=== PATIENT | male | born 1950 | race Caucasian/White ===

== ENCOUNTER 2017-08-27 18:15 | Inpatient (IN) | payer MEDICARE, BC ==
[2017-08-27] MEDS ORDERED: ACETAMINOPHEN TAB 500 MG TAB PO STA (18:42)
[2017-08-27] MEDS ORDERED: SODIUM CHLORIDE 0.9% 1,000 ML IV STA (18:42)
[2017-08-27] MEDS ORDERED: SODIUM CHLORIDE 0.9% 500 ML IV STA (18:42)
--- NOTE | 2017-08-27 18:50 | ED ---
General Adult HPI - General Source: patient, EMS, RN notes reviewed, old records reviewed Mode of arrival: EMS Limitations: no limitations <Dk Caraballo - Last Filed: 08/27/17 21:06> <Darwin Whaley - Last Filed: 08/27/17 22:52> - General Chief complaint: Fever Stated complaint: poss sepsis Time Seen by Provider: 08/27/17 18:22 - History of Present Illness Initial comments: Chief complaint and history of present illness this is a 66-year-old male brought to emergency by ambulance because is having difficulty getting up. He needed help getting out of his easy chair. His helped him. he needed her help to get to the toilet. He had difficulty getting off the toilet. EMS found him in the bathroom. He was not on the floor. The patient denies headache no chest pain no shortness of breath he did have a fever of 101.5. Denies any problems with urinating. (Dk Caraballo) - Related Data Home Medications Medication Instructions Recorded Confirmed Allopurinol [Zyloprim] 100 mg PO DAILY 04/22/15 08/27/17 Calcitriol [Rocaltrol] 0.25 mcg PO MOWEFR 04/22/15 08/27/17 Cholecalciferol [Vitamin D3] 5,000 unit PO DAILY 04/22/15 08/27/17 Gabapentin [Neurontin] 300 mg PO TID 04/22/15 08/27/17 Magnesium Oxide [Mag-Ox] 250 mg PO DAILY 04/22/15 08/27/17 Fish Oil/Dha/Epa [Fish Oil 1,200 1 cap PO DAILY 09/06/15 08/27/17 mg Fish Oil] HYDROcodone/APAP 10-325MG [[place] 1 tab PO TID PRN 09/06/15 08/27/17 10-325] Roxadustat 50mg-100mg 1 cap PO TUTHSA 09/06/15 08/27/17 Simvastatin [Zocor] 40 mg PO HS 09/06/15 08/27/17 Sodium Polystyrene Sulfon/Sorb 2 tbsp PO DAILY 09/06/15 08/27/17 [Kionex 15 gm/60 ml Suspension] Ferrous Sulfate [Iron (65 MG 325 mg PO DAILY 10/23/15 08/27/17 Elemental)] Insulin Glargine,Hum.rec.anlog 30 units SQ 1200 05/04/16 08/27/17 [[place]] hydrALAZINE HCL [Apresoline] 100 mg PO TID 05/04/16 08/27/17 Furosemide [Lasix] 40 mg PO BID 07/22/17 08/27/17 Aspirin 325 mg PO DAILY 08/27/17 08/27/17 amLODIPine [Norvasc] 5 mg PO BID 08/27/17 08/27/17 Allergies Allergy/AdvReac Type Severity Reaction Status Date / Time aspirin [From Anacin] Allergy Rash/Hives Verified 08/27/17 18:51 erythromycin base Allergy Unknown Verified 08/27/17 18:51 sulfamethoxazole AdvReac affects Verified 08/27/17 18:51 [From Bactrim] kidneys trimethoprim [From Bactrim] AdvReac Unknown Verified 08/27/17 18:51 Review of Systems ROS Other: All systems not noted in ROS Statement are negative. <Dk Caraballo - Last Filed: 08/27/17 21:06> ROS Other: All systems not noted in ROS Statement are negative. <Darwin Whaley - Last Filed: 08/27/17 22:52> ROS Statement: Those systems with pertinent positive or pertinent negative responses have been documented in the HPI. review of systems. Patient denies any headache denies difficulty urinating or bowel movements. The fever started yesterday. Denies getting a flu shot this year. Denies chest pain or shortness of breath. Just weakness. All systems reviewedPast medical problem CHF, COPD, insulin-dependent diabetes mellitus. Hyperlipidemia, hypertension osteoarthritis. Chronic renal disease. Skin disorder of unknown type. Sleep apnea with CPAP. History of gout and H. pylori. The patient's surgeries appendectomy R catheterization with one stent bilateral cataracts. Family history noncontributory. ALLERGIES to aspirin, erythromycin base, sulfamethoxazole. Nonsmoker nondrinker. (Dk Caraballo) Past Medical History Past Medical History: Heart Failure, COPD, Diabetes Mellitus, Hyperlipidemia, Hypertension, Osteoarthritis (OA), Renal Disease, Skin Disorder, Sleep Apnea/ CPAP/BIPAP Additional Past Medical History / Comment(s): Hx. GOUT, H PYLORI, ANEMIA, current umbilical HERNIA, kidneys functioning @40% per pt. wound left lower leg History of Any Multi-Drug Resistant Organisms: None Reported Date of last positivie culture/infection: 03/10/2014-C-diff MDRO Source:: Stool Past Surgical History: Appendectomy, Heart Catheterization With Stent Additional Past Surgical History / Comment(s): CATARACTS DANIELLE, HAD TESTICULAR SX FOR VARICOSED VEINS, PICC LINE SINCE REMOVED Past Anesthesia/Blood Transfusion Reactions: No Reported Reaction Date of Last Stent Placement:: 10/2015 Past Psychological History: No Psychological Hx Reported Smoking Status: Never smoker Past Alcohol Use History: None Reported Past Drug Use History: None Reported - Past Family History Father Family Medical History: COPD Additional Family Medical History / Comment(s): AT AGE 64- EMPHYSEMA(SMOKER ) Mother Family Medical History: Diabetes Mellitus, Hypertension Additional Family Medical History / Comment(s): LUPUS, LEG AMPUTATED. MOM IN HER 60'S <Dk Caraballo - Last Filed: 08/27/17 21:06> General Exam Limitations: no limitations <Dk Caraballo - Last Filed: 08/27/17 21:06> General appearance: alert, in no apparent distress Head exam: Present: atraumatic, normocephalic, normal inspection Eye exam: Present: normal appearance, PERRL, EOMI. Absent: scleral icterus, conjunctival injection, periorbital swelling ENT exam: Present: normal exam, mucous membranes moist Neck exam: Present: normal inspection. Absent: tenderness, meningismus, lymphadenopathy Respiratory exam: Present: normal lung sounds bilaterally. Absent: respiratory distress, wheezes, rales, rhonchi, stridor Cardiovascular Exam: Present: regular rate, normal rhythm, normal heart sounds. Absent: systolic murmur, diastolic murmur, rubs, gallop, clicks GI/Abdominal exam: Present: soft, tenderness (Epigastric), normal bowel sounds. Absent: distended, guarding, rebound, rigid Extremities exam: Present: normal inspection, full ROM, normal capillary refill. Absent: tenderness, pedal edema, joint swelling, calf tenderness Back exam: Present: normal inspection Neurological exam: Present: alert, oriented X3, CN II-XII intact Psychiatric exam: Present: normal affect, normal mood Skin exam: Present: warm, dry, intact, normal color. Absent: rash <Darwin Whaley - Last Filed: 08/27/17 22:52> - General Exam Comments Initial Comments: General: The patient is awake and alert, brought in by EMS because of general weakness. His 's help to get out of a chair. No specific complaints. Fever 2 days. Vital signs temperature 101.5 pulse 104 respiratory rate 18 pulse ox 94% on room air blood pressure 161/69. Eye: Pupils are equal, round and reactive to light, extra-ocular movements are intact ; there is normal conjunctiva bilaterally. No signs of icterus. Ears, nose, mouth and throat: There are moist mucous membranes and no oral lesions. Neck: The neck is supple, there is no tenderness , no anterior cervical lymphadenopathy. Cardiovascular: tachycardic heart rate, 104.. holosystolic murmur. Patient states this is a known entity. Respiratory: Lungs are clear to auscultation, respirations are non-labored, breath sounds are equal. No wheezes, stridor, rales, or rhonchi. Gastrointestinal: Soft, non-distended, non-tender abdomen without masses or organomegaly noted. There is no rebound or guarding present. No CVA tenderness. Bowel sounds are unremarkable.morbidly obese at 5ft 10in , 300 pounds Back: denies any rashes but he does have his left leg wrapped. Not on any antibiotics currently. Chronic cellulitis lower extremities in the past Musculoskeletal: Normal ROM, no tenderness, pedal edema There is no calf tenderness or swelling. Sensation intact. Pulses equal bilaterally 2+. Neurological: complains of weakness but is no evidence of any focal or lateralizing findings. All the move upper and lower extremities while in bed. Answer questions appropriately. But stated he was weak at home and needed his 's assistance to get out of the chair. Skin: skin warm no rash. Psychiatric: Cooperative, appropriate mood & affect, normal judgment. (Dk Caraballo) Course <Dk Caraballo - Last Filed: 08/27/17 21:06> <Darwin Whaley - Last Filed: 08/27/17 22:52> Vital Signs 08/27/17 08/27/17 08/27/17 18:16 19:59 20:00 Temperature 101.5 F H 100.2 F H 101.9 F H Pulse Rate 104 H 92 Respiratory 18 18 Rate Blood Pressure 161/69 107/51 O2 Sat by Pulse 94 L 96 Oximetry - Reevaluation(s) Reevaluation #1: 08/27/17 22:50 Patient given antibiotics, fever control, IV hydration (Darwin Whaley) Medical Decision Making - Lab Data Result diagrams: 08/27/17 19:05 08/27/17 19:05 <Dk Caraballo - Last Filed: 08/27/17 21:06> - Lab Data Result diagrams: 08/27/17 19:05 08/27/17 19:05 - Radiology Data Radiology results: report reviewed (Chest x-ray negative ultrasound positive cholecystitis), image reviewed <Darwin Whaley - Last Filed: 08/27/17 22:52> - Medical Decision Making Medical decision making; this is a 66-year-old male with difficulty getting out of his chair. His helped him to the toilet and had difficulty getting off the toilet. He's had a fever today. EMS brought him to the emergency room. Reports this has happened in the past. The patient's 5 foot 10 and weighs 300 pounds. Chest x-ray done AP and lateral view and reviewed by radiologist and his final impression is. No acute process. As read by Dr. Master Carlson Patient's labs show white count of 15,000 hemoglobin 11 hematocrit 34, urine clean no signs of infection. The patient's kidney function shows a BUN of 70 threatening 2.2 , GFR 30. Glucose 203. Flu a be negative. The patient's AST is elevated to 30 ALT 120 total bilirubin 1.9. These are significantly more elevated than they were one month ago. The patient have an ultrasound of the right upper quadrant. The patient will also started on Rocephin. Final disposition by Dr. Ortega (Dk Caraballo) 66-year-old ER for fever. Patient with positive cholecystitis. Patient to be admitted for gallbladder and surgical evaluation (Darwin Whaley) - Lab Data Lab Results 08/27/17 08/27/17 08/27/17 Range/Units 19:05 19:05 19:05 WBC 15.2 H (3.8-10.6) k/uL RBC 3.64 L (4.30-5.90) m/uL Hgb 11.2 L (13.0-17.5) gm/dL Hct 34.8 L (39.0-53.0) % MCV 95.7 (80.0-100.0) fL MCH 30.9 (25.0-35.0) pg MCHC 32.3 (31.0-37.0) g/dL RDW 14.5 (11.5-15.5) % Plt Count 204 (150-450) k/uL Neutrophils % 93 % Lymphocytes % 2 % Monocytes % 4 % Eosinophils % 1 % Basophils % 0 % Neutrophils # 14.2 H (1.3-7.7) k/uL Lymphocytes # 0.2 L (1.0-4.8) k/uL Monocytes # 0.6 (0-1.0) k/uL Eosinophils # 0.1 (0-0.7) k/uL Basophils # 0.0 (0-0.2) k/uL Sodium 139 (137-145) mmol/L Potassium 4.5 (3.5-5.1) mmol/L Chloride 100 (98-107) mmol/L Carbon Dioxide 28 (22-30) mmol/L Anion Gap 11 mmol/L BUN 70 H (9-20) mg/dL Creatinine 2.20 H (0.66-1.25) mg/dL Est GFR (MDRD) Af Amer 36 (>60 ml/min/1.73 sqM) Est GFR (MDRD) Non-Af 30 (>60 ml/min/1.73 sqM) Glucose 203 H (74-99) mg/dL Plasma Lactic Acid Anthony (0.7-2.0) mmol/L Calcium 9.3 (8.4-10.2) mg/dL Total Bilirubin 1.9 H (0.2-1.3) mg/dL AST 237 H (17-59) U/L ALT 121 H (21-72) U/L Alkaline Phosphatase 132 H (38-126) U/L Total Protein 6.7 (6.3-8.2) g/dL Albumin 3.8 (3.5-5.0) g/dL Urine Color Urine Appearance (Clear) Urine pH (5.0-8.0) Ur Specific [place] (1.001-1.035) Urine Protein (Negative) Urine Glucose (UA) (Negative) Urine Ketones (Negative) Urine Blood (Negative) Urine Nitrite (Negative) Urine Bilirubin (Negative) Urine Urobilinogen (<2.0) mg/dL Ur Leukocyte Esterase (Negative) Urine WBC (0-5) /hpf Urine Bacteria (None) /hpf Influenza Type A RNA Not Detected (Not Detectd) Influenza Type B (PCR) Not Detected (Not Detectd) 08/27/17 08/27/17 Range/Units 19:05 20:10 WBC (3.8-10.6) k/uL RBC (4.30-5.90) m/uL Hgb (13.0-17.5) gm/dL Hct (39.0-53.0) % MCV (80.0-100.0) fL MCH (25.0-35.0) pg MCHC (31.0-37.0) g/dL RDW (11.5-15.5) % Plt Count (150-450) k/uL Neutrophils % % Lymphocytes % % Monocytes % % Eosinophils % % Basophils % % Neutrophils # (1.3-7.7) k/uL Lymphocytes # (1.0-4.8) k/uL Monocytes # (0-1.0) k/uL Eosinophils # (0-0.7) k/uL Basophils # (0-0.2) k/uL Sodium (137-145) mmol/L Potassium (3.5-5.1) mmol/L Chloride (98-107) mmol/L Carbon Dioxide (22-30) mmol/L Anion Gap mmol/L BUN (9-20) mg/dL Creatinine (0.66-1.25) mg/dL Est GFR (MDRD) Af Amer (>60 ml/min/1.73 sqM) Est GFR (MDRD) Non-Af (>60 ml/min/1.73 sqM) Glucose (74-99) mg/dL Plasma Lactic Acid [place] 1.3 (0.7-2.0) mmol/L Calcium (8.4-10.2) mg/dL Total Bilirubin (0.2-1.3) mg/dL AST (17-59) U/L ALT (21-72) U/L Alkaline Phosphatase (38-126) U/L Total Protein (6.3-8.2) g/dL Albumin (3.5-5.0) g/dL Urine Color Yellow Urine Appearance Clear (Clear) Urine pH 5.5 (5.0-8.0) Ur Specific [place] 1.010 (1.001-1.035) Urine Protein 1+ H (Negative) Urine Glucose (UA) Trace H (Negative) Urine Ketones Negative (Negative) Urine Blood Negative (Negative) Urine Nitrite Negative (Negative) Urine Bilirubin Negative (Negative) Urine Urobilinogen <2.0 (<2.0) mg/dL Ur Leukocyte Esterase Negative (Negative) Urine WBC <1 (0-5) /hpf Urine Bacteria Rare H (None) /hpf Influenza Type A RNA (Not Detectd) Influenza Type B (PCR) (Not Detectd) Disposition <Dk Caraballo - Last Filed: 08/27/17 21:06> <Darwin Whaley - Last Filed: 08/27/17 22:52> Clinical Impression: Renal insufficiency, Diabetes mellitus, Acute cholecystitis, Cellulitis Disposition: ADMITTED IP TO THIS HOSP Condition: Fair Referrals: Papo Ford MD [Primary Care Provider] - 1-2 days
[2017-08-27 19:20] LABS: Basophils % (A) 0 %; Eosinophils # (A) 0.1 k/uL (0-0.7); Eosinophils % (A) 1 %; HCT 34.8 % (39.0-53.0); HGB 11.2 gm/dL (13.0-17.5); Lymphocytes # (A) 0.2 k/uL (1.0-4.8); Lymphocytes % (A) 2 %; MCH 30.9 pg (25.0-35.0); MCHC 32.3 g/dL (31.0-37.0); MCV 95.7 fL (80.0-100.0); Monocytes # (A) 0.6 k/uL (0-1.0); Monocytes % (A) 4 %; Neutrophils # (A) 14.2 k/uL (1.3-7.7); Neutrophils % (A) 93 %; Platelet Count 204 k/uL (150-450); RBC 3.64 m/uL (4.30-5.90); RDW 14.5 % (11.5-15.5); WBC 15.2 k/uL (3.8-10.6)
[2017-08-27 19:29] LABS: Albumin 3.8 g/dL (3.5-5.0); Calcium 9.3 mg/dL (8.4-10.2); Potassium 4.5 mmol/L (3.5-5.1); Total Bilirubin 1.9 mg/dL (0.2-1.3); Total Protein 6.7 g/dL (6.3-8.2)
--- NOTE | 2017-08-27 19:31 | XR ---
EXAMINATION: XR chest 2V DATE AND TIME: 08/27/2017 7:22 PM ORDERING PROVIDER: Dk Caraballo MD CLINICAL INDICATION: fever, weakness TECHNIQUE: AP and lateral COMPARISON: 05/04/2016 DESCRIPTION: The lungs are clear. The pleural spaces are negative. The cardiac silhouette is not enlarged. The mediastinal and pleural silhouettes are unremarkable. The skeletal structures are intact without focal findings. The soft tissues are unremarkable. IMPRESSION: NO ACUTE PROCESS.
[2017-08-27 20:27] LABS: Appearance,Urine Clear (Clear); Bacteria,Urine Rare /hpf; Bilirubin,Urine Negative (Negative); Blood,Urine Negative (Negative); Color,Urine Yellow; Glucose,Urine (UA) Trace (Negative); Ketones,Urine Negative (Negative); Leukocyte Esterase,Urine Negative (Negative); PH, Urine 5.5 (5.0-8.0); Protein,Urine 1+ (Negative); Urobilinogen,Urine <2.0 mg/dL (<2.0); WBC,Urine <1 /hpf (0-5)
[2017-08-27] MEDS ORDERED: PIPERACILLIN-TAZOBACTAM 3.375 GM in DEXTROSE/WATER 1 50ML.BAG IVPB STA (20:44)
[2017-08-27] MEDS ORDERED: cefTRIAXone IN SWFI 1,000 MG/10 ML SYRINGE IVP STA (20:59)
[2017-08-27] MEDS ORDERED: cefTRIAXone 1,000 MG VIAL (IM USE) IM STA (21:05)
[2017-08-27] MEDS ORDERED: AMPICILLIN-SULBACTAM 3 GM in SODIUM CHLORIDE 0.9% 100 ML IVPB STA (22:05)
--- NOTE | 2017-08-27 22:20 | US ---
EXAMINATION TYPE: US abdomen limited DATE OF EXAM: 08/27/2017 COMPARISON: NONE CLINICAL HISTORY: elevated liver enzymes. Elevated liver enzymes EXAM MEASUREMENTS: Liver Length: 16.6 cm Gallbladder Wall: 0.7 cm CBD: 0.4 cm Right Kidney: 10.6 x 5.2 x 5.3 cm *Technical limitations due to patient's body habitus and large amount of overlying bowel content Pancreas: Obscured by bowel gas Liver: visualized portions appear wnl Gallbladder: hydropic = 13.2cm, stone = 1.3cm, sludge, thickened GB wall Evidence for sonographic Mata's sign: no CBD: appears wnl as visualized Right Kidney: cystic areas lower pole, largest = 1.2 x 1.0 x 1.6cm IMPRESSION: Dilated gallbladder with gallstones. No dilated ducts. Findings are consistent with acute and chronic cholecystitis.
[2017-08-27] MEDS ORDERED: IBUPROFEN 600 MG TAB PO STA (23:15)
[2017-08-28 03:58] LABS: Hepatitis A Antibody IgM Non-Reactive (Non-Reactive); Hepatitis B Core IgM Reactive (Non-Reactive)
[2017-08-28] MEDS: AMPICILLIN-SULBACTAM 3 GM in SODIUM CHLORIDE 0.9% 100 ML IVPB SCH ×3 (06:00→18:05)
[2017-08-28] MEDS ORDERED: HYDROmorphone 0.5 MG/0.5 ML SYRINGE IVP STA (06:10)
[2017-08-28 07:41] LABS: Glucose,Whole Blood 141 mg/dL (75-99)
[2017-08-28 07:59] LABS: HCT 32.6 % (39.0-53.0); HGB 10.4 gm/dL (13.0-17.5); MCH 30.4 pg (25.0-35.0); MCHC 31.9 g/dL (31.0-37.0); MCV 95.5 fL (80.0-100.0); Mean Platelet Volume 7.2; Platelet Count 181 k/uL (150-450); RBC 3.41 m/uL (4.30-5.90); RDW 14.5 % (11.5-15.5); WBC 15.3 k/uL (3.8-10.6)
[2017-08-28 08:04] LABS: INR 1.2 (<1.2)
[2017-08-28 08:05] LABS: Partial Thromboplastin Time 23.9 sec (22.0-30.0); Prothrombin Time 11.4 sec (9.0-12.0)
[2017-08-28 08:24] LABS: Albumin 3.3 g/dL (3.5-5.0); Potassium 4.4 mmol/L (3.5-5.1); Total Bilirubin 2.8 mg/dL (0.2-1.3)
--- NOTE | 2017-08-28 09:02 | P.GSHP ---
History of Present Illness H&P Date: 08/28/17 Chief Complaint: Abdominal pain and fever The patient is a 66-year-old man who went to the emergency room Yesterday because he was having trouble getting up. He had not felt well for about 2 weeks. He's had some vague abdominal discomfort. He's also had a fever to 101 or 102 at home. The urine has been dark.. No nausea or vomiting. No previous gallbladder problems. No blood in the stool or dark tarry stool. No acholic stool. He's being followed up as outpatient in the wound clinic due to a nonhealing ulcer. - Review of Systems All systems: negative - Constitutional Constitutional: Reports fatigue, Reports fever, Reports lethargy - Gastrointestinal Comment: Umbilical hernia present for many years Gastrointestinal: Reports as per HPI Past Medical History Past Medical History: Heart Failure, COPD, Diabetes Mellitus, Hyperlipidemia, Hypertension, Osteoarthritis (OA), Renal Disease, Skin Disorder, Sleep Apnea/ CPAP/BIPAP Additional Past Medical History / Comment(s): Hx. GOUT, H PYLORI, ANEMIA, umbilical HERNIA, nonhealing ulcer History of Any Multi-Drug Resistant Organisms: None Reported Date of last positivie culture/infection: 03/10/2014-C-diff MDRO Source:: Stool Past Surgical History: Appendectomy, Heart Catheterization With Stent Additional Past Surgical History / Comment(s): CATARACTS DANIELLE, HAD TESTICULAR SX FOR VARICOSED VEINS, PICC LINE SINCE REMOVED Past Anesthesia/Blood Transfusion Reactions: No Reported Reaction Date of Last Stent Placement:: 10/2015 Past Psychological History: No Psychological Hx Reported Additional Psychological History / Comment(s): pt lives at home with his , works at [employer]. never served in the [employer] services. Smoking Status: Never smoker Past Alcohol Use History: None Reported Additional Past Alcohol Use History / Comment(s): Patient has been a lifelong nonsmoker. He denies any medical marijuana, marijuana, street drug use. He denies any alcohol abuse. Patient lives at home with his . They are in a second floor. apartment. No service no recent travel. Past Drug Use History: None Reported - Past Family History Father Family Medical History: COPD Additional Family Medical History / Comment(s): AT AGE 64- EMPHYSEMA(SMOKER ) Mother Family Medical History: Diabetes Mellitus, Hypertension Additional Family Medical History / Comment(s): LUPUS, LEG AMPUTATED. MOM IN HER 60'S Medications and Allergies Home Medications Medication Instructions Recorded Confirmed Type Allopurinol [Zyloprim] 100 mg PO DAILY 04/22/15 08/27/17 History Calcitriol [Rocaltrol] 0.25 mcg PO MOWEFR 04/22/15 08/27/17 History Cholecalciferol [Vitamin D3] 5,000 unit PO DAILY 04/22/15 08/27/17 History Gabapentin [Neurontin] 300 mg PO TID 04/22/15 08/27/17 History Magnesium Oxide [Mag-Ox] 250 mg PO DAILY 04/22/15 08/27/17 History Fish Oil/Dha/Epa [Fish Oil 1,200 1 cap PO DAILY 09/06/15 08/27/17 History mg Fish Oil] HYDROcodone/APAP 10-325MG [Dell 1 tab PO TID PRN 09/06/15 08/27/17 History 10-325] Roxadustat 50mg-100mg 1 cap PO TUTHSA 09/06/15 08/27/17 History Simvastatin [Zocor] 40 mg PO HS 09/06/15 08/27/17 History Sodium Polystyrene Sulfon/Sorb 2 tbsp PO DAILY 09/06/15 08/27/17 History [Kionex 15 gm/60 ml Suspension] Ferrous Sulfate [Iron (65 MG 325 mg PO DAILY 10/23/15 08/27/17 History Elemental)] Insulin Glargine,Hum.rec.anlog 30 units SQ 1200 05/04/16 08/27/17 History [Ronny [place]] hydrALAZINE HCL [Apresoline] 100 mg PO TID 05/04/16 08/27/17 History Furosemide [Lasix] 40 mg PO BID 07/22/17 08/27/17 History Aspirin 325 mg PO DAILY 08/27/17 08/27/17 History amLODIPine [Norvasc] 5 mg PO BID 08/27/17 08/27/17 History Allergies Allergy/AdvReac Type Severity Reaction Status Date / Time aspirin [From Anacin] Allergy Rash/Hives Verified 08/27/17 18:51 erythromycin base Allergy Unknown Verified 08/27/17 18:51 sulfamethoxazole AdvReac affects Verified 08/27/17 18:51 [From Bactrim] kidneys trimethoprim [From Bactrim] AdvReac Unknown Verified 08/27/17 18:51 Surgical - Exam Osteopathic Statement: *. No significant issues noted on an osteopathic structural exam other than those noted in the History and Physical/Consult. Vital Signs Temp Pulse Resp BP Pulse Ox 101.5 F H 104 H 18 161/69 94 L 08/27/17 18:16 08/27/17 18:16 08/27/17 18:16 08/27/17 18:16 08/27/17 18:16 - General well developed, well nourished, no distress - Eyes normal ocular movement, no icteric - ENT normal pinna, normal nares, normal mucosa - Neck trachea midline - Respiratory normal respiratory effort, clear to auscultation - Cardiovascular Rhythm: regular - Abdomen Abdomen: soft, tender (Mild right upper quadrant), bowel sounds Hernia: umbilical (Large nonreducible) - Neurologic no disoriented, no combative - Psychiatric oriented to time, oriented to person, oriented to place, speech is normal, memory intact Results - Labs 08/28/17 07:08 08/28/17 07:08 Abnormal Lab Results - Last 24 Hours (Table) 08/27/17 08/27/17 08/27/17 Range/Units 19:05 19:05 19:05 WBC 15.2 H (3.8-10.6) k/uL RBC 3.64 L (4.30-5.90) m/uL Hgb 11.2 L (13.0-17.5) gm/dL Hct 34.8 L (39.0-53.0) % Neutrophils # 14.2 H (1.3-7.7) k/uL Lymphocytes # 0.2 L (1.0-4.8) k/uL INR (<1.2) BUN 70 H (9-20) mg/dL Creatinine 2.20 H (0.66-1.25) mg/dL Glucose 203 H (74-99) mg/dL POC Glucose (mg/dL) (75-99) mg/dL Total Bilirubin 1.9 H (0.2-1.3) mg/dL AST 237 H (17-59) U/L ALT 121 H (21-72) U/L Alkaline Phosphatase 132 H (38-126) U/L Total Protein (6.3-8.2) g/dL Albumin (3.5-5.0) g/dL Urine Protein (Negative) Urine Glucose (UA) (Negative) Urine Bacteria (None) /hpf Hep B Core IgM Ab Reactive H (Non-Reactive) 08/27/17 08/28/17 08/28/17 Range/Units 20:10 07:08 07:08 WBC 15.3 H (3.8-10.6) k/uL RBC 3.41 L (4.30-5.90) m/uL Hgb 10.4 L (13.0-17.5) gm/dL Hct 32.6 L (39.0-53.0) % Neutrophils # (1.3-7.7) k/uL Lymphocytes # (1.0-4.8) k/uL INR (<1.2) BUN 62 H (9-20) mg/dL Creatinine 2.14 H (0.66-1.25) mg/dL Glucose 143 H (74-99) mg/dL POC Glucose (mg/dL) (75-99) mg/dL Total Bilirubin 2.8 H (0.2-1.3) mg/dL AST 162 H (17-59) U/L ALT 137 H (21-72) U/L Alkaline Phosphatase (38-126) U/L Total Protein 6.0 L (6.3-8.2) g/dL Albumin 3.3 L (3.5-5.0) g/dL Urine Protein 1+ H (Negative) Urine Glucose (UA) Trace H (Negative) Urine Bacteria Rare H (None) /hpf Hep B Core IgM Ab (Non-Reactive) 08/28/17 08/28/17 Range/Units 07:08 07:39 WBC (3.8-10.6) k/uL RBC (4.30-5.90) m/uL Hgb (13.0-17.5) gm/dL Hct (39.0-53.0) % Neutrophils # (1.3-7.7) k/uL Lymphocytes # (1.0-4.8) k/uL INR 1.2 H (<1.2) BUN (9-20) mg/dL Creatinine (0.66-1.25) mg/dL Glucose (74-99) mg/dL POC Glucose (mg/dL) 141 H (75-99) mg/dL Total Bilirubin (0.2-1.3) mg/dL AST (17-59) U/L ALT (21-72) U/L Alkaline Phosphatase (38-126) U/L Total Protein (6.3-8.2) g/dL Albumin (3.5-5.0) g/dL Urine Protein (Negative) Urine Glucose (UA) (Negative) Urine Bacteria (None) /hpf Hep B Core IgM Ab (Non-Reactive) Microbiology - Last 24 Hours (Table) 08/27/17 20:10 Urine Culture - Preliminary Urine,Catheterized Diabetes panel 08/27/17 08/28/17 Range/Units 19:05 07:08 Sodium 139 141 (137-145) mmol/L Potassium 4.5 4.4 (3.5-5.1) mmol/L Chloride 100 105 (98-107) mmol/L Carbon Dioxide 28 25 (22-30) mmol/L BUN 70 H 62 H (9-20) mg/dL Creatinine 2.20 H 2.14 H (0.66-1.25) mg/dL Glucose 203 H 143 H (74-99) mg/dL Calcium 9.3 9.0 (8.4-10.2) mg/dL AST 237 H 162 H (17-59) U/L ALT 121 H 137 H (21-72) U/L Alkaline Phosphatase 132 H 126 (38-126) U/L Total Protein 6.7 6.0 L (6.3-8.2) g/dL Albumin 3.8 3.3 L (3.5-5.0) g/dL Calcium panel 08/27/17 08/28/17 Range/Units 19:05 07:08 Calcium 9.3 9.0 (8.4-10.2) mg/dL Albumin 3.8 3.3 L (3.5-5.0) g/dL Pituitary panel 08/27/17 08/28/17 Range/Units 19:05 07:08 Sodium 139 141 (137-145) mmol/L Potassium 4.5 4.4 (3.5-5.1) mmol/L Chloride 100 105 (98-107) mmol/L Carbon Dioxide 28 25 (22-30) mmol/L BUN 70 H 62 H (9-20) mg/dL Creatinine 2.20 H 2.14 H (0.66-1.25) mg/dL Glucose 203 H 143 H (74-99) mg/dL Calcium 9.3 9.0 (8.4-10.2) mg/dL Adrenal panel 08/27/17 08/28/17 Range/Units 19:05 07:08 Sodium 139 141 (137-145) mmol/L Potassium 4.5 4.4 (3.5-5.1) mmol/L Chloride 100 105 (98-107) mmol/L Carbon Dioxide 28 25 (22-30) mmol/L BUN 70 H 62 H (9-20) mg/dL Creatinine 2.20 H 2.14 H (0.66-1.25) mg/dL Glucose 203 H 143 H (74-99) mg/dL Calcium 9.3 9.0 (8.4-10.2) mg/dL Total Bilirubin 1.9 H 2.8 H (0.2-1.3) mg/dL AST 237 H 162 H (17-59) U/L ALT 121 H 137 H (21-72) U/L Alkaline Phosphatase 132 H 126 (38-126) U/L Total Protein 6.7 6.0 L (6.3-8.2) g/dL Albumin 3.8 3.3 L (3.5-5.0) g/dL - Imaging US - abdomen: report reviewed Assessment and Plan (1) Acute cholecystitis Current Visit: Yes Status: Acute Code(s): K81.0 - ACUTE CHOLECYSTITIS SNOMED Code(s): 40451619 (2) Umbilical hernia without obstruction and without gangrene Current Visit: Yes Status: Acute Code(s): K42.9 - UMBILICAL HERNIA WITHOUT OBSTRUCTION OR GANGRENE SNOMED Code(s): 8814375 (3) Obesity, Class III, BMI 40-49.9 (morbid obesity) Current Visit: No Status: Acute Code(s): E66.01 - MORBID (SEVERE) OBESITY DUE TO EXCESS CALORIES SNOMED Code(s): 530972352 (4) Pulmonary hypertension due to COPD Current Visit: No Status: Acute Code(s): I27.2 - OTHER SECONDARY PULMONARY HYPERTENSION * DO NOT USE * SNOMED Code(s): 248163818 (5) Renal failure Current Visit: No Status: Acute Code(s): N19 - UNSPECIFIED KIDNEY FAILURE SNOMED Code(s): 14546092 (6) Venous insufficiency of left leg Current Visit: No Status: Acute Code(s): I87.2 - VENOUS INSUFFICIENCY ( CHRONIC) (PERIPHERAL) SNOMED Code(s): 498307342 (7) Hepatitis B core antibody positive Current Visit: Yes Status: Acute Code(s): R76.8 - OTHER SPECIFIED ABNORMAL IMMUNOLOGICAL FINDINGS IN SERUM SNOMED Code(s): 934329084 (8) Diabetes mellitus Current Visit: Yes Status: Acute Code(s): E11.9 - TYPE 2 DIABETES MELLITUS WITHOUT COMPLICATIONS SNOMED Code(s): 53682543 Plan: We'll continue the IV antibiotics today. Medicine is been consulted for medical clearance for surgery. DVT and ulcer prophylaxis. Control blood sugars. Will likely need further evaluation of the hepatitis B core antigen positivity
[2017-08-28 11:48] LABS: Glucose,Whole Blood 150 mg/dL (75-99)
[2017-08-28] MEDS: ENOXAPARIN 40 MG/0.4 ML SYRINGE SQ SCH (13:18)
[2017-08-28] MEDS ORDERED: ASPIRIN 325 MG TAB PO SCH (14:30)
[2017-08-28] MEDS: hydrALAZINE HCL 50 MG TAB PO SCH ×2 (15:42→19:46)
[2017-08-28] MEDS: MAGNESIUM OXIDE 400 MG TAB PO SCH (15:42)
[2017-08-28] MEDS: GABAPENTIN 300 MG CAP PO SCH ×2 (15:42→19:46)
[2017-08-28] MEDS: HYDROcodone/APAP 10-325MG 1 EACH TAB PO PRN (15:42)
[2017-08-28] MEDS: amLODIPine 5 MG TAB PO SCH ×2 (15:43→19:46)
[2017-08-28] MEDS: ALLOPURINOL 100 MG TAB PO SCH (15:43)
[2017-08-28] MEDS: [UNRECOGNIZED DRUG - OTHER] PO SCH (15:45)
[2017-08-28] MEDS: INSULIN DETEMIR 100 UNIT/ML 10 ML VIAL SQ SCH (15:45)
[2017-08-28] MEDS: SODIUM POLYSTYRENE SULFONATE 15 GM/60 ML BOTTLE PO SCH (15:45)
[2017-08-28] MEDS ORDERED: FUROSEMIDE 40 MG TAB PO SCH (16:00)
[2017-08-28 17:13] LABS: Glucose,Whole Blood 163 mg/dL (75-99)
[2017-08-28 17:29] LABS: Hemoglobin A1C 8.4 % (4.0-6.0)
[2017-08-28] MEDS: ATORVASTATIN 20 MG TAB PO SCH (19:46)
[2017-08-28 20:36] LABS: Glucose,Whole Blood 135 mg/dL (75-99)
[2017-08-28] MEDS: LORATADINE 10 MG TAB PO PRN (21:19)
--- NOTE | 2017-08-28 21:28 | P.HPIM ---
History of Present Illness H&P Date: 08/28/17 Chief Complaint: fever or chills History of presenting complaint: This is a very pleasant [address] sharma. Chronic stable medical conditions include diabetes, COPD, CHF from diastolic dysfunction, hypertension, hyperlipidemia, GERD, coronary artery disease with stent in 2016, chronic kidney disease. Patient does follow with Dr. Campuzano and the wound care center. Goes there every Wednesday for the last 5 weeks. Has a wound on his leg for quite some time. He is not sure if is getting better. Also had wound on the right leg which is actually improved. Patient presents with 2 days of fevers not feeling too well. Retired rundown. Normally has a bowel movement every 3 days. Had some vague abdominal pain. No obvious nausea vomiting. GEN.: Fever EYES: None HEENT: None NECK: None RESPIRATORY: None CARDIOVASCULAR: None GASTROINTESTINAL: As above GENITOURINARY: None MUSCULOSKELETAL: None LYMPHATICS: None HEMATOLOGICAL: None PSYCHIATRY: None NEUROLOGICAL: None DERMATOLOGICAL as above Past medical history: -Diabetes mellitus type 2, chronically on insulin -COPD -Chronic congestive heart failure from diastolic dysfunction, from underlying coronary artery disease -Essential hypertension -Hyperlipidemia -GERD -Coronary artery disease with stent in around 2015 -Chronic kidney disease -Chronic left lower extremity wound being followed by Dr. Campuzano Social history: . Retired from [employer]. No smoking. No alcohol. Family history: COPD Physical exam VITAL SIGNS: 101.9, 92, 18, 133/59, 96% room air GENERAL: BMI 44.3, well built, laying in bed tired appearing. EYES: Pupils equal. Conjunctiva normal. HEENT: External appearance of nose and ears normal, oral cavity grossly normal. NECK: JVD unable to assess; masses not palpable. HEART: First and second heart sounds are normal; no edema. LUNGS: Respiratory rate normal; decreased breath sounds. ABDOMEN: Soft, mild right upper quadrant tenderness, with mild Mata's sign, liver spleen not palpable, no masses palpable. LYMPHATICS: No lymph nodes palpable in the axilla and neck. PSYCH: Alert and oriented x3; mood and affect normal. NEUROLOGICAL: Cranial nerves grossly intact; no facial asymmetry, power and sensation grossly intact. EXTREMITIES: Dressing of the left lower extremity below the knee to to the feet Investigations: White count 15.3, hemoglobin 10.4, platelets 181, potassium 4.4, BUN 32, creatinine 2.14, glucose 143, Bilirubin 2.8 AST 162, AST 137 Labs on 07/26/2017 included BUN of 55, creatinine of 2 bilirubin was 0.5 and AST and ENT were normal on that date above Abdominal ultrasound-dilated gallbladder with gallstones Assessment: -Patient presents with fever and not feeling well some vague abdominal pain, with some right upper quadrant tenderness, and possibly Mata's sign. Abdominal ultrasound is showing gallbladder wall thickening and gallstones. Likely cause of his presentation. 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 Campuzano Plan: Patient is on IV Unasyn. Home medications are resumed. We'll keep a close and Accu-Cheks. Patient be made nothing by mouth after midnight. Seen by surgery Dr. Shafer. Patient stable from a cardiac standpoint to proceed for surgery. Continue Lipitor. We'll hold off the Lasix currently. Hydrate the patient gently. Keep a close eye the renal function. Care was discussed with the patient. Dr. Campuzano from [place] is also consulted. Patient is also on IV ceftriaxone. Past Medical History Past Medical History: Heart Failure, COPD, Diabetes Mellitus, Hyperlipidemia, Hypertension, Osteoarthritis (OA), Renal Disease, Skin Disorder, Sleep Apnea/ CPAP/BIPAP Additional Past Medical History / Comment(s): Hx. GOUT, H PYLORI, ANEMIA, umbilical HERNIA, nonhealing ulcer History of Any Multi-Drug Resistant Organisms: None Reported Date of last positivie culture/infection: 03/10/2014-C-diff MDRO Source:: Stool Past Surgical History: Appendectomy, Heart Catheterization With Stent Additional Past Surgical History / Comment(s): CATARACTS DANIELLE, HAD TESTICULAR SX FOR VARICOSED VEINS, PICC LINE SINCE REMOVED Past Anesthesia/Blood Transfusion Reactions: No Reported Reaction Date of Last Stent Placement:: 10/2015 Past Psychological History: No Psychological Hx Reported Additional Psychological History / Comment(s): pt lives at home with his , works at [employer]. never served in the [employer]. Smoking Status: Never smoker Past Alcohol Use History: None Reported Additional Past Alcohol Use History / Comment(s): Patient has been a lifelong nonsmoker. He denies any medical marijuana, marijuana, street drug use. He denies any alcohol abuse. Patient lives at home with his . They are in a second floor. apartment. No service no recent travel. Past Drug Use History: None Reported - Past Family History Father Family Medical History: COPD Additional Family Medical History / Comment(s): AT AGE 64- EMPHYSEMA(SMOKER ) Mother Family Medical History: Diabetes Mellitus, Hypertension Additional Family Medical History / Comment(s): LUPUS, LEG AMPUTATED. MOM IN HER 60'S Medications and Allergies Home Medications Medication Instructions Recorded Confirmed Type Allopurinol [Zyloprim] 100 mg PO DAILY 04/22/15 08/27/17 History Calcitriol [Rocaltrol] 0.25 mcg PO MOWEFR 04/22/15 08/27/17 History Cholecalciferol [Vitamin D3] 5,000 unit PO DAILY 04/22/15 08/27/17 History Gabapentin [Neurontin] 300 mg PO TID 04/22/15 08/27/17 History Magnesium Oxide [Mag-Ox] 250 mg PO DAILY 04/22/15 08/27/17 History Fish Oil/Dha/Epa [Fish Oil 1,200 1 cap PO DAILY 09/06/15 08/27/17 History mg Fish Oil] HYDROcodone/APAP 10-325MG [Bond 1 tab PO TID PRN 09/06/15 08/27/17 History 10-325] Roxadustat 50mg-100mg 1 cap PO TUTHSA 09/06/15 08/27/17 History Simvastatin [Zocor] 40 mg PO HS 09/06/15 08/27/17 History Sodium Polystyrene Sulfon/Sorb 2 tbsp PO DAILY 09/06/15 08/27/17 History [Kionex 15 gm/60 ml Suspension] Ferrous Sulfate [Iron (65 MG 325 mg PO DAILY 10/23/15 08/27/17 History Elemental)] Insulin Glargine,Hum.rec.anlog 30 units SQ 1200 05/04/16 08/27/17 History [Toujeo Solostar] hydrALAZINE HCL [Apresoline] 100 mg PO TID 05/04/16 08/27/17 History Furosemide [Lasix] 40 mg PO BID 07/22/17 08/27/17 History Aspirin 325 mg PO DAILY 08/27/17 08/27/17 History amLODIPine [Norvasc] 5 mg PO BID 08/27/17 08/27/17 History Allergies Allergy/AdvReac Type Severity Reaction Status Date / Time aspirin [From Anacin] Allergy Rash/Hives Verified 08/27/17 18:51 erythromycin base Allergy Unknown Verified 08/27/17 18:51 sulfamethoxazole AdvReac affects Verified 08/27/17 18:51 [From Bactrim] kidneys trimethoprim [From Bactrim] AdvReac Unknown Verified 08/27/17 18:51 Results CBC & Chem 7: 08/28/17 07:08 08/28/17 07:08
[2017-08-28] MEDS ORDERED: ACETAMINOPHEN TAB 500 MG TAB PO STA (22:56)
[2017-08-29] MEDS: AMPICILLIN-SULBACTAM 3 GM in SODIUM CHLORIDE 0.9% 100 ML IVPB SCH ×5 (00:26→23:08)
[2017-08-29] MEDS: LACTATED RINGERS 1,000 ML IV SCH ×3 (00:26→18:28)
[2017-08-29 05:03] LABS: Basophils % (A) 0 %; Eosinophils # (A) 0.1 k/uL (0-0.7); Eosinophils % (A) 1 %; HCT 34.8 % (39.0-53.0); HGB 10.9 gm/dL (13.0-17.5); Lymphocytes # (A) 0.7 k/uL (1.0-4.8); Lymphocytes % (A) 6 %; MCH 29.8 pg (25.0-35.0); MCHC 31.4 g/dL (31.0-37.0); Mean Platelet Volume 7.3; Monocytes # (A) 0.8 k/uL (0-1.0); Monocytes % (A) 7 %; Neutrophils # (A) 9.1 k/uL (1.3-7.7); Neutrophils % (A) 85 %; Platelet Count 204 k/uL (150-450); RBC 3.66 m/uL (4.30-5.90); RDW 14.6 % (11.5-15.5); WBC 10.8 k/uL (3.8-10.6)
[2017-08-29 05:28] LABS: Albumin 3.2 g/dL (3.5-5.0); Calcium 9.3 mg/dL (8.4-10.2); Potassium 4.4 mmol/L (3.5-5.1); Total Bilirubin 2.8 mg/dL (0.2-1.3); Total Protein 6.1 g/dL (6.3-8.2)
[2017-08-29 07:36] LABS: Glucose,Whole Blood 137 mg/dL (75-99)
--- NOTE | 2017-08-29 08:49 | P.GSCN ---
History of Present Illness Consult date: 08/29/17 Reason for Consult: Acute cholecystitis History of present illness: Patient presents to the ER with his family because he felt weak. He was also having some upper abdominal discomfort radiating to the right. He was febrile. He notices urine being dark in color. Denied nausea or vomiting. Appetite diminished. No history of known gallstones. Ultrasound of the gallbladder was obtained after his liver enzymes were noted to be elevated. He was febrile. Ultrasound showed a distended gallbladder with a thickened wall containing both stones and sludge. Common bile duct 3-4 mm. Blood cultures have shown gram- negative bacilli. He was scheduled for surgery this morning by Dr. Shafer however I know the patient's daughter quite well and she requested that I perform the surgery instead. I spoke with the patient today in detail. Of note patient's hepatitis B IgM came back positive. Consultation to GI is pending for evaluation of hepatitis. Patient also has a large asymptomatic hernia at the umbilicus that he states has not changed in years. He says he has no plans on repairing that thus far. Review of Systems The patient denies any acute changes in vision or hearing, no dysphagia or odynophagia, no chest pain or shortness of breath, no dysuria or hematuria, no headache, no runny nose, no rectal bleeding or melena, no unexplained weight loss, no pale stools, some dark urine Past Medical History Past Medical History: Heart Failure, COPD, Diabetes Mellitus, Hyperlipidemia, Hypertension, Osteoarthritis (OA), Renal Disease, Skin Disorder, Sleep Apnea/ CPAP/BIPAP Additional Past Medical History / Comment(s): Hx. GOUT, H PYLORI, ANEMIA, umbilical HERNIA, nonhealing ulcer History of Any Multi-Drug Resistant Organisms: None Reported Year Discovered:: 03/10/2014-C-diff MDRO Source:: Stool Past Surgical History: Appendectomy, Heart Catheterization With Stent Additional Past Surgical History / Comment(s): CATARACTS DANIELLE, HAD TESTICULAR SX FOR VARICOSED VEINS, PICC LINE SINCE REMOVED Past Anesthesia/Blood Transfusion Reactions: No Reported Reaction Date of Last Stent Placement:: 10/2015 Past Psychological History: No Psychological Hx Reported Additional Psychological History / Comment(s): pt lives at home with his , works at [employer]. never served in the [employer]. Smoking Status: Never smoker Past Alcohol Use History: None Reported Additional Past Alcohol Use History / Comment(s): Patient has been a lifelong nonsmoker. He denies any medical marijuana, marijuana, street drug use. He denies any alcohol abuse. Patient lives at home with his . They are in a second floor. apartment. No service no recent travel. Past Drug Use History: None Reported - Past Family History Father Family Medical History: COPD Additional Family Medical History / Comment(s): AT AGE 64- EMPHYSEMA(SMOKER ) Mother Family Medical History: Diabetes Mellitus, Hypertension Additional Family Medical History / Comment(s): LUPUS, LEG AMPUTATED. MOM IN HER 60'S Medications and Allergies Home Medications Medication Instructions Recorded Confirmed Type Allopurinol [Zyloprim] 100 mg PO DAILY 04/22/15 08/27/17 History Calcitriol [Rocaltrol] 0.25 mcg PO MOWEFR 04/22/15 08/27/17 History Cholecalciferol [Vitamin D3] 5,000 unit PO DAILY 04/22/15 08/27/17 History Gabapentin [Neurontin] 300 mg PO TID 04/22/15 08/27/17 History Magnesium Oxide [Mag-Ox] 250 mg PO DAILY 04/22/15 08/27/17 History Fish Oil/Dha/Epa [Fish Oil 1,200 1 cap PO DAILY 09/06/15 08/27/17 History mg Fish Oil] HYDROcodone/APAP 10-325MG [[place] 1 tab PO TID PRN 09/06/15 08/27/17 History 10-325] Roxadustat 50mg-100mg 1 cap PO TUTHSA 09/06/15 08/27/17 History Simvastatin [Zocor] 40 mg PO HS 09/06/15 08/27/17 History Sodium Polystyrene Sulfon/Sorb 2 tbsp PO DAILY 09/06/15 08/27/17 History [Kionex 15 gm/60 ml Suspension] Ferrous Sulfate [Iron (65 MG 325 mg PO DAILY 10/23/15 08/27/17 History Elemental)] Insulin Glargine,Hum.rec.anlog 30 units SQ 1200 05/04/16 08/27/17 History [[place] Solostkimberly] hydrALAZINE HCL [Apresoline] 100 mg PO TID 05/04/16 08/27/17 History Furosemide [Lasix] 40 mg PO BID 07/22/17 08/27/17 History Aspirin 325 mg PO DAILY 08/27/17 08/27/17 History amLODIPine [Norvasc] 5 mg PO BID 08/27/17 08/27/17 History Allergies Allergy/AdvReac Type Severity Reaction Status Date / Time aspirin [From Anacin] Allergy Rash/Hives Verified 08/27/17 18:51 erythromycin base Allergy Unknown Verified 08/27/17 18:51 sulfamethoxazole AdvReac affects Verified 08/27/17 18:51 [From Bactrim] kidneys trimethoprim [From Bactrim] AdvReac Unknown Verified 08/27/17 18:51 Surgical - Exam Vital Signs Temp Pulse Resp BP Pulse Ox 101.5 F H 104 H 18 161/69 94 L 08/27/17 18:16 08/27/17 18:16 08/27/17 18:16 08/27/17 18:16 08/27/17 18:16 Physical exam: General: Well-developed, well-nourished HEENT: Normocephalic, sclerae nonicteric Abdomen: Right upper quadrant tenderness, nondistended, large pedunculated nontender soft umbilical hernia that is incarcerated Extremities: Mild edema Neuro: Alert and oriented Results - Labs 08/29/17 04:45 08/29/17 04:45 Abnormal Lab Results - Last 24 Hours (Table) 08/28/17 08/28/17 08/28/17 Range/Units 07:08 11:46 17:12 WBC (3.8-10.6) k/uL RBC (4.30-5.90) m/uL Hgb (13.0-17.5) gm/dL Hct (39.0-53.0) % Neutrophils # (1.3-7.7) k/uL Lymphocytes # (1.0-4.8) k/uL BUN (9-20) mg/dL Creatinine (0.66-1.25) mg/dL Glucose (74-99) mg/dL POC Glucose (mg/dL) 150 H 163 H (75-99) mg/dL Hemoglobin A1c 8.4 H (4.0-6.0) % Total Bilirubin (0.2-1.3) mg/dL AST (17-59) U/L ALT (21-72) U/L Alkaline Phosphatase (38-126) U/L Total Protein (6.3-8.2) g/dL Albumin (3.5-5.0) g/dL 08/28/17 08/29/17 08/29/17 Range/Units 20:35 04:45 04:45 WBC 10.8 H (3.8-10.6) k/uL RBC 3.66 L (4.30-5.90) m/uL Hgb 10.9 L (13.0-17.5) gm/dL Hct 34.8 L (39.0-53.0) % Neutrophils # 9.1 H (1.3-7.7) k/uL Lymphocytes # 0.7 L (1.0-4.8) k/uL BUN 49 H (9-20) mg/dL Creatinine 2.16 H (0.66-1.25) mg/dL Glucose 118 H (74-99) mg/dL POC Glucose (mg/dL) 135 H (75-99) mg/dL Hemoglobin A1c (4.0-6.0) % Total Bilirubin 2.8 H (0.2-1.3) mg/dL AST 97 H (17-59) U/L ALT 109 H (21-72) U/L Alkaline Phosphatase 144 H (38-126) U/L Total Protein 6.1 L (6.3-8.2) g/dL Albumin 3.2 L (3.5-5.0) g/dL 08/29/17 Range/Units 07:14 WBC (3.8-10.6) k/uL RBC (4.30-5.90) m/uL Hgb (13.0-17.5) gm/dL Hct (39.0-53.0) % Neutrophils # (1.3-7.7) k/uL Lymphocytes # (1.0-4.8) k/uL BUN (9-20) mg/dL Creatinine (0.66-1.25) mg/dL Glucose (74-99) mg/dL POC Glucose (mg/dL) 137 H (75-99) mg/dL Hemoglobin A1c (4.0-6.0) % Total Bilirubin (0.2-1.3) mg/dL AST (17-59) U/L ALT (21-72) U/L Alkaline Phosphatase (38-126) U/L Total Protein (6.3-8.2) g/dL Albumin (3.5-5.0) g/dL Microbiology - Last 24 Hours (Table) 08/27/17 20:10 Urine Culture - Final Urine,Catheterized 08/27/17 19:05 Blood Culture Gram Stain - Preliminary Blood Blood Culture - Preliminary Gram Neg Bacilli 08/27/17 19:05 Blood Culture - Final Blood Diabetes panel 08/28/17 08/29/17 Range/Units 07:08 04:45 Sodium 143 (137-145) mmol/L Potassium 4.4 (3.5-5.1) mmol/L Chloride 106 (98-107) mmol/L Carbon Dioxide 25 (22-30) mmol/L BUN 49 H (9-20) mg/dL Creatinine 2.16 H (0.66-1.25) mg/dL Glucose 118 H (74-99) mg/dL Hemoglobin A1c 8.4 H (4.0-6.0) % Calcium 9.3 (8.4-10.2) mg/dL AST 97 H (17-59) U/L ALT 109 H (21-72) U/L Alkaline Phosphatase 144 H (38-126) U/L Total Protein 6.1 L (6.3-8.2) g/dL Albumin 3.2 L (3.5-5.0) g/dL Calcium panel 08/29/17 Range/Units 04:45 Calcium 9.3 (8.4-10.2) mg/dL Albumin 3.2 L (3.5-5.0) g/dL Pituitary panel 08/29/17 Range/Units 04:45 Sodium 143 (137-145) mmol/L Potassium 4.4 (3.5-5.1) mmol/L Chloride 106 (98-107) mmol/L Carbon Dioxide 25 (22-30) mmol/L BUN 49 H (9-20) mg/dL Creatinine 2.16 H (0.66-1.25) mg/dL Glucose 118 H (74-99) mg/dL Calcium 9.3 (8.4-10.2) mg/dL Adrenal panel 08/29/17 Range/Units 04:45 Sodium 143 (137-145) mmol/L Potassium 4.4 (3.5-5.1) mmol/L Chloride 106 (98-107) mmol/L Carbon Dioxide 25 (22-30) mmol/L BUN 49 H (9-20) mg/dL Creatinine 2.16 H (0.66-1.25) mg/dL Glucose 118 H (74-99) mg/dL Calcium 9.3 (8.4-10.2) mg/dL Total Bilirubin 2.8 H (0.2-1.3) mg/dL AST 97 H (17-59) U/L ALT 109 H (21-72) U/L Alkaline Phosphatase 144 H (38-126) U/L Total Protein 6.1 L (6.3-8.2) g/dL Albumin 3.2 L (3.5-5.0) g/dL Assessment and Plan (1) Acute cholecystitis Narrative/Plan: Agree with diagnostic impression of acute calculus cholecystitis. Liver enzyme elevation may be on the basis of Morisi syndrome or hepatitis B infection. Preoperative ERCP discussed with the patient is an option although I believe the overall yield to be low. The patient I've agreed to proceed with laparoscopic, possible open cholecystectomy. Possible liver biopsy and possible cholangiogram if intraoperative findings suggest this to be required. The possibility of a retained common bile duct stone was discussed. Postoperative ERCP remains an option if liver enzymes remain elevated and hepatitis workup comes back negative. As it relates to the patient's large umbilical hernia this is asymptomatic. This appears to be a hernia requiring mesh for proper repair. We discussed possibly avoiding hernia altogether rather than closing the fascia primarily at this time. Additional risks of bleeding, infection, bile duct injury, biloma, conversion to an open procedure, retained common bile duct stone, respiratory and cardiac complications, need for future definitive repair of umbilical hernia were discussed. He understands and wished to proceed. Current Visit: Yes Status: Acute Code(s): K81.0 - ACUTE CHOLECYSTITIS SNOMED Code(s): 16136406
[2017-08-29] MEDS ORDERED: NON-FORMULARY DRUG (Fish Oil/Dha/Epa [Fish Oil 1,200 Mg Fish Oil] 1 CAP) PO SCH (09:00)
[2017-08-29] MEDS: amLODIPine 5 MG TAB PO SCH ×2 (09:07→23:07)
[2017-08-29] MEDS: ALLOPURINOL 100 MG TAB PO SCH (09:07)
[2017-08-29] MEDS: ASPIRIN 81 MG PO SCH (09:07)
[2017-08-29] MEDS: FERROUS SULFATE 325 MG TAB PO SCH (09:07)
[2017-08-29] MEDS: CHOLECALCIFEROL 1,000 UNIT TAB PO SCH (09:07)
[2017-08-29] MEDS: SODIUM POLYSTYRENE SULFONATE 15 GM/60 ML BOTTLE PO SCH (09:08)
[2017-08-29] MEDS: hydrALAZINE HCL 50 MG TAB PO SCH ×3 (09:08→23:07)
[2017-08-29] MEDS: GABAPENTIN 300 MG CAP PO SCH ×3 (09:08→23:07)
[2017-08-29] MEDS: MAGNESIUM OXIDE 400 MG TAB PO SCH (09:08)
--- NOTE | 2017-08-29 09:41 | P.PN ---
Progress Note - Text Progress Note Date: 08/29/17 The patient's family had requested Dr. Vela for surgical care. The case was discussed with him last night. Dr. Vela will take over further care.
[2017-08-29] MEDS ORDERED: fentaNYL (PF) 50 MCG/ML 2 ML AMP ONE (10:38)
[2017-08-29] MEDS ORDERED: ePHEDrine SULFATE/0.9% NACL/PF 50 MG/5 ML SYRINGE IV ONE (10:38)
[2017-08-29] MEDS ORDERED: NEOSTIGMINE 1 MG/ML 10 ML VIAL ONE (10:38)
[2017-08-29] MEDS ORDERED: SUCCINYLCHOLINE CHLORIDE 100 MG/5 ML SYR IV ONE (10:38)
[2017-08-29] MEDS ORDERED: LIDOCAINE 1% INJ 10MG/ML (20 ML MDV) ONE (10:38)
[2017-08-29] MEDS ORDERED: IV FLUID CONTINUATION 1,000 ML IV ONE (10:38)
[2017-08-29] MEDS ORDERED: MIDAZOLAM 2 MG/2 ML VIAL ONE (10:38)
[2017-08-29] MEDS ORDERED: GLYCOPYRROLATE 0.2 MG/ML 2 ML VIAL ONE (10:38)
[2017-08-29] MEDS ORDERED: PROPOFOL 10 MG/ML 20 ML VIAL IV ONE (10:38)
[2017-08-29] MEDS ORDERED: BUPIVACAINE (PF) 0.5% 30 ML VIAL SQ ONE ×2 (10:54→10:58)
[2017-08-29] MEDS: ENOXAPARIN 40 MG/0.4 ML SYRINGE SQ SCH (11:11)
[2017-08-29] MEDS ORDERED: LACTATED RINGERS 1,000 ML IV ONE (11:41)
--- NOTE | 2017-08-29 11:48 | P.OP ---
Date of Procedure: 08/29/17 Procedure(s) Performed: PREOPERATIVE DIAGNOSIS: Acute calculus cholecystitis POSTOPERATIVE DIAGNOSIS: Same PROCEDURE: Laparoscopic cholecystectomy SURGEON: Dane EBL: Minimal see anesthesia record ANESTHESIA: Gen. COMPLICATIONS: None OPERATIVE PROCEDURE: The patient was brought and placed on the operating room table in the supine position. The patient was placed under general anesthesia at that time. The abdomen was prepped and draped in the usual sterile fashion. A small horizontal incision was made just to the right and superior to the umbilical hernia site. Using the optical trocar entrance into the perineal cavity occurred without difficulty. Insufflation took place up to 15 mmHg. 2 additional 5 mm trochars were placed in the right upper quadrant under direct visualization. A 12 mm trocar was advanced into the epigastric incision site. The gallbladder was retracted superiorly and laterally. The gallbladder was acutely inflamed with edematous wall. There were no gangrenous changes. The liver itself appeared free of cirrhotic changes. The peritoneum overlying the infundibulum was bluntly dissected. The patient's cystic duct was visualized. The junction between the cystic duct common and hepatic duct was identified. The cystic duct was then divided after placement of 3 12 mm clips on the patient 's side and one on the specimen side. The cystic artery was identified and clipped as well. A small vessel was seen along the gallbladder fossa and clipped as well. The gallbladder was then removed from the liver bed using electrocautery. The gallbladder was then removed from the epigastric trocar site with an Endo Catch bag. The gallbladder fossa was irrigated with saline. There was no evidence of any bleeding or biliary drainage seen. The trochars were then removed. The fascia at the 12 mm site was closed using a running 0 Vicryl stitch. The skin at all 4 sites was closed using a 4-0 Monocryl stitch. At the end of this procedure the sponge and needle counts were correct. DISPOSITION: Stable to the recovery room
[2017-08-29 12:16] LABS: Glucose,Whole Blood 162 mg/dL (75-99)
[2017-08-29] MEDS: HYDROcodone/APAP 10-325MG 1 EACH TAB PO PRN (14:15)
[2017-08-29] MEDS: INSULIN DETEMIR 100 UNIT/ML 10 ML VIAL SQ SCH (14:17)
[2017-08-29 17:30] LABS: Glucose,Whole Blood 190 mg/dL (75-99)
--- NOTE | 2017-08-29 19:31 | P.PN ---
Progress Note - Text Progress Note Date: 08/29/17 Presenting complaint fever Interval history: This is a patient with chronic left lower extremity wound. Presented with fever found to have acute cholecystitis and had surgical intervention done by Dr. Vela. at the bedside. No nausea vomiting. Pain score controlled. Lower extremity dressing with radha Campuzano. Wounds healing well according to him. And the Review of systems: Was done for constitutional, cardiovascular, GI, pulmonary. relevant finding as above Current medications are reviewed that included: IV Unasyn, IV fluids Physical exam VITAL SIGNS: 98 7, 77, 20, 141/62, 91% room air GENERAL: laying in bed tired appearing. EYES: Pupils equal. Conjunctiva normal. HEENT: External appearance of nose and ears normal, oral cavity grossly normal. NECK: JVD unable to assess; masses not palpable. HEART: First and second heart sounds are normal; no edema. LUNGS: Respiratory rate normal; decreased breath sounds. ABDOMEN: Soft, mild tenderness, dressing over the incision site, liver spleen not palpable, no masses palpable. PSYCH: Alert and oriented x3; mood and affect normal. EXTREMITIES: Dressing of the left lower extremity below the knee to to the feet Investigations: White count 10.8, hemoglobin 10.9, BUN 49, creatinine 2.16 Blood cultures showing gram-negative bacilli Assessment: -Acute cholecystitis, causing sepsis with blood cultures growing gram-negative bacilli followed by cholecystectomy -Diabetes mellitus type 2, chronically on insulin -COPD -Chronic congestive heart failure from diastolic dysfunction EF of 55-60%, from underlying coronary artery disease -Essential hypertension -Hyperlipidemia -GERD -Coronary artery disease with stent in around 2016 -Chronic kidney disease, stage III 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 Campuzano Plan: Continue with current antibiotic. Other medication treatment plan. Diet to be advanced per surgery. Care was discussed with the patient and . Questions were answered. Patient getting its spiked a fever this evening
[2017-08-29 20:56] LABS: Glucose,Whole Blood 189 mg/dL (75-99)
[2017-08-29] MEDS: ACETAMINOPHEN IV (For NPO) 1,000 MG in EMPTY BAG 1 BAG IVPB PRN (21:56)
[2017-08-29] MEDS: ATORVASTATIN 20 MG TAB PO SCH (23:07)
--- NOTE | 2017-08-29 23:35 | P.CONS ---
History of Present Illness - Reason for Consult Consult date: 08/29/17 - Chief Complaint Abdominal pain and fever altered mental status - History of Present Illness 66-year-old male well-known to the infectious disease service for the care of the patient related to his recurrent lesions to the lower extremities and bouts of cellulitis. The patient's brought him emergency center because of patient had become ill with some altered mental status, generalized weakness, nausea abdominal pain and about of emesis. Because of this he was evaluated in emergency center and had evidence of sepsis and evidence of abnormal liver function tests in consequently ultrasound was performed that showed evidence of the significant cholecystitis and leukocytosis. He was evaluated general surgery and was taken to Her room today for the laparoscopic cholecystectomy. Patient is without evidence of possible cultures gram- negative bacilli and constantly infectious diseases consultation was requested as well as request for some care to the left lower extremity chronic venous stasis ulcerations. The patient's postoperative and is still having some nausea. He's had significant fever slightly improved at this time. He feels poorly and his mentation is poor. Review of Systems HEENT:Denies headache or acute visual change. Denies sinus or mouth discomforts. Denies neck stiffness or pain. Denies significant oral cavity pain. Denies difficulty on swallowing. Lungs: Denies significant shortness of breath, cough, sputum production, or hemoptysis. Cardiovascular: Denies significant shortness of breath, chest pain, chest wall pain, orthopnea, dyspnea on exertion, syncope Gastrointestinal: As per the HPI had some abdominal pain and nausea and fever Musculoskeletal: denies significant myalgias or arthralgias. No new joint swelling. Denies new back pain. Skin: As per the HPI Neuro: Denies headache or visual change. Denies any new onset weakness or difficulty with ambulation. Denies falls or seizures. Psychiatric:Denies anxiety or depression. Endocrine: Denies significant fatigue, denies significant weight loss or weight gain. Past Medical History Past Medical History: Heart Failure, COPD, Diabetes Mellitus, Hyperlipidemia, Hypertension, Osteoarthritis (OA), Renal Disease, Skin Disorder, Sleep Apnea/ CPAP/BIPAP Additional Past Medical History / Comment(s): Hx. GOUT, H PYLORI, ANEMIA, umbilical HERNIA, nonhealing ulcer History of Any Multi-Drug Resistant Organisms: None Reported Year Discovered:: 03/10/2014-C-diff MDRO Source:: Stool Past Surgical History: Appendectomy, Heart Catheterization With Stent Additional Past Surgical History / Comment(s): CATARACTS DANIELLE, HAD TESTICULAR SX FOR VARICOSED VEINS, PICC LINE SINCE REMOVED Past Anesthesia/Blood Transfusion Reactions: No Reported Reaction Date of Last Stent Placement:: 10/2015 Past Psychological History: No Psychological Hx Reported Additional Psychological History / Comment(s): pt lives at home with his , retired from the [employer], never served in the armed services. No animals in the home Smoking Status: Never smoker Past Alcohol Use History: None Reported Additional Past Alcohol Use History / Comment(s): Patient has been a lifelong nonsmoker. He denies any medical marijuana, marijuana, street drug use. He denies any alcohol abuse. Patient lives at home with his . They are in a second floor. apartment. No service no recent travel. Past Drug Use History: None Reported - Past Family History Father Family Medical History: COPD Additional Family Medical History / Comment(s): AT AGE 64- EMPHYSEMA(SMOKER ) Mother Family Medical History: Diabetes Mellitus, Hypertension Additional Family Medical History / Comment(s): LUPUS, LEG AMPUTATED. MOM IN HER 60'S Medications and Allergies Home Medications and Allergies Comment(s): Current Medications Hydrocodone Bitart/Acetaminophen ([place] 10) 1 each PO TID PRN PRN Reason: moderate Pain Last Admin: 08/29/17 14:15 Dose: 1 each Allopurinol (Zyloprim) 100 mg PO DAILY [facility] Last Admin: 08/29/17 09:07 Dose: Not Given Amlodipine Besylate (Norvasc) 5 mg PO BID [facility] Last Admin: 08/29/17 23:07 Dose: 5 mg Aspirin (Aspirin) 81 mg PO DAILY [facility] Last Admin: 08/29/17 09:07 Dose: Not Given Atorvastatin Calcium (Lipitor) 20 mg PO HS [facility] Last Admin: 08/29/17 23:07 Dose: 20 mg Calcitriol (Rocaltrol) 0.25 mcg PO MOWEFR [facility] Cholecalciferol (Vitamin D3) 5,000 unit PO DAILY [facility] Last Admin: 08/29/17 09:07 Dose: Not Given Enoxaparin Sodium (Lovenox) 40 mg SQ DAILY [facility] Last Admin: 08/29/17 11:11 Dose: Not Given Ferrous Sulfate (Feosol) 325 mg PO DAILY [facility] Last Admin: 08/29/17 09:07 Dose: Not Given Gabapentin (Neurontin) 300 mg PO TID [facility] Last Admin: 08/29/17 23:07 Dose: 300 mg Hydralazine HCl (Apresoline) 100 mg PO TID [facility] Last Admin: 08/29/17 23:07 Dose: 100 mg Lactated Ringer's (Lactated Ringers) 1,000 mls @ 100 mls/hr IV .Q10H [facility] Last Admin: 08/29/17 18:28 Dose: 100 mls/hr Acetaminophen 1,000 mg/ IV (Solution) 100 mls @ 400 mls/hr IVPB Q6HR PRN PRN Reason: Fever and/or Mild Pain Stop: 08/30/17 18:14 Last Admin: 08/29/17 21:56 Dose: 400 mls/hr Piperacillin/Tazobactam/ (Dextrose 3.375 gm/ IV Solution) 50 mls @ 12.5 mls/hr IVPB Q8HR [facility] Insulin Detemir (Levemir) 30 unit SQ 1200 [facility] Last Admin: 08/29/17 14:17 Dose: Not Given Loratadine (Claritin) 10 mg PO DAILY PRN PRN Reason: Allergy Symptoms Last Admin: 08/28/17 21:19 Dose: 10 mg Magnesium Oxide (Mag-Ox) 200 mg PO DAILY [facility] Last Admin: 08/29/17 09:08 Dose: Not Given Non-Formulary Medication (Roxadustat 50mg-100mg) 1 cap PO TUTHSA [facility] Last Admin: 08/28/17 15:45 Dose: Not Given Ondansetron HCl (Zofran) 4 mg IVP Q6HR PRN PRN Reason: Nausea And Vomiting Sodium Polystyrene Sulfonate (Kayexalate) 7.5 gm PO DAILY [facility] Last Admin: 08/29/17 09:08 Dose: Not Given Home Medications Medication Instructions Recorded Confirmed Type Allopurinol [Zyloprim] 100 mg PO DAILY 04/22/15 08/27/17 History Calcitriol [Rocaltrol] 0.25 mcg PO MOWEFR 04/22/15 08/27/17 History Cholecalciferol [Vitamin D3] 5,000 unit PO DAILY 04/22/15 08/27/17 History Gabapentin [Neurontin] 300 mg PO TID 04/22/15 08/27/17 History Magnesium Oxide [Mag-Ox] 250 mg PO DAILY 04/22/15 08/27/17 History Fish Oil/Dha/Epa [Fish Oil 1,200 1 cap PO DAILY 09/06/15 08/27/17 History mg Fish Oil] HYDROcodone/APAP 10-325MG [[place] 1 tab PO TID PRN 09/06/15 08/27/17 History 10-325] Roxadustat 50mg-100mg 1 cap PO TUTHSA 09/06/15 08/27/17 History Simvastatin [Zocor] 40 mg PO HS 09/06/15 08/27/17 History Sodium Polystyrene Sulfon/Sorb 2 tbsp PO DAILY 09/06/15 08/27/17 History [Kionex 15 gm/60 ml Suspension] Ferrous Sulfate [Iron (65 MG 325 mg PO DAILY 10/23/15 08/27/17 History Elemental)] Insulin Glargine,Hum.rec.anlog 30 units SQ 1200 05/04/16 08/27/17 History [Ronny [place]] hydrALAZINE HCL [Apresoline] 100 mg PO TID 05/04/16 08/27/17 History Furosemide [Lasix] 40 mg PO BID 07/22/17 08/27/17 History Aspirin 325 mg PO DAILY 08/27/17 08/27/17 History amLODIPine [Norvasc] 5 mg PO BID 08/27/17 08/27/17 History Allergies Allergy/AdvReac Type Severity Reaction Status Date / Time aspirin [From Anacin] Allergy Rash/Hives Verified 08/27/17 18:51 erythromycin base Allergy Unknown Verified 08/27/17 18:51 sulfamethoxazole AdvReac affects Verified 08/27/17 18:51 [From Bactrim] kidneys trimethoprim [From Bactrim] AdvReac Unknown Verified 08/27/17 18:51 Physical Exam Vitals: Vital Signs Temp Pulse Resp BP Pulse Ox 08/29/17 23:00 102.7 F H 105 H 16 157/75 94 L 08/29/17 20:12 103.5 F H 08/29/17 18:49 101.5 F H 08/29/17 16:00 100 08/29/17 15:55 97.8 F 100 20 148/70 92 L 08/29/17 12:15 75 16 153/66 95 08/29/17 12:00 98.7 F 77 20 141/62 91 L 08/29/17 11:55 98.6 F 84 16 174/72 98 08/29/17 06:43 100.4 F H 84 16 126/78 93 L Intake and Output 08/29/17 08/29/17 08/30/17 14:59 22:59 06:59 Intake Total 600 Output Total 10 Balance 590 Intake: IV 400 Oral 200 Output: Estimated Blood Loss 10 Other: # Voids 2 2 66-year-old male who is feeling poorly, postoperative, having fevers HEENT: Anicteric conjunctiva are pink and moist nasal mucosa grossly intact without significant lesions, there is no thrush. Neck: The neck is supple without significant lymphadenopathy or thyromegaly. Lungs: Good bilateral air entry without significant crackles or wheezing. There is no significant bronchial sounds. There is no egophony or dullness. Heart: Regular rate and rhythm with an audible S1-S2, no S3 loud S4. There is no significant murmur click or rub, PMI was nondisplaced. Abdomen: Mildly distended and obese the chronic hernia umbilical is without change. The abdomen is tender especially at the surgical site where the drain is in place. Extremities: The upper extremities have excellent pulses they are symmetric, no significant petechiae or telangiectasia. No splinter hemorrhages were noted. The lower extremities are free from significant edema. The peripheral pulses were 2+ and symmetric. Neuro: Patient is awake and alert but is postoperative and still has some anesthesia effects Results CBC & Chem 7: 08/29/17 04:45 08/29/17 04:45 Labs: Abnormal Lab Results - Last 24 Hours (Table) 08/28/17 08/29/17 08/29/17 Range/Units 07:08 04:45 04:45 WBC 10.8 H (3.8-10.6) k/uL RBC 3.66 L (4.30-5.90) m/uL Hgb 10.9 L (13.0-17.5) gm/dL Hct 34.8 L (39.0-53.0) % Neutrophils # 9.1 H (1.3-7.7) k/uL Lymphocytes # 0.7 L (1.0-4.8) k/uL BUN 49 H (9-20) mg/dL Creatinine 2.16 H (0.66-1.25) mg/dL Glucose 118 H (74-99) mg/dL POC Glucose (mg/dL) (75-99) mg/dL Hemoglobin A1c 8.4 H (4.0-6.0) % Total Bilirubin 2.8 H (0.2-1.3) mg/dL AST 97 H (17-59) U/L ALT 109 H (21-72) U/L Alkaline Phosphatase 144 H (38-126) U/L Total Protein 6.1 L (6.3-8.2) g/dL Albumin 3.2 L (3.5-5.0) g/dL 08/29/17 08/29/17 08/29/17 Range/Units 07:14 12:07 17:15 WBC (3.8-10.6) k/uL RBC (4.30-5.90) m/uL Hgb (13.0-17.5) gm/dL Hct (39.0-53.0) % Neutrophils # (1.3-7.7) k/uL Lymphocytes # (1.0-4.8) k/uL BUN (9-20) mg/dL Creatinine (0.66-1.25) mg/dL Glucose (74-99) mg/dL POC Glucose (mg/dL) 137 H 162 H 190 H (75-99) mg/dL Hemoglobin A1c (4.0-6.0) % Total Bilirubin (0.2-1.3) mg/dL AST (17-59) U/L ALT (21-72) U/L Alkaline Phosphatase (38-126) U/L Total Protein (6.3-8.2) g/dL Albumin (3.5-5.0) g/dL 08/29/17 Range/Units 20:27 WBC (3.8-10.6) k/uL RBC (4.30-5.90) m/uL Hgb (13.0-17.5) gm/dL Hct (39.0-53.0) % Neutrophils # (1.3-7.7) k/uL Lymphocytes # (1.0-4.8) k/uL BUN (9-20) mg/dL Creatinine (0.66-1.25) mg/dL Glucose (74-99) mg/dL POC Glucose (mg/dL) 189 H (75-99) mg/dL Hemoglobin A1c (4.0-6.0) % Total Bilirubin (0.2-1.3) mg/dL AST (17-59) U/L ALT (21-72) U/L Alkaline Phosphatase (38-126) U/L Total Protein (6.3-8.2) g/dL Albumin (3.5-5.0) g/dL Microbiology - Last 24 Hours (Table) 08/27/17 19:05 Blood Culture Gram Stain - Final Blood Blood Culture - Final Escherichia coli 08/27/17 20:10 Urine Culture - Final Urine,Catheterized Laboratory Results WBC 10.8 k/uL (3.8-10.6) H 08/29/17 04:45 RBC 3.66 m/uL (4.30-5.90) L 08/29/17 04:45 Hgb 10.9 gm/dL (13.0-17.5) L 08/29/17 04:45 Hct 34.8 % (39.0-53.0) L 08/29/17 04:45 MCV 95.0 fL (80.0-100.0) 08/29/17 04:45 MCH 29.8 pg (25.0-35.0) 08/29/17 04:45 MCHC 31.4 g/dL (31.0-37.0) 08/29/17 04:45 RDW 14.6 % (11.5-15.5) 08/29/17 04:45 Plt Count 204 k/uL (150-450) 08/29/17 04:45 Neutrophils % 85 % 08/29/17 04:45 Lymphocytes % 6 % 08/29/17 04:45 Monocytes % 7 % 08/29/17 04:45 Eosinophils % 1 % 08/29/17 04:45 Basophils % 0 % 08/29/17 04:45 Neutrophils # 9.1 k/uL (1.3-7.7) H 08/29/17 04:45 Lymphocytes # 0.7 k/uL (1.0-4.8) L 08/29/17 04:45 Monocytes # 0.8 k/uL (0-1.0) 08/29/17 04:45 Eosinophils # 0.1 k/uL (0-0.7) 08/29/17 04:45 Basophils # 0.0 k/uL (0-0.2) 08/29/17 04:45 PT 11.4 sec (9.0-12.0) 08/28/17 07:08 INR 1.2 (<1.2) H 08/28/17 07:08 APTT 23.9 sec (22.0-30.0) 08/28/17 07:08 Sodium 143 mmol/L (137-145) 08/29/17 04:45 Potassium 4.4 mmol/L (3.5-5.1) 08/29/17 04:45 Chloride 106 mmol/L (98-107) 08/29/17 04:45 Carbon Dioxide 25 mmol/L (22-30) 08/29/17 04:45 Anion Gap 12 mmol/L 08/29/17 04:45 BUN 49 mg/dL (9-20) H 08/29/17 04:45 Creatinine 2.16 mg/dL (0.66-1.25) H 08/29/17 04:45 Est GFR (MDRD) Af Amer 37 (>60 ml/min/1.73 sqM) 08/29/17 04:45 Est GFR (MDRD) Non-Af 31 (>60 ml/min/1.73 sqM) 08/29/17 04:45 Glucose 118 mg/dL (74-99) H 08/29/17 04:45 POC Glucose (mg/dL) 189 mg/dL (75-99) H 08/29/17 20:27 POC Glu Business Support Specialist Louise Hinkle 08/29/17 20:[address] Glu mg/dL 194 08/28/17 07:08 Hemoglobin A1c 8.4 % (4.0-6.0) H 08/28/17 07:08 Plasma Lactic Acid Anthony 1.1 mmol/L (0.7-2.0) 08/29/17 21:44 Calcium 9.3 mg/dL (8.4-10.2) 08/29/17 04:45 Total Bilirubin 2.8 mg/dL (0.2-1.3) H 08/29/17 04:45 AST 97 U/L (17-59) H 08/29/17 04:45 ALT 109 U/L (21-72) H 08/29/17 04:45 Alkaline Phosphatase 144 U/L (38-126) H 08/29/17 04:45 Total Protein 6.1 g/dL (6.3-8.2) L 08/29/17 04:45 Albumin 3.2 g/dL (3.5-5.0) L 08/29/17 04:45 Lipase 211 U/L (23-300) 08/27/17 23:11 Urine Color Yellow 08/27/17 20:10 Urine Appearance Clear (Clear) 08/27/17 20:10 Urine pH 5.5 (5.0-8.0) 08/27/17 20:10 Ur Specific [place] 1.010 (1.001-1.035) 08/27/17 20:10 Urine Protein 1+ (Negative) H 08/27/17 20:10 Urine Glucose (UA) Trace (Negative) H 08/27/17 20:10 Urine Ketones Negative (Negative) 08/27/17 20:10 Urine Blood Negative (Negative) 08/27/17 20:10 Urine Nitrite Negative (Negative) 08/27/17 20:10 Urine Bilirubin Negative (Negative) 08/27/17 20:10 Urine Urobilinogen <2.0 mg/dL (<2.0) 08/27/17 20:10 Ur Leukocyte Esterase Negative (Negative) 08/27/17 20:10 Urine WBC <1 /hpf (0-5) 08/27/17 20:10 Urine Bacteria Rare /hpf (None) H 08/27/17 20:10 Hepatitis A IgM Ab Non-Reactive (Non-Reactive) 08/27/17 19:05 Hep Bs Antigen Non-Reactive (Non-Reactive) 08/27/17 19:05 Hep B Core IgM Ab Reactive (Non-Reactive) H 08/27/17 19:05 Hep C IgG Ab Non-Reactive (Non-Reactive) 08/27/17 19:05 Influenza Type A RNA Not Detected (Not Detectd) 08/27/17 19:05 Influenza Type B (PCR) Not Detected (Not Detectd) 08/27/17 19:05 Microbiology 08/27/17 19:05 Blood Blood Culture Gram Stain - Final 08/27/17 19:05 Blood Blood Culture - Final Escherichia coli 08/27/17 20:10 Urine,Catheterized Urine Culture - Final 08/27/17 19:05 Blood Blood Culture - Final Assessment and Plan (1) Acute cholecystitis Narrative/Plan: 66 show male presents to Hospital with his because of some altered mental status feeling poorly with abdominal pain nausea and fever. Was on evidence of acute cholecystitis is not taking the operating room and has had the laparoscopic cholecystectomy. Postoperatively the patient is not feeling very well. Still having fever and some nausea and nursing has related to some emesis. Pain control appears to be adequate. He is having some altered mental status from anesthesia and his current sepsis. Laboratories call gram-negative bacilli in the blood culture. We'll alter antibiotic therapy from Unasyn to Zosyn given his ongoing fevers. Will offer intravenous Tylenol also. Continue with fluids and supportive care. As far as the left leg will utilize the Aquacel foam this area rolled gauze and Pastor wrap to be utilized to help control the edema to prevent any further new difficulties at that site and actually has had significant improvement with the multilayer wraps up in applied at the wound healing Center. Leukocytosis due to his current gram-negative sepsis as is his fever. Patient did have abnormal liver function tests and consequently hepatitis testing was performed because of the current hepatitis A outbreak and surprising hepatitis B core antibody IgM was found. We'll do further workup for hepatitis B and it's possible current activity. Current Visit: Yes Status: Acute Code(s): K81.0 - ACUTE CHOLECYSTITIS SNOMED Code(s): 85822229 (2) Hepatitis B core antibody positive Current Visit: Yes Status: Acute Code(s): R76.8 - OTHER SPECIFIED ABNORMAL IMMUNOLOGICAL FINDINGS IN SERUM SNOMED Code(s): 046582824 (3) Obesity, Class III, BMI 40-49.9 (morbid obesity) Current Visit: No Status: Acute Code(s): E66.01 - MORBID (SEVERE) OBESITY DUE TO EXCESS CALORIES SNOMED Code(s): 331486866 (4) Bilateral lower extremity edema Current Visit: No Status: Acute Code(s): R60.0 - LOCALIZED EDEMA SNOMED Code(s): 934420231 (5) Gram negative sepsis Current Visit: Yes Status: Acute Code(s): A41.50 - GRAM-NEGATIVE SEPSIS, UNSPECIFIED SNOMED Code(s): 438861068
[2017-08-30] MEDS: HYDROcodone/APAP 10-325MG 1 EACH TAB PO PRN
[2017-08-30] MEDS: LORATADINE 10 MG TAB PO PRN
[2017-08-30] MEDS: LACTATED RINGERS 1,000 ML IV SCH ×2 (05:05→13:47)
[2017-08-30] MEDS: ONDANSETRON 4 MG/2 ML VIAL IVP PRN ×2 (05:31→10:20)
[2017-08-30 07:17] LABS: Glucose,Whole Blood 187 mg/dL (75-99)
[2017-08-30 08:50] LABS: Basophils % (A) 0 %; Eosinophils # (A) 0.1 k/uL (0-0.7); Eosinophils % (A) 0 %; HCT 36.3 % (39.0-53.0); HGB 11.5 gm/dL (13.0-17.5); Lymphocytes # (A) 0.7 k/uL (1.0-4.8); Lymphocytes % (A) 6 %; MCH 30.2 pg (25.0-35.0); MCHC 31.7 g/dL (31.0-37.0); MCV 95.1 fL (80.0-100.0); Mean Platelet Volume 7.4; Monocytes # (A) 0.6 k/uL (0-1.0); Monocytes % (A) 5 %; Neutrophils # (A) 10.5 k/uL (1.3-7.7); Neutrophils % (A) 87 %; Platelet Count 215 k/uL (150-450); RBC 3.82 m/uL (4.30-5.90); RDW 14.7 % (11.5-15.5); WBC 12.2 k/uL (3.8-10.6)
[2017-08-30 09:00] LABS: Albumin 3.4 g/dL (3.5-5.0); Calcium 9.4 mg/dL (8.4-10.2); Potassium 4.5 mmol/L (3.5-5.1); Total Bilirubin 3.4 mg/dL (0.2-1.3); Total Protein 6.3 g/dL (6.3-8.2)
[2017-08-30] MEDS: PIPERACILLIN-TAZOBACTAM 3.375 GM in DEXTROSE/WATER 1 50ML.BAG IVPB SCH ×4 (09:35→23:10)
[2017-08-30] MEDS: CALCITRIOL 0.25 MCG CAP PO SCH (10:05)
[2017-08-30] MEDS: MAGNESIUM OXIDE 400 MG TAB PO SCH (10:05)
[2017-08-30] MEDS: ENOXAPARIN 40 MG/0.4 ML SYRINGE SQ SCH (10:05)
[2017-08-30] MEDS: amLODIPine 5 MG TAB PO SCH ×2 (10:06→21:25)
[2017-08-30] MEDS: ALLOPURINOL 100 MG TAB PO SCH (10:06)
[2017-08-30] MEDS: CHOLECALCIFEROL 1,000 UNIT TAB PO SCH (10:07)
[2017-08-30] MEDS: hydrALAZINE HCL 50 MG TAB PO SCH ×3 (10:07→21:25)
[2017-08-30] MEDS: GABAPENTIN 300 MG CAP PO SCH ×3 (10:07→21:25)
[2017-08-30] MEDS: ASPIRIN 81 MG PO SCH (10:07)
[2017-08-30] MEDS: FERROUS SULFATE 325 MG TAB PO SCH (10:07)
[2017-08-30] MEDS: SODIUM POLYSTYRENE SULFONATE 15 GM/60 ML BOTTLE PO SCH (10:08)
--- NOTE | 2017-08-30 11:36 | P.PN ---
<ChapoDanielle M - Last Filed: 08/30/17 11:26> Subjective Progress Note Date: 08/30/17 66-year-old male seen and examined at bedside . Patient is postop 29 of August laparoscopic cholecystectomy for cholecystitis patient did develop a temp last night up to 103.5 at 9:00 current temp this morning 100.9 white count 12.2 this morning. Patient is being followed by infectious disease. Surgical incision site dressings dry abdomen nondistended Objective - Vital Signs Vital signs: Vital Signs Temp 100.9 F H 08/30/17 08:06 Pulse 76 08/30/17 07:00 Resp 16 08/30/17 07:00 BP 149/67 08/30/17 07:00 Pulse Ox 94 L 08/30/17 07:00 Intake & Output 08/29/17 08/30/17 08/30/17 18:59 06:59 18:59 Intake Total 600 Output Total 10 Balance 590 Intake: IV 400 Oral 200 Output: Estimated Blood Loss 10 Other: # Voids 2 3 - Exam Physical exam Pleasant 66-year-old male sitting up in bed appearing in no acute distress Lungs diminished at the bases otherwise adequate air movement Heart S1-S2 audible and regular no murmur noted Abdomen obese soft not distended surgical tenderness appropriate surgical incision dressing site dry bowel tones present states no bowel movement reports a nausea sensation with heartburn a large umbilical hernia Extremities Kerlix dressings on the left lower extremity decrease edema - Labs CBC & Chem 7: 08/30/17 07:51 08/30/17 07:51 Labs: Abnormal Lab Results - Last 24 Hours (Table) 08/29/17 08/29/17 08/29/17 Range/Units 12:07 17:15 20:27 WBC (3.8-10.6) k/uL RBC (4.30-5.90) m/uL Hgb (13.0-17.5) gm/dL Hct (39.0-53.0) % Neutrophils # (1.3-7.7) k/uL Lymphocytes # (1.0-4.8) k/uL BUN (9-20) mg/dL Creatinine (0.66-1.25) mg/dL Glucose (74-99) mg/dL POC Glucose (mg/dL) 162 H 190 H 189 H (75-99) mg/dL Total Bilirubin (0.2-1.3) mg/dL AST (17-59) U/L ALT (21-72) U/L Alkaline Phosphatase (38-126) U/L Albumin (3.5-5.0) g/dL 08/30/17 08/30/17 08/30/17 Range/Units 07:15 07:51 07:51 WBC 12.2 H (3.8-10.6) k/uL RBC 3.82 L (4.30-5.90) m/uL Hgb 11.5 L (13.0-17.5) gm/dL Hct 36.3 L (39.0-53.0) % Neutrophils # 10.5 H (1.3-7.7) k/uL Lymphocytes # 0.7 L (1.0-4.8) k/uL BUN 42 H (9-20) mg/dL Creatinine 1.99 H (0.66-1.25) mg/dL Glucose 185 H (74-99) mg/dL POC Glucose (mg/dL) 187 H (75-99) mg/dL Total Bilirubin 3.4 H (0.2-1.3) mg/dL AST 68 H (17-59) U/L ALT 93 H (21-72) U/L Alkaline Phosphatase 169 H (38-126) U/L Albumin 3.4 L (3.5-5.0) g/dL Microbiology - Last 24 Hours (Table) 08/27/17 19:05 Blood Culture Gram Stain - Final Blood Blood Culture - Final Escherichia coli Assessment and Plan Assessment: Impression Present on admission abdominal pain febrile suspect due to acute calculus cholecystitis Postop 29 of August laparoscopic cholecystectomy for acute calculus cholecystitis Large asymptomatic umbilical hernia Persistent febrile Present on admission elevated liver enzymes trending down Plan Continue postop surgical care Pain control IV antibiotics per infectious disease PT OT eval Will follow with you with further surgical recommendations DVT and GI prophylaxis Await further input by GI service for the elevated liver enzymes The above impression and plan of care have been discussed and directed by signing physician. Danielle Cowan nurse practitioner acting as scribe for signing physician. <Abad Vela - Last Filed: 08/30/17 21:08> Objective - Vital Signs Vital signs: Vital Signs Temp 101.2 F H 08/30/17 14:46 Pulse 84 08/30/17 20:01 Resp 14 08/30/17 20:01 BP 131/47 08/30/17 14:46 Pulse Ox 90 L 08/30/17 19:50 Intake & Output 08/30/17 08/30/17 08/31/17 06:59 18:59 06:59 Intake Total 0 Output Total 400 Balance -400 Intake: Oral 0 Output: Urine 400 Other: Voiding Method Urinal Diaper Incontinent # Voids 3 1 - Labs CBC & Chem 7: 08/30/17 07:51 08/30/17 07:51 Labs: Abnormal Lab Results - Last 24 Hours (Table) 08/30/17 08/30/17 08/30/17 Range/Units 07:15 07:51 07:51 WBC 12.2 H (3.8-10.6) k/uL RBC 3.82 L (4.30-5.90) m/uL Hgb 11.5 L (13.0-17.5) gm/dL Hct 36.3 L (39.0-53.0) % Neutrophils # 10.5 H (1.3-7.7) k/uL Lymphocytes # 0.7 L (1.0-4.8) k/uL BUN 42 H (9-20) mg/dL Creatinine 1.99 H (0.66-1.25) mg/dL Glucose 185 H (74-99) mg/dL POC Glucose (mg/dL) 187 H (75-99) mg/dL Total Bilirubin 3.4 H (0.2-1.3) mg/dL AST 68 H (17-59) U/L ALT 93 H (21-72) U/L Alkaline Phosphatase 169 H (38-126) U/L Albumin 3.4 L (3.5-5.0) g/dL 08/30/17 08/30/17 08/30/17 Range/Units 11:37 16:43 20:31 WBC (3.8-10.6) k/uL RBC (4.30-5.90) m/uL Hgb (13.0-17.5) gm/dL Hct (39.0-53.0) % Neutrophils # (1.3-7.7) k/uL Lymphocytes # (1.0-4.8) k/uL BUN (9-20) mg/dL Creatinine (0.66-1.25) mg/dL Glucose (74-99) mg/dL POC Glucose (mg/dL) 200 H 151 H 137 H (75-99) mg/dL Total Bilirubin (0.2-1.3) mg/dL AST (17-59) U/L ALT (21-72) U/L Alkaline Phosphatase (38-126) U/L Albumin (3.5-5.0) g/dL Microbiology - Last 24 Hours (Table) 08/27/17 19:05 Blood Culture Gram Stain - Final Blood Blood Culture - Final Escherichia coli Assessment and Plan Assessment: As above. Patient doing better currently. Patient was quite febrile and septic appearing yesterday evening. Antibiotics managed by infectious disease. Abdominal pain minimal. MRI of the common bile duct was ordered but apparently this was unsuccessful given the patient's girth. We'll repeat enzymes tomorrow. If enzyme elevation persists will discuss with GI regarding possible ERCP. (1) Acute cholecystitis Current Visit: Yes Status: Acute Code(s): K81.0 - ACUTE CHOLECYSTITIS SNOMED Code(s): 32097114
[2017-08-30 11:39] LABS: Glucose,Whole Blood 200 mg/dL (75-99)
--- NOTE | 2017-08-30 12:15 | P.CONS ---
History of Present Illness - Reason for Consult Consult date: 08/29/17 Hepatitis - History of Present Illness Patient presents to the ER with his family because he felt weak. He was also having some upper abdominal discomfort radiating to the right. He was febrile. He notices urine being dark in color. Denied nausea or vomiting. Appetite diminished. No history of known gallstones. Ultrasound of the gallbladder was obtained after his liver enzymes were noted to be elevated. He was febrile. Ultrasound showed a distended gallbladder with a thickened wall containing both stones and sludge. Common bile duct 3-4 mm. Blood cultures have shown gram- negative bacilli. He was scheduled for surgery this morning by Dr. Shafer however I know the patient's daughter quite well and she requested that I perform the surgery instead. I spoke with the patient today in detail. Of note patient's hepatitis B IgM came back positive. Consultation to GI is pending for evaluation of hepatitis. Patient also has a large asymptomatic hernia at the umbilicus that he states has not changed in years. He says he has no plans on repairing that thus far. The patient underwent cholecystectomy today. We are asked to see him because of positive hepatitis B IgM core antibody. Review of Systems Constitutional: Denies fever, chills, sweats, weight gain, or loss. HEENT: Negative for migraines, blurred vision or loss, earaches, drainage, tinnitus, oral mucosal lesions, dysphagia, or odynophagia. CARDIAC: Negative for chest pain, arrhythmias, or palpitation. RESPIRATORY: Negative for cough, SOB or wheezing. GI: See HPI for pertinent findings. : Negative for hematuria, urgency, frequency, polyuria, or dysuria. MUSCULOSKELETAL: Negative for muscle aches, swelling, arthritis, and arthralgias. NEUROLOGIC: Negative for stroke or TIA. ENDOCRINE: Negative for thyroid problems or diabetes. SKIN: Negative for rash or itching. PSYCHIATRIC: Negative history for depression and anxiety. Past Medical History Past Medical History: Heart Failure, COPD, Diabetes Mellitus, Hyperlipidemia, Hypertension, Osteoarthritis (OA), Renal Disease, Skin Disorder, Sleep Apnea/ CPAP/BIPAP Additional Past Medical History / Comment(s): Hx. GOUT, H PYLORI, ANEMIA, umbilical HERNIA, nonhealing ulcer History of Any Multi-Drug Resistant Organisms: None Reported Year Discovered:: 03/10/2014-C-diff MDRO Source:: Stool Past Surgical History: Appendectomy, Heart Catheterization With Stent Additional Past Surgical History / Comment(s): CATARACTS DANIELLE, HAD TESTICULAR SX FOR VARICOSED VEINS, PICC LINE SINCE REMOVED Past Anesthesia/Blood Transfusion Reactions: No Reported Reaction Date of Last Stent Placement:: 10/2015 Past Psychological History: No Psychological Hx Reported Additional Psychological History / Comment(s): pt lives at home with his , works at [employer]. never served in the [employer] services. Smoking Status: Never smoker Past Alcohol Use History: None Reported Additional Past Alcohol Use History / Comment(s): Patient has been a lifelong nonsmoker. He denies any medical marijuana, marijuana, street drug use. He denies any alcohol abuse. Patient lives at home with his . They are in a second floor. apartment. No service no recent travel. Past Drug Use History: None Reported - Past Family History Father Family Medical History: COPD Additional Family Medical History / Comment(s): AT AGE 64- EMPHYSEMA(SMOKER ) Mother Family Medical History: Diabetes Mellitus, Hypertension Additional Family Medical History / Comment(s): LUPUS, LEG AMPUTATED. MOM IN HER 60'S Medications and Allergies Home Medications Medication Instructions Recorded Confirmed Type Allopurinol [Zyloprim] 100 mg PO DAILY 04/22/15 08/27/17 History Calcitriol [Rocaltrol] 0.25 mcg PO MOWEFR 04/22/15 08/27/17 History Cholecalciferol [Vitamin D3] 5,000 unit PO DAILY 04/22/15 08/27/17 History Gabapentin [Neurontin] 300 mg PO TID 04/22/15 08/27/17 History Magnesium Oxide [Mag-Ox] 250 mg PO DAILY 04/22/15 08/27/17 History Fish Oil/Dha/Epa [Fish Oil 1,200 1 cap PO DAILY 09/06/15 08/27/17 History mg Fish Oil] HYDROcodone/APAP 10-325MG [Otisco 1 tab PO TID PRN 09/06/15 08/27/17 History 10-325] Roxadustat 50mg-100mg 1 cap PO TUTHSA 09/06/15 08/27/17 History Simvastatin [Zocor] 40 mg PO HS 09/06/15 08/27/17 History Sodium Polystyrene Sulfon/Sorb 2 tbsp PO DAILY 09/06/15 08/27/17 History [Kionex 15 gm/60 ml Suspension] Ferrous Sulfate [Iron (65 MG 325 mg PO DAILY 10/23/15 08/27/17 History Elemental)] Insulin Glargine,Hum.rec.anlog 30 units SQ 1200 05/04/16 08/27/17 History [Ronny [place]] hydrALAZINE HCL [Apresoline] 100 mg PO TID 05/04/16 08/27/17 History Furosemide [Lasix] 40 mg PO BID 07/22/17 08/27/17 History Aspirin 325 mg PO DAILY 08/27/17 08/27/17 History amLODIPine [Norvasc] 5 mg PO BID 08/27/17 08/27/17 History Allergies Allergy/AdvReac Type Severity Reaction Status Date / Time aspirin [From Anacin] Allergy Rash/Hives Verified 08/27/17 18:51 erythromycin base Allergy Unknown Verified 08/27/17 18:51 sulfamethoxazole AdvReac affects Verified 08/27/17 18:51 [From Bactrim] kidneys trimethoprim [From Bactrim] AdvReac Unknown Verified 08/27/17 18:51 Physical Exam Vitals: Vital Signs Temp Pulse Resp BP Pulse Ox 08/29/17 23:00 102.7 F H 105 H 16 157/75 94 L 08/29/17 20:12 103.5 F H 08/29/17 18:49 101.5 F H 08/29/17 16:00 100 08/29/17 15:55 97.8 F 100 20 148/70 92 L 08/29/17 12:15 75 16 153/66 95 08/29/17 12:00 98.7 F 77 20 141/62 91 L 08/29/17 11:55 98.6 F 84 16 174/72 98 08/29/17 06:43 100.4 F H 84 16 126/78 93 L Intake and Output 08/29/17 08/29/17 08/30/17 14:59 22:59 06:59 Intake Total 600 Output Total 10 Balance 590 Intake: IV 400 Oral 200 Output: Estimated Blood Loss 10 Other: # Voids 2 2 General appearance: The patient is alert, oriented, with no acute distress. HET: Head is normocephalic and atraumatic. Pupils are equal and reactive. Oropharynx is clear without lesions. Neck: Supple without lymphadenopathy. Trachea midline. Heart: S1 S2. Regular rate and rhythm. Lungs: Clear to auscultation, with no dullness to percussion. Abdomen: Soft, nontender, nondistended with bowel sounds. No peritoneal signs. No palpable organomegaly or masses. Extremities: Normal skin color and turgor. No cyanosis, rash, ulceration, clubbing, or edema. Radial and pedal pulses are 2/4 bilaterally. Neurological: No focal deficits. Strength and sensation are grossly intact. Results CBC & Chem 7: 08/30/17 07:51 08/30/17 07:51 Labs: Abnormal Lab Results - Last 24 Hours (Table) 08/28/17 08/29/17 08/29/17 Range/Units 07:08 04:45 04:45 WBC 10.8 H (3.8-10.6) k/uL RBC 3.66 L (4.30-5.90) m/uL Hgb 10.9 L (13.0-17.5) gm/dL Hct 34.8 L (39.0-53.0) % Neutrophils # 9.1 H (1.3-7.7) k/uL Lymphocytes # 0.7 L (1.0-4.8) k/uL BUN 49 H (9-20) mg/dL Creatinine 2.16 H (0.66-1.25) mg/dL Glucose 118 H (74-99) mg/dL POC Glucose (mg/dL) (75-99) mg/dL Hemoglobin A1c 8.4 H (4.0-6.0) % Total Bilirubin 2.8 H (0.2-1.3) mg/dL AST 97 H (17-59) U/L ALT 109 H (21-72) U/L Alkaline Phosphatase 144 H (38-126) U/L Total Protein 6.1 L (6.3-8.2) g/dL Albumin 3.2 L (3.5-5.0) g/dL 08/29/17 08/29/17 08/29/17 Range/Units 07:14 12:07 17:15 WBC (3.8-10.6) k/uL RBC (4.30-5.90) m/uL Hgb (13.0-17.5) gm/dL Hct (39.0-53.0) % Neutrophils # (1.3-7.7) k/uL Lymphocytes # (1.0-4.8) k/uL BUN (9-20) mg/dL Creatinine (0.66-1.25) mg/dL Glucose (74-99) mg/dL POC Glucose (mg/dL) 137 H 162 H 190 H (75-99) mg/dL Hemoglobin A1c (4.0-6.0) % Total Bilirubin (0.2-1.3) mg/dL AST (17-59) U/L ALT (21-72) U/L Alkaline Phosphatase (38-126) U/L Total Protein (6.3-8.2) g/dL Albumin (3.5-5.0) g/dL 08/29/17 Range/Units 20:27 WBC (3.8-10.6) k/uL RBC (4.30-5.90) m/uL Hgb (13.0-17.5) gm/dL Hct (39.0-53.0) % Neutrophils # (1.3-7.7) k/uL Lymphocytes # (1.0-4.8) k/uL BUN (9-20) mg/dL Creatinine (0.66-1.25) mg/dL Glucose (74-99) mg/dL POC Glucose (mg/dL) 189 H (75-99) mg/dL Hemoglobin A1c (4.0-6.0) % Total Bilirubin (0.2-1.3) mg/dL AST (17-59) U/L ALT (21-72) U/L Alkaline Phosphatase (38-126) U/L Total Protein (6.3-8.2) g/dL Albumin (3.5-5.0) g/dL Microbiology - Last 24 Hours (Table) 08/27/17 19:05 Blood Culture Gram Stain - Final Blood Blood Culture - Final Escherichia coli 08/27/17 20:10 Urine Culture - Final Urine,Catheterized Assessment and Plan Assessment: Abnormal liver enzymes and positive hepatitis the IgM core antibody. The possibility of acute hepatitis B viral infection would be entertained despite the negative hepatitis B surface antigen. Other possible etiology could be a false positive reaction. Plan: Agree with your current management. We will order additional hepatitis B serology testing and repeat liver enzymes and plan accordingly. I will discuss with you and follow with you with interest.
[2017-08-30] MEDS ORDERED: INSULIN ASPART 100 UNIT/ML 1 ML 10 ML VIAL SQ ONE (12:21)
--- NOTE | 2017-08-30 12:38 | XR ---
EXAMINATION TYPE: XR chest 1V portable DATE OF EXAM: 08/30/2017 COMPARISON: Prior chest x-ray 08/27/2017 HISTORY: Congestive heart failure TECHNIQUE: Single frontal view of the chest is obtained. FINDINGS: The heart is enlarged. Lung volumes are lower. No evident pneumonia thorax or pleural effu gregg. There are overlying cardiac leads. Patient is rotated. Mediastinum appears widened possibly due to technique. IMPRESSION: Expiratory rotated exam, follow-up with PA and lateral chest x-ray may be of benefit.
[2017-08-30] MEDS: INSULIN DETEMIR 100 UNIT/ML 10 ML VIAL SQ SCH (12:46)
[2017-08-30] MEDS: ACETAMINOPHEN IV (For NPO) 1,000 MG in EMPTY BAG 1 BAG IVPB PRN (12:47)
[2017-08-30] MEDS ORDERED: ACETAMINOPHEN TAB 325 MG TAB PO PRN (13:17)
[2017-08-30] MEDS ORDERED: FUROSEMIDE 10 MG/ML 4 ML VIAL IV STA (13:46)
[2017-08-30] MEDS ORDERED: IPRATROPIUM-ALBUTEROL 3 ML NEB INHALATION PRN (13:46)
[2017-08-30] MEDS: SODIUM CHLORIDE 0.9% 1,000 ML IV SCH (13:49)
--- NOTE | 2017-08-30 14:16 | PN ---
PROGRESS NOTE DATE OF SERVICE: 08/30/2017 REQUESTING PHYSICIAN: Dr. Papo Ford and Dr. Vela. The patient is a 66-year-old pleasant white male admitted to hospital with abdominal pain and altered mental status. He underwent laparoscopic cholecystectomy yesterday for acute cholecystitis and ultrasound did show evidence of gallbladder and gallstones. At the time of admission to the hospital, the patient was noted to have elevated ALT and AST in the range of 100s and T bilirubin up to 2.8. Following the surgery, his labs continue to slowly go up with a bilirubin today at 3.4, however, the ALT and AST are decreasing at 68 and 93 respectively. He still continues to complain of some epigastric discomfort. He also has been having fever for the last 24 hour period with a T-max of 101.4 along with mild leukocytosis. Hence, GI was consulted. Dr. Zamora evaluated the patient. Hepatitis serologies were done and hepatitis B core IgM antibody was positive. This morning he states that he still continues to have vague epigastric discomfort. He reports he had 2 episodes of nausea, vomiting. He reports no diarrhea. PHYSICAL EXAMINATION: On physical examination, he appears comfortable. No apparent distress. Vital signs are stable. T-max is 101.4. Blood pressure 141/49, pulse rate 84. HEENT EXAMINATION: Unremarkable. Conjunctivae pink. Sclerae anicteric. Oral cavity, no lesions. NECK: No JVD or lymph node enlargement. CHEST: Clear to auscultation. HEART: Regular rate and rhythm. ABDOMEN: Soft. It was slightly tender in the epigastric area, but bowel sounds are positive. No organomegaly. EXTREMITIES: No pedal edema. SKIN: No rashes. NEURO: Alert and oriented x3. No focal deficits. LABS: Labs at the time of admission to the hospital was 2.8. AST was 162, ALT was 134, and alkaline phosphatase 126. Today T bilirubin 3.4, AST 68, ALT 93, alkaline phosphatase is 169. Hepatitis serologies for A was negative, C was negative. Hepatitis B core IgM antibody was positive. IMPRESSION: This is a patient who presents to the hospital with epigastric pain for the last 2 days duration. An ultrasound showing dilated gallbladder with multiple gallstones. He is status post laparoscopic cholecystectomy by Dr. Vela yesterday and he subsequently developed fever with worsening bilirubin up to 3.4. However, the serum ALT and AST are gradually improving. He remained symptomatic with epigastric discomfort. Hepatitis B core IgM antibody was positive, but at this time it is unclear whether we are dealing with an acute hepatitis B infection or a false-positive serology. Possibility of retained common bile duct stone cannot be entirely excluded at this time. RECOMMENDATIONS: 1. We will schedule the patient for an MRCP to evaluate the biliary system and rule out CBD stone. 2. Continue with empiric broad-spectrum antibiotics. 3. Repeat labs in the morning and based on MRCP results, we will consider if the patient is a candidate for an ERCP or note. The plan was discussed with the patient as well as his at the bedside. Thank you for this consultation. TREASURE / CHACORTA: [id number] /
[2017-08-30 16:53] LABS: Glucose,Whole Blood 151 mg/dL (75-99)
[2017-08-30] MEDS: IPRATROPIUM-ALBUTEROL 3 ML NEB INHALATION SCH ×2 (17:05→19:50)
[2017-08-30] MEDS: INSULIN ASPART 100 UNIT/ML 1 ML 10 ML VIAL SQ SCH ×2 (18:21→21:25)
--- NOTE | 2017-08-30 19:15 | P.PN ---
Progress Note - Text Progress Note Date: 08/30/17 Presenting complaint fever Interval history: This is a patient with chronic left lower extremity wound. Presented with fever found to have acute cholecystitis and had surgical intervention done by Dr. Vela. at the bedside. Patient still spiking fevers. Persistent with some upper abdominal pain. Some nausea no vomiting. No bowel movement or flatus. Review of systems: Was done for constitutional, cardiovascular, GI, pulmonary. relevant finding as above Current medications are reviewed that included: IV Unasyn changed over to IV Zosyn, IV fluids Physical exam VITAL SIGNS: 101.4, 84, 20, 141/49, 91% on 3 L GENERAL: laying in bed tired appearing. EYES: Pupils equal. Conjunctiva normal. HEENT: External appearance of nose and ears normal, oral cavity grossly normal. NECK: JVD unable to assess; masses not palpable. HEART: First and second heart sounds are normal; no edema. LUNGS: Respiratory rate normal; decreased breath sounds. ABDOMEN: Soft, upper abdominal tenderness, dressing over the incision site, liver spleen not palpable, no masses palpable. PSYCH: Alert and oriented x3; mood and affect normal. EXTREMITIES: Dressing of the left lower extremity below the knee to to the feet Investigations: White count 12.2, hemoglobin 11.5, potassium 4.5, BUN 42, creatinine 1.99 Bilirubin 3.4, AST 68, ALT 93 Blood cultures showing E. coli, repeat blood cultures drawn last night Hepatitis screen showing hepatitis B core IgM antibody positive Assessment: -Acute cholecystitis, causing sepsis with blood cultures growing gram-negative bacilli followed by cholecystectomy. Patient continues to spike fevers, but epigastric pain. Bilirubin continues to go up though LFTs are coming down. Possible patient may have a stone in the remnant bile duct.. 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 Campuzano Plan: Patient to continue on IV fluids, IV Zosyn. GI has ordered MRCP for tomorrow. Repeat blood culture done. Care was discussed with the patient and at the bedside questions were answered
[2017-08-30 20:33] LABS: Glucose,Whole Blood 137 mg/dL (75-99)
[2017-08-30] MEDS: ATORVASTATIN 20 MG TAB PO SCH (21:25)
[2017-08-30] MEDS: HEPARIN SODIUM,PORCINE 5,000 UNIT/ML 1 ML VIAL SQ SCH (21:25)
--- NOTE | 2017-08-30 23:12 | P.PN ---
Subjective Progress Note Date: 08/30/17 Principal diagnosis: Fever 66-year-old male well-known to the infectious disease service for the care of the patient related to his recurrent lesions to the lower extremities and bouts of cellulitis. The patient's brought him emergency center because of patient had become ill with some altered mental status, generalized weakness, nausea abdominal pain and about of emesis. Because of this he was evaluated in emergency center and had evidence of sepsis and evidence of abnormal liver function tests in consequently ultrasound was performed that showed evidence of the significant cholecystitis and leukocytosis. He was evaluated general surgery and was taken to Her room today for the laparoscopic cholecystectomy. Patient is without evidence of possible cultures gram- negative bacilli and constantly infectious diseases consultation was requested as well as request for some care to the left lower extremity chronic venous stasis ulcerations. The patient's postoperative and is still having some nausea. He's had significant fever slightly improved at this time. He feels poorly and his mentation is poor. 08/30/2017 as noted the patient is status post cholecystectomy, he had significant postoperative fever but is somewhat improved. He was sitting upright reading atrial on his cell phone. Relates that he is without significant or severe abdominal pain but does have some postoperative discomfort. Denies nausea or emesis. His high-grade fevers and chills have all resolved this evening and he has no other new acute complaints. Objective - Vital Signs Vital signs: Vital Signs Temp 98.2 F 08/30/17 22:01 Pulse 88 08/30/17 22:01 Resp 16 08/30/17 22:01 BP 168/67 08/30/17 22:01 Pulse Ox 92 L 08/30/17 22:01 Intake & Output 08/30/17 08/30/17 08/31/17 06:59 18:59 06:59 Intake Total 0 Output Total 400 400 Balance -400 -400 Intake: Oral 0 Output: Urine 400 400 Other: Voiding Method Urinal Diaper Incontinent # Voids 3 1 1 - Exam 66-year-old male who is feeling better now a day after surgery, abdominal pain is improved. Sitting up feeling somewhat comfortable HEENT: Anicteric conjunctiva are pink and moist nasal mucosa grossly intact without significant lesions, there is no thrush. Neck: The neck is supple without significant lymphadenopathy or thyromegaly. Lungs: Good bilateral air entry without significant crackles or wheezing. There is no significant bronchial sounds. There is no egophony or dullness. Heart: Regular rate and rhythm with an audible S1-S2, no S3 loud S4. There is no significant murmur click or rub, PMI was nondisplaced. Abdomen: Mildly distended and obese the chronic hernia umbilical is without change. The abdomen is tender especially at the surgical site where the drain is in place. Extremities: The upper extremities have excellent pulses they are symmetric, no significant petechiae or telangiectasia. No splinter hemorrhages were noted. The lower extremities are free from significant edema. The peripheral pulses were 2+ and symmetric. Neuro: Awake and alert and recognizes me immediately upon entering the room by name able to utilize his cell phone and read material. No new acute gross focal sensory motor deficits his bit of confusion admission is much improved - Labs CBC & Chem 7: 08/30/17 07:51 08/30/17 07:51 Labs: Abnormal Lab Results - Last 24 Hours (Table) 08/30/17 08/30/17 08/30/17 Range/Units 07:15 07:51 07:51 WBC 12.2 H (3.8-10.6) k/uL RBC 3.82 L (4.30-5.90) m/uL Hgb 11.5 L (13.0-17.5) gm/dL Hct 36.3 L (39.0-53.0) % Neutrophils # 10.5 H (1.3-7.7) k/uL Lymphocytes # 0.7 L (1.0-4.8) k/uL BUN 42 H (9-20) mg/dL Creatinine 1.99 H (0.66-1.25) mg/dL Glucose 185 H (74-99) mg/dL POC Glucose (mg/dL) 187 H (75-99) mg/dL Total Bilirubin 3.4 H (0.2-1.3) mg/dL AST 68 H (17-59) U/L ALT 93 H (21-72) U/L Alkaline Phosphatase 169 H (38-126) U/L Albumin 3.4 L (3.5-5.0) g/dL 08/30/17 08/30/17 08/30/17 Range/Units 11:37 16:43 20:31 WBC (3.8-10.6) k/uL RBC (4.30-5.90) m/uL Hgb (13.0-17.5) gm/dL Hct (39.0-53.0) % Neutrophils # (1.3-7.7) k/uL Lymphocytes # (1.0-4.8) k/uL BUN (9-20) mg/dL Creatinine (0.66-1.25) mg/dL Glucose (74-99) mg/dL POC Glucose (mg/dL) 200 H 151 H 137 H (75-99) mg/dL Total Bilirubin (0.2-1.3) mg/dL AST (17-59) U/L ALT (21-72) U/L Alkaline Phosphatase (38-126) U/L Albumin (3.5-5.0) g/dL Microbiology - Last 24 Hours (Table) 08/27/17 19:05 Blood Culture Gram Stain - Final Blood Blood Culture - Final Escherichia coli Laboratory Results WBC 12.2 k/uL (3.8-10.6) H 08/30/17 07:51 RBC 3.82 m/uL (4.30-5.90) L 08/30/17 07:51 Hgb 11.5 gm/dL (13.0-17.5) L 08/30/17 07:51 Hct 36.3 % (39.0-53.0) L 08/30/17 07:51 MCV 95.1 fL (80.0-100.0) 08/30/17 07:51 MCH 30.2 pg (25.0-35.0) 08/30/17 07:51 MCHC 31.7 g/dL (31.0-37.0) 08/30/17 07:51 RDW 14.7 % (11.5-15.5) 08/30/17 07:51 Plt Count 215 k/uL (150-450) 08/30/17 07:51 Neutrophils % 87 % 08/30/17 07:51 Lymphocytes % 6 % 08/30/17 07:51 Monocytes % 5 % 08/30/17 07:51 Eosinophils % 0 % 08/30/17 07:51 Basophils % 0 % 08/30/17 07:51 Neutrophils # 10.5 k/uL (1.3-7.7) H 08/30/17 07:51 Lymphocytes # 0.7 k/uL (1.0-4.8) L 08/30/17 07:51 Monocytes # 0.6 k/uL (0-1.0) 08/30/17 07:51 Eosinophils # 0.1 k/uL (0-0.7) 08/30/17 07:51 Basophils # 0.0 k/uL (0-0.2) 08/30/17 07:51 PT 11.4 sec (9.0-12.0) 08/28/17 07:08 INR 1.2 (<1.2) H 08/28/17 07:08 APTT 23.9 sec (22.0-30.0) 08/28/17 07:08 Sodium 144 mmol/L (137-145) 08/30/17 07:51 Potassium 4.5 mmol/L (3.5-5.1) 08/30/17 07:51 Chloride 104 mmol/L (98-107) 08/30/17 07:51 Carbon Dioxide 25 mmol/L (22-30) 08/30/17 07:51 Anion Gap 15 mmol/L 08/30/17 07:51 BUN 42 mg/dL (9-20) H 08/30/17 07:51 Creatinine 1.99 mg/dL (0.66-1.25) H 08/30/17 07:51 Est GFR (MDRD) Af Amer 41 (>60 ml/min/1.73 sqM) 08/30/17 07:51 Est GFR (MDRD) Non-Af 34 (>60 ml/min/1.73 sqM) 08/30/17 07:51 Glucose 185 mg/dL (74-99) H 08/30/17 07:51 POC Glucose (mg/dL) 137 mg/dL (75-99) H 08/30/17 20:31 POC Glu Knotting Machine Operator Iqra Walters 08/30/17 20:[address] Glu mg/dL 194 08/28/17 07:08 Hemoglobin A1c 8.4 % (4.0-6.0) H 08/28/17 07:08 Plasma Lactic Acid Anthony 1.1 mmol/L (0.7-2.0) 08/29/17 21:44 Calcium 9.4 mg/dL (8.4-10.2) 08/30/17 07:51 Total Bilirubin 3.4 mg/dL (0.2-1.3) H 08/30/17 07:51 AST 68 U/L (17-59) H 08/30/17 07:51 ALT 93 U/L (21-72) H 08/30/17 07:51 Alkaline Phosphatase 169 U/L (38-126) H 08/30/17 07:51 Total Protein 6.3 g/dL (6.3-8.2) 08/30/17 07:51 Albumin 3.4 g/dL (3.5-5.0) L 08/30/17 07:51 Lipase 211 U/L (23-300) 08/27/17 23:11 Urine Color Yellow 08/27/17 20:10 Urine Appearance Clear (Clear) 08/27/17 20:10 Urine pH 5.5 (5.0-8.0) 08/27/17 20:10 Ur Specific [place] 1.010 (1.001-1.035) 08/27/17 20:10 Urine Protein 1+ (Negative) H 08/27/17 20:10 Urine Glucose (UA) Trace (Negative) H 08/27/17 20:10 Urine Ketones Negative (Negative) 08/27/17 20:10 Urine Blood Negative (Negative) 08/27/17 20:10 Urine Nitrite Negative (Negative) 08/27/17 20:10 Urine Bilirubin Negative (Negative) 08/27/17 20:10 Urine Urobilinogen <2.0 mg/dL (<2.0) 08/27/17 20:10 Ur Leukocyte Esterase Negative (Negative) 08/27/17 20:10 Urine WBC <1 /hpf (0-5) 08/27/17 20:10 Urine Bacteria Rare /hpf (None) H 08/27/17 20:10 Hepatitis A IgM Ab Non-Reactive (Non-Reactive) 08/27/17 19:05 Hep Bs Antigen Non-Reactive (Non-Reactive) 08/27/17 19:05 Hep B Core IgM Ab Reactive (Non-Reactive) H 08/27/17 19:05 Hep C IgG Ab Non-Reactive (Non-Reactive) 08/27/17 19:05 Influenza Type A RNA Not Detected (Not Detectd) 08/27/17 19:05 Influenza Type B (PCR) Not Detected (Not Detectd) 08/27/17 19:05 Microbiology 08/27/17 19:05 Blood Blood Culture Gram Stain - Final 08/27/17 19:05 Blood Blood Culture - Final Escherichia coli 08/27/17 20:10 Urine,Catheterized Urine Culture - Final 08/27/17 19:05 Blood Blood Culture - Final Assessment and Plan (1) Acute cholecystitis Narrative/Plan: 66 show male presents to Hospital with his because of some altered mental status feeling poorly with abdominal pain nausea and fever. Was on evidence of acute cholecystitis is not taking the operating room and has had the laparoscopic cholecystectomy. Postoperatively the patient is not feeling very well. Still having fever and some nausea and nursing has related to some emesis. Pain control appears to be adequate. He is having some altered mental status from anesthesia and his current sepsis. Laboratories call gram-negative bacilli in the blood culture. We'll alter antibiotic therapy from Unasyn to Zosyn given his ongoing fevers. Will offer intravenous Tylenol also. Continue with fluids and supportive care. As far as the left leg will utilize the Aquacel foam this area rolled gauze and Pastor wrap to be utilized to help control the edema to prevent any further new difficulties at that site and actually has had significant improvement with the multilayer wraps up in applied at the wound healing Center. Leukocytosis due to his current gram-negative sepsis as is his fever. Patient did have abnormal liver function tests and consequently hepatitis testing was performed because of the current hepatitis A outbreak and surprising hepatitis B core antibody IgM was found. We'll do further workup for hepatitis B and it's possible current activity. 08/30/2017 reveals the patient is feeling better. He is without new acute difficulties and is feeling considerably better with reduction of his fever. His bilirubin did increase and MRCP has been requested by gastroenterology. This will help determine the next steps. Still awaiting verification of the activity was hepatitis B. Continue with local care to his left leg which he is tolerating well and showing improvement. Current Visit: Yes Status: Acute Code(s): K81.0 - ACUTE CHOLECYSTITIS SNOMED Code(s): 47361950 (2) Hepatitis B core antibody positive Current Visit: Yes Status: Acute Code(s): R76.8 - OTHER SPECIFIED ABNORMAL IMMUNOLOGICAL FINDINGS IN SERUM SNOMED Code(s): 642055212 (3) Obesity, Class III, BMI 40-49.9 (morbid obesity) Current Visit: No Status: Acute Code(s): E66.01 - MORBID (SEVERE) OBESITY DUE TO EXCESS CALORIES SNOMED Code(s): 944098025 (4) Bilateral lower extremity edema Current Visit: No Status: Acute Code(s): R60.0 - LOCALIZED EDEMA SNOMED Code(s): 738021678 (5) Gram negative sepsis Current Visit: Yes Status: Acute Code(s): A41.50 - GRAM-NEGATIVE SEPSIS, UNSPECIFIED SNOMED Code(s): 965583925
[2017-08-31] MEDS: ONDANSETRON 4 MG/2 ML VIAL IVP PRN ×2 (03:23→09:49)
[2017-08-31] MEDS: SODIUM CHLORIDE 0.9% 1,000 ML IV SCH ×3 (03:24→18:01)
[2017-08-31 07:12] LABS: Glucose,Whole Blood 154 mg/dL (75-99)
[2017-08-31] MEDS: IPRATROPIUM-ALBUTEROL 3 ML NEB INHALATION SCH ×4 (07:17→20:48)
[2017-08-31] MEDS: PIPERACILLIN-TAZOBACTAM 3.375 GM in DEXTROSE/WATER 1 50ML.BAG IVPB SCH ×3 (07:59→23:31)
[2017-08-31] MEDS: INSULIN ASPART 100 UNIT/ML 1 ML 10 ML VIAL SQ SCH ×4 (08:00→21:03)
[2017-08-31] MEDS: CHOLECALCIFEROL 1,000 UNIT TAB PO SCH (08:00)
[2017-08-31] MEDS: GABAPENTIN 300 MG CAP PO SCH ×3 (08:00→21:03)
[2017-08-31] MEDS: amLODIPine 5 MG TAB PO SCH ×2 (08:01→20:27)
[2017-08-31] MEDS: MAGNESIUM OXIDE 400 MG TAB PO SCH (08:01)
[2017-08-31] MEDS: FERROUS SULFATE 325 MG TAB PO SCH (08:01)
[2017-08-31] MEDS: hydrALAZINE HCL 50 MG TAB PO SCH ×3 (08:01→21:03)
[2017-08-31] MEDS: HEPARIN SODIUM,PORCINE 5,000 UNIT/ML 1 ML VIAL SQ SCH ×2 (08:01→20:27)
[2017-08-31] MEDS: ALLOPURINOL 100 MG TAB PO SCH (08:01)
[2017-08-31] MEDS: SODIUM POLYSTYRENE SULFONATE 15 GM/60 ML BOTTLE PO SCH (08:02)
[2017-08-31] MEDS: ASPIRIN 81 MG PO SCH (08:02)
[2017-08-31] MEDS: HYDROcodone/APAP 10-325MG 1 EACH TAB PO PRN ×3 (08:19→23:34)
--- NOTE | 2017-08-31 08:35 | PN ---
PROGRESS NOTE DATE OF SERVICE: 08/30/2017. INTERVAL HISTORY: This 66-year-old gentleman was admitted with acute cholecystitis with sepsis, underwent laparoscopic cholecystectomy. The patient is running fever. The patient complained of pain and abdominal pain. The most recent chest x-ray which was personally reviewed by me showed . No chest pain. No palpitations. PAST MEDICAL HISTORY: Reviewed. REVIEW OF SYSTEMS: Cardiovascular: No angina or palpitations. Respiration: As mentioned earlier. GI as mentioned earlier. mentioned earlier. Central nervous system: No focal deficits. CURRENT MEDICATIONS: Reviewed and include: 1. Tylenol 1000 mg b.i.d. 2. [place] 10 mg t.i.d. p.r.n. 3. DuoNeb q.i.d. and p.r.n. 4. Zyloprim 100 mg b.i.d. 5. Norvasc 5 mg p.o. b.i.d. 6. Aspirin 81 mg. 7. Lipitor 20 mg q.h.s. 8. Rocaltrol. 9. Vitamin D3. 10.Iron sulfate 320 mg. 11.Neurontin. 12.Apresoline. 13.Levemir 30 mg subcu daily. 14.Zofran. 15.Zosyn 3.5 IV q.8h. 16.Kayexalate 7.5 mg p.o. daily. PHYSICAL EXAM: Patient is alert, oriented x2. Pulse 84, blood pressure 131/47, respirations 16 , temperature 101.2, pulse ox 94% on 2 L. HEENT is conjunctivae normal. Oral mucosa moist. Neck is no jugular venous distention. No lymph node enlargement. Cardiovascular S1, S2. Respirations breath sounds diminished in the bases. Bilateral scattered rhonchi and crackles. Expiratory wheezing also present. ABDOMEN: Soft, nontender. No mass palpable. Legs no edema and no swelling. Central nervous system: Higher functions as mentioned earlier. Moves all four extremities. No focal deficits. Lymphatics: No lymph nodes palpable in the neck, axillae or groin. Skin no ulcer, rash or bleeding. LAB STUDIES: WBC 2.9, hemoglobin 7.5, creatinine 1.99, AST 68, and ALT is 93. ASSESSMENT: 1. Acute cholecystitis with sepsis, possibly E coli, which is poly sensitive status post laparoscopic cholecystectomy. 2. Continued fever. 3. Diabetes type 2. 4. Chronic obstructive pulmonary disease. 5. Congestive heart failure with chronic diastolic 50-60%. 6. Coronary artery disease. 7. Hypertension. 8. Hyperlipidemia. 9. Gastroesophageal reflux disease. 10.Coronary artery disease, stent. 11.Chronic kidney disease. 12.Chronic left lower extremity wound followed by Dr. Campuzano. RECOMMENDATIONS AND DISCUSSION: Recommend to continue current management and symptomatic treatment. Infectious disease evaluation and continue with antibiotics. We will repeat labs in the morning. Otherwise incentive spirometry. See orders for details. DVT prophylaxis. Guarded prognosis because of multiple complex medical issues. Further recommendations to follow. Broad-spectrum IV antibiotics. MMODL / IJN: [id number] / SIMBA
[2017-08-31 08:41] LABS: Basophils % (A) 0 %; Eosinophils % (A) 0 %; HCT 39.5 % (39.0-53.0); HGB 12.1 gm/dL (13.0-17.5); Hypochromasia Slight; Lymphocytes # (A) 0.8 k/uL (1.0-4.8); Lymphocytes % (A) 7 %; MCH 29.8 pg (25.0-35.0); MCHC 30.6 g/dL (31.0-37.0); MCV 97.3 fL (80.0-100.0); Mean Platelet Volume 7.5; Monocytes # (A) 0.7 k/uL (0-1.0); Monocytes % (A) 6 %; Neutrophils % (A) 84 %; Platelet Count 216 k/uL (150-450); RBC 4.05 m/uL (4.30-5.90); RDW 14.8 % (11.5-15.5); WBC 11.9 k/uL (3.8-10.6)
[2017-08-31 09:09] LABS: Albumin 3.5 g/dL (3.5-5.0); Calcium 9.8 mg/dL (8.4-10.2); Potassium 4.4 mmol/L (3.5-5.1); Total Bilirubin 2.6 mg/dL (0.2-1.3); Total Protein 6.6 g/dL (6.3-8.2)
[2017-08-31] MEDS: IOHEXOL 350 MG/ML 25 ML BOTTLE (ORAL USE) PO PRN ×2 (09:48→11:03)
--- NOTE | 2017-08-31 10:02 | P.PN ---
Subjective Progress Note Date: 08/31/17 Principal diagnosis: elevated liver enzymes 66-year-old male history of cholelithiasis postop day #2 laparoscopic cholecystectomy. T-max 101.424 hours. LFTs improved today; total bilirubin 2.6. AST 53. Alkaline phosphatase 178. ALT 75. Hepatitis B core IgM antibody reactive. Hepatitis B surface antigen nonreactive. Hepatitis BE antigen/antibody as well as quantitative DNA measurement pending. CT abdomen ordered. MRCP canceled yesterday for evaluation of elevated liver enzymes after surgery secondary to recent cholecystectomy/clip placement. Objective - Vital Signs Vital signs: Vital Signs Temp 100.0 F H 08/31/17 06:20 Pulse 88 08/31/17 06:20 Resp 16 08/31/17 06:20 BP 169/71 08/31/17 06:20 Pulse Ox 95 08/31/17 06:20 Intake & Output 08/30/17 08/31/17 08/31/17 18:59 06:59 18:59 Intake Total 0 Output Total 400 800 Balance -400 -800 Intake: Oral 0 Output: Urine 400 800 Other: Voiding Method Urinal Urinal Urinal Diaper Diaper Diaper Incontinent Incontinent Incontinent # Voids 1 2 - Exam General appearance: The patient is alert, oriented, in no acute distress. HET: Head is normocephalic and atraumatic. Pupils are equal and reactive. Oropharynx is clear without lesions. Neck: Supple without lymphadenopathy. Trachea midline. Heart: S1 S2. Regular rate and rhythm. Lungs: No crackles or wheezes are heard. Abdomen: Soft, mild incisional tenderness surgical dressings clean, nondistended with bowel sounds. Reducible umbilical hernia. No peritoneal signs. No palpable organomegaly or masses. Extremities: Normal skin color and turgor. No cyanosis, rash, ulceration, clubbing, or edema. Radial and pedal pulses are 2/4 bilaterally. Neurological: No focal deficits. Strength and sensation are grossly intact. - Labs CBC & Chem 7: 08/31/17 08:06 08/31/17 08:06 Labs: Abnormal Lab Results - Last 24 Hours (Table) 08/30/17 08/30/17 08/30/17 Range/Units 11:37 16:43 20:31 WBC (3.8-10.6) k/uL RBC (4.30-5.90) m/uL Hgb (13.0-17.5) gm/dL MCHC (31.0-37.0) g/dL Neutrophils # (1.3-7.7) k/uL Lymphocytes # (1.0-4.8) k/uL BUN (9-20) mg/dL Creatinine (0.66-1.25) mg/dL Glucose (74-99) mg/dL POC Glucose (mg/dL) 200 H 151 H 137 H (75-99) mg/dL Total Bilirubin (0.2-1.3) mg/dL ALT (21-72) U/L Alkaline Phosphatase (38-126) U/L 08/31/17 08/31/17 08/31/17 Range/Units 07:09 08:06 08:06 WBC 11.9 H (3.8-10.6) k/uL RBC 4.05 L (4.30-5.90) m/uL Hgb 12.1 L (13.0-17.5) gm/dL MCHC 30.6 L (31.0-37.0) g/dL Neutrophils # 10.0 H (1.3-7.7) k/uL Lymphocytes # 0.8 L (1.0-4.8) k/uL BUN 42 H (9-20) mg/dL Creatinine 2.30 H (0.66-1.25) mg/dL Glucose 211 H (74-99) mg/dL POC Glucose (mg/dL) 154 H (75-99) mg/dL Total Bilirubin 2.6 H (0.2-1.3) mg/dL ALT 75 H (21-72) U/L Alkaline Phosphatase 178 H (38-126) U/L Microbiology - Last 24 Hours (Table) 08/29/17 21:44 Blood Culture - Preliminary Blood No Growth after 24 hours 08/27/17 19:05 Blood Culture Gram Stain - Final Blood Blood Culture - Final Escherichia coli Assessment and Plan Assessment: Impression: 1. Epigastric pain cholelithiasis cholecystitis E. coli bacteremia sepsis status post laparoscopic cholecystectomy with postoperative development of fever and worsening elevated liver enzymes with positive hepatitis B core IgM antibody with negative hepatitis B surface antigen. Possible acute hepatitis B possible false positive serology. Possible choledocholithiasis. Plan: 1. Agree with CT abdomen imaging. ERCP contingent on CT results however total bilirubin is improving. 2. Await additional hepatitis B serology evaluation to evaluate possible acute hepatitis B versus false positivity. 3. Continue with antibiotics. Diet as tolerated. We'll continue to follow with you. Assessment and plan of care discussed with Dr. Herman
[2017-08-31 11:33] LABS: Glucose,Whole Blood 223 mg/dL (75-99)
--- NOTE | 2017-08-31 12:23 | P.PN ---
<Danielle Cowan M - Last Filed: 08/31/17 12:24> Subjective Progress Note Date: 08/31/17 66-year-old male seen and examined at bedside this morning was incontinent a large liquid stools this morning. Did note the patient did spike a temp of 101.4 current temp 100. Reportedly had an episode of hematemesis last evening.. The MRCP was canceled yesterday due to recent cholecystectomy with clip placement GI service ordered a computed tomography scan of the abdomen and pelvis. Did note the total bilirubin is down to 2.6 this morning from 3.4 Currently denying abdominal discomfort Patient is postop day 2 laparoscopic cholecystectomy for acute cholelithiasis. Objective - Vital Signs Vital signs: Vital Signs Temp 100.0 F H 08/31/17 06:20 Pulse 88 08/31/17 06:20 Resp 16 08/31/17 06:20 BP 169/71 08/31/17 06:20 Pulse Ox 95 08/31/17 06:20 Intake & Output 08/30/17 08/31/17 08/31/17 18:59 06:59 18:59 Intake Total 0 Output Total 400 800 Balance -400 -800 Intake: Oral 0 Output: Urine 400 800 Other: Voiding Method Urinal Urinal Urinal Diaper Diaper Diaper Incontinent Incontinent Incontinent # Voids 1 2 2 # Bowel Movements 1 - Exam Physical exam Pleasant 66-year-old male sitting up in a bedside commode appearing in no acute distress Lungs diminished at the bases otherwise adequate air movement Heart S1-S2 audible and regular no murmur noted Abdomen obese soft not distended surgical tenderness appropriate surgical incision dressing site dry bowel tones present large liquid stool a large umbilical hernia Extremities Kerlix dressings on the left lower extremity decrease edema - Labs CBC & Chem 7: 08/31/17 08:06 08/31/17 08:06 Labs: Abnormal Lab Results - Last 24 Hours (Table) 08/30/17 08/30/17 08/31/17 Range/Units 16:43 20:31 07:09 WBC (3.8-10.6) k/uL RBC (4.30-5.90) m/uL Hgb (13.0-17.5) gm/dL MCHC (31.0-37.0) g/dL Neutrophils # (1.3-7.7) k/uL Lymphocytes # (1.0-4.8) k/uL BUN (9-20) mg/dL Creatinine (0.66-1.25) mg/dL Glucose (74-99) mg/dL POC Glucose (mg/dL) 151 H 137 H 154 H (75-99) mg/dL Total Bilirubin (0.2-1.3) mg/dL ALT (21-72) U/L Alkaline Phosphatase (38-126) U/L 08/31/17 08/31/17 08/31/17 Range/Units 08:06 08:06 11:20 WBC 11.9 H (3.8-10.6) k/uL RBC 4.05 L (4.30-5.90) m/uL Hgb 12.1 L (13.0-17.5) gm/dL MCHC 30.6 L (31.0-37.0) g/dL Neutrophils # 10.0 H (1.3-7.7) k/uL Lymphocytes # 0.8 L (1.0-4.8) k/uL BUN 42 H (9-20) mg/dL Creatinine 2.30 H (0.66-1.25) mg/dL Glucose 211 H (74-99) mg/dL POC Glucose (mg/dL) 223 H (75-99) mg/dL Total Bilirubin 2.6 H (0.2-1.3) mg/dL ALT 75 H (21-72) U/L Alkaline Phosphatase 178 H (38-126) U/L Microbiology - Last 24 Hours (Table) 08/29/17 21:44 Blood Culture - Preliminary Blood No Growth after 24 hours 08/27/17 19:05 Blood Culture Gram Stain - Final Blood Blood Culture - Final Escherichia coli Assessment and Plan Assessment: Impression Present on admission abdominal pain febrile suspect due to acute calculus cholecystitis Postop 29 of August laparoscopic cholecystectomy for acute calculus cholecystitis Large asymptomatic umbilical hernia Persistent febrile Present on admission elevated liver enzymes trending down Plan Follow-up on pending computed tomography scan abdomen and pelvis Continue postop surgical care Pain control IV antibiotics per infectious disease PT OT eval Will follow with you with further surgical recommendations DVT and GI prophylaxis Await further input by GI service for the elevated liver enzymes The above impression and plan of care have been discussed and directed by signing physicianColin Cowan nurse practitioner acting as scribe for signing physician. <Abad Vela - Last Filed: 08/31/17 13:10> Objective - Vital Signs Vital signs: Vital Signs Temp 100.0 F H 08/31/17 06:20 Pulse 88 08/31/17 06:20 Resp 16 08/31/17 06:20 BP 169/71 08/31/17 06:20 Pulse Ox 95 08/31/17 06:20 Intake & Output 08/30/17 08/31/17 08/31/17 18:59 06:59 18:59 Intake Total 0 Output Total 400 800 Balance -400 -800 Intake: Oral 0 Output: Urine 400 800 Other: Voiding Method Urinal Urinal Urinal Diaper Diaper Diaper Incontinent Incontinent Incontinent # Voids 1 2 2 # Bowel Movements 1 - Labs CBC & Chem 7: 08/31/17 08:06 08/31/17 08:06 Labs: Abnormal Lab Results - Last 24 Hours (Table) 08/30/17 08/30/17 08/31/17 Range/Units 16:43 20:31 07:09 WBC (3.8-10.6) k/uL RBC (4.30-5.90) m/uL Hgb (13.0-17.5) gm/dL MCHC (31.0-37.0) g/dL Neutrophils # (1.3-7.7) k/uL Lymphocytes # (1.0-4.8) k/uL BUN (9-20) mg/dL Creatinine (0.66-1.25) mg/dL Glucose (74-99) mg/dL POC Glucose (mg/dL) 151 H 137 H 154 H (75-99) mg/dL Total Bilirubin (0.2-1.3) mg/dL ALT (21-72) U/L Alkaline Phosphatase (38-126) U/L 08/31/17 08/31/17 08/31/17 Range/Units 08:06 08:06 11:20 WBC 11.9 H (3.8-10.6) k/uL RBC 4.05 L (4.30-5.90) m/uL Hgb 12.1 L (13.0-17.5) gm/dL MCHC 30.6 L (31.0-37.0) g/dL Neutrophils # 10.0 H (1.3-7.7) k/uL Lymphocytes # 0.8 L (1.0-4.8) k/uL BUN 42 H (9-20) mg/dL Creatinine 2.30 H (0.66-1.25) mg/dL Glucose 211 H (74-99) mg/dL POC Glucose (mg/dL) 223 H (75-99) mg/dL Total Bilirubin 2.6 H (0.2-1.3) mg/dL ALT 75 H (21-72) U/L Alkaline Phosphatase 178 H (38-126) U/L Microbiology - Last 24 Hours (Table) 08/29/17 21:44 Blood Culture - Preliminary Blood No Growth after 24 hours 08/27/17 19:05 Blood Culture Gram Stain - Final Blood Blood Culture - Final Escherichia coli Assessment and Plan Assessment: As above. Patient doing better today. Liver enzymes improving. He did have an episode of vomiting again last night. Fevers are improved. Repeat labs tomorrow. (1) Acute cholecystitis Current Visit: Yes Status: Acute Code(s): K81.0 - ACUTE CHOLECYSTITIS SNOMED Code(s): 22881153
[2017-08-31] MEDS: INSULIN DETEMIR 100 UNIT/ML 10 ML VIAL SQ SCH (12:52)
[2017-08-31] MEDS: [UNRECOGNIZED DRUG - OTHER] PO SCH (13:01)
--- NOTE | 2017-08-31 13:01 | CT ---
"EXAMINATION TYPE: CT abdomen pelvis wo con DATE OF EXAM: 08/31/2017 COMPARISON: 03/27/2012 HISTORY: 66-year-old male Fever and midline pain CT DLP: 2147.10 mGycm. Automated exposure control for dose reduction was used. TECHNIQUE: Contiguous axial scanning of the abdomen and pelvis without IV contrast. Coronal and sagit gina reconstructions performed. FINDINGS: The heart is upper limits of normal in size without pericardial effusion. Coronary vessel calcificati ons are present and are remarkable for coronary artery disease. There is patchy groundglass in the left lower lobe and mild dependent atelectasis. Partially visualiz ed mild bilateral gynecomastia. There is a small hiatal hernia with stable nonenlarged periesophageal lymph nodes in the lower thorax . Noncontrast appearance of the liver, adrenal and glands and spleen appear within normal limits. Borde rline sized 1.5 cm portacaval lymph node slightly increased from 1.3 cm in 2012. There is some focal nodular soft tissue prominence along the inferior pancreatic head, axial image 38 and coronal image 48. Lack of IV contrast limits assessment. Cholecystectomy clips. Moderate sized omental fat-containing umbilical hernia measures 7.0 x 8.7 x 9.4 cm. Stable to minimal ly larger as compared to 03/27/2012. This contains some foci of air and a larger 2.7 cm pocket of nond ependent free air. Additional small foci of air are present in the subcutaneous fat of the epigastric region and along the mid to lower anterior abdominal wall musculature. Suggestion of subcutaneous in jections along the bilateral lower abdomen and tiny focus of air adjacent on the right, axial image 7 0. 1.0 cm hypodense cortical lesion peripheral lower pole right kidney may be new. A 2.6 cm hypodense le gregg, likely cyst lateral lower pole left kidney appears new. A 1.9 cm exophytic hypodense lesion upp er pole left kidney is larger versus 1.5 cm in 2012 suggestive of a cyst. A couple mildly dilated jejunal loops in the left mid abdomen probably transient. No transition point is seen. No associated wall thickening or surrounding inflammation. Scattered mild to moderate stool. There is pericolonic fat stranding at the hepatic flexure. Bladder urine distended. Prostate gland is enlarged at 5.1 cm wide. Mild impression onto the posterio r bladder base. Small pelvic phleboliths. No abnormal fluid collection in the pelvis or pelvic lympha denopathy seen. Bones: Moderate to severe degenerative changes of the hips. Degenerative bony ankylosis at the SI isabelle nts. Degenerative changes throughout the lumbar spine-within the thoracic spine. There are bilateral L5 pars defects with grade 1 anterolisthesis at L5-S1. Neuroforaminal narrowing on both sides at L5-S 1. No osseous destructive process. IMPRESSION: 1. Focal fat stranding at the hepatic flexure. Differential would be a localized infectious, inflamm atory, or ischemic colitis. Correlate with patient's symptoms and lactic acid levels. 2. There are tiny foci of air and a 2.6 cm pocket of free air in the patient's moderate sized fatty umbilical hernia. Additional tiny foci of air along the anterior abdominal wall musculature and some foci in the anterior subcutaneous fat. Some of these foci relate to subcutaneous injections. Other fo ci may be present within small veins. Some degree of free intraperitoneal air such as in the setting of an ischemic colitis is not excluded at this time. Clinical correlation and again, correlation with lactic acid levels is recommended. 3. Some nodular soft tissue prominence along the inferior pancreatic head. Additional renal lesions which are too small for accurate CT characterization but a couple that are new from 2012. Recommend p ancreas MRI to further evaluate both of these findings. A pancreatic head mass should be excluded. 4. Patchy groundglass left lower lobe. Early for any infectious respiratory signs/symptoms to exclud e pneumonia. 5. Prostatomegaly and probable BPH. 6. L5 pars defects with grade 1 L5-S1 anterolisthesis. Multilevel degenerative changes in the spine, hips, and SI joints. A Red message has been communicated to Luke Woods MD via the [employer] | Critical Result syst em on 08/31/2017 12:59 PM, Message ID [id number]."
[2017-08-31 14:26] LABS: Hepatitis BE Antibody NEG (Negative); Hepatitis BE Antigen NEG (Negative)
[2017-08-31 16:49] LABS: Glucose,Whole Blood 186 mg/dL (75-99)
[2017-08-31 20:05] LABS: Glucose,Whole Blood 187 mg/dL (75-99)
[2017-08-31] MEDS: ATORVASTATIN 20 MG TAB PO SCH (20:27)
--- NOTE | 2017-08-31 20:29 | PN ---
PROGRESS NOTE DATE OF SERVICE: 08/31/2017 INTERIM HISTORY: This 66-year-old gentleman who was admitted with acute cholecystitis and sepsis, underwent laparoscopic cholecystectomy. Patient is running fever. The patient had abdominal and pelvis CAT scan. Dr. Vela is following the patient closely as well as gastroenterology. The CT scan showed focal fat stranding and tiny foci air in the umbilical hernia, subcutaneous injections and patchy ground-glass opacities of the left lower lobe also. Dr. Vela has evaluated the CT scan. The chest x-ray done yesterday is noted. PAST MEDICAL HISTORY: Reviewed. REVIEW OF SYSTEMS: Cardiovascular: No angina. Respiration: As mentioned earlier. GI as mentioned earlier. mentioned earlier. Central nervous system: No numbness or weakness. CURRENT MEDICATIONS ARE: Current medications are reviewed and include: 1. Tylenol 650 q.6 hours. 2. [place] 10 mg. 3. DuoNeb q.i.d. and p.r.n. 4. Zyloprim. 5. Norvasc 5 mg p.o. daily. 6. Aspirin 81 mg. 7. Lipitor 20 mg q.h.s. 8. Rocaltrol. 9. Vitamin D3. 10.Iron sulfate. 11.Neurontin. 12.Heparin. 13.Apresoline. 14.Levemir. 15.Claritin. 16.Magnesium oxide. 17.Zofran. 18.Protonix. 19.Zosyn IV. PHYSICAL EXAM: Patient is alert, oriented times three. Pulse is 78, blood pressure 143/60, respirations 16, temperature 98.2, pulse ox 99% on room air. HEENT: Conjunctivae normal. Neck: No jugular venous distention. CARDIOVASCULAR: S1, S2 muffled. Respirations: Breath sounds diminished in the bases. Scattered rhonchi and crackles. ABDOMEN: Soft status post surgery. Legs are no edema. No swelling. Central nervous system: No focal deficits. LABS: WBC 11.1, hemoglobin 12.9, creatinine is 2.30. ASSESSMENT: 1. Acute cholecystitis with sepsis with possibly E coli cholecystitis status post laparoscopic cholecystectomy. 2. Continued fever. 3. Possible left lower lobe atelectasis pneumonitis. 4. Chronic kidney disease stage 3. 5. Diabetes type 2. 6. Chronic obstructive pulmonary disease. 7. Congestive heart failure with chronic diastolic dysfunction ejection fraction 55- 60%. 8. History of coronary artery disease. 9. Hypertension. 10.Hyperlipidemia. 11.Gastroesophageal reflux disease. 12.Coronary artery disease, stent. 13.History of chronic left upper extremity wound followed by Dr. Campuzano. RECOMMENDATIONS AND DISCUSSION: Recommend continue current medications, management and symptomatic treatment. Otherwise continue the antibiotics. Monitor fluid and electrolytes balance closely. Guarded prognosis because of multiple complex medical issues. Incentive spirometry. I would also add a course of bronchodilators. Closely follow with Dr. Vela. Further recommendations to follow. Monitor blood sugars closely. We will cutdown the IV fluids. MMODL / IJN: [id number] /
--- NOTE | 2017-08-31 23:10 | P.PN ---
Subjective Progress Note Date: 08/31/17 Principal diagnosis: Fever 66-year-old male well-known to the infectious disease service for the care of the patient related to his recurrent lesions to the lower extremities and bouts of cellulitis. The patient's brought him emergency center because of patient had become ill with some altered mental status, generalized weakness, nausea abdominal pain and about of emesis. Because of this he was evaluated in emergency center and had evidence of sepsis and evidence of abnormal liver function tests in consequently ultrasound was performed that showed evidence of the significant cholecystitis and leukocytosis. He was evaluated general surgery and was taken to Her room today for the laparoscopic cholecystectomy. Patient is without evidence of possible cultures gram- negative bacilli and constantly infectious diseases consultation was requested as well as request for some care to the left lower extremity chronic venous stasis ulcerations. The patient's postoperative and is still having some nausea. He's had significant fever slightly improved at this time. He feels poorly and his mentation is poor. 08/30/2017 as noted the patient is status post cholecystectomy, he had significant postoperative fever but is somewhat improved. He was sitting upright reading atrial on his cell phone. Relates that he is without significant or severe abdominal pain but does have some postoperative discomfort. Denies nausea or emesis. His high-grade fevers and chills have all resolved this evening and he has no other new acute complaints. 08/31/2017 reveals the patient to have further improvement. He is now afebrile. Having no fevers or chills. Computed tomography scan is reviewed without evidence of intra-abdominal abscess or evidence of cholangitis. The patient is eating food without great difficulties or nausea or emesis. He is aware that his fever has resolved his abdominal pain is improving. He is having some mild burning to the left lower extremity chronic area of ulceration. Objective - Vital Signs Vital signs: Vital Signs Temp 98.0 F 08/31/17 22:56 Pulse 83 08/31/17 22:56 Resp 16 08/31/17 22:56 BP 151/72 08/31/17 22:56 Pulse Ox 93 L 08/31/17 22:56 Intake & Output 08/31/17 08/31/17 09/01/17 06:59 18:59 06:59 Output Total 800 Balance -800 Output: Urine 800 Other: Voiding Method Urinal Urinal Diaper Diaper Incontinent Incontinent # Voids 2 2 # Bowel Movements 1 - Exam 66-year-old male who is feeling better now a day after surgery, abdominal pain is improved. Sitting up feeling somewhat comfortable HEENT: Anicteric conjunctiva are pink and moist nasal mucosa grossly intact without significant lesions, there is no thrush. Neck: The neck is supple without significant lymphadenopathy or thyromegaly. Lungs: Good bilateral air entry without significant crackles or wheezing. There is no significant bronchial sounds. There is no egophony or dullness. Heart: Regular rate and rhythm with an audible S1-S2, no S3 loud S4. There is no significant murmur click or rub, PMI was nondisplaced. Abdomen: Mildly distended and obese the chronic hernia umbilical is without change. The abdomen is tender especially at the surgical site where the drain is in place. Extremities: The upper extremities have excellent pulses they are symmetric, no significant petechiae or telangiectasia. No splinter hemorrhages were noted. Right lower extremity has no acute lesions. Left lower extremity has had the significant ulcerations being cared for the wound healing Center. The dressing is removed and there is near healing of the prior extensive ulcerations. He is complaining of a bit of discomfort in this area but again it is much improved The peripheral pulses were 2+ and symmetric. Neuro: Awake and alert and recognizes me immediately upon entering the room by name . No new acute gross focal sensory motor deficits his bit of confusion admission is much improved - Labs CBC & Chem 7: 08/31/17 08:06 08/31/17 08:06 Labs: Abnormal Lab Results - Last 24 Hours (Table) 08/31/17 08/31/17 08/31/17 Range/Units 07:09 08:06 08:06 WBC 11.9 H (3.8-10.6) k/uL RBC 4.05 L (4.30-5.90) m/uL Hgb 12.1 L (13.0-17.5) gm/dL MCHC 30.6 L (31.0-37.0) g/dL Neutrophils # 10.0 H (1.3-7.7) k/uL Lymphocytes # 0.8 L (1.0-4.8) k/uL BUN 42 H (9-20) mg/dL Creatinine 2.30 H (0.66-1.25) mg/dL Glucose 211 H (74-99) mg/dL POC Glucose (mg/dL) 154 H (75-99) mg/dL Total Bilirubin 2.6 H (0.2-1.3) mg/dL ALT 75 H (21-72) U/L Alkaline Phosphatase 178 H (38-126) U/L 08/31/17 08/31/17 08/31/17 Range/Units 11:20 16:42 20:02 WBC (3.8-10.6) k/uL RBC (4.30-5.90) m/uL Hgb (13.0-17.5) gm/dL MCHC (31.0-37.0) g/dL Neutrophils # (1.3-7.7) k/uL Lymphocytes # (1.0-4.8) k/uL BUN (9-20) mg/dL Creatinine (0.66-1.25) mg/dL Glucose (74-99) mg/dL POC Glucose (mg/dL) 223 H 186 H 187 H (75-99) mg/dL Total Bilirubin (0.2-1.3) mg/dL ALT (21-72) U/L Alkaline Phosphatase (38-126) U/L Microbiology - Last 24 Hours (Table) 08/29/17 21:44 Blood Culture - Preliminary Blood No Growth after 24 hours Laboratory Results WBC 11.9 k/uL (3.8-10.6) H 08/31/17 08:06 RBC 4.05 m/uL (4.30-5.90) L 08/31/17 08:06 Hgb 12.1 gm/dL (13.0-17.5) L 08/31/17 08:06 Hct 39.5 % (39.0-53.0) 08/31/17 08:06 MCV 97.3 fL (80.0-100.0) 08/31/17 08:06 MCH 29.8 pg (25.0-35.0) 08/31/17 08:06 MCHC 30.6 g/dL (31.0-37.0) L 08/31/17 08:06 RDW 14.8 % (11.5-15.5) 08/31/17 08:06 Plt Count 216 k/uL (150-450) 08/31/17 08:06 Neutrophils % 84 % 08/31/17 08:06 Lymphocytes % 7 % 08/31/17 08:06 Monocytes % 6 % 08/31/17 08:06 Eosinophils % 0 % 08/31/17 08:06 Basophils % 0 % 08/31/17 08:06 Neutrophils # 10.0 k/uL (1.3-7.7) H 08/31/17 08:06 Lymphocytes # 0.8 k/uL (1.0-4.8) L 08/31/17 08:06 Monocytes # 0.7 k/uL (0-1.0) 08/31/17 08:06 Eosinophils # 0.0 k/uL (0-0.7) 08/31/17 08:06 Basophils # 0.0 k/uL (0-0.2) 08/31/17 08:06 Hypochromasia Slight 08/31/17 08:06 PT 11.4 sec (9.0-12.0) 08/28/17 07:08 INR 1.2 (<1.2) H 08/28/17 07:08 APTT 23.9 sec (22.0-30.0) 08/28/17 07:08 Sodium 144 mmol/L (137-145) 08/31/17 08:06 Potassium 4.4 mmol/L (3.5-5.1) 08/31/17 08:06 Chloride 103 mmol/L (98-107) 08/31/17 08:06 Carbon Dioxide 24 mmol/L (22-30) 08/31/17 08:06 Anion Gap 17 mmol/L 08/31/17 08:06 BUN 42 mg/dL (9-20) H 08/31/17 08:06 Creatinine 2.30 mg/dL (0.66-1.25) H 08/31/17 08:06 Est GFR (MDRD) Af Amer 35 (>60 ml/min/1.73 sqM) 08/31/17 08:06 Est GFR (MDRD) Non-Af 29 (>60 ml/min/1.73 sqM) 08/31/17 08:06 Glucose 211 mg/dL (74-99) H 08/31/17 08:06 POC Glucose (mg/dL) 187 mg/dL (75-99) H 08/31/17 20:02 POC Glu [employer] Seat Cover Installer ID Iqra Hannah 08/31/17 20:[address] Glu mg/dL 194 08/28/17 07:08 Hemoglobin A1c 8.4 % (4.0-6.0) H 08/28/17 07:08 Plasma Lactic Acid Anthony 1.1 mmol/L (0.7-2.0) 08/29/17 21:44 Calcium 9.8 mg/dL (8.4-10.2) 08/31/17 08:06 Total Bilirubin 2.6 mg/dL (0.2-1.3) H 08/31/17 08:06 AST 53 U/L (17-59) 08/31/17 08:06 ALT 75 U/L (21-72) H 08/31/17 08:06 Alkaline Phosphatase 178 U/L (38-126) H 08/31/17 08:06 Total Protein 6.6 g/dL (6.3-8.2) 08/31/17 08:06 Albumin 3.5 g/dL (3.5-5.0) 08/31/17 08:06 Lipase 211 U/L (23-300) 08/27/17 23:11 Urine Color Yellow 08/27/17 20:10 Urine Appearance Clear (Clear) 08/27/17 20:10 Urine pH 5.5 (5.0-8.0) 08/27/17 20:10 Ur Specific [place] 1.010 (1.001-1.035) 08/27/17 20:10 Urine Protein 1+ (Negative) H 08/27/17 20:10 Urine Glucose (UA) Trace (Negative) H 08/27/17 20:10 Urine Ketones Negative (Negative) 08/27/17 20:10 Urine Blood Negative (Negative) 08/27/17 20:10 Urine Nitrite Negative (Negative) 08/27/17 20:10 Urine Bilirubin Negative (Negative) 08/27/17 20:10 Urine Urobilinogen <2.0 mg/dL (<2.0) 08/27/17 20:10 Ur Leukocyte Esterase Negative (Negative) 08/27/17 20:10 Urine WBC <1 /hpf (0-5) 08/27/17 20:10 Urine Bacteria Rare /hpf (None) H 08/27/17 20:10 Gastric Occult Blood Positive (Negative) 08/31/17 03:26 Hepatitis A IgM Ab Non-Reactive (Non-Reactive) 08/27/17 19:05 Hep Bs Antigen Non-Reactive (Non-Reactive) 08/30/17 07:51 Hep B Core IgM Ab Reactive (Non-Reactive) H 08/27/17 19:05 Hepatitis Be Antibody NEG (Negative) 08/30/17 07:51 Hepatitis Be Antigen NEG (Negative) 08/30/17 07:51 Hep C IgG Ab Non-Reactive (Non-Reactive) 08/27/17 19:05 Influenza Type A RNA Not Detected (Not Detectd) 08/27/17 19:05 Influenza Type B (PCR) Not Detected (Not Detectd) 08/27/17 19:05 Microbiology 08/29/17 21:44 Blood Blood Culture - Preliminary No Growth after 24 hours 08/27/17 19:05 Blood Blood Culture Gram Stain - Final 08/27/17 19:05 Blood Blood Culture - Final Escherichia coli 08/27/17 20:10 Urine,Catheterized Urine Culture - Final 08/27/17 19:05 Blood Blood Culture - Final Assessment and Plan (1) Acute cholecystitis Narrative/Plan: 66 show male presents to Hospital with his because of some altered mental status feeling poorly with abdominal pain nausea and fever. Was on evidence of acute cholecystitis is not taking the operating room and has had the laparoscopic cholecystectomy. Postoperatively the patient is not feeling very well. Still having fever and some nausea and nursing has related to some emesis. Pain control appears to be adequate. He is having some altered mental status from anesthesia and his current sepsis. Laboratories call gram-negative bacilli in the blood culture. We'll alter antibiotic therapy from Unasyn to Zosyn given his ongoing fevers. Will offer intravenous Tylenol also. Continue with fluids and supportive care. As far as the left leg will utilize the Aquacel foam this area rolled gauze and Pastor wrap to be utilized to help control the edema to prevent any further new difficulties at that site and actually has had significant improvement with the multilayer wraps up in applied at the wound healing Center. Leukocytosis due to his current gram-negative sepsis as is his fever. Patient did have abnormal liver function tests and consequently hepatitis testing was performed because of the current hepatitis A outbreak and surprising hepatitis B core antibody IgM was found. We'll do further workup for hepatitis B and it's possible current activity. 08/30/2017 reveals the patient is feeling better. He is without new acute difficulties and is feeling considerably better with reduction of his fever. His bilirubin did increase and MRCP has been requested by gastroenterology. This will help determine the next steps. Still awaiting verification of the activity was hepatitis B. Continue with local care to his left leg which he is tolerating well and showing improvement. 08/31/2017 reveals the patient with further improvement. He is eating solids for his dinner. Denies further fevers or chills. Abdominal pain is improving. The left lower extremity is rewrapped with a zinc-based dressing which he finds to be very soothing and tolerated well. This should be changed daily for now. Continue to elevate the limb. With his current illness and the protracted elevation of the leg it is quite remarkable how much improvement there as occurred already. The hepatitis B workup is in process and he is negative for hepatitis B E antigen and antibody. Viral load is pending. Total bilirubin is improving without evidence of cholangitis. The E. coli that has been found in his blood culture is quite susceptible and will be able to be treated with oral antibiotic therapy at his discharge. Current Visit: Yes Status: Acute Code(s): K81.0 - ACUTE CHOLECYSTITIS SNOMED Code(s): 69378361 (2) Hepatitis B core antibody positive Current Visit: Yes Status: Acute Code(s): R76.8 - OTHER SPECIFIED ABNORMAL IMMUNOLOGICAL FINDINGS IN SERUM SNOMED Code(s): 819813388 (3) Obesity, Class III, BMI 40-49.9 (morbid obesity) Current Visit: No Status: Acute Code(s): E66.01 - MORBID (SEVERE) OBESITY DUE TO EXCESS CALORIES SNOMED Code(s): 009546365 (4) Bilateral lower extremity edema Current Visit: No Status: Acute Code(s): R60.0 - LOCALIZED EDEMA SNOMED Code(s): 886140632 (5) Gram negative sepsis Current Visit: Yes Status: Acute Code(s): A41.50 - GRAM-NEGATIVE SEPSIS, UNSPECIFIED SNOMED Code(s): 049746310
[2017-09-01] MEDS: ONDANSETRON 4 MG/2 ML VIAL IVP PRN (02:42)
[2017-09-01] MEDS: HYDROcodone/APAP 10-325MG 1 EACH TAB PO PRN ×3 (05:12→21:47)
[2017-09-01 07:20] LABS: Glucose,Whole Blood 169 mg/dL (75-99)
[2017-09-01] MEDS: IPRATROPIUM-ALBUTEROL 3 ML NEB INHALATION SCH ×4 (07:25→19:25)
[2017-09-01 07:39] LABS: Basophils % (A) 0 %; Eosinophils # (A) 0.2 k/uL (0-0.7); Eosinophils % (A) 2 %; HCT 36.6 % (39.0-53.0); HGB 11.3 gm/dL (13.0-17.5); Lymphocytes # (A) 1.1 k/uL (1.0-4.8); Lymphocytes % (A) 10 %; MCH 29.7 pg (25.0-35.0); MCHC 30.9 g/dL (31.0-37.0); Mean Platelet Volume 7.3; Monocytes # (A) 0.7 k/uL (0-1.0); Monocytes % (A) 6 %; Neutrophils # (A) 8.5 k/uL (1.3-7.7); Neutrophils % (A) 79 %; Platelet Count 251 k/uL (150-450); RBC 3.81 m/uL (4.30-5.90); RDW 14.7 % (11.5-15.5); WBC 10.8 k/uL (3.8-10.6)
--- NOTE | 2017-09-01 07:56 | XR ---
EXAMINATION TYPE: XR chest 2V DATE OF EXAM: 09/01/2017 COMPARISON: Prior chest x-ray 08/30/2017 HISTORY: Pneumonia TECHNIQUE: Frontal and lateral views of the chest are obtained. FINDINGS: Some perihilar increased attenuation on the right likely reflects focal atelectasis. No pn eumothorax or pleural effusion. Cardiomediastinal silhouette, pulmonary vascularity and jose not sign ificantly changed. There are overlying cardiac leads. Patient is rotated. IMPRESSION: Suspect some perihilar atelectasis, follow-up suggested.
[2017-09-01 08:07] LABS: Albumin 3.5 g/dL (3.5-5.0); Calcium 9.4 mg/dL (8.4-10.2); Potassium 4.1 mmol/L (3.5-5.1); Total Bilirubin 1.9 mg/dL (0.2-1.3); Total Protein 6.6 g/dL (6.3-8.2)
[2017-09-01] MEDS: PIPERACILLIN-TAZOBACTAM 3.375 GM in DEXTROSE/WATER 1 50ML.BAG IVPB SCH ×3 (08:29→23:14)
[2017-09-01] MEDS: INSULIN ASPART 100 UNIT/ML 1 ML 10 ML VIAL SQ SCH ×4 (08:29→21:48)
[2017-09-01] MEDS: SODIUM POLYSTYRENE SULFONATE 15 GM/60 ML BOTTLE PO SCH (08:32)
[2017-09-01] MEDS: HEPARIN SODIUM,PORCINE 5,000 UNIT/ML 1 ML VIAL SQ SCH ×2 (08:33→20:13)
[2017-09-01] MEDS: hydrALAZINE HCL 50 MG TAB PO SCH ×3 (08:36→21:47)
[2017-09-01] MEDS: ASPIRIN 81 MG PO SCH (08:36)
[2017-09-01] MEDS: FERROUS SULFATE 325 MG TAB PO SCH (08:36)
[2017-09-01] MEDS: MAGNESIUM OXIDE 400 MG TAB PO SCH (08:37)
[2017-09-01] MEDS: amLODIPine 5 MG TAB PO SCH ×2 (08:37→20:13)
[2017-09-01] MEDS: CHOLECALCIFEROL 1,000 UNIT TAB PO SCH (08:37)
[2017-09-01] MEDS: GABAPENTIN 300 MG CAP PO SCH ×3 (08:37→21:47)
[2017-09-01] MEDS: CALCITRIOL 0.25 MCG CAP PO SCH (08:37)
[2017-09-01] MEDS: ALLOPURINOL 100 MG TAB PO SCH (08:59)
[2017-09-01] MEDS ORDERED: PANTOPRAZOLE 40 MG/10 ML VIAL IVP SCH (09:00)
--- NOTE | 2017-09-01 09:26 | P.PN ---
Subjective Progress Note Date: 09/01/17 Principal diagnosis: elevated liver enzymes 66-year-old male history of cholelithiasis postop day #3 laparoscopic cholecystectomy. T-max 100.0 24 hours. LFTs improved today; total bilirubin 1.9. AST 50. Alkaline phosphatase 170. ALT 69. Hepatitis B core IgM antibody reactive. Hepatitis B surface antigen nonreactive. Hepatitis BE antigen/antibody negative; quantitative DNA measurement pending. CT abdomen completed yesterday reported some nodular soft tissue prominence along the inferior pancreatic head. Pancreatic head mass could not be excluded. CA-19-9 12.1. Presently resting, comfortably in bedside chair. Feels better. Tolerating diet. Objective - Vital Signs Vital signs: Vital Signs Temp 98.8 F 09/01/17 06:33 Pulse 84 09/01/17 07:35 Resp 16 09/01/17 06:33 BP 149/84 09/01/17 06:33 Pulse Ox 93 L 09/01/17 06:33 Intake & Output 08/31/17 09/01/17 09/01/17 18:59 06:59 18:59 Weight 140.5 kg Other: Voiding Method Urinal Diaper Incontinent # Voids 2 1 # Bowel Movements 1 - Exam General appearance: The patient is alert, oriented, in no acute distress. HET: Head is normocephalic and atraumatic. Pupils are equal and reactive. Oropharynx is clear without lesions. Neck: Supple without lymphadenopathy. Trachea midline. Heart: S1 S2. Regular rate and rhythm. Lungs: No crackles or wheezes are heard. Abdomen: Soft, mild incisional tenderness surgical dressings clean, nondistended with bowel sounds. Reducible umbilical hernia. No peritoneal signs. No palpable organomegaly or masses. Extremities: Normal skin color and turgor. No cyanosis, rash, ulceration, clubbing, or edema. Radial and pedal pulses are 2/4 bilaterally. Neurological: No focal deficits. Strength and sensation are grossly intact. - Labs CBC & Chem 7: 09/01/17 07:16 09/01/17 07:16 Labs: Abnormal Lab Results - Last 24 Hours (Table) 08/31/17 08/31/17 08/31/17 Range/Units 11:20 16:42 20:02 WBC (3.8-10.6) k/uL RBC (4.30-5.90) m/uL Hgb (13.0-17.5) gm/dL Hct (39.0-53.0) % MCHC (31.0-37.0) g/dL Neutrophils # (1.3-7.7) k/uL BUN (9-20) mg/dL Creatinine (0.66-1.25) mg/dL Glucose (74-99) mg/dL POC Glucose (mg/dL) 223 H 186 H 187 H (75-99) mg/dL Total Bilirubin (0.2-1.3) mg/dL Alkaline Phosphatase (38-126) U/L 09/01/17 09/01/17 09/01/17 Range/Units 06:46 07:16 07:16 WBC 10.8 H (3.8-10.6) k/uL RBC 3.81 L (4.30-5.90) m/uL Hgb 11.3 L (13.0-17.5) gm/dL Hct 36.6 L (39.0-53.0) % MCHC 30.9 L (31.0-37.0) g/dL Neutrophils # 8.5 H (1.3-7.7) k/uL BUN 43 H (9-20) mg/dL Creatinine 2.33 H (0.66-1.25) mg/dL Glucose 163 H (74-99) mg/dL POC Glucose (mg/dL) 169 H (75-99) mg/dL Total Bilirubin 1.9 H (0.2-1.3) mg/dL Alkaline Phosphatase 170 H (38-126) U/L Microbiology - Last 24 Hours (Table) 08/29/17 21:44 Blood Culture - Preliminary Blood No Growth after 48 hours Assessment and Plan Assessment: Impression: 1. Epigastric pain cholelithiasis cholecystitis E. coli bacteremia sepsis status post laparoscopic cholecystectomy with postoperative development of fever and liver enzymes with positive hepatitis B core IgM antibody with negative hepatitis B surface antigen, hepatitis Be antibody antigen serology negative most likely false positivity however quantitative DNA pending. Improvement in LFTs therefore ERCP not planned at this time. 2. Possible pancreatic head mass per CT imaging. Plan: 1. Outpatient open MRI [address] findings; GI office will schedule. Possible outpatient endoscopic ultrasound pending MRI findings. 2. Await hepatitis B quantitative DNA measurement; possible false positivity. 3. Continue with antibiotics. Diet as tolerated. We'll continue to follow with you. Assessment and plan of care discussed with Dr. Herman
[2017-09-01 11:29] LABS: Glucose,Whole Blood 302 mg/dL (75-99)
--- NOTE | 2017-09-01 12:03 | P.PN ---
Subjective Progress Note Date: 09/01/17 Principal diagnosis: Acute cholecystitis Patient feels better today. No nausea or vomiting. Tolerating diet. He is now ambulating although still feels weak. He is essentially afebrile. Labs improving. CAT scan report from yesterday noted. Objective - Vital Signs Vital signs: Vital Signs Temp 98.8 F 09/01/17 06:33 Pulse 72 09/01/17 11:21 Resp 16 09/01/17 08:00 BP 149/84 09/01/17 06:33 Pulse Ox 93 L 09/01/17 06:33 Intake & Output 08/31/17 09/01/17 09/01/17 18:59 06:59 18:59 Intake Total 600 Balance 600 Weight 140.5 kg Intake: Oral 600 Other: Voiding Method Urinal Urinal Diaper Diaper Incontinent Incontinent # Voids 2 1 1 # Bowel Movements 1 - Exam Abdomen: Soft, nondistended, incision clean and dry - Labs CBC & Chem 7: 09/01/17 07:16 09/01/17 07:16 Labs: Abnormal Lab Results - Last 24 Hours (Table) 08/31/17 08/31/17 09/01/17 Range/Units 16:42 20:02 06:46 WBC (3.8-10.6) k/uL RBC (4.30-5.90) m/uL Hgb (13.0-17.5) gm/dL Hct (39.0-53.0) % MCHC (31.0-37.0) g/dL Neutrophils # (1.3-7.7) k/uL BUN (9-20) mg/dL Creatinine (0.66-1.25) mg/dL Glucose (74-99) mg/dL POC Glucose (mg/dL) 186 H 187 H 169 H (75-99) mg/dL Total Bilirubin (0.2-1.3) mg/dL Alkaline Phosphatase (38-126) U/L 09/01/17 09/01/17 09/01/17 Range/Units 07:16 07:16 11:20 WBC 10.8 H (3.8-10.6) k/uL RBC 3.81 L (4.30-5.90) m/uL Hgb 11.3 L (13.0-17.5) gm/dL Hct 36.6 L (39.0-53.0) % MCHC 30.9 L (31.0-37.0) g/dL Neutrophils # 8.5 H (1.3-7.7) k/uL BUN 43 H (9-20) mg/dL Creatinine 2.33 H (0.66-1.25) mg/dL Glucose 163 H (74-99) mg/dL POC Glucose (mg/dL) 302 H (75-99) mg/dL Total Bilirubin 1.9 H (0.2-1.3) mg/dL Alkaline Phosphatase 170 H (38-126) U/L Microbiology - Last 24 Hours (Table) 08/29/17 21:44 Blood Culture - Preliminary Blood No Growth after 48 hours Assessment and Plan (1) Acute cholecystitis Narrative/Plan: Continue diet as tolerated. Continue antibiotics per infectious disease. Agree with GI plans for outpatient MRI and follow-up. Current Visit: Yes Status: Acute Code(s): K81.0 - ACUTE CHOLECYSTITIS SNOMED Code(s): 13690125
[2017-09-01] MEDS: SODIUM CHLORIDE 0.9% 1,000 ML IV SCH (13:02)
[2017-09-01] MEDS: INSULIN DETEMIR 100 UNIT/ML 10 ML VIAL SQ SCH (13:03)
[2017-09-01 15:13] LABS: Hepatitis B Virus DNA Not detected (Not detected); Hepatitis B Virus DNA, Quant <10 IU/mL (<10); Log HBV IU/mL <1.00 (<1.00)
[2017-09-01 16:49] LABS: Glucose,Whole Blood 250 mg/dL (75-99)
[2017-09-01] MEDS: SYMBICORT 160-4.5 MCG INHALER INHALATION SCH (19:34)
--- NOTE | 2017-09-01 19:57 | PN ---
PROGRESS NOTE DATE OF SERVICE: 09/01/2017 This 66-year-old gentleman who was admitted with acute cholecystis and sepsis is being closely monitored at this time. The patient is on broad-spectrum IV antibiotics. The most recent chest x-ray done yesterday showed some atelectasis in the perihilar region. Past medical history reviewed. REVIEW OF SYSTEMS: CARDIOVASCULAR SYSTEM: No angina, palpitations. RESPIRATORY SYSTEM: As mentioned earlier. GI: As mentioned earlier. : No dysuria or retention NERVOUS SYSTEM: No numbness, weakness. CURRENT MEDICATIONS: Current medications are reviewed and include: 1. Tylenol 650 q.6 p.r.n. 2. [place] 10 mg. 3. DuoNeb q.i.d. and p.r.n. 4. Zyloprim 100 mg. 5. Norvasc 5 mg p.o. b.i.d. 6. Aspirin 81 mg daily. 7. Lipitor 20 mg daily. 8. Rocaltrol. 9. Vitamin D3. 10.Iron sulfate. 11.Neurontin. 12.Apresoline. 13.Levemir. 14.Claritin. 15.Magnesium oxide. 16.Zosyn IV. PHYSICAL EXAMINATION: Patient is alert, oriented x3. Pulse 82, blood pressure 139/69, respiration 17, temperature 98.9, pulse ox 92% on room air. HEENT: Conjunctivae normal. NECK: No jugular venous distention. CARDIOVASCULAR SYSTEM: S1, S2 muffled. RESPIRATORY SYSTEM: Breath sounds diminished at the bases. A few rhonchi and crackles. ABDOMEN: Soft. Status post surgery. LEGS: No edema. No swelling. NERVOUS SYSTEM: No focal deficit. LABS: WBC 10.8, hemoglobin 11.3, creatinine 2.33. ASSESSMENT: 1. Acute cholecystis with sepsis with possible Escherichia coli, status post laparoscopic cholecystectomy. 2. Continued fever. 3. Possible left lower lobe atelectasis or pneumonitis. 4. Chronic kidney disease, stage III. 5. Diabetes mellitus, type 2. 6. Chronic obstructive pulmonary disease. 7. Congestive heart failure with chronic diastolic dysfunction; ejection fraction 55% to 60%. 8. History of coronary artery disease. 9. Hypertension. 10.Hyperlipidemia. 11.History of gastroesophageal reflux disease. 12.Coronary artery disease, stent. 13.History of chronic left lower extremity wound, followed by Dr. Campuzano. RECOMMENDATIONS AND DISCUSSION: I recommend to continue current medication, continue symptomatic treatment. Add Symbicort to the regimen. Continue the antibiotics, DVT prophylaxis. Otherwise, monitor creatinine closely. The patient is on subcutaneous heparin. Incentive spirometry. Increase ambulation. Closely follow with Surgery. Monitor blood sugars closely. Guarded prognosis. Further recommendations to follow. MMMATTL / ATILION: [id number] /
[2017-09-01] MEDS: FUROSEMIDE 10 MG/ML 4 ML VIAL IV SCH (20:12)
[2017-09-01] MEDS: ATORVASTATIN 20 MG TAB PO SCH (20:13)
[2017-09-01 20:53] LABS: Glucose,Whole Blood 185 mg/dL (75-99)
[2017-09-02] MEDS: IPRATROPIUM-ALBUTEROL 3 ML NEB INHALATION SCH ×4 (07:12→19:57)
[2017-09-02] MEDS: SYMBICORT 160-4.5 MCG INHALER INHALATION SCH ×2 (07:12→19:57)
[2017-09-02 07:31] LABS: Glucose,Whole Blood 124 mg/dL (75-99)
[2017-09-02] MEDS: FERROUS SULFATE 325 MG TAB PO SCH (07:34)
[2017-09-02] MEDS: MAGNESIUM OXIDE 400 MG TAB PO SCH (07:34)
[2017-09-02] MEDS: CHOLECALCIFEROL 1,000 UNIT TAB PO SCH (07:34)
[2017-09-02] MEDS: SODIUM POLYSTYRENE SULFONATE 15 GM/60 ML BOTTLE PO SCH (07:35)
[2017-09-02] MEDS: amLODIPine 5 MG TAB PO SCH ×2 (07:35→21:04)
[2017-09-02] MEDS: ALLOPURINOL 100 MG TAB PO SCH (07:35)
[2017-09-02] MEDS: PANTOPRAZOLE 40 MG TABLET PO SCH (07:35)
[2017-09-02] MEDS: ASPIRIN 81 MG PO SCH (07:35)
[2017-09-02] MEDS: GABAPENTIN 300 MG CAP PO SCH ×3 (07:35→21:04)
[2017-09-02] MEDS: hydrALAZINE HCL 50 MG TAB PO SCH ×3 (07:35→21:04)
[2017-09-02] MEDS: INSULIN ASPART 100 UNIT/ML 1 ML 10 ML VIAL SQ SCH ×4 (07:36→21:36)
[2017-09-02] MEDS: HEPARIN SODIUM,PORCINE 5,000 UNIT/ML 1 ML VIAL SQ SCH ×2 (07:36→21:04)
[2017-09-02] MEDS: PIPERACILLIN-TAZOBACTAM 3.375 GM in DEXTROSE/WATER 1 50ML.BAG IVPB SCH ×3 (07:36→23:55)
[2017-09-02] MEDS: FUROSEMIDE 10 MG/ML 4 ML VIAL IV SCH (07:36)
[2017-09-02 08:38] LABS: Calcium 9.7 mg/dL (8.4-10.2); Potassium 4.1 mmol/L (3.5-5.1)
--- NOTE | 2017-09-02 11:06 | CDI ---
Last Revision, June 2017 Documentation Clarification Form Date: 09/02/2017 10:51:00 AM From: Lorin Oshea RN, CCDS Admit Date: 08/27/2017 10:48:00 PM Patient Name: Fadi Meza Visit Number: [id number] ATTENTION: The Clinical Documentation Specialists (CDI) and [facility] Coding Staff appreciate your assistance in clarifying documentation. Please respond to the clarification below the line at the bottom and electronically sign. The CDI & [facility] Coding staff will review the response and follow-up if needed. Please note: Queries are made part of the Legal Health Record. If you have any questions, please contact the author of this message via ITS. Dr. Luke Woods Please identify clinical significance of low hemoglobin and hct. History/Risk Factors: abdominal pain x 2 weeks, H. Pylori, anemia, Clinical indicators: Hemoglobin: 11.2/10.4/10.9/11.5/12.1/11.3 Hematocrit: 34.8/32.6/34.8/36.3/39.5/36.6 08/31 + gastric occult 08/29 Lap choley Treatment: IVF Bolus, IVF SQ lovenox, ASA 325 mg Po QD Feosol 325 mg PO QD In order to capture the severity of condition, please clarify the significance of the abnormal labs and treatment if possible, and etiology if known: Acute blood loss anemia Acute on chronic blood loss anemia Chronic blood loss anemia Iron deficiency anemia Drug induced anemia Nutritional anemia Anemia of chronic kidney disease Anemia of chronic disease Unable to determine Other, please specify Please continue to document in your progress notes and discharge summary in order to capture severity of illness and risk of mortality. Include clinical findings that support your diagnosis. Anemia of chronic disease MTDD
[2017-09-02 11:24] LABS: Basophils # (A) 0.1 k/uL (0-0.2); Basophils % (A) 1 %; Eosinophils # (A) 0.3 k/uL (0-0.7); Eosinophils % (A) 3 %; HCT 35.2 % (39.0-53.0); HGB 10.9 gm/dL (13.0-17.5); Lymphocytes # (A) 1.2 k/uL (1.0-4.8); Lymphocytes % (A) 11 %; MCH 29.7 pg (25.0-35.0); MCHC 30.9 g/dL (31.0-37.0); MCV 96.1 fL (80.0-100.0); Mean Platelet Volume 7.8; Monocytes # (A) 0.8 k/uL (0-1.0); Monocytes % (A) 7 %; Neutrophils # (A) 8.4 k/uL (1.3-7.7); Neutrophils % (A) 77 %; Platelet Count 256 k/uL (150-450); RBC 3.66 m/uL (4.30-5.90); RDW 14.7 % (11.5-15.5)
[2017-09-02 11:58] LABS: Glucose,Whole Blood 283 mg/dL (75-99)
--- NOTE | 2017-09-02 12:07 | P.PN ---
Subjective Progress Note Date: 09/02/17 Principal diagnosis: elevated liver enzymes 66-year-old male history of cholelithiasis postop day #4 laparoscopic cholecystectomy. T-max 99.9 24 hours. Hepatitis B core IgM antibody reactive. Hepatitis B surface antigen nonreactive. Hepatitis BE antigen/ antibody negative; quantitative DNA not detected. Presently resting, comfortably. Feels better. Tolerating diet. Objective - Vital Signs Vital signs: Vital Signs Temp 99.1 F 09/02/17 07:00 Pulse 72 09/02/17 11:24 Resp 18 09/02/17 07:00 BP 176/76 09/02/17 07:00 Pulse Ox 91 L 09/02/17 07:00 Intake & Output 09/01/17 09/02/17 09/02/17 18:59 06:59 18:59 Intake Total 1690 500 Output Total 525 550 Balance 1165 -50 Weight 140.5 kg Intake: Intake, IV Titration 130 Amount Piperacillin-Tazobactam 3 50 .375 gm In Dextrose/Water 1 50ml.bag @ 12.5 mls/hr IVPB Q8HR [facility] Rx#: [id number] Sodium Chloride 0.9% 1, 80 000 ml @ 20 mls/hr IV . Q24H [facility] Rx#:[id number] Oral 1560 500 Output: Urine 525 550 Other: Voiding Method Urinal Urinal Urinal Diaper Diaper Diaper Incontinent Incontinent Incontinent # Voids 1 5 1 - Exam General appearance: The patient is alert, oriented, in no acute distress. HET: Head is normocephalic and atraumatic. Pupils are equal and reactive. Oropharynx is clear without lesions. Neck: Supple without lymphadenopathy. Trachea midline. Heart: S1 S2. Regular rate and rhythm. Lungs: No crackles or wheezes are heard. Abdomen: Soft, mild incisional tenderness surgical dressings clean, nondistended with bowel sounds. Reducible umbilical hernia. No peritoneal signs. No palpable organomegaly or masses. Extremities: Normal skin color and turgor. No cyanosis, rash, ulceration, clubbing, or edema. Radial and pedal pulses are 2/4 bilaterally. Neurological: No focal deficits. Strength and sensation are grossly intact. - Labs CBC & Chem 7: 09/02/17 07:20 09/02/17 07:20 Labs: Abnormal Lab Results - Last 24 Hours (Table) 09/01/17 09/01/17 09/02/17 Range/Units 16:47 20:34 07:20 WBC (3.8-10.6) k/uL RBC (4.30-5.90) m/uL Hgb (13.0-17.5) gm/dL Hct (39.0-53.0) % MCHC (31.0-37.0) g/dL Neutrophils # (1.3-7.7) k/uL BUN 42 H (9-20) mg/dL Creatinine 2.41 H (0.66-1.25) mg/dL Glucose 124 H (74-99) mg/dL POC Glucose (mg/dL) 250 H 185 H (75-99) mg/dL 09/02/17 09/02/17 09/02/17 Range/Units 07:20 07:25 11:50 WBC 11.0 H (3.8-10.6) k/uL RBC 3.66 L (4.30-5.90) m/uL Hgb 10.9 L (13.0-17.5) gm/dL Hct 35.2 L (39.0-53.0) % MCHC 30.9 L (31.0-37.0) g/dL Neutrophils # 8.4 H (1.3-7.7) k/uL BUN (9-20) mg/dL Creatinine (0.66-1.25) mg/dL Glucose (74-99) mg/dL POC Glucose (mg/dL) 124 H 283 H (75-99) mg/dL Microbiology - Last 24 Hours (Table) 08/29/17 21:44 Blood Culture - Preliminary Blood No Growth after 72 hours Assessment and Plan Assessment: Impression: 1. Epigastric pain cholelithiasis cholecystitis E. coli bacteremia sepsis status post laparoscopic cholecystectomy with postoperative development of fever and liver enzymes with positive hepatitis B core IgM antibody with negative hepatitis B surface antigen, hepatitis Be antibody antigen, quantitative hepatitis B DNA not detected therefore false positivity. 2. Possible pancreatic head mass per CT imaging. Plan: 1. Outpatient open MRI [address] findings; GI office will schedule ; prescription provided. Possible outpatient endoscopic ultrasound pending MRI findings. 2. Continue with antibiotics per ID recommendations. Diet as tolerated. DC per medicine/surgery. We'll follow as needed. Assessment and plan of care discussed with Dr. Herman
[2017-09-02] MEDS: INSULIN DETEMIR 100 UNIT/ML 10 ML VIAL SQ SCH (12:10)
[2017-09-02] MEDS: SODIUM CHLORIDE 0.9% 1,000 ML IV SCH (12:10)
[2017-09-02] MEDS: [UNRECOGNIZED DRUG - OTHER] PO SCH (12:11)
--- NOTE | 2017-09-02 14:54 | P.PN ---
<Danielle Cowan M - Last Filed: 09/02/17 14:59> Subjective Progress Note Date: 09/02/17 66-year-old male seen and examined pain states feels better this morning. Remains afebrile this morning. Temp maxed at 99.9. States he has been up ambulating with the use of a walker with physical therapy still feels weak Patient is postop day 4 laparoscopic cholecystectomy for cholelithiasis Objective - Vital Signs Vital signs: Vital Signs Temp 99.1 F 09/02/17 07:00 Pulse 72 09/02/17 11:24 Resp 18 09/02/17 07:00 BP 176/76 09/02/17 07:00 Pulse Ox 91 L 09/02/17 07:00 Intake & Output 09/01/17 09/02/17 09/02/17 18:59 06:59 18:59 Intake Total 1690 500 Output Total 525 550 Balance 1165 -50 Weight 140.5 kg Intake: Intake, IV Titration 130 Amount Piperacillin-Tazobactam 3 50 .375 gm In Dextrose/Water 1 50ml.bag @ 12.5 mls/hr IVPB Q8HR [facility] Rx#: [id number] Sodium Chloride 0.9% 1, 80 000 ml @ 20 mls/hr IV . Q24H [facility] Rx#:[id number] Oral 1560 500 Output: Urine 525 550 Other: Voiding Method Urinal Urinal Urinal Diaper Diaper Diaper Incontinent Incontinent Incontinent # Voids 1 5 1 - Exam Physical exam Abdomen obese soft not distended surgical tenderness appropriate surgical incision dressing site dry bowel tones present large umbilical hernia states had a bowel movement no nausea no vomiting and tolerating a diet - Labs CBC & Chem 7: 09/02/17 07:20 09/02/17 07:20 Labs: Abnormal Lab Results - Last 24 Hours (Table) 09/01/17 09/01/17 09/02/17 Range/Units 16:47 20:34 07:20 WBC (3.8-10.6) k/uL RBC (4.30-5.90) m/uL Hgb (13.0-17.5) gm/dL Hct (39.0-53.0) % MCHC (31.0-37.0) g/dL Neutrophils # (1.3-7.7) k/uL BUN 42 H (9-20) mg/dL Creatinine 2.41 H (0.66-1.25) mg/dL Glucose 124 H (74-99) mg/dL POC Glucose (mg/dL) 250 H 185 H (75-99) mg/dL 09/02/17 09/02/17 09/02/17 Range/Units 07:20 07:25 11:50 WBC 11.0 H (3.8-10.6) k/uL RBC 3.66 L (4.30-5.90) m/uL Hgb 10.9 L (13.0-17.5) gm/dL Hct 35.2 L (39.0-53.0) % MCHC 30.9 L (31.0-37.0) g/dL Neutrophils # 8.4 H (1.3-7.7) k/uL BUN (9-20) mg/dL Creatinine (0.66-1.25) mg/dL Glucose (74-99) mg/dL POC Glucose (mg/dL) 124 H 283 H (75-99) mg/dL Microbiology - Last 24 Hours (Table) 08/29/17 21:44 Blood Culture - Preliminary Blood No Growth after 72 hours Assessment and Plan Assessment: Impression Present on admission abdominal pain febrile suspect due to acute calculus cholecystitis Postop 29 of August laparoscopic cholecystectomy for acute calculus cholecystitis Large asymptomatic umbilical hernia Persistent febrile Present on admission elevated liver enzymes trending down CT abdomen pelvis possible pancreatic head mass per CT imaging Plan From a surgical perspective patient is stable to be transferred to the ECF facility defer to the timing to the attending Continue postop surgical care Pain control IV antibiotics per infectious disease PT OT eval DVT and GI prophylaxis GI indicate open MRI in 4 weeks to evaluate pancreatic head mass per CT imaging The above impression and plan of care have been discussed and directed by signing physician. Danielle Cowan nurse practitioner acting as scribe for signing physician. <Abad Vela - Last Filed: 09/02/17 17:48> Objective - Vital Signs Vital signs: Vital Signs Temp 100.1 F H 09/02/17 15:00 Pulse 72 09/02/17 15:24 Resp 18 09/02/17 15:00 BP 155/88 09/02/17 15:00 Pulse Ox 92 L 09/02/17 15:00 Intake & Output 09/01/17 09/02/17 09/02/17 18:59 06:59 18:59 Intake Total 1690 500 Output Total 525 550 Balance 1165 -50 Weight 140.5 kg Intake: Intake, IV Titration 130 Amount Piperacillin-Tazobactam 3 50 .375 gm In Dextrose/Water 1 50ml.bag @ 12.5 mls/hr IVPB Q8HR [facility] Rx#: [id number] Sodium Chloride 0.9% 1, 80 000 ml @ 20 mls/hr IV . Q24H [facility] Rx#:[id number] Oral 1560 500 Output: Urine 525 550 Other: Voiding Method Urinal Urinal Urinal Diaper Diaper Diaper Incontinent Incontinent Incontinent # Voids 1 5 1 - Labs CBC & Chem 7: 09/02/17 07:20 09/02/17 07:20 Labs: Abnormal Lab Results - Last 24 Hours (Table) 09/01/17 09/02/17 09/02/17 Range/Units 20:34 07:20 07:20 WBC 11.0 H (3.8-10.6) k/uL RBC 3.66 L (4.30-5.90) m/uL Hgb 10.9 L (13.0-17.5) gm/dL Hct 35.2 L (39.0-53.0) % MCHC 30.9 L (31.0-37.0) g/dL Neutrophils # 8.4 H (1.3-7.7) k/uL BUN 42 H (9-20) mg/dL Creatinine 2.41 H (0.66-1.25) mg/dL Glucose 124 H (74-99) mg/dL POC Glucose (mg/dL) 185 H (75-99) mg/dL 09/02/17 09/02/17 09/02/17 Range/Units 07:25 11:50 17:14 WBC (3.8-10.6) k/uL RBC (4.30-5.90) m/uL Hgb (13.0-17.5) gm/dL Hct (39.0-53.0) % MCHC (31.0-37.0) g/dL Neutrophils # (1.3-7.7) k/uL BUN (9-20) mg/dL Creatinine (0.66-1.25) mg/dL Glucose (74-99) mg/dL POC Glucose (mg/dL) 124 H 283 H 204 H (75-99) mg/dL Microbiology - Last 24 Hours (Table) 08/29/17 21:44 Blood Culture - Preliminary Blood No Growth after 72 hours Assessment and Plan Assessment: As above. Patient doing well presently. This morning apparently he was quite fatigued. He is ambulating however. Liver enzymes were not checked today. We' ll recheck CMP tomorrow. Continue regular diet. Plan outpatient follow-up with myself and also GI. (1) Acute cholecystitis Current Visit: Yes Status: Acute Code(s): K81.0 - ACUTE CHOLECYSTITIS SNOMED Code(s): 84650378
[2017-09-02] MEDS: HYDROcodone/APAP 10-325MG 1 EACH TAB PO PRN ×2 (15:43→23:55)
[2017-09-02 17:26] LABS: Glucose,Whole Blood 204 mg/dL (75-99)
[2017-09-02] MEDS: ATORVASTATIN 20 MG TAB PO SCH (21:04)
[2017-09-02 21:20] LABS: Glucose,Whole Blood 150 mg/dL (75-99)
--- NOTE | 2017-09-02 21:45 | PN ---
PROGRESS NOTE DATE OF SERVICE: 09/02/2017. INTERVAL HISTORY: This 66-year-old gentleman was admitted with acute cholecystitis and sepsis is being closely monitored at this time. The pCO2 is improving. The patient on broad-spectrum IV antibiotics. Gastroenterology and surgery are following the patient closely. EXAM: Alert and oriented x3. The pulse is 77, blood pressure 152/80. Respiration 18, temperature 100.1, pulse ox 94% on room air. HEENT: Conjunctivae normal. NECK: No jugular venous distention. Cardiovascular: S1, S2 muffled. Respirations: Breath sounds diminished in the bases, a few scattered rhonchi and crackles. Abdomen is soft, nontender. No mass palpable. Legs: No edema and no swelling. Central nervous system: No focal deficits. LABORATORY DATA: WBC 11, hemoglobin 10.9, glucose 284. ASSESSMENT: 1. E coli sepsis. 2. Acute cholecystitis with sepsis and possibly E. coli, status post laparoscopic cholecystectomy. 3. Continued fever. 4. Possible left lower lobe atelectasis pneumonia. 5. Chronic kidney stage 3. 6. Diabetes type 2. 7. Chronic obstructive pulmonary disease. 8. Congestive heart failure with chronic diastolic dysfunction ejection fraction 50- 60%. 9. History of coronary artery disease. 10.Hypertension. 11.Hyperlipidemia. 12.Anemia of chronic disease. 13.History of gastroesophageal reflux disease. 14.History of coronary artery disease stent. 15.History of chronic left lower extremity wound followed by Infectious Disease. RECOMMENDATIONS AND DISCUSSION: Recommend to continue current medications, management and continue with broad-spectrum IV antibiotics. The blood culture on did grow E coli. but the blood culture from is negative so far. Further recommendations to follow. MMODL / IJN: [id number] /
--- NOTE | 2017-09-02 23:24 | P.PN ---
Subjective Progress Note Date: 09/02/17 Principal diagnosis: Fever 66-year-old male well-known to the infectious disease service for the care of the patient related to his recurrent lesions to the lower extremities and bouts of cellulitis. The patient's brought him emergency center because of patient had become ill with some altered mental status, generalized weakness, nausea abdominal pain and about of emesis. Because of this he was evaluated in emergency center and had evidence of sepsis and evidence of abnormal liver function tests in consequently ultrasound was performed that showed evidence of the significant cholecystitis and leukocytosis. He was evaluated general surgery and was taken to Her room today for the laparoscopic cholecystectomy. Patient is without evidence of possible cultures gram- negative bacilli and constantly infectious diseases consultation was requested as well as request for some care to the left lower extremity chronic venous stasis ulcerations. The patient's postoperative and is still having some nausea. He's had significant fever slightly improved at this time. He feels poorly and his mentation is poor. 08/30/2017 as noted the patient is status post cholecystectomy, he had significant postoperative fever but is somewhat improved. He was sitting upright reading atrial on his cell phone. Relates that he is without significant or severe abdominal pain but does have some postoperative discomfort. Denies nausea or emesis. His high-grade fevers and chills have all resolved this evening and he has no other new acute complaints. 08/31/2017 reveals the patient to have further improvement. He is now afebrile. Having no fevers or chills. Computed tomography scan is reviewed without evidence of intra-abdominal abscess or evidence of cholangitis. The patient is eating food without great difficulties or nausea or emesis. He is aware that his fever has resolved his abdominal pain is improving. He is having some mild burning to the left lower extremity chronic area of ulceration. 09/02/2017 patient overall is improved but is not developed a new rash on his left leg just proximal to the knee. Knee itself. It is mildly uncomfortable and he is not having fevers or chills. His abdominal pain is improved. He is eating well without nausea or emesis. Looks were going to rehab to complete his course of therapy. Objective - Vital Signs Vital signs: Vital Signs Temp 100.1 F H 09/02/17 15:00 Pulse 78 09/02/17 20:07 Resp 18 09/02/17 15:00 BP 155/88 03/01/18 15:00 Pulse Ox 92 L 09/02/17 15:00 Intake & Output 09/02/17 09/02/17 09/03/17 06:59 18:59 06:59 Intake Total 500 Output Total 550 Balance -50 Weight 140.5 kg 130.89 kg 130.89 kg Intake: Oral 500 Output: Urine 550 Other: Voiding Method Urinal Urinal Urinal Diaper Diaper Diaper Incontinent Incontinent Incontinent # Voids 5 2 # Bowel Movements 1 - Exam 66-year-old male who is feeling better now a day after surgery, abdominal pain is improved. Sitting up feeling somewhat comfortable HEENT: Anicteric conjunctiva are pink and moist nasal mucosa grossly intact without significant lesions, there is no thrush. Neck: The neck is supple without significant lymphadenopathy or thyromegaly. Lungs: Good bilateral air entry without significant crackles or wheezing. There is no significant bronchial sounds. There is no egophony or dullness. Heart: Regular rate and rhythm with an audible S1-S2, no S3 loud S4. There is no significant murmur click or rub, PMI was nondisplaced. Abdomen: Mildly distended and obese the chronic hernia umbilical is without change. The abdomen is tender especially at the surgical site where the drain is in place. Extremities: The upper extremities have excellent pulses they are symmetric, no significant petechiae or telangiectasia. No splinter hemorrhages were noted. Right lower extremity has no acute lesions. Left lower extremity has had the significant ulcerations being cared for the wound healing Center. The dressing is removed and there is near healing of the prior extensive ulcerations. He is complaining of a bit of discomfort in this area but again it is much improved The peripheral pulses were 2+ and symmetric. Neuro: Awake and alert and recognizes me immediately upon entering the room by name . No new acute gross focal sensory motor deficits his bit of confusion admission is much improved Skin evidence of a new vesicular rash in 3 spots on the left leg medial to the knee and onto the knee itself highly consistent with varicella-zoster - Labs CBC & Chem 7: 09/02/17 07:20 09/02/17 07:20 Labs: Abnormal Lab Results - Last 24 Hours (Table) 09/02/17 09/02/17 09/02/17 Range/Units 07:20 07:20 07:25 WBC 11.0 H (3.8-10.6) k/uL RBC 3.66 L (4.30-5.90) m/uL Hgb 10.9 L (13.0-17.5) gm/dL Hct 35.2 L (39.0-53.0) % MCHC 30.9 L (31.0-37.0) g/dL Neutrophils # 8.4 H (1.3-7.7) k/uL BUN 42 H (9-20) mg/dL Creatinine 2.41 H (0.66-1.25) mg/dL Glucose 124 H (74-99) mg/dL POC Glucose (mg/dL) 124 H (75-99) mg/dL 09/02/17 09/02/17 09/02/17 Range/Units 11:50 17:14 21:18 WBC (3.8-10.6) k/uL RBC (4.30-5.90) m/uL Hgb (13.0-17.5) gm/dL Hct (39.0-53.0) % MCHC (31.0-37.0) g/dL Neutrophils # (1.3-7.7) k/uL BUN (9-20) mg/dL Creatinine (0.66-1.25) mg/dL Glucose (74-99) mg/dL POC Glucose (mg/dL) 283 H 204 H 150 H (75-99) mg/dL Microbiology - Last 24 Hours (Table) 08/29/17 21:44 Blood Culture - Preliminary Blood No Growth after 72 hours Laboratory Results WBC 11.0 k/uL (3.8-10.6) H 09/02/17 07:20 RBC 3.66 m/uL (4.30-5.90) L 09/02/17 07:20 Hgb 10.9 gm/dL (13.0-17.5) L 09/02/17 07:20 Hct 35.2 % (39.0-53.0) L 09/02/17 07:20 MCV 96.1 fL (80.0-100.0) 09/02/17 07:20 MCH 29.7 pg (25.0-35.0) 09/02/17 07:20 MCHC 30.9 g/dL (31.0-37.0) L 09/02/17 07:20 RDW 14.7 % (11.5-15.5) 09/02/17 07:20 Plt Count 256 k/uL (150-450) 09/02/17 07:20 Neutrophils % 77 % 09/02/17 07:20 Lymphocytes % 11 % 09/02/17 07:20 Monocytes % 7 % 09/02/17 07:20 Eosinophils % 3 % 09/02/17 07:20 Basophils % 1 % 09/02/17 07:20 Neutrophils # 8.4 k/uL (1.3-7.7) H 09/02/17 07:20 Lymphocytes # 1.2 k/uL (1.0-4.8) 09/02/17 07:20 Monocytes # 0.8 k/uL (0-1.0) 09/02/17 07:20 Eosinophils # 0.3 k/uL (0-0.7) 09/02/17 07:20 Basophils # 0.1 k/uL (0-0.2) 09/02/17 07:20 Hypochromasia Slight 08/31/17 08:06 PT 11.4 sec (9.0-12.0) 08/28/17 07:08 INR 1.2 (<1.2) H 08/28/17 07:08 APTT 23.9 sec (22.0-30.0) 08/28/17 07:08 Sodium 138 mmol/L (137-145) 09/02/17 07:20 Potassium 4.1 mmol/L (3.5-5.1) 09/02/17 07:20 Chloride 98 mmol/L (98-107) 09/02/17 07:20 Carbon Dioxide 29 mmol/L (22-30) 09/02/17 07:20 Anion Gap 11 mmol/L 09/02/17 07:20 BUN 42 mg/dL (9-20) H 09/02/17 07:20 Creatinine 2.41 mg/dL (0.66-1.25) H 09/02/17 07:20 Est GFR (MDRD) Af Amer 33 (>60 ml/min/1.73 sqM) 09/02/17 07:20 Est GFR (MDRD) Non-Af 27 (>60 ml/min/1.73 sqM) 09/02/17 07:20 Glucose 124 mg/dL (74-99) H 09/02/17 07:20 POC Glucose (mg/dL) 150 mg/dL (75-99) H 09/02/17 21:18 POC Glu Ham Clerk ID Glendy Nicholas 09/02/17 21:[address] Glu mg/dL 194 08/28/17 07:08 Hemoglobin A1c 8.4 % (4.0-6.0) H 08/28/17 07:08 Plasma Lactic Acid Anthony 1.1 mmol/L (0.7-2.0) 08/29/17 21:44 Calcium 9.7 mg/dL (8.4-10.2) 09/02/17 07:20 Magnesium 1.8 mg/dL (1.6-2.3) 09/02/17 07:20 Total Bilirubin 1.9 mg/dL (0.2-1.3) H 09/01/17 07:16 AST 50 U/L (17-59) 09/01/17 07:16 ALT 69 U/L (21-72) 09/01/17 07:16 Alkaline Phosphatase 170 U/L (38-126) H 09/01/17 07:16 Total Protein 6.6 g/dL (6.3-8.2) 09/01/17 07:16 Albumin 3.5 g/dL (3.5-5.0) 09/01/17 07:16 Lipase 211 U/L (23-300) 08/27/17 23:11 CA 19-9 Antigen 12.1 U/mL (0.0-34.9) 08/31/17 08:00 Urine Color Yellow 08/27/17 20:10 Urine Appearance Clear (Clear) 08/27/17 20:10 Urine pH 5.5 (5.0-8.0) 08/27/17 20:10 Ur Specific [place] 1.010 (1.001-1.035) 08/27/17 20:10 Urine Protein 1+ (Negative) H 08/27/17 20:10 Urine Glucose (UA) Trace (Negative) H 08/27/17 20:10 Urine Ketones Negative (Negative) 08/27/17 20:10 Urine Blood Negative (Negative) 08/27/17 20:10 Urine Nitrite Negative (Negative) 08/27/17 20:10 Urine Bilirubin Negative (Negative) 08/27/17 20:10 Urine Urobilinogen <2.0 mg/dL (<2.0) 08/27/17 20:10 Ur Leukocyte Esterase Negative (Negative) 08/27/17 20:10 Urine WBC <1 /hpf (0-5) 08/27/17 20:10 Urine Bacteria Rare /hpf (None) H 08/27/17 20:10 Gastric Occult Blood Positive (Negative) 08/31/17 03:26 Hepatitis A IgM Ab Non-Reactive (Non-Reactive) 08/27/17 19:05 Hep Bs Antigen Non-Reactive (Non-Reactive) 08/30/17 07:51 Hep B Core IgM Ab Reactive (Non-Reactive) H 08/27/17 19:05 Hepatitis B DNA, Quant <10 IU/mL (<10) 08/30/17 07:51 Hep B DNA Qnt log IU/mL <1.00 (<1.00) 08/30/17 07:51 Hep B DNA Interpret Not detected (Not detected) 08/30/17 07:51 Hepatitis Be Antibody NEG (Negative) 08/30/17 07:51 Hepatitis Be Antigen NEG (Negative) 08/30/17 07:51 Hep C IgG Ab Non-Reactive (Non-Reactive) 08/27/17 19:05 Influenza Type A RNA Not Detected (Not Detectd) 08/27/17 19:05 Influenza Type B (PCR) Not Detected (Not Detectd) 08/27/17 19:05 Microbiology 08/29/17 21:44 Blood Blood Culture - Preliminary No Growth after 72 hours 08/27/17 19:05 Blood Blood Culture Gram Stain - Final 08/27/17 19:05 Blood Blood Culture - Final Escherichia coli 08/27/17 20:10 Urine,Catheterized Urine Culture - Final 08/27/17 19:05 Blood Blood Culture - Final Assessment and Plan (1) Acute cholecystitis Narrative/Plan: 66 show male presents to Hospital with his because of some altered mental status feeling poorly with abdominal pain nausea and fever. Was on evidence of acute cholecystitis is not taking the operating room and has had the laparoscopic cholecystectomy. Postoperatively the patient is not feeling very well. Still having fever and some nausea and nursing has related to some emesis. Pain control appears to be adequate. He is having some altered mental status from anesthesia and his current sepsis. Laboratories call gram-negative bacilli in the blood culture. We'll alter antibiotic therapy from Unasyn to Zosyn given his ongoing fevers. Will offer intravenous Tylenol also. Continue with fluids and supportive care. As far as the left leg will utilize the Aquacel foam this area rolled gauze and Pastor wrap to be utilized to help control the edema to prevent any further new difficulties at that site and actually has had significant improvement with the multilayer wraps up in applied at the wound healing Center. Leukocytosis due to his current gram-negative sepsis as is his fever. Patient did have abnormal liver function tests and consequently hepatitis testing was performed because of the current hepatitis A outbreak and surprising hepatitis B core antibody IgM was found. We'll do further workup for hepatitis B and it's possible current activity. 08/30/2017 reveals the patient is feeling better. He is without new acute difficulties and is feeling considerably better with reduction of his fever. His bilirubin did increase and MRCP has been requested by gastroenterology. This will help determine the next steps. Still awaiting verification of the activity was hepatitis B. Continue with local care to his left leg which he is tolerating well and showing improvement. 08/31/2017 reveals the patient with further improvement. He is eating solids for his dinner. Denies further fevers or chills. Abdominal pain is improving. The left lower extremity is rewrapped with a zinc-based dressing which he finds to be very soothing and tolerated well. This should be changed daily for now. Continue to elevate the limb. With his current illness and the protracted elevation of the leg it is quite remarkable how much improvement there as occurred already. The hepatitis B workup is in process and he is negative for hepatitis B E antigen and antibody. Viral load is pending. Total bilirubin is improving without evidence of cholangitis. The E. coli that has been found in his blood culture is quite susceptible and will be able to be treated with oral antibiotic therapy at his discharge. 09/02/2017 reveals the patient to have further improvement. Case is discussed with gastroenterology. The patient appears to have a false positive hepatitis B core IgM in that all the other parameters including the viral load are negative. Continue with local care to the left lower extremity that is considerably improved with the zinc wrap. Utilize oral ciprofloxacin to complete course of treatment for his gram-negative bacteremia from his cholecystitis and cholangitis. Does have evidence of new lesion on his left leg , consistent with varicella-zoster and consequently Valtrex is given. Current Visit: Yes Status: Acute Code(s): K81.0 - ACUTE CHOLECYSTITIS SNOMED Code(s): 40253501 (2) Hepatitis B core antibody positive Current Visit: Yes Status: Acute Code(s): R76.8 - OTHER SPECIFIED ABNORMAL IMMUNOLOGICAL FINDINGS IN SERUM SNOMED Code(s): 856697973 (3) Obesity, Class III, BMI 40-49.9 (morbid obesity) Current Visit: No Status: Acute Code(s): E66.01 - MORBID (SEVERE) OBESITY DUE TO EXCESS CALORIES SNOMED Code(s): 566059734 (4) Bilateral lower extremity edema Current Visit: No Status: Acute Code(s): R60.0 - LOCALIZED EDEMA SNOMED Code(s): 453945339 (5) Gram negative sepsis Current Visit: Yes Status: Acute Code(s): A41.50 - GRAM-NEGATIVE SEPSIS, UNSPECIFIED SNOMED Code(s): 976748724
[2017-09-02] MEDS: valACYclovir 500 MG TAB PO SCH (23:54)
[2017-09-03] MEDS: MAGNESIUM OXIDE 400 MG TAB PO SCH (07:28)
[2017-09-03] MEDS: CHOLECALCIFEROL 1,000 UNIT TAB PO SCH (07:28)
[2017-09-03] MEDS: hydrALAZINE HCL 50 MG TAB PO SCH ×3 (07:28→20:01)
[2017-09-03] MEDS: PANTOPRAZOLE 40 MG TABLET PO SCH (07:28)
[2017-09-03] MEDS: GABAPENTIN 300 MG CAP PO SCH ×3 (07:28→20:02)
[2017-09-03] MEDS: INSULIN ASPART 100 UNIT/ML 1 ML 10 ML VIAL SQ SCH ×4 (07:29→21:44)
[2017-09-03] MEDS: SODIUM POLYSTYRENE SULFONATE 15 GM/60 ML BOTTLE PO SCH (07:29)
[2017-09-03] MEDS: ASPIRIN 81 MG PO SCH (07:29)
[2017-09-03] MEDS: amLODIPine 5 MG TAB PO SCH ×2 (07:29→20:01)
[2017-09-03] MEDS: valACYclovir 500 MG TAB PO SCH ×2 (07:29→20:01)
[2017-09-03] MEDS: ALLOPURINOL 100 MG TAB PO SCH (07:29)
[2017-09-03] MEDS: HEPARIN SODIUM,PORCINE 5,000 UNIT/ML 1 ML VIAL SQ SCH ×2 (07:29→20:01)
[2017-09-03] MEDS: FERROUS SULFATE 325 MG TAB PO SCH (07:29)
[2017-09-03] MEDS: CALCITRIOL 0.25 MCG CAP PO SCH (07:30)
[2017-09-03] MEDS: HYDROcodone/APAP 10-325MG 1 EACH TAB PO PRN ×3 (07:30→21:50)
[2017-09-03] MEDS: PIPERACILLIN-TAZOBACTAM 3.375 GM in DEXTROSE/WATER 1 50ML.BAG IVPB SCH (07:30)
[2017-09-03 07:40] LABS: Glucose,Whole Blood 193 mg/dL (75-99)
[2017-09-03] MEDS: SYMBICORT 160-4.5 MCG INHALER INHALATION SCH ×2 (08:32→19:36)
[2017-09-03] MEDS: IPRATROPIUM-ALBUTEROL 3 ML NEB INHALATION SCH ×4 (08:32→19:37)
[2017-09-03 08:59] LABS: Basophils # (A) 0.1 k/uL (0-0.2); Basophils % (A) 1 %; Eosinophils # (A) 0.3 k/uL (0-0.7); Eosinophils % (A) 2 %; HCT 35.8 % (39.0-53.0); HGB 11.1 gm/dL (13.0-17.5); Lymphocytes # (A) 1.3 k/uL (1.0-4.8); Lymphocytes % (A) 11 %; MCH 29.5 pg (25.0-35.0); MCHC 31.1 g/dL (31.0-37.0); MCV 94.7 fL (80.0-100.0); Mean Platelet Volume 7.9; Monocytes # (A) 0.6 k/uL (0-1.0); Monocytes % (A) 5 %; Neutrophils # (A) 9.7 k/uL (1.3-7.7); Neutrophils % (A) 79 %; Platelet Count 259 k/uL (150-450); RBC 3.78 m/uL (4.30-5.90); RDW 14.8 % (11.5-15.5); WBC 12.3 k/uL (3.8-10.6)
[2017-09-03 09:05] LABS: Albumin 3.6 g/dL (3.5-5.0); Calcium 9.5 mg/dL (8.4-10.2); Potassium 4.4 mmol/L (3.5-5.1); Total Bilirubin 1.2 mg/dL (0.2-1.3); Total Protein 6.7 g/dL (6.3-8.2)
[2017-09-03 12:04] LABS: Glucose,Whole Blood 263 mg/dL (75-99)
[2017-09-03] MEDS: INSULIN DETEMIR 100 UNIT/ML 10 ML VIAL SQ SCH (12:35)
--- NOTE | 2017-09-03 13:46 | P.PN ---
Subjective Progress Note Date: 09/03/17 Principal diagnosis: Acute cholecystitis Patient had a low-grade fever last night. White blood cell count today slightly elevated at 12. He was diagnosed with probable shingles in the left leg. Denies abdominal pain. Tolerating diet. Bilirubin down to 1.2. Objective - Vital Signs Vital signs: Vital Signs Temp 99.4 F 09/03/17 06:45 Pulse 72 09/03/17 12:04 Resp 20 09/03/17 06:45 BP 156/76 09/03/17 06:45 Pulse Ox 92 L 09/03/17 06:45 Intake & Output 09/02/17 09/03/17 09/03/17 18:59 06:59 18:59 Intake Total 500 480 Balance 500 480 Weight 130.89 kg 129 kg Intake: Oral 300 480 Blood Product 200 Other: Voiding Method Urinal Urinal Urinal Diaper Diaper Diaper Incontinent Incontinent Incontinent # Voids 2 1 # Bowel Movements 1 - Exam Abdomen: Soft, nondistended, nontender, incisions clean and dry, small tape burn from operative tape - Labs CBC & Chem 7: 09/03/17 07:39 09/03/17 07:39 Labs: Abnormal Lab Results - Last 24 Hours (Table) 09/02/17 09/02/17 09/03/17 Range/Units 17:14 21:18 06:54 WBC (3.8-10.6) k/uL RBC (4.30-5.90) m/uL Hgb (13.0-17.5) gm/dL Hct (39.0-53.0) % Neutrophils # (1.3-7.7) k/uL BUN (9-20) mg/dL Creatinine (0.66-1.25) mg/dL Glucose (74-99) mg/dL POC Glucose (mg/dL) 204 H 150 H 193 H (75-99) mg/dL AST (17-59) U/L ALT (21-72) U/L Alkaline Phosphatase (38-126) U/L 09/03/17 09/03/17 09/03/17 Range/Units 07:39 07:39 11:45 WBC 12.3 H (3.8-10.6) k/uL RBC 3.78 L (4.30-5.90) m/uL Hgb 11.1 L (13.0-17.5) gm/dL Hct 35.8 L (39.0-53.0) % Neutrophils # 9.7 H (1.3-7.7) k/uL BUN 41 H (9-20) mg/dL Creatinine 2.18 H (0.66-1.25) mg/dL Glucose 197 H (74-99) mg/dL POC Glucose (mg/dL) 263 H (75-99) mg/dL AST 96 H (17-59) U/L ALT 89 H (21-72) U/L Alkaline Phosphatase 183 H (38-126) U/L Microbiology - Last 24 Hours (Table) 08/29/17 21:44 Blood Culture - Preliminary Blood No Growth after 96 hours Assessment and Plan (1) Acute cholecystitis Narrative/Plan: Continue diet. Continue antibiotics per infectious disease. No further surgical intervention planned at this time. I will be off for the weekend. Please contact Dr. Dagoberto Root if necessary however she will follow this patient over the weekend on an as-needed basis. Current Visit: Yes Status: Acute Code(s): K81.0 - ACUTE CHOLECYSTITIS SNOMED Code(s): 33558895
[2017-09-03] MEDS: SODIUM CHLORIDE 0.9% 1,000 ML IV SCH (13:50)
--- NOTE | 2017-09-03 16:50 | XR ---
EXAMINATION TYPE: XR chest 2V DATE OF EXAM: 09/03/2017 COMPARISON: 09/01/2017 HISTORY: Fever TECHNIQUE: Frontal and lateral views of the chest are obtained. FINDINGS: There is no heart failure nor confluent pneumonic infiltrate. Heart size is normal. There are chest leads. Costophrenic angles are clear. There is mild spurring in the thoracic spine. IMPRESSION: No active cardiopulmonary disease. Inspiration is decreased slightly compared to old exa m.
[2017-09-03 17:25] LABS: Glucose,Whole Blood 196 mg/dL (75-99)
[2017-09-03] MEDS: ATORVASTATIN 20 MG TAB PO SCH (20:01)
[2017-09-03 21:00] LABS: Glucose,Whole Blood 222 mg/dL (75-99)
--- NOTE | 2017-09-03 21:55 | P.PN ---
Subjective Progress Note Date: 09/03/17 Principal diagnosis: Fever 66-year-old male well-known to the infectious disease service for the care of the patient related to his recurrent lesions to the lower extremities and bouts of cellulitis. The patient's brought him emergency center because of patient had become ill with some altered mental status, generalized weakness, nausea abdominal pain and about of emesis. Because of this he was evaluated in emergency center and had evidence of sepsis and evidence of abnormal liver function tests in consequently ultrasound was performed that showed evidence of the significant cholecystitis and leukocytosis. He was evaluated general surgery and was taken to Her room today for the laparoscopic cholecystectomy. Patient is without evidence of possible cultures gram- negative bacilli and constantly infectious diseases consultation was requested as well as request for some care to the left lower extremity chronic venous stasis ulcerations. The patient's postoperative and is still having some nausea. He's had significant fever slightly improved at this time. He feels poorly and his mentation is poor. 08/30/2017 as noted the patient is status post cholecystectomy, he had significant postoperative fever but is somewhat improved. He was sitting upright reading atrial on his cell phone. Relates that he is without significant or severe abdominal pain but does have some postoperative discomfort. Denies nausea or emesis. His high-grade fevers and chills have all resolved this evening and he has no other new acute complaints. 08/31/2017 reveals the patient to have further improvement. He is now afebrile. Having no fevers or chills. Computed tomography scan is reviewed without evidence of intra-abdominal abscess or evidence of cholangitis. The patient is eating food without great difficulties or nausea or emesis. He is aware that his fever has resolved his abdominal pain is improving. He is having some mild burning to the left lower extremity chronic area of ulceration. 09/02/2017 patient overall is improved but is not developed a new rash on his left leg just proximal to the knee. Knee itself. It is mildly uncomfortable and he is not having fevers or chills. His abdominal pain is improved. He is eating well without nausea or emesis. Looks were going to rehab to complete his course of therapy. 09/03/2017 reveals the patient has had some further improvement but does have the shingles to the left leg with a few more vesicles today. Other than some burning pain he has no acute difficulties at that site. Low-grade fever has been noted with the new skin lesions. His abdominal pain is doing well. No nausea or emesis. Liver function tests aren't improving. Surgery is following without acute concerns. Objective - Vital Signs Vital signs: Vital Signs Temp 99.8 F H 09/03/17 15:00 Pulse 93 09/03/17 20:00 Resp 20 09/03/17 15:00 BP 150/69 09/03/17 20:00 Pulse Ox 96 09/03/17 20:00 Intake & Output 09/03/17 09/03/17 09/04/17 06:59 18:59 06:59 Intake Total 500 960 Output Total 150 Balance 500 960 -150 Weight 129 kg Intake: Oral 300 960 Blood Product 200 Output: Urine 150 Other: Voiding Method Urinal Urinal Urinal Diaper Diaper Diaper Incontinent Incontinent Incontinent # Voids 1 2 - Exam 66-year-old male who is feeling better now a day after surgery, abdominal pain is improved. Sitting up feeling somewhat comfortable HEENT: Anicteric conjunctiva are pink and moist nasal mucosa grossly intact without significant lesions, there is no thrush. Neck: The neck is supple without significant lymphadenopathy or thyromegaly. Lungs: Good bilateral air entry without significant crackles or wheezing. There is no significant bronchial sounds. There is no egophony or dullness. Heart: Regular rate and rhythm with an audible S1-S2, no S3 loud S4. There is no significant murmur click or rub, PMI was nondisplaced. Abdomen: Mildly distended and obese the chronic hernia umbilical is without change. The abdomen is tender especially at the surgical site where the drain is in place. Extremities: The upper extremities have excellent pulses they are symmetric, no significant petechiae or telangiectasia. No splinter hemorrhages were noted. Right lower extremity has no acute lesions. Left lower extremity has had the significant ulcerations being cared for the wound healing Center. The dressing is removed and there is near healing of the prior extensive ulcerations. He is complaining of a bit of discomfort in this area but again it is much improved The peripheral pulses were 2+ and symmetric. Neuro: Awake and alert and recognizes me immediately upon entering the room by name . No new acute gross focal sensory motor deficits his bit of confusion admission is much improved Skin evidence of a new vesicular rash on the left leg medial to the knee and onto the knee itself highly consistent with varicella-zoster - Labs CBC & Chem 7: 09/03/17 07:39 09/03/17 07:39 Labs: Abnormal Lab Results - Last 24 Hours (Table) 09/03/17 09/03/17 09/03/17 Range/Units 06:54 07:39 07:39 WBC 12.3 H (3.8-10.6) k/uL RBC 3.78 L (4.30-5.90) m/uL Hgb 11.1 L (13.0-17.5) gm/dL Hct 35.8 L (39.0-53.0) % Neutrophils # 9.7 H (1.3-7.7) k/uL BUN 41 H (9-20) mg/dL Creatinine 2.18 H (0.66-1.25) mg/dL Glucose 197 H (74-99) mg/dL POC Glucose (mg/dL) 193 H (75-99) mg/dL AST 96 H (17-59) U/L ALT 89 H (21-72) U/L Alkaline Phosphatase 183 H (38-126) U/L 09/03/17 09/03/17 09/03/17 Range/Units 11:45 17:21 20:57 WBC (3.8-10.6) k/uL RBC (4.30-5.90) m/uL Hgb (13.0-17.5) gm/dL Hct (39.0-53.0) % Neutrophils # (1.3-7.7) k/uL BUN (9-20) mg/dL Creatinine (0.66-1.25) mg/dL Glucose (74-99) mg/dL POC Glucose (mg/dL) 263 H 196 H 222 H (75-99) mg/dL AST (17-59) U/L ALT (21-72) U/L Alkaline Phosphatase (38-126) U/L Microbiology - Last 24 Hours (Table) 08/29/17 21:44 Blood Culture - Preliminary Blood No Growth after 96 hours Laboratory Results WBC 12.3 k/uL (3.8-10.6) H 09/03/17 07:39 RBC 3.78 m/uL (4.30-5.90) L 09/03/17 07:39 Hgb 11.1 gm/dL (13.0-17.5) L 09/03/17 07:39 Hct 35.8 % (39.0-53.0) L 09/03/17 07:39 MCV 94.7 fL (80.0-100.0) 09/03/17 07:39 MCH 29.5 pg (25.0-35.0) 09/03/17 07:39 MCHC 31.1 g/dL (31.0-37.0) 09/03/17 07:39 RDW 14.8 % (11.5-15.5) 09/03/17 07:39 Plt Count 259 k/uL (150-450) 09/03/17 07:39 Neutrophils % 79 % 09/03/17 07:39 Lymphocytes % 11 % 09/03/17 07:39 Monocytes % 5 % 09/03/17 07:39 Eosinophils % 2 % 09/03/17 07:39 Basophils % 1 % 09/03/17 07:39 Neutrophils # 9.7 k/uL (1.3-7.7) H 09/03/17 07:39 Lymphocytes # 1.3 k/uL (1.0-4.8) 09/03/17 07:39 Monocytes # 0.6 k/uL (0-1.0) 09/03/17 07:39 Eosinophils # 0.3 k/uL (0-0.7) 09/03/17 07:39 Basophils # 0.1 k/uL (0-0.2) 09/03/17 07:39 Hypochromasia Slight 08/31/17 08:06 PT 11.4 sec (9.0-12.0) 08/28/17 07:08 INR 1.2 (<1.2) H 08/28/17 07:08 APTT 23.9 sec (22.0-30.0) 08/28/17 07:08 Sodium 138 mmol/L (137-145) 09/03/17 07:39 Potassium 4.4 mmol/L (3.5-5.1) 09/03/17 07:39 Chloride 99 mmol/L (98-107) 09/03/17 07:39 Carbon Dioxide 27 mmol/L (22-30) 09/03/17 07:39 Anion Gap 12 mmol/L 09/03/17 07:39 BUN 41 mg/dL (9-20) H 09/03/17 07:39 Creatinine 2.18 mg/dL (0.66-1.25) H 09/03/17 07:39 Est GFR (MDRD) Af Amer 37 (>60 ml/min/1.73 sqM) 09/03/17 07:39 Est GFR (MDRD) Non-Af 30 (>60 ml/min/1.73 sqM) 09/03/17 07:39 Glucose 197 mg/dL (74-99) H 09/03/17 07:39 POC Glucose (mg/dL) 222 mg/dL (75-99) H 09/03/17 20:57 POC Glu Map Plotter DORIE Louise Floyd 09/03/17 20:[address] Glu mg/dL 194 08/28/17 07:08 Hemoglobin A1c 8.4 % (4.0-6.0) H 08/28/17 07:08 Plasma Lactic Acid Anthony 1.1 mmol/L (0.7-2.0) 08/29/17 21:44 Calcium 9.5 mg/dL (8.4-10.2) 09/03/17 07:39 Magnesium 1.8 mg/dL (1.6-2.3) 09/02/17 07:20 Total Bilirubin 1.2 mg/dL (0.2-1.3) 09/03/17 07:39 AST 96 U/L (17-59) H 09/03/17 07:39 ALT 89 U/L (21-72) H 09/03/17 07:39 Alkaline Phosphatase 183 U/L (38-126) H 09/03/17 07:39 Total Protein 6.7 g/dL (6.3-8.2) 09/03/17 07:39 Albumin 3.6 g/dL (3.5-5.0) 09/03/17 07:39 Lipase 211 U/L (23-300) 08/27/17 23:11 CA 19-9 Antigen 12.1 U/mL (0.0-34.9) 08/31/17 08:00 Urine Color Yellow 08/27/17 20:10 Urine Appearance Clear (Clear) 08/27/17 20:10 Urine pH 5.5 (5.0-8.0) 08/27/17 20:10 Ur Specific Gypsum 1.010 (1.001-1.035) 08/27/17 20:10 Urine Protein 1+ (Negative) H 08/27/17 20:10 Urine Glucose (UA) Trace (Negative) H 08/27/17 20:10 Urine Ketones Negative (Negative) 08/27/17 20:10 Urine Blood Negative (Negative) 08/27/17 20:10 Urine Nitrite Negative (Negative) 08/27/17 20:10 Urine Bilirubin Negative (Negative) 08/27/17 20:10 Urine Urobilinogen <2.0 mg/dL (<2.0) 08/27/17 20:10 Ur Leukocyte Esterase Negative (Negative) 08/27/17 20:10 Urine WBC <1 /hpf (0-5) 08/27/17 20:10 Urine Bacteria Rare /hpf (None) H 08/27/17 20:10 Gastric Occult Blood Positive (Negative) 08/31/17 03:26 Hepatitis A IgM Ab Non-Reactive (Non-Reactive) 08/27/17 19:05 Hep Bs Antigen Non-Reactive (Non-Reactive) 08/30/17 07:51 Hep B Core IgM Ab Reactive (Non-Reactive) H 08/27/17 19:05 Hepatitis B DNA, Quant <10 IU/mL (<10) 08/30/17 07:51 Hep B DNA Qnt log IU/mL <1.00 (<1.00) 08/30/17 07:51 Hep B DNA Interpret Not detected (Not detected) 08/30/17 07:51 Hepatitis Be Antibody NEG (Negative) 08/30/17 07:51 Hepatitis Be Antigen NEG (Negative) 08/30/17 07:51 Hep C IgG Ab Non-Reactive (Non-Reactive) 08/27/17 19:05 Influenza Type A RNA Not Detected (Not Detectd) 08/27/17 19:05 Influenza Type B (PCR) Not Detected (Not Detectd) 08/27/17 19:05 Microbiology 08/29/17 21:44 Blood Blood Culture - Preliminary No Growth after 96 hours 08/27/17 19:05 Blood Blood Culture Gram Stain - Final 08/27/17 19:05 Blood Blood Culture - Final Escherichia coli 08/27/17 20:10 Urine,Catheterized Urine Culture - Final 08/27/17 19:05 Blood Blood Culture - Final Assessment and Plan (1) Acute cholecystitis Narrative/Plan: 66 show male presents to Hospital with his because of some altered mental status feeling poorly with abdominal pain nausea and fever. Was on evidence of acute cholecystitis is not taking the operating room and has had the laparoscopic cholecystectomy. Postoperatively the patient is not feeling very well. Still having fever and some nausea and nursing has related to some emesis. Pain control appears to be adequate. He is having some altered mental status from anesthesia and his current sepsis. Laboratories call gram-negative bacilli in the blood culture. We'll alter antibiotic therapy from Unasyn to Zosyn given his ongoing fevers. Will offer intravenous Tylenol also. Continue with fluids and supportive care. As far as the left leg will utilize the Aquacel foam this area rolled gauze and Pastor wrap to be utilized to help control the edema to prevent any further new difficulties at that site and actually has had significant improvement with the multilayer wraps up in applied at the wound healing Center. Leukocytosis due to his current gram-negative sepsis as is his fever. Patient did have abnormal liver function tests and consequently hepatitis testing was performed because of the current hepatitis A outbreak and surprising hepatitis B core antibody IgM was found. We'll do further workup for hepatitis B and it's possible current activity. 08/30/2017 reveals the patient is feeling better. He is without new acute difficulties and is feeling considerably better with reduction of his fever. His bilirubin did increase and MRCP has been requested by gastroenterology. This will help determine the next steps. Still awaiting verification of the activity was hepatitis B. Continue with local care to his left leg which he is tolerating well and showing improvement. 08/31/2017 reveals the patient with further improvement. He is eating solids for his dinner. Denies further fevers or chills. Abdominal pain is improving. The left lower extremity is rewrapped with a zinc-based dressing which he finds to be very soothing and tolerated well. This should be changed daily for now. Continue to elevate the limb. With his current illness and the protracted elevation of the leg it is quite remarkable how much improvement there as occurred already. The hepatitis B workup is in process and he is negative for hepatitis B E antigen and antibody. Viral load is pending. Total bilirubin is improving without evidence of cholangitis. The E. coli that has been found in his blood culture is quite susceptible and will be able to be treated with oral antibiotic therapy at his discharge. 09/02/2017 reveals the patient to have further improvement. Case is discussed with gastroenterology. The patient appears to have a false positive hepatitis B core IgM in that all the other parameters including the viral load are negative. Continue with local care to the left lower extremity that is considerably improved with the zinc wrap. Utilize oral ciprofloxacin to complete course of treatment for his gram-negative bacteremia from his cholecystitis and cholangitis. Does have evidence of new lesion on his left leg , consistent with varicella-zoster and consequently Valtrex is given. 09/03/2017 reveals the patient to have some further improvement. Abdominal pain is improving. No evidence of hepatitis B or C by extensive testing at this time. The lesions of the leg consistent with shingles and Valtrex has been started. Patient was transferred to rehab to improve his functional status. No need for a type of isolation given the single dermatome of zoster. For the E. coli bacteremia is antibiotic therapy has changed to oral ciprofloxacin to complete the course of therapy. Current Visit: Yes Status: Acute Code(s): K81.0 - ACUTE CHOLECYSTITIS SNOMED Code(s): 01992270 (2) Hepatitis B core antibody positive Current Visit: Yes Status: Acute Code(s): R76.8 - OTHER SPECIFIED ABNORMAL IMMUNOLOGICAL FINDINGS IN SERUM SNOMED Code(s): 081070593 (3) Obesity, Class III, BMI 40-49.9 (morbid obesity) Current Visit: No Status: Acute Code(s): E66.01 - MORBID (SEVERE) OBESITY DUE TO EXCESS CALORIES SNOMED Code(s): 851069241 (4) Bilateral lower extremity edema Current Visit: No Status: Acute Code(s): R60.0 - LOCALIZED EDEMA SNOMED Code(s): 246297468 (5) Gram negative sepsis Current Visit: Yes Status: Acute Code(s): A41.50 - GRAM-NEGATIVE SEPSIS, UNSPECIFIED SNOMED Code(s): 481708970
[2017-09-03 22:05] LABS: Appearance,Urine Clear (Clear); Bilirubin,Urine Negative (Negative); Blood,Urine Negative (Negative); Color,Urine Yellow; Glucose,Urine (UA) Trace (Negative); Ketones,Urine Negative (Negative); Leukocyte Esterase,Urine Small (Negative); PH, Urine 5.5 (5.0-8.0); Protein,Urine 1+ (Negative); RBC,Urine 1 /hpf (0-5); Specific Gravity,Urine 1.014 (1.001-1.035); Squamous Epithelial Cell,Urine <1 /hpf (0-4); Urobilinogen,Urine <2.0 mg/dL (<2.0); WBC,Urine 2 /hpf (0-5)
--- NOTE | 2017-09-03 22:07 | PN ---
PROGRESS NOTE DATE OF SERVICE: 09/03/2017 This 66-year-old gentleman admitted with acute cholecystitis had laparoscopic cholecystectomy. The patient is still having continued fever. The most recent chest x- ray showed no active pulmonary lesions. The most recent blood cultures are negative. The white count is still elevated at 12.3. Sugars are also elevated. Creatinine is stable at 2.18. The patient also had herpes zoster of the left L3 segment. On exam, alert and oriented x3. Pulse is 93, blood pressure 150/69, respiration 20, temperature normal, pulse ox 96% on room air. HEENT: Conjunctivae normal. NECK: No jugular venous distention. CARDIOVASCULAR SYSTEM: S1, S2 muffled. RESPIRATORY SYSTEM: Breath sounds diminished at the bases. A few scattered rhonchi and crackles. ABDOMEN: Soft. Status post surgery. LEGS: No edema. No swelling. Vesicular lesion in the left L3 present. NERVOUS SYSTEM: No focal deficit. LABS: WBC 12.3, hemoglobin 11.1, creatinine 2.18. ASSESSMENT: 1. Escherichia coli sepsis. 2. Acute cholecystitis with sepsis and possible Escherichia coli, status post laparoscopic cholecystectomy. 3. Acute herpes zoster L3 left leg. 4. Possible left lower lobe atelectasis, pneumonia. 5. Chronic kidney disease, stage III. 6. Diabetes mellitus, type 2. 7. Chronic obstructive pulmonary disease. 8. Congestive heart failure with chronic diastolic dysfunction, ejection fraction about 50% to 60%. 9. History of coronary artery disease. 10.Hypertension. 11.Hyperlipidemia. 12.Anemia of chronic disease. 13.History of gastroesophageal reflux disease. 14.History of coronary artery disease, stent. 15.History of chronic left lower extremity wound, being followed by Infectious Disease. RECOMMENDATIONS AND DISCUSSION: I recommend to continue current medication, continue with symptomatic treatment. Continue with antibiotic, antiviral. Closely monitor. Further recommendations to follow. MMODL / IJN: [id number] /
[2017-09-03] MEDS: CIPROFLOXACIN HCL 500 MG TAB PO SCH (23:11)
[2017-09-04] MEDS: IPRATROPIUM-ALBUTEROL 3 ML NEB INHALATION SCH ×4 (07:07→20:03)
[2017-09-04] MEDS: SYMBICORT 160-4.5 MCG INHALER INHALATION SCH ×2 (07:07→20:03)
[2017-09-04 07:27] LABS: Basophils # (A) 0.1 k/uL (0-0.2); Basophils % (A) 1 %; Eosinophils # (A) 0.3 k/uL (0-0.7); Eosinophils % (A) 3 %; HCT 33.4 % (39.0-53.0); HGB 10.5 gm/dL (13.0-17.5); Lymphocytes # (A) 1.4 k/uL (1.0-4.8); Lymphocytes % (A) 14 %; MCH 30.1 pg (25.0-35.0); MCHC 31.4 g/dL (31.0-37.0); MCV 95.8 fL (80.0-100.0); Mean Platelet Volume 7.4; Monocytes # (A) 0.6 k/uL (0-1.0); Monocytes % (A) 6 %; Neutrophils % (A) 72 %; Platelet Count 260 k/uL (150-450); RBC 3.49 m/uL (4.30-5.90); RDW 14.8 % (11.5-15.5); WBC 9.7 k/uL (3.8-10.6)
[2017-09-04] MEDS: INSULIN ASPART 100 UNIT/ML 1 ML 10 ML VIAL SQ SCH ×4 (07:27→21:54)
[2017-09-04 07:32] LABS: Glucose,Whole Blood 117 mg/dL (75-99)
[2017-09-04 07:35] LABS: Calcium 9.1 mg/dL (8.4-10.2); Potassium 4.1 mmol/L (3.5-5.1)
[2017-09-04] MEDS: CIPROFLOXACIN HCL 500 MG TAB PO SCH ×2 (08:10→20:26)
[2017-09-04] MEDS: HEPARIN SODIUM,PORCINE 5,000 UNIT/ML 1 ML VIAL SQ SCH ×2 (08:10→20:26)
[2017-09-04] MEDS: hydrALAZINE HCL 50 MG TAB PO SCH ×3 (08:10→20:26)
[2017-09-04] MEDS: GABAPENTIN 300 MG CAP PO SCH ×3 (08:11→20:26)
[2017-09-04] MEDS: valACYclovir 500 MG TAB PO SCH ×2 (08:11→20:26)
[2017-09-04] MEDS: amLODIPine 5 MG TAB PO SCH ×2 (08:11→20:26)
[2017-09-04] MEDS: CHOLECALCIFEROL 1,000 UNIT TAB PO SCH (08:11)
[2017-09-04] MEDS: FERROUS SULFATE 325 MG TAB PO SCH (08:11)
[2017-09-04] MEDS: MAGNESIUM OXIDE 400 MG TAB PO SCH (08:11)
[2017-09-04] MEDS: ASPIRIN 81 MG PO SCH (08:11)
[2017-09-04] MEDS: ALLOPURINOL 100 MG TAB PO SCH (08:11)
[2017-09-04] MEDS: SODIUM POLYSTYRENE SULFONATE 15 GM/60 ML BOTTLE PO SCH (08:11)
[2017-09-04] MEDS: PANTOPRAZOLE 40 MG TABLET PO SCH (08:11)
[2017-09-04] MEDS: HYDROcodone/APAP 10-325MG 1 EACH TAB PO PRN (08:14)
[2017-09-04 11:38] VITALS: BMI 32.4
[2017-09-04 12:11] LABS: Glucose,Whole Blood 273 mg/dL (75-99)
[2017-09-04] MEDS: INSULIN DETEMIR 100 UNIT/ML 10 ML VIAL SQ SCH (12:41)
[2017-09-04] MEDS: [UNRECOGNIZED DRUG - OTHER] PO SCH (14:01)
[2017-09-04] MEDS: SODIUM CHLORIDE 0.9% 1,000 ML IV SCH (14:01)
[2017-09-04 17:06] LABS: Glucose,Whole Blood 187 mg/dL (75-99)
[2017-09-04] MEDS: ATORVASTATIN 20 MG TAB PO SCH (20:26)
[2017-09-04 21:35] LABS: Glucose,Whole Blood 262 mg/dL (75-99)
--- NOTE | 2017-09-04 22:51 | PN ---
PROGRESS NOTE DATE OF SERVICE: 09/04/2017 INTERVAL HISTORY: This 66year-old gentleman admitted with acute cholecystitis and laparoscopic cholecystectomy. Patient also had sepsis with E. coli. Patient also had a UTI and sepsis and herpes zoster, left L3 segment also. No chest pain. No palpitations. No fever. PHYSICAL EXAM: Alert and oriented times three. Pulse 75, blood pressure 110/40. Respiratory rate temperature normal, pulse ox 94% on room air. HEENT: Conjunctivae normal. Oral mucosa moist. Neck is no jugular venous distention. No carotid bruit. No lymph node enlargement. Cardiovascular: S1, S2 muffled. Respirations: Breath sounds diminished in the bases. A few scattered rhonchi and crackles. ABDOMEN: Soft status post surgery. Legs are no edema. No swelling. Central nervous system: No focal deficits. LABS: Accu-Cheks noted. Creatinine is 2. Hemoglobin 10.8, white count is normal. ASSESSMENT: 1. E coli sepsis. 2. Acute cholecystitis sepsis with possibly E. coli status post laparoscopic cholecystectomy. 3. Acute herpes zoster L3 left leg. 4. Possible left lower pneumonia atelectasis improving. 5. Chronic kidney disease stage 3. 6. Diabetes type 2. 7. Chronic obstructive pulmonary disease. 8. Congestive heart failure with chronic diastolic dysfunction ejection fraction 50- 60%. 9. History of coronary artery disease. 10.Hypertension. 11.Hyperlipidemia. 12.Anemia of chronic disease. 13.History of gastroesophageal reflux disease. 14.History of coronary artery disease, stent. 15.History of chronic left lower extremity wound, being followed by Infectious Disease. RECOMMENDATIONS AND DISCUSSION: Recommend to continue current medications, continue with monitoring and symptomatic treatment. Continue the antibiotics. Antivirals. Increase ambulation. PT/OT evaluation, possible ECF rehab. Monitor creatinine closely. Further recommendations to follow. MMODL / IJN: [id number] / SIMBA
[2017-09-05 07:08] LABS: Glucose,Whole Blood 126 mg/dL (75-99)
[2017-09-05] MEDS: INSULIN ASPART 100 UNIT/ML 1 ML 10 ML VIAL SQ SCH ×4 (07:47→22:20)
[2017-09-05] MEDS: IPRATROPIUM-ALBUTEROL 3 ML NEB INHALATION SCH ×4 (08:27→21:08)
[2017-09-05] MEDS: SYMBICORT 160-4.5 MCG INHALER INHALATION SCH ×2 (08:27→21:07)
[2017-09-05] MEDS: ASPIRIN 81 MG PO SCH (08:54)
[2017-09-05] MEDS: CHOLECALCIFEROL 1,000 UNIT TAB PO SCH (08:54)
[2017-09-05] MEDS: FERROUS SULFATE 325 MG TAB PO SCH (08:55)
[2017-09-05] MEDS: HEPARIN SODIUM,PORCINE 5,000 UNIT/ML 1 ML VIAL SQ SCH ×2 (08:55→20:18)
[2017-09-05] MEDS: GABAPENTIN 300 MG CAP PO SCH ×3 (08:55→20:18)
[2017-09-05] MEDS: CIPROFLOXACIN HCL 500 MG TAB PO SCH ×2 (08:55→20:18)
[2017-09-05] MEDS: amLODIPine 5 MG TAB PO SCH ×2 (08:55→20:18)
[2017-09-05] MEDS: hydrALAZINE HCL 50 MG TAB PO SCH ×3 (08:56→20:18)
[2017-09-05] MEDS: PANTOPRAZOLE 40 MG TABLET PO SCH (08:56)
[2017-09-05] MEDS: MAGNESIUM OXIDE 400 MG TAB PO SCH (08:56)
[2017-09-05] MEDS: SODIUM POLYSTYRENE SULFONATE 15 GM/60 ML BOTTLE PO SCH (08:56)
[2017-09-05] MEDS: valACYclovir 500 MG TAB PO SCH ×2 (08:57→20:18)
[2017-09-05] MEDS: HYDROcodone/APAP 10-325MG 1 EACH TAB PO PRN ×2 (09:10→17:24)
[2017-09-05] MEDS: ALLOPURINOL 100 MG TAB PO SCH (09:11)
[2017-09-05 09:24] LABS: Basophils # (A) 0.1 k/uL (0-0.2); Basophils % (A) 1 %; Eosinophils # (A) 0.4 k/uL (0-0.7); Eosinophils % (A) 4 %; HCT 35.8 % (39.0-53.0); HGB 10.8 gm/dL (13.0-17.5); Lymphocytes # (A) 1.7 k/uL (1.0-4.8); Lymphocytes % (A) 14 %; MCH 29.4 pg (25.0-35.0); MCHC 30.3 g/dL (31.0-37.0); MCV 97.2 fL (80.0-100.0); Mean Platelet Volume 7.4; Monocytes # (A) 0.5 k/uL (0-1.0); Monocytes % (A) 4 %; Neutrophils # (A) 8.8 k/uL (1.3-7.7); Neutrophils % (A) 75 %; Platelet Count 313 k/uL (150-450); RBC 3.69 m/uL (4.30-5.90); RDW 14.8 % (11.5-15.5); WBC 11.8 k/uL (3.8-10.6)
[2017-09-05 09:30] LABS: Calcium 9.4 mg/dL (8.4-10.2); Potassium 4.3 mmol/L (3.5-5.1)
[2017-09-05 12:06] LABS: Glucose,Whole Blood 324 mg/dL (75-99)
[2017-09-05] MEDS: INSULIN DETEMIR 100 UNIT/ML 10 ML VIAL SQ SCH (13:56)
[2017-09-05] MEDS: SODIUM CHLORIDE 0.9% 1,000 ML IV SCH (13:59)
[2017-09-05 17:13] LABS: Glucose,Whole Blood 292 mg/dL (75-99)
--- NOTE | 2017-09-05 17:40 | PN ---
PROGRESS NOTE DATE OF SERVICE: 09/05/2017. INTERVAL HISTORY: This 66-year-old gentleman was admitted with acute cholecystitis also had E coli sepsis. The patient also had acute herpes zoster L3-4 segment of the left lower lumbar limb. No chest pain. No palpitations. No fever. White count is slightly elevated. EXAM: Alert and oriented x3. The pulse is 82. The blood pressure is 140/70, respiration 16, temperature 99.4, pulse ox 94% on room air. HEENT: Conjunctivae normal. Cardiac: S1, S2 muffled. Respiratory: Breath sounds diminished in the bases. A few scattered rhonchi and crackles. Abdomen: Soft. Left leg herpes zoster ulceration present, lesion present. Nervous system: No focal deficits. LABORATORY DATA: WBC 11.2, hemoglobin 10.8, INR 1.90. ASSESSMENT: 1. Acute cholecystitis with sepsis E coli status post laparoscopic cholecystectomy. 2. Acute herpes zoster L3-4 segment of the left leg. 3. Possible left lower pneumonia with atelectasis improving. 4. Chronic kidney disease stage 3. 5. Diabetes type 2. 6. History of chronic obstructive pulmonary disease. 7. History of congestive heart failure with chronic diastolic dysfunction, ejection fraction 50-60%. 8. History of coronary artery disease. 9. Hypertension. 10.Hyperlipidemia. 11.History of anemia of chronic disease. 12.History of gastroesophageal reflux disease. 13.History of coronary artery disease/stent. 14.History of chronic left extremity wound, being followed by Infectious Disease. RECOMMENDATIONS AND DISCUSSION: Recommend to continue current mediations, management and symptomatic treatment. Continue with antibiotics. Monitor abnormal labs as mentioned earlier. Closely follow with Infectious Disease. Further recommendations to follow. MMODL / IJN: [id number] /
[2017-09-05] MEDS: ATORVASTATIN 20 MG TAB PO SCH (20:18)
[2017-09-05 21:41] LABS: Glucose,Whole Blood 215 mg/dL (75-99)
[2017-09-05 23:32] VITALS: RESP 18
[2017-09-06] MEDS: HYDROcodone/APAP 10-325MG 1 EACH TAB PO PRN ×2 (02:14→11:26)
[2017-09-06 06:43] VITALS: BP 150/74; TEMP 97.7
[2017-09-06 06:57] LABS: Glucose,Whole Blood 150 mg/dL (75-99)
[2017-09-06] MEDS: SYMBICORT 160-4.5 MCG INHALER INHALATION SCH (07:13)
[2017-09-06] MEDS: IPRATROPIUM-ALBUTEROL 3 ML NEB INHALATION SCH ×2 (07:13→11:15)
[2017-09-06] MEDS: SODIUM POLYSTYRENE SULFONATE 15 GM/60 ML BOTTLE PO SCH (07:47)
[2017-09-06] MEDS: HEPARIN SODIUM,PORCINE 5,000 UNIT/ML 1 ML VIAL SQ SCH (07:48)
[2017-09-06] MEDS: ASPIRIN 81 MG PO SCH (07:49)
[2017-09-06] MEDS: INSULIN ASPART 100 UNIT/ML 1 ML 10 ML VIAL SQ SCH ×2 (07:49→11:36)
[2017-09-06] MEDS: valACYclovir 500 MG TAB PO SCH (07:49)
[2017-09-06] MEDS: CALCITRIOL 0.25 MCG CAP PO SCH (07:50)
[2017-09-06] MEDS: FERROUS SULFATE 325 MG TAB PO SCH (07:50)
[2017-09-06] MEDS: hydrALAZINE HCL 50 MG TAB PO SCH (07:50)
[2017-09-06] MEDS: MAGNESIUM OXIDE 400 MG TAB PO SCH (07:50)
[2017-09-06] MEDS: CHOLECALCIFEROL 1,000 UNIT TAB PO SCH (07:51)
[2017-09-06] MEDS: amLODIPine 5 MG TAB PO SCH (07:51)
[2017-09-06] MEDS: ALLOPURINOL 100 MG TAB PO SCH (07:51)
[2017-09-06] MEDS: CIPROFLOXACIN HCL 500 MG TAB PO SCH (07:51)
[2017-09-06] MEDS: GABAPENTIN 300 MG CAP PO SCH (07:51)
[2017-09-06] MEDS: PANTOPRAZOLE 40 MG TABLET PO SCH (07:51)
[2017-09-06 08:36] LABS: Basophils # (A) 0.1 k/uL (0-0.2); Basophils % (A) 1 %; Eosinophils # (A) 0.4 k/uL (0-0.7); Eosinophils % (A) 4 %; HCT 34.2 % (39.0-53.0); HGB 10.7 gm/dL (13.0-17.5); Lymphocytes # (A) 1.6 k/uL (1.0-4.8); Lymphocytes % (A) 13 %; MCH 29.5 pg (25.0-35.0); MCHC 31.2 g/dL (31.0-37.0); MCV 94.6 fL (80.0-100.0); Mean Platelet Volume 7.9; Monocytes # (A) 0.7 k/uL (0-1.0); Monocytes % (A) 6 %; Neutrophils # (A) 9.1 k/uL (1.3-7.7); Neutrophils % (A) 74 %; Platelet Count 357 k/uL (150-450); RBC 3.61 m/uL (4.30-5.90); RDW 14.7 % (11.5-15.5); WBC 12.2 k/uL (3.8-10.6)
[2017-09-06 09:00] LABS: Calcium 9.5 mg/dL (8.4-10.2); Potassium 4.5 mmol/L (3.5-5.1)
[2017-09-06 11:22] VITALS: PULSE 72
[2017-09-06] MEDS: INSULIN DETEMIR 100 UNIT/ML 10 ML VIAL SQ SCH (11:36)
--- NOTE | 2017-09-06 11:52 | P.DS ---
Providers Date of admission: 08/27/17 22:48 Expected date of discharge: 09/06/17 Attending physician: Luke Woods Consults: 08/28/17 21:03 Consult Physician Routine Consulting Provider: Kris Campuzano Reason/Comments: fever/leg wound Do you want consulting provider notified?: Yes Primary care physician: [facility]ar[facility] Course: Final Diagnoses: 1. Acute cholecystitis with sepsis, E. coli, status post upper scope a cholecystectomy 2. Acute herpes zoster, L3-4 segment of the left lower lumbar limb 3. Possible left lower pneumonia with atelectasis improving 4. CK D, stage III 5. Diabetes type 2 6. History of COPD 7. Chronic congestive heart failure, systolic dysfunction, EF 50-60% 8. History of chronic left extremity wound being followed by infectious disease. 9. Possible pancreatic head mass per CT, further outpatient follow-up recommended Hospital course:this is 66-year-old gentleman admitted with acute cholecystitis , E. coli sepsis, acute herpes zoster L3-4 segment of the left lower lumbar llimband multiple other medical issues. Evaluated by GI and surgery, underwent laparoscopic cholecystectomy.CT reporting possible pancreatic head mass with outpatient open MRI in 4 weeks. Maintained on antibiotics as per infectious disease. Significant clinical improvement. Cleared by all consults for discharge. Patient is being discharged to [facility] subacute rehab in a stable condition with guarded prognosis. Physical Exam: VSS, alert and oriented 3, CV: regular S1 and S2. Lungs: diminished,ABD: soft, nondistended, positive bowel sounds, status postl surgery. no focal deficits. Microbiology 09/03/17 20:54 Urine,Voided Urine Culture - Final Nakia albicans 09/03/17 16:14 Blood Blood Culture - Preliminary No Growth after 48 hours 08/29/17 21:44 Blood Blood Culture - Final No Growth after 144 hours 08/27/17 19:05 Blood Blood Culture Gram Stain - Final 08/27/17 19:05 Blood Blood Culture - Final Escherichia coli 08/27/17 20:10 Urine,Catheterized Urine Culture - Final 08/27/17 19:05 Blood Blood Culture - Final The impression and plan of care has been dictated as directed. : I performed a history and examination of this patient, discussed the same with the dictator. I agree with the dictator's note ,documented as a scribe. Any additional findings or plans will be noted. Time taken: 35 minutes Patient Condition at Discharge: Stable Plan - Discharge Summary Discharge Rx Participant: No New Discharge Prescriptions: New valACYclovir [Valtrex] 1,000 mg PO BID #28 tab Budesonide-Formot 160-4.5 Mcg [Symbicort 160-4.5 Mcg Inhaler] 2 puff INHALATION RT-BID puff INSULIN LISPRO (HumaLOG) [humaLOG] 0 unit SQ ACHS #1 vial Ipratropium-Albuterol Nebulize [Duoneb 0.5 mg-3 mg/3 ml Soln] 3 ml INHALATION RT-QID ampul.neb Ipratropium-Albuterol Nebulize [Duoneb 0.5 mg-3 mg/3 ml Soln] 3 ml INHALATION Q4H PRN ampul.neb PRN Reason: Shortness Of Breath Or Wheezing Loratadine [Claritin] 10 mg PO DAILY PRN tab PRN Reason: Allergy Symptoms Pantoprazole [Protonix] 40 mg PO DAILY tablet.dr Continue Cholecalciferol [Vitamin D3] 5,000 unit PO DAILY Magnesium Oxide [Mag-Ox] 250 mg PO DAILY Allopurinol [Zyloprim] 100 mg PO DAILY Gabapentin [Neurontin] 300 mg PO TID Calcitriol [Rocaltrol] 0.25 mcg PO MOWEFR Simvastatin [Zocor] 40 mg PO HS Sodium Polystyrene Sulfon/Sorb [Kionex 15 gm/60 ml Suspension] 2 tbsp PO DAILY Fish Oil/Dha/Epa [Fish Oil 1,200 mg Fish Oil] 1 cap PO DAILY HYDROcodone/APAP 10-325MG [[place] 10-325] 1 tab PO TID PRN PRN Reason: Pain Roxadustat 50mg-100mg 1 cap PO TUTHSA Ferrous Sulfate [Iron (65 MG Elemental)] 325 mg PO DAILY hydrALAZINE HCL [Apresoline] 100 mg PO TID Insulin Glargine,Hum.rec.anlog [Touasafo Solostar] 30 units SQ 1200 Furosemide [Lasix] 40 mg PO BID amLODIPine [Norvasc] 5 mg PO BID Aspirin 325 mg PO DAILY Discharge Medication List Allopurinol [Zyloprim] 100 mg PO DAILY 04/22/15 [History] Calcitriol [Rocaltrol] 0.25 mcg PO MOWEFR 04/22/15 [History] Cholecalciferol [Vitamin D3] 5,000 unit PO DAILY 04/22/15 [History] Gabapentin [Neurontin] 300 mg PO TID 04/22/15 [History] Magnesium Oxide [Mag-Ox] 250 mg PO DAILY 04/22/15 [History] Fish Oil/Dha/Epa [Fish Oil 1,200 mg Fish Oil] 1 cap PO DAILY 09/06/15 [History] HYDROcodone/APAP 10-325MG [[place] 10-325] 1 tab PO TID PRN 09/06/15 [History] Roxadustat 50mg-100mg 1 cap PO TUTHSA 09/06/15 [History] Simvastatin [Zocor] 40 mg PO HS 09/06/15 [History] Sodium Polystyrene Sulfon/Sorb [Kionex 15 gm/60 ml Suspension] 2 tbsp PO DAILY 09/06/15 [History] Ferrous Sulfate [Iron (65 MG Elemental)] 325 mg PO DAILY 10/23/15 [History] Insulin Glargine,Hum.rec.anlog [[place]jeo Solostar] 30 units SQ 1200 05/04/16 [ History] hydrALAZINE HCL [Apresoline] 100 mg PO TID 05/04/16 [History] Furosemide [Lasix] 40 mg PO BID 07/22/17 [History] Aspirin 325 mg PO DAILY 08/27/17 [History] amLODIPine [Norvasc] 5 mg PO BID 08/27/17 [History] Budesonide-Formot 160-4.5 Mcg [Symbicort 160-4.5 Mcg Inhaler] 2 puff INHALATION RT-BID puff 09/06/17 [Rx] INSULIN LISPRO (HumaLOG) [humaLOG] 0 unit SQ ACHS #1 vial 09/06/17 [Rx] Ipratropium-Albuterol Nebulize [Duoneb 0.5 mg-3 mg/3 ml Soln] 3 ml INHALATION Q4H PRN ampul.neb 09/06/17 [Rx] Ipratropium-Albuterol Nebulize [Duoneb 0.5 mg-3 mg/3 ml Soln] 3 ml INHALATION RT -QID ampul.neb 09/06/17 [Rx] Loratadine [Claritin] 10 mg PO DAILY PRN tab 09/06/17 [Rx] Pantoprazole [Protonix] 40 mg PO DAILY tablet. 09/06/17 [Rx] valACYclovir [Valtrex] 1,000 mg PO BID #28 tab 09/06/17 [Rx] Follow up Appointment(s)/Referral(s): Abad Vela MD [Medical Doctor] - 1 Week Marylin Herman MD [STAFF PHYSICIAN] - 10/13/17 3:30 pm Papo Ford MD [Primary Care Provider] - 1 Week (after DC from [facility]) Ambulatory/Diagnostic Orders: Miscellaneous Radiology Order [RAD.AMB] Time Frame: 1 Month, Location: Determined By Patient Patient Instructions/Handouts: *Surgery [facility] - Laparoscopic Cholecystectomy Discharge Instructions, Type 2 Diabetes in Adults (DC) Activity/Diet/Wound Care/Special Instructions: [facility] ANtibiotics as per I/D Cardiac, diabetic diet.LUZ ELENA.Low fat. Heart failure booklet given and explained. Activity as tolerated. Fall precautions. Up with walker or cane. Keep incision clean and dry. Dr. Batsheva benoit (GI) will notify patient with open MRI appointment date and time. No tub bath for six weeks. Shower daily. No lifting over 4 pounds for the next 6 weeks.. May use ice packs to surgical site. CBC, CMP in 3 days Lasix on hold currently, r/t renal function renal function BiPAP at night :
[2017-09-06 11:53] LABS: Glucose,Whole Blood 204 mg/dL (75-99)
[2017-09-06] MEDS: SODIUM CHLORIDE 0.9% 1,000 ML IV SCH (14:57)
== END 2017-09-06 15:31 | DRG 853 ==
LOC: EC 18:15 → UNDOADMOB 22:32 → 6PED 22:32 → 4MS4W 22:48
PROVIDERS: ADMIT Hospitalist; ATTEND Hospitalist
PROC: 0FT44ZZ Resection of Gallbladder, Percutaneous Endoscopic Approach (ICD-10-PCS; principal; 2017-08-29 10:00)
DX: A41.51 Sepsis due to Escherichia coli [E. coli] (principal); J18.9 Pneumonia, unspecified organism; K83.0 Cholangitis; E11.21 Type 2 diabetes mellitus with diabetic nephropathy; I13.0 Hypertensive heart and chronic kidney disease with heart failure and stage 1 through stage 4 chronic kidney disease, or unspecified chronic kidney disease; K80.00 Calculus of gallbladder with acute cholecystitis without obstruction; E66.01 Morbid (severe) obesity due to excess calories; B02.9 Zoster without complications; I50.32 Chronic diastolic (congestive) heart failure; I27.20 Pulmonary hypertension, unspecified; N18.3 Chronic kidney disease, stage 3 (moderate); E11.22 Type 2 diabetes mellitus with diabetic chronic kidney disease; I87.2 Venous insufficiency (chronic) (peripheral); K42.9 Umbilical hernia without obstruction or gangrene; E78.5 Hyperlipidemia, unspecified; M19.90 Unspecified osteoarthritis, unspecified site; G47.30 Sleep apnea, unspecified; M10.9 Gout, unspecified; K21.9 Gastro-esophageal reflux disease without esophagitis; J44.9 Chronic obstructive pulmonary disease, unspecified; I25.10 Atherosclerotic heart disease of native coronary artery without angina pectoris; D63.8 Anemia in other chronic diseases classified elsewhere; R76.8 Other specified abnormal immunological findings in serum; Z68.32 Body mass index [BMI] 32.0-32.9, adult; Z88.1 Allergy status to other antibiotic agents; Z86.19 Personal history of other infectious and parasitic diseases; Z88.2 Allergy status to sulfonamides; Z88.8 Allergy status to other drugs, medicaments and biological substances; Z79.899 Other long term (current) drug therapy; Z79.82 Long term (current) use of aspirin; Z79.4 Long term (current) use of insulin; Z79.891 Long term (current) use of opiate analgesic; Z82.49 Family history of ischemic heart disease and other diseases of the circulatory system; Z83.3 Family history of diabetes mellitus; Z82.5 Family history of asthma and other chronic lower respiratory diseases; Z98.41 Cataract extraction status, right eye; Z98.42 Cataract extraction status, left eye; Z90.49 Acquired absence of other specified parts of digestive tract; Z87.19 Personal history of other diseases of the digestive system; Z95.5 Presence of coronary angioplasty implant and graft
CPT/HCPCS: 36415; 71045; 71046; 74176; 76705; 80048; 80053; 80074; 81001; 82271; 83036; 83605; 83690; 83735; 85025; 85027; 85610; 85730; 86301; 86707; 87040; 87077; 87086; 87186; 87340; 87350; 87502; 87517; 88304; 93005; 94640; 94760; 96361; 96365; 96375; 99285

== ENCOUNTER → 2018-06-22 | Outpatient (CLI) | payer MEDICARE, BC ==
[2018-06-22 12:26] LABS: Basophils % (A) 0 %; Eosinophils # (A) 0.2 k/uL (0-0.7); Eosinophils % (A) 2 %; HCT 30.8 % (39.0-53.0); HGB 10.1 gm/dL (13.0-17.5); Lymphocytes # (A) 2.1 k/uL (1.0-4.8); Lymphocytes % (A) 25 %; MCH 31.3 pg (25.0-35.0); MCHC 32.9 g/dL (31.0-37.0); MCV 95.3 fL (80.0-100.0); Monocytes # (A) 0.5 k/uL (0-1.0); Monocytes % (A) 6 %; Neutrophils # (A) 5.4 k/uL (1.3-7.7); Neutrophils % (A) 65 %; Platelet Count 248 k/uL (150-450); RBC 3.23 m/uL (4.30-5.90); RDW 13.9 % (11.5-15.5); WBC 8.3 k/uL (3.8-10.6)
[2018-06-22 16:18] LABS: Albumin 4.4 g/dL (3.80-4.90); Albumin/Globulin Ratio 1.83 (1.20-2.10); Anion Gap 8.2 mmol/L (4.00-12.00); Calcium 9.8 mg/dL (8.7-10.3); Carbon Dioxide 28.8 mmol/L (21.6-31.8); Globulin 2.4 g/dL (2.1-3.7); Potassium 4.8 mmol/L (3.5-5.5); Total Bilirubin 0.2 mg/dL (0.3-1.2); Total Protein 6.8 g/dL (6.2-8.2)
== END | disposition home or self-care (01) ==
LOC: LABWHC1 09:48
PROVIDERS: ATTEND Thoracic Surgery (Cardiothoracic Vascular Surgery)
DX: E63.8 Other specified nutritional deficiencies (principal); E13.621 Other specified diabetes mellitus with foot ulcer
CPT/HCPCS: 36415; 80053; 83036; 84134; 85025

== ENCOUNTER 2018-10-21 19:20 | Emergency (ER) | payer MEDICARE, BC ==
--- NOTE | 2018-10-21 19:29 | ED ---
Fall HPI - General Stated Complaint: Fall Time Seen by Provider: 10/21/18 19:27 Source: RN notes reviewed, old records reviewed - History of Present Illness Initial Comments: This is a 67-year-old male the ER after trip and fall. Patient was unable to get up on her own power. Patient does have difficulty and does walk with cane. Patient states blood sugars been elevated for a few days. Does admit to some weakness. He complains of knee pain and leg pain. 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: yes, by family Place Fall Occurred: home Loss of Consciousness: none Prolonged Down Time?: no Symptoms Prior to Fall: none Location - Extremities: Right: Knee, Leg, Ankle Severity: mild Severity scale (1-10): 2 Context: tripped/slipped Associated Symptoms: denies - Related Data Home Medications Medication Instructions Recorded Confirmed Allopurinol [Zyloprim] 100 mg PO DAILY 04/22/15 10/21/18 Cholecalciferol [Vitamin D3] 5,000 unit PO DAILY 04/22/15 10/21/18 Gabapentin [Neurontin] 300 mg PO TID 04/22/15 10/21/18 Magnesium Oxide [Mag-Ox] 250 mg PO DAILY 04/22/15 10/21/18 Fish Oil/Dha/Epa [Fish Oil 1,200 1 cap PO DAILY 09/06/15 10/21/18 mg Fish Oil] Simvastatin [Zocor] 40 mg PO HS 09/06/15 10/21/18 Sodium Polystyrene Sulfon/Sorb 7.5 gm PO DAILY 09/06/15 10/21/18 [Kionex 15 gm/60 ml Suspension] Ferrous Sulfate [Iron (65 MG 325 mg PO DAILY 10/23/15 10/21/18 Elemental)] hydrALAZINE HCL [Apresoline] 100 mg PO TID 05/04/16 10/21/18 Aspirin 325 mg PO DAILY 08/27/17 10/21/18 amLODIPine [Norvasc] 5 mg PO BID 08/27/17 10/21/18 Insulin Glargine [Lantus] 30 unit SQ DAILY 09/14/18 10/21/18 Amoxic-Pot Clav 875-125Mg 1 tab PO BID 10/21/18 10/21/18 [Augmentin 875-125] Furosemide [Lasix] 40 mg PO BID 10/21/18 10/21/18 Previous Rx's Medication Instructions Recorded HYDROcodone/APAP 10-325MG [[place] 1 tab PO TID PRN #20 tab 09/06/17 10-325] Allergies Allergy/AdvReac Type Severity Reaction Status Date / Time aspirin [From Anacin] Allergy Rash/Hives Verified 10/21/18 20:13 erythromycin base Allergy Unknown Verified 10/21/18 20:13 sulfamethoxazole AdvReac affects Verified 10/21/18 20:13 [From Bactrim] kidneys trimethoprim [From Bactrim] AdvReac Unknown Verified 10/21/18 20:13 Review of Systems ROS Statement: Those systems with pertinent positive or pertinent negative responses have been documented in the HPI. ROS Other: All systems not noted in ROS Statement are negative. Past Medical History Past Medical History: Blood Disorder, Heart Failure, COPD, Diabetes Mellitus, Hyperlipidemia, Hypertension, Osteoarthritis (OA), Renal Disease, Skin Disorder, Sleep Apnea/CPAP/BIPAP Additional Past Medical History / Comment(s): Hx. GOUT, H PYLORI, ANEMIA, umbilical HERNIA, nonhealing ulcer. ANEMIA. 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 Source:: LEG Past Surgical History: Appendectomy, Cholecystectomy, Heart Catheterization With Stent Additional Past Surgical History / Comment(s): CATARACTS DANIELLE, HAD TESTICULAR SX FOR VARICOSED VEINS, PICC LINE SINCE REMOVED Past Anesthesia/Blood Transfusion Reactions: No Reported Reaction Date of Last Stent Placement:: 10/2015 Smoking Status: Former smoker - Past Family History Father Family Medical History: COPD Additional Family Medical History / Comment(s): AT AGE 64- EMPHYSEMA(SMOKER) Mother Family Medical History: Diabetes Mellitus, Hypertension Additional Family Medical History / Comment(s): LUPUS, LEG AMPUTATED. MOM IN HER 60'S General Exam General appearance: alert, in no apparent distress Head exam: Present: atraumatic, normocephalic, normal inspection Eye exam: Present: normal appearance, PERRL, EOMI. Absent: scleral icterus, c onjunctival injection, periorbital swelling ENT exam: Present: normal exam, mucous membranes moist Neck exam: Present: normal inspection. Absent: tenderness, meningismus, lymphadenopathy Respiratory exam: Present: normal lung sounds bilaterally. Absent: respiratory distress, wheezes, rales, rhonchi, stridor Cardiovascular Exam: Present: regular rate, normal rhythm, normal heart sounds. Absent: systolic murmur, diastolic murmur, rubs, gallop, clicks GI/Abdominal exam: Present: soft, normal bowel sounds. Absent: distended, tenderness, guarding, rebound, rigid Extremities exam: Present: normal inspection, full ROM, normal capillary refill. Absent: tenderness, pedal edema, joint swelling, calf tenderness Back exam: Present: normal inspection Neurological exam: Present: alert, oriented X3, CN II-XII intact Psychiatric exam: Present: normal affect, normal mood Skin exam: Present: warm, dry, intact, normal color. Absent: rash Course Vital Signs 10/21/18 19:27 Temperature 97.9 F Pulse Rate 71 Respiratory 18 Rate Blood Pressure 156/89 O2 Sat by Pulse 98 Oximetry - Reevaluation(s) Reevaluation #1: 10/21/18 22:04 Medical record reviewed Reevaluation #2: 10/21/18 22:04 symptoms are significantly improved Medical Decision Making - Medical Decision Making 67 male the ER for evaluation of elevated blood sugar. Fall. No injury from fall noted. Patient's blood sugar is improved here with IV fluids. Patient feels better able to ambulate and can be discharged home - Lab Data Result diagrams: 10/21/18 19:21 10/21/18 19:21 Lab Results 10/21/18 10/21/18 10/21/18 Range/Units 19:21 19:21 19:21 WBC 10.4 (3.8-10.6) k/uL RBC 3.50 L (4.30-5.90) m/uL Hgb 10.7 L (13.0-17.5) gm/dL Hct 32.4 L (39.0-53.0) % MCV 92.7 (80.0-100.0) fL MCH 30.7 (25.0-35.0) pg MCHC 33.2 (31.0-37.0) g/dL RDW 14.4 (11.5-15.5) % Plt Count 266 (150-450) k/uL Neutrophils % 72 % Lymphocytes % 18 % Monocytes % 5 % Eosinophils % 2 % Basophils % 1 % Neutrophils # 7.5 (1.3-7.7) k/uL Lymphocytes # 1.9 (1.0-4.8) k/uL Monocytes # 0.5 (0-1.0) k/uL Eosinophils # 0.3 (0-0.7) k/uL Basophils # 0.1 (0-0.2) k/uL PT 9.7 (9.0-12.0) sec INR 0.9 (<1.2) APTT 23.6 (22.0-30.0) sec VBG pH (7.31-7.41) VBG pCO2 (37-51) mmHg VBG HCO3 (24-28) mmol/L Sodium 138 (137-145) mmol/L Potassium 4.7 (3.5-5.1) mmol/L Chloride 99 (98-107) mmol/L Carbon Dioxide 28 (22-30) mmol/L Anion Gap 11 mmol/L BUN 62 H (9-20) mg/dL Creatinine 2.08 H (0.66-1.25) mg/dL Est GFR (CKD-EPI)AfAm 37 (>60 ml/min/1.73 sqM) Est GFR (CKD-EPI)NonAf 32 (>60 ml/min/1.73 sqM) Glucose 282 H (74-99) mg/dL POC Glucose (mg/dL) (75-99) mg/dL POC Glu Delivery Truck Driver Heavy ID Calcium 10.1 (8.4-10.2) mg/dL Phosphorus 4.1 (2.5-4.5) mg/dL Magnesium 2.0 (1.6-2.3) mg/dL Total Bilirubin 0.6 (0.2-1.3) mg/dL AST 25 (17-59) U/L ALT 26 (21-72) U/L Alkaline Phosphatase 121 (38-126) U/L Troponin I (0.000-0.034) ng/mL Total Protein 7.7 (6.3-8.2) g/dL Albumin 4.6 (3.5-5.0) g/dL Urine Color Urine Appearance (Clear) Urine pH (5.0-8.0) Ur Specific Council (1.001-1.035) Urine Protein (Negative) Urine Glucose (UA) (Negative) Urine Ketones (Negative) Urine Blood (Negative) Urine Nitrite (Negative) Urine Bilirubin (Negative) Urine Urobilinogen (<2.0) mg/dL Ur Leukocyte Esterase (Negative) Urine RBC (0-5) /hpf Urine WBC (0-5) /hpf Urine Mucus (None) /hpf Acetone, Qual Negative (Negative) 10/21/18 10/21/18 10/21/18 Range/Units 19:21 19:32 19:50 WBC (3.8-10.6) k/uL RBC (4.30-5.90) m/uL Hgb (13.0-17.5) gm/dL Hct (39.0-53.0) % MCV (80.0-100.0) fL MCH (25.0-35.0) pg MCHC (31.0-37.0) g/dL RDW (11.5-15.5) % Plt Count (150-450) k/uL Neutrophils % % Lymphocytes % % Monocytes % % Eosinophils % % Basophils % % Neutrophils # (1.3-7.7) k/uL Lymphocytes # (1.0-4.8) k/uL Monocytes # (0-1.0) k/uL Eosinophils # (0-0.7) k/uL Basophils # (0-0.2) k/uL PT (9.0-12.0) sec INR (<1.2) APTT (22.0-30.0) sec VBG pH 7.44 H (7.31-7.41) VBG pCO2 41 (37-51) mmHg VBG HCO3 28 (24-28) mmol/L Sodium (137-145) mmol/L Potassium (3.5-5.1) mmol/L Chloride (98-107) mmol/L Carbon Dioxide (22-30) mmol/L Anion Gap mmol/L BUN (9-20) mg/dL Creatinine (0.66-1.25) mg/dL Est GFR (CKD-EPI)AfAm (>60 ml/min/1.73 sqM) Est GFR (CKD-EPI)NonAf (>60 ml/min/1.73 sqM) Glucose (74-99) mg/dL POC Glucose (mg/dL) 295 H (75-99) mg/dL POC Glu Delivery Truck Driver Heavy ID Destiney Overton A Calcium (8.4-10.2) mg/dL Phosphorus (2.5-4.5) mg/dL Magnesium (1.6-2.3) mg/dL Total Bilirubin (0.2-1.3) mg/dL AST (17-59) U/L ALT (21-72) U/L Alkaline Phosphatase (38-126) U/L Troponin I <0.012 (0.000-0.034) ng/mL Total Protein (6.3-8.2) g/dL Albumin (3.5-5.0) g/dL Urine Color Urine Appearance (Clear) Urine pH (5.0-8.0) Ur Specific Council (1.001-1.035) Urine Protein (Negative) Urine Glucose (UA) (Negative) Urine Ketones (Negative) Urine Blood (Negative) Urine Nitrite (Negative) Urine Bilirubin (Negative) Urine Urobilinogen (<2.0) mg/dL Ur Leukocyte Esterase (Negative) Urine RBC (0-5) /hpf Urine WBC (0-5) /hpf Urine Mucus (None) /hpf Acetone, Qual (Negative) 10/21/18 Range/Units 20:05 WBC (3.8-10.6) k/uL RBC (4.30-5.90) m/uL Hgb (13.0-17.5) gm/dL Hct (39.0-53.0) % MCV (80.0-100.0) fL MCH (25.0-35.0) pg MCHC (31.0-37.0) g/dL RDW (11.5-15.5) % Plt Count (150-450) k/uL Neutrophils % % Lymphocytes % % Monocytes % % Eosinophils % % Basophils % % Neutrophils # (1.3-7.7) k/uL Lymphocytes # (1.0-4.8) k/uL Monocytes # (0-1.0) k/uL Eosinophils # (0-0.7) k/uL Basophils # (0-0.2) k/uL PT (9.0-12.0) sec INR (<1.2) APTT (22.0-30.0) sec VBG pH (7.31-7.41) VBG pCO2 (37-51) mmHg VBG HCO3 (24-28) mmol/L Sodium (137-145) mmol/L Potassium (3.5-5.1) mmol/L Chloride (98-107) mmol/L Carbon Dioxide (22-30) mmol/L Anion Gap mmol/L BUN (9-20) mg/dL Creatinine (0.66-1.25) mg/dL Est GFR (CKD-EPI)AfAm (>60 ml/min/1.73 sqM) Est GFR (CKD-EPI)NonAf (>60 ml/min/1.73 sqM) Glucose (74-99) mg/dL POC Glucose (mg/dL) (75-99) mg/dL POC Glu Delivery Truck Driver Heavy ID Calcium (8.4-10.2) mg/dL Phosphorus (2.5-4.5) mg/dL Magnesium (1.6-2.3) mg/dL Total Bilirubin (0.2-1.3) mg/dL AST (17-59) U/L ALT (21-72) U/L Alkaline Phosphatase (38-126) U/L Troponin I (0.000-0.034) ng/mL Total Protein (6.3-8.2) g/dL Albumin (3.5-5.0) g/dL Urine Color Light Yellow Urine Appearance Clear (Clear) Urine pH 6.5 (5.0-8.0) Ur Specific Council 1.010 (1.001-1.035) Urine Protein 1+ H (Negative) Urine Glucose (UA) 4+ H (Negative) Urine Ketones Negative (Negative) Urine Blood Trace H (Negative) Urine Nitrite Negative (Negative) Urine Bilirubin Negative (Negative) Urine Urobilinogen <2.0 (<2.0) mg/dL Ur Leukocyte Esterase Negative (Negative) Urine RBC 6 H (0-5) /hpf Urine WBC <1 (0-5) /hpf Urine Mucus Rare H (None) /hpf Acetone, Qual (Negative) - Radiology Data Radiology results: report reviewed (Chest x-ray x-ray knee and ankle negative for traumatic injury), image reviewed Disposition Clinical Impression: Fall, Acute on chronic renal failure, Weakness, Hyperglycemia Disposition: HOME SELF-CARE Condition: Good Instructions (If sedation given, give patient instructions): Diabetic Hyperglycemia (ED) Is patient prescribed a controlled substance at d/c from ED?: No Referrals: Papo Ford MD [Primary Care Provider] - 1-2 days
[2018-10-21] MEDS ORDERED: SODIUM CHLORIDE 0.9% 500 ML 500 ML IV STA (19:32)
[2018-10-21] MEDS ORDERED: SODIUM CHLORIDE 0.9% 1,000 ML IV STA ×3 (19:32→21:02)
[2018-10-21 19:35] VITALS: BP 156/89; PULSE 71; RESP 18; TEMP 97.9
[2018-10-21 19:47] LABS: Basophils # (A) 0.1 k/uL (0-0.2); Basophils % (A) 1 %; Eosinophils # (A) 0.3 k/uL (0-0.7); Eosinophils % (A) 2 %; HCT 32.4 % (39.0-53.0); HGB 10.7 gm/dL (13.0-17.5); Lymphocytes # (A) 1.9 k/uL (1.0-4.8); Lymphocytes % (A) 18 %; MCH 30.7 pg (25.0-35.0); MCHC 33.2 g/dL (31.0-37.0); MCV 92.7 fL (80.0-100.0); Mean Platelet Volume 7.2; Monocytes # (A) 0.5 k/uL (0-1.0); Monocytes % (A) 5 %; Neutrophils # (A) 7.5 k/uL (1.3-7.7); Neutrophils % (A) 72 %; Platelet Count 266 k/uL (150-450); RDW 14.4 % (11.5-15.5); WBC 10.4 k/uL (3.8-10.6)
[2018-10-21 19:52] LABS: Glucose,Whole Blood 295 mg/dL (75-99)
[2018-10-21 19:55] LABS: VBG PH 7.44 (7.31-7.41)
[2018-10-21 19:56] LABS: ALT 26 U/L (21-72); AST 25 U/L (17-59); Albumin 4.6 g/dL (3.5-5.0); Alkaline Phosphatase 121 U/L (38-126); Anion Gap 11 mmol/L; Blood Urea Nitrogen 62 mg/dL (9-20); Calcium 10.1 mg/dL (8.4-10.2); Carbon Dioxide 28 mmol/L (22-30); Chloride 99 mmol/L (98-107); Glucose 282 mg/dL (74-99); Phosphorus 4.1 mg/dL (2.5-4.5); Potassium 4.7 mmol/L (3.5-5.1); Sodium 138 mmol/L (137-145); Total Bilirubin 0.6 mg/dL (0.2-1.3); Total Protein 7.7 g/dL (6.3-8.2)
[2018-10-21 20:03] LABS: INR 0.9 (<1.2)
[2018-10-21 20:04] LABS: Partial Thromboplastin Time 23.6 sec (22.0-30.0); Prothrombin Time 9.7 sec (9.0-12.0)
[2018-10-21 20:20] LABS: Appearance,Urine Clear (Clear); Bilirubin,Urine Negative (Negative); Blood,Urine Trace (Negative); Color,Urine Light Yellow; Glucose,Urine (UA) 4+ (Negative); Ketones,Urine Negative (Negative); Leukocyte Esterase,Urine Negative (Negative); Mucus,Urine Rare /hpf; Nitrite,Urine Negative (Negative); PH, Urine 6.5 (5.0-8.0); Protein,Urine 1+ (Negative); RBC,Urine 6 /hpf (0-5); Urobilinogen,Urine <2.0 mg/dL (<2.0); WBC,Urine <1 /hpf (0-5)
--- NOTE | 2018-10-21 20:29 | XR ---
EXAMINATION TYPE: XR chest 2V DATE OF EXAM: 10/21/2018 COMPARISON: September 03, 2017 HISTORY: Shortness of breath TECHNIQUE: Frontal and lateral views of the chest are obtained. FINDINGS: Scattered senescent parenchymal changes noted. Hyperinflation compatible with COPD. No evidence for infiltrate. No evidence for atelectasis. Heart size is stable. Mediastinal structures are stable and grossly unremarkable. No evidence for hilar prominence. Degenerative changes dorsal spine. IMPRESSION: 1. No evidence for acute pulmonary disease.
--- NOTE | 2018-10-21 20:35 | XR ---
EXAMINATION TYPE: XR knee complete RT DATE OF EXAM: 10/21/2018 CLINICAL HISTORY: pain TECHNIQUE: Three views of the right knee are obtained. COMPARISON: None. FINDINGS: There is no acute fracture/dislocation. Moderate degenerative joint space narrowing noted. The overlying soft tissue appears unremarkable. IMPRESSION: There is no acute fracture or dislocation. ICD 10 NO FRACTURE, INITIAL EVALUATION
--- NOTE | 2018-10-21 20:36 | XR ---
EXAMINATION TYPE: XR ankle complete RT DATE OF EXAM: 10/21/2018 COMPARISON: NONE HISTORY: Pain TECHNIQUE: Frontal, lateral and oblique images of the right ankle are obtained. COMPARISON: None. FINDINGS: There is no acute fracture/dislocation evident. Moderate degenerative joint space narrowin g. The overlying soft tissue appears unremarkable. IMPRESSION: There is no acute fracture or dislocation seen.
== END 2018-10-21 23:33 | disposition home or self-care (01) ==
LOC: EC 19:20
DX: E11.65 Type 2 diabetes mellitus with hyperglycemia (principal); N18.9 Chronic kidney disease, unspecified; N17.9 Acute kidney failure, unspecified; M25.561 Pain in right knee; M79.604 Pain in right leg; M25.571 Pain in right ankle and joints of right foot; R26.2 Difficulty in walking, not elsewhere classified; E11.22 Type 2 diabetes mellitus with diabetic chronic kidney disease; I13.0 Hypertensive heart and chronic kidney disease with heart failure and stage 1 through stage 4 chronic kidney disease, or unspecified chronic kidney disease; E11.622 Type 2 diabetes mellitus with other skin ulcer; L98.499 Non-pressure chronic ulcer of skin of other sites with unspecified severity; I50.9 Heart failure, unspecified; E78.5 Hyperlipidemia, unspecified; M19.90 Unspecified osteoarthritis, unspecified site; M10.9 Gout, unspecified; D63.1 Anemia in chronic kidney disease; G47.30 Sleep apnea, unspecified; Z87.891 Personal history of nicotine dependence; Z88.1 Allergy status to other antibiotic agents; Z88.2 Allergy status to sulfonamides; Z88.6 Allergy status to analgesic agent; Z79.4 Long term (current) use of insulin; Z79.82 Long term (current) use of aspirin; Z79.899 Other long term (current) drug therapy; Z86.14 Personal history of Methicillin resistant Staphylococcus aureus infection; Z95.5 Presence of coronary angioplasty implant and graft; Z99.89 Dependence on other enabling machines and devices; Z83.3 Family history of diabetes mellitus; W01.0XXA Fall on same level from slipping, tripping and stumbling without subsequent striking against object, initial encounter; Y92.009 Unspecified place in unspecified non-institutional (private) residence as the place of occurrence of the external cause
CPT/HCPCS: 36415; 71046; 80053; 81001; 82009; 82803; 83735; 84100; 84484; 85025; 85610; 85730; 87077; 87086; 87186; 93005; 96360; 96361; 99284

== ENCOUNTER 2018-12-16 05:07 | Inpatient (IN) | payer MEDICARE, BC ==
[2018-12-16] MEDS ORDERED: ACETAMINOPHEN TAB 325 MG TAB PO STA (05:24)
[2018-12-16] MEDS: SODIUM CHLORIDE 0.9% 500 ML 500 ML IV SCH ×6 (05:26→11:50)
--- NOTE | 2018-12-16 05:29 | ED ---
General Adult HPI - General Chief complaint: Shortness of Breath Stated complaint: Diff Breathing Time Seen by Provider: 12/16/18 05:11 Source: EMS Mode of arrival: EMS Limitations: altered mental status - History of Present Illness Initial comments: This patient is 60-year-old man brought by ambulance to be evaluated. When I interview the patient, he does appear delirious. He is not able to give much history. He states he is not sure why he is here. He believes his called the ambulance. He is denying pain. He is denying dyspnea. He does state that he feels sick. - Related Data Home Medications Medication Instructions Recorded Confirmed Allopurinol [Zyloprim] 100 mg PO DAILY 04/22/15 12/13/18 Cholecalciferol [Vitamin D3 (25 5,000 unit PO DAILY 04/22/15 12/13/18 Mcg = 1000 Iu)] Gabapentin [Neurontin] 300 mg PO TID 04/22/15 12/13/18 Magnesium Oxide [Mag-Ox] 250 mg PO DAILY 04/22/15 12/13/18 Fish Oil/Dha/Epa [Fish Oil 1,200 1 cap PO DAILY 09/06/15 12/13/18 mg Fish Oil] Simvastatin [Zocor] 40 mg PO HS 09/06/15 12/13/18 Sodium Polystyrene Sulfon/Sorb 7.5 gm PO DAILY 09/06/15 12/13/18 [Kionex 15 gm/60 ml Suspension] Ferrous Sulfate [Iron (65 MG 325 mg PO DAILY 10/23/15 11/16/18 Elemental)] hydrALAZINE HCL [Apresoline] 100 mg PO TID 05/04/16 12/13/18 Aspirin 325 mg PO DAILY 08/27/17 12/13/18 amLODIPine [Norvasc] 5 mg PO BID 08/27/17 12/13/18 Insulin Glargine [Lantus] 30 unit SQ DAILY 09/14/18 12/13/18 Furosemide [Lasix] 40 mg PO BID 10/21/18 12/13/18 Ferrous Sulfate [Iron (65 MG 65 mg PO DAILY 12/13/18 12/13/18 Elemental)] Sodium Polystyrene Sulfon/Sorb 15 gm PO DAILY 12/13/18 12/13/18 [Kionex 15 gm/60 ml Suspension] Previous Rx's Medication Instructions Recorded HYDROcodone/APAP 10-325MG [[place] 1 tab PO TID PRN #20 tab 09/06/17 10-325] Allergies Allergy/AdvReac Type Severity Reaction Status Date / Time aspirin [From Anacin] Allergy Rash/Hives Verified 12/16/18 05:13 erythromycin base Allergy Unknown Verified 12/16/18 05:13 sulfamethoxazole AdvReac affects Verified 12/16/18 05:13 [From Bactrim] kidneys trimethoprim [From Bactrim] AdvReac Unknown Verified 12/16/18 05:13 Review of Systems ROS Statement: Those systems with pertinent positive or pertinent negative responses have been documented in the HPI. ROS Other: All systems not noted in ROS Statement are negative. Limitations: ROS unobtainable due to patients medical condition (Appears delirious) Cardiovascular: Denies: chest pain Gastrointestinal: Denies: abdominal pain Neurological: Denies: headache Past Medical History Past Medical History: Blood Disorder, Heart Failure, COPD, Diabetes Mellitus, Hyperlipidemia, Hypertension, Osteoarthritis (OA), Renal Disease, Skin Disorder, Sleep Apnea/CPAP/BIPAP Additional Past Medical History / Comment(s): Hx. GOUT, H PYLORI, ANEMIA, umbilical HERNIA, nonhealing ulcer. ANEMIA. 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 Source:: LEG Past Surgical History: Appendectomy, Cholecystectomy, Heart Catheterization With Stent Additional Past Surgical History / Comment(s): CATARACTS DANIELLE, HAD TESTICULAR SX FOR VARICOSED VEINS, PICC LINE SINCE REMOVED Past Anesthesia/Blood Transfusion Reactions: No Reported Reaction Date of Last Stent Placement:: 10/2015 Past Psychological History: No Psychological Hx Reported Smoking Status: Former smoker Past Alcohol Use History: None Reported Past Drug Use History: None Reported - Past Family History Father Family Medical History: COPD Additional Family Medical History / Comment(s): AT AGE 64- EMPHYSEMA(SMOKER) Mother Family Medical History: Diabetes Mellitus, Hypertension Additional Family Medical History / Comment(s): LUPUS, LEG AMPUTATED. MOM IN HER 60'S General Exam Limitations: no limitations General appearance: alert Head exam: Present: atraumatic, normocephalic Eye exam: Present: normal appearance, PERRL, EOMI. Absent: scleral icterus, conjunctival injection ENT exam: Present: mucous membranes dry Neck exam: Present: normal inspection, full ROM. Absent: meningismus Respiratory exam: Present: respiratory distress (Mild tachypnea), rhonchi. Absent: wheezes, rales, stridor Cardiovascular Exam: Present: normal rhythm, tachycardia, normal heart sounds, systolic murmur (Grade 2/6 systolic murmur). Absent: diastolic murmur, rubs, gallop GI/Abdominal exam: Present: soft, hernia (Moderate sized umbilical hernia which is not tender). Absent: distended, tenderness, guarding, rebound, rigid, mass Extremities exam: Present: normal capillary refill Neurological exam: Present: alert. Absent: oriented X3, motor sensory deficit Skin exam: Present: warm, dry, intact, normal color, other (Left leg venous stasis ulcers, currently no evidence of secondary infection. No warmth. No erythema no drainage.). Absent: rash Course Vital Signs 12/16/18 12/16/18 12/16/18 05:08 05:22 05:45 Temperature 103.1 F H Pulse Rate 111 H 109 H 101 H Respiratory 28 H 28 H 22 Rate Blood Pressure 187/90 131/66 122/60 O2 Sat by Pulse 96 99 97 Oximetry 12/16/18 12/16/18 12/16/18 06:00 06:15 06:30 Temperature 100.6 F H Pulse Rate 105 H 102 H 99 Respiratory 17 16 17 Rate Blood Pressure 110/37 103/41 102/37 O2 Sat by Pulse 98 98 98 Oximetry 12/16/18 07:10 Temperature Pulse Rate 93 Respiratory 18 Rate Blood Pressure 107/55 O2 Sat by Pulse 98 Oximetry EKG Findings - EKG Comments: EKG Findings:: Possible old septal infarct. - EKG Results: EKG: interpreted by ERMD, sinus rhythm, normal axis, normal QRS, normal ST/T EKG shows: tachycardia (Rate 110 bpm) Medical Decision Making - Medical Decision Making The patient's had subsequently arrived and stated that he was having generalized weakness and fatigue and she therefore phoned the ambulance. She does relate that the patient had recently had "bladder infection" and she does not know if this fully went away. She does report that she changes the dressings to his left leg daily. - Lab Data Result diagrams: 12/16/18 05:18 12/16/18 05:18 Lab Results 12/16/18 12/16/18 12/16/18 Range/Units 05:18 05:18 05:18 WBC 23.5 H (3.8-10.6) k/uL RBC 3.69 L (4.30-5.90) m/uL Hgb 11.0 L (13.0-17.5) gm/dL Hct 33.8 L (39.0-53.0) % MCV 91.6 (80.0-100.0) fL MCH 29.8 (25.0-35.0) pg MCHC 32.5 (31.0-37.0) g/dL RDW 14.5 (11.5-15.5) % Plt Count 251 (150-450) k/uL Neutrophils % 89 % Lymphocytes % 5 % Monocytes % 4 % Eosinophils % 0 % Basophils % 0 % Neutrophils # 21.0 H (1.3-7.7) k/uL Lymphocytes # 1.3 (1.0-4.8) k/uL Monocytes # 1.0 (0-1.0) k/uL Eosinophils # 0.1 (0-0.7) k/uL Basophils # 0.0 (0-0.2) k/uL PT (9.0-12.0) sec INR (<1.2) APTT (22.0-30.0) sec Sodium 140 (137-145) mmol/L Potassium 3.9 (3.5-5.1) mmol/L Chloride 100 (98-107) mmol/L Carbon Dioxide 28 (22-30) mmol/L Anion Gap 12 mmol/L BUN 44 H (9-20) mg/dL Creatinine 2.01 H (0.66-1.25) mg/dL Est GFR (CKD-EPI)AfAm 38 (>60 ml/min/1.73 sqM) Est GFR (CKD-EPI)NonAf 33 (>60 ml/min/1.73 sqM) Glucose 251 H (74-99) mg/dL Plasma Lactic Acid Anthony 2.3 H* (0.7-2.0) mmol/L Calcium 9.6 (8.4-10.2) mg/dL Total Bilirubin 0.4 (0.2-1.3) mg/dL AST 26 (17-59) U/L ALT 15 L (21-72) U/L Alkaline Phosphatase 110 (38-126) U/L Troponin I (0.000-0.034) ng/mL Total Protein 7.3 (6.3-8.2) g/dL Albumin 4.4 (3.5-5.0) g/dL 12/16/18 12/16/18 Range/Units 05:18 05:18 WBC (3.8-10.6) k/uL RBC (4.30-5.90) m/uL Hgb (13.0-17.5) gm/dL Hct (39.0-53.0) % MCV (80.0-100.0) fL MCH (25.0-35.0) pg MCHC (31.0-37.0) g/dL RDW (11.5-15.5) % Plt Count (150-450) k/uL Neutrophils % % Lymphocytes % % Monocytes % % Eosinophils % % Basophils % % Neutrophils # (1.3-7.7) k/uL Lymphocytes # (1.0-4.8) k/uL Monocytes # (0-1.0) k/uL Eosinophils # (0-0.7) k/uL Basophils # (0-0.2) k/uL PT 9.8 (9.0-12.0) sec INR 0.9 (<1.2) APTT 17.8 L (22.0-30.0) sec Sodium (137-145) mmol/L Potassium (3.5-5.1) mmol/L Chloride (98-107) mmol/L Carbon Dioxide (22-30) mmol/L Anion Gap mmol/L BUN (9-20) mg/dL Creatinine (0.66-1.25) mg/dL Est GFR (CKD-EPI)AfAm (>60 ml/min/1.73 sqM) Est GFR (CKD-EPI)NonAf (>60 ml/min/1.73 sqM) Glucose (74-99) mg/dL Plasma Lactic Acid Anthony (0.7-2.0) mmol/L Calcium (8.4-10.2) mg/dL Total Bilirubin (0.2-1.3) mg/dL AST (17-59) U/L ALT (21-72) U/L Alkaline Phosphatase (38-126) U/L Troponin I 0.014 (0.000-0.034) ng/mL Total Protein (6.3-8.2) g/dL Albumin (3.5-5.0) g/dL Disposition Clinical Impression: Venous stasis ulcer of left lower leg with edema of left lower leg, Sepsis Disposition: ADMITTED IP TO THIS HOSP Condition: Poor
[2018-12-16 05:45] LABS: Basophils % (A) 0 %; Eosinophils # (A) 0.1 k/uL (0-0.7); Eosinophils % (A) 0 %; HCT 33.8 % (39.0-53.0); Lymphocytes # (A) 1.3 k/uL (1.0-4.8); Lymphocytes % (A) 5 %; MCH 29.8 pg (25.0-35.0); MCHC 32.5 g/dL (31.0-37.0); MCV 91.6 fL (80.0-100.0); Mean Platelet Volume 7.3; Monocytes % (A) 4 %; Neutrophils % (A) 89 %; Platelet Count 251 k/uL (150-450); RBC 3.69 m/uL (4.30-5.90); RDW 14.5 % (11.5-15.5); WBC 23.5 k/uL (3.8-10.6)
--- NOTE | 2018-12-16 05:52 | XR ---
EXAM: XR Chest, 1 View CLINICAL HISTORY: Fever TECHNIQUE: Frontal view of the chest. COMPARISON: Chest x-ray dated 08/30/2017 FINDINGS: Lungs: Low lung volumes. Pleural space: Unremarkable. No pneumothorax. Heart: Heart is enlarged. Mediastinum: Unremarkable. Bones/joints: Unremarkable. IMPRESSION: No acute findings.
[2018-12-16 06:00] LABS: Albumin 4.4 g/dL (3.5-5.0); Calcium 9.6 mg/dL (8.4-10.2); Potassium 3.9 mmol/L (3.5-5.1); Total Bilirubin 0.4 mg/dL (0.2-1.3); Total Protein 7.3 g/dL (6.3-8.2)
[2018-12-16 06:01] LABS: INR 0.9 (<1.2); Prothrombin Time 9.8 sec (9.0-12.0)
[2018-12-16 06:14] LABS: Partial Thromboplastin Time 17.8 sec (22.0-30.0)
[2018-12-16] MEDS ORDERED: NALOXONE 0.4 MG/ML 1 ML VIAL IV PRN (07:04)
[2018-12-16] MEDS ORDERED: ACETAMINOPHEN TAB 325 MG TAB PO PRN (07:04)
[2018-12-16] MEDS ORDERED: HYDROcodone/APAP 10-325MG 1 EACH TAB PO PRN (07:06)
[2018-12-16] MEDS ORDERED: VANCOMYCIN IV PER PHARMACY 1 EACH MISC MISCELLANE PRN (07:51)
[2018-12-16] MEDS ORDERED: PIPERACILLIN-TAZOBACTAM 3.375 GM in SODIUM CHLORIDE 0.9% 100 ML IVPB STA (07:51)
[2018-12-16] MEDS ORDERED: LEVOFLOXACIN 750MG-D5W PMX 750 MG in DEXTROSE/WATER 1 150ML.BAG IVPB STA (07:51)
--- NOTE | 2018-12-16 08:07 | CT ---
EXAMINATION TYPE: CT brain wo con DATE OF EXAM: 12/16/2018 COMPARISON: 05/04/2016 HISTORY: 68-year-old male confusion, altered mental status TECHNIQUE: Examination was done in axial plane without intravenous contrast. Coronal and sagittal r econstructions performed. CT DLP: 1142.4 mGycm Automated exposure control for dose reduction was used. FINDINGS: There is no evidence of acute intracranial hemorrhage, acute ischemic changes, mass, mass-effect, or extra-axial fluid collection. There is no effacement of cerebral sulci or basal subarachnoid cister ns. There is no midline shift. He-white matter distinction is preserved. Mild generalized supratentorial volume loss with secondary mild prominence to the ventricular system. Paranasal sinuses and mastoid air cells well pneumatized. Orbits and globes are intact. IMPRESSION: Stable mild cerebral atrophy. No acute intracranial abnormality seen.
[2018-12-16 08:31] LABS: Appearance,Urine Clear (Clear); Bilirubin,Urine Negative (Negative); Blood,Urine Negative (Negative); Color,Urine Yellow; Glucose,Urine (UA) 1+ (Negative); Ketones,Urine Negative (Negative); Leukocyte Esterase,Urine Negative (Negative); Mucus,Urine Rare /hpf; Nitrite,Urine Negative (Negative); PH, Urine 5.5 (5.0-8.0); Protein,Urine 2+ (Negative); RBC,Urine 1 /hpf (0-5); Squamous Epithelial Cell,Urine <1 /hpf (0-4); Urobilinogen,Urine <2.0 mg/dL (<2.0); WBC,Urine 1 /hpf (0-5)
[2018-12-16] MEDS ORDERED: SODIUM POLYSTYRENE SULFONATE 15 GM/60 ML BOTTLE PO SCH (09:00)
[2018-12-16] MEDS ORDERED: VANCOMYCIN 1,750 MG in SODIUM CHLORIDE 0.9% 500 ML 500 ML IVPB ONE (09:00)
--- NOTE | 2018-12-16 09:27 | P.HPIM ---
History of Present Illness H&P Date: 12/16/18 Chief Complaint: Fevers and chills and confusion The patient is a 68-year-old male with a past medical history of diastolic CHF, coronary artery disease with stenting in 2005, COPD, type 2 diabetes, hypertension, hyperlipidemia, chronic kidney disease stage III, re current chronic lower extremity wound secondary to chronic stasis venous ulcers who presents to the ER via EMS with his Lisa. The patient is somnolent but arousable, most of the history is obtained from his Lisa was present at bedside. Apparently the patient was in his normal state of health yesterday and then subsequently having rigors and chills and night sweats last night and then became increasingly confused and disoriented to self and location prompting his to bring him to the ED. The patient's denies any cough, increasing shortness of breath. The patient has been following Dr. Foster in wound care clinic and reports that the left anterior leg wound began being increasingly purulent 3 days ago. reports that the patient is largely wheelchair-bound is able to ambulate at times with a walker with a max 1 person assist. Review of records indicates the patient was recently discharged in September of this year at that time I presented with similar complaints and was found to have severe sepsis secondary to gram-negative actually anemia and acute cholecystitis requiring laparoscopic cholecystectomy. The patient also has had previous pseudomonal UTI and previous wound cultures have grown staph aureus and Enterococcus faecalis. In the ER the patient had a comprehensive workup, CBC consistent with a severe leukocytosis of 23.5, hemoglobin 11, lactic acid 2.3, serum sodium 140, potassium 3.9, creatinine 2.0. 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, chronic venous ulcer left anterior lower leg-treated in [facility], sepsis from L leg wound, chronic anemia, hyperkalemia, CKD-spouse states his kidneys function at 28%, DELVIN with Cpap, possible starting of dementia, confusion at times at night, bilateral lower leg varicosities, umbilical hernia, Hpylori, ambulates very little with walker and mostly wheelchair bound, recent UTI 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 Past Anesthesia/Blood Transfusion Reactions: No Reported Reaction Date of Last Stent Placement:: 10/2015 Smoking Status: Never smoker - Past Family History Father Family Medical History: COPD Additional Family Medical History / Comment(s): AT AGE 64- EMPHYSEMA(SMOKER) Mother Family Medical History: Diabetes Mellitus, Hypertension Additional Family Medical History / Comment(s): LUPUS, LEG AMPUTATED. MOM IN HER 60'S Medications and Allergies Home Medications Medication Instructions Recorded Confirmed Type Allopurinol [Zyloprim] 100 mg PO DAILY 04/22/15 12/16/18 History Cholecalciferol [Vitamin D3 (25 5,000 unit PO DAILY 04/22/15 12/16/18 History Mcg = 1000 Iu)] Gabapentin [Neurontin] 300 mg PO TID 04/22/15 12/16/18 History Magnesium Oxide [Mag-Ox] 250 mg PO DAILY 04/22/15 12/16/18 History Fish Oil/Dha/Epa [Fish Oil 1,200 1 cap PO DAILY 09/06/15 12/16/18 History mg Fish Oil] Simvastatin [Zocor] 40 mg PO HS 09/06/15 12/16/18 History Ferrous Sulfate [Iron (65 MG 325 mg PO DAILY 10/23/15 12/16/18 History Elemental)] hydrALAZINE HCL [Apresoline] 100 mg PO TID 05/04/16 12/16/18 History Aspirin 325 mg PO DAILY 08/27/17 12/16/18 History amLODIPine [Norvasc] 5 mg PO BID 08/27/17 12/16/18 History HYDROcodone/APAP 10-325MG [[place] 1 tab PO TID PRN #20 tab 03/05/18 06/14/19 Rx 10-325] Insulin Glargine [Lantus] 30 unit SQ DAILY 09/14/18 12/16/18 History Furosemide [Lasix] 40 mg PO BID 10/21/18 12/16/18 History Calcitriol 0.25 mcg PO Q7D 12/16/18 12/16/18 History Sodium Polystyrene Sulfon/Sorb 5 gm PO DAILY 12/16/18 12/16/18 History [Kionex 15 gm/60 ml Suspension] Allergies Allergy/AdvReac Type Severity Reaction Status Date / Time aspirin [From Anacin] Allergy Rash/Hives Verified 12/16/18 07:57 sulfamethoxazole AdvReac affects Verified 12/16/18 07:57 [From Bactrim] kidneys trimethoprim [From Bactrim] AdvReac Unknown Verified 12/16/18 07:57 Physical Exam Vitals: Vital Signs Temp Pulse Resp BP Pulse Ox 12/16/18 08:23 80 18 120/50 98 12/16/18 07:10 93 18 107/55 98 12/16/18 06:30 100.6 F H 99 17 102/37 98 12/16/18 06:15 102 H 16 103/41 98 12/16/18 06:00 105 H 17 110/37 98 12/16/18 05:45 101 H 22 122/60 97 12/16/18 05:22 109 H 28 H 131/66 99 12/16/18 05:08 103.1 F H 111 H 28 H 187/90 96 Intake and Output 12/15/18 12/16/18 12/16/18 22:59 06:59 14:59 Output Total 600 Balance -600 Output: Urine 600 Straight 600 Other: Weight 95.254 kg Constitutional: No acute distress, conversant, pleasant Eyes: Anicteric sclerae, moist conjunctiva, no lid-lag, PERRLA ENMT: NC/AT,Oropharynx clear, no erythema, exudates Neck:Supple, FROM, no masses, or JVD, No carotid bruits; No thyromegaly Lungs: Clear to auscultation, Clear to percussion, Normal respiratory effort, no accessory muscle use Cardiovascular: Heart regular in rate and rhythm, No murmurs, gallops, or rubs no peripheral edema Abdominal: Soft Nontender, nom distended, no guarding, no rebound or rigidity, Normoactive bowel sounds No hepatomegaly, No splenomegaly, No palpable mass No abdominal wall hernia noted Skin: Normal temperature, left anterior leg ulcer, chronic atrophic changes Extremities:No digital cyanosis No clubbing, Pedal pulses intact and symmetrical Radial pulses intact and symmetrical Normal gait and station, No calf tenderness Psychiatric: Alert and oriented to person, place and time, Appropriate affect Intact judgement Neuro: Muscles Strength 5/5 in all 4 extremities, Sensation to light touch grossly present throughout, Cranial nerves II-XII grossly intact. No focal sensory deficits Results CBC & Chem 7: 12/17/18 07:45 12/17/18 07:45 Labs: Abnormal Lab Results - Last 24 Hours (Table) 12/16/18 12/16/18 12/16/18 Range/Units 05:18 05:18 05:18 WBC 23.5 H (3.8-10.6) k/uL RBC 3.69 L (4.30-5.90) m/uL Hgb 11.0 L (13.0-17.5) gm/dL Hct 33.8 L (39.0-53.0) % Neutrophils # 21.0 H (1.3-7.7) k/uL APTT (22.0-30.0) sec BUN 44 H (9-20) mg/dL Creatinine 2.01 H (0.66-1.25) mg/dL Glucose 251 H (74-99) mg/dL Plasma Lactic Acid Anthony 2.3 H* (0.7-2.0) mmol/L ALT 15 L (21-72) U/L Urine Protein (Negative) Urine Glucose (UA) (Negative) Urine Mucus (None) /hpf 12/16/18 12/16/18 Range/Units 05:18 07:50 WBC (3.8-10.6) k/uL RBC (4.30-5.90) m/uL Hgb (13.0-17.5) gm/dL Hct (39.0-53.0) % Neutrophils # (1.3-7.7) k/uL APTT 17.8 L (22.0-30.0) sec BUN (9-20) mg/dL Creatinine (0.66-1.25) mg/dL Glucose (74-99) mg/dL Plasma Lactic Acid Anthony (0.7-2.0) mmol/L ALT (21-72) U/L Urine Protein 2+ H (Negative) Urine Glucose (UA) 1+ H (Negative) Urine Mucus Rare H (None) /hpf Thrombosis Risk Factor Assmnt - Choose All That Apply Any of the Below Risk Factors Present?: Yes Each Factor Represents 1 point: Abnormal pulmonary function (COPD), Medical pt on bed rest, Obesity (BMI >25), Sepsis (< 1month), Varicose veins Other Risk Factors: Yes Each Risk Factor Represents 2 Points: Age 61-74 years, Patient confined to bed Other congenital or acquired thrombophilia - If yes, enter type in comment: No Thrombosis Risk Factor Assessment Total Risk Factor Score: 9 Thrombosis Risk Factor Assessment Level: High Risk Assessment and Plan (1) Sepsis Current Visit: Yes Status: Acute Code(s): A41.9 - SEPSIS, UNSPECIFIED ORGANISM SNOMED Code(s): 28798541 (2) Venous stasis ulcer of left lower leg with edema of left lower leg Current Visit: Yes Status: Acute Code(s): I83.029 - VARICOSE VEINS OF LEFT LOWER EXTREMITY W ULCER OF UNSP SITE; I83.892 - VARICOSE VEINS OF L LOW EXTREM WITH OTHER COMPLICATIONS; L97.929 - NON-PRS CHRONIC ULC UNSP PRT OF L LOW LEG W UNSP SEVERITY; R60.9 - EDEMA, UNSPECIFIED SNOMED Code(s): 66946970947225644 (3) Metabolic encephalopathy Current Visit: Yes Status: Acute Code(s): G93.41 - METABOLIC ENCEPHALOPATHY SNOMED Code(s): 37076910 (4) CKD (chronic kidney disease) stage 3, GFR 30-59 ml/min Current Visit: Yes Status: Acute Code(s): N18.3 - CHRONIC KIDNEY DISEASE, STAGE 3 (MODERATE) SNOMED Code(s): 997869782 (5) Weakness Current Visit: No Status: Acute Code(s): R53.1 - WEAKNESS SNOMED Code(s): 39932004 Plan: The patient is admitted to the cardiac unit anticipated greater than 2 midnight stay with sepsis likely secondary to suspected infected chronic venous stasis ulcer, blood culture pending, urinalysis negative and chest x-ray negative. Patient presented with tachycardia and fever and a pronounced leukocytosis. We'll continue with empiric IV antibiotics with vancomycin and Zosyn and Levaquin. We will bolus with 30 mL/kg per sepsis protocol. We'll plan to consult ID Dr. Campuzano. We will continue to monitor blood sugars qahs with correctional scale insulin coverage ordered. We'll continue to follow clinical course CODE STATUS: Full code Surrogate decision-maker: Lisa Anticipated discharge : 2-3 days Prophylaxis: Heparin SQ Anticipated discharge place: home Time with Patient: Greater than 30
[2018-12-16] MEDS: SODIUM CHLORIDE 0.9% 1,000 ML IV SCH (09:46)
[2018-12-16] MEDS: hydrALAZINE HCL 50 MG TAB PO SCH ×3 (10:45→22:06)
[2018-12-16] MEDS: ASPIRIN 325 MG TAB PO SCH (10:46)
[2018-12-16] MEDS: CHOLECALCIFEROL 1,000 UNIT TAB PO SCH (10:46)
[2018-12-16] MEDS: FERROUS SULFATE 325 MG TAB PO SCH (10:47)
[2018-12-16] MEDS: amLODIPine 5 MG TAB PO SCH ×2 (10:47→21:00)
[2018-12-16] MEDS: MAGNESIUM OXIDE 400 MG TAB PO SCH (10:47)
[2018-12-16] MEDS: FUROSEMIDE 40 MG TAB PO SCH ×2 (10:48→18:08)
[2018-12-16] MEDS: GABAPENTIN 300 MG CAP PO SCH ×3 (10:48→22:06)
[2018-12-16] MEDS: HEPARIN SODIUM,PORCINE 5,000 UNIT/ML 1 ML VIAL SQ SCH ×2 (10:54→23:50)
[2018-12-16 11:58] LABS: Glucose,Whole Blood 300 mg/dL (75-99)
[2018-12-16] MEDS: INSULIN DETEMIR (LEVEMIR) 100 UNIT/ML SYR SQ SCH (12:33)
[2018-12-16 13:25] LABS: Glucose,Whole Blood 342 mg/dL (75-99)
[2018-12-16] MEDS: INSULIN ASPART (NovoLOG) 100 UNIT/ML VIAL SQ SCH ×3 (13:26→21:00)
[2018-12-16 14:54] LABS: Glucose,Whole Blood 289 mg/dL (75-99)
[2018-12-16 17:09] LABS: Glucose,Whole Blood 209 mg/dL (75-99)
[2018-12-16] MEDS: PIPERACILLIN-TAZOBACTAM 3.375 GM in SODIUM CHLORIDE 0.9% 100 ML IVPB SCH ×2 (18:59→23:49)
[2018-12-16 19:26] LABS: Hemoglobin A1C 9.2 % (4.0-6.0)
[2018-12-16 20:58] LABS: Glucose,Whole Blood 172 mg/dL (75-99)
[2018-12-16] MEDS: CEFEPIME 2 GM in SODIUM CHLORIDE 0.9% 100 ML IVPB SCH (20:59)
[2018-12-16] MEDS ORDERED: ATORVASTATIN 20 MG TAB PO SCH (21:00)
--- NOTE | 2018-12-17 00:19 | P.CONS ---
History of Present Illness - Reason for Consult Consult date: 12/16/18 - Chief Complaint fever - History of Present Illness 68-year-old male who is had progressive decline of his physical status over the last several years, such that now at home apparently with increasing difficulty walking about the apartment.Must use an ambulatory aid at all times, apparently did have a significant fall several months ago and he no longer tries to ambulate any distances. His mental status is also dulled over time. At home he suddenly did not feel well with increasing fever chills and then altered mental status. Because 103 fever his brought with emergency center. Now with hydration and started antibiotic therapy he is feeling somewhat better. He knows it is a [place] which. He did not know his location last night. The patient tolerated the wound center and was having improvement to the left lower extremity that has now become erythematous warm and is developed some drainage which is new. Review of Systems HEENT:Denies headache or acute visual change. Denies sinus or mouth discomforts. Denies neck stiffness or pain. Denies significant oral cavity pain. Denies difficulty on swallowing. Lungs: Chronic shortness of breath without acute change denies new cough or sputum production or hemoptysis Cardiovascular: Denies chest pain shortness of breath is without acute change no new or therapy has dyspnea on exertion no syncope Gastrointestinal:Denies nausea, vomiting, diarrhea, constipation, hematemesis, melena, hematochezia. No no significant change of bowel habit noticed. Musculoskeletal: denies significant myalgias or arthralgias. No new joint swelling. Denies new back pain. Skin: Chronic swelling left leg worsening ulceration Neuro: Denies headache or visual change. Denies any new onset weakness or difficulty with ambulation. Denies falls or seizures. Psychiatric:Denies anxiety or depression. Endocrine: Chronic fatigue weight is stable 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, chronic venous ulcer left anterior lower leg-treated in [facility], sepsis from L leg wound, chronic anemia, hyperkalemia, CKD-spouse states his kidneys function at 28%, DELVIN with Cpap, possible starting of dementia, confusion at times at night, bilateral lower leg varicosities, umbilical hernia, Hpylori, ambulates very little with walker and mostly wheelchair bound, recent UTI 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 Past Anesthesia/Blood Transfusion Reactions: No Reported Reaction Date of Last Stent Placement:: 10/2015 Additional Psychological History / Comment(s): Patient has been a lifelong nonsmoker. He denies any medical marijuana, marijuana, street drug use. He denies any alcohol abuse. Patient lives at home with his . They are in a second floor apartment. He is retired from [employer]. No service no recent travel.No animal exposures Smoking Status: Never smoker - Past Family History Father Family Medical History: COPD Additional Family Medical History / Comment(s): AT AGE 64- EMPHYSEMA(SM OKER) Mother Family Medical History: Diabetes Mellitus, Hypertension Additional Family Medical History / Comment(s): LUPUS, LEG AMPUTATED. MOM IN HER 60'S Medications and Allergies Home Medications and Allergies Comment(s): Current Medications Acetaminophen (Tylenol Tab) 650 mg PO Q6HR PRN PRN Reason: Mild Pain or Fever > 100.5 Last Admin: 12/16/18 21:00 Dose: 650 mg Documented by: Hydrocodone Bitart/Acetaminophen ([place] 10) 1 each PO TID PRN PRN Reason: Pain Allopurinol (Zyloprim) 100 mg PO DAILY [facility] Amlodipine Besylate (Norvasc) 5 mg PO BID [facility] Last Admin: 12/16/18 21:00 Dose: 5 mg Documented by: Aspirin (Aspirin) 325 mg PO DAILY [facility] Last Admin: 12/16/18 10:46 Dose: 325 mg Documented by: Atorvastatin Calcium (Lipitor) 20 mg PO [facility] Last Admin: 12/16/18 21:00 Dose: 20 mg Documented by: Cholecalciferol (Vitamin D3 (25 Mcg = 1000 Iu)) 5,000 unit PO DAILY [facility] Last Admin: 12/16/18 10:46 Dose: 5,000 unit Documented by: Ferrous Sulfate (Feosol) 325 mg PO DAILY [facility] Last Admin: 12/16/18 10:47 Dose: 325 mg Documented by: Furosemide (Lasix) 40 mg PO BID@0900,1600 [facility] Last Admin: 12/16/18 18:08 Dose: 40 mg Documented by: Gabapentin (Neurontin) 300 mg PO TID [facility] Last Admin: 12/16/18 22:06 Dose: 300 mg Documented by: Heparin Sodium (Porcine) (Heparin) 5,000 unit SQ Q8HR [facility] Last Admin: 12/16/18 23:50 Dose: 5,000 unit Documented by: Hydralazine HCl (Apresoline) 100 mg PO TID [facility] Last Admin: 12/16/18 22:06 Dose: 100 mg Documented by: Sodium Chloride (Saline 0.9%) 1,000 mls @ 20 mls/hr IV .Q24H [facility] Last Admin: 12/16/18 09:46 Dose: 20 mls/hr Documented by: Piperacillin Sod/Tazobactam (Sod 3.375 gm/ Sodium Chloride) 100 mls @ 25 mls/hr IVPB Q8HR [facility] Last Admin: 12/16/18 23:49 Dose: 25 mls/hr Documented by: Cefepime HCl 2 gm/ Sodium (Chloride) 100 mls @ 200 mls/hr IVPB Q12HR [facility] Last Admin: 12/16/18 20:59 Dose: 200 mls/hr Documented by: Insulin Aspart (Novolog) 0 unit SQ ACHS [facility]; Protocol Last Admin: 12/16/18 21:00 Dose: 2 unit Documented by: Insulin Detemir (Levemir) 30 unit SQ DAILY [facility] Last Admin: 12/16/18 12:33 Dose: 30 unit Documented by: Magnesium Oxide (Mag-Ox) 400 mg PO DAILY [facility] Last Admin: 12/16/18 10:47 Dose: 400 mg Documented by: Naloxone HCl (Narcan) 0.2 mg IV Q2M PRN PRN Reason: Opioid Reversal Sodium Polystyrene Sulfonate (Kayexalate) 5 gm PO DAILY [facility] Home Medications Medication Instructions Recorded Confirmed Type Allopurinol [Zyloprim] 100 mg PO DAILY 04/22/15 12/16/18 History Cholecalciferol [Vitamin D3 (25 5,000 unit PO DAILY 04/22/15 12/16/18 History Mcg = 1000 Iu)] Gabapentin [Neurontin] 300 mg PO TID 04/22/15 12/16/18 History Magnesium Oxide [Mag-Ox] 250 mg PO DAILY 04/22/15 12/16/18 History Fish Oil/Dha/Epa [Fish Oil 1,200 1 cap PO DAILY 09/06/15 12/16/18 History mg Fish Oil] Simvastatin [Zocor] 40 mg PO HS 09/06/15 12/16/18 History Ferrous Sulfate [Iron (65 MG 325 mg PO DAILY 10/23/15 12/16/18 History Elemental)] hydrALAZINE HCL [Apresoline] 100 mg PO TID 05/04/16 12/16/18 History Aspirin 325 mg PO DAILY 08/27/17 12/16/18 History amLODIPine [Norvasc] 5 mg PO BID 08/27/17 12/16/18 History HYDROcodone/APAP 10-325MG [[place] 1 tab PO TID PRN #20 tab 09/06/17 12/16/18 Rx 10-325] Insulin Glargine [Lantus] 30 unit SQ DAILY 09/14/18 12/16/18 History Furosemide [Lasix] 40 mg PO BID 10/21/18 12/16/18 History Calcitriol 0.25 mcg PO Q7D 12/16/18 12/16/18 History Sodium Polystyrene Sulfon/Sorb 5 gm PO DAILY 12/16/18 12/16/18 History [Kionex 15 gm/60 ml Suspension] Allergies Allergy/AdvReac Type Severity Reaction Status Date / Time aspirin [From Anacin] Allergy Rash/Hives Verified 12/16/18 07:57 sulfamethoxazole AdvReac affects Verified 12/16/18 07:57 [From Bactrim] kidneys trimethoprim [From Bactrim] AdvReac Unknown Verified 12/16/18 07:57 Physical Exam Vitals: Vital Signs Temp Pulse Pulse Resp BP BP Pulse Ox 12/16/18 22:13 99.6 F 12/16/18 21:58 100.8 F H 84 132/64 12/16/18 20:47 100.7 F H 87 17 104/42 94 L 12/16/18 15:15 98.3 F 74 121/92 99 12/16/18 14:59 82 18 129/79 98 12/16/18 11:44 98.3 F 73 18 132/61 98 12/16/18 10:45 98.2 F 74 18 133/55 96 12/16/18 09:34 74 18 117/49 99 12/16/18 08:23 80 18 120/50 98 12/16/18 07:10 93 18 107/55 98 12/16/18 06:30 100.6 F H 99 17 102/37 98 12/16/18 06:15 102 H 16 103/41 98 12/16/18 06:00 105 H 17 110/37 98 12/16/18 05:45 101 H 22 122/60 97 12/16/18 05:22 109 H 28 H 131/66 99 12/16/18 05:08 103.1 F H 111 H 28 H 187/90 96 Intake and Output 12/16/18 12/16/18 12/17/18 14:59 22:59 06:59 Intake Total 100 Output Total 600 Balance -600 100 Intake: Oral 100 Output: Urine 600 Straight 600 Other: Voiding Method Urinal Incontinent # Voids 1 HEENT: Anicteric conjunctiva are pink and moist nasal mucosa grossly intact without significant lesions, there is no thrush. Neck: The neck is supple without significant lymphadenopathy or thyromegaly. Lungs: Symmetrical air entry is noted with expiratory wheezes that are scattered bronchial sounds Heart: Regular with an audible S1 and S2 soft S4 no distinct murmur click or rub PMI is nondisplaced Abdomen: Obese, Positive bowel sounds soft and nontender without palpable masses or organomegaly. There was no guarding or rebound. Extremities: The upper extremities have excellent pulses they are symmetric, no significant petechiae or telangiectasia. No splinter hemorrhages were noted. The lower extremities evidence of the bilateral lower extremity edema. Right leg he has no open ulcerations. Left leg has evidence of the more recent care. There are some punctate areas that are open with some bleeding. Scant drainage is noted. Erythema on the left lower limb is noted there is not an extensive am ount of ascending pharyngitis or erythema and no significant left inguinal lymphadenopathy is noted. No other abnormal lymph nodes are noted axillary supra clavicular epitrochlear or inguinal. Neuro: Awake alert oriented to person and place which is improved from earlier. He is able to move arms and legs on command. Results CBC & Chem 7: 12/16/18 05:18 12/16/18 05:18 Labs: Abnormal Lab Results - Last 24 Hours (Table) 12/16/18 12/16/18 12/16/18 Range/Units 05:18 05:18 05:18 WBC 23.5 H (3.8-10.6) k/uL RBC 3.69 L (4.30-5.90) m/uL Hgb 11.0 L (13.0-17.5) gm/dL Hct 33.8 L (39.0-53.0) % Neutrophils # 21.0 H (1.3-7.7) k/uL APTT (22.0-30.0) sec BUN 44 H (9-20) mg/dL Creatinine 2.01 H (0.66-1.25) mg/dL Glucose 251 H (74-99) mg/dL POC Glucose (mg/dL) (75-99) mg/dL Hemoglobin A1c (4.0-6.0) % Plasma Lactic Acid Anthony 2.3 H* (0.7-2.0) mmol/L ALT 15 L (21-72) U/L Urine Protein (Negative) Urine Glucose (UA) (Negative) Urine Mucus (None) /hpf 12/16/18 12/16/18 12/16/18 Range/Units 05:18 05:18 07:50 WBC (3.8-10.6) k/uL RBC (4.30-5.90) m/uL Hgb (13.0-17.5) gm/dL Hct (39.0-53.0) % Neutrophils # (1.3-7.7) k/uL APTT 17.8 L (22.0-30.0) sec BUN (9-20) mg/dL Creatinine (0.66-1.25) mg/dL Glucose (74-99) mg/dL POC Glucose (mg/dL) (75-99) mg/dL Hemoglobin A1c 9.2 H (4.0-6.0) % Plasma Lactic Acid Anthony (0.7-2.0) mmol/L ALT (21-72) U/L Urine Protein 2+ H (Negative) Urine Glucose (UA) 1+ H (Negative) Urine Mucus Rare H (None) /hpf 06/12/16/18 12/16/18 Range/Units 11:54 13:23 14:52 WBC (3.8-10.6) k/uL RBC (4.30-5.90) m/uL Hgb (13.0-17.5) gm/dL Hct (39.0-53.0) % Neutrophils # (1.3-7.7) k/uL APTT (22.0-30.0) sec BUN (9-20) mg/dL Creatinine (0.66-1.25) mg/dL Glucose (74-99) mg/dL POC Glucose (mg/dL) 300 H 342 H 289 H (75-99) mg/dL Hemoglobin A1c (4.0-6.0) % Plasma Lactic Acid Anthony (0.7-2.0) mmol/L ALT (21-72) U/L Urine Protein (Negative) Urine Glucose (UA) (Negative) Urine Mucus (None) /hpf 12/16/18 12/16/18 Range/Units 16:52 20:48 WBC (3.8-10.6) k/uL RBC (4.30-5.90) m/uL Hgb (13.0-17.5) gm/dL Hct (39.0-53.0) % Neutrophils # (1.3-7.7) k/uL APTT (22.0-30.0) sec BUN (9-20) mg/dL Creatinine (0.66-1.25) mg/dL Glucose (74-99) mg/dL POC Glucose (mg/dL) 209 H 172 H (75-99) mg/dL Hemoglobin A1c (4.0-6.0) % Plasma Lactic Acid Anthony (0.7-2.0) mmol/L ALT (21-72) U/L Urine Protein (Negative) Urine Glucose (UA) (Negative) Urine Mucus (None) /hpf Microbiology - Last 24 Hours (Table) 12/16/18 10:50 Wound Culture - Preliminary Leg - Left 12/16/18 07:50 Urine Culture - Preliminary Urine,Catheterized Laboratory Results WBC 23.5 k/uL (3.8-10.6) H 12/16/18 05:18 RBC 3.69 m/uL (4.30-5.90) L 12/16/18 05:18 Hgb 11.0 gm/dL (13.0-17.5) L 12/16/18 05:18 Hct 33.8 % (39.0-53.0) L 12/16/18 05:18 MCV 91.6 fL (80.0-100.0) 12/16/18 05:18 MCH 29.8 pg (25.0-35.0) 12/16/18 05:18 MCHC 32.5 g/dL (31.0-37.0) 12/16/18 05:18 RDW 14.5 % (11.5-15.5) 12/16/18 05:18 Plt Count 251 k/uL (150-450) 12/16/18 05:18 Neutrophils % 89 % 12/16/18 05:18 Lymphocytes % 5 % 12/16/18 05:18 Monocytes % 4 % 12/16/18 05:18 Eosinophils % 0 % 12/16/18 05:18 Basophils % 0 % 12/16/18 05:18 Neutrophils # 21.0 k/uL (1.3-7.7) H 12/16/18 05:18 Lymphocytes # 1.3 k/uL (1.0-4.8) 12/16/18 05:18 Monocytes # 1.0 k/uL (0-1.0) 12/16/18 05:18 Eosinophils # 0.1 k/uL (0-0.7) 12/16/18 05:18 Basophils # 0.0 k/uL (0-0.2) 12/16/18 05:18 PT 9.8 sec (9.0-12.0) 12/16/18 05:18 INR 0.9 (<1.2) 12/16/18 05:18 APTT 17.8 sec (22.0-30.0) L 12/16/18 05:18 Sodium 140 mmol/L (137-145) 12/16/18 05:18 Potassium 3.9 mmol/L (3.5-5.1) 12/16/18 05:18 Chloride 100 mmol/L (98-107) 12/16/18 05:18 Carbon Dioxide 28 mmol/L (22-30) 12/16/18 05:18 Anion Gap 12 mmol/L 12/16/18 05:18 BUN 44 mg/dL (9-20) H 12/16/18 05:18 Creatinine 2.01 mg/dL (0.66-1.25) H 12/16/18 05:18 Est GFR (CKD-EPI)AfAm 38 (>60 ml/min/1.73 sqM) 12/16/18 05:18 Est GFR (CKD-EPI)NonAf 33 (>60 ml/min/1.73 sqM) 12/16/18 05:18 Glucose 251 mg/dL (74-99) H 12/16/18 05:18 POC Glucose (mg/dL) 172 mg/dL (75-99) H 12/16/18 20:48 POC Glu Offline Editor ID Alanis Muniz 12/16/18 20:[address] Glu mg/dL 217 12/16/18 05:18 Hemoglobin A1c 9.2 % (4.0-6.0) H 12/16/18 05:18 Lactic Ac Sepsis Rflx Y 12/16/18 06:11 Plasma Lactic Acid Anthony 1.3 mmol/L (0.7-2.0) 12/16/18 09:30 Calcium 9.6 mg/dL (8.4-10.2) 12/16/18 05:18 Total Bilirubin 0.4 mg/dL (0.2-1.3) 12/16/18 05:18 AST 26 U/L (17-59) 12/16/18 05:18 ALT 15 U/L (21-72) L 12/16/18 05:18 Alkaline Phosphatase 110 U/L (38-126) 12/16/18 05:18 Troponin I 0.014 ng/mL (0.000-0.034) 12/16/18 05:18 Total Protein 7.3 g/dL (6.3-8.2) 12/16/18 05:18 Albumin 4.4 g/dL (3.5-5.0) 12/16/18 05:18 Urine Color Yellow 12/16/18 07:50 Urine Appearance Clear (Clear) 12/16/18 07:50 Urine pH 5.5 (5.0-8.0) 12/16/18 07:50 Ur Specific Center 1.010 (1.001-1.035) 12/16/18 07:50 Urine Protein 2+ (Negative) H 12/16/18 07:50 Urine Glucose (UA) 1+ (Negative) H 12/16/18 07:50 Urine Ketones Negative (Negative) 12/16/18 07:50 Urine Blood Negative (Negative) 12/16/18 07:50 Urine Nitrite Negative (Negative) 12/16/18 07:50 Urine Bilirubin Negative (Negative) 12/16/18 07:50 Urine Urobilinogen <2.0 mg/dL (<2.0) 12/16/18 07:50 Ur Leukocyte Esterase Negative (Negative) 12/16/18 07:50 Urine RBC 1 /hpf (0-5) 12/16/18 07:50 Urine WBC 1 /hpf (0-5) 12/16/18 07:50 Ur Squamous Epith Cells <1 /hpf (0-4) 12/16/18 07:50 Urine Mucus Rare /hpf (None) H 12/16/18 07:50 Microbiology 12/16/18 10:50 Leg - Left Wound Culture - Preliminary 12/16/18 07:50 Urine,Catheterized Urine Culture - Preliminary Chest x-ray: report reviewed (No evidence of pneumonia or heart failure) Assessment and Plan (1) Fever Current Visit: Yes Status: Acute Code(s): R50.9 - FEVER, UNSPECIFIED SNOMED Code(s): 944823697 (2) Cellulitis of left leg Narrative/Plan: 68-year-old male presents the emergency center under the direction of his because of his altered mental status and fever of 103. The patient has had multiple prior hospitalizations with similar bouts of infection could have been from several sites including the urine as well as cellulitis. At this time workup is in process. Appears to have evidence of a cellulitis of the left lo wer extremity is etiology of his current sepsis. Wound cultures are in process. Blood cultures are also in progress. Given his history vancomycin and piperacillin tazobactam are being utilized until further culture data is available. He has significant leukocytosis related from his sepsis. Local wound care to the limb has been provided with Vaseline gauze and rolled gauze. Elevate the limb while he is at rest. Current Visit: Yes Status: Acute Code(s): L03.116 - CELLULITIS OF LEFT LOWER LIMB SNOMED Code(s): 262616222 (3) Venous stasis ulcer of left lower leg with edema of left lower leg Current Visit: Yes Status: Acute Code(s): I83.029 - VARICOSE VEINS OF LEFT LOWER EXTREMITY W ULCER OF UNSP SITE; I83.892 - VARICOSE VEINS OF L LOW EXTREM WITH OTHER COMPLICATIONS; L97.929 - NON-PRS CHRONIC ULC UNSP PRT OF L LOW LEG W UNSP SEVERITY; R60.9 - EDEMA, UNSPECIFIED SNOMED Code(s): 05058563901982354
[2018-12-17 06:15] LABS: Glucose,Whole Blood 205 mg/dL (75-99)
[2018-12-17] MEDS: INSULIN ASPART (NovoLOG) 100 UNIT/ML VIAL SQ SCH ×4 (06:30→20:57)
[2018-12-17] MEDS ORDERED: LEVOFLOXACIN 750MG-D5W PMX 750 MG in DEXTROSE/WATER 1 150ML.BAG IVPB SCH (08:00)
[2018-12-17 08:06] LABS: Basophils % (A) 0 %; Eosinophils # (A) 0.1 k/uL (0-0.7); Eosinophils % (A) 1 %; HCT 29.6 % (39.0-53.0); Lymphocytes # (A) 1.2 k/uL (1.0-4.8); Lymphocytes % (A) 10 %; MCH 30.1 pg (25.0-35.0); MCHC 32.2 g/dL (31.0-37.0); MCV 93.4 fL (80.0-100.0); Monocytes # (A) 0.6 k/uL (0-1.0); Monocytes % (A) 5 %; Neutrophils # (A) 9.7 k/uL (1.3-7.7); Neutrophils % (A) 82 %; Platelet Count 202 k/uL (150-450); RBC 3.17 m/uL (4.30-5.90); RDW 14.8 % (11.5-15.5); WBC 11.8 k/uL (3.8-10.6)
[2018-12-17 08:24] LABS: Calcium 9.2 mg/dL (8.4-10.2); HGB 9.5 gm/dL (13.0-17.5); Potassium 3.9 mmol/L (3.5-5.1)
[2018-12-17] MEDS: CHOLECALCIFEROL 1,000 UNIT TAB PO SCH (08:42)
[2018-12-17] MEDS: HEPARIN SODIUM,PORCINE 5,000 UNIT/ML 1 ML VIAL SQ SCH ×2 (08:42→15:53)
[2018-12-17] MEDS: INSULIN DETEMIR (LEVEMIR) 100 UNIT/ML SYR SQ SCH (08:42)
[2018-12-17] MEDS: ASPIRIN 325 MG TAB PO SCH (08:43)
[2018-12-17] MEDS: FERROUS SULFATE 325 MG TAB PO SCH (08:43)
[2018-12-17] MEDS: hydrALAZINE HCL 50 MG TAB PO SCH ×3 (08:43→20:57)
[2018-12-17] MEDS: ALLOPURINOL 100 MG TAB PO SCH (08:43)
[2018-12-17] MEDS: GABAPENTIN 300 MG CAP PO SCH ×3 (08:43→20:57)
[2018-12-17] MEDS: MAGNESIUM OXIDE 400 MG TAB PO SCH (08:43)
[2018-12-17] MEDS: FUROSEMIDE 40 MG TAB PO SCH ×2 (08:43→15:52)
[2018-12-17] MEDS: CEFEPIME 2 GM in SODIUM CHLORIDE 0.9% 100 ML IVPB SCH ×2 (08:43→20:57)
[2018-12-17] MEDS: amLODIPine 5 MG TAB PO SCH ×2 (08:43→20:57)
[2018-12-17] MEDS: SODIUM POLYSTYRENE SULFONATE 15 GM/60 ML BOTTLE PO SCH (08:44)
[2018-12-17] MEDS: SODIUM CHLORIDE 0.9% 1,000 ML IV SCH (08:57)
[2018-12-17] MEDS ORDERED: VANCOMYCIN 1,750 MG in SODIUM CHLORIDE 0.9% 500 ML 500 ML IVPB SCH (09:00)
[2018-12-17] MEDS ORDERED: NON-FORMULARY DRUG (Fish Oil/Dha/Epa [Fish Oil 1,200 Mg Fish Oil] 1 CAP) PO SCH (09:00)
[2018-12-17] MEDS ORDERED: VANCOMYCIN 1,500 MG in SODIUM CHLORIDE 0.9% 250 ML IVPB SCH (09:00)
[2018-12-17 11:32] LABS: Glucose,Whole Blood 324 mg/dL (75-99)
--- NOTE | 2018-12-17 12:16 | P.PN ---
Subjective Progress Note Date: 12/17/18 Patient seen and examined at bedside, awake alert and conversive, cognition has much improved since yesterday. Patient feeling good, denies any chest pain or shortness of breath. Leukocytosis of significantly improved down from 23.5 to 11.8. Hemoglobin down to 9.5 g from 11 the patient also been receiving fluids, A1c 9.2. The patient had a low-grade temperature of 100.8 overnight Objective - Vital Signs Vital signs: Vital Signs Temp 98.4 F 12/17/18 08:00 Pulse 72 12/17/18 08:00 Resp 18 12/17/18 08:00 BP 140/80 12/17/18 08:00 Pulse Ox 97 12/17/18 08:00 Intake & Output 12/16/18 12/17/18 12/17/18 18:59 06:59 18:59 Intake Total 100 600 840 Output Total 600 600 Balance -500 0 840 Weight 136 kg Intake: Intake, IV Titration 600 Amount Cefepime 2 gm In Sodium 100 Chloride 0.9% 100 ml @ 200 mls/hr IVPB Q12HR [facility] Rx#:[id number] Vancomycin 1,750 mg In 500 Sodium Chloride 0.9% 500 ml 500 ml @ 167 mls/hr IVPB Q24HR [facility] Rx#: [id number] Oral 100 840 Output: Urine 600 600 Straight 600 Other: Voiding Method Urinal Incontinent # Voids 1 - Exam Constitutional: No acute distress, conversant, pleasant Eyes: Anicteric sclerae, moist conjunctiva, no lid-lag, PERRLA ENMT: NC/AT,Oropharynx clear, no erythema, exudates Neck:Supple, FROM, no masses, or JVD, No carotid bruits; No thyromegaly Lungs: Clear to auscultation, Clear to percussion, Normal respiratory effort, no accessory muscle use Cardiovascular: Heart regular in rate and rhythm, No murmurs, gallops, or rubs no peripheral edema Abdominal: Soft Nontender, nom distended, no guarding, no rebound or rigidity, Normoactive bowel sounds No hepatomegaly, No splenomegaly, No palpable mass No abdominal wall hernia noted Skin: Normal temperature, left anterior leg ulcer, chronic atrophic changes Extremities:No digital cyanosis No clubbing, Pedal pulses intact and symmetrical Radial pulses intact and symmetrical Normal gait and station, No calf tenderness Psychiatric: Alert and oriented to person, place and time, Appropriate affect Intact judgement Neuro: Muscles Strength 5/5 in all 4 extremities, Sensation to light touch grossly present throughout, Cranial nerves II-XII grossly intact. No focal sensory deficits - Labs CBC & Chem 7: 12/17/18 07:45 12/17/18 07:45 Labs: Abnormal Lab Results - Last 24 Hours (Table) 12/16/18 12/16/18 12/16/18 Range/Units 05:18 13:23 14:52 WBC (3.8-10.6) k/uL RBC (4.30-5.90) m/uL Hgb (13.0-17.5) gm/dL Hct (39.0-53.0) % Neutrophils # (1.3-7.7) k/uL BUN (9-20) mg/dL Creatinine (0.66-1.25) mg/dL Glucose (74-99) mg/dL POC Glucose (mg/dL) 342 H 289 H (75-99) mg/dL Hemoglobin A1c 9.2 H (4.0-6.0) % 12/16/18 12/16/18 12/17/18 Range/Units 16:52 20:48 06:13 WBC (3.8-10.6) k/uL RBC (4.30-5.90) m/uL Hgb (13.0-17.5) gm/dL Hct (39.0-53.0) % Neutrophils # (1.3-7.7) k/uL BUN (9-20) mg/dL Creatinine (0.66-1.25) mg/dL Glucose (74-99) mg/dL POC Glucose (mg/dL) 209 H 172 H 205 H (75-99) mg/dL Hemoglobin A1c (4.0-6.0) % 12/17/18 12/17/18 12/17/18 Range/Units 07:45 07:45 11:31 WBC 11.8 H (3.8-10.6) k/uL RBC 3.17 L (4.30-5.90) m/uL Hgb 9.5 L D (13.0-17.5) gm/dL Hct 29.6 L (39.0-53.0) % Neutrophils # 9.7 H (1.3-7.7) k/uL BUN 41 H (9-20) mg/dL Creatinine 2.24 H (0.66-1.25) mg/dL Glucose 242 H (74-99) mg/dL POC Glucose (mg/dL) 324 H (75-99) mg/dL Hemoglobin A1c (4.0-6.0) % Microbiology - Last 24 Hours (Table) 12/16/18 07:50 Urine Culture - Final Urine,Catheterized 12/16/18 10:50 Gram Stain - Preliminary Leg - Left Wound Culture - Preliminary Presumptive MRSA 12/16/18 05:18 Blood Culture - Preliminary Blood No Growth after 24 hours Assessment and Plan (1) Sepsis Narrative/Plan: * Likely secondary to infected left anterior leg venous stasis ulcer * Blood cultures are still pending * Continue current regimen per ID recommendations currently on cefepime Current Visit: Yes Status: Acute Code(s): A41.9 - SEPSIS, UNSPECIFIED ORGANISM SNOMED Code(s): 53792656 (2) Venous stasis ulcer of left lower leg with edema of left lower leg Current Visit: Yes Status: Acute Code(s): I83.029 - VARICOSE VEINS OF LEFT LOWER EXTREMITY W ULCER OF UNSP SITE; I83.892 - VARICOSE VEINS OF L LOW EXTREM WITH OTHER COMPLICATIONS; L97.929 - NON-PRS CHRONIC ULC UNSP PRT OF L LOW LEG W UNSP SEVERITY; R60.9 - EDEMA, UNSPECIFIED SNOMED Code(s): 71925363165621240 (3) Metabolic encephalopathy Narrative/Plan: * Secondary to sepsis, encephalopathy is now resolved * CT of the head showing stable mild cerebral atrophy with no acute intracranial abnormality seen Current Visit: Yes Status: Resolved Code(s): G93.41 - METABOLIC ENCEPHALOPATHY SNOMED Code(s): 56783741 (4) CKD (chronic kidney disease) stage 3, GFR 30-59 ml/min Narrative/Plan: * Creatinine right at his baseline Current Visit: Yes Status: Chronic Code(s): N18.3 - CHRONIC KIDNEY DISEASE, STAGE 3 (MODERATE) SNOMED Code(s): 907812254 (5) Weakness Narrative/Plan: * PT consulted * Patient largely wheelchair-bound ambulates with walker with a max 1 person assist Current Visit: No Status: Acute Code(s): R53.1 - WEAKNESS SNOMED Code(s): 97757044 (6) Type 2 diabetes mellitus with hyperglycemia Narrative/Plan: * A1c 9.2 indicating poor control, continue with Accu-Cheks * Blood sugars elevated we'll increase his basal insulin 35 units * Continue sliding scale coverage Current Visit: Yes Status: Acute Code(s): E11.65 - TYPE 2 DIABETES MELLITUS WITH HYPERGLYCEMIA SNOMED Code(s): 313716601503563
[2018-12-17] MEDS ORDERED: INSULIN DETEMIR (LEVEMIR) 100 UNIT/ML SYR SQ ONE (13:00)
[2018-12-17 14:39] VITALS: BMI 43.0
[2018-12-17] MEDS: DAPTOmycin 500 MG in SODIUM CHLORIDE 0.9% 50 ML IVPB SCH (15:53)
[2018-12-17 16:52] LABS: Glucose,Whole Blood 244 mg/dL (75-99)
[2018-12-17 20:49] LABS: Glucose,Whole Blood 252 mg/dL (75-99)
--- NOTE | 2018-12-17 21:33 | P.PN ---
Subjective Progress Note Date: 12/17/18 68-year-old male who is had progressive decline of his physical status over the last several years, such that now at home apparently with increasing difficulty walking about the apartment.Must use an ambulatory aid at all times, apparently did have a significant fall several months ago and he no longer tries to ambulate any distances. His mental status is also dulled over time. At home he suddenly did not feel well with increasing fever chills and then altered mental status. Because 103 fever his brought with emergency center. Now with hydration and started antibiotic therapy he is feeling somewhat better. He knows it is a [place] which. He did not know his location last night. The patient tolerated the wound center and was having improvement to the left lower extremity that has now become erythematous warm and is developed some drainage which is new. 08/19/2018 the patient is feeling slightly better today. His fever has improved. Mentation is improved. Still feels very weak. Objective - Vital Signs Vital signs: Vital Signs Temp 99.6 F 12/17/18 20:10 Pulse 81 12/17/18 20:10 Resp 16 12/17/18 20:10 BP 168/73 12/17/18 20:10 Pulse Ox 95 12/17/18 20:10 Intake & Output 12/17/18 12/17/18 12/18/18 06:59 18:59 06:59 Intake Total 600 1661 Output Total 600 Balance 0 1661 Weight 136 kg 136 kg Intake: Intake, IV Titration 600 Amount Cefepime 2 gm In Sodium 100 Chloride 0.9% 100 ml @ 200 mls/hr IVPB Q12HR [facility] Rx#:[id number] Vancomycin 1,750 mg In 500 Sodium Chloride 0.9% 500 ml 500 ml @ 167 mls/hr IVPB Q24HR [facility] Rx#: [id number] Oral 1661 Output: Urine 600 Other: Voiding Method Urinal Incontinent # Voids 1 - Exam HEENT: Anicteric conjunctiva are pink and moist nasal mucosa grossly intact without significant lesions, there is no thrush. Neck: The neck is supple without significant lymphadenopathy or thyromegaly. Lungs: Symmetrical air entry is noted with expiratory wheezes that are scattered bronchial sounds Heart: Regular with an audible S1 and S2 soft S4 no distinct murmur click or rub PMI is nondisplaced Abdomen: Obese, Positive bowel sounds soft and nontender without palpable masses or organomegaly. There was no guarding or rebound. Extremities: The upper extremities have excellent pulses they are symmetric, no significant petechiae or telangiectasia. No splinter hemorrhages were noted. The lower extremities evidence of the bilateral lower extremity edema. Right l eg he has no open ulcerations. Left leg has evidence of the more recent care. There are some punctate areas that are open with some bleeding. Scant drainage is noted. Erythema on the left lower limb is noted there is not an extensive amount of ascending pharyngitis or erythema and no significant left inguinal lymphadenopathy is noted. No other abnormal lymph nodes are noted axillary supra clavicular epitrochlear or inguinal. Neuro: Awake alert oriented to person and place and time He is able to move arms and legs on command. - Labs CBC & Chem 7: 12/17/18 07:45 12/17/18 07:45 Labs: Abnormal Lab Results - Last 24 Hours (Table) 12/17/18 12/17/18 12/17/18 Range/Units 06:13 07:45 07:45 WBC 11.8 H (3.8-10.6) k/uL RBC 3.17 L (4.30-5.90) m/uL Hgb 9.5 L D (13.0-17.5) gm/dL Hct 29.6 L (39.0-53.0) % Neutrophils # 9.7 H (1.3-7.7) k/uL BUN 41 H (9-20) mg/dL Creatinine 2.24 H (0.66-1.25) mg/dL Glucose 242 H (74-99) mg/dL POC Glucose (mg/dL) 205 H (75-99) mg/dL 12/17/18 12/17/18 12/17/18 Range/Units 11:31 16:41 20:46 WBC (3.8-10.6) k/uL RBC (4.30-5.90) m/uL Hgb (13.0-17.5) gm/dL Hct (39.0-53.0) % Neutrophils # (1.3-7.7) k/uL BUN (9-20) mg/dL Creatinine (0.66-1.25) mg/dL Glucose (74-99) mg/dL POC Glucose (mg/dL) 324 H 244 H 252 H (75-99) mg/dL Microbiology - Last 24 Hours (Table) 12/16/18 07:50 Urine Culture - Final Urine,Catheterized 12/16/18 10:50 Gram Stain - Preliminary Leg - Left Wound Culture - Preliminary Presumptive MRSA 12/16/18 05:18 Blood Culture - Preliminary Blood No Growth after 24 hours Laboratory Results WBC 11.8 k/uL (3.8-10.6) H 12/17/18 07:45 RBC 3.17 m/uL (4.30-5.90) L 12/17/18 07:45 Hgb 9.5 gm/dL (13.0-17.5) L D 12/17/18 07:45 Hct 29.6 % (39.0-53.0) L 12/17/18 07:45 MCV 93.4 fL (80.0-100.0) 12/17/18 07:45 MCH 30.1 pg (25.0-35.0) 12/17/18 07:45 MCHC 32.2 g/dL (31.0-37.0) 12/17/18 07:45 RDW 14.8 % (11.5-15.5) 12/17/18 07:45 Plt Count 202 k/uL (150-450) 12/17/18 07:45 Neutrophils % 82 % 12/17/18 07:45 Lymphocytes % 10 % 12/17/18 07:45 Monocytes % 5 % 12/17/18 07:45 Eosinophils % 1 % 12/17/18 07:45 Basophils % 0 % 12/17/18 07:45 Neutrophils # 9.7 k/uL (1.3-7.7) H 12/17/18 07:45 Lymphocytes # 1.2 k/uL (1.0-4.8) 12/17/18 07:45 Monocytes # 0.6 k/uL (0-1.0) 12/17/18 07:45 Eosinophils # 0.1 k/uL (0-0.7) 12/17/18 07:45 Basophils # 0.0 k/uL (0-0.2) 12/17/18 07:45 PT 9.8 sec (9.0-12.0) 12/16/18 05:18 INR 0.9 (<1.2) 12/16/18 05:18 APTT 17.8 sec (22.0-30.0) L 12/16/18 05:18 Sodium 140 mmol/L (137-145) 12/17/18 07:45 Potassium 3.9 mmol/L (3.5-5.1) 12/17/18 07:45 Chloride 103 mmol/L (98-107) 12/17/18 07:45 Carbon Dioxide 26 mmol/L (22-30) 12/17/18 07:45 Anion Gap 11 mmol/L 12/17/18 07:45 BUN 41 mg/dL (9-20) H 12/17/18 07:45 Creatinine 2.24 mg/dL (0.66-1.25) H 12/17/18 07:45 Est GFR (CKD-EPI)AfAm 34 (>60 ml/min/1.73 sqM) 12/17/18 07:45 Est GFR (CKD-EPI)NonAf 29 (>60 ml/min/1.73 sqM) 12/17/18 07:45 Glucose 242 mg/dL (74-99) H 12/17/18 07:45 POC Glucose (mg/dL) 252 mg/dL (75-99) H 12/17/18 20:46 POC Glu Lathe Hand Alanis Chow 12/17/18 20:[address] Glu mg/dL 217 12/16/18 05:18 Hemoglobin A1c 9.2 % (4.0-6.0) H 12/16/18 05:18 Lactic Ac Sepsis Rflx Y 12/16/18 06:11 Plasma Lactic Acid Anthony 1.3 mmol/L (0.7-2.0) 12/16/18 09:30 Calcium 9.2 mg/dL (8.4-10.2) 12/17/18 07:45 Total Bilirubin 0.4 mg/dL (0.2-1.3) 12/16/18 05:18 AST 26 U/L (17-59) 12/16/18 05:18 ALT 15 U/L (21-72) L 12/16/18 05:18 Alkaline Phosphatase 110 U/L (38-126) 12/16/18 05:18 Troponin I 0.014 ng/mL (0.000-0.034) 12/16/18 05:18 Total Protein 7.3 g/dL (6.3-8.2) 12/16/18 05:18 Albumin 4.4 g/dL (3.5-5.0) 12/16/18 05:18 Urine Color Yellow 12/16/18 07:50 Urine Appearance Clear (Clear) 12/16/18 07:50 Urine pH 5.5 (5.0-8.0) 12/16/18 07:50 Ur Specific [place] 1.010 (1.001-1.035) 12/16/18 07:50 Urine Protein 2+ (Negative) H 12/16/18 07:50 Urine Glucose (UA) 1+ (Negative) H 12/16/18 07:50 Urine Ketones Negative (Negative) 12/16/18 07:50 Urine Blood Negative (Negative) 12/16/18 07:50 Urine Nitrite Negative (Negative) 12/16/18 07:50 Urine Bilirubin Negative (Negative) 12/16/18 07:50 Urine Urobilinogen <2.0 mg/dL (<2.0) 12/16/18 07:50 Ur Leukocyte Esterase Negative (Negative) 12/16/18 07:50 Urine RBC 1 /hpf (0-5) 12/16/18 07:50 Urine WBC 1 /hpf (0-5) 12/16/18 07:50 Ur Squamous Epith Cells <1 /hpf (0-4) 12/16/18 07:50 Urine Mucus Rare /hpf (None) H 12/16/18 07:50 Microbiology 12/16/18 07:50 Urine,Catheterized Urine Culture - Final 12/16/18 10:50 Leg - Left Gram Stain - Preliminary 12/16/18 10:50 Leg - Left Wound Culture - Preliminary Presumptive MRSA 12/16/18 05:18 Blood Blood Culture - Preliminary No Growth after 24 hours Assessment and Plan (1) Fever Current Visit: Yes Status: Acute Code(s): R50.9 - FEVER, UNSPECIFIED SNOMED Code(s): 049788981 (2) Cellulitis of left leg Narrative/Plan: 68-year-old male presents the emergency center under the direction of his because of his altered mental status and fever of 103. The patient has had multiple prior hospitalizations with similar bouts of infection could have been from several sites including the urine as well as cellulitis. At this time workup is in process. Appears to have evidence of a cellulitis of the left lower extremity is etiology of his current sepsis. Wound cultures are in process. Blood cultures are also in progress. Given his history vancomycin and piperacillin tazobactam are being utilized until further culture data is available. He has significant leukocytosis related from his sepsis. Local wound care to the limb has been provided with Vaseline gauze and rolled gauze. Elevate the limb while he is at rest. 12/17/2018 the patient is feeling some better today. The laboratories revealing evidence of likely MRSA at the wound site of the leg. With this vancomycin will be added and continue local wound care. Final cultures are pending which will help us determine the course of antibiotic therapy the time of discharge. Unclear if he will go to rehab after his hospitalization. Current Visit: Yes Status: Acute Code(s): L03.116 - CELLULITIS OF LEFT LOWER LIMB SNOMED Code(s): 533313673 (3) Venous stasis ulcer of left lower leg with edema of left lower leg Current Visit: Yes Status: Acute Code(s): I83.029 - VARICOSE VEINS OF LEFT LOWER EXTREMITY W ULCER OF UNSP SITE; I83.892 - VARICOSE VEINS OF L LOW EXTREM WITH OTHER COMPLICATIONS; L97.929 - NON-PRS CHRONIC ULC UNSP PRT OF L LOW LEG W UNSP SEVERITY; R60.9 - EDEMA, UNSPECIFIED SNOMED Code(s): 47587806656833864
[2018-12-18] MEDS: HEPARIN SODIUM,PORCINE 5,000 UNIT/ML 1 ML VIAL SQ SCH ×4 (00:12→23:07)
[2018-12-18 06:16] LABS: Glucose,Whole Blood 205 mg/dL (75-99)
[2018-12-18 06:27] LABS: Basophils % (A) 0 %; Eosinophils # (A) 0.4 k/uL (0-0.7); Eosinophils % (A) 4 %; HCT 28.3 % (39.0-53.0); HGB 9.1 gm/dL (13.0-17.5); Lymphocytes # (A) 1.4 k/uL (1.0-4.8); Lymphocytes % (A) 12 %; MCH 29.4 pg (25.0-35.0); MCHC 32.2 g/dL (31.0-37.0); MCV 91.4 fL (80.0-100.0); Mean Platelet Volume 7.3; Monocytes # (A) 0.6 k/uL (0-1.0); Monocytes % (A) 5 %; Neutrophils # (A) 8.3 k/uL (1.3-7.7); Neutrophils % (A) 76 %; Platelet Count 220 k/uL (150-450); RDW 14.7 % (11.5-15.5); WBC 10.9 k/uL (3.8-10.6)
[2018-12-18 07:02] LABS: Calcium 9.4 mg/dL (8.4-10.2); Potassium 3.7 mmol/L (3.5-5.1)
[2018-12-18] MEDS ORDERED: INSULIN DETEMIR (LEVEMIR) 100 UNIT/ML SYR SQ SCH (09:00)
[2018-12-18] MEDS: INSULIN ASPART (NovoLOG) 100 UNIT/ML VIAL SQ SCH ×4 (09:10→23:06)
[2018-12-18] MEDS: hydrALAZINE HCL 50 MG TAB PO SCH ×3 (09:13→20:35)
[2018-12-18] MEDS: FUROSEMIDE 40 MG TAB PO SCH ×2 (09:14→16:33)
[2018-12-18] MEDS: INSULIN DETEMIR (LEVEMIR) 100 UNIT/ML SYR SQ SCH (09:14)
[2018-12-18] MEDS: ASPIRIN 325 MG TAB PO SCH (09:14)
[2018-12-18] MEDS: GABAPENTIN 300 MG CAP PO SCH ×3 (09:14→20:35)
[2018-12-18] MEDS: CHOLECALCIFEROL 1,000 UNIT TAB PO SCH (09:14)
[2018-12-18] MEDS: FERROUS SULFATE 325 MG TAB PO SCH (09:14)
[2018-12-18] MEDS: CEFEPIME 2 GM in SODIUM CHLORIDE 0.9% 100 ML IVPB SCH (09:14)
[2018-12-18] MEDS: MAGNESIUM OXIDE 400 MG TAB PO SCH (09:14)
[2018-12-18] MEDS: ALLOPURINOL 100 MG TAB PO SCH (09:14)
[2018-12-18] MEDS: amLODIPine 5 MG TAB PO SCH ×2 (09:14→20:35)
[2018-12-18] MEDS: SODIUM POLYSTYRENE SULFONATE 15 GM/60 ML BOTTLE PO SCH (09:14)
[2018-12-18] MEDS: SODIUM CHLORIDE 0.9% 1,000 ML IV SCH (09:21)
--- NOTE | 2018-12-18 10:22 | P.PN ---
Subjective Progress Note Date: 12/18/18 Patient seen and examined at bedside, still complain of weakness but is sitting up and getting cleaned up, patient remains afebrile with a mild leukocytosis. creatinine at 2.3 today, wound culture preliminary coming back positive for MRSA, fasting blood sugar 205. No acute events overnight Objective - Vital Signs Vital signs: Vital Signs Temp 99 F 12/18/18 08:00 Pulse 88 12/18/18 08:00 Resp 18 12/18/18 08:00 BP 152/67 12/18/18 08:00 Pulse Ox 88 L 12/18/18 08:00 Intake & Output 12/17/18 12/18/18 12/18/18 18:59 06:59 18:59 Intake Total 1661 100 236 Balance 1661 100 236 Weight 136 kg 136 kg Intake: Intake, IV Titration 100 Amount Cefepime 2 gm In Sodium 100 Chloride 0.9% 100 ml @ 200 mls/hr IVPB Q12HR [facility] Rx#:[id number] Oral 1661 236 Other: Voiding Method Urinal Incontinent # Voids 1 # Bowel Movements 1 - Exam Constitutional: No acute distress, conversant, pleasant Eyes: Anicteric sclerae, moist conjunctiva, no lid-lag, PERRLA ENMT: NC/AT,Oropharynx clear, no erythema, exudates Neck:Supple, FROM, no masses, or JVD, No carotid bruits; No thyromegaly Lungs: Clear to auscultation, Clear to percussion, Normal respiratory effort, no accessory muscle use Cardiovascular: Heart regular in rate and rhythm, No murmurs, gallops, or rubs no peripheral edema Abdominal: Soft Nontender, nom distended, no guarding, no rebound or rigidity, Normoactive bowel sounds No hepatomegaly, No splenomegaly, No palpable mass No abdominal wall hernia noted Skin: Normal temperature, left anterior leg ulcer, chronic atrophic changes Extremities:No digital cyanosis No clubbing, Pedal pulses intact and symmetrical Radial pulses intact and symmetrical Normal gait and station, No calf tenderness Psychiatric: Alert and oriented to person, place and time, Appropriate affect Intact judgement Neuro: Muscles Strength 5/5 in all 4 extremities, Sensation to light touch grossly present throughout, Cranial nerves II-XII grossly intact. No focal sensory deficits - Labs CBC & Chem 7: 12/18/18 05:52 12/18/18 05:52 Labs: Abnormal Lab Results - Last 24 Hours (Table) 12/17/18 12/17/18 12/17/18 Range/Units 11:31 16:41 20:46 WBC (3.8-10.6) k/uL RBC (4.30-5.90) m/uL Hgb (13.0-17.5) gm/dL Hct (39.0-53.0) % Neutrophils # (1.3-7.7) k/uL BUN (9-20) mg/dL Creatinine (0.66-1.25) mg/dL Glucose (74-99) mg/dL POC Glucose (mg/dL) 324 H 244 H 252 H (75-99) mg/dL 12/18/18 12/18/18 12/18/18 Range/Units 05:52 05:52 06:09 WBC 10.9 H (3.8-10.6) k/uL RBC 3.10 L (4.30-5.90) m/uL Hgb 9.1 L (13.0-17.5) gm/dL Hct 28.3 L (39.0-53.0) % Neutrophils # 8.3 H (1.3-7.7) k/uL BUN 43 H (9-20) mg/dL Creatinine 2.31 H (0.66-1.25) mg/dL Glucose 188 H (74-99) mg/dL POC Glucose (mg/dL) 205 H (75-99) mg/dL Microbiology - Last 24 Hours (Table) 12/16/18 05:18 Blood Culture - Preliminary Blood No Growth after 48 hours 12/16/18 07:50 Urine Culture - Final Urine,Catheterized 12/16/18 10:50 Gram Stain - Preliminary Leg - Left Wound Culture - Preliminary Presumptive MRSA Assessment and Plan (1) Sepsis Narrative/Plan: * Likely secondary to infected left anterior leg venous stasis ulcer * Blood cultures are still pending * Continue current regimen per ID recommendations currently on cefepime Current Visit: Yes Status: Acute Code(s): A41.9 - SEPSIS, UNSPECIFIED ORGANISM SNOMED Code(s): 38955723 (2) Cellulitis of left leg Narrative/Plan: * Preliminary wound cultures come back positive for MRSA * Continue Cubicin and cefepime * Appreciate ID recommendations Current Visit: Yes Status: Acute Code(s): L03.116 - CELLULITIS OF LEFT LOWER LIMB SNOMED Code(s): 111173770 (3) Venous stasis ulcer of left lower leg with edema of left lower leg Current Visit: Yes Status: Acute Code(s): I83.029 - VARICOSE VEINS OF LEFT LOWER EXTREMITY W ULCER OF UNSP SITE; I83.892 - VARICOSE VEINS OF L LOW EXTREM WITH OTHER COMPLICATIONS; L97.929 - NON-PRS CHRONIC ULC UNSP PRT OF L LOW LEG W UNSP SEVERITY; R60.9 - EDEMA, UNSPECIFIED SNOMED Code(s): 37999732027042277 (4) Metabolic encephalopathy Narrative/Plan: * Secondary to sepsis, encephalopathy is now resolved * CT of the head showing stable mild cerebral atrophy with no acute intracranial abnormality seen Current Visit: Yes Status: Resolved Code(s): G93.41 - METABOLIC ENCEPHALOPATHY SNOMED Code(s): 61365631 (5) CKD (chronic kidney disease) stage 3, GFR 30-59 ml/min Narrative/Plan: * Creatinine right at his baseline Current Visit: Yes Status: Chronic Code(s): N18.3 - CHRONIC KIDNEY DISEASE, STAGE 3 (MODERATE) SNOMED Code(s): 960592924 (6) Weakness Narrative/Plan: * PT consulted * Patient largely wheelchair-bound ambulates with walker with a max 1 person assist Current Visit: No Status: Acute Code(s): R53.1 - WEAKNESS SNOMED Code(s): 84676665 (7) Type 2 diabetes mellitus with hyperglycemia Narrative/Plan: * A1c 9.2 indicating poor control, continue with Accu-Cheks * Blood sugars elevated we'll increase his basal insulin 40 units * Continue sliding scale coverage Current Visit: Yes Status: Acute Code(s): E11.65 - TYPE 2 DIABETES MELLITUS WITH HYPERGLYCEMIA SNOMED Code(s): 742764601354604 Plan: * Anticipated discharge 1-2 days to SNF
[2018-12-18 11:42] LABS: Glucose,Whole Blood 257 mg/dL (75-99)
[2018-12-18] MEDS: DAPTOmycin 500 MG in SODIUM CHLORIDE 0.9% 50 ML IVPB SCH (16:38)
[2018-12-18 16:46] LABS: Glucose,Whole Blood 341 mg/dL (75-99)
--- NOTE | 2018-12-18 16:52 | P.PN ---
Subjective Progress Note Date: 12/18/18 68-year-old male who is had progressive decline of his physical status over the last several years, such that now at home apparently with increasing difficulty walking about the apartment.Must use an ambulatory aid at all times, apparently did have a significant fall several months ago and he no longer tries to ambulate any distances. His mental status is also dulled over time. At home he suddenly did not feel well with increasing fever chills and then altered mental status. Because 103 fever his brought with emergency center. Now with hydration and started antibiotic therapy he is feeling somewhat better. He knows it is a [place] which. He did not know his location last night. The patient tolerated the wound center and was having improvement to the left lower extremity that has now become erythematous warm and is developed some drainage which is new. 12/18/2018 patient is feeling considerably better today. Sitting up in the chair. He does lunch without difficulty. Discomforts have improved. He is over still very weak is having difficulties with transferring and ambulation. The drainage to the lower extremity has improved and is still somewhat uncomf ortable. Objective - Vital Signs Vital signs: Vital Signs Temp 98.9 F 12/18/18 15:00 Pulse 70 12/18/18 15:00 Resp 18 12/18/18 15:00 BP 133/60 12/18/18 15:00 Pulse Ox 96 12/18/18 15:00 Intake & Output 12/17/18 12/18/18 12/18/18 18:59 06:59 18:59 Intake Total 1661 100 457 Output Total 600 Balance 1661 100 -143 Weight 136 kg 136 kg Intake: Intake, IV Titration 100 Amount Cefepime 2 gm In Sodium 100 Chloride 0.9% 100 ml @ 200 mls/hr IVPB Q12HR [facility] Rx#:[id number] Oral 1661 457 Output: Urine 600 Other: Voiding Method Urinal Incontinent # Voids 1 # Bowel Movements 1 - Exam HEENT: Anicteric conjunctiva are pink and moist nasal mucosa grossly intact without significant lesions, there is no thrush. Neck: The neck is supple without significant lymphadenopathy or thyromegaly. Lungs: Symmetrical air entry is noted with expiratory wheezes that are scattered bronchial sounds Heart: Regular with an audible S1 and S2 soft S4 no distinct murmur click or rub PMI is nondisplaced Abdomen: Obese, Positive bowel sounds soft and nontender without palpable masses or organomegaly. There was no guarding or rebound. Extremities: The upper extremities have excellent pulses they are symmetric, no significant petechiae or telangiectasia. No splinter hemorrhages were noted. The lower extremities evidence of the bilateral lower extremity edema. Right leg he has no open ulcerations. Left leg has evidence of the more recent care. There are some punctate areas that are open with some bleeding. Scant drainage is noted. Erythema on the left lower limb is noted there is not an extensive amount of ascending pharyngitis or erythema and no significant left inguinal lymphadenopathy is noted. No other abnormal lymph nodes are noted axillary supra clavicular epitrochlear or inguinal. Neuro: Awake alert oriented to person and place and time He is able to move arms and legs on command. - Labs CBC & Chem 7: 12/18/18 05:52 12/18/18 05:52 Labs: Abnormal Lab Results - Last 24 Hours (Table) 12/17/18 12/17/18 12/18/18 Range/Units 16:41 20:46 05:52 WBC 10.9 H (3.8-10.6) k/uL RBC 3.10 L (4.30-5.90) m/uL Hgb 9.1 L (13.0-17.5) gm/dL Hct 28.3 L (39.0-53.0) % Neutrophils # 8.3 H (1.3-7.7) k/uL BUN (9-20) mg/dL Creatinine (0.66-1.25) mg/dL Glucose (74-99) mg/dL POC Glucose (mg/dL) 244 H 252 H (75-99) mg/dL 12/18/18 12/18/18 12/18/18 Range/Units 05:52 06:09 11:37 WBC (3.8-10.6) k/uL RBC (4.30-5.90) m/uL Hgb (13.0-17.5) gm/dL Hct (39.0-53.0) % Neutrophils # (1.3-7.7) k/uL BUN 43 H (9-20) mg/dL Creatinine 2.31 H (0.66-1.25) mg/dL Glucose 188 H (74-99) mg/dL POC Glucose (mg/dL) 205 H 257 H (75-99) mg/dL 12/18/18 Range/Units 16:43 WBC (3.8-10.6) k/uL RBC (4.30-5.90) m/uL Hgb (13.0-17.5) gm/dL Hct (39.0-53.0) % Neutrophils # (1.3-7.7) k/uL BUN (9-20) mg/dL Creatinine (0.66-1.25) mg/dL Glucose (74-99) mg/dL POC Glucose (mg/dL) 341 H (75-99) mg/dL Microbiology - Last 24 Hours (Table) 12/16/18 10:50 Gram Stain - Final Leg - Left Wound Culture - Final Staphylococcus aureus 12/16/18 05:18 Blood Culture - Preliminary Blood No Growth after 48 hours Laboratory Results WBC 10.9 k/uL (3.8-10.6) H 12/18/18 05:52 RBC 3.10 m/uL (4.30-5.90) L 12/18/18 05:52 Hgb 9.1 gm/dL (13.0-17.5) L 12/18/18 05:52 Hct 28.3 % (39.0-53.0) L 12/18/18 05:52 MCV 91.4 fL (80.0-100.0) 12/18/18 05:52 MCH 29.4 pg (25.0-35.0) 12/18/18 05:52 MCHC 32.2 g/dL (31.0-37.0) 12/18/18 05:52 RDW 14.7 % (11.5-15.5) 12/18/18 05:52 Plt Count 220 k/uL (150-450) 12/18/18 05:52 Neutrophils % 76 % 12/18/18 05:52 Lymphocytes % 12 % 12/18/18 05:52 Monocytes % 5 % 12/18/18 05:52 Eosinophils % 4 % 12/18/18 05:52 Basophils % 0 % 12/18/18 05:52 Neutrophils # 8.3 k/uL (1.3-7.7) H 12/18/18 05:52 Lymphocytes # 1.4 k/uL (1.0-4.8) 12/18/18 05:52 Monocytes # 0.6 k/uL (0-1.0) 12/18/18 05:52 Eosinophils # 0.4 k/uL (0-0.7) 12/18/18 05:52 Basophils # 0.0 k/uL (0-0.2) 12/18/18 05:52 PT 9.8 sec (9.0-12.0) 12/16/18 05:18 INR 0.9 (<1.2) 12/16/18 05:18 APTT 17.8 sec (22.0-30.0) L 12/16/18 05:18 Sodium 139 mmol/L (137-145) 12/18/18 05:52 Potassium 3.7 mmol/L (3.5-5.1) 12/18/18 05:52 Chloride 103 mmol/L (98-107) 12/18/18 05:52 Carbon Dioxide 29 mmol/L (22-30) 12/18/18 05:52 Anion Gap 7 mmol/L 12/18/18 05:52 BUN 43 mg/dL (9-20) H 12/18/18 05:52 Creatinine 2.31 mg/dL (0.66-1.25) H 12/18/18 05:52 Est GFR (CKD-EPI)AfAm 32 (>60 ml/min/1.73 sqM) 12/18/18 05:52 Est GFR (CKD-EPI)NonAf 28 (>60 ml/min/1.73 sqM) 12/18/18 05:52 Glucose 188 mg/dL (74-99) H 12/18/18 05:52 POC Glucose (mg/dL) 341 mg/dL (75-99) H 12/18/18 16:43 POC Glu Wallpaper [employer] ID Deloris Richard 12/18/18 16:[address] Glu mg/dL 217 12/16/18 05:18 Hemoglobin A1c 9.2 % (4.0-6.0) H 12/16/18 05:18 Lactic Ac Sepsis Rflx Y 12/16/18 06:11 Plasma Lactic Acid Anthony 1.3 mmol/L (0.7-2.0) 12/16/18 09:30 Calcium 9.4 mg/dL (8.4-10.2) 12/18/18 05:52 Total Bilirubin 0.4 mg/dL (0.2-1.3) 12/16/18 05:18 AST 26 U/L (17-59) 12/16/18 05:18 ALT 15 U/L (21-72) L 12/16/18 05:18 Alkaline Phosphatase 110 U/L (38-126) 12/16/18 05:18 Troponin I 0.014 ng/mL (0.000-0.034) 12/16/18 05:18 Total Protein 7.3 g/dL (6.3-8.2) 12/16/18 05:18 Albumin 4.4 g/dL (3.5-5.0) 12/16/18 05:18 Urine Color Yellow 12/16/18 07:50 Urine Appearance Clear (Clear) 12/16/18 07:50 Urine pH 5.5 (5.0-8.0) 12/16/18 07:50 Ur Specific [place] 1.010 (1.001-1.035) 12/16/18 07:50 Urine Protein 2+ (Negative) H 12/16/18 07:50 Urine Glucose (UA) 1+ (Negative) H 12/16/18 07:50 Urine Ketones Negative (Negative) 12/16/18 07:50 Urine Blood Negative (Negative) 12/16/18 07:50 Urine Nitrite Negative (Negative) 12/16/18 07:50 Urine Bilirubin Negative (Negative) 12/16/18 07:50 Urine Urobilinogen <2.0 mg/dL (<2.0) 12/16/18 07:50 Ur Leukocyte Esterase Negative (Negative) 12/16/18 07:50 Urine RBC 1 /hpf (0-5) 12/16/18 07:50 Urine WBC 1 /hpf (0-5) 12/16/18 07:50 Ur Squamous Epith Cells <1 /hpf (0-4) 12/16/18 07:50 Urine Mucus Rare /hpf (None) H 12/16/18 07:50 Microbiology 12/16/18 10:50 Leg - Left Gram Stain - Final 12/16/18 10:50 Leg - Left Wound Culture - Final Staphylococcus aureus 12/16/18 05:18 Blood Blood Culture - Preliminary No Growth after 48 hours 12/16/18 07:50 Urine,Catheterized Urine Culture - Final Assessment and Plan (1) Fever Current Visit: Yes Status: Acute Code(s): R50.9 - FEVER, UNSPECIFIED SNOMED Code(s): 093504038 (2) Cellulitis of left leg Narrative/Plan: 68-year-old male presents the emergency center under the direction of his because of his altered mental status and fever of 103. The patient has had multiple prior hospitalizations with similar bouts of infection could have been from several sites including the urine as well as cellulitis. At this time workup is in process. Appears to have evidence of a cellulitis of the left l ower extremity is etiology of his current sepsis. Wound cultures are in process. Blood cultures are also in progress. Given his history vancomycin and piperacillin tazobactam are being utilized until further culture data is available. He has significant leukocytosis related from his sepsis. Local wound care to the limb has been provided with Vaseline gauze and rolled gauze. Elevate the limb while he is at rest. 12/17/2018 the patient is feeling some better today. The laboratories revealing evidence of likely MRSA at the wound site of the leg. With this vancomycin will be added and continue local wound care. Final cultures are pending which will help us determine the course of antibiotic therapy the time of discharge. Unclear if he will go to rehab after his hospitalization. 12/18/2018 the patient continues to feel better. The drainage from the leg ulceration has improved. While in hospital she is more cooperative with leg elevation that he is at home. We'll continue with local wound care, we'll add Coban to help secure the dressing. Laboratories no verified that the pathogen is not MRSA, MSSA isolated. Antibiotic therapy is now streamlined to Ancef high dose. This will be continued in the rehab setting. Current Visit: Yes Status: Acute Code(s): L03.116 - CELLULITIS OF LEFT LOWER LIMB SNOMED Code(s): 948171440 (3) Venous stasis ulcer of left lower leg with edema of left lower leg Current Visit: Yes Status: Acute Code(s): I83.029 - VARICOSE VEINS OF LEFT LOWER EXTREMITY W ULCER OF UNSP SITE; I83.892 - VARICOSE VEINS OF L LOW EXTREM WITH OTHER COMPLICATIONS; L97.929 - NON-PRS CHRONIC ULC UNSP PRT OF L LOW LEG W UNSP SEVERITY; R60.9 - EDEMA, UNSPECIFIED SNOMED Code(s): 56135941113971663
[2018-12-18 21:03] LABS: Glucose,Whole Blood 342 mg/dL (75-99)
[2018-12-18] MEDS: ceFAZolin IN SWFI 2 GM/20 ML SYRINGE IVP SCH (23:07)
[2018-12-19 06:09] LABS: Glucose,Whole Blood 156 mg/dL (75-99)
[2018-12-19 06:58] LABS: Basophils % (A) 0 %; Eosinophils # (A) 0.4 k/uL (0-0.7); Eosinophils % (A) 5 %; HCT 29.1 % (39.0-53.0); HGB 9.6 gm/dL (13.0-17.5); Lymphocytes # (A) 1.4 k/uL (1.0-4.8); Lymphocytes % (A) 14 %; MCH 30.1 pg (25.0-35.0); MCV 91.1 fL (80.0-100.0); Mean Platelet Volume 7.7; Monocytes # (A) 0.6 k/uL (0-1.0); Monocytes % (A) 6 %; Neutrophils # (A) 7.3 k/uL (1.3-7.7); Neutrophils % (A) 73 %; Platelet Count 226 k/uL (150-450); RBC 3.19 m/uL (4.30-5.90); RDW 15.7 % (11.5-15.5); WBC 9.9 k/uL (3.8-10.6)
[2018-12-19 07:21] LABS: Calcium 9.7 mg/dL (8.4-10.2); Potassium 3.9 mmol/L (3.5-5.1)
[2018-12-19] MEDS: ALLOPURINOL 100 MG TAB PO SCH (08:34)
[2018-12-19] MEDS: ASPIRIN 325 MG TAB PO SCH (08:34)
[2018-12-19] MEDS: CHOLECALCIFEROL 1,000 UNIT TAB PO SCH (08:34)
[2018-12-19] MEDS: amLODIPine 5 MG TAB PO SCH ×2 (08:35→20:48)
[2018-12-19] MEDS: MAGNESIUM OXIDE 400 MG TAB PO SCH (08:35)
[2018-12-19] MEDS: FUROSEMIDE 40 MG TAB PO SCH ×2 (08:35→17:37)
[2018-12-19] MEDS: FERROUS SULFATE 325 MG TAB PO SCH (08:35)
[2018-12-19] MEDS: INSULIN ASPART (NovoLOG) 100 UNIT/ML VIAL SQ SCH ×4 (08:40→20:48)
[2018-12-19] MEDS: SODIUM POLYSTYRENE SULFONATE 15 GM/60 ML BOTTLE PO SCH (08:41)
[2018-12-19] MEDS: hydrALAZINE HCL 50 MG TAB PO SCH ×3 (08:44→20:48)
[2018-12-19] MEDS: GABAPENTIN 300 MG CAP PO SCH ×3 (08:44→20:48)
[2018-12-19] MEDS: HEPARIN SODIUM,PORCINE 5,000 UNIT/ML 1 ML VIAL SQ SCH ×3 (08:44→23:05)
[2018-12-19] MEDS: INSULIN DETEMIR (LEVEMIR) 100 UNIT/ML SYR SQ SCH (08:44)
[2018-12-19] MEDS: ceFAZolin IN SWFI 2 GM/20 ML SYRINGE IVP SCH ×3 (11:03→23:05)
[2018-12-19] MEDS: SODIUM CHLORIDE 0.9% 1,000 ML IV SCH (11:23)
[2018-12-19 12:19] LABS: Glucose,Whole Blood 188 mg/dL (75-99)
--- NOTE | 2018-12-19 16:13 | P.PN ---
Subjective Progress Note Date: 12/19/18 Principal diagnosis: cellulitis patient was seen and examined. No acute events overnight. Patient reports severe weakness, states that he is barely able to stand and cannot ambulate much. States that this weakness started after he was hospitalized. He denies any nausea or vomiting. No fever or chills. Does complain of heartburn. Denies any chest pain, shortness of breath or palpitations. Objective - Vital Signs Vital signs: Vital Signs Temp 97.6 F 12/19/18 14:01 Pulse 67 12/19/18 14:01 Resp 16 12/19/18 15:08 BP 129/53 12/19/18 14:01 Pulse Ox 94 L 12/19/18 14:01 Intake & Output 12/18/18 12/19/18 12/19/18 18:59 06:59 18:59 Intake Total 457 770 Output Total 600 400 Balance -143 370 Intake: Oral 457 770 Output: Urine 600 400 Other: Voiding Method Urinal Urinal Incontinent Incontinent # Voids 1 1 - Exam General: [non toxic], [no distress], [appears at stated age] Derm: [warm], [dry] Head: [atraumatic], [normocephalic], [symmetric] Eyes: [EOMI], [no lid lag], [anicteric sclera] Mouth: [no lip lesion], [mucus membranes moist] Cardiovascular: [S1S2 reg], [no murmur], [positive DP pulse bilateral], Lungs: [CTA bilateral], [no rhonchi, no rales] , [no accessory muscle use] Abdominal: [soft], [ nontender to palpation], [no guarding], [no appreciable organomegaly] Ext: [no gross muscle atrophy], [no edema], [left lower extremity wrapped, dressing clean dry and intact] Neuro: [no focal neuro deficits] Psych: [Alert], [oriented], [appropriate affect] - Labs CBC & Chem 7: 12/19/18 05:50 12/19/18 05:50 Labs: Abnormal Lab Results - Last 24 Hours (Table) 12/18/18 12/18/18 12/19/18 Range/Units 16:43 21:01 05:50 RBC 3.19 L (4.30-5.90) m/uL Hgb 9.6 L (13.0-17.5) gm/dL Hct 29.1 L (39.0-53.0) % RDW 15.7 H (11.5-15.5) % Carbon Dioxide (22-30) mmol/L BUN (9-20) mg/dL Creatinine (0.66-1.25) mg/dL Glucose (74-99) mg/dL POC Glucose (mg/dL) 341 H 342 H (75-99) mg/dL 12/19/18 12/19/18 12/19/18 Range/Units 05:50 06:08 12:17 RBC (4.30-5.90) m/uL Hgb (13.0-17.5) gm/dL Hct (39.0-53.0) % RDW (11.5-15.5) % Carbon Dioxide 31 H (22-30) mmol/L BUN 43 H (9-20) mg/dL Creatinine 2.25 H (0.66-1.25) mg/dL Glucose 135 H (74-99) mg/dL POC Glucose (mg/dL) 156 H 188 H (75-99) mg/dL Microbiology - Last 24 Hours (Table) 12/16/18 05:18 Blood Culture - Preliminary Blood No Growth after 72 hours 12/16/18 10:50 Gram Stain - Final Leg - Left Wound Culture - Final Staphylococcus aureus Assessment and Plan Assessment: Assessment and Plan Sepsis likely secondary to cellulitis Cellulitis of the left lower extremity Venous stasis ulcer of the left lower extremity Chronic kidney disease Type 2 diabetes mellitus with hyperglycemia Initially met sepsis criteria (leukocytosis of 23.5, Tmax 103.1F, HR > 100 on admission, source of infection). Sepsis currently resolved. Chest x-ray showed no acute findings. Urinalysis is negative for leukocyte esterase or nitrates. Lactic acid 2.3, 1.3 on repeat. Left lower extremity wound culture growing out methicillin sensitive staph aureus. Urine culture negative. Blood culture negative at 72 hours. Plans: Tylenol as needed for fever. Continue cefazolin 2 g IV every 8 hours. Follow blood cultures. Follow ID recommendations for antibiotics on discharge. Plan: Management as above. Plan: Management as above. Local wound care. Follow-up PT refill. Creatinine 2.25, appears at baseline. Plans: Avoid nephrotoxins. Monitor and replace electrolytes. Daily BMP. [id number] glucose 188. Plans: Insulin sliding scope. Levemir 40 units at bedtime. Regular Accu-Cheks. Hypoglycemic precautions. Patient has concerns regarding going home and being able to ambulate and provide local wound care. Will reconsult PT for further recommendations. Follow social work. DC tomorrow.
[2018-12-19 16:52] LABS: Glucose,Whole Blood 174 mg/dL (75-99)
[2018-12-19] MEDS ORDERED: CALCIUM CARBONATE 500 MG CHEWABLE PO PRN (17:43)
[2018-12-19] MEDS ORDERED: ONDANSETRON 4 MG/2 ML VIAL IVP PRN (18:01)
[2018-12-19] MEDS: FAMOTIDINE 20 MG/2 ML VIAL IV SCH ×2 (18:21→20:40)
[2018-12-19 20:04] LABS: Glucose,Whole Blood 183 mg/dL (75-99)
--- NOTE | 2018-12-20 00:46 | P.PN ---
Subjective Progress Note Date: 12/19/18 68-year-old male who is had progressive decline of his physical status over the last several years, such that now at home apparently with increasing difficulty walking about the apartment.Must use an ambulatory aid at all times, apparently did have a significant fall several months ago and he no longer tries to ambulate any distances. His mental status is also dulled over time. At home he suddenly did not feel well with increasing fever chills and then altered mental status. Because 103 fever his brought with emergency center. Now with hydration and started antibiotic therapy he is feeling somewhat better. He knows it is a [facility] Butler which. He did not know his location last night. The patient tolerated the wound center and was having improvement to the left lower extremity that has now become erythematous warm and is developed some drainage which is new. 12/18/2018 patient is feeling considerably better today. Sitting up in the chair. He does lunch without difficulty. Discomforts have improved. He is over still very weak is having difficulties with transferring and ambulation. The drainage to the lower extremity has improved and is still somewhat uncomf ortable. 12/19/2018 patient is still weak and not feeling very well. Case is discussed with the primary service and physical therapy consult was requested. The lower extremities are improving with current cefazolin therapy. Discharge plans we will determine next set of therapy. Objective - Vital Signs Vital signs: Vital Signs Temp 97.0 F L 12/19/18 20:00 Pulse 65 12/19/18 20:00 Resp 14 12/19/18 20:00 BP 138/70 12/19/18 20:00 Pulse Ox 97 12/19/18 20:00 Intake & Output 12/19/18 12/19/18 12/20/18 06:59 18:59 06:59 Intake Total 1310 Output Total 500 Balance 810 Intake: Oral 1310 Output: Urine 400 Emesis 100 Other: Voiding Method Urinal Urinal Urinal Incontinent Incontinent Incontinent # Voids 1 1 1 - Exam HEENT: Anicteric conjunctiva are pink and moist nasal mucosa grossly intact without significant lesions, there is no thrush. Neck: The neck is supple without significant lymphadenopathy or thyromegaly. Lungs: Symmetrical air entry is noted with expiratory wheezes that are scattered bronchial sounds Heart: Regular with an audible S1 and S2 soft S4 no distinct murmur click or rub PMI is nondisplaced Abdomen: Obese, Positive bowel sounds soft and nontender without palpable masses or organomegaly. There was no guarding or rebound. Extremities: The upper extremities have excellent pulses they are symmetric, no significant petechiae or telangiectasia. No splinter hemorrhages were noted. The lower extremities evidence of the bilateral lower extremity edema. Right leg he has no open ulcerations. Left leg has evidence of the more recent care. There are some punctate areas that are open with some bleeding. Scant drainage is noted. Erythema on the left lower limb is noted there is not an extensive amount of ascending pharyngitis or erythema and no significant left inguinal lymphadenopathy is noted. No other abnormal lymph nodes are noted axillary supra clavicular epitrochlear or inguinal. Neuro: Awake alert oriented to person and place and time He is able to move arms and legs on command. - Labs CBC & Chem 7: 12/19/18 05:50 12/19/18 05:50 Labs: Abnormal Lab Results - Last 24 Hours (Table) 12/19/18 12/19/18 12/19/18 Range/Units 05:50 05:50 06:08 RBC 3.19 L (4.30-5.90) m/uL Hgb 9.6 L (13.0-17.5) gm/dL Hct 29.1 L (39.0-53.0) % RDW 15.7 H (11.5-15.5) % Carbon Dioxide 31 H (22-30) mmol/L BUN 43 H (9-20) mg/dL Creatinine 2.25 H (0.66-1.25) mg/dL Glucose 135 H (74-99) mg/dL POC Glucose (mg/dL) 156 H (75-99) mg/dL 12/19/18 12/19/18 12/19/18 Range/Units 12:17 16:50 20:02 RBC (4.30-5.90) m/uL Hgb (13.0-17.5) gm/dL Hct (39.0-53.0) % RDW (11.5-15.5) % Carbon Dioxide (22-30) mmol/L BUN (9-20) mg/dL Creatinine (0.66-1.25) mg/dL Glucose (74-99) mg/dL POC Glucose (mg/dL) 188 H 174 H 183 H (75-99) mg/dL Microbiology - Last 24 Hours (Table) 12/16/18 05:18 Blood Culture - Preliminary Blood No Growth after 72 hours Laboratory Results WBC 9.9 k/uL (3.8-10.6) 12/19/18 05:50 RBC 3.19 m/uL (4.30-5.90) L 12/19/18 05:50 Hgb 9.6 gm/dL (13.0-17.5) L 12/19/18 05:50 Hct 29.1 % (39.0-53.0) L 12/19/18 05:50 MCV 91.1 fL (80.0-100.0) 12/19/18 05:50 MCH 30.1 pg (25.0-35.0) 12/19/18 05:50 MCHC 33.0 g/dL (31.0-37.0) 12/19/18 05:50 RDW 15.7 % (11.5-15.5) H 12/19/18 05:50 Plt Count 226 k/uL (150-450) 12/19/18 05:50 Neutrophils % 73 % 12/19/18 05:50 Lymphocytes % 14 % 12/19/18 05:50 Monocytes % 6 % 12/19/18 05:50 Eosinophils % 5 % 12/19/18 05:50 Basophils % 0 % 12/19/18 05:50 Neutrophils # 7.3 k/uL (1.3-7.7) 12/19/18 05:50 Lymphocytes # 1.4 k/uL (1.0-4.8) 12/19/18 05:50 Monocytes # 0.6 k/uL (0-1.0) 12/19/18 05:50 Eosinophils # 0.4 k/uL (0-0.7) 12/19/18 05:50 Basophils # 0.0 k/uL (0-0.2) 12/19/18 05:50 PT 9.8 sec (9.0-12.0) 12/16/18 05:18 INR 0.9 (<1.2) 12/16/18 05:18 APTT 17.8 sec (22.0-30.0) L 12/16/18 05:18 Sodium 141 mmol/L (137-145) 12/19/18 05:50 Potassium 3.9 mmol/L (3.5-5.1) 12/19/18 05:50 Chloride 102 mmol/L (98-107) 12/19/18 05:50 Carbon Dioxide 31 mmol/L (22-30) H 12/19/18 05:50 Anion Gap 8 mmol/L 12/19/18 05:50 BUN 43 mg/dL (9-20) H 12/19/18 05:50 Creatinine 2.25 mg/dL (0.66-1.25) H 12/19/18 05:50 Est GFR (CKD-EPI)AfAm 33 (>60 ml/min/1.73 sqM) 12/19/18 05:50 Est GFR (CKD-EPI)NonAf 29 (>60 ml/min/1.73 sqM) 12/19/18 05:50 Glucose 135 mg/dL (74-99) H 12/19/18 05:50 POC Glucose (mg/dL) 183 mg/dL (75-99) H 12/19/18 20:02 POC Glu Deputy Attorney General ID Sona Vázquez 12/19/18 20:[address] Glu mg/dL 217 12/16/18 05:18 Hemoglobin A1c 9.2 % (4.0-6.0) H 12/16/18 05:18 Lactic Ac Sepsis Rflx Y 12/16/18 06:11 Plasma Lactic Acid Anthony 1.3 mmol/L (0.7-2.0) 12/16/18 09:30 Calcium 9.7 mg/dL (8.4-10.2) 12/19/18 05:50 Total Bilirubin 0.4 mg/dL (0.2-1.3) 12/16/18 05:18 AST 26 U/L (17-59) 12/16/18 05:18 ALT 15 U/L (21-72) L 12/16/18 05:18 Alkaline Phosphatase 110 U/L (38-126) 12/16/18 05:18 Troponin I 0.014 ng/mL (0.000-0.034) 12/16/18 05:18 Total Protein 7.3 g/dL (6.3-8.2) 12/16/18 05:18 Albumin 4.4 g/dL (3.5-5.0) 12/16/18 05:18 Urine Color Yellow 12/16/18 07:50 Urine Appearance Clear (Clear) 12/16/18 07:50 Urine pH 5.5 (5.0-8.0) 12/16/18 07:50 Ur Specific [place] 1.010 (1.001-1.035) 12/16/18 07:50 Urine Protein 2+ (Negative) H 12/16/18 07:50 Urine Glucose (UA) 1+ (Negative) H 12/16/18 07:50 Urine Ketones Negative (Negative) 12/16/18 07:50 Urine Blood Negative (Negative) 12/16/18 07:50 Urine Nitrite Negative (Negative) 12/16/18 07:50 Urine Bilirubin Negative (Negative) 12/16/18 07:50 Urine Urobilinogen <2.0 mg/dL (<2.0) 12/16/18 07:50 Ur Leukocyte Esterase Negative (Negative) 12/16/18 07:50 Urine RBC 1 /hpf (0-5) 12/16/18 07:50 Urine WBC 1 /hpf (0-5) 12/16/18 07:50 Ur Squamous Epith Cells <1 /hpf (0-4) 12/16/18 07:50 Urine Mucus Rare /hpf (None) H 12/16/18 07:50 Microbiology Entire Visit 12/16/18 05:18 Blood Blood Culture - Preliminary No Growth after 72 hours 12/16/18 10:50 Leg - Left Gram Stain - Final 12/16/18 10:50 Leg - Left Wound Culture - Final Staphylococcus aureus 12/16/18 07:50 Urine,Catheterized Urine Culture - Final Assessment and Plan (1) Fever Current Visit: Yes Status: Acute Code(s): R50.9 - FEVER, UNSPECIFIED SNOMED Code(s): 694290207 (2) Cellulitis of left leg Narrative/Plan: 68-year-old male presents the emergency center under the direction of his because of his altered mental status and fever of 103. The patient has had multiple prior hospitalizations with similar bouts of infection could have been from several sites including the urine as well as cellulitis. At this time workup is in process. Appears to have evidence of a cellulitis of the left lower extremity is etiology of his current sepsis. Wound cultures are in process. Blood cultures are also in progress. Given his history vancomycin and piperacillin tazobactam are being utilized until further culture data is available. He has significant leukocytosis related from his sepsis. Local wound care to the limb has been provided with Vaseline gauze and rolled gauze. Elevate the limb while he is at rest. 12/17/2018 the patient is feeling some better today. The laboratories revealing evidence of likely MRSA at the wound site of the leg. With this vancomycin will be added and continue local wound care. Final cultures are pending which will help us determine the course of antibiotic therapy the time of discharge. Unclear if he will go to rehab after his hospitalization. 12/18/2018 the patient continues to feel better. The drainage from the leg ulceration has improved. While in hospital she is more cooperative with leg elevation that he is at home. We'll continue with local wound care, we'll add Coban to help secure the dressing. Laboratories no verified that the pathogen is not MRSA, MSSA isolated. Antibiotic therapy is now streamlined to Ancef high dose. This will be continued in the rehab setting. 12/19/2018 patient has had some improvement. Still very weak. There are great concern as to his ability to function the home setting. [facility]. If there is further improvement cefazolin can be transitioned to cephalexin to complete 10 days of therapy. Current Visit: Yes Status: Acute Code(s): L03.116 - CELLULITIS OF LEFT LOWER LIMB SNOMED Code(s): 348056448 (3) Venous stasis ulcer of left lower leg with edema of left lower leg Current Visit: Yes Status: Acute Code(s): I83.029 - VARICOSE VEINS OF LEFT LOWER EXTREMITY W ULCER OF UNSP SITE; I83.892 - VARICOSE VEINS OF L LOW EXTREM W ITH OTHER COMPLICATIONS; L97.929 - NON-PRS CHRONIC ULC UNSP PRT OF L LOW LEG W UNSP SEVERITY; R60.9 - EDEMA, UNSPECIFIED SNOMED Code(s): 98600545021778761
[2018-12-20 07:09] LABS: Glucose,Whole Blood 206 mg/dL (75-99)
[2018-12-20] MEDS: FERROUS SULFATE 325 MG TAB PO SCH (07:26)
[2018-12-20] MEDS: CHOLECALCIFEROL 1,000 UNIT TAB PO SCH (07:26)
[2018-12-20] MEDS: MAGNESIUM OXIDE 400 MG TAB PO SCH (07:26)
[2018-12-20] MEDS: FUROSEMIDE 40 MG TAB PO SCH (07:27)
[2018-12-20] MEDS: ASPIRIN 325 MG TAB PO SCH (07:27)
[2018-12-20] MEDS: amLODIPine 5 MG TAB PO SCH (07:27)
[2018-12-20] MEDS: FAMOTIDINE 20 MG/2 ML VIAL IV SCH (07:27)
[2018-12-20] MEDS: HEPARIN SODIUM,PORCINE 5,000 UNIT/ML 1 ML VIAL SQ SCH (07:27)
[2018-12-20] MEDS: ALLOPURINOL 100 MG TAB PO SCH (07:27)
[2018-12-20] MEDS: GABAPENTIN 300 MG CAP PO SCH (07:27)
[2018-12-20] MEDS: hydrALAZINE HCL 50 MG TAB PO SCH (07:27)
[2018-12-20] MEDS: INSULIN ASPART (NovoLOG) 100 UNIT/ML VIAL SQ SCH ×2 (07:28→12:39)
[2018-12-20] MEDS: SODIUM POLYSTYRENE SULFONATE 15 GM/60 ML BOTTLE PO SCH (07:28)
[2018-12-20] MEDS: INSULIN DETEMIR (LEVEMIR) 100 UNIT/ML SYR SQ SCH (07:28)
[2018-12-20] MEDS: ceFAZolin IN SWFI 2 GM/20 ML SYRINGE IVP SCH (08:07)
[2018-12-20] MEDS: SODIUM CHLORIDE 0.9% 1,000 ML IV SCH (08:07)
--- NOTE | 2018-12-20 08:49 | P.DS ---
Providers Date of admission: 12/16/18 07:05 Expected date of discharge: 12/20/18 Attending physician: Compa Valdez MD Consults: 12/16/18 09:17 Consult Physician Routine Consulting Provider: Kris Campuzano Reason/Comments: sepsis Do you want consulting provider notified?: Yes Primary care physician: [facility] [[email or web address] Course: The patient is a 68-year-old male with a past medical history of diastolic CHF, coronary artery disease with stenting in 2005, COPD, type 2 diabetes, hypertension, hyperlipidemia, chronic kidney disease stage III, recurrent chronic lower extremity wound secondary to chronic stasis venous ulcers who presents to the ER via EMS with his Lisa. The patient is somnolent but arousable, most of the history is obtained from his Lisa was present at bedside. Apparently the patient was in his normal state of health yesterday and then subsequently having rigors and chills and night sweats last night and then became increasingly confused and disoriented to self and location prompting his to bring him to the ED. his symptoms are thought to be secondary to sepsis from cellulitis. Patient initially met septic criteria with a leukocytosis of 23.5, T-max of 103.1 Fahrenheit in a heart rate greater than 100 on admission. His vital signs continuously improved throughout admission and was within normal limits on discharge. Chest x-ray showed no acute findings. Urinalysis was negative for leukocyte esterase or nitrites. Lactic acid was initially 2.3 and 1.3 on repeat. Patient had a left lower extremity wound which was cultured and grew out methicillin sensitive staph aureus. Urine culture was negative. Blood cultures are negative at 72 hours. Infectious disease was consulted and recommended discharging on a cephalosporin. Otherwise, his home medications were resumed for type 2 diabetes mellitus. His blood sugars were controlled with insulin sliding scale. Patient address some concerns about going home and the ability to ambulate and provide local wound care. Physical therapy was reconsulted for possible placement into rehab. Patient was seen and examined. No acute events overnight. Patient reports considerable weakness since being hospitalized. He denies any fever or chills. No chest pain, shortness of breath or palpitations. Patient does complain of some indigestion overnight, one episode of nonbilious nonbloody vomiting. General: [non toxic], [no distress], [appears at stated age] Derm: [warm], [dry] Head: [atraumatic], [normocephalic], [symmetric] Eyes: [EOMI], [no lid lag], [anicteric sclera] Mouth: [no lip lesion], [mucus membranes moist] Cardiovascular: [S1S2 reg], [no murmur], [positive DP pulse bilateral], Lungs: [CTA bilateral], [no rhonchi, no rales] , [no accessory muscle use] Abdominal: [soft], [ nontender to palpation], [no guarding], [no appreciable organomegaly] Ext: [no gross muscle atrophy], [no edema], [left lower extremity wrapped, dressing clean dry and intact] Neuro: [no focal neuro deficits] Psych: [Alert], [oriented], [appropriate affect] Assessment and Plan Sepsis likely secondary to cellulitis Cellulitis of the left lower extremity Venous stasis ulcer of the left lower extremity Chronic kidney disease Type 2 diabetes mellitus with hyperglycemia Initially met sepsis criteria (leukocytosis of 23.5, Tmax 103.1F, HR > 100 on admission, source of infection). Sepsis currently resolved. Chest x-ray showed no acute findings. Urinalysis is negative for leukocyte esterase or nitrates. Lactic acid 2.3, 1.3 on repeat. Left lower extremity wound culture growing out methicillin sensitive staph aureus. Urine culture negative. Blood culture negative at 96 hours. Plans: Tylenol as needed for fever. Continue cefazolin 2 g IV every 8 hours. Follow blood cultures. Follow ID recommendations for antibiotics on discharge. Plan: Management as above. Plan: Management as above. Local wound care. Follow-up PT refill. Creatinine 2.25, appears at baseline. Plans: Avoid nephrotoxins. Monitor and replace electrolytes. Daily BMP. Lxhux-[id number] glucose 206. Plans: Insulin sliding scope. Levemir 40 units at bedtime. Regular Accu-Cheks. Hypoglycemic precautions. Patient has concerns regarding going home and being able to ambulate and provide local wound care. We will reconsult PT for further recommendations. Likely DC today. Pertinent Studies: brain CT, chest x-ray Patient Condition at Discharge: Stable Plan - Discharge Summary New Discharge Prescriptions: New Cephalexin [Keflex] 500 mg PO Q8HR #30 cap Continue Cholecalciferol [Vitamin D3 (25 Mcg = 1000 Iu)] 5,000 unit PO DAILY Magnesium Oxide [Mag-Ox] 250 mg PO DAILY Allopurinol [Zyloprim] 100 mg PO DAILY Gabapentin [Neurontin] 300 mg PO TID Simvastatin [Zocor] 40 mg PO HS Fish Oil/Dha/Epa [Fish Oil 1,200 mg Fish Oil] 1 cap PO DAILY Ferrous Sulfate [Iron (65 MG Elemental)] 325 mg PO DAILY hydrALAZINE HCL [Apresoline] 100 mg PO TID amLODIPine [Norvasc] 5 mg PO BID Aspirin 325 mg PO DAILY HYDROcodone/APAP 10-325MG [[place] 10-325] 1 tab PO TID PRN #20 tab PRN Reason: Pain Insulin Glargine [Lantus] 30 unit SQ DAILY Furosemide [Lasix] 40 mg PO BID Calcitriol 0.25 mcg PO Q7D Sodium Polystyrene Sulfon/Sorb [Kionex 15 gm/60 ml Suspension] 5 gm PO DAILY Discharge Medication List Allopurinol [Zyloprim] 100 mg PO DAILY 04/22/15 [History] Cholecalciferol [Vitamin D3 (25 Mcg = 1000 Iu)] 5,000 unit PO DAILY 04/22/15 [History] Gabapentin [Neurontin] 300 mg PO TID 04/22/15 [History] Magnesium Oxide [Mag-Ox] 250 mg PO DAILY 04/22/15 [History] Fish Oil/Dha/Epa [Fish Oil 1,200 mg Fish Oil] 1 cap PO DAILY 09/06/15 [History] Simvastatin [Zocor] 40 mg PO HS 09/06/15 [History] Ferrous Sulfate [Iron (65 MG Elemental)] 325 mg PO DAILY 10/23/15 [History] hydrALAZINE HCL [Apresoline] 100 mg PO TID 05/04/16 [History] Aspirin 325 mg PO DAILY 08/27/17 [History] amLODIPine [Norvasc] 5 mg PO BID 08/27/17 [History] HYDROcodone/APAP 10-325MG [[place] 10-325] 1 tab PO TID PRN #20 tab 09/06/17 [Rx] Insulin Glargine [Lantus] 30 unit SQ DAILY 09/14/18 [History] Furosemide [Lasix] 40 mg PO BID 10/21/18 [History] Calcitriol 0.25 mcg PO Q7D 12/16/18 [History] Sodium Polystyrene Sulfon/Sorb [Kionex 15 gm/60 ml Suspension] 5 gm PO DAILY 12/16/18 [History] Cephalexin [Keflex] 500 mg PO Q8HR #30 cap 12/19/18 [Rx] Follow up Appointment(s)/Referral(s): Papo Ford MD [Primary Care Provider] - 1-2 days Kris Campuzano MD [STAFF PHYSICIAN] - 2 Weeks Patient Instructions/Handouts: Cellulitis (DC) Activity/Diet/Wound Care/Special Instructions: diet: Diabetic Follow-up PCP within 1-2 days of discharge. Follow-up at the wound clinic within 2 weeks of discharge. Please take all medications as advised. Discharge Disposition: HOME SELF-CARE
[2018-12-20 11:35] LABS: Glucose,Whole Blood 228 mg/dL (75-99)
[2018-12-20 11:57] LABS: Basophils % (A) 0 %; Eosinophils # (A) 0.1 k/uL (0-0.7); Eosinophils % (A) 1 %; HCT 29.4 % (39.0-53.0); HGB 9.4 gm/dL (13.0-17.5); Lymphocytes # (A) 1.6 k/uL (1.0-4.8); Lymphocytes % (A) 14 %; MCH 29.9 pg (25.0-35.0); MCV 93.6 fL (80.0-100.0); Mean Platelet Volume 7.2; Monocytes # (A) 0.5 k/uL (0-1.0); Monocytes % (A) 5 %; Neutrophils # (A) 8.3 k/uL (1.3-7.7); Neutrophils % (A) 76 %; Platelet Count 263 k/uL (150-450); RBC 3.15 m/uL (4.30-5.90); WBC 10.8 k/uL (3.8-10.6)
[2018-12-20 12:01] LABS: Calcium 9.5 mg/dL (8.4-10.2); Potassium 4.2 mmol/L (3.5-5.1)
[2018-12-20 14:00] VITALS: BP 125/64; PULSE 64; RESP 16; TEMP 98
[2018-12-21] MEDS ORDERED: FAMOTIDINE 20 MG TAB PO SCH (09:00)
== END 2018-12-20 14:22 | DRG 871 ==
LOC: EC 05:07 → 3NMEDONC 07:05 → 3SCARD 07:53 → 4MS4W 12-19 11:22
PROVIDERS: ADMIT Family Medicine; ATTEND Family Medicine
DX: A41.9 Sepsis, unspecified organism (principal); G93.41 Metabolic encephalopathy; I13.0 Hypertensive heart and chronic kidney disease with heart failure and stage 1 through stage 4 chronic kidney disease, or unspecified chronic kidney disease; I50.32 Chronic diastolic (congestive) heart failure; L03.116 Cellulitis of left lower limb; B95.61 Methicillin susceptible Staphylococcus aureus infection as the cause of diseases classified elsewhere; E11.22 Type 2 diabetes mellitus with diabetic chronic kidney disease; E11.42 Type 2 diabetes mellitus with diabetic polyneuropathy; E11.65 Type 2 diabetes mellitus with hyperglycemia; J44.9 Chronic obstructive pulmonary disease, unspecified; N18.3 Chronic kidney disease, stage 3 (moderate); R32 Unspecified urinary incontinence; E78.5 Hyperlipidemia, unspecified; G47.33 Obstructive sleep apnea (adult) (pediatric); I25.10 Atherosclerotic heart disease of native coronary artery without angina pectoris; I87.2 Venous insufficiency (chronic) (peripheral); K42.9 Umbilical hernia without obstruction or gangrene; M10.9 Gout, unspecified; M19.90 Unspecified osteoarthritis, unspecified site; K30 Functional dyspepsia; Z79.4 Long term (current) use of insulin; Z79.82 Long term (current) use of aspirin; Z79.899 Other long term (current) drug therapy; Z88.6 Allergy status to analgesic agent; Z98.42 Cataract extraction status, left eye; Z98.41 Cataract extraction status, right eye; Z96.1 Presence of intraocular lens; Z99.3 Dependence on wheelchair; Z95.5 Presence of coronary angioplasty implant and graft; Z87.891 Personal history of nicotine dependence; Z88.1 Allergy status to other antibiotic agents; Z88.2 Allergy status to sulfonamides; Z86.14 Personal history of Methicillin resistant Staphylococcus aureus infection; Z90.49 Acquired absence of other specified parts of digestive tract; Z83.3 Family history of diabetes mellitus; Z82.49 Family history of ischemic heart disease and other diseases of the circulatory system; Z82.5 Family history of asthma and other chronic lower respiratory diseases
CPT/HCPCS: 36415; 70450; 71045; 80048; 80053; 81001; 83036; 83605; 84484; 85025; 85027; 85610; 85730; 87040; 87070; 87077; 87086; 87186; 87205; 93005; 96365; 96366; 96367; 96372; 99285

== ENCOUNTER 2019-11-26 17:00 | Emergency (ER) | payer MEDICARE, BC ==
[2019-11-26] MEDS ORDERED: ACETAMINOPHEN TAB 500 MG TAB PO STA (17:22)
[2019-11-26] MEDS ORDERED: SODIUM CHLORIDE 0.9% 500 ML 500 ML IV STA (18:02)
--- NOTE | 2019-11-26 18:05 | ED ---
General Adult HPI - General Chief complaint: Altered Mental Status Stated complaint: Weakness Time Seen by Provider: 11/26/19 17:11 Source: patient, EMS, RN notes reviewed Mode of arrival: EMS Limitations: no limitations - History of Present Illness Initial comments: Fadi is a 69-year-old male who presents for confusion. Patient has a complicated past medical history including stage IV chronic kidney disease, heart failure, COPD, IDDM type II, cellulitis with sepsis, as well as a history of intermittent confusion. Patient does not remember exactly why he is in the hospital but is alert and oriented 3 at this point. I called patient's a nd she states he was sitting and initiated area outside in the sun and shade and started to act confused. They were outside for about 4 hours. It is about 85 outside. She states he has had similar episodes of confusion in the past. She states that he has chronic wound of the left leg and used to see wound care for this. She states she wraps it every day and has not noticed any increased redn ess. Patient is found of it fever of 102.3 here in the emergency room. Patient has had a mild cough over the last few weeks but states it is nothing significant. Denies shortness of breath.Patient has no other complaints at this time including shortness of breath, chest pain, abdominal pain, nausea or vomiting, headache, or visual changes. - Related Data Home Medications Medication Instructions Recorded Confirmed Allopurinol [Zyloprim] 100 mg PO DAILY 04/22/15 10/02/19 Cholecalciferol [Vitamin D3 (25 5,000 unit PO DAILY 04/22/15 10/02/19 Mcg = 1000 Iu)] Magnesium Oxide [Mag-Ox] 250 mg PO DAILY 04/22/15 10/02/19 Fish Oil/Dha/Epa [Fish Oil 1,200 1 cap PO DAILY 09/06/15 10/02/19 mg Fish Oil] Simvastatin [Zocor] 40 mg PO HS 09/06/15 10/02/19 Ferrous Sulfate [Iron (65 MG 325 mg PO DAILY 10/23/15 10/02/19 Elemental)] hydrALAZINE HCL [Apresoline] 25 mg PO TID 05/04/16 10/02/19 Aspirin 81 mg PO DAILY 08/27/17 10/02/19 amLODIPine [Norvasc] 5 mg PO BID 08/27/17 10/02/19 Insulin Glargine [Lantus] 30 unit SQ DAILY 09/14/18 10/02/19 Furosemide [Lasix] 40 mg PO BID 10/21/18 10/02/19 Calcitriol 0.25 mcg PO DIRECTED 12/16/18 10/02/19 Sodium Polystyrene Sulfon/Sorb 5 gm PO DAILY 12/16/18 10/02/19 [Kionex 15 gm/60 ml Suspension] Insulin Glargine [Lantus] 20 units SQ HS 07/31/19 10/02/19 Previous Rx's Medication Instructions Recorded Gabapentin [Neurontin] 300 mg PO TID #30 cap 12/20/18 HYDROcodone/APAP 10-325MG [[place] 1 tab PO TID PRN #9 tab 12/20/18 10-325] Allergies Allergy/AdvReac Type Severity Reaction Status Date / Time aspirin [From Anacin] Allergy Rash/Hives Verified 11/26/19 17:06 sulfamethoxazole AdvReac affects Verified 11/26/19 17:06 [From Bactrim] kidneys trimethoprim [From Bactrim] AdvReac Unknown Verified 11/26/19 17:06 Review of Systems ROS Statement: Those systems with pertinent positive or pertinent negative responses have been documented in the HPI. ROS Other: All systems not noted in ROS Statement are negative. 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, chronic venous ulcer left anterior lower leg-treated in [facility], sepsis from L leg wound, chronic anemia, hyperkalemia, CKD-spouse states his kidneys function at 28%, DELVIN with Cpap, possible starting of dementia, confusion at times at night, bilateral lower leg varicosities, umbilical hernia, Hpylori, ambulates very little with walker and mostly wheelchair bound, recent UTI History of Any Multi-Drug Resistant Organisms: VRE Date of last positivie culture/infection: 12/13/17 VRE MDRO Source:: LEG-Left Past Surgical History: Appendectomy, Cholecystectomy, Heart Catheterization With Stent Additional Past Surgical History / Comment(s): Bilateral cataract removals, testicular varicosity surgery, PICC line-removed. Past Anesthesia/Blood Transfusion Reactions: No Reported Reaction Date of Last Stent Placement:: 10/2015 Past Psychological History: No Psychological Hx Reported Smoking Status: Never smoker Past Alcohol Use History: None Reported Past Drug Use History: None Reported - Past Family History Father Family Medical History: COPD Additional Family Medical History / Comment(s): AT AGE 64- EMPHYSEMA(SMOKER) Mother Family Medical History: Diabetes Mellitus, Hypertension Additional Family Medical History / Comment(s): LUPUS, LEG AMPUTATED. MOM IN HER 60'S General Exam Limitations: no limitations General appearance: alert, in no apparent distress Head exam: Present: atraumatic, normocephalic, normal inspection Eye exam: Present: normal appearance, PERRL, EOMI. Absent: scleral icterus, conjunctival injection, periorbital swelling ENT exam: Present: normal exam, mucous membranes moist Neck exam: Present: normal inspection, full ROM. Absent: tenderness, meningismus, lymphadenopathy Respiratory exam: Present: normal lung sounds bilaterally. Absent: respiratory distress, wheezes, rales, rhonchi, stridor Cardiovascular Exam: Present: regular rate, normal rhythm, normal heart sounds. Absent: systolic murmur, diastolic murmur, rubs, gallop, clicks GI/Abdominal exam: Present: soft, normal bowel sounds. Absent: distended, tenderness, guarding, rebound, rigid Extremities exam: Present: other (Patient does have mild erythema of the left leg which appears chronic in nature. I do not see any evidence of surrounding cellulitis.) Neurological exam: Present: alert Course Vital Signs 11/26/19 11/26/19 17:06 19:24 Temperature 102.3 F H 98 F Pulse Rate 101 H 79 Respiratory 20 18 Rate Blood Pressure 126/88 153/73 O2 Sat by Pulse 95 99 Oximetry EKG Findings - EKG Comments: EKG Findings:: Normal sinus rhythm, ventricular rate 93, MN int 126, QTC 425, no ST elevation or depression. Medical Decision Making - Medical Decision Making Patient presents febrile with a temperature of 102.3 and a heart rate of 101. Patient feels very warm and is dressed inset hands and a long sleeve shirt. Patient was sitting outside for 4 hours and 85 weather when he started to act confused. He states he has a mild cough that he always has this. He has not been coughing in the emergency room. Patient does have chronic wound on the left leg however this does not appear infected. CBC CMP is unremarkable. Patient has CKD, states he is supposed to dialysis. Urinalysis is unremark able. Chest x-ray shows no acute process. X-ray of the left tib-fib shows venous stasis disease and osteopenia. Closer removed from patient and he was given some fluids gently. He was not given Tylenol. Fever resolved. He is completely alert and oriented. He states he feels his normal self. I discussed with that I think his fever and confusion was clearly related to heat exhaustion. Stated I do not see a sign of infection and given improvement inpatient as well as history of sitting outside and 85 weather and warm clothing it is more likely related to the heat. Patient is comfortable with patient being discharged home. Patient is also febrile at this. If he has any recurring fevers or other symptoms he will return. The carotid virus pending but no shortness of breath and chest x-ray is clear. - Lab Data Result diagrams: 11/26/19 18:07 11/26/19 18:07 Lab Results 11/26/19 11/26/19 11/26/19 Range/Units 18:07 18:07 18:07 WBC 9.3 (3.8-10.6) k/uL RBC 3.21 L (4.30-5.90) m/uL Hgb 10.3 L (13.0-17.5) gm/dL Hct 30.2 L (39.0-53.0) % MCV 94.1 (80.0-100.0) fL MCH 32.1 (25.0-35.0) pg MCHC 34.1 (31.0-37.0) g/dL RDW 14.3 (11.5-15.5) % Plt Count 245 (150-450) k/uL Neutrophils % 77 % Lymphocytes % 14 % Monocytes % 5 % Eosinophils % 2 % Basophils % 0 % Neutrophils # 7.2 (1.3-7.7) k/uL Lymphocytes # 1.3 (1.0-4.8) k/uL Monocytes # 0.5 (0-1.0) k/uL Eosinophils # 0.2 (0-0.7) k/uL Basophils # 0.0 (0-0.2) k/uL Sodium 136 L (137-145) mmol/L Potassium 5.1 (3.5-5.1) mmol/L Chloride 100 (98-107) mmol/L Carbon Dioxide 24 (22-30) mmol/L Anion Gap 12 mmol/L BUN 86 H (9-20) mg/dL Creatinine 3.53 H (0.66-1.25) mg/dL Est GFR (CKD-EPI)AfAm 19 (>60 ml/min/1.73 sqM) Est GFR (CKD-EPI)NonAf 17 (>60 ml/min/1.73 sqM) Glucose 144 H (74-99) mg/dL Plasma Lactic Acid Anthony 1.2 (0.7-2.0) mmol/L Calcium 9.7 (8.4-10.2) mg/dL Total Bilirubin 0.3 (0.2-1.3) mg/dL AST 22 (17-59) U/L ALT 17 (4-49) U/L Alkaline Phosphatase 96 (38-126) U/L Total Protein 7.2 (6.3-8.2) g/dL Albumin 4.3 (3.5-5.0) g/dL Urine Color Urine Appearance (Clear) Urine pH (5.0-8.0) Ur Specific [place] (1.001-1.035) Urine Protein (Negative) Urine Glucose (UA) (Negative) Urine Ketones (Negative) Urine Blood (Negative) Urine Nitrite (Negative) Urine Bilirubin (Negative) Urine Urobilinogen (<2.0) mg/dL Ur Leukocyte Esterase (Negative) Urine RBC (0-5) /hpf Urine WBC (0-5) /hpf Ur Squamous Epith Cells (0-4) /hpf Amorphous Sediment (None) /hpf Urine Bacteria (None) /hpf Hyaline Casts (0-2) /lpf Urine Mucus (None) /hpf 11/26/19 Range/Units 19:10 WBC (3.8-10.6) k/uL RBC (4.30-5.90) m/uL Hgb (13.0-17.5) gm/dL Hct (39.0-53.0) % MCV (80.0-100.0) fL MCH (25.0-35.0) pg MCHC (31.0-37.0) g/dL RDW (11.5-15.5) % Plt Count (150-450) k/uL Neutrophils % % Lymphocytes % % Monocytes % % Eosinophils % % Basophils % % Neutrophils # (1.3-7.7) k/uL Lymphocytes # (1.0-4.8) k/uL Monocytes # (0-1.0) k/uL Eosinophils # (0-0.7) k/uL Basophils # (0-0.2) k/uL Sodium (137-145) mmol/L Potassium (3.5-5.1) mmol/L Chloride (98-107) mmol/L Carbon Dioxide (22-30) mmol/L Anion Gap mmol/L BUN (9-20) mg/dL Creatinine (0.66-1.25) mg/dL Est GFR (CKD-EPI)AfAm (>60 ml/min/1.73 sqM) Est GFR (CKD-EPI)NonAf (>60 ml/min/1.73 sqM) Glucose (74-99) mg/dL Plasma Lactic Acid Anthony (0.7-2.0) mmol/L Calcium (8.4-10.2) mg/dL Total Bilirubin (0.2-1.3) mg/dL AST (17-59) U/L ALT (4-49) U/L Alkaline Phosphatase (38-126) U/L Total Protein (6.3-8.2) g/dL Albumin (3.5-5.0) g/dL Urine Color Yellow Urine Appearance Cloudy (Clear) Urine pH 5.5 (5.0-8.0) Ur Specific [place] 1.012 (1.001-1.035) Urine Protein 3+ H (Negative) Urine Glucose (UA) Trace H (Negative) Urine Ketones Negative (Negative) Urine Blood Negative (Negative) Urine Nitrite Negative (Negative) Urine Bilirubin Negative (Negative) Urine Urobilinogen <2.0 (<2.0) mg/dL Ur Leukocyte Esterase Negative (Negative) Urine RBC 1 (0-5) /hpf Urine WBC 1 (0-5) /hpf Ur Squamous Epith Cells <1 (0-4) /hpf Amorphous Sediment Rare H (None) /hpf Urine Bacteria Rare H (None) /hpf Hyaline Casts 1 (0-2) /lpf Urine Mucus Rare H (None) /hpf Disposition Clinical Impression: Fever, Heat exhaustion Disposition: HOME SELF-CARE Condition: Good Instructions (If sedation given, give patient instructions): Altered Mental Status (ED) Additional Instructions: If patient develops another fever or any other worsening symptoms such as confusion please return to the emergency department. Otherwise follow-up with his doctor in one to 2 days. If patient is positive for coronavirus she will be notified in the next couple days. Is patient prescribed a controlled substance at d/c from ED?: No Referrals: Papo Ford MD [Primary Care Provider] - 1-2 days Time of Disposition: 20:24
[2019-11-26 18:42] LABS: Basophils % (A) 0 %; Eosinophils # (A) 0.2 k/uL (0-0.7); Eosinophils % (A) 2 %; HCT 30.2 % (39.0-53.0); HGB 10.3 gm/dL (13.0-17.5); Lymphocytes # (A) 1.3 k/uL (1.0-4.8); Lymphocytes % (A) 14 %; MCH 32.1 pg (25.0-35.0); MCHC 34.1 g/dL (31.0-37.0); MCV 94.1 fL (80.0-100.0); Mean Platelet Volume 7.7; Monocytes # (A) 0.5 k/uL (0-1.0); Monocytes % (A) 5 %; Neutrophils # (A) 7.2 k/uL (1.3-7.7); Neutrophils % (A) 77 %; Platelet Count 245 k/uL (150-450); RBC 3.21 m/uL (4.30-5.90); RDW 14.3 % (11.5-15.5); WBC 9.3 k/uL (3.8-10.6)
--- NOTE | 2019-11-26 18:58 | XR ---
Left leg HISTORY: Pain, cellulitis 2 views the left leg on 4 images Bone mineralization is reduced. Soft tissue calcifications are likely vascular. Alignment is maintain ed. No periostitis to suggest osteomyelitis. IMPRESSION: Correlate for venous stasis disease. Osteopenia.
--- NOTE | 2019-11-26 18:59 | XR ---
EXAMINATION TYPE: XR chest 1V portable DATE OF EXAM: 11/26/2019 COMPARISON: Prior chest 12/16/2018 HISTORY: Fever, weakness, abnormal chest x-ray TECHNIQUE: Single frontal view of the chest is obtained. FINDINGS: There is no focal air space opacity, pleural effusion, or pneumothorax seen. The cardiac silhouette size is enlarged. There are overlying cardiac leads. The osseous structures are intact. IMPRESSION: No acute process. Stable cardiomegaly
[2019-11-26 19:01] LABS: Albumin 4.3 g/dL (3.5-5.0); Calcium 9.7 mg/dL (8.4-10.2); Potassium 5.1 mmol/L (3.5-5.1); Total Bilirubin 0.3 mg/dL (0.2-1.3); Total Protein 7.2 g/dL (6.3-8.2)
[2019-11-26 19:23] LABS: Amorphous Sediment,Urine Rare /hpf; Appearance,Urine Cloudy (Clear); Bacteria,Urine Rare /hpf; Bilirubin,Urine Negative (Negative); Blood,Urine Negative (Negative); Color,Urine Yellow; Glucose,Urine (UA) Trace (Negative); Hyaline Casts,Urine 1 /lpf (0-2); Ketones,Urine Negative (Negative); Leukocyte Esterase,Urine Negative (Negative); Mucus,Urine Rare /hpf; Nitrite,Urine Negative (Negative); PH, Urine 5.5 (5.0-8.0); Protein,Urine 3+ (Negative); RBC,Urine 1 /hpf (0-5); Specific Gravity,Urine 1.012 (1.001-1.035); Squamous Epithelial Cell,Urine <1 /hpf (0-4); Urobilinogen,Urine <2.0 mg/dL (<2.0); WBC,Urine 1 /hpf (0-5)
[2019-11-26 19:25] VITALS: TEMP 98
[2019-11-26] MEDS: SODIUM CHLORIDE 0.9% 500 ML 500 ML IV SCH (19:26)
[2019-11-26 20:30] VITALS: BP 156/78; PULSE 77; RESP 16
== END 2019-11-26 20:42 | disposition home or self-care (01) ==
LOC: EC 17:00
DX: T67.5XXA Heat exhaustion, unspecified, initial encounter (principal); R50.9 Fever, unspecified; I87.8 Other specified disorders of veins; M85.862 Other specified disorders of bone density and structure, left lower leg; E11.22 Type 2 diabetes mellitus with diabetic chronic kidney disease; I13.0 Hypertensive heart and chronic kidney disease with heart failure and stage 1 through stage 4 chronic kidney disease, or unspecified chronic kidney disease; N18.4 Chronic kidney disease, stage 4 (severe); I50.9 Heart failure, unspecified; G47.30 Sleep apnea, unspecified; E78.5 Hyperlipidemia, unspecified; G47.33 Obstructive sleep apnea (adult) (pediatric); E11.40 Type 2 diabetes mellitus with diabetic neuropathy, unspecified; Z20.828 Contact with and (suspected) exposure to other viral communicable diseases; Z79.82 Long term (current) use of aspirin; Z79.4 Long term (current) use of insulin; Z79.899 Other long term (current) drug therapy; Z88.1 Allergy status to other antibiotic agents; Z88.2 Allergy status to sulfonamides; Z88.6 Allergy status to analgesic agent; Z95.5 Presence of coronary angioplasty implant and graft; Z99.89 Dependence on other enabling machines and devices
CPT/HCPCS: 36415; 71045; 80053; 81001; 83605; 85025; 87040; 87635; 93005; 96360; 99285

== ENCOUNTER 2019-11-28 20:22 | Inpatient (IN) | payer MEDICARE, BC ==
[2019-11-28] MEDS ORDERED: ACETAMINOPHEN TAB 500 MG TAB PO STA (20:31)
[2019-11-28] MEDS ORDERED: SODIUM CHLORIDE 0.9% 1,000 ML IV STA (20:32)
--- NOTE | 2019-11-28 20:36 | ED ---
General Adult HPI - General Stated complaint: Fever and weakness Time Seen by Provider: 11/28/19 20:24 Source: patient, EMS, RN notes reviewed Mode of arrival: EMS - History of Present Illness Initial comments: Patient is a pleasant 6 he 9-year-old male presenting to the emergency department with fever and generalized weakness. Onset of symptoms was today. Patient was recently discharged from the hospital with left leg cellulitis. Patient feels weak all over and difficulty with walking. Patient feels a little bit confused, difficulty remembering what day it is. No cough or dyspnea. No abdominal pain. No urinary symptoms. - Related Data Home Medications Medication Instructions Recorded Confirmed Allopurinol [Zyloprim] 100 mg PO DAILY 04/22/15 10/02/19 Cholecalciferol [Vitamin D3 (25 5,000 unit PO DAILY 04/22/15 10/02/19 Mcg = 1000 Iu)] Magnesium Oxide [Mag-Ox] 250 mg PO DAILY 04/22/15 10/02/19 Fish Oil/Dha/Epa [Fish Oil 1,200 1 cap PO DAILY 09/06/15 10/02/19 mg Fish Oil] Simvastatin [Zocor] 40 mg PO HS 09/06/15 10/02/19 Ferrous Sulfate [Iron (65 MG 325 mg PO DAILY 10/23/15 10/02/19 Elemental)] hydrALAZINE HCL [Apresoline] 25 mg PO TID 05/04/16 10/02/19 Aspirin 81 mg PO DAILY 08/27/17 10/02/19 amLODIPine [Norvasc] 5 mg PO BID 08/27/17 10/02/19 Insulin Glargine [Lantus] 30 unit SQ DAILY 09/14/18 10/02/19 Furosemide [Lasix] 40 mg PO BID 10/21/18 10/02/19 Calcitriol 0.25 mcg PO DIRECTED 12/16/18 10/02/19 Sodium Polystyrene Sulfon/Sorb 5 gm PO DAILY 12/16/18 10/02/19 [Kionex 15 gm/60 ml Suspension] Insulin Glargine [Lantus] 20 units SQ HS 07/31/19 10/02/19 Previous Rx's Medication Instructions Recorded Gabapentin [Neurontin] 300 mg PO TID #30 cap 12/20/18 HYDROcodone/APAP 10-325MG [[place] 1 tab PO TID PRN #9 tab 12/20/18 10-325] Allergies Allergy/AdvReac Type Severity Reaction Status Date / Time aspirin [From Anacin] Allergy Rash/Hives Verified 11/26/19 17:06 sulfamethoxazole AdvReac affects Verified 11/26/19 17:06 [From Bactrim] kidneys trimethoprim [From Bactrim] AdvReac Unknown Verified 11/26/19 17:06 Review of Systems ROS Statement: Those systems with pertinent positive or pertinent negative responses have been documented in the HPI. ROS Other: All systems not noted in ROS Statement are negative. Constitutional: Reports: fever, chills Eyes: Denies: eye pain ENT: Denies: ear pain Respiratory: Denies: cough, dyspnea Cardiovascular: Denies: chest pain Endocrine: Reports: fatigue Gastrointestinal: Denies: abdominal pain, nausea, vomiting Genitourinary: Denies: dysuria Musculoskeletal: Denies: back pain Skin: Denies: rash 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, chronic venous ulcer left anterior lower leg-treated in [facility], sepsis from L leg wound, chronic anemia, hyperkalemia, CKD-spouse states his kidneys function at 28%, DELVIN with Cpap, possible starting of dementia, confusion at times at night, bilateral lower leg varicosities, umbilical hernia, Hpylori, ambulates very little with walker and mostly wheelchair bound, recent UTI History of Any Multi-Drug Resistant Organisms: VRE Date of last positivie culture/infection: 12/13/17 VRE MDRO Source:: LEG-Left Past Surgical History: Appendectomy, Cholecystectomy, Heart Catheterization With Stent Additional Past Surgical History / Comment(s): Bilateral cataract removals, testicular varicosity surgery, PICC line-removed. Past Anesthesia/Blood Transfusion Reactions: No Reported Reaction Date of Last Stent Placement:: 10/2015 Past Psychological History: No Psychological Hx Reported Smoking Status: Never smoker Past Alcohol Use History: None Reported Past Drug Use History: None Reported - Past Family History Father Family Medical History: COPD Additional Family Medical History / Comment(s): AT AGE 64- EMPHYSEMA(SMOKER) Mother Family Medical History: Diabetes Mellitus, Hypertension Additional Family Medical History / Comment(s): LUPUS, LEG AMPUTATED. MOM IN HER 60'S General Exam Limitations: no limitations General appearance: alert, in no apparent distress Head exam: Present: atraumatic, normocephalic Eye exam: Present: normal appearance, PERRL, EOMI ENT exam: Present: normal oropharynx Neck exam: Present: normal inspection. Absent: meningismus Respiratory exam: Present: normal lung sounds bilaterally Cardiovascular Exam: Present: tachycardia GI/Abdominal exam: Present: soft, hernia (Easily reducible umbilical hernia). Absent: distended, tenderness, guarding, rebound, rigid Extremities exam: Present: normal inspection Neurological exam: Present: alert, CN II-XII intact. Absent: motor sensory deficit Expanded Patient oriented to: Present: person, place. Absent: time (Patient is oriented to year however not month) Cranial nerves: EOM's Intact: Normal Motor strength exam: RUE: 5, LUE: 5, RLE: 5, LLE: 5 Psychiatric exam: Present: normal affect, normal mood Skin exam: Present: normal color Course Vital Signs 11/28/19 20:27 Temperature 102.2 F H Pulse Rate 115 H Respiratory 20 Rate Blood Pressure 129/75 O2 Sat by Pulse 92 L Oximetry - Reevaluation(s) Reevaluation #1: 11/28/19 21:44 Patient does meet sepsis criteria diagnosed at 2140. Blood culture and lactic acid and IV antibiotics ordered. EKG Findings - EKG Comments: EKG Findings:: Sinus tachycardia 114. For screening AV block IL of 216. QRS 92. QT 298. QTC 410. Left axis. Septal Q waves. No acute ST change Medical Decision Making - Medical Decision Making Patient reevaluated and updated. Case was discussed with Dr. Callaway, who will admit covering for Dr. Butcher, who admits for Dr. Gordon. - Lab Data Result diagrams: 11/28/19 20:55 11/28/19 20:55 Lab Results 11/28/19 11/28/19 11/28/19 Range/Units 20:55 20:55 20:55 WBC 18.8 H (3.8-10.6) k/uL RBC 3.35 L (4.30-5.90) m/uL Hgb 10.7 L (13.0-17.5) gm/dL Hct 31.9 L (39.0-53.0) % MCV 95.5 (80.0-100.0) fL MCH 32.0 (25.0-35.0) pg MCHC 33.5 (31.0-37.0) g/dL RDW 14.4 (11.5-15.5) % Plt Count 270 (150-450) k/uL Neutrophils % 83 % Lymphocytes % 11 % Monocytes % 5 % Eosinophils % 1 % Basophils % 0 % Neutrophils # 15.7 H (1.3-7.7) k/uL Lymphocytes # 2.0 (1.0-4.8) k/uL Monocytes # 0.9 (0-1.0) k/uL Eosinophils # 0.1 (0-0.7) k/uL Basophils # 0.0 (0-0.2) k/uL PT 9.6 (9.0-12.0) sec INR 0.9 (<1.2) APTT 23.1 (22.0-30.0) sec Sodium 138 (137-145) mmol/L Potassium 4.4 (3.5-5.1) mmol/L Chloride 98 (98-107) mmol/L Carbon Dioxide 29 (22-30) mmol/L Anion Gap 11 mmol/L BUN 79 H (9-20) mg/dL Creatinine 3.21 H (0.66-1.25) mg/dL Est GFR (CKD-EPI)AfAm 22 (>60 ml/min/1.73 sqM) Est GFR (CKD-EPI)NonAf 19 (>60 ml/min/1.73 sqM) Glucose 197 H (74-99) mg/dL Plasma Lactic Acid Anthony (0.7-2.0) mmol/L Calcium 10.0 (8.4-10.2) mg/dL Magnesium 1.9 (1.6-2.3) mg/dL Total Bilirubin 0.4 (0.2-1.3) mg/dL AST 22 (17-59) U/L ALT 16 (4-49) U/L Alkaline Phosphatase 111 (38-126) U/L Lactate Dehydrogenase 514 (313-618) U/L C-Reactive Protein 58.3 H (<10.0) mg/L Total Protein 7.7 (6.3-8.2) g/dL Albumin 4.5 (3.5-5.0) g/dL 11/28/19 Range/Units 20:55 WBC (3.8-10.6) k/uL RBC (4.30-5.90) m/uL Hgb (13.0-17.5) gm/dL Hct (39.0-53.0) % MCV (80.0-100.0) fL MCH (25.0-35.0) pg MCHC (31.0-37.0) g/dL RDW (11.5-15.5) % Plt Count (150-450) k/uL Neutrophils % % Lymphocytes % % Monocytes % % Eosinophils % % Basophils % % Neutrophils # (1.3-7.7) k/uL Lymphocytes # (1.0-4.8) k/uL Monocytes # (0-1.0) k/uL Eosinophils # (0-0.7) k/uL Basophils # (0-0.2) k/uL PT (9.0-12.0) sec INR (<1.2) APTT (22.0-30.0) sec Sodium (137-145) mmol/L Potassium (3.5-5.1) mmol/L Chloride (98-107) mmol/L Carbon Dioxide (22-30) mmol/L Anion Gap mmol/L BUN (9-20) mg/dL Creatinine (0.66-1.25) mg/dL Est GFR (CKD-EPI)AfAm (>60 ml/min/1.73 sqM) Est GFR (CKD-EPI)NonAf (>60 ml/min/1.73 sqM) Glucose (74-99) mg/dL Plasma Lactic Acid Anthony 1.7 (0.7-2.0) mmol/L Calcium (8.4-10.2) mg/dL Magnesium (1.6-2.3) mg/dL Total Bilirubin (0.2-1.3) mg/dL AST (17-59) U/L ALT (4-49) U/L Alkaline Phosphatase (38-126) U/L Lactate Dehydrogenase (313-618) U/L C-Reactive Protein (<10.0) mg/L Total Protein (6.3-8.2) g/dL Albumin (3.5-5.0) g/dL - Radiology Data Radiology results: image reviewed (Chest x-ray shows no acute process. X-ray left tib-fib shows no evidence of osteomyelitis.) Critical Care Time Critical Care Time: Yes Total Critical Care Time: 33 Disposition Clinical Impression: Cellulitis of left lower leg, Sepsis Disposition: ADMITTED IP TO THIS HOSP Is patient prescribed a controlled substance at d/c from ED?: No Referrals: Papo Ford MD [Primary Care Provider] - 1-2 days Decision Time: 21:45
[2019-11-28 21:18] LABS: Basophils % (A) 0 %; Eosinophils # (A) 0.1 k/uL (0-0.7); Eosinophils % (A) 1 %; HCT 31.9 % (39.0-53.0); HGB 10.7 gm/dL (13.0-17.5); Lymphocytes % (A) 11 %; MCHC 33.5 g/dL (31.0-37.0); MCV 95.5 fL (80.0-100.0); Monocytes # (A) 0.9 k/uL (0-1.0); Monocytes % (A) 5 %; Neutrophils # (A) 15.7 k/uL (1.3-7.7); Neutrophils % (A) 83 %; Platelet Count 270 k/uL (150-450); RBC 3.35 m/uL (4.30-5.90); RDW 14.4 % (11.5-15.5); WBC 18.8 k/uL (3.8-10.6)
[2019-11-28 21:27] LABS: INR 0.9 (<1.2); Partial Thromboplastin Time 23.1 sec (22.0-30.0); Prothrombin Time 9.6 sec (9.0-12.0)
[2019-11-28 21:34] LABS: Albumin 4.5 g/dL (3.5-5.0); C Reactive Protein 58.3 mg/L (<10.0); Magnesium 1.9 mg/dL (1.6-2.3); Potassium 4.4 mmol/L (3.5-5.1); Total Bilirubin 0.4 mg/dL (0.2-1.3); Total Protein 7.7 g/dL (6.3-8.2)
--- NOTE | 2019-11-28 21:34 | XR ---
EXAMINATION TYPE: XR chest 1V portable DATE OF EXAM: 11/28/2019 COMPARISON: 11/26/2019 HISTORY: Altered mental status. Pneumonia. TECHNIQUE: FINDINGS: AP view shows no heart failure nor confluent pneumonic infiltrate. Costophrenic angles are clear. There are no hilar masses. Bony thorax is intact. IMPRESSION: No active cardiopulmonary disease. No change.
--- NOTE | 2019-11-28 21:36 | XR ---
EXAMINATION TYPE: XR tibia fibula LT DATE OF EXAM: 11/28/2019 COMPARISON: 11/26/2019 HISTORY: Cellulitis TECHNIQUE: 4 views FINDINGS: There is atherosclerotic vascular calcification. There are calcifications in the subcutaneo us tissues consistent with venous stasis. There is plantar calcaneal spurring. I see no fracture nor dislocation. The tibia and fibula appear intact. I see no focal bone destruction. There is mild osteo arthritis of the knee joint. IMPRESSION: No evidence of osteomyelitis. Vascular calcification noted.
[2019-11-28] MEDS ORDERED: VANCOMYCIN IV PER PHARMACY 1 EACH MISC MISCELLANE PRN (21:45)
[2019-11-28] MEDS ORDERED: cefTRIAXone IN SWFI 1,000 MG/10 ML SYRINGE IVP ONE (21:45)
[2019-11-28] MEDS ORDERED: NALOXONE 0.4 MG/ML 1 ML VIAL IV PRN (21:46)
[2019-11-28 21:49] LABS: Amorphous Sediment,Urine Rare /hpf; Appearance,Urine Cloudy (Clear); Bacteria,Urine Occasional /hpf; Bilirubin,Urine Negative (Negative); Blood,Urine Negative (Negative); Color,Urine Light Yellow; Glucose,Urine (UA) Trace (Negative); Ketones,Urine Negative (Negative); Leukocyte Esterase,Urine Moderate (Negative); Mucus,Urine Rare /hpf; Nitrite,Urine Negative (Negative); Protein,Urine 2+ (Negative); RBC,Urine 1 /hpf (0-5); Urobilinogen,Urine <2.0 mg/dL (<2.0); WBC,Urine 23 /hpf (0-5)
[2019-11-28] MEDS ORDERED: VANCOMYCIN 2,250 MG in SODIUM CHLORIDE 0.9% 500 ML 500 ML IVPB ONE (22:30)
[2019-11-28] MEDS ORDERED: IBUPROFEN 600 MG TAB PO STA (22:32)
[2019-11-28] MEDS: SODIUM CHLORIDE 0.9% 1,000 ML IV SCH (22:45)
--- NOTE | 2019-11-29 02:12 | P.HPIM ---
History of Present Illness H&P Date: 11/28/19 Chief Complaint: left leg erythema and drainage 69 year old male with chronic venous ulcers and recurrent cellulitits of lower extremities. DELVIN , obesity , hypertension , DM and CKD. patient is very poor historian he reports coming in today , seeking help , and hoping that we can help heal his left leg wound that he has been pushing and powering through during the lockd own. he reports chronic changes in his left leg however, recently noticed few open wounds in his left leg , draining wounds, some increase pain and increase erythema. denies any fever, and chills. denies any chest pain or trouble breathing . denies any injuries to his leg. he uses a walker to ambulate. he denies any GI bleeding patient admits that he has been dealing with these wounds for years now . in the ED , he was found to have leukocytosis , anemia at baseline, CKD 4 slightly worse than baseline. EKG showing sinus tachy with 1st degree AV block Review of Systems Pertinent positives as noted in HPI. All other systems were reviewed and are negative 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, chronic venous ulcer left anterior lower leg-treated in [facility], sepsis from L leg wound, chronic anemia, hyperkalemia, CKD-spouse states his kidneys function at 28%, DELVIN with Cpap, possible starting of dementia, confusion at times at night, bilateral lower leg varicosities, umbilical hernia, Hpylori, ambulates very little with walker and mostly wheelchair bound, recent UTI History of Any Multi-Drug Resistant Organisms: VRE Date of last positivie culture/infection: 12/13/17 VRE MDRO Source:: LEG-Left Past Surgical History: Appendectomy, Cholecystectomy, Heart Catheterization With Stent Additional Past Surgical History / Comment(s): Bilateral cataract removals, testicular varicosity surgery, PICC line-removed. Past Anesthesia/Blood Transfusion Reactions: No Reported Reaction Date of Last Stent Placement:: 10/2015 Past Psychological History: No Psychological Hx Reported Smoking Status: Never smoker Past Alcohol Use History: None Reported Past Drug Use History: None Reported - Past Family History Father Family Medical History: COPD Additional Family Medical History / Comment(s): AT AGE 64- EMPHYSEMA(SMOKER) Mother Family Medical History: Diabetes Mellitus, Hypertension Additional Family Medical History / Comment(s): LUPUS, LEG AMPUTATED. MOM IN HER 60'S Medications and Allergies Home Medications Medication Instructions Recorded Confirmed Type Allopurinol [Zyloprim] 100 mg PO DAILY 04/22/15 10/02/19 History Cholecalciferol [Vitamin D3 (25 5,000 unit PO DAILY 04/22/15 10/02/19 History Mcg = 1000 Iu)] Magnesium Oxide [Mag-Ox] 250 mg PO DAILY 04/22/15 10/02/19 History Fish Oil/Dha/Epa [Fish Oil 1,200 1 cap PO DAILY 09/06/15 10/02/19 History mg Fish Oil] Simvastatin [Zocor] 40 mg PO HS 09/06/15 10/02/19 History Ferrous Sulfate [Iron (65 MG 325 mg PO DAILY 10/23/15 10/02/19 History Elemental)] hydrALAZINE HCL [Apresoline] 25 mg PO TID 05/04/16 10/02/19 History Aspirin 81 mg PO DAILY 08/27/17 10/02/19 History amLODIPine [Norvasc] 5 mg PO BID 08/27/17 10/02/19 History Insulin Glargine [Lantus] 30 unit SQ DAILY 09/14/18 10/02/19 History Furosemide [Lasix] 40 mg PO BID 10/21/18 10/02/19 History Calcitriol 0.25 mcg PO DIRECTED 12/16/18 10/02/19 History Sodium Polystyrene Sulfon/Sorb 5 gm PO DAILY 12/16/18 10/02/19 History [Kionex 15 gm/60 ml Suspension] Gabapentin [Neurontin] 300 mg PO TID #30 cap 12/20/18 10/02/19 Rx HYDROcodone/APAP 10-325MG [[place] 1 tab PO TID PRN #9 tab 12/20/18 10/02/19 Rx 10-325] Insulin Glargine [Lantus] 20 units SQ HS 07/31/19 10/02/19 History Allergies Allergy/AdvReac Type Severity Reaction Status Date / Time aspirin [From Anacin] Allergy Rash/Hives Verified 11/26/19 17:06 sulfamethoxazole AdvReac affects Verified 11/26/19 17:06 [From Bactrim] kidneys trimethoprim [From Bactrim] AdvReac Unknown Verified 11/26/19 17:06 Physical Exam Vitals: Vital Signs Temp Pulse Resp BP Pulse Ox 11/28/19 20:27 102.2 F H 115 H 20 129/75 92 L Intake and Output 11/28/19 11/28/19 11/28/19 06:59 14:59 22:59 Other: Weight 136.078 kg Constitutional: No acute distress, conversant, pleasant, patient has tremors Eyes: Anicteric sclerae, moist conjunctiva, no lid-lag Pupils equal round reactive to light ENMT: NC/AT Oropharynx clear, no erythema, exudates Neck: Supple, FROM, no masses, or JVD No carotid bruits No thyromegaly Lungs: Clear to auscultation Clear to percussion Normal respiratory effort, no accessory muscle use Cardiovascular: Heart regular in rate and rhythm, diastolic murmurs, no gallops, or rubs No peripheral edema Abdominal: Soft, Nontender, no guarding, rebound or rigidity Abdomen moving with respiration Normoactive bowel sounds No hepatomegaly, No splenomegaly No palpable mass large umbilical hernia reducible non tender Skin: bilateral lower extremity chronic skin changes, with left leg erythema and warm to the touch and tender, over the anterior britt over lower one third of left leg there is area with skin ulcer currently non draining otherwise, Normal temperature, tone, texture, turgor Extremities: No digital cyanosis No clubbing Pedal pulses intact and symmetrical Radial pulses intact and symmetrical No calf tenderness Psychiatric: Alert and oriented to person, place and time Appropriate affect fair judgment Neuro Muscles Strength 3-4/5 in all 4 extremities Sensation to light touch grossly present throughout Cranial nerves II-XII grossly intact No focal sensory deficits Lymphatics: no palpable cervical or supraclavicular , or inguinal lymph nodes Results CBC & Chem 7: 11/28/19 20:55 11/28/19 20:55 Labs: Abnormal Lab Results - Last 24 Hours (Table) 11/28/19 11/28/19 11/28/19 Range/Units 20:54 20:55 20:55 WBC 18.8 H (3.8-10.6) k/uL RBC 3.35 L (4.30-5.90) m/uL Hgb 10.7 L (13.0-17.5) gm/dL Hct 31.9 L (39.0-53.0) % Neutrophils # 15.7 H (1.3-7.7) k/uL BUN 79 H (9-20) mg/dL Creatinine 3.21 H (0.66-1.25) mg/dL Glucose 197 H (74-99) mg/dL C-Reactive Protein 58.3 H (<10.0) mg/L Urine Protein 2+ H (Negative) Urine Glucose (UA) Trace H (Negative) Ur Leukocyte Esterase Moderate H (Negative) Urine WBC 23 H (0-5) /hpf Amorphous Sediment Rare H (None) /hpf Urine Bacteria Occasional H (None) /hpf Urine Mucus Rare H (None) /hpf Assessment and Plan Assessment: 69 year old male with complex past medical history , DM on insulin , CKD 4 , hypertension , comes in due to draining wound over left lower leg with increase erythema and pain , admitted for IV abx treatmetn of cellulitis with anticipated length of stay >2 midnights sepsis cellulitis of the left lower leg chronic skin changes and venous stasis ulcers of the legs. follow up cultures vancomycin dosing by pharmacy pain control ID consult IVF hydration hold lasix chronic conditions anemia of chronic disease stable CKD 4 DELVIN morbid obesity DM , insulin slidiing scale hypertension resume home meds verify home meds CODE STATUS:full code DVT prophylaxis: heparin sc tid Discussed with: Patient, ER Anticipated length of stay > than [address]: home A total of 75 minutes was spent on the care of this complex patient more than 50% of the time was spent in counseling and care coordination.
[2019-11-29] MEDS: SODIUM CHLORIDE 0.9% 1,000 ML IV SCH ×2 (05:57→12:26)
[2019-11-29 06:58] LABS: Basophils % (A) 0 %; Eosinophils # (A) 0.1 k/uL (0-0.7); Eosinophils % (A) 0 %; HCT 28.5 % (39.0-53.0); Lymphocytes # (A) 0.9 k/uL (1.0-4.8); Lymphocytes % (A) 5 %; MCH 30.3 pg (25.0-35.0); MCHC 31.6 g/dL (31.0-37.0); MCV 95.7 fL (80.0-100.0); Mean Platelet Volume 7.8; Monocytes # (A) 0.8 k/uL (0-1.0); Monocytes % (A) 4 %; Neutrophils # (A) 16.9 k/uL (1.3-7.7); Neutrophils % (A) 90 %; Platelet Count 189 k/uL (150-450); RBC 2.98 m/uL (4.30-5.90); RDW 14.4 % (11.5-15.5); WBC 18.7 k/uL (3.8-10.6)
[2019-11-29 07:07] LABS: Albumin 3.5 g/dL (3.5-5.0); Potassium 4.3 mmol/L (3.5-5.1); Total Bilirubin 0.4 mg/dL (0.2-1.3); Total Protein 6.4 g/dL (6.3-8.2)
[2019-11-29 07:28] LABS: Glucose,Whole Blood 163 mg/dL (75-99)
[2019-11-29] MEDS: INSULIN ASPART (NovoLOG) 100 UNIT/ML VIAL SQ SCH ×4 (08:17→21:46)
[2019-11-29] MEDS: ACETAMINOPHEN TAB 500 MG TAB PO PRN ×2 (08:22→16:22)
[2019-11-29] MEDS: GABAPENTIN 300 MG CAP PO SCH ×3 (08:23→23:09)
[2019-11-29] MEDS: amLODIPine 5 MG TAB PO SCH ×2 (08:23→22:15)
[2019-11-29] MEDS: HEPARIN SODIUM,PORCINE 5,000 UNIT/ML 1 ML VIAL SQ SCH ×2 (08:23→16:12)
[2019-11-29] MEDS ORDERED: FUROSEMIDE 40 MG TAB PO SCH (09:00)
[2019-11-29] MEDS ORDERED: SODIUM CHLORIDE 0.9% 1,000 ML IV ONE (09:52)
[2019-11-29] MEDS ORDERED: IOPAMIDOL CONTRAST (ORAL USE) VIAL PO PRN (09:52)
[2019-11-29] MEDS: AMPICILLIN-SULBACTAM 1.5 GM in SODIUM CHLORIDE 0.9% 50 ML IVPB SCH ×2 (11:03→16:09)
--- NOTE | 2019-11-29 11:08 | P.NPCON ---
History of Present Illness - Reason for Consult acute renal failure, chronic renal failure - History of Present Illness Reason for consultation: Chronic kidney disease History of present illness: Patient is a 69-year-old male seen in consultation for chronic kidney disease. Creatinine was 3.1 on admission and is 3.03 this morning. Patient has chronic kidney disease stage IV secondary to diabetic kidney disease. Patient's baseline creatinine has been near 3-3.2 recently. Patient presented to the [facility] due to fever and generalized weakness. He denies any vomiting or diarrhea. He was recently treated for left leg cellulitis. He's been having difficulty walking. He denies any chest pain or shortness of breath. No cough. No abdominal pain. No hematuria or dysuria. He does admit to taking pain medications at home daily but doesn't know which ones. He states that he takes them all. Patient's blood pressure has been stable. No significant hypotension. He is receiving IV fluids. No edema. No evidence of fluid overload on chest x-ray. His temperature was 102.9F in the emergency room. Vital signs are stable. General: The patient appeared well nourished and normally developed. HEENT: Head exam is unremarkable. Neck is without jugular venous distension. LUNGS: Breath sounds decreased. HEART: Rate and Rhythm are regular. ABDOMEN: Soft, nontender. EXTREMITITES: No edema. Erythema and chronic changes noted. 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, chronic venous ulcer left anterior lower leg-treated in [facility], sepsis from L leg wound, chronic anemia, hyperkalemia, CKD-spouse states his kidneys function at 28%, DELVIN with Cpap, possible starting of dementia, confusion at times at night, bilateral lower leg varicosities, umbilical hernia, Hpylori, ambulates very little with walker and mostly wheelchair bound, recent UTI History of Any Multi-Drug Resistant Organisms: VRE Date of last positivie culture/infection: 12/13/17 VRE MDRO Source:: LEG-Left Past Surgical History: Appendectomy, Cholecystectomy, Heart Catheterization With Stent Additional Past Surgical History / Comment(s): Bilateral cataract removals, testicular varicosity surgery, PICC line-removed. Past Anesthesia/Blood Transfusion Reactions: No Reported Reaction Date of Last Stent Placement:: 10/2015 Past Psychological History: No Psychological Hx Reported Smoking Status: Never smoker Past Alcohol Use History: None Reported Past Drug Use History: None Reported - Past Family History Father Family Medical History: COPD Additional Family Medical History / Comment(s): AT AGE 64- EMPHYSEMA(SMOKER) Mother Family Medical History: Diabetes Mellitus, Hypertension Additional Family Medical History / Comment(s): LUPUS, LEG AMPUTATED. MOM IN HER 60'S Medications and Allergies Home Medications Medication Instructions Recorded Confirmed Type Allopurinol [Zyloprim] 100 mg PO DAILY 04/22/15 10/02/19 History Cholecalciferol [Vitamin D3 (25 5,000 unit PO DAILY 04/22/15 10/02/19 History Mcg = 1000 Iu)] Magnesium Oxide [Mag-Ox] 250 mg PO DAILY 04/22/15 10/02/19 History Fish Oil/Dha/Epa [Fish Oil 1,200 1 cap PO DAILY 09/06/15 10/02/19 History mg Fish Oil] Simvastatin [Zocor] 40 mg PO HS 09/06/15 10/02/19 History Ferrous Sulfate [Iron (65 MG 325 mg PO DAILY 10/23/15 10/02/19 History Elemental)] hydrALAZINE HCL [Apresoline] 25 mg PO TID 05/04/16 10/02/19 History Aspirin 81 mg PO DAILY 08/27/17 10/02/19 History amLODIPine [Norvasc] 5 mg PO BID 08/27/17 10/02/19 History Insulin Glargine [Lantus] 30 unit SQ DAILY 09/14/18 10/02/19 History Furosemide [Lasix] 40 mg PO BID 10/21/18 10/02/19 History Calcitriol 0.25 mcg PO DIRECTED 12/16/18 10/02/19 History Sodium Polystyrene Sulfon/Sorb 5 gm PO DAILY 12/16/18 10/02/19 History [Kionex 15 gm/60 ml Suspension] Gabapentin [Neurontin] 300 mg PO TID #30 cap 12/20/18 10/02/19 Rx HYDROcodone/APAP 10-325MG [[place] 1 tab PO TID PRN #9 tab 12/20/18 10/02/19 Rx 10-325] Insulin Glargine [Lantus] 20 units SQ HS 07/31/19 10/02/19 History Allergies Allergy/AdvReac Type Severity Reaction Status Date / Time aspirin [From Anacin] Allergy Rash/Hives Verified 11/26/19 17:06 sulfamethoxazole AdvReac affects Verified 11/26/19 17:06 [From Bactrim] kidneys trimethoprim [From Bactrim] AdvReac Unknown Verified 11/26/19 17:06 Physical Exam Vitals: Vital Signs Temp Pulse Resp BP Pulse Ox 11/29/19 09:42 102.7 F H 116 H 18 125/95 96 11/29/19 08:20 102.9 F H 110 H 18 145/105 98 11/29/19 07:20 105 H 20 147/57 97 11/29/19 05:00 98.1 F 110 H 16 140/71 97 11/29/19 04:00 75 14 119/53 96 11/29/19 03:00 79 14 138/63 98 11/29/19 02:00 100.9 F H 83 14 117/48 98 11/29/19 01:00 86 14 137/60 98 11/29/19 00:01 101.3 F H 91 18 130/105 98 11/28/19 22:20 108 H 18 152/71 98 11/28/19 22:10 102.4 F H 105 H 18 152/71 95 11/28/19 22:00 110 H 18 148/118 98 11/28/19 21:50 116 H 20 104/82 97 11/28/19 21:41 115 H 16 162/113 87 L 11/28/19 21:30 108 H 18 96 11/28/19 21:00 106 H 24 145/72 97 11/28/19 20:27 102.2 F H 115 H 20 129/75 92 L Intake and Output 11/28/19 11/29/19 11/29/19 22:59 06:59 14:59 Other: Weight 136.078 kg Results - Lab Results Most recent lab results Calcium 9.0 mg/dL (8.4-10.2) 11/29/19 06:36 Magnesium 1.9 mg/dL (1.6-2.3) 11/28/19 20:55 11/29/19 06:36 11/29/19 06:36 Assessment and Plan Plan: Assessment: 1. Chronic kidney disease stage IV secondary to diabetic kidney disease. Baseline creatinine near 3-3.2. GFR at baseline. 2. Sepsis. Possible source lower extremity cellulitis and UTI. 3. Hypertension with chronic kidney disease. Controlled. 4. Insulin-dependent diabetes mellitus. 5. Anemia of chronic kidney disease. Rule out iron deficiency. Plan: I will decrease the rate of normal saline to 100 mL an hour. Follow-up cultures. Check iron studies. Avoid nephrotoxins. Diuretics held. Check renal ultrasound. Continue to monitor renal function and urine output. Follow-up CAT scan results. Thank you for the consultation. I will continue to follow the patient with you during his hospital stay.
[2019-11-29 12:12] LABS: Glucose,Whole Blood 125 mg/dL (75-99)
--- NOTE | 2019-11-29 12:56 | CT ---
EXAMINATION TYPE: CT abdomen pelvis wo con DATE OF EXAM: 11/29/2019 COMPARISON: 08/31/2017 HISTORY: Cellulitis and sepsis CT DLP: 2053.2 mGycm Examination of the solid and hollow viscera is limited given the lack of contrast. FINDINGS: LUNG BASES: No evidence for nodule. No evidence for infiltrate. LIVER/GB: Cholecystectomy clips are noted in place. No space-occupying hepatic lesion. PANCREAS: No pancreatic mass identified. No inflammatory process seen. SPLEEN: No evidence for splenomegaly. No intrasplenic lesions seen. ADRENALS: No adrenal nodules identified. No evidence for thickening. KIDNEYS: No evidence for renal mass. No nephrolithiasis. No hydronephrosis. Urinary bladder distentio n noted. BOWEL: Appendix has a normal appearance. No evidence of bowel obstruction. No inflammatory process. Lymph nodes: No evidence for adenopathy greater than 1 cm. Abdominal aorta: Atheromatous changes seen. No evidence for aneurysm. Genital organs: No significant abnormality. Other: Stable fat-containing ventral hernia is noted. IMPRESSION: NO ACUTE PROCESS IDENTIFIED TO ACCOUNT FOR THE PATIENT'S SYMPTOMS. STABLE FAT-CONTAINING VENTRAL VERONICA IA.
--- NOTE | 2019-11-29 15:35 | US ---
EXAMINATION TYPE: US kidneys/renal and bladder DATE OF EXAM: 11/29/2019 COMPARISON: CT 2019 CLINICAL HISTORY: [place]. TIERNEY EXAM MEASUREMENTS: Right Kidney: 10.5 x 5.6 x 5.4 cm Left Kidney: 12.9 x 6.4 x 5.6 cm Difficult and limited study due to patient body habitus Right Kidney: limited visualization, cortical thinning, no hydronephrosis or masses seen Left Kidney: limited visualization, 2.4cm hypoechoic area lateral mid/inf pole, no hydronephrosis Bladder: wnl Bilateral Jets seen: no IMPRESSION: 1. Correlate for chronic medical renal disease. Hypoechoic 2.4 cm lesion left kidney is indeterminate by ultrasound but most likely related to a cyst and measures approximately 9 Hounsfield units on the prior CT exam 2. Simple left renal cyst.
[2019-11-29] MEDS ORDERED: VANCOMYCIN 2,000 MG in SODIUM CHLORIDE 0.9% 500 ML 500 ML IVPB ONE (16:00)
[2019-11-29] MEDS ORDERED: HYDROcodone/APAP 10-325MG 1 EACH TAB PO PRN (16:02)
[2019-11-29 16:34] LABS: % Iron Saturation 3.49 (15.00-50.00)
--- NOTE | 2019-11-29 16:34 | P.PN ---
Subjective Progress Note Date: 11/29/19 (delayed charting seen at 1130) Principal diagnosis: left leg redness Patient is a 69-year-old male with a past medical history of chronic venous stasis ulcers with recurrent cellulitis of the lower extremities, sleep apnea, hypertension, diabetes mellitus type 2 and chronic kidney disease stage IV who presented to the emergency department with complaints of worsening redness in his left leg. In the ER he underwent extensive evaluation. On arrival he had a temperature of 102.2 and was tachycardic at 115. He was found to have white blood cell count of 18.8, hemoglobin 10.7, hematocrit 31.9, platelets of 270. BUN 79, creatinine 3.21 up from his baseline of 20, CRP 58.3, and pro-calcitonin 0.47. Initial chest x-ray showed no active cardiopulmonary disease. Tib-fib x-ray showed no evidence of osteomyelitis. He was started on vancomycin secondary concern for left large summary cellulitis. He received IV fluids and vancomycin. Blood cultures were drawn. Orders were made for admission. Patient seen and examined at bedside. He reports that he is feeling tired today. He denies any chest pain, shortness breath, nausea, vomiting, or diarrhea. He reports that he thinks his leg is getting better. Objective - Vital Signs Vital signs: Vital Signs Temp 99.5 F 11/29/19 12:12 Pulse 116 H 11/29/19 09:42 Resp 18 11/29/19 09:42 BP 125/95 11/29/19 09:42 Pulse Ox 96 11/29/19 09:42 Intake & Output 11/28/19 11/29/19 11/29/19 18:59 06:59 18:59 Weight 136.078 kg Other: # Voids 2 - Exam General: Ill-appearing, no distress, appears at stated age Derm: Small anterior britt wound with surrounding chronic venous stasis changes and slight erythema with warmth, no sloughing, no odor, no discharge noted, warm, dry Head: atraumatic, normocephalic, symmetric Eyes: EOMI, no lid lag, anicteric sclera Mouth: no lip lesion, mucus membranes moist Cardiovascular: S1S2 reg, no murmur, positive posterior tibial pulse bilateral, Lungs: CTA bilateral, no rhonchi, no rales , no accessory muscle use Abdominal: soft, nontender to palpation, no guarding, no appreciable organomegaly, large ventral hernia nonreducible Ext: no gross muscle atrophy, 2+ edema, no contractures Neuro: CN II-XI grossly intact, no focal neuro deficits Psych: Alert, oriented, flat affect - Labs CBC & Chem 7: 11/29/19 06:36 11/29/19 06:36 Labs: Abnormal Lab Results - Last 24 Hours (Table) 11/28/19 11/28/19 11/28/19 Range/Units 20:54 20:55 20:55 WBC 18.8 H (3.8-10.6) k/uL RBC 3.35 L (4.30-5.90) m/uL Hgb 10.7 L (13.0-17.5) gm/dL Hct 31.9 L (39.0-53.0) % Neutrophils # 15.7 H (1.3-7.7) k/uL Lymphocytes # (1.0-4.8) k/uL BUN 79 H (9-20) mg/dL Creatinine 3.21 H (0.66-1.25) mg/dL Glucose 197 H (74-99) mg/dL POC Glucose (mg/dL) (75-99) mg/dL C-Reactive Protein 58.3 H (<10.0) mg/L Procalcitonin (0.02-0.09) ng/mL Urine Protein 2+ H (Negative) Urine Glucose (UA) Trace H (Negative) Ur Leukocyte Esterase Moderate H (Negative) Urine WBC 23 H (0-5) /hpf Amorphous Sediment Rare H (None) /hpf Urine Bacteria Occasional H (None) /hpf Urine Mucus Rare H (None) /hpf 11/28/19 11/29/19 11/29/19 Range/Units 20:55 06:36 06:36 WBC 18.7 H (3.8-10.6) k/uL RBC 2.98 L (4.30-5.90) m/uL Hgb 9.0 L D (13.0-17.5) gm/dL Hct 28.5 L (39.0-53.0) % Neutrophils # 16.9 H (1.3-7.7) k/uL Lymphocytes # 0.9 L (1.0-4.8) k/uL BUN 75 H (9-20) mg/dL Creatinine 3.03 H (0.66-1.25) mg/dL Glucose 157 H (74-99) mg/dL POC Glucose (mg/dL) (75-99) mg/dL C-Reactive Protein (<10.0) mg/L Procalcitonin 0.47 H (0.02-0.09) ng/mL Urine Protein (Negative) Urine Glucose (UA) (Negative) Ur Leukocyte Esterase (Negative) Urine WBC (0-5) /hpf Amorphous Sediment (None) /hpf Urine Bacteria (None) /hpf Urine Mucus (None) /hpf 11/29/19 11/29/19 Range/Units 07:26 12:11 WBC (3.8-10.6) k/uL RBC (4.30-5.90) m/uL Hgb (13.0-17.5) gm/dL Hct (39.0-53.0) % Neutrophils # (1.3-7.7) k/uL Lymphocytes # (1.0-4.8) k/uL BUN (9-20) mg/dL Creatinine (0.66-1.25) mg/dL Glucose (74-99) mg/dL POC Glucose (mg/dL) 163 H 125 H (75-99) mg/dL C-Reactive Protein (<10.0) mg/L Procalcitonin (0.02-0.09) ng/mL Urine Protein (Negative) Urine Glucose (UA) (Negative) Ur Leukocyte Esterase (Negative) Urine WBC (0-5) /hpf Amorphous Sediment (None) /hpf Urine Bacteria (None) /hpf Urine Mucus (None) /hpf Microbiology - Last 24 Hours (Table) 11/28/19 20:54 Urine Culture - Preliminary Urine,Voided Assessment and Plan Assessment: Cellulitis of the left lower leg with sepsis related to chronic wounds - Continue with vanvo add unasyn fro gram negative coverage - IV fluids - Await blood cultures - Procalcitonin is negative, concern for viral infection, COVID-19 testing pending Non reducible ventral hernia - CT obtained and shows fat containing only CKD IV- baseline Cr 3.2 - IVF fluids - avoid nephrotoxic agents - nephro recs appreciated - follow renal function - renal ultrasound with left renal cyst Diabetes insulin requiring - SSI and resume day time long acting hold night time long acting - follow BS - check A1C HTN, controlled - hydralazine, norvasc - folow BP Anemia of chronic renal disease - at baseline - follow CBC updated over the phone DVT prophylaxis: Heparin Discussed with: patient, nursing Anticipated discharge: 2-[address]: home health A total of 35 minutes was spent on the care of this complex patient more than 50% of the time was spent in counseling and care coordination.
[2019-11-29] MEDS: CALCITRIOL 0.25 MCG CAP PO SCH (16:49)
[2019-11-29 17:04] LABS: Glucose,Whole Blood 143 mg/dL (75-99)
[2019-11-29 21:52] LABS: Glucose,Whole Blood 137 mg/dL (75-99)
[2019-11-29] MEDS ORDERED: ACETAMINOPHEN IV (For NPO) 1,000 MG in EMPTY BAG 1 BAG IVPB ONE (22:30)
[2019-11-29] MEDS: ONDANSETRON 4 MG/2 ML VIAL IVP PRN (22:49)
[2019-11-29] MEDS: ATORVASTATIN 20 MG TAB PO SCH (23:09)
[2019-11-29] MEDS: hydrALAZINE HCL 25 MG TAB PO SCH (23:12)
--- NOTE | 2019-11-30 00:06 | P.CONS ---
History of Present Illness - Reason for Consult Consult date: 11/29/19 Fever Requesting physician: Mayo Montesinos - Chief Complaint Fever and weakness x 1 day - History of Present Illness Patient is a 69-year-old male who has been brought into the ER at [facility] for evaluation of fever and generalized weakness patient symptoms started the day he presented to the hospital patient complaining of feet weak all over and did have some difficulty walking patient apparently noted to be slightly confused and has difficulty remembering things however to be denies having any headache no photophobia no nausea no vomiting no chest pain or shortness of breath very minimal cough no abdominal pain or any diarrhea. Did have chronic swelling of the lower extremity seem to have slight more swelling and redness of the left leg with recent to her patient has been evaluated by the ER physician the patient was running a fever of 102 F the he was tachycardic on presentation the hospital O2 sats has been in the 90s patient did have a white count of 18.8 thousand in this patient with no lymphopenia on presentation he did have elevated CRP and procalcitonin urine has been mildly positive [place] PCR was negative patient did have a chest x-ray that was reported negative for any acute infiltrate patient also have CT abdominal pelvis that was negative for any acute abnormality patient was treated with vancomycin for his left lower extremity cellulitis subsequently Unasyn was added to cover for gram-negative and infectious disease was consulted for further management of antibiotic therapy patient overall is not a very good historian so most information has been obtained from review the chart, patient also have x-rays of the left leg did not show any evidence of osteomyelitis. Review of Systems Positive point has been mentioned in HPI rest of the systems are negative 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, chronic venous ulcer left anterior lower leg-treated in [facility], sepsis from L leg wound, chronic anemia, hyperkalemia, CKD-spouse states his kidneys function at 28%, DELVIN with Cpap, possible starting of dementia, confusion at times at night, bilateral lower leg varicosities, umbilical hernia, Hpylori, ambulates very little with walker and mostly wheelchair bound, recent UTI 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 Past Anesthesia/Blood Transfusion Reactions: No Reported Reaction Date of Last Stent Placement:: 10/2015 Past Psychological History: No Psychological Hx Reported Smoking Status: Never smoker Past Alcohol Use History: None Reported Past Drug Use History: None Reported - Past Family History Father Family Medical History: COPD Additional Family Medical History / Comment(s): AT AGE 64- EMPHYSEMA(SMOKER) Mother Family Medical History: Diabetes Mellitus, Hypertension Additional Family Medical History / Comment(s): LUPUS, LEG AMPUTATED. MOM IN HER 60'S Medications and Allergies Home Medications Medication Instructions Recorded Confirmed Type Allopurinol [Zyloprim] 100 mg PO DAILY 04/22/15 11/29/19 History Cholecalciferol [Vitamin D3 (25 5,000 unit PO DAILY 04/22/15 11/29/19 History Mcg = 1000 Iu)] Magnesium Oxide [Mag-Ox] 250 mg PO DAILY 04/22/15 11/29/19 History Fish Oil/Dha/Epa [Fish Oil 1,200 1 cap PO DAILY 09/06/15 11/29/19 History mg Fish Oil] Simvastatin [Zocor] 40 mg PO HS 09/06/15 11/29/19 History Ferrous Sulfate [Iron (65 MG 325 mg PO DAILY 10/23/15 11/29/19 History Elemental)] hydrALAZINE HCL [Apresoline] 25 mg PO TID 05/04/16 11/29/19 History Aspirin 81 mg PO DAILY 08/27/17 11/29/19 History amLODIPine [Norvasc] 5 mg PO BID 08/27/17 11/29/19 History Insulin Glargine [Lantus] 30 unit SQ DAILY 09/14/18 11/29/19 History Furosemide [Lasix] 40 mg PO DIRECTED 10/21/18 11/29/19 History Calcitriol 0.25 mcg PO DAILY 12/16/18 11/29/19 History Sodium Polystyrene Sulfon/Sorb 2.5 gm PO DAILY 12/16/18 11/29/19 History [Kionex 15 gm/60 ml Suspension] Gabapentin [Neurontin] 300 mg PO TID #30 cap 12/20/18 11/29/19 Rx HYDROcodone/APAP 10-325MG [[place] 1 tab PO TID PRN #9 tab 12/20/18 11/29/19 Rx 10-325] Insulin Glargine [Lantus] 20 units SQ HS 07/31/19 11/29/19 History Docusate [Colace] 100 mg PO DAILY 11/29/19 11/29/19 History Allergies Allergy/AdvReac Type Severity Reaction Status Date / Time aspirin [From Anacin] Allergy Rash/Hives Verified 11/29/19 12:35 sulfamethoxazole AdvReac affects Verified 11/29/19 12:35 [From Bactrim] kidneys trimethoprim [From Bactrim] AdvReac Unknown Verified 11/29/19 12:35 Physical Exam Vitals: Vital Signs Temp Pulse Resp BP Pulse Ox 11/29/19 12:12 99.5 F 11/29/19 09:42 102.7 F H 116 H 18 125/95 96 11/29/19 08:20 102.9 F H 110 H 18 145/105 98 11/29/19 07:20 105 H 20 147/57 97 11/29/19 05:00 98.1 F 110 H 16 140/71 97 11/29/19 04:00 75 14 119/53 96 11/29/19 03:00 79 14 138/63 98 11/29/19 02:00 100.9 F H 83 14 117/48 98 11/29/19 01:00 86 14 137/60 98 11/29/19 00:01 101.3 F H 91 18 130/105 98 11/28/19 22:20 108 H 18 152/71 98 11/28/19 22:10 102.4 F H 105 H 18 152/71 95 11/28/19 22:00 110 H 18 148/118 98 11/28/19 21:50 116 H 20 104/82 97 11/28/19 21:41 115 H 16 162/113 87 L 11/28/19 21:30 108 H 18 96 11/28/19 21:00 106 H 24 145/72 97 11/28/19 20:27 102.2 F H 115 H 20 129/75 92 L Intake and Output 11/28/19 11/29/19 11/29/19 22:59 06:59 14:59 Other: Weight 136.078 kg GENERAL DESCRIPTION: Middle-aged male lying in bed, no distress. No tachypnea or accessory muscle of respiration use. HEENT: Shows Pallor , no scleral icterus. Oral mucous membrane is dry. NECK: Trachea central, no thyromegaly. LUNGS: Unlabored breathing. Decreased intensity breath sound. No wheeze or crackle. HEART: S1, S2, regular rate and rhythm. ABDOMEN: Soft, no tenderness , guarding or rigidity EXTREMITIES: Bilateral extremity swelling her left leg is more swollen and slightly red and warm to touch sKIN: No rash, no masses palpable. NEUROLOGICAL: The patient is awake, alert, oriented x3, mood and affect normal. Results CBC & Chem 7: 11/29/19 06:36 11/29/19 06:36 Labs: Abnormal Lab Results - Last 24 Hours (Table) 11/28/19 11/28/19 11/28/19 Range/Units 20:54 20:55 20:55 WBC 18.8 H (3.8-10.6) k/uL RBC 3.35 L (4.30-5.90) m/uL Hgb 10.7 L (13.0-17.5) gm/dL Hct 31.9 L (39.0-53.0) % Neutrophils # 15.7 H (1.3-7.7) k/uL Lymphocytes # (1.0-4.8) k/uL BUN 79 H (9-20) mg/dL Creatinine 3.21 H (0.66-1.25) mg/dL Glucose 197 H (74-99) mg/dL POC Glucose (mg/dL) (75-99) mg/dL C-Reactive Protein 58.3 H (<10.0) mg/L Urine Protein 2+ H (Negative) Urine Glucose (UA) Trace H (Negative) Ur Leukocyte Esterase Moderate H (Negative) Urine WBC 23 H (0-5) /hpf Amorphous Sediment Rare H (None) /hpf Urine Bacteria Occasional H (None) /hpf Urine Mucus Rare H (None) /hpf 11/29/19 11/29/19 11/29/19 Range/Units 06:36 06:36 07:26 WBC 18.7 H (3.8-10.6) k/uL RBC 2.98 L (4.30-5.90) m/uL Hgb 9.0 L D (13.0-17.5) gm/dL Hct 28.5 L (39.0-53.0) % Neutrophils # 16.9 H (1.3-7.7) k/uL Lymphocytes # 0.9 L (1.0-4.8) k/uL BUN 75 H (9-20) mg/dL Creatinine 3.03 H (0.66-1.25) mg/dL Glucose 157 H (74-99) mg/dL POC Glucose (mg/dL) 163 H (75-99) mg/dL C-Reactive Protein (<10.0) mg/L Urine Protein (Negative) Urine Glucose (UA) (Negative) Ur Leukocyte Esterase (Negative) Urine WBC (0-5) /hpf Amorphous Sediment (None) /hpf Urine Bacteria (None) /hpf Urine Mucus (None) /hpf 11/29/19 Range/Units 12:11 WBC (3.8-10.6) k/uL RBC (4.30-5.90) m/uL Hgb (13.0-17.5) gm/dL Hct (39.0-53.0) % Neutrophils # (1.3-7.7) k/uL Lymphocytes # (1.0-4.8) k/uL BUN (9-20) mg/dL Creatinine (0.66-1.25) mg/dL Glucose (74-99) mg/dL POC Glucose (mg/dL) 125 H (75-99) mg/dL C-Reactive Protein (<10.0) mg/L Urine Protein (Negative) Urine Glucose (UA) (Negative) Ur Leukocyte Esterase (Negative) Urine WBC (0-5) /hpf Amorphous Sediment (None) /hpf Urine Bacteria (None) /hpf Urine Mucus (None) /hpf Microbiology - Last 24 Hours (Table) 11/28/19 20:54 Urine Culture - Preliminary Urine,Voided Assessment and Plan Assessment: 1-patient presented to hospital with sepsis in this patient who did have a fever tachycardia elevated white count source could have been more likely left lower extremity cellulitis in this patient did have diffuse swelling and redness with concern for possible streptococcal disease underlying gram-negative infection But not entirely excluded in this patient currently with no other obvious focus of infection no significant respiratory symptoms chest x-ray was negative abdominal soft little examination and CT abdominal pelvis was negative urine mildly positive 2-patient with chronic renal insufficiency and high risk of nephrotoxicity from vancomycin (1) Cellulitis of left lower leg Current Visit: Yes Status: Acute Code(s): L03.116 - CELLULITIS OF LEFT LOWER LIMB SNOMED Code(s): 675822355 (2) Sepsis Current Visit: Yes Status: Acute Code(s): A41.9 - SEPSIS, UNSPECIFIED ORGANISM SNOMED Code(s): 90271193 Plan: 1-discontinue vancomycin and Unasyn 2-we will start the patient on cefepime and daptomycin 3-check lower extremity Doppler for any evidence of DVT We will follow on clinical condition and cultures to further adjust medication if needed Thank you for this consultation we will follow the patient along with you Time with Patient: Greater than 30
[2019-11-30] MEDS: HEPARIN SODIUM,PORCINE 5,000 UNIT/ML 1 ML VIAL SQ SCH ×3 (00:30→15:40)
[2019-11-30] MEDS: SODIUM CHLORIDE 0.9% 1,000 ML IV SCH ×3 (00:30→21:07)
[2019-11-30] MEDS: CEFEPIME 1 GM in SODIUM CHLORIDE 0.9% 50 ML IVPB SCH ×2 (00:30→11:21)
[2019-11-30 07:56] LABS: Magnesium 1.6 mg/dL (1.6-2.3)
[2019-11-30 08:01] LABS: Glucose,Whole Blood 201 mg/dL (75-99)
[2019-11-30 08:02] LABS: Basophils % (A) 0 %; Eosinophils % (A) 0 %; HCT 29.9 % (39.0-53.0); HGB 9.2 gm/dL (13.0-17.5); Lymphocytes % (A) 4 %; MCH 29.7 pg (25.0-35.0); MCHC 30.8 g/dL (31.0-37.0); MCV 96.4 fL (80.0-100.0); Mean Platelet Volume 7.8; Monocytes % (A) 4 %; Neutrophils # (A) 23.9 k/uL (1.3-7.7); Neutrophils % (A) 92 %; Platelet Count 199 k/uL (150-450); RBC 3.11 m/uL (4.30-5.90); RDW 14.4 % (11.5-15.5); WBC 26.1 k/uL (3.8-10.6)
[2019-11-30 08:29] LABS: Vancomycin,Random 23.4 ug/mL
[2019-11-30] MEDS: ONDANSETRON 4 MG/2 ML VIAL IVP PRN (08:34)
--- NOTE | 2019-11-30 08:58 | XR ---
EXAMINATION TYPE: XR chest 2V DATE OF EXAM: 11/30/2019 COMPARISON: 11/28/2019 HISTORY: 69-year-old male with fever TECHNIQUE: AP and lateral views FINDINGS: Heart upper limits of normal in size. Mild elongation thoracic aorta. Mild interstitial prominence is unchanged, probably technical due to magnification from large patient body habitus. No new consolida tion or pleural effusion. IMPRESSION: Unchanged, no progressive infiltrate or consolidation. No definite acute process.
[2019-11-30] MEDS: hydrALAZINE HCL 25 MG TAB PO SCH ×3 (09:12→21:05)
[2019-11-30] MEDS: ASPIRIN 81 MG PO SCH (09:12)
[2019-11-30] MEDS: GABAPENTIN 300 MG CAP PO SCH (09:12)
[2019-11-30] MEDS: DOCUSATE 100 MG CAP PO SCH (09:12)
[2019-11-30] MEDS: INSULIN ASPART (NovoLOG) 100 UNIT/ML VIAL SQ SCH ×4 (09:12→21:06)
[2019-11-30] MEDS: INSULIN DETEMIR (LEVEMIR) 100 UNIT/ML SYR SQ SCH (09:12)
[2019-11-30] MEDS: amLODIPine 5 MG TAB PO SCH ×2 (09:12→21:05)
[2019-11-30] MEDS: ALLOPURINOL 100 MG TAB PO SCH (09:12)
[2019-11-30] MEDS: CALCITRIOL 0.25 MCG CAP PO SCH (09:18)
[2019-11-30 09:21] LABS: C Reactive Protein 392.1 mg/L (<10.0)
--- NOTE | 2019-11-30 11:01 | P.PN ---
Subjective Patient is seen in follow-up for chronic kidney disease. Patient has chronic kidney disease stage IV secondary to diabetic kidney disease with baseline creatinine near 3. Renal function stable. Patient states he vomited this morning. No diarrhea. He has been voiding but is incontinent. No chest pain or shortness of breath. Vital signs are stable. General: The patient appeared well nourished and normally developed. HEENT: Head exam is unremarkable. Neck is without jugular venous distension. LUNGS: Lungs are clear to auscultation and percussion. Breath sounds decreased. HEART: Rate and Rhythm are regular. ABDOMEN: Soft, nontender. Obese. EXTREMITITES: No edema. Erythema noted. No drainage. Objective - Vital Signs Vital signs: Vital Signs Temp 98.3 F 11/30/19 07:00 Pulse 58 L 11/30/19 08:00 Resp 16 11/30/19 08:00 BP 146/77 11/30/19 07:00 Pulse Ox 97 11/30/19 07:00 Intake & Output 11/29/19 11/30/19 11/30/19 18:59 06:59 18:59 Weight 136.078 kg Other: Voiding Method Urinal Urinal Diaper Diaper # Voids 2 2 1 # Bowel Movements 1 1 - Labs CBC & Chem 7: 11/30/19 07:01 11/30/19 07:01 Labs: Abnormal Lab Results - Last 24 Hours (Table) 11/28/19 11/29/19 11/29/19 Range/Units 20:55 06:36 12:11 WBC (3.8-10.6) k/uL RBC (4.30-5.90) m/uL Hgb (13.0-17.5) gm/dL Hct (39.0-53.0) % MCHC (31.0-37.0) g/dL Neutrophils # (1.3-7.7) k/uL D-Dimer (<0.60) mg/L FEU BUN (9-20) mg/dL Creatinine (0.66-1.25) mg/dL Glucose (74-99) mg/dL POC Glucose (mg/dL) 125 H (75-99) mg/dL Iron 9 L (65-175) ug/dL % Saturation 3.49 L (15.00-50.00) C-Reactive Protein (<10.0) mg/L Procalcitonin 0.47 H (0.02-0.09) ng/mL 11/29/19 11/29/19 11/30/19 Range/Units 17:03 21:40 07:01 WBC (3.8-10.6) k/uL RBC (4.30-5.90) m/uL Hgb (13.0-17.5) gm/dL Hct (39.0-53.0) % MCHC (31.0-37.0) g/dL Neutrophils # (1.3-7.7) k/uL D-Dimer (<0.60) mg/L FEU BUN 66 H (9-20) mg/dL Creatinine 2.99 H (0.66-1.25) mg/dL Glucose 178 H (74-99) mg/dL POC Glucose (mg/dL) 143 H 137 H (75-99) mg/dL Iron (65-175) ug/dL % Saturation (15.00-50.00) C-Reactive Protein 392.1 H (<10.0) mg/L Procalcitonin (0.02-0.09) ng/mL 11/30/19 11/30/19 11/30/19 Range/Units 07:01 07:01 07:57 WBC 26.1 H (3.8-10.6) k/uL RBC 3.11 L (4.30-5.90) m/uL Hgb 9.2 L (13.0-17.5) gm/dL Hct 29.9 L (39.0-53.0) % MCHC 30.8 L (31.0-37.0) g/dL Neutrophils # 23.9 H (1.3-7.7) k/uL D-Dimer 1.87 H (<0.60) mg/L FEU BUN (9-20) mg/dL Creatinine (0.66-1.25) mg/dL Glucose (74-99) mg/dL POC Glucose (mg/dL) 201 H (75-99) mg/dL Iron (65-175) ug/dL % Saturation (15.00-50.00) C-Reactive Protein (<10.0) mg/L Procalcitonin (0.02-0.09) ng/mL Microbiology - Last 24 Hours (Table) 11/28/19 20:54 Urine Culture - Preliminary Urine,Voided Gram Neg Bacilli 11/28/19 20:55 Blood Culture - Preliminary Blood No Growth after 24 hours Assessment and Plan Plan: Assessment: 1. Chronic kidney disease stage IV secondary to diabetic kidney disease. Baseline creatinine near 3-3.2. GFR at baseline. No hydronephrosis noted on CAT scan/uls. 2. Sepsis. Possible source lower extremity cellulitis and UTI. Urine culture positive for gram-negative bacilli. 3. Hypertension with chronic kidney disease. Controlled. 4. Insulin-dependent diabetes mellitus. 5. Anemia of chronic kidney disease. Severe iron deficiency noted. Plan: I will decrease the rate of normal saline to 75 mL an hour. Follow-up cultures. IV iron 3 doses. First dose today. Avoid nephrotoxins. Diuretics held. Continue to monitor renal function and urine output.
[2019-11-30 11:54] LABS: Glucose,Whole Blood 198 mg/dL (75-99)
[2019-11-30] MEDS: SODIUM FERRIC GLUCONAT-SUCROSE 125 MG in SODIUM CHLORIDE 0.9% 100 ML IVPB SCH (11:54)
[2019-11-30] MEDS ORDERED: METOCLOPRAMIDE 5 MG TAB PO SCH (12:30)
[2019-11-30] MEDS: METOCLOPRAMIDE 5 MG/ML 2 ML VIAL IVP SCH ×2 (14:20→17:23)
[2019-11-30] MEDS: GABAPENTIN 100 MG CAP PO SCH ×2 (15:39→21:05)
[2019-11-30 17:23] LABS: Glucose,Whole Blood 199 mg/dL (75-99)
[2019-11-30 20:35] LABS: Ferritin 373.2 ng/mL (22.0-322.0)
[2019-11-30 20:37] LABS: Glucose,Whole Blood 131 mg/dL (75-99)
[2019-11-30] MEDS: ATORVASTATIN 20 MG TAB PO SCH (21:05)
--- NOTE | 2019-11-30 21:54 | P.PN ---
Progress Note - Text Progress Note Date: 11/30/19 Presenting complaint: Left leg crepitus Interim history: Patient is a 69-year-old male with a past medical history of chronic venous stasis ulcers with recurrent cellulitis of the lower extremities, sleep apnea, hypertension, diabetes mellitus type 2 and chronic kidney disease stage I V who presented to the emergency department with complaints of worsening redness in his left leg. In the ER he underwent extensive evaluation. On arrival he had a temperature of 102.2 and was tachycardic at 115. He was found to have white blood cell count of 18.8, hemoglobin 10.7, hematocrit 31.9, platelets of 270. BUN 79, creatinine 3.21 up from his baseline of 20, CRP 58.3, and pro-calcitonin 0.47. Initial chest x-ray showed no active cardiopulmonary disease. Tib-fib x-ray showed no evidence of osteomyelitis. He was started on vancomycin secondary concern for left leg cellulitis. He received IV fluids and vancomycin. Blood cultures were drawn. Admitted with a diagnosis of sepsis. [place] to left lower external cellulitis and also UTI and cystitis Today-patient's having nausea vomiting. Has been on IV antibiotics. No fever no chills. Tired. Review of systems: Was done for constitutional, cardiovascular, GI, pulmonary. relevant finding as above Active Medications Acetaminophen (Tylenol Tab) 1,000 mg PO Q6HR PRN PRN Reason: Fever>101 Last Admin: 11/29/19 16:22 Dose: 1,000 mg Documented by: Hydrocodone Bitart/Acetaminophen ([place] 10) 1 each PO TID PRN PRN Reason: Pain Allopurinol (Zyloprim) 100 mg PO DAILY [facility] Last Admin: 11/30/19 09:12 Dose: 100 mg Documented by: Amlodipine Besylate (Norvasc) 5 mg PO BID [facility] Last Admin: 11/30/19 21:05 Dose: 5 mg Documented by: Aspirin (Aspirin) 81 mg PO DAILY [facility] Last Admin: 11/30/19 09:12 Dose: 81 mg Documented by: Atorvastatin Calcium (Lipitor) 20 mg PO HS [facility] Last Admin: 11/30/19 21:05 Dose: 20 mg Documented by: Calcitriol (Rocaltrol) 0.25 mcg PO DAILY [facility] Last Admin: 11/30/19 09:18 Dose: 0.25 mcg Documented by: Docusate Sodium (Colace) 100 mg PO DAILY [facility] Last Admin: 11/30/19 09:12 Dose: 100 mg Documented by: Gabapentin (Neurontin) 100 mg PO TID [facility] Last Admin: 11/30/19 21:05 Dose: 100 mg Documented by: Heparin Sodium (Porcine) (Heparin) 5,000 unit SQ Q8HR [facility] Last Admin: 11/30/19 15:40 Dose: 5,000 unit Documented by: Hydralazine HCl (Apresoline) 25 mg PO TID [facility] Last Admin: 11/30/19 21:05 Dose: 25 mg Documented by: Sodium Chloride (Saline 0.9%) 1,000 mls @ 75 mls/hr IV .[id number] [facility] Last Admin: 11/30/19 21:07 Dose: 75 mls/hr Documented by: Daptomycin 800 mg/ Sodium (Chloride) 50 mls @ 100 mls/hr IVPB Q48H [facility]; Protocol Last Admin: 11/30/19 01:19 Dose: 100 mls/hr Documented by: Cefepime HCl 1 gm/ Sodium (Chloride) 50 mls @ 100 mls/hr IVPB Q12H [facility] Last Admin: 11/30/19 11:21 Dose: 100 mls/hr Documented by: Ferric Sodium Gluconate 125 mg (/ Sodium Chloride) 110 mls @ 100 mls/hr IVPB DAILY [facility] Stop: 12/03/19 12:01 Last Admin: 11/30/19 11:54 Dose: 100 mls/hr Documented by: Insulin Aspart (Novolog) 0 unit SQ ACHS [facility]; Protocol Last Admin: 11/30/19 21:06 Dose: 1 unit Documented by: Insulin Detemir (Levemir) 30 unit SQ DAILY@0700 [facility] Last Admin: 11/30/19 09:12 Dose: 30 unit Documented by: Metoclopramide HCl (Reglan) 10 mg IVP Q6HR [facility] Last Admin: 11/30/19 17:23 Dose: 10 mg Documented by: Naloxone HCl (Narcan) 0.2 mg IV Q2M PRN PRN Reason: Opioid Reversal Ondansetron HCl (Zofran) 4 mg IVP Q6HR PRN PRN Reason: Nausea And Vomiting Last Admin: 11/30/19 08:34 Dose: 4 mg Documented by: On examination: VITAL SIGNS: 98.6, 80, 20, 188/66, 96% on 2 L GENERAL APPEARANCE: BMI 43.0, laying in bed, tired appearing. HEENT: Normal external appearance of nose and ear. Oral cavity normal EYES: Pupils equal. Conjunctiva normal. NECK: JVD not raised. Mass not palpable. RESPIRATORY: Respiratory effort normal. Lungs clear to auscultation. CARDIOVASCULAR: First and second sounds normal. No edema. ABDOMEN: Soft. Liver and spleen not palpable. No tenderness. No mass palpable. PSYCHIATRY: Alert and oriented x3. Mood and affect normal. DERMATOLOGICAL: Left lower extremity redness INVESTIGATIONS, reviewed in the clinical context: White count 26.1, hemoglobin 9.2, platelets 199 BUNs 66, creatinine 2.99 UA positive for leukoesterase, WBC Urine culture positive for gram-negative bacilli Assessment: -Acute UTI with cystitis, causing's sepsis, POA -Acute left lower extremity cellulitis -Morbid obesity BMI 43.0 -COPD -Diabetes mellitus type 2 -Essential hypertension -Primary osteoarthritis -Chronic kidney disease -Diabetic peripheral neuropathy -Chronic lower extremity wound for which [facility] -Obstructive sleep apnea uses CPAP -Chronic umbilical hernia -Mild cognitive impairment -Chronic gait dysfunction sometimes uses a walker otherwise mainly a chair -Significant nausea vomiting could be an element of gastroparesis. Plan: Continue current medication treatment plan. Patient is on IV cefepime. Believe the main source of sepsis is UTI. Patient also on IV daptomycin. We'll add IV Reglan. IV fluids to continue. Follow with infectious disease.
--- NOTE | 2019-11-30 23:49 | PN ---
PROGRESS NOTE DATE OF SERVICE: 11/30/2019 REASON FOR FOLLOWUP: Fever and question of left lower extremity cellulitis. INTERVAL HISTORY: The patient is currently afebrile. The patient is breathing comfortably. Denies having any chest pain. No shortness of breath or cough and denies any worsening pain to the left leg area. Main symptom has been vomiting and diarrhea. PHYSICAL EXAMINATION: On examination, his blood pressure is 137/66, pulse of 67, temperature 99.1. He is 91% on room air. General description is an elderly male lying in bed in no distress. RESPIRATORY SYSTEM: Unlabored breathing, clear to auscultation anteriorly. HEART: S1, S2. Regular rate and rhythm. ABDOMEN: Soft, no tenderness. Left leg which did have some swelling and minimal redness, no drainage. LABS: Creatinine of 2.99. Procalcitonin was 11.17, white count of 26.1. Urine showing gram- negative bacilli. DIAGNOSTIC IMPRESSION AND PLAN: Patient with fever with concern for urinary tract infection and left lower extremity cellulitis. The patient is currently covered with daptomycin from which to continue and seemed to have responded as far as fever is concerned. Will continue and will monitor his clinical course closely. MMODL / IJN: [id number] /
[2019-12-01] MEDS: HEPARIN SODIUM,PORCINE 5,000 UNIT/ML 1 ML VIAL SQ SCH ×4 (00:09→23:43)
[2019-12-01] MEDS: METOCLOPRAMIDE 5 MG/ML 2 ML VIAL IVP SCH ×2 (00:10→05:47)
[2019-12-01] MEDS: CEFEPIME 1 GM in SODIUM CHLORIDE 0.9% 50 ML IVPB SCH (00:10)
[2019-12-01 06:50] LABS: Glucose,Whole Blood 138 mg/dL (75-99)
[2019-12-01] MEDS: INSULIN ASPART (NovoLOG) 100 UNIT/ML VIAL SQ SCH ×4 (07:31→20:16)
[2019-12-01] MEDS: INSULIN DETEMIR (LEVEMIR) 100 UNIT/ML SYR SQ SCH (07:31)
[2019-12-01] MEDS: hydrALAZINE HCL 25 MG TAB PO SCH ×3 (07:32→20:16)
[2019-12-01] MEDS: amLODIPine 5 MG TAB PO SCH ×2 (07:32→20:16)
[2019-12-01] MEDS: CALCITRIOL 0.25 MCG CAP PO SCH (07:32)
[2019-12-01] MEDS: ASPIRIN 81 MG PO SCH (07:32)
[2019-12-01] MEDS: DOCUSATE 100 MG CAP PO SCH (07:32)
[2019-12-01] MEDS: ALLOPURINOL 100 MG TAB PO SCH (07:32)
[2019-12-01] MEDS: GABAPENTIN 100 MG CAP PO SCH ×3 (07:32→20:16)
[2019-12-01 08:12] LABS: Calcium 9.3 mg/dL (8.4-10.2); Magnesium 1.9 mg/dL (1.6-2.3); Potassium 3.4 mmol/L (3.5-5.1)
[2019-12-01] MEDS: SODIUM CHLORIDE 0.9% 1,000 ML IV SCH ×2 (09:28→20:16)
[2019-12-01] MEDS: SODIUM FERRIC GLUCONAT-SUCROSE 125 MG in SODIUM CHLORIDE 0.9% 100 ML IVPB SCH (09:28)
[2019-12-01 11:52] LABS: Glucose,Whole Blood 191 mg/dL (75-99)
[2019-12-01] MEDS ORDERED: POTASSIUM CHLORIDE ER 20 MEQ TAB.ER PO STA (12:01)
--- NOTE | 2019-12-01 12:16 | P.PN ---
Subjective Patient is seen in follow-up for chronic kidney disease. Patient has chronic kidney disease stage IV secondary to diabetic kidney disease with baseline creatinine near 3. Renal function stable. No vomiting today. Oral intake gradually improving. He has been voiding but is incontinent. No chest pain or shortness of breath. Vital signs are stable. General: The patient appeared well nourished and normally developed. HEENT: Head exam is unremarkable. Neck is without jugular venous distension. LUNGS: Lungs are clear to auscultation and percussion. Breath sounds decreased. HEART: Rate and Rhythm are regular. ABDOMEN: Soft, nontender. Obese. EXTREMITITES: No edema. Erythema noted. No drainage. Objective - Vital Signs Vital signs: Vital Signs Temp 98.7 F 12/01/19 07:27 Pulse 91 12/01/19 08:00 Resp 17 12/01/19 08:00 BP 170/76 12/01/19 07:27 Pulse Ox 97 12/01/19 07:27 Intake & Output 11/30/19 12/01/19 12/01/19 18:59 06:59 18:59 Intake Total 100 120 Output Total 600 Balance -500 120 Intake: Intake, IV Titration 100 Amount Sodium Ferric Gluconat- 100 Sucrose 125 mg In Sodium Chloride 0.9% 100 ml @ 100 mls/hr IVPB DAILY [facility] Rx#:[id number] Oral 120 Output: Emesis 600 Other: Voiding Method Urinal Urinal Diaper Diaper # Voids 2 1 # Bowel Movements 2 - Labs CBC & Chem 7: 11/30/19 07:01 12/01/19 06:34 Labs: Abnormal Lab Results - Last 24 Hours (Table) 11/30/19 11/30/19 11/30/19 Range/Units 07:01 07:01 17:10 Potassium (3.5-5.1) mmol/L BUN (9-20) mg/dL Creatinine (0.66-1.25) mg/dL Glucose (74-99) mg/dL POC Glucose (mg/dL) 199 H (75-99) mg/dL Ferritin 373.2 H (22.0-322.0) ng/mL Procalcitonin 11.17 H (0.02-0.09) ng/mL 11/30/19 12/01/19 12/01/19 Range/Units 20:35 06:34 06:48 Potassium 3.4 L (3.5-5.1) mmol/L BUN 65 H (9-20) mg/dL Creatinine 2.90 H (0.66-1.25) mg/dL Glucose 124 H (74-99) mg/dL POC Glucose (mg/dL) 131 H 138 H (75-99) mg/dL Ferritin (22.0-322.0) ng/mL Procalcitonin (0.02-0.09) ng/mL 12/01/19 Range/Units 11:50 Potassium (3.5-5.1) mmol/L BUN (9-20) mg/dL Creatinine (0.66-1.25) mg/dL Glucose (74-99) mg/dL POC Glucose (mg/dL) 191 H (75-99) mg/dL Ferritin (22.0-322.0) ng/mL Procalcitonin (0.02-0.09) ng/mL Microbiology - Last 24 Hours (Table) 11/28/19 20:55 Blood Culture - Preliminary Blood No Growth after 48 hours 11/28/19 20:54 Urine Culture - Final Urine,Voided Escherichia coli Assessment and Plan Plan: Assessment: 1. Chronic kidney disease stage IV secondary to diabetic kidney disease. Baseline creatinine near 3-3.2. GFR at baseline. No hydronephrosis noted on CAT scan/uls. 2. Sepsis. Possible source lower extremity cellulitis and UTI. Urine culture positive for E. coli. 3. Hypertension with chronic kidney disease. Blood pressure on the higher side. 4. Insulin-dependent diabetes mellitus. 5. Anemia of chronic kidney disease. Severe iron deficiency noted. 6. Hypokalemia from poor intake. Magnesium normal. Plan: I will decrease the rate of normal saline to 50 mL an hour - can Hep-Lock tomorrow. IV iron 3 doses. Second dose today. Avoid nephrotoxins. Diuretics held. Continue to monitor renal function and urine output. Replace potassium. 40 meq once today. Hydralazine added today for blood pressure.
[2019-12-01] MEDS: ERTAPENEM 0.5 GM in SODIUM CHLORIDE 0.9% 50 ML IVPB SCH (12:21)
[2019-12-01] MEDS: METOCLOPRAMIDE 10 MG TAB PO SCH ×2 (13:14→17:15)
--- NOTE | 2019-12-01 15:10 | PN ---
PROGRESS NOTE DATE OF SERVICE: 12/01/2019 REASON FOR FOLLOW UP: Fever, likely ESBL E coli urinary tract infection. INTERVAL HISTORY: The patient is currently afebrile. The patient is more awake, alert. He is breathing comfortably. Denies having any chest pain or shortness of breath or cough. No abdominal pain. Some symptoms, but no worsening. No diarrhea or pain to the left leg. PHYSICAL EXAMINATION: Blood pressure 173/76, pulse of 91, temperature 98.7. He is 97% on 2 L nasal cannula. General description is an elderly male, lying in bed in no distress. RESPIRATORY SYSTEM: Unlabored breathing, clear to auscultation anteriorly. HEART: S1, S2. Regular rate and rhythm. ABDOMEN: Soft, no tenderness. LABS: Urine has been finalized with ESBL E coli. Blood culture has been negative. DIAGNOSTIC IMPRESSION AND PLAN: Patient admitted to the hospital with sepsis concern likely for a urinary tract infection or cellulitis with the urine finalized with the ESBL. His antibiotic therapy to Invanz to discontinue daptomycin and monitor clinical course closely. MMODL / IJN: [id number] /
[2019-12-01 17:09] LABS: Glucose,Whole Blood 181 mg/dL (75-99)
[2019-12-01 19:59] LABS: Glucose,Whole Blood 202 mg/dL (75-99)
[2019-12-01] MEDS: ATORVASTATIN 20 MG TAB PO SCH (20:16)
--- NOTE | 2019-12-01 22:34 | P.PN ---
Progress Note - Text Progress Note Date: 12/01/19 Presenting complaint: Fever Interim history: Patient is a 69-year-old male with a past medical history of chronic venous stasis ulcers with recurrent cellulitis of the lower extremities, sleep apnea, hypertension, diabetes mellitus type 2 and chronic kidney disease stage IV who presented to the emergency department with complaints of worsening redness in his left leg. In the ER he underwent extensive evaluation. On arrival he had a temperature of 102.2 and was tachycardic at 115. He was found to have white blood cell count of 18.8, hemoglobin 10.7, hematocrit 31.9, platelets of 270. BUN 79, creatinine 3.21 up from his baseline of 20, CRP 58.3, and pro-calcitonin 0.47. Initial chest x-ray showed no active cardiopulmonary disease. Tib-fib x-ray showed no evidence of osteomyelitis. He was started on vancomycin secondary concern for left leg cellulitis. He received IV fluids and vancomycin. Blood cultures were drawn. Admitted with a diagnosis of sepsis. [place] to left lower external cellulitis and also UTI and cystitis. On IV daptomycin and IV cefepime. Today-patient started and IV Reglan yesterday. Nausea vomiting much improved. Oral intake improving. Review of systems: Was done for constitutional, cardiovascular, GI, pulmonary. relevant finding as above Active Medications Acetaminophen (Tylenol Tab) 1,000 mg PO Q6HR PRN PRN Reason: Fever>101 Last Admin: 11/29/19 16:22 Dose: 1,000 mg Documented by: Hydrocodone Bitart/Acetaminophen ([place] 10) 1 each PO TID PRN PRN Reason: Pain Allopurinol (Zyloprim) 100 mg PO DAILY [facility] Last Admin: 12/01/19 07:32 Dose: 100 mg Documented by: Amlodipine Besylate (Norvasc) 5 mg PO BID [facility] Last Admin: 12/01/19 20:16 Dose: 5 mg Documented by: Aspirin (Aspirin) 81 mg PO DAILY [facility] Last Admin: 12/01/19 07:32 Dose: 81 mg Documented by: Atorvastatin Calcium (Lipitor) 20 mg PO HS [facility] Last Admin: 12/01/19 20:16 Dose: 20 mg Documented by: Calcitriol (Rocaltrol) 0.25 mcg PO DAILY [facility] Last Admin: 12/01/19 07:32 Dose: 0.25 mcg Documented by: Docusate Sodium (Colace) 100 mg PO DAILY [facility] Last Admin: 12/01/19 07:32 Dose: 100 mg Documented by: Gabapentin (Neurontin) 100 mg PO TID [facility] Last Admin: 12/01/19 20:16 Dose: 100 mg Documented by: Heparin Sodium (Porcine) (Heparin) 5,000 unit SQ Q8HR [facility] Last Admin: 12/01/19 15:29 Dose: 5,000 unit Documented by: Hydralazine HCl (Apresoline) 25 mg PO TID [facility] Last Admin: 12/01/19 20:16 Dose: 25 mg Documented by: Sodium Chloride (Saline 0.9%) 1,000 mls @ 50 mls/hr IV .Q20H [facility] Last Admin: 12/01/19 20:16 Dose: 50 mls/hr Documented by: Ferric Sodium Gluconate 125 mg (/ Sodium Chloride) 110 mls @ 100 mls/hr IVPB DAILY [facility] Stop: 12/03/19 12:01 Last Admin: 12/01/19 09:28 Dose: 100 mls/hr Documented by: Ertapenem 0.5 gm/ Sodium (Chloride) 50 mls @ 100 mls/hr IVPB DAILY [facility]; Protocol Last Admin: 12/01/19 12:21 Dose: 100 mls/hr Documented by: Insulin Aspart (Novolog) 0 unit SQ ACHS [facility]; Protocol Last Admin: 12/01/19 20:16 Dose: 4 unit Documented by: Insulin Detemir (Levemir) 30 unit SQ DAILY@0700 [facility] Last Admin: 12/01/19 07:31 Dose: 30 unit Documented by: Metoclopramide HCl (Reglan) 10 mg PO AC-TID [facility] Last Admin: 12/01/19 17:15 Dose: 10 mg Documented by: Naloxone HCl (Narcan) 0.2 mg IV Q2M PRN PRN Reason: Opioid Reversal Ondansetron HCl (Zofran) 4 mg IVP Q6HR PRN PRN Reason: Nausea And Vomiting Last Admin: 11/30/19 08:34 Dose: 4 mg Documented by: On examination: VITAL SIGNS: 98.7, 91, 17, hard and 70/76, 87% on 2 L GENERAL APPEARANCE: Laying in bed, appearing more comfortable HEENT: Normal external appearance of nose and ear. Oral cavity normal EYES: Pupils equal. Conjunctiva normal. NECK: JVD not raised. Mass not palpable. RESPIRATORY: Respiratory effort normal. Lungs clear to auscultation. CARDIOVASCULAR: First and second sounds normal. No edema. ABDOMEN: Soft. Liver and spleen not palpable. No tenderness. No mass palpable. PSYCHIATRY: Alert and oriented x3. Mood and affect normal. DERMATOLOGICAL: Left lower extremity redness/wound INVESTIGATIONS, reviewed in the clinical context: White count 26.1, hemoglobin 9.2, platelets 199 BUNs 66, creatinine 2.99 UA positive for leukoesterase, WBC Urine culture-E. coli/ESBL Assessment: -Acute UTI with cystitis, from E. coli/ESBL causing's sepsis, POA -Acute left lower extremity cellulitis -Morbid obesity BMI 43.0 -COPD -Diabetes mellitus type 2 -Essential hypertension -Primary osteoarthritis -Chronic kidney disease -Diabetic peripheral neuropathy -Chronic lower extremity wound [facility] which [facility] -Obstructive sleep apnea uses CPAP -Chronic umbilical hernia -Mild cognitive impairment -Chronic gait dysfunction sometimes uses a walker otherwise mainly a chair -Significant nausea vomiting could be an element of gastroparesis. Plan: -IV Reglan switched over to by mouth Reglan. Antibiotics changed by Dr. Watson to IV ertapenem. Daptomycin discontinued.
[2019-12-01] MEDS ORDERED: METOCLOPRAMIDE 5 MG TAB PO PRN (22:35)
[2019-12-02 06:52] LABS: Glucose,Whole Blood 183 mg/dL (75-99)
[2019-12-02] MEDS: INSULIN DETEMIR (LEVEMIR) 100 UNIT/ML SYR SQ SCH (07:41)
[2019-12-02] MEDS: INSULIN ASPART (NovoLOG) 100 UNIT/ML VIAL SQ SCH ×4 (07:42→20:44)
[2019-12-02] MEDS: HEPARIN SODIUM,PORCINE 5,000 UNIT/ML 1 ML VIAL SQ SCH ×2 (07:44→15:51)
[2019-12-02] MEDS: hydrALAZINE HCL 25 MG TAB PO SCH ×3 (07:45→19:34)
[2019-12-02] MEDS: ALLOPURINOL 100 MG TAB PO SCH (07:45)
[2019-12-02] MEDS: amLODIPine 5 MG TAB PO SCH ×2 (07:45→19:35)
[2019-12-02] MEDS: ASPIRIN 81 MG PO SCH (07:46)
[2019-12-02] MEDS: GABAPENTIN 100 MG CAP PO SCH ×3 (07:46→20:49)
[2019-12-02] MEDS: CALCITRIOL 0.25 MCG CAP PO SCH (07:46)
[2019-12-02 08:56] LABS: HCT 25.5 % (39.0-53.0); HGB 8.6 gm/dL (13.0-17.5); MCH 32.3 pg (25.0-35.0); MCHC 33.8 g/dL (31.0-37.0); MCV 95.5 fL (80.0-100.0); Mean Platelet Volume 7.6; Platelet Count 238 k/uL (150-450); RBC 2.67 m/uL (4.30-5.90); RDW 14.4 % (11.5-15.5)
[2019-12-02 09:09] LABS: Potassium 3.4 mmol/L (3.5-5.1)
[2019-12-02] MEDS: DOCUSATE 100 MG CAP PO SCH (09:27)
[2019-12-02] MEDS: ERTAPENEM 0.5 GM in SODIUM CHLORIDE 0.9% 50 ML IVPB SCH (09:46)
[2019-12-02] MEDS: SODIUM FERRIC GLUCONAT-SUCROSE 125 MG in SODIUM CHLORIDE 0.9% 100 ML IVPB SCH (10:34)
[2019-12-02] MEDS ORDERED: POTASSIUM CHLORIDE ER 20 MEQ TAB.ER PO STA (11:16)
[2019-12-02 11:52] LABS: Glucose,Whole Blood 207 mg/dL (75-99)
--- NOTE | 2019-12-02 13:19 | PN ---
PROGRESS NOTE Patient is seen for followup for chronic kidney disease and acute kidney injury. The patient is currently comfortable, awake, he is not in any acute distress. Renal function has been improving. PHYSICAL EXAMINATION: On examination, blood pressure 150/60, heart rate 80 per minute, he is afebrile. Examination of the heart S1, S2. Examination of the lungs, decreased breath sounds at bases. Abdomen is soft, nontender. Examination of lower extremities shows no significant edema. LABS: Show sodium 136, potassium 3.4, BUN 59, serum creatinine 2.36, hemoglobin was 8.6 g/dL. ASSESSMENT: 1. Acute kidney injury with improvement in renal function, serum creatinine down to 2.3 from 3.2. Patient is maintained on gentle IV hydration. He has good urine output. He is actually incontinent. 2. Chronic kidney disease stage 4 secondary to diabetic kidney disease, baseline creatinine close to 3. 3. Sepsis with left lower extremity cellulitis and urinary tract infection. 4. Escherichia coli urinary tract infection. 5. Hypertension with chronic kidney disease. 6. Anemia of chronic disease with severe iron deficiency noted. 7. Hypokalemia associated with poor oral intake. PLAN: Continue IV fluids for now. Encourage increased oral intake. Monitor electrolytes. Continue with the Rocaltrol. MMODL / IJN: [id number] /
[2019-12-02 16:51] LABS: Glucose,Whole Blood 185 mg/dL (75-99)
[2019-12-02] MEDS: ATORVASTATIN 20 MG TAB PO SCH (19:35)
[2019-12-02] MEDS: SODIUM CHLORIDE 0.9% 1,000 ML IV SCH (20:09)
[2019-12-02 20:36] LABS: Glucose,Whole Blood 181 mg/dL (75-99)
[2019-12-02] MEDS: ONDANSETRON 4 MG/2 ML VIAL IVP PRN (20:44)
[2019-12-02 21:52] LABS: Hemoglobin A1C 7.4 % (4.0-6.0)
--- NOTE | 2019-12-02 23:08 | P.PN ---
Progress Note - Text Progress Note Date: 12/02/19 Presenting complaint: Fever Interim history: Patient is a 69-year-old male with a past medical history of chronic venous stasis ulcers with recurrent cellulitis of the lower extremities, sleep apnea, hypertension, diabetes mellitus type 2 and chronic kidney disease stage IV who presented to the emergency department with complaints of worsening redness in his left leg. In the ER he underwent extensive evaluation. On arrival he had a temperature of 102.2 and was tachycardic at 115. He was found to have white blood cell count of 18.8, hemoglobin 10.7, hematocrit 31.9, platelets of 270. BUN 79, creatinine 3.21 up from his baseline of 20, CRP 58.3, and pro-calcitonin 0.47. Initial chest x-ray showed no active cardiopulmonary disease. Tib-fib x-ray showed no evidence of osteomyelitis. He was started on vancomycin secondary concern for left leg cellulitis. He received IV fluids and vancomycin. Blood cultures were drawn. Admitted with a diagnosis of sepsis. [place] to predominantly UTI and cystitis. On IV daptomycin and IV cefepime.IV daptomycin was then discontinued.urine culture positive for E. coli ESBL Today-doing much better. Tolerating diet. No fever.getting IV ertapenem. Review of systems: Was done for constitutional, cardiovascular, GI, pulmonary. relevant finding as above Active Medications Acetaminophen (Tylenol Tab) 1,000 mg PO Q6HR PRN PRN Reason: Fever>101 Last Admin: 11/29/19 16:22 Dose: 1,000 mg Documented by: Hydrocodone Bitart/Acetaminophen ([place] 10) 1 each PO TID PRN PRN Reason: Pain Allopurinol (Zyloprim) 100 mg PO DAILY [facility] Last Admin: 12/02/19 07:45 Dose: 100 mg Documented by: Amlodipine Besylate (Norvasc) 5 mg PO BID [facility] Last Admin: 12/02/19 19:35 Dose: 5 mg Documented by: Aspirin (Aspirin) 81 mg PO DAILY [facility] Last Admin: 12/02/19 07:46 Dose: 81 mg Documented by: Atorvastatin Calcium (Lipitor) 20 mg PO HS [facility] Last Admin: 12/02/19 19:35 Dose: 20 mg Documented by: Calcitriol (Rocaltrol) 0.25 mcg PO DAILY [facility] Last Admin: 05/30/20 07:46 Dose: 0.25 mcg Documented by: Docusate Sodium (Colace) 100 mg PO DAILY [facility] Last Admin: 12/02/19 09:27 Dose: Not Given Documented by: Gabapentin (Neurontin) 100 mg PO TID [facility] Last Admin: 12/02/19 20:49 Dose: 100 mg Documented by: Heparin Sodium (Porcine) (Heparin) 5,000 unit SQ Q8HR [facility] Last Admin: 12/02/19 15:51 Dose: 5,000 unit Documented by: Hydralazine HCl (Apresoline) 25 mg PO TID [facility] Last Admin: 12/02/19 19:34 Dose: 25 mg Documented by: Sodium Chloride (Saline 0.9%) 1,000 mls @ 50 mls/hr IV .Q20H [facility] Last Admin: 12/02/19 20:09 Dose: Not Given Documented by: Ferric Sodium Gluconate 125 mg (/ Sodium Chloride) 110 mls @ 100 mls/hr IVPB DAILY [facility] Stop: 12/03/19 12:01 Last Admin: 12/02/19 10:34 Dose: 100 mls/hr Documented by: Ertapenem 0.5 gm/ Sodium (Chloride) 50 mls @ 100 mls/hr IVPB DAILY [facility]; Protocol Last Admin: 12/02/19 09:46 Dose: 100 mls/hr Documented by: Insulin Aspart (Novolog) 0 unit SQ ACHS [facility]; Protocol Last Admin: 12/02/19 20:44 Dose: 3 unit Documented by: Insulin Detemir (Levemir) 30 unit SQ DAILY@0700 [facility] Last Admin: 12/02/19 07:41 Dose: 30 unit Documented by: Metoclopramide HCl (Reglan) 5 mg PO AC-TID PRN PRN Reason: Nausea Naloxone HCl (Narcan) 0.2 mg IV Q2M PRN PRN Reason: Opioid Reversal Ondansetron HCl (Zofran) 4 mg IVP Q6HR PRN PRN Reason: Nausea And Vomiting Last Admin: 12/02/19 20:44 Dose: 4 mg Documented by: On examination: VITAL SIGNS: 98, 83, 18, 123/63, 97% on room air GENERAL APPEARANCE: Laying in bed, comfortable HEENT: Normal external appearance of nose and ear. Oral cavity normal EYES: Pupils equal. Conjunctiva normal. NECK: JVD not raised. Mass not palpable. RESPIRATORY: Respiratory effort normal. Lungs clear to auscultation. CARDIOVASCULAR: First and second sounds normal. No edema. ABDOMEN: Soft. Liver and spleen not palpable. No tenderness. No mass palpable. PSYCHIATRY: Alert and oriented x3. Mood and affect normal. DERMATOLOGICAL: Left lower extremity redness/wound-improved INVESTIGATIONS, reviewed in the clinical context: White count 14 hemoglobin 8.6 potassium 3.4 bun 59 creatinine 2.36 Previous testing White count 26.1, hemoglobin 9.2, platelets 199 BUNs 66, creatinine 2.99 UA positive for leukoesterase, WBC Urine culture-E. coli/ESBL Assessment: -Acute UTI with cystitis, from E. coli/ESBL causing's sepsis, POA-responding -Acute on chronicleft lower extremity cellulitis-improved -Morbid obesity BMI 43.0 -COPD -Diabetes mellitus type 2 -Essential hypertension -Primary osteoarthritis -Chronic kidney disease -Diabetic peripheral neuropathy -Chronic lower extremity wound for which [facility] -Obstructive sleep apnea uses CPAP -Chronic umbilical hernia -Mild cognitive impairment -Chronic gait dysfunction sometimes uses a walker otherwise mainly a chair -Significant nausea vomiting could be an element of gastroparesis.-improved Plan: -patient in the midline. Discussed with Dr. Watson from [facility]. Continue with IV ertapenem. patient we will begoing to the [facility].
--- NOTE | 2019-12-03 00:43 | PN ---
PROGRESS NOTE DATE OF SERVICE: 12/02/2019 REASON FOR FOLLOWUP: ESBL E coli urinary tract infection with sepsis. INTERVAL HISTORY: The patient is currently afebrile. Patient has been breathing comfortably. The patient denies having any chest pain. No shortness of breath or cough. No abdominal pain or diarrhea. PHYSICAL EXAMINATION: Blood pressure is 173/64 with a pulse of 74, temperature 98.5. He is 97% on room air. General description is an elderly male lying in bed in no distress. Respiratory system: Unlabored breathing, clear to auscultation anteriorly. Heart S1, S2. Regular rate and rhythm. Abdomen soft, no tenderness. LABS: Hemoglobin 8.8, white count 28248, BUN of 59, creatinine is 2.36. DIAGNOSTIC IMPRESSION AND PLAN: Patient admitted to the hospital with sepsis, source is ESBL E coli urinary tract infection. CT was negative for any kidney hydronephrosis or structure abnormality. The patient is currently on Invanz. He will get a med line on Wednesday to continue with IV antibiotics for a total of 2 weeks. Continue supportive care. MMODL / IJN: [id number] /
[2019-12-03] MEDS: HEPARIN SODIUM,PORCINE 5,000 UNIT/ML 1 ML VIAL SQ SCH ×4 (01:02→22:49)
[2019-12-03 07:03] LABS: Glucose,Whole Blood 181 mg/dL (75-99)
[2019-12-03] MEDS: INSULIN ASPART (NovoLOG) 100 UNIT/ML VIAL SQ SCH ×4 (07:39→22:45)
[2019-12-03] MEDS: INSULIN DETEMIR (LEVEMIR) 100 UNIT/ML SYR SQ SCH (07:39)
[2019-12-03] MEDS: ALLOPURINOL 100 MG TAB PO SCH (07:42)
[2019-12-03] MEDS: ERTAPENEM 0.5 GM in SODIUM CHLORIDE 0.9% 50 ML IVPB SCH (07:42)
[2019-12-03] MEDS: hydrALAZINE HCL 25 MG TAB PO SCH (07:42)
[2019-12-03] MEDS: GABAPENTIN 100 MG CAP PO SCH ×3 (07:42→22:44)
[2019-12-03] MEDS: ASPIRIN 81 MG PO SCH (07:42)
[2019-12-03] MEDS: DOCUSATE 100 MG CAP PO SCH (07:42)
[2019-12-03] MEDS: amLODIPine 5 MG TAB PO SCH ×2 (07:42→20:11)
[2019-12-03] MEDS: CALCITRIOL 0.25 MCG CAP PO SCH (07:43)
[2019-12-03] MEDS: SODIUM FERRIC GLUCONAT-SUCROSE 125 MG in SODIUM CHLORIDE 0.9% 100 ML IVPB SCH (08:37)
[2019-12-03 10:29] LABS: Calcium 8.7 mg/dL (8.4-10.2); Potassium 3.6 mmol/L (3.5-5.1)
[2019-12-03 11:34] LABS: Glucose,Whole Blood 167 mg/dL (75-99)
[2019-12-03] MEDS: PSYLLIUM HUSK 100% 6 GM PACKET PO SCH ×2 (14:51→20:11)
[2019-12-03] MEDS: hydrALAZINE HCL 50 MG TAB PO SCH ×2 (15:42→22:44)
--- NOTE | 2019-12-03 15:56 | PN ---
PROGRESS NOTE Patient is seen for follow up for acute kidney injury on top of chronic kidney disease. Renal function has improved, currently back to baseline. The patient is comfortable. He was on IV fluids at 50 mL an hour. Currently not on IV fluids. Patient is tolerating oral intake very well. PHYSICAL EXAMINATION: On examination today, blood pressure was elevated 180/69, heart rate 75 per minute, he is afebrile. Examination of the heart S1, S2. Examination of the lungs, decreased breath sounds at bases. Abdomen is soft, nontender. Examination of lower extremities shows trace edema bilaterally. [employer] exam grossly intact. LABS: Show sodium 135, potassium 3.6, BUN 62, creatinine 2.01, calcium 8.7. ASSESSMENT: 1. Acute kidney injury, prerenal, currently improved. We can discontinue the IV fluids as patient is eating fairly well. 2. Chronic kidney disease stage 4, baseline creatinine close to 2.5. 3. Sepsis with lower extremity cellulitis and urinary tract infection. 4. Escherichia coli urinary tract infection. 5. Hypertension, currently uncontrolled. Hypertension with chronic kidney disease. 6. Anemia of chronic disease with severe iron deficiency. 7. Hypokalemia, status post replacement. PLAN: Discontinue IV fluids. Continue to encourage increased oral intake. Repeat labs in a.m. Avoid nephrotoxic medications. MMODL / IJN: [id number] /
[2019-12-03 16:54] LABS: Glucose,Whole Blood 176 mg/dL (75-99)
[2019-12-03] MEDS: ATORVASTATIN 20 MG TAB PO SCH (20:11)
[2019-12-03 20:50] LABS: Glucose,Whole Blood 143 mg/dL (75-99)
--- NOTE | 2019-12-03 21:06 | P.PN ---
Progress Note - Text Progress Note Date: 12/03/19 Presenting complaint: Fever Interim history: Patient is a 69-year-old male with a past medical history of chronic venous stasis ulcers with recurrent cellulitis of the lower extremities, sleep apnea, hypertension, diabetes mellitus type 2 and chronic kidney disease stage IV who presented to the emergency department with complaints of worsening redness in his left leg. In the ER he underwent extensive evaluation. On arrival he had a temperature of 102.2 and was tachycardic at 115. He was found to have white blood cell count of 18.8, hemoglobin 10.7, hematocrit 31.9, platelets of 270. BUN 79, creatinine 3.21 up from his baseline of 20, CRP 58.3, and pro-calcitonin 0.47. Initial chest x-ray showed no active cardiopulmonary disease. Tib-fib x-ray showed no evidence of osteomyelitis. He was started on vancomycin secondary concern for left leg cellulitis. He received IV fluids and vancomycin. Blood cultures were drawn. Admitted with a diagnosis of sepsis. [place] to predominantly UTI and cystitis. On IV daptomycin and IV cefepime.IV daptomycin was then discontinued.urine culture positive for E. coli ESBL. Patient responded well to IV ertapenem. Had antibiotic associated diarrhea. Negative for C. diff. Today-tolerating diet. Still having some diarrhea. Otherwise feeling well. Tired. Review of systems: Was done for constitutional, cardiovascular, GI, pulmonary. relevant finding as above Active Medications Acetaminophen (Tylenol Tab) 1,000 mg PO Q6HR PRN PRN Reason: Fever>101 Last Admin: 11/29/19 16:22 Dose: 1,000 mg Documented by: Hydrocodone Bitart/Acetaminophen ([place] 10) 1 each PO TID PRN PRN Reason: Pain Allopurinol (Zyloprim) 100 mg PO DAILY [facility] Last Admin: 12/03/19 07:42 Dose: 100 mg Documented by: Amlodipine Besylate (Norvasc) 5 mg PO BID [facility] Last Admin: 12/03/19 20:11 Dose: 5 mg Documented by: Aspirin (Aspirin) 81 mg PO DAILY [facility] Last Admin: 12/03/19 07:42 Dose: 81 mg Documented by: Atorvastatin Calcium (Lipitor) 20 mg PO HS [facility] Last Admin: 12/03/19 20:11 Dose: 20 mg Documented by: Calcitriol (Rocaltrol) 0.25 mcg PO DAILY [facility] Last Admin: 12/03/19 07:43 Dose: 0.25 mcg Documented by: Gabapentin (Neurontin) 100 mg PO TID [facility] Last Admin: 12/03/19 15:42 Dose: 100 mg Documented by: Heparin Sodium (Porcine) (Heparin) 5,000 unit SQ Q8HR [facility] Last Admin: 12/03/19 15:42 Dose: 5,000 unit Documented by: Hydralazine HCl (Apresoline) 50 mg PO TID [facility] Last Admin: 12/03/19 15:42 Dose: 50 mg Documented by: Ertapenem 0.5 gm/ Sodium (Chloride) 50 mls @ 100 mls/hr IVPB DAILY [facility]; Protocol Last Admin: 12/03/19 07:42 Dose: 100 mls/hr Documented by: Insulin Aspart (Novolog) 0 unit SQ ACHS [facility]; Protocol Last Admin: 12/03/19 17:20 Dose: 3 unit Documented by: Insulin Detemir (Levemir) 30 unit SQ DAILY@0700 [facility] Last Admin: 12/03/19 07:39 Dose: 30 unit Documented by: Metoclopramide HCl (Reglan) 5 mg PO AC-TID PRN PRN Reason: Nausea Naloxone HCl (Narcan) 0.2 mg IV Q2M PRN PRN Reason: Opioid Reversal Ondansetron HCl (Zofran) 4 mg IVP Q6HR PRN PRN Reason: Nausea And Vomiting Last Admin: 12/02/19 20:44 Dose: 4 mg Documented by: Psyllium Hydrophilic Mucilloid (Metamucil) 6 gm PO BID [facility] Last Admin: 12/03/19 20:11 Dose: 6 gm Documented by: On examination: VITAL SIGNS: 97.9, 65, 16, 188/69, 95% room air GENERAL APPEARANCE: Laying in bed, comfortable HEENT: Normal external appearance of nose and ear. Oral cavity normal EYES: Pupils equal. Conjunctiva normal. NECK: JVD not raised. Mass not palpable. RESPIRATORY: Respiratory effort normal. Lungs clear to auscultation. CARDIOVASCULAR: First and second sounds normal. No edema. ABDOMEN: Soft. Liver and spleen not palpable. No tenderness. No mass palpable. PSYCHIATRY: Alert and oriented x3. Mood and affect normal. DERMATOLOGICAL: Left lower extremity redness/wound-improved INVESTIGATIONS, reviewed in the clinical context: Potassium 3.6 bun 62 creatinine 2.01 Previous testing White count 26.1, hemoglobin 9.2, platelets 199 BUNs 66, creatinine 2.99 UA positive for leukoesterase, WBC Urine culture-E. coli/ESBL Assessment: -Acute UTI with cystitis, from E. coli/ESBL causing's sepsis, POA-responding -Acute on chronicleft lower extremity cellulitis-improved -Acute antibiotic associated diarrhea -Morbid obesity BMI 43.0 -COPD -Diabetes mellitus type 2 -Essential hypertension -Primary osteoarthritis -Chronic kidney disease -Diabetic peripheral neuropathy -Chronic lower extremity wound for which [facility] -Obstructive sleep apnea uses CPAP -Chronic umbilical hernia -Mild cognitive impairment -Chronic gait dysfunction sometimes uses a walker otherwise mainly a chair -Significant nausea vomiting could be an element of gastroparesis.-improved Plan: Patient admitted a midline placed. Hopefully be discharged to [facility] tomorrow. Metamucil added for the diarrhea. Discussed with the patient. Check labs tomorrow.
--- NOTE | 2019-12-04 01:57 | PN ---
PROGRESS NOTE DATE OF SERVICE: 12/03/2019 REASON FOR FOLLOWUP: ESBL E coli urinary tract infection. INTERVAL HISTORY: The patient is currently afebrile. The patient has been breathing comfortably. The patient denies having any chest pain, no shortness of breath or cough. No abdominal pain or diarrhea. PHYSICAL EXAMINATION: His blood pressure 156/66, pulse of 71, temperature 98.6. He is 97% on room air. General description is an elderly male lying in bed in no distress. RESPIRATORY SYSTEM: Unlabored breathing and is clear to auscultation anteriorly. HEART: S1, S2. Regular rate and rhythm. ABDOMEN: Soft, no tenderness. LABS: Creatinine has improved to 2.01. DIAGNOSTIC IMPRESSION AND PLAN: Patient with ESBL Escherichia coli urinary tract infection in this patient who has shown overall improvement in his kidney function and Invanz will be adjusted up to 1 gram daily. The patient needs another 10 days of IV antibiotic on discharge for which Midline will be placed. Continue with supportive care. MMODL / IJN: [id number] /
[2019-12-04 06:55] LABS: Glucose,Whole Blood 194 mg/dL (75-99)
[2019-12-04] MEDS: GABAPENTIN 100 MG CAP PO SCH ×2 (07:24→16:24)
[2019-12-04] MEDS: ASPIRIN 81 MG PO SCH (07:24)
[2019-12-04] MEDS: hydrALAZINE HCL 50 MG TAB PO SCH ×2 (07:25→16:24)
[2019-12-04] MEDS: CALCITRIOL 0.25 MCG CAP PO SCH (07:25)
[2019-12-04] MEDS: amLODIPine 5 MG TAB PO SCH (07:25)
[2019-12-04] MEDS: ALLOPURINOL 100 MG TAB PO SCH (07:25)
[2019-12-04] MEDS: INSULIN ASPART (NovoLOG) 100 UNIT/ML VIAL SQ SCH ×2 (07:26→12:54)
[2019-12-04] MEDS: INSULIN DETEMIR (LEVEMIR) 100 UNIT/ML SYR SQ SCH (07:26)
[2019-12-04] MEDS: PSYLLIUM HUSK 100% 6 GM PACKET PO SCH (07:27)
[2019-12-04 07:47] LABS: Basophils # (A) 0.1 k/uL (0-0.2); Basophils % (A) 1 %; Eosinophils # (A) 0.2 k/uL (0-0.7); Eosinophils % (A) 1 %; HCT 21.8 % (39.0-53.0); HGB 7.4 gm/dL (13.0-17.5); Lymphocytes # (A) 1.6 k/uL (1.0-4.8); Lymphocytes % (A) 12 %; MCH 31.8 pg (25.0-35.0); MCHC 33.7 g/dL (31.0-37.0); MCV 94.2 fL (80.0-100.0); Mean Platelet Volume 7.5; Monocytes # (A) 1.2 k/uL (0-1.0); Monocytes % (A) 8 %; Neutrophils # (A) 10.2 k/uL (1.3-7.7); Neutrophils % (A) 74 %; Platelet Count 250 k/uL (150-450); RBC 2.32 m/uL (4.30-5.90); RDW 14.5 % (11.5-15.5); WBC 13.7 k/uL (3.8-10.6)
[2019-12-04 08:43] LABS: Potassium 3.7 mmol/L (3.5-5.1)
[2019-12-04] MEDS ORDERED: ERTAPENEM 1 GM in SODIUM CHLORIDE 0.9% 50 ML IVPB SCH (09:00)
[2019-12-04] MEDS: HEPARIN SODIUM,PORCINE 5,000 UNIT/ML 1 ML VIAL SQ SCH ×2 (10:37→16:22)
[2019-12-04 12:37] LABS: Glucose,Whole Blood 285 mg/dL (75-99)
--- NOTE | 2019-12-04 13:58 | PN ---
PROGRESS NOTE DATE OF SERVICE: 12/04/2019 REASON FOR FOLLOWUP: ESBL E coli urinary tract infection with sepsis. INTERVAL HISTORY: The patient is currently afebrile. The patient overall feeling better. Denies having any chest pain. No shortness of breath or cough. No nausea. No vomiting. No abdominal pain, no diarrhea. PHYSICAL EXAMINATION: Blood pressure 161/67 with a pulse of 78, temperature 98.2, he is 96% on room air. General descritpion is an elderly male, up in the chair in no distress. RESPIRATORY SYSTEM: Unlabored breathing, clear to auscultation anteriorly. HEART: S1, S2. Regular rate and rhythm. LABS: Hemoglobin 6.4, white count 13.7, creatinine 1.27. DIAGNOSTIC IMPRESSION AND PLAN: Patient ESBL E coli urinary tract infection, next morning to the IV Invanz to continue for another 10 days to finish his 2 week course of therapy. Will monitor his clinical course closely. TREASURE / CHACORTA: [id number] /
[2019-12-04 14:51] VITALS: BP 133/63; PULSE 76; RESP 18; TEMP 98.4
--- NOTE | 2019-12-04 15:37 | P.DS ---
Providers Date of admission: 11/28/19 21:47 Expected date of discharge: 12/04/19 Attending physician: Jonh Butcher Consults: 11/28/19 21:46 Consult Physician Urgent Consulting Provider: Cristian Watson Consult Reason/Comments: Cellulitis, sepsis Do you want consulting provider notified?: Yes 11/29/19 07:30 Consult Physician Routine Consulting Provider: Afshin Mcintyre Consult Reason/Comments: TIERNEY on CKD IV Do you want consulting provider notified?: Yes Primary care physician: [facility] Course: Presenting complaint: Fever Interim history: Patient is a 69-year-old male with a past medical history of chronic venous stasis ulcers with recurrent cellulitis of the lower extremities, sleep apnea, hypertension, diabetes mellitus type 2 and chronic kidney disease stage IV who presented to the emergency department with complaints of worsening redness in his left leg. In the ER he underwent extensive evaluation. On arrival he had a temperature of 102.2 and was tachycardic at 115. He was found to have white blood cell count of 18.8, hemoglobin 10.7, hematocrit 31.9, platelets of 270. BUN 79, creatinine 3.21 up from his baseline of 20, CRP 58.3, and pro-calcitonin 0.47. Initial chest x-ray showed no active cardiopulmonary disease. Tib-fib x-ray showed no evidence of osteomyelitis. He was started on vancomycin secondary concern for left leg cellulitis. He received IV fluids and vancomycin. Blood cultures were drawn. Admitted with a diagnosis of sepsis. [place] to predominantly UTI and cystitis. On IV daptomycin and IV cefepime.IV daptomycin was then discontinued.urine culture positive for E. coli ESBL. Patient responded well to IV ertapenem. Had antibiotic associated diarrhea. Negative for C. diff. diarrhea responded well to Metamucil. Today-doing well. Tolerating a diet. Diarrhea better. By Dr. Watson from ID 10 more days of IV antibiotics. Will be going to the ECF. Seen by PTOT. Discussed with the patient. Discussion and discharge planning more than 35 minutes Consults: Dr. Watson from ID Dr. Cruz from nephrology On examination: VITAL SIGNS: 98.4, 76, 18, 133/63, 98% on room air GENERAL APPEARANCE: Laying in bed, comfortable HEENT: Normal external appearance of nose and ear. Oral cavity normal EYES: Pupils equal. Conjunctiva normal. NECK: JVD not raised. Mass not palpable. RESPIRATORY: Respiratory effort normal. Lungs clear to auscultation. CARDIOVASCULAR: First and second sounds normal. No edema. ABDOMEN: Soft. Liver and spleen not palpable. No tenderness. No mass palpable. PSYCHIATRY: Alert and oriented x3. Mood and affect normal. DERMATOLOGICAL: Left lower extremity redness/wound-improved INVESTIGATIONS, reviewed in the clinical context: White count 13.7 hemoglobin 7.4 potassium 3.7 bun 63 creatinine 1.87 Previous testing White count 26.1, hemoglobin 9.2, platelets 199 BUNs 66, creatinine 2.99 UA positive for leukoesterase, WBC Urine culture-E. coli/ESBL Assessment: -Acute UTI with cystitis, from E. coli/ESBL causing's sepsis, POA-responding -Acute on chronicleft lower extremity cellulitis-improved -Acute antibiotic associated diarrhea, C. diff negative, improved -Acute kidney injury likely ATN from sepsis, POA -Hypertension with chronic kidney disease -Morbid obesity BMI 43.0 -COPD -Diabetes mellitus type 2 -Essential hypertension -Primary osteoarthritis -Chronic kidney disease stage 3 -Diabetic peripheral neuropathy -Chronic lower extremity wound for which [facility] -Obstructive sleep apnea uses CPAP -Chronic umbilical hernia -Mild cognitive impairment -Chronic gait dysfunction sometimes uses a walker otherwise mainly a chair -Significant nausea vomiting could be an element of gastroparesis.-improved [facility]position: [facility] Patient Condition at Discharge: Stable Plan - Discharge Summary Discharge Rx Participant: No New Discharge Prescriptions: New hydrALAZINE HCL [Apresoline] 50 mg PO TID tab Aspirin 81 mg PO DAILY chew Ertapenem [INVanz] 1 gm IVPB DAILY #10 vial Atorvastatin [Lipitor] 20 mg PO HS tab Psyllium Husk 100% [Metamucil Packet] 6 gm PO BID packet Gabapentin [Neurontin] 100 mg PO TID #9 cap INSULIN ASPART (NovoLOG) [NovoLOG (formulary)] 0 unit SQ ACHS vial Continue Cholecalciferol [Vitamin D3 (25 Mcg = 1000 Iu)] 5,000 unit PO DAILY Magnesium Oxide [Mag-Ox] 250 mg PO DAILY Allopurinol [Zyloprim] 100 mg PO DAILY Fish Oil/Dha/Epa [Fish Oil 1,200 mg Fish Oil] 1 cap PO DAILY Ferrous Sulfate [Iron (65 MG Elemental)] 325 mg PO DAILY amLODIPine [Norvasc] 5 mg PO BID Insulin Glargine [Lantus] 30 unit SQ DAILY Calcitriol 0.25 mcg PO DAILY HYDROcodone/APAP 10-325MG [[place] 10-325] 1 tab PO TID PRN #9 tab PRN Reason: Pain Changed hydrALAZINE HCL [Apresoline] 50 mg PO TID #0 Discontinued Simvastatin [Zocor] 40 mg PO HS Aspirin 81 mg PO DAILY Furosemide [Lasix] 40 mg PO DIRECTED Sodium Polystyrene Sulfon/Sorb [Kionex 15 gm/60 ml Suspension] 2.5 gm PO DA CAPO Gabapentin [Neurontin] 300 mg PO TID #30 cap Insulin Glargine [Lantus] 20 units SQ HS Docusate [Colace] 100 mg PO DAILY Discharge Medication List Allopurinol [Zyloprim] 100 mg PO DAILY 04/22/15 [History] Cholecalciferol [Vitamin D3 (25 Mcg = 1000 Iu)] 5,000 unit PO DAILY 04/22/15 [History] Magnesium Oxide [Mag-Ox] 250 mg PO DAILY 04/22/15 [History] Fish Oil/Dha/Epa [Fish Oil 1,200 mg Fish Oil] 1 cap PO DAILY 09/06/15 [History] Ferrous Sulfate [Iron (65 MG Elemental)] 325 mg PO DAILY 10/23/15 [History] amLODIPine [Norvasc] 5 mg PO BID 08/27/17 [History] Insulin Glargine [Lantus] 30 unit SQ DAILY 09/14/18 [History] Calcitriol 0.25 mcg PO DAILY 12/16/18 [History] Aspirin 81 mg PO DAILY chew 12/04/19 [Rx] Atorvastatin [Lipitor] 20 mg PO HS tab 12/04/19 [Rx] Ertapenem [INVanz] 1 gm IVPB DAILY #10 vial 12/04/19 [Rx] Gabapentin [Neurontin] 100 mg PO TID #9 cap 12/04/19 [Rx] HYDROcodone/APAP 10-325MG [[place] 10-325] 1 tab PO TID PRN #9 tab 12/04/19 [Rx] INSULIN ASPART (NovoLOG) [NovoLOG (formulary)] 0 unit SQ ACHS vial 12/04/19 [Rx] Psyllium Husk 100% [Metamucil Packet] 6 gm PO BID packet 12/04/19 [Rx] hydrALAZINE HCL [Apresoline] 50 mg PO TID tab 12/04/19 [Rx] hydrALAZINE HCL [Apresoline] 50 mg PO TID #0 12/04/19 [Rx] Follow up Appointment(s)/Referral(s): [facility], [NON-STAFF] - Papo Ford MD [Primary Care Provider] - 1-2 Days
--- NOTE | 2019-12-04 16:10 | PN ---
PROGRESS NOTE Patient is seen for followup for acute kidney injury on top of chronic kidney disease. He is currently stable. Renal function has improved quite a bit. Creatinine is down to 1.87 from 3.2 on initial admission. His baseline is about 2.2-2.1 mg/dL. On examination today, blood pressure is 161/67, heart rate 78 per minute, patient is afebrile. Examination of the heart S1, S2. Examination of the lungs, decreased breath sounds at bases. No crackles or wheezing is heard. Abdomen is soft, nontender. LABS: Show sodium of 138, potassium 3.7, chloride 108, BUN 63, serum creatinine 1.87, hemoglobin 7.4 g/dL. ASSESSMENT: 1. Acute kidney injury, prerenal currently improved. Patient is off IV fluids. He has been tolerating oral intake. 2. Chronic kidney disease stage IV. Baseline creatinine about 2.5 secondary to nephrosclerosis. 3. Sepsis with left lower extremity cellulitis and urinary tract infection. 4. Escherichia coli UTI. 5. Anemia with severe iron deficiency with a progressive drop in hemoglobin. 6. Chronic obstructive pulmonary disease. 7. Type 2 diabetes. PLAN: Continue to encourage increased oral intake. Consider GI workup as hemoglobin has dropped to 7.4. MMODL / IJN: [id number] /
[2019-12-04 16:20] LABS: Glucose,Whole Blood 246 mg/dL (75-99)
== END 2019-12-04 16:59 | DRG 871 ==
LOC: EC 20:22 → 4SSUR 21:47
PROVIDERS: ADMIT Hospitalist; ATTEND Hospitalist
PROC: 05HF33Z Insertion of Infusion Device into Left Cephalic Vein, Percutaneous Approach (ICD-10-PCS; principal; 2019-12-04 08:30)
DX: A41.51 Sepsis due to Escherichia coli [E. coli] (principal); N17.0 Acute kidney failure with tubular necrosis; Z68.41 Body mass index [BMI] 40.0-44.9, adult; L03.116 Cellulitis of left lower limb; N18.4 Chronic kidney disease, stage 4 (severe); K52.1 Toxic gastroenteritis and colitis; I13.0 Hypertensive heart and chronic kidney disease with heart failure and stage 1 through stage 4 chronic kidney disease, or unspecified chronic kidney disease; D63.1 Anemia in chronic kidney disease; E11.22 Type 2 diabetes mellitus with diabetic chronic kidney disease; N30.90 Cystitis, unspecified without hematuria; G47.33 Obstructive sleep apnea (adult) (pediatric); E78.5 Hyperlipidemia, unspecified; J44.9 Chronic obstructive pulmonary disease, unspecified; K43.9 Ventral hernia without obstruction or gangrene; K42.9 Umbilical hernia without obstruction or gangrene; I44.0 Atrioventricular block, first degree; M19.91 Primary osteoarthritis, unspecified site; M32.9 Systemic lupus erythematosus, unspecified; G31.84 Mild cognitive impairment of uncertain or unknown etiology; E87.6 Hypokalemia; T36.95XA Adverse effect of unspecified systemic antibiotic, initial encounter; D50.9 Iron deficiency anemia, unspecified; I50.9 Heart failure, unspecified; N28.1 Cyst of kidney, acquired; I87.2 Venous insufficiency (chronic) (peripheral); E66.01 Morbid (severe) obesity due to excess calories; E11.43 Type 2 diabetes mellitus with diabetic autonomic (poly)neuropathy; Z11.59 Encounter for screening for other viral diseases; K31.84 Gastroparesis; E11.42 Type 2 diabetes mellitus with diabetic polyneuropathy; Z79.82 Long term (current) use of aspirin; Z79.4 Long term (current) use of insulin; Z79.899 Other long term (current) drug therapy; Z90.49 Acquired absence of other specified parts of digestive tract; Z98.890 Other specified postprocedural states; Z95.5 Presence of coronary angioplasty implant and graft; Z98.42 Cataract extraction status, left eye; Z98.41 Cataract extraction status, right eye; Z87.440 Personal history of urinary (tract) infections; Z99.89 Dependence on other enabling machines and devices; Z87.01 Personal history of pneumonia (recurrent); Z82.49 Family history of ischemic heart disease and other diseases of the circulatory system; Z82.5 Family history of asthma and other chronic lower respiratory diseases; Z83.3 Family history of diabetes mellitus; Z83.2 Family history of diseases of the blood and blood-forming organs and certain disorders involving the immune mechanism; Z88.6 Allergy status to analgesic agent; Z88.2 Allergy status to sulfonamides
CPT/HCPCS: 36410; 36415; 71045; 71046; 74176; 76770; 76937; 80048; 80053; 80202; 81001; 82728; 83036; 83540; 83550; 83605; 83615; 83735; 84145; 85025; 85027; 85379; 85610; 85730; 86140; 87040; 87077; 87086; 87186; 87324; 87635; 93005; 94660; 96360; 96361; 96365; 96366; 96367; 96372; 96375; 99285; 99291

== ENCOUNTER 2019-12-09 17:29 | Inpatient (IN) | payer MEDICARE, BC ==
[2019-12-09] MEDS ORDERED: SODIUM CHLORIDE 0.9% 1,000 ML IV STA (17:36)
[2019-12-09] MEDS ORDERED: PANTOPRAZOLE 40 MG/10 ML VIAL IVP STA (17:36)
[2019-12-09 18:09] LABS: Basophils # (A) 0.1 k/uL (0-0.2); Basophils % (A) 1 %; Eosinophils # (A) 0.2 k/uL (0-0.7); Eosinophils % (A) 2 %; Lymphocytes # (A) 1.9 k/uL (1.0-4.8); Lymphocytes % (A) 12 %; MCH 30.8 pg (25.0-35.0); MCHC 32.5 g/dL (31.0-37.0); MCV 94.7 fL (80.0-100.0); Mean Platelet Volume 7.6; Monocytes # (A) 0.6 k/uL (0-1.0); Monocytes % (A) 4 %; Neutrophils # (A) 12.1 k/uL (1.3-7.7); Neutrophils % (A) 80 %; Platelet Count 481 k/uL (150-450); RBC 1.98 m/uL (4.30-5.90); RDW 15.9 % (11.5-15.5); WBC 15.2 k/uL (3.8-10.6)
[2019-12-09 18:17] LABS: HCT 18.8 % (39.0-53.0); HGB 6.1 gm/dL (13.0-17.5)
--- NOTE | 2019-12-09 18:18 | ED ---
Recheck HPI - General Chief Complaint: Recheck/Abnormal Lab/Rx Stated Complaint: Low Hemaglobin Time Seen by Provider: 12/09/19 17:36 Source: patient, RN notes reviewed, old records reviewed Mode of arrival: ambulatory Limitations: no limitations - History of Present Illness Initial Comments: This is a 69-year-old male presented to ER for evaluation of recheck of low abnormal lab value. Patient feels weak dizzy lightheaded history of low hemoglobin outpatient he will around 6 no active bleeding no nausea vomiting no blood in the stool. Patient denies any complaints other than feeling weak and shortness of breath MD Complaint: abnormal lab (Low hemoglobin) -: unknown Returns Today for: Called Because of Abnormal Lab/Test (Low hemoglobin) Symptoms Since Prior Visit: no new symptoms (Increasing weakness) Context: called for abnormal lab result Associated Symptoms: shortness of breath, malaise - Related Data Home Medications Medication Instructions Recorded Confirmed Allopurinol [Zyloprim] 100 mg PO DAILY 04/22/15 11/29/19 Cholecalciferol [Vitamin D3 (25 5,000 unit PO DAILY 04/22/15 11/29/19 Mcg = 1000 Iu)] Magnesium Oxide [Mag-Ox] 250 mg PO DAILY 04/22/15 11/29/19 Fish Oil/Dha/Epa [Fish Oil 1,200 1 cap PO DAILY 09/06/15 11/29/19 mg Fish Oil] Ferrous Sulfate [Iron (65 MG 325 mg PO DAILY 10/23/15 11/29/19 Elemental)] amLODIPine [Norvasc] 5 mg PO BID 08/27/17 11/29/19 Insulin Glargine [Lantus] 30 unit SQ DAILY 09/14/18 11/29/19 Calcitriol 0.25 mcg PO DAILY 12/16/18 11/29/19 Previous Rx's Medication Instructions Recorded Aspirin 81 mg PO DAILY chew 12/04/19 Atorvastatin [Lipitor] 20 mg PO HS tab 12/04/19 Ertapenem [INVanz] 1 gm IVPB DAILY #10 vial 12/04/19 Gabapentin [Neurontin] 100 mg PO TID #9 cap 12/04/19 HYDROcodone/APAP 10-325MG [[place] 1 tab PO TID PRN #9 tab 12/04/19 10-325] INSULIN ASPART (NovoLOG) [NovoLOG 0 unit SQ ACHS vial 12/04/19 (formulary)] Psyllium Husk 100% [Metamucil 6 gm PO BID packet 12/04/19 Packet] hydrALAZINE HCL [Apresoline] 50 mg PO TID tab 12/04/19 hydrALAZINE HCL [Apresoline] 50 mg PO TID #0 12/04/19 Allergies Allergy/AdvReac Type Severity Reaction Status Date / Time aspirin [From Anacin] Allergy Rash/Hives Verified 11/29/19 12:35 sulfamethoxazole AdvReac affects Verified 11/29/19 12:35 [From Bactrim] kidneys trimethoprim [From Bactrim] AdvReac Unknown Verified 11/29/19 12:35 Review of Systems ROS Statement: Those systems with pertinent positive or pertinent negative responses have been documented in the HPI. ROS Other: All systems not noted in ROS Statement are negative. 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, chronic venous ulcer left anterior lower leg-treated in [facility], sepsis from L leg wound, chronic anemia, hyperkalemia, CKD-spouse states his kidneys function at 28%, DELVIN with Cpap, possible starting of dementia, confusion at times at night, bilateral lower leg varicosities, umbilical hernia, Hpylori, ambulates very little with walker and mostly wheelchair bound, recent UTI History of Any Multi-Drug Resistant Organisms: ESBL, VRE Date of last positivie culture/infection: 11/28/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 Past Anesthesia/Blood Transfusion Reactions: No Reported Reaction Date of Last Stent Placement:: 10/2015 Past Psychological History: No Psychological Hx Reported Smoking Status: Never smoker Past Alcohol Use History: None Reported Past Drug Use History: None Reported - Past Family History Father Family Medical History: COPD Additional Family Medical History / Comment(s): AT AGE 64- EMPHYSEMA(SMOKE R) Mother Family Medical History: Diabetes Mellitus, Hypertension Additional Family Medical History / Comment(s): LUPUS, LEG AMPUTATED. MOM IN HER 60'S General Exam Limitations: no limitations General appearance: alert, in no apparent distress Head exam: Present: atraumatic, normocephalic, normal inspection Eye exam: Present: normal appearance, PERRL, EOMI. Absent: scleral icterus, conjunctival injection, periorbital swelling ENT exam: Present: normal exam, mucous membranes moist Neck exam: Present: normal inspection. Absent: tenderness, meningismus, lymphadenopathy Respiratory exam: Present: normal lung sounds bilaterally. Absent: respiratory distress, wheezes, rales, rhonchi, stridor Cardiovascular Exam: Present: regular rate, normal rhythm, normal heart sounds. Absent: systolic murmur, diastolic murmur, rubs, gallop, clicks GI/Abdominal exam: Present: soft, normal bowel sounds. Absent: distended, tenderness, guarding, rebound, rigid Extremities exam: Present: normal inspection, full ROM, normal capillary refill. Absent: tenderness, pedal edema, joint swelling, calf tenderness Back exam: Present: normal inspection Neurological exam: Present: alert, oriented X3, CN II-XII intact Psychiatric exam: Present: normal affect, normal mood Skin exam: Present: warm, dry, intact, normal color. Absent: rash Course Vital Signs 12/09/19 17:49 Temperature 98.1 F Pulse Rate 66 Respiratory 16 Rate Blood Pressure 122/46 O2 Sat by Pulse 99 Oximetry - Reevaluation(s) Reevaluation #1: 12/09/19 18:21 Medical records reviewed - Consultations Consultation #1: Spoke with Dr. Butcher regarding admission he is agreeable to admit Medical Decision Making - Medical Decision Making 69 male DF with history of anemia coming in for anemia will admit for transfusion and further evaluation of underlying chronic disease - Lab Data Result diagrams: 12/09/19 17:51 Lab Results 12/09/19 Range/Units 17:51 WBC 15.2 H (3.8-10.6) k/uL RBC 1.98 L (4.30-5.90) m/uL Hgb 6.1 L* (13.0-17.5) gm/dL Hct 18.8 L* (39.0-53.0) % MCV 94.7 (80.0-100.0) fL MCH 30.8 (25.0-35.0) pg MCHC 32.5 (31.0-37.0) g/dL RDW 15.9 H (11.5-15.5) % Plt Count 481 H (150-450) k/uL Neutrophils % 80 % Lymphocytes % 12 % Monocytes % 4 % Eosinophils % 2 % Basophils % 1 % Neutrophils # 12.1 H (1.3-7.7) k/uL Lymphocytes # 1.9 (1.0-4.8) k/uL Monocytes # 0.6 (0-1.0) k/uL Eosinophils # 0.2 (0-0.7) k/uL Basophils # 0.1 (0-0.2) k/uL Disposition Clinical Impression: Anemia, Weakness Disposition: ADMITTED IP TO THIS HOSP Condition: Fair Is patient prescribed a controlled substance at d/c from ED?: No Referrals: Chance Flowers MD [Primary Care Provider] - 1-2 days
[2019-12-09 18:25] LABS: ALT 18 U/L (4-49); AST 22 U/L (17-59); African American GFR (CKD) 34 (>60 ml/min/1.73 sqM); Albumin 3.2 g/dL (3.5-5.0); Alkaline Phosphatase 73 U/L (38-126); Anion Gap 6 mmol/L; Blood Urea Nitrogen 61 mg/dL (9-20); Calcium 9.1 mg/dL (8.4-10.2); Carbon Dioxide 21 mmol/L (22-30); Chloride 109 mmol/L (98-107); Glucose 138 mg/dL (74-99); Magnesium 2.5 mg/dL (1.6-2.3); Non-African American GFR(CKD) 30 (>60 ml/min/1.73 sqM); Potassium 4.9 mmol/L (3.5-5.1); Sodium 136 mmol/L (137-145); Total Bilirubin <0.1 mg/dL (0.2-1.3); Total Protein 5.9 g/dL (6.3-8.2)
[2019-12-09 18:29] LABS: INR 0.9 (<1.2); Prothrombin Time 9.5 sec (9.0-12.0)
[2019-12-09 18:46] LABS: Partial Thromboplastin Time 19.3 sec (22.0-30.0)
[2019-12-09] MEDS: GABAPENTIN 100 MG CAP PO SCH (23:06)
[2019-12-09] MEDS: hydrALAZINE HCL 50 MG TAB PO SCH (23:06)
[2019-12-09] MEDS: HYDROcodone/APAP 10-325MG 1 EACH TAB PO PRN (23:35)
[2019-12-10] MEDS ORDERED: ERTAPENEM 1 GM VIAL IVPB SCH (06:00)
[2019-12-10 06:27] LABS: Anisocytosis Slight; Basophils # (A) 0.1 k/uL (0-0.2); Basophils % (A) 0 %; Eosinophils # (A) 0.2 k/uL (0-0.7); Eosinophils % (A) 1 %; Hypochromasia Slight; Lymphocytes # (A) 2.4 k/uL (1.0-4.8); Lymphocytes % (A) 14 %; MCH 30.8 pg (25.0-35.0); MCHC 32.9 g/dL (31.0-37.0); MCV 93.7 fL (80.0-100.0); Mean Platelet Volume 7.3; Monocytes # (A) 0.7 k/uL (0-1.0); Monocytes % (A) 4 %; Neutrophils # (A) 13.3 k/uL (1.3-7.7); Neutrophils % (A) 79 %; Platelet Count 393 k/uL (150-450); RBC 1.72 m/uL (4.30-5.90); RDW 17.2 % (11.5-15.5); WBC 16.8 k/uL (3.8-10.6)
[2019-12-10 06:37] LABS: HCT 16.1 % (39.0-53.0); HGB 5.3 gm/dL (13.0-17.5)
[2019-12-10 06:50] LABS: Glucose,Whole Blood 190 mg/dL (75-99)
[2019-12-10] MEDS: hydrALAZINE HCL 50 MG TAB PO SCH ×3 (08:10→19:57)
[2019-12-10] MEDS: INSULIN ASPART (NovoLOG) 100 UNIT/ML VIAL SQ SCH ×6 (08:10→20:20)
[2019-12-10] MEDS: GABAPENTIN 100 MG CAP PO SCH ×3 (08:10→19:58)
[2019-12-10] MEDS: INSULIN DETEMIR (LEVEMIR) 100 UNIT/ML SYR SQ SCH (08:24)
[2019-12-10] MEDS: ERTAPENEM 1 GM in SODIUM CHLORIDE 0.9% 50 ML IVPB SCH (08:24)
[2019-12-10] MEDS ORDERED: FERROUS SULFATE 325 MG TAB PO SCH (09:00)
[2019-12-10] MEDS ORDERED: PSYLLIUM HUSK 100% 6 GM PACKET PO SCH (09:00)
[2019-12-10 09:21] LABS: Glucose,Whole Blood 169 mg/dL (75-99)
[2019-12-10] MEDS: ALLOPURINOL 100 MG TAB PO SCH (09:48)
[2019-12-10] MEDS: amLODIPine 5 MG TAB PO SCH ×2 (10:21→19:58)
[2019-12-10 10:47] LABS: Calcium 8.3 mg/dL (8.4-10.2); Potassium 5.2 mmol/L (3.5-5.1)
[2019-12-10] MEDS: CALCITRIOL 0.25 MCG CAP PO SCH (11:20)
--- NOTE | 2019-12-10 11:37 | P.CNPUL ---
History of Present Illness Consult date: 12/10/19 Requesting physician: Jonh Butcher Reason for consult: other (Critical care management) Chief complaint: Anemia History of present illness: This is a pleasant 69-year-old gentleman who follows with Dr. Flowers as his primary care provider. He has a history of diabetes mellitus, peripheral neuro vira with chronic lower extremity venous ulceration and previous sepsis and cellulitis of the left leg. He has had ESBL urinary tract infection, hyperlipidemia, hypertension, obstructive sleep apnea, chronic kidney disease, early dementia. He was discharged from here on 12/04/2019 to [facility] after being treated for an acute UTI with cystitis from ESBL E. coli and acute on chronic lower extremity cellulitis. He was being treated with IV Invanz via midline of the left upper extremity. He came in for follow-up blood work yesterday and was found to have a hemoglobin of 6.1. He received 1 unit of packed red blood cells. He was admitted to the selective care unit and earlier this morning he had developed black tarry stool with blood clots and ongoing dizziness and lightheadedness. His hemoglobin was 5.3. He was transferred to the intensive care unit where consulted for the same. He is seen resting fairly comfortably in bed. He is awake and alert. He has remained hemodynamically stable. He is receiving the first of 2 units of packed red blood cells ordered for today. No shortness of breath. He is on room air maintaining good O2 saturations in the 90s. No chest pain. No dizziness or lightheadedness currently. C. difficile screen is positive. Stool for occult blood positive. Urine culture pending. He is continued on Invanz. On IV Protonix. On clear li quid diet. He has been seen by GI services and planning for EGD in a.m. Review of Systems REVIEW OF SYSTEMS: CONSTITUTIONAL: Positive for dizziness, weakness. Denies any recent significant weight loss or weight gain. EYES: Denies change in vision. EARS, NOSE, MOUTH, THROAT: Denies headaches, denies sore throat. CARDIOVASCULAR: Denies chest pain, palpitations or syncopal episodes. RESPIRATORY: Denies shortness of breath, cough, congestion or hemoptysis. GASTROINTESTINAL: Denies change in appetite, denies abdominal pain GENITOURINARY: Denies hematuria, positive for infections. MUSKULOSKELETAL: Denies pain, denies swelling. INTEGUMENTARY: Acute on chronic cellulitis of the lower extremities left greater than right. NEUROLOGICAL: Denies recent memory loss, no recent seizure activity. PSYCHIATRIC: Denies anxiety, denies depression. HEMATOLOGIC/LYMPHATIC: Positive for anemia, denies enlarged lymph nodes. 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, chronic venous ulcer left anterior lower leg-treated in [facility], sepsis from L leg wound, chronic anemia, hyperkalemia, CKD-spouse states his kidneys function at 28%, DELVIN with Cpap, possible starting of dementia, confusion at times at night, bilateral lower leg varicosities, umbilical hernia, Hpylori, ambulates very little with walker and mostly wheelchair bound, recent UTI History of Any Multi-Drug Resistant Organisms: ESBL, VRE Date of last positivie culture/infection: 11/28/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 Past Anesthesia/Blood Transfusion Reactions: No Reported Reaction Date of Last Stent Placement:: 10/2015 Past Psychological History: No Psychological Hx Reported Additional Psychological History / Comment(s): Patient has been a lifelong nonsmoker. He denies any medical marijuana, marijuana, street drug use. He denies any alcohol abuse. Patient lives at home with his . They are in a second floor apartment. He is retired from [employer] No service no recent travel.No animal exposures Smoking Status: Never smoker Past Alcohol Use History: None Reported Additional Past Alcohol Use History / Comment(s): Patient has been a lifelong nonsmoker. He denies any medical marijuana, marijuana, street drug use. He denies any alcohol abuse. Past Drug Use History: None Reported - Past Family History Father Family Medical History: COPD Additional Family Medical History / Comment(s): AT AGE 64- EMPHYSEMA(SMOKER) Mother Family Medical History: Diabetes Mellitus, Hypertension Additional Family Medical History / Comment(s): LUPUS, LEG AMPUTATED. MOM IN HER 60'S Medications and Allergies Home Medications Medication Instructions Recorded Confirmed Type Allopurinol [Zyloprim] 100 mg PO DAILY 04/22/15 12/09/19 History Cholecalciferol [Vitamin D3 (25 5,000 unit PO HS@209904/22/15 12/09/19 History Mcg = 1000 Iu)] Fish Oil/Dha/Epa [Fish Oil 1,200 1 cap PO DAILY@0900 09/06/15 12/09/19 History mg Fish Oil] Ferrous Sulfate [Iron (65 MG 325 mg PO DAILY@0900,1700 10/23/15 12/09/19 History Elemental)] amLODIPine [Norvasc] 5 mg PO BID@0900,209908/27/17 12/09/19 History Calcitriol 0.25 mcg PO DAILY@0900 12/16/18 12/09/19 History HYDROcodone/APAP 10-325MG [[place] 1 tab PO TID PRN #9 tab 12/04/19 12/09/19 Rx 10-325] Aspirin 81 mg PO DAILY@0912/09/19 12/09/19 History Atorvastatin [Lipitor] 20 mg PO HS@209912/09/19 12/09/19 History Ertapenem [INVanz] 1 gm IVPB DAILY@59912/09/19 12/09/19 History Gabapentin [Neurontin] 100 mg PO TID@0600,1400,2200 12/09/19 12/09/19 History INSULIN ASPART (NovoLOG) [NovoLOG 7 unit SQ ACHS 12/09/19 12/09/19 History (formulary)] Insulin Glargine,Hum.rec.anlog 30 unit SQ DAILY@0912/09/19 12/09/19 History [Basaglar Kwikpen U-100] Magnesium Oxide [Mag-Ox] 400 mg PO HS@209912/09/19 12/09/19 History Psyllium Husk 100% [Metamucil 6 gm PO BID@0900,209912/09/19 12/09/19 History Packet] hydrALAZINE HCL 50 mg PO TID@0600,1400,2200 12/09/19 12/09/19 History Allergies Allergy/AdvReac Type Severity Reaction Status Date / Time aspirin [From Anacin] Allergy Rash/Hives Verified 12/09/19 20:54 sulfamethoxazole AdvReac affects Verified 12/09/19 20:54 [From Bactrim] kidneys trimethoprim [From Bactrim] AdvReac Unknown Verified 12/09/19 20:54 Physical Exam Vitals: Vital Signs Temp Pulse Pulse Resp BP BP Pulse Ox 12/10/19 11:03 98.6 F 73 16 131/48 97 12/10/19 11:00 73 17 125/49 98 12/10/19 10:53 99.0 F 72 14 125/49 98 12/10/19 10:00 98.7 F 73 13 128/51 98 12/10/19 09:19 80 14 98 12/10/19 08:00 98 F 79 18 134/56 98 12/10/19 07:57 98 F 79 18 134/56 98 12/10/19 04:00 99.3 F 87 22 99/60 99 12/10/19 02:55 99.3 F 87 22 99/60 12/10/19 00:08 99.1 F 107 H 20 115/60 12/10/19 00:00 98.6 F 98 18 136/67 98 12/09/19 23:38 98.8 F 100 18 133/71 12/09/19 23:28 99.7 F H 101 H 20 111/65 12/09/19 20:00 98.8 F 89 18 171/63 97 12/09/19 19:24 80 18 146/50 99 12/09/19 18:40 79 18 156/50 99 12/09/19 17:49 98.1 F 66 16 122/46 99 Intake and Output 12/09/19 12/10/19 12/10/19 22:59 06:59 14:59 Intake Total 640 1910 20 Output Total 0 Balance 640 1910 20 Intake: IV 20 0.9 at KVO 20 Intake, IV Titration 100 750 Amount Sodium Chloride 0.9% 1, 100 750 000 ml @ 100 mls/hr IV . Q10H STA Rx#:[id number] Oral 540 540 Blood Product 620 0 Rc As-1 Unit 0 [id number] Rc As-3 Unit 310 [id number] Output: Urine 0 Other: Voiding Method Diaper Diaper # Voids 0 # Bowel Movements 3 Weight 136.078 kg 142.5 kg GENERAL EXAM: Alert, pleasant 69-year-old gentleman, pale, on room air, comfortable in no apparent distress. HEAD: Normocephalic. EYES: Normal reaction of pupils, equal size. NOSE: Clear with pink turbinates. THROAT: No erythema or exudates. NECK: No masses, no JVD. CHEST: No chest wall deformity. LUNGS: Equal air entry with no crackles, wheeze, rhonchi or dullness. CVS: S1 and S2 normal with no audible murmur, regular rhythm. ABDOMEN: Umbilical hernia noted. No hepatosplenomegaly, hyperactive bowel sounds, no guarding or rigidity. SPINE: No scoliosis or deformity SKIN: Chronic cellulitis of lower extremities left greater than right CENTRAL NERVOUS SYSTEM: No focal deficits, tone is normal in all 4 extremities. EXTREMITIES: There is 1-2+ peripheral edema. No clubbing, no cyanosis. Peripheral pulses are intact. Pastor wrap to the left lower extremity. Results - Laboratory Findings CBC and BMP: 12/10/19 05:46 12/10/19 05:46 PT/INR, D-dimer PT 9.5 sec (9.0-12.0) 12/09/19 17:51 INR 0.9 (<1.2) 12/09/19 17:51 Abnormal lab findings: Abnormal Labs 12/09/19 12/09/19 12/09/19 17:51 17:51 17:51 WBC 15.2 H RBC 1.98 L Hgb 6.1 L* Hct 18.8 L* RDW 15.9 H Plt Count 481 H Neutrophils # 12.1 H APTT 19.3 L Sodium 136 L Potassium Chloride 109 H Carbon Dioxide 21 L BUN 61 H Creatinine 2.19 H Glucose 138 H POC Glucose (mg/dL) Calcium Magnesium 2.5 H Total Bilirubin <0.1 L Total Protein 5.9 L Albumin 3.2 L C. difficile (EIA) Intrp Crossmatch 12/09/19 12/10/19 12/10/19 17:51 05:30 05:46 WBC 16.8 H RBC 1.72 L Hgb 5.3 L* Hct 16.1 L* RDW 17.2 H Plt Count Neutrophils # 13.3 H APTT Sodium Potassium Chloride Carbon Dioxide BUN Creatinine Glucose POC Glucose (mg/dL) Calcium Magnesium Total Bilirubin Total Protein Albumin C. difficile (EIA) Intrp Positive A Crossmatch See Detail 12/10/19 12/10/19 12/10/19 05:46 06:48 09:19 WBC RBC Hgb Hct RDW Plt Count Neutrophils # APTT Sodium Potassium 5.2 H Chloride 113 H Carbon Dioxide 19 L BUN 72 H Creatinine 2.33 H Glucose 157 H POC Glucose (mg/dL) 190 H 169 H Calcium 8.3 L Magnesium Total Bilirubin Total Protein Albumin C. difficile (EIA) Intrp Crossmatch Assessment and Plan Assessment: 1 Acute anemia secondary to suspected upper gastrointestinal bleeding. Current hemoglobin 5.3. To receive his third unit of packed red blood cells and total thus far this admission 2 Recent admission for E. coli ESBL UTI and cellulitis of the lower extremities receiving IV Invanz in the outpatient setting 3 Acute on chronic renal failure 4 C. difficile colitis 5 History of hypertension 6 Hyperlipidemia 7 Diabetes mellitus, type II 8 Diabetic neuropathy 9 Chronic umbilical hernia 10 Obesity 11 Obstructive sleep apnea utilizing CPAP 12 Early dementia 13 Poor overall functional performance based on the above-mentioned multiple comorbidities Plan: The patient was seen and evaluated by Dr. Ratliff Currently hemodynamically stable Continue with blood transfusions Continue to monitor hemoglobin Continue Protonix Plan is for EGD in a.m. Continue Invanz Chest x-ray in a.m. We'll continue to follow and make further recommendations based on his clinical status I, the cosigning physician, performed a history & physical examination of the patient. Lungs sounds are clear. Maintaining good O2 saturations in the 90s on room air. I discussed the assessment and plan of care with my nurse pr actitioner, Chrissy Mera. I attest to the above consultation as dictated by her. Time with Patient: Greater than 30
[2019-12-10 12:32] LABS: Glucose,Whole Blood 151 mg/dL (75-99)
--- NOTE | 2019-12-10 16:18 | CONS ---
CONSULTATION DATE OF SERVICE: December 10, 2019. REASON FOR CONSULTATION: Acute upper gastrointestinal bleed. HISTORY OF PRESENT ILLNESS: The patient is a 69-year-old pleasant white male came to the emergency room with severe symptomatic anemia and hemoglobin of 6.1 g/dL on routine labs. The patient has history of diabetes mellitus, hypertension, peripheral neuropathy, and chronic cellulitis of the left lower extremity. He was recently admitted to [facility] for acute urinary tract infection as well as left lower extremity cellulitis, treated with antibiotics and was just sent to rehab about a week ago. After he was admitted to the hospital, he received one unit of PRBC transfusion last night and this morning his repeat hemoglobin was 5.8 g/dL. In the meantime, he started having multiple episodes of black tarry stools this morning. As per the nursing staff, he had about 3 large tarry stools. He remains hemodynamically stable. He is currently being transfused with 2 more units of PRBC transfusion, being sent to the intensive care unit. The patient in the meantime denies any abdominal pain. He reports no nausea, vomiting. He does not recall ever having peptic ulcer disease. He denies any recent NSAID use. He recalls having an EGD and colonoscopy more than 10 years ago. PAST MEDICAL HISTORY: Significant for diabetes mellitus, hypertension, chronic left lower extremity cellulitis, history of hypertension, hyperlipidemia, COPD, chronic kidney disease, sleep apnea, diabetes mellitus, and peripheral neuropathy. PAST SURGICAL HISTORY: Appendectomy, cholecystectomy, cardiac catheterization with stent placement, bilateral cataract surgery. MEDICATIONS: At home include Zyloprim, vitamin D3, fish oil, iron, Norvasc, [place], aspirin, gabapentin, Invanz, Lipitor, insulin, hydralazine, magnesium oxide, Metamucil. ALLERGIES: TO ASPIRIN AND BACTRIM. SOCIAL HISTORY: Remote history of smoking. No alcohol use. FAMILY HISTORY: Mother has diabetes mellitus and hypertension. Father of COPD. REVIEW OF SYSTEMS: Cardiopulmonary: He denies any chest pain or shortness of breath. GENITOURINARY: No dysuria or hematuria. MUSCULOSKELETAL unremarkable. SKIN unremarkable. ENDOCRINE unremarkable. PSYCHIATRIC unremarkable. NEUROLOGY unremarkable. ENT/VISION: Unremarkable. CONSTITUTIONAL: No recent weight loss. No fever, chills, night sweats. PHYSICAL EXAMINATION: He appears comfortable. No apparent distress. Vital signs stable. Blood pressure is 124/43, pulse is 70, temperature 98. HEENT examination unremarkable. Conjunctivae pink. Sclerae anicteric. Oral cavity no lesions. NECK: No JVD or lymph node enlargement. CHEST was clear to auscultation. HEART: Regular rate and rhythm. ABDOMEN was soft. Bowel sounds are positive. No organomegaly. EXTREMITIES no pedal edema. SKIN no rashes. NEUROLOGIC: Alert and oriented x3. No focal deficits. LABS: Done at the time of admission to the hospital: WBC 15.2, hemoglobin 6.1, platelets 481. Repeat labs today: Hemoglobin was 5.3. He received one unit of PRBC transfusion. BUN was 51, creatinine 2.19. Last hemoglobin 2 weeks ago was 7.4 g/dL. Stool Hemoccult was positive. IMPRESSION: 1. Acute upper gastrointestinal bleed. Patient presented to the hospital with low hemoglobin of 6.1 requiring one unit of PRBC transfusion. Repeat hemoglobin was 5.3, and this morning started having multiple episodes of black tarry stools. He is currently receiving 2 more units of PRBC transfusion and being transferred to the intensive care unit. 2. Chronic left lower extremity cellulitis, on broad-spectrum antibiotics. 3. Longstanding history of diabetes mellitus with diabetic peripheral neuropathy. 4. History of hypertension and hypercholesteremia. RECOMMENDATIONS: 1. Continue with Protonix 40 mg q.12 hours. 2. Patient being transferred to the intensive care unit where we will monitor CBC every 6 hours and transfuse if the hemoglobin is less than 7. 3. We will proceed with an upper endoscopy tomorrow. I discussed with the patient risks, benefits and complications of the procedure and he is agreeable to it. Thank you for this consultation. MMODL / IJN: [id number] /
--- NOTE | 2019-12-10 16:30 | P.HPIM ---
History of Present Illness H&P Date: 12/10/19 Chief Complaint: Anemia History of presenting complaint: Patient is a 69-year-old male with a past medical history of chronic venous stasis ulcers with recurrent cellulitis of the lower extremities, sleep apnea, hypertension, diabetes mellitus type 2 and chronic kidney disease stage IV . Recently the hospital from November 27 through December 03. Admitted with sepsis from UTI and cystitis. Treated with IV cefepime.-.urine culture positive for E. coli ESBL. Patient responded well to IV ertapenem. Patient is discharged to get 10 more days of IV antibiotics. Patient was discharged to [facility]. He was now transferred back with hemoglobin of 6. Patient not able to ambulate was only being transferred to a chair. Patient admission was noted to be having bloody stools. Did complain of some epigastric discomfort. No nausea vomiting. Patient appetite has not been good. Denies any fever and chills. Hemoglobin in the ER initially was 6.1 which intraoperative 5.3 this morning. Patient is given a unit hemoglobin last night. And 2 more units were ordered by me this morning. He also decided to move the patient to the ICU with consultation to hand trimmer and GI. Review of systems: GEN.: Tired EYES: None HEENT: None NECK: None RESPIRATORY: None CARDIOVASCULAR: None GASTROINTESTINAL: Epigastric discomfort GENITOURINARY: None MUSCULOSKELETAL: Joint pains LYMPHATICS: None HEMATOLOGICAL: None PSYCHIATRY: None NEUROLOGICAL: None DERMATOLOGICAL: Chronic left lower extremity wound being followed in the wound center Past medical history to include: Acute UTI and cystitis from E. coli ESBL recently, chronic left lower extremity wound with cellulitis, hypertension with chronic kidney disease, morbid obesity, COPD, diabetes, hypertension, osteoarthritis, CK 80 stage III, diabetic peripheral neuropathy, obstructive sleep apnea uses CPAP, chronic a recurrent hernia, mild cognitive impairment, baseline gait dysfunction On examination: VITAL SIGNS: 98, 79, 18, 134/56, 98% on room air GENERAL APPEARANCE: Laying in bed, awake HEENT: Normal external appearance of nose and ear. Oral cavity normal EYES: Pupils equal. Conjunctiva pale NECK: JVD not raised. Mass not palpable. RESPIRATORY: Respiratory effort normal. Lungs clear to auscultation. CARDIOVASCULAR: First and second sounds normal. No edema. ABDOMEN: Soft. Liver and spleen not palpable. No tenderness. No mass palpable. PSYCHIATRY: Alert and oriented x3. Mood and affect normal. DERMATOLOGICAL: Chronic Left lower extremity wound- INVESTIGATIONS, reviewed in the clinical context: White count 13.2 hemoglobin 6. 1 repeat 5.3 platelets 481 potassium 4.9 21 bun 61 creatinine 2.19 Previous testing On December 03: Hemoglobin 7.4 bun 63 creatinine 1.87 Assessment: -Acute GI bleed, POA -Acute severe blood loss anemia symptomatic requiring blood transfusion, POA -Acute UTI with cystitis, from E. coli/ESBL causing's sepsis, on recent admission patient finished IV ertapenem on December 13 -chronicleft lower extremity cellulitis-improved -Hypertension with chronic kidney disease -Morbid obesity BMI 43.0 -COPD -Diabetes mellitus type 2 -Essential hypertension -Primary osteoarthritis -Chronic kidney disease stage 3 -Diabetic peripheral neuropathy -Chronic lower extremity wound for which she [facility] -Obstructive sleep apnea uses CPAP -Chronic umbilical hernia -Mild cognitive impairment -Chronic gait dysfunction sometimes uses a walker otherwise mainly a chair Disposition: -Patient got a unit of blood last night. 2 more units were ordered by me this morning. Moved to the ICU. Patient aspirin has been held. Given PPI. GI was consulted with reviewed her endoscopy. Accu-Cheks will be closely followed. Patient otherwise a clear liquid diet. Continue with IV Invanz. Discussed with the patient. Patient never EGD tomorrow morning. Put on IV PPI. 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, chronic venous ulcer left anterior lower leg-treated in [facility], sepsis from L leg wound, chronic anemia, hyperkalemia, CKD-spouse states his kidneys function at 28%, DELVIN with Cpap, possible starting of dementia, confusion at times at night, bilateral lower leg varicosities, umbilical hernia, Hpylori, ambulates very little with walker and mostly wheelchair bound, recent UTI History of Any Multi-Drug Resistant Organisms: ESBL, VRE Date of last positivie culture/infection: 11/28/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 Past Anesthesia/Blood Transfusion Reactions: No Reported Reaction Date of Last Stent Placement:: 10/2015 Past Psychological History: No Psychological Hx Reported Additional Psychological History / Comment(s): Patient has been a lifelong nonsmoker. He denies any medical marijuana, marijuana, street drug use. He den ies any alcohol abuse. Patient lives at home with his . They are in a second floor apartment. He is retired from [employer]. No service no recent travel.No animal exposures Smoking Status: Never smoker Past Alcohol Use History: None Reported Additional Past Alcohol Use History / Comment(s): Patient has been a lifelong nonsmoker. He denies any medical marijuana, marijuana, street drug use. He denies any alcohol abuse. Past Drug Use History: None Reported - Past Family History Father Family Medical History: COPD Additional Family Medical History / Comment(s): AT AGE 64- EMPHYSEMA(SMOKER) Mother Family Medical History: Diabetes Mellitus, Hypertension Additional Family Medical History / Comment(s): LUPUS, LEG AMPUTATED. MOM IN HER 60'S Medications and Allergies Home Medications Medication Instructions Recorded Confirmed Type Allopurinol [Zyloprim] 100 mg PO DAILY 04/22/15 12/09/19 History Cholecalciferol [Vitamin D3 (25 5,000 unit PO HS@209904/22/15 12/09/19 History Mcg = 1000 Iu)] Fish Oil/Dha/Epa [Fish Oil 1,200 1 cap PO DAILY@0900 09/06/15 12/09/19 History mg Fish Oil] Ferrous Sulfate [Iron (65 MG 325 mg PO DAILY@0900,1700 10/23/15 12/09/19 History Elemental)] amLODIPine [Norvasc] 5 mg PO BID@0900,2100 08/27/17 12/09/19 History Calcitriol 0.25 mcg PO DAILY@0900 12/16/18 12/09/19 History HYDROcodone/APAP 10-325MG [[place] 1 tab PO TID PRN #9 tab 12/04/19 12/09/19 Rx 10-325] Aspirin 81 mg PO DAILY@0900 12/09/19 12/09/19 History Atorvastatin [Lipitor] 20 mg PO HS@2100 12/09/1906/20 History Ertapenem [INVanz] 1 gm IVPB DAILY@59912/09/19 12/09/19 History Gabapentin [Neurontin] 100 mg PO TID@0600,1400,0 12/09/19 12/09/19 History INSULIN ASPART (NovoLOG) [NovoLOG 7 unit SQ ACHS 12/09/19 12/09/19 History (formulary)] Insulin Glargine,Hum.rec.anlog 30 unit SQ DAILY@0900 12/09/19 12/09/19 History [Basaglar Kwikpen U-100] Magnesium Oxide [Mag-Ox] 400 mg PO HS@209912/09/19 12/09/19 History Psyllium Husk 100% [Metamucil 6 gm PO BID@0900,209912/09/19 12/09/19 History Packet] hydrALAZINE HCL 50 mg PO TID@0600,1400,2200 12/09/19 12/09/19 History Allergies Allergy/AdvReac Type Severity Reaction Status Date / Time aspirin [From Anacin] Allergy Rash/Hives Verified 12/09/19 20:54 sulfamethoxazole AdvReac affects Verified 12/09/19 20:54 [From Bactrim] kidneys trimethoprim [From Bactrim] AdvReac Unknown Verified 12/09/19 20:54 Physical Exam Vitals: Vital Signs Temp Pulse Pulse Resp BP BP Pulse Ox 12/10/19 11:03 98.6 F 73 16 131/48 97 12/10/19 11:00 73 17 125/49 98 12/10/19 10:53 99.0 F 72 14 125/49 98 12/10/19 10:00 98.7 F 73 13 128/51 98 12/10/19 09:19 80 14 98 12/10/19 08:00 98 F 79 18 134/56 98 12/10/19 07:57 98 F 79 18 134/56 98 12/10/19 04:00 99.3 F 87 22 99/60 99 12/10/19 02:55 99.3 F 87 22 99/60 12/10/19 00:08 99.1 F 107 H 20 115/60 12/10/19 00:00 98.6 F 98 18 136/67 98 12/09/19 23:38 98.8 F 100 18 133/71 12/09/19 23:28 99.7 F H 101 H 20 111/65 12/09/19 20:00 98.8 F 89 18 171/63 97 12/09/19 19:24 80 18 146/50 99 12/09/19 18:40 79 18 156/50 99 12/09/19 17:49 98.1 F 66 16 122/46 99 Intake and Output 12/09/19 12/10/19 12/10/19 22:59 06:59 14:59 Intake Total 640 1910 20 Output Total 0 Balance 640 1910 20 Intake: IV 20 0.9 at KVO 20 Intake, IV Titration 100 750 Amount Sodium Chloride 0.9% 1, 100 750 000 ml @ 100 mls/hr IV . Q10H STA Rx#:[id number] Oral 540 540 Blood Product 620 0 Rc As-1 Unit 0 [id number] Rc As-3 Unit 310 [id number] Output: Urine 0 Other: Voiding Method Diaper Diaper # Voids 0 # Bowel Movements 3 Weight 136.078 kg 142.5 kg Results CBC & Chem 7: 12/10/19 05:46 12/10/19 05:46 Labs: Abnormal Lab Results - Last 24 Hours (Table) 12/09/19 12/09/19 12/09/19 Range/Units 17:51 17:51 17:51 WBC 15.2 H (3.8-10.6) k/uL RBC 1.98 L (4.30-5.90) m/uL Hgb 6.1 L* (13.0-17.5) gm/dL Hct 18.8 L* (39.0-53.0) % RDW 15.9 H (11.5-15.5) % Plt Count 481 H (150-450) k/uL Neutrophils # 12.1 H (1.3-7.7) k/uL APTT 19.3 L (22.0-30.0) sec Sodium 136 L (137-145) mmol/L Potassium (3.5-5.1) mmol/L Chloride 109 H (98-107) mmol/L Carbon Dioxide 21 L (22-30) mmol/L BUN 61 H (9-20) mg/dL Creatinine 2.19 H (0.66-1.25) mg/dL Glucose 138 H (74-99) mg/dL POC Glucose (mg/dL) (75-99) mg/dL Calcium (8.4-10.2) mg/dL Magnesium 2.5 H (1.6-2.3) mg/dL Total Bilirubin <0.1 L (0.2-1.3) mg/dL Total Protein 5.9 L (6.3-8.2) g/dL Albumin 3.2 L (3.5-5.0) g/dL C. difficile (EIA) Intrp (Negative) Crossmatch 12/09/19 12/10/19 12/10/19 Range/Units 17:51 05:30 05:46 WBC 16.8 H (3.8-10.6) k/uL RBC 1.72 L (4.30-5.90) m/uL Hgb 5.3 L* (13.0-17.5) gm/dL Hct 16.1 L* (39.0-53.0) % RDW 17.2 H (11.5-15.5) % Plt Count (150-450) k/uL Neutrophils # 13.3 H (1.3-7.7) k/uL APTT (22.0-30.0) sec Sodium (137-145) mmol/L Potassium (3.5-5.1) mmol/L Chloride (98-107) mmol/L Carbon Dioxide (22-30) mmol/L BUN (9-20) mg/dL Creatinine (0.66-1.25) mg/dL Glucose (74-99) mg/dL POC Glucose (mg/dL) (75-99) mg/dL Calcium (8.4-10.2) mg/dL Magnesium (1.6-2.3) mg/dL Total Bilirubin (0.2-1.3) mg/dL Total Protein (6.3-8.2) g/dL Albumin (3.5-5.0) g/dL C. difficile (EIA) Intrp Positive A (Negative) Crossmatch See Detail 12/10/19 12/10/19 12/10/19 Range/Units 05:46 06:48 09:19 WBC (3.8-10.6) k/uL RBC (4.30-5.90) m/uL Hgb (13.0-17.5) gm/dL Hct (39.0-53.0) % RDW (11.5-15.5) % Plt Count (150-450) k/uL Neutrophils # (1.3-7.7) k/uL APTT (22.0-30.0) sec Sodium (137-145) mmol/L Potassium 5.2 H (3.5-5.1) mmol/L Chloride 113 H (98-107) mmol/L Carbon Dioxide 19 L (22-30) mmol/L BUN 72 H (9-20) mg/dL Creatinine 2.33 H (0.66-1.25) mg/dL Glucose 157 H (74-99) mg/dL POC Glucose (mg/dL) 190 H 169 H (75-99) mg/dL Calcium 8.3 L (8.4-10.2) mg/dL Magnesium (1.6-2.3) mg/dL Total Bilirubin (0.2-1.3) mg/dL Total Protein (6.3-8.2) g/dL Albumin (3.5-5.0) g/dL C. difficile (EIA) Intrp (Negative) Crossmatch Thrombosis Risk Factor Assmnt - Choose All That Apply Any of the Below Risk Factors Present?: Yes Each Factor Represents 1 point: Abnormal pulmonary function (COPD), Obesity (BMI >25), Sepsis (< 1month) Other Risk Factors: Yes Each Risk Factor Represents 2 Points: Age 61-74 years Other congenital or acquired thrombophilia - If yes, enter type in comment: No Thrombosis Risk Factor Assessment Total Risk Factor Score: 5 Thrombosis Risk Factor Assessment Level: High Risk
[2019-12-10 16:58] LABS: Glucose,Whole Blood 106 mg/dL (75-99)
[2019-12-10] MEDS: MAGNESIUM OXIDE 400 MG TAB PO SCH (19:57)
[2019-12-10] MEDS: ATORVASTATIN 20 MG TAB PO SCH (19:58)
[2019-12-10] MEDS: PANTOPRAZOLE 40 MG/10 ML VIAL IV SCH (19:58)
[2019-12-10] MEDS: CHOLECALCIFEROL 1,000 UNIT TAB PO SCH (20:05)
[2019-12-10 20:15] LABS: Glucose,Whole Blood 139 mg/dL (75-99)
[2019-12-10 20:33] LABS: Anisocytosis Slight; Basophils # (A) 0.1 k/uL (0-0.2); Basophils % (A) 1 %; Eosinophils # (A) 0.3 k/uL (0-0.7); Eosinophils % (A) 2 %; HCT 20.6 % (39.0-53.0); Lymphocytes % (A) 13 %; MCH 29.7 pg (25.0-35.0); MCHC 31.8 g/dL (31.0-37.0); MCV 93.3 fL (80.0-100.0); Mean Platelet Volume 7.4; Monocytes # (A) 0.7 k/uL (0-1.0); Monocytes % (A) 5 %; Neutrophils # (A) 12.3 k/uL (1.3-7.7); Neutrophils % (A) 79 %; Platelet Count 334 k/uL (150-450); RDW 16.2 % (11.5-15.5); WBC 15.5 k/uL (3.8-10.6)
[2019-12-10 20:43] LABS: HGB 6.5 gm/dL (13.0-17.5)
[2019-12-11 05:05] LABS: Basophils # (A) 0.1 k/uL (0-0.2); Basophils % (A) 0 %; Eosinophils # (A) 0.4 k/uL (0-0.7); Eosinophils % (A) 3 %; HCT 21.7 % (39.0-53.0); HGB 7.2 gm/dL (13.0-17.5); Hypochromasia Slight; Lymphocytes # (A) 2.2 k/uL (1.0-4.8); Lymphocytes % (A) 15 %; MCH 31.5 pg (25.0-35.0); MCV 95.3 fL (80.0-100.0); Mean Platelet Volume 7.5; Monocytes # (A) 0.8 k/uL (0-1.0); Monocytes % (A) 6 %; Neutrophils # (A) 10.5 k/uL (1.3-7.7); Neutrophils % (A) 75 %; Platelet Count 266 k/uL (150-450); RBC 2.28 m/uL (4.30-5.90); RDW 15.8 % (11.5-15.5); WBC 14.1 k/uL (3.8-10.6)
[2019-12-11 05:16] LABS: Calcium 8.4 mg/dL (8.4-10.2); Potassium 4.7 mmol/L (3.5-5.1)
[2019-12-11] MEDS: GABAPENTIN 100 MG CAP PO SCH ×3 (06:01→20:42)
[2019-12-11] MEDS: hydrALAZINE HCL 50 MG TAB PO SCH ×3 (06:01→20:42)
[2019-12-11] MEDS: ERTAPENEM 1 GM in SODIUM CHLORIDE 0.9% 50 ML IVPB SCH (06:08)
[2019-12-11 06:42] LABS: Glucose,Whole Blood 94 mg/dL (75-99)
[2019-12-11] MEDS: INSULIN ASPART (NovoLOG) 100 UNIT/ML VIAL SQ SCH ×4 (06:57→20:42)
[2019-12-11] MEDS: INSULIN DETEMIR (LEVEMIR) 100 UNIT/ML SYR SQ SCH (07:02)
[2019-12-11] MEDS: PANTOPRAZOLE 40 MG/10 ML VIAL IV SCH ×2 (08:35→20:43)
[2019-12-11] MEDS ORDERED: PANTOPRAZOLE 40 MG/10 ML VIAL IV SCH (09:00)
--- NOTE | 2019-12-11 09:03 | XR ---
EXAMINATION TYPE: XR chest 1V portable DATE OF EXAM: 12/11/2019 COMPARISON: 11/30/2019 HISTORY: Fever TECHNIQUE: Single frontal view of the chest is obtained. FINDINGS: The heart is enlarged. There is no pneumothorax. There is biapical pleural thickening. Coa rsened interstitium stable. Arthropathy of the shoulder. IMPRESSION: 1. Mild cardiomegaly with coarsened interstitium may been the basis of reduced inspiration rather benny n interstitial pneumonitis or venous congestion correlate clinically.
[2019-12-11] MEDS: SODIUM CHLORIDE 0.9% 1,000 ML IV SCH ×2 (11:26→20:44)
[2019-12-11] MEDS ORDERED: VANCOMYCIN ORAL SOLUTION 250 MG/5 ML BOTTLE PO SCH (12:00)
[2019-12-11 13:19] LABS: Glucose,Whole Blood 98 mg/dL (75-99)
--- NOTE | 2019-12-11 13:22 | P.PN ---
Subjective Progress Note Date: 12/11/19 Principal diagnosis: Acute GI bleeding and acute blood loss anemia. This is a pleasant 69-year-old gentleman who follows with Dr. Flowers as his primary care provider. He has a history of diabetes mellitus, peripheral neuropathy with chronic lower extremity venous ulceration and previous sepsis and cellulitis of the left leg. He has had ESBL urinary tract infection, hyperlipidemia, hypertension, obstructive sleep apnea, chronic kidney disease, early dementia. He was discharged from here on 12/04/2019 to [facility] after being treated for an acute UTI with cystitis from ESBL E. coli and acute on chronic lower extremity cellulitis. He was being treated with IV Invanz via midline of the left upper extremity. He came in for follow-up blood work yesterday and was found to have a hemoglobin of 6.1. He received 1 unit of packed red blood cells. He was admitted to the selective care unit and earlier this morning he had developed black tarry stool with blood clots and ongoing dizziness and lightheadedness. His hemoglobin was 5.3. He was transferred to the intensive care unit where consulted for the same. He is seen resting fairly comfortably in bed. He is awake and alert. He has remained hemodynamically stable. He is receiving the first of 2 units of packed red blood cells ordered for today. No shortness of breath. He is on room air maintaining good O2 saturations in the 90s. No chest pain. No dizziness or lightheadedness currently. C. difficile screen is positive. Stool for occult blood positive. Urine culture pending. He is continued on Invanz. On IV Protonix. On clear liquid diet. He has been seen by GI services and planning for EGD in a.m. Patient was evaluated today on 12/11/19, patient received a total of 4 units of packed RBCs since admission. Hemoglobin this morning is 7.2. Scheduled to undergo EGD later this afternoon by gastroenterology. Patient seems to be comfortable, in bed, O2 saturations 97% on room air. His C. difficile screening came back positive. Patient has history of ESBL E. coli in the urine, and he has chronic left leg infection/cellulitis. Hence I have recommended infectious disease consultation. Chest x-ray showed mostly coarse interstitium otherwise unremarkable. PCR for winston virus is negative. Renal profile is slightly better today compared to the last 2 days, BUN is down to 61 creatinine is down to 2.14. Bicarb remains low at 19. The patient is relatively asymptomatic, he does have mostly dark maroon colored stools. No active vomiting or hematemesis noted. Objective - Vital Signs Vital signs: Vital Signs Temp 98.7 F 12/11/19 12:00 Pulse 68 12/11/19 12:00 Resp 14 12/11/19 12:00 BP 131/59 12/11/19 12:00 Pulse Ox 97 12/11/19 12:00 Intake & Output 12/10/19 12/11/19 12/11/19 18:59 06:59 18:59 Intake Total 660 840 340 Output Total 735 1585 690 Balance -75 -745 -350 Weight 133.9 kg Intake: IV 40 240 340 0.9 at KVO 40 240 340 Intake, IV Titration 50 Amount Ertapenem 1 gm In Sodium 50 Chloride 0.9% 50 ml @ 100 mls/hr IVPB DAILY@0600 [facility] Rx#:[id number] Tube Feeding 240 Blood Product 620 310 Rc As-1 Unit 310 [id number] Rc As-3 Unit 310 [id number] Rc Pheresis 2 As3 Unit 310 [id number] Output: Urine 735 1585 690 Other: Voiding Method Indwelling Catheter Indwelling Catheter Indwelling Catheter # Voids 1 # Bowel Movements 1 1 - Exam GENERAL EXAM: Revealed a 69-year-old white male in no distress. HEAD: Normocephalic. EYES: Normal reaction of pupils, equal size. NOSE: Clear with pink turbinates. THROAT: No erythema or exudates. NECK: No masses, no JVD. CHEST: No chest wall deformity. LUNGS: Equal air entry with no crackles, wheeze, rhonchi or dullness. CVS: S1 and S2 normal with no audible murmur, regular rhythm. ABDOMEN: Umbilical hernia noted. No hepatosplenomegaly, hyperactive bowel sounds, no guarding or rigidity. SPINE: No scoliosis or deformity SKIN: Chronic cellulitis of lower extremities left greater than right, both are wrapped with Pastor wrappings. CENTRAL NERVOUS SYSTEM: No focal deficits, tone is normal in all 4 extremities. Patient is bedbound for a number of years. EXTREMITIES: There is 1-2+ peripheral edema. No clubbing, no cyanosis. Pe ripheral pulses are intact. Pastor wrap to the left lower extremity. - Labs CBC & Chem 7: 12/11/19 04:22 12/11/19 04:22 Labs: Abnormal Lab Results - Last 24 Hours (Table) 12/09/19 12/10/19 12/10/19 Range/Units 17:51 16:57 20:08 WBC 15.5 H (3.8-10.6) k/uL RBC 2.20 L (4.30-5.90) m/uL Hgb 6.5 L* (13.0-17.5) gm/dL Hct 20.6 L (39.0-53.0) % RDW 16.2 H (11.5-15.5) % Neutrophils # 12.3 H (1.3-7.7) k/uL Chloride (98-107) mmol/L Carbon Dioxide (22-30) mmol/L BUN (9-20) mg/dL Creatinine (0.66-1.25) mg/dL Glucose (74-99) mg/dL POC Glucose (mg/dL) 106 H (75-99) mg/dL Crossmatch See Detail 12/10/19 12/11/19 12/11/19 Range/Units 20:14 04:22 04:22 WBC 14.1 H (3.8-10.6) k/uL RBC 2.28 L (4.30-5.90) m/uL Hgb 7.2 L (13.0-17.5) gm/dL Hct 21.7 L (39.0-53.0) % RDW 15.8 H (11.5-15.5) % Neutrophils # 10.5 H (1.3-7.7) k/uL Chloride 113 H (98-107) mmol/L Carbon Dioxide 19 L (22-30) mmol/L BUN 61 H (9-20) mg/dL Creatinine 2.14 H (0.66-1.25) mg/dL Glucose 62 L (74-99) mg/dL POC Glucose (mg/dL) 139 H (75-99) mg/dL Crossmatch Assessment and Plan Assessment: Acute anemia secondary to suspected upper GI bleeding, patient is scheduled to undergo EGD today. Recent E. coli ESBL urinary tract infection and cellulitis. C. difficile colitis. Acute on chronic renal failure. Benign essential hypertension. Dyslipidemia. Type 2 diabetes. Diabetic neuropathy Degenerative joint disease Medical debility and the patient is bedbound, supposedly secondary to severe neuropathy and degenerative joint disease. Obstructive sleep apnea syndrome. Recommendation: Continue present supportive care measures. Continue hemodynamic monitoring. Continue Protonix. Continue to monitor hemoglobin and correct accordingly if below 7. EGD is scheduled today. Continue Invanz, ID was consulted. We'll continue to follow. And will continue to monitor in the ICU Time with Patient: Less than 30
[2019-12-11] MEDS ORDERED: PROPOFOL 10 MG/ML 20 ML VIAL IV ONE (13:29)
[2019-12-11] MEDS ORDERED: IV FLUID CONTINUATION 1,000 ML IV ONE ×2 (13:34)
[2019-12-11] MEDS ORDERED: EPINEPHrine 10 ML SYRINGE (0.1 MG/ML) MISCELLANE ONE (13:46)
--- NOTE | 2019-12-11 13:51 | P.PCN ---
Date of Procedure: 12/11/19 Procedure(s) Performed: BRIEF HISTORY: Patient is a 69-year-old, pleasant, white male admitted hospital with severe symptomatic anemia and hemoglobin of 5.9 g/dL. After he came to the emergency room he had multiple episodes of black tarry stools. His repeat hemoglobin after one unit was 6.3 and hence he received 2 more units of PRBC transfusion. He scheduled for an upper endoscopy to evaluate further. PROCEDURE PERFORMED: Esophagogastroduodenoscopy with injection epinephrine and Endo Clip placement and biopsy. PREOPERATIVE DIAGNOSIS: Black Tarry stool and severe symptomatic. IV sedation per anesthesia. PROCEDURE: After informed consent was obtained, the patient was brought into the endoscopy unit. IV sedation was administered by Anesthesia under continuous monitoring. Initially the Olympus GIF-140 video endoscope was inserted into the mouth. Esophagus intubated without any difficulty. It was gradually advanced into the stomach and duodenum and carefully examined. The second part of the duodenum appeared normal. In the bulb of the duodenum there was a 2 cm deep ulceration identified with some oozing noted.Irrigation was performed. I injected 1 in 10,000 epinephrine for total of 7 mL with good hemostasis. Following this an Endo Clip was placed in the base of the ulcer. Hemostasis was achieved The scope at this time was withdrawn to the stomach, adequately insufflated with air, and upon careful examination, mucosa of the antrum, had gastritis and biopsies were done from this area. The body, cardia and the fundus appeared normal. The scope was then withdrawn into the esophagus. The GE junction was located at 39 cm from the incisors. The esophagus appeared normal. There were no erosions or ulcerations seen and the patient tolerated the procedure well. IMPRESSION: 1. 2 cm deep duodenal bulbar ulcer with oozing status post injection epinephrine followed by Endo Clip placement with good hemostasis as described above. 2. Antral gastritis. RECOMMENDATIONS: The findings of this examination were discussed with the patient. He will be started on a clear liquid diet. Continue with Protonix 40 mg every 12 hours and monitor CBC every 6 hours and transfuse if the hemoglobin is less than 7..
[2019-12-11] MEDS ORDERED: ONDANSETRON 4 MG/2 ML VIAL IVP PRN (15:42)
--- NOTE | 2019-12-11 16:15 | P.PN ---
Progress Note - Text Progress Note Date: 12/11/19 Chief Complaint: Anemia History of presenting complaint: Patient is a 69-year-old male with a past medical history of chronic venous stasis ulcers with recurrent cellulitis of the lower extremities, sleep apnea, hypertension, diabetes mellitus type 2 and chronic kidney disease stage IV . Recently the hospital from November 27 through December 03. Admitted with sepsis from UTI and cystitis. Treated with IV cefepime.-.urine culture positive for E. coli ESBL. Patient responded well to IV ertapenem. Patient is discharged to get 10 more days of IV antibiotics. Patient was discharged to [facility]. He was now transferred back with hemoglobin of 6. Patient not able to ambulate was only being transferred to a chair. Patient admission was noted to be having bloody stools. Did complain of some epigastric discomfort. No nausea vomiting. Patient appetite has not been good. Denies any fever and chills. Hemoglobin in the ER initially was 6.1 which intraoperative 5.3 this morning. Patient is given a unit hemoglobin last night. And 2 more units were ordered by me this morning. He also decided to move the patient to the ICU with consultation to card checker and GI. Admitted with acute GI bleed. Patient received a total of 4 units of blood. Also having diarrhea tested positive for C. diff. Today-last evening patient had ruled out bowel movement with some stool. Tested positive for C. diff started on oral vancomycin. This afternoon patient was taken down for EGD found have a bleeding duodenal ulcer and antral gastritis. No abdominal pain. Review of systems: Was done for constitutional, cardiovascular, GI, pulmonary. relevant finding as above Active Medications Hydrocodone Bitart/Acetaminophen ([place] 10) 1 each PO TID PRN PRN Reason: Pain Last Admin: 12/09/19 23:35 Dose: 1 each Documented by: Allopurinol (Zyloprim) 100 mg PO DAILY [facility] Last Admin: 12/10/19 09:48 Dose: 100 mg Documented by: Amlodipine Besylate (Norvasc) 5 mg PO BID@0900,2100 [facility] Last Admin: 12/10/19 19:58 Dose: 5 mg Documented by: Atorvastatin Calcium (Lipitor) 20 mg PO HS@2100 [facility] Last Admin: 12/10/19 19:58 Dose: 20 mg Documented by: Calcitriol (Rocaltrol) 0.25 mcg PO DAILY@0900 [facility] Last Admin: 12/10/19 11:20 Dose: 0.25 mcg Documented by: Vázquez Syrup (Vázquez Syrup) 5 ml PO QID [facility] Cholecalciferol (Vitamin D3 (25 Mcg = 1000 Iu)) 5,000 unit PO HS@2100 [facility] Last Admin: 12/10/19 20:05 Dose: 5,000 unit Documented by: Gabapentin (Neurontin) 100 mg PO TID@0600,1400,2200 [facility] Last Admin: 12/11/19 06:01 Dose: Not Given Documented by: Hydralazine HCl (Apresoline) 50 mg PO TID@0600,1400,2200 [facility] Last Admin: 12/11/19 06:01 Dose: Not Given Documented by: Sodium Chloride (Saline 0.9%) 1,000 mls @ 100 mls/hr IV .Q10H [facility] Last Admin: 12/11/19 11:26 Dose: 100 mls/hr Documented by: Insulin Aspart (Novolog) 0 unit SQ [facility]; Protocol Last Admin: 12/11/19 14:19 Dose: Not Given Documented by: Insulin Detemir (Levemir) 30 unit SQ DAILY@0700 [facility] Last Admin: 12/11/19 07:02 Dose: 30 unit Documented by: Magnesium Oxide (Mag-Ox) 400 mg PO HS@2100 [facility] Last Admin: 12/10/19 19:57 Dose: 400 mg Documented by: Ondansetron HCl (Zofran) 4 mg IVP Q6HR PRN PRN Reason: Nausea And Vomiting Last Admin: 12/11/19 15:55 Dose: 4 mg Documented by: Pantoprazole Sodium (Protonix) 40 mg IV BID [facility] Last Admin: 12/11/19 08:35 Dose: 40 mg Documented by: Vancomycin HCl (Vancomycin Oral Solution) 250 mg PO Q6HR [facility] On examination: VITAL SIGNS: 98.7, 68, 14, 131/59, 97% on room air GENERAL APPEARANCE: Laying in bed, awake HEENT: Normal external appearance of nose and ear. Oral cavity normal EYES: Pupils equal. Conjunctiva pale NECK: JVD not raised. Mass not palpable. RESPIRATORY: Respiratory effort normal. Lungs clear to auscultation. CARDIOVASCULAR: First and second sounds normal. No edema. ABDOMEN: Soft. Liver and spleen not palpable. No tenderness. No mass palpable. PSYCHIATRY: Alert and oriented x3. Mood and affect normal. DERMATOLOGICAL: Chronic Left lower extremity wound-with dressing with Pastor wrap INVESTIGATIONS, reviewed in the clinical context: White count 14.1 hemoglobin 7.2 potassium 4.7 bun 61 creatinine 2.14 Previous testing On December 03: Hemoglobin 7.4 bun 63 creatinine 1.87 Assessment: -Acute GI bleed, persistent POA -Bleeding 2 cm duodenal ulcer and antral gastritis status post epinephrine injection and Endo Clip placement-on December 10 -Acute severe blood loss anemia symptomatic requiring blood transfusion, POA. 4 units of blood were given. -Acute UTI with cystitis, from E. coli/ESBL causing's sepsis, on recent admission patient finished IV ertapenem on December 13 -chronicleft lower extremity cellulitis-improved -Hypertension with chronic kidney disease -Morbid obesity BMI 43.0 -COPD -Diabetes mellitus type 2 -Essential hypertension -Primary osteoarthritis -Chronic kidney disease stage 3 -Diabetic peripheral neuropathy -Chronic lower extremity wound for which [facility] -Obstructive sleep apnea uses CPAP -Chronic umbilical hernia -Mild cognitive impairment -Chronic gait dysfunction sometimes uses a walker otherwise mainly a chair Disposition: -Status post EGD today with epinephrine injection and Endo Clip on the duodenal ulcer. Repeat H&H in the morning. Patient received a total of 4 units of blood. Follow closely. Continue with PPI. Continue with clear liquid diet.
[2019-12-11] MEDS: CHERRY FLAVOR 60 ML BOTTLE PO SCH ×2 (16:26→18:10)
[2019-12-11] MEDS: VANCOMYCIN ORAL SOLUTION 250 MG/5 ML BOTTLE PO SCH ×2 (16:27→18:10)
[2019-12-11] MEDS: amLODIPine 5 MG TAB PO SCH ×2 (16:30→20:42)
[2019-12-11] MEDS: CALCITRIOL 0.25 MCG CAP PO SCH (16:30)
[2019-12-11] MEDS: ALLOPURINOL 100 MG TAB PO SCH (16:30)
[2019-12-11 18:24] LABS: Glucose,Whole Blood 118 mg/dL (75-99)
[2019-12-11 20:33] LABS: Glucose,Whole Blood 178 mg/dL (75-99)
[2019-12-11] MEDS: MAGNESIUM OXIDE 400 MG TAB PO SCH (20:42)
[2019-12-11] MEDS: CHOLECALCIFEROL 1,000 UNIT TAB PO SCH (20:42)
[2019-12-11] MEDS: ATORVASTATIN 20 MG TAB PO SCH (20:42)
[2019-12-12] MEDS: VANCOMYCIN ORAL SOLUTION 250 MG/5 ML BOTTLE PO SCH ×5 (00:39→21:57)
[2019-12-12] MEDS: CHERRY FLAVOR 60 ML BOTTLE PO SCH ×5 (00:39→21:56)
[2019-12-12 04:52] LABS: Anisocytosis Slight; Basophils % (A) 0 %; Eosinophils # (A) 0.3 k/uL (0-0.7); Eosinophils % (A) 2 %; Hypochromasia Slight; Lymphocytes # (A) 1.3 k/uL (1.0-4.8); Lymphocytes % (A) 11 %; MCH 30.6 pg (25.0-35.0); MCHC 31.9 g/dL (31.0-37.0); Mean Platelet Volume 7.4; Monocytes # (A) 0.6 k/uL (0-1.0); Monocytes % (A) 5 %; Neutrophils # (A) 10.1 k/uL (1.3-7.7); Neutrophils % (A) 81 %; Platelet Count 328 k/uL (150-450); RDW 16.2 % (11.5-15.5); WBC 12.5 k/uL (3.8-10.6)
[2019-12-12 05:09] LABS: Calcium 8.3 mg/dL (8.4-10.2); Potassium 5.3 mmol/L (3.5-5.1)
[2019-12-12] MEDS: INSULIN ASPART (NovoLOG) 100 UNIT/ML VIAL SQ SCH ×4 (05:32→21:52)
[2019-12-12] MEDS: GABAPENTIN 100 MG CAP PO SCH ×3 (05:32→21:55)
[2019-12-12] MEDS: hydrALAZINE HCL 50 MG TAB PO SCH ×3 (05:32→21:55)
[2019-12-12] MEDS: SODIUM CHLORIDE 0.9% 1,000 ML IV SCH ×2 (05:33→12:23)
--- NOTE | 2019-12-12 06:48 | P.CONS ---
History of Present Illness - Reason for Consult Consult date: 12/11/19 c diff colitis and UTI Requesting physician: Jonh Butcher - Chief Complaint Low hemoglobin and diarrhea x few days - History of Present Illness Patient is a 69-year-old male who was recently admitted at this facility with sepsis patient was diagnosed with a complicated urine tract infection with urine culture positive for ESBL E. coli, patient got a midline an d was sent to rehab on IV Invanz 1 g daily patient apparently did have a blood work done in the outpatient setting where he was noticed to have hemoglobin of 6.1 for the patient has been sent to the ER for further evaluation patient be complaining of diarrhea that has been going on for the last few days with multiple loose stools in the ultrasound having a black color stools with multiple stools today patient complaining of some mild abdominal pain more of a dull aching quality intensity 5-6 out of 10 and no radiation, has felt Nauseated but no vomiting, patient denies any urine symptom at this point did get a Maria catheter as part of ER package but urine is currently draining clear urine p atient was admitted to hospital with abdominal fever of 99.7 however is afebrile some plan patient did have a white count of 15.2 up to 16.8 currently being C. difficile was checked which came back positive patient has been continued on IV Invanz, vancomycin p.o. was added infectious disease consulted for further management of antibiotic. Review of Systems Positive point has been mentioned in HPI rest of the systems are negative 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, chronic venous ulcer left anterior lower leg-treated in [facility], sepsis from L leg wound, chronic anemia, hyperkalemia, CKD-spouse states his kidneys function at 28%, DELVIN with Cpap, possible starting of dementia, confusion at times at night, bilateral lower leg varicosities, umbilical hernia, Hpylori, ambulates very little with walker and mostly wheelchair bound, recent UTI History of Any Multi-Drug Resistant Organisms: ESBL, 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 Past Anesthesia/Blood Transfusion Reactions: No Reported Reaction Date of Last Stent Placement:: 10/2015 Past Psychological History: No Psychological Hx Reported Additional Psychological History / Comment(s): Patient has been a lifelong nonsmoker. He denies any medical marijuana, marijuana, street drug use. He denies any alcohol abuse. Patient lives at home with his . They are in a second floor apartment. He is retired from [employer]. No service no recent travel.No animal exposures Smoking Status: Never smoker Past Alcohol Use History: None Reported Additional Past Alcohol Use History / Comment(s): Patient has been a lifelong nonsmoker. He denies any medical marijuana, marijuana, street drug use. He denies any alcohol abuse. Past Drug Use History: None Reported - Past Family History Father Family Medical History: COPD Additional Family Medical History / Comment(s): AT AGE 64- EMPHYSEMA(SMOKER) Mother Family Medical History: Diabetes Mellitus, Hypertension Additional Family Medical History / Comment(s): LUPUS, LEG AMPUTATED. MOM IN HER 60'S Medications and Allergies Home Medications Medication Instructions Recorded Confirmed Type Allopurinol [Zyloprim] 100 mg PO DAILY 04/22/15 12/09/19 History Cholecalciferol [Vitamin D3 (25 5,000 unit PO HS@2100 04/22/15 12/09/19 History Mcg = 1000 Iu)] Fish Oil/Dha/Epa [Fish Oil 1,200 1 cap PO DAILY@0900 09/06/15 12/09/19 History mg Fish Oil] Ferrous Sulfate [Iron (65 MG 325 mg PO DAILY@0900,1700 10/23/15 12/09/19 History Elemental)] amLODIPine [Norvasc] 5 mg PO BID@0900,2100 08/27/17 12/09/19 History Calcitriol 0.25 mcg PO DAILY@0900 12/16/18 12/09/19 History HYDROcodone/APAP 10-325MG [[place] 1 tab PO TID PRN #9 tab 12/04/19 12/09/19 Rx 10-325] Aspirin 81 mg PO DAILY@89912/09/19 12/09/19 History Atorvastatin [Lipitor] 20 mg PO HS@209912/09/19 12/09/19 History Ertapenem [INVanz] 1 gm IVPB DAILY@59912/09/19 12/09/19 History Gabapentin [Neurontin] 100 mg PO TID@0600,1400,2200 12/09/19 12/09/19 History INSULIN ASPART (NovoLOG) [NovoLOG 7 unit SQ ACHS 12/09/19 12/09/19 History (formulary)] Insulin Glargine,Hum.rec.anlog 30 unit SQ DAILY@0900 12/09/19 12/09/19 History [Basaglar Kwikpen U-100] Magnesium Oxide [Mag-Ox] 400 mg PO HS@209912/09/19 12/09/19 History Psyllium Husk 100% [Metamucil 6 gm PO BID@0900,2100 12/09/19 12/09/19 History Packet] hydrALAZINE HCL 50 mg PO TID@0600,1400,0 12/09/19 12/09/19 History Allergies Allergy/AdvReac Type Severity Reaction Status Date / Time aspirin [From Anacin] Allergy Rash/Hives Verified 12/09/19 20:54 sulfamethoxazole AdvReac affects Verified 12/09/19 20:54 [From Bactrim] kidneys trimethoprim [From Bactrim] AdvReac Unknown Verified 12/09/19 20:54 Physical Exam Vitals: Vital Signs Temp Pulse Resp BP Pulse Ox 12/11/19 11:00 66 12 151/59 95 12/11/19 10:00 64 14 121/40 98 12/11/19 09:00 66 14 118/47 96 12/11/19 08:00 98.4 F 60 22 136/50 97 12/11/19 07:00 67 79 H 161/60 97 12/11/19 06:00 58 L 17 158/68 98 12/11/19 05:00 65 16 140/56 97 12/11/19 04:00 98.7 F 56 L 14 135/56 100 12/11/19 03:00 64 14 127/51 97 12/11/19 02:00 62 13 168/64 96 12/11/19 01:00 67 16 116/75 97 12/11/19 00:11 65 20 98 06/08/20 00:00 98.3 F 71 58 H 143/60 98 12/10/19 23:50 98.3 F 68 19 116/75 99 12/10/19 23:31 98.3 F 75 15 151/56 12/10/19 23:01 98.7 F 73 14 116/66 95 12/10/19 23:00 64 20 141/53 97 12/10/19 22:51 98.6 F 66 21 141/53 98 12/10/19 22:00 70 15 112/84 97 12/10/19 21:00 66 15 126/57 97 12/10/19 20:00 98.6 F 61 15 155/65 96 12/10/19 19:00 69 14 108/68 98 12/10/19 18:00 73 18 133/46 97 12/10/19 17:52 98.2 F 76 14 133/46 99 12/10/19 17:00 70 16 140/88 97 12/10/19 16:00 98.8 F 67 14 141/79 98 12/10/19 15:07 98.7 F 68 14 141/79 97 12/10/19 15:00 70 24 137/59 98 12/10/19 14:37 97.8 F 67 16 137/59 99 12/10/19 14:27 98.9 F 69 16 151/67 97 12/10/19 14:18 98.9 F 67 16 147/62 98 12/10/19 14:00 78 16 151/65 98 12/10/19 13:00 73 13 113/52 98 Intake and Output 12/10/19 12/11/19 12/11/19 22:59 06:59 14:59 Intake Total 410 760 340 Output Total 975 1060 690 Balance -565 -300 -350 Intake: IV 100 160 340 0.9 at KVO 100 160 340 Intake, IV Titration 50 Amount Ertapenem 1 gm In Sodium 50 Chloride 0.9% 50 ml @ 100 mls/hr IVPB DAILY@0600 [facility] Rx#:[id number] Tube Feeding 240 Blood Product 310 310 Rc As-3 Unit 310 [id number] Rc Pheresis 2 As3 Unit 0 310 [id number] Output: Urine 975 1060 690 Other: Voiding Method Indwelling Catheter Indwelling Catheter Indwelling Catheter # Bowel Movements 1 Weight 133.9 kg GENERAL DESCRIPTION: Elderly male lying in bed, no distress. No tachypnea or accessory muscle of respiration use. HEENT: Shows Pallor , no scleral icterus. Oral mucous membrane is dry. NECK: Trachea central, no thyromegaly. LUNGS: Unlabored breathing. Clear to auscultation anteriorly. No wheeze or crackle. HEART: S1, S2, regular rate and rhythm. ABDOMEN: Soft, no tenderness , guarding or rigidity EXTREMITIES: No edema of feet. SKIN: No rash, no masses palpable. NEUROLOGICAL: The patient is awake, alert, oriented x3, mood and affect normal. Results CBC & Chem 7: 12/12/19 04:08 12/12/19 04:08 Labs: Abnormal Lab Results - Last 24 Hours (Table) 12/09/19 12/10/19 12/10/19 Range/Units 17:51 16:57 20:08 WBC 15.5 H (3.8-10.6) k/uL RBC 2.20 L (4.30-5.90) m/uL Hgb 6.5 L* (13.0-17.5) gm/dL Hct 20.6 L (39.0-53.0) % RDW 16.2 H (11.5-15.5) % Neutrophils # 12.3 H (1.3-7.7) k/uL Chloride (98-107) mmol/L Carbon Dioxide (22-30) mmol/L BUN (9-20) mg/dL Creatinine (0.66-1.25) mg/dL Glucose (74-99) mg/dL POC Glucose (mg/dL) 106 H (75-99) mg/dL Crossmatch See Detail 12/10/19 12/11/19 12/11/19 Range/Units 20:14 04:22 04:22 WBC 14.1 H (3.8-10.6) k/uL RBC 2.28 L (4.30-5.90) m/uL Hgb 7.2 L (13.0-17.5) gm/dL Hct 21.7 L (39.0-53.0) % RDW 15.8 H (11.5-15.5) % Neutrophils # 10.5 H (1.3-7.7) k/uL Chloride 113 H (98-107) mmol/L Carbon Dioxide 19 L (22-30) mmol/L BUN 61 H (9-20) mg/dL Creatinine 2.14 H (0.66-1.25) mg/dL Glucose 62 L (74-99) mg/dL POC Glucose (mg/dL) 139 H (75-99) mg/dL Crossmatch Assessment and Plan Assessment: 1-patient presented to hospital with low hemoglobin, and this patient was also complaining of diarrhea with a black tarry stool cramping lower abdominal pain elevated white count and stool for C. difficile positive likely representing symptomatic C. difficile colitis. 2 patient with a recent-history of ESBL E. coli urinary tract infection adequately treated urine was clear (1) C. difficile colitis Current Visit: Yes Status: Acute Code(s): A04.72 - ENTEROCOLITIS D/T CLOSTRIDIUM DIFFICILE, NOT SPCF RECUR SNOMED Code(s): 735801414 Plan: 1-discontinue Invanz 2-vancomycin 2 mg p.o. every 6 hours 3-discontinue Maria catheter decrease the risk of another UTI 4-IV fluids We will follow on clinical condition and cultures to further adjust medication if needed Thank you for this consultation we will follow the patient along with you Time with Patient: Greater than 30
[2019-12-12 07:03] LABS: Glucose,Whole Blood 123 mg/dL (75-99)
[2019-12-12] MEDS: INSULIN DETEMIR (LEVEMIR) 100 UNIT/ML SYR SQ SCH (07:38)
[2019-12-12 07:41] LABS: Glucose,Whole Blood 118 mg/dL (75-99)
[2019-12-12] MEDS: amLODIPine 5 MG TAB PO SCH ×2 (09:40→21:55)
[2019-12-12] MEDS: CALCITRIOL 0.25 MCG CAP PO SCH (09:40)
[2019-12-12] MEDS: ALLOPURINOL 100 MG TAB PO SCH (09:40)
[2019-12-12] MEDS: PANTOPRAZOLE 40 MG/10 ML VIAL IV SCH ×2 (09:40→21:56)
[2019-12-12 12:10] LABS: Glucose,Whole Blood 149 mg/dL (75-99)
--- NOTE | 2019-12-12 13:13 | P.PN ---
Subjective Progress Note Date: 12/12/19 Principal diagnosis: Acute GI bleeding and acute blood loss anemia. This is a pleasant 69-year-old gentleman who follows with Dr. Flowers as his primary care provider. He has a history of diabetes mellitus, peripheral neuropathy with chronic lower extremity venous ulceration and previous sepsis and cellulitis of the left leg. He has had ESBL urinary tract infection, hyperlipidemia, hypertension, obstructive sleep apnea, chronic kidney disease, early dementia. He was discharged from here on 12/04/2019 to [facility] after being treated for an acute UTI with cystitis from ESBL E. coli and acute on chronic lower extremity cellulitis. He was being treated with IV Invanz via midline of the left upper extremity. He came in for follow-up blood work yesterday and was found to have a hemoglobin of 6.1. He received 1 unit of packed red blood cells. He was admitted to the selective care unit and earlier this morning he had developed black tarry stool with blood clots and ongoing dizziness and lightheadedness. His hemoglobin was 5.3. He was transferred to the intensive care unit where consulted for the same. He is seen resting fairly comfortably in bed. He is awake and alert. He has remained hemodynamically stable. He is receiving the first of 2 units of packed red blood cells ordered for today. No shortness of breath. He is on room air maintaining good O2 saturations in the 90s. No chest pain. No dizziness or lightheadedness currently. C. difficile screen is positive. Stool for occult blood positive. Urine culture pending. He is continued on Invanz. On IV Protonix. On clear liquid diet. He has been seen by GI services and planning for EGD in a.m. Patient was evaluated today on 12/11/19, patient received a total of 4 units of packed RBCs since admission. Hemoglobin this morning is 7.2. Scheduled to undergo EGD later this afternoon by gastroenterology. Patient seems to be comfortable, in bed, O2 saturations 97% on room air. His C. difficile screening came back positive. Patient has history of ESBL E. coli in the urine, and he has chronic left leg infection/cellulitis. Hence I have recommended infectious disease consultation. Chest x-ray showed mostly coarse interstitium otherwise unremarkable. PCR for [place] virus is negative. Renal profile is slightly better today compared to the last 2 days, BUN is down to 61 creatinine is down to 2.14. Bicarb remains low at 19. The patient is relatively asymptomatic, he does have mostly dark maroon colored stools. No active vomiting or hematemesis noted. Patient was reevaluated today on 03/24, patient underwent EGD yesterday, and he was found to have duodenal ulcer requiring injection with epinephrine and Endo Clip was placed. No further episodes of bleeding, his hemoglobin today is 7. Patient did receive a total of 4 units of packed RBCs since admission. He had 1 episode of black tarry stools last night. Patient is hemodynamically stable, he is on room air at 97% saturation, he is in sinus rhythm, IV fluid is 0.9 normal saline at 100 mL per hour. Overall patient is doing well, and I plan to transfer the patient out of the ICU to a regular medical floor. Objective - Vital Signs Vital signs: Vital Signs Temp 98.1 F 12/12/19 08:00 Pulse 58 L 12/12/19 09:00 Resp 22 12/12/19 09:00 BP 133/68 12/12/19 09:00 Pulse Ox 97 12/12/19 09:00 Intake & Output 12/11/19 12/12/19 12/12/19 18:59 06:59 18:59 Intake Total 1340 1440 500 Output Total 1952 1250 425 Balance -613 190 75 Weight 136.7 kg Intake: IV 1340 1200 300 0.9 at KVO 1040 1200 300 Oral 240 200 Output: Urine 1952 1250 425 Other: Voiding Method Indwelling Catheter Indwelling Catheter Indwelling Catheter # Bowel Movements 1 - Exam GENERAL EXAM: Revealed a 69-year-old white male in no distress. HEAD: Normocephalic. EYES: Normal reaction of pupils, equal size. NOSE: Clear with pink turbinates. THROAT: No erythema or exudates. NECK: No masses, no JVD. CHEST: No chest wall deformity. LUNGS: Equal air entry with no crackles, wheeze, rhonchi or dullness. CVS: S1 and S2 normal with no audible murmur, regular rhythm. ABDOMEN: Umbilical hernia noted. No hepatosplenomegaly, hyperactive bowel sounds, no guarding or rigidity. SPINE: No scoliosis or deformity SKIN: Chronic cellulitis of lower extremities left greater than right, both are wrapped with Pastor wrappings. CENTRAL NERVOUS SYSTEM: No focal deficits, tone is normal in all 4 extremities. EXTREMITIES: There is 1-2+ peripheral edema. No clubbing, no cyanosis. - Labs CBC & Chem 7: 12/12/19 04:08 12/12/19 04:08 Labs: Abnormal Lab Results - Last 24 Hours (Table) 12/11/19 12/11/19 12/12/19 Range/Units 18:21 20:32 04:08 WBC 12.5 H (3.8-10.6) k/uL RBC 2.30 L (4.30-5.90) m/uL Hgb 7.0 L (13.0-17.5) gm/dL Hct 22.0 L (39.0-53.0) % RDW 16.2 H (11.5-15.5) % Neutrophils # 10.1 H (1.3-7.7) k/uL Potassium (3.5-5.1) mmol/L Chloride (98-107) mmol/L Carbon Dioxide (22-30) mmol/L BUN (9-20) mg/dL Creatinine (0.66-1.25) mg/dL POC Glucose (mg/dL) 118 H 178 H (75-99) mg/dL Calcium (8.4-10.2) mg/dL 12/12/19 12/12/19 12/12/19 Range/Units 04:08 07:02 07:39 WBC (3.8-10.6) k/uL RBC (4.30-5.90) m/uL Hgb (13.0-17.5) gm/dL Hct (39.0-53.0) % RDW (11.5-15.5) % Neutrophils # (1.3-7.7) k/uL Potassium 5.3 H (3.5-5.1) mmol/L Chloride 115 H (98-107) mmol/L Carbon Dioxide 20 L (22-30) mmol/L BUN 46 H (9-20) mg/dL Creatinine 2.08 H (0.66-1.25) mg/dL POC Glucose (mg/dL) 123 H 118 H (75-99) mg/dL Calcium 8.3 L (8.4-10.2) mg/dL 12/12/19 Range/Units 12:08 WBC (3.8-10.6) k/uL RBC (4.30-5.90) m/uL Hgb (13.0-17.5) gm/dL Hct (39.0-53.0) % RDW (11.5-15.5) % Neutrophils # (1.3-7.7) k/uL Potassium (3.5-5.1) mmol/L Chloride (98-107) mmol/L Carbon Dioxide (22-30) mmol/L BUN (9-20) mg/dL Creatinine (0.66-1.25) mg/dL POC Glucose (mg/dL) 149 H (75-99) mg/dL Calcium (8.4-10.2) mg/dL Assessment and Plan Assessment: Acute anemia secondary to upper GI bleeding secondary to duodenal ulcer r equiring epinephrine injection and Endo Clip placement. Recent E. coli ESBL urinary tract infection and cellulitis. C. difficile colitis. Acute on chronic renal failure. Benign essential hypertension. Dyslipidemia. Type 2 diabetes. Diabetic neuropathy Degenerative joint disease Medical debility and the patient is bedbound, supposedly secondary to severe neuropathy and degenerative joint disease. Obstructive sleep apnea syndrome. Recommendation: Continue present supportive care measures. Transfer patient out of the ICU to a regular medical floor. Continue Protonix. Continue to monitor hemoglobin daily. EGD findings were noted and reviewed Continue oral vancomycin. Will follow. When necessary Time with Patient: Less than 30
--- NOTE | 2019-12-12 14:50 | PN ---
PROGRESS NOTE DATE OF SERVICE: 12/12/2019 REASON FOR FOLLOWUP: C difficile colitis. INTERVAL HISTORY: The patient is currently afebrile. Patient is breathing comfortably. The patient is status post EGD this morning with evidence of a peptic ulcer. The patient denies any further blood in the stool. Diarrhea has slowed down. Abdominal pain has slightly improved. No chest pain, shortness of breath, no cough and feeling better. PHYSICAL EXAMINATION: Blood pressure 133/68 with a pulse of 58, temperature 98.1, he is 97% on room air. General description is an elderly male, up in the chair in no distress. RESPIRATORY SYSTEM: Unlabored breathing, clear to auscultation anteriorly. HEART: S1, S2. Regular rate and rhythm. ABDOMEN: Soft, no tenderness. No guarding, no rigidity. LABS: White count 12.5, creatinine is 2.08. DIAGNOSTIC IMPRESSION AND PLAN: 1. Patient admitted to the hospital with GI bleed and evidence of diarrhea with recent antibiotic exposure and stool for C difficile is positive. Give the patient oral vancomycin and was to increase his probiotic intake. 2. Patient with recent ESBL E coli urinary tract infection has been adequately treated. MMODL / IJN: [id number] /
[2019-12-12 16:52] LABS: Glucose,Whole Blood 134 mg/dL (75-99)
--- NOTE | 2019-12-12 17:17 | PN ---
PROGRESS NOTE DATE OF DICTATION: 12/12/2019 This patient is a 69-year-old pleasant white male admitted to the hospital with acute upper GI bleed. He underwent an upper endoscopy yesterday that revealed a 2 cm deep duodenal bulbar ulcer with active oozing, status post injection with epinephrine and Endoclip placement. Patient is doing better. He denies any further episodes of bleeding. He received a total of 4 units of PRBC transfusion since admission to the hospital. He had no bowel movements for the last 24 hours. No nausea or vomiting. PHYSICAL EXAMINATION: He appears comfortable. No apparent distress. Vital signs are stable. Blood pressure 133/68, pulse rate 58, temperature 98.1. HEENT examination unremarkable. Conjunctivae pink. Sclerae anicteric. Oral cavity no lesions. NECK: No JVD or lymph node enlargement. CHEST: Clear to auscultation. HEART: Regular rate and rhythm. ABDOMEN: Soft. Slightly distended. Bowel sounds are positive. No organomegaly. EXTREMITIES: No pedal edema. SKIN: No rashes. NEUROLOGIC: Alert and oriented x3. No focal deficits. LABS: WBC 12.5, hemoglobin 7, platelets 328. Potassium is 5.3, BUN 46, creatinine 2.08. IMPRESSION: 1. Acute upper gastrointestinal bleed, status post esophagogastroduodenoscopy yesterday that revealed a 2 cm deep duodenal bulbar ulcer, status post injection epinephrine with clip placement, status post 4 units of PRBC transfusion. No bleeding for the last 24 hours. Hemoglobin 7 g/dL. 2. Chronic kidney disease. 3. Left lower extremity cellulitis. RECOMMENDATIONS: 1. Continue Protonix 40 mg q.12 hours. 2. CBC every 12 hours and transfuse if the hemoglobin is less than 7. 3. Keep him on a clear liquid diet today and advance to a soft diet tomorrow if his hemoglobin is stable. 4. Will follow with you closely. Thank you for this consultation. MMODL / IJN: [id number] /
--- NOTE | 2019-12-12 21:33 | P.PN ---
Progress Note - Text Progress Note Date: 12/12/19 Chief Complaint: Anemia History of presenting complaint: Patient is a 69-year-old male with a past medical history of chronic venous stasis ulcers with recurrent cellulitis of the lower extremities, sleep apnea, hypertension, diabetes mellitus type 2 and chronic kidney disease stage IV . Recently the hospital from November 27 through December 03. Admitted with sepsis from UTI and cystitis. Treated with IV cefepime.-.urine culture positive for E. coli ESBL. Patient responded well to IV ertapenem. Patient is discharged to get 10 more days of IV antibiotics. Patient was discharged to [facility]. He was now transferred back with hemoglobin of 6. Patient not able to ambulate was only being transferred to a chair. Patient admission was noted to be having bloody stools. Did complain of some epigastric discomfort. No nausea vomiting. Patient appetite has not been good. Denies any fever and chills. Hemoglobin in the ER initially was 6.1 which intraoperative 5.3 this morning. Patient is given a unit hemoglobin last night. And 2 more units were ordered by me this morning. He also decided to move the patient to the ICU with consultation to executive creative director and GI. Admitted with acute GI bleed. Patient received a total of 4 units of blood. Also having diarrhea tested positive for C. diff.EGD found have a bleeding duodenal ulcer and antral gastritis.-Endo Clip was done Today-had some dark stool last night. Sitting upon a chair.. Tolerating clear liquids. No abdominal pain. Review of systems: Was done for constitutional, cardiovascular, GI, pulmonary. relevant finding as above Active Medications Hydrocodone Bitart/Acetaminophen ([place] 10) 1 each PO TID PRN PRN Reason: Pain Last Admin: 12/09/19 23:35 Dose: 1 each Documented by: Allopurinol (Zyloprim) 100 mg PO DAILY [facility] Last Admin: 12/12/19 09:40 Dose: 100 mg Documented by: Amlodipine Besylate (Norvasc) 5 mg PO BID@00,2099 [facility] Last Admin: 12/12/19 09:40 Dose: 5 mg Documented by: Atorvastatin Calcium (Lipitor) 20 mg PO HS@2100 [facility] Last Admin: 12/11/19 20:42 Dose: 20 mg Documented by: Calcitriol (Rocaltrol) 0.25 mcg PO DAILY@09 [facility] Last Admin: 12/12/19 09:40 Dose: 0.25 mcg Documented by: Vázquez Syrup (Vázquez Syrup) 5 ml PO QID [facility] Last Admin: 12/12/19 12:23 Dose: Not Given Documented by: Cholecalciferol (Vitamin D3 (25 Mcg = 1000 Iu)) 5,000 unit PO HS@2100 [facility] Last Admin: 12/11/19 20:42 Dose: 5,000 unit Documented by: Gabapentin (Neurontin) 100 mg PO TID@0600,1400,2200 [facility] Last Admin: 12/12/19 17:33 Dose: 100 mg Documented by: Hydralazine HCl (Apresoline) 50 mg PO TID@0600,1400,2200 [facility] Last Admin: 12/12/19 17:33 Dose: 50 mg Documented by: Sodium Chloride (Saline 0.9%) 1,000 mls @ 100 mls/hr IV .Q10H [facility] Last Admin: 12/12/19 12:23 Dose: 100 mls/hr Documented by: Insulin Aspart (Novolog) 0 unit SQ ACHS [facility]; Protocol Last Admin: 12/12/19 17:33 Dose: 1 unit Documented by: Insulin Detemir (Levemir) 30 unit SQ DAILY@0700 [facility] Last Admin: 12/12/19 07:38 Dose: 30 unit Documented by: Magnesium Oxide (Mag-Ox) 400 mg PO HS@2100 [facility] Last Admin: 12/11/19 20:42 Dose: 400 mg Documented by: Ondansetron HCl (Zofran) 4 mg IVP Q6HR PRN PRN Reason: Nausea And Vomiting Last Admin: 12/11/19 15:55 Dose: 4 mg Documented by: Pantoprazole Sodium (Protonix) 40 mg IV BID [facility] Last Admin: 12/12/19 09:40 Dose: 40 mg Documented by: Vancomycin HCl (Vancomycin Oral Solution) 250 mg PO Q6HR [facility] Last Admin: 12/12/19 12:22 Dose: 250 mg Documented by: On examination: VITAL SIGNS: 98.1, 77, 19, 154/71, 97% on room air GENERAL APPEARANCE: Sitting over a chair, awake HEENT: Normal external appearance of nose and ear. Oral cavity normal EYES: Pupils equal. Conjunctiva pale NECK: JVD not raised. Mass not palpable. RESPIRATORY: Respiratory effort normal. Lungs clear to auscultation. CARDIOVASCULAR: First and second sounds normal. No edema. ABDOMEN: Soft. Liver and spleen not palpable. No tenderness. No mass palpable. PSYCHIATRY: Alert and oriented x3. Mood and affect normal. DERMATOLOGICAL: Chronic Left lower extremity wound-with dressing with Pastor wrap INVESTIGATIONS, reviewed in the clinical context: White count 12.5 hemoglobin 7 potassium 5.3 bun 46 creatinine 2.08 Previous testing On December 03: Hemoglobin 7.4 bun 63 creatinine 1.87 Assessment: -Acute GI bleed, persistent POA -Bleeding 2 cm duodenal ulcer and antral gastritis status post epinephrine injection and Endo Clip placement-on December 10 -Acute severe blood loss anemia symptomatic requiring blood transfusion, POA. 4 units of blood were given. -Acute UTI with cystitis, from E. coli/ESBL causing's sepsis, on recent admission patient finished IV ertapenem on December 13 -chronicleft lower extremity cellulitis-improved -Hypertension with chronic kidney disease -Morbid obesity BMI 43.0 -COPD -Diabetes mellitus type 2 -Essential hypertension -Primary osteoarthritis -Chronic kidney disease stage 3 -Diabetic peripheral neuropathy -Chronic lower extremity wound for which [facility] -Obstructive sleep apnea uses CPAP -Chronic umbilical hernia -Mild cognitive impairment -Chronic gait dysfunction sometimes uses a walker otherwise mainly a chair Disposition: -Patient's hemoglobin is borderline at 7. Had some more dark stool last night. Has 1 transfuse a unit of blood. Repeat CBC in the morning. Discussed with the patient. Diet being advanced per GI.
[2019-12-12 21:54] LABS: Glucose,Whole Blood 121 mg/dL (75-99)
[2019-12-12] MEDS: ATORVASTATIN 20 MG TAB PO SCH (21:55)
[2019-12-12] MEDS: MAGNESIUM OXIDE 400 MG TAB PO SCH (21:55)
[2019-12-12] MEDS: HYDROcodone/APAP 10-325MG 1 EACH TAB PO PRN (21:56)
[2019-12-12] MEDS: CHOLECALCIFEROL 1,000 UNIT TAB PO SCH (22:01)
[2019-12-12 22:45] LABS: Anisocytosis Slight; Basophils # (A) 0.1 k/uL (0-0.2); Basophils % (A) 1 %; Eosinophils # (A) 0.3 k/uL (0-0.7); Eosinophils % (A) 3 %; HCT 26.3 % (39.0-53.0); HGB 8.1 gm/dL (13.0-17.5); Hypochromasia Slight; Lymphocytes # (A) 1.4 k/uL (1.0-4.8); Lymphocytes % (A) 13 %; MCH 30.1 pg (25.0-35.0); MCHC 30.8 g/dL (31.0-37.0); MCV 97.8 fL (80.0-100.0); Macrocytosis Slight; Mean Platelet Volume 7.4; Monocytes # (A) 0.6 k/uL (0-1.0); Monocytes % (A) 6 %; Neutrophils # (A) 8.2 k/uL (1.3-7.7); Neutrophils % (A) 77 %; Platelet Count 429 k/uL (150-450); RBC 2.69 m/uL (4.30-5.90); RDW 16.2 % (11.5-15.5); WBC 10.7 k/uL (3.8-10.6)
[2019-12-13] MEDS: SODIUM CHLORIDE 0.9% 1,000 ML IV SCH ×3 (01:30→22:09)
[2019-12-13 05:25] LABS: Anisocytosis Slight; Basophils % (A) 1 %; Eosinophils # (A) 0.3 k/uL (0-0.7); Eosinophils % (A) 3 %; HCT 21.4 % (39.0-53.0); Hypochromasia Slight; Lymphocytes # (A) 1.2 k/uL (1.0-4.8); Lymphocytes % (A) 15 %; MCHC 31.3 g/dL (31.0-37.0); MCV 95.9 fL (80.0-100.0); Mean Platelet Volume 7.8; Monocytes # (A) 0.6 k/uL (0-1.0); Monocytes % (A) 8 %; Neutrophils # (A) 5.6 k/uL (1.3-7.7); Neutrophils % (A) 72 %; Platelet Count 328 k/uL (150-450); RBC 2.23 m/uL (4.30-5.90); RDW 16.1 % (11.5-15.5); WBC 7.8 k/uL (3.8-10.6)
[2019-12-13 05:33] LABS: HGB 6.7 gm/dL (13.0-17.5)
[2019-12-13 05:45] LABS: Calcium 8.2 mg/dL (8.4-10.2); Potassium 4.9 mmol/L (3.5-5.1)
[2019-12-13 06:57] LABS: Glucose,Whole Blood 85 mg/dL (75-99)
[2019-12-13] MEDS: GABAPENTIN 100 MG CAP PO SCH ×3 (07:00→21:11)
[2019-12-13] MEDS: hydrALAZINE HCL 50 MG TAB PO SCH ×3 (07:00→21:11)
[2019-12-13] MEDS: VANCOMYCIN ORAL SOLUTION 250 MG/5 ML BOTTLE PO SCH ×3 (07:00→18:13)
[2019-12-13] MEDS: INSULIN DETEMIR (LEVEMIR) 100 UNIT/ML SYR SQ SCH (07:01)
[2019-12-13] MEDS: CHERRY FLAVOR 60 ML BOTTLE PO SCH ×3 (07:01→18:12)
[2019-12-13] MEDS: INSULIN ASPART (NovoLOG) 100 UNIT/ML VIAL SQ SCH ×4 (07:02→20:23)
[2019-12-13] MEDS: CALCITRIOL 0.25 MCG CAP PO SCH (08:56)
[2019-12-13] MEDS: amLODIPine 5 MG TAB PO SCH ×2 (08:56→21:11)
[2019-12-13] MEDS: PANTOPRAZOLE 40 MG/10 ML VIAL IV SCH ×2 (08:56→21:11)
[2019-12-13] MEDS: ALLOPURINOL 100 MG TAB PO SCH (08:56)
[2019-12-13 11:06] LABS: Glucose,Whole Blood 89 mg/dL (75-99)
[2019-12-13 13:32] LABS: Anisocytosis Slight; HCT 24.5 % (39.0-53.0); HGB 7.8 gm/dL (13.0-17.5); MCH 30.1 pg (25.0-35.0); Mean Platelet Volume 8.2; Platelet Count 352 k/uL (150-450); RDW 17.6 % (11.5-15.5); WBC 8.1 k/uL (3.8-10.6)
--- NOTE | 2019-12-13 13:56 | PN ---
PROGRESS NOTE DATE OF SERVICE: 12/13/2019 REASON FOR FOLLOWUP: C difficile colitis. INTERVAL HISTORY: The patient is currently afebrile. The patient is breathing comfortably. Not feeling as great today and slightly weak and tired. Did have some dark tarry stool. No chest pain, shortness of breath or cough. No abdominal pain, no vomiting. PHYSICAL EXAMINATION: Blood pressure 109/66, pulse of 73, temperature 98, he is 97% on 2 L nasal cannula. General description is an elderly male, up in the chair in no distress. RESPIRATORY SYSTEM: Unlabored breathing, clear to auscultation anteriorly. HEART: S1, S2. Regular rate and rhythm. ABDOMEN: Soft, no tenderness. LABS: Hemoglobin 6.7, normalized to 7.8 with creatinine 2.04. DIAGNOSTIC IMPRESSION AND PLAN: 1. Patient with acute C difficile colitis for which the patient is currently clinically responding to the oral vancomycin to continue on Rocephin for about 2-3 days. 2. UTI, adequately treated. No need for further antibiotic at this time. MMODL / IJN: [id number] /
--- NOTE | 2019-12-13 14:04 | P.PN ---
Subjective Progress Note Date: 12/13/19 Principal diagnosis: Acute GI bleeding and acute blood loss anemia This is a pleasant 69-year-old gentleman who follows with Dr. Flowers as his primary care provider. He has a history of diabetes mellitus, peripheral neuropathy with chronic lower extremity venous ulceration and previous sepsis and cellulitis of the left leg. He has had ESBL urinary tract infection, hyperlipidemia, hypertension, obstructive sleep apnea, chronic kidney disease, early dementia. He was discharged from here on 12/04/2019 to [facility] after being treated for an acute UTI with cystitis from ESBL E. coli and acute on chronic lower extremity cellulitis. He was being treated with IV I nvanz via midline of the left upper extremity. He came in for follow-up blood work yesterday and was found to have a hemoglobin of 6.1. He received 1 unit of packed red blood cells. He was admitted to the selective care unit and earlier this morning he had developed black tarry stool with blood clots and ongoing dizziness and lightheadedness. His hemoglobin was 5.3. He was transferred to the intensive care unit where consulted for the same. He is seen resting fairly comfortably in bed. He is awake and alert. He has remained hemodynamically stable. He is receiving the first of 2 units of packed red blood cells ordered for today. No shortness of breath. He is on room air maintaining good O2 saturations in the 90s. No chest pain. No dizziness or lightheadedness currently. C. difficile screen is positive. Stool for occult blood positive. Urine culture pending. He is continued on Invanz. On IV Protonix. On clear liquid diet. He has been seen by GI services and planning for EGD in a.m. Patient was evaluated today on 12/11/19, patient received a total of 4 units of packed RBCs since admission. Hemoglobin this morning is 7.2. Scheduled to undergo EGD later this afternoon by gastroenterology. Patient seems to be comfortable, in bed, O2 saturations 97% on room air. His C. difficile screening came back positive. Patient has history of ESBL E. coli in the urine, and he has chronic left leg infection/cellulitis. Hence I have recommended infectious disease consultation. Chest x-ray showed mostly coarse interstitium otherwise unremarkable. PCR for [place] virus is negative. Renal profile is slightly better today compared to the last 2 days, BUN is down to 61 creatinine is down to 2.14. Bicarb remains low at 19. The patient is relatively asymptomatic, he does have mostly dark maroon colored stools. No active vomiting or hematemesis noted. Patient was reevaluated today on 03/24, patient underwent EGD yesterday, and he was found to have duodenal ulcer requiring injection with epinephrine and Endo Clip was placed. No further episodes of bleeding, his hemoglobin today is 7. Patient did receive a total of 4 units of packed RBCs since admission. He had 1 episode of black tarry stools last night. Patient is hemodynamically stable, he is on room air at 97% saturation, he is in sinus rhythm, IV fluid is 0.9 normal saline at 100 mL per hour. Overall patient is doing well, and I plan to transfer the patient out of the ICU to a regular medical floor. The patient was seen today 12/13/2019 in follow-up in the intensive care unit. He is currently resting comfortably in bed. Awake and alert in no acute distress. He continues to maintain good O2 saturations in the 90s on room air. He did have a noted drop in hemoglobin to 6.7 earlier this morning and received a fifth unit of packed red blood cells. Follow-up hemoglobin this afternoon 7.8. He's had one dark tarry stool no further bleeding noted. White count 8.1. Sodium 136. Potassium 4.9. Creatinine 2.04. He remains on IV Protonix 40 mg every 12 hours. 0.9 normal saline at 100 ML's per hour. Oral vancomycin for C. difficile colitis. Pathology from EGD revealed chronic gastritis. No H. pylori. No malignancy Objective - Vital Signs Vital signs: Vital Signs Temp 98.0 F 12/13/19 12:17 Pulse 76 12/13/19 12:17 Resp 16 12/13/19 12:17 BP 109/66 12/13/19 12:17 Pulse Ox 97 12/13/19 12:17 Intake & Output 12/12/19 12/13/19 12/13/19 18:59 06:59 18:59 Intake Total 1300 1600 510 Output Total 1025 2040 325 Balance 275 -440 185 Weight 135.2 kg 135.2 kg Intake: IV 800 0.9 at KVO 800 Intake, IV Titration 1600 200 Amount Sodium Chloride 0.9% 1, 1600 200 000 ml @ 100 mls/hr IV . Q10H [facility] Rx#:[id number] Oral 500 Blood Product 310 Rc Pheresis As-3 Unit 310 [id number] Output: Urine 1025 2040 325 Other: Voiding Method Indwelling Catheter Indwelling Catheter Indwelling Catheter - Exam GENERAL EXAM: Alert, pleasant 69-year-old gentleman, on room air, comfortable in no apparent distress. HEAD: Normocephalic. EYES: Normal reaction of pupils, equal size. NOSE: Clear with pink turbinates. THROAT: No erythema or exudates. NECK: No masses, no JVD. CHEST: No chest wall deformity. LUNGS: Equal air entry with no crackles, wheeze, rhonchi or dullness. CVS: S1 and S2 normal with no audible murmur, regular rhythm. ABDOMEN: Large umbilical hernia, no hepatosplenomegaly, normal bowel sounds, no guarding or rigidity. SPINE: No scoliosis or deformity SKIN: No rashes CENTRAL NERVOUS SYSTEM: No focal deficits, tone is normal in all 4 extremities. EXTREMITIES: Changes of chronic venous stasis of the bilateral lower extremities. There is 1-2+ peripheral edema. No clubbing, no cyanosis. Peripheral pulses are intact. - Labs CBC & Chem 7: 12/13/19 13:17 12/13/19 05:04 Labs: Abnormal Lab Results - Last 24 Hours (Table) 12/12/19 12/12/19 12/12/19 Range/Units 16:51 21:52 22:12 WBC (3.8-10.6) k/uL RBC (4.30-5.90) m/uL Hgb (13.0-17.5) gm/dL Hct (39.0-53.0) % MCHC (31.0-37.0) g/dL RDW (11.5-15.5) % Neutrophils # (1.3-7.7) k/uL Sodium (137-145) mmol/L Chloride (98-107) mmol/L Carbon Dioxide (22-30) mmol/L BUN (9-20) mg/dL Creatinine (0.66-1.25) mg/dL POC Glucose (mg/dL) 134 H 121 H (75-99) mg/dL Calcium (8.4-10.2) mg/dL Crossmatch See Detail 12/12/19 12/13/19 12/13/19 Range/Units 22:17 05:04 05:04 WBC 10.7 H (3.8-10.6) k/uL RBC 2.69 L 2.23 L (4.30-5.90) m/uL Hgb 8.1 L 6.7 L* (13.0-17.5) gm/dL Hct 26.3 L 21.4 L (39.0-53.0) % MCHC 30.8 L (31.0-37.0) g/dL RDW 16.2 H 16.1 H (11.5-15.5) % Neutrophils # 8.2 H (1.3-7.7) k/uL Sodium 136 L (137-145) mmol/L Chloride 112 H (98-107) mmol/L Carbon Dioxide 20 L (22-30) mmol/L BUN 38 H (9-20) mg/dL Creatinine 2.04 H (0.66-1.25) mg/dL POC Glucose (mg/dL) (75-99) mg/dL Calcium 8.2 L (8.4-10.2) mg/dL Crossmatch 12/13/19 Range/Units 13:17 WBC (3.8-10.6) k/uL RBC 2.60 L (4.30-5.90) m/uL Hgb 7.8 L (13.0-17.5) gm/dL Hct 24.5 L (39.0-53.0) % MCHC (31.0-37.0) g/dL RDW 17.6 H (11.5-15.5) % Neutrophils # (1.3-7.7) k/uL Sodium (137-145) mmol/L Chloride (98-107) mmol/L Carbon Dioxide (22-30) mmol/L BUN (9-20) mg/dL Creatinine (0.66-1.25) mg/dL POC Glucose (mg/dL) (75-99) mg/dL Calcium (8.4-10.2) mg/dL Crossmatch Assessment and Plan Assessment: 1 Acute anemia secondary to upper gastrointestinal bleeding. EGD on 12/11/2019 revealed a 2 cm deep duodenal bulbar ulcer with oozing status post injection of epinephrine followed by Endo Clip placement with good hemostasis. Antral gastritis. Today's morning hemoglobin 6.7. Received his fifth unit of packed red blood cells this admission and current hemoglobin 7.8. 2 Recent admission for E. coli ESBL UTI and cellulitis of the lower extremities receiving IV Invanz in the outpatient setting 3 Acute on chronic renal failure 4 C. difficile colitis 5 History of hypertension 6 Hyperlipidemia 7 Diabetes mellitus, type II 8 Diabetic neuropathy 9 Chronic umbilical hernia 10 Obesity 11 Obstructive sleep apnea utilizing CPAP 12 Early dementia 13 Poor overall functional performance based on the above-mentioned multiple comorbidities Plan: The patient was seen and evaluated by Dr. Griffith Required a fifth unit of packed red blood cells today for hemoglobin 6.7, currently 7.8 Continue to monitor hemoglobin Continue Protonix We'll continue to follow and make further recommendations based on his clinical status I, the cosigning physician, performed a history & physical examination of the patient. Lungs sounds are clear. Maintaining good O2 saturations in the 90s on room air. I discussed the assessment and plan of care with my nurse practitioner, Chrissy Mera. I attest to the above note as dictated by her.
[2019-12-13 16:52] LABS: Glucose,Whole Blood 87 mg/dL (75-99)
--- NOTE | 2019-12-13 19:27 | P.PN ---
Progress Note - Text Progress Note Date: 12/13/19 Chief Complaint: Anemia History of presenting complaint: Patient is a 69-year-old male with a past medical history of chronic venous stasis ulcers with recurrent cellulitis of the lower extremities, sleep apnea, hypertension, diabetes mellitus type 2 and chronic kidney disease stage IV . Recently the hospital from November 27 through December 03. Admitted with sepsis from UTI and cystitis. Treated with IV cefepime.-.urine culture positive for E. coli ESBL. Patient responded well to IV ertapenem. Patient is discharged to get 10 more days of IV antibiotics. Patient was discharged to [facility]. He was now transferred back with hemoglobin of 6. Patient not able to ambulate was only being transferred to a chair. Patient admission was noted to be having bloody stools. Did complain of some epigastric discomfort. No nausea vomiting. Patient appetite has not been good. Denies any fever and chills. Hemoglobin in the ER initially was 6.1 which intraoperative 5.3 this morning. Patient is given a unit hemoglobin last night. And 2 more units were ordered by me this morning. He also decided to move the patient to the ICU with consultation to science consultant and GI. Admitted with acute GI bleed. Patient received a total of 4 units of blood. Also having diarrhea tested positive for C. diff. started on oral vancomycin. EGD found have a bleeding duodenal ulcer and antral gastritis.-Endo Clip was done Today-had some more about starry stool. Hemoglobin was 6.7 this morning. Unit of blood ordered. Patient will clear liquid diet. Up in a chair. Review of systems: Was done for constitutional, cardiovascular, GI, pulmonary. relevant finding as above Active Medications Hydrocodone Bitart/Acetaminophen ([place] 10) 1 each PO TID PRN PRN Reason: Pain Last Admin: 12/12/19 21:56 Dose: 1 each Documented by: Allopurinol (Zyloprim) 100 mg PO DAILY [facility] Last Admin: 12/13/19 08:56 Dose: 100 mg Documented by: Amlodipine Besylate (Norvasc) 5 mg PO BID@0900,2100 [facility] Last Admin: 12/13/19 08:56 Dose: 5 mg Documented by: Atorvastatin Calcium (Lipitor) 20 mg PO HS@2100 [facility] Last Admin: 12/12/19 21:55 Dose: 20 mg Documented by: Calcitriol (Rocaltrol) 0.25 mcg PO DAILY@0900 [facility] Last Admin: 12/13/19 08:56 Dose: 0.25 mcg Documented by: Vázquez Syrup (Vázquez Syrup) 5 ml PO QID [facility] Last Admin: 12/13/19 18:12 Dose: 5 ml Documented by: Cholecalciferol (Vitamin D3 (25 Mcg = 1000 Iu)) 5,000 unit PO HS@2100 [facility] Last Admin: 12/12/19 22:01 Dose: 5,000 unit Documented by: Gabapentin (Neurontin) 100 mg PO TID@0600,1400,2200 [facility] Last Admin: 12/13/19 14:59 Dose: 100 mg Documented by: Hydralazine HCl (Apresoline) 50 mg PO TID@0600,1400,2200 [facility] Last Admin: 12/13/19 14:59 Dose: 50 mg Documented by: Sodium Chloride (Saline 0.9%) 1,000 mls @ 100 mls/hr IV .Q10H [facility] Last Admin: 12/13/19 08:56 Dose: 100 mls/hr Documented by: Insulin Aspart (Novolog) 0 unit SQ ACHS [facility]; Protocol Last Admin: 12/13/19 16:52 Dose: Not Given Documented by: Insulin Detemir (Levemir) 30 unit SQ DAILY@0700 [facility] Last Admin: 12/13/19 07:01 Dose: 30 unit Documented by: Magnesium Oxide (Mag-Ox) 400 mg PO HS@2100 [facility] Last Admin: 12/12/19 21:55 Dose: 400 mg Documented by: Ondansetron HCl (Zofran) 4 mg IVP Q6HR PRN PRN Reason: Nausea And Vomiting Last Admin: 12/11/19 15:55 Dose: 4 mg Documented by: Pantoprazole Sodium (Protonix) 40 mg IV BID [facility] Last Admin: 12/13/19 08:56 Dose: 40 mg Documented by: Vancomycin HCl (Vancomycin Oral Solution) 250 mg PO Q6HR [facility] Last Admin: 12/13/19 18:13 Dose: 250 mg Documented by: On examination: VITAL SIGNS: 98, 76, 16, 109/66, 97% on room air GENERAL APPEARANCE: Sitting over a chair, comfortable HEENT: Normal external appearance of nose and ear. Oral cavity normal EYES: Pupils equal. Conjunctiva pale NECK: JVD not raised. Mass not palpable. RESPIRATORY: Respiratory effort normal. Lungs clear to auscultation. CARDIOVASCULAR: First and second sounds normal. No edema. ABDOMEN: Soft. Liver and spleen not palpable. No tenderness. No mass palpable. PSYCHIATRY: Alert and oriented x3. Mood and affect normal. DERMATOLOGICAL: Chronic Left lower extremity wound-with dressing with Pastor wrap INVESTIGATIONS, reviewed in the clinical context: White count 7.8 hemoglobin 6.7 potassium 4.9 bun 38 creatinine 2.04 Previous testing White count 12.5 hemoglobin 7 potassium 5.3 bun 46 creatinine 2.08 On December 03: Hemoglobin 7.4 bun 63 creatinine 1.87 Assessment: -Acute GI bleed, persistent POA -Bleeding 2 cm duodenal ulcer and antral gastritis status post epinephrine injection and Endo Clip placement-on December 10 -Acute severe blood loss anemia symptomatic requiring blood transfusion, POA. Slow to respond. Fifth unit of blood ordered today.. -Acute UTI with cystitis, from E. coli/ESBL causing's sepsis, on recent admission patient finished IV ertapenem on December 13 -chronicleft lower extremity cellulitis-improved -Hypertension with chronic kidney disease -Morbid obesity BMI 43.0 -COPD -Diabetes mellitus type 2 -Essential hypertension -Primary osteoarthritis -Chronic kidney disease stage 3 -Diabetic peripheral neuropathy -Chronic lower extremity wound for which [facility] -Obstructive sleep apnea uses CPAP -Chronic umbilical hernia -Mild cognitive impairment -Chronic gait dysfunction sometimes uses a walker otherwise mainly a chair Disposition: -Patient is receiving the fifth unit of blood today. If patient continues to bleed may need a repeat endoscopy. Follow H&H closely. Follow with GI. Discussed with the patient.
[2019-12-13 19:32] LABS: Anisocytosis Slight; HCT 24.9 % (39.0-53.0); HGB 7.9 gm/dL (13.0-17.5); Hypochromasia Slight; MCH 30.1 pg (25.0-35.0); MCV 94.1 fL (80.0-100.0); Mean Platelet Volume 7.2; Platelet Count 372 k/uL (150-450); RBC 2.64 m/uL (4.30-5.90); RDW 17.7 % (11.5-15.5); WBC 8.8 k/uL (3.8-10.6)
[2019-12-13 20:19] LABS: Glucose,Whole Blood 131 mg/dL (75-99)
[2019-12-13] MEDS: CHOLECALCIFEROL 1,000 UNIT TAB PO SCH (21:11)
[2019-12-13] MEDS: ATORVASTATIN 20 MG TAB PO SCH (21:11)
[2019-12-13] MEDS: MAGNESIUM OXIDE 400 MG TAB PO SCH (21:11)
--- NOTE | 2019-12-14 03:45 | PN ---
PROGRESS NOTE DATE OF DICTATION: 12/13/2019 Patient is a 69-year-old pleasant white male admitted to intensive care unit with acute upper GI bleed. He had an upper endoscopy done 2 days ago that showed a deep duodenal bulbar ulcer measuring 2 cm with active oozing and Endoclip was placed. The patient did well yesterday however early this morning he had an episode of large black tarry stools and he dropped his hemoglobin to 6.8 g/dL and subsequently received another unit of blood transfusion. Repeat hemoglobin is 7.9 g/dL. He did not have any bowel movements all day today. He is feeling well. He denies any complaints. PHYSICAL EXAMINATION: Blood pressure 150/73, pulse rate , temperature 98. HEENT EXAMINATION: Unremarkable. Conjunctivae pink. Sclerae anicteric. Oral cavity no lesions. NECK; No JVD or lymph node enlargement. CHEST: Clear to auscultation. HEART: Regular rate and rhythm. ABDOMEN: Soft, nontender, nondistended. Bowel sounds are positive. No organomegaly. EXTREMITIES: No pedal edema. SKIN: No rashes. NEUROLOGIC: Alert and oriented x3. No focal deficits. BUN 38, creatinine 2.04. Hemoglobin 6.7 this morning after one unit it is 7.9 g/dL. IMPRESSION: 1. Acute upper gastrointestinal bleed secondary to duodenal ulcer, status post EGD 2 days ago as mentioned above. He had one episode of black tarry stools last night and none this morning. He dropped his hemoglobin to 6.7 and received another unit of blood transfusion. So far he received total of 5 units of PRBC transfusion during this hospitalization over the last five days. 2. Chronic kidney disease. 3. Left lower extremity cellulitis. RECOMMENDATIONS: Continue Protonix 40 mg q.12 hours. Continue to remain on a clear liquid diet. Monitor CBC every 6 hours today. We will follow with you closely. Thank you for this consultation. MMODL / IJN: [id number] /
[2019-12-14 04:35] LABS: Anisocytosis Slight; HCT 23.2 % (39.0-53.0); HGB 7.5 gm/dL (13.0-17.5); Hypochromasia Slight; MCH 30.3 pg (25.0-35.0); MCHC 32.2 g/dL (31.0-37.0); MCV 94.1 fL (80.0-100.0); Mean Platelet Volume 7.6; Platelet Count 372 k/uL (150-450); RBC 2.47 m/uL (4.30-5.90); RDW 17.1 % (11.5-15.5); WBC 8.2 k/uL (3.8-10.6)
[2019-12-14] MEDS: VANCOMYCIN ORAL SOLUTION 250 MG/5 ML BOTTLE PO SCH ×5 (05:08→23:46)
[2019-12-14] MEDS: CHERRY FLAVOR 60 ML BOTTLE PO SCH ×5 (05:08→23:15)
[2019-12-14 05:50] LABS: Calcium 8.7 mg/dL (8.4-10.2); Potassium 5.3 mmol/L (3.5-5.1)
[2019-12-14] MEDS: hydrALAZINE HCL 50 MG TAB PO SCH ×3 (06:39→21:39)
[2019-12-14] MEDS: GABAPENTIN 100 MG CAP PO SCH ×3 (06:39→21:40)
[2019-12-14 06:44] LABS: Glucose,Whole Blood 116 mg/dL (75-99)
[2019-12-14] MEDS: INSULIN DETEMIR (LEVEMIR) 100 UNIT/ML SYR SQ SCH (07:06)
[2019-12-14] MEDS: INSULIN ASPART (NovoLOG) 100 UNIT/ML VIAL SQ SCH ×4 (07:07→20:24)
[2019-12-14 07:43] LABS: Anisocytosis Slight; HCT 25.5 % (39.0-53.0); HGB 8.4 gm/dL (13.0-17.5); Hypochromasia Slight; MCH 31.2 pg (25.0-35.0); MCHC 32.8 g/dL (31.0-37.0); MCV 95.1 fL (80.0-100.0); Mean Platelet Volume 7.4; Platelet Count 404 k/uL (150-450); RBC 2.68 m/uL (4.30-5.90); RDW 17.2 % (11.5-15.5); WBC 10.6 k/uL (3.8-10.6)
[2019-12-14] MEDS: PANTOPRAZOLE 40 MG/10 ML VIAL IV SCH ×2 (09:09→20:24)
[2019-12-14] MEDS: CALCITRIOL 0.25 MCG CAP PO SCH (09:12)
[2019-12-14] MEDS: amLODIPine 5 MG TAB PO SCH ×2 (09:13→20:24)
[2019-12-14] MEDS: ALLOPURINOL 100 MG TAB PO SCH (09:13)
[2019-12-14] MEDS: SODIUM CHLORIDE 0.9% 1,000 ML IV SCH ×2 (09:14→18:49)
[2019-12-14 11:55] LABS: Glucose,Whole Blood 130 mg/dL (75-99)
--- NOTE | 2019-12-14 13:04 | P.PN ---
Subjective Progress Note Date: 12/14/19 Principal diagnosis: Acute GI bleeding and acute blood loss anemia. This is a pleasant 69-year-old gentleman who follows with Dr. Flowers as his primary care provider. He has a history of diabetes mellitus, peripheral neuropathy with chronic lower extremity venous ulceration and previous sepsis and cellulitis of the left leg. He has had ESBL urinary tract infection, hyperlipidemia, hypertension, obstructive sleep apnea, chronic kidney disease, early dementia. He was discharged from here on 12/04/2019 to [facility] after being treated for an acute UTI with cystitis from ESBL E. coli and acute on chronic lower extremity cellulitis. He was being treated with IV Invanz via midline of the left upper extremity. He came in for follow-up blood work yesterday and was found to have a hemoglobin of 6.1. He received 1 unit of packed red blood cells. He was admitted to the selective care unit and earlier this morning he had developed black tarry stool with blood clots and ongoing dizziness and lightheadedness. His hemoglobin was 5.3. He was transferred to the intensive care unit where consulted for the same. He is seen resting fairly comfortably in bed. He is awake and alert. He has remained hemodynamically stable. He is receiving the first of 2 units of packed red blood cells ordered for today. No shortness of breath. He is on room air maintaining good O2 saturations in the 90s. No chest pain. No dizziness or lightheadedness currently. C. difficile screen is positive. Stool for occult blood positive. Urine culture pending. He is continued on Invanz. On IV Protonix. On clear liquid diet. He has been seen by GI services and planning for EGD in a.m. Patient was evaluated today on 12/11/19, patient received a total of 4 units of packed RBCs since admission. Hemoglobin this morning is 7.2. Scheduled to undergo EGD later this afternoon by gastroenterology. Patient seems to be comfortable, in bed, O2 saturations 97% on room air. His C. difficile screening came back positive. Patient has history of ESBL E. coli in the urine, and he has chronic left leg infection/cellulitis. Hence I have recommended infectious disease consultation. Chest x-ray showed mostly coarse interstitium otherwise unremarkable. PCR for winston virus is negative. Renal profile is slightly better today compared to the last 2 days, BUN is down to 61 creatinine is down to 2.14. Bicarb remains low at 19. The patient is relatively asymptomatic, he does have mostly dark maroon colored stools. No active vomiting or hematemesis noted. Patient was reevaluated today on 12/12/19, patient underwent EGD yesterday, and he was found to have duodenal ulcer requiring injection with epinephrine and Endo Clip was placed. No further episodes of bleeding, his hemoglobin today is 7. Patient did receive a total of 4 units of packed RBCs since admission. He had 1 episode of black tarry stools last night. Patient is hemodynamically stable, he is on room air at 97% saturation, he is in sinus rhythm, IV fluid is 0.9 normal saline at 100 mL per hour. Overall patient is doing well, and I plan to transfer the patient out of the ICU to a regular medical floor. The patient was seen today 12/13/2019 in follow-up in the intensive care unit. He is currently resting comfortably in bed. Awake and alert in no acute distress. He continues to maintain good O2 saturations in the 90s on room air. He did have a noted drop in hemoglobin to 6.7 earlier this morning and received a fifth unit of packed red blood cells. Follow-up hemoglobin this afternoon 7 .8. He's had one dark tarry stool no further bleeding noted. White count 8.1. Sodium 136. Potassium 4.9. Creatinine 2.04. He remains on IV Protonix 40 mg every 12 hours. 0.9 normal saline at 100 ML's per hour. Oral vancomycin for C. difficile colitis. Pathology from EGD revealed chronic gastritis. No H. pylori. No malignancy Was reevaluated today on 12/14/2019, patient remains as overflow in the ICU, seems to be doing fairly well. No further episodes of GI bleeding. Patient is on room air with O2 saturation of 94%. His IV fluid is 0.9 at 100 mL per hour. Patient is up in the chair, continues to have diarrhea secondary to C. difficile colitis, remains on oral vancomycin and he is on clear liquid diet. Patient is hemodynamically stable, and I plan to transfer the patient out of the ICU once a bed is available on the medical surgical floor. Objective - Vital Signs Vital signs: Vital Signs Temp 98.4 F 12/14/19 09:00 Pulse 98 12/14/19 09:00 Resp 18 12/14/19 09:00 BP 160/62 12/14/19 09:00 Pulse Ox 96 12/14/19 00:00 Intake & Output 12/13/19 12/14/19 12/14/19 18:59 06:59 18:59 Intake Total 1820 600 800 Output Total 1525 1150 200 Balance 295 -550 600 Weight 135.2 kg Intake: IV 600 800 0.9 at KVO 600 800 Intake, IV Titration 1200 Amount Sodium Chloride 0.9% 1, 1200 000 ml @ 100 mls/hr IV . Q10H [facility] Rx#:[id number] Blood Product 620 Rc Pheresis As-3 Unit 310 [id number] Output: Urine 1525 1150 200 Other: Voiding Method Indwelling Catheter Indwelling Catheter Indwelling Catheter - Exam GENERAL EXAM: Revealed a 69-year-old white male in no distress. HEAD: Normocephalic. EYES: Normal reaction of pupils, equal size. NOSE: Clear with pink turbinates. THROAT: No erythema or exudates. NECK: No masses, no JVD. CHEST: No chest wall deformity. LUNGS: Equal air entry with no crackles, wheeze, rhonchi or dullness. CVS: S1 and S2 normal with no audible murmur, regular rhythm. ABDOMEN: Umbilical hernia noted. No hepatosplenomegaly, hyperactive bowel sounds, no guarding or rigidity. SPINE: No scoliosis or deformity SKIN: Chronic cellulitis of lower extremities left greater than right, both are wrapped with Pastor wrappings. CENTRAL NERVOUS SYSTEM: No focal deficits, tone is normal in all 4 extremities. EXTREMITIES: There is 1-2+ peripheral edema. No clubbing, no cyanosis. - Labs CBC & Chem 7: 12/14/19 06:34 12/14/19 05:06 Labs: Abnormal Lab Results - Last 24 Hours (Table) 12/13/19 12/13/19 12/13/19 Range/Units 13:17 19:17 20:17 RBC 2.60 L 2.64 L (4.30-5.90) m/uL Hgb 7.8 L 7.9 L (13.0-17.5) gm/dL Hct 24.5 L 24.9 L (39.0-53.0) % RDW 17.6 H 17.7 H (11.5-15.5) % Sodium (137-145) mmol/L Potassium (3.5-5.1) mmol/L Chloride (98-107) mmol/L Carbon Dioxide (22-30) mmol/L BUN (9-20) mg/dL Creatinine (0.66-1.25) mg/dL Glucose (74-99) mg/dL POC Glucose (mg/dL) 131 H (75-99) mg/dL 12/14/19 12/14/19 12/14/19 Range/Units 01:25 05:06 06:34 RBC 2.47 L 2.68 L (4.30-5.90) m/uL Hgb 7.5 L 8.4 L (13.0-17.5) gm/dL Hct 23.2 L 25.5 L (39.0-53.0) % RDW 17.1 H 17.2 H (11.5-15.5) % Sodium 136 L (137-145) mmol/L Potassium 5.3 H (3.5-5.1) mmol/L Chloride 111 H (98-107) mmol/L Carbon Dioxide 18 L (22-30) mmol/L BUN 30 H (9-20) mg/dL Creatinine 1.93 H (0.66-1.25) mg/dL Glucose 100 H (74-99) mg/dL POC Glucose (mg/dL) (75-99) mg/dL 12/14/19 12/14/19 Range/Units 06:42 11:53 RBC (4.30-5.90) m/uL Hgb (13.0-17.5) gm/dL Hct (39.0-53.0) % RDW (11.5-15.5) % Sodium (137-145) mmol/L Potassium (3.5-5.1) mmol/L Chloride (98-107) mmol/L Carbon Dioxide (22-30) mmol/L BUN (9-20) mg/dL Creatinine (0.66-1.25) mg/dL Glucose (74-99) mg/dL POC Glucose (mg/dL) 116 H 130 H (75-99) mg/dL Assessment and Plan Assessment: Acute anemia secondary to upper GI bleeding secondary to duodenal ulcer requiring epinephrine injection and Endo Clip placement. Recent E. coli ESBL urinary tract infection and cellulitis. Acute C. difficile colitis. Acute on chronic renal failure. Benign essential hypertension. Dyslipidemia. Type 2 diabetes. Diabetic neuropathy Degenerative joint disease Medical debility and the patient is bedbound, supposedly secondary to severe neuropathy and degenerative joint disease. Obstructive sleep apnea syndrome. Recommendation: Continue present supportive care measures. Continue Protonix. Continue to monitor hemoglobin daily. Continue oral vancomycin. Transfer out of the ICU to a regular medical floor once a bed is available. Will follow. When necessary Time with Patient: Less than 30
[2019-12-14 13:25] LABS: Anisocytosis Slight; HGB 8.7 gm/dL (13.0-17.5); Hypochromasia Slight; MCH 31.5 pg (25.0-35.0); MCHC 33.4 g/dL (31.0-37.0); MCV 94.5 fL (80.0-100.0); Mean Platelet Volume 7.1; Platelet Count 397 k/uL (150-450); RBC 2.76 m/uL (4.30-5.90); RDW 17.3 % (11.5-15.5)
--- NOTE | 2019-12-14 16:26 | PN ---
PROGRESS NOTE DATE OF SERVICE: 12/14/2019 REASON FOR FOLLOWUP: C difficile colitis. INTERVAL HISTORY: The patient is currently afebrile, has been breathing comfortably. Denies having any chest pain, shortness of breath or cough. No nausea or vomiting. Patient's diarrhea has improved; did have only one episode today. PHYSICAL EXAMINATION: Blood pressure 160/62 with a pulse of 79, temperature 98.4. He is 96% on room air. General description is an elderly male up in the chair in no distress. RESPIRATORY SYSTEM: Unlabored breathing. Clear to auscultation anteriorly. HEART: S1, S2. Regular rate and rhythm. ABDOMEN: Soft. No tenderness. LABS: Hemoglobin 8.7, white count of 10, creatinine 1.13. DIAGNOSTIC IMPRESSION AND PLAN: Patient admitted to hospital with a gastrointestinal bleed and diarrhea with stool for Clostridium difficile positive in this patient recently treated for extended-spectrum beta-lactamase Escherichia coli urinary tract infection with sepsis. The patient's underlying UTI has been adequate treated. Will keep the patient on vancomycin for underlying C difficile colitis and monitor his clinical course closely. MMODL / IJN: [id number] /
[2019-12-14 17:19] LABS: Glucose,Whole Blood 108 mg/dL (75-99)
--- NOTE | 2019-12-14 18:47 | PN ---
PROGRESS NOTE DATE OF DICTATION: 12/14/2019 This patient is a 69-year-old pleasant white male admitted to the hospital with acute upper GI bleed. EGD done 3 days ago showed a duodenal ulcer. He continued to have gradual drop in hemoglobin with intermittent dark-colored stools, but today he is feeling better. He received a total of 5 units of PRBC transfusion during this hospitalization. Last hemoglobin is 8.7 g/dL. He denies any abdominal pain. No nausea, vomiting. Had one dark bowel movement this morning. PHYSICAL EXAMINATION: Appears comfortable. No apparent distress. Vital signs are stable. Blood pressure 154/70, pulse rate 71, temperature 98. HEENT examination unremarkable. Conjunctivae pink. Sclerae anicteric. Oral cavity no lesions. NECK: No JVD or lymph node enlargement. CHEST: Clear to auscultation. HEART: Regular rate and rhythm. ABDOMEN: Soft. Bowel sounds are positive. No organomegaly. EXTREMITIES: No pedal edema. SKIN: No rashes. NEUROLOGIC: Alert and oriented x3. No focal deficits. LABS: WBC 10, hemoglobin 8.7, platelets normal. BUN 30, creatinine 1.93. IMPRESSION: 1. Acute gastrointestinal bleed, status post esophagogastroduodenoscopy 3 days ago that showed a bleeding duodenal ulcer, status post Endoclip placement, status post 5 units of packed RBC transfusion so far since admission. No further bleeding for the last 24 hours. Remains hemodynamically stable. 2. Acute kidney injury. 3. Anemia secondary to acute blood loss. 4. Left lower extremity cellulitis. RECOMMENDATIONS: 1. Advance to a full liquid diet. 2. Transfer to the floor. 3. Monitor CBC on a daily basis. 4. Continue Protonix 40 mg twice daily. 5. Continue antibiotics for left lower extremity cellulitis. 6. Continue vancomycin for C difficile colitis. Will follow with you closely. Thank you for this consultation. MMODL / IJN: [id number] /
[2019-12-14 19:17] LABS: Anisocytosis Slight; HCT 26.5 % (39.0-53.0); HGB 8.5 gm/dL (13.0-17.5); Hypochromasia Slight; MCH 30.5 pg (25.0-35.0); MCHC 32.2 g/dL (31.0-37.0); MCV 94.7 fL (80.0-100.0); Mean Platelet Volume 7.3; Platelet Count 397 k/uL (150-450); RBC 2.79 m/uL (4.30-5.90); WBC 8.9 k/uL (3.8-10.6)
--- NOTE | 2019-12-14 20:12 | P.PN ---
Progress Note - Text Progress Note Date: 12/14/19 Chief Complaint: Anemia History of presenting complaint: Patient is a 69-year-old male with a past medical history of chronic venous stasis ulcers with recurrent cellulitis of the lower extremities, sleep apnea, hypertension, diabetes mellitus type 2 and chronic kidney disease stage IV . Recently the hospital from November 27 through December 03. Admitted with sepsis from UTI and cystitis. Treated with IV cefepime.-.urine culture positive for E. coli ESBL. Patient responded well to IV ertapenem. Patient is discharged to get 10 more days of IV antibiotics. Patient was discharged to [facility]. He was now transferred back with hemoglobin of 6. Patient not able to ambulate was only being transferred to a chair. Patient admission was noted to be having bloody stools. Did complain of some epigastric discomfort. No nausea vomiting. Patient appetite has not been good. Denies any fever and chills. Hemoglobin in the ER initially was 6.1 which intraoperative 5.3 this morning. Patient is given a unit hemoglobin last night. And 2 more units were ordered by me this morning. He also decided to move the patient to the ICU with consultation to field map technician and GI. Admitted with acute GI bleed. Patient received a total of 4 units of blood. Also having diarrhea tested positive for C. diff. started on oral vancomycin. EGD found have a bleeding duodenal ulcer and antral gastritis.-Endo Clip was done Today-overnight had Dr. mcqueen stools. No fresh blood. No maroon stool.. Advanced to full liquid diet at lunch by GI. No abdominal pain. Review of systems: Was done for constitutional, cardiovascular, GI, pulmonary. relevant finding as above Active Medications Hydrocodone Bitart/Acetaminophen ([place] 10) 1 each PO TID PRN PRN Reason: Pain Last Admin: 12/12/19 21:56 Dose: 1 each Documented by: Allopurinol (Zyloprim) 100 mg PO DAILY [facility] Last Admin: 12/14/19 09:13 Dose: 100 mg Documented by: Amlodipine Besylate (Norvasc) 5 mg PO BID@0900,2100 [facility] Last Admin: 12/14/19 09:13 Dose: 5 mg Documented by: Atorvastatin Calcium (Lipitor) 20 mg PO HS@2100 [facility] Last Admin: 12/13/19 21:11 Dose: 20 mg Documented by: Calcitriol (Rocaltrol) 0.25 mcg PO DAILY@0900 [facility] Last Admin: 12/14/19 09:12 Dose: 0.25 mcg Documented by: Vázquez Syrup (Vázquez Syrup) 5 ml PO QID [facility] Last Admin: 12/14/19 18:26 Dose: 5 ml Documented by: Cholecalciferol (Vitamin D3 (25 Mcg = 1000 Iu)) 5,000 unit PO HS@2100 [facility] Last Admin: 12/13/19 21:11 Dose: 5,000 unit Documented by: Gabapentin (Neurontin) 100 mg PO TID@0600,1400,2200 [facility] Last Admin: 12/14/19 15:55 Dose: 100 mg Documented by: Hydralazine HCl (Apresoline) 50 mg PO TID@0600,1400,2200 [facility] Last Admin: 12/14/19 15:55 Dose: 50 mg Documented by: Sodium Chloride (Saline 0.9%) 1,000 mls @ 100 mls/hr IV .Q10H [facility] Last Admin: 12/14/19 18:49 Dose: 100 mls/hr Documented by: Insulin Aspart (Novolog) 0 unit SQ ACHS [facility]; Protocol Last Admin: 12/14/19 17:44 Dose: Not Given Documented by: Insulin Detemir (Levemir) 30 unit SQ DAILY@0700 [facility] Last Admin: 12/14/19 07:06 Dose: 30 unit Documented by: Magnesium Oxide (Mag-Ox) 400 mg PO HS@2100 [facility] Last Admin: 12/13/19 21:11 Dose: 400 mg Documented by: Ondansetron HCl (Zofran) 4 mg IVP Q6HR PRN PRN Reason: Nausea And Vomiting Last Admin: 12/11/19 15:55 Dose: 4 mg Documented by: Pantoprazole Sodium (Protonix) 40 mg IV BID [facility] Last Admin: 12/14/19 09:09 Dose: 40 mg Documented by: Vancomycin HCl (Vancomycin Oral Solution) 250 mg PO Q6HR [facility] Last Admin: 12/14/19 18:26 Dose: 250 mg Documented by: On examination: VITAL SIGNS: 98.4, 79, 18, 106-62, melena 9% room air GENERAL APPEARANCE: Sitting over a chair, comfortable HEENT: Normal external appearance of nose and ear. Oral cavity normal EYES: Pupils equal. Conjunctiva pale NECK: JVD not raised. Mass not palpable. RESPIRATORY: Respiratory effort normal. Lungs clear to auscultation. CARDIOVASCULAR: First and second sounds normal. No edema. ABDOMEN: Soft. Liver and spleen not palpable. No tenderness. No mass palpable. PSYCHIATRY: Alert and oriented x3. Mood and affect normal. DERMATOLOGICAL: Chronic Left lower extremity wound-with dressing with Pastor wrap INVESTIGATIONS, reviewed in the clinical context: Hemoglobin 8.4 Previous testing White count 12.5 hemoglobin 7 potassium 5.3 bun 46 creatinine 2.08 On December 03: Hemoglobin 7.4 bun 63 creatinine 1.87 Assessment: -Acute GI bleed, persistent POA -Bleeding 2 cm duodenal ulcer and antral gastritis status post epinephrine injection and Endo Clip placement-on December 10 -Acute severe blood loss anemia symptomatic requiring blood transfusion, POA. Slow to respond. Fifth unit of blood ordered today.. -Acute UTI with cystitis, from E. coli/ESBL causing's sepsis, on recent admission patient finished IV ertapenem on December 13 -chronicleft lower extremity cellulitis-improved -Hypertension with chronic kidney disease -Morbid obesity BMI 43.0 -COPD -Diabetes mellitus type 2 -Essential hypertension -Primary osteoarthritis -Chronic kidney disease stage 3 -Diabetic peripheral neuropathy -Chronic lower extremity wound for which [facility] -Obstructive sleep apnea uses CPAP -Chronic umbilical hernia -Mild cognitive impairment -Chronic gait dysfunction sometimes uses a walker otherwise mainly a chair Disposition: -Hemoglobin is remains stable. Diet advanced to full liquids. Follow H&H. Bleeding likely stopped.
[2019-12-14] MEDS: CHOLECALCIFEROL 1,000 UNIT TAB PO SCH (20:24)
[2019-12-14] MEDS: MAGNESIUM OXIDE 400 MG TAB PO SCH (20:24)
[2019-12-14] MEDS: HYDROcodone/APAP 10-325MG 1 EACH TAB PO PRN (20:24)
[2019-12-14] MEDS: ATORVASTATIN 20 MG TAB PO SCH (20:24)
[2019-12-14 20:29] LABS: Glucose,Whole Blood 205 mg/dL (75-99)
[2019-12-15] MEDS: hydrALAZINE HCL 50 MG TAB PO SCH ×3 (05:27→21:14)
[2019-12-15] MEDS: GABAPENTIN 100 MG CAP PO SCH ×3 (05:28→21:14)
[2019-12-15] MEDS: VANCOMYCIN ORAL SOLUTION 250 MG/5 ML BOTTLE PO SCH ×4 (05:28→21:16)
[2019-12-15] MEDS: SODIUM CHLORIDE 0.9% 1,000 ML IV SCH ×3 (05:28→21:16)
[2019-12-15] MEDS: CHERRY FLAVOR 60 ML BOTTLE PO SCH ×4 (07:32→21:16)
[2019-12-15] MEDS: CALCITRIOL 0.25 MCG CAP PO SCH (07:40)
[2019-12-15] MEDS: ALLOPURINOL 100 MG TAB PO SCH (07:40)
[2019-12-15 07:41] LABS: Glucose,Whole Blood 94 mg/dL (75-99)
[2019-12-15] MEDS: amLODIPine 5 MG TAB PO SCH ×2 (07:41→21:15)
[2019-12-15] MEDS: PANTOPRAZOLE 40 MG/10 ML VIAL IV SCH ×2 (07:41→21:14)
[2019-12-15] MEDS: INSULIN DETEMIR (LEVEMIR) 100 UNIT/ML SYR SQ SCH (07:41)
[2019-12-15] MEDS: INSULIN ASPART (NovoLOG) 100 UNIT/ML VIAL SQ SCH ×4 (07:42→21:15)
[2019-12-15 08:11] LABS: Anisocytosis Slight; Basophils % (A) 1 %; Eosinophils # (A) 0.2 k/uL (0-0.7); Eosinophils % (A) 3 %; HCT 24.7 % (39.0-53.0); HGB 7.8 gm/dL (13.0-17.5); Hypochromasia Slight; Lymphocytes % (A) 14 %; MCH 29.7 pg (25.0-35.0); MCHC 31.6 g/dL (31.0-37.0); MCV 94.1 fL (80.0-100.0); Mean Platelet Volume 7.2; Monocytes # (A) 0.6 k/uL (0-1.0); Monocytes % (A) 8 %; Neutrophils # (A) 5.4 k/uL (1.3-7.7); Neutrophils % (A) 72 %; Platelet Count 374 k/uL (150-450); RBC 2.63 m/uL (4.30-5.90); RDW 16.8 % (11.5-15.5); WBC 7.5 k/uL (3.8-10.6)
[2019-12-15 11:23] LABS: Glucose,Whole Blood 178 mg/dL (75-99)
[2019-12-15 12:31] VITALS: BMI 43.4
--- NOTE | 2019-12-15 15:22 | PN ---
PROGRESS NOTE DATE OF SERVICE: 12/15/2019 REASON FOR FOLLOWUP: C difficile colitis. INTERVAL HISTORY: The patient is currently afebrile, has been breathing comfortably. Denies having any chest pain. No shortness of breath. No cough. No abdominal pain. Diarrhea has resolved. No blood in the stool. PHYSICAL EXAMINATION: Blood pressure 151/61 with a pulse of 87, temperature 97.7, 98% on room air. General description is an elderly male, up in the chair in no distress. RESPIRATORY SYSTEM: Unlabored breathing, clear to auscultation anteriorly. HEART: S1, S2. Regular rate and rhythm. ABDOMEN: Soft, no tenderness. LABS: Hemoglobin 7.8, white count 7.5. DIAGNOSTIC IMPRESSION AND PLAN: Patient with C difficile colitis, clinically responding to the oral vancomycin to continue to finish a 10-day course of therapy. Advised to increase probiotic and yogurt intake and monitor clinical course closely. MMODL / IJN: [id number] /
[2019-12-15 15:50] LABS: Anisocytosis Slight; HCT 24.3 % (39.0-53.0); HGB 7.7 gm/dL (13.0-17.5); Hypochromasia Slight; MCH 29.8 pg (25.0-35.0); MCHC 31.6 g/dL (31.0-37.0); MCV 94.5 fL (80.0-100.0); Mean Platelet Volume 7.1; Platelet Count 351 k/uL (150-450); RBC 2.57 m/uL (4.30-5.90); RDW 16.8 % (11.5-15.5)
[2019-12-15 16:40] LABS: Glucose,Whole Blood 131 mg/dL (75-99)
--- NOTE | 2019-12-15 19:28 | PN ---
PROGRESS NOTE DATE OF DICTATION: 12/15/2019 This patient is a 69-year-old pleasant white male admitted to the hospital with acute upper GI bleed, status post EGD 4 days ago, noted to have a duodenal ulcer. He had one dark-colored stool this morning. Hemoglobin dropped from 8.7 to 7.5 g/dL. Overall he is feeling well. He was transferred from the intensive care unit, on a full liquid diet, tolerating well. PHYSICAL EXAMINATION: Blood pressure is 175/62, pulse rate 80, temperature 98. HEENT examination unremarkable. Conjunctivae pink. Sclerae anicteric. Oral cavity no lesions. NECK: No JVD or lymph node enlargement. CHEST: Clear to auscultation. HEART: Regular rate and rhythm. ABDOMEN: Soft. Bowel sounds are positive. No organomegaly. EXTREMITIES: No pedal edema. SKIN: No rashes. NEUROLOGIC: Alert and oriented x3. No focal deficits. LABS: Hemoglobin 7.7, platelets 351. WBC 8. IMPRESSION: 1. Acute upper gastrointestinal bleed, status post esophagogastroduodenoscopy that revealed a duodenal ulcer 4 days ago, on Protonix 40 mg twice daily. No further bleeding. Hemoglobin stable at 7.5 g/dL. 2. Chronic kidney disease. 3. Anemia secondary to acute blood loss, status post 5 units of packed RBC transfusion. 4. Left lower extremity cellulitis, on antibiotics. 5. Clostridium difficile colitis, on vancomycin. RECOMMENDATIONS: 1. Continue with Protonix 40 mg twice daily. 2. Advance diet as tolerated. 3. Monitor CBC closely. 4. Continue vancomycin. 5. Symptomatic and supportive care. Will follow with you. Thank you for this consultation. MMODL / IJN: [id number] /
[2019-12-15 19:41] VITALS: RESP 18
[2019-12-15 20:20] LABS: Glucose,Whole Blood 178 mg/dL (75-99)
[2019-12-15] MEDS: ATORVASTATIN 20 MG TAB PO SCH (21:14)
[2019-12-15] MEDS: MAGNESIUM OXIDE 400 MG TAB PO SCH (21:14)
[2019-12-15] MEDS: CHOLECALCIFEROL 1,000 UNIT TAB PO SCH (21:15)
--- NOTE | 2019-12-15 21:24 | P.PN ---
Progress Note - Text Progress Note Date: 12/15/19 Chief Complaint: Anemia History of presenting complaint: Patient is a 69-year-old male with a past medical history of chronic venous stasis ulcers with recurrent cellulitis of the lower extremities, sleep apnea, hypertension, diabetes mellitus type 2 and chronic kidney disease stage IV . Recently the hospital from November 27 through December 03. Admitted with sepsis from UTI and cystitis. Treated with IV cefepime.-.urine culture positive for E. coli ESBL. Patient responded well to IV ertapenem. Patient is discharged to get 10 more days of IV antibiotics. Patient was discharged to [facility]. He was now transferred back with hemoglobin of 6. Patient not able to ambulate was only being transferred to a chair. Patient admission was noted to be having bloody stools. Did complain of some epigastric discomfort. No nausea vomiting. Patient appetite has not been good. Denies any fever and chills. Hemoglobin in the ER initially was 6.1 which intraoperative 5.3 this morning. Patient is given a unit hemoglobin last night. And 2 more units were ordered by me this morning. He also decided to move the patient to the ICU with consultation to heat plant specialist and GI. Admitted with acute GI bleed. Patient received a total of 4 units of blood. Also having diarrhea tested positive for C. diff. started on oral vancomycin. EGD found have a bleeding duodenal ulcer and antral gastritis.-Endo Clip was done Today-do not have any further toxins. No abdominal pain. Feeling better. On a full liquid diet. No diarrhea. Review of systems: Was done for constitutional, cardiovascular, GI, pulmonary. relevant finding as above Active Medications Hydrocodone Bitart/Acetaminophen ([place] 10) 1 each PO TID PRN PRN Reason: Pain Last Admin: 12/14/19 20:24 Dose: 1 each Documented by: Allopurinol (Zyloprim) 100 mg PO DAILY [facility] Last Admin: 12/15/19 07:40 Dose: 100 mg Documented by: Amlodipine Besylate (Norvasc) 5 mg PO BID@0900,2100 [facility] Last Admin: 12/15/19 21:15 Dose: 5 mg Documented by: Atorvastatin Calcium (Lipitor) 20 mg PO HS@2100 [facility] Last Admin: 12/15/19 21:14 Dose: 20 mg Documented by: Calcitriol (Rocaltrol) 0.25 mcg PO DAILY@0900 [facility] Last Admin: 12/15/19 07:40 Dose: 0.25 mcg Documented by: Vázquez Syrup (Vázquez Syrup) 5 ml PO QID [facility] Last Admin: 12/15/19 21:16 Dose: 5 ml Documented by: Cholecalciferol (Vitamin D3 (25 Mcg = 1000 Iu)) 5,000 unit PO HS@2100 [facility] Last Admin: 12/15/19 21:15 Dose: 5,000 unit Documented by: Gabapentin (Neurontin) 100 mg PO TID@0600,1400,2200 [facility] Last Admin: 12/15/19 21:14 Dose: 100 mg Documented by: Hydralazine HCl (Apresoline) 50 mg PO TID@0600,1400,2200 [facility] Last Admin: 12/15/19 21:14 Dose: 50 mg Documented by: Sodium Chloride (Saline 0.9%) 1,000 mls @ 100 mls/hr IV .Q10H [facility] Last Admin: 12/15/19 21:16 Dose: 100 mls/hr Documented by: Insulin Aspart (Novolog) 0 unit SQ ACHS [facility]; Protocol Last Admin: 12/15/19 21:15 Dose: 3 unit Documented by: Insulin Detemir (Levemir) 30 unit SQ DAILY@0700 [facility] Last Admin: 12/15/19 07:41 Dose: 30 unit Documented by: Magnesium Oxide (Mag-Ox) 400 mg PO HS@2100 [facility] Last Admin: 12/15/19 21:14 Dose: 400 mg Documented by: Ondansetron HCl (Zofran) 4 mg IVP Q6HR PRN PRN Reason: Nausea And Vomiting Last Admin: 12/11/19 15:55 Dose: 4 mg Documented by: Pantoprazole Sodium (Protonix) 40 mg IV BID [facility] Last Admin: 12/15/19 21:14 Dose: 40 mg Documented by: Vancomycin HCl (Vancomycin Oral Solution) 250 mg PO Q6HR [facility] Last Admin: 12/15/19 21:16 Dose: 250 mg Documented by: On examination: VITAL SIGNS: 97.7, 67, 16, 151/61, 98% on room air GENERAL APPEARANCE: Sitting up,, comfortable HEENT: Normal external appearance of nose and ear. Oral cavity normal EYES: Pupils equal. Conjunctiva pale NECK: JVD not raised. Mass not palpable. RESPIRATORY: Respiratory effort normal. Lungs clear to auscultation. CARDIOVASCULAR: First and second sounds normal. No edema. ABDOMEN: Soft. Liver and spleen not palpable. No tenderness. No mass palpable. PSYCHIATRY: Alert and oriented x3. Mood and affect normal. DERMATOLOGICAL: Chronic Left lower extremity wound-with dressing with Pastor wrap INVESTIGATIONS, reviewed in the clinical context: Hemoglobin 7.8 Previous testing White count 12.5 hemoglobin 7 potassium 5.3 bun 46 creatinine 2.08 On December 03: Hemoglobin 7.4 bun 63 creatinine 1.87 Assessment: -Acute GI bleed, persistent POA -Bleeding 2 cm duodenal ulcer and antral gastritis status post epinephrine injection and Endo Clip placement-on December 10 -Acute severe blood loss anemia symptomatic requiring blood transfusion, POA. Slow to respond. Fifth unit of blood ordered today.. -Acute UTI with cystitis, from E. coli/ESBL causing's sepsis, on recent admission patient finished IV ertapenem on December 13 -chronicleft lower extremity cellulitis-improved -Hypertension with chronic kidney disease -Morbid obesity BMI 43.0 -COPD -Diabetes mellitus type 2 -Essential hypertension -Primary osteoarthritis -Chronic kidney disease stage 3 -Diabetic peripheral neuropathy -Chronic lower extremity wound for which [facility] -Obstructive sleep apnea uses CPAP -Chronic umbilical hernia -Mild cognitive impairment -Chronic gait dysfunction sometimes uses a walker otherwise mainly a chair Disposition: -No further clinical evidence of bleeding. CBC was repeated this evening. Came back as 7.7. Repeat 1 in the morning. He remained stable and [facility]. Discussed with the patient.
[2019-12-16 02:53] VITALS: BP 139/56; PULSE 72; TEMP 99.2
[2019-12-16] MEDS: GABAPENTIN 100 MG CAP PO SCH (05:41)
[2019-12-16] MEDS: hydrALAZINE HCL 50 MG TAB PO SCH (05:41)
[2019-12-16] MEDS: VANCOMYCIN ORAL SOLUTION 250 MG/5 ML BOTTLE PO SCH ×2 (05:41→12:46)
[2019-12-16 06:43] LABS: Anisocytosis Slight; Basophils % (A) 0 %; Eosinophils # (A) 0.3 k/uL (0-0.7); Eosinophils % (A) 3 %; HCT 24.1 % (39.0-53.0); HGB 7.7 gm/dL (13.0-17.5); Hypochromasia Slight; Lymphocytes # (A) 1.1 k/uL (1.0-4.8); Lymphocytes % (A) 12 %; MCH 29.6 pg (25.0-35.0); MCHC 31.8 g/dL (31.0-37.0); MCV 93.3 fL (80.0-100.0); Mean Platelet Volume 7.8; Monocytes # (A) 0.6 k/uL (0-1.0); Monocytes % (A) 7 %; Neutrophils # (A) 7.2 k/uL (1.3-7.7); Neutrophils % (A) 77 %; Platelet Count 389 k/uL (150-450); RBC 2.58 m/uL (4.30-5.90); RDW 16.5 % (11.5-15.5); WBC 9.3 k/uL (3.8-10.6)
[2019-12-16 06:53] LABS: Glucose,Whole Blood 104 mg/dL (75-99)
[2019-12-16] MEDS: INSULIN ASPART (NovoLOG) 100 UNIT/ML VIAL SQ SCH ×2 (07:11→12:46)
[2019-12-16] MEDS: INSULIN DETEMIR (LEVEMIR) 100 UNIT/ML SYR SQ SCH (07:26)
[2019-12-16] MEDS: CALCITRIOL 0.25 MCG CAP PO SCH (07:26)
[2019-12-16] MEDS: ALLOPURINOL 100 MG TAB PO SCH (07:26)
[2019-12-16] MEDS: amLODIPine 5 MG TAB PO SCH (07:26)
[2019-12-16] MEDS: PANTOPRAZOLE 40 MG/10 ML VIAL IV SCH (07:28)
[2019-12-16] MEDS: CHERRY FLAVOR 60 ML BOTTLE PO SCH ×2 (07:28→12:46)
[2019-12-16 11:37] LABS: Glucose,Whole Blood 177 mg/dL (75-99)
[2019-12-16] MEDS: SODIUM CHLORIDE 0.9% 1,000 ML IV SCH (12:47)
--- NOTE | 2019-12-16 13:58 | P.DS ---
Providers Date of admission: 12/09/19 18:18 Expected date of discharge: 12/16/19 Attending physician: Jonh Butcher Consults: 12/10/19 07:48 Consult Physician Urgent Consulting Provider: Marylin Herman Consult Reason/Comments: GI Bleed Do you want consulting provider notified?: Yes 12/10/19 10:05 Consult Physician Routine Consulting Provider: Min Ratliff Consult Reason/Comments: icu management Do you want consulting provider notified?: Yes 12/11/19 09:12 Consult Physician Urgent Consulting Provider: Cristian Watson Consult Reason/Comments: cdiff infection Do you want consulting provider notified?: Yes Primary care physician: [facility] Course: Chief Complaint: Anemia History of presenting complaint: Patient is a 69-year-old male with a past medical history of chronic venous stasis ulcers with recurrent cellulitis of the lower extremities, sleep apnea, hypertension, diabetes mellitus type 2 and chronic kidney disease stage IV . Recently the hospital from November 27 through December 03. Admitted with sepsis from UTI and cystitis. Treated with IV cefepime.-.urine culture positive for E. coli ESBL. Patient responded well to IV ertapenem. Patient is discharged to get 10 more days of IV antibiotics. Patient was discharged to [facility]. He was now transferred back with hemoglobin of 6. Patient not able to ambulate was only being transferred to a chair. Patient admission was noted to be having bloody stools. Did complain of some epigastric discomfort. No nausea vomiting. Patient appetite has not been good. Denies any fever and chills. Hemoglobin in the ER initially was 6.1 which intraoperative 5.3 this morning. Patient is given a unit hemoglobin last night. And 2 more units were ordered by me this morning. He also decided to move the patient to the ICU with consultation to budget assistant and GI. Admitted with acute GI bleed. Patient received a total of 4 units of blood. Also having diarrhea tested positive for C. diff. started on oral vancomycin. EGD found have a bleeding duodenal ulcer and antral gastritis.-Endo Clip was done Today-feeling better. Occasional diarrhea. Eating well. No further bleeding.. Consultation: Dr. Chito Herman from GI Dr. Watson from ID Dr. Griffith from pulmonary On examination: VITAL SIGNS: 99.2, 72, 18, 139/56, 95% room air GENERAL APPEARANCE: Sitting up,, comfortable HEENT: Normal external appearance of nose and ear. Oral cavity normal EYES: Pupils equal. Conjunctiva pale NECK: JVD not raised. Mass not palpable. RESPIRATORY: Respiratory effort normal. Lungs clear to auscultation. CARDIOVASCULAR: First and second sounds normal. No edema. ABDOMEN: Soft. Liver and spleen not palpable. No tenderness. No mass palpable. PSYCHIATRY: Alert and oriented x3. Mood and affect normal. DERMATOLOGICAL: Chronic Left lower extremity wound-with dressing with Pastor wrap INVESTIGATIONS, reviewed in the clinical context: Hemoglobin 7.7 Previous testing White count 12.5 hemoglobin 7 potassium 5.3 bun 46 creatinine 2.08 On December 03: Hemoglobin 7.4 bun 63 creatinine 1.87 Assessment: -Acute GI bleed, persistent POA -Bleeding 2 cm duodenal ulcer and antral gastritis status post epinephrine injection and Endo Clip placement-on December 10 -Acute severe blood loss anemia symptomatic requiring blood transfusion, POA. Slow to respond. Fifth unit of blood ordered today.. -Acute UTI with cystitis, from E. coli/ESBL causing's sepsis, on recent admission patient finished IV ertapenem on December 13 -chronicleft lower extremity cellulitis-improved -Hypertension with chronic kidney disease -Morbid obesity BMI 43.0 -COPD -Diabetes mellitus type 2 -Essential hypertension -Primary osteoarthritis -Chronic kidney disease stage 3 -Diabetic peripheral neuropathy -Chronic lower extremity wound for which she [facility] -Obstructive sleep apnea uses CPAP -Chronic umbilical hernia -Mild cognitive impairment -Chronic gait dysfunction sometimes uses a walker otherwise mainly a chair Disposition: ECF/[facility] Patient Condition at Discharge: Stable Plan - Discharge Summary Discharge Rx Participant: No New Discharge Prescriptions: New INSULIN ASPART (NovoLOG) [NovoLOG (formulary)] 0 unit SQ ACHS vial Pantoprazole [Protonix] 40 mg PO BID tablet. Vancomycin Oral Solution 250 mg PO Q6HR 5 Days ml Continue Cholecalciferol [Vitamin D3 (25 Mcg = 1000 Iu)] 5,000 unit PO HS@2100 Allopurinol [Zyloprim] 100 mg PO DAILY Fish Oil/Dha/Epa [Fish Oil 1,200 mg Fish Oil] 1 cap PO DAILY@0900 Ferrous Sulfate [Iron (65 MG Elemental)] 325 mg PO DAILY@0900,1700 amLODIPine [Norvasc] 5 mg PO BID@0900,2100 Calcitriol 0.25 mcg PO DAILY@0900 hydrALAZINE HCL 50 mg PO TID@0600,1400,2200 Magnesium Oxide [Mag-Ox] 400 mg PO HS@2099 Insulin Glargine,Hum.rec.anlog [Basaglar Kwikpen U-100] 30 unit SQ DAILY@0900 Atorvastatin [Lipitor] 20 mg PO HS@2099 Gabapentin [Neurontin] 100 mg PO TID@0600,1400,2200 #9 cap HYDROcodone/APAP 10-325MG [[place] 10-325] 1 tab PO TID PRN #9 tab PRN Reason: Pain Changed INSULIN ASPART (NovoLOG) [NovoLOG (formulary)] 4 unit SQ ACHS #0 Discontinued Psyllium Husk 100% [Metamucil Packet] 6 gm PO BID@0900,2099 Ertapenem [INVanz] 1 gm IVPB DAILY@0600 Aspirin 81 mg PO DAILY@0900 Discharge Medication List Allopurinol [Zyloprim] 100 mg PO DAILY 04/22/15 [History] Cholecalciferol [Vitamin D3 (25 Mcg = 1000 Iu)] 5,000 unit PO HS@209904/22/15 [History] Fish Oil/Dha/Epa [Fish Oil 1,200 mg Fish Oil] 1 cap PO DAILY@0900 09/06/15 [History] Ferrous Sulfate [Iron (65 MG Elemental)] 325 mg PO DAILY@0900,1700 10/23/15 [History] amLODIPine [Norvasc] 5 mg PO BID@0900,2100 08/27/17 [History] Calcitriol 0.25 mcg PO DAILY@0900 12/16/18 [History] Atorvastatin [Lipitor] 20 mg PO HS@209912/09/19 [History] Insulin Glargine,Hum.rec.anlog [Basaglar Kwikpen U-100] 30 unit SQ DAILY@0900 12/09/19 [History] Magnesium Oxide [Mag-Ox] 400 mg PO HS@209912/09/19 [History] hydrALAZINE HCL 50 mg PO TID@0600,1400,2200 12/09/19 [History] Gabapentin [Neurontin] 100 mg PO TID@0600,1400,2200 #9 cap 12/16/19 [Rx] HYDROcodone/APAP 10-325MG [[place] 10-325] 1 tab PO TID PRN #9 tab 12/16/19 [Rx] INSULIN ASPART (NovoLOG) [NovoLOG (formulary)] 0 unit SQ ACHS vial 12/16/19 [Rx] INSULIN ASPART (NovoLOG) [NovoLOG (formulary)] 4 unit SQ ACHS #0 12/16/19 [Rx] Pantoprazole [Protonix] 40 mg PO BID tablet. 12/16/19 [Rx] Vancomycin Oral Solution 250 mg PO Q6HR 5 Days ml 12/16/19 [Rx] Follow up Appointment(s)/Referral(s): Chance Flowers MD [Primary Care Provider] - 1-2 days Marylin Herman MD [STAFF PHYSICIAN] - 3 Weeks
--- NOTE | 2019-12-16 16:43 | PN ---
PROGRESS NOTE DATE OF SERVICE: 12/16/2019 The patient is a 69-year-old pleasant white male admitted to hospital with acute GI bleed. He is doing better, was diagnosed with duodenal ulcer, remains on Protonix 40 mg twice daily. He had three dark colored stools early this morning. Hemoglobin stable at 7.7 g/dL. He denies any complaints. PHYSICAL EXAMINATION: Blood pressure 139/66, pulse rate 72, temperature 99.2 HEENT examination unremarkable. Conjunctivae pink. Sclerae anicteric. Oral cavity, no lesions. NECK: No JVD or lymph node enlargement. CHEST: Clear to auscultation. HEART: Regular rate and rhythm. ABDOMEN: Soft. Bowel sounds are positive. No organomegaly. EXTREMITIES: No pedal edema. NEUROLOGIC: Alert and oriented x3. No focal deficits. LABS: WBC 7.7. IMPRESSION: 1. Acute upper gastrointestinal bleed status post EGD four days ago, revealed a deep duodenal ulcer, on Protonix 40 mg twice daily. No further bleeding. Hemoglobin stable at 7.7 g/dL. 2. Clostridium difficile colitis on vancomycin. 3. Left lower extremity cellulitis. 4. Chronic kidney injury. RECOMMENDATIONS: Continue with Protonix 40 mg q.12 hours. Advance to regular diet. Repeat CBC in the morning. We will follow with you closely. Thank you for this consultation. MMODL / IJN: [id number] /
[2019-12-16] MEDS ORDERED: PANTOPRAZOLE 40 MG TABLET PO SCH (21:00)
== END 2019-12-16 15:00 | DRG 378 ==
LOC: EC 17:29 → 3SCARD 18:18 → 2SICU 12-10 09:19 → 4SSUR 12-14 23:12
PROVIDERS: ADMIT Hospitalist; ATTEND Hospitalist
PROC: 30243N1 Transfusion of Nonautologous Red Blood Cells into Central Vein, Percutaneous Approach (ICD-10-PCS; 2019-12-09)
PROC: 0DB78ZX Excision of Stomach, Pylorus, Via Natural or Artificial Opening Endoscopic, Diagnostic (ICD-10-PCS; principal; 2019-12-11 07:30)
PROC: 0W3P8ZZ Control Bleeding in Gastrointestinal Tract, Via Natural or Artificial Opening Endoscopic (ICD-10-PCS; principal; 2019-12-11 07:30)
PROC: 3E0G8GC Introduction of Other Therapeutic Substance into Upper GI, Via Natural or Artificial Opening Endoscopic (ICD-10-PCS; principal; 2019-12-11 07:30)
DX: K26.4 Chronic or unspecified duodenal ulcer with hemorrhage (principal); D62 Acute posthemorrhagic anemia; A04.72 Enterocolitis due to Clostridium difficile, not specified as recurrent; N17.9 Acute kidney failure, unspecified; I13.0 Hypertensive heart and chronic kidney disease with heart failure and stage 1 through stage 4 chronic kidney disease, or unspecified chronic kidney disease; L03.115 Cellulitis of right lower limb; L03.116 Cellulitis of left lower limb; L97.829 Non-pressure chronic ulcer of other part of left lower leg with unspecified severity; N18.4 Chronic kidney disease, stage 4 (severe); N30.00 Acute cystitis without hematuria; Z68.41 Body mass index [BMI] 40.0-44.9, adult; Z16.12 Extended spectrum beta lactamase (ESBL) resistance; Z16.24 Resistance to multiple antibiotics; E11.42 Type 2 diabetes mellitus with diabetic polyneuropathy; E11.22 Type 2 diabetes mellitus with diabetic chronic kidney disease; I50.9 Heart failure, unspecified; I83.028 Varicose veins of left lower extremity with ulcer other part of lower leg; D63.1 Anemia in chronic kidney disease; F03.90 Unspecified dementia, unspecified severity, without behavioral disturbance, psychotic disturbance, mood disturbance, and anxiety; E66.01 Morbid (severe) obesity due to excess calories; Z79.4 Long term (current) use of insulin; J44.9 Chronic obstructive pulmonary disease, unspecified; K29.50 Unspecified chronic gastritis without bleeding; Z20.828 Contact with and (suspected) exposure to other viral communicable diseases; I83.91 Asymptomatic varicose veins of right lower extremity; E78.5 Hyperlipidemia, unspecified; E78.00 Pure hypercholesterolemia, unspecified; R26.9 Unspecified abnormalities of gait and mobility; B96.20 Unspecified Escherichia coli [E. coli] as the cause of diseases classified elsewhere; G47.33 Obstructive sleep apnea (adult) (pediatric); K42.9 Umbilical hernia without obstruction or gangrene; M19.91 Primary osteoarthritis, unspecified site; Z79.82 Long term (current) use of aspirin; Z79.899 Other long term (current) drug therapy; Z87.01 Personal history of pneumonia (recurrent); Z99.89 Dependence on other enabling machines and devices; Z86.19 Personal history of other infectious and parasitic diseases; Z90.49 Acquired absence of other specified parts of digestive tract; Z95.5 Presence of coronary angioplasty implant and graft; Z98.42 Cataract extraction status, left eye; Z98.41 Cataract extraction status, right eye; Z98.890 Other specified postprocedural states; Z74.01 Bed confinement status; Z99.3 Dependence on wheelchair; Z87.891 Personal history of nicotine dependence; Z71.3 Dietary counseling and surveillance; Z88.6 Allergy status to analgesic agent; Z88.2 Allergy status to sulfonamides; Z82.5 Family history of asthma and other chronic lower respiratory diseases; Z81.2 Family history of tobacco abuse and dependence; Z83.3 Family history of diabetes mellitus; Z82.49 Family history of ischemic heart disease and other diseases of the circulatory system; Z83.2 Family history of diseases of the blood and blood-forming organs and certain disorders involving the immune mechanism
CPT/HCPCS: 36415; 43239; 43243; 43255; 71045; 80048; 80053; 82272; 82607; 82746; 83540; 83550; 83735; 84484; 85025; 85027; 85045; 85610; 85730; 86850; 86900; 86901; 86920; 87324; 88305; 96361; 96374; 99285

== ENCOUNTER → 2020-01-17 | Outpatient (CLI) | payer MEDICARE, BC ==
[~2020-01-17] MED LIST: DARBEPOETIN ALFA 25 MCG/0.42 ML SYRINGE SQ NR
[2020-01-17 08:45] VITALS: BP 149/62; PULSE 69; RESP 16; TEMP 98.5
[2020-01-17 08:56] LABS: Anisocytosis Slight; HGB 8.3 gm/dL (13.0-17.5); MCH 29.8 pg (25.0-35.0); MCHC 32.2 g/dL (31.0-37.0); MCV 92.6 fL (80.0-100.0); Mean Platelet Volume 7.6; Platelet Count 255 k/uL (150-450); RDW 16.4 % (11.5-15.5); WBC 7.1 k/uL (3.8-10.6)
== END | disposition home or self-care (01) ==
LOC: PROCWHC3 08:23
PROVIDERS: ATTEND Nurse Practitioner Family
DX: D63.1 Anemia in chronic kidney disease (principal); N18.4 Chronic kidney disease, stage 4 (severe)
CPT/HCPCS: 85027; 96372; 36415; J0881

== ENCOUNTER 2020-08-08 15:21 | Inpatient (IN) | payer MEDICARE, BC ==
[2020-08-08 15:31] LABS: Glucose,Whole Blood 98 mg/dL (75-99)
--- NOTE | 2020-08-08 15:58 | ED ---
Recheck HPI - General Source: patient Mode of arrival: wheelchair Limitations: no limitations <Janeth Gonzalez - Last Filed: 08/08/20 17:18> <Ricky Solano - Last Filed: 08/08/20 17:25> - General Chief Complaint: Recheck/Abnormal Lab/Rx Stated Complaint: High Potassium Time Seen by Provider: 08/08/20 15:31 - History of Present Illness Initial Comments: patient is a 69-year-old male, history of renal disease, currently being set up for dialysis, presenting to the emergency Department with complaints of a high p otassium. Patient states he had blood drawn today and they told him to go into the ER because of his potassium was high. They do not remember the value, they stated 6. "something." Patient does not have any specific complaints at this time, no chest pain, no shortness of breath. He denies any fever or chills. Patient denies any dizziness, lightheadedness, no abdominal pain. Denies any nausea or vomiting no diarrhea. He has no further complaints. Upon arrival to the ER, his vital signs are stable. (Janeth Gonzalez) - Related Data Home Medications Medication Instructions Recorded Confirmed Cholecalciferol [Vitamin D3 (25 5,000 unit PO HS 04/22/15 08/08/20 Mcg = 1000 Iu)] allopurinoL [Zyloprim] 100 mg PO DAILY 04/22/15 08/08/20 Fish Oil/Dha/Epa [Fish Oil 1,200 1 cap PO DAILY 09/06/15 08/08/20 mg Fish Oil] Ferrous Sulfate [Iron (65 MG 325 mg PO DAILY 10/23/15 08/08/20 Elemental)] amLODIPine [Norvasc] 5 mg PO BID 08/27/17 08/08/20 calcitrioL [Calcitriol] 0.25 mcg PO DAILY 12/16/18 08/08/20 Atorvastatin [Lipitor] 20 mg PO HS 12/09/19 08/08/20 Aspirin EC [Ecotrin Low Dose] 81 mg PO DAILY 08/08/20 08/08/20 Furosemide [Lasix] 40 mg PO DAILY 08/08/20 08/08/20 Gabapentin [Neurontin] 300 mg PO TID 08/08/20 08/08/20 Insulin Glargine,Hum.rec.anlog 20 unit SQ HS 08/08/20 08/08/20 [Lantus Solostar] Insulin Glargine,Hum.rec.anlog 30 unit SQ DAILY 08/08/20 08/08/20 [Lantus Solostar] Magnesium 250 mg PO DAILY 08/08/20 08/08/20 Pantoprazole [Protonix] 40 mg PO DAILY 08/08/20 08/08/20 Simvastatin 40 mg PO DAILY 08/08/20 08/08/20 Sodium Polystyrene Sulfonate 1 tbsp PO Q48H 08/08/20 08/08/20 hydrALAZINE HCL [Apresoline] 100 mg PO TID 08/08/20 08/08/20 Previous Rx's Medication Instructions Recorded HYDROcodone/APAP 10-325MG [[place] 1 tab PO TID PRN #9 tab 12/16/19 10-325] Allergies Allergy/AdvReac Type Severity Reaction Status Date / Time aspirin [From Anacin] Allergy Rash/Hives Verified 08/08/20 17:10 (Dulce brand ok) sulfamethoxazole AdvReac affects Verified 08/08/20 17:03 [From Bactrim] kidneys trimethoprim [From Bactrim] AdvReac Unknown Verified 08/08/20 17:03 Review of Systems ROS Other: All systems not noted in ROS Statement are negative. <Janeth Gonzalez - Last Filed: 08/08/20 17:18> ROS Other: All systems not noted in ROS Statement are negative. <Ricky Solano - Last Filed: 08/08/20 17:25> ROS Statement: Those systems with pertinent positive or pertinent negative responses have been documented in the HPI. 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, chronic venous ulcer left anterior lower leg-treated in [facility], sepsis from L leg wound, chronic anemia, hyperkalemia, CKD-spouse states his kidneys function at 28%, DELVIN with Cpap, possible starting of dementia, confusion at times at night, bilateral lower leg varicosities, umbilical hernia, Hpylori, ambulates very little with walker and mostly wheelchair bound, recent UTI History of Any Multi-Drug Resistant Organisms: ESBL, VRE Date of last positivie culture/infection: 11/28/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 Past Anesthesia/Blood Transfusion Reactions: No Reported Reaction Date of Last Stent Placement:: 10/2015 Past Psychological History: No Psychological Hx Reported Smoking Status: Former smoker Past Alcohol Use History: None Reported Past Drug Use History: None Reported - Past Family History Father Family Medical History: COPD Additional Family Medical History / Comment(s): AT AGE 64- EMPHYSEMA(SMOKER) Mother Family Medical History: Diabetes Mellitus, Hypertension Additional Family Medical History / Comment(s): LUPUS, LEG AMPUTATED. MOM IN HER 60'S <Janeth Gonzalez - Last Filed: 08/08/20 17:18> General Exam Limitations: no limitations <Janeth Gonzalez - Last Filed: 08/08/20 17:18> Course Vital Signs 08/08/20 08/08/20 15:23 16:29 Temperature 98.4 F Pulse Rate 65 76 Respiratory 18 18 Rate Blood Pressure 127/61 150/72 O2 Sat by Pulse 97 97 Oximetry Medical Decision Making - Lab Data Result diagrams: 08/08/20 16:22 08/08/20 16:22 <Janeth Gonzalez - Last Filed: 08/08/20 17:18> - Lab Data Result diagrams: 08/08/20 16:22 08/08/20 16:22 <Ricky Solano - Last Filed: 08/08/20 17:25> - Medical Decision Making patient is a 69-year-old male with history of kidney disease, presenting for recheck of high potassium levels. Hemoglobin is stable at 9.2, potassium was elevated at 6.4, sodium is 135, creatinine is up from baseline of 3.93, BUN is 93. Magnesium is normal at 1.9. Patient will be admitted for hyperkalemia, acute on chronic kidney disease. We did give patient hyperkalemia meds and started on fluids. Patient accepted by Dr. Butcher. We will consult nephrology. Patient is in agreement this plan of care. Case discussed Dr. Solano. (Janeth Gonzalez) Patient reevaluated and reexamined by myself, Dr. Solano. Patient resting comfortably in bed. Patient has known kidney disease with recent abnormal potassium. Repeat potassium here 6.4 with increase during creatinine numbers. Patient family updated. I do agree with. Findings. This includes diagnostic interpretation and treatment plan. Dr. Butcher has been paged for admission, co vering for Dr. Gordon. Case was discussed with Dr. Butcher, who will admit. (Ricky Solano) - Lab Data Lab Results 08/08/20 08/08/20 08/08/20 Range/Units 15:29 16:22 16:22 WBC 9.9 (3.8-10.6) k/uL RBC 2.94 L (4.30-5.90) m/uL Hgb 9.2 L (13.0-17.5) gm/dL Hct 28.2 L (39.0-53.0) % MCV 95.7 (80.0-100.0) fL MCH 31.3 (25.0-35.0) pg MCHC 32.6 (31.0-37.0) g/dL RDW 14.9 (11.5-15.5) % Plt Count 288 (150-450) k/uL MPV 7.4 Neutrophils % 69 % Lymphocytes % 17 % Monocytes % 6 % Eosinophils % 6 % Basophils % 1 % Neutrophils # 6.9 (1.3-7.7) k/uL Lymphocytes # 1.7 (1.0-4.8) k/uL Monocytes # 0.6 (0-1.0) k/uL Eosinophils # 0.6 (0-0.7) k/uL Basophils # 0.1 (0-0.2) k/uL Sodium 135 L (137-145) mmol/L Potassium 6.4 H* (3.5-5.1) mmol/L Chloride 103 (98-107) mmol/L Carbon Dioxide 22 (22-30) mmol/L Anion Gap 10 mmol/L BUN 93 H (9-20) mg/dL Creatinine 3.93 H (0.66-1.25) mg/dL Est GFR (CKD-EPI)AfAm 17 (>60 ml/min/1.73 sqM) Est GFR (CKD-EPI)NonAf 15 (>60 ml/min/1.73 sqM) Glucose 98 (74-99) mg/dL POC Glucose (mg/dL) 98 (75-99) mg/dL POC Glu Software Recruiter ID Selena Starks Calcium 9.7 (8.4-10.2) mg/dL Magnesium 1.9 (1.6-2.3) mg/dL Total Bilirubin 0.3 (0.2-1.3) mg/dL AST 27 (17-59) U/L ALT 16 (4-49) U/L Alkaline Phosphatase 96 (38-126) U/L Total Protein 7.3 (6.3-8.2) g/dL Albumin 4.3 (3.5-5.0) g/dL - EKG Data EKG Comments: normal sinus rhythm, normal ECG, no signs of acute process. Ventricular rate 69, SD interval 176, QT 370. (Janeth Gonzalez) Critical Care Time Critical Care Time: Yes Total Critical Care Time: 35 (patient has potassium 6.4, we did give him medications, he will be admitted with nephrology consult.) <Janeth Gonzalez - Last Filed: 08/08/20 17:18> Disposition Decision Date: 08/08/20 Decision Time: 17:14 <Janeth Gonzalez - Last Filed: 08/08/20 17:18> <Ricky Solano - Last Filed: 08/08/20 17:25> Clinical Impression: Hyperkalemia, Renal failure, Acute on chronic renal failure Disposition: ADMITTED IP TO THIS HOSP Condition: Stable Referrals: Papo Ford MD [Primary Care Provider] - 1-2 days
[2020-08-08 16:27] LABS: Basophils # (A) 0.1 k/uL (0-0.2); Basophils % (A) 1 %; Eosinophils # (A) 0.6 k/uL (0-0.7); Eosinophils % (A) 6 %; HCT 28.2 % (39.0-53.0); HGB 9.2 gm/dL (13.0-17.5); Lymphocytes # (A) 1.7 k/uL (1.0-4.8); Lymphocytes % (A) 17 %; MCH 31.3 pg (25.0-35.0); MCHC 32.6 g/dL (31.0-37.0); MCV 95.7 fL (80.0-100.0); Mean Platelet Volume 7.4; Monocytes # (A) 0.6 k/uL (0-1.0); Monocytes % (A) 6 %; Neutrophils # (A) 6.9 k/uL (1.3-7.7); Neutrophils % (A) 69 %; Platelet Count 288 k/uL (150-450); RBC 2.94 m/uL (4.30-5.90); RDW 14.9 % (11.5-15.5); WBC 9.9 k/uL (3.8-10.6)
[2020-08-08 16:43] LABS: Albumin 4.3 g/dL (3.5-5.0); Calcium 9.7 mg/dL (8.4-10.2); Magnesium 1.9 mg/dL (1.6-2.3); Total Bilirubin 0.3 mg/dL (0.2-1.3); Total Protein 7.3 g/dL (6.3-8.2)
[2020-08-08 16:48] LABS: Potassium 6.4 mmol/L (3.5-5.1)
[2020-08-08] MEDS ORDERED: ALBUTEROL NEB (CONC) 2.5 MG/0.5 ML INHALATION ONE (17:08)
[2020-08-08] MEDS ORDERED: SODIUM BICARB 8.4% 50 ML SYR (1 MEQ/ML) IV ONE (17:08)
[2020-08-08] MEDS ORDERED: INSULIN REGULAR 100 UNIT/ML VIAL IV ONE (17:08)
[2020-08-08] MEDS ORDERED: DEXTROSE 50% SYRINGE 50 ML IVP ONE (17:08)
[2020-08-08] MEDS ORDERED: SODIUM POLYSTYRENE SULFONATE 15 GM/60 ML BOTTLE PO ONE (17:08)
[2020-08-08] MEDS ORDERED: NALOXONE 0.4 MG/ML 1 ML VIAL IV PRN (17:10)
[2020-08-08] MEDS: SODIUM CHLORIDE 0.9% 1,000 ML IV SCH (17:16)
[2020-08-08] MEDS ORDERED: LACTULOSE 20 GM/30 ML CUP PO PRN (19:12)
[2020-08-08] MEDS ORDERED: HYDROcodone/APAP 10-325MG 1 EACH TAB PO PRN (19:56)
[2020-08-08 21:08] LABS: Glucose,Whole Blood 124 mg/dL (75-99)
[2020-08-08] MEDS: INSULIN DETEMIR (LEVEMIR) 100 UNIT/ML SYR SQ SCH (21:54)
[2020-08-08] MEDS: CHOLECALCIFEROL 25 MCG (1000 IU) TABLET PO SCH (21:54)
[2020-08-08] MEDS: GABAPENTIN 300 MG CAP PO SCH (21:55)
[2020-08-08] MEDS: ATORVASTATIN 20 MG TAB PO SCH (21:55)
[2020-08-08] MEDS: hydrALAZINE HCL 50 MG TAB PO SCH (21:55)
[2020-08-08] MEDS: amLODIPine 5 MG TAB PO SCH (21:55)
[2020-08-08] MEDS: ACETAMINOPHEN TAB 325 MG TAB PO PRN (23:50)
[2020-08-09] MEDS: SODIUM CHLORIDE 0.9% 1,000 ML IV SCH (06:27)
[2020-08-09] MEDS: PANTOPRAZOLE 40 MG TABLET PO SCH (06:27)
[2020-08-09 06:30] LABS: Glucose,Whole Blood 39 mg/dL (75-99)
[2020-08-09 06:30] LABS: Glucose,Whole Blood 39 mg/dL (75-99)
[2020-08-09 06:47] LABS: Glucose,Whole Blood 49 mg/dL (75-99)
[2020-08-09 06:54] LABS: Glucose,Whole Blood 80 mg/dL (75-99)
[2020-08-09 07:50] LABS: Calcium 8.9 mg/dL (8.4-10.2); Magnesium 1.7 mg/dL (1.6-2.3); Potassium 5.1 mmol/L (3.5-5.1)
[2020-08-09] MEDS: amLODIPine 5 MG TAB PO SCH ×2 (09:08→20:20)
[2020-08-09] MEDS: GABAPENTIN 300 MG CAP PO SCH ×3 (09:08→20:21)
[2020-08-09] MEDS: allopurinoL 100 MG TAB PO SCH (09:08)
[2020-08-09] MEDS: FERROUS SULFATE 325 MG TAB PO SCH (09:08)
[2020-08-09] MEDS: ASPIRIN 81 MG PO SCH (09:08)
[2020-08-09] MEDS: hydrALAZINE HCL 50 MG TAB PO SCH ×3 (09:08→20:21)
[2020-08-09] MEDS: NON FORMULARY DRUG (Fish Oil/Dha/Epa [Fish Oil 1,200 Mg Fish Oil] 1 EACH Capsule) PO SCH (09:09)
[2020-08-09] MEDS: ATORVASTATIN 20 MG TAB PO SCH ×2 (09:09→20:21)
--- NOTE | 2020-08-09 11:31 | P.NPCON ---
History of Present Illness - Reason for Consult chronic renal failure, hyperkalemia - History of Present Illness Reason for consultation: Chronic kidney disease and hyperkalemia History of present illness: Patient is a 69-year-old male seen in consultation for chronic kidney disease and hyperkalemia. Patient has chronic kidney disease stage IV secondary to diabetic kidney disease and nephrosclerosis. Patient's creatinine in June 2020 was 3.4. It was 3.9 on admission yesterday and is 3.48 today. Patient was sent to the hospital due to hyperkalemia. He had blood work an outpatient in his potassium level was 6.1. When he came to the hospital was 6.4. He was medically treated with Kayexalate, sodium bicarbonate as well as IV insulin and D50. He also received nebulized albuterol. Potassium level came down to 5.7 last night and he again received IV insulin with D50 and was 5.1 this morning. No evidence of significant acidosis. No evidence of hyperglycemia. In fact his blood sugar this morning was 33. He is awake and alert. Has been voiding. No hematuria. Denies use of nonsteroidals. Denies eating excessive high potassium foods including potatoes and tomatoes and bananas. No edema. He was taking Lasix 40 mg once daily at home. Vital signs are stable. General: The patient appeared well nourished and normally developed. HEENT: Head exam is unremarkable. Neck is without jugular venous distension. LUNGS: Breath sounds decreased. HEART: Rate and Rhythm are regular. ABDOMEN: Soft, nontender. EXTREMITITES: No edema. Past Medical History Past Medical History: Heart Failure, COPD, Diabetes Mellitus, Hyperlipidemia, Hypertension, Osteoarthritis (OA), Pneumonia, Renal Disease, Sleep Apnea/CPAP/BIPAP, Vascular Disorder Additional Past Medical History / Comment(s): IDDM type II, 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, chronic venous ulcer left anterior lower leg-treated in [facility], sepsis from L leg wound, chronic anemia, hyperkalemia, CKD-spouse states his kidneys function at 28%, DELVIN with Cpap, possible starting of dementia, confusion at times at night, bilateral lower leg varicosities, umbilical hernia, Hpylori, ambulates very little with walker and mostly wheelchair bound, recent UTI History of Any Multi-Drug Resistant Organisms: ESBL, VRE Date of last positivie culture/infection: 11/28/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 Past Anesthesia/Blood Transfusion Reactions: No Reported Reaction Date of Last Stent Placement:: 10/2015 Past Psychological History: No Psychological Hx Reported Additional Psychological History / Comment(s): Patient has been a lifelong nonsmoker. He denies any medical marijuana, marijuana, street drug use. He denies any alcohol abuse. Patient lives at home with his . Smoking Status: Never smoker Past Alcohol Use History: None Reported Additional Past Alcohol Use History / Comment(s): Patient has been a lifelong nonsmoker. He denies any medical marijuana, marijuana, street drug use. He denies any alcohol abuse. Past Drug Use History: None Reported - Past Family History Father Family Medical History: COPD Additional Family Medical History / Comment(s): AT AGE 64- EMPHYSEMA([facility]) Mother Family Medical History: Diabetes Mellitus, Hypertension Additional Family Medical History / Comment(s): LUPUS, LEG AMPUTATED. MOM IN HER 60'S Medications and Allergies Home Medications Medication Instructions Recorded Confirmed Type Cholecalciferol [Vitamin D3 (25 5,000 unit PO HS 04/22/15 08/08/20 History Mcg = 1000 Iu)] allopurinoL [Zyloprim] 100 mg PO DAILY 04/22/15 08/08/20 History Fish Oil/Dha/Epa [Fish Oil 1,200 1 cap PO DAILY 09/06/15 08/08/20 History mg Fish Oil] Ferrous Sulfate [Iron (65 MG 325 mg PO DAILY 10/23/15 08/08/20 History Elemental)] amLODIPine [Norvasc] 5 mg PO BID 08/27/17 08/08/20 History calcitrioL [Calcitriol] 0.25 mcg PO DAILY 12/16/18 08/08/20 History Atorvastatin [Lipitor] 20 mg PO HS 12/09/19 08/08/20 History HYDROcodone/APAP 10-325MG [[place] 1 tab PO TID PRN #9 tab 12/16/19 08/08/20 Rx 10-325] Aspirin EC [Ecotrin Low Dose] 81 mg PO DAILY 08/08/20 08/08/20 History Furosemide [Lasix] 40 mg PO DAILY 08/08/20 08/08/20 History Gabapentin [Neurontin] 300 mg PO TID 08/08/20 08/08/20 History Insulin Glargine,Hum.rec.anlog 20 unit SQ HS 08/08/20 08/08/20 History [Lantus Solostar] Insulin Glargine,Hum.rec.anlog 30 unit SQ DAILY 08/08/20 08/08/20 History [Lantus Solostar] Magnesium 250 mg PO DAILY 08/08/20 08/08/20 History Pantoprazole [Protonix] 40 mg PO DAILY 08/08/20 08/08/20 History Simvastatin 40 mg PO DAILY 08/08/20 08/08/20 History Sodium Polystyrene Sulfonate 1 tbsp PO Q48H 08/08/20 08/08/20 History hydrALAZINE HCL [Apresoline] 100 mg PO TID 08/08/20 08/08/20 History Allergies Allergy/AdvReac Type Severity Reaction Status Date / Time aspirin [From Anacin] Allergy Rash/Hives Verified 08/08/20 17:10 (Dulce brand ok) sulfamethoxazole AdvReac affects Verified 08/08/20 17:03 [From Bactrim] kidneys trimethoprim [From Bactrim] AdvReac Unknown Verified 08/08/20 17:03 Physical Exam Vitals: Vital Signs Temp Pulse Pulse Resp BP BP Pulse Ox 08/09/20 05:21 98.1 F 67 20 136/61 98 08/08/20 23:52 100.1 F H 96 20 132/57 96 08/08/20 21:30 99.0 F 105 H 18 160/62 95 08/08/20 18:54 130/58 08/08/20 18:33 98.2 F 96 18 193/77 95 08/08/20 17:57 90 08/08/20 17:55 98.4 F 90 18 153/69 97 08/08/20 17:48 77 08/08/20 17:00 90 16 153/69 97 08/08/20 16:29 76 18 150/72 97 08/08/20 15:23 98.4 F 65 18 127/61 97 Intake and Output 08/08/20 08/09/20 08/09/20 22:59 06:59 14:59 Intake Total 75 385 Balance 75 385 Intake: IV 75 Sodium Chloride 0.9% 1, 75 000 ml @ 75 mls/hr IV . [id number] [facility] Rx#:[id number] Intake, IV Titration 385 Amount Sodium Chloride 0.9% 1, 385 000 ml @ 75 mls/hr IV . [id number] [facility] Rx#:[id number] Other: Weight 147.5 kg 146 kg Results - Lab Results Most recent lab results Calcium 8.9 mg/dL (8.4-10.2) 08/09/20 06:22 Magnesium 1.7 mg/dL (1.6-2.3) 08/09/20 06:22 08/08/20 16:22 08/09/20 06:22 Assessment and Plan Plan: Assessment: 1. Chronic kidney disease stage IV secondary to nephrosclerosis and diabetic kidney disease. Creatinine 3.4 in June 2020. He is following with vascular surgery outpatien for AV fistula creation. Creatinine 3.48 today. 2. Hyperkalemia secondary to chronic kidney disease. He's not on ACEi/ARB or aldactone. Improved with medical management. Rule out urinary retention. 3. Diabetes mellitus. 4. Hypertension with chronic kidney disease. Controlled. 5. Chronic kidney disease mineral bone disease maintained on calcitriol. 6. Anemia of chronic kidney disease. Rule out deficiency. Plan: Hep-Lock IV fluids. Resume Lasix 40 mg orally once daily. Low potassium diet. Bladder scan to rule out urinary retention. Check renal ultrasound. Repeat potassium level this evening. Follow-up outpatient in the next 7-10 days. Thank you for the consultation. I will continue to follow the patient with you during his hospital stay.
[2020-08-09] MEDS ORDERED: bisacodyL 10 MG SUPP RECTAL STA (11:59)
[2020-08-09] MEDS ORDERED: LACTULOSE 20 GM/30 ML CUP PO ONE (11:59)
--- NOTE | 2020-08-09 12:08 | US ---
EXAMINATION TYPE: US kidneys/renal and bladder DATE OF EXAM: 08/09/2020 COMPARISON: US & CT CLINICAL HISTORY: kenan. EXAM MEASUREMENTS: Right Kidney: 14.0 x 6.3 x 5.8 cm Left Kidney: 10.2 x 5.2 x 5.9 cm Kidneys are echogenic and hard to visualize bilaterally. Right Kidney: lobular contour, no hydro. Left Kidney: cyst measures 2.9 x 2.6 x 2.6 cm Bladder: wnl Bilateral Jets seen: No Kidneys show similar appearance to previous exam IMPRESSION: Findings suggest medical renal disease. No hydronephrosis.
[2020-08-09 12:18] LABS: Glucose,Whole Blood 143 mg/dL (75-99)
[2020-08-09] MEDS: INSULIN DETEMIR (LEVEMIR) 100 UNIT/ML SYR SQ SCH ×2 (12:27→20:46)
[2020-08-09] MEDS: FUROSEMIDE 40 MG TAB PO SCH (12:42)
[2020-08-09 16:57] LABS: Glucose,Whole Blood 119 mg/dL (75-99)
[2020-08-09] MEDS ORDERED: INSULIN REGULAR 100 UNIT/ML VIAL IV ONE (17:34)
[2020-08-09] MEDS ORDERED: DEXTROSE 50% SYRINGE 50 ML IVP STA (17:35)
[2020-08-09] MEDS: cloNIDine HCL 0.1 MG TAB PO SCH ×2 (17:54→20:20)
[2020-08-09] MEDS: CHOLECALCIFEROL 25 MCG (1000 IU) TABLET PO SCH (20:20)
[2020-08-09] MEDS: ACETAMINOPHEN TAB 325 MG TAB PO PRN (20:21)
[2020-08-09 20:27] LABS: Glucose,Whole Blood 169 mg/dL (75-99)
--- NOTE | 2020-08-09 21:17 | P.HPIM ---
History of Present Illness H&P Date: 08/09/20 Chief Complaint: Hypertension History of presenting complaint: Patient is a 69-year-old male with a past medical history of chronic venous stasis ulcers with recurrent cellulitis of the lower extremities, sleep apnea, hypertension, diabetes mellitus type 2 and chronic kidney disease stage IV, peptic ulcer disease. Patient was being followed at the wound care center per Dr. Campuzano. He is unsure why he lost to follow-up. Currently his does wound dressings at home. Patient was sent in after does discomfort his potassium was running high. Patient always a bowel movement every 2 or 3 days. On this occasion with no bowel movement for last 9 days. No nausea vomiting. She will to 8. No fever no chills. No abdominal pain or distention. Kidney function has been worsening. Pretty much uses a wheelchair at her baseline. Review of systems: GEN.: Tired EYES: None HEENT: None NECK: None RESPIRATORY: None CARDIOVASCULAR: None GASTROINTESTINAL: As above GENITOURINARY: None MUSCULOSKELETAL: Joint pains LYMPHATICS: None HEMATOLOGICAL: None PSYCHIATRY: None NEUROLOGICAL: None DERMATOLOGICAL: Chronic left lower extremity wound being followed in the wound center Past medical history to include: chronic left lower extremity wound with cellulitis, hypertension with chronic kidney disease, morbid obesity, COPD, diabetes, hypertension, osteoarthritis, CKD stage III, diabetic peripheral neuropathy, obstructive sleep apnea uses CPAP, chronic recurrent umbilical hernia, mild cognitive impairment, baseline gait dysfunction-mainly uses a wheelchair. On examination: VITAL SIGNS: 98.4, 65, 18, 127/61, 97% room air GENERAL APPEARANCE: Laying in bed, awake HEENT: Normal external appearance of nose and ear. Oral cavity normal EYES: Pupils equal. Conjunctiva pale NECK: JVD not raised. Mass not palpable. RESPIRATORY: Respiratory effort normal. Lungs clear to auscultation. CARDIOVASCULAR: First and second sounds normal. No edema. ABDOMEN: Soft. Liver and spleen not palpable. No tenderness. No mass palpable. PSYCHIATRY: Alert and oriented x3. Mood and affect normal. DERMATOLOGICAL: Chronic Left lower extremity wound-currently in the dressing INVESTIGATIONS, reviewed in the clinical context: August 09-potassium 5.1 bun 97 creatinine 3.48 glucose 33 White count 9.9 hemoglobin 9.2 platelets 288 potassium 6.4 bun 93 creatinine 3 .93 Coronavirus [PCR]-not detected EKG tracing personally reviewed by me-normal sinus rhythm Previous labs: Creatinine 2.22 on December 2019 Assessment: -Severe hyperkalemia from underlying chronic kidney disease worsening -Acute on chronic kidney disease stage 4 from diabetic kidney disease and nephr osclerosis -Chronic duodenal ulcer and antral gastritis -Hypertension with chronic kidney disease -Morbid obesity BMI 46.2 -COPD -Diabetes mellitus type 2, uncontrolled with hypoglycemia -Essential hypertension -Primary osteoarthritis -Chronic kidney disease stage 3 -Diabetic peripheral neuropathy -Chronic lower extremity wound for which she follows [facility]. -Obstructive sleep apnea uses CPAP -Chronic umbilical hernia -Mild cognitive impairment -Chronic gait dysfunction sometimes uses a walker otherwise mainly a chair Plan: Patient receive dextrose insulin sodium bicarb in the ER. Subsequently Kayexalate. Renal diet. Home medications resumed. Nephrology consulted. Telemetry. Follow lites closely. Wound nurse be consulted. Discussed with the patient that he can follow with Dr. Campuzano of the wound care center with whom he previously followed. Will DC the evening dose of Levemir. Care was discussed with the patient. Questions answered. Past Medical History Past Medical History: Heart Failure, COPD, Diabetes Mellitus, Hyperlipidemia, Hypertension, Osteoarthritis (OA), Pneumonia, Renal Disease, Sleep Apnea/CPAP/BIPAP, Vascular Disorder Additional Past Medical History / Comment(s): IDDM type II, 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, chronic venous ulcer l eft anterior lower leg-treated in [facility], sepsis from L leg wound, chronic anemia, hyperkalemia, CKD-spouse states his kidneys function at 28%, DELVIN with Cpap, possible starting of dementia, confusion at times at night, bilateral lower leg varicosities, umbilical hernia, Hpylori, ambulates very little with walker and mostly wheelchair bound, recent UTI History of Any Multi-Drug Resistant Organisms: ESBL, VRE Date of last positivie culture/infection: 11/28/19 ESBL 12/13/17 VRE MDRO Source:: ESBL URINE VRE LEG Past Surgical History: Appendectomy, Cholecystectomy, Heart Catheterization With Stent Additional Past Surgical History / Comment(s): Bilateral cataract removals, erik ticular varicosity surgery, PICC line-removed. Past Anesthesia/Blood Transfusion Reactions: No Reported Reaction Date of Last Stent Placement:: 10/2015 Past Psychological History: No Psychological Hx Reported Additional Psychological History / Comment(s): Patient has been a lifelong nonsmoker. He denies any medical marijuana, marijuana, street drug use. He denies any alcohol abuse. Patient lives at home with his . Smoking Status: Never smoker Past Alcohol Use History: None Reported Additional Past Alcohol Use History / Comment(s): Patient has been a lifelong nonsmoker. He denies any medical marijuana, marijuana, street drug use. He denies any alcohol abuse. Past Drug Use History: None Reported - Past Family History Father Family Medical History: COPD Additional Family Medical History / Comment(s): AT AGE 64- EMPHYSEMA([facility]) Mother Family Medical History: Diabetes Mellitus, Hypertension Additional Family Medical History / Comment(s): LUPUS, LEG AMPUTATED. MOM IN HER 60'S Medications and Allergies Home Medications Medication Instructions Recorded Confirmed Type Cholecalciferol [Vitamin D3 (25 5,000 unit PO HS 04/22/15 08/08/20 History Mcg = 1000 Iu)] allopurinoL [Zyloprim] 100 mg PO DAILY 04/22/15 08/08/20 History Fish Oil/Dha/Epa [Fish Oil 1,200 1 cap PO DAILY 09/06/15 08/08/20 History mg Fish Oil] Ferrous Sulfate [Iron (65 MG 325 mg PO DAILY 10/23/15 08/08/20 History Elemental)] amLODIPine [Norvasc] 5 mg PO BID 08/27/17 08/08/20 History calcitrioL [Calcitriol] 0.25 mcg PO DAILY 12/16/18 08/08/20 History Atorvastatin [Lipitor] 20 mg PO HS 12/09/19 08/08/20 History HYDROcodone/APAP 10-325MG [[place] 1 tab PO TID PRN #9 tab 12/16/19 08/08/20 Rx 10-325] Aspirin EC [Ecotrin Low Dose] 81 mg PO DAILY 08/08/20 08/08/20 History Furosemide [Lasix] 40 mg PO DAILY 08/08/20 08/08/20 History Gabapentin [Neurontin] 300 mg PO TID 08/08/20 08/08/20 History Insulin Glargine,Hum.rec.anlog 20 unit SQ HS 08/08/20 08/08/20 History [Lantus Solostar] Insulin Glargine,Hum.rec.anlog 30 unit SQ DAILY 08/08/20 08/08/20 History [Lantus Solostar] Magnesium 250 mg PO DAILY 08/08/20 08/08/20 History Pantoprazole [Protonix] 40 mg PO DAILY 08/08/20 08/08/20 History Simvastatin 40 mg PO DAILY 08/08/20 08/08/20 History Sodium Polystyrene Sulfonate 1 tbsp PO Q48H 08/08/20 08/08/20 History hydrALAZINE HCL [Apresoline] 100 mg PO TID 08/08/20 08/08/20 History Allergies Allergy/AdvReac Type Severity Reaction Status Date / Time aspirin [From Anacin] Allergy Rash/Hives Verified 08/08/20 17:10 (Dulce brand ok) sulfamethoxazole AdvReac affects Verified 08/08/20 17:03 [From Bactrim] kidneys trimethoprim [From Bactrim] AdvReac Unknown Verified 08/08/20 17:03 Physical Exam Vitals: Vital Signs Temp Pulse Pulse Resp BP BP Pulse Ox 08/09/20 05:21 98.1 F 67 20 136/61 98 08/08/20 23:52 100.1 F H 96 20 132/57 96 08/08/20 21:30 99.0 F 105 H 18 160/62 95 08/08/20 18:54 130/58 08/08/20 18:33 98.2 F 96 18 193/77 95 08/08/20 17:57 90 08/08/20 17:55 98.4 F 90 18 153/69 97 08/08/20 17:48 77 08/08/20 17:00 90 16 153/69 97 08/08/20 16:29 76 18 150/72 97 08/08/20 15:23 98.4 F 65 18 127/61 97 Intake and Output 08/08/20 08/09/20 08/09/20 22:59 06:59 14:59 Intake Total 75 385 Balance 75 385 Intake: IV 75 Sodium Chloride 0.9% 1, 75 000 ml @ 75 mls/hr IV . [id number] [facility] Rx#:[id number] Intake, IV Titration 385 Amount Sodium Chloride 0.9% 1, 385 000 ml @ 75 mls/hr IV . [id number] [facility] Rx#:[id number] Other: Weight 147.5 kg 146 kg Results CBC & Chem 7: 08/08/20 16:22 08/09/20 15:56 Labs: Abnormal Lab Results - Last 24 Hours (Table) 08/08/20 08/08/20 08/08/20 Range/Units 16:22 16:22 20:47 RBC 2.94 L (4.30-5.90) m/uL Hgb 9.2 L (13.0-17.5) gm/dL Hct 28.2 L (39.0-53.0) % Sodium 135 L (137-145) mmol/L Potassium 6.4 H* (3.5-5.1) mmol/L BUN 93 H (9-20) mg/dL Creatinine 3.93 H (0.66-1.25) mg/dL Glucose (74-99) mg/dL POC Glucose (mg/dL) 124 H (75-99) mg/dL 08/08/20 08/09/20 08/09/20 Range/Units 22:47 06:13 06:14 RBC (4.30-5.90) m/uL Hgb (13.0-17.5) gm/dL Hct (39.0-53.0) % Sodium (137-145) mmol/L Potassium 5.7 H (3.5-5.1) mmol/L BUN (9-20) mg/dL Creatinine (0.66-1.25) mg/dL Glucose (74-99) mg/dL POC Glucose (mg/dL) 39 L 39 L (75-99) mg/dL 08/09/20 08/09/20 Range/Units 06:22 06:31 RBC (4.30-5.90) m/uL Hgb (13.0-17.5) gm/dL Hct (39.0-53.0) % Sodium 136 L (137-145) mmol/L Potassium (3.5-5.1) mmol/L BUN 97 H (9-20) mg/dL Creatinine 3.48 H (0.66-1.25) mg/dL Glucose 33 L* (74-99) mg/dL POC Glucose (mg/dL) 49 L (75-99) mg/dL Thrombosis Risk Factor Assmnt - Choose All That Apply Each Factor Represents 1 point: Obesity (BMI >25) Each Risk Factor Represents 2 Points: Age 61-74 years Thrombosis Risk Factor Assessment Total Risk Factor Score: 3 Thrombosis Risk Factor Assessment Level: Moderate Risk
[2020-08-09 23:18] LABS: % Iron Saturation 16.26 (15.00-50.00)
[2020-08-09 23:28] LABS: Ferritin 140.5 ng/mL (22.0-322.0)
[2020-08-10 03:01] LABS: Glucose,Whole Blood 153 mg/dL (75-99)
[2020-08-10 06:22] LABS: Glucose,Whole Blood 94 mg/dL (75-99)
[2020-08-10] MEDS: PANTOPRAZOLE 40 MG TABLET PO SCH (06:40)
[2020-08-10 07:26] LABS: Calcium 9.3 mg/dL (8.4-10.2); Potassium 5.2 mmol/L (3.5-5.1)
[2020-08-10] MEDS: FUROSEMIDE 40 MG TAB PO SCH (09:08)
[2020-08-10] MEDS: amLODIPine 5 MG TAB PO SCH ×2 (09:08→20:36)
[2020-08-10] MEDS: hydrALAZINE HCL 50 MG TAB PO SCH ×3 (09:08→20:36)
[2020-08-10] MEDS: allopurinoL 100 MG TAB PO SCH (09:08)
[2020-08-10] MEDS: cloNIDine HCL 0.1 MG TAB PO SCH ×3 (09:08→20:38)
[2020-08-10] MEDS: ASPIRIN 81 MG PO SCH (09:09)
[2020-08-10] MEDS: GABAPENTIN 300 MG CAP PO SCH ×3 (09:09→20:35)
[2020-08-10] MEDS: INSULIN DETEMIR (LEVEMIR) 100 UNIT/ML SYR SQ SCH (09:09)
[2020-08-10] MEDS: FERROUS SULFATE 325 MG TAB PO SCH (09:09)
[2020-08-10] MEDS: NON FORMULARY DRUG (Fish Oil/Dha/Epa [Fish Oil 1,200 Mg Fish Oil] 1 EACH Capsule) PO SCH (09:09)
[2020-08-10] MEDS: ATORVASTATIN 20 MG TAB PO SCH ×2 (09:09→20:36)
[2020-08-10 11:59] LABS: Glucose,Whole Blood 244 mg/dL (75-99)
--- NOTE | 2020-08-10 15:30 | P.PN ---
Subjective Progress Note Date: 08/10/20 Follow-up for acute kidney injury. Objective - Vital Signs Vital signs: Vital Signs Temp 98.5 F 08/10/20 08:00 Pulse 78 08/10/20 08:00 Resp 16 08/10/20 08:00 BP 156/104 08/10/20 08:00 Pulse Ox 98 08/10/20 08:00 Intake & Output 08/09/20 08/10/20 08/10/20 18:59 06:59 18:59 Intake Total 720 250 Output Total 1200 2000 Balance -480 -2000 250 Weight 146 kg 148 kg Intake: Oral 720 250 Output: Urine 1200 2000 Uretheral (Maria) 1200 Other: Voiding Method Indwelling Catheter Indwelling Catheter # Bowel Movements 1 - Exam No acute distress S1-S2 heard Lungs clear Abdomen soft Trace edema - Labs CBC & Chem 7: 08/08/20 16:22 08/10/20 06:06 Labs: Abnormal Lab Results - Last 24 Hours (Table) 08/09/20 08/09/20 08/09/20 Range/Units 06:22 15:56 16:55 Potassium 5.9 H (3.5-5.1) mmol/L BUN (9-20) mg/dL Creatinine (0.66-1.25) mg/dL POC Glucose (mg/dL) 119 H (75-99) mg/dL Iron 40 L (65-175) ug/dL 08/09/20 08/09/20 08/10/20 Range/Units 20:25 20:49 02:59 Potassium 5.4 H (3.5-5.1) mmol/L BUN (9-20) mg/dL Creatinine (0.66-1.25) mg/dL POC Glucose (mg/dL) 169 H 153 H (75-99) mg/dL Iron (65-175) ug/dL 08/10/20 08/10/20 Range/Units 06:06 11:53 Potassium 5.2 H (3.5-5.1) mmol/L BUN 91 H (9-20) mg/dL Creatinine 3.68 H (0.66-1.25) mg/dL POC Glucose (mg/dL) 244 H (75-99) mg/dL Iron (65-175) ug/dL Assessment and Plan Assessment: #1 acute kidney injury secondary to hemodynamics. 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 #3 chronic kidney disease stage IV secondary to diabetic kidney disease Baseline creatinine 3.4 MG per DL. #5 anemia with chronic kidney disease #6 hypertension with chronic kidney disease Plan: #1 creatinine slight creep, suspected documented hypotensive episodes. #2 continue with Lasix 40 mg by mouth daily. #3 monitor and adjust antihypertensive medications with the goal of systolic blood pressure between 120 to 1:30. Avoid hypotensive episodes. #4 labs in the morning
[2020-08-10 17:12] LABS: Glucose,Whole Blood 170 mg/dL (75-99)
[2020-08-10 20:30] LABS: Glucose,Whole Blood 277 mg/dL (75-99)
[2020-08-10] MEDS: INSULIN ASPART (NovoLOG) 100 UNIT/ML VIAL SQ SCH (20:36)
[2020-08-10] MEDS: CHOLECALCIFEROL 25 MCG (1000 IU) TABLET PO SCH (20:36)
--- NOTE | 2020-08-10 21:44 | P.PN ---
Progress Note - Text Progress Note Date: 08/10/20 Chief Complaint: Hypertension History of presenting complaint: Patient is a 69-year-old male with a past medical history of chronic venous stasis ulcers with recurrent cellulitis of the lower extremities, sleep apnea, hypertension, diabetes mellitus type 2 and chronic kidney disease stage IV, peptic ulcer disease. Patient was being followed at the wound care center per Dr. Campuzano. He is unsure why he lost to follow-up. Currently his does wound dressings at home. Patient was sent in after does discomfort his potassium was running high. Patient always a bowel movement every 2 or 3 days. On this occasion with no bowel movement for last 9 days. No nausea vomiting. She will to 8. No fever no chills. No abdominal pain or distention. Kidney function has been worsening. Pretty much uses a wheelchair at her baseline. Admitted with severe hyperkalemia and worsening renal function. Patient had a good response to laxative had bowel movements. Today-potassium is better at 5.2. Oral intake fair. Sitting up in bed. Review of systems: Was done for constitutional, cardiovascular, GI, pulmonary. relevant finding as above Active Medications Acetaminophen (Acetaminophen Tab 325 Mg Tab) 650 mg PO Q6HR PRN PRN Reason: Fever and/ or Pain Last Admin: 08/09/20 20:21 Dose: 650 mg Documented by: Hydrocodone Bitart/Acetaminophen (Hydrocodone/Apap 10-325mg 1 Each Tab) 1 each PO TID PRN PRN Reason: Pain Allopurinol (Allopurinol 100 Mg Tab) 100 mg PO DAILY [facility] Last Admin: 08/10/20 09:08 Dose: 100 mg Documented by: Amlodipine Besylate (Amlodipine 5 Mg Tab) 5 mg PO BID [facility] Last Admin: 08/10/20 20:36 Dose: 5 mg Documented by: Aspirin (Aspirin 81 Mg) 81 mg PO DAILY [facility] Last Admin: 08/10/20 09:09 Dose: 81 mg Documented by: Atorvastatin Calcium (Atorvastatin 20 Mg Tab) 20 mg PO HS [facility] Last Admin: 08/10/20 20:36 Dose: 20 mg Documented by: Atorvastatin Calcium (Atorvastatin 20 Mg Tab) 20 mg PO DAILY [facility] Last Admin: 08/10/20 09:09 Dose: 20 mg Documented by: Calcitriol (Calcitriol 0.25 Mcg Cap) 0.25 mcg PO DAILY [facility] Last Admin: 08/10/20 09:08 Dose: 0.25 mcg Documented by: Cholecalciferol (Cholecalciferol 25 Mcg (1000 Iu) Tablet) 125 mcg PO HS [facility] Last Admin: 08/10/20 20:36 Dose: 125 mcg Documented by: Clonidine (Clonidine Hcl 0.1 Mg Tab) 0.1 mg PO TID [facility] Last Admin: 08/10/20 20:38 Dose: 0.1 mg Documented by: Ferrous Sulfate (Ferrous Sulfate 325 Mg Tab) 325 mg PO DAILY [facility] Last Admin: 08/10/20 09:09 Dose: 325 mg Documented by: Furosemide (Furosemide 40 Mg Tab) 40 mg PO DAILY [facility] Last Admin: 08/10/20 09:08 Dose: 40 mg Documented by: Gabapentin (Gabapentin 300 Mg Cap) 300 mg PO TID [facility] Last Admin: 08/10/20 20:35 Dose: 300 mg Documented by: Hydralazine HCl (Hydralazine Hcl 50 Mg Tab) 100 mg PO TID [facility] Last Admin: 08/10/20 20:36 Dose: 100 mg Documented by: Insulin Aspart (Insulin Aspart (Novolog) 100 Unit/Ml Vial) 0 unit SQ ACHS [facility]; Protocol Last Admin: 08/10/20 20:36 Dose: 7 unit Documented by: Insulin Detemir (Insulin Detemir (Levemir) 100 Unit/Ml Syr) 30 unit SQ DAILY [facility] Last Admin: 08/10/20 09:09 Dose: Not Given Documented by: Lactulose (Lactulose 20 Gm/30 Ml Cup) 15 gm PO TID PRN PRN Reason: Constipation Last Admin: 08/09/20 20:20 Dose: 15 gm Documented by: Multi-Ingred Cream/Lotion/Oil/Oint (Hydrophilic Cream 180 Gm Tube) 1 applic TOPICAL DAILY [facility] Naloxone HCl (Naloxone 0.4 Mg/Ml 1 Ml Vial) 0.2 mg IV Q2M PRN PRN Reason: Opioid Reversal Non-Formulary Medication (Fish Oil/Dha/Epa [Fish Oil 1,200 Mg Fish Oil]) 1 cap PO DAILY [facility] Last Admin: 08/10/20 09:09 Dose: Not Given Documented by: Pantoprazole Sodium (Pantoprazole 40 Mg Tablet) 40 mg PO DAILY@0730 [facility] Last Admin: 08/10/20 06:40 Dose: 40 mg Documented by: Past medical history to include: chronic left lower extremity wound with cellulitis, hypertension with chronic kidney disease, morbid obesity, COPD, diabetes, hypertension, osteoarthritis, CKD stage III, diabetic peripheral neuropathy, obstructive sleep apnea uses CPAP, chronic recurrent umbilical hernia, mild cognitive impairment, baseline gait dysfunction-mainly uses a wheelchair. On examination: VITAL SIGNS: 98.5, 78, 16, 1 56 x 1 04, 98% on 3 L GENERAL APPEARANCE: Sitting up in bed, awake HEENT: Normal external appearance of nose and ear. Oral cavity normal EYES: Pupils equal. Conjunctiva pale NECK: JVD not raised. Mass not palpable. RESPIRATORY: Respiratory effort normal. Lungs clear to auscultation. CARDIOVASCULAR: First and second sounds normal. No edema. ABDOMEN: Soft. Liver and spleen not palpable. No tenderness. No mass palpable. PSYCHIATRY: Alert and oriented x3. Mood and affect normal. DERMATOLOGICAL: Chronic Left lower extremity wound-currently in the dressing INVESTIGATIONS, reviewed in the clinical context: August 10: Potassium 5.2 creatinine 3.68 bun 91 August 09 fifth-potassium 5.1 bun 97 creatinine 3.48 glucose 33 White count 9.9 hemoglobin 9.2 platelets 288 potassium 6.4 bun 93 creatinine 3.93 Coronavirus [PCR]-not detected EKG tracing personally reviewed by me-normal sinus rhythm Previous labs: Creatinine 2.22 on December 2019 Assessment: -Severe hyperkalemia from underlying chronic kidney disease/type IV RTA- improving -Acute on chronic kidney disease stage 4 from diabetic kidney disease and nephrosclerosis -Chronic duodenal ulcer and antral gastritis -Hypertension with chronic kidney disease -Morbid obesity BMI 46.2 -COPD -Diabetes mellitus type 2, uncontrolled with hypoglycemia -Essential hypertension -Primary osteoarthritis -Chronic kidney disease stage 3 -Diabetic peripheral neuropathy -Chronic lower extremity wound for which she [facility] -Obstructive sleep apnea uses CPAP -Chronic umbilical hernia -Mild cognitive impairment -Chronic gait dysfunction sometimes uses a walker otherwise mainly a chair Plan: We'll increase morning dose of Levemir to 40 units. Also add scheduled 6 units of NovoLog with meals. Other medications to continue. Discussed with patient.
[2020-08-11] MEDS: PANTOPRAZOLE 40 MG TABLET PO SCH (06:45)
[2020-08-11] MEDS ORDERED: INSULIN DETEMIR (LEVEMIR) 100 UNIT/ML SYR SQ SCH (07:00)
[2020-08-11 07:34] LABS: Glucose,Whole Blood 142 mg/dL (75-99)
[2020-08-11 07:47] LABS: Calcium 9.6 mg/dL (8.4-10.2)
[2020-08-11] MEDS: ASPIRIN 81 MG PO SCH (08:12)
[2020-08-11] MEDS: hydrALAZINE HCL 50 MG TAB PO SCH ×3 (08:12→22:25)
[2020-08-11] MEDS: allopurinoL 100 MG TAB PO SCH (08:12)
[2020-08-11] MEDS: ATORVASTATIN 20 MG TAB PO SCH ×2 (08:12→22:26)
[2020-08-11] MEDS: amLODIPine 5 MG TAB PO SCH ×2 (08:12→22:25)
[2020-08-11] MEDS: FERROUS SULFATE 325 MG TAB PO SCH (08:12)
[2020-08-11] MEDS: FUROSEMIDE 40 MG TAB PO SCH (08:12)
[2020-08-11] MEDS: cloNIDine HCL 0.1 MG TAB PO SCH ×3 (08:12→22:25)
[2020-08-11] MEDS: INSULIN ASPART (NovoLOG) 100 UNIT/ML VIAL SQ SCH ×7 (08:13→22:20)
[2020-08-11] MEDS: GABAPENTIN 300 MG CAP PO SCH ×3 (08:14→22:25)
[2020-08-11 12:04] LABS: Glucose,Whole Blood 193 mg/dL (75-99)
--- NOTE | 2020-08-11 13:17 | P.CONS ---
History of Present Illness - Reason for Consult Consult date: 08/11/20 Wound care - History of Present Illness This is a 69 year old patient who is known to the wound care center with a nonhealing ulceration to the sacrum and nonhealing ulceration to the left lower extremity medial aspect. Patient has had the nonhealing ulceration to the left lower leg for many years now. He has been treated repeatedly in the wound care center at this time we are utilizing triad to the site. There is no open ulcerations noted no drainage to the site. Sacral ulceration is a stage II pressure ulcer with fatty layer exposure wound edges are attached to the wound base noted undermining noted. Patient states that the ulceration has been there for approximately greater than 6 months. he has not been utilizing any products to the site. Wound measures approximately 3 x 2.5 x 0.1. Review Of Systems: Constitutional: No fever, no chills, no night sweats. No weight change. No weakness, fatigue or lethargy. No daytime sleepiness. Integumentary:reports wounds, no lesions. No rash or pruritus. No unusual bruising. No change in hair or nails. Physical exam: General Appearance: Alert, cooperative, no distress, appears stated age. Skin: See HPI all other Skin color, texture, tugor normal, no rashes or lesions. Neurologic: Alert oriented x3 Assessment/plan: 1. Stage II pressure ulcer sacrum with fat layer exposure: Apply triad to the site daily. Utilize a waffle cushion for sitting. Patient may return to the wound care center for continuation of care we would be happy to see him. 2. Nonhealing ulceration left lower leg medial aspect with fatty layer exposure-resolved. Continue to use triad daily rolled gauze Pastor wrap to the site. 3. Diabetes was skin ulcer as noted above Thank you kindly for the consultation any questions please contact the wound care center DNP note has been reviewed and discussed with Dr. Foster and the impression and plan of care has been directed as dictated. 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 Past Anesthesia/Blood Transfusion Reactions: No Reported Reaction Date of Last Stent Placement:: 10/2015 Past Psychological History: No Psychological Hx Reported Additional Psychological History / Comment(s): Patient has been a lifelong nons moker. He denies any medical marijuana, marijuana, street drug use. He denies any alcohol abuse. Patient lives at home with his . Smoking Status: Never smoker Past Alcohol Use History: None Reported Additional Past Alcohol Use History / Comment(s): Patient has been a lifelong nonsmoker. He denies any medical marijuana, marijuana, street drug use. He denies any alcohol abuse. Past Drug Use History: None Reported - Past Family History Father Family Medical History: COPD Additional Family Medical History / Comment(s): AT AGE 64- EMPHYSEMA(SMOKER) Mother Family Medical History: Diabetes Mellitus, Hypertension Additional Family Medical History / Comment(s): LUPUS, LEG AMPUTATED. MOM IN HER 60'S Medications and Allergies Home Medications Medication Instructions Recorded Confirmed Type Cholecalciferol [Vitamin D3 (25 5,000 unit PO HS 04/22/15 08/08/20 History Mcg = 1000 Iu)] allopurinoL [Zyloprim] 100 mg PO DAILY 04/22/15 08/08/20 History Fish Oil/Dha/Epa [Fish Oil 1,200 1 cap PO DAILY 09/06/15 08/08/20 History mg Fish Oil] Ferrous Sulfate [Iron (65 MG 325 mg PO DAILY 10/23/15 08/08/20 History Elemental)] amLODIPine [Norvasc] 5 mg PO BID 08/27/17 08/08/20 History calcitrioL [Calcitriol] 0.25 mcg PO DAILY 12/16/18 08/08/20 History Atorvastatin [Lipitor] 20 mg PO HS 12/09/19 08/08/20 History HYDROcodone/APAP 10-325MG [[place] 1 tab PO TID PRN #9 tab 12/16/19 08/08/20 Rx 10-325] Aspirin EC [Ecotrin Low Dose] 81 mg PO DAILY 08/08/20 08/08/20 History Furosemide [Lasix] 40 mg PO DAILY 08/08/20 08/08/20 History Gabapentin [Neurontin] 300 mg PO TID 08/08/20 08/08/20 History Insulin Glargine,Hum.rec.anlog 20 unit SQ HS 08/08/20 08/08/20 History [Lantus Solostar] Insulin Glargine,Hum.rec.anlog 30 unit SQ DAILY 08/08/20 08/08/20 History [Lantus Solostar] Magnesium 250 mg PO DAILY 08/08/20 08/08/20 History Pantoprazole [Protonix] 40 mg PO DAILY 08/08/20 08/08/20 History Simvastatin 40 mg PO DAILY 08/08/20 08/08/20 History Sodium Polystyrene Sulfonate 1 tbsp PO Q48H 08/08/20 08/08/20 History hydrALAZINE HCL [Apresoline] 100 mg PO TID 08/08/20 08/08/20 History Allergies Allergy/AdvReac Type Severity Reaction Status Date / Time aspirin [From Anacin] Allergy Rash/Hives Verified 08/08/20 17:10 ([place]ulce brand ok) sulfamethoxazole AdvReac affects Verified 08/08/20 17:03 [From Bactrim] kidneys trimethoprim [From Bactrim] AdvReac Unknown Verified 08/08/20 17:03 Physical Exam Vitals: Vital Signs Temp Pulse Resp BP Pulse Ox 08/11/20 08:00 97.4 F L 58 L 16 133/61 96 08/11/20 03:53 50 L 16 125/49 97 08/11/20 01:48 54 L 16 08/10/20 23:24 98.1 F 54 L 16 118/50 97 08/10/20 20:00 98.7 F 64 18 129/76 97 08/10/20 16:00 98.0 F 60 16 156/65 98 08/10/20 14:00 64 16 Intake and Output 08/10/20 08/11/20 08/11/20 22:59 06:59 14:59 Intake Total 375 120 Output Total 350 850 Balance 25 -850 120 Intake: Oral 375 120 Output: Urine 350 850 Other: Voiding Method Indwelling Catheter Indwelling Catheter Indwelling Catheter # Bowel Movements 1 Results CBC & Chem 7: 08/08/20 16:22 08/11/20 06:40 Labs: Abnormal Lab Results - Last 24 Hours (Table) 08/10/20 08/10/20 08/11/20 Range/Units 17:11 20:29 06:40 Sodium 136 L (137-145) mmol/L BUN 96 H (9-20) mg/dL Creatinine 3.53 H (0.66-1.25) mg/dL Glucose 136 H (74-99) mg/dL POC Glucose (mg/dL) 170 H 277 H (75-99) mg/dL 08/11/20 08/11/20 Range/Units 07:33 12:03 Sodium (137-145) mmol/L BUN (9-20) mg/dL Creatinine (0.66-1.25) mg/dL Glucose (74-99) mg/dL POC Glucose (mg/dL) 142 H 193 H (75-99) mg/dL Assessment and Plan (1) Pressure injury of sacral region, stage 2 Current Visit: Yes Status: Acute Code(s): L89.152 - PRESSURE ULCER OF SACRAL REGION, STAGE 2 SNOMED Code(s): 404726432 (2) Nonhealing ulcer of left lower extremity with fat layer exposed Current Visit: Yes Status: Acute Code(s): L97.922 - NON-PRS CHR ULC UNSP PRT OF L LOW LEG W FAT LAYER EXPOSED SNOMED Code(s): 55040819 (3) Diabetes with skin ulcer Current Visit: Yes Status: Acute Code(s): E11.622 - TYPE 2 DIABETES MELLITUS WITH OTHER SKIN ULCER; L98.499 - NON-PRESSURE CHRONIC ULCER OF SKIN OF SITES W UNSP SEVERITY SNOMED Code(s): 23583886
--- NOTE | 2020-08-11 13:41 | P.PN ---
Subjective Progress Note Date: 08/11/20 Follow-up for acute kidney injury. Objective - Vital Signs Vital signs: Vital Signs Temp 97.4 F L 08/11/20 08:00 Pulse 58 L 08/11/20 08:00 Resp 16 08/11/20 08:00 BP 133/61 08/11/20 08:00 Pulse Ox 96 08/11/20 08:00 Intake & Output 08/10/20 08/11/20 08/11/20 18:59 06:59 18:59 Intake Total 611 250 120 Output Total 900 1200 Balance -289 -950 120 Intake: Oral 611 250 120 Output: Urine 900 1200 Other: Voiding Method Indwelling Catheter Indwelling Catheter Indwelling Catheter # Bowel Movements 1 - Exam No acute distress S1-S2 heard Lungs clear Abdomen soft Trace edema - Labs CBC & Chem 7: 08/08/20 16:22 08/11/20 06:40 Labs: Abnormal Lab Results - Last 24 Hours (Table) 08/10/20 08/10/20 08/11/20 Range/Units 17:11 20:29 06:40 Sodium 136 L (137-145) mmol/L BUN 96 H (9-20) mg/dL Creatinine 3.53 H (0.66-1.25) mg/dL Glucose 136 H (74-99) mg/dL POC Glucose (mg/dL) 170 H 277 H (75-99) mg/dL 08/11/20 08/11/20 Range/Units 07:33 12:03 Sodium (137-145) mmol/L BUN (9-20) mg/dL Creatinine (0.66-1.25) mg/dL Glucose (74-99) mg/dL POC Glucose (mg/dL) 142 H 193 H (75-99) mg/dL Assessment and Plan Assessment: #1 acute kidney injury secondary to hemodynamics. 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 #3 chronic kidney disease stage IV secondary to diabetic kidney disease Baseline creatinine 3.4 MG per DL. #5 anemia with chronic kidney disease #6 hypertension with chronic kidney disease Plan: #1 creatinine stable. #2 continue with Lasix 40 mg by mouth daily. #3 monitor and adjust antihypertensive medications with the goal of systolic blood pressure between 120 to 130. Avoid hypotensive episodes. #4 labs in the morning
[2020-08-11] MEDS: NON FORMULARY DRUG (Fish Oil/Dha/Epa [Fish Oil 1,200 Mg Fish Oil] 1 EACH Capsule) PO SCH (14:03)
[2020-08-11 16:58] LABS: Glucose,Whole Blood 69 mg/dL (75-99)
[2020-08-11] MEDS: HYDROPHILIC CREAM 180 GM TUBE TOPICAL SCH (17:00)
[2020-08-11 18:03] LABS: Glucose,Whole Blood 109 mg/dL (75-99)
--- NOTE | 2020-08-11 20:08 | P.PN ---
Progress Note - Text Progress Note Date: 08/11/20 Chief Complaint: Hypertension History of presenting complaint: Patient is a 69-year-old male with a past medical history of chronic venous stasis ulcers with recurrent cellulitis of the lower extremities, sleep apnea, hypertension, diabetes mellitus type 2 and chronic kidney disease stage IV, peptic ulcer disease. Patient was being followed at the wound care center per Dr. Campuzano. He is unsure why he lost to follow-up. Currently his does wound dressings at home. Patient was sent in after does discomfort his potassium was running high. Patient always a bowel movement every 2 or 3 days. On this occasion with no bowel movement for last 9 days. No nausea vomiting. She will to 8. No fever no chills. No abdominal pain or distention. Kidney function has been worsening. Pretty much uses a wheelchair at her baseline. Admitted with severe hyperkalemia and worsening renal function. Patient had a good response to laxative had bowel movements. Today-tolerating a diet. No new issues. Feels stable. Discussed with nephrology-SOILA Maria today. Review of systems: Was done for constitutional, cardiovascular, GI, pulmonary. relevant finding as above Active Medications Acetaminophen (Acetaminophen Tab 325 Mg Tab) 650 mg PO Q6HR PRN PRN Reason: Fever and/ or Pain Last Admin: 08/09/20 20:21 Dose: 650 mg Documented by: Hydrocodone Bitart/Acetaminophen (Hydrocodone/Apap 10-325mg 1 Each Tab) 1 each PO TID PRN PRN Reason: Pain Allopurinol (Allopurinol 100 Mg Tab) 100 mg PO DAILY [facility] Last Admin: 08/11/20 08:12 Dose: 100 mg Documented by: Amlodipine Besylate (Amlodipine 5 Mg Tab) 5 mg PO BID [facility] Last Admin: 08/11/20 08:12 Dose: 5 mg Documented by: Aspirin (Aspirin 81 Mg) 81 mg PO DAILY [facility] Last Admin: 08/11/20 08:12 Dose: 81 mg Documented by: Atorvastatin Calcium (Atorvastatin 20 Mg Tab) 20 mg PO HS [facility] Last Admin: 08/10/20 20:36 Dose: 20 mg Documented by: Atorvastatin Calcium (Atorvastatin 20 Mg Tab) 20 mg PO DAILY [facility] Last Admin: 08/11/20 08:12 Dose: 20 mg Documented by: Calcitriol (Calcitriol 0.25 Mcg Cap) 0.25 mcg PO DAILY [facility] Last Admin: 08/11/20 08:12 Dose: 0.25 mcg Documented by: Cholecalciferol (Cholecalciferol 25 Mcg (1000 Iu) Tablet) 125 mcg PO HS [facility] Last Admin: 08/10/20 20:36 Dose: 125 mcg Documented by: Clonidine (Clonidine Hcl 0.1 Mg Tab) 0.1 mg PO TID [facility] Last Admin: 08/11/20 17:55 Dose: 0.1 mg Documented by: Ferrous Sulfate (Ferrous Sulfate 325 Mg Tab) 325 mg PO DAILY [facility] Last Admin: 08/11/20 08:12 Dose: 325 mg Documented by: Furosemide (Furosemide 40 Mg Tab) 40 mg PO DAILY [facility] Last Admin: 08/11/20 08:12 Dose: 40 mg Documented by: Gabapentin (Gabapentin 300 Mg Cap) 300 mg PO TID [facility] Last Admin: 08/11/20 17:55 Dose: 300 mg Documented by: Hydralazine HCl (Hydralazine Hcl 50 Mg Tab) 100 mg PO TID [facility] Last Admin: 08/11/20 17:55 Dose: 100 mg Documented by: Insulin Aspart (Insulin Aspart (Novolog) 100 Unit/Ml Vial) 0 unit SQ [facility]; Protocol Last Admin: 08/11/20 17:00 Dose: Not Given Documented by: Insulin Aspart (Insulin Aspart (Novolog) 100 Unit/Ml Vial) 6 unit SQ AC-TID [facility] Last Admin: 08/11/20 17:01 Dose: Not Given Documented by: Insulin Detemir (Insulin Detemir (Levemir) 100 Unit/Ml Syr) 38 unit SQ DAILY@0700 [facility] Last Admin: 08/11/20 08:13 Dose: 38 unit Documented by: Lactulose (Lactulose 20 Gm/30 Ml Cup) 15 gm PO TID PRN PRN Reason: Constipation Last Admin: 08/09/20 20:20 Dose: 15 gm Documented by: Multi-Ingred Cream/Lotion/Oil/Oint (Hydrophilic Cream 180 Gm Tube) 1 applic TOPICAL DAILY [facility] Last Admin: 08/11/20 17:00 Dose: 1 applic Documented by: Multi-Ingred Cream/Lotion/Oil/Oint (Hydrophilic Cream 180 Gm Tube) 1 applic TOPICAL DAILY [facility] Naloxone HCl (Naloxone 0.4 Mg/Ml 1 Ml Vial) 0.2 mg IV Q2M PRN PRN Reason: Opioid Reversal Non-Formulary Medication (Fish Oil/Dha/Epa [Fish Oil 1,200 Mg Fish Oil]) 1 cap PO DAILY [facility] Last Admin: 08/11/20 14:03 Dose: Not Given Documented by: Pantoprazole Sodium (Pantoprazole 40 Mg Tablet) 40 mg PO DAILY@0730 [facility] Last Admin: 08/11/20 06:45 Dose: 40 mg Documented by: Past medical history to include: chronic left lower extremity wound with cellulitis, hypertension with chronic kidney disease, morbid obesity, COPD, diabetes, hypertension, osteoarthritis, CKD stage III, diabetic peripheral neuropathy, obstructive sleep apnea uses CPAP, chronic recurrent umbilical hernia, mild cognitive impairment, baseline gait dysfunction-mainly uses a wheelchair. On examination: VITAL SIGNS: 97.4, 58, 16, 133/61, 96% room air GENERAL APPEARANCE: Sitting up in bed, awake HEENT: Normal external appearance of nose and ear. Oral cavity normal EYES: Pupils equal. Conjunctiva pale NECK: JVD not raised. Mass not palpable. RESPIRATORY: Respiratory effort normal. Lungs clear to auscultation. CARDIOVASCULAR: First and second sounds normal. No edema. ABDOMEN: Soft. Liver and spleen not palpable. No tenderness. No mass palpable. PSYCHIATRY: Alert and oriented x3. Mood and affect normal. DERMATOLOGICAL: Chronic Left lower extremity wound-currently in the dressing. Sacral wound. INVESTIGATIONS, reviewed in the clinical context: Fabry seventh: Creatinine 3.53 August 10: Potassium 5.2 creatinine 3.68 bun 91 August 09 fifth-potassium 5.1 bun 97 creatinine 3.48 glucose 33 White count 9.9 hemoglobin 9.2 platelets 288 potassium 6.4 bun 93 creatinine 3.93 Coronavirus [PCR]-not detected EKG tracing personally reviewed by me-normal sinus rhythm Previous labs: Creatinine 2.22 on December 2019 Assessment: -Severe hyperkalemia from underlying chronic kidney disease/type IV RTA- improving -Acute on chronic kidney disease stage 4 from diabetic kidney disease and nephrosclerosis -Chronic duodenal ulcer and antral gastritis -Hypertension with chronic kidney disease -Morbid obesity BMI 46.2 -COPD -Diabetes mellitus type 2, uncontrolled with hypoglycemia -Essential hypertension -Primary osteoarthritis -Chronic kidney disease stage 3 -Diabetic peripheral neuropathy -Stage II pressure ulcer sacrum-local wound care-apply triad and waffle cushion for sitting -Chronic lower extremity wound medial aspect-healed. Use triad daily-rolled gauze Pastor wrap to the site -Obstructive sleep apnea uses CPAP -Chronic umbilical hernia -Mild cognitive impairment -Chronic gait dysfunction sometimes uses a walker otherwise mainly a chair Plan: We'll increase morning dose of Levemir to 32 units. Decreased scheduled 4 units of NovoLog with meals. Hopefully home tomorrow after being seen by nephrology.
[2020-08-11 20:14] LABS: Glucose,Whole Blood 127 mg/dL (75-99)
[2020-08-11] MEDS: CHOLECALCIFEROL 25 MCG (1000 IU) TABLET PO SCH (22:25)
[2020-08-12] MEDS: HYDROPHILIC CREAM 180 GM TUBE TOPICAL SCH ×3 (06:13→12:04)
[2020-08-12 06:46] LABS: Glucose,Whole Blood 124 mg/dL (75-99)
[2020-08-12] MEDS ORDERED: INSULIN DETEMIR (LEVEMIR) 100 UNIT/ML SYR SQ SCH (07:00)
[2020-08-12 07:15] VITALS: RESP 17
[2020-08-12] MEDS: INSULIN ASPART (NovoLOG) 100 UNIT/ML VIAL SQ SCH ×6 (07:24→16:51)
[2020-08-12] MEDS: allopurinoL 100 MG TAB PO SCH (08:54)
[2020-08-12] MEDS: FERROUS SULFATE 325 MG TAB PO SCH (08:54)
[2020-08-12] MEDS: FUROSEMIDE 40 MG TAB PO SCH (08:54)
[2020-08-12] MEDS: cloNIDine HCL 0.1 MG TAB PO SCH ×2 (08:54→16:21)
[2020-08-12] MEDS: ASPIRIN 81 MG PO SCH (08:54)
[2020-08-12] MEDS: PANTOPRAZOLE 40 MG TABLET PO SCH (08:54)
[2020-08-12] MEDS: amLODIPine 5 MG TAB PO SCH (08:54)
[2020-08-12] MEDS: hydrALAZINE HCL 50 MG TAB PO SCH ×2 (08:54→16:21)
[2020-08-12] MEDS: GABAPENTIN 300 MG CAP PO SCH ×2 (08:54→16:21)
[2020-08-12] MEDS: NON FORMULARY DRUG (Fish Oil/Dha/Epa [Fish Oil 1,200 Mg Fish Oil] 1 EACH Capsule) PO SCH (08:55)
[2020-08-12] MEDS: ATORVASTATIN 20 MG TAB PO SCH (08:55)
[2020-08-12 11:22] LABS: Glucose,Whole Blood 204 mg/dL (75-99)
--- NOTE | 2020-08-12 13:52 | CDI ---
Documentation Clarification Form Date: 08/12/2020 01:39:52 PM From: Abbie Sanz CCS, CCDS Admit Date: 08/08/2020 05:14:00 PM Patient Name: Fadi Meza Visit Number: [id number] Discharge Date: ATTENTION: The Clinical Documentation Specialists (CDI) and [facility] Coding Staff appreciate your assistance in clarifying documentation. Please respond to the clarification below the line at the bottom and electronically sign. The CDI & [facility] Coding staff will review the response and follow-up if needed. Please note: Queries are made part of the Legal Health Record. If you have any questions, please contact the author of this message via ITS. Dr. Jonh Butcher: CHF is documented in the patient's Past Medical History in the 08/08 ED Note, 08/09 History & Physical, 08/09 Nephrology Consult and the 08/11 Wound Care consult without further specificity. History/Risk Factors: Heart Failure, COPD, DM II, Diabetic Peripheral Neuropathy, Hyperlipidemia, Hypertension, Osteoarthritis, Pneumonia, CKD Stage IV, Obstructive Sleep Apnea and Chronic Venous Stasis with Bilateral Lower Leg Ulcers, Morbid Obesity, BMI 46.2. Clinical Indicators: Patient presented to the ED on 08/08 with abnormal lab values: high K, 6.4. Admitted with Hyperkalemia. VS 08/08: T 98.4, P 65 - 90, R 18, BP 127/61 - 153/59, PO 97 RA LAB: Hgb 9.2, Hct 28.2, Na 135, K 6.4 - 5.7; BUN 93, Cr 3.93, BNP not done. Echocardiogram Results: (Most recent ): Mild TR, Severe Pulmonary hypertension, Trace/mild pulmonic regurgitation, Moderate LVH. EF 50-55%. Chest X Ray: No Chest X Ray this admission. Most Recent: 12/11/19: Mild cardiomegaly with coarsened interstitium may be on the basis of reduced inspiration rather than interstitial pneumonitis or venous congestion. EKG 08/08: R 69 nsr. Treatment: INH Ventolin, IV Insulin, IV NaBicarb, po Kayexalate, IV fluid 1,000 mls @ 75 mls/hr q13H. 2/5 po Lasix 40 mg daily (home dose) In your professional opinion, can you please clarify the acuity and type of CHF if known? Heart Failure is ruled out Systolic Heart Failure: o Acute o Chronic o Acute on Chronic Diastolic Heart Failure: o Acute o Chronic o Acute on Chronic Systolic & Diastolic Heart Failure: o Acute o Chronic o Acute on Chronic Heart Failure Unable to Determine Other, please specify (Last Revision: October 2017) No congestive heart failure MTDD
[2020-08-12 14:36] VITALS: BMI 45.2
[2020-08-12 14:50] VITALS: BP 128/67; PULSE 54; TEMP 98.7
--- NOTE | 2020-08-12 15:08 | P.DS ---
Providers Date of admission: 08/08/20 17:14 Expected date of discharge: 08/12/20 Attending physician: Jonh Butcher Consults: 08/08/20 17:11 Consult Physician Urgent Consulting Provider: Afshin Mcintyre Consult Reason/Comments: Hyperkalemia, TIERNEY, renal failure Do you want consulting provider notified?: Yes Primary care physician: Papo Ford MD Hospital Course: Chief Complaint: Hypertension History of presenting complaint: Patient is a 69-year-old male with a past medical history of chronic venous stasis ulcers with recurrent cellulitis of the lower extremities, sleep apnea, hypertension, diabetes mellitus type 2 and chronic kidney disease stage IV, peptic ulcer disease. Patient was being followed at the wound care center per Dr. Campuzano. He is unsure why he lost to follow-up. Currently his does wound dressings at home. Patient was sent in after does discomfort his potassium was running high. Patient always a bowel movement every 2 or 3 days. On this occasion with no bowel movement for last 9 days. No nausea vomiting. No fever no chills. No abdominal pain or distention. Kidney function has been worsening. Pretty much uses a wheelchair at her baseline. Admitted with severe hyperkalemia and worsening renal function. Patient had a good response to laxative had bowel movements. Left lower extremity wound is healed. Sacral wound dressings to continue. Today-stable. Seen by the wound care team. Dressing change. Discussed with the patient. We'll follow with nephrology. Also will follow up at the wound care center with Dr. Campuzano. Consultation: Nephrology Wound care nurse-[place] Past medical history to include: chronic left lower extremity wound with cellulitis, hypertension with chronic kidney disease, morbid obesity, COPD, diabetes, hypertension, osteoarthritis, CKD stage III, diabetic peripheral neuropathy, obstructive sleep apnea uses CPAP, chronic recurrent umbilical hernia, mild cognitive impairment, baseline gait dysfunction-mainly uses a wheelchair. On examination: VITAL SIGNS: 98.7, 54, 17, 128/67, 98% room air GENERAL APPEARANCE: Sitting up in chair comfortable HEENT: Normal external appearance of nose and ear. Oral cavity normal EYES: Pupils equal. Conjunctiva pale NECK: JVD not raised. Mass not palpable. RESPIRATORY: Respiratory effort normal. Lungs clear to auscultation. CARDIOVASCULAR: First and second sounds normal. No edema. ABDOMEN: Soft. Liver and spleen not palpable. No tenderness. No mass palpable. PSYCHIATRY: Alert and oriented x3. Mood and affect normal. DERMATOLOGICAL: Chronic Left lower extremity wound-currently in the dressing. Sacral wound. INVESTIGATIONS, reviewed in the clinical context: August 12: [id number] 204 August seventh: Creatinine 3.53 August 10: Potassium 5.2 creatinine 3.68 bun 91 August 09 fifth-potassium 5.1 bun 97 creatinine 3.48 glucose 33 White count 9.9 hemoglobin 9.2 platelets 288 potassium 6.4 bun 93 creatinine 3.93 Coronavirus [PCR]-not detected EKG tracing personally reviewed by me-normal sinus rhythm Previous labs: Creatinine 2.22 on December 2019 Assessment: -Severe hyperkalemia from underlying chronic kidney disease/type IV RTA- improving -Acute on chronic kidney disease stage 4 from diabetic kidney disease and nephrosclerosis -Chronic duodenal ulcer and antral gastritis -Hypertension with chronic kidney disease -Morbid obesity BMI 46.2 -COPD -Diabetes mellitus type 2, uncontrolled with hypoglycemia -Essential hypertension -Primary osteoarthritis -Chronic kidney disease stage 3 -Diabetic peripheral neuropathy -Stage II pressure ulcer sacrum-local wound care-apply triad and waffle cushion for sitting -Chronic lower extremity wound medial aspect-healed. Use triad daily-rolled gauze Pastor wrap to the site -Obstructive sleep apnea uses CPAP -Chronic umbilical hernia -Mild cognitive impairment -Chronic gait dysfunction sometimes uses a walker otherwise mainly a chair Disposition: ECF/[place] Labs: CBC BMP-3 days Patient Condition at Discharge: Stable Plan - Discharge Summary Discharge Rx Participant: Yes New Discharge Prescriptions: No Action Cholecalciferol [Vitamin D3 (25 Mcg = 1000 Iu)] 5,000 unit PO HS allopurinoL [Zyloprim] 100 mg PO DAILY Fish Oil/Dha/Epa [Fish Oil 1,200 mg Fish Oil] 1 cap PO DAILY Ferrous Sulfate [Iron (65 MG Elemental)] 325 mg PO DAILY amLODIPine [Norvasc] 5 mg PO BID calcitrioL [Calcitriol] 0.25 mcg PO DAILY Atorvastatin [Lipitor] 20 mg PO HS HYDROcodone/APAP 10-325MG [[place] 10-325] 1 tab PO TID PRN #9 tab PRN Reason: Pain Aspirin EC [Ecotrin Low Dose] 81 mg PO DAILY Magnesium 250 mg PO DAILY Insulin Glargine,Hum.rec.anlog [Lantus Solostar] 30 unit SQ DAILY Insulin Glargine,Hum.rec.anlog [Lantus Solostar] 20 unit SQ HS hydrALAZINE HCL [Apresoline] 100 mg PO TID Simvastatin 40 mg PO DAILY Gabapentin [Neurontin] 300 mg PO TID Furosemide [Lasix] 40 mg PO DAILY Pantoprazole [Protonix] 40 mg PO DAILY Sodium Polystyrene Sulfonate 1 tbsp PO Q48H Discharge Medication List Cholecalciferol [Vitamin D3 (25 Mcg = 1000 Iu)] 5,000 unit PO HS 04/22/15 [History] allopurinoL [Zyloprim] 100 mg PO DAILY 04/22/15 [History] Fish Oil/Dha/Epa [Fish Oil 1,200 mg Fish Oil] 1 cap PO DAILY 09/06/15 [History] Ferrous Sulfate [Iron (65 MG Elemental)] 325 mg PO DAILY 10/23/15 [History] amLODIPine [Norvasc] 5 mg PO BID 08/27/17 [History] calcitrioL [Calcitriol] 0.25 mcg PO DAILY 12/16/18 [History] Atorvastatin [Lipitor] 20 mg PO HS 12/09/19 [History] HYDROcodone/APAP 10-325MG [[place] 10-325] 1 tab PO TID PRN #9 tab 12/16/19 [Rx] Aspirin EC [Ecotrin Low Dose] 81 mg PO DAILY 08/08/20 [History] Furosemide [Lasix] 40 mg PO DAILY 08/08/20 [History] Gabapentin [Neurontin] 300 mg PO TID 08/08/20 [History] Insulin Glargine,Hum.rec.anlog [Lantus Solostar] 20 unit SQ HS 08/08/20 [History] Insulin Glargine,Hum.rec.anlog [Lantus Solostar] 30 unit SQ DAILY 08/08/20 [History] Magnesium 250 mg PO DAILY 08/08/20 [History] Pantoprazole [Protonix] 40 mg PO DAILY 08/08/20 [History] Simvastatin 40 mg PO DAILY 08/08/20 [History] Sodium Polystyrene Sulfonate 1 tbsp PO Q48H 08/08/20 [History] hydrALAZINE HCL [Apresoline] 100 mg PO TID 08/08/20 [History] Follow up Appointment(s)/Referral(s): Papo Ford MD [Primary Care Provider] - 1-2 days Activity/Diet/Wound Care/Special Instructions: Cleanse both areas with normal saline daily then: 1. Sacrum: Apply triad to the site daily. 2. Left lower extremity apply triad, rolled gauze, Pastor wrap secured paper tape. Change daily
[2020-08-12 16:40] LABS: Glucose,Whole Blood 182 mg/dL (75-99)
--- NOTE | 2020-08-12 21:00 | PN ---
PROGRESS NOTE Patient is seen for followup for chronic kidney disease and acute kidney injury. He is currently sleeping this morning. He is comfortable. Renal function had improved to creatinine down to 3.5 from 3.9 on initial admission. Patient's previous creatinine was around 2.3 to 2.2 mg/dL. Currently patient is maintained on oral Lasix 40 mg daily. He has an indwelling Maria catheter with 24-hour urine output noted at 3.7 L. On examination this morning, blood pressure was 125/56, heart rate 55 per minute. Patient is sleeping comfortably. EXAMINATION OF THE HEART: S1 and S2. EXAMINATION OF LUNGS: Bilateral breath sounds are heard. ABDOMEN: Soft, non-tender. Examination of lower extremities shows edema 1+ bilaterally. Labs show sodium of 136 from 08/11/2020, serum creatinine 3.5, chloride 96, potassium 5.0. ASSESSMENT: 1. Chronic kidney disease, stage 4, secondary to diabetic kidney disease. Baseline creatinine around 2.2 to 2.3 mg/dL. 2. Acute kidney injury, nonoliguric, currently with indwelling Maria catheter and good urine output. 3. Anemia of chronic disease. 4. Hypertension with chronic kidney disease, stage 3. 5. Hyperkalemia on initial admission, now resolved. 6. Chronic ulcer and antral gastritis. PLAN: Continue with IV Lasix. Repeat labs in a.m. Continue calcitriol for secondary hyperparathyroidism. MMODL / IJN: [id number] /
== END 2020-08-12 18:36 | DRG 641 ==
LOC: EC 15:21 → 3SCARD 17:14 → 4SSUR 08-11 18:30
PROVIDERS: ADMIT Hospitalist; ATTEND Hospitalist
DX: E87.5 Hyperkalemia (principal); N17.9 Acute kidney failure, unspecified; I13.0 Hypertensive heart and chronic kidney disease with heart failure and stage 1 through stage 4 chronic kidney disease, or unspecified chronic kidney disease; N18.4 Chronic kidney disease, stage 4 (severe); L03.115 Cellulitis of right lower limb; L03.116 Cellulitis of left lower limb; L97.922 Non-pressure chronic ulcer of unspecified part of left lower leg with fat layer exposed; Z68.42 Body mass index [BMI] 45.0-49.9, adult; E11.22 Type 2 diabetes mellitus with diabetic chronic kidney disease; I50.9 Heart failure, unspecified; J44.9 Chronic obstructive pulmonary disease, unspecified; E11.649 Type 2 diabetes mellitus with hypoglycemia without coma; E11.622 Type 2 diabetes mellitus with other skin ulcer; E11.42 Type 2 diabetes mellitus with diabetic polyneuropathy; Z20.822 Contact with and (suspected) exposure to COVID-19; L89.152 Pressure ulcer of sacral region, stage 2; I83.009 Varicose veins of unspecified lower extremity with ulcer of unspecified site; E66.01 Morbid (severe) obesity due to excess calories; Z79.4 Long term (current) use of insulin; N25.89 Other disorders resulting from impaired renal tubular function; K26.9 Duodenal ulcer, unspecified as acute or chronic, without hemorrhage or perforation; K29.70 Gastritis, unspecified, without bleeding; M89.8X9 Other specified disorders of bone, unspecified site; D63.1 Anemia in chronic kidney disease; E78.5 Hyperlipidemia, unspecified; G47.33 Obstructive sleep apnea (adult) (pediatric); M19.90 Unspecified osteoarthritis, unspecified site; K42.9 Umbilical hernia without obstruction or gangrene; G31.84 Mild cognitive impairment of uncertain or unknown etiology; R26.9 Unspecified abnormalities of gait and mobility; M19.91 Primary osteoarthritis, unspecified site; Z99.3 Dependence on wheelchair; Z90.49 Acquired absence of other specified parts of digestive tract; Z98.42 Cataract extraction status, left eye; Z98.41 Cataract extraction status, right eye; Z88.2 Allergy status to sulfonamides; Z88.6 Allergy status to analgesic agent; Z88.8 Allergy status to other drugs, medicaments and biological substances; Z79.899 Other long term (current) drug therapy; Z79.82 Long term (current) use of aspirin; Z87.11 Personal history of peptic ulcer disease; Z87.440 Personal history of urinary (tract) infections; Z87.891 Personal history of nicotine dependence; Z82.5 Family history of asthma and other chronic lower respiratory diseases; Z82.49 Family history of ischemic heart disease and other diseases of the circulatory system; Z83.3 Family history of diabetes mellitus; Z87.01 Personal history of pneumonia (recurrent); Z95.5 Presence of coronary angioplasty implant and graft
CPT/HCPCS: 36415; 76770; 80048; 80053; 82728; 83540; 83550; 83735; 84132; 85025; 85027; 87635; 93005; 96372; 96374; 96375; 99291

== ENCOUNTER 2020-09-02 23:24 | Emergency (ER) | payer MEDICARE, BC ==
[2020-09-02 23:32] VITALS: TEMP 98.7
--- NOTE | 2020-09-02 23:32 | ED ---
Recheck HPI - General Stated Complaint: Abnormal Labs Time Seen by Provider: 09/02/20 23:29 Source: patient, EMS, RN notes reviewed, old records reviewed Mode of arrival: EMS Limitations: no limitations - History of Present Illness Initial Comments: This is a 69-year-old male who presents today for evaluation. Patient Dese for evaluation of low hemoglobin. Patient has no history of acute ulcer disease, not currently on blood thinners. Patient has no complaints this was a normal lab draw, patient presents with labs today a hemoglobin that went from 7.4-6.9 MD Complaint: abnormal lab (low Hgb) -: unknown Returns Today for: Called Because of Abnormal Lab/Test Symptoms Since Prior Visit: no new symptoms Context: called for abnormal lab result Associated Symptoms: none - Related Data Home Medications Medication Instructions Recorded Confirmed Cholecalciferol [Vitamin D3 (25 5,000 unit PO HS 04/22/15 08/08/20 Mcg = 1000 Iu)] allopurinoL [Zyloprim] 100 mg PO DAILY 04/22/15 08/08/20 Fish Oil/Dha/Epa [Fish Oil 1,200 1 cap PO DAILY 09/06/15 08/08/20 mg Fish Oil] Ferrous Sulfate [Iron (65 MG 325 mg PO DAILY 10/23/15 08/08/20 Elemental)] amLODIPine [Norvasc] 5 mg PO BID 08/27/17 08/08/20 calcitrioL [Calcitriol] 0.25 mcg PO DAILY 12/16/18 08/08/20 Atorvastatin [Lipitor] 20 mg PO HS 12/09/19 08/08/20 Aspirin EC [Ecotrin Low Dose] 81 mg PO DAILY 08/08/20 08/08/20 Furosemide [Lasix] 40 mg PO DAILY 08/08/20 08/08/20 Pantoprazole [Protonix] 40 mg PO DAILY 08/08/20 08/08/20 Sodium Polystyrene Sulfonate 1 tbsp PO Q48H 08/08/20 08/08/20 hydrALAZINE HCL [Apresoline] 100 mg PO TID 08/08/20 08/08/20 Previous Rx's Medication Instructions Recorded Atorvastatin [Lipitor] 20 mg PO DAILY tab 08/12/20 Gabapentin [Neurontin] 300 mg PO BID #6 cap 08/12/20 HYDROcodone/APAP 10-325MG [[place] 1 tab PO TID PRN #9 tab 08/12/20 10-325] Hydrophilic Cream [Triad Cream] 1 applic TOPICAL DAILY applic 08/12/20 INSULIN ASPART (NovoLOG) [NovoLOG 4 unit SQ AC-TID vial 08/12/20 (formulary)] Insulin Glargine,Hum.rec.anlog 32 unit SQ DAILY #0 08/12/20 [Lantus Solostar] cloNIDine HCL [Catapres] 0.1 mg PO TID tab 08/12/20 Allergies Allergy/AdvReac Type Severity Reaction Status Date / Time aspirin [From Anacin] Allergy Rash/Hives Verified 08/08/20 17:10 (Dulce brand ok) sulfamethoxazole AdvReac affects Verified 08/08/20 17:03 [From Bactrim] kidneys trimethoprim [From Bactrim] AdvReac Unknown Verified 08/08/20 17:03 Review of Systems ROS Statement: Those systems with pertinent positive or pertinent negative responses have been documented in the HPI. ROS Other: All systems not noted in ROS Statement are negative. Past Medical History Past Medical History: Heart Failure, COPD, Diabetes Mellitus, Hyperlipidemia, Hypertension, Osteoarthritis (OA), Pneumonia, Renal Disease, Sleep Apnea/CPAP/BIPAP, Vascular Disorder Additional Past Medical History / Comment(s): IDDM type II, 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, chronic venous ulcer left anterior lower leg-treated in [facility], sepsis from L leg wound, chronic anemia, hyperkalemia, CKD-spouse states his kidneys function at 28%, DELVIN with Cpap, possible starting of dementia, confusion at times at night, bilateral lower leg varicosities, umbilical hernia, Hpylori, ambulates very little with walker and mostly wheelchair bound, recent UTI History of Any Multi-Drug Resistant Organisms: ESBL, VRE Date of last positivie culture/infection: 11/28/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 Past Anesthesia/Blood Transfusion Reactions: No Reported Reaction Date of Last Stent Placement:: 10/2015 Past Psychological History: No Psychological Hx Reported Smoking Status: Never smoker Past Alcohol Use History: None Reported Past Drug Use History: None Reported - Past Family History Father Family Medical History: COPD Additional Family Medical History / Comment(s): AT AGE 64- EMPHYSEMA(SMOKER) Mother Family Medical History: Diabetes Mellitus, Hypertension Additional Family Medical History / Comment(s): LUPUS, LEG AMPUTATED. MOM IN HER 60'S General Exam Limitations: no limitations General appearance: alert, in no apparent distress Head exam: Present: atraumatic, normocephalic, normal inspection Eye exam: Present: normal appearance, PERRL, EOMI. Absent: scleral icterus, conjunctival injection, periorbital swelling ENT exam: Present: normal exam, mucous membranes moist Neck exam: Present: normal inspection. Absent: tenderness, meningismus, lymphadenopathy Respiratory exam: Present: normal lung sounds bilaterally. Absent: respiratory distress, wheezes, rales, rhonchi, stridor Cardiovascular Exam: Present: regular rate, normal rhythm, normal heart sounds. Absent: systolic murmur, diastolic murmur, rubs, gallop, clicks GI/Abdominal exam: Present: soft, normal bowel sounds. Absent: distended, tenderness, guarding, rebound, rigid Extremities exam: Present: normal inspection, full ROM, normal capillary refill. Absent: tenderness, pedal edema, joint swelling, calf tenderness Back exam: Present: normal inspection Neurological exam: Present: alert, oriented X3, CN II-XII intact Psychiatric exam: Present: normal affect, normal mood Skin exam: Present: warm, dry, intact, normal color. Absent: rash Course Vital Signs 09/02/20 23:26 Temperature 98.7 F Pulse Rate 54 L Respiratory 18 Rate Blood Pressure 117/76 O2 Sat by Pulse 98 Oximetry - Reevaluation(s) Reevaluation #1: 09/03/20 00:25 Medical record is reviewed 09/03/20 00:25 Outpatient lab tests have been reviewed Reevaluation #2: 09/03/20 00:25 patient remains without complaint Reevaluation #3: 09/03/20 00:40 Spoke with patient regarding findings and results, questions answered, patient remains without complaint Medical Decision Making - Medical Decision Making 69 male for evaluation of possibly low hemoglobin asymptomatic, patient's hemoglobin is 7.6 and even the prior 7.4. Patient will be discharged home - Lab Data Result diagrams: 09/02/20 23:55 09/02/20 23:55 Lab Results 09/02/20 09/02/20 Range/Units 23:55 23:55 WBC 10.4 (3.8-10.6) k/uL RBC 2.47 L (4.30-5.90) m/uL Hgb 7.6 L D (13.0-17.5) gm/dL Hct 23.3 L (39.0-53.0) % MCV 94.2 (80.0-100.0) fL MCH 30.8 (25.0-35.0) pg MCHC 32.7 (31.0-37.0) g/dL RDW 15.0 (11.5-15.5) % Plt Count 323 (150-450) k/uL MPV 7.4 Neutrophils % 77 % Lymphocytes % 13 % Monocytes % 7 % Eosinophils % 3 % Basophils % 0 % Neutrophils # 8.0 H (1.3-7.7) k/uL Lymphocytes # 1.3 (1.0-4.8) k/uL Monocytes # 0.7 (0-1.0) k/uL Eosinophils # 0.3 (0-0.7) k/uL Basophils # 0.0 (0-0.2) k/uL Sodium 136 L (137-145) mmol/L Potassium 4.3 (3.5-5.1) mmol/L Chloride 108 H (98-107) mmol/L Carbon Dioxide 16 L (22-30) mmol/L Anion Gap 12 mmol/L BUN 91 H (9-20) mg/dL Creatinine 3.13 H (0.66-1.25) mg/dL Est GFR (CKD-EPI)AfAm 22 (>60 ml/min/1.73 sqM) Est GFR (CKD-EPI)NonAf 19 (>60 ml/min/1.73 sqM) Glucose 152 H (74-99) mg/dL Calcium 9.0 (8.4-10.2) mg/dL Magnesium 1.6 (1.6-2.3) mg/dL Total Bilirubin 0.3 (0.2-1.3) mg/dL AST 13 L (17-59) U/L ALT 11 (4-49) U/L Alkaline Phosphatase 73 (38-126) U/L Total Protein 5.9 L (6.3-8.2) g/dL Albumin 3.2 L (3.5-5.0) g/dL Disposition Clinical Impression: Anemia Disposition: HOME SELF-CARE Condition: Good Instructions (If sedation given, give patient instructions): Anemia (ED) Is patient prescribed a controlled substance at d/c from ED?: No Referrals: Papo Ford MD [Primary Care Provider] - 1-2 days
[2020-09-03 00:20] LABS: Albumin 3.2 g/dL (3.5-5.0); Magnesium 1.6 mg/dL (1.6-2.3); Potassium 4.3 mmol/L (3.5-5.1); Total Bilirubin 0.3 mg/dL (0.2-1.3); Total Protein 5.9 g/dL (6.3-8.2)
[2020-09-03 00:26] LABS: Basophils % (A) 0 %; Eosinophils # (A) 0.3 k/uL (0-0.7); Eosinophils % (A) 3 %; HCT 23.3 % (39.0-53.0); Lymphocytes # (A) 1.3 k/uL (1.0-4.8); Lymphocytes % (A) 13 %; MCH 30.8 pg (25.0-35.0); MCHC 32.7 g/dL (31.0-37.0); MCV 94.2 fL (80.0-100.0); Mean Platelet Volume 7.4; Monocytes # (A) 0.7 k/uL (0-1.0); Monocytes % (A) 7 %; Neutrophils % (A) 77 %; Platelet Count 323 k/uL (150-450); RBC 2.47 m/uL (4.30-5.90); WBC 10.4 k/uL (3.8-10.6)
[2020-09-03 00:31] LABS: HGB 7.6 gm/dL (13.0-17.5)
[2020-09-03 01:01] VITALS: BP 109/49; PULSE 88; RESP 16
== END 2020-09-03 01:22 | disposition home or self-care (01) ==
LOC: EC 23:24
DX: D64.9 Anemia, unspecified (principal); I13.0 Hypertensive heart and chronic kidney disease with heart failure and stage 1 through stage 4 chronic kidney disease, or unspecified chronic kidney disease; I50.9 Heart failure, unspecified; N18.9 Chronic kidney disease, unspecified; J44.9 Chronic obstructive pulmonary disease, unspecified; E11.22 Type 2 diabetes mellitus with diabetic chronic kidney disease; E78.5 Hyperlipidemia, unspecified; E11.40 Type 2 diabetes mellitus with diabetic neuropathy, unspecified; Z90.49 Acquired absence of other specified parts of digestive tract; Z95.5 Presence of coronary angioplasty implant and graft; Z79.4 Long term (current) use of insulin; Z79.82 Long term (current) use of aspirin
CPT/HCPCS: 36415; 80053; 83735; 85025; 86850; 86900; 86901; 99284

== ENCOUNTER 2020-09-07 18:17 | Inpatient (IN) | payer MEDICARE, BC ==
[2020-09-07 18:48] LABS: Basophils % (A) 0 %; Eosinophils # (A) 0.5 k/uL (0-0.7); Eosinophils % (A) 3 %; HCT 28.4 % (39.0-53.0); Lymphocytes # (A) 0.9 k/uL (1.0-4.8); Lymphocytes % (A) 5 %; MCH 31.2 pg (25.0-35.0); MCHC 32.6 g/dL (31.0-37.0); MCV 95.9 fL (80.0-100.0); Mean Platelet Volume 7.3; Monocytes # (A) 0.7 k/uL (0-1.0); Monocytes % (A) 4 %; Neutrophils # (A) 17.5 k/uL (1.3-7.7); Neutrophils % (A) 88 %; Platelet Count 332 k/uL (150-450); RBC 2.96 m/uL (4.30-5.90); RDW 15.3 % (11.5-15.5); WBC 19.8 k/uL (3.8-10.6)
[2020-09-07 18:56] LABS: HGB 9.2 gm/dL (13.0-17.5)
--- NOTE | 2020-09-07 18:57 | ED ---
General Adult HPI - General Chief complaint: Neuro Symptoms/Deficit Stated complaint: Tremors Time Seen by Provider: 09/07/20 18:21 Source: patient, EMS, RN notes reviewed, old records reviewed Mode of arrival: EMS Limitations: no limitations - History of Present Illness Initial comments: 69-year-old [facility] diffuse [facility]or states this began approximately one hour prior to arrival. He denies fever but states he's had some chills. [facility] is [facility] the [facility] with chronic kidney disease, debility, lower extremity cellulitis. He denies current antibiotics. He denies abdominal pain nausea or vomiting. He states he did have some mild upper chest discomfort as well. - Related Data Home Medications Medication Instructions Recorded Confirmed Cholecalciferol [Vitamin D3 (25 5,000 unit PO HS 04/22/15 08/08/20 Mcg = 1000 Iu)] allopurinoL [Zyloprim] 100 mg PO DAILY 04/22/15 08/08/20 Fish Oil/Dha/Epa [Fish Oil 1,200 1 cap PO DAILY 09/06/15 08/08/20 mg Fish Oil] Ferrous Sulfate [Iron (65 MG 325 mg PO DAILY 10/23/15 08/08/20 Elemental)] amLODIPine [Norvasc] 5 mg PO BID 08/27/17 08/08/20 calcitrioL [Calcitriol] 0.25 mcg PO DAILY 12/16/18 08/08/20 Atorvastatin [Lipitor] 20 mg PO HS 12/09/19 08/08/20 Aspirin EC [Ecotrin Low Dose] 81 mg PO DAILY 08/08/20 08/08/20 Furosemide [Lasix] 40 mg PO DAILY 08/08/20 08/08/20 Pantoprazole [Protonix] 40 mg PO DAILY 08/08/20 08/08/20 Sodium Polystyrene Sulfonate 1 tbsp PO Q48H 08/08/20 08/08/20 hydrALAZINE HCL [Apresoline] 100 mg PO TID 08/08/20 08/08/20 Previous Rx's Medication Instructions Recorded Atorvastatin [Lipitor] 20 mg PO DAILY tab 08/12/20 Gabapentin [Neurontin] 300 mg PO BID #6 cap 08/12/20 HYDROcodone/APAP 10-325MG [[place] 1 tab PO TID PRN #9 tab 08/12/20 10-325] Hydrophilic Cream [Triad Cream] 1 applic TOPICAL DAILY applic 08/12/20 INSULIN ASPART (NovoLOG) [NovoLOG 4 unit SQ AC-TID vial 08/12/20 (formulary)] Insulin Glargine,Hum.rec.anlog 32 unit SQ DAILY #0 08/12/20 [Lantus Solostar] cloNIDine HCL [Catapres] 0.1 mg PO TID tab 08/12/20 Allergies Allergy/AdvReac Type Severity Reaction Status Date / Time aspirin [From Anacin] Allergy Rash/Hives Verified 08/08/20 17:10 (Dulce brand ok) sulfamethoxazole AdvReac affects Verified 08/08/20 17:03 [From Bactrim] kidneys trimethoprim [From Bactrim] AdvReac Unknown Verified 08/08/20 17:03 Review of Systems ROS Statement: Those systems with pertinent positive or pertinent negative responses have been documented in the HPI. ROS Other: All systems not noted in ROS Statement are negative. Past Medical History Past Medical History: Heart Failure, COPD, Diabetes Mellitus, Hyperlipidemia, Hypertension, Osteoarthritis (OA), Pneumonia, Renal Disease, Sleep Apnea/CPAP/BIPAP, Vascular Disorder Additional Past Medical History / Comment(s): IDDM type II, 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, chronic venous ulcer left anterior lower leg-treated in [facility], sepsis from L leg wound, chronic anemia, hyperkalemia, CKD-spouse states his kidneys function at 28%, DELVIN with Cpap, possible starting of dementia, confusion at times at night, bilateral lower leg varicosities, umbilical hernia, Hpylori, ambulates very little with walker and mostly wheelchair bound, recent UTI History of Any Multi-Drug Resistant Organisms: ESBL, VRE Date of last positivie culture/infection: 11/28/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 Past Anesthesia/Blood Transfusion Reactions: No Reported Reaction Date of Last Stent Placement:: 10/2015 Past Psychological History: No Psychological Hx Reported Smoking Status: Never smoker Past Alcohol Use History: None Reported Past Drug Use History: None Reported - Past Family History Father Family Medical History: COPD Additional Family Medical History / Comment(s): AT AGE 64- EMPHYSEMA(SMOKER) Mother Family Medical History: Diabetes Mellitus, Hypertension Additional Family Medical History / Comment(s): LUPUS, LEG AMPUTATED. MOM IN HER 60'S General Exam Limitations: no limitations General appearance: alert, anxious Head exam: Present: atraumatic, normocephalic Eye exam: Present: normal appearance, PERRL, EOMI ENT exam: Present: normal exam Neck exam: Present: normal inspection. Absent: tenderness, meningismus Respiratory exam: Present: normal lung sounds bilaterally. Absent: respiratory distress, wheezes Cardiovascular Exam: Present: normal rhythm, tachycardia GI/Abdominal exam: Present: soft, hernia. Absent: distended, tenderness, guarding Extremities exam: Present: other (Patient has a diffuse tremor .vs. rigors) Neurological exam: Present: alert, oriented X3, CN II-XII intact. Absent: motor sensory deficit Psychiatric exam: Present: normal affect, normal mood Skin exam: Present: warm, dry, intact. Absent: cyanosis, diaphoretic Course Vital Signs 09/07/20 09/07/20 09/07/20 18:20 18:49 20:00 Temperature 98.9 F 103.1 F H Pulse Rate 101 H 90 Respiratory 16 16 Rate Blood Pressure 172/87 172/87 O2 Sat by Pulse 95 95 Oximetry EKG Findings - EKG Comments: EKG Findings:: EKG normal sinus rhythm, very poor baseline secondary to artifact rate of 97, PA interval 178, QRS duration 80, QTC [address] segment elevation. Medical Decision Making - Medical Decision Making 69-year-old male presenting with shaking tremor. This does initially appear like Rigors. Patient currently being treated for bilateral lower extremity cellulitis with compression dressings. Not currently on antibiotics. He denies cough or abdominal pain. He has had some chills. Workup is initiated, chest x- rays negative for focal pneumonia. He has a CBC showing leukocytosis of 19,000. Blood culture and urine cultures are pending. Urinalysis does show concern for UTI and the patient previously had ESBL E. coli. He is given a dose of ertapenem in the emergency department. Currently waiting coronavirus. Patient is started on broad-spectrum antibiotics. Case discussed with Dr. Butcher will admit. Infectious disease placed on consult. - Lab Data Result diagrams: 09/07/20 18:38 09/07/20 18:38 Lab Results 09/07/20 09/07/20 09/07/20 Range/Units 18:38 18:38 18:38 WBC 19.8 H (3.8-10.6) k/uL RBC 2.96 L (4.30-5.90) m/uL Hgb 9.2 L D (13.0-17.5) gm/dL Hct 28.4 L (39.0-53.0) % MCV 95.9 (80.0-100.0) fL MCH 31.2 (25.0-35.0) pg MCHC 32.6 (31.0-37.0) g/dL RDW 15.3 (11.5-15.5) % Plt Count 332 (150-450) k/uL MPV 7.3 Neutrophils % 88 % Lymphocytes % 5 % Monocytes % 4 % Eosinophils % 3 % Basophils % 0 % Neutrophils # 17.5 H (1.3-7.7) k/uL Lymphocytes # 0.9 L (1.0-4.8) k/uL Monocytes # 0.7 (0-1.0) k/uL Eosinophils # 0.5 (0-0.7) k/uL Basophils # 0.0 (0-0.2) k/uL PT 10.7 (9.0-12.0) sec INR 1.0 (<1.2) APTT 23.2 (22.0-30.0) sec VBG pH (7.31-7.41) VBG pCO2 (37-51) mmHg VBG HCO3 (24-28) mmol/L Sodium 140 (137-145) mmol/L Potassium 4.7 (3.5-5.1) mmol/L Chloride 110 H (98-107) mmol/L Carbon Dioxide 14 L (22-30) mmol/L Anion Gap 16 mmol/L BUN 100 H (9-20) mg/dL Creatinine 3.24 H (0.66-1.25) mg/dL Est GFR (CKD-EPI)AfAm 21 (>60 ml/min/1.73 sqM) Est GFR (CKD-EPI)NonAf 18 (>60 ml/min/1.73 sqM) Glucose 223 H (74-99) mg/dL Plasma Lactic Acid Anthony (0.7-2.0) mmol/L Calcium 9.3 (8.4-10.2) mg/dL Magnesium 1.5 L (1.6-2.3) mg/dL Total Bilirubin 0.4 (0.2-1.3) mg/dL AST 34 (17-59) U/L ALT 25 (4-49) U/L Alkaline Phosphatase 101 (38-126) U/L Troponin I (0.000-0.034) ng/mL Total Protein 7.3 (6.3-8.2) g/dL Albumin 4.2 (3.5-5.0) g/dL Urine Color Urine Appearance (Clear) Urine pH (5.0-8.0) Ur Specific [place] (1.001-1.035) Urine Protein (Negative) Urine Glucose (UA) (Negative) Urine Ketones (Negative) Urine Blood (Negative) Urine Nitrite (Negative) Urine Bilirubin (Negative) Urine Urobilinogen (<2.0) mg/dL Ur Leukocyte Esterase (Negative) Urine RBC (0-5) /hpf Urine WBC (0-5) /hpf Urine WBC Clumps (None) /hpf Urine Bacteria (None) /hpf Hyaline Casts (0-2) /lpf Urine Mucus (None) /hpf 09/07/20 09/07/20 09/07/20 Range/Units 18:38 18:38 18:38 WBC (3.8-10.6) k/uL RBC (4.30-5.90) m/uL Hgb (13.0-17.5) gm/dL Hct (39.0-53.0) % MCV (80.0-100.0) fL MCH (25.0-35.0) pg MCHC (31.0-37.0) g/dL RDW (11.5-15.5) % Plt Count (150-450) k/uL MPV Neutrophils % % Lymphocytes % % Monocytes % % Eosinophils % % Basophils % % Neutrophils # (1.3-7.7) k/uL Lymphocytes # (1.0-4.8) k/uL Monocytes # (0-1.0) k/uL Eosinophils # (0-0.7) k/uL Basophils # (0-0.2) k/uL PT (9.0-12.0) sec INR (<1.2) APTT (22.0-30.0) sec VBG pH 7.39 (7.31-7.41) VBG pCO2 22 L (37-51) mmHg VBG HCO3 13 L (24-28) mmol/L Sodium (137-145) mmol/L Potassium (3.5-5.1) mmol/L Chloride (98-107) mmol/L Carbon Dioxide (22-30) mmol/L Anion Gap mmol/L BUN (9-20) mg/dL Creatinine (0.66-1.25) mg/dL Est GFR (CKD-EPI)AfAm (>60 ml/min/1.73 sqM) Est GFR (CKD-EPI)NonAf (>60 ml/min/1.73 sqM) Glucose (74-99) mg/dL Plasma Lactic Acid Anthony 1.3 (0.7-2.0) mmol/L Calcium (8.4-10.2) mg/dL Magnesium (1.6-2.3) mg/dL Total Bilirubin (0.2-1.3) mg/dL AST (17-59) U/L ALT (4-49) U/L Alkaline Phosphatase (38-126) U/L Troponin I <0.012 (0.000-0.034) ng/mL Total Protein (6.3-8.2) g/dL Albumin (3.5-5.0) g/dL Urine Color Urine Appearance (Clear) Urine pH (5.0-8.0) Ur Specific [place] (1.001-1.035) Urine Protein (Negative) Urine Glucose (UA) (Negative) Urine Ketones (Negative) Urine Blood (Negative) Urine Nitrite (Negative) Urine Bilirubin (Negative) Urine Urobilinogen (<2.0) mg/dL Ur Leukocyte Esterase (Negative) Urine RBC (0-5) /hpf Urine WBC (0-5) /hpf Urine WBC Clumps (None) /hpf Urine Bacteria (None) /hpf Hyaline Casts (0-2) /lpf Urine Mucus (None) /hpf 09/07/20 Range/Units 20:25 WBC (3.8-10.6) k/uL RBC (4.30-5.90) m/uL Hgb (13.0-17.5) gm/dL Hct (39.0-53.0) % MCV (80.0-100.0) fL MCH (25.0-35.0) pg MCHC (31.0-37.0) g/dL RDW (11.5-15.5) % Plt Count (150-450) k/uL MPV Neutrophils % % Lymphocytes % % Monocytes % % Eosinophils % % Basophils % % Neutrophils # (1.3-7.7) k/uL Lymphocytes # (1.0-4.8) k/uL Monocytes # (0-1.0) k/uL Eosinophils # (0-0.7) k/uL Basophils # (0-0.2) k/uL PT (9.0-12.0) sec INR (<1.2) APTT (22.0-30.0) sec VBG pH (7.31-7.41) VBG pCO2 (37-51) mmHg VBG HCO3 (24-28) mmol/L Sodium (137-145) mmol/L Potassium (3.5-5.1) mmol/L Chloride (98-107) mmol/L Carbon Dioxide (22-30) mmol/L Anion Gap mmol/L BUN (9-20) mg/dL Creatinine (0.66-1.25) mg/dL Est GFR (CKD-EPI)AfAm (>60 ml/min/1.73 sqM) Est GFR (CKD-EPI)NonAf (>60 ml/min/1.73 sqM) Glucose (74-99) mg/dL Plasma Lactic Acid Anthony (0.7-2.0) mmol/L Calcium (8.4-10.2) mg/dL Magnesium (1.6-2.3) mg/dL Total Bilirubin (0.2-1.3) mg/dL AST (17-59) U/L ALT (4-49) U/L Alkaline Phosphatase (38-126) U/L Troponin I (0.000-0.034) ng/mL Total Protein (6.3-8.2) g/dL Albumin (3.5-5.0) g/dL Urine Color Light Yellow Urine Appearance Cloudy (Clear) Urine pH 5.5 (5.0-8.0) Ur Specific [place] 1.011 (1.001-1.035) Urine Protein 2+ H (Negative) Urine Glucose (UA) Negative (Negative) Urine Ketones Negative (Negative) Urine Blood Trace H (Negative) Urine Nitrite Positive (Negative) Urine Bilirubin Negative (Negative) Urine Urobilinogen <2.0 (<2.0) mg/dL Ur Leukocyte Esterase Large H (Negative) Urine RBC 14 H (0-5) /hpf Urine WBC 51 H (0-5) /hpf Urine WBC Clumps Moderate H (None) /hpf Urine Bacteria Many H (None) /hpf Hyaline Casts 1 (0-2) /lpf Urine Mucus Rare H (None) /hpf Disposition Clinical Impression: Fever, Sepsis, Left leg cellulitis, Renal insufficiency, UTI (urinary tract infection) Disposition: ADMITTED IP TO THIS [facility] Condition: Serious Is patient prescribed a controlled substance at d/c from ED?: No Referrals: Papo Ford MD [Primary Care Provider] - 1-2 days Decision to Admit Reason: Admit from EC Decision Date: 09/07/20 Decision Time: 21:05
[2020-09-07 18:58] LABS: Albumin 4.2 g/dL (3.5-5.0); Calcium 9.3 mg/dL (8.4-10.2); Magnesium 1.5 mg/dL (1.6-2.3); Potassium 4.7 mmol/L (3.5-5.1); Total Bilirubin 0.4 mg/dL (0.2-1.3); Total Protein 7.3 g/dL (6.3-8.2); VBG PH 7.39 (7.31-7.41)
[2020-09-07 19:09] LABS: Partial Thromboplastin Time 23.2 sec (22.0-30.0); Prothrombin Time 10.7 sec (9.0-12.0)
[2020-09-07] MEDS: cefTRIAXone IN SWFI 1,000 MG/10 ML SYRINGE IVP SCH ×2 (19:47→19:51)
[2020-09-07] MEDS ORDERED: ACETAMINOPHEN TAB 500 MG TAB PO STA (19:57)
[2020-09-07] MEDS ORDERED: cefTRIAXone IN SWFI 1,000 MG/10 ML SYRINGE IVP STA (20:00)
--- NOTE | 2020-09-07 20:10 | XR ---
EXAMINATION TYPE: XR chest 2V DATE OF EXAM: 09/07/2020 COMPARISON: 12/11/2019 HISTORY chest pain TECHNIQUE: Frontal and lateral views of the chest are obtained. FINDINGS: There is no focal air space opacity, pleural effusion, or pneumothorax seen. The cardiac silhouette size is within normal limits. The osseous structures are intact. IMPRESSION: No acute cardiopulmonary process.
[2020-09-07] MEDS ORDERED: NALOXONE 0.4 MG/ML 1 ML VIAL IV PRN (20:44)
[2020-09-07] MEDS ORDERED: ERTAPENEM 1 GM in SODIUM CHLORIDE 0.9% 50 ML IVPB STA (21:07)
[2020-09-07 21:11] LABS: Appearance,Urine Cloudy (Clear); Bacteria,Urine Many /hpf; Bilirubin,Urine Negative (Negative); Blood,Urine Trace (Negative); Color,Urine Light Yellow; Glucose,Urine (UA) Negative (Negative); Hyaline Casts,Urine 1 /lpf (0-2); Ketones,Urine Negative (Negative); Leukocyte Esterase,Urine Large (Negative); Mucus,Urine Rare /hpf; Nitrite,Urine Positive (Negative); PH, Urine 5.5 (5.0-8.0); Protein,Urine 2+ (Negative); RBC,Urine 14 /hpf (0-5); Specific Gravity,Urine 1.011 (1.001-1.035); Urobilinogen,Urine <2.0 mg/dL (<2.0); WBC,Urine 51 /hpf (0-5)
[2020-09-07] MEDS: SODIUM CHLORIDE 0.9% 1,000 ML IV SCH (21:20)
[2020-09-08] MEDS ORDERED: MAGNESIUM HYDROXIDE 2,400 MG/10 ML CUP PO PRN (10:26)
[2020-09-08] MEDS ORDERED: LOPERAMIDE 2 MG CAP PO PRN (10:26)
[2020-09-08] MEDS ORDERED: HYDROPHILIC CREAM 180 GM TUBE TOPICAL PRN (10:26)
[2020-09-08] MEDS ORDERED: HYDROcodone/APAP 10-325MG 1 EACH TAB PO PRN (10:26)
[2020-09-08] MEDS ORDERED: NA PHOS,M-B/NA PHOS,DI-BA 133 ML ENEMA RECTAL PRN (10:26)
[2020-09-08] MEDS ORDERED: bisacodyL 10 MG SUPP RECTAL PRN (10:26)
[2020-09-08] MEDS: amLODIPine 5 MG TAB PO SCH ×2 (11:32→17:45)
[2020-09-08] MEDS: hydrALAZINE HCL 50 MG TAB PO SCH ×3 (11:32→20:48)
[2020-09-08] MEDS: cloNIDine HCL 0.1 MG TAB PO SCH ×2 (11:32→17:44)
[2020-09-08] MEDS: INSULIN ASPART (NovoLOG) 100 UNIT/ML VIAL SQ SCH ×5 (11:33→20:49)
[2020-09-08] MEDS: allopurinoL 100 MG TAB PO SCH (11:38)
[2020-09-08] MEDS: ACETAMINOPHEN TAB 325 MG TAB PO PRN ×2 (11:42→18:21)
[2020-09-08 13:15] LABS: Basophils % (A) 0 %; Eosinophils % (A) 0 %; HCT 23.6 % (39.0-53.0); Lymphocytes # (A) 0.7 k/uL (1.0-4.8); Lymphocytes % (A) 3 %; MCH 30.9 pg (25.0-35.0); MCHC 32.2 g/dL (31.0-37.0); MCV 96.1 fL (80.0-100.0); Mean Platelet Volume 7.4; Monocytes # (A) 1.1 k/uL (0-1.0); Monocytes % (A) 5 %; Neutrophils # (A) 21.2 k/uL (1.3-7.7); Neutrophils % (A) 92 %; Platelet Count 262 k/uL (150-450); RBC 2.46 m/uL (4.30-5.90); RDW 15.5 % (11.5-15.5); WBC 23.1 k/uL (3.8-10.6)
[2020-09-08 13:21] LABS: HGB 7.6 gm/dL (13.0-17.5)
[2020-09-08 13:25] LABS: Glucose,Whole Blood 113 mg/dL (75-99)
[2020-09-08 13:29] LABS: African American GFR (CKD) 23 (>60 ml/min/1.73 sqM); Anion Gap 13 mmol/L; Blood Urea Nitrogen 97 mg/dL (9-20); Calcium 8.7 mg/dL (8.4-10.2); Carbon Dioxide 15 mmol/L (22-30); Chloride 115 mmol/L (98-107); Glucose 119 mg/dL (74-99); Non-African American GFR(CKD) 20 (>60 ml/min/1.73 sqM); Potassium 3.9 mmol/L (3.5-5.1); Sodium 143 mmol/L (137-145)
[2020-09-08] MEDS: SODIUM CHLORIDE 0.9% 1,000 ML IV SCH ×2 (15:51→20:57)
[2020-09-08 16:22] LABS: Glucose,Whole Blood 99 mg/dL (75-99)
[2020-09-08] MEDS: NON FORMULARY DRUG (Fish Oil/Dha/Epa [Fish Oil 1,200 Mg Fish Oil] 1 EACH Capsule) PO SCH (17:43)
[2020-09-08] MEDS: CHOLECALCIFEROL 25 MCG (1000 IU) TABLET PO SCH (17:44)
[2020-09-08] MEDS: ASPIRIN 81 MG PO SCH (17:44)
[2020-09-08] MEDS: FERROUS SULFATE 325 MG TAB PO SCH (17:44)
--- NOTE | 2020-09-08 20:24 | P.HPIM ---
History of Present Illness H&P Date: 09/08/20 Chief Complaint: Tremors History of presenting complaint: Patient is a 69-year-old male with a past medical history of chronic venous stasis ulcers with recurrent cellulitis of the lower extremities, sleep apnea, hypertension, diabetes mellitus type 2 and chronic kidney disease stage IV, peptic ulcer disease. Currently at [facility]. EMS was called because osbaldo elizabeth was noted to have tremors. Patient is alert. Blood glucose was 259. It is now felt the patient had José Miguel's. Positive fever and had a fever in the ER. Patient not sure how the wound of the left lower extremities doing. He gets dressing changes every day. Denies any urinary symptoms. Denies any history symptoms. Had a 103.1 in the ER. Decreased appetite. Diet. Review of systems: GEN.: Tired EYES: None HEENT: None NECK: None RESPIRATORY: None CARDIOVASCULAR: None GASTROINTESTINAL: None GENITOURINARY: None MUSCULOSKELETAL: Joint pains LYMPHATICS: None HEMATOLOGICAL: None PSYCHIATRY: None NEUROLOGICAL: None DERMATOLOGICAL: left lower extremity wound Past medical history to include: chronic left lower extremity wound with cellulitis, hypertension with chronic kidney disease, morbid obesity, COPD, diabetes, hypertension, osteoarthritis, CKD stage III, diabetic peripheral neuropathy, obstructive sleep apnea uses CPAP, chronic recurrent umbilical hernia, mild cognitive impairment, baseline gait dysfunction-mainly uses a wheelchair. Social history: Nonsmoker. . Currently at [facility]. On examination: VITAL SIGNS: 103.1, 101, 16, 172/87, 95% room air-upon presentation GENERAL APPEARANCE: Laying in bed, awake, tired HEENT: Normal external appearance of nose and ear. Oral cavity normal EYES: Pupils equal. Conjunctiva pale NECK: JVD not raised. Mass not palpable. RESPIRATORY: Respiratory effort normal. Lungs clear to auscultation. CARDIOVASCULAR: First and second sounds normal. No edema. ABDOMEN: Soft. Liver and spleen not palpable. No tenderness. No mass palpable. Umbilical hernia, reducible PSYCHIATRY: Able tonsil simple questions DERMATOLOGICAL: Left lower extremity wound-currently in the dressing INVESTIGATIONS, reviewed in the clinical context: WBC 23.1 hemoglobin 7.6 platelets 262 potassium 3.9 x 12 15 creatinine 3.05 bun 97 Admission testing: UA positive for leukoesterase WBC bacteria Bun 100 creatinine 3.24 Assessment and plan: -Acute metabolic encephalopathy from underlying UTI. Follow closely -Sepsis from underlying UTI, IV fluids, IV ceftriaxone. Urine culture done -Acute UTI from cystitis causing sepsis, IV ceftriaxone -chronic kidney disease stage 4 from diabetic kidney disease and nephrosclerosis, follow renal function -Chronic duodenal ulcer and antral gastritis , continue Protonix -Hypertension with chronic kidney disease, 40 vital signs -Morbid obesity BMI 43, follow diet -COPD," and as needed -Diabetes mellitus type 2, chronic low insulin. Follow Accu-Cheks -Essential hypertension, continue hydralazine -Primary osteoarthritis, Tylenol when necessary -Diabetic peripheral neuropathy -Stage II pressure ulcer sacrum-local wound care-apply triad and waffle cushion for sitting -Acute on Chronic lower extremity wound medial to be followed by wound care team -Obstructive sleep apnea uses CPAP -Chronic umbilical hernia -Mild cognitive impairment -Chronic gait dysfunction sometimes uses a walker otherwise mainly a chair -Anemia of chronic kidney disease, follow CBC -Metabolic acidosis from renal failure, and sodium bicarbonate Wound care team was consulted. IV ceftriaxone. Care was discussed with the patient. Given the complexity and severity of patient's condition expect the patient to be in the hospital at least for 2 overnights Past Medical History Past Medical History: Heart Failure, COPD, Diabetes Mellitus, Hyperlipidemia, Hypertension, Osteoarthritis (OA), Pneumonia, Renal Disease, Sleep Apnea/CPAP/BIPAP, Vascular Disorder Additional Past Medical History / Comment(s): IDDM type II, severe bilateral fee t neuropathy and start of neuropathy bilateral hands, chronic venous ulcer left anterior lower leg-treated in [facility], sepsis from L leg wound, chronic anemia, hyperkalemia, CKD-spouse states his kidneys function at 28%, DELVIN with Cpap, possible starting of dementia, confusion at times at night, bilateral lower leg varicosities, umbilical hernia, Hpylori, ambulates very little with walker and mostly wheelchair bound, recent UTI History of Any Multi-Drug Resistant Organisms: ESBL, VRE Date of last positivie culture/infection: 11/28/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 Past Anesthesia/Blood Transfusion Reactions: No Reported Reaction Date of Last Stent Placement:: 10/2015 Past Psychological History: No Psychological Hx Reported Smoking Status: Never smoker Past Alcohol Use History: None Reported Past Drug Use History: None Reported - Past Family History Father Family Medical History: COPD Additional Family Medical History / Comment(s): AT AGE 64- EMPHYSEMA(SMOKER) Mother Family Medical History: Diabetes Mellitus, Hypertension Additional Family Medical History / Comment(s): LUPUS, LEG AMPUTATED. MOM IN HER 60'S Medications and Allergies Home Medications Medication Instructions Recorded Confirmed Type Cholecalciferol [Vitamin D3 (25 25 mcg PO DAILY@1700 04/22/15 09/07/20 History Mcg = 1000 Iu)] allopurinoL [Zyloprim] 100 mg PO DAILY@0800 04/22/15 09/07/20 History Fish Oil/Dha/Epa [Fish Oil 1,200 1 cap PO DAILY@1700 09/06/15 09/07/20 History mg Fish Oil] Ferrous Sulfate [Iron (65 MG 325 mg PO DAILY@1700 10/23/15 09/07/20 History Elemental)] amLODIPine [Norvasc] 5 mg PO BID@0800,1700 08/27/17 09/07/20 History calcitrioL [Calcitriol] 0.25 mcg PO SUTUTHSA@1700 12/16/18 09/07/20 History Atorvastatin [Lipitor] 20 mg PO HS@209912/09/19 09/07/20 History Aspirin EC [Ecotrin Low Dose] 81 mg PO DAILY@1700 08/08/20 09/07/20 History Pantoprazole [Protonix] 40 mg PO DAILY@0600 08/08/20 09/07/20 History Sodium Polystyrene Sulfonate 10 ml PO Q48H 08/08/20 09/07/20 History hydrALAZINE HCL [Apresoline] 100 mg PO TID@0600,1400,2100 08/08/20 09/07/20 Hi [place] HYDROcodone/APAP 10-325MG [[place] 1 tab PO TID PRN #9 tab 08/12/20 09/07/20 Rx 10-325] Epoetin Avelino-Epbx [Retacrit] 10,000 scoop SQ TU@1700 09/07/20 09/07/20 History Furosemide [Lasix] 40 mg PO DAILY@0800 09/07/20 09/07/20 History Gabapentin [Neurontin] 300 mg PO BID@0800,1700 09/07/20 09/07/20 History Hydrophilic Cream [Triad Cream] 1 applic TOPICAL BID PRN 09/07/20 09/07/20 H istory INSULIN ASPART (NovoLOG) [NovoLOG 4 unit SQ TID@0700,1100,1630 09/07/20 09/07/20 History (formulary)] Insulin Glargine,Hum.rec.anlog 32 unit SQ HS@2100 09/07/20 09/07/20 History [Lantus Solostar] Loperamide HCl [Imodium A-D] 2 mg PO DAILY PRN 09/07/20 09/07/20 History Magnesium Hydroxide [Milk of 7,200 mg PO DAILY PRN 09/07/20 09/07/20 History Magnesia Concentrate] Na Phos,M-B/Na Phos,Di-Ba [Fleet 133 ml RECTAL DAILY PRN 09/07/20 09/07/20 History Adult] bisacodyL [Dulcolax] 10 mg RECTAL DAILY PRN 09/07/20 09/07/20 History calcitrioL [Calcitriol] 0.5 mcg PO MOWEFR@1700 09/07/20 09/07/20 History cloNIDine HCL [Catapres] 0.1 mg PO TID@0800,1200,1700 09/07/20 09/07/20 History Allergies Allergy/AdvReac Type Severity Reaction Status Date / Time aspirin [From Anacin] Allergy Rash/Hives Verified 09/07/20 21:27 (Dulce brand ok) sulfamethoxazole AdvReac affects Verified 09/07/20 21:27 [From Bactrim] kidneys trimethoprim [From Bactrim] AdvReac Unknown Verified 09/07/20 21:27 Physical Exam Vitals: Vital Signs Temp Pulse Resp BP Pulse Ox 09/08/20 09:28 70 20 158/51 95 09/08/20 07:10 76 20 159/67 94 L 09/08/20 03:46 68 16 172/67 97 09/08/20 01:39 97.9 F 09/07/20 23:19 99.5 F 09/07/20 23:17 87 18 170/62 97 09/07/20 20:00 103.1 F H 09/07/20 18:49 90 16 172/87 95 09/07/20 18:20 98.9 F 101 H 16 172/87 95 Intake and Output 09/07/20 09/08/20 09/08/20 22:59 06:59 14:59 Other: Weight 136.078 kg Results CBC & Chem 7: 09/08/20 12:46 09/08/20 12:46 Labs: Abnormal Lab Results - Last 24 Hours (Table) 09/07/20 09/07/20 09/07/20 Range/Units 18:38 18:38 18:38 WBC 19.8 H (3.8-10.6) k/uL RBC 2.96 L (4.30-5.90) m/uL Hgb 9.2 L D (13.0-17.5) gm/dL Hct 28.4 L (39.0-53.0) % Neutrophils # 17.5 H (1.3-7.7) k/uL Lymphocytes # 0.9 L (1.0-4.8) k/uL VBG pCO2 22 L (37-51) mmHg VBG HCO3 13 L (24-28) mmol/L Chloride 110 H (98-107) mmol/L Carbon Dioxide 14 L (22-30) mmol/L BUN 100 H (9-20) mg/dL Creatinine 3.24 H (0.66-1.25) mg/dL Glucose 223 H (74-99) mg/dL Magnesium 1.5 L (1.6-2.3) mg/dL Urine Protein (Negative) Urine Blood (Negative) Ur Leukocyte Esterase (Negative) Urine RBC (0-5) /hpf Urine WBC (0-5) /hpf Urine WBC Clumps (None) /hpf Urine Bacteria (None) /hpf Urine Mucus (None) /hpf 09/07/20 Range/Units 20:25 WBC (3.8-10.6) k/uL RBC (4.30-5.90) m/uL Hgb (13.0-17.5) gm/dL Hct (39.0-53.0) % Neutrophils # (1.3-7.7) k/uL Lymphocytes # (1.0-4.8) k/uL VBG pCO2 (37-51) mmHg VBG HCO3 (24-28) mmol/L Chloride (98-107) mmol/L Carbon Dioxide (22-30) mmol/L BUN (9-20) mg/dL Creatinine (0.66-1.25) mg/dL Glucose (74-99) mg/dL Magnesium (1.6-2.3) mg/dL Urine Protein 2+ H (Negative) Urine Blood Trace H (Negative) Ur Leukocyte Esterase Large H (Negative) Urine RBC 14 H (0-5) /hpf Urine WBC 51 H (0-5) /hpf Urine WBC Clumps Moderate H (None) /hpf Urine Bacteria Many H (None) /hpf Urine Mucus Rare H (None) /hpf
[2020-09-08 20:26] LABS: Glucose,Whole Blood 132 mg/dL (75-99)
[2020-09-08] MEDS: ENOXAPARIN 30 MG/0.3 ML SYRINGE SQ SCH (20:47)
[2020-09-08] MEDS: ATORVASTATIN 20 MG TAB PO SCH (20:49)
[2020-09-08] MEDS: INSULIN DETEMIR (LEVEMIR) 100 UNIT/ML SYR SQ SCH (20:49)
[2020-09-08] MEDS ORDERED: SODIUM POLYSTYRENE SULFONATE 15 GM/60 ML BOTTLE PO SCH (21:00)
[2020-09-08] MEDS: SODIUM BICARBONATE TAB 650 MG TAB PO SCH (21:02)
[2020-09-09] MEDS: hydrALAZINE HCL 50 MG TAB PO SCH ×3 (06:06→20:09)
[2020-09-09] MEDS: PANTOPRAZOLE 40 MG TABLET PO SCH (06:06)
[2020-09-09] MEDS: ACETAMINOPHEN TAB 325 MG TAB PO PRN (06:08)
--- NOTE | 2020-09-09 06:21 | CONS ---
CONSULTATION DATE OF SERVICE: 09/08/2020 REASON FOR CONSULTATION: Urinary tract infection. HISTORY OF PRESENT ILLNESS: The patient is a 69-year-old male with a past medical history significant for urinary tract infection. Maria catheter has been discontinued recently. The patient presenting to the ER concerning for rigor and chills. The patient denies having any headache. No URI symptoms. No chest pain, shortness of breath. Occasional cough. No nausea, vomiting. No abdominal pain. Did have some diarrhea. Does complain of some urinary frequency but no burning, suprapubic or flank pain. On presentation to the hospital, the patient did have a fever of 102 degrees Fahrenheit. The patient did have a white count of 19.8 repeat is 23.1. The patient did have a creatinine of 3.05. Urine has been positive with large leukocyte esterase, . Cheema PCR was negative. The patient did have a chest x-ray, no acute cardiopulmonary process. The patient was started on Rocephin and admitted to the hospital. Infectious Disease was consulted for further management of antibiotic therapy. REVIEW OF SYSTEMS: Positive points have been mentioned in HPI. Rest of systems are negative. PAST MEDICAL HISTORY: COPD, heart failure, diabetes mellitus, hypertension, hyperlipidemia, osteoarthritis, pneumonia sleep apnea. PAST SURGICAL HISTORY: Cholecystectomy, PTCA with stent, appendectomy and bilateral cataract surgery. SOCIAL HISTORY: [facility]iary resident. No smoking. No drinking. FAMILY HISTORY: Father with history of COPD. Mother history of diabetes. ALLERGIES: BACTRIM AND ASPIRIN. MEDICATIONS: The patient is currently on Tylenol, [place], Zyloprim, Norvasc, aspirin, Lipitor, Dulcolax, Rocaltrol, Rocephin 1 g daily, Catapres, Lovenox, iron sulfate, Lasix, Neurontin, Protonix. PHYSICAL EXAMINATION: Blood pressure 134/60 with a pulse of 70, temp is 97.8. He is 95% on 2 L nasal cannula. GENERAL DESCRIPTION: An elderly male lying in bed in no distress. No tachypnea or accessory muscles of respiration use. HEENT: Examination shows slight pallor. No scleral icterus. Oral mucous membrane is dry. NECK: Trachea central, no thyromegaly. LUNGS: Unlabored breathing, clear to auscultation anteriorly. No wheeze or crackle. HEART: S1-S2, regular rate and rhythm. ABDOMEN: Soft, no tenderness. EXTREMITIES: No edema of the feet. LABS: Hemoglobin is 7.6, white count 23.1. BUN of 97, creatinine 3.05. DIAGNOSTIC IMPRESSION AND PLAN: Patient admitted to the hospital with rigors, chills, fever, source is likely urinary tract infection in this patient with possible concern for urinary outflow obstruction. Hence, the patient did have a Maria catheter that has been discontinued recently. PLAN: 1. We will check a postvoid residual and if more than 300 may benefit from reinsertion of Maria catheter and urology evaluation. 2. Obtain ultrasound of the kidneys. 3. In view of urine culture positive for ESBL, we will start the patient on Invanz 500 mg daily while waiting for the culture to finalize. 4. We will follow on clinical condition and further adjust medication if needed. Thank you for this consultation. Will follow this patient along with you. TREASURE / ATILION: [id number] / MTDD
[2020-09-09] MEDS: IPRATROPIUM-ALBUTEROL 3 ML NEB INHALATION SCH ×5 (06:26→20:57)
[2020-09-09 06:34] LABS: African American GFR (CKD) 24 (>60 ml/min/1.73 sqM); Anion Gap 13 mmol/L; Blood Urea Nitrogen 92 mg/dL (9-20); Calcium 9.4 mg/dL (8.4-10.2); Carbon Dioxide 15 mmol/L (22-30); Chloride 115 mmol/L (98-107); Glucose 102 mg/dL (74-99); Non-African American GFR(CKD) 21 (>60 ml/min/1.73 sqM); Potassium 4.2 mmol/L (3.5-5.1); Sodium 143 mmol/L (137-145)
--- NOTE | 2020-09-09 07:05 | XR ---
EXAM: XR Chest, 1 View CLINICAL HISTORY: ITS.REASON XR Reason: sob TECHNIQUE: Frontal view of the chest. COMPARISON: 12/11/2019 FINDINGS: Lungs: No consolidation or mass. Pleural space: No acute findings Heart: cardiomegaly. Bones/joints: No acute findings. IMPRESSION: No acute cardiopulmonary process.
[2020-09-09 07:06] LABS: Basophils % (A) 0 %; Eosinophils # (A) 0.2 k/uL (0-0.7); Eosinophils % (A) 1 %; HCT 28.1 % (39.0-53.0); HGB 8.6 gm/dL (13.0-17.5); Hypochromasia Marked; Lymphocytes # (A) 0.9 k/uL (1.0-4.8); Lymphocytes % (A) 4 %; MCH 30.1 pg (25.0-35.0); MCHC 30.5 g/dL (31.0-37.0); MCV 98.9 fL (80.0-100.0); Macrocytosis Slight; Mean Platelet Volume 7.7; Monocytes # (A) 0.9 k/uL (0-1.0); Monocytes % (A) 4 %; Neutrophils # (A) 19.2 k/uL (1.3-7.7); Neutrophils % (A) 90 %; Platelet Count 281 k/uL (150-450); RBC 2.84 m/uL (4.30-5.90); RDW 15.5 % (11.5-15.5); WBC 21.5 k/uL (3.8-10.6)
[2020-09-09 07:08] LABS: Glucose,Whole Blood 127 mg/dL (75-99)
[2020-09-09 07:12] LABS: Magnesium 1.6 mg/dL (1.6-2.3)
[2020-09-09] MEDS: INSULIN ASPART (NovoLOG) 100 UNIT/ML VIAL SQ SCH ×7 (07:12→20:08)
[2020-09-09] MEDS: amLODIPine 5 MG TAB PO SCH ×2 (08:12→17:04)
[2020-09-09] MEDS: allopurinoL 100 MG TAB PO SCH (08:12)
[2020-09-09] MEDS: ENOXAPARIN 30 MG/0.3 ML SYRINGE SQ SCH (08:12)
[2020-09-09] MEDS: cloNIDine HCL 0.1 MG TAB PO SCH ×3 (08:12→17:04)
[2020-09-09] MEDS: FUROSEMIDE 40 MG TAB PO SCH (08:12)
[2020-09-09] MEDS: SODIUM BICARBONATE TAB 650 MG TAB PO SCH ×3 (08:12→20:09)
[2020-09-09] MEDS: ERTAPENEM 0.5 GM in SODIUM CHLORIDE 0.9% 50 ML IVPB SCH (08:13)
--- NOTE | 2020-09-09 10:24 | US ---
EXAMINATION TYPE: US kidneys/renal and bladder DATE OF EXAM: 09/09/2020 COMPARISON: US CLINICAL HISTORY: uti and bacteremia. sepsis EXAM MEASUREMENTS: Right Kidney: 10.1 x 5.2 x 5.7 cm Left Kidney: 12.6 x 4.1 x 6.6 cm Post Void Residual Volume: not assessed on inpatient US exam is technically limited by large patient body habitus and his inability to turn. Right Kidney: extracapsular crescent shaped area seen mid pole suggests sonographic "sweat sign" for medical renal disease Left Kidney: borders not well seen due to above stated limitations. mid cortical hypoechoic nodule se en = 1.6 x 1.6 x 1.8cm Bladder: no masses seen Bilateral Jets seen: not seen as constant patient respiratory interference was causing motion artif act No hydronephrosis or nephrolithiasis IMPRESSION: Technically Limited exam demonstrates findings suggestive of chronic medical renal disease. Correlate clinically. Small lesion left kidney indeterminate and too small to characterize.
[2020-09-09 11:17] LABS: Glucose,Whole Blood 113 mg/dL (75-99)
--- NOTE | 2020-09-09 12:13 | P.PN ---
Subjective Progress Note Date: 09/09/20 HISTORY OF PRESENT ILLNESS This is a 69-year-old male patient treated for urinary tract infection. Patient has been started on Rocephin. Previous Urine culture was positive for ESBL E. coli and patient transitioned to Invanz 500 mg daily. Urine culture from this admission is gram-negative bacilli. Chest x-ray shows no acute cardiopulmonary process. Renal ultrasound was limited exam suggestive of chronic medical renal disease. Small lesion left kidney indeterminate and too small to characterize. Patient denies having any fever or chills. He currently has a condom catheter in place. He is having diarrhea for which C. difficile toxin will be checked. Patient has been afebrile, heart rate 96, blood pressure 1 4457, pulse ox 95% on 2 L nasal cannula. WBC 21.5, hemoglobin 8.6. BUN 92 and creatinine 2.97. Blood culture is no growth after 24 hours. PHYSICAL EXAMINATION Gen: This is a morbidly obese 69-year-old male. He is resting in bed and appears to be comfortable. HEENT: Head is atraumatic, normocephalic. Pupils equal, round. Sclerae is anicteric. NECK: Supple. LUNGS: Clear to auscultation. No wheezes or rhonchi. No intercostal retractions. HEART: Regular rate and rhythm. ABDOMEN: Soft. Bowel sounds are present. No masses. No tenderness. EXTREMITIES: No pedal edema. No calf tenderness. NEUROLOGICAL: Patient is awake, alert and oriented x3. ASSESSMENT Acute urinary tract infection Acute kidney injury Diarrhea PLAN Continue Invanz Follow-up on urine culture Send stool specimen for C. difficile toxin Further recommendations as patient progresses. The above dictated assessment and findings were discussed with Dr. Watson. The impression and plan of care have been directed as dictated. Mary Ortiz nurse practitioner acting as scribe for Dr. Watson. Objective - Vital Signs Vital signs: Vital Signs Temp 99.3 F 09/09/20 06:45 Pulse 96 09/09/20 06:45 Resp 18 09/09/20 06:45 BP 144/57 09/09/20 06:45 Pulse Ox 95 09/09/20 06:45 Intake & Output 09/08/20 09/09/20 09/09/20 18:59 06:59 18:59 Intake Total 150 Balance 150 Weight 136.078 kg Intake: Oral 150 Other: Voiding Method Diaper Diaper # Voids 1 # Bowel Movements 1 - Labs CBC & Chem 7: 09/08/20 12:46 09/09/20 05:13 Labs: Abnormal Lab Results - Last 24 Hours (Table) 09/08/20 09/08/20 09/08/20 Range/Units 12:46 12:46 13:24 WBC 23.1 H (3.8-10.6) k/uL RBC 2.46 L (4.30-5.90) m/uL Hgb 7.6 L D (13.0-17.5) gm/dL Hct 23.6 L (39.0-53.0) % MCHC (31.0-37.0) g/dL Neutrophils # 21.2 H (1.3-7.7) k/uL Lymphocytes # 0.7 L (1.0-4.8) k/uL Monocytes # 1.1 H (0-1.0) k/uL Chloride 115 H (98-107) mmol/L Carbon Dioxide 15 L (22-30) mmol/L BUN 97 H (9-20) mg/dL Creatinine 3.05 H (0.66-1.25) mg/dL Glucose 119 H (74-99) mg/dL POC Glucose (mg/dL) 113 H (75-99) mg/dL 09/08/20 09/09/20 09/09/20 Range/Units 20:22 05:13 05:13 WBC 21.5 H (3.8-10.6) k/uL RBC 2.84 L (4.30-5.90) m/uL Hgb 8.6 L (13.0-17.5) gm/dL Hct 28.1 L (39.0-53.0) % MCHC 30.5 L (31.0-37.0) g/dL Neutrophils # 19.2 H (1.3-7.7) k/uL Lymphocytes # 0.9 L (1.0-4.8) k/uL Monocytes # (0-1.0) k/uL Chloride 115 H (98-107) mmol/L Carbon Dioxide 15 L (22-30) mmol/L BUN 92 H (9-20) mg/dL Creatinine 2.97 H (0.66-1.25) mg/dL Glucose 102 H (74-99) mg/dL POC Glucose (mg/dL) 132 H (75-99) mg/dL 09/09/20 Range/Units 06:55 WBC (3.8-10.6) k/uL RBC (4.30-5.90) m/uL Hgb (13.0-17.5) gm/dL Hct (39.0-53.0) % MCHC (31.0-37.0) g/dL Neutrophils # (1.3-7.7) k/uL Lymphocytes # (1.0-4.8) k/uL Monocytes # (0-1.0) k/uL Chloride (98-107) mmol/L Carbon Dioxide (22-30) mmol/L BUN (9-20) mg/dL Creatinine (0.66-1.25) mg/dL Glucose (74-99) mg/dL POC Glucose (mg/dL) 127 H (75-99) mg/dL Microbiology - Last 24 Hours (Table) 09/07/20 18:38 Blood Culture - Preliminary Blood No Growth after 24 hours 09/07/20 18:38 Blood Culture - Preliminary Blood No Growth after 24 hours 09/07/20 20:25 Urine Culture - Preliminary Urine,Catheterized
--- NOTE | 2020-09-09 13:36 | P.CONS ---
History of Present Illness - Reason for Consult Consult date: 09/09/20 wound care - History of Present Illness This is a 69-year-old patient known to the wound care center who was last seen in wound care in 2019. Patient had a nonhealing ulceration to the left lower extremity anterior aspect that has been treated and healed. The and will continue to use triad to the site as needed. Patient has been a resident at [facility] for the past month. He has developed a nonhealing ulce ration to the sacrum stage II pressure ulcer with fatty layer exposure. Ulceration has serous drainage noted with wound edges attached to the wound base. Ecchymosis and maceration noted to the periwound. Right posterior lower extremity is a stage II pressure ulcer Limited to skin breakdown with g ranulation seen throughout the wound bed and minimal Slough, left posterior lower extremity superior has a stage II pressure ulcer Limited to skin breakdown with granulation seen throughout the wound bed and minimal Slough. Review Of Systems: Constitutional: No fever, no chills, no night sweats. No weight change. No weakness, fatigue or lethargy. No daytime sleepiness. Integumentary:reports wounds, no lesions. No rash or pruritus. No unusual bruising. No change in hair or nails. Physical exam: General Appearance: Alert, cooperative, no distress, appears stated age. Skin: See HPI all other Skin color, texture, tugor normal, no rashes or lesions. Neurologic: Alert oriented x3 Assessment/plan: 1. Stage II pressure ulcer sacrum with fat layer exposure: Apply honey alginate, saline moistened gauze, sacrum border foam. Change Wednesday. Work on offloading. The patient should utilize a waffle cushion when sitting. Review surface algorithm for appropriate surfaces 2. Right and left posterior superior stage II ulcerations Limited skin breakdown. Apply zinc barrier cream. 3. Chronic hypertension with inflammation left lower extremity: Apply triad, rolled gauze, Pastor wrap. Elevate legs 30 minutes 3 times a day as needed.. Thank you for the consultation any questions please contact the wound care center DNP note has been reviewed and discussed with Dr. Foster and the impression and plan of care has been directed as dictated. Past Medical History Past Medical History: Heart Failure, COPD, Diabetes Mellitus, Hyperlipidemia, Hypertension, Osteoarthritis (OA), Pneumonia, Renal Disease, Sleep Apnea/CPAP/BIPAP, Vascular Disorder Additional Past Medical History / Comment(s): IDDM type II, 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, chronic venous ulcer left anterior lower leg-treated in [facility], sepsis from L leg wound, chronic anemia, hyperkalemia, CKD-spouse states his kidneys function at 28%, DELVIN with Cpap, possible starting of dementia, confusion at times at night, bilateral lower leg varicosities, umbilical hernia, Hpylori, ambulates very little with walker and mostly wheelchair bound, recent UTI History of Any Multi-Drug Resistant Organisms: ESBL, 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 Past Anesthesia/Blood Transfusion Reactions: No Reported Reaction Date of Last Stent Placement:: 10/2015 Past Psychological History: No Psychological Hx Reported Smoking Status: Never smoker Past Alcohol Use History: None Reported Past Drug Use History: None Reported - Past Family History Father Family Medical History: COPD Additional Family Medical History / Comment(s): AT AGE 64- EMPHYSEMA(SMOKER) Mother Family Medical History: Diabetes Mellitus, Hypertension Additional Family Medical History / Comment(s): LUPUS, LEG AMPUTATED. MOM IN HER 60'S Medications and Allergies Home Medications Medication Instructions Recorded Confirmed Type Cholecalciferol [Vitamin D3 (25 25 mcg PO DAILY@1700 04/22/15 09/07/20 History Mcg = 1000 Iu)] allopurinoL [Zyloprim] 100 mg PO DAILY@0800 04/22/15 09/07/20 History Fish Oil/Dha/Epa [Fish Oil 1,200 1 cap PO DAILY@1700 09/06/15 09/07/20 History mg Fish Oil] Ferrous Sulfate [Iron (65 MG 325 mg PO DAILY@0 10/23/15 09/07/20 History Elemental)] amLODIPine [Norvasc] 5 mg PO BID@0800,1700 08/27/17 09/07/20 History calcitrioL [Calcitriol] 0.25 mcg PO SUTUTHSA@1700 12/16/18 09/07/20 History Atorvastatin [Lipitor] 20 mg PO HS@2100 12/09/19 09/07/20 History Aspirin EC [Ecotrin Low Dose] 81 mg PO DAILY@1700 08/08/20 09/07/20 History Pantoprazole [Protonix] 40 mg PO DAILY@0600 08/08/20 09/07/20 History Sodium Polystyrene Sulfonate 10 ml PO Q48H 08/08/20 09/07/20 History hydrALAZINE HCL [Apresoline] 100 mg PO TID@0600,1400,2100 08/08/20 09/07/20 Hist ory HYDROcodone/APAP 10-325MG [Magna 1 tab PO TID PRN #9 tab 08/12/20 09/07/20 Rx 10-325] Epoetin Avelino-Epbx [Retacrit] 10,000 scoop SQ TU@0 09/07/20 09/07/20 History Furosemide [Lasix] 40 mg PO DAILY@0800 09/07/20 09/07/20 History Gabapentin [Neurontin] 300 mg PO BID@0800,1700 09/07/20 09/07/20 History Hydrophilic Cream [Triad Cream] 1 applic TOPICAL BID PRN 09/07/20 09/07/20 His tory INSULIN ASPART (NovoLOG) [NovoLOG 4 unit SQ TID@0700,1100,1630 09/07/20 09/07/20 History (formulary)] Insulin Glargine,Hum.rec.anlog 32 unit SQ HS@209909/07/20 09/07/20 History [Lantus Solostar] Loperamide HCl [Imodium A-D] 2 mg PO DAILY PRN 09/07/20 09/07/20 History Magnesium Hydroxide [Milk of 7,200 mg PO DAILY PRN 09/07/20 09/07/20 History Magnesia Concentrate] Na Phos,M-B/Na Phos,Di-Ba [Fleet 133 ml RECTAL DAILY PRN 09/07/20 09/07/20 History Adult] bisacodyL [Dulcolax] 10 mg RECTAL DAILY PRN 09/07/20 09/07/20 History calcitrioL [Calcitriol] 0.5 mcg PO MOWEFR@1700 09/07/20 09/07/20 History cloNIDine HCL [Catapres] 0.1 mg PO TID@0800,1200,1700 09/07/20 09/07/20 History Allergies Allergy/AdvReac Type Severity Reaction Status Date / Time aspirin [From Anacin] Allergy Rash/Hives Verified 09/07/20 21:27 (Dulce brand ok) sulfamethoxazole AdvReac affects Verified 09/07/20 21:27 [From Bactrim] kidneys trimethoprim [From Bactrim] AdvReac Unknown Verified 09/07/20 21:27 Physical Exam Vitals: Vital Signs Temp Pulse Pulse Resp BP BP Pulse Ox 09/09/20 12:03 108 H 09/09/20 11:53 102 H 09/09/20 06:45 99.3 F 96 18 144/57 95 09/09/20 06:38 115 H 09/09/20 06:29 107 H 09/09/20 02:00 98.2 F 77 18 152/66 96 09/08/20 20:00 97.8 F 72 17 134/60 95 09/08/20 17:30 98.9 F 72 18 197/69 94 L 09/08/20 15:49 99.0 F 60 18 135/49 98 09/08/20 14:11 58 L 20 137/50 96 Intake and Output 09/08/20 09/09/20 09/09/20 22:59 06:59 14:59 Intake Total 150 Balance 150 Intake: Oral 150 Other: Voiding Method Diaper Diaper # Voids 1 # Bowel Movements 1 Weight 136.078 kg Results CBC & Chem 7: 09/08/20 12:46 09/09/20 05:13 Labs: Abnormal Lab Results - Last 24 Hours (Table) 09/08/20 09/09/20 09/09/20 Range/Units 20:22 05:13 05:13 WBC 21.5 H (3.8-10.6) k/uL RBC 2.84 L (4.30-5.90) m/uL Hgb 8.6 L (13.0-17.5) gm/dL Hct 28.1 L (39.0-53.0) % MCHC 30.5 L (31.0-37.0) g/dL Neutrophils # 19.2 H (1.3-7.7) k/uL Lymphocytes # 0.9 L (1.0-4.8) k/uL Chloride 115 H (98-107) mmol/L Carbon Dioxide 15 L (22-30) mmol/L BUN 92 H (9-20) mg/dL Creatinine 2.97 H (0.66-1.25) mg/dL Glucose 102 H (74-99) mg/dL POC Glucose (mg/dL) 132 H (75-99) mg/dL 09/09/20 09/09/20 Range/Units 06:55 11:15 WBC (3.8-10.6) k/uL RBC (4.30-5.90) m/uL Hgb (13.0-17.5) gm/dL Hct (39.0-53.0) % MCHC (31.0-37.0) g/dL Neutrophils # (1.3-7.7) k/uL Lymphocytes # (1.0-4.8) k/uL Chloride (98-107) mmol/L Carbon Dioxide (22-30) mmol/L BUN (9-20) mg/dL Creatinine (0.66-1.25) mg/dL Glucose (74-99) mg/dL POC Glucose (mg/dL) 127 H 113 H (75-99) mg/dL Microbiology - Last 24 Hours (Table) 09/07/20 20:25 Urine Culture - Preliminary Urine,Catheterized Gram Neg Bacilli 09/07/20 18:38 Blood Culture - Preliminary Blood No Growth after 24 hours 09/07/20 18:38 Blood Culture - Preliminary Blood No Growth after 24 hours Assessment and Plan (1) Pressure injury of sacral region, stage 2 Current Visit: No Status: Acute Code(s): L89.152 - PRESSURE ULCER OF SACRAL REGION, STAGE 2 SNOMED Code(s): 756534245 (2) Chronic venous hypertension with inflammation involving left side Current Visit: Yes Status: Acute Code(s): I87.322 - CHRONIC VENOUS HYPERTENSION W INFLAMMATION OF L LOW EXTREM SNOMED Code(s): 631998439 (3) Pressure ulcer of left leg, stage 2 Current Visit: Yes Status: Acute Code(s): L89.892 - PRESSURE ULCER OF OTHER SITE, STAGE 2 SNOMED Code(s): 959841037 (4) Pressure ulcer of right leg, stage 2 Current Visit: Yes Status: Acute Code(s): L89.892 - PRESSURE ULCER OF OTHER SITE, STAGE 2 SNOMED Code(s): 967331167 (5) Diabetes with skin ulcer Current Visit: No Status: Acute Code(s): E11.622 - TYPE 2 DIABETES MELLITUS WITH OTHER SKIN ULCER; L98.499 - NON-PRESSURE CHRONIC ULCER OF SKIN OF SITES W UNSP SEVERITY SNOMED Code(s): 73682008
[2020-09-09 15:32] VITALS: BMI 43.0
[2020-09-09 16:20] LABS: Glucose,Whole Blood 203 mg/dL (75-99)
[2020-09-09] MEDS: HYDROPHILIC CREAM 180 GM TUBE TOPICAL SCH (17:03)
[2020-09-09] MEDS: FERROUS SULFATE 325 MG TAB PO SCH (17:03)
[2020-09-09] MEDS: CHOLECALCIFEROL 25 MCG (1000 IU) TABLET PO SCH (17:04)
[2020-09-09] MEDS: ASPIRIN 81 MG PO SCH (17:04)
[2020-09-09] MEDS: NON FORMULARY DRUG (Fish Oil/Dha/Epa [Fish Oil 1,200 Mg Fish Oil] 1 EACH Capsule) PO SCH (17:06)
--- NOTE | 2020-09-09 19:49 | CONS ---
CONSULTATION REASON FOR CONSULT: Renal failure. HISTORY OF PRESENT ILLNESS: The patient is a 69-year-old male with history of chronic kidney disease, NKF stage IV with baseline creatinine about 2.9-3 mg/dL. The patient was admitted to the hospital with history of ulcer on his left leg which is not healing. He denied any fever or chills. The patient denies any urinary symptoms. Patient was also noted to have a lot of tremors in his upper extremities and that is why he was brought in from the [facility] as well. Serum creatinine has been 3.1-2.9 mg/dL. Currently patient is maintained on oral Lasix 40 mg daily. He has been started on antibiotics. 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 PAST SURGICAL HISTORY: Appendectomy, cholecystectomy, cardiac catheterization, coronary stent placement, cataract surgery, surgery for a testicular surgery, PICC line insertion and removal. SOCIAL HISTORY: Negative for smoking, drug abuse or alcohol abuse. MEDICATIONS: Medications prior to admission included vitamin D, Zyloprim, fish oil, iron, Norvasc, calcitriol, Lipitor, aspirin, Lasix, Protonix, hydralazine, Lipitor, Neurontin, [place], insulin, clonidine. ALLERGIES: ASPIRIN, BACTRIM. REVIEW OF SYSTEMS: As per HPI. Other systems negative. EXAMINATION: Patient is comfortable, awake, not in any acute distress. Blood pressure was 144/57, heart rate 96 per minute, he is afebrile. Examination of the heart S1, S2. Examination of the lungs, bilateral breath sounds are heard. Abdomen is soft, nontender. Examination of lower extremities shows chronic skin changes right lower extremity. Left lower extremity is currently wrapped. STRING CUTTER exam shows patient does not move his lower extremities much but he is able to move his toes. Otherwise, no significant motor deficits noted. LAB: Show sodium 143, potassium 4.2, chloride 115, CO2 is 15, BUN 92, creatinine 2.97, hemoglobin 8.6 g/dL. UA shows 2+ protein, WBC clumps and WBCs 51 noted. ASSESSMENT: 1. Chronic kidney disease, NKF stage IV. Renal function at baseline, serum creatinine about 2.9-3 mg/dL at baseline. 2. Non gap metabolic acidosis secondary to renal failure. 3. Chronic kidney disease mineral bone disorder, maintained on calcitriol. 4. Anemia of chronic disease, currently on Aranesp. 5. Left lower extremity wounds and ulceration, maintained on antibiotics. 6. Chronic edema, maintained on Lasix 40 mg daily which we can continue. 7. Gram negative urinary tract infection maintained on antibiotics. PLAN: Discontinue IV fluids. Continue with the sodium bicarb. Repeat labs in a.m. Hold off on the Kayexalate as there is no hyperkalemia currently and check phosphorus levels. Continue with the antibiotics as well. Thank you for this consultation. We will continue to follow the patient with you during his hospitalization. MMODL / IJN: [id number] /
[2020-09-09 20:03] LABS: Glucose,Whole Blood 204 mg/dL (75-99)
[2020-09-09] MEDS: INSULIN DETEMIR (LEVEMIR) 100 UNIT/ML SYR SQ SCH (20:08)
[2020-09-09] MEDS: GABAPENTIN 300 MG CAP PO SCH (20:09)
[2020-09-09] MEDS: ATORVASTATIN 20 MG TAB PO SCH (20:09)
[2020-09-09] MEDS: SODIUM CHLORIDE 0.9% 1,000 ML IV SCH (20:11)
--- NOTE | 2020-09-09 20:39 | P.PN ---
Progress Note - Text Progress Note Date: 09/09/20 Chief Complaint: Tremors History of presenting complaint: Patient is a 69-year-old male with a past medical history of chronic venous stasis ulcers with recurrent cellulitis of the lower extremities, sleep apnea, hypertension, diabetes mellitus type 2 and chronic kidney disease stage IV, peptic ulcer disease. Currently at [facility]. EMS was called because patient was noted to have tremors. Patient is alert. Blood glucose was 259. It is now felt the patient had José Miguel's. Positive fever and had a fever in the ER. Patient not sure how the wound of the left lower extremities doing. He gets dressing changes every day. Denies any urinary symptoms. Denies any history symptoms. Had a fever 103.1 in the ER. Decreased appetite. Diet. Admitted with acute UTI with cystitis causing sepsis, acute metabolic encephalopathy. Today-sitting up. Feeling a bit better. at the bedside. Eating well. For more awake. Review of systems: Was done for constitutional, cardiovascular, GI, pulmonary. relevant finding as above Active Medications Acetaminophen (Acetaminophen Tab 325 Mg Tab) 650 mg PO Q6HR PRN PRN Reason: Mild Pain or Fever > 100.5 Last Admin: 09/09/20 06:08 Dose: 650 mg Documented by: Hydrocodone Bitart/Acetaminophen (Hydrocodone/Apap 10-325mg 1 Each Tab) 1 each PO TID PRN PRN Reason: Pain Albuterol/Ipratropium (Ipratropium-Albuterol 3 Ml Neb) 3 ml INHALATION RT-Q4H [facility] Last Admin: 09/09/20 16:48 Dose: 3 ml Documented by: Allopurinol (Allopurinol 100 Mg Tab) 100 mg PO DAILY@0800 [facility] Last Admin: 09/09/20 08:12 Dose: 100 mg Documented by: Amlodipine Besylate (Amlodipine 5 Mg Tab) 5 mg PO BID@0800,1700 [facility] Last Admin: 09/09/20 17:04 Dose: 5 mg Documented by: Aspirin (Aspirin 81 Mg) 81 mg PO DAILY@1700 [facility] [place] Last Admin: 09/09/20 17:04 Dose: 81 mg Documented by: Atorvastatin Calcium (Atorvastatin 20 Mg Tab) 20 mg PO HS@2100 [facility] [place] Last Admin: 09/09/20 20:09 Dose: 20 mg Documented by: Bisacodyl (Bisacodyl 10 Mg Supp) 10 mg RECTAL DAILY PRN PRN Reason: Constipation Calcitriol (Calcitriol 0.25 Mcg Cap) 0.25 mcg PO SUTUTHSA@1700 [facility] [place] Last Admin: 09/08/20 18:20 Dose: 0.25 mcg Documented by: Calcitriol (Calcitriol 0.25 Mcg Cap) 0.5 mcg PO MOWEFR@1700 [facility] [place] Last Admin: 09/09/20 17:04 Dose: 0.5 mcg Documented by: Cholecalciferol (Cholecalciferol 25 Mcg (1000 Iu) Tablet) 25 mcg PO DAILY@1700 [facility] [place] Last Admin: 09/09/20 17:04 Dose: 25 mcg Documented by: Clonidine (Clonidine Hcl 0.1 Mg Tab) 0.1 mg PO TID@0800,1200,1700 [facility] [place] Last Admin: 09/09/20 17:04 Dose: 0.1 mg Documented by: Darbepoetin Avelino (Darbepoetin Avelino 25 Mcg/0.42 Ml Syringe) 25 mcg SQ TU@1700 [facility] Enoxaparin Sodium (Enoxaparin 30 Mg/0.3 Ml Syringe) 30 mg SQ DAILY [facility] [place] Last Admin: 09/09/20 08:12 Dose: 30 mg Documented by: Ferrous Sulfate (Ferrous Sulfate 325 Mg Tab) 325 mg PO DAILY@1700 [facility] [place] Last Admin: 09/09/20 17:03 Dose: 325 mg Documented by: Furosemide (Furosemide 40 Mg Tab) 40 mg PO DAILY@0800 [facility] Last Admin: 09/09/20 08:12 Dose: 40 mg Documented by: Gabapentin (Gabapentin 300 Mg Cap) 300 mg PO HS [facility] Last Admin: 09/09/20 20:09 Dose: 300 mg Documented by: Hydralazine HCl (Hydralazine Hcl 50 Mg Tab) 100 mg PO TID@0600,1400,2100 [facility] [place] Last Admin: 09/09/20 20:09 Dose: 100 mg Documented by: Ertapenem 0.5 gm/ Sodium (Chloride) 50 mls @ 100 mls/hr IVPB DAILY [facility]; Protocol Last Admin: 09/09/20 08:13 Dose: 100 mls/hr Documented by: Insulin Aspart (Insulin Aspart (Novolog) 100 Unit/Ml Vial) 4 unit SQ TID@0700,1100,1630 [facility] [place] Last Admin: 09/09/20 17:08 Dose: 4 unit Documented by: Insulin Aspart (Insulin Aspart (Novolog) 100 Unit/Ml Vial) 0 unit SQ ACHS [facility] [place]; Protocol Last Admin: 09/09/20 20:08 Dose: 4 unit Documented by: Insulin Detemir (Insulin Detemir (Levemir) 100 Unit/Ml Syr) 32 unit SQ HS@2100 [facility] [place] Last Admin: 09/09/20 20:08 Dose: 32 unit Documented by: Loperamide HCl (Loperamide 2 Mg Cap) 2 mg PO DAILY PRN PRN Reason: Diarrhea Magnesium Hydroxide (Magnesium Hydroxide 2,400 Mg/10 Ml Cup) 7,200 mg PO DAILY PRN PRN Reason: Constipation Multi-Ingred Cream/Lotion/Oil/Oint (Hydrophilic Cream 180 Gm Tube) 1 applic TOPICAL BID PRN PRN Reason: redness/excoriation Multi-Ingred Cream/Lotion/Oil/Oint (Hydrophilic Cream 180 Gm Tube) 1 applic TOPICAL DAILY [facility] Last Admin: 09/09/20 17:03 Dose: 1 applic Documented by: Naloxone HCl (Naloxone 0.4 Mg/Ml 1 Ml Vial) 0.2 mg IV Q2M PRN PRN Reason: Opioid Reversal Non-Formulary Medication (Fish Oil/Dha/Epa [Fish Oil 1,200 Mg Fish Oil]) 1 cap PO DAILY@1700 [facility] Last Admin: 09/09/20 17:06 Dose: Not Given Documented by: Pantoprazole Sodium (Pantoprazole 40 Mg Tablet) 40 mg PO DAILY@0600 [facility] [place] Last Admin: 09/09/20 06:06 Dose: 40 mg Documented by: Sodium Bicarbonate (Sodium Bicarbonate Tab 650 Mg Tab) 650 mg PO TID [facility] [place] Last Admin: 09/09/20 20:09 Dose: 650 mg Documented by: Sodium Biphosphate/Sodium Phosphate (Na Phos,M-B/Na Phos,Di-Ba 133 Ml Enema) 133 ml RECTAL DAILY PRN PRN Reason: Constipation Past medical history to include: chronic left lower extremity wound with cellulitis, hypertension with chronic kidney disease, morbid obesity, COPD, diabetes, hypertension, osteoarthritis, CKD stage III, diabetic peripheral neuropathy, obstructive sleep apnea uses CPAP, chronic recurrent umbilical hernia, mild cognitive impairment, baseline gait dysfunction-mainly uses a wheelchair. Social history: Nonsmoker. . Currently at [facility]. On examination: VITAL SIGNS: 98.2, 94, 18, 134 with 59, 97% on 2 L GENERAL APPEARANCE: Reclining in bed, more awake today HEENT: Normal external appearance of nose and ear. Oral cavity normal EYES: Pupils equal. Conjunctiva pale NECK: JVD not raised. Mass not palpable. RESPIRATORY: Respiratory effort normal. Lungs clear to auscultation. CARDIOVASCULAR: First and second sounds normal. No edema. ABDOMEN: Soft. Liver and spleen not palpable. No tenderness. No mass palpable. Umbilical hernia, reducible PSYCHIATRY: Able tonsil simple questions DERMATOLOGICAL: Left lower extremity wound-rather dried-up INVESTIGATIONS, reviewed in the clinical context: September 09: WBC 21.5 hemoglobin 8.6 potassium 4.2 bicarbonate 15 BUN 92 creatinine 2.97 WBC 23.1 hemoglobin 7.6 platelets 262 potassium 3.9 x 12 15 creatinine 3.05 bun 97 Admission testing: UA positive for leukoesterase WBC bacteria Bun 100 creatinine 3.24 Assessment and plan: -Acute metabolic encephalopathy from underlying UTI. Improving -Sepsis from underlying UTI, IV fluids, IV ceftriaxone. Gram-negative bacilli -Acute UTI from cystitis causing sepsis, IV ceftriaxone -chronic kidney disease stage 4 from diabetic kidney disease and nephros clerosis, follow renal function -Chronic duodenal ulcer and antral gastritis , continue Protonix -Hypertension with chronic kidney disease, 40 vital signs -Morbid obesity BMI 43, follow diet -COPD," and as needed -Diabetes mellitus type 2, chronic low insulin. Follow Accu-Cheks -Essential hypertension, continue hydralazine -Primary osteoarthritis, Tylenol when necessary -Diabetic peripheral neuropathy -Stage II pressure ulcer sacrum-local wound care-apply triad and waffle cushion for sitting -Acute on Chronic lower extremity wound medial to be followed by wound care team -Obstructive sleep apnea uses CPAP -Chronic umbilical hernia -Mild cognitive impairment -Chronic gait dysfunction sometimes uses a walker otherwise mainly a chair -Anemia of chronic kidney disease, follow CBC -Metabolic acidosis from renal failure, and sodium bicarbonate-slow to respond Continue IV ceftriaxone. Care was discussed with the patient. IV fluids discontinued by nephrology. Discussed with the at the bedside. Repeat labs
[2020-09-10] MEDS: IPRATROPIUM-ALBUTEROL 3 ML NEB INHALATION SCH ×7 (00:14→23:31)
[2020-09-10] MEDS: hydrALAZINE HCL 50 MG TAB PO SCH ×3 (05:09→20:25)
[2020-09-10] MEDS: PANTOPRAZOLE 40 MG TABLET PO SCH (05:09)
[2020-09-10 06:21] LABS: African American GFR (CKD) 24 (>60 ml/min/1.73 sqM); Anion Gap 13 mmol/L; Blood Urea Nitrogen 86 mg/dL (9-20); Calcium 8.9 mg/dL (8.4-10.2); Carbon Dioxide 14 mmol/L (22-30); Chloride 113 mmol/L (98-107); Glucose 128 mg/dL (74-99); Non-African American GFR(CKD) 21 (>60 ml/min/1.73 sqM); Potassium 3.6 mmol/L (3.5-5.1); Sodium 140 mmol/L (137-145)
[2020-09-10 06:44] LABS: Glucose,Whole Blood 143 mg/dL (75-99)
[2020-09-10] MEDS: INSULIN ASPART (NovoLOG) 100 UNIT/ML VIAL SQ SCH ×7 (07:44→20:24)
[2020-09-10] MEDS: SODIUM BICARBONATE TAB 650 MG TAB PO SCH ×3 (07:45→20:25)
[2020-09-10] MEDS: ENOXAPARIN 30 MG/0.3 ML SYRINGE SQ SCH (07:45)
[2020-09-10] MEDS: allopurinoL 100 MG TAB PO SCH (07:45)
[2020-09-10] MEDS: cloNIDine HCL 0.1 MG TAB PO SCH ×3 (07:45→16:38)
[2020-09-10] MEDS: amLODIPine 5 MG TAB PO SCH ×2 (07:45→16:40)
[2020-09-10] MEDS: FUROSEMIDE 40 MG TAB PO SCH (07:45)
[2020-09-10] MEDS: HYDROPHILIC CREAM 180 GM TUBE TOPICAL SCH (07:46)
[2020-09-10] MEDS: ERTAPENEM 0.5 GM in SODIUM CHLORIDE 0.9% 50 ML IVPB SCH (07:46)
[2020-09-10] MEDS: DEXTROSE 5% IN WATER 1,000 ML with SODIUM BICARB (1 MEQ/ML) 150 ML IV SCH (10:39)
[2020-09-10 11:22] LABS: Glucose,Whole Blood 222 mg/dL (75-99)
[2020-09-10] MEDS: NON FORMULARY DRUG (Fish Oil/Dha/Epa [Fish Oil 1,200 Mg Fish Oil] 1 EACH Capsule) PO SCH (15:31)
[2020-09-10 16:28] LABS: Glucose,Whole Blood 284 mg/dL (75-99)
[2020-09-10] MEDS: FERROUS SULFATE 325 MG TAB PO SCH (16:38)
[2020-09-10] MEDS: CHOLECALCIFEROL 25 MCG (1000 IU) TABLET PO SCH (16:39)
[2020-09-10] MEDS: ASPIRIN 81 MG PO SCH (16:40)
[2020-09-10] MEDS ORDERED: DARBEPOETIN ALFA 25 MCG/0.42 ML SYRINGE SQ SCH (17:00)
--- NOTE | 2020-09-10 17:52 | PN ---
PROGRESS NOTE Patient is seen for followup for chronic kidney disease. He states he has had increased bowel movements which have been loose. Urine output is maintained. Patient has been voiding. He does not have any significant hypotension. Serum creatinine has been at baseline. PHYSICAL EXAMINATION: On examination today, blood pressure was 158/56, heart rate of 85 per minute. Patient is afebrile. EXAMINATION OF THE HEART: S1 and S2. EXAMINATION OF LUNGS: Decreased breath sounds at bases. ABDOMEN: Soft, obese, non-tender. Umbilical hernia noted. Examination of lower extremities shows left leg is wrapped. No significant edema noted in right lower extremity. Chronic skin changes noted. TERMINOLOGIST exam is grossly intact. Patient does not move his legs much. LABS: Sodium 140, potassium 3.6, chloride 113. CO2 is 14, BUN 86, serum creatinine 2.9. ASSESSMENT: 1. Chronic kidney disease, NKF stage IV. Renal function at baseline. 2. Non-gap metabolic acidosis associated with renal failure as well as gastrointestinal fluid loss from diarrhea. I will add IV bicarb. 3. Left lower extremity cellulitis, maintained on antibiotics. 4. Hypertension. Occasional blood pressure is being high. 5. Gram-negative urinary tract infection, maintained on antibiotics. 6. Chronic kidney disease mineral bone disorder, maintained on calcitriol. PLAN: Add IV bicarb. Continue with current dose of diuretics. Repeat labs in a.m. Continue current antihypertensive regimen. MMODL / IJN: [id number] /
[2020-09-10] MEDS ORDERED: ONDANSETRON 4 MG/2 ML VIAL IVP PRN (18:27)
[2020-09-10] MEDS: ACETAMINOPHEN TAB 325 MG TAB PO PRN (19:08)
[2020-09-10 20:23] LABS: Glucose,Whole Blood 236 mg/dL (75-99)
[2020-09-10] MEDS: GABAPENTIN 300 MG CAP PO SCH (20:25)
[2020-09-10] MEDS: INSULIN DETEMIR (LEVEMIR) 100 UNIT/ML SYR SQ SCH (20:25)
[2020-09-10] MEDS: ATORVASTATIN 20 MG TAB PO SCH (20:25)
--- NOTE | 2020-09-10 21:21 | P.PN ---
Progress Note - Text Progress Note Date: 09/10/20 Chief Complaint: Tremors History of presenting complaint: Patient is a 69-year-old male with a past medical history of chronic venous stasis ulcers with recurrent cellulitis of the lower extremities, sleep apnea, hypertension, diabetes mellitus type 2 and chronic kidney disease stage IV, peptic ulcer disease. Currently at [facility]. EMS was called because patient was noted to have tremors. Patient is alert. Blood glucose was 259. It is now felt the patient had José Miguel's. Positive fever and had a fever in the ER. Patient not sure how the wound of the left lower extremities doing. He gets dressing changes every day. Denies any urinary symptoms. Denies any history symptoms. Had a fever 103.1 in the ER. Decreased appetite. Diet. Admitted with acute UTI with cystitis causing sepsis, acute metabolic encephalopathy. Today-overall feeling better. Some nausea this afternoon. Appetite and improved. No further fever. Urine culture growing E. coli/ESBL. Review of systems: Was done for constitutional, cardiovascular, GI, pulmonary. relevant finding as above Active Medications Acetaminophen (Acetaminophen Tab 325 Mg Tab) 650 mg PO Q6HR PRN PRN Reason: Mild Pain or Fever > 100.5 Last Admin: 09/10/20 19:08 Dose: 650 mg Documented by: Hydrocodone Bitart/Acetaminophen (Hydrocodone/Apap 10-325mg 1 Each Tab) 1 each PO TID PRN PRN Reason: Pain Albuterol/Ipratropium (Ipratropium-Albuterol 3 Ml Neb) 3 ml INHALATION RT-Q4H [facility] Last Admin: 09/10/20 20:14 Dose: 3 ml Documented by: Allopurinol (Allopurinol 100 Mg Tab) 100 mg PO DAILY@0800 [facility] Last Admin: 09/10/20 07:45 Dose: 100 mg Documented by: Amlodipine Besylate (Amlodipine 5 Mg Tab) 5 mg PO BID@0800,1700 [facility] Last Admin: 09/10/20 16:40 Dose: 5 mg Documented by: Aspirin (Aspirin 81 Mg) 81 mg PO DAILY@1700 [facility] Last Admin: 09/10/20 16:40 Dose: 81 mg Documented by: Atorvastatin Calcium (Atorvastatin 20 Mg Tab) 20 mg PO HS@2100 [facility] Last Admin: 09/10/20 20:25 Dose: 20 mg Documented by: Bisacodyl (Bisacodyl 10 Mg Supp) 10 mg RECTAL DAILY PRN PRN Reason: Constipation Calcitriol (Calcitriol 0.25 Mcg Cap) 0.25 mcg PO SUTUTHSA@1700 [facility] Last Admin: 09/10/20 16:38 Dose: 0.25 mcg Documented by: Calcitriol (Calcitriol 0.25 Mcg Cap) 0.5 mcg PO MOWEFR@1700 [facility] Last Admin: 09/09/20 17:04 Dose: 0.5 mcg Documented by: Cholecalciferol (Cholecalciferol 25 Mcg (1000 Iu) Tablet) 25 mcg PO DAILY@1700 [facility] Last Admin: 09/10/20 16:39 Dose: 25 mcg Documented by: Clonidine (Clonidine Hcl 0.1 Mg Tab) 0.1 mg PO TID@0800,1200,1700 [facility] Last Admin: 09/10/20 16:38 Dose: 0.1 mg Documented by: Darbepoetin Avelino (Darbepoetin Avelino 25 Mcg/0.42 Ml Syringe) 25 mcg SQ TU@1700 [facility] Last Admin: 09/10/20 16:46 Dose: 25 mcg Documented by: Enoxaparin Sodium (Enoxaparin 30 Mg/0.3 Ml Syringe) 30 mg SQ DAILY [facility] Last Admin: 09/10/20 07:45 Dose: 30 mg Documented by: Ferrous Sulfate (Ferrous Sulfate 325 Mg Tab) 325 mg PO DAILY@1700 [facility] Last Admin: 09/10/20 16:38 Dose: 325 mg Documented by: Furosemide (Furosemide 40 Mg Tab) 40 mg PO DAILY@0800 [facility] Last Admin: 09/10/20 07:45 Dose: 40 mg Documented by: Gabapentin (Gabapentin 300 Mg Cap) 300 mg PO HS [facility] Last Admin: 09/10/20 20:25 Dose: 300 mg Documented by: Hydralazine HCl (Hydralazine Hcl 50 Mg Tab) 100 mg PO TID@0600,1400,2100 [facility] Last Admin: 09/10/20 20:25 Dose: 100 mg Documented by: Ertapenem 0.5 gm/ Sodium (Chloride) 50 mls @ 100 mls/hr IVPB DAILY [facility]; Protocol Last Admin: 09/10/20 07:46 Dose: 100 mls/hr Documented by: Sodium Bicarbonate 150 ml/ (Dextrose/Water) 1,150 mls @ 50 mls/hr IV .Q23H [facility] Last Admin: 09/10/20 10:39 Dose: 50 mls/hr Documented by: Insulin Aspart (Insulin Aspart (Novolog) 100 Unit/Ml Vial) 4 unit SQ TID@0700,1100,1630 [facility] Last Admin: 09/10/20 16:40 Dose: 4 unit Documented by: Insulin Aspart (Insulin Aspart (Novolog) 100 Unit/Ml Vial) 0 unit SQ ACHS [facility]; Protocol Last Admin: 09/10/20 20:24 Dose: 5 unit Documented by: Insulin Detemir (Insulin Detemir (Levemir) 100 Unit/Ml Syr) 32 unit SQ HS@2100 [facility] Last Admin: 09/10/20 20:25 Dose: 32 unit Documented by: Loperamide HCl (Loperamide 2 Mg Cap) 2 mg PO DAILY PRN PRN Reason: Diarrhea Magnesium Hydroxide (Magnesium Hydroxide 2,400 Mg/10 Ml Cup) 7,200 mg PO DAILY PRN PRN Reason: Constipation Multi-Ingred Cream/Lotion/Oil/Oint (Hydrophilic Cream 180 Gm Tube) 1 applic TOPICAL BID PRN PRN Reason: redness/excoriation Multi-Ingred Cream/Lotion/Oil/Oint (Hydrophilic Cream 180 Gm Tube) 1 applic TOPICAL DAILY [facility] Last Admin: 09/10/20 07:46 Dose: 1 applic Documented by: Naloxone HCl (Naloxone 0.4 Mg/Ml 1 Ml Vial) 0.2 mg IV Q2M PRN PRN Reason: Opioid Reversal Non-Formulary Medication (Fish Oil/Dha/Epa [Fish Oil 1,200 Mg Fish Oil]) 1 cap PO DAILY@1700 [facility] Last Admin: 09/10/20 15:31 Dose: Not Given Documented by: Ondansetron HCl (Ondansetron 4 Mg/2 Ml Vial) 4 mg IVP Q6HR PRN PRN Reason: Nausea And Vomiting Pantoprazole Sodium (Pantoprazole 40 Mg Tablet) 40 mg PO DAILY@0600 [facility] Last Admin: 09/10/20 05:09 Dose: 40 mg Documented by: Sodium Bicarbonate (Sodium Bicarbonate Tab 650 Mg Tab) 650 mg PO TID [facility] Last Admin: 09/10/20 20:25 Dose: 650 mg Documented by: Sodium Biphosphate/Sodium Phosphate (Na Phos,M-B/Na Phos,Di-Ba 133 Ml Enema) 133 ml RECTAL DAILY PRN PRN Reason: Constipation Past medical history to include: chronic left lower extremity wound with cellulitis, hypertension with chronic kidney disease, morbid obesity, COPD, diabetes, hypertension, osteoarthritis, CKD stage III, diabetic peripheral neuropathy, obstructive sleep apnea uses CPAP, chronic recurrent umbilical hernia, mild cognitive impairment, baseline gait dysfunction-mainly uses a wheelchair. Social history: Nonsmoker. . Currently at [facility]. On examination: VITAL SIGNS: 99, 86, 18, 110/61, 95% on 2 L GENERAL APPEARANCE: Reclining in bed, awake HEENT: Normal external appearance of nose and ear. Oral cavity normal EYES: Pupils equal. Conjunctiva pale NECK: JVD not raised. Mass not palpable. RESPIRATORY: Respiratory effort normal. Lungs clear to auscultation. CARDIOVASCULAR: First and second sounds normal. No edema. ABDOMEN: Soft. Liver and spleen not palpable. No tenderness. No mass palpable. Umbilical hernia, reducible PSYCHIATRY: Answering questions DERMATOLOGICAL: Left lower extremity wound-rather dried-up INVESTIGATIONS, reviewed in the clinical context: September 10: Potassium 3.6 creatinine 2.91 bicarbonate 14 Urine culture-E. coli/ESBL September 09: WBC 21.5 hemoglobin 8.6 potassium 4.2 bicarbonate 15 BUN 92 creatinine 2.97 WBC 23.1 hemoglobin 7.6 platelets 262 potassium 3.9 x 12 15 creatinine 3.05 bun 97 Admission testing: UA positive for leukoesterase WBC bacteria Bun 100 creatinine 3.24 Assessment and plan: -Acute metabolic encephalopathy from underlying UTI. Improving -Sepsis from underlying UTI, IV fluids, IV ertapenem From E. coli/ESBL -Acute UTI from cystitis causing sepsis, IV ertapenem -chronic kidney disease stage 4 from diabetic kidney disease and nephrosclerosis, follow renal function -Chronic duodenal ulcer and antral gastritis , continue Protonix -Hypertension with chronic kidney disease, 40 vital signs -Morbid obesity BMI 43, follow diet -COPD," and as needed -Diabetes mellitus type 2, chronic low insulin. Follow Accu-Cheks -Essential hypertension, continue hydralazine -Primary osteoarthritis, Tylenol when necessary -Diabetic peripheral neuropathy -Stage II pressure ulcer sacrum-local wound care-apply triad and waffle cushion for sitting -Acute on Chronic lower extremity wound medial to be followed by wound care team -Obstructive sleep apnea uses CPAP -Chronic umbilical hernia -Mild cognitive impairment -Chronic gait dysfunction sometimes uses a walker otherwise mainly a chair -Anemia of chronic kidney disease, follow CBC -Metabolic acidosis from renal failure, and sodium bicarbonate-, on bicarbonate drip. Slow to respond. Admitted by dictated to IV ertapenem. Repeat labs. DC antibiotics per Dr. Vásquez
--- NOTE | 2020-09-10 22:58 | PN ---
PROGRESS NOTE DATE OF SERVICE: 09/10/2020 REASON FOR FOLLOWUP: ESBL E coli complicated urinary tract infection. INTERVAL HISTORY: Patient is currently afebrile. The patient is breathing comfortably. Patient denies having any chest pain. No shortness of breath or cough. No nausea, no vomiting. No abdominal pain or diarrhea. PHYSICAL EXAMINATION: Blood pressure 136/52 with a pulse of 86. Temperature of 100.2. He is 97% on 2 L nasal cannula. General description: The patient is an elderly male lying in bed in no distress. Respiratory system: Unlabored breathing, clear to auscultation anteriorly. Heart S1, S2. Regular rate and rhythm. Abdomen soft no tenderness. LABS: BUN of 87, creatinine is 2.9. Blood culture negative. DIAGNOSTIC IMPRESSION AND PLAN: Patient with complicated urinary tract infection. Urine has been ESBL E coli. Patient is covered with Invanz. He will get a midline to continue Invanz in outpatient setting and close outpatient followup. MMODL / IJN: [id number] / MTDD
[2020-09-11] MEDS: ACETAMINOPHEN TAB 325 MG TAB PO PRN (01:15)
[2020-09-11] MEDS: IPRATROPIUM-ALBUTEROL 3 ML NEB INHALATION SCH ×6 (03:14→23:32)
[2020-09-11] MEDS: hydrALAZINE HCL 50 MG TAB PO SCH ×3 (05:27→21:59)
[2020-09-11] MEDS: PANTOPRAZOLE 40 MG TABLET PO SCH (05:27)
[2020-09-11 07:04] LABS: Basophils % (A) 0 %; Eosinophils # (A) 0.2 k/uL (0-0.7); Eosinophils % (A) 3 %; HCT 22.2 % (39.0-53.0); Hypochromasia Slight; Lymphocytes % (A) 13 %; MCH 30.3 pg (25.0-35.0); MCHC 31.7 g/dL (31.0-37.0); MCV 95.7 fL (80.0-100.0); Mean Platelet Volume 7.8; Monocytes # (A) 0.7 k/uL (0-1.0); Monocytes % (A) 9 %; Neutrophils # (A) 6.2 k/uL (1.3-7.7); Neutrophils % (A) 74 %; Platelet Count 235 k/uL (150-450); RBC 2.32 m/uL (4.30-5.90); RDW 15.7 % (11.5-15.5); WBC 8.3 k/uL (3.8-10.6)
[2020-09-11 07:07] LABS: HGB 7.1 gm/dL (13.0-17.5)
[2020-09-11 07:17] LABS: African American GFR (CKD) 24 (>60 ml/min/1.73 sqM); Anion Gap 9 mmol/L; Blood Urea Nitrogen 83 mg/dL (9-20); Calcium 8.9 mg/dL (8.4-10.2); Carbon Dioxide 21 mmol/L (22-30); Chloride 110 mmol/L (98-107); Glucose 112 mg/dL (74-99); Non-African American GFR(CKD) 21 (>60 ml/min/1.73 sqM); Potassium 3.8 mmol/L (3.5-5.1); Sodium 140 mmol/L (137-145)
[2020-09-11] MEDS: INSULIN ASPART (NovoLOG) 100 UNIT/ML VIAL SQ SCH ×7 (07:28→21:59)
[2020-09-11 07:32] LABS: Glucose,Whole Blood 114 mg/dL (75-99)
[2020-09-11] MEDS: ENOXAPARIN 30 MG/0.3 ML SYRINGE SQ SCH (07:56)
[2020-09-11] MEDS: ERTAPENEM 0.5 GM in SODIUM CHLORIDE 0.9% 50 ML IVPB SCH (07:56)
[2020-09-11] MEDS: allopurinoL 100 MG TAB PO SCH (07:57)
[2020-09-11] MEDS: FUROSEMIDE 40 MG TAB PO SCH (07:57)
[2020-09-11] MEDS: cloNIDine HCL 0.1 MG TAB PO SCH ×3 (07:57→17:40)
[2020-09-11] MEDS: amLODIPine 5 MG TAB PO SCH ×2 (07:57→17:40)
[2020-09-11] MEDS: DEXTROSE 5% IN WATER 1,000 ML with SODIUM BICARB (1 MEQ/ML) 150 ML IV SCH (08:10)
[2020-09-11 11:37] LABS: Glucose,Whole Blood 149 mg/dL (75-99)
[2020-09-11] MEDS: SODIUM BICARBONATE TAB 650 MG TAB PO SCH ×3 (12:54→21:59)
[2020-09-11] MEDS: HYDROPHILIC CREAM 180 GM TUBE TOPICAL SCH (12:54)
--- NOTE | 2020-09-11 14:35 | PN ---
PROGRESS NOTE Patient is seen for followup for CKD. He is currently lying in bed, comfortable, not in any acute distress. PHYSICAL EXAMINATION: On examination today, blood pressure is 136/57, heart rate 67 per minute. He is afebrile. EXAMINATION OF THE HEART: S1, S2. EXAMINATION OF THE LUNGS: Bilateral breath sounds are heard. Abdomen is soft, nontender. Umbilical hernia present, which is nontender. Examination of lower extremities shows left leg is wrapped. No significant edema noted in the right lower extremity. LIVERY CAR [employer]IVER exam grossly intact. LABS: Labs show sodium 140, potassium 3.8, BUN 83, serum creatinine 2.96, hemoglobin 7.1 g/dL. ASSESSMENT: 1. Chronic kidney disease NKF stage IV renal function stable. 2. Metabolic acidosis associated with gastrointestinal fluid loss, status post bicarb drip. 3. Left lower extremity cellulitis and urine infection with urine culture growing Escherichia coli, maintained on antibiotics. 4. Urinary tract infection. 5. Generalized debility. PLAN: Continue with oral sodium bicarb. I will discontinue the IV bicarb. Followup as outpatient in 1-2 weeks. Continue antibiotics as per ID. MMODL / IJN: [id number] /
--- NOTE | 2020-09-11 15:26 | PN ---
PROGRESS NOTE DATE OF SERVICE: 09/11/2020 REASON FOR FOLLOWUP: ESBL E coli urinary tract infection. INTERVAL HISTORY: The patient is currently afebrile. The patient is breathing comfortably. Denies having any chest pain or shortness of breath. Occasional cough. No abdominal pain or diarrhea. PHYSICAL EXAMINATION: Blood pressure 194/64, pulse of 99, temperature 98.6. He is 91% on room air. General description is an elderly male lying in bed in no distress. RESPIRATORY SYSTEM: Unlabored breathing. Clear to auscultation anteriorly. HEART: S1, S2. Regular rate and rhythm. ABDOMEN: Soft. No tenderness. LABS: Hemoglobin is 7.9, white count 8.3, BUN of 83, creatinine is 2.96. DIAGNOSTIC IMPRESSION AND PLAN: Patient with extended-spectrum beta-lactamase Escherichia coli urinary tract infection, currently responding to Invanz. He will get a midline to continue with Invanz for another 9 days to finish a 2-week course of therapy. Continue with supportive care. MMODL / IJN: [id number] /
[2020-09-11 16:51] LABS: Glucose,Whole Blood 270 mg/dL (75-99)
[2020-09-11] MEDS: CHOLECALCIFEROL 25 MCG (1000 IU) TABLET PO SCH (17:40)
[2020-09-11] MEDS: ASPIRIN 81 MG PO SCH (17:40)
[2020-09-11] MEDS: NON FORMULARY DRUG (Fish Oil/Dha/Epa [Fish Oil 1,200 Mg Fish Oil] 1 EACH Capsule) PO SCH (17:45)
[2020-09-11] MEDS: FERROUS SULFATE 325 MG TAB PO SCH (17:48)
--- NOTE | 2020-09-11 20:28 | P.PN ---
Progress Note - Text Progress Note Date: 09/11/20 Chief Complaint: Tremors History of presenting complaint: Patient is a 69-year-old male with a past medical history of chronic venous stasis ulcers with recurrent cellulitis of the lower extremities, sleep apnea, hypertension, diabetes mellitus type 2 and chronic kidney disease stage IV, peptic ulcer disease. Currently at [facility]. EMS was called because patient was noted to have tremors. Patient is alert. Blood glucose was 259. It is now felt the patient had José Miguel's. Positive fever and had a fever in the ER. Patient not sure how the wound of the left lower extremities doing. He gets dressing changes every day. Denies any urinary symptoms. Denies any history symptoms. Had a fever 103.1 in the ER. Decreased appetite. Diet. Admitted with acute UTI with cystitis causing sepsis, acute metabolic encephalopathy.Urine culture growing E. coli/ESBL. Today-. Feels a bit tired today. Oral intake fair. No obvious fever. Getting and IV access for antibiotics upon discharge. Review of systems: Was done for constitutional, cardiovascular, GI, pulmonary. relevant finding as above Active Medications Acetaminophen (Acetaminophen Tab 325 Mg Tab) 650 mg PO Q6HR PRN PRN Reason: Mild Pain or Fever > 100.5 Last Admin: 09/11/20 01:15 Dose: 650 mg Documented by: Hydrocodone Bitart/Acetaminophen (Hydrocodone/Apap 10-325mg 1 Each Tab) 1 each PO TID PRN PRN Reason: Pain Albuterol/Ipratropium (Ipratropium-Albuterol 3 Ml Neb) 3 ml INHALATION RT-Q4H [facility] Last Admin: 09/11/20 20:24 Dose: 3 ml Documented by: Allopurinol (Allopurinol 100 Mg Tab) 100 mg PO DAILY@0800 [facility] Last Admin: 09/11/20 07:57 Dose: 100 mg Documented by: Amlodipine Besylate (Amlodipine 5 Mg Tab) 5 mg PO BID@0800,1700 [facility] Last Admin: 09/11/20 17:40 Dose: 5 mg Documented by: Aspirin (Aspirin 81 Mg) 81 mg PO DAILY@1700 [facility] Last Admin: 09/11/20 17:40 Dose: 81 mg Documented by: Atorvastatin Calcium (Atorvastatin 20 Mg Tab) 20 mg PO HS@2100 [facility] Last Admin: 09/10/20 20:25 Dose: 20 mg Documented by: Bisacodyl (Bisacodyl 10 Mg Supp) 10 mg RECTAL DAILY PRN PRN Reason: Constipation Calcitriol (Calcitriol 0.25 Mcg Cap) 0.25 mcg PO SUTUTHSA@1700 [facility] Last Admin: 09/10/20 16:38 Dose: 0.25 mcg Documented by: Calcitriol (Calcitriol 0.25 Mcg Cap) 0.5 mcg PO MOWEFR@1700 [facility] Last Admin: 09/11/20 17:42 Dose: 0.5 mcg Documented by: Cholecalciferol (Cholecalciferol 25 Mcg (1000 Iu) Tablet) 25 mcg PO DAILY@1700 [facility] Last Admin: 09/11/20 17:40 Dose: 25 mcg Documented by: Clonidine (Clonidine Hcl 0.1 Mg Tab) 0.1 mg PO TID@0800,1200,1700 [facility] Last Admin: 09/11/20 17:40 Dose: 0.1 mg Documented by: Darbepoetin Avelino (Darbepoetin Avelino 25 Mcg/0.42 Ml Syringe) 25 mcg SQ TU@1700 [facility] Last Admin: 09/10/20 16:46 Dose: 25 mcg Documented by: Enoxaparin Sodium (Enoxaparin 30 Mg/0.3 Ml Syringe) 30 mg SQ DAILY [facility] Last Admin: 09/11/20 07:56 Dose: 30 mg Documented by: Ferrous Sulfate (Ferrous Sulfate 325 Mg Tab) 325 mg PO DAILY@1700 [facility] Last Admin: 09/11/20 17:48 Dose: 325 mg Documented by: Furosemide (Furosemide 40 Mg Tab) 40 mg PO DAILY@0800 [facility] Last Admin: 09/11/20 07:57 Dose: 40 mg Documented by: Gabapentin (Gabapentin 300 Mg Cap) 300 mg PO HS [facility] Last Admin: 09/10/20 20:25 Dose: 300 mg Documented by: Hydralazine HCl (Hydralazine Hcl 50 Mg Tab) 100 mg PO TID@0600,1400,2100 [facility] Last Admin: 09/11/20 07:57 Dose: 100 mg Documented by: Ertapenem 0.5 gm/ Sodium (Chloride) 50 mls @ 100 mls/hr IVPB DAILY [facility]; Protocol Last Admin: 09/11/20 07:56 Dose: 100 mls/hr Documented by: Insulin Aspart (Insulin Aspart (Novolog) 100 Unit/Ml Vial) 4 unit SQ TID@0700,1100,1630 [facility] Last Admin: 09/11/20 17:43 Dose: 4 unit Documented by: Insulin Aspart (Insulin Aspart (Novolog) 100 Unit/Ml Vial) 0 unit SQ ACHS [facility]; Protocol Last Admin: 09/11/20 17:43 Dose: 9 unit Documented by: Insulin Detemir (Insulin Detemir (Levemir) 100 Unit/Ml Syr) 32 unit SQ HS@2100 [facility] Last Admin: 09/10/20 20:25 Dose: 32 unit Documented by: Loperamide HCl (Loperamide 2 Mg Cap) 2 mg PO DAILY PRN PRN Reason: Diarrhea Magnesium Hydroxide (Magnesium Hydroxide 2,400 Mg/10 Ml Cup) 7,200 mg PO DAILY PRN PRN Reason: Constipation Multi-Ingred Cream/Lotion/Oil/Oint (Hydrophilic Cream 180 Gm Tube) 1 applic TOPICAL BID PRN PRN Reason: redness/excoriation Multi-Ingred Cream/Lotion/Oil/Oint (Hydrophilic Cream 180 Gm Tube) 1 applic TOPICAL DAILY [facility] Last Admin: 09/11/20 12:54 Dose: 1 applic Documented by: Naloxone HCl (Naloxone 0.4 Mg/Ml 1 Ml Vial) 0.2 mg IV Q2M PRN PRN Reason: Opioid Reversal Non-Formulary Medication (Fish Oil/Dha/Epa [Fish Oil 1,200 Mg Fish Oil]) 1 cap PO DAILY@1700 [facility] Last Admin: 09/11/20 17:45 Dose: Not Given Documented by: Ondansetron HCl (Ondansetron 4 Mg/2 Ml Vial) 4 mg IVP Q6HR PRN PRN Reason: Nausea And Vomiting Pantoprazole Sodium (Pantoprazole 40 Mg Tablet) 40 mg PO DAILY@0600 [facility] Last Admin: 09/11/20 05:27 Dose: 40 mg Documented by: Sodium Bicarbonate (Sodium Bicarbonate Tab 650 Mg Tab) 650 mg PO TID [facility] Last Admin: 09/11/20 17:48 Dose: 650 mg Documented by: Sodium Biphosphate/Sodium Phosphate (Na Phos,M-B/Na Phos,Di-Ba 133 Ml Enema) 133 ml RECTAL DAILY PRN PRN Reason: Constipation Past medical history to include: chronic left lower extremity wound with cellulitis, hypertension with chronic kidney disease, morbid obesity, COPD, diabetes, hypertension, osteoarthritis, CKD stage III, diabetic peripheral neuropathy, obstructive sleep apnea uses CPAP, chronic recurrent umbilical hernia, mild cognitive impairment, baseline gait dysfunction-mainly uses a wheelchair. Social history: Nonsmoker. . Currently at [facility]. On examination: VITAL SIGNS: 98.4, 67, 17, 1 36 x 57, 97% on 2 L GENERAL APPEARANCE: Reclining in bed, awake HEENT: Normal external appearance of nose and ear. Oral cavity normal EYES: Pupils equal. Conjunctiva pale NECK: JVD not raised. Mass not palpable. RESPIRATORY: Respiratory effort normal. Lungs clear to auscultation. CARDIOVASCULAR: First and second sounds normal. No edema. ABDOMEN: Soft. Liver and spleen not palpable. No tenderness. No mass palpable. Umbilical hernia, reducible PSYCHIATRY: Answering questions DERMATOLOGICAL: Left lower extremity wound- dried-up INVESTIGATIONS, reviewed in the clinical context: September 11: WBC 8.3 hemoglobin 7.1 potassium 3.8 creatinine 2.96 September 10: Potassium 3.6 creatinine 2.91 bicarbonate 14 Urine culture-E. coli/ESBL September 09: WBC 21.5 hemoglobin 8.6 potassium 4.2 bicarbonate 15 BUN 92 creatinine 2.97 WBC 23.1 hemoglobin 7.6 platelets 262 potassium 3.9 x 12 15 creatinine 3.05 bun 97 Admission testing: UA positive for leukoesterase WBC bacteria Bun 100 creatinine 3.24 Assessment and plan: -Acute metabolic encephalopathy from underlying UTI. Improving -Sepsis from underlying UTI, IV fluids, IV ertapenem From E. coli/ESBL -Acute UTI from cystitis causing sepsis, IV ertapenem -chronic kidney disease stage 4 from diabetic kidney disease and nephrosclerosis, follow renal function -Chronic duodenal ulcer and antral gastritis , continue Protonix -Hypertension with chronic kidney disease, 40 vital signs -Morbid obesity BMI 43, follow diet -COPD," and as needed -Diabetes mellitus type 2, chronic low insulin. Follow Accu-Cheks -Essential hypertension, continue hydralazine -Primary osteoarthritis, Tylenol when necessary -Diabetic peripheral neuropathy -Stage II pressure ulcer sacrum-local wound care-apply triad and waffle cushion for sitting -Acute on Chronic lower extremity wound medial to be followed by wound care team -Obstructive sleep apnea uses CPAP -Chronic umbilical hernia -Mild cognitive impairment -Chronic gait dysfunction sometimes uses a walker otherwise mainly a chair -Anemia of chronic kidney disease, follow CBC -Metabolic acidosis from renal failure, and sodium bicarbonate-, on bicarbonate drip. Slow to respond. PICC line today. For total of 2 weeks of IV Invanz. Hopefully discharge tomorrow.
[2020-09-11 20:48] LABS: Glucose,Whole Blood 226 mg/dL (75-99)
[2020-09-11] MEDS: INSULIN DETEMIR (LEVEMIR) 100 UNIT/ML SYR SQ SCH (21:59)
[2020-09-11] MEDS: GABAPENTIN 300 MG CAP PO SCH (21:59)
[2020-09-11] MEDS: ATORVASTATIN 20 MG TAB PO SCH (21:59)
[2020-09-12] MEDS: IPRATROPIUM-ALBUTEROL 3 ML NEB INHALATION SCH ×5 (03:36→20:11)
[2020-09-12] MEDS: hydrALAZINE HCL 50 MG TAB PO SCH ×3 (05:23→21:06)
[2020-09-12] MEDS: PANTOPRAZOLE 40 MG TABLET PO SCH (05:23)
[2020-09-12 07:18] LABS: Glucose,Whole Blood 86 mg/dL (75-99)
[2020-09-12] MEDS: INSULIN ASPART (NovoLOG) 100 UNIT/ML VIAL SQ SCH ×7 (07:19→21:06)
[2020-09-12] MEDS: ENOXAPARIN 30 MG/0.3 ML SYRINGE SQ SCH (08:40)
[2020-09-12] MEDS: FUROSEMIDE 40 MG TAB PO SCH (08:40)
[2020-09-12] MEDS: amLODIPine 5 MG TAB PO SCH ×2 (08:40→14:53)
[2020-09-12] MEDS: allopurinoL 100 MG TAB PO SCH (08:40)
[2020-09-12] MEDS: SODIUM BICARBONATE TAB 650 MG TAB PO SCH ×3 (08:40→21:06)
[2020-09-12] MEDS: cloNIDine HCL 0.1 MG TAB PO SCH ×3 (08:40→14:54)
[2020-09-12] MEDS: HYDROPHILIC CREAM 180 GM TUBE TOPICAL SCH (08:41)
[2020-09-12] MEDS: ERTAPENEM 0.5 GM in SODIUM CHLORIDE 0.9% 50 ML IVPB SCH (08:41)
[2020-09-12 11:25] LABS: African American GFR (CKD) 24.5 (60.0-200.0); Albumin 3.4 g/dL (3.80-4.90); Albumin/Globulin Ratio 1.55 (1.60-3.17); Anion Gap 12.8 mmol/L (4.00-12.00); Calcium 8.7 mg/dL (8.7-10.3); Carbon Dioxide 19.2 mmol/L (21.6-31.8); Globulin 2.2 g/dL (1.6-3.3); Non-African American GFR(CKD) 21.1 (60.0-200.0); Potassium 3.7 mmol/L (3.5-5.5); Total Bilirubin 0.3 mg/dL (0.2-1.2); Total Protein 5.6 g/dL (6.2-8.2)
[2020-09-12 11:50] LABS: Glucose,Whole Blood 135 mg/dL (75-99)
[2020-09-12 12:37] LABS: Basophils # (A) 0.04 X 10*3/uL (0.00-0.10); Basophils % (A) 0.4 %; Eosinophils # (A) 0.32 X 10*3/uL (0.04-0.35); Eosinophils % (A) 3.5 %; HCT 21.5 % (39.6-50.0); HGB 6.8 g/dL (13.0-17.0); Lymphocytes # (A) 1.05 X 10*3/uL (0.90-5.00); Lymphocytes % (A) 11.6 %; MCH 30.5 pg (27.0-32.0); MCHC 31.6 g/dL (32.0-37.0); MCV 96.4 fL (80.0-97.0); Mean Platelet Volume 10.7 fL (9.5-12.2); Monocytes # (A) 1.12 X 10*3/uL (0.20-1.00); Monocytes % (A) 12.4 %; Neutrophils # (A) 6.41 X 10*3/uL (1.80-7.70); Neutrophils % (A) 71.2 %; Platelet Count 232 X 10*3/uL (140-440); RBC 2.23 X 10*6/uL (4.40-5.60); RDW 14.8 % (11.5-14.5); WBC 9.02 X 10*3/uL (4.50-10.00)
[2020-09-12] MEDS: CHOLECALCIFEROL 25 MCG (1000 IU) TABLET PO SCH (14:53)
[2020-09-12] MEDS: ASPIRIN 81 MG PO SCH (14:53)
[2020-09-12] MEDS: FERROUS SULFATE 325 MG TAB PO SCH (14:54)
[2020-09-12] MEDS: NON FORMULARY DRUG (Fish Oil/Dha/Epa [Fish Oil 1,200 Mg Fish Oil] 1 EACH Capsule) PO SCH (14:54)
--- NOTE | 2020-09-12 15:01 | P.DS ---
Providers Date of admission: 09/07/20 20:46 Expected date of discharge: 09/12/20 Attending physician: Jonh Butcher Consults: 09/07/20 20:45 Consult Physician Routine Consulting Provider: Cristian Watson Consult Reason/Comments: Sepsis Do you want consulting provider notified?: Yes 09/08/20 20:20 Consult Physician Routine Consulting Provider: Camille Cruz Consult Reason/Comments: Kidney failure Do you want consulting provider notified?: Yes Primary care physician: Papo Ford MD Hospital Course: Chief Complaint: Tremors History of presenting complaint: Patient is a 69-year-old male with a past medical history of chronic venous stasis ulcers with recurrent cellulitis of the lower extremities, sleep apnea, hypertension, diabetes mellitus type 2 and chronic kidney disease stage IV, peptic ulcer disease. Currently at [facility]. EMS was called because patient was noted to have tremors. Patient is alert. Blood glucose was 259. It is now felt the patient had José Miguel's. Positive fever and had a fever in the ER. Patient not sure how the wound of the left lower extremities doing. He gets dressing changes every day. Denies any urinary symptoms. Denies any history symptoms. Had a fever 103.1 in the ER. Decreased appetite. Diet. Admitted with acute UTI with cystitis causing sepsis, acute metabolic encephalopathy.Urine culture growing E. coli/ESBL. Treated with IV ertapenem. Patient's left leg wound has been healing well. Rather dried up Today-doing well. Eating well. Has a PICC line. We'll receive 9 more days of IV Invanz. Care was discussed with the patient. Questions answered. Cleared by ID. Today hemoglobin was 6.8. Gradual decline from suspected from renal function. He'll be getting a unit of blood today. Discussion and discharge planning more than 35 minutes Consultation: Dr. Watson from ID Dr. Cruz from infectious disease [place] from wound care Past medical history to include: chronic left lower extremity wound with cellulitis, hypertension with chronic kidney disease, morbid obesity, COPD, diabetes, hypertension, osteoarthritis, CKD stage III, diabetic peripheral neuropathy, obstructive sleep apnea uses CPAP, chronic recurrent umbilical hernia, mild cognitive impairment, baseline gait dysfunction-mainly uses a wheelchair. Social history: Nonsmoker. . Currently at [facility]. On examination: VITAL SIGNS: 98.9, 68, 21, 1 54 x 59, 94% on 2 L GENERAL APPEARANCE: Reclining in bed, awake HEENT: Normal external appearance of nose and ear. Oral cavity normal EYES: Pupils equal. Conjunctiva pale NECK: JVD not raised. Mass not palpable. RESPIRATORY: Respiratory effort normal. Lungs clear to auscultation. CARDIOVASCULAR: First and second sounds normal. No edema. ABDOMEN: Soft. Liver and spleen not palpable. No tenderness. No mass palpable. Umbilical hernia, reducible PSYCHIATRY: AO 3 DERMATOLOGICAL: Left lower extremity wound- dried-up INVESTIGATIONS, reviewed in the clinical context: September 12: Hemoglobin 6.8 potassium 3.7 bun 87 creatinine 2.9 September 11: WBC 8.3 hemoglobin 7.1 potassium 3.8 creatinine 2.96 September 10: Potassium 3.6 creatinine 2.91 bicarbonate 14 Urine culture-E. coli/ESBL September 09: WBC 21.5 hemoglobin 8.6 potassium 4.2 bicarbonate 15 BUN 92 creatinine 2.97 WBC 23.1 hemoglobin 7.6 platelets 262 potassium 3.9 x 12 15 creatinine 3.05 bun 97 Admission testing: UA positive for leukoesterase WBC bacteria Bun 100 creatinine 3.24 Assessment and plan: -Acute metabolic encephalopathy from underlying UTI. Improved -Sepsis from underlying UTI, IV fluids, IV ertapenem From E. coli/ESBL -Acute UTI from cystitis causing sepsis, IV ertapenem-49 more days -chronic kidney disease stage 4 from diabetic kidney disease and nephroscleros is, follow renal function -Chronic duodenal ulcer and antral gastritis , continue Protonix -Hypertension with chronic kidney disease, -Morbid obesity BMI 43, follow diet -COPD, in a nonsmoker." -Diabetes mellitus type 2, chronic on insulin. Follow Accu-Cheks -Essential hypertension, continue hydralazine -Primary osteoarthritis, Tylenol when necessary -Diabetic peripheral neuropathy -Stage II pressure ulcer sacrum-local wound care-apply triad and waffle cushion for sitting -Acute on Chronic lower extremity wound medial to be followed by wound care team-healing well dried-up -Obstructive sleep apnea uses CPAP -Chronic umbilical hernia -Mild cognitive impairment -Chronic gait dysfunction sometimes uses a walker otherwise mainly a chair -Anemia of chronic kidney disease, received 1 unit of blood -Metabolic acidosis from renal failure, received sodium bicarbonate Disposition: [facility] Plan - Discharge Summary New Discharge Prescriptions: New Ertapenem [INVanz] 0.5 gm IVPB Q24H #9 bag Ipratropium-Albuterol Nebulize [Duoneb 0.5 mg-3 mg/3 ml Soln] 3 ml INHALATION TID ml Sodium Bicarbonate Tab 650 mg PO TID tab Continue Cholecalciferol [Vitamin D3 (25 Mcg = 1000 Iu)] 25 mcg PO DAILY@1700 allopurinoL [Zyloprim] 100 mg PO DAILY@0800 Fish Oil/Dha/Epa [Fish Oil 1,200 mg Fish Oil] 1 cap PO DAILY@1700 Ferrous Sulfate [Iron (65 MG Elemental)] 325 mg PO DAILY@1700 amLODIPine [Norvasc] 5 mg PO BID@0800,1700 calcitrioL [Calcitriol] 0.25 mcg PO SUTUTHSA@1700 Atorvastatin [Lipitor] 20 mg PO HS@2100 Aspirin EC [Ecotrin Low Dose] 81 mg PO DAILY@1700 hydrALAZINE HCL [Apresoline] 100 mg PO TID@0600,1400,2100 Pantoprazole [Protonix] 40 mg PO DAILY@0600 Sodium Polystyrene Sulfonate 10 ml PO Q48H Magnesium Hydroxide [Milk of Magnesia Concentrate] 7,200 mg PO DAILY PRN PRN Reason: Constipation bisacodyL [Dulcolax] 10 mg RECTAL DAILY PRN PRN Reason: Constipation Na Phos,M-B/Na Phos,Di-Ba [Fleet Adult] 133 ml RECTAL DAILY PRN PRN Reason: Constipation Loperamide HCl [Imodium A-D] 2 mg PO DAILY PRN PRN Reason: Diarrhea INSULIN ASPART (NovoLOG) [NovoLOG (formulary)] 4 unit SQ TID@0700,1100,1630 cloNIDine HCL [Catapres] 0.1 mg PO TID@0800,1200,1700 Epoetin Avelino-Epbx [Retacrit] 10,000 scoop SQ TU@1700 Insulin Glargine,Hum.rec.anlog [Lantus Solostar] 32 unit SQ HS@2100 Furosemide [Lasix] 40 mg PO DAILY@0800 calcitrioL [Calcitriol] 0.5 mcg PO MOWEFR@1700 Hydrophilic Cream [Triad Cream] 1 applic TOPICAL BID PRN PRN Reason: redness/excoriation HYDROcodone/APAP 10-325MG [Karnack 10-325] 1 tab PO TID PRN #9 tab PRN Reason: Pain Changed Gabapentin [Neurontin] 300 mg PO BID@0800,1700 #6 cap Discharge Medication List Cholecalciferol [Vitamin D3 (25 Mcg = 1000 Iu)] 25 mcg PO DAILY@169904/22/15 [History] allopurinoL [Zyloprim] 100 mg PO DAILY@0804/22/15 [History] Fish Oil/Dha/Epa [Fish Oil 1,200 mg Fish Oil] 1 cap PO DAILY@169909/06/15 [History] Ferrous Sulfate [Iron (65 MG Elemental)] 325 mg PO DAILY@169910/23/15 [History] amLODIPine [Norvasc] 5 mg PO BID@0800,169908/27/17 [History] calcitrioL [Calcitriol] 0.25 mcg PO SUTUTHSA@169912/16/18 [History] Atorvastatin [Lipitor] 20 mg PO HS@209912/09/19 [History] Aspirin EC [Ecotrin Low Dose] 81 mg PO DAILY@169908/08/20 [History] Pantoprazole [Protonix] 40 mg PO DAILY@0608/08/20 [History] Sodium Polystyrene Sulfonate 10 ml PO Q48H 08/08/20 [History] hydrALAZINE HCL [Apresoline] 100 mg PO TID@0600,1400,209908/08/20 [History] Epoetin Avelino-Epbx [Retacrit] 10,000 scoop SQ TU@169909/07/20 [History] Furosemide [Lasix] 40 mg PO DAILY@0809/07/20 [History] Hydrophilic Cream [Triad Cream] 1 applic TOPICAL BID PRN 09/07/20 [History] INSULIN ASPART (NovoLOG) [NovoLOG (formulary)] 4 unit SQ TID@0700,1100,1630 09/07/20 [History] Insulin Glargine,Hum.rec.anlog [Lantus Solostar] 32 unit SQ HS@209909/07/20 [History] Loperamide HCl [Imodium A-D] 2 mg PO DAILY PRN 09/07/20 [History] Magnesium Hydroxide [Milk of Magnesia Concentrate] 7,200 mg PO DAILY PRN 09/07/20 [History] Na Phos,M-B/Na Phos,Di-Ba [Fleet Adult] 133 ml RECTAL DAILY PRN 09/07/20 [History] bisacodyL [Dulcolax] 10 mg RECTAL DAILY PRN 09/07/20 [History] calcitrioL [Calcitriol] 0.5 mcg PO MOWEFR@1700 09/07/20 [History] cloNIDine HCL [Catapres] 0.1 mg PO TID@0800,1200,1700 09/07/20 [History] Ertapenem [INVanz] 0.5 gm IVPB Q24H #9 bag 09/11/20 [Rx] Gabapentin [Neurontin] 300 mg PO BID@0800,1700 #6 cap 09/12/20 [Rx] HYDROcodone/APAP 10-325MG [Karnack 10-325] 1 tab PO TID PRN #9 tab 09/12/20 [Rx] Ipratropium-Albuterol Nebulize [Duoneb 0.5 mg-3 mg/3 ml Soln] 3 ml INHALATION TID ml 09/12/20 [Rx] Sodium Bicarbonate Tab 650 mg PO TID tab 09/12/20 [Rx] Follow up Appointment(s)/Referral(s): Papo Ford MD [Primary Care Provider] - 1-2 days Patient Instructions/Handouts: Sepsis (GEN)
--- NOTE | 2020-09-12 15:19 | PN ---
PROGRESS NOTE Patient is seen for followup for chronic kidney disease. He is being treated for underlying urinary tract infection and left leg cellulitis. The patient had a PICC line placed. PHYSICAL EXAMINATION: On examination today, blood pressure was elevated 176/64, previous blood pressure 154/59. Heart rate 89 per minute. He is afebrile. EXAMINATION OF THE HEART: S1, S2. EXAMINATION OF THE LUNGS: Bilateral breath sounds are heard. Abdomen is soft, morbidly obese. Examination of lower extremities shows no edema right leg. Left leg is currently wrapped. LABS: Labs show hemoglobin 6.8, sodium 141, potassium 3.7, BUN 87, serum creatinine 2.9. ASSESSMENT: 1. Chronic kidney disease NKF stage 4, renal function very stable. 2. Anemia, mostly anemia of chronic disease maintained on Aranesp. No active bleeding noted at this time. The patient may need to have a unit of packed RBCs prior to discharge. PLAN: Continue with Aranesp. Continue antibiotics. Consider 1 unit packed RBCs transfusion prior to discharge or it can be followed up as outpatient with transfusion if hemoglobin drops further. MMODL / IJN: [id number] /
--- NOTE | 2020-09-12 16:37 | PN ---
PROGRESS NOTE DATE OF SERVICE: 09/12/2020 REASON FOR FOLLOWUP: ESBL E coli urinary tract infection. INTERVAL HISTORY: The patient did have a low grade fever this afternoon of 100 degrees Fahrenheit. The patient has been afebrile. The patient denies having any chest pain, shortness of breath or cough. No nausea, no vomiting. No abdominal pain, no diarrhea. PHYSICAL EXAMINATION: Blood pressure 160/64 with a pulse of 84, temperature 98. He is 96% on 2 L nasal cannula. General description is an elderly male lying in bed in no distress. RESPIRATORY SYSTEM: Unlabored breathing, clear to auscultation anteriorly. HEART: S1, S2. Regular rate and rhythm. ABDOMEN: Soft, no tenderness. LABS: Hemoglobin 6.8, white count 9.02, BUN of 87, creatinine 2.9. DIAGNOSTIC IMPRESSION AND PLAN: 1. Patient with ESBL Escherichia coli urinary tract infection, currently on Invanz to continue to finish a 2 week course of therapy. 2. Patient did have a drop in his hemoglobin and may need further workup for the same. Will discuss with admitting physician. MMODL / IJN: [id number] /
[2020-09-12 16:44] LABS: Glucose,Whole Blood 245 mg/dL (75-99)
[2020-09-12 20:39] LABS: Glucose,Whole Blood 220 mg/dL (75-99)
[2020-09-12] MEDS: INSULIN DETEMIR (LEVEMIR) 100 UNIT/ML SYR SQ SCH (21:06)
[2020-09-12] MEDS: GABAPENTIN 300 MG CAP PO SCH (21:06)
[2020-09-12] MEDS: ATORVASTATIN 20 MG TAB PO SCH (21:06)
--- NOTE | 2020-09-12 21:14 | P.PN ---
Progress Note - Text Progress Note Date: 09/12/20 Chief Complaint: Tremors History of presenting complaint: Patient is a 69-year-old male with a past medical history of chronic venous stasis ulcers with recurrent cellulitis of the lower extremities, sleep apnea, hypertension, diabetes mellitus type 2 and chronic kidney disease stage IV, peptic ulcer disease. Currently at [facility]. EMS was called because patient was noted to have tremors. Patient is alert. Blood glucose was 259. It is now felt the patient had José Miguel's. Positive fever and had a fever in the ER. Patient not sure how the wound of the left lower extremities doing. He gets dressing changes every day. Denies any urinary symptoms. Denies any history symptoms. Had a fever 103.1 in the ER. Decreased appetite. Diet. Admitted with acute UTI with cystitis causing sepsis, acute metabolic encephalopathy.Urine culture growing E. coli/ESBL. Treated with IV ertapenem. Patient's left leg wound has been healing well. Rather dried up Today-doing well. Eating well. Has a PICC line. We'll receive 9 more days of IV Invanz. Care was discussed with the patient. Questions answered. Cleared by ID. Today hemoglobin was 6.8. Gradual decline from suspected from renal function. He'll be getting a unit of blood today. Review of systems: Was done for constitutional, cardiovascular, GI, pulmonary. relevant finding as above Active Medications Acetaminophen (Acetaminophen Tab 325 Mg Tab) 650 mg PO Q6HR PRN PRN Reason: Mild Pain or Fever > 100.5 Last Admin: 09/11/20 01:15 Dose: 650 mg Documented by: Hydrocodone Bitart/Acetaminophen (Hydrocodone/Apap 10-325mg 1 Each Tab) 1 each PO TID PRN PRN Reason: Pain Albuterol/Ipratropium (Ipratropium-Albuterol 3 Ml Neb) 3 ml INHALATION RT-Q4H [facility] [place] Last Admin: 09/12/20 20:11 Dose: 3 ml Documented by: Allopurinol (Allopurinol 100 Mg Tab) 100 mg PO DAILY@0800 [facility] [place] Last Admin: 09/12/20 08:40 Dose: 100 mg Documented by: Amlodipine Besylate (Amlodipine 5 Mg Tab) 5 mg PO BID@0800,1700 [facility] [place] Last Admin: 09/12/20 14:53 Dose: 5 mg Documented by: Aspirin (Aspirin 81 Mg) 81 mg PO DAILY@1700 [facility] [place] Last Admin: 09/12/20 14:53 Dose: 81 mg Documented by: Atorvastatin Calcium (Atorvastatin 20 Mg Tab) 20 mg PO HS@2100 [facility] [place] Last Admin: 09/11/20 21:59 Dose: 20 mg Documented by: Bisacodyl (Bisacodyl 10 Mg Supp) 10 mg RECTAL DAILY PRN PRN Reason: Constipation Calcitriol (Calcitriol 0.25 Mcg Cap) 0.25 mcg PO SUTUTHSA@170 [facility] [place] Last Admin: 09/12/20 14:53 Dose: 0.25 mcg Documented by: Calcitriol (Calcitriol 0.25 Mcg Cap) 0.5 mcg PO MOWEFR@170 [facility] [place] Last Admin: 09/11/20 17:42 Dose: 0.5 mcg Documented by: Cholecalciferol (Cholecalciferol 25 Mcg (1000 Iu) Tablet) 25 mcg PO DAILY@170 [facility] [place] Last Admin: 09/12/20 14:53 Dose: 25 mcg Documented by: Clonidine (Clonidine Hcl 0.1 Mg Tab) 0.1 mg PO TID@0800,1200,1700 [facility] [place] Last Admin: 09/12/20 14:54 Dose: 0.1 mg Documented by: Darbepoetin Avelino (Darbepoetin Avelino 25 Mcg/0.42 Ml Syringe) 25 mcg SQ TU@1699 [facility] [place] Last Admin: 09/10/20 16:46 Dose: 25 mcg Documented by: Enoxaparin Sodium (Enoxaparin 30 Mg/0.3 Ml Syringe) 30 mg SQ DAILY [facility] [place] Last Admin: 09/12/20 08:40 Dose: 30 mg Documented by: Ferrous Sulfate (Ferrous Sulfate 325 Mg Tab) 325 mg PO DAILY@1699 [facility] [place] Last Admin: 09/12/20 14:54 Dose: 325 mg Documented by: Furosemide (Furosemide 40 Mg Tab) 40 mg PO DAILY@0800 [facility] [place] Last Admin: 09/12/20 08:40 Dose: 40 mg Documented by: Gabapentin (Gabapentin 300 Mg Cap) [address] [facility] Last Admin: 09/11/20 21:59 Dose: 300 mg Documented by: Hydralazine HCl (Hydralazine Hcl 50 Mg Tab) 100 mg PO TID@0600,1400,2100 [facility] [place] Last Admin: 09/12/20 14:53 Dose: 100 mg Documented by: Ertapenem 0.5 gm/ Sodium (Chloride) 50 mls @ 100 mls/hr IVPB DAILY [facility] [place]; Protocol Last Admin: 09/12/20 08:41 Dose: 100 mls/hr Documented by: Insulin Aspart (Insulin Aspart (Novolog) 100 Unit/Ml Vial) 4 unit SQ TID@0700,1100,1630 [facility] [place] Last Admin: 09/12/20 17:11 Dose: 4 unit Documented by: Insulin Aspart (Insulin Aspart (Novolog) 100 Unit/Ml Vial) 0 unit SQ ACHS [facility] [place]; Protocol Last Admin: 09/12/20 17:11 Dose: 5 unit Documented by: Insulin Detemir (Insulin Detemir (Levemir) 100 Unit/Ml Syr) 32 unit SQ HS@2100 [facility] [place] Last Admin: 09/11/20 21:59 Dose: 32 unit Documented by: Loperamide HCl (Loperamide 2 Mg Cap) 2 mg PO DAILY PRN PRN Reason: Diarrhea Magnesium Hydroxide (Magnesium Hydroxide 2,400 Mg/10 Ml Cup) 7,200 mg PO DAILY PRN PRN Reason: Constipation Multi-Ingred Cream/Lotion/Oil/Oint (Hydrophilic Cream 180 Gm Tube) 1 applic TOPICAL BID PRN PRN Reason: redness/excoriation Multi-Ingred Cream/Lotion/Oil/Oint (Hydrophilic Cream 180 Gm Tube) 1 applic TOPICAL DAILY [facility] [place] Last Admin: 09/12/20 08:41 Dose: 1 applic Documented by: Naloxone HCl (Naloxone 0.4 Mg/Ml 1 Ml Vial) 0.2 mg IV Q2M PRN PRN Reason: Opioid Reversal Non-Formulary Medication (Fish Oil/Dha/Epa [Fish Oil 1,200 Mg Fish Oil]) 1 cap PO DAILY@1700 [facility] [place] Last Admin: 09/12/20 14:54 Dose: Not Given Documented by: Ondansetron HCl (Ondansetron 4 Mg/2 Ml Vial) 4 mg IVP Q6HR PRN PRN Reason: Nausea And Vomiting Pantoprazole Sodium (Pantoprazole 40 Mg Tablet) 40 mg PO DAILY@0600 [facility] [place] Last Admin: 09/12/20 05:23 Dose: 40 mg Documented by: Sodium Bicarbonate (Sodium Bicarbonate Tab 650 Mg Tab) 650 mg PO TID [facility] [place] Last Admin: 09/12/20 14:53 Dose: 650 mg Documented by: Sodium Biphosphate/Sodium Phosphate (Na Phos,M-B/Na Phos,Di-Ba 133 Ml Enema) 133 ml RECTAL DAILY PRN PRN Reason: Constipation Consultation: Dr. Watson from ID Dr. Cruz from infectious disease Denclau from wound care Past medical history to include: chronic left lower extremity wound with cellulitis, hypertension with chronic kidney disease, morbid obesity, COPD, diabetes, hypertension, osteoarthritis, CKD stage III, diabetic peripheral neuropathy, obstructive sleep apnea uses CPAP, chronic recurrent umbilical hernia, mild cognitive impairment, baseline gait dysfunction-mainly uses a wheelchair. Social history: Nonsmoker. . Currently at [facility]. On examination: VITAL SIGNS: 98.9, 68, 21, 1 54 x 59, 94% on 2 L GENERAL APPEARANCE: Reclining in bed, awake HEENT: Normal external appearance of nose and ear. Oral cavity normal EYES: Pupils equal. Conjunctiva pale NECK: JVD not raised. Mass not palpable. RESPIRATORY: Respiratory effort normal. Lungs clear to auscultation. CARDIOVASCULAR: First and second sounds normal. No edema. ABDOMEN: Soft. Liver and spleen not palpable. No tenderness. No mass palpable. Umbilical hernia, reducible PSYCHIATRY: AO 3 DERMATOLOGICAL: Left lower extremity wound- dried-up INVESTIGATIONS, reviewed in the clinical context: September 12: Hemoglobin 6.8 potassium 3.7 bun 87 creatinine 2.9 September 11: WBC 8.3 hemoglobin 7.1 potassium 3.8 creatinine 2.96 September 10: Potassium 3.6 creatinine 2.91 bicarbonate 14 Urine culture-E. coli/ESBL September 09: WBC 21.5 hemoglobin 8.6 potassium 4.2 bicarbonate 15 BUN 92 creatinine 2.97 WBC 23.1 hemoglobin 7.6 platelets 262 potassium 3.9 x 12 15 creatinine 3.05 bun 97 Admission testing: UA positive for leukoesterase WBC bacteria Bun 100 creatinine 3.24 Assessment and plan: -Acute metabolic encephalopathy from underlying UTI. Improved -Sepsis from underlying UTI, IV fluids, IV ertapenem From E. coli/ESBL -Acute UTI from cystitis causing sepsis, IV ertapenem-49 more days -chronic kidney disease stage 4 from diabetic kidney disease and nephrosclerosis, follow renal function -Chronic duodenal ulcer and antral gastritis , continue Protonix -Hypertension with chronic kidney disease, -Morbid obesity BMI 43, follow diet -COPD, in a nonsmoker." -Diabetes mellitus type 2, chronic on insulin. Follow Accu-Cheks -Essential hypertension, continue hydralazine -Primary osteoarthritis, Tylenol when necessary -Diabetic peripheral neuropathy -Stage II pressure ulcer sacrum-local wound care-apply triad and waffle cushion for sitting -Acute on Chronic lower extremity wound medial to be followed by wound care team-healing well dried-up -Obstructive sleep apnea uses CPAP -Chronic umbilical hernia -Mild cognitive impairment -Chronic gait dysfunction sometimes uses a walker otherwise mainly a chair -Anemia of chronic kidney disease, received 1 unit of blood, today -Metabolic acidosis from renal failure, received sodium bicarbonate Repeat CBC in the morning. Hopefully DC to the ECF tomorrow
[2020-09-13] MEDS: IPRATROPIUM-ALBUTEROL 3 ML NEB INHALATION SCH ×4 (00:15→11:26)
[2020-09-13 05:57] LABS: Basophils % (A) 0 %; Eosinophils # (A) 0.3 k/uL (0-0.7); Eosinophils % (A) 4 %; HCT 23.9 % (39.0-53.0); HGB 7.8 gm/dL (13.0-17.5); Lymphocytes # (A) 0.8 k/uL (1.0-4.8); Lymphocytes % (A) 9 %; MCH 30.2 pg (25.0-35.0); MCHC 32.5 g/dL (31.0-37.0); MCV 92.9 fL (80.0-100.0); Mean Platelet Volume 8.1; Monocytes # (A) 0.7 k/uL (0-1.0); Monocytes % (A) 8 %; Neutrophils # (A) 7.1 k/uL (1.3-7.7); Neutrophils % (A) 79 %; Platelet Count 219 k/uL (150-450); RBC 2.57 m/uL (4.30-5.90); RDW 15.3 % (11.5-15.5)
[2020-09-13 06:48] LABS: Glucose,Whole Blood 109 mg/dL (75-99)
[2020-09-13] MEDS: hydrALAZINE HCL 50 MG TAB PO SCH ×2 (08:56→14:34)
[2020-09-13] MEDS: PANTOPRAZOLE 40 MG TABLET PO SCH (08:56)
[2020-09-13] MEDS: INSULIN ASPART (NovoLOG) 100 UNIT/ML VIAL SQ SCH ×4 (08:56→12:42)
[2020-09-13] MEDS: cloNIDine HCL 0.1 MG TAB PO SCH ×2 (08:57→12:41)
[2020-09-13] MEDS: ENOXAPARIN 30 MG/0.3 ML SYRINGE SQ SCH (08:57)
[2020-09-13] MEDS: allopurinoL 100 MG TAB PO SCH (08:57)
[2020-09-13] MEDS: FUROSEMIDE 40 MG TAB PO SCH (08:57)
[2020-09-13] MEDS: amLODIPine 5 MG TAB PO SCH (08:57)
[2020-09-13] MEDS: ERTAPENEM 0.5 GM in SODIUM CHLORIDE 0.9% 50 ML IVPB SCH (08:57)
[2020-09-13] MEDS: SODIUM BICARBONATE TAB 650 MG TAB PO SCH (08:58)
[2020-09-13] MEDS: HYDROPHILIC CREAM 180 GM TUBE TOPICAL SCH (08:58)
[2020-09-13 11:51] LABS: Glucose,Whole Blood 153 mg/dL (75-99)
--- NOTE | 2020-09-13 14:07 | P.DS ---
Providers Date of admission: 09/07/20 20:46 Expected date of discharge: 09/13/20 Attending physician: Jonh Butcher Consults: 09/07/20 20:45 Consult Physician Routine Consulting Provider: Cristian Watson Consult Reason/Comments: Sepsis Do you want consulting provider notified?: Yes 09/08/20 20:20 Consult Physician Routine Consulting Provider: Camille Cruz Consult Reason/Comments: Kidney failure Do you want consulting provider notified?: Yes Primary care physician: Papo Ford MD Hospital Course: Chief Complaint: Tremors History of presenting complaint: Patient is a 69-year-old male with a past medical history of chronic venous stasis ulcers with recurrent cellulitis of the lower extremities, sleep apnea, hypertension, diabetes mellitus type 2 and chronic kidney disease stage IV, peptic ulcer disease. Currently at [facility]. EMS was called because patient was noted to have tremors. Patient is alert. Blood glucose was 259. It is now felt the patient had José Miguel's. Positive fever and had a fever in the ER. Patient not sure how the wound of the left lower extremities doing. He gets dressing changes every day. Denies any urinary symptoms. Denies any history symptoms. Had a fever 103.1 in the ER. Decreased appetite. Diet. Admitted with acute UTI with cystitis causing sepsis, acute metabolic encephalopathy.Urine culture growing E. coli/ESBL. Treated with IV ertapenem. Patient's left leg wound has been healing well. Rather dried up. Hemoglobin had dropped to 6.8. Given a unit of blood. Likely progression of chronic anemia. From renal disease Today-stable. Doing well. Oral intake is fair. at the bedside. 9 more days of IV ertapenem. Consultation: Dr. Watson from ID Dr. Cruz from infectious disease Den[place]au from wound care Past medical history to include: chronic left lower extremity wound with cellulitis, hypertension with chronic kidney disease, morbid obesity, COPD, diabetes, hypertension, osteoarthritis, CKD stage III, diabetic peripheral neuropathy, obstructive sleep apnea uses CPAP, chronic recurrent umbilical hernia, mild cognitive impairment, baseline gait dysfunction-mainly uses a wheelchair. Social history: Nonsmoker. . Currently at [facility]. On examination: VITAL SIGNS: 98, 78, 20, 19 June 58, 91% on 2 L GENERAL APPEARANCE: Reclining in bed, awake HEENT: Normal external appearance of nose and ear. Oral cavity normal EYES: Pupils equal. Conjunctiva pale NECK: JVD not raised. Mass not palpable. RESPIRATORY: Respiratory effort normal. Lungs clear to auscultation. CARDIOVASCULAR: First and second sounds normal. No edema. ABDOMEN: Soft. Liver and spleen not palpable. No tenderness. No mass palpable. Umbilical hernia, reducible PSYCHIATRY: AO 3 DERMATOLOGICAL: Left lower extremity wound- dried-up INVESTIGATIONS, reviewed in the clinical context: September 13: Hemoglobin 7.8 September 12: Hemoglobin 6.8 potassium 3.7 bun 87 creatinine 2.9 September 11: WBC 8.3 hemoglobin 7.1 potassium 3.8 creatinine 2.96 September 10: Potassium 3.6 creatinine 2.91 bicarbonate 14 Urine culture-E. coli/ESBL September 09: WBC 21.5 hemoglobin 8.6 potassium 4.2 bicarbonate 15 BUN 92 creatinine 2.97 WBC 23.1 hemoglobin 7.6 platelets 262 potassium 3.9 x 12 15 creatinine 3.05 bun 97 Admission testing: UA positive for leukoesterase WBC bacteria Bun 100 creatinine 3.24 Assessment and plan: -Acute metabolic encephalopathy from underlying UTI. Improved -Sepsis from underlying UTI, IV fluids, IV ertapenem From E. coli/ESBL -Acute UTI from cystitis causing sepsis, IV ertapenem-49 more days -chronic kidney disease stage 4 from diabetic kidney disease and nephrosclerosis, follow renal function -Chronic duodenal ulcer and antral gastritis , continue Protonix -Hypertension with chronic kidney disease, -Morbid obesity BMI 43, follow diet -COPD, in a nonsmoker." -Diabetes mellitus type 2, chronic on insulin. Follow Accu-Cheks -Essential hypertension, continue hydralazine -Primary osteoarthritis, Tylenol when necessary -Diabetic peripheral neuropathy -Stage II pressure ulcer sacrum-local wound care-apply triad and waffle cushion for sitting -Acute on Chronic lower extremity wound medial to be followed by wound care team-healing well dried-up -Obstructive sleep apnea uses CPAP -Chronic umbilical hernia -Mild cognitive impairment -Chronic gait dysfunction sometimes uses a walker otherwise mainly a chair -Anemia of chronic kidney disease, received 1 unit of blood, today -Metabolic acidosis from renal failure, received sodium bicarbonate Disposition: F/Linda Plan - Discharge Summary Discharge Rx Participant: No New Discharge Prescriptions: New Ertapenem [INVanz] 0.5 gm IVPB Q24H #9 bag Ipratropium-Albuterol Nebulize [Duoneb 0.5 mg-3 mg/3 ml Soln] 3 ml INHALATION TID ml Sodium Bicarbonate Tab 650 mg PO TID tab Continue Cholecalciferol [Vitamin D3 (25 Mcg = 1000 Iu)] 25 mcg PO DAILY@1700 allopurinoL [Zyloprim] 100 mg PO DAILY@0800 Fish Oil/Dha/Epa [Fish Oil 1,200 mg Fish Oil] 1 cap PO DAILY@1700 Ferrous Sulfate [Iron (65 MG Elemental)] 325 mg PO DAILY@1700 amLODIPine [Norvasc] 5 mg PO BID@0800,1700 calcitrioL [Calcitriol] 0.25 mcg PO SUTUTHSA@1700 Atorvastatin [Lipitor] 20 mg PO HS@2100 Aspirin EC [Ecotrin Low Dose] 81 mg PO DAILY@1700 hydrALAZINE HCL [Apresoline] 100 mg PO TID@0600,1400,2100 Pantoprazole [Protonix] 40 mg PO DAILY@0600 Sodium Polystyrene Sulfonate 10 ml PO Q48H Magnesium Hydroxide [Milk of Magnesia Concentrate] 7,200 mg PO DAILY PRN PRN Reason: Constipation bisacodyL [Dulcolax] 10 mg RECTAL DAILY PRN PRN Reason: Constipation Na Phos,M-B/Na Phos,Di-Ba [Fleet Adult] 133 ml RECTAL DAILY PRN PRN Reason: Constipation Loperamide HCl [Imodium A-D] 2 mg PO DAILY PRN PRN Reason: Diarrhea INSULIN ASPART (NovoLOG) [NovoLOG (formulary)] 4 unit SQ TID@0700,1100,1630 cloNIDine HCL [Catapres] 0.1 mg PO TID@0800,1200,1700 Epoetin Avelino-Epbx [Retacrit] 10,000 scoop SQ TU@1700 Insulin Glargine,Hum.rec.anlog [Lantus Solostar] 32 unit SQ HS@2100 Furosemide [Lasix] 40 mg PO DAILY@0800 calcitrioL [Calcitriol] 0.5 mcg PO MOWEFR@1700 Hydrophilic Cream [Triad Cream] 1 applic TOPICAL BID PRN PRN Reason: redness/excoriation HYDROcodone/APAP 10-325MG [Reubens 10-325] 1 tab PO TID PRN #9 tab PRN Reason: Pain Changed Gabapentin [Neurontin] 300 mg PO BID@0800,1700 #6 cap Discharge Medication List Cholecalciferol [Vitamin D3 (25 Mcg = 1000 Iu)] 25 mcg PO DAILY@169904/22/15 [History] allopurinoL [Zyloprim] 100 mg PO DAILY@0800 04/22/15 [History] Fish Oil/Dha/Epa [Fish Oil 1,200 mg Fish Oil] 1 cap PO DAILY@169909/06/15 [History] Ferrous Sulfate [Iron (65 MG Elemental)] 325 mg PO DAILY@169910/23/15 [History] amLODIPine [Norvasc] 5 mg PO BID@0800,169908/27/17 [History] calcitrioL [Calcitriol] 0.25 mcg PO SUTUTHSA@169912/16/18 [History] Atorvastatin [Lipitor] 20 mg PO HS@209912/09/19 [History] Aspirin EC [Ecotrin Low Dose] 81 mg PO DAILY@169908/08/20 [History] Pantoprazole [Protonix] 40 mg PO DAILY@59908/08/20 [History] Sodium Polystyrene Sulfonate 10 ml PO Q48H 08/08/20 [History] hydrALAZINE HCL [Apresoline] 100 mg PO TID@0600,1400,209908/08/20 [History] Epoetin Avelino-Epbx [Retacrit] 10,000 scoop SQ TU@169909/07/20 [History] Furosemide [Lasix] 40 mg PO DAILY@0809/07/20 [History] Hydrophilic Cream [Triad Cream] 1 applic TOPICAL BID PRN 09/07/20 [History] INSULIN ASPART (NovoLOG) [NovoLOG (formulary)] 4 unit SQ TID@0700,1100,1630 09/07/20 [History] Insulin Glargine,Hum.rec.anlog [Lantus Solostar] 32 unit SQ HS@209909/07/20 [History] Loperamide HCl [Imodium A-D] 2 mg PO DAILY PRN 09/07/20 [History] Magnesium Hydroxide [Milk of Magnesia Concentrate] 7,200 mg PO DAILY PRN 09/07/20 [History] Na Phos,M-B/Na Phos,Di-Ba [Fleet Adult] 133 ml RECTAL DAILY PRN 09/07/20 [History] bisacodyL [Dulcolax] 10 mg RECTAL DAILY PRN 09/07/20 [History] calcitrioL [Calcitriol] 0.5 mcg PO MOWEFR@1700 09/07/20 [History] cloNIDine HCL [Catapres] 0.1 mg PO TID@0800,1200,1700 09/07/20 [History] Ertapenem [INVanz] 0.5 gm IVPB Q24H #9 bag 09/11/20 [Rx] Gabapentin [Neurontin] 300 mg PO BID@0800,1700 #6 cap 09/12/20 [Rx] HYDROcodone/APAP 10-325MG [Reubens 10-325] 1 tab PO TID PRN #9 tab 09/12/20 [Rx] Ipratropium-Albuterol Nebulize [Duoneb 0.5 mg-3 mg/3 ml Soln] 3 ml INHALATION TID ml 09/12/20 [Rx] Sodium Bicarbonate Tab 650 mg PO TID tab 09/12/20 [Rx] Follow up Appointment(s)/Referral(s): Papo Ford MD [Primary Care Provider] - 1-2 days Patient Instructions/Handouts: Sepsis (GEN) Activity/Diet/Wound Care/Special Instructions: CBC, BMP-3 days
--- NOTE | 2020-09-13 14:22 | PN ---
PROGRESS NOTE DATE OF SERVICE: 09/13/2020 REASON FOR FOLLOWUP: ESBL E coli urinary tract infection. INTERVAL HISTORY: The patient is currently afebrile. The patient is feeling better. Breathing comfortably. Denies having any chest pain. Occasional cough. No abdominal pain. No diarrhea. PHYSICAL EXAMINATION: Blood pressure is a 167/58 with a pulse of 78, temperature 98. He is 91% on 2 L nasal cannula. General description is an elderly male lying in bed in no distress. RESPIRATORY SYSTEM: Unlabored breathing, clear to auscultation anteriorly. HEART: S1, S2. Regular rate and rhythm. ABDOMEN: Soft, no tenderness. LABS: Hemoglobin is 7.8, white count 9.0. DIAGNOSTIC IMPRESSION AND PLAN: Patient with ESBL Escherichia coli urinary tract infection, repeat culture negative. Blood culture negative. He will continue with IV Invanz 500 mg daily for another week to finish his course of therapy and close outpatient followup. Family at the bedside, questions were answered. MMODL / IJN: [id number] /
[2020-09-13 14:39] VITALS: BP 169/65; PULSE 78; RESP 21; TEMP 98.4
--- NOTE | 2020-09-13 16:36 | PN ---
PROGRESS NOTE Patient is seen for followup for chronic kidney disease. He is currently stable. No significant complaints. PHYSICAL EXAMINATION: On examination today, blood pressure was 167/58, heart rate of 76 per minute. He is afebrile. EXAMINATION OF THE HEART: S1, S2. EXAMINATION OF THE LUNGS: Bilateral breath sounds are heard. ABDOMEN: Soft, nontender, morbidly obese. Umbilical hernia noted. Examination of lower extremities 1+ edema right lower extremity. Left leg is currently wrapped. [employer] exam grossly intact. LAB: Labs show hemoglobin 7.8 today from 6.8 yesterday. ASSESSMENT: 1. Chronic kidney disease, stage 4 currently stable. 2. Urinary tract infection with urine culture growing Escherichia coli. 3. Left lower extremity cellulitis. PLAN: Patient can be discharged from Nephrology standpoint. Follow up as outpatient in about 1-2 weeks. MMODL / IJN: [id number] /
== END 2020-09-13 17:00 | DRG 871 ==
LOC: EC 18:17 → 4SSUR 20:46
PROVIDERS: ADMIT Hospitalist; ATTEND Hospitalist
PROC: 05HF33Z Insertion of Infusion Device into Left Cephalic Vein, Percutaneous Approach (ICD-10-PCS; principal; 2020-09-11 07:30)
PROC: 30233N1 Transfusion of Nonautologous Red Blood Cells into Peripheral Vein, Percutaneous Approach (ICD-10-PCS; 2020-09-12)
DX: A41.51 Sepsis due to Escherichia coli [E. coli] (principal); G93.41 Metabolic encephalopathy; N17.9 Acute kidney failure, unspecified; E87.2 Acidosis; I13.0 Hypertensive heart and chronic kidney disease with heart failure and stage 1 through stage 4 chronic kidney disease, or unspecified chronic kidney disease; L97.919 Non-pressure chronic ulcer of unspecified part of right lower leg with unspecified severity; L97.929 Non-pressure chronic ulcer of unspecified part of left lower leg with unspecified severity; L03.115 Cellulitis of right lower limb; L03.116 Cellulitis of left lower limb; Z68.41 Body mass index [BMI] 40.0-44.9, adult; N18.4 Chronic kidney disease, stage 4 (severe); Z16.12 Extended spectrum beta lactamase (ESBL) resistance; L89.152 Pressure ulcer of sacral region, stage 2; D63.1 Anemia in chronic kidney disease; L89.892 Pressure ulcer of other site, stage 2; E83.9 Disorder of mineral metabolism, unspecified; E11.42 Type 2 diabetes mellitus with diabetic polyneuropathy; F03.90 Unspecified dementia, unspecified severity, without behavioral disturbance, psychotic disturbance, mood disturbance, and anxiety; E11.22 Type 2 diabetes mellitus with diabetic chronic kidney disease; E11.622 Type 2 diabetes mellitus with other skin ulcer; I50.9 Heart failure, unspecified; E66.01 Morbid (severe) obesity due to excess calories; J44.9 Chronic obstructive pulmonary disease, unspecified; Z79.4 Long term (current) use of insulin; Z20.822 Contact with and (suspected) exposure to COVID-19; E78.5 Hyperlipidemia, unspecified; G47.33 Obstructive sleep apnea (adult) (pediatric); K42.9 Umbilical hernia without obstruction or gangrene; N30.90 Cystitis, unspecified without hematuria; R26.9 Unspecified abnormalities of gait and mobility; M19.91 Primary osteoarthritis, unspecified site; K26.7 Chronic duodenal ulcer without hemorrhage or perforation; K29.50 Unspecified chronic gastritis without bleeding; I83.93 Asymptomatic varicose veins of bilateral lower extremities; E86.9 Volume depletion, unspecified; R19.7 Diarrhea, unspecified; R53.81 Other malaise; Z71.3 Dietary counseling and surveillance; Z79.899 Other long term (current) drug therapy; Z79.82 Long term (current) use of aspirin; Z87.01 Personal history of pneumonia (recurrent); Z87.440 Personal history of urinary (tract) infections; Z90.49 Acquired absence of other specified parts of digestive tract; Z95.5 Presence of coronary angioplasty implant and graft; Z98.42 Cataract extraction status, left eye; Z98.41 Cataract extraction status, right eye; Z88.6 Allergy status to analgesic agent; Z88.2 Allergy status to sulfonamides; Z82.5 Family history of asthma and other chronic lower respiratory diseases; Z83.3 Family history of diabetes mellitus; Z83.2 Family history of diseases of the blood and blood-forming organs and certain disorders involving the immune mechanism; Z82.49 Family history of ischemic heart disease and other diseases of the circulatory system
CPT/HCPCS: 36410; 36415; 71045; 71046; 76770; 76937; 80048; 80053; 81001; 82803; 83605; 83735; 84484; 85025; 85610; 85730; 86850; 86900; 86901; 86920; 87040; 87045; 87046; 87077; 87086; 87186; 87328; 87329; 87635; 93005; 94640; 94760; 96361; 96365; 96366; 96375; 99285

== ENCOUNTER 2020-11-06 19:02 | Inpatient (IN) | payer MEDICARE, BC ==
[2020-11-06] MEDS ORDERED: HYDROmorphone 1 MG/ML 1 ML SYRINGE IVP STA (19:09)
--- NOTE | 2020-11-06 19:18 | ED ---
Chest Pain HPI - General Chief Complaint: Chest Pain Stated Complaint: Chest Pain Time Seen by Provider: 11/06/20 19:02 Source: patient, EMS, RN notes reviewed, old records reviewed Mode of arrival: EMS Limitations: physical limitation - History of Present Illness Initial Comments: This is a 70-year-old male with extensive medical history who presents with complaints as chest pain just after lunch today is been intermittent since then and is retrosternal and radiates to his back 8/10 severity at its worse does somewhat get worse with certain movements. He was given aspirin and nitroglycerin by paramedics at did help her pain somewhat.She's had somewhat of a cough and did have a low-grade fever today. No other complaints. The patient did have his first Covid shot the next one scheduled on the of this month MD Complaint: chest pain - Related Data Home Medications Medication Instructions Recorded Confirmed Cholecalciferol [Vitamin D3 (25 25 mcg PO DAILY@1700 04/22/15 09/07/20 Mcg = 1000 Iu)] allopurinoL [Zyloprim] 100 mg PO DAILY@0800 04/22/15 09/07/20 Fish Oil/Dha/Epa [Fish Oil 1,200 1 cap PO DAILY@1700 09/06/15 09/07/20 mg Fish Oil] Ferrous Sulfate [Iron (65 MG 325 mg PO DAILY@169910/23/15 09/07/20 Elemental)] amLODIPine [Norvasc] 5 mg PO BID@0800,1700 08/27/17 09/07/20 calcitrioL [Calcitriol] 0.25 mcg PO SUTUTHSA@1700 12/16/18 09/07/20 Atorvastatin [Lipitor] 20 mg PO HS@209912/09/19 09/07/20 Aspirin EC [Ecotrin Low Dose] 81 mg PO DAILY@1700 08/08/20 09/07/20 Pantoprazole [Protonix] 40 mg PO DAILY@0600 08/08/20 09/07/20 Sodium Polystyrene Sulfonate 10 ml PO Q48H 08/08/20 09/07/20 hydrALAZINE HCL [Apresoline] 100 mg PO TID@0600,1400,2100 08/08/20 09/07/20 Epoetin Avelino-Epbx [Retacrit] 10,000 scoop SQ TU@1700 09/07/20 09/07/20 Furosemide [Lasix] 40 mg PO DAILY@0800 09/07/20 09/07/20 Hydrophilic Cream [Triad Cream] 1 applic TOPICAL BID PRN 09/07/20 09/07/20 INSULIN ASPART (NovoLOG) [NovoLOG 4 unit SQ TID@0700,1100,1630 09/07/20 09/07/20 (formulary)] Insulin Glargine,Hum.rec.anlog 32 unit SQ HS@2100 09/07/20 09/07/20 [Lantus Solostar] Loperamide HCl [Imodium A-D] 2 mg PO DAILY PRN 09/07/20 09/07/20 Magnesium Hydroxide [Milk of 7,200 mg PO DAILY PRN 09/07/20 09/07/20 Magnesia Concentrate] Na Phos,M-B/Na Phos,Di-Ba [Fleet 133 ml RECTAL DAILY PRN 09/07/20 09/07/20 Adult] bisacodyL [Dulcolax] 10 mg RECTAL DAILY PRN 09/07/20 09/07/20 calcitrioL [Calcitriol] 0.5 mcg PO MOWEFR@1700 09/07/20 09/07/20 cloNIDine HCL [Catapres] 0.1 mg PO TID@0800,1200,1700 09/07/20 09/07/20 Previous Rx's Medication Instructions Recorded Ertapenem [INVanz] 0.5 gm IVPB Q24H #9 bag 09/11/20 Gabapentin [Neurontin] 300 mg PO BID@0800,1700 #6 cap 09/12/20 HYDROcodone/APAP 10-325MG [[place] 1 tab PO TID PRN #9 tab 09/12/20 10-325] Ipratropium-Albuterol Nebulize 3 ml INHALATION TID ml 09/12/20 [Duoneb 0.5 mg-3 mg/3 ml Soln] Sodium Bicarbonate Tab 650 mg PO TID tab 09/12/20 Allergies Allergy/AdvReac Type Severity Reaction Status Date / Time aspirin [From Anacin] Allergy Rash/Hives Verified 11/06/20 19:09 (Dulce brand ok) sulfamethoxazole AdvReac affects Verified 11/06/20 19:09 [From Bactrim] kidneys trimethoprim [From Bactrim] AdvReac Unknown Verified 11/06/20 19:09 Review of Systems ROS Statement: Those systems with pertinent positive or pertinent negative responses have been documented in the HPI. ROS Other: All systems not noted in ROS Statement are negative. EKG Findings - EKG Results: EKG: interpreted by ARISTEO, sinus rhythm (Sinus tachycardia rate 103. We'll 192 QRS 100 QT since QTC 348/[address]-T wave changes this is compared to an E KG dated 09/07/20) Past Medical History Past Medical History: Heart Failure, COPD, Diabetes Mellitus, Hyperlipidemia, Hypertension, Osteoarthritis (OA), Pneumonia, Renal Disease, Sleep Apnea/CPAP/BIPAP, Vascular Disorder Additional Past Medical History / Comment(s): IDDM type II, 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, chronic venous ulcer left anterior lower leg-treated in [facility], sepsis from L leg wound, chronic anemia, hyperkalemia, CKD-spouse states his kidneys function at 28%, DELVIN with Cpap, poss ible starting of dementia, confusion at times at night, bilateral lower leg varicosities, umbilical hernia, Hpylori, ambulates very little with walker and mostly wheelchair bound, recent UTI History of Any Multi-Drug Resistant Organisms: ESBL, VRE Date of last positivie culture/infection: 11/28/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 Past Anesthesia/Blood Transfusion Reactions: No Reported Reaction Date of Last Stent Placement:: 10/2015 Past Psychological History: No Psychological Hx Reported Smoking Status: Never smoker Past Alcohol Use History: None Reported Past Drug Use History: None Reported - Past Family History Father Family Medical History: COPD Additional Family Medical History / Comment(s): AT AGE 64- EMPHYSEMA(SMOKER) Mother Family Medical History: Diabetes Mellitus, Hypertension Additional Family Medical History / Comment(s): LUPUS, LEG AMPUTATED. MOM IN HER 60'S General Exam - General Exam Comments Initial Comments: This is a well-developed well-nourished awake alert oriented times female Limitations: physical limitation General appearance: alert, in no apparent distress Head exam: Present: atraumatic, normocephalic, normal inspection Eye exam: Present: normal appearance, PERRL, EOMI. Absent: scleral icterus, conjunctival injection, periorbital swelling ENT exam: Present: mucous membranes dry Neck exam: Present: normal inspection. Absent: tenderness, meningismus, lymphadenopathy Respiratory exam: Present: normal lung sounds bilaterally. Absent: respiratory distress, wheezes, rales, rhonchi, stridor Cardiovascular Exam: Present: regular rate, normal rhythm, normal heart sounds. Absent: systolic murmur, diastolic murmur, rubs, gallop, clicks GI/Abdominal exam: Present: soft, normal bowel sounds, other (Umbilical hernia noted chronic). Absent: distended, tenderness, guarding, rebound, rigid Extremities exam: Present: normal inspection, full ROM, normal capillary refill. Absent: tenderness, pedal edema, joint swelling, calf tenderness Back exam: Present: normal inspection Neurological exam: Present: alert, oriented X3, CN II-XII intact Psychiatric exam: Present: normal affect, normal mood Skin exam: Present: warm, dry, intact, normal color. Absent: rash Course Vital Signs 11/06/20 11/06/20 19:03 20:11 Temperature 98.5 F Pulse Rate 100 84 Respiratory 20 18 Rate Blood Pressure 165/57 147/63 O2 Sat by Pulse 94 L 96 Oximetry Chest Pain MDM - MDM Imaging reviewed evidence of CHF infiltrate not ruled out I did discuss findings the patient and his . Patient will be admitted does have advanced elevated d-dimer as well as elevated troponin chronic renal insufficiency also evidence of pneumonia with elevated white blood cell count left shift. The case is discussed with Dr. Callaway Disposition Clinical Impression: Chest pain, Unstable angina pectoris, Acute non-ST elevation myocardial infarction (NSTEMI), Chronic renal insufficiency, Elevated d-dimer, Congestive heart failure, Pneumonitis Disposition: ADMITTED IP TO THIS HOSP Condition: Fair Referrals: Papo Ford MD [Primary Care Provider] - 1-2 days
[2020-11-06 19:30] LABS: Anisocytosis Slight; Basophils # (A) 0.1 k/uL (0-0.2); Basophils % (A) 0 %; Eosinophils # (A) 0.4 k/uL (0-0.7); Eosinophils % (A) 3 %; HCT 25.8 % (39.0-53.0); HGB 8.5 gm/dL (13.0-17.5); Hypochromasia Slight; Lymphocytes # (A) 0.9 k/uL (1.0-4.8); Lymphocytes % (A) 7 %; MCH 29.2 pg (25.0-35.0); MCHC 32.8 g/dL (31.0-37.0); Mean Platelet Volume 6.9; Monocytes # (A) 0.7 k/uL (0-1.0); Monocytes % (A) 6 %; Neutrophils # (A) 10.4 k/uL (1.3-7.7); Neutrophils % (A) 83 %; Platelet Count 305 k/uL (150-450); RDW 16.9 % (11.5-15.5); WBC 12.5 k/uL (3.8-10.6)
--- NOTE | 2020-11-06 19:33 | XR ---
EXAMINATION TYPE: XR chest 2V DATE OF EXAM: 11/06/2020 COMPARISON: 09/07/2020. HISTORY: Chest pain. TECHNIQUE: Frontal and lateral views of the chest are obtained. FINDINGS: There is moderate interstitial edema with associated diffuse hazy opacity and small pleura l effusions. No pneumothorax seen. Cardiomegaly. The osseous structures are intact. IMPRESSION: CHF with superimposed infiltrates not excluded.
[2020-11-06 19:50] LABS: Prothrombin Time 10.8 sec (9.0-12.0)
[2020-11-06 19:54] LABS: Albumin 3.3 g/dL (3.5-5.0); Calcium 8.8 mg/dL (8.4-10.2); Magnesium 1.5 mg/dL (1.6-2.3); Potassium 3.6 mmol/L (3.5-5.1); Total Bilirubin 0.4 mg/dL (0.2-1.3); Total Protein 6.4 g/dL (6.3-8.2)
[2020-11-06 19:57] LABS: D-Dimer 2.28 mg/L FEU (<0.60)
[2020-11-06] MEDS ORDERED: cefTRIAXone IN SWFI 1,000 MG/10 ML SYRINGE IVP STA (20:03)
[2020-11-06] MEDS ORDERED: NITROGLYCERIN SL TABS 0.4 MG TAB SUBLINGUAL PRN (20:47)
[2020-11-06] MEDS ORDERED: HEPARIN SODIUM 1,000 UN/ML (10ML VL) IV ONE (20:47)
[2020-11-06] MEDS ORDERED: bisacodyL 10 MG SUPP RECTAL PRN (20:49)
[2020-11-06] MEDS ORDERED: HEPARIN SOD,PORK IN 0.45% NACL 25,000 UNIT in 0.45% NACL 1 250ML.BAG IV SCH (21:00)
[2020-11-06] MEDS: ATORVASTATIN 20 MG TAB PO SCH (21:58)
[2020-11-06] MEDS: NITROGLYCERIN OINT 1 INCH/GM PACKET TOPICAL SCH (23:17)
[2020-11-06] MEDS ORDERED: MAGNESIUM SULFATE-D5W PMX 1 GM in DEXTROSE/WATER 1 100ML.BAG IVPB ONE (23:37)
--- NOTE | 2020-11-07 03:10 | P.HPIM ---
History of Present Illness H&P Date: 11/06/20 Chief Complaint: chest pain 70 year old male with CKD , CHF, DM, hypertension patient is a senior care resident , he was sent in due to complaint of CHest pain . patient was not interested in the interview, and failed to provide any meaningful information , he follows commands, but does not meaningfully answers any of my questions. at time of interview, he seems to be very comfortable and wants to sleep. he denies any ongoing chest pain or trouble breathing at this time . history obtained by reviewing medical records. ED reported that just after lunch he experienced intermittent retrosternal chest pain that radiates to his back 8/10 in severity and gets worse with moving . EMS gave him aspirin and nitro. patient received his first dose of covid and scheduled for his second dose next week in the ED , blood work showed, chronic anemia, stable CKD III, elevated troponins. EKG no acute ST changes, CXR showed interstitial edema suggestive of CHF Review of Systems ROS unobtainable: due to mental status Past Medical History Past Medical History: Heart Failure, COPD, Diabetes Mellitus, Hyperlipidemia, Hypertension, Osteoarthritis (OA), Pneumonia, Renal Disease, Sleep Apnea /CPAP/BIPAP, Vascular Disorder Additional Past Medical History / Comment(s): IDDM type II, 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, chronic venous ulcer left anterior lower leg-treated in [facility], sepsis from L leg wound, chronic anemia, hyperkalemia, CKD-spouse states his kidneys function at 28%, DELVIN with Cpap, possible starting of dementia, confusion at times at night, bilateral lower leg varicosities, umbilical hernia, Hpylori, ambulates very little with walker and mostly wheelchair bound, recent UTI History of Any Multi-Drug Resistant Organisms: ESBL, VRE Date of last positivie culture/infection: 11/28/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 Past Anesthesia/Blood Transfusion Reactions: No Reported Reaction Date of Last Stent Placement:: 10/2015 Past Psychological History: No Psychological Hx Reported Smoking Status: Never smoker Past Alcohol Use History: None Reported Past Drug Use History: None Reported - Past Family History Father Family Medical History: COPD Additional Family Medical History / Comment(s): AT AGE 64- EMPHYSEMA(SMOKER) Mother Family Medical History: Diabetes Mellitus, Hypertension Additional Family Medical History / Comment(s): LUPUS, LEG AMPUTATED. MOM IN HER 60'S Medications and Allergies Home Medications Medication Instructions Recorded Confirmed Type Cholecalciferol [Vitamin D3 (25 25 mcg PO DAILY@1700 04/22/15 11/06/20 History Mcg = 1000 Iu)] allopurinoL [Zyloprim] 100 mg PO DAILY@0800 04/22/15 11/06/20 History Fish Oil/Dha/Epa [Fish Oil 1,200 1 cap PO DAILY@0 09/06/15 11/06/20 History mg Fish Oil] Ferrous Sulfate [Iron (65 MG 325 mg PO DAILY@169910/23/15 11/06/20 History Elemental)] calcitrioL [Calcitriol] 0.25 mcg PO SUTUTHSA@1700 12/16/18 11/06/20 History Atorvastatin [Lipitor] 20 mg PO HS@209912/09/19 11/06/20 History Aspirin EC [Ecotrin Low Dose] 81 mg PO DAILY@1700 08/08/20 11/06/20 History Pantoprazole [Protonix] 40 mg PO DAILY@0600 08/08/20 11/06/20 History Sodium Polystyrene Sulfonate 10 ml PO Q48H 08/08/20 11/06/20 History hydrALAZINE HCL [Apresoline] 100 mg PO TID@0600,1400,2100 08/08/20 11/06/20 History Epoetin Avelino-Epbx [Retacrit] 10,000 unit SQ TU@1700 09/07/20 11/06/20 History Furosemide [Lasix] 40 mg PO DAILY@0800 09/07/20 11/06/20 History INSULIN ASPART (NovoLOG) [NovoLOG 4 unit SQ TID@0700,1100,1630 09/07/20 11/06/20 History (formulary)] Insulin Glargine,Hum.rec.anlog 32 unit SQ HS@209909/07/20 11/06/20 History [Lantus Solostar] Loperamide HCl [Imodium A-D] 2 - 4 mg PO TID PRN MDD 4 tabs 09/07/20 11/06/20 History Magnesium Hydroxide [Milk of 7,200 mg PO DAILY PRN 09/07/20 11/06/20 History Magnesia Concentrate] Na Phos,M-B/Na Phos,Di-Ba [Fleet 133 ml RECTAL DAILY PRN 09/07/20 11/06/20 H istory Adult] bisacodyL [Dulcolax] 10 mg RECTAL DAILY PRN 09/07/20 11/06/20 History calcitrioL [Calcitriol] 0.5 mcg PO MOWEFR@1700 09/07/20 11/06/20 History cloNIDine HCL [Catapres] 0.1 mg PO TID@0800,1200,1700 09/07/20 11/06/20 History Gabapentin [Neurontin] 300 mg PO BID@0800,1700 #6 cap 09/12/20 11/06/20 Rx HYDROcodone/APAP 10-325MG [[place] 1 tab PO TID PRN #9 tab 09/12/20 11/06/20 Rx 10-325] Sodium Bicarbonate Tab 650 mg PO TID tab 09/12/20 11/06/20 Rx Fluticasone Nasal [place] [Flonase 1 spray EA NOSTRIL DAILY 11/06/20 11/06/20 History Nasal [place]] Ipratropium-Albuterol Nebulize 3 ml INHALATION RT-TID 11/06/20 11/06/20 History [Duoneb 0.5 mg-3 mg/3 ml Soln] amLODIPine [Norvasc] 7.5 mg PO BID 11/06/20 11/06/20 History guaiFENesin [Diabetic Tussin] 200 mg PO Q4H PRN 11/06/20 11/06/20 History Allergies Allergy/AdvReac Type Severity Reaction Status Date / Time aspirin [From Anacin] Allergy Rash/Hives Verified 11/06/20 19:09 (Dulce brand ok) sulfamethoxazole AdvReac affects Verified 11/06/20 19:09 [From Bactrim] kidneys trimethoprim [From Bactrim] AdvReac Unknown Verified 11/06/20 19:09 Physical Exam Vitals: Vital Signs Temp Pulse Resp BP Pulse Ox 11/06/20 21:17 84 18 173/73 95 11/06/20 20:11 84 18 147/63 96 11/06/20 19:03 98.5 F 100 20 165/57 94 L Intake and Output 11/06/20 11/06/20 11/06/20 06:59 14:59 22:59 Other: Weight 145.15 kg Constitutional: No acute distress, comfortable, wants to sleep , disengaged with the interview but follows commands Eyes: Anicteric sclerae, moist conjunctiva, Pupils equal round reactive to light ENMT: NC/AT Oropharynx clear, no erythema, or exudates Neck: Supple, FROM, no masses, or JVD No carotid bruits No thyromegaly Lungs: decrease breath sounds at lung bases bilaterally , poor effort overall , no wheezing , inspiratory rales at lung bases Clear to percussion Normal respiratory effort, no accessory muscle use Cardiovascular: Heart regular in rate and rhythm, No murmurs, gallops, or rubs +2 bilateral peripheral edema Abdominal: Soft Nontender, no guarding, rebound or rigidity Abdomen moving with respiration Normoactive bowel sounds No hepatomegaly, No splenomegaly No palpable mass No abdominal wall hernia noted Skin: Normal temperature, tone, texture, turgor No induration No subcutaneous nodules No rash, lesions No ulcers Extremities: No digital cyanosis No clubbing Pedal pulses intact and symmetrical Radial pulses intact and symmetrical No calf tenderness Psychiatric: Alert and oriented to person, place Neuro patient moving all extremities when asked. however, he is disengaged with the interview , and could not perform thorough neuro exam Lymphatics: no palpable cervical or supraclavicular , or inguinal lymph nodes Results CBC & Chem 7: 11/06/20 19:14 11/06/20 19:14 Labs: Abnormal Lab Results - Last 24 Hours (Table) 11/06/20 11/06/20 11/06/20 Range/Units 19:14 19:14 19:14 WBC 12.5 H (3.8-10.6) k/uL RBC 2.90 L (4.30-5.90) m/uL Hgb 8.5 L (13.0-17.5) gm/dL Hct 25.8 L (39.0-53.0) % RDW 16.9 H (11.5-15.5) % Neutrophils # 10.4 H (1.3-7.7) k/uL Lymphocytes # 0.9 L (1.0-4.8) k/uL D-Dimer 2.28 H (<0.60) mg/L FEU Chloride 111 H (98-107) mmol/L Carbon Dioxide 17 L (22-30) mmol/L BUN 87 H (9-20) mg/dL Creatinine 2.93 H (0.66-1.25) mg/dL Glucose 208 H (74-99) mg/dL Magnesium 1.5 L (1.6-2.3) mg/dL Alkaline Phosphatase 138 H (38-126) U/L Troponin I (0.000-0.034) ng/mL Albumin 3.3 L (3.5-5.0) g/dL 11/06/20 Range/Units 19:14 WBC (3.8-10.6) k/uL RBC (4.30-5.90) m/uL Hgb (13.0-17.5) gm/dL Hct (39.0-53.0) % RDW (11.5-15.5) % Neutrophils # (1.3-7.7) k/uL Lymphocytes # (1.0-4.8) k/uL D-Dimer (<0.60) mg/L FEU Chloride (98-107) mmol/L Carbon Dioxide (22-30) mmol/L BUN (9-20) mg/dL Creatinine (0.66-1.25) mg/dL Glucose (74-99) mg/dL Magnesium (1.6-2.3) mg/dL Alkaline Phosphatase (38-126) U/L Troponin I 0.043 H* (0.000-0.034) ng/mL Albumin (3.5-5.0) g/dL Assessment and Plan Assessment: atypical chest pain rule out ACS systolic CHF exacerbation plan ASA, statin trend cardiac enzymes editorial clerk cardiology consult pain control if recurrent lasix IV BID chronic conditions chronic anemia stable CKD III, stable hypertension controlled DM , insulin sliding scale verify home medications follow up morning labs CODE STATUS: patient did not want to discuss DVT prophylaxis: heparin sc tid Discussed with: Patient, ER Anticipated length of stay > than [address]: [facility] A total of 60 minutes was spent on the care of this complex patient more than 50% of the time was spent in counseling and care coordination.
[2020-11-07 04:42] LABS: Anisocytosis Slight; Basophils % (A) 0 %; Eosinophils # (A) 0.2 k/uL (0-0.7); Eosinophils % (A) 2 %; HCT 23.7 % (39.0-53.0); HGB 7.8 gm/dL (13.0-17.5); Hypochromasia Slight; Lymphocytes # (A) 0.8 k/uL (1.0-4.8); Lymphocytes % (A) 8 %; MCH 29.8 pg (25.0-35.0); MCV 90.3 fL (80.0-100.0); Monocytes # (A) 0.6 k/uL (0-1.0); Monocytes % (A) 6 %; Neutrophils # (A) 8.3 k/uL (1.3-7.7); Neutrophils % (A) 83 %; Platelet Count 277 k/uL (150-450); RBC 2.63 m/uL (4.30-5.90); RDW 16.8 % (11.5-15.5)
[2020-11-07 04:49] LABS: Albumin 3.1 g/dL (3.5-5.0); Calcium 9.1 mg/dL (8.4-10.2); Magnesium 1.7 mg/dL (1.6-2.3); Potassium 3.7 mmol/L (3.5-5.1); Total Bilirubin 0.4 mg/dL (0.2-1.3)
[2020-11-07 06:01] LABS: Glucose,Whole Blood 179 mg/dL (75-99)
[2020-11-07] MEDS: NITROGLYCERIN OINT 1 INCH/GM PACKET TOPICAL SCH ×4 (06:53→23:34)
[2020-11-07] MEDS: INSULIN ASPART (NovoLOG) 100 UNIT/ML VIAL SQ SCH ×5 (06:54→21:14)
[2020-11-07] MEDS ORDERED: ASPIRIN 325 MG TAB PO SCH (09:00)
[2020-11-07] MEDS ORDERED: FUROSEMIDE 10 MG/ML 4 ML VIAL IV SCH (09:00)
[2020-11-07] MEDS: cloNIDine HCL 0.1 MG TAB PO SCH ×3 (11:43→16:52)
[2020-11-07] MEDS: allopurinoL 100 MG TAB PO SCH (11:43)
[2020-11-07] MEDS: amLODIPine 5 MG TAB PO SCH ×2 (11:43→16:51)
--- NOTE | 2020-11-07 11:59 | US ---
EXAMINATION TYPE: US venous doppler duplex LE RT DATE OF EXAM: 11/07/2020 11:14 AM COMPARISON: US bilateral 2018 CLINICAL HISTORY: right lower extremity 3+ pitting edema. Right leg swelling, elevated d-dimer Exam done portable. SIDE PERFORMED: Right TECHNIQUE: The lower extremity deep venous system is examined utilizing real time linear array sonog salima with graded compression, doppler sonography and color-flow sonography. VESSELS IMAGED: Common Femoral Vein Deep Femoral Vein Greater Saphenous Vein * Femoral Vein Popliteal Vein Small Saphenous Vein * Proximal Calf Veins (* superficial vessels) Difficult and limited study due to patient body habitus, unable to obtain sagittal images of poplit eal vein due to swelling behind patient's knee, distal femoral vein not seen in transverse compressio n view due to leg swelling Right Leg: Visualized portions appear negative for DVT Grayscale, color doppler, spectral doppler imaging performed of the deep veins of the right lower ext remity. There is normal flow, compressibility, vascular waveforms. IMPRESSION: No ultrasound evidence for acute DVT in the right lower extremity. Mild Subcutaneous kobe ma distally.
--- NOTE | 2020-11-07 12:14 | ECHOF ---
Referral Reason:chest pain, elevated troponin MEASUREMENTS -------- HEIGHT: 177.8 cm WEIGHT: 150.1 kg BP: 162/74 RVIDd: 5.0 cm (< 3.3) IVSd: 1.4 cm (0.6 - 1.1) LVIDd: 5.9 cm (3.9 - 5.3) LVPWd: 1.5 cm (0.6 - 1.1) IVSs: 2.3 cm LVIDs: 3.7 cm LVPWs: 2.2 cm LAESV Index (A-L): 52.07 ml/m Ao Diam: 3.1 cm (2.0 - 3.7) AV Cusp: 1.9 cm (1.5 - 2.6) LA Diam: 5.4 cm (2.7 - 3.8) MV EXCURSION: 19.135 mm (> 18.000) MV EF SLOPE: 92 mm/s (70 - 150) EPSS: 0.6 cm MV E Pineda: 1.31 m/s MV DecT: 209 ms MV A [place]: 1.39 m/s MV E/A Ratio: 0.94 RAP: 5.00 mmHg RVSP: 51.32 mmHg TAPSE: 32.79 mm FINDINGS -------- Sinus rhythm. This was a technically adequate study. The left ventricular size is normal. There is moderate concentric left ventricular hypertrophy. O verall left ventricular systolic function is normal with, an EF between 55 - 60 %. Increased Lap Gr xu II Diastolic Dysfunction. The right ventricle is severely enlarged. LA is severely dilated >40 ml/m2 The right atrium is moderately enlarged. Interatrial and interventricular septum intact. There is no evidence of aortic regurgitation. There is no evidence of aortic stenosis. Moderate mitral regurgitation is present. Moderate to severe tricuspid regurgitation present. There is moderate to severe pulmonary hypertens ion. The right ventricular systolic pressure, as measured by Doppler, is 51.32mmHg. Trace/mild (physiologic) pulmonic regurgitation. The aortic root size is normal. IVC Not well visulized. CONCLUSIONS -------- 1. The left ventricular size is normal. 2. There is moderate concentric left ventricular hypertrophy. 3. Overall left ventricular systolic function is normal with, an EF between 55 - 60 %. 4. Increased Lap Grade II Diastolic Dysfunction. 5. The right ventricle is severely enlarged. 6. LA is severely dilated >40 ml/m2 7. The right atrium is moderately enlarged. 8. There is no evidence of aortic regurgitation. 9. There is no evidence of aortic stenosis. 10. Moderate mitral regurgitation is present. 11. Moderate to severe tricuspid regurgitation present. 12. There is moderate to severe pulmonary hypertension. 13. The right ventricular systolic pressure, as measured by Doppler, is 51.32mmHg. 14. Trace/mild (physiologic) pulmonic regurgitation. 15. The aortic root size is normal. NITROCELLULOSE MAKER: Yolanda Kat RDCS
--- NOTE | 2020-11-07 12:42 | P.CONS ---
History of Present Illness - Reason for Consult Consult date: 11/07/20 Wound care - History of Present Illness This is a 70-year-old patient known to the wound care service that is not currently a patient at this time. He is under care at [facility] for wound care. He has been having cellulitis to the left lower extremity which is chronic for him. They've been utilizing calmoseptine and a Pastor wrap. Patient does have edema to the right lower extremity. There is no open ulcerations at this time. Patient is a poor historian. His is at the bedside to answer most of his questions. Patient states he has no other ulcerations Review Of Systems: Constitutional: No fever, no chills, no night sweats. No weight change. No weakness, fatigue or lethargy. No daytime sleepiness. Integumentary:reports wounds, no lesions. No rash or pruritus. No unusual bruising. No change in hair or nails. Physical exam: General Appearance: Alert, cooperative, no distress, appears stated age. Skin: See HPI all other Skin color, texture, tugor normal, no rashes or lesions. Neurologic: Alert oriented x3 Assessment/plan: 1. Cellulitis: Apply calmoseptine to bilateral lower extremities and wrap with Pastor wrap daily. Keep legs elevated. Thank you for the consultation any questions contact the wound care center DNP note has been reviewed and discussed with Dr. Foster and the impression a nd plan of care has been directed as dictated. 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 Past Anesthesia/Blood Transfusion Reactions: No Reported Reaction Date of Last Stent Placement:: 10/2015 Past Psychological History: No Psychological Hx Reported Smoking Status: Never smoker Past Alcohol Use History: None Reported Past Drug Use History: None Reported - Past Family History Father Family Medical History: COPD Additional Family Medical History / Comment(s): AT AGE 64- EMPHYSEMA(SMOKER) Mother Family Medical History: Diabetes Mellitus, Hypertension Additional Family Medical History / Comment(s): LUPUS, LEG AMPUTATED. MOM IN HER 60'S Medications and Allergies Home Medications Medication Instructions Recorded Confirmed Type Cholecalciferol [Vitamin D3 (25 25 mcg PO DAILY@0 04/22/15 11/06/20 History Mcg = 1000 Iu)] allopurinoL [Zyloprim] 100 mg PO DAILY@0800 04/22/15 11/06/20 History Fish Oil/Dha/Epa [Fish Oil 1,200 1 cap PO DAILY@0 09/06/15 11/06/20 History mg Fish Oil] Ferrous Sulfate [Iron (65 MG 325 mg PO DAILY@169910/23/15 11/06/20 History Elemental)] calcitrioL [Calcitriol] 0.25 mcg PO SUTUTHSA@1700 12/16/18 11/06/20 History Atorvastatin [Lipitor] 20 mg PO HS@209912/09/19 11/06/20 History Aspirin EC [Ecotrin Low Dose] 81 mg PO DAILY@0 08/08/20 11/06/20 History Pantoprazole [Protonix] 40 mg PO DAILY@0600 08/08/20 11/06/20 History Sodium Polystyrene Sulfonate 10 ml PO Q48H 08/08/20 11/06/20 History hydrALAZINE HCL [Apresoline] 100 mg PO TID@0600,1400,2100 08/08/20 11/06/20 H istory Epoetin Avelino-Epbx [Retacrit] 10,000 unit SQ TU@1700 09/07/20 11/06/20 History Furosemide [Lasix] 40 mg PO DAILY@0800 09/07/20 11/06/20 History INSULIN ASPART (NovoLOG) [NovoLOG 4 unit SQ TID@0700,1100,1630 09/07/20 11/06/20 History (formulary)] Insulin Glargine,Hum.rec.anlog 32 unit SQ HS@2100 09/07/20 11/06/20 History [Lantus Solostar] Loperamide HCl [Imodium A-D] 2 - 4 mg PO TID PRN MDD 4 tabs 09/07/20 11/06/20 History Magnesium Hydroxide [Milk of 7,200 mg PO DAILY PRN 09/07/20 11/06/20 History Magnesia Concentrate] Na Phos,M-B/Na Phos,Di-Ba [Fleet 133 ml RECTAL DAILY PRN 09/07/20 11/06/20 History Adult] bisacodyL [Dulcolax] 10 mg RECTAL DAILY PRN 09/07/20 11/06/20 History calcitrioL [Calcitriol] 0.5 mcg PO MOWEFR@1700 09/07/20 11/06/20 History cloNIDine HCL [Catapres] 0.1 mg PO TID@0800,1200,1700 09/07/20 11/06/20 History Gabapentin [Neurontin] 300 mg PO BID@0800,1700 #6 cap 09/12/20 11/06/20 Rx HYDROcodone/APAP 10-325MG [[place] 1 tab PO TID PRN #9 tab 09/12/20 11/06/20 Rx 10-325] Sodium Bicarbonate Tab 650 mg PO TID tab 09/12/20 11/06/20 Rx Fluticasone Nasal [place] [Flonase 1 spray EA NOSTRIL DAILY 11/06/20 11/06/20 His tory Nasal [place]] Ipratropium-Albuterol Nebulize 3 ml INHALATION RT-TID 11/06/20 11/06/20 History [Duoneb 0.5 mg-3 mg/3 ml Soln] amLODIPine [Norvasc] 7.5 mg PO BID 11/06/20 11/06/20 History guaiFENesin [Diabetic Tussin] 200 mg PO Q4H PRN 11/06/20 11/06/20 History Allergies Allergy/AdvReac Type Severity Reaction Status Date / Time aspirin [From Anacin] Allergy Rash/Hives Verified 11/06/20 19:09 (Dulce brand ok) sulfamethoxazole AdvReac affects Verified 11/06/20 19:09 [From Bactrim] kidneys trimethoprim [From Bactrim] AdvReac Unknown Verified 11/06/20 19:09 Physical Exam Vitals: Vital Signs Temp Pulse Pulse Resp BP BP Pulse Ox 11/07/20 11:35 74 16 189/84 96 11/07/20 08:00 97.7 F 74 16 166/67 95 11/07/20 03:46 98.0 F 75 18 162/74 95 11/07/20 00:00 98.0 F 78 19 160/63 96 11/06/20 21:17 84 18 173/73 95 11/06/20 21:15 98.0 F 78 19 156/66 95 11/06/20 20:11 84 18 147/63 96 11/06/20 19:03 98.5 F 100 20 165/57 94 L Intake and Output 11/06/20 11/07/20 11/07/20 22:59 06:59 14:59 Intake Total 74.729 Balance 74.729 Intake: Intake, IV Titration 74.729 Amount Heparin Sod,Pork in 0.45% 74.729 NaCl 25,000 unit In 0.45 % NaCl 1 250ml.bag @ 6.88 UNITS/KG/HR 9.986 mls/hr IV .Q24H [facility] Rx#: [id number] Other: Voiding Method Diaper # Voids 0 Weight 145.15 kg 150.5 kg Results CBC & Chem 7: 11/07/20 03:53 11/07/20 03:53 Labs: Abnormal Lab Results - Last 24 Hours (Table) 11/06/20 11/06/20 11/06/20 Range/Units 19:14 19:14 19:14 WBC 12.5 H (3.8-10.6) k/uL RBC 2.90 L (4.30-5.90) m/uL Hgb 8.5 L (13.0-17.5) gm/dL Hct 25.8 L (39.0-53.0) % RDW 16.9 H (11.5-15.5) % Neutrophils # 10.4 H (1.3-7.7) k/uL Lymphocytes # 0.9 L (1.0-4.8) k/uL APTT (22.0-30.0) sec D-Dimer 2.28 H (<0.60) mg/L FEU Chloride 111 H (98-107) mmol/L Carbon Dioxide 17 L (22-30) mmol/L BUN 87 H (9-20) mg/dL Creatinine 2.93 H (0.66-1.25) mg/dL Glucose 208 H (74-99) mg/dL POC Glucose (mg/dL) (75-99) mg/dL Magnesium 1.5 L (1.6-2.3) mg/dL Alkaline Phosphatase 138 H (38-126) U/L Troponin I (0.000-0.034) ng/mL Total Protein (6.3-8.2) g/dL Albumin 3.3 L (3.5-5.0) g/dL HDL Cholesterol (40-60) mg/dL 11/06/20 11/06/20 11/07/20 Range/Units 19:14 22:00 01:08 WBC (3.8-10.6) k/uL RBC (4.30-5.90) m/uL Hgb (13.0-17.5) gm/dL Hct (39.0-53.0) % RDW (11.5-15.5) % Neutrophils # (1.3-7.7) k/uL Lymphocytes # (1.0-4.8) k/uL APTT (22.0-30.0) sec D-Dimer (<0.60) mg/L FEU Chloride (98-107) mmol/L Carbon Dioxide (22-30) mmol/L BUN (9-20) mg/dL Creatinine (0.66-1.25) mg/dL Glucose (74-99) mg/dL POC Glucose (mg/dL) (75-99) mg/dL Magnesium (1.6-2.3) mg/dL Alkaline Phosphatase (38-126) U/L Troponin I 0.043 H* 0.053 H* 0.059 H* (0.000-0.034) ng/mL Total Protein (6.3-8.2) g/dL Albumin (3.5-5.0) g/dL HDL Cholesterol (40-60) mg/dL 05/06/21 05/06/21 05/06/21 Range/Units 03:53 03:53 06:00 WBC (3.8-10.6) k/uL RBC 2.63 L (4.30-5.90) m/uL Hgb 7.8 L (13.0-17.5) gm/dL Hct 23.7 L (39.0-53.0) % RDW 16.8 H (11.5-15.5) % Neutrophils # 8.3 H (1.3-7.7) k/uL Lymphocytes # 0.8 L (1.0-4.8) k/uL APTT (22.0-30.0) sec D-Dimer (<0.60) mg/L FEU Chloride 112 H (98-107) mmol/L Carbon Dioxide 18 L (22-30) mmol/L BUN 89 H (9-20) mg/dL Creatinine 2.90 H (0.66-1.25) mg/dL Glucose 195 H (74-99) mg/dL POC Glucose (mg/dL) 179 H (75-99) mg/dL Magnesium (1.6-2.3) mg/dL Alkaline Phosphatase 129 H (38-126) U/L Troponin I (0.000-0.034) ng/mL Total Protein 6.0 L (6.3-8.2) g/dL Albumin 3.1 L (3.5-5.0) g/dL HDL Cholesterol 27 L (40-60) mg/dL 11/07/20 Range/Units 11:20 WBC (3.8-10.6) k/uL RBC (4.30-5.90) m/uL Hgb (13.0-17.5) gm/dL Hct (39.0-53.0) % RDW (11.5-15.5) % Neutrophils # (1.3-7.7) k/uL Lymphocytes # (1.0-4.8) k/uL APTT 32.0 H (22.0-30.0) sec D-Dimer (<0.60) mg/L FEU Chloride (98-107) mmol/L Carbon Dioxide (22-30) mmol/L BUN (9-20) mg/dL Creatinine (0.66-1.25) mg/dL Glucose (74-99) mg/dL POC Glucose (mg/dL) (75-99) mg/dL Magnesium (1.6-2.3) mg/dL Alkaline Phosphatase (38-126) U/L Troponin I (0.000-0.034) ng/mL Total Protein (6.3-8.2) g/dL Albumin (3.5-5.0) g/dL HDL Cholesterol (40-60) mg/dL Assessment and Plan (1) Bilateral lower extremity edema Current Visit: No Status: Acute Code(s): R60.0 - LOCALIZED EDEMA SNOMED Code(s): 539437384 (2) Cellulitis of left leg Current Visit: No Status: Acute Code(s): L03.116 - CELLULITIS OF LEFT LOWER LIMB SNOMED Code(s): 759295656
[2020-11-07] MEDS ORDERED: MENTHOL-ZINC OXIDE OINT 113 GM TUBE TOPICAL SCH (13:00)
--- NOTE | 2020-11-07 13:09 | P.CRDCN ---
History of Present Illness History of present illness: HISTORY OF PRESENTING ILLNESS This is a pleasant 70-year-old male past medical history significant for coronary artery disease status post stenting to LAD in 2016, heart failure with preserved ejection fraction, COPD, obstructive sleep apnea, type 2 diabetes, hypertension, dyslipidemia, chronic kidney disease.. He follows in the office with Dr. Yarbrough. We have been asked to see in consultation for chest pain, elevated troponin. Patient presents from [facility]. Patient states that he started having chest pain across his anterior chest pain, band-like. Describes as a pressure. It is non-radiating. He also has chronic back pain. Endorses associated shortness of breath. He also states he's had worsening lower extremity edema. Taking a deep breath and some movement in bed worsens the pain. Chest pain lasts for about 30 minutes time. Patient does have symptoms of orthopnea and PND he states he's been sleeping in a recliner since he was abnormal. He is bedbound. He states a few days ago he was being lifted with the Lift at [facility], he states that they did drop him. He was told this information doesn't recall this incident occurring. Current home cardiac medications include []. DIAGNOSTICS Echocardiogram revealed EF 55-60%, increased grade 2 diastolic dysfunction, RV is severely enlarged, LA severely dilated, right atrium is moderately enlarged, moderate mitral regurgitation, moderate to severe tricuspid regurgitation, moderate severe pulmonary hypertension with an RVSP of 51.3 mmHg EKG reveals sinus tachycardia, heart rate 103, no significant STT wave abno rmalities Dopplers of lower extremities were negative for DVT Last Cardiac Catheterization 10/2015 with successful stenting of the proximal LAD Telemetry tracings indicate sinus mechanism heart rate 60 to 80s Chest xray moderate interstitial edema congestive heart failure with superimposed infiltrates on excluded Laboratory reviewed, troponin d-dimer elevated troponin to 8 0.04-->0.052, BNP 6630, WBC 12.5, hemoglobin 8.5, sodium 141, potassium 3.7, serum creatinine 2.9, BUN 89, triglycerides 62, cholesterol 69, LDL 30, HDL 27, COVID-19 negative REVIEW OF SYSTEMS At the time of my exam: CONSTITUTIONAL: Denies fever or chills. CARDIOVASCULAR: Positive chest pain, positive shortness of breath, positive orthopnea, positive PND denies palpitations RESPIRATORY: Denies cough. GASTROINTESTINAL: Denies abdominal pain, diarrhea, constipation, nausea or vomiting. MUSCULOSKELETAL: Denies myalgias. NEUROLOGIC: Denies numbness, tingling, headacbe or weakness. ENDOCRINE: Denies fatigue, weight change, polydipsia or polyurina. GENITOURINARY: Denies burning, hematuria or urgency with micturation. HEMATOLOGIC: Denies history of anemia or bleeding. PHYSICAL EXAMINATION Blood pressure 166/67 heart rate 74 afebrile and maintaining oxygen saturation 96% on 2 L nasal cannula CONSTITUTIONAL: No apparent distress. HEENT: Head is normocephalic. Pupils are equal, round. Sclerae anicteric. Mucous membranes of the mouth are moist. No JVD. No carotid bruit. CHEST EXAMINATION: Lungs are diminished to auscultation. No chest wall tenderness is noted on palpation or with deep breathing. HEART EXAMINATION: Regular rate and rhythm. S1, S2 heard. systolic murmur, No gallops or rub. ABDOMEN: Soft, nontender. Positive bowel sounds. EXTREMITIES: 2+ peripheral pulses, 3+ bilateral edema Right > Left, some mild calf tenderness SKIN: Left lower leg wrapped in LEILA bandage NEUROLOGIC EXAMINATION: Patient is awake, alert and oriented x3. ASSESSMENT Elevated troponin, is not indicative of a myocardial infarction Coronary artery disease status post stent to LAD in 2016 Acute on chronic diastolic heart failure with preserved ejection fraction 55-60% COPD Obstructive sleep apnea Type 2 diabetes History of hypertension Dyslipidemia Chronic kidney disease PLAN Obtain 2D echocardiogram completed at results above Continue amlodipine 5 mg, aspirin, atorvastatin Continue IV Lasix 60 mg twice a day Patient VQ scan to rule out DVT, if no DVT, ok to discontinue IV heparin from cardiology perspective We can perform a stress test as an outpatient to assess for stress induced cardiac ischemia, no need to be done while inpatient at this time Follow up with Dr. Yarbrough Thank you kindly for this consultation. Nurse Practitioner note has been reviewed, I agree with a documented findings and plan of care. Patient was seen and examined. Past Medical History Past Medical History: Heart Failure, COPD, Diabetes Mellitus, Hyperlipidemia, Hypertension, Osteoarthritis (OA), Pneumonia, Renal Disease, Sleep Apnea/CPAP/BIPAP, Vascular Disorder Additional Past Medical History / Comment(s): IDDM type II, 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, chronic venous ulcer left anterior lower leg-treated in [facility], sepsis from L leg wound, chronic anemia, hyperkalemia, CKD-spouse states his kidneys function at 28%, DELVIN with Cpap, possible starting of dementia, confusion at times at night, bilateral lower leg varicosities, umbilical hernia, Hpylori, ambulates very little with walker and mostly wheelchair bound, recent UTI History of Any Multi-Drug Resistant Organisms: ESBL, VRE Date of last positivie culture/infection: 11/28/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 Past Anesthesia/Blood Transfusion Reactions: No Reported Reaction Date of Last Stent Placement:: 10/2015 Past Psychological History: No Psychological Hx Reported Smoking Status: Never smoker Past Alcohol Use History: None Reported Past Drug Use History: None Reported - Past Family History Father Family Medical History: COPD Additional Family Medical History / Comment(s): AT AGE 64- EMPHYSEMA(SMOKER) Mother Family Medical History: Diabetes Mellitus, Hypertension Additional Family Medical History / Comment(s): LUPUS, LEG AMPUTATED. MOM IN HER 60'S Medications and Allergies Home Medications Medication Instructions Recorded Confirmed Type Cholecalciferol [Vitamin D3 (25 25 mcg PO DAILY@0 04/22/15 11/06/20 History Mcg = 1000 Iu)] allopurinoL [Zyloprim] 100 mg PO DAILY@0800 04/22/15 11/06/20 History Fish Oil/Dha/Epa [Fish Oil 1,200 1 cap PO DAILY@0 09/06/15 11/06/20 History mg Fish Oil] Ferrous Sulfate [Iron (65 MG 325 mg PO DAILY@169910/23/15 11/06/20 History Elemental)] calcitrioL [Calcitriol] 0.25 mcg PO SUTUTHSA@1700 12/16/18 11/06/20 History Atorvastatin [Lipitor] 20 mg PO HS@2100 12/09/19 11/06/20 History Aspirin EC [Ecotrin Low Dose] 81 mg PO DAILY@1700 08/08/20 11/06/20 History Pantoprazole [Protonix] 40 mg PO DAILY@0600 08/08/20 11/06/20 History Sodium Polystyrene Sulfonate 10 ml PO Q48H 08/08/20 11/06/20 History hydrALAZINE HCL [Apresoline] 100 mg PO TID@0600,1400,2100 08/08/20 11/06/20 History Epoetin Avelino-Epbx [Retacrit] 10,000 unit SQ TU@1700 09/07/20 11/06/20 History Furosemide [Lasix] 40 mg PO DAILY@0800 09/07/20 11/06/20 History INSULIN ASPART (NovoLOG) [NovoLOG 4 unit SQ TID@0700,1100,1630 09/07/20 11/06/20 History (formulary)] Insulin Glargine,Hum.rec.anlog 32 unit SQ HS@2100 09/07/20 11/06/20 History [Lantus Solostar] Loperamide HCl [Imodium A-D] 2 - 4 mg PO TID PRN MDD 4 tabs 09/07/20 11/06/20 History Magnesium Hydroxide [Milk of 7,200 mg PO DAILY PRN 09/07/20 11/06/20 History Magnesia Concentrate] Na Phos,M-B/Na Phos,Di-Ba [Fleet 133 ml RECTAL DAILY PRN 09/07/20 11/06/20 History Adult] bisacodyL [Dulcolax] 10 mg RECTAL DAILY PRN 09/07/20 11/06/20 History calcitrioL [Calcitriol] 0.5 mcg PO MOWEFR@1700 09/07/20 11/06/20 History cloNIDine HCL [Catapres] 0.1 mg PO TID@0800,1200,1700 09/07/20 11/06/20 History Gabapentin [Neurontin] 300 mg PO BID@0800,1700 #6 cap 09/12/20 11/06/20 Rx HYDROcodone/APAP 10-325MG [[place] 1 tab PO TID PRN #9 tab 09/12/20 11/06/20 Rx 10-325] Sodium Bicarbonate Tab 650 mg PO TID tab 09/12/20 11/06/20 Rx Fluticasone Nasal [place] [Flonase 1 spray EA NOSTRIL DAILY 11/06/20 11/06/20 History Nasal [place]] Ipratropium-Albuterol Nebulize 3 ml INHALATION RT-TID 11/06/20 11/06/20 History [Duoneb 0.5 mg-3 mg/3 ml Soln] amLODIPine [Norvasc] 7.5 mg PO BID 11/06/20 11/06/20 History guaiFENesin [Diabetic Tussin] 200 mg PO Q4H PRN 11/06/20 11/06/20 History Allergies Allergy/AdvReac Type Severity Reaction Status Date / Time aspirin [From Anacin] Allergy Rash/Hives Verified 11/06/20 19:09 (Dulce brand ok) sulfamethoxazole AdvReac affects Verified 11/06/20 19:09 [From Bactrim] kidneys trimethoprim [From Bactrim] AdvReac Unknown Verified 11/06/20 19:09 Physical Exam Vitals: Vital Signs Temp Pulse Pulse Resp BP BP Pulse Ox 11/07/20 03:46 98.0 F 75 18 162/74 95 11/07/20 00:00 98.0 F 78 19 160/63 96 11/06/20 21:17 84 18 173/73 95 11/06/20 21:15 98.0 F 78 19 156/66 95 11/06/20 20:11 84 18 147/63 96 11/06/20 19:03 98.5 F 100 20 165/57 94 L Intake and Output 11/06/20 11/07/20 11/07/20 22:59 06:59 14:59 Intake Total 74.729 Balance 74.729 Intake: Intake, IV Titration 74.729 Amount Heparin Sod,Pork in 0.45% 74.729 NaCl 25,000 unit In 0.45 % NaCl 1 250ml.bag @ 6.88 UNITS/KG/HR 9.986 mls/hr IV .Q24H [facility] Rx#: [id number] Other: Voiding Method Diaper # Voids 0 Weight 145.15 kg 150.5 kg Results 11/07/20 03:53 11/07/20 03:53 Cardiac Enzymes 11/06/20 11/06/20 11/06/20 Range/Units 19:14 19:14 22:00 AST 22 (17-59) U/L Troponin I 0.043 H* 0.053 H* (0.000-0.034) ng/mL 11/07/20 11/07/20 Range/Units 01:08 03:53 AST 22 (17-59) U/L Troponin I 0.059 H* (0.000-0.034) ng/mL Coagulation 11/06/20 11/07/20 Range/Units 19:14 03:53 PT 10.8 (9.0-12.0) sec APTT 22.0 28.5 (22.0-30.0) sec Lipids 11/07/20 Range/Units 03:53 Triglycerides 62 (<150) mg/dL Cholesterol 69 (<200) mg/dL HDL Cholesterol 27 L (40-60) mg/dL CBC 11/06/20 11/07/20 Range/Units 19:14 03:53 WBC 12.5 H 10.0 (3.8-10.6) k/uL RBC 2.90 L 2.63 L (4.30-5.90) m/uL Hgb 8.5 L 7.8 L (13.0-17.5) gm/dL Hct 25.8 L 23.7 L (39.0-53.0) % Plt Count 305 277 (150-450) k/uL Comprehensive Metabolic Panel 11/06/20 11/07/20 Range/Units 19:14 03:53 Sodium 141 141 (137-145) mmol/L Potassium 3.6 3.7 (3.5-5.1) mmol/L Chloride 111 H 112 H (98-107) mmol/L Carbon Dioxide 17 L 18 L (22-30) mmol/L BUN 87 H 89 H (9-20) mg/dL Creatinine 2.93 H 2.90 H (0.66-1.25) mg/dL Glucose 208 H 195 H (74-99) mg/dL Calcium 8.8 9.1 (8.4-10.2) mg/dL AST 22 22 (17-59) U/L ALT 23 23 (4-49) U/L Alkaline Phosphatase 138 H 129 H (38-126) U/L Total Protein 6.4 6.0 L (6.3-8.2) g/dL Albumin 3.3 L 3.1 L (3.5-5.0) g/dL Current Medications Generic Name Dose Route Start Last Admin Trade Name Freq PRN Reason Stop Dose Admin Allopurinol 100 mg 11/07/20 08:00 Allopurinol 100 Mg Tab PO DAILY@0800 [facility] Amlodipine Besylate 5 mg 11/07/20 08:00 Amlodipine 5 Mg Tab PO BID@0800,1700 [facility] Aspirin 325 mg 11/07/20 09:00 Aspirin 325 Mg Tab PO DAILY [facility] Atorvastatin Calcium 20 mg 11/06/20 21:00 11/06/20 21:58 Atorvastatin 20 Mg Tab PO 20 mg HS@2100 [facility] Administration Bisacodyl 10 mg 11/06/20 20:49 Bisacodyl 10 Mg Supp RECTAL DAILY PRN Constipation Cholecalciferol 25 mcg 11/07/20 17:00 Cholecalciferol 25 Mcg (1000 Iu) Tablet PO DAILY@1700 [facility] Clonidine 0.1 mg 11/07/20 08:00 Clonidine Hcl 0.1 Mg Tab PO TID@0800,1200,1700 [facility] Furosemide 40 mg 11/07/20 09:00 Furosemide 10 Mg/Ml 4 Ml Vial IV Q12HR [facility] Heparin Sodium/Sodium Chloride 250 mls @ 9.986 mls/hr 11/06/20 21:00 11/07/20 05:29 25,000 unit/ Sodium Chloride IV 9.88 units/kg/hr .Q24H [facility] 14.341 mls/hr Titration Protocol 6.88 UNITS/KG/HR Insulin Aspart 0 unit 11/07/20 07:30 11/07/20 06:54 Insulin Aspart (Novolog) 100 Unit/Ml Vial SQ 2 unit ACHS [facility] Administration Protocol Nitroglycerin 0.4 mg 11/06/20 20:47 Nitroglycerin Sl Tabs 0.4 Mg Tab SUBLINGUAL Q5M PRN Chest Pain Nitroglycerin 1 inch 11/07/20 00:00 11/07/20 06:53 Nitroglycerin Oint 1 Inch/Gm Packet TOPICAL 1 inch Q6HR [facility] Administration Intake and Output 11/06/20 11/07/20 11/07/20 22:59 06:59 14:59 Intake Total 74.729 Balance 74.729 Intake: Intake, IV Titration 74.729 Amount Heparin Sod,Pork in 0.45% 74.729 NaCl 25,000 unit In 0.45 % NaCl 1 250ml.bag @ 6.88 UNITS/KG/HR 9.986 mls/hr IV .Q24H [facility] Rx#: [id number] Other: Voiding Method Diaper # Voids 0 Weight 145.15 kg 150.5 kg 11/07/20 03:53 11/07/20 03:53
--- NOTE | 2020-11-07 13:53 | NM ---
EXAMINATION TYPE: NM pul perfusion DATE OF EXAM: 11/07/2020 COMPARISON: Chest radiograph 11/06/2020 HISTORY: Elevated d-dimer Perfusion images were obtained following administration of 5.3 mCi Tc 99m MAA. Patient could not tole rate additional timeline flat to obtain ventilation images. FINDINGS: Chest radiograph from 11/06/2020 demonstrated cardiomegaly, interstitial edema, and small bilateral ple ural effusions. Perfusion images are homogenous with no segmental defects. IMPRESSION: Limited exam with only perfusion images obtained. Perfusion images are homogenous with very low proba bility for pulmonary embolism.
[2020-11-07] MEDS ORDERED: DARBEPOETIN ALFA 60 MCG/0.3 ML SYRINGE SQ SCH (14:00)
[2020-11-07] MEDS ORDERED: guaiFENesin SYRUP 100MG/5ML 200 MG/10 ML CUP PO PRN (14:37)
--- NOTE | 2020-11-07 14:47 | P.PN ---
<Lorne Buckley - Last Filed: 11/07/20 13:59> Subjective Progress Note Date: 11/07/20 Hospital course: Patient is a 70-year-old male who resides at [facility] secondary to wheelchair/bed bound status along with a past medical history significant for CAD with previous stent placement, chronic diastolic congestive heart failure, CKD stage IV, hypertension, hyperlipidemia, chronic anemia, chronic left lower extremity cellulitis and history of ESBL and VRE infections. Patient presented to the hospital on 11/06/20 with a chief complaint of chest pain. He was fully evaluated in the emergency department and found to have an elevated troponin of 0.053 and 0.059 as well as an elevated proBNP of 6630. Chest x-ray significant for CHF. He was started on heparin infusion per ACS protocol for NSTEMI. His EKG was completed revealing sinus tachycardia at 103 bpm with no noted T-wave or ST abnormalities and no changes from previous EKG with the exception of rate. Patient was admitted to our services for elevated troponins and acute exacerbation of chronic diastolic heart failure. Cardiology consulted. Physical exam: Patient seen and fully evaluated at bedside this morning. Patient reports back pain wrapping around into chest. He reports this pain began about 5 days ago status post being dropped from [facility]. Orders place for CT thoracic and lumbar spine. Patient also reports having dry cough 2 days and mild shortness of breath similar to previous episode of pneumonia. Patient denies having any headache, lightheadedness, dizziness, or experiencing any numbness/tingling/weakness in extremities. General: non toxic, no distress, appears at stated age Derm: warm, dry. Left lower extremity with cellulitis, open weeping wounds present. Head: atraumatic, normocephalic, symmetric Eyes: EOMI, no lid lag, anicteric sclera Mouth: no lip lesion, mucus membranes moist Cardiovascular: S1-S2 normal with regular rate and rhythm. No murmur, gallop, or rub noted. Cap refill less than 2 seconds. Lungs: Respirations even, regular, and unlabored on 2 L O2 via nasal cannula. Lungs were diminished at bilateral bases and patient has diffuse expiratory wheezes bilaterally with a dry nonproductive cough noted throughout assessment. Abdominal: Obese abdomen, taught distended with large umbilical hernia. Nontender to palpation with no guarding. Ext: No gross muscle atrophy, no contractures, left lower extremity cellulitis consisting of open weeping wounds. Right lower extremity 3+ pitting edema accompanied by venous discoloration. Patient wheelchair bound/bedridden. Neuro: Patient alert and oriented at time of assessment. Speech clear. No focal neuro deficits noted at this time. However patient has history of sundowner's and significant confusion at night. Psych: Alert, oriented, appropriate affect Assessment and Plan of care: Chest pain with elevated troponins -Troponin 0.053 and 0.059 -EKG sinus tachycardia at 103 bpm with no noted T-wave or ST abnormalities showi ng no signs of acute ischemia. -Chest x-ray positive for CHF -Continue heparin per ACS protocol -Continuous telemetry monitoring. -Cardiology consultation. -Continue aspirin, atorvastatin, and clonidine. -Echocardiogram Acute exacerbation of Chronic diastolic heart failure -ProBNP 6630 -Chest x-ray showing fluid overload positive for CHF -Echocardiogram 2014 revealed a preserved EF 55%. -Echocardiogram to be completed. -Lasix 60 mg IVP every 12 hours. -Close monitoring of I's and O's. -Close monitoring of renal function and electrolyte values throughout diuresis. -Cardiology following, appreciate further recommendations. Elevated d-dimer -D-dimer 2.28. -Order placed for VQ scan Back pain -Patient reports being dropped from [facility] at [facility] approx imately 5 days ago and states he has since had back pain wrapping around into his chest. -CT thoracic and lumbar spine without contrast to be completed. Chronic kidney disease stage IV -BUN 89, creatinine 2.90, and GFR of 21. Baseline creatinine is 2.8. -Caution with nephrotoxic medications and continue to monitor closely with repeat a.m. labs. Normocytic Normochromic Anemia of chronic disease secondary to stage IV CKD -Hemoglobin 7.8 with baseline hemoglobin of 9.0. -Will continue to monitor closely. Chronic cellulitis of left lower extremity -Consult to Wound Care -Uses calmoseptine cream and consuelo wrap with dressing changed daily. -Encourage elevation of 3+ pitting right lower extremity edema -Venous Doppler to be completed to rule out DVT Hypertension -Monitor vital signs and continue daily medication management with amlodipine, hydralazine and clonidine. Hyperlipidemia -Continue daily medication management with atorvastatin nightly. CODE STATUS: Full code DVT prophylaxis: Heparin Discussed with: Patient, RN, and patient's Lisa Anticipated discharge date: Clinical course to be determined Anticipated discharge place: Back to [facility] A total of 45 minutes was spent on the care of this complex patient more than 50% of the time was spent in counseling and care coordination. Objective - Vital Signs Vital signs: Vital Signs Temp 97.7 F 11/07/20 08:00 Pulse 74 11/07/20 08:00 Resp 16 11/07/20 08:00 BP 166/67 11/07/20 08:00 Pulse Ox 95 11/07/20 08:00 Intake & Output 11/06/20 11/07/20 11/07/20 18:59 06:59 18:59 Intake Total 74.729 Balance 74.729 Weight 150.5 kg Intake: Intake, IV Titration 74.729 Amount Heparin Sod,Pork in 0.45% 74.729 NaCl 25,000 unit In 0.45 % NaCl 1 250ml.bag @ 6.88 UNITS/KG/HR 9.986 mls/hr IV .Q24H [facility] Rx#: [id number] Other: Voiding Method Diaper # Voids 0 - Labs CBC & Chem 7: 11/07/20 03:53 11/07/20 03:53 Labs: Abnormal Lab Results - Last 24 Hours (Table) 11/06/20 11/06/20 11/06/20 Range/Units 19:14 19:14 19:14 WBC 12.5 H (3.8-10.6) k/uL RBC 2.90 L (4.30-5.90) m/uL Hgb 8.5 L (13.0-17.5) gm/dL Hct 25.8 L (39.0-53.0) % RDW 16.9 H (11.5-15.5) % Neutrophils # 10.4 H (1.3-7.7) k/uL Lymphocytes # 0.9 L (1.0-4.8) k/uL D-Dimer 2.28 H (<0.60) mg/L FEU Chloride 111 H (98-107) mmol/L Carbon Dioxide 17 L (22-30) mmol/L BUN 87 H (9-20) mg/dL Creatinine 2.93 H (0.66-1.25) mg/dL Glucose 208 H (74-99) mg/dL POC Glucose (mg/dL) (75-99) mg/dL Magnesium 1.5 L (1.6-2.3) mg/dL Alkaline Phosphatase 138 H (38-126) U/L Troponin I (0.000-0.034) ng/mL Total Protein (6.3-8.2) g/dL Albumin 3.3 L (3.5-5.0) g/dL HDL Cholesterol (40-60) mg/dL 11/06/20 11/06/20 11/07/20 Range/Units 19:14 22:00 01:08 WBC (3.8-10.6) k/uL RBC (4.30-5.90) m/uL Hgb (13.0-17.5) gm/dL Hct (39.0-53.0) % RDW (11.5-15.5) % Neutrophils # (1.3-7.7) k/uL Lymphocytes # (1.0-4.8) k/uL D-Dimer (<0.60) mg/L FEU Chloride (98-107) mmol/L Carbon Dioxide (22-30) mmol/L BUN (9-20) mg/dL Creatinine (0.66-1.25) mg/dL Glucose (74-99) mg/dL POC Glucose (mg/dL) (75-99) mg/dL Magnesium (1.6-2.3) mg/dL Alkaline Phosphatase (38-126) U/L Troponin I 0.043 H* 0.053 H* 0.059 H* (0.000-0.034) ng/mL Total Protein (6.3-8.2) g/dL Albumin (3.5-5.0) g/dL HDL Cholesterol (40-60) mg/dL 11/07/20 11/07/20 11/07/20 Range/Units 03:53 03:53 06:00 WBC (3.8-10.6) k/uL RBC 2.63 L (4.30-5.90) m/uL Hgb 7.8 L (13.0-17.5) gm/dL Hct 23.7 L (39.0-53.0) % RDW 16.8 H (11.5-15.5) % Neutrophils # 8.3 H (1.3-7.7) k/uL Lymphocytes # 0.8 L (1.0-4.8) k/uL D-Dimer (<0.60) mg/L FEU Chloride 112 H (98-107) mmol/L Carbon Dioxide 18 L (22-30) mmol/L BUN 89 H (9-20) mg/dL Creatinine 2.90 H (0.66-1.25) mg/dL Glucose 195 H (74-99) mg/dL POC Glucose (mg/dL) 179 H (75-99) mg/dL Magnesium (1.6-2.3) mg/dL Alkaline Phosphatase 129 H (38-126) U/L Troponin I (0.000-0.034) ng/mL Total Protein 6.0 L (6.3-8.2) g/dL Albumin 3.1 L (3.5-5.0) g/dL HDL Cholesterol 27 L (40-60) mg/dL <Heather Mejia - Last Filed: 11/07/20 18:18> Subjective Patient seen and examined independently. Patient was also seen by Lorne Buckley NP and case was discussed. I am in agreement with subjective, physical exam, assessment and plan as written above and amended below. Patient seen and examined at bedside. Back pain between his shoulder blades. No shortness of breath, pain dues wrap around to his chest. General: non toxic, no distress, appears at stated age Derm: warm, dry Head: atraumatic, normocephalic, symmetric Eyes: EOMI, no lid lag, anicteric sclera Mouth: no lip lesion, mucus membranes moist CV: S1S2 reg, Lungs: Decreased bs b/l, no accessory muscle use, no conversational dyspnea Ext: R LE edema, no contractures Psych: Alert, oriented, appropriate affect Additional Diagnosis DM 2 - resume long acting, fixed dose and sliding scale - follow bs Metabolic acidosis due to CKD - resume Bicarb and recheck labs in AM Objective - Vital Signs Vital signs: Vital Signs Temp 97.7 F 11/07/20 08:00 Pulse 78 11/07/20 16:56 Resp 20 11/07/20 16:00 BP 153/73 11/07/20 16:00 Pulse Ox 96 11/07/20 16:00 Intake & Output 11/06/20 11/07/20 11/07/20 18:59 06:59 18:59 Intake Total 74.729 129.308 Output Total 1 Balance 74.729 128.308 Weight 150.5 kg Intake: Intake, IV Titration 74.729 129.308 Amount Heparin Sod,Pork in 0.45% 74.729 129.308 NaCl 25,000 unit In 0.45 % NaCl 1 250ml.bag @ 6.88 UNITS/KG/HR 9.986 mls/hr IV .Q24H [facility] Rx#: [id number] Output: Urine/Stool Mix 1 Other: Voiding Method Diaper Diaper # Voids 0 - Labs CBC & Chem 7: 11/07/20 03:53 11/07/20 03:53 Labs: Abnormal Lab Results - Last 24 Hours (Table) 11/06/20 11/06/20 11/06/20 Range/Units 19:14 19:14 19:14 WBC 12.5 H (3.8-10.6) k/uL RBC 2.90 L (4.30-5.90) m/uL Hgb 8.5 L (13.0-17.5) gm/dL Hct 25.8 L (39.0-53.0) % RDW 16.9 H (11.5-15.5) % Neutrophils # 10.4 H (1.3-7.7) k/uL Lymphocytes # 0.9 L (1.0-4.8) k/uL APTT (22.0-30.0) sec D-Dimer 2.28 H (<0.60) mg/L FEU Chloride 111 H (98-107) mmol/L Carbon Dioxide 17 L (22-30) mmol/L BUN 87 H (9-20) mg/dL Creatinine 2.93 H (0.66-1.25) mg/dL Glucose 208 H (74-99) mg/dL POC Glucose (mg/dL) (75-99) mg/dL Magnesium 1.5 L (1.6-2.3) mg/dL Alkaline Phosphatase 138 H (38-126) U/L Troponin I (0.000-0.034) ng/mL Total Protein (6.3-8.2) g/dL Albumin 3.3 L (3.5-5.0) g/dL HDL Cholesterol (40-60) mg/dL 11/06/20 11/06/20 11/07/20 Range/Units 19:14 22:00 01:08 WBC (3.8-10.6) k/uL RBC (4.30-5.90) m/uL Hgb (13.0-17.5) gm/dL Hct (39.0-53.0) % RDW (11.5-15.5) % Neutrophils # (1.3-7.7) k/uL Lymphocytes # (1.0-4.8) k/uL APTT (22.0-30.0) sec D-Dimer (<0.60) mg/L FEU Chloride (98-107) mmol/L Carbon Dioxide (22-30) mmol/L BUN (9-20) mg/dL Creatinine (0.66-1.25) mg/dL Glucose (74-99) mg/dL POC Glucose (mg/dL) (75-99) mg/dL Magnesium (1.6-2.3) mg/dL Alkaline Phosphatase (38-126) U/L Troponin I 0.043 H* 0.053 H* 0.059 H* (0.000-0.034) ng/mL Total Protein (6.3-8.2) g/dL Albumin (3.5-5.0) g/dL HDL Cholesterol (40-60) mg/dL 11/07/20 11/07/20 11/07/20 Range/Units 03:53 03:53 06:00 WBC (3.8-10.6) k/uL RBC 2.63 L (4.30-5.90) m/uL Hgb 7.8 L (13.0-17.5) gm/dL Hct 23.7 L (39.0-53.0) % RDW 16.8 H (11.5-15.5) % Neutrophils # 8.3 H (1.3-7.7) k/uL Lymphocytes # 0.8 L (1.0-4.8) k/uL APTT (22.0-30.0) sec D-Dimer (<0.60) mg/L FEU Chloride 112 H (98-107) mmol/L Carbon Dioxide 18 L (22-30) mmol/L BUN 89 H (9-20) mg/dL Creatinine 2.90 H (0.66-1.25) mg/dL Glucose 195 H (74-99) mg/dL POC Glucose (mg/dL) 179 H (75-99) mg/dL Magnesium (1.6-2.3) mg/dL Alkaline Phosphatase 129 H (38-126) U/L Troponin I (0.000-0.034) ng/mL Total Protein 6.0 L (6.3-8.2) g/dL Albumin 3.1 L (3.5-5.0) g/dL HDL Cholesterol 27 L (40-60) mg/dL 11/07/20 11/07/20 Range/Units 11:20 16:42 WBC (3.8-10.6) k/uL RBC (4.30-5.90) m/uL Hgb (13.0-17.5) gm/dL Hct (39.0-53.0) % RDW (11.5-15.5) % Neutrophils # (1.3-7.7) k/uL Lymphocytes # (1.0-4.8) k/uL APTT 32.0 H (22.0-30.0) sec D-Dimer (<0.60) mg/L FEU Chloride (98-107) mmol/L Carbon Dioxide (22-30) mmol/L BUN (9-20) mg/dL Creatinine (0.66-1.25) mg/dL Glucose (74-99) mg/dL POC Glucose (mg/dL) 132 H (75-99) mg/dL Magnesium (1.6-2.3) mg/dL Alkaline Phosphatase (38-126) U/L Troponin I (0.000-0.034) ng/mL Total Protein (6.3-8.2) g/dL Albumin (3.5-5.0) g/dL HDL Cholesterol (40-60) mg/dL
--- NOTE | 2020-11-07 16:14 | CONS ---
CONSULTATION REASON FOR CONSULT: Renal failure. HISTORY OF PRESENT ILLNESS: The patient is a 70-year-old male with history of chronic kidney disease, NKF stage IV, baseline creatinine about 2.9 to 3 mg/dL, secondary to nephrosclerosis. He was admitted to the hospital with worsening lower extremity edema and shortness of breath. Serum creatinine is at its baseline of about 2.9 mg/dL. Patient's blood pressure systolic has been around 160 to 180 mmHg. He has been started on IV Lasix, currently at 40 mg q.12 hours. Patient was maintained on 40 mg daily as outpatient on the furosemide prior to admission. He denies any fever, chills, abdominal pain or diarrhea. Troponin is borderline at 0.059. PAST MEDICAL HISTORY: CKD stage IV to V, COPD, type 2 diabetes, hyperlipidemia, hypertension, CHF, osteoarthritis, obstructive sleep apnea, history of neuropathy, chronic venous ulcers, lower extremities, mostly left leg, umbilical hernia, history of UTI, ESBL and VRE on the leg as well. PAST SURGICAL HISTORY: Appendectomy, cholecystectomy, cardiac catheterization, coronary stent placement, cataract surgery, testicular surgery, PICC line insertion and removal. SOCIAL HISTORY: Negative for smoking, drug abuse or alcohol abuse. MEDICATIONS: Medications prior to admission included clonidine, vitamin D3, Zyloprim, sodium bicarb, Protonix, magnesium, Lasix, Lipitor, Imodium, Neurontin, hydralazine, iron, calcitriol, aspirin, amlodipine. PHYSICAL EXAMINATION: Patient is currently comfortable, awake. He is not in any acute distress. Blood pressure 166/67, heart rate 74 per minute. He is afebrile. EXAMINATION OF THE HEART: S1 and S2. EXAMINATION OF LUNGS: Bilateral breath sounds are heard. Decreased breath sounds at bases. ABDOMEN: Soft, obese, non-tender. Examination of lower extremities shows edema 3+ bilaterally. Chronic skin changes noted. LABS: Sodium 141, potassium 3.7, chloride 112. CO2 is 18, BUN 89, creatinine 2.9. Hemoglobin 7.8 g/dL. COVID PCR negative. ASSESSMENT: 1. Chronic kidney disease, NKF stage IV, secondary to nephrosclerosis and diabetic kidney disease, baseline creatinine about 2.9 to 3 mg/dL. Renal function is at baseline. 2. Volume overload. Currently being diuresed. I will increase the Lasix to 60 mg q.12 hours. 3. Anemia. No active bleeding noted. Rule out iron deficiency and add Procrit/Aranesp for anemia of chronic disease. 4. Metabolic acidosis associated with renal failure. Expect improvement with ongoing diuresis. 5. Obesity. PLAN: Increase Lasix to 60 mg q.12 hours. Repeat labs in a.m. Check urinalysis. MMODL / IJN: [id number] /
[2020-11-07] MEDS: IPRATROPIUM-ALBUTEROL 3 ML NEB INHALATION SCH ×2 (16:43→20:27)
[2020-11-07] MEDS: FERROUS SULFATE 325 MG TAB PO SCH (16:51)
[2020-11-07] MEDS: GABAPENTIN 300 MG CAP PO SCH (16:52)
[2020-11-07] MEDS: SODIUM BICARBONATE TAB 650 MG TAB PO SCH ×2 (16:52→21:14)
[2020-11-07] MEDS: CHOLECALCIFEROL 25 MCG (1000 IU) TABLET PO SCH (16:53)
[2020-11-07 16:58] LABS: Glucose,Whole Blood 132 mg/dL (75-99)
[2020-11-07] MEDS ORDERED: ASPIRIN 81 MG PO SCH (17:00)
[2020-11-07 20:28] LABS: Glucose,Whole Blood 183 mg/dL (75-99)
[2020-11-07] MEDS ORDERED: amLODIPine 2.5 MG TAB PO SCH (21:00)
[2020-11-07] MEDS ORDERED: INSULIN DETEMIR (LEVEMIR) 100 UNIT/ML SYR SQ SCH (21:00)
[2020-11-07] MEDS: ATORVASTATIN 20 MG TAB PO SCH (21:14)
[2020-11-07] MEDS: FUROSEMIDE 10 MG/ML 10 ML VIAL IV SCH (21:14)
[2020-11-07] MEDS: hydrALAZINE HCL 50 MG TAB PO SCH (21:14)
--- NOTE | 2020-11-07 21:59 | CT ---
EXAMINATION TYPE: CT thor lumbar spine wo con DATE OF EXAM: 11/07/2020 COMPARISON: CT abdomen pelvis 11/29/2019 HISTORY: Pain between shoulder blades CT DLP: 4677.7 mGycm Automated exposure control for dose reduction was used. Images obtained from the level of T1 to the bottom of the sacrum without contrast. The thoracic and lumbar vertebra have fairly normal alignment. There is a 5 mm L5-S1 spondylolisthesi s with L5 spondylolysis. There is no significant compression deformity. There is extensive hypertroph ic osteophyte formation anteriorly throughout the thoracic and lumbar spine. I see no focal bone dest ruction. There is multilevel lumbar and thoracic hypertrophic facet arthropathy. There is no thoracic paraspinal mass. There are bilateral pleural effusions and basilar pulmonary inf iltrates and atelectasis. There is no lumbar paraspinal mass. The sacroiliac joints are intact. Sacra l segments have normal alignment. There is no thoracic paraspinal mass. IMPRESSION: Multilevel thoracic and lumbar spondylotic changes similar to old CT scan. No compression fracture. S table L5-S1 spondylolisthesis. No focal bone destruction. There is also noted moderate anterior osteo phyte formation in the cervical spine as well.
[2020-11-07] MEDS: HEPARIN SODIUM,PORCINE/PF 5,000 UNIT/0.5 ML SYRINGE SQ SCH (23:34)
[2020-11-08] MEDS: IPRATROPIUM-ALBUTEROL 3 ML NEB INHALATION SCH ×4 (01:37→20:08)
[2020-11-08 06:26] LABS: Glucose,Whole Blood 114 mg/dL (75-99)
[2020-11-08] MEDS: hydrALAZINE HCL 50 MG TAB PO SCH ×3 (06:58→20:45)
[2020-11-08] MEDS: INSULIN ASPART (NovoLOG) 100 UNIT/ML VIAL SQ SCH ×6 (06:59→20:45)
[2020-11-08] MEDS: NITROGLYCERIN OINT 1 INCH/GM PACKET TOPICAL SCH ×4 (07:00→23:18)
[2020-11-08 07:59] LABS: Anisocytosis Slight; HCT 27.2 % (39.0-53.0); HGB 8.8 gm/dL (13.0-17.5); Hypochromasia Slight; MCH 28.7 pg (25.0-35.0); MCHC 32.1 g/dL (31.0-37.0); MCV 89.3 fL (80.0-100.0); Mean Platelet Volume 6.9; Platelet Count 344 k/uL (150-450); RBC 3.05 m/uL (4.30-5.90); WBC 13.9 k/uL (3.8-10.6)
[2020-11-08] MEDS: cloNIDine HCL 0.1 MG TAB PO SCH ×3 (08:22→16:46)
[2020-11-08] MEDS: SODIUM BICARBONATE TAB 650 MG TAB PO SCH ×4 (08:22→23:18)
[2020-11-08] MEDS: FLUTICASONE 50MCG/SPRAY NASAL 16GM EA NOSTRIL SCH (08:22)
[2020-11-08] MEDS: HEPARIN SODIUM,PORCINE/PF 5,000 UNIT/0.5 ML SYRINGE SQ SCH ×3 (08:22→23:18)
[2020-11-08] MEDS: allopurinoL 100 MG TAB PO SCH (08:22)
[2020-11-08] MEDS: GABAPENTIN 300 MG CAP PO SCH ×2 (08:22→16:46)
[2020-11-08] MEDS: ASPIRIN 81 MG PO SCH (08:22)
[2020-11-08] MEDS: amLODIPine 5 MG TAB PO SCH (08:22)
[2020-11-08 08:23] LABS: Calcium 9.7 mg/dL (8.4-10.2); Magnesium 1.8 mg/dL (1.6-2.3); Potassium 3.7 mmol/L (3.5-5.1)
[2020-11-08] MEDS: FUROSEMIDE 10 MG/ML 10 ML VIAL IV SCH ×2 (08:23→20:45)
--- NOTE | 2020-11-08 08:42 | XR ---
EXAMINATION TYPE: XR chest 1V portable DATE OF EXAM: 11/08/2020 CLINICAL HISTORY: Difficulty breathing progress study. TECHNIQUE: Single AP portable upright view of the chest is obtained. COMPARISON: Chest x-ray from 2 days earlier and older studies FINDINGS: Persistent multifocal and confluent opacities bilaterally and cardiomegaly. Small bilatera l pleural effusions seen better on old chest x-ray lateral view. High riding left humeral head consis tent with chronic rotator cuff tear. Persistent low lung volumes. IMPRESSION: Correlate for CHF exacerbation and there is cardiomegaly with mild to moderate alveolar a nd interstitial edema suspected. Areas of underlying multifocal bilateral acute infiltrate not exclud ed. Correlate clinically. No significant change from prior.
[2020-11-08 11:35] LABS: Glucose,Whole Blood 63 mg/dL (75-99)
[2020-11-08 12:02] LABS: Glucose,Whole Blood 86 mg/dL (75-99)
[2020-11-08 12:02] LABS: Glucose,Whole Blood 68 mg/dL (75-99)
--- NOTE | 2020-11-08 12:50 | P.PN ---
Subjective HISTORY OF PRESENTING ILLNESS This is a pleasant 70-year-old male past medical history significant for coronary artery disease status post stenting to LAD in 2016, heart failure with preserved ejection fraction, COPD, obstructive sleep apnea, type 2 diabetes, hypertension, dyslipidemia, chronic kidney disease.. He follows in the office with Dr. Yarbrough. We have been asked to see in consultation for chest pain, elevated troponin. Patient presents from [facility]. Patient states that he started having chest pain across his anterior chest pain, band-like. Describes as a pressure. It is non-radiating. He also has chronic back pain. Endorses associated shortness of breath. He also states he's had worsening lower extremity edema. Taking a deep breath and some movement in bed worsens the pain. Chest pain lasts for about 30 minutes time. Patient does have symptoms of orthopnea and PND he states he's been sleeping in a recliner since he was abnormal. He is bedbound. He states a few days ago he was being lifted with the [facility] at [facility], he states that they did drop him. He was told this information doesn't recall this incident occurring. EKG reveals sinus tachycardia, heart rate 103, no significant STT wave abnormalities. D-dimer elevated, troponin to 8 0.04-->0.052. COVID-19 negative Echocardiogram revealed EF 55-60%, increased grade 2 diastolic dysfunction, RV is severely enlarged, LA severely dilated, right atrium is moderately enlarged, moderate mitral regurgitation, moderate to severe tricuspid regurgitation, moderate severe pulmonary hypertension with an RVSP of 51.3 mmHg Dopplers of lower extremities were negative for DVT VQ scan low probability for PE Last Cardiac Catheterization 10/2015 with successful stenting of the proximal LAD Chest xray moderate interstitial edema congestive heart failure with superimposed infiltrates on excluded 11/08/2020: Patient seen and examined at bedside, no acute distress. Patient is incontinent, no accurate output. Maria has been placed. Patient is currently being maintained on aspirin 81 mg daily, amlodipine 5 mg BID , atorvastatin 20 mg nightly,IV Lasix 60 mg twice a day, hydralazine 100 mg 3 times a day. patient's blood pressure continues to be elevated, SBP 150s-170sTelemetry tracings indicate sinus mechanism heart rate 60 to 90s Laboratory reviewed, WBC 13.9, hemoglobin 8.8, sodium 144, potassium 3.7, serum creatinine 2.72 (2.9 yesterday), BUN 87, triglycerides 66, cholesterol 86, LDL 35, HDL 38, PHYSICAL EXAMINATION Blood pressure 155/72 heart rate 90 afebrile and maintaining oxygen saturation 93% on 2 L nasal cannula CONSTITUTIONAL: No apparent distress. HEENT: Neck supple No JVD. No carotid bruit. CHEST EXAMINATION: Lungs are diminished to auscultation. HEART EXAMINATION: Regular rate and rhythm. S1, S2 heard. systolic murmur, No gallops or rub. ABDOMEN: Soft, nontender. Positive bowel sounds. EXTREMITIES: 2+ peripheral pulses, 2+ bilateral edema Right > Left, some mild calf tenderness SKIN: Bilateral lower extremities wrapped in LEILA bandage NEUROLOGIC EXAMINATION: Patient is awake, alert and oriented x3. ASSESSMENT Elevated troponin, is not indicative of a myocardial infarction Coronary artery disease status post stent to LAD in 2016 Acute on chronic diastolic heart failure with preserved ejection fraction 55-60% COPD Obstructive sleep apnea Type 2 diabetes History of hypertension Dyslipidemia Chronic kidney disease PLAN Nephrology is following and managing patients diuretics, appreciate recommendations We will increase amlodipine to 10mg in the morning and 5mg at night Continue statin, aspirin, hydralazine. In regards to the elevated troponin, no indication for acute coronary syndrome. We can perform a stress test as an outpatient to assess for stress induced c ardiac ischemia, no need to be done while inpatient at this time We will follow the patient as needed, please reach out with any further questions or concerns. Follow up with Dr. Yarbrough as an outpatient Thank you kindly for this consultation. Nurse Practitioner note has been reviewed, I agree with a documented findings and plan of care. Patient was seen and examined. Objective - Vital Signs Vital signs: Vital Signs Temp 98.0 F 11/08/20 04:00 Pulse 86 11/08/20 08:23 Resp 20 11/08/20 07:33 BP 179/78 11/08/20 07:33 Pulse Ox 92 L 11/08/20 07:33 Intake & Output 11/07/20 11/08/20 11/08/20 18:59 06:59 18:59 Intake Total 487.308 Output Total 1 Balance 486.308 Weight 147 kg Intake: Intake, IV Titration 129.308 Amount Heparin Sod,Pork in 0.45% 129.308 NaCl 25,000 unit In 0.45 % NaCl 1 250ml.bag @ 6.88 UNITS/KG/HR 9.986 mls/hr IV .Q24H [facility] Rx#: [id number] Oral 358 Output: Urine/Stool Mix 1 Other: Voiding Method Diaper Diaper Diaper # Voids 1 - Labs CBC & Chem 7: 11/08/20 07:33 11/08/20 07:33 Labs: Abnormal Lab Results - Last 24 Hours (Table) 11/07/20 11/07/20 11/07/20 Range/Units 11:20 16:42 20:26 WBC (3.8-10.6) k/uL RBC (4.30-5.90) m/uL Hgb (13.0-17.5) gm/dL Hct (39.0-53.0) % RDW (11.5-15.5) % APTT 32.0 H (22.0-30.0) sec Chloride (98-107) mmol/L Carbon Dioxide (22-30) mmol/L BUN (9-20) mg/dL Creatinine (0.66-1.25) mg/dL Glucose (74-99) mg/dL POC Glucose (mg/dL) 132 H 183 H (75-99) mg/dL HDL Cholesterol (40-60) mg/dL 11/08/20 11/08/20 11/08/20 Range/Units 05:50 07:33 07:33 WBC 13.9 H (3.8-10.6) k/uL RBC 3.05 L (4.30-5.90) m/uL Hgb 8.8 L (13.0-17.5) gm/dL Hct 27.2 L (39.0-53.0) % RDW 17.0 H (11.5-15.5) % APTT (22.0-30.0) sec Chloride 113 H (98-107) mmol/L Carbon Dioxide 20 L (22-30) mmol/L BUN 87 H (9-20) mg/dL Creatinine 2.72 H (0.66-1.25) mg/dL Glucose 57 L (74-99) mg/dL POC Glucose (mg/dL) 114 H (75-99) mg/dL HDL Cholesterol 38 L (40-60) mg/dL Microbiology - Last 24 Hours (Table) 11/06/20 19:36 Blood Culture - Preliminary Blood No Growth after 24 hours
--- NOTE | 2020-11-08 13:39 | PN ---
PROGRESS NOTE Patient is seen for followup for chronic kidney disease. The patient was admitted to the hospital with volume overload. His renal function is fairly stable with serum creatinine close to baseline of about 2.4-2.9 mg/dL. Currently maintained on Lasix 60 mg q.12 hours. The patient has been voiding, 24-hour urine output not accurately charted. Overall, he states he is feeling better. His legs are currently wrapped. PHYSICAL EXAMINATION: Blood pressure was 179/78, heart rate 84 per minute. He is afebrile. EXAMINATION OF THE HEART: S1, S2. EXAMINATION OF THE LUNGS: Decreased breath sounds at bases. Abdomen is soft, morbidly obese. Examination of lower extremities shows bilateral extremities to be wrapped. [employer] exam grossly intact. LABS: Labs show sodium 144, potassium 3.7, chloride 113, CO2 is 20, BUN 87, creatinine 2.7, hemoglobin 8.8 g/dL. ASSESSMENT: 1. Chronic kidney disease NKF stage 4, renal function fairly stable, etiology nephrosclerosis. 2. Volume overload currently being diuresed. We will continue with current dose of Lasix. The patient is requesting a Maria catheter temporarily. 3. Anemia of chronic disease, started on Aranesp, iron profile was ordered, iron saturation is low at 7.26%. The patient will be started on IV iron. PLAN: Continue with IV Lasix at current dose. Start IV iron and consider placement. However, the patient's weight has decreased. Therefore, he is probably diuresing fairly okay. I will repeat labs in a.m. and continue with the Aranesp and start IV iron today. MMODL / IJN: [id number] /
[2020-11-08 14:03] VITALS: BMI 46.5
[2020-11-08] MEDS: SODIUM FERRIC GLUCONAT-SUCROSE 125 MG in SODIUM CHLORIDE 0.9% 100 ML IVPB SCH (14:37)
[2020-11-08 16:08] LABS: % Iron Saturation 11.27 (15.00-50.00)
--- NOTE | 2020-11-08 16:13 | P.PN ---
<Lorne Buckley - Last Filed: 11/08/20 15:53> Subjective Progress Note Date: 11/08/20 Hospital course: Patient is a 70-year-old male who resides at [facility], [place] secondary to wheelchair/bed bound status along with a past medical history significant for CAD with previous stent placement, chronic diastolic congestive heart failure, CKD stage IV, hypertension, hyperlipidemia, chronic anemia, chronic left lower extremity cellulitis and history of ESBL and VRE infections. Patient presented to the hospital on 11/06/20 with a chief complaint of chest pain. He was fully evaluated in the emergency department and found to have an elevated troponin of 0.053 and 0.059 as well as an elevated proBNP of 6630. Chest x-ray significant for CHF. He was started on heparin infusion per ACS protocol for NSTEMI. His EKG was completed revealing sinus tachycardia at 103 bpm with no noted T-wave or ST abnormalities and no changes from previous EKG with the exception of rate. Patient was admitted to our services for elevated troponins and acute exacerbation of chronic diastolic heart failure. Cardiology following. Physical exam: Patient seen and fully evaluated at bedside this morning. He reports continued back pain wrapping around into chest. CT thoracic and lumbar spine positive for moderate spondylolisthesis and extensive osteophyte formation, no acute fractures. Order placed for lidocaine patches. Patient also reports continued cough and shortness of breath. Repeat chest x-ray significant for CHF exacerbation with cardiomegaly and mild to moderate alveolar and interstitial edema. We will continue with Lasix 60 mg IVP every [address] Maria catheter to ensure close monitoring of urinary output. Patient denies having any headache, lightheadedness, dizziness, or experiencing any numbness/tingling/weakness in extremities. General: non toxic, no distress, appears at stated age Derm: warm, dry. Left lower extremity with cellulitis, open weeping wounds present. Head: atraumatic, normocephalic, symmetric Eyes: EOMI, no lid lag, anicteric sclera Mouth: no lip lesion, mucus membranes moist Cardiovascular: S1-S2 normal with regular rate and rhythm. No murmur, gallop, or rub noted. Cap refill less than 2 seconds. Lungs: Respirations even, regular, and unlabored on 2 L O2 via nasal cannula. Lungs were diminished at bilateral bases and patient has diffuse expiratory wheezes bilaterally with a dry nonproductive cough noted throughout assessment. Abdominal: Obese abdomen, taught distended with large umbilical hernia. Nontender to palpation with no guarding. Ext: No gross muscle atrophy, no contractures, left lower extremity cellulitis consisting of open weeping wounds. Right lower extremity 3+ pitting edema accompanied by venous discoloration. Patient wheelchair bound/bedridden. Neuro: Patient alert and oriented at time of assessment. Speech clear. No focal neuro deficits noted at this time. However patient has history of sundowner's and significant confusion at night. Psych: Alert, oriented, appropriate affect Assessment and Plan of care: Chest pain with elevated troponins, acute coronary event ruled out elevated troponins secondary to CHF exacerbation -Troponin 0.053 and 0.059 -EKG sinus tachycardia at 103 bpm with no noted T-wave or ST abnormalities showing no signs of acute ischemia. -Chest x-ray positive for CHF -Continue subcutaneous heparin for DVT prophylaxis -Continuous telemetry monitoring. -Cardiology following. -Continue aspirin, atorvastatin, and clonidine. -Echocardiogram revealing a normal ejection fraction of 55-60% with moderate mitral and tricuspid valve regurgitation and moderate to severe pulmonary hypertension. Acute exacerbation of Chronic diastolic heart failure -ProBNP 6630 -Chest x-ray showing fluid overload positive for CHF -Echocardiogram revealing a normal ejection fraction of 55-60% with moderate mitral and tricuspid valve regurgitation and moderate to severe pulmonary hypertension. -Continue Lasix 60 mg IVP every 12 hours. -Maria catheter placed to enable close monitoring of I's and O's. -Close monitoring of renal function and electrolyte values throughout diuresis. -Cardiology following, appreciate further recommendations. Type 2 insulin-dependent diabetes mellitus with episode of hypoglycemia -Discontinued scheduled NovoLog with meals and decreased Levemir to 20 units nightly. Patient to continue with glycemic protocol and NovoLog sliding scale. Elevated d-dimer -D-dimer 2.28. -VQ scan negative for PE Back pain -Patient reports being dropped from [facility] at [facility] [place] approximately 5 days ago and states he has since had back pain wrapping around into his chest. -CT thoracic and lumbar spine positive for moderate spondylolisthesis and extensive osteophyte formation, no acute fractures. -Supportive measures and symptomatic care. Order placed for lidocaine patches. Chronic kidney disease stage IV -BUN 87, creatinine 2.72, and GFR of 23. Baseline creatinine is 2.8. -Caution with nephrotoxic medications and continue to monitor closely with repeat a.m. labs. Normocytic Normochromic Anemia of chronic disease secondary to stage IV CKD -Hemoglobin 8.8 with baseline hemoglobin of 9.0. -Will continue to monitor closely. Chronic cellulitis of left lower extremity -Consult to Wound Care -Uses calmoseptine cream and pastor wrap with dressing changed daily. -Encourage elevation of bilateral lower extremities Peripheral vascular deficiency with 3+ pitting right lower extremity edema -Venous Doppler to be completed negative for DVT. -Pastor Wraps to legs to reduce swelling and encourage elevation of bilateral lower extremities. Hypertension -Monitor vital signs and continue daily medication management with amlodipine, hydralazine and clonidine. Hyperlipidemia -Continue daily medication management with atorvastatin nightly. CODE STATUS: Full code DVT prophylaxis: Heparin Discussed with: Patient, RN, and patient's Lisa Anticipated discharge date: Clinical course to be determined Anticipated discharge place: Back to [facility] [place] A total of 45 minutes was spent on the care of this complex patient more than 50% of the time was spent in counseling and care coordination. Objective - Vital Signs Vital signs: Vital Signs Temp 98.0 F 11/08/20 04:00 Pulse 86 11/08/20 08:23 Resp 20 11/08/20 07:33 BP 179/78 11/08/20 07:33 Pulse Ox 92 L 11/08/20 07:33 Intake & Output 11/07/20 11/08/20 11/08/20 18:59 06:59 18:59 Intake Total 487.308 Output Total 1 Balance 486.308 Weight 147 kg Intake: Intake, IV Titration 129.308 Amount Heparin Sod,Pork in 0.45% 129.308 NaCl 25,000 unit In 0.45 % NaCl 1 250ml.bag @ 6.88 UNITS/KG/HR 9.986 mls/hr IV .Q24H BONNY Rx#: [id number] Oral 358 Output: Urine/Stool Mix 1 Other: Voiding Method Diaper Diaper Diaper # Voids 1 - Labs CBC & Chem 7: 11/08/20 07:33 11/08/20 07:33 Labs: Abnormal Lab Results - Last 24 Hours (Table) 11/07/20 11/07/20 11/07/20 Range/Units 11:20 16:42 20:26 WBC (3.8-10.6) k/uL RBC (4.30-5.90) m/uL Hgb (13.0-17.5) gm/dL Hct (39.0-53.0) % RDW (11.5-15.5) % APTT 32.0 H (22.0-30.0) sec Chloride (98-107) mmol/L Carbon Dioxide (22-30) mmol/L BUN (9-20) mg/dL Creatinine (0.66-1.25) mg/dL Glucose (74-99) mg/dL POC Glucose (mg/dL) 132 H 183 H (75-99) mg/dL HDL Cholesterol (40-60) mg/dL 11/08/20 11/08/20 11/08/20 Range/Units 05:50 07:33 07:33 WBC 13.9 H (3.8-10.6) k/uL RBC 3.05 L (4.30-5.90) m/uL Hgb 8.8 L (13.0-17.5) gm/dL Hct 27.2 L (39.0-53.0) % RDW 17.0 H (11.5-15.5) % APTT (22.0-30.0) sec Chloride 113 H (98-107) mmol/L Carbon Dioxide 20 L (22-30) mmol/L BUN 87 H (9-20) mg/dL Creatinine 2.72 H (0.66-1.25) mg/dL Glucose 57 L (74-99) mg/dL POC Glucose (mg/dL) 114 H (75-99) mg/dL HDL Cholesterol 38 L (40-60) mg/dL Microbiology - Last 24 Hours (Table) 11/06/20 19:36 Blood Culture - Preliminary Blood No Growth after 24 hours <Heather Mejia - Last Filed: 11/08/20 20:16> Subjective I discussed the care with Lorne Buckley NP and reviewed the findings and plan as documented in the note above. I did not physically speak with or examine the patient on this date. Objective - Vital Signs Vital signs: Vital Signs Temp 98.0 F 11/08/20 04:00 Pulse 86 11/08/20 20:09 Resp 20 11/08/20 14:38 BP 160/70 11/08/20 14:38 Pulse Ox 94 L 11/08/20 14:38 Intake & Output 11/08/20 11/08/20 11/09/20 06:59 18:59 06:59 Intake Total 365 Output Total 1700 Balance -1335 Weight 147 kg 147 kg Intake: Oral 365 Output: Urine 1700 Other: Voiding Method Diaper Indwelling Catheter # Voids 1 - Labs CBC & Chem 7: 11/08/20 07:33 11/08/20 07:33 Labs: Abnormal Lab Results - Last 24 Hours (Table) 11/07/20 11/07/20 11/08/20 Range/Units 03:53 20:26 05:50 WBC (3.8-10.6) k/uL RBC (4.30-5.90) m/uL Hgb (13.0-17.5) gm/dL Hct (39.0-53.0) % RDW (11.5-15.5) % Chloride (98-107) mmol/L Carbon Dioxide (22-30) mmol/L BUN (9-20) mg/dL Creatinine (0.66-1.25) mg/dL Glucose (74-99) mg/dL POC Glucose (mg/dL) 183 H 114 H (75-99) mg/dL Iron 24 L (65-175) ug/dL TIBC 213 L (228-460) ug/dL % Saturation 11.27 L (15.00-50.00) HDL Cholesterol (40-60) mg/dL 11/08/20 11/08/20 11/08/20 Range/Units 07:33 07:33 11:21 WBC 13.9 H (3.8-10.6) k/uL RBC 3.05 L (4.30-5.90) m/uL Hgb 8.8 L (13.0-17.5) gm/dL Hct 27.2 L (39.0-53.0) % RDW 17.0 H (11.5-15.5) % Chloride 113 H (98-107) mmol/L Carbon Dioxide 20 L (22-30) mmol/L BUN 87 H (9-20) mg/dL Creatinine 2.72 H (0.66-1.25) mg/dL Glucose 57 L (74-99) mg/dL POC Glucose (mg/dL) 63 L (75-99) mg/dL Iron (65-175) ug/dL TIBC (228-460) ug/dL % Saturation (15.00-50.00) HDL Cholesterol 38 L (40-60) mg/dL 11/08/20 11/08/20 Range/Units 11:38 16:46 WBC (3.8-10.6) k/uL RBC (4.30-5.90) m/uL Hgb (13.0-17.5) gm/dL Hct (39.0-53.0) % RDW (11.5-15.5) % Chloride (98-107) mmol/L Carbon Dioxide (22-30) mmol/L BUN (9-20) mg/dL Creatinine (0.66-1.25) mg/dL Glucose (74-99) mg/dL POC Glucose (mg/dL) 68 L 147 H (75-99) mg/dL Iron (65-175) ug/dL TIBC (228-460) ug/dL % Saturation (15.00-50.00) HDL Cholesterol (40-60) mg/dL Microbiology - Last 24 Hours (Table) 11/06/20 19:36 Blood Culture - Preliminary Blood No Growth after 24 hours
[2020-11-08] MEDS: FERROUS SULFATE 325 MG TAB PO SCH (16:46)
[2020-11-08] MEDS: CHOLECALCIFEROL 25 MCG (1000 IU) TABLET PO SCH (16:46)
[2020-11-08] MEDS: LIDOCAINE 5% PATCH TOPICAL SCH (16:50)
[2020-11-08] MEDS ORDERED: amLODIPine 5 MG TAB PO SCH ×2 (17:00→21:00)
[2020-11-08 17:10] LABS: Glucose,Whole Blood 147 mg/dL (75-99)
[2020-11-08] MEDS ORDERED: IPRATROPIUM-ALBUTEROL 3 ML NEB INHALATION PRN (20:14)
[2020-11-08 20:37] LABS: Glucose,Whole Blood 227 mg/dL (75-99)
[2020-11-08] MEDS: ATORVASTATIN 20 MG TAB PO SCH (20:45)
[2020-11-08] MEDS: INSULIN DETEMIR (LEVEMIR) 100 UNIT/ML SYR SQ SCH (20:54)
[2020-11-08] MEDS ORDERED: INSULIN DETEMIR (LEVEMIR) 100 UNIT/ML SYR SQ SCH (21:00)
[2020-11-08] MEDS: MENTHOL-ZINC OXIDE OINT 113 GM TUBE TOPICAL SCH (22:33)
[2020-11-08] MEDS ORDERED: LABETALOL 200 MG TAB PO STA (23:36)
[2020-11-09] MEDS: hydrALAZINE HCL 50 MG TAB PO SCH ×2 (05:57→20:39)
[2020-11-09] MEDS: NITROGLYCERIN OINT 1 INCH/GM PACKET TOPICAL SCH (05:57)
[2020-11-09 06:36] LABS: Glucose,Whole Blood 87 mg/dL (75-99)
[2020-11-09] MEDS: INSULIN ASPART (NovoLOG) 100 UNIT/ML VIAL SQ SCH ×4 (06:37→20:40)
[2020-11-09] MEDS: IPRATROPIUM-ALBUTEROL 3 ML NEB INHALATION SCH ×3 (07:33→21:07)
[2020-11-09 08:12] LABS: Anisocytosis Slight; Basophils % (A) 0 %; Eosinophils # (A) 0.3 k/uL (0-0.7); Eosinophils % (A) 4 %; HCT 26.1 % (39.0-53.0); Hypochromasia Slight; Lymphocytes # (A) 0.6 k/uL (1.0-4.8); Lymphocytes % (A) 9 %; MCH 27.4 pg (25.0-35.0); MCHC 30.9 g/dL (31.0-37.0); MCV 88.9 fL (80.0-100.0); Mean Platelet Volume 7.5; Monocytes # (A) 0.5 k/uL (0-1.0); Monocytes % (A) 7 %; Neutrophils # (A) 5.9 k/uL (1.3-7.7); Neutrophils % (A) 79 %; Platelet Count 294 k/uL (150-450); RBC 2.93 m/uL (4.30-5.90); RDW 17.1 % (11.5-15.5); WBC 7.5 k/uL (3.8-10.6)
[2020-11-09 08:27] LABS: Calcium 9.4 mg/dL (8.4-10.2); Magnesium 1.7 mg/dL (1.6-2.3); Potassium 3.8 mmol/L (3.5-5.1)
[2020-11-09] MEDS ORDERED: amLODIPine 10 MG TAB PO SCH (09:00)
--- NOTE | 2020-11-09 09:26 | PN ---
PROGRESS NOTE Mr. Meza appears to be more stable. He had episodes of hypertension. He also has a chronic kidney disease and Nephrology is following him very closely. He has multiple comorbid conditions in the form of CAD, diabetes with chronic kidney disease, and hypertension. Yesterday, he had elevated blood pressure requiring additional medications. He is comfortable resting at the time of my evaluation. Vitals are stable. Blood pressure has improved. JVD 1 cm. No carotid bruit. S1-S2 heard normally. Short systolic murmur noted. Lungs reveal diminished air entry. Abdomen is distended. Lower extremities reveals diminished pulses. IMPRESSION: 1. Uncontrolled hypertension. 2. Coronary artery disease. 3. Diabetes with CKD. 4. History of some prerenal azotemia as well. RECOMMENDATIONS: I am recommending that we add labetalol 200 mg b.i.d. orally for BP control. Continue other medications. I will continue to see him as needed from a cardiac standpoint. MMODL / IJN: [id number] /
[2020-11-09] MEDS ORDERED: hydrALAZINE HCL 20 MG/ML 1 ML VIAL IVP PRN (10:10)
[2020-11-09] MEDS: SODIUM FERRIC GLUCONAT-SUCROSE 125 MG in SODIUM CHLORIDE 0.9% 100 ML IVPB SCH (10:11)
[2020-11-09] MEDS: HEPARIN SODIUM,PORCINE/PF 5,000 UNIT/0.5 ML SYRINGE SQ SCH ×3 (10:12→23:15)
[2020-11-09] MEDS: GABAPENTIN 300 MG CAP PO SCH ×2 (10:13→17:21)
[2020-11-09] MEDS: allopurinoL 100 MG TAB PO SCH (10:13)
[2020-11-09] MEDS: SODIUM BICARBONATE TAB 650 MG TAB PO SCH ×4 (10:13→20:39)
--- NOTE | 2020-11-09 10:13 | P.PN ---
Subjective Patient is seen in follow-up for chronic kidney disease. Patient has chronic kidney disease stage IV with baseline creatinine near 3. GFR stable. Nonoliguric. Currently on 2 L nasal cannula. Denies chest pain or shortness of breath. Vital signs are stable. General: The patient appeared well nourished and normally developed. HEENT: Head exam is unremarkable. Neck is without jugular venous distension. LUNGS: Breath sounds decreased. HEART: Rate and Rhythm are regular. ABDOMEN: Soft, no distention. EXTREMITITES: Trace edema. Objective - Vital Signs Vital signs: Vital Signs Temp 98.2 F 11/08/20 23:31 Pulse 62 11/09/20 05:53 Resp 17 11/09/20 05:53 BP 179/72 11/09/20 05:53 Pulse Ox 96 11/09/20 05:53 Intake & Output 11/08/20 11/09/20 11/09/20 18:59 06:59 18:59 Intake Total 365 300 115 Output Total 1700 1800 550 Balance -8636 -8147 -206 Weight 147 kg 146 kg Intake: Oral 365 300 115 Output: Urine 1700 1800 550 Other: Voiding Method Indwelling Catheter Indwelling Catheter - Labs CBC & Chem 7: 11/09/20 07:34 11/09/20 07:36 Labs: Abnormal Lab Results - Last 24 Hours (Table) 11/07/20 11/08/20 11/08/20 Range/Units 03:53 11:21 11:38 RBC (4.30-5.90) m/uL Hgb (13.0-17.5) gm/dL Hct (39.0-53.0) % MCHC (31.0-37.0) g/dL RDW (11.5-15.5) % Lymphocytes # (1.0-4.8) k/uL Chloride (98-107) mmol/L BUN (9-20) mg/dL Creatinine (0.66-1.25) mg/dL Glucose (74-99) mg/dL POC Glucose (mg/dL) 63 L 68 L (75-99) mg/dL Iron 24 L (65-175) ug/dL TIBC 213 L (228-460) ug/dL % Saturation 11.27 L (15.00-50.00) 11/08/20 11/08/20 11/09/20 Range/Units 16:46 20:23 07:34 RBC 2.93 L (4.30-5.90) m/uL Hgb 8.0 L (13.0-17.5) gm/dL Hct 26.1 L (39.0-53.0) % MCHC 30.9 L (31.0-37.0) g/dL RDW 17.1 H (11.5-15.5) % Lymphocytes # 0.6 L (1.0-4.8) k/uL Chloride (98-107) mmol/L BUN (9-20) mg/dL Creatinine (0.66-1.25) mg/dL Glucose (74-99) mg/dL POC Glucose (mg/dL) 147 H 227 H (75-99) mg/dL Iron (65-175) ug/dL TIBC (228-460) ug/dL % Saturation (15.00-50.00) 11/09/20 Range/Units 07:36 RBC (4.30-5.90) m/uL Hgb (13.0-17.5) gm/dL Hct (39.0-53.0) % MCHC (31.0-37.0) g/dL RDW (11.5-15.5) % Lymphocytes # (1.0-4.8) k/uL Chloride 110 H (98-107) mmol/L BUN 85 H (9-20) mg/dL Creatinine 2.71 H (0.66-1.25) mg/dL Glucose 71 L (74-99) mg/dL POC Glucose (mg/dL) (75-99) mg/dL Iron (65-175) ug/dL TIBC (228-460) ug/dL % Saturation (15.00-50.00) Microbiology - Last 24 Hours (Table) 11/06/20 19:36 Blood Culture - Preliminary Blood No Growth after 48 hours Assessment and Plan Plan: Assessment: 1. 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 Renal function stable. 2. Acute on chronic diastolic CHF with moderate to severe tricuspid regurgitation and moderate mitral regurgitation. 3. Pulmonary hypertension. 4. Diabetes mellitus. 5. Anemia of chronic kidney disease. Iron deficiency noted. Receiving IV iron. Maintained on Aranesp. 6. Hypertension with chronic kidney disease. Blood pressure high. 7. Metabolic acidosis secondary to chronic kidney disease maintained on oral bicarbonate. Plan: Maintain IV Lasix. Amlodipine increased today. Add hydralazine 10 mg IV every 4-6 hours as needed for systolic blood pressure greater than 160. Avoid nephrotoxins. Continue to monitor renal function and urine output.
[2020-11-09] MEDS: ASPIRIN 81 MG PO SCH (10:14)
[2020-11-09] MEDS: ISOSORBIDE MONONITRATE ER 30 MG TAB.ER.24H PO SCH (10:14)
[2020-11-09] MEDS: cloNIDine HCL 0.1 MG TAB PO SCH ×3 (10:14→17:21)
[2020-11-09] MEDS: amLODIPine 10 MG TAB PO SCH (10:14)
[2020-11-09] MEDS: LABETALOL 200 MG TAB PO SCH ×2 (10:14→20:39)
[2020-11-09] MEDS: FLUTICASONE 50MCG/SPRAY NASAL 16GM EA NOSTRIL SCH (10:14)
[2020-11-09] MEDS: FUROSEMIDE 10 MG/ML 10 ML VIAL IV SCH ×2 (10:15→20:40)
[2020-11-09 11:38] LABS: Glucose,Whole Blood 102 mg/dL (75-99)
[2020-11-09] MEDS: LIDOCAINE 5% PATCH TOPICAL SCH (12:13)
[2020-11-09] MEDS: polyethylene glycoL 3350 17 GM POWD.PACK PO SCH (12:13)
[2020-11-09] MEDS ORDERED: NALOXONE 0.4 MG/ML 1 ML VIAL IVP PRN (14:03)
[2020-11-09] MEDS ORDERED: ACETAMINOPHEN TAB 325 MG TAB PO PRN (14:12)
--- NOTE | 2020-11-09 14:16 | P.PN ---
Subjective Progress Note Date: 11/09/20 Hospital course: Patient is a 70-year-old male who resides at [facility] secondary to wheelchair/bed bound status along with a past medical history significant for CAD with previous stent placement, chronic diastolic congestive heart failure, CKD stage IV, hypertension, hyperlipidemia, chronic anemia, chronic left lower extremity cellulitis and history of ESBL and VRE infections. Patient presented to the hospital on 11/06/20 with a chief complaint of chest pain. He was fully evaluated in the emergency department and found to have an elevated troponin of 0.053 and 0.059 as well as an elevated proBNP of 6630. Chest x-ray significant for CHF. He was started on heparin infusion per ACS protocol for NSTEMI. His EKG was completed revealing sinus tachycardia at 103 bpm with no noted T-wave or ST abnormalities and no changes from previous EKG with the exception of rate. Patient was admitted to our services for elevated troponins and acute exac erbation of chronic diastolic heart failure. Cardiology following. Patient being diuresed with Lasix 60 mg IVP every 12 hours with close monitoring of electrolyte levels and renal function. Physical exam: Patient seen and fully evaluated at bedside this morning. He continues to report having back pain wrapping around into his chest. Reports minimal improvement with lidocaine patches. Additional pain medication ordered. Patient also reports continued shortness of breath and cough. Plan to continue with Lasix 60 mg IVP every 12 hours. Urinary output 3500 mL over the past 24 hours. Patient denies having any headache, lightheadedness, dizziness, or experiencing any numbness/tingling/weakness in extremities. Patient does report feeling constipated and order placed for MiraLAX. General: non toxic, no distress, appears at stated age Derm: warm, dry. Left lower extremity with cellulitis, open weeping wounds present. Head: atraumatic, normocephalic, symmetric Eyes: EOMI, no lid lag, anicteric sclera Mouth: no lip lesion, mucus membranes moist Cardiovascular: S1-S2 normal with regular rate and rhythm. No murmur, gallop, or rub noted. Cap refill less than 2 seconds. Lungs: Respirations even, regular, and unlabored on 2 L O2 via nasal cannula. Lungs were diminished at bilateral bases and patient has diffuse expiratory wheezes bilaterally with a dry nonproductive cough noted throughout assessment. Abdominal: Obese abdomen, taught distended with large umbilical hernia. Nontender to palpation with no guarding. Ext: No gross muscle atrophy, no contractures, left lower extremity cellulitis consisting of open weeping wounds. Right lower extremity 3+ pitting edema accompanied by venous discoloration. Patient wheelchair bound/bedridden. Neuro: Patient alert and oriented. Speech clear. No focal neuro deficits noted at this time. However patient has history of sundowner's and significant confusion at night. Psych: Alert, oriented, appropriate affect Assessment and Plan of care: Acute exacerbation of Chronic diastolic heart failure -ProBNP 6630 -Chest x-ray showing fluid overload positive for CHF -Echocardiogram revealing a normal ejection fraction of 55-60% with moderate mitral and tricuspid valve regurgitation and moderate to severe pulmonary hypertension. -Continue Lasix 60 mg IVP every 12 hours. -Maria catheter placed to enable close monitoring of I's and O's. -Close monitoring of renal function and electrolyte values throughout diuresis. -Cardiology following, appreciate further recommendations. Chest pain with elevated troponins, acute coronary event ruled out elevated trop onins secondary to CHF exacerbation -Troponin 0.053 and 0.059 -EKG sinus tachycardia at 103 bpm with no noted T-wave or ST abnormalities showing no signs of acute ischemia. -Chest x-ray positive for CHF and repeat chest x-ray significant for CHF exacerbation with cardiomegaly and mild to moderate alveolar and interstitial edema. -Continue subcutaneous heparin for DVT prophylaxis -Continuous telemetry monitoring. -Cardiology following. -Continue aspirin, atorvastatin, and clonidine. -Echocardiogram revealing a normal ejection fraction of 55-60% with moderate mitral and tricuspid valve regurgitation and moderate to severe pulmonary hypertension. Type 2 insulin-dependent diabetes mellitus with episode of hypoglycemia, now stable. -Morning hemoglobin 87 with repeat of 102. No further episodes of hypoglycemia since decreasing insulin dosage. -Discontinued scheduled NovoLog with meals and decreased Levemir to 20 units nightly. Patient to continue with glycemic protocol and NovoLog sliding scale. Elevated d-dimer -D-dimer 2.28. -VQ scan negative for PE Back pain -Patient reports being dropped from [facility] at [facility] approxim ately 5 days ago and states he has since had back pain wrapping around into his chest. -CT thoracic and lumbar spine positive for moderate spondylolisthesis and extensive osteophyte formation, no acute fractures. -Supportive measures and symptomatic care. Order placed for lidocaine patches. -Additional pain medication ordered at this time. Tylenol for mild pain, [place] for moderate pain, and morphine for severe pain. -Consult PT/OT. Chronic kidney disease stage IV -BUN 87, creatinine 2.72, and GFR of 23. Baseline creatinine is 2.8. -Caution with nephrotoxic medications and continue to monitor closely with repeat a.m. labs. Normocytic Normochromic Anemia of chronic disease secondary to stage IV CKD -Hemoglobin 8.8 with baseline hemoglobin of 9.0. -Will continue to monitor closely. Chronic cellulitis of left lower extremity -Consult to Wound Care -Uses calmoseptine cream and pastor wrap with dressing changed daily. -Encourage elevation of bilateral lower extremities Peripheral vascular deficiency with 3+ pitting right lower extremity edema -Venous Doppler to be completed negative for DVT. -Pastor Wraps to legs to reduce swelling and encourage elevation of bilateral lower extremities. Hypertension -Monitor vital signs and continue daily medication management with amlodipine, hydralazine and clonidine. -Patient has had episodes of hypertension believed to be secondary to increased pain. Additional pain medications added. We will continue to monitor vital signs and add additional hypertensive medication if needed. Hyperlipidemia -Continue daily medication management with atorvastatin nightly. CODE STATUS: Full code DVT prophylaxis: Heparin Discussed with: Patient and RN Anticipated discharge date: Clinical course to be determined Anticipated discharge place: Back to [facility] A total of 45 minutes was spent on the care of this complex patient more than 50% of the time was spent in counseling and care coordination. Objective - Vital Signs Vital signs: Vital Signs Temp 98.2 F 11/08/20 23:31 Pulse 62 11/09/20 05:53 Resp 17 11/09/20 05:53 BP 179/72 11/09/20 05:53 Pulse Ox 96 11/09/20 05:53 Intake & Output 11/08/20 11/09/20 11/09/20 18:59 06:59 18:59 Intake Total 365 300 115 Output Total 1700 1800 550 Balance -3906 -1500 -879 Weight 147 kg 146 kg Intake: Oral 365 300 115 Output: Urine 1700 1800 550 Other: Voiding Method Indwelling Catheter Indwelling Catheter - Labs CBC & Chem 7: 11/09/20 07:34 11/09/20 07:36 Labs: Abnormal Lab Results - Last 24 Hours (Table) 11/07/20 11/08/20 11/08/20 Range/Units 03:53 11:21 11:38 RBC (4.30-5.90) m/uL Hgb (13.0-17.5) gm/dL Hct (39.0-53.0) % MCHC (31.0-37.0) g/dL RDW (11.5-15.5) % Lymphocytes # (1.0-4.8) k/uL Chloride (98-107) mmol/L BUN (9-20) mg/dL Creatinine (0.66-1.25) mg/dL Glucose (74-99) mg/dL POC Glucose (mg/dL) 63 L 68 L (75-99) mg/dL Iron 24 L (65-175) ug/dL TIBC 213 L (228-460) ug/dL % Saturation 11.27 L (15.00-50.00) 11/08/20 11/08/20 11/09/20 Range/Units 16:46 20:23 07:34 RBC 2.93 L (4.30-5.90) m/uL Hgb 8.0 L (13.0-17.5) gm/dL Hct 26.1 L (39.0-53.0) % MCHC 30.9 L (31.0-37.0) g/dL RDW 17.1 H (11.5-15.5) % Lymphocytes # 0.6 L (1.0-4.8) k/uL Chloride (98-107) mmol/L BUN (9-20) mg/dL Creatinine (0.66-1.25) mg/dL Glucose (74-99) mg/dL POC Glucose (mg/dL) 147 H 227 H (75-99) mg/dL Iron (65-175) ug/dL TIBC (228-460) ug/dL % Saturation (15.00-50.00) 11/09/20 Range/Units 07:36 RBC (4.30-5.90) m/uL Hgb (13.0-17.5) gm/dL Hct (39.0-53.0) % MCHC (31.0-37.0) g/dL RDW (11.5-15.5) % Lymphocytes # (1.0-4.8) k/uL Chloride 110 H (98-107) mmol/L BUN 85 H (9-20) mg/dL Creatinine 2.71 H (0.66-1.25) mg/dL Glucose 71 L (74-99) mg/dL POC Glucose (mg/dL) (75-99) mg/dL Iron (65-175) ug/dL TIBC (228-460) ug/dL % Saturation (15.00-50.00) Microbiology - Last 24 Hours (Table) 11/06/20 19:36 Blood Culture - Preliminary Blood No Growth after 48 hours
[2020-11-09] MEDS: MAGNESIUM SULFATE-D5W PMX 1 GM in DEXTROSE/WATER 1 100ML.BAG IVPB SCH ×2 (15:58→17:20)
[2020-11-09] MEDS: MORPHINE SULFATE 4 MG/ML SYRINGE IV PRN (15:58)
[2020-11-09 16:59] LABS: Glucose,Whole Blood 172 mg/dL (75-99)
[2020-11-09] MEDS: CHOLECALCIFEROL 25 MCG (1000 IU) TABLET PO SCH (17:21)
[2020-11-09] MEDS: FERROUS SULFATE 325 MG TAB PO SCH (17:21)
[2020-11-09 20:34] LABS: Glucose,Whole Blood 236 mg/dL (75-99)
[2020-11-09] MEDS: INSULIN DETEMIR (LEVEMIR) 100 UNIT/ML SYR SQ SCH (20:40)
[2020-11-09] MEDS: ATORVASTATIN 20 MG TAB PO SCH (20:40)
[2020-11-09] MEDS: MENTHOL-ZINC OXIDE OINT 113 GM TUBE TOPICAL SCH (20:41)
[2020-11-10 06:17] LABS: Glucose,Whole Blood 116 mg/dL (75-99)
[2020-11-10] MEDS: MORPHINE SULFATE 4 MG/ML SYRINGE IV PRN (06:23)
[2020-11-10] MEDS: INSULIN ASPART (NovoLOG) 100 UNIT/ML VIAL SQ SCH ×4 (06:27→20:48)
[2020-11-10] MEDS: IPRATROPIUM-ALBUTEROL 3 ML NEB INHALATION SCH ×3 (07:13→19:31)
[2020-11-10 08:02] LABS: Anisocytosis Slight; Basophils % (A) 0 %; Eosinophils # (A) 0.3 k/uL (0-0.7); Eosinophils % (A) 4 %; HCT 23.2 % (39.0-53.0); HGB 7.6 gm/dL (13.0-17.5); Hypochromasia Slight; Lymphocytes # (A) 0.8 k/uL (1.0-4.8); Lymphocytes % (A) 8 %; MCHC 32.6 g/dL (31.0-37.0); Mean Platelet Volume 7.8; Monocytes # (A) 0.7 k/uL (0-1.0); Monocytes % (A) 7 %; Neutrophils # (A) 7.7 k/uL (1.3-7.7); Neutrophils % (A) 80 %; Platelet Count 257 k/uL (150-450); RBC 2.61 m/uL (4.30-5.90); RDW 16.9 % (11.5-15.5); WBC 9.6 k/uL (3.8-10.6)
[2020-11-10 08:10] LABS: Magnesium 2.1 mg/dL (1.6-2.3); Potassium 4.2 mmol/L (3.5-5.1)
[2020-11-10] MEDS: LIDOCAINE 5% PATCH TOPICAL SCH (09:09)
[2020-11-10] MEDS: SODIUM BICARBONATE TAB 650 MG TAB PO SCH ×4 (09:10→20:49)
[2020-11-10] MEDS: LABETALOL 200 MG TAB PO SCH ×2 (09:10→22:17)
[2020-11-10] MEDS: GABAPENTIN 300 MG CAP PO SCH ×2 (09:10→17:23)
[2020-11-10] MEDS: amLODIPine 10 MG TAB PO SCH (09:10)
[2020-11-10] MEDS: ISOSORBIDE MONONITRATE ER 30 MG TAB.ER.24H PO SCH (09:10)
[2020-11-10] MEDS: cloNIDine HCL 0.1 MG TAB PO SCH ×3 (09:11→17:23)
[2020-11-10] MEDS: FLUTICASONE 50MCG/SPRAY NASAL 16GM EA NOSTRIL SCH (09:11)
[2020-11-10] MEDS: allopurinoL 100 MG TAB PO SCH (09:11)
[2020-11-10] MEDS: FUROSEMIDE 10 MG/ML 10 ML VIAL IV SCH ×2 (09:11→20:48)
[2020-11-10] MEDS: ASPIRIN 81 MG PO SCH (09:11)
[2020-11-10] MEDS: polyethylene glycoL 3350 17 GM POWD.PACK PO SCH (09:12)
[2020-11-10] MEDS: HEPARIN SODIUM,PORCINE/PF 5,000 UNIT/0.5 ML SYRINGE SQ SCH ×2 (09:12→17:22)
[2020-11-10] MEDS: SODIUM FERRIC GLUCONAT-SUCROSE 125 MG in SODIUM CHLORIDE 0.9% 100 ML IVPB SCH (09:24)
[2020-11-10] MEDS: hydrALAZINE HCL 50 MG TAB PO SCH ×2 (09:24→20:48)
--- NOTE | 2020-11-10 10:58 | P.PN ---
Subjective Progress Note Date: 11/10/20 Hospital course: Patient is a 70-year-old male who resides at [facility] secondary to wheelchair/bed bound status along with a past medical history significant for CAD with previous stent placement, chronic diastolic congestive heart failure, CKD stage IV, hypertension, hyperlipidemia, chronic anemia, chronic left lower extremity cellulitis and history of ESBL and VRE infections. Patient presented to the hospital on 11/06/20 with a chief complaint of chest pain. He was fully evaluated in the emergency department and found to have an elevated troponin of 0.053 and 0.059 as well as an elevated proBNP of 6630. Chest x-ray significant for CHF. He was started on heparin infusion per ACS protocol for NSTEMI. His EKG was completed revealing sinus tachycardia at 103 bpm with no noted T-wave or ST abnormalities and no changes from previous EKG with the exception of rate. Patient was admitted to our services for elevated troponins and acute exac erbation of chronic diastolic heart failure. Cardiology following. Patient being diuresed with Lasix 60 mg IVP every 12 hours with close monitoring of electrolyte levels and renal function. Physical exam: Patient seen and fully evaluated at bedside this morning. He reports his back pain continues, but states pain medication is helping. He states that his shortness of breath is improving, but he continues to have intermittent chest pain. Plan to continue with Lasix 60 mg IVP every 12 hours. Urinary output 2075 mL over the past 24 hours. Patient denies having any headache, lightheadedness, dizziness, or experiencing any numbness/tingling/weakness in extremities. Patient was able to have a bowel movement after initiating MiraLAX yesterday morning. General: non toxic, no distress, appears at stated age Derm: warm, dry. Left lower extremity with cellulitis, open weeping wounds present. Head: atraumatic, normocephalic, symmetric Eyes: EOMI, no lid lag, anicteric sclera Mouth: no lip lesion, mucus membranes moist Cardiovascular: S1-S2 normal with regular rate and rhythm. No murmur, gallop, or rub noted. Cap refill less than 2 seconds. Lungs: Respirations even, regular, and unlabored on 2 L O2 via nasal cannula. Lungs were diminished at bilateral bases and patient has diffuse expiratory wheezes bilaterally with a dry nonproductive cough noted throughout assessment. Abdominal: Obese abdomen, taught distended with large umbilical hernia. Nontender to palpation with no guarding. Ext: No gross muscle atrophy, no contractures, left lower extremity cellulitis consisting of open weeping wounds. Right lower extremity 3+ pitting edema accompanied by venous discoloration. Patient wheelchair bound/bedridden. Bilateral lower extremities wrapped with Pastor dressings. Neuro: Patient alert and oriented. Speech clear. No focal neuro deficits noted at this time. However patient has history of sundowner's and significant confusion at night. Psych: Alert, oriented, appropriate affect Assessment and Plan of care: Acute exacerbation of Chronic diastolic heart failure -ProBNP 6630 -Chest x-ray showing fluid overload positive for CHF -Echocardiogram revealing a normal ejection fraction of 55-60% with moderate mitral and tricuspid valve regurgitation and moderate to severe pulmonary hypertension. -Continue Lasix 60 mg IVP every 12 hours. -Maria catheter placed to enable close monitoring of I's and O's. Urinary output 2075 mL over the past 24 hours -Close monitoring of renal function and electrolyte values throughout diuresis. -Cardiology following, appreciate further recommendations. Chest pain with elevated troponins, acute coronary event ruled out elevated troponins secondary to CHF exacerbation and CKD stage IV -Troponin 0.053 and 0.059 -EKG sinus tachycardia at 103 bpm with no noted T-wave or ST abnormalities showing no signs of acute ischemia. -Chest x-ray positive for CHF and repeat chest x-ray significant for CHF exacerbation with cardiomegaly and mild to moderate alveolar and interstitial edema. -Continue subcutaneous heparin for DVT prophylaxis -Continuous telemetry monitoring. -Cardiology following. -Continue aspirin, atorvastatin, and clonidine. -Echocardiogram revealing a normal ejection fraction of 55-60% with moderate mitral and tricuspid valve regurgitation and moderate to severe pulmonary hypertension. Type 2 insulin-dependent diabetes mellitus with episode of hypoglycemia, now stable. -Morning hemoglobin 87 with repeat of 102. No further episodes of hypoglycemia since decreasing insulin dosage. -Discontinued scheduled NovoLog with meals and decreased Levemir to 20 units nightly. Patient to continue with glycemic protocol and NovoLog sliding scale. Elevated d-dimer -D-dimer 2.28. -VQ scan negative for PE Back pain -Patient reports being dropped from [facility] at [facility] approximately 5 days ago and states he has since had back pain wrapping around into his chest. -CT thoracic and lumbar spine positive for moderate spondylolisthesis and extensive osteophyte formation, no acute fractures. -Supportive measures and symptomatic care. Order placed for lidocaine patches. -Additional pain medication ordered at this time. Tylenol for mild pain, [place] for moderate pain, and morphine for severe pain. -Consult PT/OT. Chronic kidney disease stage IV -BUN 88, creatinine 2.84, and GFR of 22. Baseline creatinine is 2.8. -Caution with nephrotoxic medications and continue to monitor closely with repeat a.m. labs. Normocytic Normochromic Anemia of chronic disease secondary to stage IV CKD -Hemoglobin 7.6 with baseline hemoglobin of 9.0. -Will continue to monitor closely. Chronic cellulitis of left lower extremity -Consult to Wound Care -Uses calmoseptine cream and pastor wrap with dressing changed daily. -Encourage elevation of bilateral lower extremities Peripheral vascular deficiency -Venous Doppler to be completed negative for DVT. -Pastor Wraps to legs to reduce swelling and encourage elevation of bilateral lower extremities. Hypertension -Monitor vital signs and continue daily medication management with amlodipine, hydralazine and clonidine. -Patient has had episodes of hypertension believed to be secondary to increased pain. Additional pain medications added. We will continue to monitor vital signs and add additional hypertensive medication if needed. Hyperlipidemia -Continue daily medication management with atorvastatin nightly. CODE STATUS: Full code DVT prophylaxis: Heparin Discussed with: Patient, RN and pt's Lisa via telephone call. Anticipated discharge date: Clinical course to be determined Anticipated discharge place: Back to [facility] A total of 45 minutes was spent on the care of this complex patient more than 50% of the time was spent in counseling and care coordination. Objective - Vital Signs Vital signs: Vital Signs Temp 97.5 F L 11/10/20 09:07 Pulse 63 11/10/20 09:07 Resp 18 11/10/20 09:07 BP 161/67 11/10/20 09:07 Pulse Ox 96 11/10/20 09:07 Intake & Output 11/09/20 11/10/20 11/10/20 18:59 06:59 18:59 Intake Total 835 200 Output Total 1450 625 Balance -615 -425 Weight 147 kg Intake: Oral 835 200 Output: Urine 1450 625 Other: Voiding Method Indwelling Catheter Indwelling Catheter # Bowel Movements 1 - Labs CBC & Chem 7: 11/10/20 07:18 11/10/20 07:18 Labs: Abnormal Lab Results - Last 24 Hours (Table) 11/09/20 11/09/20 11/09/20 Range/Units 11:36 16:56 20:27 RBC (4.30-5.90) m/uL Hgb (13.0-17.5) gm/dL Hct (39.0-53.0) % RDW (11.5-15.5) % Lymphocytes # (1.0-4.8) k/uL Chloride (98-107) mmol/L BUN (9-20) mg/dL Creatinine (0.66-1.25) mg/dL Glucose (74-99) mg/dL POC Glucose (mg/dL) 102 H 172 H 236 H (75-99) mg/dL 11/10/20 11/10/20 11/10/20 Range/Units 06:10 07:18 07:18 RBC 2.61 L (4.30-5.90) m/uL Hgb 7.6 L (13.0-17.5) gm/dL Hct 23.2 L (39.0-53.0) % RDW 16.9 H (11.5-15.5) % Lymphocytes # 0.8 L (1.0-4.8) k/uL Chloride 108 H (98-107) mmol/L BUN 88 H (9-20) mg/dL Creatinine 2.84 H (0.66-1.25) mg/dL Glucose 102 H (74-99) mg/dL POC Glucose (mg/dL) 116 H (75-99) mg/dL Microbiology - Last 24 Hours (Table) 11/06/20 19:36 Blood Culture - Preliminary Blood No Growth after 72 hours
--- NOTE | 2020-11-10 11:07 | P.PN ---
Subjective Patient is seen in follow-up for chronic kidney disease. Patient has chronic kidney disease stage IV with baseline creatinine near 3. GFR fairly stable. Nonoliguric. Currently on 2 L nasal cannula. Denies chest pain or shortness of breath. Vital signs are stable. General: The patient appeared well nourished and normally developed. HEENT: Head exam is unremarkable. Neck is without jugular venous distension. LUNGS: Breath sounds decreased. HEART: Rate and Rhythm are regular. ABDOMEN: Soft, no distention. EXTREMITITES: Trace edema. Lower extremities wrapped. Objective - Vital Signs Vital signs: Vital Signs Temp 97.5 F L 11/10/20 09:07 Pulse 66 11/10/20 10:59 Resp 18 11/10/20 09:07 BP 161/67 11/10/20 09:07 Pulse Ox 96 11/10/20 09:07 Intake & Output 11/09/20 11/10/20 11/10/20 18:59 06:59 18:59 Intake Total 835 200 480 Output Total 1450 625 Balance -615 -425 480 Weight 147 kg Intake: Oral 835 200 480 Output: Urine 1450 625 Other: Voiding Method Indwelling Catheter Indwelling Catheter Indwelling Catheter # Bowel Movements 1 - Labs CBC & Chem 7: 11/10/20 07:18 11/10/20 07:18 Labs: Abnormal Lab Results - Last 24 Hours (Table) 11/09/20 11/09/20 11/09/20 Range/Units 11:36 16:56 20:27 RBC (4.30-5.90) m/uL Hgb (13.0-17.5) gm/dL Hct (39.0-53.0) % RDW (11.5-15.5) % Lymphocytes # (1.0-4.8) k/uL Chloride (98-107) mmol/L BUN (9-20) mg/dL Creatinine (0.66-1.25) mg/dL Glucose (74-99) mg/dL POC Glucose (mg/dL) 102 H 172 H 236 H (75-99) mg/dL 11/10/20 11/10/20 11/10/20 Range/Units 06:10 07:18 07:18 RBC 2.61 L (4.30-5.90) m/uL Hgb 7.6 L (13.0-17.5) gm/dL Hct 23.2 L (39.0-53.0) % RDW 16.9 H (11.5-15.5) % Lymphocytes # 0.8 L (1.0-4.8) k/uL Chloride 108 H (98-107) mmol/L BUN 88 H (9-20) mg/dL Creatinine 2.84 H (0.66-1.25) mg/dL Glucose 102 H (74-99) mg/dL POC Glucose (mg/dL) 116 H (75-99) mg/dL Microbiology - Last 24 Hours (Table) 11/06/20 19:36 Blood Culture - Preliminary Blood No Growth after 72 hours Assessment and Plan Plan: Assessment: 1. 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 Renal function fairly stable. 2. Acute on chronic diastolic CHF with moderate to severe tricuspid regurgitation and moderate mitral regurgitation. 3. Pulmonary hypertension. 4. Diabetes mellitus. 5. Anemia of chronic kidney disease. Iron deficiency noted. Receiving IV iron. Maintained on Aranesp. 6. Hypertension with chronic kidney disease. Stable. 7. Metabolic acidosis secondary to chronic kidney disease maintained on oral bicarbonate. Plan: Maintain IV Lasix. Avoid nephrotoxins. Continue to monitor renal function and urine output. Repeat chest x-ray tomorrow.
[2020-11-10 11:43] LABS: Glucose,Whole Blood 144 mg/dL (75-99)
[2020-11-10] MEDS: HYDROcodone/APAP 5-325MG 1 EACH TAB PO PRN (12:20)
[2020-11-10 17:03] LABS: Glucose,Whole Blood 181 mg/dL (75-99)
[2020-11-10] MEDS: CHOLECALCIFEROL 25 MCG (1000 IU) TABLET PO SCH (17:23)
[2020-11-10] MEDS: FERROUS SULFATE 325 MG TAB PO SCH (17:23)
[2020-11-10 19:57] LABS: Glucose,Whole Blood 205 mg/dL (75-99)
[2020-11-10] MEDS: ATORVASTATIN 20 MG TAB PO SCH (20:47)
[2020-11-10] MEDS: INSULIN DETEMIR (LEVEMIR) 100 UNIT/ML SYR SQ SCH (20:48)
[2020-11-10] MEDS: MENTHOL-ZINC OXIDE OINT 113 GM TUBE TOPICAL SCH (20:56)
[2020-11-11] MEDS: HEPARIN SODIUM,PORCINE/PF 5,000 UNIT/0.5 ML SYRINGE SQ SCH ×4 (00:32→23:17)
[2020-11-11] MEDS: HYDROcodone/APAP 5-325MG 1 EACH TAB PO PRN (05:19)
[2020-11-11 06:13] LABS: Glucose,Whole Blood 130 mg/dL (75-99)
[2020-11-11] MEDS: INSULIN ASPART (NovoLOG) 100 UNIT/ML VIAL SQ SCH ×4 (06:30→21:17)
[2020-11-11 08:14] LABS: Anisocytosis Slight; HCT 23.5 % (39.0-53.0); HGB 7.6 gm/dL (13.0-17.5); Hypochromasia Slight; MCH 29.1 pg (25.0-35.0); MCHC 32.3 g/dL (31.0-37.0); MCV 90.2 fL (80.0-100.0); Mean Platelet Volume 7.5; Platelet Count 257 k/uL (150-450); RBC 2.61 m/uL (4.30-5.90); RDW 16.8 % (11.5-15.5); WBC 9.1 k/uL (3.8-10.6)
[2020-11-11] MEDS: ASPIRIN 81 MG PO SCH (08:31)
[2020-11-11] MEDS: SODIUM BICARBONATE TAB 650 MG TAB PO SCH ×4 (08:31→21:17)
[2020-11-11] MEDS: LIDOCAINE 5% PATCH TOPICAL SCH (08:31)
[2020-11-11] MEDS: allopurinoL 100 MG TAB PO SCH (08:31)
[2020-11-11] MEDS: amLODIPine 10 MG TAB PO SCH (08:32)
[2020-11-11] MEDS: GABAPENTIN 300 MG CAP PO SCH ×2 (08:32→16:32)
[2020-11-11] MEDS: FUROSEMIDE 10 MG/ML 10 ML VIAL IV SCH (08:32)
[2020-11-11] MEDS: cloNIDine HCL 0.1 MG TAB PO SCH ×3 (08:32→16:31)
[2020-11-11] MEDS: LABETALOL 200 MG TAB PO SCH ×2 (08:32→21:17)
[2020-11-11] MEDS: hydrALAZINE HCL 50 MG TAB PO SCH ×2 (08:32→21:17)
[2020-11-11] MEDS: ISOSORBIDE MONONITRATE ER 30 MG TAB.ER.24H PO SCH (08:33)
[2020-11-11] MEDS: polyethylene glycoL 3350 17 GM POWD.PACK PO SCH (08:33)
[2020-11-11] MEDS: FLUTICASONE 50MCG/SPRAY NASAL 16GM EA NOSTRIL SCH (08:33)
--- NOTE | 2020-11-11 08:35 | XR ---
EXAMINATION TYPE: XR chest 1V DATE OF EXAM: 11/11/2020 COMPARISON: Chest x-ray 11/08/2020 HISTORY: Shortness of breath TECHNIQUE: Single frontal view of the chest is obtained. FINDINGS: There is no evident pneumothorax. The left hemidiaphragm remains obscured. Heart remains e nlarged. Interstitium is increased. There are overlying artifacts, leads. IMPRESSION: There is some improvement in aeration as compared to prior exam. Possible lower lobe ate lectasis versus pneumonia, associated effusion.
[2020-11-11] MEDS: IPRATROPIUM-ALBUTEROL 3 ML NEB INHALATION SCH ×3 (08:41→20:11)
[2020-11-11 08:45] LABS: Magnesium 2.1 mg/dL (1.6-2.3)
[2020-11-11 09:01] LABS: Potassium 4.5 mmol/L (3.5-5.1)
--- NOTE | 2020-11-11 10:49 | P.PN ---
Subjective Progress Note Date: 11/11/20 Hospital course: Patient is a 70-year-old male who resides at [facility] secondary to wheelchair/bed bound status along with a past medical history significant for CAD with previous stent placement, chronic diastolic congestive heart failure, CKD stage IV, hypertension, hyperlipidemia, chronic anemia, chronic left lower extremity cellulitis and history of ESBL and VRE infections. Patient presented to the hospital on 11/06/20 with a chief complaint of chest pain. He was fully evaluated in the emergency department and found to have an elevated troponin of 0.053 and 0.059 as well as an elevated proBNP of 6630. Chest x-ray significant for CHF. He was started on heparin infusion per ACS protocol for NSTEMI. His EKG was completed revealing sinus tachycardia at 103 bpm with no noted T-wave or ST abnormalities and no changes from previous EKG with the exception of rate. Patient was admitted to our services for elevated troponins and acute exac erbation of chronic diastolic heart failure. Cardiology following and discontinued heparin infusion after ruling out acute coronary event. Patient being treated for acute diastolic heart failure diuresed with Lasix 60 mg IVP every 12 hours with close monitoring of electrolyte levels and renal function. Physical exam: Patient seen and fully evaluated at bedside this morning. He reports his back pain and shortness of breath has slightly improved, but states that he continues to have intermittent chest tightness with difficulties taking a deep breath. Repeat chest x-ray completed this morning showing slight improvement. Plan to continue with Lasix 60 mg IVP every 12 hours. Urinary output 1275 mL over the past 24 hours. Patient denies having any headache, lightheadedness, dizziness, or experiencing any numbness/tingling/weakness in extremities. General: non toxic, no distress, appears at stated age Derm: warm, dry. Bilateral lower extremities wrapped with Pastor dressings. Head: atraumatic, normocephalic, symmetric Eyes: EOMI, no lid lag, anicteric sclera Mouth: no lip lesion, mucus membranes moist Cardiovascular: S1-S2 normal with regular rate and rhythm. No murmur, gallop, or rub noted. Cap refill less than 2 seconds. Lungs: Respirations even, regular, and unlabored on 2 L O2 via nasal cannula. Lungs continue to be diminished at bilateral bases with soft diffuse expiratory wheezes bilaterally. Abdominal: Obese abdomen, taught distended with large umbilical hernia. Nontender to palpation with no guarding. Ext: No gross muscle atrophy, no contractures, left lower extremity cellulitis consisting of open weeping wounds dressing in place. Right lower extremity 3+ pitting edema accompanied by venous discoloration dressing in place. Patient wheelchair bound/bedridden. Bilateral lower extremities wrapped with Pastor dressi ngs. Neuro: Patient alert and oriented. Speech clear. No focal neuro deficits noted at this time. However patient has history of sundowner's and significant confusion at night. Psych: Alert, oriented, appropriate affect Assessment and Plan of care: Acute exacerbation of Chronic diastolic heart failure -ProBNP 6630 -Chest x-ray showing fluid overload positive for CHF -Echocardiogram revealing a normal ejection fraction of 55-60% with moderate mitral and tricuspid valve regurgitation and moderate to severe pulmonary hypertension. -Continue Lasix 60 mg IVP every 12 hours. Plan to likely transition to oral Lasix tomorrow. -Maria catheter placed to enable close monitoring of I's and O's. Urinary output 1275 mL over the past 24 hours -Close monitoring of renal function and electrolyte values throughout diuresis. -Cardiology following, appreciate further recommendations. Chest pain with elevated troponins, acute coronary event ruled out elevated troponins secondary to CHF exacerbation and CKD stage IV -Troponin 0.053 and 0.059 -EKG sinus tachycardia at 103 bpm with no noted T-wave or ST abnormalities showing no signs of acute ischemia. -Chest x-ray positive for CHF and repeat chest x-ray significant for CHF exacerbation with cardiomegaly and mild to moderate alveolar and interstitial edema. -Continue subcutaneous heparin for DVT prophylaxis -Continuous telemetry monitoring. -Cardiology following. -Continue aspirin, atorvastatin, and clonidine. -Echocardiogram revealing a normal ejection fraction of 55-60% with moderate mitral and tricuspid valve regurgitation and moderate to severe pulmonary hypertension. Type 2 insulin-dependent diabetes mellitus with episode of hypoglycemia, now stable. -Patient had an episode of hypoglycemia with blood glucose levels dropping down to 63, patient given juice and blood sugar improved. Changes were made to his insulin dosing and no further episodes of hypoglycemia since changes. -Discontinued scheduled NovoLog with meals and decreased Levemir to 20 units nightly. Patient to continue with glycemic protocol and NovoLog sliding scale. Elevated d-dimer -D-dimer 2.28. -VQ scan negative for PE Back pain -Patient reports being dropped from [facility] at [facility] approximately 5 days prior to arrival and states he has since had back pain wrapping around into his chest. -CT thoracic and lumbar spine positive for moderate spondylolisthesis and e xtensive osteophyte formation, no acute fractures. -Supportive measures and symptomatic care. Order placed for lidocaine patches with Tylenol for mild pain, [place] for moderate pain, and morphine for severe pain. -Consult PT/OT. Chronic kidney disease stage IV -BUN 93, creatinine 3.02, and GFR of 20. Baseline creatinine is 2.8. -Caution with nephrotoxic medications and continue to monitor closely with repeat a.m. labs. Normocytic Normochromic Anemia of chronic disease secondary to stage IV CKD -Hemoglobin 7.6 with baseline hemoglobin of 9.0. -Will continue to monitor closely. Chronic cellulitis of left lower extremity -Consult to Wound Care -Uses calmoseptine cream and pastor wrap with dressing changed daily. -Encourage elevation of bilateral lower extremities Peripheral vascular deficiency -Venous Doppler to be completed negative for DVT. -Pastor Wraps to legs to reduce swelling and encourage elevation of bilateral lower extremities. Hypertension -Monitor vital signs and continue daily medication management with amlodipine, hydralazine and clonidine. -Patient has had episodes of hypertension believed to be secondary to increased pain. Additional pain medications added. We will continue to monitor vital signs and add additional hypertensive medication if needed. Hyperlipidemia -Continue daily medication management with atorvastatin nightly. CODE STATUS: Full code DVT prophylaxis: Heparin Discussed with: Patient, RN and pt's Lisa via telephone call. Anticipated discharge date: Clinical course to be determined Anticipated discharge place: Back to [facility] A total of 45 minutes was spent on the care of this complex patient more than 50% of the time was spent in counseling and care coordination. Objective - Vital Signs Vital signs: Vital Signs Temp 97.9 F 11/11/20 08:40 Pulse 64 11/11/20 08:52 Resp 18 11/11/20 08:40 BP 134/65 11/11/20 08:40 Pulse Ox 96 11/11/20 08:40 Intake & Output 11/10/20 11/11/20 11/11/20 18:59 06:59 18:59 Intake Total 1200 10 Output Total 825 450 Balance 375 -440 Weight 146.5 kg Intake: IV 10 Invasive Line 2 10 Oral 1200 Output: Urine 825 450 Other: Voiding Method Indwelling Catheter Indwelling Catheter - Labs CBC & Chem 7: 11/11/20 06:58 11/11/20 06:58 Labs: Abnormal Lab Results - Last 24 Hours (Table) 11/10/20 11/10/20 11/10/20 Range/Units 11:41 16:59 19:56 RBC (4.30-5.90) m/uL Hgb (13.0-17.5) gm/dL Hct (39.0-53.0) % RDW (11.5-15.5) % Carbon Dioxide (22-30) mmol/L BUN (9-20) mg/dL Creatinine (0.66-1.25) mg/dL Glucose (74-99) mg/dL POC Glucose (mg/dL) 144 H 181 H 205 H (75-99) mg/dL 11/11/20 11/11/20 11/11/20 Range/Units 06:11 06:58 06:58 RBC 2.61 L (4.30-5.90) m/uL Hgb 7.6 L (13.0-17.5) gm/dL Hct 23.5 L (39.0-53.0) % RDW 16.8 H (11.5-15.5) % Carbon Dioxide 21 L (22-30) mmol/L BUN 93 H (9-20) mg/dL Creatinine 3.02 H (0.66-1.25) mg/dL Glucose 103 H (74-99) mg/dL POC Glucose (mg/dL) 130 H (75-99) mg/dL Microbiology - Last 24 Hours (Table) 11/06/20 19:36 Blood Culture - Preliminary Blood No Growth after 96 hours
--- NOTE | 2020-11-11 11:33 | P.PN ---
Subjective Patient is seen in follow-up for chronic kidney disease. Patient has chronic kidney disease stage IV with baseline creatinine near 3. Renal function a little worse today. Nonoliguric. Currently on 2 L nasal cannula. Denies chest pain or shortness of breath. Vital signs are stable. General: The patient appeared well nourished and normally developed. HEENT: Head exam is unremarkable. Neck is without jugular venous distension. LUNGS: Breath sounds decreased. HEART: Rate and Rhythm are regular. ABDOMEN: Soft, no distention. EXTREMITITES: Trace edema. Lower extremities wrapped. Objective - Vital Signs Vital signs: Vital Signs Temp 97.9 F 11/11/20 08:40 Pulse 64 11/11/20 08:52 Resp 18 11/11/20 08:40 BP 134/65 11/11/20 08:40 Pulse Ox 96 11/11/20 08:40 Intake & Output 11/10/20 11/11/20 11/11/20 18:59 06:59 18:59 Intake Total 1200 10 Output Total 825 450 Balance 375 -440 Weight 146.5 kg Intake: IV 10 Invasive Line 2 10 Oral 1200 Output: Urine 825 450 Other: Voiding Method Indwelling Catheter Indwelling Catheter Indwelling Catheter - Labs CBC & Chem 7: 11/11/20 06:58 11/11/20 06:58 Labs: Abnormal Lab Results - Last 24 Hours (Table) 11/10/20 11/10/20 11/10/20 Range/Units 11:41 16:59 19:56 RBC (4.30-5.90) m/uL Hgb (13.0-17.5) gm/dL Hct (39.0-53.0) % RDW (11.5-15.5) % Carbon Dioxide (22-30) mmol/L BUN (9-20) mg/dL Creatinine (0.66-1.25) mg/dL Glucose (74-99) mg/dL POC Glucose (mg/dL) 144 H 181 H 205 H (75-99) mg/dL 11/11/20 11/11/20 11/11/20 Range/Units 06:11 06:58 06:58 RBC 2.61 L (4.30-5.90) m/uL Hgb 7.6 L (13.0-17.5) gm/dL Hct 23.5 L (39.0-53.0) % RDW 16.8 H (11.5-15.5) % Carbon Dioxide 21 L (22-30) mmol/L BUN 93 H (9-20) mg/dL Creatinine 3.02 H (0.66-1.25) mg/dL Glucose 103 H (74-99) mg/dL POC Glucose (mg/dL) 130 H (75-99) mg/dL Microbiology - Last 24 Hours (Table) 11/06/20 19:36 Blood Culture - Preliminary Blood No Growth after 96 hours Assessment and Plan Plan: Assessment: 1. Chronic kidney disease stage IV secondary to nephrosclerosis. Renal function a little worse from diuresis. Creatinine 3.02 today. 2. Acute on chronic diastolic CHF with moderate to severe tricuspid regurgitation and moderate mitral regurgitation. 3. Pulmonary hypertension. 4. Diabetes mellitus. 5. Anemia of chronic kidney disease. Iron deficiency noted. Receiving IV iron. Maintained on Aranesp. 6. Hypertension with chronic kidney disease. Stable. 7. Metabolic acidosis secondary to chronic kidney disease maintained on oral bicarbonate. Plan: I will change Lasix to 60 mg orally twice daily. Avoid nephrotoxins. Continue to monitor renal function and urine output.
[2020-11-11 12:09] LABS: Glucose,Whole Blood 151 mg/dL (75-99)
[2020-11-11] MEDS: SODIUM FERRIC GLUCONAT-SUCROSE 125 MG in SODIUM CHLORIDE 0.9% 100 ML IVPB SCH (12:57)
[2020-11-11] MEDS: FUROSEMIDE 20 MG TAB PO SCH (16:31)
[2020-11-11] MEDS: CHOLECALCIFEROL 25 MCG (1000 IU) TABLET PO SCH (16:31)
[2020-11-11] MEDS: FERROUS SULFATE 325 MG TAB PO SCH (16:31)
[2020-11-11 16:57] LABS: Glucose,Whole Blood 207 mg/dL (75-99)
[2020-11-11 20:02] LABS: Glucose,Whole Blood 214 mg/dL (75-99)
[2020-11-11] MEDS: ATORVASTATIN 20 MG TAB PO SCH (21:17)
[2020-11-11] MEDS: INSULIN DETEMIR (LEVEMIR) 100 UNIT/ML SYR SQ SCH (21:17)
[2020-11-11] MEDS: MENTHOL-ZINC OXIDE OINT 113 GM TUBE TOPICAL SCH (21:18)
[2020-11-12 04:35] VITALS: TEMP 97.5
[2020-11-12 06:24] LABS: Glucose,Whole Blood 192 mg/dL (75-99)
[2020-11-12] MEDS: INSULIN ASPART (NovoLOG) 100 UNIT/ML VIAL SQ SCH ×2 (06:32→12:56)
[2020-11-12] MEDS: IPRATROPIUM-ALBUTEROL 3 ML NEB INHALATION SCH ×2 (08:53→13:18)
[2020-11-12] MEDS: FUROSEMIDE 20 MG TAB PO SCH (09:32)
[2020-11-12] MEDS: amLODIPine 10 MG TAB PO SCH (09:32)
[2020-11-12] MEDS: GABAPENTIN 300 MG CAP PO SCH (09:32)
[2020-11-12] MEDS: LABETALOL 200 MG TAB PO SCH (09:32)
[2020-11-12] MEDS: hydrALAZINE HCL 50 MG TAB PO SCH (09:32)
[2020-11-12] MEDS: HEPARIN SODIUM,PORCINE/PF 5,000 UNIT/0.5 ML SYRINGE SQ SCH (09:32)
[2020-11-12] MEDS: ISOSORBIDE MONONITRATE ER 30 MG TAB.ER.24H PO SCH (09:32)
[2020-11-12] MEDS: allopurinoL 100 MG TAB PO SCH (09:33)
[2020-11-12] MEDS: LIDOCAINE 5% PATCH TOPICAL SCH (09:33)
[2020-11-12] MEDS: ASPIRIN 81 MG PO SCH (09:33)
[2020-11-12] MEDS: polyethylene glycoL 3350 17 GM POWD.PACK PO SCH (09:33)
[2020-11-12] MEDS: SODIUM BICARBONATE TAB 650 MG TAB PO SCH ×2 (09:33→12:55)
[2020-11-12] MEDS: cloNIDine HCL 0.1 MG TAB PO SCH ×2 (09:33→12:56)
--- NOTE | 2020-11-12 09:34 | P.DS ---
Providers Date of admission: 11/06/20 20:47 Expected date of discharge: 11/12/20 Attending physician: Mayo Montesinos MD Consults: 11/06/20 20:47 Consult Physician Urgent Consulting Provider: Bebo Herman Consult Reason/Comments: Chest pain, elevated troponin, chronic renal insufficiency Do you want consulting provider notified?: Yes Primary care physician: Papo Ford MD Hospital Course: Patient is a 70-year-old male who resides at [facility] secondary to wheelchair/bed bound status along with a past medical history significant for CAD with previous stent placement, chronic diastolic congestive heart failure, CKD stage IV, hypertension, hyperlipidemia, chronic anemia, chronic left lower extremity cellulitis and history of ESBL and VRE infections. Patient presented to the hospital on 11/06/20 with a chief complaint of chest pain. He was fully evaluated in the emergency department and found to have an elevated troponin of 0.053 and 0.059 as well as an elevated proBNP of 6630. Chest x-ray significant for CHF. He was started on heparin infusion per ACS protocol for NSTEMI. His EKG was completed revealing sinus tachycardia at 103 bpm with no noted T-wave or ST abnormalities and no changes from previous EKG with the exception of rate. Patient was admitted to our services for elevated troponins and acute exacerbation of chronic diastolic heart failure. Cardiology following and discontinued heparin infusion after ruling out acute coronary event. Patient being treated for acute diastolic heart failure diuresed with Lasix 60 mg IVP every 12 hours with close monitoring of electrolyte levels and renal function. Assessment and Plan of care: Acute exacerbation of Chronic diastolic heart failure -Diuresed aggressively with IV Lasix. Seen and evaluated by cardiology and nephrology. Plan to discharge back to [facility] on Lasix 60 mg twice daily. Chest pain with elevated troponins, acute coronary event ruled out elevated troponins secondary to CHF exacerbation and CKD stage IV - ACS ruled out. Seen and evaluated by cardiology. Cardiac regimen adjusted. -Echocardiogram revealing a normal ejection fraction of 55-60% with moderate mitral and tricuspid valve regurgitation and moderate to severe pulmonary hypertension. Type 2 insulin-dependent diabetes mellitus with episode of hypoglycemia, now stable. -Insulin regimen adjusted secondary to episode of hypoglycemia Back pain -Well controlled with [place] and Neurontin -CT thoracic and lumbar spine with moderate spondylolisthesis and extensive osteophyte formation, no acute fractures. Chronic kidney disease stage IV Normocytic Normochromic Anemia of chronic disease secondary to stage IV CKD Chronic venous insufficiency -Venous Dopplercompleted negative for DVT. -Pastor Wraps to legs to reduce swelling and encourage elevation of bilateral lower extremities. Hypertension Hyperlipidemia Patient Condition at Discharge: Fair Plan - Discharge Summary Discharge Rx Participant: No New Discharge Prescriptions: New hydrALAZINE HCL [Apresoline] 50 mg PO BID tab Lidocaine 5% Patch [Lidoderm 5% Patch] 2 patch TOPICAL DAILY patch polyethylene glycoL 3350 [Miralax] 17 gm PO DAILY powd.pack Labetalol [Trandate] 200 mg PO BID tab Cholecalciferol [Vitamin D3 (25 Mcg = 1000 Iu)] 50 mcg PO DAILY@1700 tablet Isosorbide Mononitrate ER [Imdur] 30 mg PO DAILY tab.er.24h Furosemide [Lasix] 60 mg PO BID@0900,1600 tab Gabapentin [Neurontin] 300 mg PO BID@0800,1700 3 Days #6 cap amLODIPine [Norvasc] 10 mg PO DAILY tab Continue allopurinoL [Zyloprim] 100 mg PO DAILY@0800 Fish Oil/Dha/Epa [Fish Oil 1,200 mg Fish Oil] 1 cap PO DAILY@1700 Ferrous Sulfate [Iron (65 MG Elemental)] 325 mg PO DAILY@1700 Atorvastatin [Lipitor] 20 mg PO HS@2100 Aspirin EC [Ecotrin Low Dose] 81 mg PO DAILY@1700 Pantoprazole [Protonix] 40 mg PO DAILY@0600 Magnesium Hydroxide [Milk of Magnesia Concentrate] 7,200 mg PO DAILY PRN PRN Reason: Constipation bisacodyL [Dulcolax] 10 mg RECTAL DAILY PRN PRN Reason: Constipation cloNIDine HCL [Catapres] 0.1 mg PO TID@0800,1200,1700 Epoetin Avelino-Epbx [Retacrit] 10,000 unit SQ TU@1700 Sodium Bicarbonate Tab 650 mg PO TID tab Ipratropium-Albuterol Nebulize [Duoneb 0.5 mg-3 mg/3 ml Soln] 3 ml INHALATION RT-TID HYDROcodone/APAP 10-325MG [[place] 10-325] 1 tab PO TID PRN 3 Days #9 tab PRN Reason: Pain Changed Insulin Glargine,Hum.rec.anlog [Lantus Solostar] 20 unit SQ HS@2100 #0 Discontinued Cholecalciferol [Vitamin D3 (25 Mcg = 1000 Iu)] 25 mcg PO DAILY@1700 calcitrioL [Calcitriol] 0.25 mcg PO SUTUTHSA@1700 hydrALAZINE HCL [Apresoline] 100 mg PO TID@0600,1400,2100 Sodium Polystyrene Sulfonate 10 ml PO Q48H Na Phos,M-B/Na Phos,Di-Ba [Fleet Adult] 133 ml RECTAL DAILY PRN PRN Reason: Constipation Loperamide HCl [Imodium A-D] 2 - 4 mg PO TID PRN MDD 4 tabs PRN Reason: Diarrhea INSULIN ASPART (NovoLOG) [NovoLOG (formulary)] 4 unit SQ TID@0700,1100,1630 Furosemide [Lasix] 40 mg PO DAILY@0800 calcitrioL [Calcitriol] 0.5 mcg PO MOWEFR@1700 Gabapentin [Neurontin] 300 mg PO BID@0800,1700 #6 cap amLODIPine [Norvasc] 7.5 mg PO BID Fluticasone Nasal [place] [Flonase Nasal [place]] 1 spray EA NOSTRIL DAILY guaiFENesin [Diabetic Tussin] 200 mg PO Q4H PRN PRN Reason: Cough Discharge Medication List allopurinoL [Zyloprim] 100 mg PO DAILY@0800 04/22/15 [History] Fish Oil/Dha/Epa [Fish Oil 1,200 mg Fish Oil] 1 cap PO DAILY@17009/06/15 [History] Ferrous Sulfate [Iron (65 MG Elemental)] 325 mg PO DAILY@17010/23/15 [History] Atorvastatin [Lipitor] 20 mg PO HS@209912/09/19 [History] Aspirin EC [Ecotrin Low Dose] 81 mg PO DAILY@169908/08/20 [History] Pantoprazole [Protonix] 40 mg PO DAILY@0600 08/08/20 [History] Epoetin Avelino-Epbx [Retacrit] 10,000 unit SQ TU@1700 09/07/20 [History] Magnesium Hydroxide [Milk of Magnesia Concentrate] 7,200 mg PO DAILY PRN 09/07/20 [History] bisacodyL [Dulcolax] 10 mg RECTAL DAILY PRN 09/07/20 [History] cloNIDine HCL [Catapres] 0.1 mg PO TID@0800,1200,1700 09/07/20 [History] Sodium Bicarbonate Tab 650 mg PO TID tab 09/12/20 [Rx] Ipratropium-Albuterol Nebulize [Duoneb 0.5 mg-3 mg/3 ml Soln] 3 ml INHALATION RT-TID 11/06/20 [History] Cholecalciferol [Vitamin D3 (25 Mcg = 1000 Iu)] 50 mcg PO DAILY@1700 tablet 11/12/20 [Rx] Furosemide [Lasix] 60 mg PO BID@0900,1600 tab 11/12/20 [Rx] Gabapentin [Neurontin] 300 mg PO BID@0800,1700 3 Days #6 cap 11/12/20 [Rx] HYDROcodone/APAP 10-325MG [[place] 10-325] 1 tab PO TID PRN 3 Days #9 tab 11/12/20 [Rx] Insulin Glargine,Hum.rec.anlog [Lantus Solostar] 20 unit SQ HS@2100 #0 11/12/20 [Rx] Isosorbide Mononitrate ER [Imdur] 30 mg PO DAILY tab.er.24h 11/12/20 [Rx] Labetalol [Trandate] 200 mg PO BID tab 11/12/20 [Rx] Lidocaine 5% Patch [Lidoderm 5% Patch] 2 patch TOPICAL DAILY patch 11/12/20 [Rx] amLODIPine [Norvasc] 10 mg PO DAILY tab 11/12/20 [Rx] hydrALAZINE HCL [Apresoline] 50 mg PO BID tab 11/12/20 [Rx] polyethylene glycoL 3350 [Miralax] 17 gm PO DAILY powd.pack 11/12/20 [Rx] Follow up Appointment(s)/Referral(s): Trino Yarbrough MD [STAFF PHYSICIAN] - 2 Weeks Papo Ford MD [Primary Care Provider] - 1-2 days Discharge Disposition: TRANSFER TO SNF/ECF
[2020-11-12] MEDS: SODIUM FERRIC GLUCONAT-SUCROSE 125 MG in SODIUM CHLORIDE 0.9% 100 ML IVPB SCH (09:38)
[2020-11-12 09:52] VITALS: BP 191/62; PULSE 60; RESP 16
[2020-11-12 12:14] LABS: Glucose,Whole Blood 173 mg/dL (75-99)
--- NOTE | 2020-11-12 12:58 | P.PN ---
Subjective Patient is seen in follow-up for chronic kidney disease. Patient has chronic kidney disease stage IV with baseline creatinine near 3. Nonoliguric. Maintained on oral Lasix. Currently on 2 L nasal cannula. Denies chest pain or shortness of breath. Vital signs are stable. General: The patient appeared well nourished and normally developed. HEENT: Head exam is unremarkable. Neck is without jugular venous distension. LUNGS: Breath sounds decreased. HEART: Rate and Rhythm are regular. ABDOMEN: Soft, no distention. EXTREMITITES: Trace edema. Lower extremities wrapped. Objective - Vital Signs Vital signs: Vital Signs Temp 97.5 F L 11/12/20 09:30 Pulse 60 11/12/20 09:30 Resp 16 11/12/20 09:30 BP 191/62 11/12/20 09:30 Pulse Ox 92 L 11/12/20 09:30 Intake & Output 11/11/20 11/12/20 11/12/20 18:59 06:59 18:59 Intake Total 1665 125 Output Total 250 Balance 1665 -125 Weight 147 kg Intake: Intake, IV Titration 100 Amount Sodium Ferric Gluconat- 100 Sucrose 125 mg In Sodium Chloride 0.9% 100 ml @ 100 mls/hr IVPB DAILY [facility] Rx#:[id number] Oral 1565 125 Output: Urine 250 Other: Voiding Method Indwelling Catheter Indwelling Catheter Indwelling Catheter # Voids 325 - Labs CBC & Chem 7: 11/11/20 06:58 11/11/20 06:58 Labs: Abnormal Lab Results - Last 24 Hours (Table) 11/11/20 11/11/20 11/12/20 Range/Units 16:54 20:01 06:22 POC Glucose (mg/dL) 207 H 214 H 192 H (75-99) mg/dL 11/12/20 Range/Units 11:58 POC Glucose (mg/dL) 173 H (75-99) mg/dL Microbiology - Last 24 Hours (Table) 11/06/20 19:36 Blood Culture - Preliminary Blood No Growth after 120 hours Assessment and Plan Plan: Assessment: 1. Chronic kidney disease stage IV secondary to nephrosclerosis. Renal function a little worse from diuresis. Creatinine 3.02 as of yesterday. 2. Acute on chronic diastolic CHF with moderate to severe tricuspid regurgitation and moderate mitral regurgitation. 3. Pulmonary hypertension. 4. Diabetes mellitus. 5. Anemia of chronic kidney disease. Iron deficiency noted. Receiving IV iron. Maintained on Aranesp. 6. Hypertension with chronic kidney disease. Stable. 7. Metabolic acidosis secondary to chronic kidney disease maintained on oral bicarbonate. Plan: Maintain oral Lasix. Avoid nephrotoxins. Continue to monitor renal function and urine output. Anticipate discharge soon. Repeat BMP and magnesium level to 3 days postdischarge. Follow up outpatient in 1 week.
== END 2020-11-12 13:35 | DRG 291 ==
LOC: EC 19:02 → 3SCARD 20:47
PROVIDERS: ADMIT Internal Medicine; ATTEND Internal Medicine
DX: I13.2 Hypertensive heart and chronic kidney disease with heart failure and with stage 5 chronic kidney disease, or end stage renal disease (principal); I50.33 Acute on chronic diastolic (congestive) heart failure; J18.9 Pneumonia, unspecified organism; E87.2 Acidosis; J44.0 Chronic obstructive pulmonary disease with (acute) lower respiratory infection; N18.5 Chronic kidney disease, stage 5; Z68.42 Body mass index [BMI] 45.0-49.9, adult; L03.116 Cellulitis of left lower limb; I27.20 Pulmonary hypertension, unspecified; E11.649 Type 2 diabetes mellitus with hypoglycemia without coma; D63.1 Anemia in chronic kidney disease; E11.22 Type 2 diabetes mellitus with diabetic chronic kidney disease; E11.40 Type 2 diabetes mellitus with diabetic neuropathy, unspecified; E11.51 Type 2 diabetes mellitus with diabetic peripheral angiopathy without gangrene; F03.90 Unspecified dementia, unspecified severity, without behavioral disturbance, psychotic disturbance, mood disturbance, and anxiety; E66.01 Morbid (severe) obesity due to excess calories; I25.110 Atherosclerotic heart disease of native coronary artery with unstable angina pectoris; Z79.4 Long term (current) use of insulin; Z20.822 Contact with and (suspected) exposure to COVID-19; E61.1 Iron deficiency; E78.5 Hyperlipidemia, unspecified; E83.42 Hypomagnesemia; G47.33 Obstructive sleep apnea (adult) (pediatric); I08.1 Rheumatic disorders of both mitral and tricuspid valves; K42.9 Umbilical hernia without obstruction or gangrene; M43.14 Spondylolisthesis, thoracic region; M43.16 Spondylolisthesis, lumbar region; M25.78 Osteophyte, vertebrae; G89.29 Other chronic pain; M54.9 Dorsalgia, unspecified; I87.2 Venous insufficiency (chronic) (peripheral); I83.90 Asymptomatic varicose veins of unspecified lower extremity; R32 Unspecified urinary incontinence; R77.8 Other specified abnormalities of plasma proteins; M19.90 Unspecified osteoarthritis, unspecified site; Z79.82 Long term (current) use of aspirin; Z79.891 Long term (current) use of opiate analgesic; Z79.899 Other long term (current) drug therapy; Z86.19 Personal history of other infectious and parasitic diseases; Z99.3 Dependence on wheelchair; Z74.01 Bed confinement status; Z87.440 Personal history of urinary (tract) infections; Z71.3 Dietary counseling and surveillance; Z90.49 Acquired absence of other specified parts of digestive tract; Z87.19 Personal history of other diseases of the digestive system; Z95.5 Presence of coronary angioplasty implant and graft; Z98.42 Cataract extraction status, left eye; Z98.41 Cataract extraction status, right eye; Z87.438 Personal history of other diseases of male genital organs; Z87.39 Personal history of other diseases of the musculoskeletal system and connective tissue; Z98.890 Other specified postprocedural states; Z88.6 Allergy status to analgesic agent; Z88.2 Allergy status to sulfonamides; Z82.5 Family history of asthma and other chronic lower respiratory diseases; Z81.2 Family history of tobacco abuse and dependence; Z83.3 Family history of diabetes mellitus; Z82.49 Family history of ischemic heart disease and other diseases of the circulatory system
CPT/HCPCS: 36415; 71045; 71046; 72128; 72131; 78580; 80048; 80053; 80061; 81001; 82040; 82550; 82570; 82728; 83036; 83540; 83550; 83690; 83735; 83880; 83970; 84100; 84156; 84484; 84550; 85025; 85027; 85379; 85610; 85730; 87040; 87635; 93005; 93306; 94640; 96374; 96375; 99285

== ENCOUNTER 2020-11-13 07:47 | Inpatient (IN) | payer MEDICARE, BC ==
[2020-11-13] MEDS ORDERED: ACETAMINOPHEN TAB 500 MG TAB PO STA ×2 (08:00→09:43)
[2020-11-13] MEDS ORDERED: ACETAMINOPHEN TAB 500 MG TAB PO PRN (08:00)
--- NOTE | 2020-11-13 08:09 | ED ---
General Adult HPI - General Chief complaint: Altered Mental Status Stated complaint: AMS Time Seen by Provider: 11/13/20 07:51 Source: patient, EMS, RN notes reviewed Mode of arrival: EMS Limitations: altered mental status - History of Present Illness Initial comments: Patient is a pleasant 70-year-old male presenting to the emergency Department with reports of drowsiness. Patient is a poor historian and offers little information. Patient was recently in the hospital. EMS has concern for fever as a state patient felt warm. Patient does awaken and answer simple questions and follow commands. Patient only complains of feeling tired. Patient does admit to feeling somewhat dyspneic specifically questioned. - Related Data Home Medications Medication Instructions Recorded Confirmed allopurinoL [Zyloprim] 100 mg PO DAILY@0800 04/22/15 11/13/20 Fish Oil/Dha/Epa [Fish Oil 1,200 1 cap PO DAILY@169909/06/15 11/13/20 mg Fish Oil] Ferrous Sulfate [Iron (65 MG 325 mg PO DAILY@169910/23/15 11/13/20 Elemental)] Atorvastatin [Lipitor] 20 mg PO HS@2100 12/09/19 11/13/20 Aspirin EC [Ecotrin Low Dose] 81 mg PO DAILY@0 08/08/20 11/13/20 Pantoprazole [Protonix] 40 mg PO DAILY@0600 08/08/20 11/13/20 Epoetin Avelino-Epbx [Retacrit] 10,000 unit SQ TU@169909/07/20 11/13/20 Magnesium Hydroxide [Milk of 7,200 mg PO DAILY PRN 09/07/20 11/13/20 Magnesia Concentrate] bisacodyL [Dulcolax] 10 mg RECTAL DAILY PRN 09/07/20 11/13/20 cloNIDine HCL [Catapres] 0.1 mg PO TID@0800,1200,1700 09/07/20 11/13/20 Ipratropium-Albuterol Nebulize 3 ml INHALATION RT-TID@08,12,17 11/06/20 11/13/20 [Duoneb 0.5 mg-3 mg/3 ml Soln] Cholecalciferol [Vitamin D3 (25 25 mcg PO DAILY@169911/13/20 11/13/20 Mcg = 1000 Iu)] Furosemide [Lasix] 60 mg PO BID@0600,1400 11/13/20 11/13/20 Gabapentin [Neurontin] 300 mg PO BID@0800,2100 11/13/20 11/13/20 Isosorbide Mononitrate ER [Imdur] 30 mg PO DAILY@0800 11/13/20 11/13/20 Labetalol [Trandate] 200 mg PO BID@0800,1700 11/13/20 11/13/20 Na Phos,M-B/Na Phos,Di-Ba [Fleet 133 ml RECTAL ONCE PRN 11/13/20 11/13/20 Adult] Sodium Bicarbonate Tab 650 mg PO TID@0800,1200,1700 11/13/20 11/13/20 amLODIPine [Norvasc] 10 mg PO DAILY 11/13/20 11/13/20 hydrALAZINE HCL [Apresoline] 50 mg PO BID@0800,1700 11/13/20 11/13/20 polyethylene glycoL 3350 [Miralax] 17 gm PO DAILY@0800 11/13/20 11/13/20 Previous Rx's Medication Instructions Recorded HYDROcodone/APAP 10-325MG [[place] 1 tab PO TID PRN 3 Days #9 tab 11/12/20 10-325] Insulin Glargine,Hum.rec.anlog 20 unit SQ HS@2100 #0 11/12/20 [Lantus Solostar] Lidocaine 5% Patch [Lidoderm 5% 2 patch TOPICAL DAILY patch 11/12/20 Patch] Allergies Allergy/AdvReac Type Severity Reaction Status Date / Time aspirin [From Anacin] Allergy Rash/Hives Verified 11/13/20 09:07 (Dulce brand ok) sulfamethoxazole AdvReac affects Verified 11/13/20 09:07 [From Bactrim] kidneys trimethoprim [From Bactrim] AdvReac Unknown Verified 11/13/20 09:07 Review of Systems ROS Statement: Those systems with pertinent positive or pertinent negative responses have been documented in the HPI. ROS Other: All systems not noted in ROS Statement are negative. 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, chronic venous ulcer left anterior lower leg-treated in [facility], sepsis from L leg wound, chronic anemia, hyperkalemia, CKD-spouse states his kidneys function at 28%, DELVIN with Cpap, possible starting of dementia, confusion at times at night, bilateral lower leg varicosities, umbilical hernia, Hpylori, ambulates very little with walker and mostly wheelchair bound, recent UTI History of Any Multi-Drug Resistant Organisms: ESBL, VRE Date of last positivie culture/infection: 11/28/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 Past Anesthesia/Blood Transfusion Reactions: No Reported Reaction Date of Last Stent Placement:: 10/2015 Past Psychological History: No Psychological Hx Reported Smoking Status: Never smoker Past Alcohol Use History: None Reported Past Drug Use History: None Reported - Past Family History Father Family Medical History: COPD Additional Family Medical History / Comment(s): AT AGE 64- EMPHYSEMA(SMOKER) Mother Family Medical History: Diabetes Mellitus, Hypertension Additional Family Medical History / Comment(s): LUPUS, LEG AMPUTATED. MOM IN HER 60'S General Exam Limitations: altered mental status General appearance: alert, in no apparent distress Head exam: Present: atraumatic Eye exam: Present: normal appearance, PERRL, EOMI ENT exam: Present: normal oropharynx Neck exam: Present: normal inspection. Absent: tenderness, meningismus Respiratory exam: Present: normal lung sounds bilaterally, accessory muscle use Cardiovascular Exam: Present: regular rate, normal rhythm GI/Abdominal exam: Present: soft, hernia (Easily reducible umbilical hernia). Absent: tenderness Extremities exam: Present: pedal edema. Absent: calf tenderness Neurological exam: Present: alert. Absent: motor sensory deficit Expanded Patient oriented to: Present: person, place, time Motor strength exam: RUE: 5, LUE: 5, RLE: 5, LLE: 5 Psychiatric exam: Present: flat affect Skin exam: Present: normal color Course Vital Signs 11/13/20 07:50 Temperature 98.8 F Pulse Rate 77 Respiratory 18 Rate Blood Pressure 131/68 O2 Sat by Pulse 94 L Oximetry EKG Findings - EKG Comments: EKG Findings:: Sinus rhythm with a rate of 75. For screening AV block with a GA of 212. QRS 102. QT 370. QTc 413. Normal axis. Normal QRS. No acute ST change. PVC present. Procedures - ABG Interpretation Ph: 7.34 PCO2: 42 PO2: 68.8 Bicarbonate: 22.7 Interpretation: other (Hypoxia) Additional Comments: On 28% oxygen Medical Decision Making - Medical Decision Making Patient reevaluated. Patient and family updated on results and plan. Temperature 99.6. Pulse ox is 89% on room air. Patient and family updated. Case was discussed with Dr. Chavis, who will come evaluate. He does request ABG and computed tomography scan of the brain. - Lab Data Result diagrams: 11/13/20 08:05 11/13/20 08:05 Lab Results 11/13/20 11/13/20 11/13/20 Range/Units 08:05 08:05 08:05 WBC 9.4 (3.8-10.6) k/uL RBC 2.73 L (4.30-5.90) m/uL Hgb 7.5 L (13.0-17.5) gm/dL Hct 24.8 L (39.0-53.0) % MCV 91.0 (80.0-100.0) fL MCH 27.5 (25.0-35.0) pg MCHC 30.2 L (31.0-37.0) g/dL RDW 17.2 H (11.5-15.5) % Plt Count 304 (150-450) k/uL MPV 7.4 Neutrophils % 83 % Lymphocytes % 7 % Monocytes % 7 % Eosinophils % 2 % Basophils % 0 % Neutrophils # 7.8 H (1.3-7.7) k/uL Lymphocytes # 0.6 L (1.0-4.8) k/uL Monocytes # 0.6 (0-1.0) k/uL Eosinophils # 0.2 (0-0.7) k/uL Basophils # 0.0 (0-0.2) k/uL Hypochromasia Slight Anisocytosis Slight PT 10.2 (9.0-12.0) sec INR 0.9 (<1.2) APTT 26.8 (22.0-30.0) sec Sample Site ABG pH (7.35-7.45) ABG pCO2 (35-45) mmHg ABG pO2 (83-108) mmHg ABG HCO3 (21-25) mmol/L ABG Total CO2 (19-24) mmol/L ABG O2 Saturation (94-97) % ABG Base Excess mmol/L Kin Test FiO2 % Sodium (137-145) mmol/L Potassium (3.5-5.1) mmol/L Chloride (98-107) mmol/L Carbon Dioxide (22-30) mmol/L Anion Gap mmol/L BUN (9-20) mg/dL Creatinine (0.66-1.25) mg/dL Est GFR (CKD-EPI)AfAm (>60 ml/min/1.73 sqM) Est GFR (CKD-EPI)NonAf (>60 ml/min/1.73 sqM) Glucose (74-99) mg/dL Plasma Lactic Acid Anthony (0.7-2.0) mmol/L Calcium (8.4-10.2) mg/dL Magnesium (1.6-2.3) mg/dL Total Bilirubin (0.2-1.3) mg/dL AST (17-59) U/L ALT (4-49) U/L Alkaline Phosphatase (38-126) U/L Lactate Dehydrogenase (313-618) U/L C-Reactive Protein (<1.0) mg/dL Total Protein (6.3-8.2) g/dL Albumin (3.5-5.0) g/dL Urine Color Light Yellow Urine Appearance Clear (Clear) Urine pH 5.0 (5.0-8.0) Ur Specific [place] 1.009 (1.001-1.035) Urine Protein 1+ H (Negative) Urine Glucose (UA) Negative (Negative) Urine Ketones Negative (Negative) Urine Blood Negative (Negative) Urine Nitrite Negative (Negative) Urine Bilirubin Negative (Negative) Urine Urobilinogen <2.0 (<2.0) mg/dL Ur Leukocyte Esterase Negative (Negative) Urine WBC 2 (0-5) /hpf Urine Bacteria Rare H (None) /hpf Urine Mucus Rare H (None) /hpf 11/13/20 11/13/20 11/13/20 Range/Units 08:05 08:05 09:50 WBC (3.8-10.6) k/uL RBC (4.30-5.90) m/uL Hgb (13.0-17.5) gm/dL Hct (39.0-53.0) % MCV (80.0-100.0) fL MCH (25.0-35.0) pg MCHC (31.0-37.0) g/dL RDW (11.5-15.5) % Plt Count (150-450) k/uL MPV Neutrophils % % Lymphocytes % % Monocytes % % Eosinophils % % Basophils % % Neutrophils # (1.3-7.7) k/uL Lymphocytes # (1.0-4.8) k/uL Monocytes # (0-1.0) k/uL Eosinophils # (0-0.7) k/uL Basophils # (0-0.2) k/uL Hypochromasia Anisocytosis PT (9.0-12.0) sec INR (<1.2) APTT (22.0-30.0) sec Sample Site r rad ABG pH 7.34 L (7.35-7.45) ABG pCO2 42 (35-45) mmHg ABG pO2 69 L (83-108) mmHg ABG HCO3 23 (21-25) mmol/L ABG Total CO2 24 (19-24) mmol/L ABG O2 Saturation 93.7 L (94-97) % ABG Base Excess -3.1 mmol/L Kin Test Yes FiO2 28 % Sodium 141 (137-145) mmol/L Potassium 4.5 (3.5-5.1) mmol/L Chloride 108 H (98-107) mmol/L Carbon Dioxide 22 (22-30) mmol/L Anion Gap 11 mmol/L BUN 103 H* (9-20) mg/dL Creatinine 3.27 H (0.66-1.25) mg/dL Est GFR (CKD-EPI)AfAm 21 (>60 ml/min/1.73 sqM) Est GFR (CKD-EPI)NonAf 18 (>60 ml/min/1.73 sqM) Glucose 145 H (74-99) mg/dL Plasma Lactic Acid Anthony <0.5 L (0.7-2.0) mmol/L Calcium 9.0 (8.4-10.2) mg/dL Magnesium 2.2 (1.6-2.3) mg/dL Total Bilirubin 0.4 (0.2-1.3) mg/dL AST 22 (17-59) U/L ALT 16 (4-49) U/L Alkaline Phosphatase 112 (38-126) U/L Lactate Dehydrogenase 523 (313-618) U/L C-Reactive Protein 7.1 H (<1.0) mg/dL Total Protein 6.3 (6.3-8.2) g/dL Albumin 3.3 L (3.5-5.0) g/dL Urine Color Urine Appearance (Clear) Urine pH (5.0-8.0) Ur Specific [place] (1.001-1.035) Urine Protein (Negative) Urine Glucose (UA) (Negative) Urine Ketones (Negative) Urine Blood (Negative) Urine Nitrite (Negative) Urine Bilirubin (Negative) Urine Urobilinogen (<2.0) mg/dL Ur Leukocyte Esterase (Negative) Urine WBC (0-5) /hpf Urine Bacteria (None) /hpf Urine Mucus (None) /hpf - Radiology Data Radiology results: image reviewed (Chest x-ray shows a sliver and perihilar infiltrates, worse on the right.) Disposition Clinical Impression: Altered mental status, Pneumonia Disposition: ADMITTED IP TO THIS HOSP Is patient prescribed a controlled substance at d/c from ED?: No Referrals: Chance Flowers MD [Primary Care Provider] - 1-2 days Decision Time: 09:41
[2020-11-13 08:45] LABS: Anisocytosis Slight; Basophils % (A) 0 %; Eosinophils # (A) 0.2 k/uL (0-0.7); Eosinophils % (A) 2 %; HCT 24.8 % (39.0-53.0); HGB 7.5 gm/dL (13.0-17.5); Hypochromasia Slight; Lymphocytes # (A) 0.6 k/uL (1.0-4.8); Lymphocytes % (A) 7 %; MCH 27.5 pg (25.0-35.0); MCHC 30.2 g/dL (31.0-37.0); Mean Platelet Volume 7.4; Monocytes # (A) 0.6 k/uL (0-1.0); Monocytes % (A) 7 %; Neutrophils # (A) 7.8 k/uL (1.3-7.7); Neutrophils % (A) 83 %; Platelet Count 304 k/uL (150-450); RBC 2.73 m/uL (4.30-5.90); RDW 17.2 % (11.5-15.5); WBC 9.4 k/uL (3.8-10.6)
[2020-11-13 08:50] LABS: INR 0.9 (<1.2); Partial Thromboplastin Time 26.8 sec (22.0-30.0); Prothrombin Time 10.2 sec (9.0-12.0)
[2020-11-13 08:52] LABS: Albumin 3.3 g/dL (3.5-5.0); Magnesium 2.2 mg/dL (1.6-2.3); Potassium 4.5 mmol/L (3.5-5.1); Total Bilirubin 0.4 mg/dL (0.2-1.3); Total Protein 6.3 g/dL (6.3-8.2)
[2020-11-13 09:00] LABS: Appearance,Urine Clear (Clear); Bacteria,Urine Rare /hpf; Bilirubin,Urine Negative (Negative); Blood,Urine Negative (Negative); Color,Urine Light Yellow; Glucose,Urine (UA) Negative (Negative); Ketones,Urine Negative (Negative); Leukocyte Esterase,Urine Negative (Negative); Mucus,Urine Rare /hpf; Nitrite,Urine Negative (Negative); Protein,Urine 1+ (Negative); Specific Gravity,Urine 1.009 (1.001-1.035); Urobilinogen,Urine <2.0 mg/dL (<2.0); WBC,Urine 2 /hpf (0-5)
[2020-11-13 09:20] LABS: C Reactive Protein 7.1 mg/dL (<1.0)
--- NOTE | 2020-11-13 09:22 | XR ---
EXAMINATION TYPE: XR chest 1V portable DATE OF EXAM: 11/13/2020 HISTORY: Shortness of breath. COMPARISON: 11/11/2020 TECHNIQUE: Single view of the chest is submitted. FINDINGS: Demonstrated are scattered senescent parenchymal change. Perihilar and basilar infiltrates suggest underlying pneumonia. Correlate clinically. The heart is stable. Hilar and mediastinal structures are within normal limits. Degenerative changes are seen of the dorsal spine. IMPRESSION: 1. Perihilar and basilar infiltrates suggest underlying pneumonia. Correlate clinically.
[2020-11-13] MEDS ORDERED: PIPERACILLIN-TAZOBACTAM 3.375 GM in SODIUM CHLORIDE 0.9% 100 ML IVPB STA (09:45)
[2020-11-13] MEDS ORDERED: PNEUMONIA PROTOCOL UTILIZED 1 EACH MISC PO PRN (09:45)
[2020-11-13] MEDS ORDERED: AZITHROMYCIN 500 MG in SODIUM CHLORIDE 0.9% 250 ML IVPB STA (09:45)
[2020-11-13 10:00] LABS: ABG Base Excess -3.1 mmol/L; ABG HCO3 23 mmol/L (21-25); ABG Oxygen Saturation 93.7 % (94-97); ABG PCO2 42 mmHg (35-45); ABG PH 7.34 (7.35-7.45); ABG PO2 69 mmHg (83-108); ABG TCO2 24 mmol/L (19-24); Allen Test Performed? Yes
--- NOTE | 2020-11-13 10:56 | P.HPIM ---
History of Present Illness H&P Date: 11/13/20 Chief Complaint: Altered mental status This is a 70-year-old male with very complex past medical history noted below that was discharged from the hospital yesterday and went to [facility]. Patient was sent back this morning with altered mental status and confusion. His at bedside is providing history. She informed me that she saw him last night when he arrived to [facility] and patient was doing fairly well. He was in his normal condition at this morning he was found to be sleepy and hardly arousable. Patient was obtunded and only minimally responsive when I saw him. He answers simple questions but does not converse or talk to me. There is no neurological focal deficits noted. Patient was evaluated in the ER and a stat computed tomography scan of the head was ordered and is still pending. I also ordered a stat blood gas that showed no evidence of CO2 retention. Patient will be admitted to the hospital for further management. 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, chronic venous ulcer left anterior lower leg-treated in [facility], sepsis from L leg wound, chronic anemia, hyperkalemia, CKD-spouse states his kidneys function at 28%, DELVIN with Cpap, possible starting of dementia, confusion at times at night, bilateral lower leg varicosities, umbilical hernia, Hpylori, ambulates very little with walker and mostly wheelchair bound, recent UTI History of Any Multi-Drug Resistant Organisms: ESBL, VRE Date of last positivie culture/infection: 11/28/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 Past Anesthesia/Blood Transfusion Reactions: No Reported Reaction Date of Last Stent Placement:: 10/2015 Past Psychological History: No Psychological Hx Reported Smoking Status: Never smoker Past Alcohol Use History: None Reported Past Drug Use History: None Reported - Past Family History Father Family Medical History: COPD Additional Family Medical History / Comment(s): AT AGE 64- EMPHYSEMA(SMOKER) Mother Family Medical History: Diabetes Mellitus, Hypertension Additional Family Medical History / Comment(s): LUPUS, LEG AMPUTATED. MOM IN HER 60'S Medications and Allergies Home Medications Medication Instructions Recorded Confirmed Type allopurinoL [Zyloprim] 100 mg PO DAILY@0800 04/22/15 11/13/20 History Fish Oil/Dha/Epa [Fish Oil 1,200 1 cap PO DAILY@1700 09/06/15 11/13/20 History mg Fish Oil] Ferrous Sulfate [Iron (65 MG 325 mg PO DAILY@1700 10/23/15 11/13/20 History Elemental)] Atorvastatin [Lipitor] 20 mg PO HS@2100 12/09/19 11/13/20 History Aspirin EC [Ecotrin Low Dose] 81 mg PO DAILY@1700 08/08/20 11/13/20 History Pantoprazole [Protonix] 40 mg PO DAILY@0600 08/08/20 11/13/20 History Epoetin Avelino-Epbx [Retacrit] 10,000 unit SQ TU@1700 09/07/20 11/13/20 History Magnesium Hydroxide [Milk of 7,200 mg PO DAILY PRN 09/07/20 11/13/20 History Magnesia Concentrate] bisacodyL [Dulcolax] 10 mg RECTAL DAILY PRN 09/07/20 11/13/20 History cloNIDine HCL [Catapres] 0.1 mg PO TID@0800,1200,1700 09/07/20 11/13/20 History Ipratropium-Albuterol Nebulize 3 ml INHALATION RT-TID@08,12,17 11/06/20 11/13/20 History [Duoneb 0.5 mg-3 mg/3 ml Soln] HYDROcodone/APAP 10-325MG [[place] 1 tab PO TID PRN 3 Days #9 tab 11/12/20 11/13/20 Rx 10-325] Insulin Glargine,Hum.rec.anlog 20 unit SQ HS@2100 #0 11/12/20 11/13/20 Rx [Lantus Solostar] Lidocaine 5% Patch [Lidoderm 5% 2 patch TOPICAL DAILY patch 11/12/20 11/13/20 Rx Patch] Cholecalciferol [Vitamin D3 (25 25 mcg PO DAILY@1700 11/13/20 11/13/20 History Mcg = 1000 Iu)] Furosemide [Lasix] 60 mg PO BID@0600,1400 11/13/20 11/13/20 History Gabapentin [Neurontin] 300 mg PO BID@0800,2100 11/13/20 11/13/20 History Isosorbide Mononitrate ER [Imdur] 30 mg PO DAILY@0800 11/13/20 11/13/20 History Labetalol [Trandate] 200 mg PO BID@0800,1700 11/13/20 11/13/20 History Na Phos,M-B/Na Phos,Di-Ba [Fleet 133 ml RECTAL ONCE PRN 11/13/20 11/13/20 History Adult] Sodium Bicarbonate Tab 650 mg PO TID@0800,1200,1700 11/13/20 11/13/20 History amLODIPine [Norvasc] 10 mg PO DAILY 11/13/20 11/13/20 History hydrALAZINE HCL [Apresoline] 50 mg PO BID@0800,1700 11/13/20 11/13/20 History polyethylene glycoL 3350 [Miralax] 17 gm PO DAILY@0800 11/13/20 11/13/20 History Allergies Allergy/AdvReac Type Severity Reaction Status Date / Time aspirin [From Anacin] Allergy Rash/Hives Verified 11/13/20 09:07 (Dulce brand ok) sulfamethoxazole AdvReac affects Verified 11/13/20 09:07 [From Bactrim] kidneys trimethoprim [From Bactrim] AdvReac Unknown Verified 11/13/20 09:07 Physical Exam Vitals: Vital Signs Temp Pulse Resp BP Pulse Ox 11/13/20 07:50 98.8 F 77 18 131/68 94 L Intake and Output 11/12/20 11/13/20 11/13/20 22:59 06:59 14:59 Other: Weight 153.314 kg General: The patient is confused. He appeared lethargic but easily arousable. He answers simple questions. Eye: there is normal conjunctiva bilaterally. Neck: The neck is supple, there is no JVD. Cardiovascular: Normal S1-S2, no S3-S4, no murmurs. Respiratory: Lungs clear to auscultation bilaterally Gastrointestinal: Abdomen is soft, nontender. There is a large ventral hernia Musculoskeletal: There is no pedal edema. Skin: Skin is warm and dry Results CBC & Chem 7: 11/13/20 08:05 11/13/20 08:05 Labs: Abnormal Lab Results - Last 24 Hours (Table) 11/13/20 11/13/20 11/13/20 Range/Units 08:05 08:05 08:05 RBC 2.73 L (4.30-5.90) m/uL Hgb 7.5 L (13.0-17.5) gm/dL Hct 24.8 L (39.0-53.0) % MCHC 30.2 L (31.0-37.0) g/dL RDW 17.2 H (11.5-15.5) % Neutrophils # 7.8 H (1.3-7.7) k/uL Lymphocytes # 0.6 L (1.0-4.8) k/uL ABG pH (7.35-7.45) ABG pO2 (83-108) mmHg ABG O2 Saturation (94-97) % Chloride 108 H (98-107) mmol/L BUN 103 H* (9-20) mg/dL Creatinine 3.27 H (0.66-1.25) mg/dL Glucose 145 H (74-99) mg/dL Plasma Lactic Acid Anthony (0.7-2.0) mmol/L C-Reactive Protein 7.1 H (<1.0) mg/dL Albumin 3.3 L (3.5-5.0) g/dL Urine Protein 1+ H (Negative) Urine Bacteria Rare H (None) /hpf Urine Mucus Rare H (None) /hpf 11/13/20 11/13/20 Range/Units 08:05 09:50 RBC (4.30-5.90) m/uL Hgb (13.0-17.5) gm/dL Hct (39.0-53.0) % MCHC (31.0-37.0) g/dL RDW (11.5-15.5) % Neutrophils # (1.3-7.7) k/uL Lymphocytes # (1.0-4.8) k/uL ABG pH 7.34 L (7.35-7.45) ABG pO2 69 L (83-108) mmHg ABG O2 Saturation 93.7 L (94-97) % Chloride (98-107) mmol/L BUN (9-20) mg/dL Creatinine (0.66-1.25) mg/dL Glucose (74-99) mg/dL Plasma Lactic Acid Anthony <0.5 L (0.7-2.0) mmol/L C-Reactive Protein (<1.0) mg/dL Albumin (3.5-5.0) g/dL Urine Protein (Negative) Urine Bacteria (None) /hpf Urine Mucus (None) /hpf Assessment and Plan Assessment: This is a 70-year-old male with a complex past medical history noted below Presented to the emergency room from [facility] with worsening confusion. Patient was evaluated in the ER and will be admitted to the hospital for further management of his medical problems noted below 1. Altered mental status, exact etiology unclear. Computed tomography scan of the head ordered stat and pending. Blood gas showed no evidence of CO2 retention. No evidence of UTI as urinalysis is clean. I would order ammonia level 2. Bibasilar infiltrates, noted on chest x-ray. Most likely represent atelectasis. Doubt pneumonia clinically. No documented fever or leukocytosis. Patient was started on antibiotic by ER staff empirically. Pro-calcitonin ordered. 3. Chronic diastolic heart failure with no evidence of exacerbation at this point. Patient was treated with IV Lasix during his last hospital stay and was discharged 1 day prior to his current presentation. We will continue home dose of Lasix. 4. 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 We will continue to monitor closely. 5. Chronic medical problems: Essential hypertension, hyperlipidemia, anemia of chronic disease, chronic back pain, chronic venous insufficiency 6. CODE STATUS, patient is DO NOT RESUSCITATE/DO NOT INTUBATE
--- NOTE | 2020-11-13 10:57 | P.PN ---
Progress Note - Text Progress Note Date: 11/13/20 Advanced Care Planning Active Diagnosis: Altered mental status Persons present: Patient's Summary: Discussed the patient's goals of care in detail. I explained to her the meaning of cardiac resuscitation including chest compression and or electric shock if needed. We also discussed intubation and mechanical ventilation. She would like her to be a no code. Time spent: Total time spent face to face in education and discussion directly related to advanced care plannin minutes
--- NOTE | 2020-11-13 11:10 | CT ---
EXAMINATION TYPE: CT brain wo con DATE OF EXAM: 11/13/2020 COMPARISON: 12/16/2018 INDICATION: AMS DLP: 1153.4 mGycm, Automated exposure control for dose reduction was used. CONTRAST: None CT of the brain is performed utilizing 3 mm thick sections through the posterior fossa and 3 mm thick sections through the remaining calvarium. Study is performed within 24 hours of arrival to the hosp [place]. No abnormal hyperdensity is present to suggest an acute intracranial hemorrhage. No mass lesion is evident. No acute infarcts are evident. Ventricles and sulci are mild the prominent for the patient age. Paranasal sinuses and mastoid air cells within the [id number] are clear. IMPRESSIONS: 1. No acute intracranial process. 2. Mild age-related atrophy
[2020-11-13] MEDS: cloNIDine HCL 0.1 MG TAB PO SCH ×2 (12:48→17:20)
[2020-11-13] MEDS: SODIUM BICARBONATE TAB 650 MG TAB PO SCH ×2 (12:48→17:20)
[2020-11-13 12:56] LABS: Glucose,Whole Blood 145 mg/dL (75-99)
[2020-11-13] MEDS: INSULIN ASPART (NovoLOG) 100 UNIT/ML VIAL SQ SCH ×3 (12:59→21:06)
[2020-11-13] MEDS: IPRATROPIUM-ALBUTEROL 3 ML NEB INHALATION SCH ×2 (15:48→20:18)
[2020-11-13] MEDS: PIPERACILLIN-TAZOBACTAM 3.375 GM in SODIUM CHLORIDE 0.9% 100 ML IVPB SCH (16:58)
[2020-11-13] MEDS ORDERED: ASPIRIN 81 MG PO SCH (17:00)
[2020-11-13] MEDS ORDERED: FERROUS SULFATE 325 MG TAB PO SCH (17:00)
[2020-11-13] MEDS ORDERED: NON FORMULARY DRUG (Fish Oil/Dha/Epa [Fish Oil 1,200 Mg Fish Oil] 1 EACH Capsule) PO SCH (17:00)
[2020-11-13] MEDS: FUROSEMIDE 20 MG TAB PO SCH (17:20)
[2020-11-13] MEDS: hydrALAZINE HCL 50 MG TAB PO SCH (17:21)
[2020-11-13] MEDS: LABETALOL 200 MG TAB PO SCH (17:21)
[2020-11-13 17:32] LABS: Glucose,Whole Blood 156 mg/dL (75-99)
[2020-11-13 19:59] LABS: Glucose,Whole Blood 152 mg/dL (75-99)
[2020-11-13] MEDS ORDERED: ATORVASTATIN 20 MG TAB PO SCH (21:00)
[2020-11-14] MEDS: PIPERACILLIN-TAZOBACTAM 3.375 GM in SODIUM CHLORIDE 0.9% 100 ML IVPB SCH ×2 (01:02→08:14)
[2020-11-14 04:03] LABS: Ferritin 557.2 ng/mL (22.0-322.0)
[2020-11-14] MEDS ORDERED: PANTOPRAZOLE 40 MG TABLET PO SCH (06:00)
[2020-11-14] MEDS: FUROSEMIDE 20 MG TAB PO SCH (06:09)
[2020-11-14 06:10] LABS: Glucose,Whole Blood 145 mg/dL (75-99)
[2020-11-14] MEDS: INSULIN ASPART (NovoLOG) 100 UNIT/ML VIAL SQ SCH ×2 (06:12→11:56)
--- NOTE | 2020-11-14 07:02 | XR ---
EXAMINATION TYPE: XR chest 1V portable DATE OF EXAM: 11/14/2020 COMPARISON: 11/13/2020 HISTORY: Shortness of breath. TECHNIQUE: Single frontal view of the chest is obtained. FINDINGS: Minor fissure is slightly thickened and this may be due to trace fissural pleural effusion . Left vertebral cardiac space is not well visualized in this could be due to patient's body habitus or consolidation/pneumonia. No significant pleural effusion or pneumothorax. Remainder of the lung pa renchyma is clear. Heart and mediastinum are within normal limits. IMPRESSION: No significant change. Pneumonia versus improving CHF.
[2020-11-14] MEDS ORDERED: ISOSORBIDE MONONITRATE ER 30 MG TAB.ER.24H PO SCH (08:00)
[2020-11-14] MEDS ORDERED: polyethylene glycoL 3350 17 GM POWD.PACK PO SCH (08:00)
[2020-11-14] MEDS ORDERED: allopurinoL 100 MG TAB PO SCH (08:00)
[2020-11-14] MEDS: SODIUM BICARBONATE TAB 650 MG TAB PO SCH ×2 (08:12→11:56)
[2020-11-14] MEDS: LABETALOL 200 MG TAB PO SCH (08:12)
[2020-11-14] MEDS: hydrALAZINE HCL 50 MG TAB PO SCH (08:12)
[2020-11-14] MEDS: cloNIDine HCL 0.1 MG TAB PO SCH ×2 (08:12→11:56)
[2020-11-14] MEDS: IPRATROPIUM-ALBUTEROL 3 ML NEB INHALATION SCH ×2 (08:38→11:30)
[2020-11-14] MEDS ORDERED: LIDOCAINE 5% PATCH TOPICAL SCH (09:00)
[2020-11-14] MEDS ORDERED: amLODIPine 10 MG TAB PO SCH (09:00)
[2020-11-14 09:14] LABS: Calcium 9.6 mg/dL (8.4-10.2); Potassium 4.7 mmol/L (3.5-5.1)
[2020-11-14 09:22] LABS: Anisocytosis Slight; Basophils % (A) 0 %; Eosinophils # (A) 0.3 k/uL (0-0.7); Eosinophils % (A) 3 %; HGB 8.2 gm/dL (13.0-17.5); Hypochromasia Slight; Lymphocytes # (A) 0.6 k/uL (1.0-4.8); Lymphocytes % (A) 6 %; MCHC 31.6 g/dL (31.0-37.0); MCV 91.5 fL (80.0-100.0); Mean Platelet Volume 7.4; Monocytes # (A) 0.6 k/uL (0-1.0); Monocytes % (A) 6 %; Neutrophils # (A) 8.6 k/uL (1.3-7.7); Neutrophils % (A) 84 %; Platelet Count 283 k/uL (150-450); RBC 2.84 m/uL (4.30-5.90); WBC 10.2 k/uL (3.8-10.6)
--- NOTE | 2020-11-14 10:24 | P.DS ---
Providers Date of admission: 11/13/20 09:45 Expected date of discharge: 11/14/20 Attending physician: Kerline Remy Primary care physician: Chance Flowers [facility] Course: This is a 70-year-old male with a complex past medical history noted below Presented to the emergency room from [facility] with worsening confusion. Patient was evaluated in the ER and will be admitted to the hospital for further management of his medical problems noted below 1. Altered mental status, in the hospital, patient was mostly lethargic but was never confused. He was able to answer questions appropriately on presentation and his overall condition improved significantly and he was back to his baseline today. Computed tomography scan of the head ordered stat and pending. Blood gas showed no evidence of CO2 retention. No evidence of UTI as urinalysis is clean. Ammonia level was normal. I would discontinue gabapentin and no core as that may be contributing to his lethargy 2. Bibasilar infiltrates, noted on chest x-ray. Most likely represent atelectasis. We will finish short course of antibiotic with Augmentin as well as calcitonin was slightly elevated 3. Chronic diastolic heart failure with no evidence of exacerbation at this point. Patient was treated with IV Lasix during his last hospital stay and was discharged 1 day prior to his current presentation. We will continue home dose of Lasix. 4. 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 Chronic medical problems: Essential hypertension, hyperlipidemia, anemia of chronic disease, chronic back pain, chronic venous insufficiency Patient will be discharged back to [facility] in a stable condition. Plan - Discharge Summary Discharge Rx Participant: No New Discharge Prescriptions: New Amoxic-Pot Clav 500-125 mg [Augmentin 500-125 mg] 1 tab PO Q12HR 4 Days #8 tab Continue allopurinoL [Zyloprim] 100 mg PO DAILY@0800 Fish Oil/Dha/Epa [Fish Oil 1,200 mg Fish Oil] 1 cap PO DAILY@1700 Ferrous Sulfate [Iron (65 MG Elemental)] 325 mg PO DAILY@1700 Atorvastatin [Lipitor] 20 mg PO HS@2100 Aspirin EC [Ecotrin Low Dose] 81 mg PO DAILY@1700 Pantoprazole [Protonix] 40 mg PO DAILY@0600 Magnesium Hydroxide [Milk of Magnesia Concentrate] 7,200 mg PO DAILY PRN PRN Reason: Constipation bisacodyL [Dulcolax] 10 mg RECTAL DAILY PRN PRN Reason: Constipation cloNIDine HCL [Catapres] 0.1 mg PO TID@0800,1200,1700 Epoetin Avelino-Epbx [Retacrit] 10,000 unit SQ TU@1700 Lidocaine 5% Patch [Lidoderm 5% Patch] 2 patch TOPICAL DAILY patch Insulin Glargine,Hum.rec.anlog [Lantus Solostar] 20 unit SQ HS@2100 #0 Labetalol [Trandate] 200 mg PO BID@0800,1700 Ipratropium-Albuterol Nebulize [Duoneb 0.5 mg-3 mg/3 ml Soln] 3 ml INHALATION RT-TID@08,12,17 Na Phos,M-B/Na Phos,Di-Ba [Fleet Adult] 133 ml RECTAL ONCE PRN PRN Reason: Constipation Sodium Bicarbonate Tab 650 mg PO TID@0800,1200,1700 Furosemide [Lasix] 60 mg PO BID@0600,1400 hydrALAZINE HCL [Apresoline] 50 mg PO BID@0800,1700 amLODIPine [Norvasc] 10 mg PO DAILY Isosorbide Mononitrate ER [Imdur] 30 mg PO DAILY@0800 polyethylene glycoL 3350 [Miralax] 17 gm PO DAILY@0800 Cholecalciferol [Vitamin D3 (25 Mcg = 1000 Iu)] 25 mcg PO DAILY@1700 Discontinued Gabapentin [Neurontin] 300 mg PO BID@0800,2100 HYDROcodone/APAP 10-325MG [Bard 10-325] 1 tab PO TID PRN 3 Days #9 tab PRN Reason: Pain Discharge Medication List allopurinoL [Zyloprim] 100 mg PO DAILY@0800 04/22/15 [History] Fish Oil/Dha/Epa [Fish Oil 1,200 mg Fish Oil] 1 cap PO DAILY@1700 09/06/15 [History] Ferrous Sulfate [Iron (65 MG Elemental)] 325 mg PO DAILY@17010/23/15 [History] Atorvastatin [Lipitor] 20 mg PO HS@2100 12/09/19 [History] Aspirin EC [Ecotrin Low Dose] 81 mg PO DAILY@17008/08/20 [History] Pantoprazole [Protonix] 40 mg PO DAILY@0600 08/08/20 [History] Epoetin Avelino-Epbx [Retacrit] 10,000 unit SQ TU@1700 09/07/20 [History] Magnesium Hydroxide [Milk of Magnesia Concentrate] 7,200 mg PO DAILY PRN 09/07/20 [History] bisacodyL [Dulcolax] 10 mg RECTAL DAILY PRN 09/07/20 [History] cloNIDine HCL [Catapres] 0.1 mg PO TID@0800,1200,1700 09/07/20 [History] Ipratropium-Albuterol Nebulize [Duoneb 0.5 mg-3 mg/3 ml Soln] 3 ml INHALATION RT-TID@08,12,17 11/06/20 [History] Insulin Glargine,Hum.rec.anlog [Lantus Solostar] 20 unit SQ HS@2100 #0 11/12/20 [Rx] Lidocaine 5% Patch [Lidoderm 5% Patch] 2 patch TOPICAL DAILY patch 11/12/20 [Rx] Cholecalciferol [Vitamin D3 (25 Mcg = 1000 Iu)] 25 mcg PO DAILY@169911/13/20 [History] Furosemide [Lasix] 60 mg PO BID@0600,1400 11/13/20 [History] Isosorbide Mononitrate ER [Imdur] 30 mg PO DAILY@0800 11/13/20 [History] Labetalol [Trandate] 200 mg PO BID@0800,1700 11/13/20 [History] Na Phos,M-B/Na Phos,Di-Ba [Fleet Adult] 133 ml RECTAL ONCE PRN 11/13/20 [History] Sodium Bicarbonate Tab 650 mg PO TID@0800,1200,1700 11/13/20 [History] amLODIPine [Norvasc] 10 mg PO DAILY 11/13/20 [History] hydrALAZINE HCL [Apresoline] 50 mg PO BID@0800,1700 11/13/20 [History] polyethylene glycoL 3350 [Miralax] 17 gm PO DAILY@0800 11/13/20 [History] Amoxic-Pot Clav 500-125 mg [Augmentin 500-125 mg] 1 tab PO Q12HR 4 Days #8 tab 11/14/20 [Rx] Follow up Appointment(s)/Referral(s): Chance Flowers MD [Primary Care Provider] - 1-2 days Discharge Disposition: TRANSFER TO SNF/ECF
[2020-11-14 11:50] LABS: Glucose,Whole Blood 225 mg/dL (75-99)
[2020-11-14 11:54] VITALS: BP 122/55; PULSE 71; RESP 22; TEMP 98
[2020-11-15] MEDS ORDERED: AZITHROMYCIN 500 MG in SODIUM CHLORIDE 0.9% 250 ML IVPB SCH (09:00)
== END 2020-11-14 14:55 | DRG 292 ==
LOC: EC 07:47 → 4SSUR 09:45 → 3SCARD 15:05
PROVIDERS: ADMIT Internal Medicine; ATTEND Internal Medicine
DX: I13.0 Hypertensive heart and chronic kidney disease with heart failure and stage 1 through stage 4 chronic kidney disease, or unspecified chronic kidney disease (principal); I50.32 Chronic diastolic (congestive) heart failure; J98.11 Atelectasis; N18.4 Chronic kidney disease, stage 4 (severe); J44.0 Chronic obstructive pulmonary disease with (acute) lower respiratory infection; I87.2 Venous insufficiency (chronic) (peripheral); E11.22 Type 2 diabetes mellitus with diabetic chronic kidney disease; E78.5 Hyperlipidemia, unspecified; D63.1 Anemia in chronic kidney disease; Z20.822 Contact with and (suspected) exposure to COVID-19; G89.29 Other chronic pain; Z87.01 Personal history of pneumonia (recurrent); J44.9 Chronic obstructive pulmonary disease, unspecified; Z66 Do not resuscitate; Z79.4 Long term (current) use of insulin; Z79.82 Long term (current) use of aspirin; Z79.899 Other long term (current) drug therapy; Z82.49 Family history of ischemic heart disease and other diseases of the circulatory system; Z82.5 Family history of asthma and other chronic lower respiratory diseases; Z83.3 Family history of diabetes mellitus; M54.9 Dorsalgia, unspecified; I25.10 Atherosclerotic heart disease of native coronary artery without angina pectoris; Z98.42 Cataract extraction status, left eye; Z98.41 Cataract extraction status, right eye; Z99.3 Dependence on wheelchair
CPT/HCPCS: 36415; 36600; 70450; 71045; 80048; 80053; 81001; 82140; 82150; 82728; 82805; 83605; 83615; 83690; 83735; 83880; 84145; 85025; 85610; 85730; 86140; 87040; 87635; 93005; 94640; 94760; 99285

== ENCOUNTER 2020-12-05 16:34 | Inpatient (IN) | payer MEDICARE, BC ==
--- NOTE | 2020-12-05 17:18 | ED ---
General Adult HPI - General Chief complaint: Recheck/Abnormal Lab/Rx Stated complaint: AMS Time Seen by Provider: 12/05/20 17:00 Source: patient, EMS Mode of arrival: EMS - History of Present Illness Initial comments: This is a 70-year-old male with a history of CK 80, hypertension, hyperlipidemia, chronic venous stasis ulcerations, chronic debility who presents emergent department for mental status changes, fatigue, and decreased oral intake for the last 3 days or so. The patient was sent in from [facility] at the request of Dr. dey for possible nephrology consultation. The patient states that he's been getting episodes of nausea and vomiting over the last few days as well as having some abdominal discomfort however states this is not constant and only occurs when he is having the vomiting. He otherwise denies any acute complaints. Denies any fevers, chills, chest pain, shortness of breath. No diarrhea. No focal weakness. The patient is alert and oriented 3. He states that he was sent here because he is been getting sick for the last few days. Of note the patient was recently hospitalized for similar complaints. Workup here was mostly unremarkable. He was started on antibiotics for questionable pneumonia and sent back to [facility]. - Related Data Home Medications Medication Instructions Recorded Confirmed allopurinoL [Zyloprim] 100 mg PO DAILY@0800 04/22/15 12/05/20 Fish Oil/Dha/Epa [Fish Oil 1,200 1 cap PO DAILY@169909/06/15 12/05/20 mg Fish Oil] Ferrous Sulfate [Iron (65 MG 325 mg PO DAILY@169910/23/15 12/05/20 Elemental)] Atorvastatin [Lipitor] 20 mg PO HS@2100 12/09/19 12/05/20 Aspirin EC [Ecotrin Low Dose] 81 mg PO DAILY@169908/08/20 12/05/20 Pantoprazole [Protonix] 40 mg PO DAILY@0608/08/20 12/05/20 Epoetin Avelino-Epbx [Retacrit] 20,000 unit SQ TU@169909/07/20 12/05/20 Magnesium Hydroxide [Milk of 7,200 mg PO DAILY PRN 09/07/20 12/05/20 Magnesia Concentrate] bisacodyL [Dulcolax] 10 mg RECTAL DAILY PRN 09/07/20 12/05/20 cloNIDine HCL [Catapres] 0.1 mg PO TID@0800,1200,1700 09/07/20 12/05/20 Ipratropium-Albuterol Nebulize 3 ml INHALATION RT-TID@08,12,17 11/06/20 12/05/20 [Duoneb 0.5 mg-3 mg/3 ml Soln] Cholecalciferol [Vitamin D3 (25 25 mcg PO DAILY@1700 11/13/20 12/05/20 Mcg = 1000 Iu)] Furosemide [Lasix] 40 mg PO DAILY@1400 11/13/20 12/05/20 Isosorbide Mononitrate ER [Imdur] 30 mg PO DAILY@0800 11/13/20 12/05/20 Labetalol [Trandate] 200 mg PO BID@0800,1700 11/13/20 12/05/20 Na Phos,M-B/Na Phos,Di-Ba [Fleet 133 ml RECTAL DAILY PRN 11/13/20 12/05/20 Adult] Sodium Bicarbonate Tab 650 mg PO TID@0800,1200,1700 11/13/20 12/05/20 amLODIPine [Norvasc] 10 mg PO DAILY@0800 11/13/20 12/05/20 hydrALAZINE HCL [Apresoline] 50 mg PO BID@0800,1700 11/13/20 12/05/20 polyethylene glycoL 3350 [Miralax] 17 gm PO DAILY@0800 11/13/20 12/05/20 Furosemide [Lasix] 60 mg PO DAILY@0600 12/05/20 12/05/20 Glucerna Shake 1 can PO TID@0800,1200,1700 12/05/20 12/05/20 Liquacel 30 mg PO BID@0800,1700 12/05/20 12/05/20 Mag Hydrox/Al Hydrox/Simeth 30 ml PO Q6H PRN 12/05/20 12/05/20 [Maalox] Previous Rx's Medication Instructions Recorded Insulin Glargine,Hum.rec.anlog 20 unit SQ HS@2100 #0 11/12/20 [Lantus Solostar] Lidocaine 5% Patch [Lidoderm 5% 2 patch TOPICAL DAILY patch 11/12/20 Patch] Allergies Allergy/AdvReac Type Severity Reaction Status Date / Time aspirin [From Anacin] Allergy Rash/Hives Verified 12/05/20 16:53 (Dulce brand ok) sulfamethoxazole AdvReac affects Verified 12/05/20 16:53 [From Bactrim] kidneys trimethoprim [From Bactrim] AdvReac Unknown Verified 12/05/20 16:53 Review of Systems ROS Statement: Those systems with pertinent positive or pertinent negative responses have been documented in the HPI. ROS Other: All systems not noted in ROS Statement are negative. Past Medical History Past Medical History: Heart Failure, COPD, Diabetes Mellitus, Hyperlipidemia, Hypertension, Osteoarthritis (OA), Pneumonia, Renal Disease, Sleep Apnea/CPAP/BIPAP, Vascular Disorder Additional Past Medical History / Comment(s): IDDM type II, severe bilateral f eet neuropathy and start of neuropathy bilateral hands, chronic venous ulcer left anterior lower leg-treated in [facility], sepsis from L leg wound, chronic anemia, hyperkalemia, CKD-spouse states his kidneys function at 28%, DELVIN with Cpap, possible starting of dementia, confusion at times at night, bilateral lower leg varicosities, umbilical hernia, Hpylori, ambulates very little with walker and mostly wheelchair bound, recent UTI History of Any Multi-Drug Resistant Organisms: ESBL, VRE Date of last positivie culture/infection: 11/28/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 Past Anesthesia/Blood Transfusion Reactions: No Reported Reaction Date of Last Stent Placement:: 10/2015 Past Psychological History: No Psychological Hx Reported Smoking Status: Never smoker Past Alcohol Use History: None Reported Past Drug Use History: None Reported - Past Family History Father Family Medical History: COPD Additional Family Medical History / Comment(s): AT AGE 64- EMPHYSEMA(SMOKER) Mother Family Medical History: Diabetes Mellitus, Hypertension Additional Family Medical History / Comment(s): LUPUS, LEG AMPUTATED. MOM IN HER 60'S General Exam - General Exam Comments Initial Comments: Constitutional: Awake alert Appears comfortable Head: Normocephalic atraumatic Eyes: no conjunctival injection No scleral icterus EOMI, pupils are 3 mm and reactive bilaterally Neck: No JVD Supple Heart: Regular rate rhythm normal S1-S2 no murmurs Lungs: Clear to auscultation bilaterally No wheezing No rales Abdomen: Soft nondistended and has generalized tenderness to the upper abdomen without rebound or guarding Extremities: There is some mild edema to the bilateral lower extremities with wraps up to the knees DP pulses intact Radial pulses intact Neuro: A&Ox3, the patient is oriented. He is able to hold both of his arms and legs off of the bed however appears generally weak. I would say is 4 out of 5 strength in all extremities. There is no facial droop noted. No focal neurologic deficits Psych: Appropriate mood and affect Course Vital Signs 12/05/20 12/05/20 12/05/20 16:36 16:44 17:44 Temperature 98.1 F Pulse Rate 53 L 64 Respiratory 18 18 Rate Blood Pressure 120/49 122/52 O2 Sat by Pulse 90 L 97 97 Oximetry 12/05/20 12/05/20 19:07 19:20 Temperature Pulse Rate 53 L Respiratory 18 18 Rate Blood Pressure 119/58 O2 Sat by Pulse 98 Oximetry EKG Findings - EKG Comments: EKG Findings:: EKG showing sinus bradycardia with a rate of 52. There is no abnormal ST segment changes. There is a T-wave inversion in lead 3 and aVF. Lead 2 does not appear to have good quality scan. QTC is 405. QRS is normal [place] interval slightly prolonged giving a first-degree AV block. No ectopy. Medical Decision Making - Medical Decision Making This is a 70-year-old male who presents emergency department for increased lethargy, confusion, and refusal to eat. The patient had stable vitals on arrival. Who did not appear to be in any distress. He was awake and alert and oriented 3. No focal neurologic findings on examination. He did have blood work performed that did reveal that he has an acute kidney injury on top of his chronic kidney disease. He was started on gentle fluid hydration. The rest of his blood work was unremarkable. CT of the abdomen did not reveal any acute abdomen is however did reveal bilateral pleural effusions likely related to the patient's history of congestive heart failure. Patient did have evidence for hyperkalemia likely related to his acute kidney injury however no evidence for hyperacute T waves. I did give him a gram of calcium gluconate. Fluid hydration should help to correct this. The patient's can be admitted to the hospital for hydration and nephrology consultation. Poonam except the admission on behalf of Dr. Woods. - Lab Data Result diagrams: 12/05/20 17:44 12/05/20 17:44 Lab Results 12/05/20 12/05/20 12/05/20 Range/Units 17:44 17:44 17:44 WBC 9.8 (3.8-10.6) k/uL RBC 3.38 L (4.30-5.90) m/uL Hgb 9.7 L D (13.0-17.5) gm/dL Hct 29.5 L (39.0-53.0) % MCV 87.3 D (80.0-100.0) fL MCH 28.8 (25.0-35.0) pg MCHC 33.0 (31.0-37.0) g/dL RDW 16.6 H (11.5-15.5) % Plt Count 302 (150-450) k/uL MPV 7.2 Neutrophils % 79 % Lymphocytes % 8 % Monocytes % 7 % Eosinophils % 5 % Basophils % 1 % Neutrophils # 7.8 H (1.3-7.7) k/uL Lymphocytes # 0.8 L (1.0-4.8) k/uL Monocytes # 0.7 (0-1.0) k/uL Eosinophils # 0.4 (0-0.7) k/uL Basophils # 0.1 (0-0.2) k/uL Anisocytosis Slight PT 10.7 (9.0-12.0) sec INR 1.0 (<1.2) APTT 21.1 L (22.0-30.0) sec VBG pH (7.31-7.41) VBG pCO2 (37-51) mmHg VBG HCO3 (24-28) mmol/L Sodium (137-145) mmol/L Potassium (3.5-5.1) mmol/L Chloride (98-107) mmol/L Carbon Dioxide (22-30) mmol/L Anion Gap mmol/L BUN (9-20) mg/dL Creatinine (0.66-1.25) mg/dL Est GFR (CKD-EPI)AfAm (>60 ml/min/1.73 sqM) Est GFR (CKD-EPI)NonAf (>60 ml/min/1.73 sqM) Glucose (74-99) mg/dL Calcium (8.4-10.2) mg/dL Magnesium (1.6-2.3) mg/dL Total Bilirubin (0.2-1.3) mg/dL AST (17-59) U/L ALT (4-49) U/L Alkaline Phosphatase (38-126) U/L NT-Pro-B Natriuret Pep pg/mL Total Protein (6.3-8.2) g/dL Albumin (3.5-5.0) g/dL Lipase (23-300) U/L Urine Color Yellow Urine Appearance Cloudy (Clear) Urine pH 5.5 (5.0-8.0) Ur Specific [place] 1.012 (1.001-1.035) Urine Protein 2+ H (Negative) Urine Glucose (UA) Negative (Negative) Urine Ketones Negative (Negative) Urine Blood Negative (Negative) Urine Nitrite Negative (Negative) Urine Bilirubin Negative (Negative) Urine Urobilinogen <2.0 (<2.0) mg/dL Ur Leukocyte Esterase Negative (Negative) Urine RBC 3 (0-5) /hpf Urine Bacteria Rare H (None) /hpf Hyaline Casts 2 (0-2) /lpf Urine Mucus Rare H (None) /hpf Urine Opiates Screen Not Detected (NotDetected) Ur Oxycodone Screen Not Detected (NotDetected) Urine Methadone Screen Not Detected (NotDetected) Ur Propoxyphene Screen Not Detected (NotDetected) Ur Barbiturates Screen Not Detected (NotDetected) U Tricyclic Antidepress Not Detected (NotDetected) Ur Phencyclidine Scrn Not Detected (NotDetected) Ur Amphetamines Screen Not Detected (NotDetected) U Methamphetamines Scrn Not Detected (NotDetected) U Benzodiazepines Scrn Not Detected (NotDetected) Urine Cocaine Screen Not Detected (NotDetected) U Marijuana (THC) Screen Not Detected (NotDetected) Blood Type Blood Type Recheck Bld Type Recheck Status Antibody Screen Spec Expiration Date 12/05/20 12/05/20 12/05/20 Range/Units 17:44 17:44 17:44 WBC (3.8-10.6) k/uL RBC (4.30-5.90) m/uL Hgb (13.0-17.5) gm/dL Hct (39.0-53.0) % MCV (80.0-100.0) fL MCH (25.0-35.0) pg MCHC (31.0-37.0) g/dL RDW (11.5-15.5) % Plt Count (150-450) k/uL MPV Neutrophils % % Lymphocytes % % Monocytes % % Eosinophils % % Basophils % % Neutrophils # (1.3-7.7) k/uL Lymphocytes # (1.0-4.8) k/uL Monocytes # (0-1.0) k/uL Eosinophils # (0-0.7) k/uL Basophils # (0-0.2) k/uL Anisocytosis PT (9.0-12.0) sec INR (<1.2) APTT (22.0-30.0) sec VBG pH (7.31-7.41) VBG pCO2 (37-51) mmHg VBG HCO3 (24-28) mmol/L Sodium 132 L (137-145) mmol/L Potassium 5.7 H (3.5-5.1) mmol/L Chloride 93 L (98-107) mmol/L Carbon Dioxide 29 (22-30) mmol/L Anion Gap 10 mmol/L BUN 111 H* (9-20) mg/dL Creatinine 4.40 H (0.66-1.25) mg/dL Est GFR (CKD-EPI)AfAm 15 (>60 ml/min/1.73 sqM) Est GFR (CKD-EPI)NonAf 13 (>60 ml/min/1.73 sqM) Glucose 153 H (74-99) mg/dL Calcium 10.2 (8.4-10.2) mg/dL Magnesium 2.2 (1.6-2.3) mg/dL Total Bilirubin 0.4 (0.2-1.3) mg/dL AST 20 (17-59) U/L ALT 10 (4-49) U/L Alkaline Phosphatase 134 H (38-126) U/L NT-Pro-B Natriuret Pep 2450 pg/mL Total Protein 7.2 (6.3-8.2) g/dL Albumin 4.2 (3.5-5.0) g/dL Lipase 239 (23-300) U/L Urine Color Urine Appearance (Clear) Urine pH (5.0-8.0) Ur Specific [place] (1.001-1.035) Urine Protein (Negative) Urine Glucose (UA) (Negative) Urine Ketones (Negative) Urine Blood (Negative) Urine Nitrite (Negative) Urine Bilirubin (Negative) Urine Urobilinogen (<2.0) mg/dL Ur Leukocyte Esterase (Negative) Urine RBC (0-5) /hpf Urine Bacteria (None) /hpf Hyaline Casts (0-2) /lpf Urine Mucus (None) /hpf Urine Opiates Screen (NotDetected) Ur Oxycodone Screen (NotDetected) Urine Methadone Screen (NotDetected) Ur Propoxyphene Screen (NotDetected) Ur Barbiturates Screen (NotDetected) U Tricyclic Antidepress (NotDetected) Ur Phencyclidine Scrn (NotDetected) Ur Amphetamines Screen (NotDetected) U Methamphetamines Scrn (NotDetected) U Benzodiazepines Scrn (NotDetected) Urine Cocaine Screen (NotDetected) U Marijuana (THC) Screen (NotDetected) Blood Type A Negative Blood Type Recheck A Neg Bld Type Recheck Status No Antibody Screen NEGATIVE Spec Expiration Date 12/08/2020 - 234312/05/20 Range/Units 17:44 WBC (3.8-10.6) k/uL RBC (4.30-5.90) m/uL Hgb (13.0-17.5) gm/dL Hct (39.0-53.0) % MCV (80.0-100.0) fL MCH (25.0-35.0) pg MCHC (31.0-37.0) g/dL RDW (11.5-15.5) % Plt Count (150-450) k/uL MPV Neutrophils % % Lymphocytes % % Monocytes % % Eosinophils % % Basophils % % Neutrophils # (1.3-7.7) k/uL Lymphocytes # (1.0-4.8) k/uL Monocytes # (0-1.0) k/uL Eosinophils # (0-0.7) k/uL Basophils # (0-0.2) k/uL Anisocytosis PT (9.0-12.0) sec INR (<1.2) APTT (22.0-30.0) sec VBG pH 7.54 H (7.31-7.41) VBG pCO2 34 L (37-51) mmHg VBG HCO3 30 H (24-28) mmol/L Sodium (137-145) mmol/L Potassium (3.5-5.1) mmol/L Chloride (98-107) mmol/L Carbon Dioxide (22-30) mmol/L Anion Gap mmol/L BUN (9-20) mg/dL Creatinine (0.66-1.25) mg/dL Est GFR (CKD-EPI)AfAm (>60 ml/min/1.73 sqM) Est GFR (CKD-EPI)NonAf (>60 ml/min/1.73 sqM) Glucose (74-99) mg/dL Calcium (8.4-10.2) mg/dL Magnesium (1.6-2.3) mg/dL Total Bilirubin (0.2-1.3) mg/dL AST (17-59) U/L ALT (4-49) U/L Alkaline Phosphatase (38-126) U/L NT-Pro-B Natriuret Pep pg/mL Total Protein (6.3-8.2) g/dL Albumin (3.5-5.0) g/dL Lipase (23-300) U/L Urine Color Urine Appearance (Clear) Urine pH (5.0-8.0) Ur Specific [place] (1.001-1.035) Urine Protein (Negative) Urine Glucose (UA) (Negative) Urine Ketones (Negative) Urine Blood (Negative) Urine Nitrite (Negative) Urine Bilirubin (Negative) Urine Urobilinogen (<2.0) mg/dL Ur Leukocyte Esterase (Negative) Urine RBC (0-5) /hpf Urine Bacteria (None) /hpf Hyaline Casts (0-2) /lpf Urine Mucus (None) /hpf Urine Opiates Screen (NotDetected) Ur Oxycodone Screen (NotDetected) Urine Methadone Screen (NotDetected) Ur Propoxyphene Screen (NotDetected) Ur Barbiturates Screen (NotDetected) U Tricyclic Antidepress (NotDetected) Ur Phencyclidine Scrn (NotDetected) Ur Amphetamines Screen (NotDetected) U Methamphetamines Scrn (NotDetected) U Benzodiazepines Scrn (NotDetected) Urine Cocaine Screen (NotDetected) U Marijuana (THC) Screen (NotDetected) Blood Type Blood Type Recheck Bld Type Recheck Status Antibody Screen Spec Expiration Date Disposition Clinical Impression: TIERNEY (acute kidney injury), Dehydration, Hyperkalemia Disposition: ADMITTED IP TO THIS [facility] Condition: Serious Referrals: Chance Flowers MD [Primary Care Provider] - 1-2 days
[2020-12-05] MEDS: SODIUM CHLORIDE 0.9% 1,000 ML IV SCH (17:45)
[2020-12-05 18:00] LABS: Anisocytosis Slight; Basophils # (A) 0.1 k/uL (0-0.2); Basophils % (A) 1 %; Eosinophils # (A) 0.4 k/uL (0-0.7); Eosinophils % (A) 5 %; HCT 29.5 % (39.0-53.0); Lymphocytes # (A) 0.8 k/uL (1.0-4.8); Lymphocytes % (A) 8 %; MCH 28.8 pg (25.0-35.0); Mean Platelet Volume 7.2; Monocytes # (A) 0.7 k/uL (0-1.0); Monocytes % (A) 7 %; Neutrophils # (A) 7.8 k/uL (1.3-7.7); Neutrophils % (A) 79 %; Platelet Count 302 k/uL (150-450); RBC 3.38 m/uL (4.30-5.90); RDW 16.6 % (11.5-15.5); WBC 9.8 k/uL (3.8-10.6)
[2020-12-05 18:06] LABS: VBG PH 7.54 (7.31-7.41)
[2020-12-05 18:09] LABS: Albumin 4.2 g/dL (3.5-5.0); Calcium 10.2 mg/dL (8.4-10.2); Magnesium 2.2 mg/dL (1.6-2.3); Potassium 5.7 mmol/L (3.5-5.1); Total Bilirubin 0.4 mg/dL (0.2-1.3); Total Protein 7.2 g/dL (6.3-8.2)
[2020-12-05 18:12] LABS: HGB 9.7 gm/dL (13.0-17.5); MCV 87.3 fL (80.0-100.0)
[2020-12-05 18:14] LABS: Appearance,Urine Cloudy (Clear); Bacteria,Urine Rare /hpf; Bilirubin,Urine Negative (Negative); Blood,Urine Negative (Negative); Color,Urine Yellow; Glucose,Urine (UA) Negative (Negative); Hyaline Casts,Urine 2 /lpf (0-2); Ketones,Urine Negative (Negative); Leukocyte Esterase,Urine Negative (Negative); Mucus,Urine Rare /hpf; Nitrite,Urine Negative (Negative); PH, Urine 5.5 (5.0-8.0); Protein,Urine 2+ (Negative); RBC,Urine 3 /hpf (0-5); Specific Gravity,Urine 1.012 (1.001-1.035); Urobilinogen,Urine <2.0 mg/dL (<2.0)
[2020-12-05 18:15] LABS: Amphetamine Screen,Urine Not Detected (NotDetected); Barbiturate Screen,Urine Not Detected (NotDetected); Benzodiazepines Screen,Urine Not Detected (NotDetected); Cocaine Screen,Urine Not Detected (NotDetected); Methadone Screen, Urine Not Detected (NotDetected); Opiate Screen,Urine Not Detected (NotDetected); Oxycodone Screen, Urine Not Detected (NotDetected); Phencyclidine Screen,Urine Not Detected (NotDetected); Tricyclic Antidepressant,Urine Not Detected (NotDetected); Urn Cannabinoid Scrn Not Detected (NotDetected)
--- NOTE | 2020-12-05 18:21 | CT ---
EXAMINATION TYPE: CT brain wo con DATE OF EXAM: 12/05/2020 COMPARISON: CT brain 11/13/2020 HISTORY: Mental status changes. CT DLP: 1143.4 mGycm Automated exposure control for dose reduction was used. Helical imaging through the brain. FINDINGS: There is no interval change. Periventricular white matter shows patchy low attenuation. IMPRESSION: STABLE HEAD CT, CORTICAL ATROPHY AND PROBABLE CHRONIC SMALL VESSEL ISCHEMIC CHANGES.
[2020-12-05 18:22] LABS: Partial Thromboplastin Time 21.1 sec (22.0-30.0); Prothrombin Time 10.7 sec (9.0-12.0)
--- NOTE | 2020-12-05 18:22 | XR ---
EXAMINATION TYPE: XR chest 1V portable DATE OF EXAM: 12/05/2020 COMPARISON: Chest x-ray 11/14/2020 HISTORY: Altered mental status TECHNIQUE: Single frontal view of the chest is obtained. FINDINGS: Technique in the exam is somewhat limited. There is no focal air space opacity, pleural eff usion, or pneumothorax seen. The cardiac silhouette size is stable, heart is enlarged. The osseous structures are intact. IMPRESSION: Exam is limited technically. Cardiomegaly. Exam multi. No additional charge the patient should be requested.
--- NOTE | 2020-12-05 18:42 | CT ---
EXAMINATION TYPE: CT abdomen pelvis wo con DATE OF EXAM: 12/05/2020 COMPARISON: CT 11/29/2019 HISTORY: Abdominal pain. CT DLP: 1985.3 mGycm Automated exposure control for dose reduction was used. TECHNIQUE: Helical acquisition of images from the lung bases through the pelvis. FINDINGS: There is an umbilical hernia containing fat similar to prior exam. Lack of contrast could c ompromise sensitivity. LUNG BASES: Left pleural effusion has developed in the interval greater than right, there is dependen t atelectatic change bilaterally, the heart is enlarged with some coronary artery calcification, poss ible calcification through the aorta, there is a small hiatal hernia suspected. AORTA: No significant abnormality is appreciataed. LIVER/GB: No significant interval change is appreciated, surgical clips are present status post skye cystectomy. PANCREAS: No significant abnormality is seen. SPLEEN: No significant abnormality is seen. ADRENALS: No significant abnormality is seen. KIDNEYS: No significant abnormality is seen. REPRODUCTIVE ORGANS: No significant abnormality is seen. URINARY BLADDER: No significant abnormality is seen. BOWEL: No significant abnormality is seen. FREE AIR: No Free Air is visible. ASCITES: None visible. PELVIC ADENOPATHY: None visualized. RETROPERITONEAL ADENOPATHY: No Retroperitoneal Adenopathy visible. OSSEOUS STRUCTURES: Degenerative disc changes, facet arthropathy noted similar to prior exam, bilate ral spondylolysis present at L5 with anterolisthesis grade 1 L5-S1 IMPRESSION: THERE HAS BEEN INTERVAL DEVELOPMENT OF PLEURAL EFFUSIONS LEFT GREATER THAN RIGHT, NO OTHER SIGNIFICAN T INTERVAL CHANGE IS EVIDENT, NONCONTRAST EXAM, CORONARY ARTERY DISEASE AND CARDIOMEGALY
[2020-12-05] MEDS ORDERED: NALOXONE 0.4 MG/ML 1 ML VIAL IV PRN (19:17)
[2020-12-05] MEDS ORDERED: CALCIUM GLUCONATE 1 GM in SODIUM CHLORIDE 0.9% 100 ML IVPB ONE (19:40)
[2020-12-06] MEDS ORDERED: bisacodyL 10 MG SUPP RECTAL PRN (07:51)
[2020-12-06] MEDS: SODIUM CHLORIDE 0.9% 1,000 ML IV SCH ×3 (10:16→20:33)
[2020-12-06] MEDS: allopurinoL 100 MG TAB PO SCH (10:24)
[2020-12-06] MEDS: LIDOCAINE 5% PATCH TOPICAL SCH (10:24)
[2020-12-06] MEDS: LABETALOL 200 MG TAB PO SCH ×2 (10:24→16:28)
[2020-12-06] MEDS: ONDANSETRON 4 MG/2 ML VIAL IVP PRN (11:56)
[2020-12-06 12:00] LABS: Glucose,Whole Blood 153 mg/dL (75-99)
[2020-12-06] MEDS ORDERED: SODIUM BICARBONATE TAB 650 MG TAB PO SCH (12:00)
[2020-12-06] MEDS: IPRATROPIUM-ALBUTEROL 3 ML NEB INHALATION SCH ×2 (13:02→21:05)
--- NOTE | 2020-12-06 14:33 | P.HPIM ---
History of Present Illness 70-year-old male was transferred from long-term for the altered mental status. Patient has not been eating or drinking very well. Patient does have chronic kidney disease stage IV patient is found to have elevated to serum creat inine and BMP contributing to his altered mental status. Patient is mostly bedbound does have bilateral venous stasis dermatosis and some ulcerations, none of which appear to be infected. Patient doesn't have any fever chills. Patient doesn't have any other evidence of sepsis at this time. When I valid the patient patient is alert oriented 3. Patient is on Lasix which is being held at this time. Patient had normal ejection fraction on the previous echocardiogram. Patient had a grade 2 diastolic dysfunction. With a severely dilated LA and moderate pulmonary hypertension and moderate to severe tricuspid regurgitation. CT of the head showed chronic microvascular ischemic changes, CT of the abdomen and pelvis did not show any significant abnormality except mild bilateral pleural effusion chest x-ray was not consistent with pneumonia. Review of Systems REVIEW OF SYSTEMS: CONSTITUTIONAL: No fever, no malaise, no fatigue. HEENT: No recent visual problems or hearing problems. Denied any sore throat. CARDIOVASCULAR: No chest pain, orthopnea, PND, no palpitations, no syncope. PULMONARY: No shortness of breath, no cough, no hemoptysis. GASTROINTESTINAL: No diarrhea, no nausea, no vomiting, no abdominal pain. NEUROLOGICAL: No headaches, no weakness, no numbness. HEMATOLOGICAL: Denies any bleeding or petechiae. GENITOURINARY: Denies any burning micturition, frequency, or urgency. MUSCULOSKELETAL/RHEUMATOLOGICAL: Denies any joint pain, swelling, or any muscle pain. ENDOCRINE: Denies any polyuria or polydipsia. The rest of the 14-point review of systems is negative. Past Medical History Past Medical History: Heart Failure, COPD, Diabetes Mellitus, Hyperlipidemia, Hypertension, Osteoarthritis (OA), Pneumonia, Renal Disease, Sleep Apnea/CPAP/BIPAP, Vascular Disorder Additional Past Medical History / Comment(s): IDDM type II, 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, chronic venous ulcer left anterior lower leg, sepsis from L leg wound, chronic anemia, hyperkalemia, CKD stage IV, UTIs, incontinence, DELVIN no longer using Cpap and is now on oxygen at 4l/nc atc, possible starting of dementia, confusion at times at night, bilateral lower leg varicosities, umbilical hernia, past duodenal ulcer with repair, Hpylori, wheelchair bound, states pt may have skin issue on his buttocks. 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 Past Anesthesia/Blood Transfusion Reactions: No Reported Reaction, Motion Sickness Date of Last Stent Placement:: 10/2015 Smoking Status: Never smoker - Past Family History Father Family Medical History: COPD Additional Family Medical History / Comment(s): AT AGE 64- EMPHYSEMA(SMOKER) Mother Family Medical History: Diabetes Mellitus, Hypertension Additional Family Medical History / Comment(s): LUPUS, LEG AMPUTATED. MOM IN HER 60'S Medications and Allergies Home Medications Medication Instructions Recorded Confirmed Type allopurinoL [Zyloprim] 100 mg PO DAILY@0800 04/22/15 12/05/20 History Fish Oil/Dha/Epa [Fish Oil 1,200 1 cap PO DAILY@17009/06/15 12/05/20 History mg Fish Oil] Ferrous Sulfate [Iron (65 MG 325 mg PO DAILY@169910/23/15 12/05/20 History Elemental)] Atorvastatin [Lipitor] 20 mg PO HS@2100 12/09/19 12/05/20 History Aspirin EC [Ecotrin Low Dose] 81 mg PO DAILY@1700 08/08/20 12/05/20 History Pantoprazole [Protonix] 40 mg PO DAILY@0600 08/08/20 12/05/20 History Epoetin Avelino-Epbx [Retacrit] 20,000 unit SQ TU@1700 09/07/20 12/05/20 History Magnesium Hydroxide [Milk of 7,200 mg PO DAILY PRN 09/07/20 12/05/20 History Magnesia Concentrate] bisacodyL [Dulcolax] 10 mg RECTAL DAILY PRN 09/07/20 12/05/20 History cloNIDine HCL [Catapres] 0.1 mg PO TID@0800,1200,1700 09/07/20 12/05/20 History Ipratropium-Albuterol Nebulize 3 ml INHALATION RT-TID@08,12,17 11/06/20 12/05/20 History [Duoneb 0.5 mg-3 mg/3 ml Soln] Insulin Glargine,Hum.rec.anlog 20 unit SQ HS@2100 #0 11/12/20 12/05/20 Rx [Lantus Solostar] Lidocaine 5% Patch [Lidoderm 5% 2 patch TOPICAL DAILY patch 11/12/20 12/05/20 Rx Patch] Cholecalciferol [Vitamin D3 (25 25 mcg PO DAILY@1700 11/13/20 12/05/20 History Mcg = 1000 Iu)] Furosemide [Lasix] 40 mg PO DAILY@1400 11/13/20 12/05/20 History Isosorbide Mononitrate ER [Imdur] 30 mg PO DAILY@0800 11/13/20 12/05/20 History Labetalol [Trandate] 200 mg PO BID@0800,1700 11/13/20 12/05/20 History Na Phos,M-B/Na Phos,Di-Ba [Fleet 133 ml RECTAL DAILY PRN 11/13/20 12/05/20 History Adult] Sodium Bicarbonate Tab 650 mg PO TID@0800,1200,1700 11/13/20 12/05/20 History amLODIPine [Norvasc] 10 mg PO DAILY@0800 11/13/20 12/05/20 History hydrALAZINE HCL [Apresoline] 50 mg PO BID@0800,1700 11/13/20 12/05/20 History polyethylene glycoL 3350 [Miralax] 17 gm PO DAILY@0800 11/13/20 12/05/20 History Furosemide [Lasix] 60 mg PO DAILY@0600 12/05/20 12/05/20 History Glucerna Shake 1 can PO TID@0800,1200,1700 12/05/20 12/05/20 History Liquacel 30 mg PO BID@0800,1700 12/05/20 12/05/20 History Mag Hydrox/Al Hydrox/Simeth 30 ml PO Q6H PRN 12/05/20 12/05/20 History [Maalox] Allergies Allergy/AdvReac Type Severity Reaction Status Date / Time aspirin [From Anacin] Allergy Rash/Hives Verified 12/05/20 16:53 (Dulce brand ok) sulfamethoxazole AdvReac affects Verified 12/05/20 16:53 [From Bactrim] kidneys trimethoprim [From Bactrim] AdvReac Unknown Verified 12/05/20 16:53 Physical Exam Vitals: Vital Signs Temp Pulse Pulse Resp BP BP Pulse Ox 12/06/20 13:16 56 L 12/06/20 13:03 56 L 12/06/20 08:30 97.6 F 64 20 156/65 97 12/06/20 07:30 98.3 F 68 20 136/55 96 12/06/20 06:00 66 14 140/71 95 12/06/20 04:00 65 12 12/06/20 02:00 65 14 133/72 97 12/06/20 01:50 67 18 141/79 97 12/06/20 00:00 65 19 144/56 96 12/05/20 22:00 62 15 135/52 99 12/05/20 20:16 59 L 19 121/47 97 12/05/20 20:00 54 L 17 132/58 97 12/05/20 19:20 18 12/05/20 19:07 53 L 18 119/58 98 12/05/20 18:00 122/52 12/05/20 17:44 64 18 122/52 97 12/05/20 17:31 112/44 98 12/05/20 16:44 97 12/05/20 16:36 98.1 F 53 L 18 120/49 90 L Intake and Output 12/05/20 12/06/20 12/06/20 22:59 06:59 14:59 Intake Total 118 Balance 118 Intake: Oral 118 Other: # Voids 1 # Bowel Movements 1 Weight 127.006 kg 127.006 kg PHYSICAL EXAMINATION: GENERAL: The patient is alert and oriented x3, not in any acute distress. Well developed, well nourished. HEENT: Pupils are round and equally reacting to light. EOMI. No scleral icterus. No conjunctival pallor. Normocephalic, atraumatic. No pharyngeal erythema. No thyromegaly. CARDIOVASCULAR: S1 and S2 present. No murmurs, rubs, or gallops. PULMONARY: Chest is clear to auscultation, no wheezing or crackles. ABDOMEN: Soft, nontender, nondistended, normoactive bowel sounds. No palpable organomegaly. MUSCULOSKELETAL: No joint swelling or deformity. EXTREMITIES: Extensive bilateral swelling patient has muscle wasting doesn't appear to have any cellulitis. NEUROLOGICAL: Gross neurological examination did not reveal any focal deficits. SKIN: No rashes. Results CBC & Chem 7: 12/05/20 17:44 12/05/20 17:44 Labs: Abnormal Lab Results - Last 24 Hours (Table) 12/05/20 12/05/20 12/05/20 Range/Units 17:44 17:44 17:44 RBC 3.38 L (4.30-5.90) m/uL Hgb 9.7 L D (13.0-17.5) gm/dL Hct 29.5 L (39.0-53.0) % RDW 16.6 H (11.5-15.5) % Neutrophils # 7.8 H (1.3-7.7) k/uL Lymphocytes # 0.8 L (1.0-4.8) k/uL APTT 21.1 L (22.0-30.0) sec VBG pH (7.31-7.41) VBG pCO2 (37-51) mmHg VBG HCO3 (24-28) mmol/L Sodium (137-145) mmol/L Potassium (3.5-5.1) mmol/L Chloride (98-107) mmol/L BUN (9-20) mg/dL Creatinine (0.66-1.25) mg/dL Glucose (74-99) mg/dL POC Glucose (mg/dL) (75-99) mg/dL Alkaline Phosphatase (38-126) U/L Urine Protein 2+ H (Negative) Urine Bacteria Rare H (None) /hpf Urine Mucus Rare H (None) /hpf 12/05/20 12/05/20 12/06/20 Range/Units 17:44 17:44 11:59 RBC (4.30-5.90) m/uL Hgb (13.0-17.5) gm/dL Hct (39.0-53.0) % RDW (11.5-15.5) % Neutrophils # (1.3-7.7) k/uL Lymphocytes # (1.0-4.8) k/uL APTT (22.0-30.0) sec VBG pH 7.54 H (7.31-7.41) VBG pCO2 34 L (37-51) mmHg VBG HCO3 30 H (24-28) mmol/L Sodium 132 L (137-145) mmol/L Potassium 5.7 H (3.5-5.1) mmol/L Chloride 93 L (98-107) mmol/L BUN 111 H* (9-20) mg/dL Creatinine 4.40 H (0.66-1.25) mg/dL Glucose 153 H (74-99) mg/dL POC Glucose (mg/dL) 153 H (75-99) mg/dL Alkaline Phosphatase 134 H (38-126) U/L Urine Protein (Negative) Urine Bacteria (None) /hpf Urine Mucus (None) /hpf Thrombosis Risk Factor Assmnt - Choose All That Apply Any of the Below Risk Factors Present?: Yes Each Factor Represents 1 point: Abnormal pulmonary function (COPD), Obesity (BMI >25) Other Risk Factors: Yes Each Risk Factor Represents 2 Points: Age 61-74 years Other congenital or acquired thrombophilia - If yes, enter type in comment: No Thrombosis Risk Factor Assessment Total Risk Factor Score: 4 Thrombosis Risk Factor Assessment Level: Moderate Risk Assessment and Plan Plan: -Altered mental status secondary to metabolic encephalopathy from acute on chronic renal failure. Patient will be continued on IV fluids renal failure is secondary to prerenal azotemia from poor by mouth intake and Lasix. Patient does have history of heart failure with diastolic dysfunction. -Congestive heart failure chronic diastolic dysfunction without any significant exacerbation although patient will closely monitored and patient already has mild pleural effusions bilaterally. -COPD without any acute exacerbation -Type 2 diabetes mellitus -Generalized deconditioning patient is mostly bedbound -Bilateral chronic venous stasis with them acidosis and found stage 1-2 ulc erations -Type 2 diabetes mellitus -Hyperlipidemia -Hypertension Sleep apnea -Peripheral vascular disease -Sleep apnea patient uses CPAP machine at home -Hypovolemic hyponatremia patient is presently on IV fluids -Acute renal failure: Prerenal azotemia related to above-mentioned reasons Hyperkalemia: Secondary to renal failure -DVT prophylaxis with subcutaneous heparin
[2020-12-06 15:06] LABS: African American GFR (CKD) 16 (>60 ml/min/1.73 sqM); Anion Gap 9 mmol/L; Blood Urea Nitrogen 93 mg/dL (9-20); Carbon Dioxide 30 mmol/L (22-30); Chloride 97 mmol/L (98-107); Glucose 198 mg/dL (74-99); Non-African American GFR(CKD) 14 (>60 ml/min/1.73 sqM); Sodium 136 mmol/L (137-145)
[2020-12-06 15:39] LABS: Hepatitis B Surface AB- Quant <3.5 mIU/mL; Hepatitis B Surface Antibody Non-Reactive (Non-Reactive); Hepatitis B Surface Antigen Non-Reactive (Non-Reactive)
[2020-12-06] MEDS ORDERED: hydrALAZINE HCL 50 MG TAB PO SCH (16:00)
[2020-12-06] MEDS: CHOLECALCIFEROL 25 MCG (1000 IU) TABLET PO SCH (16:28)
[2020-12-06] MEDS: amLODIPine 10 MG TAB PO SCH (16:28)
[2020-12-06] MEDS: ASPIRIN 81 MG PO SCH (16:28)
[2020-12-06] MEDS: FERROUS SULFATE 325 MG TAB PO SCH (16:28)
--- NOTE | 2020-12-06 17:11 | CONS ---
CONSULTATION REASON FOR CONSULT: Chronic kidney disease and acute kidney injury. HISTORY OF PRESENT ILLNESS: Patient is a 70-year-old male with history of chronic kidney disease, NKF stage 4-5 with previous creatinine around 3 mg/dL at baseline, etiology is nephrosclerosis. The patient is admitted to the hospital with increased weakness. He denied any chest pains or shortness of breath. He also was noted to have mental status changes prior to admission. The patient currently resides at [facility]. He had some abdominal discomfort prior to admission. The patient has been complaining of nausea. He states that he has not been able to eat secondary to nausea over the last 1-2 weeks. Serum creatinine was 4.4 mg/dL on admission with a BUN of 111. Previous creatinine 3.0 on 11/25/2020. PAST MEDICAL HISTORY: Significant for CKD stage 4-5 with plans for possibly starting dialysis if patient continues to have repeated admissions, COPD, type 2 diabetes, hyperlipidemia, hypertension, history of congestive heart failure with recurrent admissions for volume overload, obstructive sleep apnea, history of neuropathy, chronic venous ulcers in lower extremities, mostly in the left leg; history of umbilical hernia, UTI which was ESBL and VRE with infection on the leg as well. PAST SURGICAL HISTORY: Appendectomy, cholecystectomy, cardiac catheterization, coronary stent placement, cataract surgery, testicular surgery, PICC line insertion and removal. SOCIAL HISTORY: Negative for smoking, drug abuse or alcohol abuse. MEDICATIONS: Medications prior to admission include clonidine, vitamin D3, Zyloprim, sodium bicarb, Protonix, magnesium, Lasix, Lipitor, Imodium, Neurontin, hydralazine, iron, calcitriol, aspirin, amlodipine. PHYSICAL EXAMINATION: Patient is currently comfortable, awake, not in any acute distress. His mentation seems to be at baseline currently. Blood pressure was 156/65, heart rate 64 per minute, he is afebrile. Examination of the heart S1, S2. Examination of the lungs, bilateral breath sounds are heard. Abdomen is soft nontender, obese. Examination of lower extremities shows chronic skin changes. No evidence of edema. STENOGRAPHIC COURT REPORTER exam grossly intact. LAB: Show sodium 132 12/05/2020, potassium 5.7, chloride 93, BUN 111, serum creatinine 4.4. ASSESSMENT: 1. Acute kidney injury, mostly prerenal, maintained on IV hydration. The patient likely had uremic symptoms and he may need to start renal replacement therapy if there is no significant improvement in his renal function or his nausea. 2. Metabolic acidosis, maintained on oral sodium bicarb. 3. Chronic kidney disease stage 4 to 5 with baseline creatinine 2.9-3 mg/dL. 4. Hypertension. 5. History of congestive heart failure and multiple admissions for volume overload previously with echocardiogram showing EF 55-60% on 11/07/2020. 6. Hyperkalemia associated with acute kidney injury, rule out urine retention. PLAN: Continue with IV fluids. Re-evaluate for need for starting dialysis this admission. The patient was noted to have pleural effusions on his CT of the chest and abdomen which I believe are chronic. Avoid any nephrotoxic agents. Continue with Aranesp for now and repeat labs today. Check a bladder scan to rule out urine retention. Thank you for this consultation. Will continue to follow the patient with you during his hospitalization. MMMATTL / ATILION: [id number] /
[2020-12-06 17:23] LABS: Glucose,Whole Blood 180 mg/dL (75-99)
[2020-12-06 20:03] LABS: Glucose,Whole Blood 159 mg/dL (75-99)
[2020-12-06] MEDS: INSULIN DETEMIR (LEVEMIR) 100 UNIT/ML SYR SQ SCH (20:32)
[2020-12-06] MEDS: HEPARIN SODIUM,PORCINE/PF 5,000 UNIT/0.5 ML SYRINGE SQ SCH (20:32)
[2020-12-06] MEDS: ATORVASTATIN 20 MG TAB PO SCH (20:32)
[2020-12-07] MEDS: PANTOPRAZOLE 40 MG TABLET PO SCH (05:56)
[2020-12-07 06:44] LABS: African American GFR (CKD) 17 (>60 ml/min/1.73 sqM); Anion Gap 7 mmol/L; Blood Urea Nitrogen 83 mg/dL (9-20); Carbon Dioxide 30 mmol/L (22-30); Chloride 101 mmol/L (98-107); Glucose 90 mg/dL (74-99); Magnesium 2.1 mg/dL (1.6-2.3); Non-African American GFR(CKD) 15 (>60 ml/min/1.73 sqM); Potassium 4.7 mmol/L (3.5-5.1); Sodium 138 mmol/L (137-145)
[2020-12-07 07:13] LABS: Glucose,Whole Blood 101 mg/dL (75-99)
[2020-12-07] MEDS: IPRATROPIUM-ALBUTEROL 3 ML NEB INHALATION SCH ×3 (07:46→21:18)
[2020-12-07] MEDS: HEPARIN SODIUM,PORCINE/PF 5,000 UNIT/0.5 ML SYRINGE SQ SCH ×2 (08:12→21:18)
[2020-12-07] MEDS: allopurinoL 100 MG TAB PO SCH (08:13)
[2020-12-07] MEDS: LABETALOL 200 MG TAB PO SCH ×2 (08:13→16:15)
[2020-12-07] MEDS: SODIUM BICARBONATE TAB 650 MG TAB PO SCH (08:13)
[2020-12-07] MEDS: ISOSORBIDE MONONITRATE ER 30 MG TAB.ER.24H PO SCH (08:13)
[2020-12-07] MEDS: polyethylene glycoL 3350 17 GM POWD.PACK PO SCH (08:13)
[2020-12-07] MEDS: amLODIPine 10 MG TAB PO SCH (08:13)
[2020-12-07] MEDS: SODIUM CHLORIDE 0.9% 1,000 ML IV SCH ×2 (08:14→21:18)
[2020-12-07] MEDS: LIDOCAINE 5% PATCH TOPICAL SCH (08:35)
--- NOTE | 2020-12-07 11:50 | P.PN ---
Subjective Progress Note Date: 12/07/20 Principal diagnosis: This is a 70-year-old male followed up with acute kidney injury, cardiorenal syndrome, recurrent CHF and chronic kidney disease. He came in because of generalized weakness. He was started on IV fluids. Creatinine gone down, urine output is not documented as he is incontinent Is known with chronic kidney disease stage V, nephrosclerosis with a baseline c reatinine of about 3 secondary to nephrosclerosis. Ultrasound dated 09/09/2020 showed 10 cm and 12.6 cm right and left kidney. Urinalysis on 12/05/2020 shows 2+ proteinuria, urine protein to creatinine ratio was 3.1 on 11/06/2020 He has been admitted with recurrent congestive heart failure supposedly. Currently he is residing in longterm. He is known is obstructive sleep apnea neuropathy chronic venous ulcers heart catheterization with stent Objective - Vital Signs Vital signs: Vital Signs Temp 98.4 F 12/07/20 07:00 Pulse 68 12/07/20 11:34 Resp 14 12/07/20 07:00 BP 158/70 12/07/20 07:00 Pulse Ox 98 12/07/20 07:00 Intake & Output 12/06/20 12/07/20 12/07/20 18:59 06:59 18:59 Intake Total 118 Balance 118 Weight 127.006 kg Intake: Oral 118 Other: Voiding Method Diaper Diaper Diaper # Voids 1 3 # Bowel Movements 1 On examination is awake alert oriented but generalized weakness. HEENT exam no JVP neck is supple no facial asymmetry Lungs are clear to auscultation fair air entry bilaterally Heart sounds unremarkable for any murmur rub gallop Abdomen soft nontender Extremity exam was moderate edema Neurologically awake alert oriented no asterixis Profoundly weak - Labs CBC & Chem 7: 12/05/20 17:44 12/07/20 05:54 Labs: Abnormal Lab Results - Last 24 Hours (Table) 12/06/20 12/06/20 12/06/20 Range/Units 11:59 14:24 17:21 Sodium 136 L (137-145) mmol/L Chloride 97 L (98-107) mmol/L BUN 93 H (9-20) mg/dL Creatinine 4.12 H (0.66-1.25) mg/dL Glucose 198 H (74-99) mg/dL POC Glucose (mg/dL) 153 H 180 H (75-99) mg/dL 12/06/20 12/07/20 12/07/20 Range/Units 20:02 05:54 07:12 Sodium (137-145) mmol/L Chloride (98-107) mmol/L BUN 83 H (9-20) mg/dL Creatinine 3.80 H (0.66-1.25) mg/dL Glucose (74-99) mg/dL POC Glucose (mg/dL) 159 H 101 H (75-99) mg/dL Assessment and Plan Assessment: Impression 1. Chronic kidney disease secondary to diabetic nephropathy with significant proteinuria 2. An element of acute kidney injury from prerenal, improving with IV fluids. There may be an element of cardiorenal syndrome. Creatinine improved from 4.4- 2.8 3. Volume depletion, likely secondary to diuretics and poor intake 4. Poor appetite possible uremia 5. History of cardiac disease with catheterization and stenting in the past Recommendation 1. Will maintain strict lactated Ringer's. 100 mL an hour will make it 75 an hour 2. Check orthostatic changes 3. Check bladder scan 4. Check urine immunofixation. 5. Discussed with him possible need for dialysis soon if his appetite does not improve
[2020-12-07 12:14] LABS: Glucose,Whole Blood 165 mg/dL (75-99)
[2020-12-07 12:20] VITALS: BMI 40.1
--- NOTE | 2020-12-07 15:31 | P.PN ---
Subjective 70-year-old male was transferred from [facility] for the altered mental status. Patient has not been eating or drinking very well. Patient does have chronic kidney disease stage IV patient is found to have elevated to serum creatinine and BMP contributing to his altered mental status. Patient is mostly bedbound does have bilateral venous stasis dermatosis and some ulcerations, none of which appear to be infected. Patient doesn't have any fever chills. Patient doesn't have any other evidence of sepsis at this time. When I valid the pat ient patient is alert oriented 3. Patient is on Lasix which is being held at this time. Patient had normal ejection fraction on the previous echocardiogram. Patient had a grade 2 diastolic dysfunction. With a severely dilated LA and moderate pulmonary hypertension and moderate to severe tricuspid regurgitation. CT of the head showed chronic microvascular ischemic changes, CT of the abdomen and pelvis did not show any significant abnormality except mild bilateral pleural effusion chest x-ray was not consistent with pneumonia. 12/07/2020 Patient's serum creatinine and BMP improved patient is alert oriented 3 and patient the mental status is at his baseline. Patient's BUN is 83 and cre atinine is 3.80 baseline is around 2.8. Patient unremarkable hospital physicians the past for chronic diastolic dysfunction with acute exacerbation patient appears to have some cardiorenal syndrome patient is presently in 50 mL of fluids apology evaluated the patient. Patient may end up needing dialysis eventually because of cardiorenal syndrome. Constitutional: Denied any fatigue denied any fever. Cardio vascular: denied any chest pain, palpitations Gastrointestinal denied any nausea vomiting Pulmonary: Denied any shortness of breath cough Neurologic denied any new focal deficits All inpatient medications were reviewed and appropriate changes in these medications as dictated in the interval history and assessment and plan. Objective - Vital Signs Vital signs: Vital Signs Temp 98.4 F 12/07/20 07:00 Pulse 68 12/07/20 11:34 Resp 14 12/07/20 07:00 BP 158/70 12/07/20 07:00 Pulse Ox 98 12/07/20 07:00 Intake & Output 12/06/20 12/07/20 12/07/20 18:59 06:59 18:59 Intake Total 118 Balance 118 Weight 127.006 kg 127.006 kg Intake: Oral 118 Other: Voiding Method Diaper Diaper Diaper # Voids 1 3 # Bowel Movements 1 - Exam PHYSICAL EXAMINATION: GENERAL: The patient is alert and oriented x3, not in any acute distress. Well developed, well nourished. HEENT: Pupils are round and equally reacting to light. EOMI. No scleral icterus. No conjunctival pallor. Normocephalic, atraumatic. No pharyngeal erythema. No thyromegaly. CARDIOVASCULAR: S1 and S2 present. No murmurs, rubs, or gallops. PULMONARY: Chest is clear to auscultation, no wheezing or crackles. ABDOMEN: Soft, nontender, nondistended, normoactive bowel sounds. No palpable organomegaly. MUSCULOSKELETAL: No joint swelling or deformity. EXTREMITIES: Extensive bilateral swelling patient has muscle wasting doesn't appear to have any cellulitis. NEUROLOGICAL: Gross neurological examination did not reveal any focal deficits. SKIN: No rashes. - Labs CBC & Chem 7: 12/05/20 17:44 12/07/20 05:54 Labs: Abnormal Lab Results - Last 24 Hours (Table) 12/06/20 12/06/20 12/07/20 Range/Units 17:21 20:02 05:54 BUN 83 H (9-20) mg/dL Creatinine 3.80 H (0.66-1.25) mg/dL POC Glucose (mg/dL) 180 H 159 H (75-99) mg/dL 12/07/20 12/07/20 Range/Units 07:12 12:12 BUN (9-20) mg/dL Creatinine (0.66-1.25) mg/dL POC Glucose (mg/dL) 101 H 165 H (75-99) mg/dL Assessment and Plan Plan: -Altered mental status secondary to metabolic encephalopathy from acute on chronic renal failure. Patient will be continued on IV fluids renal failure is secondary to prerenal azotemia from poor by mouth intake and Lasix. Patient does have history of heart failure with diastolic dysfunction. Nephrology evaluated the patient patient has improvement in serum creatinine and presently 3.8 down from 4.4 significant improvement in be in -Congestive heart failure chronic diastolic dysfunction without any significant exacerbation although patient will closely monitored and patient already has mild pleural effusions bilaterally. -COPD without any acute exacerbation -Type 2 diabetes mellitus -Generalized deconditioning patient is mostly bedbound -Bilateral chronic venous stasis with them acidosis and found stage 1-2 ulcerations -Type 2 diabetes mellitus -Hyperlipidemia -Hypertension Sleep apnea -Peripheral vascular disease -Sleep apnea patient uses CPAP machine at home -Hypovolemic hyponatremia patient is presently on IV fluids -Acute renal failure: Prerenal azotemia related to above-mentioned reasons Hyperkalemia: Secondary to renal failure -DVT prophylaxis with subcutaneous heparin
[2020-12-07] MEDS: FERROUS SULFATE 325 MG TAB PO SCH (16:15)
[2020-12-07] MEDS: ASPIRIN 81 MG PO SCH (16:15)
[2020-12-07] MEDS: CHOLECALCIFEROL 25 MCG (1000 IU) TABLET PO SCH (16:15)
[2020-12-07 17:37] LABS: Glucose,Whole Blood 153 mg/dL (75-99)
[2020-12-07 20:03] LABS: Glucose,Whole Blood 175 mg/dL (75-99)
[2020-12-07] MEDS: ATORVASTATIN 20 MG TAB PO SCH (21:18)
[2020-12-07] MEDS: INSULIN DETEMIR (LEVEMIR) 100 UNIT/ML SYR SQ SCH (21:19)
[2020-12-08] MEDS: ONDANSETRON 4 MG/2 ML VIAL IVP PRN ×2 (03:29→16:51)
[2020-12-08] MEDS: SODIUM CHLORIDE 0.9% 1,000 ML IV SCH ×2 (05:32→15:57)
[2020-12-08] MEDS: PANTOPRAZOLE 40 MG TABLET PO SCH (06:19)
[2020-12-08 07:29] LABS: Glucose,Whole Blood 120 mg/dL (75-99)
[2020-12-08] MEDS: IPRATROPIUM-ALBUTEROL 3 ML NEB INHALATION SCH ×3 (08:23→21:44)
[2020-12-08] MEDS: HEPARIN SODIUM,PORCINE/PF 5,000 UNIT/0.5 ML SYRINGE SQ SCH ×2 (09:12→21:34)
[2020-12-08] MEDS: SODIUM BICARBONATE TAB 650 MG TAB PO SCH (09:13)
[2020-12-08] MEDS: amLODIPine 10 MG TAB PO SCH (09:13)
[2020-12-08] MEDS: allopurinoL 100 MG TAB PO SCH (09:13)
[2020-12-08] MEDS: polyethylene glycoL 3350 17 GM POWD.PACK PO SCH (09:13)
[2020-12-08] MEDS: LABETALOL 200 MG TAB PO SCH ×2 (09:13→16:12)
[2020-12-08] MEDS: ISOSORBIDE MONONITRATE ER 30 MG TAB.ER.24H PO SCH (09:13)
[2020-12-08] MEDS: LIDOCAINE 5% PATCH TOPICAL SCH (09:13)
[2020-12-08 11:44] LABS: Glucose,Whole Blood 187 mg/dL (75-99)
[2020-12-08 11:45] LABS: African American GFR (CKD) 19 (>60 ml/min/1.73 sqM); Anion Gap 8 mmol/L; Blood Urea Nitrogen 71 mg/dL (9-20); Calcium 9.9 mg/dL (8.4-10.2); Carbon Dioxide 27 mmol/L (22-30); Chloride 104 mmol/L (98-107); Glucose 142 mg/dL (74-99); Non-African American GFR(CKD) 17 (>60 ml/min/1.73 sqM); Potassium 4.5 mmol/L (3.5-5.1); Sodium 139 mmol/L (137-145)
--- NOTE | 2020-12-08 12:28 | P.PN ---
Subjective 70-year-old male was transferred from half-way for the altered mental status. Patient has not been eating or drinking very well. Patient does have chronic kidney disease stage IV patient is found to have elevated to serum creatinine and BMP contributing to his altered mental status. Patient is mostly bedbound does have bilateral venous stasis dermatosis and some ulcerations, none of which appear to be infected. Patient doesn't have any fever chills. Patient doesn't have any other evidence of sepsis at this time. When I valid the pat ient patient is alert oriented 3. Patient is on Lasix which is being held at this time. Patient had normal ejection fraction on the previous echocardiogram. Patient had a grade 2 diastolic dysfunction. With a severely dilated LA and moderate pulmonary hypertension and moderate to severe tricuspid regurgitation. CT of the head showed chronic microvascular ischemic changes, CT of the abdomen and pelvis did not show any significant abnormality except mild bilateral pleural effusion chest x-ray was not consistent with pneumonia. 12/07/2020 Patient's serum creatinine and BMP improved patient is alert oriented 3 and patient the mental status is at his baseline. Patient's BUN is 83 and cre atinine is 3.80 baseline is around 2.8. Patient unremarkable hospital physicians the past for chronic diastolic dysfunction with acute exacerbation patient appears to have some cardiorenal syndrome patient is presently in 50 mL of fluids apology evaluated the patient. Patient may end up needing dialysis eventually because of cardiorenal syndrome. 12/08/2020 Patient's serum creatinine appear to be stable at 3.5. Patient is presently not receiving much of fluids at this time. Nephrology to evaluate the patient. Discussed at length regarding initiation of hemodialysis which may happen during this hospitalization are down the line. Constitutional: Denied any fatigue denied any fever. Cardio vascular: denied any chest pain, palpitations Gastrointestinal denied any nausea vomiting Pulmonary: Denied any shortness of breath cough Neurologic denied any new focal deficits All inpatient medications were reviewed and appropriate changes in these medications as dictated in the interval history and assessment and plan. Objective - Vital Signs Vital signs: Vital Signs Temp 98.5 F 12/08/20 08:00 Pulse 76 12/08/20 11:22 Resp 20 12/08/20 08:00 BP 176/65 12/08/20 08:00 Pulse Ox 94 L 12/08/20 08:00 Intake & Output 12/07/20 12/08/20 12/08/20 18:59 06:59 18:59 Output Total 0 Balance 0 Weight 127.006 kg Output: Post Void Residual 0 Other: Voiding Method Diaper Diaper # Voids 3 4 - Exam PHYSICAL EXAMINATION: GENERAL: The patient is alert and oriented x3, not in any acute distress. Well developed, well nourished. HEENT: Pupils are round and equally reacting to light. EOMI. No scleral icterus. No conjunctival pallor. Normocephalic, atraumatic. No pharyngeal erythema. No thyromegaly. CARDIOVASCULAR: S1 and S2 present. No murmurs, rubs, or gallops. PULMONARY: Chest is clear to auscultation, no wheezing or crackles. ABDOMEN: Soft, nontender, nondistended, normoactive bowel sounds. No palpable organomegaly. MUSCULOSKELETAL: No joint swelling or deformity. EXTREMITIES: Extensive bilateral swelling patient has muscle wasting doesn't appear to have any cellulitis. NEUROLOGICAL: Gross neurological examination did not reveal any focal deficits. SKIN: No rashes. - Labs CBC & Chem 7: 12/05/20 17:44 12/08/20 10:42 Labs: Abnormal Lab Results - Last 24 Hours (Table) 12/07/20 12/07/20 12/08/20 Range/Units 17:35 20:02 07:28 BUN (9-20) mg/dL Creatinine (0.66-1.25) mg/dL Glucose (74-99) mg/dL POC Glucose (mg/dL) 153 H 175 H 120 H (75-99) mg/dL 12/08/20 12/08/20 Range/Units 10:42 11:43 BUN 71 H (9-20) mg/dL Creatinine 3.51 H (0.66-1.25) mg/dL Glucose 142 H (74-99) mg/dL POC Glucose (mg/dL) 187 H (75-99) mg/dL Assessment and Plan Plan: -Altered mental status secondary to metabolic encephalopathy from acute on chronic renal failure. Patient will be continued on IV fluids renal failure is secondary to prerenal azotemia from poor by mouth intake and Lasix. Patient does have history of heart failure with diastolic dysfunction. Nephrology evaluated the patient patient has improvement in serum creatinine and presently 3.5 down from 4.4 . -Congestive heart failure chronic diastolic dysfunction without any significant exacerbation although patient will closely monitored and patient already has mild pleural effusions bilaterally. -COPD without any acute exacerbation -Type 2 diabetes mellitus -Generalized deconditioning patient is mostly bedbound -Bilateral chronic venous stasis with them acidosis and found stage 1-2 ulcerations -Type 2 diabetes mellitus -Hyperlipidemia -Hypertension Sleep apnea -Peripheral vascular disease -Sleep apnea patient uses CPAP machine at home -Hypovolemic hyponatremia patient is presently on IV fluids -Acute renal failure: Prerenal azotemia related to above-mentioned reasons Hyperkalemia: Secondary to renal failure -DVT prophylaxis with subcutaneous heparin
--- NOTE | 2020-12-08 13:14 | P.PN ---
Subjective Progress Note Date: 12/08/20 Principal diagnosis: This is a 70-year-old male followed up with acute kidney injury, cardiorenal syndrome, recurrent CHF and chronic kidney disease. He came in because of generalized weakness. He was started on IV fluids. Creatinine is going down urine output is not documented as he is incontinent his appetite is poor. He looks depressed, hardly responds Is known with chronic kidney disease stage V, nephrosclerosis with a baseline creatinine of about 3 secondary to nephrosclerosis. Ultrasound dated 09/09/2020 showed 10 cm and 12.6 cm right and left kidney. Urinalysis on 12/05/2020 shows 2+ proteinuria, urine protein to creatinine ratio was 3.1 on 11/06/2020 He has been admitted with recurrent congestive heart failure supposedly. Currently he is residing in detention. He is known is obstructive sleep apnea neuropathy chronic venous ulcers heart catheterization with stent Objective - Vital Signs Vital signs: Vital Signs Temp 98.5 F 12/08/20 08:00 Pulse 76 12/08/20 11:22 Resp 20 12/08/20 08:00 BP 176/65 12/08/20 08:00 Pulse Ox 94 L 12/08/20 08:00 Intake & Output 12/07/20 12/08/20 12/08/20 18:59 06:59 18:59 Output Total 0 Balance 0 Weight 127.006 kg Output: Post Void Residual 0 Other: Voiding Method Diaper Diaper # Voids 3 4 On examination is awake alert A chin exam no JVP neck is supple no facial asymmetry Lungs are clear to auscultation fair air entry less than optimal inspiratory effort and cooperation Heart sounds are unremarkable for any murmur rub gallop Abdomen soft nontender Extreme exam was no edema Neurologically awake alert oriented - Labs CBC & Chem 7: 12/05/20 17:44 12/08/20 10:42 Labs: Abnormal Lab Results - Last 24 Hours (Table) 12/07/20 12/07/20 12/08/20 Range/Units 17:35 20:02 07:28 BUN (9-20) mg/dL Creatinine (0.66-1.25) mg/dL Glucose (74-99) mg/dL POC Glucose (mg/dL) 153 H 175 H 120 H (75-99) mg/dL 12/08/20 12/08/20 Range/Units 10:42 11:43 BUN 71 H (9-20) mg/dL Creatinine 3.51 H (0.66-1.25) mg/dL Glucose 142 H (74-99) mg/dL POC Glucose (mg/dL) 187 H (75-99) mg/dL Assessment and Plan Assessment: Impression 1. acute kidney injury from prerenal, improving with IV fluids. There may be an element of cardiorenal syndrome. Creatinine improved from 4.4-3.8 > 3.5 and today 2. Chronic kidney disease secondary to diabetic nephropathy with significant proteinuria 3. Volume depletion, likely secondary to diuretics and poor intake 4. Poor appetite possible uremia 5. History of cardiac disease with catheterization and stenting in the past Recommendation 1. Will maintain lactated Ringer's. at 75 an hour 2. Check urine immunofixation. 3. Continue to monitor lites blood pressure. No need for dialysis
[2020-12-08] MEDS: CHOLECALCIFEROL 25 MCG (1000 IU) TABLET PO SCH (16:12)
[2020-12-08] MEDS: FERROUS SULFATE 325 MG TAB PO SCH (16:12)
[2020-12-08] MEDS: ASPIRIN 81 MG PO SCH (16:12)
[2020-12-08 17:08] LABS: Glucose,Whole Blood 205 mg/dL (75-99)
[2020-12-08 20:28] LABS: Glucose,Whole Blood 190 mg/dL (75-99)
[2020-12-08] MEDS: ATORVASTATIN 20 MG TAB PO SCH (21:34)
[2020-12-08] MEDS: INSULIN DETEMIR (LEVEMIR) 100 UNIT/ML SYR SQ SCH (21:34)
[2020-12-08] MEDS: DOXAZOSIN 2 MG TAB PO SCH (23:10)
[2020-12-09] MEDS: ONDANSETRON 4 MG/2 ML VIAL IVP PRN (02:35)
[2020-12-09] MEDS: SODIUM CHLORIDE 0.9% 1,000 ML IV SCH ×3 (03:02→20:45)
[2020-12-09] MEDS: PANTOPRAZOLE 40 MG TABLET PO SCH (05:50)
[2020-12-09] MEDS: IPRATROPIUM-ALBUTEROL 3 ML NEB INHALATION SCH ×3 (07:54→19:48)
[2020-12-09] MEDS: HEPARIN SODIUM,PORCINE/PF 5,000 UNIT/0.5 ML SYRINGE SQ SCH ×2 (08:01→20:45)
[2020-12-09] MEDS: polyethylene glycoL 3350 17 GM POWD.PACK PO SCH (08:01)
[2020-12-09 08:02] LABS: Glucose,Whole Blood 175 mg/dL (75-99)
[2020-12-09] MEDS: allopurinoL 100 MG TAB PO SCH (08:02)
[2020-12-09] MEDS: amLODIPine 10 MG TAB PO SCH (08:02)
[2020-12-09] MEDS: SODIUM BICARBONATE TAB 650 MG TAB PO SCH (08:02)
[2020-12-09] MEDS: ISOSORBIDE MONONITRATE ER 30 MG TAB.ER.24H PO SCH (08:02)
[2020-12-09] MEDS: LIDOCAINE 5% PATCH TOPICAL SCH (08:02)
[2020-12-09] MEDS: LABETALOL 200 MG TAB PO SCH ×2 (08:03→17:28)
[2020-12-09 10:25] LABS: Anisocytosis Slight; Basophils # (A) 0.1 k/uL (0-0.2); Basophils % (A) 0 %; Eosinophils # (A) 0.3 k/uL (0-0.7); Eosinophils % (A) 1 %; HCT 31.2 % (39.0-53.0); HGB 9.7 gm/dL (13.0-17.5); Hypochromasia Slight; Lymphocytes # (A) 0.7 k/uL (1.0-4.8); Lymphocytes % (A) 3 %; MCHC 31.1 g/dL (31.0-37.0); MCV 90.1 fL (80.0-100.0); Mean Platelet Volume 7.7; Monocytes % (A) 5 %; Neutrophils # (A) 19.9 k/uL (1.3-7.7); Neutrophils % (A) 91 %; Platelet Count 307 k/uL (150-450); RBC 3.46 m/uL (4.30-5.90); RDW 17.1 % (11.5-15.5); WBC 21.9 k/uL (3.8-10.6)
[2020-12-09 11:43] LABS: ALT 9 U/L (4-49); AST 18 U/L (17-59); African American GFR (CKD) 21 (>60 ml/min/1.73 sqM); Albumin 4.1 g/dL (3.5-5.0); Albumin/Globulin Ratio 1.5; Alkaline Phosphatase 150 U/L (38-126); Anion Gap 11 mmol/L; Blood Urea Nitrogen 63 mg/dL (9-20); Calcium 10.2 mg/dL (8.4-10.2); Carbon Dioxide 25 mmol/L (22-30); Chloride 106 mmol/L (98-107); Globulin 2.8 g/dL; Glucose 144 mg/dL (74-99); Non-African American GFR(CKD) 18 (>60 ml/min/1.73 sqM); Sodium 142 mmol/L (137-145); Total Bilirubin 0.4 mg/dL (0.2-1.3); Total Protein 6.9 g/dL (6.3-8.2)
[2020-12-09 12:13] LABS: Glucose,Whole Blood 162 mg/dL (75-99)
--- NOTE | 2020-12-09 12:18 | XR ---
EXAMINATION TYPE: XR chest 1V portable DATE OF EXAM: 12/09/2020 COMPARISON: 12/05/2020 HISTORY: Elevated white blood cell count and weakness TECHNIQUE: Single frontal view of the chest is obtained. FINDINGS: Left lower lobe infiltrate and small effusion. The heart is enlarged. Atherosclerotic sow ge aorta. No pneumothorax. Arthropathy of the shoulders. Hypertrophic and degenerative changes spine. Surgical clips in the right upper quadrant. IMPRESSION: Left lower lobe infiltrate and small effusion is stable.
[2020-12-09 12:20] LABS: Appearance,Urine Clear (Clear); Bacteria,Urine Rare /hpf; Bilirubin,Urine Negative (Negative); Blood,Urine Small (Negative); Color,Urine Light Yellow; Glucose,Urine (UA) Negative (Negative); Hyaline Casts,Urine 1 /lpf (0-2); Ketones,Urine Negative (Negative); Leukocyte Esterase,Urine Large (Negative); Mucus,Urine Rare /hpf; Nitrite,Urine Negative (Negative); Protein,Urine 3+ (Negative); RBC,Urine 3 /hpf (0-5); Specific Gravity,Urine 1.011 (1.001-1.035); Urobilinogen,Urine <2.0 mg/dL (<2.0); WBC,Urine 24 /hpf (0-5)
--- NOTE | 2020-12-09 15:05 | P.CONS ---
History of Present Illness - Reason for Consult Consult date: 12/09/20 Peptic ulcer disease Requesting physician: Luke Woods - Chief Complaint Weakness, altered mental status changes - History of Present Illness This is a pleasant 70-year-old male who presented to the emergency department from [facility] 4 days ago for altered mental status changes fatigue and weakness. Has a past medical history including chr onic kidney disease, hypertension, hyperlipidemia, chronic anemia, chronic venous stasis, coronary artery disease status post 10 and history of GI bleed as well as H. pylori approximately 2 years ago is reportedly bedbound.. The patient states he's had some nausea and decreased appetite with weight loss over the last 3-6 months however not sure of how much. He denies any vomiting or abdominal pain. He does have a significant umbilical hernia which he states is nonpainful. He had a CT of the abdomen and pelvis which was significant for pleural effusions left greater than right. He reports his last colonoscopy approximately 2 years ago, no report available at this time. He had an upper e ndoscopy to 02/22/[address] Herman with findings of a 2 cm duodenal bulbar ulcer was oozing and status post epinephrine and Endo Clip placement along with antral gastritis. He states his bowel movements have been normal, no signs of GI bleed. He denies any black tarry stool, coffee-ground emesis. WBC 21.9, hemoglobin 9.7, hematocrit 31.2, platelets 307,000. Total bilirubin 0.4, alkaline phosphatase 150, AST 18, ALT 9. Clostridium difficile pending collection. Review of Systems REVIEW OF SYSTEMS: CARDIOPULMONARY: No chest pain or shortness of breath. Gastrointestinal: No abdominal pain. Some nausea, no vomiting. No hematemesis, coffee-ground emesis. No rectal bleeding, or melena. Decreased appetite. GENITOURINARY: No dysuria or hematuria. MUSCULOSKELETAL: Reports normal range of motion., Joint pain. SKIN: No rashes. No jaundice. ENDOCRINE: No chills, fevers. Reported weight loss over 3-6 months, unsure of how much. No polydipsia or polyuria. PSYCHIATRIC: Unremarkable. NEUROLOGY: No change in mental status. Denies dizziness, headache. ENT: Vision unremarkable. CONSTITUTIONAL: Weight loss. Weakness, fatigue. No fever, chills, night sweats. Past Medical History Past Medical History: Heart Failure, COPD, Diabetes Mellitus, Hyperlipidemia, Hypertension, Osteoarthritis (OA), Pneumonia, Renal Disease, Sleep Apnea/CPAP/BIPAP, Vascular Disorder Additional Past Medical History / Comment(s): IDDM type II, 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, chronic venous ulcer left anterior lower leg, sepsis from L leg wound, chronic anemia, hyperkalemia, CKD stage IV, UTIs, incontinence, DELVIN no longer using Cpap and is now on oxygen at 4l/nc atc, possible starting of dementia, confusion at times at night, bilate ral lower leg varicosities, umbilical hernia, past duodenal ulcer with repair, Hpylori, wheelchair bound, states pt may have skin issue on his buttocks. 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 Past Anesthesia/Blood Transfusion Reactions: No Reported Reaction, Motion Sickness Date of Last Stent Placement:: 10/2015 Smoking Status: Never smoker - Past Family History Father Family Medical History: COPD Additional Family Medical History / Comment(s): AT AGE 64- EMPHYSEMA(SMOKER) Mother Family Medical History: Diabetes Mellitus, Hypertension Additional Family Medical History / Comment(s): LUPUS, LEG AMPUTATED. MOM IN HER 60'S Medications and Allergies Home Medications Medication Instructions Recorded Confirmed Type allopurinoL [Zyloprim] 100 mg PO DAILY@0800 04/22/15 12/05/20 History Fish Oil/Dha/Epa [Fish Oil 1,200 1 cap PO DAILY@169909/06/15 12/05/20 History mg Fish Oil] Ferrous Sulfate [Iron (65 MG 325 mg PO DAILY@169910/23/15 12/05/20 History Elemental)] Atorvastatin [Lipitor] 20 mg PO HS@2100 12/09/19 12/05/20 History Aspirin EC [Ecotrin Low Dose] 81 mg PO DAILY@1700 08/08/20 12/05/20 History Pantoprazole [Protonix] 40 mg PO DAILY@0600 08/08/20 12/05/20 History Epoetin Avelino-Epbx [Retacrit] 20,000 unit SQ TU@1700 09/07/20 12/05/20 History Magnesium Hydroxide [Milk of 7,200 mg PO DAILY PRN 09/07/20 12/05/20 History Magnesia Concentrate] bisacodyL [Dulcolax] 10 mg RECTAL DAILY PRN 09/07/20 12/05/20 History cloNIDine HCL [Catapres] 0.1 mg PO TID@0800,1200,1700 09/07/20 12/05/20 History Ipratropium-Albuterol Nebulize 3 ml INHALATION RT-TID@08,12,17 11/06/20 12/05/20 History [Duoneb 0.5 mg-3 mg/3 ml Soln] Insulin Glargine,Hum.rec.anlog 20 unit SQ HS@2100 #0 11/12/20 12/05/20 Rx [Lantus Solostar] Lidocaine 5% Patch [Lidoderm 5% 2 patch TOPICAL DAILY patch 11/12/20 12/05/20 Rx Patch] Cholecalciferol [Vitamin D3 (25 25 mcg PO DAILY@1700 11/13/20 12/05/20 History Mcg = 1000 Iu)] Furosemide [Lasix] 40 mg PO DAILY@1400 11/13/20 12/05/20 History Isosorbide Mononitrate ER [Imdur] 30 mg PO DAILY@0800 11/13/20 12/05/20 History Labetalol [Trandate] 200 mg PO BID@0800,1700 11/13/20 12/05/20 History Na Phos,M-B/Na Phos,Di-Ba [Fleet 133 ml RECTAL DAILY PRN 11/13/20 12/05/20 History Adult] Sodium Bicarbonate Tab 650 mg PO TID@0800,1200,1700 11/13/20 12/05/20 History amLODIPine [Norvasc] 10 mg PO DAILY@0800 11/13/20 12/05/20 History hydrALAZINE HCL [Apresoline] 50 mg PO BID@0800,1700 11/13/20 12/05/20 History polyethylene glycoL 3350 [Miralax] 17 gm PO DAILY@0800 11/13/20 12/05/20 History Furosemide [Lasix] 60 mg PO DAILY@0600 12/05/20 12/05/20 History Glucerna Shake 1 can PO TID@0800,1200,1700 12/05/20 12/05/20 History Liquacel 30 mg PO BID@0800,1700 12/05/20 12/05/20 History Mag Hydrox/Al Hydrox/Simeth 30 ml PO Q6H PRN 12/05/20 12/05/20 History [Maalox] Allergies Allergy/AdvReac Type Severity Reaction Status Date / Time aspirin [From Anacin] Allergy Rash/Hives Verified 12/05/20 16:53 (Dulce brand ok) sulfamethoxazole AdvReac affects Verified 12/05/20 16:53 [From Bactrim] kidneys trimethoprim [From Bactrim] AdvReac Unknown Verified 12/05/20 16:53 Physical Exam Vitals: Vital Signs Temp Pulse Pulse Resp BP Pulse Ox 12/09/20 10:57 70 12/09/20 10:48 74 12/09/20 08:00 99.5 F 91 20 188/71 89 L 12/09/20 02:00 98.0 F 86 18 186/68 92 L 12/08/20 21:43 60 18 12/08/20 21:39 172/67 12/08/20 20:00 98.7 F 60 18 192/67 93 L Intake and Output 12/08/20 12/09/20 12/09/20 22:59 06:59 14:59 Other: Voiding Method Diaper Diaper # Voids 2 4 1 # Bowel Movements 1 1 General appearance: The patient is alert, oriented, appears in no acute distress. HET: Head is normocephalic and atraumatic. Conjunctiva pink. Sclera anicteric. Neck: Supple without lymphadenopathy. Trachea midline. Heart: S1 S2. Regular rate and rhythm. Lungs: Clear to auscultation. Abdomen: Soft, nontender, nondistended with bowel sounds. Large umbilical hernia, reducible, nonpainful. Extremities: Normal skin color and turgor. Bilateral pedal edema. Neurological: No focal deficits. Alert and oriented 3. Results CBC & Chem 7: 12/09/20 07:17 12/09/20 07:17 Labs: Abnormal Lab Results - Last 24 Hours (Table) 12/08/20 12/08/20 12/09/20 Range/Units 17:07 20:26 07:17 WBC 21.9 H (3.8-10.6) k/uL RBC 3.46 L (4.30-5.90) m/uL Hgb 9.7 L (13.0-17.5) gm/dL Hct 31.2 L (39.0-53.0) % RDW 17.1 H (11.5-15.5) % Neutrophils # 19.9 H (1.3-7.7) k/uL Lymphocytes # 0.7 L (1.0-4.8) k/uL BUN (9-20) mg/dL Creatinine (0.66-1.25) mg/dL Glucose (74-99) mg/dL POC Glucose (mg/dL) 205 H 190 H (75-99) mg/dL Alkaline Phosphatase (38-126) U/L Urine Protein (Negative) Urine Blood (Negative) Ur Leukocyte Esterase (Negative) Urine WBC (0-5) /hpf Urine WBC Clumps (None) /hpf Urine Bacteria (None) /hpf Urine Mucus (None) /hpf 12/09/20 12/09/20 12/09/20 Range/Units 07:17 08:00 11:45 WBC (3.8-10.6) k/uL RBC (4.30-5.90) m/uL Hgb (13.0-17.5) gm/dL Hct (39.0-53.0) % RDW (11.5-15.5) % Neutrophils # (1.3-7.7) k/uL Lymphocytes # (1.0-4.8) k/uL BUN 63 H (9-20) mg/dL Creatinine 3.31 H (0.66-1.25) mg/dL Glucose 144 H (74-99) mg/dL POC Glucose (mg/dL) 175 H (75-99) mg/dL Alkaline Phosphatase 150 H (38-126) U/L Urine Protein 3+ H (Negative) Urine Blood Small H (Negative) Ur Leukocyte Esterase Large H (Negative) Urine WBC 24 H (0-5) /hpf Urine WBC Clumps Occasional H (None) /hpf Urine Bacteria Rare H (None) /hpf Urine Mucus Rare H (None) /hpf 12/09/20 Range/Units 12:10 WBC (3.8-10.6) k/uL RBC (4.30-5.90) m/uL Hgb (13.0-17.5) gm/dL Hct (39.0-53.0) % RDW (11.5-15.5) % Neutrophils # (1.3-7.7) k/uL Lymphocytes # (1.0-4.8) k/uL BUN (9-20) mg/dL Creatinine (0.66-1.25) mg/dL Glucose (74-99) mg/dL POC Glucose (mg/dL) 162 H (75-99) mg/dL Alkaline Phosphatase (38-126) U/L Urine Protein (Negative) Urine Blood (Negative) Ur Leukocyte Esterase (Negative) Urine WBC (0-5) /hpf Urine WBC Clumps (None) /hpf Urine Bacteria (None) /hpf Urine Mucus (None) /hpf Comments: CT abdomen and pelvis impression: There is been interval development of pleural effusions left greater than right, no other significant interval change is evident, noncontrast exam, coronary artery disease and cardiomegaly. Assessment and Plan (1) Peptic ulcer disease Narrative/Plan: 70-year-old male who was transferred from [facility] to the emergency department for concerns of altered mental status changes, weakness and fatigue. He has significant comorbidities and apparently is bed bound. The patient is with complaints of some nausea no vomiting, decreased appetite and reported weight loss over the last 3-6 months of unknown amount. His last EGD was in December 2019 per reported black tarry stools, with findings including a 2 cm duodenal bulbar ulcer with status post appendectomy and Endo Clip placement and mild antral gastritis. He states his last colonoscopy was approximately 2 years ago no report available. Also has a reported history of H. pylori 2 years ago for which he states he was treated. The plans for endoscopic evaluation, will continue PPI and medical management. Current Visit: Yes Status: Acute Code(s): K27.9 - PEPTIC ULC, SITE UNSP, UNSP AC OR CHR, W/O HEMOR OR PERF SNOMED Code(s): 10569561 (2) Chronic anemia Current Visit: Yes Status: Acute Code(s): D64.9 - ANEMIA, UNSPECIFIED SNOMED Code(s): 619354796 (3) Altered mental status Current Visit: No Status: Acute Code(s): R41.82 - ALTERED MENTAL STATUS, UNSPECIFIED SNOMED Code(s): 847597582 (4) Weakness Current Visit: No Status: Acute Code(s): R53.1 - WEAKNESS SNOMED Code(s): 15139644 (5) Chronic renal insufficiency Current Visit: No Status: Acute Code(s): N18.9 - CHRONIC KIDNEY DISEASE, UNSPECIFIED SNOMED Code(s): 111543364 Plan: 1. Supportive care 2. Diet as tolerated 3. Protonix 40 mg twice a day 4. H. pylori stool antigen ordered 5. Patient underwent EGD 12/11/2019 for upper GI bleed, reviewed 6. No plans for any endoscopic evaluation at this time, we'll continue to monitor patient's symptoms AQ for this consultation, we will continue to follow Dr. Mack I agree with the dictator's note, documented as a scribe by Millicent Appiah.
--- NOTE | 2020-12-09 15:40 | PN ---
PROGRESS NOTE Patient is seen for followup for acute kidney injury on top of chronic kidney disease. He is mostly prerenal. Patient is maintained on IV fluids. His renal function is improving. The patient however, was admitted with nausea and he has not had any improvement in appetite. His is concerned regarding previous history of duodenal ulcer and she would like to have an EGD done to rule out any underlying peptic ulcer disease. PHYSICAL EXAMINATION: On examination today, blood pressure is 188/71, heart rate 91 per minute. He is afebrile. Examination of the heart S1, S2. Examination of lungs, decreased breath sounds at bases. Abdomen is soft. Morbidly obese. Examination of lower extremities shows chronic skin changes. No significant edema noted. LACE MENDER exam grossly intact. LAB: Show hemoglobin 9.7, sodium 142, potassium 4.0, BUN 63, serum creatinine 3.3 mg/dL. ASSESSMENT: 1. Acute kidney injury prerenal currently improving with IV hydration. 2. Hypertension uncontrolled, maintained on Norvasc, Trandate. 3. Metabolic acidosis maintained on oral sodium bicarb. 4. Nausea, decreased oral intake, not improving with improving renal function. The patient's states that he has had peptic ulcer disease previously. Has been complaining of heartburn and she would like to proceed with a GI consult. According to his , the patient has not had nausea previously with worsening renal function. PLAN: Increase labetalol. Decrease IV fluids. Consult GI for EGD. No need for renal replacement therapy yet. MMODL / IJN: [id number] /
[2020-12-09 17:21] LABS: Glucose,Whole Blood 195 mg/dL (75-99)
[2020-12-09] MEDS: ASPIRIN 81 MG PO SCH (17:28)
[2020-12-09] MEDS: FERROUS SULFATE 325 MG TAB PO SCH (17:28)
[2020-12-09] MEDS: CHOLECALCIFEROL 25 MCG (1000 IU) TABLET PO SCH (17:28)
[2020-12-09] MEDS: SYMBICORT 160-4.5 MCG INHALER INHALATION SCH (19:53)
[2020-12-09 20:22] LABS: Glucose,Whole Blood 203 mg/dL (75-99)
[2020-12-09] MEDS: PIPERACILLIN-TAZOBACTAM 3.375 GM in SODIUM CHLORIDE 0.9% 100 ML IVPB SCH (20:44)
[2020-12-09] MEDS: DOXAZOSIN 2 MG TAB PO SCH (20:45)
[2020-12-09] MEDS: ATORVASTATIN 20 MG TAB PO SCH (20:45)
[2020-12-09] MEDS: INSULIN DETEMIR (LEVEMIR) 100 UNIT/ML SYR SQ SCH (20:45)
--- NOTE | 2020-12-09 21:19 | PN ---
PROGRESS NOTE DATE OF SERVICE: 12/09/2020. HISTORY: This 70-year-old gentleman who was admitted with mental status acute metabolic insult and also had renal failure. The patient also had elevated WBC also at this time. The patient also had a history of congestive heart failure with diastolic dysfunction also. Patient being closely monitored. Nephrology is following the patient closely. The patient was also seen by Gastroenterology for possible peptic ulcer disease. Recommended Protonix. Patient had endoscopy last year. The hemoglobin 9.7 at this time. White count is elevated. A chest x-ray which was ordered and reviewed by me showed possible left lower lobe infiltrate. PAST MEDICAL: Reviewed. REVIEW OF SYSTEMS: CARDIOVASCULAR: As mentioned. GI: As mentioned. : No dysuria. MALARIOLOGIST: No numbness or weakness. CURRENT MEDICATIONS: Reviewed include DuoNeb q.i.d., zyloprim, Norvasc, aspirin, Lipitor, vitamin D3, Levemir, Imdur. PHYSICAL EXAMINATION: Patient alert oriented x3. Pulse 67, blood pressure 140/60, respirations 17, temperature 97.2, pulse ox 98% on 2 L. HEENT: Conjunctivae normal. LUNGS: Breath sounds diminished at the bases. Few scattered rhonchi. ABDOMEN: Soft, nontender. NERVOUS SYSTEM: Nonfocal. LAB STUDIES: WBC 21.2, hemoglobin 9.7, sodium 140, potassium 4.2 creatinine 3.31. The baseline creatinine is improved. ASSESSMENT: 1. Change in mental status acute metabolic encephalopathy. 2. Acute on chronic kidney failure. 3. Chronic kidney disease stage 3 baseline. 4. Acute left lower pneumonia possibly gram-negative. 5. Congestive heart failure with chronic diastolic dysfunction, without any acute exacerbation. 6. Chronic obstructive pulmonary disease. 7. Diabetes mellitus type 2. 8. Generalized deconditioning. 9. Bilateral chronic venous status. 10.Diabetes mellitus type 2. 11.Hypertension. 12.Hyperlipidemia. 13.Sleep apnea. 14.Peripheral vascular disease history. 15.Hypovolemic hyponatremia. 16.Acute renal failure. 17.Hyperkalemia. 18.FULL CODE. RECOMMENDATIONS: Recommend to continue current management and symptomatic treatment. Otherwise, at this time I would also recommend broad-spectrum IV antibiotics empirically. Course of bronchodilators. Otherwise monitor closely. Avoid nephrotoxic medications. Guarded prognosis because of multiple complex medical. Further recommendations to follow. MMODL / IJN: [id number] /
[2020-12-10] MEDS: PIPERACILLIN-TAZOBACTAM 3.375 GM in SODIUM CHLORIDE 0.9% 100 ML IVPB SCH ×3 (04:25→21:10)
[2020-12-10] MEDS: PANTOPRAZOLE 40 MG TABLET PO SCH (05:17)
[2020-12-10 07:18] LABS: Glucose,Whole Blood 124 mg/dL (75-99)
[2020-12-10] MEDS: SYMBICORT 160-4.5 MCG INHALER INHALATION SCH ×2 (07:44→20:13)
[2020-12-10] MEDS: IPRATROPIUM-ALBUTEROL 3 ML NEB INHALATION SCH ×4 (07:44→20:13)
[2020-12-10] MEDS: LIDOCAINE 5% PATCH TOPICAL SCH (08:43)
[2020-12-10] MEDS: LABETALOL 200 MG TAB PO SCH ×2 (08:43→16:19)
[2020-12-10] MEDS: polyethylene glycoL 3350 17 GM POWD.PACK PO SCH (08:44)
[2020-12-10] MEDS: SODIUM BICARBONATE TAB 650 MG TAB PO SCH (08:44)
[2020-12-10] MEDS: HEPARIN SODIUM,PORCINE/PF 5,000 UNIT/0.5 ML SYRINGE SQ SCH ×2 (08:44→21:10)
[2020-12-10] MEDS: ISOSORBIDE MONONITRATE ER 30 MG TAB.ER.24H PO SCH (08:44)
[2020-12-10] MEDS: allopurinoL 100 MG TAB PO SCH (08:45)
[2020-12-10] MEDS: amLODIPine 10 MG TAB PO SCH (08:45)
[2020-12-10 09:34] LABS: Basophils # (A) 0.03 X 10*3/uL (0.00-0.10); Basophils % (A) 0.2 %; Eosinophils # (A) 0.29 X 10*3/uL (0.04-0.35); Eosinophils % (A) 1.8 %; HCT 30.4 % (39.6-50.0); HGB 9.2 g/dL (13.0-17.0); Lymphocytes % (A) 5.5 %; MCH 27.9 pg (27.0-32.0); MCHC 30.3 g/dL (32.0-37.0); MCV 92.1 fL (80.0-97.0); Mean Platelet Volume 10.3 fL (9.5-12.2); Monocytes # (A) 1.24 X 10*3/uL (0.20-1.00); Monocytes % (A) 7.5 %; Neutrophils # (A) 13.88 X 10*3/uL (1.80-7.70); Neutrophils % (A) 84.2 %; Platelet Count 272 X 10*3/uL (140-440); RDW 16.3 % (11.5-14.5); WBC 16.48 X 10*3/uL (4.50-10.00)
[2020-12-10 10:19] LABS: African American GFR (CKD) 18.7 (60.0-200.0); Anion Gap 10.5 mmol/L (4.00-12.00); BUN/Creat Ratio 17.5 Ratio (12.00-20.00); Calcium 10.5 mg/dL (8.7-10.3); Carbon Dioxide 24.5 mmol/L (21.6-31.8); Non-African American GFR(CKD) 16.1 (60.0-200.0); Potassium 3.8 mmol/L (3.5-5.5)
--- NOTE | 2020-12-10 10:22 | P.PN ---
Subjective Patient is seen in follow-up for acute kidney injury on chronic kidney disease. Renal function gradually improving. Still feels nauseous. Oral intake slowly improving. No vomiting or diarrhea. Vital signs are stable. General: The patient appeared well nourished and normally developed. HEENT: Head exam is unremarkable. Neck is without jugular venous distension. LUNGS:Breath sounds decreased. HEART: Rate and Rhythm are regular. ABDOMEN: Soft, no distention. EXTREMITITES: No edema. Objective - Vital Signs Vital signs: Vital Signs Temp 98.3 F 12/10/20 07:59 Pulse 74 12/10/20 07:59 Resp 18 12/10/20 07:59 BP 179/58 12/10/20 07:59 Pulse Ox 98 12/10/20 07:59 Intake & Output 12/09/20 12/10/20 12/10/20 18:59 06:59 18:59 Intake Total 600 Balance 600 Intake: Intake, IV Titration 600 Amount Sodium Chloride 0.9% 1, 600 000 ml @ 50 mls/hr IV . Q20H [facility] Rx#:[id number] Other: Voiding Method Diaper Diaper Diaper # Voids 1 2 # Bowel Movements 1 - Labs CBC & Chem 7: 12/10/20 06:09 12/09/20 07:17 Labs: Abnormal Lab Results - Last 24 Hours (Table) 12/09/20 12/09/20 12/09/20 Range/Units 07:17 07:17 11:45 WBC 21.9 H (3.8-10.6) k/uL RBC 3.46 L (4.30-5.90) m/uL Hgb 9.7 L (13.0-17.5) gm/dL Hct 31.2 L (39.0-53.0) % MCHC (32.0-37.0) g/dL RDW 17.1 H (11.5-15.5) % Immature Gran # (0.00-0.04) X 10*3/uL Neutrophils # 19.9 H (1.3-7.7) k/uL Lymphocytes # 0.7 L (1.0-4.8) k/uL Monocytes # (0.20-1.00) X 10*3/uL BUN 63 H (9-20) mg/dL Creatinine 3.31 H (0.66-1.25) mg/dL Glucose 144 H (74-99) mg/dL POC Glucose (mg/dL) (75-99) mg/dL Alkaline Phosphatase 150 H (38-126) U/L Urine Protein 3+ H (Negative) Urine Blood Small H (Negative) Ur Leukocyte Esterase Large H (Negative) Urine WBC 24 H (0-5) /hpf Urine WBC Clumps Occasional H (None) /hpf Urine Bacteria Rare H (None) /hpf Urine Mucus Rare H (None) /hpf 12/09/20 12/09/20 12/09/20 Range/Units 12:10 17:20 20:20 WBC (3.8-10.6) k/uL RBC (4.30-5.90) m/uL Hgb (13.0-17.5) gm/dL Hct (39.0-53.0) % MCHC (32.0-37.0) g/dL RDW (11.5-15.5) % Immature Gran # (0.00-0.04) X 10*3/uL Neutrophils # (1.3-7.7) k/uL Lymphocytes # (1.0-4.8) k/uL Monocytes # (0.20-1.00) X 10*3/uL BUN (9-20) mg/dL Creatinine (0.66-1.25) mg/dL Glucose (74-99) mg/dL POC Glucose (mg/dL) 162 H 195 H 203 H (75-99) mg/dL Alkaline Phosphatase (38-126) U/L Urine Protein (Negative) Urine Blood (Negative) Ur Leukocyte Esterase (Negative) Urine WBC (0-5) /hpf Urine WBC Clumps (None) /hpf Urine Bacteria (None) /hpf Urine Mucus (None) /hpf 12/10/20 12/10/20 Range/Units 06:09 07:17 WBC 16.48 H (3.8-10.6) k/uL RBC 3.30 L (4.30-5.90) m/uL Hgb 9.2 L (13.0-17.5) gm/dL Hct 30.4 L (39.0-53.0) % MCHC 30.3 L (32.0-37.0) g/dL RDW 16.3 H (11.5-15.5) % Immature Gran # 0.14 H (0.00-0.04) X 10*3/uL Neutrophils # 13.88 H (1.3-7.7) k/uL Lymphocytes # (1.0-4.8) k/uL Monocytes # 1.24 H (0.20-1.00) X 10*3/uL BUN (9-20) mg/dL Creatinine (0.66-1.25) mg/dL Glucose (74-99) mg/dL POC Glucose (mg/dL) 124 H (75-99) mg/dL Alkaline Phosphatase (38-126) U/L Urine Protein (Negative) Urine Blood (Negative) Ur Leukocyte Esterase (Negative) Urine WBC (0-5) /hpf Urine WBC Clumps (None) /hpf Urine Bacteria (None) /hpf Urine Mucus (None) /hpf Microbiology - Last 24 Hours (Table) 12/09/20 22:40 Stool Culture - Preliminary Stool 12/09/20 11:45 Urine Culture - Preliminary Urine,Catheterized Assessment and Plan Plan: Assessment: 1. Acute kidney injury mostly prerenal improving with IV hydration. Creatinine 3.31 as of yesterday. 2. Chronic kidney disease stage IV with baseline creatinine in the range of 2.5-3. 3. Nausea. He does have history of duodenal ulcer. GI following. 4. Hypertension with chronic kidney disease. 5. Anemia of chronic kidney disease maintained on Aranesp. 6. Diabetes mellitus. Plan: Maintain normal saline at 50 mL an hour. Encourage oral intake. Avoid nephrotoxins. Increase doxazosin to 2 mg twice daily.
[2020-12-10 12:01] LABS: Glucose,Whole Blood 205 mg/dL (75-99)
--- NOTE | 2020-12-10 12:45 | P.PN ---
Subjective Progress Note Date: 12/10/20 Principal diagnosis: Peptic ulcer disease Patient was seen and examined sitting up in bed. He states that he did have some epigastric pain today especially after eating. States he is having some nausea however no vomiting. No other acute changes through the night. Eyes any difficulty with swallowing. Objective - Vital Signs Vital signs: Vital Signs Temp 98.3 F 12/10/20 07:59 Pulse 74 12/10/20 07:59 Resp 18 12/10/20 07:59 BP 179/58 12/10/20 07:59 Pulse Ox 98 12/10/20 07:59 Intake & Output 12/09/20 12/10/20 12/10/20 18:59 06:59 18:59 Intake Total 600 Balance 600 Intake: Intake, IV Titration 600 Amount Sodium Chloride 0.9% 1, 600 000 ml @ 50 mls/hr IV . Q20H [facility] Rx#:[id number] Other: Voiding Method Diaper Diaper Diaper # Voids 1 2 # Bowel Movements 1 - Exam General appearance: The patient is alert, oriented, appears in no acute distress. Obese. HET: Head is normocephalic and atraumatic. Conjunctiva pink. Sclera anicteric. Neck: Supple without lymphadenopathy. Abdomen: Soft, epigastric tenderness, nondistended with bowel sounds. No guar ding or rigidity. Extremities: Normal skin color and turgor. No pedal edema Skin: No rashes, no jaundice Neurological: No focal deficits. Alert and oriented 3. - Labs CBC & Chem 7: 12/10/20 06:09 12/10/20 06:09 Labs: Abnormal Lab Results - Last 24 Hours (Table) 12/09/20 12/09/20 12/09/20 Range/Units 07:17 07:17 11:45 WBC 21.9 H (3.8-10.6) k/uL RBC 3.46 L (4.30-5.90) m/uL Hgb 9.7 L (13.0-17.5) gm/dL Hct 31.2 L (39.0-53.0) % MCHC (32.0-37.0) g/dL RDW 17.1 H (11.5-15.5) % Immature Gran # (0.00-0.04) X 10*3/uL Neutrophils # 19.9 H (1.3-7.7) k/uL Lymphocytes # 0.7 L (1.0-4.8) k/uL Monocytes # (0.20-1.00) X 10*3/uL BUN 63 H (9-20) mg/dL Creatinine 3.31 H (0.66-1.25) mg/dL Glucose 144 H (74-99) mg/dL POC Glucose (mg/dL) (75-99) mg/dL Alkaline Phosphatase 150 H (38-126) U/L Urine Protein 3+ H (Negative) Urine Blood Small H (Negative) Ur Leukocyte Esterase Large H (Negative) Urine WBC 24 H (0-5) /hpf Urine WBC Clumps Occasional H (None) /hpf Urine Bacteria Rare H (None) /hpf Urine Mucus Rare H (None) /hpf 12/09/20 12/09/20 12/09/20 Range/Units 12:10 17:20 20:20 WBC (3.8-10.6) k/uL RBC (4.30-5.90) m/uL Hgb (13.0-17.5) gm/dL Hct (39.0-53.0) % MCHC (32.0-37.0) g/dL RDW (11.5-15.5) % Immature Gran # (0.00-0.04) X 10*3/uL Neutrophils # (1.3-7.7) k/uL Lymphocytes # (1.0-4.8) k/uL Monocytes # (0.20-1.00) X 10*3/uL BUN (9-20) mg/dL Creatinine (0.66-1.25) mg/dL Glucose (74-99) mg/dL POC Glucose (mg/dL) 162 H 195 H 203 H (75-99) mg/dL Alkaline Phosphatase (38-126) U/L Urine Protein (Negative) Urine Blood (Negative) Ur Leukocyte Esterase (Negative) Urine WBC (0-5) /hpf Urine WBC Clumps (None) /hpf Urine Bacteria (None) /hpf Urine Mucus (None) /hpf 12/10/20 12/10/20 Range/Units 06:09 07:17 WBC 16.48 H (3.8-10.6) k/uL RBC 3.30 L (4.30-5.90) m/uL Hgb 9.2 L (13.0-17.5) gm/dL Hct 30.4 L (39.0-53.0) % MCHC 30.3 L (32.0-37.0) g/dL RDW 16.3 H (11.5-15.5) % Immature Gran # 0.14 H (0.00-0.04) X 10*3/uL Neutrophils # 13.88 H (1.3-7.7) k/uL Lymphocytes # (1.0-4.8) k/uL Monocytes # 1.24 H (0.20-1.00) X 10*3/uL BUN (9-20) mg/dL Creatinine (0.66-1.25) mg/dL Glucose (74-99) mg/dL POC Glucose (mg/dL) 124 H (75-99) mg/dL Alkaline Phosphatase (38-126) U/L Urine Protein (Negative) Urine Blood (Negative) Ur Leukocyte Esterase (Negative) Urine WBC (0-5) /hpf Urine WBC Clumps (None) /hpf Urine Bacteria (None) /hpf Urine Mucus (None) /hpf Microbiology - Last 24 Hours (Table) 12/09/20 22:40 Stool Culture - Preliminary Stool 12/09/20 11:45 Urine Culture - Preliminary Urine,Catheterized Assessment and Plan (1) Peptic ulcer disease Narrative/Plan: 70-year-old male who was transferred from [facility] to the emergency department for concerns of altered mental status changes, weakness and fatigue. He has significant comorbidities and apparently is bed bound. The patient is with complaints of some nausea no vomiting, decreased appetite and reported weight loss over the last 3-6 months of unknown amount. His last EGD was in December 2019 per reported black tarry stools, with findings including a 2 cm duodenal bulbar ulcer with status post appendectomy and Endo Clip placement and mild antral gastritis. He states his last colonoscopy was approximately 2 years ago no report available. Also has a reported history of H. pylori 2 years ago for which he states he was treated. The plans for endoscopic evaluation, will continue PPI and medical management. Current Visit: Yes Status: Acute Code(s): K27.9 - PEPTIC ULC, SITE UNSP, UNSP AC OR CHR, W/O HEMOR OR PERF SNOMED Code(s): 05860711 (2) Chronic anemia Current Visit: Yes Status: Acute Code(s): D64.9 - ANEMIA, UNSPECIFIED SNOMED Code(s): 238470451 (3) Altered mental status Current Visit: No Status: Acute Code(s): R41.82 - ALTERED MENTAL STATUS, UNSPECIFIED SNOMED Code(s): 743107918 (4) Weakness Current Visit: No Status: Acute Code(s): R53.1 - WEAKNESS SNOMED Code(s): 92490151 (5) Chronic renal insufficiency Current Visit: No Status: Acute Code(s): N18.9 - CHRONIC KIDNEY DISEASE, UNSPECIFIED SNOMED Code(s): 236228771 (6) Epigastric abdominal pain Current Visit: Yes Status: Acute Code(s): R10.13 - EPIGASTRIC PAIN SNOMED Code(s): 40878437 Plan: 1. Supportive care 2. Diet as tolerated 3. Protonix 40 mg twice a day 4. H. pylori stool antigen ordered 5. Patient underwent EGD 12/11/2019 for upper GI bleed, reviewed 6. No plans for endoscopic evaluation at this time, if epigastric pain continues may need to consider upper endoscopy evaluation Thank you for this consultation, we will continue to follow Dr. Mack I agree with the dictator's note, documented as a scribe by Millicent Appiah.
[2020-12-10] MEDS ORDERED: FUROSEMIDE 40 MG TAB PO SCH (14:00)
[2020-12-10] MEDS: FERROUS SULFATE 325 MG TAB PO SCH (16:15)
[2020-12-10] MEDS: ASPIRIN 81 MG PO SCH (16:16)
[2020-12-10] MEDS: SODIUM CHLORIDE 0.9% 1,000 ML IV SCH (16:19)
[2020-12-10] MEDS ORDERED: DARBEPOETIN ALFA 60 MCG/0.3 ML SYRINGE SQ SCH (17:00)
[2020-12-10 17:30] LABS: Glucose,Whole Blood 157 mg/dL (75-99)
[2020-12-10] MEDS: ONDANSETRON 4 MG/2 ML VIAL IVP PRN (17:34)
--- NOTE | 2020-12-10 17:46 | PN ---
PROGRESS NOTE DATE OF SERVICE: 12/10/2020 INTERVAL HISTORY: This 70-year-old gentleman who was admitted with change in mental status, acute metabolic encephalopathy, had acute on chronic kidney failure. The patient also had some congestive heart failure. The patient is suspected to have acute left lower pneumonia possibly gram-negative. Patient started on broad spectrum IV antibiotics. The patient is improving significantly. Symptoms improved. PAST MEDICAL HISTORY: Reviewed. REVIEW OF SYSTEMS: Could not be taken. CURRENT MEDICATIONS: Noted. DuoNeb, Zyloprim, Norvasc, aspirin, Lipitor, Symbicort, Cardura and iron sulfate. PHYSICAL EXAM: GENERAL: Patient is alert, oriented x2. VITAL SIGNS: Pulse 71, blood pressure 130/62, respiration 18, temperature 98.2, pulse ox 94% on room air. HEENT: Conjunctivae normal. NECK: No jugular venous distention. No carotid bruits. No lymph node enlargement. RESPIRATORY: Breath sounds diminished at the bases. A few scattered rhonchi. HEART: S1 and S2, muffled. ABDOMEN: Soft, obese. EXTREMITIES: No edema, no swelling. NERVOUS: Diffusely weak. LAB STUDIES: WBC 16.2, hemoglobin 10.2, glucose 124, calcium is 10.5. ASSESSMENT: 1. Acute left lower pneumonia possibly gram-negative with sepsis. 2. Change in mental status, acute metabolic encephalopathy, multifactorial secondary to sepsis. 3. Acute on chronic kidney failure with acute tubular necrosis. 4. Chronic kidney stage 3 baseline. 5. Congestive heart failure with chronic diastolic dysfunction, without any acute exacerbation. 6. Chronic obstructive pulmonary disease. 7. Diabetes mellitus type 2. 8. Generalized deconditioning. 9. Bilateral chronic venostasis. 10.Hypertension. 11.Hyperlipidemia. 12.Sleep apnea. 13.Peripheral vascular disease history. 14.Hypovolemic hyponatremia. 15.Acute renal failure. 16.Hypertension. 17.FULL CODE. RECOMMENDATIONS AND DISCUSSION: I recommend to continue current management and continue symptomatic treatment. Recommend continue with broad-spectrum IV antibiotics. I would recommend repeat chest x-ray in the morning. Cultures are negative so far. Further recommendations to follow. MMODL / IJN: [id number] / MTDD
[2020-12-10 20:14] LABS: Glucose,Whole Blood 194 mg/dL (75-99)
[2020-12-10] MEDS: INSULIN DETEMIR (LEVEMIR) 100 UNIT/ML SYR SQ SCH (21:10)
[2020-12-10] MEDS: DOXAZOSIN 2 MG TAB PO SCH (21:10)
[2020-12-10] MEDS: ATORVASTATIN 20 MG TAB PO SCH (21:10)
[2020-12-11] MEDS: PANTOPRAZOLE 40 MG TABLET PO SCH (05:50)
[2020-12-11 06:59] LABS: Glucose,Whole Blood 105 mg/dL (75-99)
[2020-12-11] MEDS: HEPARIN SODIUM,PORCINE/PF 5,000 UNIT/0.5 ML SYRINGE SQ SCH ×2 (08:34→19:41)
[2020-12-11] MEDS: PIPERACILLIN-TAZOBACTAM 3.375 GM in SODIUM CHLORIDE 0.9% 100 ML IVPB SCH ×2 (08:34→19:43)
[2020-12-11] MEDS: amLODIPine 10 MG TAB PO SCH (08:35)
[2020-12-11] MEDS: LABETALOL 200 MG TAB PO SCH ×2 (08:35→16:11)
[2020-12-11] MEDS: polyethylene glycoL 3350 17 GM POWD.PACK PO SCH (08:35)
[2020-12-11] MEDS: ISOSORBIDE MONONITRATE ER 30 MG TAB.ER.24H PO SCH (08:35)
[2020-12-11] MEDS: allopurinoL 100 MG TAB PO SCH (08:35)
[2020-12-11] MEDS: SODIUM BICARBONATE TAB 650 MG TAB PO SCH (08:35)
[2020-12-11] MEDS: DOXAZOSIN 2 MG TAB PO SCH ×2 (08:36→20:44)
--- NOTE | 2020-12-11 08:46 | XR ---
EXAMINATION TYPE: XR chest 1V portable DATE OF EXAM: 12/11/2020 COMPARISON: 12/09/2020 HISTORY: Cough TECHNIQUE: Single frontal view of the chest is obtained. FINDINGS: There is left-sided infiltrate and small effusion. The heart is enlarged. There is no pneu mothorax. Arthropathy of the shoulders. IMPRESSION: Cardiomegaly and stable left lower lobe infiltrate and small effusion.
[2020-12-11] MEDS: LIDOCAINE 5% PATCH TOPICAL SCH (08:47)
[2020-12-11] MEDS: IPRATROPIUM-ALBUTEROL 3 ML NEB INHALATION SCH ×3 (08:49→20:30)
[2020-12-11] MEDS: SYMBICORT 160-4.5 MCG INHALER INHALATION SCH ×2 (08:49→20:30)
[2020-12-11 09:45] LABS: Basophils # (A) 0.03 X 10*3/uL (0.00-0.10); Basophils % (A) 0.2 %; Eosinophils # (A) 0.91 X 10*3/uL (0.04-0.35); Eosinophils % (A) 6.2 %; HCT 29.7 % (39.6-50.0); HGB 8.9 g/dL (13.0-17.0); Lymphocytes # (A) 0.83 X 10*3/uL (0.90-5.00); Lymphocytes % (A) 5.7 %; MCH 27.6 pg (27.0-32.0); MCV 92.2 fL (80.0-97.0); Mean Platelet Volume 10.6 fL (9.5-12.2); Monocytes # (A) 1.09 X 10*3/uL (0.20-1.00); Monocytes % (A) 7.4 %; Neutrophils # (A) 11.69 X 10*3/uL (1.80-7.70); Neutrophils % (A) 79.7 %; Platelet Count 275 X 10*3/uL (140-440); RBC 3.22 X 10*6/uL (4.40-5.60); RDW 16.2 % (11.5-14.5); WBC 14.66 X 10*3/uL (4.50-10.00)
[2020-12-11 10:38] LABS: ALT <8 U/L (10-49); AST 14 U/L (14-35); African American GFR (CKD) 19.3 (60.0-200.0); Albumin/Globulin Ratio 1.41 (1.60-3.17); Alkaline Phosphatase 112 U/L (41-126); BUN/Creat Ratio 17.43 Ratio (12.00-20.00); Calcium 9.7 mg/dL (8.7-10.3); Carbon Dioxide 25.6 mmol/L (21.6-31.8); Chloride 108 mmol/L (96-109); Globulin 2.7 g/dL (1.6-3.3); Glucose 103 mg/dL (70-110); Magnesium 1.9 mg/dL (1.5-2.4); Non-African American GFR(CKD) 16.7 (60.0-200.0); Potassium 4.2 mmol/L (3.5-5.5); Sodium 143 mmol/L (135-145); Total Bilirubin 0.3 mg/dL (0.3-1.2); Total Protein 6.5 g/dL (6.2-8.2)
--- NOTE | 2020-12-11 11:22 | P.PN ---
Subjective Patient is seen in follow-up for acute kidney injury on chronic kidney disease. Renal function stable. Nausea improved. Oral intake slowly improving. No vomiting or diarrhea. Vital signs are stable. General: The patient appeared well nourished and normally developed. HEENT: Head exam is unremarkable. Neck is without jugular venous distension. LUNGS:Breath sounds decreased. HEART: Rate and Rhythm are regular. ABDOMEN: Soft, no distention. EXTREMITITES: No edema. Objective - Vital Signs Vital signs: Vital Signs Temp 98.2 F 12/11/20 07:58 Pulse 68 12/11/20 08:59 Resp 16 12/11/20 08:59 BP 191/69 12/11/20 07:58 Pulse Ox 96 12/11/20 08:49 Intake & Output 12/10/20 12/11/20 12/11/20 18:59 06:59 18:59 Intake Total 237 Balance 237 Weight 127.006 kg Intake: Oral 237 Other: Voiding Method Diaper # Bowel Movements 1 - Labs CBC & Chem 7: 12/11/20 05:55 12/11/20 05:55 Labs: Abnormal Lab Results - Last 24 Hours (Table) 12/10/20 12/10/20 12/10/20 Range/Units 12:00 17:28 20:13 WBC (4.50-10.00) X 10*3/uL RBC (4.40-5.60) X 10*6/uL Hgb (13.0-17.0) g/dL Hct (39.6-50.0) % MCHC (32.0-37.0) g/dL RDW (11.5-14.5) % Immature Gran # (0.00-0.04) X 10*3/uL Neutrophils # (1.80-7.70) X 10*3/uL Lymphocytes # (0.90-5.00) X 10*3/uL Monocytes # (0.20-1.00) X 10*3/uL Eosinophils # (0.04-0.35) X 10*3/uL BUN (9.0-27.0) mg/dL Creatinine (0.6-1.5) mg/dL Est GFR (CKD-EPI)AfAm (60.0-200.0) Est GFR (CKD-EPI)NonAf (60.0-200.0) POC Glucose (mg/dL) 205 H 157 H 194 H (75-99) mg/dL ALT (10-49) U/L Albumin/Globulin Ratio (1.60-3.17) g/dL 12/11/20 12/11/20 12/11/20 Range/Units 05:55 05:55 06:56 WBC 14.66 H (4.50-10.00) X 10*3/uL RBC 3.22 L (4.40-5.60) X 10*6/uL Hgb 8.9 L (13.0-17.0) g/dL Hct 29.7 L (39.6-50.0) % MCHC 30.0 L (32.0-37.0) g/dL RDW 16.2 H (11.5-14.5) % Immature Gran # 0.11 H (0.00-0.04) X 10*3/uL Neutrophils # 11.69 H (1.80-7.70) X 10*3/uL Lymphocytes # 0.83 L (0.90-5.00) X 10*3/uL Monocytes # 1.09 H (0.20-1.00) X 10*3/uL Eosinophils # 0.91 H (0.04-0.35) X 10*3/uL BUN 61.0 H (9.0-27.0) mg/dL Creatinine 3.5 H (0.6-1.5) mg/dL Est GFR (CKD-EPI)AfAm 19.3 L (60.0-200.0) Est GFR (CKD-EPI)NonAf 16.7 L (60.0-200.0) POC Glucose (mg/dL) 105 H (75-99) mg/dL ALT <8 L (10-49) U/L Albumin/Globulin Ratio 1.41 L (1.60-3.17) g/dL Microbiology - Last 24 Hours (Table) 12/09/20 11:45 Urine Culture - Preliminary Urine,Catheterized Presumptive Staph aureus 12/09/20 22:40 Stool Culture - Preliminary Stool Assessment and Plan Plan: Assessment: 1. Acute kidney injury mostly prerenal improving with IV hydration. Creatinine 3.5 this morning. 2. Chronic kidney disease stage IV with baseline creatinine in the range of 2.5-3. 3. Nausea. He does have history of duodenal ulcer. GI following. Improved. 4. Hypertension with chronic kidney disease. Blood pressure on the higher side. 5. Anemia of chronic kidney disease maintained on Aranesp. 6. Diabetes mellitus. Plan: Maintain normal saline at 50 mL an hour. Diuretics held. Encourage oral intake. Avoid nephrotoxins. Add hydralazine 25 mg 3 times daily.
[2020-12-11 11:38] LABS: Glucose,Whole Blood 169 mg/dL (75-99)
--- NOTE | 2020-12-11 13:56 | P.PN ---
Subjective Progress Note Date: 12/11/20 Principal diagnosis: Peptic ulcer disease She was seen and examined lying in bed. His is at the bedside. He states he is feeling well, had some dry heaves yesterday otherwise denies any nausea or vomiting today. Denies any abdominal pain. His states he is only eating applesauce and puddings, patient states he just does not have an appetite. He denies any difficulty with swallowing, pain with swallowing, regurgitation. Discussed with patient importance of nutrition and trying to eat to build up his strength in muscles. He is taking Glucerna 3 times a day. Objective - Vital Signs Vital signs: Vital Signs Temp 98.2 F 12/11/20 07:58 Pulse 68 12/11/20 08:59 Resp 16 12/11/20 08:59 BP 191/69 12/11/20 07:58 Pulse Ox 96 12/11/20 08:49 Intake & Output 12/10/20 12/11/20 12/11/20 18:59 06:59 18:59 Intake Total 237 Balance 237 Weight 127.006 kg Intake: Oral 237 Other: Voiding Method Diaper # Bowel Movements 1 - Exam General appearance: The patient is alert, oriented, appears in no acute distress. Obese. HET: Head is normocephalic and atraumatic. Conjunctiva pink. Sclera anicteric. Neck: Supple without lymphadenopathy. Abdomen: Soft, nontender, nondistended with bowel sounds. No guarding or rigidity. Extremities: Normal skin color and turgor. No pedal edema Skin: No rashes, no jaundice Neurological: No focal deficits. Alert and oriented 3. - Labs CBC & Chem 7: 12/11/20 05:55 12/11/20 05:55 Labs: Abnormal Lab Results - Last 24 Hours (Table) 12/10/20 12/10/20 12/10/20 Range/Units 12:00 17:28 20:13 WBC (4.50-10.00) X 10*3/uL RBC (4.40-5.60) X 10*6/uL Hgb (13.0-17.0) g/dL Hct (39.6-50.0) % MCHC (32.0-37.0) g/dL RDW (11.5-14.5) % Immature Gran # (0.00-0.04) X 10*3/uL Neutrophils # (1.80-7.70) X 10*3/uL Lymphocytes # (0.90-5.00) X 10*3/uL Monocytes # (0.20-1.00) X 10*3/uL Eosinophils # (0.04-0.35) X 10*3/uL BUN (9.0-27.0) mg/dL Creatinine (0.6-1.5) mg/dL Est GFR (CKD-EPI)AfAm (60.0-200.0) Est GFR (CKD-EPI)NonAf (60.0-200.0) POC Glucose (mg/dL) 205 H 157 H 194 H (75-99) mg/dL ALT (10-49) U/L Albumin/Globulin Ratio (1.60-3.17) g/dL 12/11/20 12/11/20 12/11/20 Range/Units 05:55 05:55 06:56 WBC 14.66 H (4.50-10.00) X 10*3/uL RBC 3.22 L (4.40-5.60) X 10*6/uL Hgb 8.9 L (13.0-17.0) g/dL Hct 29.7 L (39.6-50.0) % MCHC 30.0 L (32.0-37.0) g/dL RDW 16.2 H (11.5-14.5) % Immature Gran # 0.11 H (0.00-0.04) X 10*3/uL Neutrophils # 11.69 H (1.80-7.70) X 10*3/uL Lymphocytes # 0.83 L (0.90-5.00) X 10*3/uL Monocytes # 1.09 H (0.20-1.00) X 10*3/uL Eosinophils # 0.91 H (0.04-0.35) X 10*3/uL BUN 61.0 H (9.0-27.0) mg/dL Creatinine 3.5 H (0.6-1.5) mg/dL Est GFR (CKD-EPI)AfAm 19.3 L (60.0-200.0) Est GFR (CKD-EPI)NonAf 16.7 L (60.0-200.0) POC Glucose (mg/dL) 105 H (75-99) mg/dL ALT <8 L (10-49) U/L Albumin/Globulin Ratio 1.41 L (1.60-3.17) g/dL Microbiology - Last 24 Hours (Table) 12/09/20 11:45 Urine Culture - Preliminary Urine,Catheterized Presumptive Staph aureus 12/09/20 22:40 Stool Culture - Preliminary Stool Assessment and Plan (1) Peptic ulcer disease Narrative/Plan: 70-year-old male who was transferred from [facility] to the emergency department for concerns of altered mental status changes, weakness and fatigue. He has significant comorbidities and apparently is bed bound. The patient is with complaints of some nausea no vomiting, decreased appetite and reported weight loss over the last 3-6 months of unknown amount. His last EGD was in December 2019 per reported black tarry stools, with findings including a 2 cm duodenal bulbar ulcer with status post appendectomy and Endo Clip placement and mild antral gastritis. He states his last colonoscopy was approximately 2 years ago no report available. Also has a reported history of H. pylori 2 years ago for which he states he was treated. The plans for endoscopic evaluation, will continue PPI and medical management. Patient denies any symptoms of nausea, vomiting, epigastric pain, difficulty swallowing. He has however stating that he does not have an appetite is not taking in much oral nutrition. Patient encouraged to increase his oral intake. Current Visit: Yes Status: Acute Code(s): K27.9 - PEPTIC ULC, SITE UNSP, UNSP AC OR CHR, W/O HEMOR OR PERF SNOMED Code(s): 22137394 (2) Chronic anemia Current Visit: Yes Status: Acute Code(s): D64.9 - ANEMIA, UNSPECIFIED SNOMED Code(s): 047497060 (3) Altered mental status Current Visit: No Status: Acute Code(s): R41.82 - ALTERED MENTAL STATUS, UNSPECIFIED SNOMED Code(s): 987404748 (4) Weakness Current Visit: No Status: Acute Code(s): R53.1 - WEAKNESS SNOMED Code(s): 87364887 (5) Chronic renal insufficiency Current Visit: No Status: Acute Code(s): N18.9 - CHRONIC KIDNEY DISEASE, UNSPECIFIED SNOMED Code(s): 784199286 (6) Epigastric abdominal pain Narrative/Plan: Resolved Current Visit: Yes Status: Acute Code(s): R10.13 - EPIGASTRIC PAIN SNOMED Code(s): 00670792 Plan: 1. Supportive care 2. Diet as tolerated, encourage oral intake 3. Protonix 40 mg twice a day 4. H. pylori stool antigen ordered 5. Patient underwent EGD 12/11/2019 for upper GI bleed, reviewed 6. No plans for endoscopic evaluation at this time 1. Discussed with patient and his need for increased oral intake of nutritious foods to increase his energy and muscle strength Thank you for this consultation, we will sign off at this time Dr. Mack I agree with the dictator's note, documented as a scribe by Millicent Appiah.
[2020-12-11] MEDS: SODIUM CHLORIDE 0.9% 1,000 ML IV SCH (15:26)
[2020-12-11] MEDS: ASPIRIN 81 MG PO SCH (16:11)
[2020-12-11] MEDS: hydrALAZINE HCL 25 MG TAB PO SCH ×2 (16:11→19:41)
[2020-12-11] MEDS: FERROUS SULFATE 325 MG TAB PO SCH (16:11)
[2020-12-11 16:54] LABS: Glucose,Whole Blood 190 mg/dL (75-99)
[2020-12-11] MEDS ORDERED: DAPTOmycin 500 MG in SODIUM CHLORIDE 0.9% 50 ML IVPB SCH (18:00)
[2020-12-11 18:16] LABS: Appearance,Urine Cloudy (Clear); Bacteria,Urine Rare /hpf; Bilirubin,Urine Negative (Negative); Blood,Urine Small (Negative); Budding Yeast,Urine Many /hpf; Color,Urine Light Yellow; Glucose,Urine (UA) Negative (Negative); Ketones,Urine Negative (Negative); Leukocyte Esterase,Urine Large (Negative); Nitrite,Urine Negative (Negative); Protein,Urine 3+ (Negative); RBC,Urine 5 /hpf (0-5); Specific Gravity,Urine 1.012 (1.001-1.035); Urobilinogen,Urine <2.0 mg/dL (<2.0); WBC,Urine 46 /hpf (0-5)
--- NOTE | 2020-12-11 19:21 | PN ---
PROGRESS NOTE DATE OF SERVICE: 12/11/2020 INTERVAL HISTORY: This is a 70-year-old gentleman who was admitted with acute left lower lobe pneumonia possibly gram-negative pneumonia with sepsis is being closely monitored at this time. The sensorium is slightly improved. A chest x-ray done today which was reviewed personally by me showed significant improvement. The patient is being closely monitored at this time. PHYSICAL EXAMINATION: GENERAL: Alert and oriented x2. VITAL SIGNS: The pulse is 63, blood pressure 130/60, respiration 19, temperature 98 degrees, pulse ox 94% on room air. HEENT: Conjunctivae normal. NECK: No jugular venous distention. No carotid bruits. No lymph node enlargement. RESPIRATORY: Breath sounds diminished at the bases. A few scattered rhonchi. HEART: S1 and S2, muffled. ABDOMEN: Soft, no tenderness. NERVOUS: Diffusely weak. LABS: WBC 14.6, hemoglobin is 8.9. Accu-Cheks are noted. ASSESSMENT: 1. Acute left lower lobe pneumonia possibly gram-negative with sepsis. 2. Change in mental status with acute metabolic encephalopathy multifactorial secondary to sepsis. 3. Acute on chronic kidney failure with acute tubular necrosis. 4. Chronic kidney disease stage 3 baseline. 5. Congestive heart failure with chronic diastolic dysfunction, without any acute component. 6. Chronic obstructive pulmonary disease history. 7. Diabetes mellitus type 2. 8. Generalized deconditioning. 9. Bilateral chronic venostasis. 10.Hypertension. 11.Hyperlipidemia. 12.Sleep apnea. 13.Peripheral vascular disease history. 14.Hypovolemic hyponatremia. 15.Acute renal failure. 16.Hypertension. 17.FULL CODE. RECOMMENDATION AND DISCUSSION: Recommend to continue current medications, continue with monitoring and symptomatic treatment. Continue the empiric antibiotics. Continue the rest of the medications. Possible return to ECF soon. Follow with Dr. Flowers in the outpatient setting. MMODL / IJN: [id number] /
[2020-12-11] MEDS: ATORVASTATIN 20 MG TAB PO SCH (19:41)
[2020-12-11 19:58] LABS: Glucose,Whole Blood 183 mg/dL (75-99)
[2020-12-11] MEDS: INSULIN DETEMIR (LEVEMIR) 100 UNIT/ML SYR SQ SCH (20:45)
[2020-12-11] MEDS ORDERED: DOXYCYCLINE 100 MG CAP PO SCH (21:00)
[2020-12-12] MEDS: PANTOPRAZOLE 40 MG TABLET PO SCH (05:52)
--- NOTE | 2020-12-12 06:29 | CONS ---
CONSULTATION DATE OF SERVICE: 12/11/2020 REASON FOR CONSULTATION: Positive urine culture with MRSA. HISTORY OF PRESENT ILLNESS: The patient is a 70-year-old male who is a resident of a senior care with a past medical history of chronic kidney disease, hypertension, hyperlipidemia, and lower extremity venous stasis ulceration. The patient was sent to the ER about 7 days ago for evaluation of mental status changes, fatigue and decreased p.o. intake. Symptoms had been going on for 3 days before presentation to the hospital. Apparently the patient did have a workup done in the outpatient setting with evidence of renal failure and the patient was sent to the ER for evaluation of renal failure and Nephrology evaluation. The patient was complaining of nausea and vomiting 4 days before presentation to the hospital. The patient's nausea and vomiting subsequently has resolved. Currently the patient denies any headache or URI symptoms. Denies having any chest pain or shortness of breath. Occasional cough. No further nausea, vomiting, abdominal pain, no diarrhea. Has been complaining of some frequency of urine but no burning. The patient has been incontinent of urine per the nursing staff and did not have any Maria catheter placed on admission to the hospital. The patient was afebrile and no fever has been recorded in the hospital. The patient did have a white count which was normal at 9.8 on 12/05/2020. The patient noticed to have white count jumping to 21.9 on 12/09/2020 for the patient did have blood cultures done which are so far negative. Initial UA was negative. Repeat urine is positive and the patient has been treated with Zosyn. However, the culture now finalized with MRSA that has prompted this Infectious Disease consultation. REVIEW OF SYSTEMS: Positive points have been mentioned in HPI. Rest of systems are negative. PAST MEDICAL HISTORY: Heart failure, COPD, diabetes mellitus, hypertension, hyperlipidemia, osteoarthritis, renal insufficiency, sleep apnea, history ESBL VRE infection. PAST SURGICAL HISTORY: Appendectomy, cholecystectomy, PTCA with stent, bilateral cataract surgery. SOCIAL HISTORY: Denies smoking, drinking or drug use. FAMILY HISTORY: Father with history of COPD. ALLERGIES TO: SULFAMETHOXAZOLE and ASPIRIN. MEDICATIONS: The patient is currently on Zosyn, DuoNeb, Zyloprim, Norvasc, aspirin, Lipitor, Dulcolax, Symbicort, Cardura, iron sulfate, heparin, hydralazine, Levemir, Imdur, Trandate, Narcan, Zofran, Protonix and Zosyn. PHYSICAL EXAMINATION: VITAL SIGNS: Blood pressure is 166/64, pulse of 86, temperature 99.2. He is 92% on room air. GENERAL DESCRIPTION: Patient is an elderly male lying in in no distress. No tachypnea or accessory muscles of respiration use. HEENT: Examination shows slight pallor, no scleral icterus. Oral mucous membrane is dry. NECK: Trachea central, no thyromegaly. LUNGS: Unlabored breathing, decreased breath sounds at the bases. No wheeze or crackle. HEART: S1-S2, regular rate and rhythm. ABDOMEN: Soft, no tenderness. No guarding or rigidity. EXTREMITIES: No edema of the feet. No evidence of any cellulitis. SKIN: No rash or mass palpable. NEUROLOGICAL: Patient is awake, alert, oriented times three. Mood and affect normal. LABS: Hemoglobin 8.8, white count 14.66, BUN of 61, creatinine 3.5, admission creatinine was 4.40. Electrolytes have been normal. Liver enzymes are normal. Urine with MRSA. Blood cultures have been negative. Chest x-ray with left sided effusion and compressive atelectasis. DIAGNOSTIC IMPRESSION: 1. Patient presented to the hospital with generalized weakness, nausea and vomiting in this patient noticed to have evidence of renal failure for which the patient did have a workup in progress during this admission. The patient did have white count elevation on the 7th which led to obtaining a UA which was positive and culture now finalized with MRSA. Subsequent blood culture has been negative. Patient is incontinent of urine and did not have any Maria catheter and not a very good historian as far as his urinary symptoms are concerned. Concern for possible MRSA fascitis, less likely pyelonephritis versus contaminant. 2. Patient has evidence of a left-sided pleural effusion and compressive atelectasis. No mention of any consolidation. Clinically not behaving as pneumonia with no cough, sputum production and no need for supplemental oxygen. 3. Patient with renal insufficiency and high risk of nephrotoxicity from vancomycin. PLAN: 1. We will obtain a clean-catch urine sample, straight cath if needed. 2. Discontinue Zosyn. Clinically no evidence of any pneumonia. 3. We will start the patient on daptomycin while waiting for the repeat urine culture to finalize. 4. We will follow on his clinical condition to further adjust medication if needed. Thank you for this consultation. Will follow this patient along with you. MMODL / IJN: [id number] /
[2020-12-12] MEDS: SODIUM BICARBONATE TAB 650 MG TAB PO SCH (07:07)
[2020-12-12] MEDS: DOXAZOSIN 2 MG TAB PO SCH ×2 (07:08→23:41)
[2020-12-12] MEDS: LABETALOL 200 MG TAB PO SCH ×2 (07:08→16:14)
[2020-12-12] MEDS: hydrALAZINE HCL 25 MG TAB PO SCH ×3 (07:08→23:40)
[2020-12-12] MEDS: HEPARIN SODIUM,PORCINE/PF 5,000 UNIT/0.5 ML SYRINGE SQ SCH ×2 (07:08→23:40)
[2020-12-12] MEDS: ISOSORBIDE MONONITRATE ER 30 MG TAB.ER.24H PO SCH (07:08)
[2020-12-12] MEDS: amLODIPine 10 MG TAB PO SCH (07:08)
[2020-12-12] MEDS: allopurinoL 100 MG TAB PO SCH (07:08)
[2020-12-12] MEDS: LIDOCAINE 5% PATCH TOPICAL SCH (07:09)
[2020-12-12] MEDS: SODIUM CHLORIDE 0.9% 1,000 ML IV SCH (07:09)
[2020-12-12] MEDS: polyethylene glycoL 3350 17 GM POWD.PACK PO SCH (07:18)
[2020-12-12 07:29] LABS: Glucose,Whole Blood 96 mg/dL (75-99)
[2020-12-12] MEDS: IPRATROPIUM-ALBUTEROL 3 ML NEB INHALATION SCH ×3 (07:41→16:37)
[2020-12-12] MEDS: SYMBICORT 160-4.5 MCG INHALER INHALATION SCH ×2 (07:41→16:38)
--- NOTE | 2020-12-12 11:02 | P.PN ---
Subjective Patient is seen in follow-up for acute kidney injury on chronic kidney disease. Renal function stable as of yesterday. Still has intermittent nausea. Oral intake slowly improving. No vomiting or diarrhea. Vital signs are stable. General: The patient appeared well nourished and normally developed. HEENT: Head exam is unremarkable. Neck is without jugular venous distension. LUNGS:Breath sounds decreased. HEART: Rate and Rhythm are regular. ABDOMEN: Soft, no distention. EXTREMITITES: No edema. Objective - Vital Signs Vital signs: Vital Signs Temp 98.2 F 12/12/20 07:49 Pulse 70 12/12/20 07:50 Resp 18 12/12/20 07:49 BP 176/65 12/12/20 07:49 Pulse Ox 93 L 12/12/20 07:49 Intake & Output 12/11/20 12/12/20 12/12/20 18:59 06:59 18:59 Intake Total 474 237 Balance 474 237 Intake: Oral 474 237 Other: Voiding Method Diaper # Voids 6 2 1 # Bowel Movements 1 - Labs CBC & Chem 7: 12/11/20 05:55 12/11/20 05:55 Labs: Abnormal Lab Results - Last 24 Hours (Table) 12/11/20 12/11/20 12/11/20 Range/Units 11:36 16:52 18:00 POC Glucose (mg/dL) 169 H 190 H (75-99) mg/dL Urine Protein 3+ H (Negative) Urine Blood Small H (Negative) Ur Leukocyte Esterase Large H (Negative) Urine WBC 46 H (0-5) /hpf Urine WBC Clumps Few H (None) /hpf Urine Bacteria Rare H (None) /hpf Urine Yeast (Budding) Many H (None) /hpf 12/11/20 Range/Units 19:56 POC Glucose (mg/dL) 183 H (75-99) mg/dL Urine Protein (Negative) Urine Blood (Negative) Ur Leukocyte Esterase (Negative) Urine WBC (0-5) /hpf Urine WBC Clumps (None) /hpf Urine Bacteria (None) /hpf Urine Yeast (Budding) (None) /hpf Microbiology - Last 24 Hours (Table) 12/11/20 18:00 Urine Culture - Preliminary Urine,Clean Catch 12/10/20 15:46 Blood Culture - Preliminary Blood No Growth after 24 hours 12/09/20 11:45 Urine Culture - Final Urine,Catheterized Methicillin resist S. aureus Assessment and Plan Plan: Assessment: 1. Acute kidney injury mostly prerenal from poor intake and infection. Creatinine 3.5 as of yesterday. 2. Chronic kidney disease stage IV with baseline creatinine in the range of 2.5-3 secondary to diabetic kidney disease. 3. Nausea. He does have history of duodenal ulcer. GI following. Improved. 4. Hypertension with chronic kidney disease. Blood pressure on the higher side. 5. Anemia of chronic kidney disease maintained on Aranesp. 6. Diabetes mellitus. 7. MRSA UTI maintained on antibiotics. Plan: Maintain normal saline at 50 mL an hour. Diuretics held. Encourage oral intake. Avoid nephrotoxins. Increase dose of hydralazine.
[2020-12-12 12:26] LABS: Glucose,Whole Blood 148 mg/dL (75-99)
--- NOTE | 2020-12-12 14:36 | P.PN ---
Subjective Progress Note Date: 12/12/20 This is a 70-year-old male who was recently admitted with acute left lower lobe pneumonia possibly gram-negative with sepsis and is being closely monitored. Multiple medical consultations including nephrology, GI, and now infectious disease following. Patient is currently maintained on IV antibiotics in the form of daptomycin as original urine culture finalized showing MRSA. Repeat urinalysis was done and awaiting for finalization to determine discharge antibiotics. Patient to continue with gentle IV hydration and is maintained on sodium bicarb tablets and will continue. Patient is more awake and alert today with family member at the bedside. Patient denies any chest pain or palpitations. Patient is afebrile. No reports of vomiting with occasional intermittent nausea noted. Objective - Vital Signs Vital signs: Vital Signs Temp 98.2 F 12/12/20 07:49 Pulse 70 12/12/20 07:50 Resp 18 12/12/20 07:49 BP 176/65 12/12/20 07:49 Pulse Ox 93 L 12/12/20 07:49 Intake & Output 12/11/20 12/12/20 12/12/20 18:59 06:59 18:59 Intake Total 474 237 Balance 474 237 Intake: Oral 474 237 Other: Voiding Method Diaper # Voids 6 2 1 # Bowel Movements 1 - Exam Gen: This is a 70-year-old male sitting up in bed awake, alert and oriented 2. Well-developed, well-nourished, obese. Temp is 98.2F, pulse is 75, respirations are 18, blood pressure is 176/65, oxygen saturation is 93% on room air HEENT: Head is atraumatic, normocephalic. Pupils equal, round. Sclerae is anicteric. NECK: Supple. No JVD. No lymphadenopathy. No thyromegaly. LUNGS: Breath sounds diminished bilaterally with a few scattered rhonchi noted. Some mild crackles noted at the lower left base. No intercostal retractions. HEART: S1, S2 are muffled ABDOMEN: Soft. Obese. Bowel sounds are present. No masses. No tenderness. EXTREMITIES: No pedal edema. No calf tenderness. NEUROLOGICAL: Patient is awake, alert and oriented x2. Diffusely weak. - Labs CBC & Chem 7: 12/11/20 05:55 12/11/20 05:55 Labs: Abnormal Lab Results - Last 24 Hours (Table) 12/11/20 12/11/20 12/11/20 Range/Units 11:36 16:52 18:00 POC Glucose (mg/dL) 169 H 190 H (75-99) mg/dL Urine Protein 3+ H (Negative) Urine Blood Small H (Negative) Ur Leukocyte Esterase Large H (Negative) Urine WBC 46 H (0-5) /hpf Urine WBC Clumps Few H (None) /hpf Urine Bacteria Rare H (None) /hpf Urine Yeast (Budding) Many H (None) /hpf 12/11/20 Range/Units 19:56 POC Glucose (mg/dL) 183 H (75-99) mg/dL Urine Protein (Negative) Urine Blood (Negative) Ur Leukocyte Esterase (Negative) Urine WBC (0-5) /hpf Urine WBC Clumps (None) /hpf Urine Bacteria (None) /hpf Urine Yeast (Budding) (None) /hpf Microbiology - Last 24 Hours (Table) 12/11/20 18:00 Urine Culture - Preliminary Urine,Clean Catch 12/10/20 15:46 Blood Culture - Preliminary Blood No Growth after 24 hours 12/09/20 11:45 Urine Culture - Final Urine,Catheterized Methicillin resist S. aureus Assessment and Plan Assessment: Acute left lower lobe pneumonia possibly gram-negative sepsis Change in mental status with acute metabolic encephalopathy multifactorial secondary to sepsis Acute on chronic kidney failure with acute tubular necrosis Chronic kidney disease stage III baseline Congestive heart failure with chronic diastolic dysfunction without any acute component Chronic obstructive pulmonary disease history Diabetes mellitus type 2 Generalized deconditioning Bilateral chronic venous stasis Hypertension Hyperlipidemia Sleep apnea Peripheral vascular disease history Hypovolemic hyponatremia acute renal failure No code Recommendations and discussion: Recommend continue with current medications, management, and symptomatic treatment. Patient is maintained on IV daptomycin and infectious disease now following as urine culture finalized showing MRSA. Urine culture is pending at this time. Nephrology also following and patient is maintained on gentle IV hydration along with sodium bicarb tablets and will continue. Patient is more awake and alert today and continues to be weak and will be going to [facility] once stabilized and discharged. Due to multiple complex medical issues, prognosis is guarded. Further recommendations to follow.
[2020-12-12 14:50] LABS: African American GFR (CKD) 22.4 (60.0-200.0); Anion Gap 9.9 mmol/L (4.00-12.00); BUN/Creat Ratio 17.74 Ratio (12.00-20.00); Calcium 10.6 mg/dL (8.7-10.3); Carbon Dioxide 22.1 mmol/L (21.6-31.8); Non-African American GFR(CKD) 19.3 (60.0-200.0); Potassium 3.9 mmol/L (3.5-5.5)
[2020-12-12 14:51] LABS: Magnesium 1.8 mg/dL (1.5-2.4)
[2020-12-12] MEDS: ASPIRIN 81 MG PO SCH (16:14)
[2020-12-12] MEDS: FERROUS SULFATE 325 MG TAB PO SCH (16:15)
[2020-12-12 17:12] LABS: Glucose,Whole Blood 122 mg/dL (75-99)
[2020-12-12 20:22] LABS: Glucose,Whole Blood 118 mg/dL (75-99)
[2020-12-12] MEDS: ATORVASTATIN 20 MG TAB PO SCH (23:40)
[2020-12-12] MEDS: INSULIN DETEMIR (LEVEMIR) 100 UNIT/ML SYR SQ SCH (23:40)
--- NOTE | 2020-12-12 23:46 | PN ---
PROGRESS NOTE DATE OF SERVICE: 12/12/2020 REASON FOR FOLLOW UP: MRSA urinary tract infection. INTERVAL HISTORY: Patient is currently afebrile. Patient is breathing comfortably. Denies having any chest pain or shortness of breath or cough. No nausea. No vomiting. No abdominal pain or diarrhea. PHYSICAL EXAMINATION: Blood pressure 156/68, pulse of 56, temperature 98.6. He is 92% on room air. General description: The patient is an elderly male lying in bed in no distress. Respiratory system: Unlabored breathing, clear to auscultation anteriorly. HEART: S1, S2. Regular rate and rhythm. ABDOMEN: Soft, no tenderness. LABS: BUN of 55, creatinine 3.1. Urine cultures currently pending. DIAGNOSTIC IMPRESSION AND PLAN: Patient with positive culture with MRSA Patient to continue with daptomycin in view of his borderline kidney function while waiting for repeat urine culture to finalize and monitor clinical course closely. MMODL / IJN: [id number] / MTDD
[2020-12-13] MEDS: SODIUM CHLORIDE 0.9% 1,000 ML IV SCH (04:57)
[2020-12-13] MEDS: PANTOPRAZOLE 40 MG TABLET PO SCH (06:03)
[2020-12-13 06:59] LABS: Glucose,Whole Blood 93 mg/dL (75-99)
[2020-12-13 07:39] VITALS: TEMP 98.2
[2020-12-13] MEDS: IPRATROPIUM-ALBUTEROL 3 ML NEB INHALATION SCH ×2 (07:45→12:15)
[2020-12-13] MEDS: SYMBICORT 160-4.5 MCG INHALER INHALATION SCH (07:46)
[2020-12-13 07:48] VITALS: RESP 16
[2020-12-13] MEDS: LABETALOL 200 MG TAB PO SCH (07:50)
[2020-12-13] MEDS: polyethylene glycoL 3350 17 GM POWD.PACK PO SCH ×2 (07:50→10:41)
[2020-12-13] MEDS: SODIUM BICARBONATE TAB 650 MG TAB PO SCH (07:50)
[2020-12-13] MEDS: DOXAZOSIN 2 MG TAB PO SCH (07:51)
[2020-12-13] MEDS: hydrALAZINE HCL 25 MG TAB PO SCH (07:51)
[2020-12-13] MEDS: HEPARIN SODIUM,PORCINE/PF 5,000 UNIT/0.5 ML SYRINGE SQ SCH (07:51)
[2020-12-13] MEDS: allopurinoL 100 MG TAB PO SCH (07:52)
[2020-12-13] MEDS: amLODIPine 10 MG TAB PO SCH (07:52)
[2020-12-13] MEDS: LIDOCAINE 5% PATCH TOPICAL SCH (07:52)
[2020-12-13] MEDS: ISOSORBIDE MONONITRATE ER 30 MG TAB.ER.24H PO SCH (07:52)
[2020-12-13] MEDS: ONDANSETRON 4 MG/2 ML VIAL IVP PRN (08:34)
[2020-12-13 10:23] LABS: Protein, Total 6.2 g/dL (6.2-8.2)
[2020-12-13 11:17] VITALS: BP 156/67
--- NOTE | 2020-12-13 11:33 | P.PN ---
Subjective Patient is seen in follow-up for acute kidney injury on chronic kidney disease. Renal function stable as of yesterday. Still has intermittent nausea. Oral intake slowly improving. No vomiting or diarrhea. No changes overnight. Vital signs are stable. General: The patient appeared well nourished and normally developed. HEENT: Head exam is unremarkable. Neck is without jugular venous distension. LUNGS:Breath sounds decreased. HEART: Rate and Rhythm are regular. ABDOMEN: Soft, no distention. EXTREMITITES: No edema. Objective - Vital Signs Vital signs: Vital Signs Temp 98.2 F 12/13/20 07:39 Pulse 59 L 12/13/20 11:16 Resp 16 12/13/20 08:00 BP 156/67 12/13/20 11:16 Pulse Ox 95 12/13/20 07:47 Intake & Output 12/12/20 12/13/20 12/13/20 18:59 06:59 18:59 Intake Total 237 Balance 237 Weight 127.006 kg Intake: Oral 237 Other: Voiding Method Diaper # Voids 3 3 - Labs CBC & Chem 7: 12/11/20 05:55 12/12/20 06:49 Labs: Abnormal Lab Results - Last 24 Hours (Table) 12/12/20 12/12/20 12/12/20 Range/Units 06:49 12:24 17:11 BUN 55.0 H (9.0-27.0) mg/dL Creatinine 3.1 H (0.6-1.5) mg/dL Est GFR (CKD-EPI)AfAm 22.4 L (60.0-200.0) Est GFR (CKD-EPI)NonAf 19.3 L (60.0-200.0) POC Glucose (mg/dL) 148 H 122 H (75-99) mg/dL Calcium 10.6 H (8.7-10.3) mg/dL 12/12/20 Range/Units 20:20 BUN (9.0-27.0) mg/dL Creatinine (0.6-1.5) mg/dL Est GFR (CKD-EPI)AfAm (60.0-200.0) Est GFR (CKD-EPI)NonAf (60.0-200.0) POC Glucose (mg/dL) 118 H (75-99) mg/dL Calcium (8.7-10.3) mg/dL Microbiology - Last 24 Hours (Table) 12/11/20 18:00 Urine Culture - Final Urine,Clean Catch 12/11/20 18:01 Blood Culture - Preliminary Blood No Growth after 24 hours 12/10/20 15:46 Blood Culture - Preliminary Blood No Growth after 48 hours 12/09/20 22:40 Stool Culture - Preliminary Stool Assessment and Plan Plan: Assessment: 1. Acute kidney injury mostly prerenal from poor intake and infection. Creatinine 3.1 as of yesterday. 2. Chronic kidney disease stage IV with baseline creatinine in the range of 2.5-3 secondary to diabetic kidney disease. 3. Nausea. He does have history of duodenal ulcer. GI following. Improved. 4. Hypertension with chronic kidney disease. Blood pressure on the higher side. 5. Anemia of chronic kidney disease maintained on Aranesp. 6. Diabetes mellitus. 7. MRSA UTI maintained on antibiotics. 8. Hypercalcemia. Vitamin D discontinued. Vitamin D level XXXVIII.6. Plan: Maintain normal saline at 50 mL an hour. Diuretics held. Encourage oral intake. Avoid nephrotoxins. Follow-up pending workup for hypercalcemia. AM labs pending.
[2020-12-13 11:50] LABS: ALT 7 U/L (4-49); AST 17 U/L (17-59); African American GFR (CKD) 25 (>60 ml/min/1.73 sqM); Albumin 3.6 g/dL (3.5-5.0); Albumin/Globulin Ratio 1.2; Alkaline Phosphatase 112 U/L (38-126); Anion Gap 9 mmol/L; Blood Urea Nitrogen 47 mg/dL (9-20); Calcium 9.9 mg/dL (8.4-10.2); Carbon Dioxide 23 mmol/L (22-30); Chloride 109 mmol/L (98-107); Globulin 2.9 g/dL; Glucose 85 mg/dL (74-99); Non-African American GFR(CKD) 22 (>60 ml/min/1.73 sqM); Sodium 141 mmol/L (137-145); Total Bilirubin 0.4 mg/dL (0.2-1.3); Total Protein 6.5 g/dL (6.3-8.2)
[2020-12-13 12:05] LABS: Glucose,Whole Blood 195 mg/dL (75-99)
[2020-12-13 12:28] VITALS: PULSE 68
--- NOTE | 2020-12-13 13:38 | P.DS ---
Providers Date of admission: 12/06/20 14:34 Expected date of discharge: 12/13/20 Attending physician: Luke Woods Consults: 12/05/20 19:16 Consult Physician Routine Consulting Provider: Camille Cruz Consult Reason/Comments: acute on chronic kidney disease Do you want consulting provider notified?: Yes 12/07/20 11:54 Consult Physician Routine Consulting Provider: Jenni Davis Consult Reason/Comments: acute on chronic renal failure Do you want consulting provider notified?: Already Contacted 12/11/20 17:05 Consult Physician Routine Consulting Provider: Cristian Watson Consult Reason/Comments: positive urine culture Do you want consulting provider notified?: Yes Primary care physician: Chance Flowers Hospital Course: Final diagnosis Acute left lower lobe pneumonia possibly gram-negative sepsis Change in mental status with acute metabolic encephalopathy multifactorial secondary to sepsis Acute on chronic kidney failure with acute tubular necrosis Chronic kidney disease stage III baseline Congestive heart failure with chronic diastolic dysfunction without any acute component Chronic obstructive pulmonary disease history Diabetes mellitus type 2 Generalized deconditioning Bilateral chronic venous stasis Hypertension Hyperlipidemia Sleep apnea Peripheral vascular disease history Hypovolemic hyponatremia acute renal failure No code Discharge disposition Patient is being discharged in a stable condition with guarded prognosis to [facility]. Patient will follow-up with Dr. Flowers in the outpatient setting upon discharge. Patient is to continue with oral Augmentin twice daily for the next 5 days and then may discontinue to complete the course. Recommend repeat labs to monitor kidney functions, electrolytes, and CBC closely. Total time taken is greater than 35 minutes. Hospital course This is a 70-year-old male who was recently admitted with acute left lower lobe pneumonia possibly gram-negative with sepsis and is being closely monitored. Multiple medical consultations including nephrology, GI, and now infectious disease following. Patient is currently maintained on IV antibiotics in the form of daptomycin as original urine culture finalized showing MRSA. Repeat urinalysis was done and awaiting for finalization to determine discharge antibiotics. Patient to continue with gentle IV hydration and is maintained on sodium bicarb tablets and will continue. Patient is more awake and alert today with family member at the bedside. Patient denies any chest pain or palpitations. Patient is afebrile. No reports of vomiting with occasional intermittent nausea noted. 12/13/2020 Patient is seen and evaluated in follow-up continues to be lethargic although easily arousable. Repeat urine cultures finalized showing no growth and will continue with oral Augmentin twice daily for the next 5 days to complete the course. Patient has been afebrile. Patient's oral intake is improving slowly and needs continued encouragement. Patient Is having intermittent episodes of nausea and denies any vomiting. Will add Zofran ODT as needed. Patient was also being followed closely by nephrology and will need outpatient follow-up along with repeat labs. Creatinine today is 2.84 with a BUN of 47. Sodium is 141 and potassium is 4.0. Parathyroid hormone intact slightly elevated at 85.7 and recommend close outpatient follow-up. Calcium is 9.9 today. Recommend close follow-up with CBC and CMP as well. Recommend to continue monitoring Accu-Cheks before meals and at bedtime. Recommend continuing with breathing inhalational treatments as well. Repeat Covid testing today was negative. Currently no reports of chest pain, shortness of breath, or palpitations. Patient is afebrile. No reports of nausea or vomiting and patient is tolerating diet. Patient will be going to [facility] today. On exam vital signs are stable. Cardio S1, S2 are muffled. Respiratory system shows diminished breath sounds at the bases with some mild crackles noted on the left. Abdomen is soft and obese, and nontender. Nervous system shows diffuse weakness. Please refer to medication reconciliation sheet for a list of medications. Patient Condition at Discharge: Stable Plan - Discharge Summary Discharge Rx Participant: No New Discharge Prescriptions: New Fluticasone/Salmeterol [Advair 250-50 Diskus] 1 each IH DAILY 30 Days #1 blst.w.dev Amoxic-Pot Clav 500-125 mg [Augmentin 500-125 mg] 1 tab PO Q12HR 5 Days #10 tab hydrALAZINE HCL [Apresoline] 50 mg PO TID tab Doxazosin [Cardura] 2 mg PO BID tab Sodium Bicarbonate Tab 650 mg PO DAILY tab Labetalol [Trandate] 400 mg PO BID@0800,1700 tab Ondansetron Odt [Zofran Odt] 4 mg PO Q8HR PRN #30 tab PRN Reason: Nausea Continue allopurinoL [Zyloprim] 100 mg PO DAILY@0800 Fish Oil/Dha/Epa [Fish Oil 1,200 mg Fish Oil] 1 cap PO DAILY@1700 Ferrous Sulfate [Iron (65 MG Elemental)] 325 mg PO DAILY@1700 Atorvastatin [Lipitor] 20 mg PO HS@2100 Aspirin EC [Ecotrin Low Dose] 81 mg PO DAILY@1700 Pantoprazole [Protonix] 40 mg PO DAILY@0600 Magnesium Hydroxide [Milk of Magnesia Concentrate] 7,200 mg PO DAILY PRN PRN Reason: Constipation bisacodyL [Dulcolax] 10 mg RECTAL DAILY PRN PRN Reason: Constipation Epoetin Avelino-Epbx [Retacrit] 20,000 unit SQ TU@1700 Lidocaine 5% Patch [Lidoderm 5% Patch] 2 patch TOPICAL DAILY patch Insulin Glargine,Hum.rec.anlog [Lantus Solostar] 20 unit SQ HS@2100 #0 Liquacel 30 mg PO BID@0800,1700 Ipratropium-Albuterol Nebulize [Duoneb 0.5 mg-3 mg/3 ml Soln] 3 ml INHALATION RT-TID@08,12,17 Na Phos,M-B/Na Phos,Di-Ba [Fleet Adult] 133 ml RECTAL DAILY PRN PRN Reason: Constipation amLODIPine [Norvasc] 10 mg PO DAILY@0800 Isosorbide Mononitrate ER [Imdur] 30 mg PO DAILY@0800 polyethylene glycoL 3350 [Miralax] 17 gm PO DAILY@0800 Cholecalciferol [Vitamin D3 (25 Mcg = 1000 Iu)] 25 mcg PO DAILY@1700 Glucerna Shake 1 can PO TID@0800,1200,1700 Mag Hydrox/Al Hydrox/Simeth [Maalox] 30 ml PO Q6H PRN PRN Reason: GI DISTRESS Discontinued cloNIDine HCL [Catapres] 0.1 mg PO TID@0800,1200,1700 Labetalol [Trandate] 200 mg PO BID@0800,1700 Furosemide [Lasix] 60 mg PO DAILY@0600 Sodium Bicarbonate Tab 650 mg PO TID@0800,1200,1700 Furosemide [Lasix] 40 mg PO DAILY@1400 hydrALAZINE HCL [Apresoline] 50 mg PO BID@0800,1700 Discharge Medication List allopurinoL [Zyloprim] 100 mg PO DAILY@0800 10/19/15 [History] Fish Oil/Dha/Epa [Fish Oil 1,200 mg Fish Oil] 1 cap PO DAILY@17009/06/15 [History] Ferrous Sulfate [Iron (65 MG Elemental)] 325 mg PO DAILY@169910/23/15 [History] Atorvastatin [Lipitor] 20 mg PO HS@2100 12/09/19 [History] Aspirin EC [Ecotrin Low Dose] 81 mg PO DAILY@17008/08/20 [History] Pantoprazole [Protonix] 40 mg PO DAILY@0608/08/20 [History] Epoetin Avelino-Epbx [Retacrit] 20,000 unit SQ TU@169909/07/20 [History] Magnesium Hydroxide [Milk of Magnesia Concentrate] 7,200 mg PO DAILY PRN 09/07/20 [History] bisacodyL [Dulcolax] 10 mg RECTAL DAILY PRN 09/07/20 [History] Ipratropium-Albuterol Nebulize [Duoneb 0.5 mg-3 mg/3 ml Soln] 3 ml INHALATION RT-TID@08,12,17 11/06/20 [History] Insulin Glargine,Hum.rec.anlog [Lantus Solostar] 20 unit SQ HS@2100 #0 11/12/20 [Rx] Lidocaine 5% Patch [Lidoderm 5% Patch] 2 patch TOPICAL DAILY patch 11/12/20 [Rx] Cholecalciferol [Vitamin D3 (25 Mcg = 1000 Iu)] 25 mcg PO DAILY@17011/13/20 [History] Isosorbide Mononitrate ER [Imdur] 30 mg PO DAILY@0811/13/20 [History] Na Phos,M-B/Na Phos,Di-Ba [Fleet Adult] 133 ml RECTAL DAILY PRN 11/13/20 [History] amLODIPine [Norvasc] 10 mg PO DAILY@0811/13/20 [History] polyethylene glycoL 3350 [Miralax] 17 gm PO DAILY@0800 11/13/20 [History] Glucerna Shake 1 can PO TID@0800,1200,1700 12/05/20 [History] Liquacel 30 mg PO BID@0800,1700 12/05/20 [History] Mag Hydrox/Al Hydrox/Simeth [Maalox] 30 ml PO Q6H PRN 12/05/20 [History] Amoxic-Pot Clav 500-125 mg [Augmentin 500-125 mg] 1 tab PO Q12HR 5 Days #10 tab 12/13/20 [Rx] Doxazosin [Cardura] 2 mg PO BID tab 12/13/20 [Rx] Fluticasone/Salmeterol [Advair 250-50 Diskus] 1 each IH DAILY 30 Days #1 blst.w.dev 12/13/20 [Rx] Labetalol [Trandate] 400 mg PO BID@0800,1700 tab 12/13/20 [Rx] Ondansetron Odt [Zofran Odt] 4 mg PO Q8HR PRN #30 tab 12/13/20 [Rx] Sodium Bicarbonate Tab 650 mg PO DAILY tab 12/13/20 [Rx] hydrALAZINE HCL [Apresoline] 50 mg PO TID tab 12/13/20 [Rx] Follow up Appointment(s)/Referral(s): Chance Flowers MD [Primary Care Provider] - 1-2 days Afshin Mcintyre DO [STAFF PHYSICIAN] - 1 Week Ambulatory/Diagnostic Orders: Complete Blood Count w/diff [LAB.AMB] Time Frame: 3 Days, Location: None Selected Activity/Diet/Wound Care/Special Instructions: Patient is going to [facility] Activity as tolerated Continue antibiotics for 5 days and then may discontinue Repeat labs of CBC and BMP in 2-3 days Continue with medications as prescribed Follow-up nephrology outpatient Continue with consistent carb heart healthy diet Continue to monitor Accu-Cheks Continue with breathing inhalational treatments Discharge Disposition: TRANSFER TO SNF/ECF
[2020-12-13 14:08] LABS: Albumin 3.24 g/dL (3.80-4.90); Gamma Globulin 1.04 g/dL (0.70-1.50)
--- NOTE | 2020-12-13 19:39 | PN ---
PROGRESS NOTE DATE OF SERVICE: 12/13/2020 REASON FOR FOLLOWUP: Urinary tract infection. INTERVAL HISTORY: Patient is afebrile. The patient is breathing comfortably. Denies having any chest pain, shortness of breath or cough. No abdominal pain, no diarrhea. PHYSICAL EXAMINATION: Blood pressure 110/69, pulse of 72, temperature 98.2. He is 93% on room air. General description is an elderly male lying in bed in no distress. Respiratory system: Unlabored breathing, clear to auscultation anteriorly. Heart S1, S2. Regular rate and rhythm. Abdomen soft, no tenderness. LABS: Creatinine is down to 2.84. Repeat urine is negative. DIAGNOSTIC IMPRESSION AND PLAN: Patient with a positive urine culture with MRSA, possible cystitis or contamination. Repeat urine was slightly positive. Blood culture negative. Daptomycin can be safely discontinued. No need for antibiotic on discharge. at the bedside. Questions were answered. MMODL / IJN: [id number] /
[2020-12-16 11:08] LABS: Angiotensin-1 Converting Enz. 27 U/L (8-52)
[2020-12-16 20:22] LABS: Vitamin D, 1, 25-Dihydroxy 15 pg/mL (20 - 79)
== END 2020-12-13 14:46 | DRG 682 ==
LOC: EC 16:34 → 1SOBS 19:17 → 6NMEDSUR 20:09 → OBSVTOIN 12-06 14:34
PROVIDERS: ADMIT Hospitalist; ATTEND Hospitalist
DX: N17.0 Acute kidney failure with tubular necrosis (principal); A41.50 Gram-negative sepsis, unspecified; J15.6 Pneumonia due to other Gram-negative bacteria; G93.41 Metabolic encephalopathy; R65.20 Severe sepsis without septic shock; Z68.41 Body mass index [BMI] 40.0-44.9, adult; E87.1 Hypo-osmolality and hyponatremia; E87.2 Acidosis; I13.2 Hypertensive heart and chronic kidney disease with heart failure and with stage 5 chronic kidney disease, or end stage renal disease; I50.32 Chronic diastolic (congestive) heart failure; J44.0 Chronic obstructive pulmonary disease with (acute) lower respiratory infection; J98.11 Atelectasis; L97.929 Non-pressure chronic ulcer of unspecified part of left lower leg with unspecified severity; L97.919 Non-pressure chronic ulcer of unspecified part of right lower leg with unspecified severity; N39.0 Urinary tract infection, site not specified; N18.5 Chronic kidney disease, stage 5; B95.62 Methicillin resistant Staphylococcus aureus infection as the cause of diseases classified elsewhere; D63.1 Anemia in chronic kidney disease; E11.22 Type 2 diabetes mellitus with diabetic chronic kidney disease; E11.51 Type 2 diabetes mellitus with diabetic peripheral angiopathy without gangrene; E66.9 Obesity, unspecified; Z20.822 Contact with and (suspected) exposure to COVID-19; E78.5 Hyperlipidemia, unspecified; E83.52 Hypercalcemia; E86.0 Dehydration; E86.1 Hypovolemia; E87.5 Hyperkalemia; G47.33 Obstructive sleep apnea (adult) (pediatric); I07.1 Rheumatic tricuspid insufficiency; I25.10 Atherosclerotic heart disease of native coronary artery without angina pectoris; I27.20 Pulmonary hypertension, unspecified; I87.8 Other specified disorders of veins; Z87.11 Personal history of peptic ulcer disease; K42.9 Umbilical hernia without obstruction or gangrene; I87.2 Venous insufficiency (chronic) (peripheral); R32 Unspecified urinary incontinence; T50.2X5A Adverse effect of carbonic-anhydrase inhibitors, benzothiadiazides and other diuretics, initial encounter; Z74.01 Bed confinement status; Z79.4 Long term (current) use of insulin; Z79.82 Long term (current) use of aspirin; Z79.899 Other long term (current) drug therapy; Z82.49 Family history of ischemic heart disease and other diseases of the circulatory system; Z82.5 Family history of asthma and other chronic lower respiratory diseases; Z83.3 Family history of diabetes mellitus; Z86.19 Personal history of other infectious and parasitic diseases; Z90.49 Acquired absence of other specified parts of digestive tract; Z95.5 Presence of coronary angioplasty implant and graft; F03.90 Unspecified dementia, unspecified severity, without behavioral disturbance, psychotic disturbance, mood disturbance, and anxiety; Z87.440 Personal history of urinary (tract) infections; Z87.01 Personal history of pneumonia (recurrent); Z98.42 Cataract extraction status, left eye; Z98.41 Cataract extraction status, right eye; Z99.3 Dependence on wheelchair; Z66 Do not resuscitate; Z88.6 Allergy status to analgesic agent; Z88.2 Allergy status to sulfonamides
CPT/HCPCS: 36415; 70450; 71045; 74176; 80048; 80053; 80306; 81001; 82164; 82306; 82652; 82803; 83690; 83735; 83880; 83970; 84100; 84165; 85025; 85610; 85730; 86334; 86704; 86706; 86850; 86900; 86901; 87040; 87045; 87046; 87077; 87086; 87186; 87324; 87340; 87635; 93005; 94640; 94760; 99285

== ENCOUNTER 2021-01-02 | Inpatient (IN) | payer MEDICARE, BC | END 2021-01-08 15:44 | DRG 871 | PROVIDERS: ADMIT Internal Medicine | CPT/HCPCS: 36415; 70450; 71045; 71046; 74176; 76705; 80048; 80053; 81001; 83605; 83735; 83880; 84100; 84145; 85025; 85027; 85610; 85730; 86140; 87040; 87635; 93005; 94640; 94760; 99285 ==

== ENCOUNTER 2021-07-10 21:18 | Observation (INO) | payer BC, MEDICARE ==
[2021-07-10] MEDS ORDERED: IPRATROPIUM-ALBUTEROL 3 ML NEB INHALATION STA (21:44)
[2021-07-10] MEDS ORDERED: KETOROLAC 15 MG/ML 1 ML VIAL IVP STA (21:44)
[2021-07-10] MEDS ORDERED: methylPREDNISolone SOD SUCCI 125 MG/2 ML VIAL IV STA (21:44)
[2021-07-10] MEDS ORDERED: SODIUM CHLORIDE 0.9% 1,000 ML IV STA (21:44)
--- NOTE | 2021-07-10 21:46 | ED ---
Chest Pain HPI - General Chief Complaint: Chest Pain Stated Complaint: Chest Pressure Time Seen by Provider: 07/10/21 21:39 Source: patient, EMS, RN notes reviewed, old records reviewed, Caregiver Mode of arrival: EMS Limitations: no limitations - History of Present Illness Initial Comments: This is a 70-year-old male presented today for evaluation of chest pain. Chest pain or abdominal pain. Positive nausea occasional hiccups pain symptoms for about 3 days now. Hiccups have been going on for a couple days as well not improved. No fevers travel history or sick contacts. Patient has a long medical history with multiple comorbidities from COPD or heart issues. Dialysis was pulmonary edema. Patient has no current diaphoresis or significant s hortness of breath MD Complaint: chest pain, other (hiccups) Onset: during rest Pain Location: substernal Pain Radiation: none Severity: mild Severity scale (1-10): 2 Quality: tightness Consistency: constant Improves With: nothing Worsens With: nothing Context: recent illness Anginal Symptoms: nausea, dyspnea Other Symptoms: palpitations Treatments Prior to Arrival: none - Related Data Home Medications Medication Instructions Recorded Confirmed allopurinoL [Zyloprim] 100 mg PO DAILY 04/22/15 07/10/21 Fish Oil/Dha/Epa [Fish Oil 1,200 1 cap PO DAILY@0 09/06/15 07/10/21 mg Fish Oil] Ferrous Sulfate [Iron (65 MG 325 mg PO DAILY@169910/23/15 07/10/21 Elemental)] Atorvastatin [Lipitor] 20 mg PO HS 12/09/19 07/10/21 Aspirin EC [Ecotrin Low Dose] 81 mg PO DAILY@0 08/08/20 07/10/21 Pantoprazole [Protonix] 40 mg PO DAILY 08/08/20 07/10/21 Epoetin Avelino-Epbx [Retacrit] 20,000 unit SQ TU 09/07/20 07/10/21 bisacodyL [Dulcolax] 10 mg RECTAL DAILY PRN 09/07/20 07/10/21 Ipratropium-Albuterol Nebulize 3 ml INHALATION RT-TID 11/06/20 07/10/21 [Duoneb 0.5 mg-3 mg/3 ml Soln] Cholecalciferol [Vitamin D3 (25 25 mcg PO DAILY@1700 11/13/20 07/10/21 Mcg = 1000 Iu)] Isosorbide Mononitrate ER [Imdur] 30 mg PO DAILY 11/13/20 07/10/21 amLODIPine [Norvasc] 5 mg PO DAILY 11/13/20 07/10/21 Acetaminophen Tab [Tylenol] 650 mg PO Q4H PRN 01/02/21 07/10/21 Fluticasone/Salmeterol [Advair 1 puff INHALATION RT-BID 01/02/21 07/10/21 250-50 Diskus] Guaifenesin/Dextromethorphan 5 ml PO TID PRN 01/02/21 07/10/21 [guaiFENesin DM] Ondansetron HCl [Zofran] 4 mg PO Q8H PRN 01/02/21 07/10/21 hydrALAZINE HCL [Apresoline] 100 mg PO TID 01/02/21 07/10/21 HYDROcodone/APAP 10-325MG [[place] 1 tab PO Q8H PRN 07/10/21 07/10/21 10-325] Labetalol [Trandate] 200 mg PO TID 07/10/21 07/10/21 Lactulose 10 gm PO BID PRN 07/10/21 07/10/21 Loperamide [Imodium] 2 mg PO QID PRN 07/10/21 07/10/21 Metoclopramide HCl [Reglan] 5 mg PO QID 07/10/21 07/10/21 Potassium Chloride ER [K-Dur 20] 20 meq PO BID 07/10/21 07/10/21 Promethazine Hcl Solution 25mg/Ml 25 mg IM Q8H PRN 07/10/21 07/10/21 Renal Vitamin Tablet 0.8mg 1 tab PO DAILY 07/10/21 07/10/21 Sodium Bicarbonate Tab 650 mg PO DAILY 07/10/21 07/10/21 chlorproMAZINE [Thorazine] 25 mg PO BID 07/10/21 07/10/21 Previous Rx's Medication Instructions Recorded Insulin Glargine,Hum.rec.anlog 20 unit SQ HS@2100 #0 11/12/20 [Lantus Solostar Pen] Lidocaine 5% Patch [Lidoderm 5% 2 patch TOPICAL DAILY patch 11/12/20 Patch] Doxazosin [Cardura] 2 mg PO BID tab 12/13/20 Allergies Allergy/AdvReac Type Severity Reaction Status Date / Time aspirin [From Anacin] Allergy Rash/Hives Verified 07/10/21 21:51 (Dulce brand ok) sulfamethoxazole AdvReac affects Verified 07/10/21 21:51 [From Bactrim] kidneys trimethoprim [From Bactrim] AdvReac Unknown Verified 07/10/21 21:51 Review of Systems ROS Statement: Those systems with pertinent positive or pertinent negative responses have been documented in the HPI. ROS Other: All systems not noted in ROS Statement are negative. 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 Past Anesthesia/Blood Transfusion Reactions: No Reported Reaction, Motion Sickness Date of Last Stent Placement:: 10/2015 Past Psychological History: No Psychological Hx Reported Smoking Status: Never smoker Past Alcohol Use History: None Reported Past Drug Use History: None Reported - Past Family History Father Family Medical History: COPD Additional Family Medical History / Comment(s): AT AGE 64- EMPHYSEMA(SMOKER) Mother Family Medical History: Diabetes Mellitus, Hypertension Additional Family Medical History / Comment(s): LUPUS, LEG AMPUTATED. MOM IN HER 60'S General Exam Limitations: no limitations General appearance: alert, in no apparent distress, anxious Head exam: Present: atraumatic, normocephalic, normal inspection Eye exam: Present: normal appearance, PERRL, EOMI. Absent: scleral icterus, conjunctival injection, periorbital swelling ENT exam: Present: normal exam, mucous membranes moist Neck exam: Present: normal inspection. Absent: tenderness, meningismus, lymphadenopathy Respiratory exam: Present: normal lung sounds bilaterally. Absent: respiratory distress, wheezes, rales, rhonchi, stridor Cardiovascular Exam: Present: regular rate, normal rhythm, normal heart sounds. Absent: systolic murmur, diastolic murmur, rubs, gallop, clicks GI/Abdominal exam: Present: soft, normal bowel sounds. Absent: distended, tenderness, guarding, rebound, rigid Extremities exam: Present: normal inspection, full ROM, normal capillary refill. Absent: tenderness, pedal edema, joint swelling, calf tenderness Back exam: Present: normal inspection Neurological exam: Present: alert, oriented X3, CN II-XII intact Psychiatric exam: Present: normal affect, normal mood Skin exam: Present: warm, dry, intact, normal color. Absent: rash Course Vital Signs 07/10/21 07/10/21 07/10/21 21:35 23:10 23:18 Temperature 97.3 F L Pulse Rate 61 62 66 Respiratory 18 Rate Blood Pressure 93/43 O2 Sat by Pulse 99 Oximetry 07/10/21 23:41 Temperature Pulse Rate 65 Respiratory 16 Rate Blood Pressure 144/58 O2 Sat by Pulse 100 Oximetry - Reevaluation(s) Reevaluation #1: 07/11/21 00:30 Medical Record is reviewed Reevaluation #2: 07/11/21 00:30 Patient family informed of results and questions answered Reevaluation #3: 07/11/21 00:30 Patient has persistent chest pain here in the ER - Consultations Consultation #1: Spoke with PMH we will admit this patient Chest Pain MDM - MDM 70 male DF for evaluation patient coming in for chest pain persistent hiccups some shortness of breath. Patient having CHF acute on chronic renal failure chest pain intractable hiccups, will admit for further evaluation management Disposition Clinical Impression: Shortness of breath, Renal failure, Chest pain, Intractable hiccups Disposition: ADMITTED IP TO THIS HOSP Condition: Fair Referrals: Chance Flowers MD [Primary Care Provider] - 1-2 days
--- NOTE | 2021-07-10 22:01 | XR ---
EXAMINATION TYPE: XR chest 2V DATE OF EXAM: 07/10/2021 COMPARISON: 01/04/2021 HISTORY: Weakness TECHNIQUE: Frontal and lateral views of the chest are obtained. FINDINGS: There is interval placement of right IJ dialysis catheter with tip overlying the caudal SV C. There is mild interstitial prominence with superimposed hazy opacity. No pleural effusion, or pneu mothorax seen. The cardiac silhouette size is mildly enlarged. The osseous structures are intact. IMPRESSION: Mild interstitial edema versus atelectasis.
[2021-07-10 22:32] LABS: Anisocytosis Slight; Basophils # (A) 0.1 k/uL (0-0.2); Basophils % (A) 1 %; Eosinophils # (A) 0.4 k/uL (0-0.7); Eosinophils % (A) 3 %; HGB 13.5 gm/dL (13.0-17.5); Hypochromasia Slight; Lymphocytes # (A) 1.1 k/uL (1.0-4.8); Lymphocytes % (A) 9 %; MCH 28.8 pg (25.0-35.0); MCHC 30.7 g/dL (31.0-37.0); MCV 93.9 fL (80.0-100.0); Mean Platelet Volume 7.5; Monocytes # (A) 0.7 k/uL (0-1.0); Monocytes % (A) 6 %; Neutrophils # (A) 9.5 k/uL (1.3-7.7); Neutrophils % (A) 81 %; Platelet Count 248 k/uL (150-450); RBC 4.68 m/uL (4.30-5.90); RDW 16.2 % (11.5-15.5); WBC 11.8 k/uL (3.8-10.6)
[2021-07-10 22:43] LABS: Albumin 3.8 g/dL (3.5-5.0); Calcium 9.5 mg/dL (8.4-10.2); Magnesium 1.6 mg/dL (1.6-2.3); Total Bilirubin 0.6 mg/dL (0.2-1.3); Total Protein 6.7 g/dL (6.3-8.2)
[2021-07-10 22:45] LABS: Prothrombin Time 10.6 sec (9.0-12.0)
[2021-07-10] MEDS ORDERED: chlorproMAZINE 25 MG/ML 2 ML AMP IM STA (22:47)
[2021-07-11 00:46] LABS: Appearance,Urine Turbid (Clear); Bacteria,Urine Moderate /hpf; Bilirubin,Urine Negative (Negative); Blood,Urine Moderate (Negative); Color,Urine Yellow; Glucose,Urine (UA) Negative (Negative); Ketones,Urine Negative (Negative); Leukocyte Esterase,Urine Large (Negative); Nitrite,Urine Negative (Negative); PH, Urine 7.5 (5.0-8.0); Protein,Urine 3+ (Negative); RBC,Urine 123 /hpf (0-5); Urobilinogen,Urine <2.0 mg/dL (<2.0); WBC,Urine >182 /hpf (0-5)
[2021-07-11] MEDS: methylPREDNISolone SOD SUCCI 125 MG/2 ML VIAL IV SCH ×2 (06:26→11:31)
[2021-07-11] MEDS: IPRATROPIUM-ALBUTEROL 3 ML NEB INHALATION SCH ×3 (07:17→15:17)
[2021-07-11 08:00] VITALS: BP 160/68; RESP 18; TEMP 98.1
[2021-07-11] MEDS ORDERED: LABETALOL 200 MG TAB PO SCH ×2 (09:42→16:00)
[2021-07-11] MEDS ORDERED: amLODIPine 5 MG TAB PO SCH (09:45)
--- NOTE | 2021-07-11 11:09 | P.NPCON ---
History of Present Illness - Reason for Consult end stage renal disease - History of Present Illness Reason for consultation: End-stage renal disease History of present illness: Patient is a 70-year-old male seen in consultation for end-stage renal disease. Patient was seen and examined in emergency room. He is maintained on hemodialysis on Wednesday schedule. Patient states he had di alysis yesterday. Patient came to the hospital due to chest pressure. Patient denies any pain in his arm or jaw. Patient has history of diastolic CHF with moderate to severe tricuspid regurgitation and pulmonary hypertension. He also has history of coronary artery disease status post stenting of the LAD in the past. Blood pressure stable. No fever or chills. He has a chronic Maria catheter. He is currently on room air. Patient tested negative for coronavirus. He resides at [facility]. Vital signs are stable. General: The patient appeared well nourished and normally developed. HEENT: Head exam is unremarkable. LUNGS: Breath sounds decreased. HEART: Rate and Rhythm are regular. ABDOMEN: Soft, no distention. EXTREMITITES: No edema. Past Medical History Past Medical History: Heart Failure, COPD, Diabetes Mellitus, Hyperlipidemia, Hypertension, Osteoarthritis (OA), Pneumonia, Renal Disease, Sleep Apnea/CPAP/BIPAP, Vascular Disorder Additional Past Medical History / Comment(s): IDDM type II, 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, chronic venous ulcer left anterior lower leg, sepsis from L leg wound, chronic anemia, hyperkalemia, CKD stage IV, UTIs, incontinence, DELVIN no longer using Cpap and is now on oxygen at 4l/nc atc, possible starting of dementia, confusion at times at night, bilateral lower leg varicosities, umbilical hernia, past duodenal ulcer with repair, Hpylori, wheelchair bound, states pt may have skin issue on his buttocks. 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 Past Anesthesia/Blood Transfusion Reactions: No Reported Reaction, Motion Sickness Date of Last Stent Placement:: 10/2015 Past Psychological History: No Psychological Hx Reported Smoking Status: Never smoker Past Alcohol Use History: None Reported Past Drug Use History: None Reported - Past Family History Father Family Medical History: COPD Additional Family Medical History / Comment(s): AT AGE 64- EMPHYSEMA(SMOKER) Mother Family Medical History: Diabetes Mellitus, Hypertension Additional Family Medical History / Comment(s): LUPUS, LEG AMPUTATED. MOM IN HER 60'S Medications and Allergies Home Medications Medication Instructions Recorded Confirmed Type allopurinoL [Zyloprim] 100 mg PO DAILY 04/22/15 07/10/21 History Fish Oil/Dha/Epa [Fish Oil 1,200 1 cap PO DAILY@0 09/06/15 07/10/21 History mg Fish Oil] Ferrous Sulfate [Iron (65 MG 325 mg PO DAILY@0 10/23/15 07/10/21 History Elemental)] Atorvastatin [Lipitor] 20 mg PO HS 12/09/19 07/10/21 History Aspirin EC [Ecotrin Low Dose] 81 mg PO DAILY@0 08/08/20 07/10/21 History Pantoprazole [Protonix] 40 mg PO DAILY 08/08/20 07/10/21 History Epoetin Avelino-Epbx [Retacrit] 20,000 unit SQ TU 09/07/20 07/10/21 History bisacodyL [Dulcolax] 10 mg RECTAL DAILY PRN 09/07/20 07/10/21 History Ipratropium-Albuterol Nebulize 3 ml INHALATION RT-TID 11/06/20 07/10/21 History [Duoneb 0.5 mg-3 mg/3 ml Soln] Insulin Glargine,Hum.rec.anlog 20 unit SQ HS@2100 #0 11/12/20 07/10/21 Rx [Lantus Solostar Pen] Lidocaine 5% Patch [Lidoderm 5% 2 patch TOPICAL DAILY patch 11/12/20 07/10/21 Rx Patch] Cholecalciferol [Vitamin D3 (25 25 mcg PO DAILY@1700 11/13/20 07/10/21 History Mcg = 1000 Iu)] Isosorbide Mononitrate ER [Imdur] 30 mg PO DAILY 11/13/20 07/10/21 History amLODIPine [Norvasc] 5 mg PO DAILY 11/13/20 07/10/21 History Doxazosin [Cardura] 2 mg PO BID tab 12/13/20 07/10/21 Rx Acetaminophen Tab [Tylenol] 650 mg PO Q4H PRN 01/02/21 07/10/21 History Fluticasone/Salmeterol [Advair 1 puff INHALATION RT-BID 01/02/21 07/10/21 History 250-50 Diskus] Guaifenesin/Dextromethorphan 5 ml PO TID PRN 01/02/21 07/10/21 History [guaiFENesin DM] Ondansetron HCl [Zofran] 4 mg PO Q8H PRN 01/02/21 07/10/21 History hydrALAZINE HCL [Apresoline] 100 mg PO TID 01/02/21 07/10/21 History HYDROcodone/APAP 10-325MG [[place] 1 tab PO Q8H PRN 07/10/21 07/10/21 History 10-325] Labetalol [Trandate] 200 mg PO TID 07/10/21 07/10/21 History Lactulose 10 gm PO BID PRN 07/10/21 07/10/21 History Loperamide [Imodium] 2 mg PO QID PRN 07/10/21 07/10/21 History Metoclopramide HCl [Reglan] 5 mg PO QID 07/10/21 07/10/21 History Potassium Chloride ER [K-Dur 20] 20 meq PO BID 07/10/21 07/10/21 History Promethazine Hcl Solution 25mg/Ml 25 mg IM Q8H PRN 07/10/21 07/10/21 History Renal Vitamin Tablet 0.8mg 1 tab PO DAILY 07/10/21 07/10/21 History Sodium Bicarbonate Tab 650 mg PO DAILY 07/10/21 07/10/21 History chlorproMAZINE [Thorazine] 25 mg PO BID 07/10/21 07/10/21 History Allergies Allergy/AdvReac Type Severity Reaction Status Date / Time aspirin [From Anacin] Allergy Rash/Hives Verified 07/10/21 21:51 (Dulce brand ok) sulfamethoxazole AdvReac affects Verified 07/10/21 21:51 [From Bactrim] kidneys trimethoprim [From Bactrim] AdvReac Unknown Verified 07/10/21 21:51 Physical Exam Vitals: Vital Signs Temp Pulse Pulse Resp BP BP Pulse Ox 07/11/21 07:50 98.1 F 90 18 160/68 99 07/11/21 07:28 93 07/11/21 07:17 92 07/11/21 06:00 98.3 F 80 16 126/56 100 07/10/21 23:41 65 16 144/58 100 07/10/21 23:18 66 07/10/21 23:10 62 07/10/21 21:35 97.3 F L 61 18 93/43 99 Intake and Output 07/10/21 07/11/21 07/11/21 22:59 06:59 14:59 Other: Weight 102.512 kg 102.512 kg Results - Lab Results Most recent lab results Calcium 9.5 mg/dL (8.4-10.2) 07/10/21 22:26 Phosphorus 4.0 mg/dL (2.5-4.5) 07/10/21 22:26 Magnesium 1.6 mg/dL (1.6-2.3) 07/10/21 22:26 07/10/21 22:26 07/10/21 22:26 Assessment and Plan Plan: Assessment: 1. End-stage renal disease maintained on hemodialysis on Wednesday schedule. Patient is a right chest permacath. 2. Chest pain. Cardiology consulted. 3. Chronic diastolic CHF with moderate to severe tricuspid regurgitation and pulmonary hypertension. 4. History of coronary disease status post LAD stenting. 5. Hypertension with chronic kidney disease. Plan: Hemodialysis tomorrow. Check phosphorus level. Home antihypertensives resumed. Thank you for the consultation. I will continue to follow the patient with you during his hospital stay.
[2021-07-11 11:15] VITALS: PULSE 103
--- NOTE | 2021-07-11 12:19 | P.CRDCN ---
History of Present Illness History of present illness: HISTORY OF PRESENTING ILLNESS This is a pleasant 70-year-old male past medical history significant for coronary artery disease status post stenting to LAD in 2016, heart failure with preserved ejection fraction, COPD, obstructive sleep apnea, type 2 diabetes, hypertension, dyslipidemia, end stage renal disease on hemodialysis. He follows in the office with Dr. Yarbrough. We have been asked to see in consultation for chest pain. Patient presents from [facility]. He is bedbound. He states he has been having epigastric discomfort, nausea and hiccups for 1 week. His epigastric pain is worse with hiccups and palpation to that area. He denies any worsening shortness of breath, palpitations, vomiting, lightheadedness or dizziness. He denies any fever, cough or chills. He states he always has diarrhea and that is not new. DIAGNOSTICS EKG reveals sinus rhythm HR 61, poor R wave progression, no significant ST- T wave abnormalities. Prior EKG appear similar Echocardiogram 11/2020 revealed EF 55-60%, increased grade 2 diastolic dysfunction, RV is severely enlarged, LA severely dilated, right atrium is moderately enlarged, moderate mitral regurgitation, moderate to severe tricuspid regurgitation, moderate severe pulmonary hypertension with an RVSP of 51.3 mmHg Last Cardiac Catheterization 10/2015 with successful stenting of the proximal LAD Chest xray mild interstitial edema versus atelectasis. heart mildly enlarged Laboratory reviewed, WBC 11.8, hemoglobin 13.5, platelets 248, troponin negative 2, sodium 132, potassium 4.0, BUN 31, serum creatinine 3.1, magnesium 1.6, proB [employer] 4250, covid-19 PCR negative Current home cardiac medications include REVIEW OF SYSTEMS At the time of my exam: CONSTITUTIONAL: Denies fever or chills. CARDIOVASCULAR: Denies chest pain, shortness of breath, orthopnea or PND. denies palpitations RESPIRATORY: Denies cough. GASTROINTESTINAL: +Epigastric pain, Denies abdominal pain, +diarrhea, Denies constipation, +nausea, denies vomiting. MUSCULOSKELETAL: Denies myalgias. NEUROLOGIC: Denies numbness, tingling, headacbe or weakness. ENDOCRINE: Denies fatigue, weight change, polydipsia or polyurina. GENITOURINARY: Denies burning, hematuria or urgency with micturation. HEMATOLOGIC: Denies history of anemia or bleeding. PHYSICAL EXAMINATION Vitals reviewed. CONSTITUTIONAL: No apparent distress. HEENT: Head is normocephalic. Pupils are equal, round. Sclerae anicteric. Mucous membranes of the mouth are moist. No JVD. No carotid bruit. CHEST EXAMINATION: Lungs are diminished to auscultation. No chest wall tenderness is noted on palpation or with deep breathing. HEART EXAMINATION: Regular rate and rhythm. S1, S2 heard. systolic ejection murmur noted. No gallops or rub. ABDOMEN: Soft, Tenderness to Epigastric region to palpation. Positive bowel sounds. EXTREMITIES: No lower extremity edema NEUROLOGIC EXAMINATION: Patient is awake, alert and oriented x3. ASSESSMENT Epigastric pain, hiccups and Nausea Coronary artery disease status post stent to LAD in 2016 Chronic diastolic heart failure with preserved ejection fraction 55-60% COPD Obstructive sleep apnea Type 2 diabetes History of hypertension Dyslipidemia Chronic kidney disease PLAN Patient's pain appears more GI in etiology. Acute coronary syndrome has been ru led out with negative cardiac enzymes and EKG with no evidence of ischemia. We will obtain a 2D echocardiogram. If echocardiogram with no acute findings, no further cardiac workup. Continue home cardiac medications. Follow up with Dr. Yarbrough. Thank you kindly for this consultation. Nurse Practitioner note has been reviewed, I agree with a documented findings and plan of care. Patient was seen and examined. Past Medical History Past Medical History: Heart Failure, COPD, Diabetes Mellitus, Hyperlipidemia, Hypertension, Osteoarthritis (OA), Pneumonia, Renal Disease, Sleep Apnea/CPAP/BIPAP, Vascular Disorder Additional Past Medical History / Comment(s): IDDM type II, 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, chronic venous ulcer left anterior lower leg, sepsis from L leg wound, chronic anemia, hyperkalemia, CKD stage IV, UTIs, incontinence, DELVIN no longer using Cpap and is now on oxygen at 4l/nc atc, possible starting of dementia, confusion at times at night, bilateral lower leg varicosities, umbilical hernia, past duodenal ulcer with repair, Hpylori, wheelchair bound, states pt may have skin issue on his buttocks. 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 Past Anesthesia/Blood Transfusion Reactions: No Reported Reaction, Motion Sickness Date of Last Stent Placement:: 10/2015 Past Psychological History: No Psychological Hx Reported Smoking Status: Never smoker Past Alcohol Use History: None Reported Past Drug Use History: None Reported - Past Family History Father Family Medical History: COPD Additional Family Medical History / Comment(s): AT AGE 64- EMPHYSEMA(SMOKER) Mother Family Medical History: Diabetes Mellitus, Hypertension Additional Family Medical History / Comment(s): LUPUS, LEG AMPUTATED. MOM IN HER 60'S Medications and Allergies Home Medications Medication Instructions Recorded Confirmed Type allopurinoL [Zyloprim] 100 mg PO DAILY 04/22/15 07/10/21 History Fish Oil/Dha/Epa [Fish Oil 1,200 1 cap PO DAILY@1700 09/06/15 07/10/21 History mg Fish Oil] Ferrous Sulfate [Iron (65 MG 325 mg PO DAILY@1700 10/23/15 07/10/21 History Elemental)] Atorvastatin [Lipitor] 20 mg PO HS 12/09/19 07/10/21 History Aspirin EC [Ecotrin Low Dose] 81 mg PO DAILY@1700 08/08/20 07/10/21 History Pantoprazole [Protonix] 40 mg PO DAILY 08/08/20 07/10/21 History Epoetin Avelino-Epbx [Retacrit] 20,000 unit SQ TU 09/07/20 07/10/21 History bisacodyL [Dulcolax] 10 mg RECTAL DAILY PRN 09/07/20 07/10/21 History Ipratropium-Albuterol Nebulize 3 ml INHALATION RT-TID 11/06/20 07/10/21 History [Duoneb 0.5 mg-3 mg/3 ml Soln] Insulin Glargine,Hum.rec.anlog 20 unit SQ HS@2100 #0 11/12/20 07/10/21 Rx [Lantus Solostar Pen] Lidocaine 5% Patch [Lidoderm 5% 2 patch TOPICAL DAILY patch 11/12/20 07/10/21 Rx Patch] Cholecalciferol [Vitamin D3 (25 25 mcg PO DAILY@1700 11/13/20 07/10/21 History Mcg = 1000 Iu)] Isosorbide Mononitrate ER [Imdur] 30 mg PO DAILY 11/13/20 07/10/21 History amLODIPine [Norvasc] 5 mg PO DAILY 11/13/20 07/10/21 History Doxazosin [Cardura] 2 mg PO BID tab 12/13/20 07/10/21 Rx Acetaminophen Tab [Tylenol] 650 mg PO Q4H PRN 01/02/21 07/10/21 History Fluticasone/Salmeterol [Advair 1 puff INHALATION RT-BID 01/02/21 07/10/21 Hi story 250-50 Diskus] Guaifenesin/Dextromethorphan 5 ml PO TID PRN 01/02/21 07/10/21 History [guaiFENesin DM] Ondansetron HCl [Zofran] 4 mg PO Q8H PRN 01/02/21 07/10/21 History hydrALAZINE HCL [Apresoline] 100 mg PO TID 01/02/21 07/10/21 History HYDROcodone/APAP 10-325MG [[place] 1 tab PO Q8H PRN 07/10/21 07/10/21 History 10-325] Labetalol [Trandate] 200 mg PO TID 07/10/21 07/10/21 History Lactulose 10 gm PO BID PRN 07/10/21 07/10/21 History Loperamide [Imodium] 2 mg PO QID PRN 07/10/21 07/10/21 History Metoclopramide HCl [Reglan] 5 mg PO QID 07/10/21 07/10/21 History Potassium Chloride ER [K-Dur 20] 20 meq PO BID 07/10/21 07/10/21 History Promethazine Hcl Solution 25mg/Ml 25 mg IM Q8H PRN 07/10/21 07/10/21 History Renal Vitamin Tablet 0.8mg 1 tab PO DAILY 07/10/21 07/10/21 History Sodium Bicarbonate Tab 650 mg PO DAILY 07/10/21 07/10/21 History chlorproMAZINE [Thorazine] 25 mg PO BID 07/10/21 07/10/21 History Allergies Allergy/AdvReac Type Severity Reaction Status Date / Time aspirin [From Anacin] Allergy Rash/Hives Verified 07/10/21 21:51 (Dulce brand ok) sulfamethoxazole AdvReac affects Verified 07/10/21 21:51 [From Bactrim] kidneys trimethoprim [From Bactrim] AdvReac Unknown Verified 07/10/21 21:51 Physical Exam Vitals: Vital Signs Temp Pulse Resp BP Pulse Ox 07/11/21 06:00 98.3 F 80 16 126/56 100 07/10/21 23:41 65 16 144/58 100 07/10/21 23:18 66 07/10/21 23:10 62 07/10/21 21:35 97.3 F L 61 18 93/43 99 Intake and Output 07/10/21 07/11/21 07/11/21 22:59 06:59 14:59 Other: Weight 102.512 kg Results 07/10/21 22:26 07/10/21 22:26 Cardiac Enzymes 07/10/21 07/10/21 Range/Units 22:26 22:26 AST 23 (17-59) U/L Troponin I <0.012 (0.000-0.034) ng/mL Coagulation 07/10/21 Range/Units 22:26 PT 10.6 (9.0-12.0) sec APTT 23.0 (22.0-30.0) sec CBC 07/10/21 Range/Units 22:26 WBC 11.8 H (3.8-10.6) k/uL RBC 4.68 (4.30-5.90) m/uL Hgb 13.5 (13.0-17.5) gm/dL Hct 44.0 (39.0-53.0) % Plt Count 248 (150-450) k/uL Comprehensive Metabolic Panel 07/10/21 Range/Units 22:26 Sodium 132 L (137-145) mmol/L Potassium 4.0 (3.5-5.1) mmol/L Chloride 97 L (98-107) mmol/L Carbon Dioxide 22 (22-30) mmol/L BUN 31 H (9-20) mg/dL Creatinine 3.18 H (0.66-1.25) mg/dL Glucose 172 H (74-99) mg/dL Calcium 9.5 (8.4-10.2) mg/dL AST 23 (17-59) U/L ALT 22 (4-49) U/L Alkaline Phosphatase 162 H (38-126) U/L Total Protein 6.7 (6.3-8.2) g/dL Albumin 3.8 (3.5-5.0) g/dL Current Medications Generic Name Dose Route Start Last Admin Trade Name Freq PRN Reason Stop Dose Admin Albuterol/Ipratropium 3 ml 07/11/21 08:00 Ipratropium-Albuterol 3 Ml Neb INHALATION RT-QID BONNY Methylprednisolone Sodium Succinate 60 mg 07/11/21 06:00 07/11/21 06:26 Methylprednisolone Sod Succi 125 Mg/2 Ml Vial IV 60 mg Q6HR BONNY Administration Intake and Output 07/10/21 07/11/21 07/11/21 22:59 06:59 14:59 Other: Weight 102.512 kg 07/10/21 22:26 07/10/21 22:26
--- NOTE | 2021-07-11 14:00 | ECHOF ---
Referral Reason:lv function MEASUREMENTS -------- HEIGHT: 152.4 cm WEIGHT: 102.5 kg BP: RVIDd: 3.7 cm (< 3.3) IVSd: 1.3 cm (0.6 - 1.1) LVIDd: 5.7 cm (3.9 - 5.3) LVPWd: 1.5 cm (0.6 - 1.1) IVSs: 1.4 cm LVIDs: 3.8 cm LVPWs: 2.2 cm LAESV Index (A-L): 46.91 ml/m Ao Diam: 3.7 cm (2.0 - 3.7) AV Cusp: 1.8 cm (1.5 - 2.6) LA Diam: 4.0 cm (2.7 - 3.8) MV EXCURSION: 20.651 mm (> 18.000) MV EF SLOPE: 135 mm/s (70 - 150) EPSS: 0.4 cm FINDINGS -------- Undetermined rhythm. This was a technically adequate study. The left ventricular size is normal. Left ventricular wall thickness is normal. Overall left vent ricular systolic function is low-normal with, an EF between 50 - 55 %. The right ventricle is mild to moderately enlarged. LA is severely dilated >40 ml/m2 The right atrial size is normal. There is mild aortic valve sclerosis. There is no evidence of aortic regurgitation. Mild mitral regurgitation is present. Mild tricuspid regurgitation present. Right ventricular systolic pressure is normal at < 35 mmHg. There is no pulmonic regurgitation present. Echo free space represents a pericardial fat pad. CONCLUSIONS -------- 1. The left ventricular size is normal. 2. Left ventricular wall thickness is normal. 3. Overall left ventricular systolic function is low-normal with, an EF between 50 - 55 %. 4. The right ventricle is mild to moderately enlarged. 5. LA is severely dilated >40 ml/m2 6. The right atrial size is normal. 7. There is mild aortic valve sclerosis. 8. Mild mitral regurgitation is present. 9. Mild tricuspid regurgitation present. 10. Echo free space represents a pericardial fat pad. ALL TER[employer]IN VEHICLE TECHNICIAN: Zara Oconnor RDCS
[2021-07-11] MEDS ORDERED: hydrALAZINE HCL 50 MG TAB PO SCH (16:00)
[2021-07-11] MEDS ORDERED: ASPIRIN 81 MG PO SCH (17:00)
[2021-07-11] MEDS ORDERED: ATORVASTATIN 20 MG TAB PO SCH (21:00)
[2021-07-12] MEDS ORDERED: ISOSORBIDE MONONITRATE ER 30 MG TAB.ER.24H PO SCH (09:00)
--- NOTE | 2021-07-14 20:24 | P.HPIM ---
History of Present Illness H&P Date: 07/11/21 Chief Complaint: Chest Pain 70-year-old male presented today for evaluation of chest pain. Chest pain or abdominal pain. Positive nausea occasional hiccups pain symptoms for about 3 days now. Hiccups have been going on for a couple days as well not improved. No fevers travel history or sick contacts. Patient has a long medical history with multiple comorbidities from COPD or heart issues. Dialysis was pulmonary edema. Patient has no current diaphoresis or significant shortness of breath EKG reveals sinus rhythm HR 61, poor R wave progression, no significant ST- T wave abnormalities. Prior EKG appear similar Echocardiogram 11/2020 revealed EF 55-60%, increased grade 2 diastolic dysfunction, RV is severely enlarged, LA severely dilated, right atrium is mode rately enlarged, moderate mitral regurgitation, moderate to severe tricuspid regurgitation, moderate severe pulmonary hypertension with an RVSP of 51.3 mmHg Last Cardiac Catheterization 10/2015 with successful stenting of the proximal LAD Chest xray mild interstitial edema versus atelectasis. heart mildly enlarged Laboratory reviewed, WBC 11.8, hemoglobin 13.5, platelets 248, troponin negative 2, sodium 132, potassium 4.0, BUN 31, serum creatinine 3.1, magnesium 1.6, proBNP 4250, covid-19 PCR negative Review of Systems CONSTITUTIONAL: Denies fever or chills. CARDIOVASCULAR: Denies chest pain, shortness of breath, orthopnea or PND. denies palpitations RESPIRATORY: Denies cough. GASTROINTESTINAL: +Epigastric pain, Denies abdominal pain, +diarrhea, Denies constipation, +nausea, denies vomiting. MUSCULOSKELETAL: Denies myalgias. NEUROLOGIC: Denies numbness, tingling, headacbe or weakness. ENDOCRINE: Denies fatigue, weight change, polydipsia or polyurina. GENITOURINARY: Denies burning, hematuria or urgency with micturation. HEMATOLOGIC: Denies history of anemia or bleeding. Past Medical History Past Medical History: Heart Failure, COPD, Diabetes Mellitus, Hyperlipidemia, Hypertension, Osteoarthritis (OA), Pneumonia, Renal Disease, Sleep Apnea/CPAP/BIPAP, Vascular Disorder Additional Past Medical History / Comment(s): IDDM type II, 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, chronic venous ulcer left anterior lower leg, sepsis from L leg wound, chronic anemia, hyperkalemia, CKD stage IV, UTIs, incontinence, DELVIN no longer using Cpap and is now on oxygen at 4l/nc atc, possible starting of dementia, confusion at times at night, bilateral lower leg varicosities, umbilical hernia, past duodenal ulcer with repair, Hpylori, wheelchair bound, states pt may have skin issue on his buttocks. 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 Past Anesthesia/Blood Transfusion Reactions: No Reported Reaction, Motion Sickness Date of Last Stent Placement:: 10/2015 Past Psychological History: No Psychological Hx Reported Smoking Status: Never smoker Past Alcohol Use History: None Reported Past Drug Use History: None Reported - Past Family History Father Family Medical History: COPD Additional Family Medical History / Comment(s): AT AGE 64- EMPHYSEMA(SMOKER) Mother Family Medical History: Diabetes Mellitus, Hypertension Additional Family Medical History / Comment(s): LUPUS, LEG AMPUTATED. MOM IN HER 60'S Medications and Allergies Home Medications Medication Instructions Recorded Confirmed Type allopurinoL [Zyloprim] 100 mg PO DAILY 04/22/15 07/10/21 History Fish Oil/Dha/Epa [Fish Oil 1,200 1 cap PO DAILY@0 09/06/15 07/10/21 History mg Fish Oil] Ferrous Sulfate [Iron (65 MG 325 mg PO DAILY@169910/23/15 07/10/21 History Elemental)] Atorvastatin [Lipitor] 20 mg PO HS 12/09/19 07/10/21 History Aspirin EC [Ecotrin Low Dose] 81 mg PO DAILY@0 08/08/20 07/10/21 History Pantoprazole [Protonix] 40 mg PO DAILY 08/08/20 07/10/21 History Epoetin Avelino-Epbx [Retacrit] 20,000 unit SQ TU 09/07/20 07/10/21 History bisacodyL [Dulcolax] 10 mg RECTAL DAILY PRN 09/07/20 07/10/21 History Ipratropium-Albuterol Nebulize 3 ml INHALATION RT-TID 11/06/20 07/10/21 History [Duoneb 0.5 mg-3 mg/3 ml Soln] Insulin Glargine,Hum.rec.anlog 20 unit SQ HS@2100 #0 11/12/20 07/10/21 Rx [Lantus Solostar Pen] Lidocaine 5% Patch [Lidoderm 5% 2 patch TOPICAL DAILY patch 11/12/20 07/10/21 Rx Patch] Cholecalciferol [Vitamin D3 (25 25 mcg PO DAILY@1700 11/13/20 07/10/21 History Mcg = 1000 Iu)] Isosorbide Mononitrate ER [Imdur] 30 mg PO DAILY 11/13/20 07/10/21 History amLODIPine [Norvasc] 5 mg PO DAILY 11/13/20 07/10/21 History Doxazosin [Cardura] 2 mg PO BID tab 12/13/20 07/10/21 Rx Acetaminophen Tab [Tylenol] 650 mg PO Q4H PRN 01/02/21 07/10/21 History Fluticasone/Salmeterol [Advair 1 puff INHALATION RT-BID 01/02/21 07/10/21 History 250-50 Diskus] Guaifenesin/Dextromethorphan 5 ml PO TID PRN 01/02/21 07/10/21 History [guaiFENesin DM] Ondansetron HCl [Zofran] 4 mg PO Q8H PRN 01/02/21 07/10/21 History hydrALAZINE HCL [Apresoline] 100 mg PO TID 01/02/21 07/10/21 History HYDROcodone/APAP 10-325MG [[place] 1 tab PO Q8H PRN 07/10/21 07/10/21 History 10-325] Labetalol [Trandate] 200 mg PO TID 07/10/21 07/10/21 History Lactulose 10 gm PO BID PRN 07/10/21 07/10/21 History Loperamide [Imodium] 2 mg PO QID PRN 07/10/21 07/10/21 History Metoclopramide HCl [Reglan] 5 mg PO QID 07/10/21 07/10/21 History Potassium Chloride ER [K-Dur 20] 20 meq PO BID 07/10/21 07/10/21 History Promethazine Hcl Solution 25mg/Ml 25 mg IM Q8H PRN 07/10/21 07/10/21 History Renal Vitamin Tablet 0.8mg 1 tab PO DAILY 07/10/21 07/10/21 History Sodium Bicarbonate Tab 650 mg PO DAILY 07/10/21 07/10/21 History chlorproMAZINE [Thorazine] 25 mg PO BID 07/10/21 07/10/21 History predniSONE See Taper PO DIRECTED #21 tab 07/11/21 Rx Allergies Allergy/AdvReac Type Severity Reaction Status Date / Time aspirin [From Anacin] Allergy Rash/Hives Verified 07/10/21 21:51 (Dulce brand ok) sulfamethoxazole AdvReac affects Verified 07/10/21 21:51 [From Bactrim] kidneys trimethoprim [From Bactrim] AdvReac Unknown Verified 07/10/21 21:51 Physical Exam Vitals: Vital Signs Temp Pulse Pulse Resp BP BP Pulse Ox 07/11/21 07:50 98.1 F 90 18 160/68 99 07/11/21 07:28 93 07/11/21 07:17 92 07/11/21 06:00 98.3 F 80 16 126/56 100 07/10/21 23:41 65 16 144/58 100 07/10/21 23:18 66 07/10/21 23:10 62 07/10/21 21:35 97.3 F L 61 18 93/43 99 Intake and Output 07/10/21 07/11/21 07/11/21 22:59 06:59 14:59 Other: Weight 102.512 kg 102.512 kg CONSTITUTIONAL: No apparent distress. HEENT: Head is normocephalic. Pupils are equal, round. Sclerae anicteric. Mucous membranes of the mouth are moist. No JVD. No carotid bruit. CHEST EXAMINATION: Lungs are diminished to auscultation. No chest wall tenderness is noted on palpation or with deep breathing. HEART EXAMINATION: Regular rate and rhythm. S1, S2 heard. systolic ejection murmur noted. No gallops or rub. ABDOMEN: Soft, Tenderness to Epigastric region to palpation. Positive bowel sounds. EXTREMITIES: No lower extremity edema NEUROLOGIC EXAMINATION: Patient is awake, alert and oriented x3. Results CBC & Chem 7: 07/10/21 22:26 07/10/21 22:26 Labs: Abnormal Lab Results - Last 24 Hours (Table) 07/10/21 07/10/21 07/10/21 Range/Units 22:26 22:26 23:58 WBC 11.8 H (3.8-10.6) k/uL MCHC 30.7 L (31.0-37.0) g/dL RDW 16.2 H (11.5-15.5) % Neutrophils # 9.5 H (1.3-7.7) k/uL Sodium 132 L (137-145) mmol/L Chloride 97 L (98-107) mmol/L BUN 31 H (9-20) mg/dL Creatinine 3.18 H (0.66-1.25) mg/dL Glucose 172 H (74-99) mg/dL Alkaline Phosphatase 162 H (38-126) U/L Urine Protein 3+ H (Negative) Urine Blood Moderate H (Negative) Ur Leukocyte Esterase Large H (Negative) Urine RBC 123 H (0-5) /hpf Urine WBC >182 H (0-5) /hpf Urine WBC Clumps Many H (None) /hpf Urine Bacteria Moderate H (None) /hpf Thrombosis Risk Factor Assmnt - Choose All That Apply Each Factor Represents 1 point: Medical pt on bed rest Each Risk Factor Represents 2 Points: Age 61-74 years Thrombosis Risk Factor Assessment Total Risk Factor Score: 3 Thrombosis Risk Factor Assessment Level: Moderate Risk Assessment and Plan Assessment: 1. Chest pain -- h/o Coronary artery disease status post stent to LAD in 2015 we will monitor EKG and trend troponin; Asa, BBl and statins recommend 2D ECHO-- consult cardiology for further recs 2. Chronic diastolic heart failure with preserved ejection fraction 55-60%; not in exacerbation; continue current meds 3. COPD; not in exacerbation; continue with home inhaler therapy -- h/o Obstructive sleep apnea 4. Type 2 diabetes; monitor accu checks with insulin sliding scale 5. History of hypertension; stable on current regimen; continue with parameters 6. Hyperlipidemia; continue home statin therapy till further recs from Cards 7. Chronic kidney disease; at baseline DVT PPx; SCDs/ Heparin s/q CODE STATUS; full code
== END 2021-07-11 16:32 ==
LOC: EC 21:18 → 6NMEDSUR 07-11 00:33 → UNDODISOB 07-11 16:01
PROVIDERS: ADMIT Hospitalist; ATTEND Hospitalist
DX: R07.89 Other chest pain (principal); I13.2 Hypertensive heart and chronic kidney disease with heart failure and with stage 5 chronic kidney disease, or end stage renal disease; I50.32 Chronic diastolic (congestive) heart failure; N18.6 End stage renal disease; E11.22 Type 2 diabetes mellitus with diabetic chronic kidney disease; R11.0 Nausea; R06.6 Hiccough; R00.2 Palpitations; J44.9 Chronic obstructive pulmonary disease, unspecified; E78.5 Hyperlipidemia, unspecified; M19.90 Unspecified osteoarthritis, unspecified site; G47.33 Obstructive sleep apnea (adult) (pediatric); E11.42 Type 2 diabetes mellitus with diabetic polyneuropathy; D64.9 Anemia, unspecified; R32 Unspecified urinary incontinence; I83.93 Asymptomatic varicose veins of bilateral lower extremities; R10.13 Epigastric pain; R19.7 Diarrhea, unspecified; I08.3 Combined rheumatic disorders of mitral, aortic and tricuspid valves; I27.20 Pulmonary hypertension, unspecified; I25.10 Atherosclerotic heart disease of native coronary artery without angina pectoris; R41.0 Disorientation, unspecified; Z20.822 Contact with and (suspected) exposure to COVID-19; Z79.82 Long term (current) use of aspirin; Z79.899 Other long term (current) drug therapy; Z79.51 Long term (current) use of inhaled steroids; Z79.4 Long term (current) use of insulin; Z88.1 Allergy status to other antibiotic agents; Z88.2 Allergy status to sulfonamides; Z88.6 Allergy status to analgesic agent; Z87.01 Personal history of pneumonia (recurrent); Z99.81 Dependence on supplemental oxygen; Z87.2 Personal history of diseases of the skin and subcutaneous tissue; Z99.2 Dependence on renal dialysis; Z86.19 Personal history of other infectious and parasitic diseases; Z87.440 Personal history of urinary (tract) infections; Z74.01 Bed confinement status; Z99.3 Dependence on wheelchair; Z87.11 Personal history of peptic ulcer disease; Z86.14 Personal history of Methicillin resistant Staphylococcus aureus infection; Z16.12 Extended spectrum beta lactamase (ESBL) resistance; Z16.21 Resistance to vancomycin; Z95.5 Presence of coronary angioplasty implant and graft; Z90.49 Acquired absence of other specified parts of digestive tract; Z98.42 Cataract extraction status, left eye; Z98.41 Cataract extraction status, right eye; Z98.890 Other specified postprocedural states; Z82.5 Family history of asthma and other chronic lower respiratory diseases; Z81.2 Family history of tobacco abuse and dependence; Z83.3 Family history of diabetes mellitus; Z82.49 Family history of ischemic heart disease and other diseases of the circulatory system; Z82.69 Family history of other diseases of the musculoskeletal system and connective tissue
CPT/HCPCS: 96376; 96372; 96374; 96375; 99285; 36415; 94640 ×3; 93005; 93306; 83880; 80053; 83605; 83735; 84100; 84484 ×2; 85025; 85610; 85730; 81001; 87086; 87635; 71046; G0378; J2930 ×2; J3230; J1885

== ENCOUNTER 2021-09-25 07:00 | Emergency (ER) | payer MEDICARE, BC, OTHER ==
[2021-09-25 07:14] VITALS: TEMP 97.9
[2021-09-25 07:41] LABS: Basophils # (A) 0.1 k/uL (0-0.2); Basophils % (A) 0 %; Eosinophils # (A) 0.4 k/uL (0-0.7); Eosinophils % (A) 3 %; HGB 13.5 gm/dL (13.0-17.5); Lymphocytes # (A) 0.5 k/uL (1.0-4.8); Lymphocytes % (A) 4 %; MCH 30.1 pg (25.0-35.0); MCHC 30.8 g/dL (31.0-37.0); MCV 97.6 fL (80.0-100.0); Mean Platelet Volume 7.7; Monocytes # (A) 0.9 k/uL (0-1.0); Monocytes % (A) 7 %; Neutrophils # (A) 10.8 k/uL (1.3-7.7); Neutrophils % (A) 85 %; Platelet Count 192 k/uL (150-450); RBC 4.51 m/uL (4.30-5.90); RDW 15.7 % (11.5-15.5); WBC 12.8 k/uL (3.8-10.6)
[2021-09-25 07:44] LABS: Glucose,Whole Blood 191 mg/dL (75-99)
[2021-09-25 07:53] LABS: Partial Thromboplastin Time 24.6 sec (22.0-30.0); Prothrombin Time 10.7 sec (9.0-12.0)
[2021-09-25 08:00] LABS: Albumin 3.9 g/dL (3.5-5.0); Calcium 9.6 mg/dL (8.4-10.2); Magnesium 1.8 mg/dL (1.6-2.3); Phosphorus 4.9 mg/dL (2.5-4.5); Potassium 3.8 mmol/L (3.5-5.1); Total Bilirubin 0.9 mg/dL (0.2-1.3); Total Protein 6.8 g/dL (6.3-8.2)
--- NOTE | 2021-09-25 08:22 | XR ---
EXAMINATION TYPE: XR chest 2V DATE OF EXAM: 09/25/2021 COMPARISON: X-ray dated 07/10/2021 HISTORY: Weakness TECHNIQUE: Frontal and lateral views of the chest are obtained. FINDINGS: Right-sided dual-lumen dialysis catheter with the tip is seen at the atriocaval junction or at the plasencia perior aspect of the right atrium. Grossly unremarkable lungs. No sizable pleural effusion or definit e pneumothorax. Slightly increased cardiac transverse diameter. Aortic atherosclerotic calcifications. Degenerative c hanges of the thoracic spine and acromioclavicular joints. IMPRESSION: No definite acute pulmonary abnormality identified. Other findings as described above.
--- NOTE | 2021-09-25 08:24 | ED ---
General Adult HPI - General Chief complaint: Recheck/Abnormal Lab/Rx Stated complaint: Low BP Time Seen by Provider: 09/25/21 07:05 Source: patient, EMS Mode of arrival: EMS - History of Present Illness Initial comments: 70-year-old male with past medical history of congestive heart failure, diabetes and end-stage renal disease on hemodialysis Wednesday, , Wednesday who pre sents to the emergency department with reported hypotension. He resides at [facility]. He was taken into dialysis this morning and they reported that he had a blood pressure of 80/60. He did not receive his treatment. EMS arrived on scene and had a systolic of 106. Patient admits to a mild nonproductive cough with no other complaints. No headaches, visual changes, chest pain, shortness of breath, abdominal pain. Reports to a good appetite. No recent missed dialysis sessions. presents to our facility and states that the patient recently had intervention to his left upper extremity by Dr. Salinas for dialysis access. He also replaced the permacath in his right subclavian. Patient has a Maria in place for urinary retention. catheter was last changed about one month ago. He makes minimal urine. Reportedly the patient also had an "infection in his stool" but does not appear to be on current antibiotics. He denies chest pain or shortness of breath. No back pain. No diarrhea. No black or bloody stools. No other alleviating, precipitating or modifying factors - Related Data Home Medications Medication Instructions Recorded Confirmed allopurinoL [Zyloprim] 100 mg PO DAILY@0800 04/22/15 09/25/21 Fish Oil/Dha/Epa [Fish Oil 1,200 1 cap PO DAILY@169909/06/15 09/25/21 mg Fish Oil] Ferrous Sulfate [Iron (65 MG 325 mg PO DAILY@169910/23/15 09/25/21 Elemental)] Atorvastatin [Lipitor] 20 mg PO HS 12/09/19 09/25/21 Aspirin EC [Ecotrin Low Dose] 81 mg PO DAILY@169908/08/20 09/25/21 Pantoprazole [Protonix] 40 mg PO DAILY@0600 08/08/20 09/25/21 Epoetin Avelino-Epbx [Retacrit] 20,000 unit SQ TU@169909/07/20 09/25/21 bisacodyL [Dulcolax] 10 mg RECTAL DAILY PRN 09/07/20 09/25/21 Ipratropium-Albuterol Nebulize 3 ml INHALATION RT-TID 11/06/20 09/25/21 [Duoneb 0.5 mg-3 mg/3 ml Soln] Cholecalciferol [Vitamin D3 (25 25 mcg PO DAILY@1700 11/13/20 09/25/21 Mcg = 1000 Iu)] Isosorbide Mononitrate ER [Imdur] 30 mg PO DAILY@0811/13/20 09/25/21 amLODIPine [Norvasc] 5 mg PO DAILY@0811/13/20 09/25/21 Acetaminophen Tab [Tylenol] 650 mg PO Q4H PRN 01/02/21 09/25/21 Fluticasone/Salmeterol [Advair 1 puff INHALATION RT-DAILY@0801/02/21 09/25/21 250-50 Diskus] Guaifenesin/Dextromethorphan 5 ml PO TID PRN 01/02/21 09/25/21 [guaiFENesin DM] ondansetron HCL [Zofran] 4 mg PO Q8H PRN 01/02/21 09/25/21 HYDROcodone/APAP 10-325MG [Senath 1 tab PO Q8H PRN 07/10/21 09/25/21 10-325] Labetalol [Trandate] 200 mg PO TID@0800,1400,2100 07/10/21 09/25/21 Lactulose 10 gm PO BID PRN 07/10/21 09/25/21 Loperamide [Imodium] 2 mg PO QID PRN 07/10/21 09/25/21 Metoclopramide HCl [Reglan] 5 mg PO QID 07/10/21 09/25/21 Potassium Chloride ER [K-Dur 20] 20 meq PO BID@0800,1700 07/10/21 09/25/21 Promethazine Hcl Solution 25mg/Ml 25 mg IM Q8H PRN 07/10/21 09/25/21 Renal Vitamin Tablet 0.8mg 1 tab PO DAILY@0800 07/10/21 09/25/21 Sodium Bicarbonate Tab 650 mg PO DAILY@1700 07/10/21 09/25/21 Doxazosin [Cardura] 1 mg PO BID@0800,1700 09/25/21 09/25/21 Insulin Glargine [Lantus Vial] 18 unit SQ HS 09/25/21 09/25/21 Lidocaine 5% Patch [Lidoderm 5% 2 patch TRANSDERM DAILY@0800 09/25/21 09/25/21 Patch] Liquacel 30 ml PO BID@0800,1700 09/25/21 09/25/21 Magic Cup 1 dose PO W/LUNCH@1200 09/25/21 09/25/21 hydrALAZINE HCL [Apresoline] 50 mg PO TID@0800,1200,1700 09/25/21 09/25/21 Allergies Allergy/AdvReac Type Severity Reaction Status Date / Time aspirin [From Anacin] Allergy Rash/Hives Verified 09/25/21 08:33 (Dulce brand ok) Sulfa (Sulfonamide AdvReac Kidneys Verified 09/25/21 08:33 Antibiotics) sulfamethoxazole AdvReac affects Verified 09/25/21 08:33 [From Bactrim] kidneys trimethoprim [From Bactrim] AdvReac Kidneys Verified 09/25/21 08:33 Review of Systems ROS Statement: Those systems with pertinent positive or pertinent negative responses have been documented in the HPI. ROS Other: All systems not noted in ROS Statement are negative. Past Medical History Past Medical History: Heart Failure, COPD, Diabetes Mellitus, Hyperlipidemia, Hypertension, Osteoarthritis (OA), Pneumonia, Renal Disease, Sleep Apnea/CPAP/BIPAP, Vascular Disorder Additional Past Medical History / Comment(s): IDDM type II, 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, chronic venous ulcer left anterior lower leg, sepsis from L leg wound, chronic anemia, hyperkalemia, CKD stage IV, UTIs, incontinence, DELVIN no longer using Cpap and is now on oxygen at 4l/nc atc, possible starting of dementia, confusion at times at night, bilateral lower leg varicosities, umbilical hernia, past duodenal ulcer with repair, Hpylori, wheelchair bound, states pt may have skin issue on his buttocks. 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 Past Anesthesia/Blood Transfusion Reactions: No Reported Reaction, Motion Sickness Date of Last Stent Placement:: 10/2015 Past Psychological History: No Psychological Hx Reported Smoking Status: Never smoker Past Alcohol Use History: None Reported Past Drug Use History: None Reported - Past Family History Father Family Medical History: COPD Additional Family Medical History / Comment(s): AT AGE 64- EMPHYSEMA(SMOKER) Mother Family Medical History: Diabetes Mellitus, Hypertension Additional Family Medical History / Comment(s): LUPUS, LEG AMPUTATED. MOM IN HER 60'S General Exam Limitations: physical limitation (hard of hearing) General appearance: alert, in no apparent distress Head exam: Present: atraumatic, normocephalic, normal inspection Eye exam: Present: normal appearance, PERRL, EOMI. Absent: scleral icterus, conjunctival injection, periorbital swelling ENT exam: Present: normal exam, mucous membranes moist Neck exam: Present: normal inspection. Absent: tenderness, meningismus, lymphadenopathy Respiratory exam: Present: normal lung sounds bilaterally. Absent: respiratory distress, wheezes, rales, rhonchi, stridor Cardiovascular Exam: Present: regular rate, normal rhythm, normal heart sounds. Absent: systolic murmur, diastolic murmur, rubs, gallop, clicks GI/Abdominal exam: Present: soft, normal bowel sounds. Absent: distended, t enderness, guarding, rebound, rigid Extremities exam: Present: full ROM, normal capillary refill, pedal edema (left lower extremity swelling overlying chronic skin breakdown to the left calf. Some minor areas of open weeping.). Absent: tenderness, joint swelling, calf tenderness Back exam: Present: other (stage 1 pressure ulcer) Neurological exam: Present: alert, oriented X3, CN II-XII intact Psychiatric exam: Present: normal mood, flat affect Skin exam: Present: warm, dry, other (Multiple areas of ecchymosis over forearms and legs in different stages of healing. Chronic wound left anterior calf). Absent: rash Course Vital Signs 09/25/21 09/25/21 09/25/21 07:04 08:30 09:30 Temperature 97.9 F Pulse Rate 60 59 L 56 L Respiratory 20 16 16 Rate Blood Pressure 114/57 111/58 121/54 O2 Sat by Pulse 100 100 100 Oximetry 09/25/21 11:21 Temperature Pulse Rate 58 L Respiratory 16 Rate Blood Pressure 124/52 O2 Sat by Pulse 97 Oximetry - Reevaluation(s) Reevaluation #1: 09/25/21 09:46 Updated in regards to the patient's laboratory studies and imaging. Requesting transfer to outside hospital for ERCP. making a call to the patient's daughter EKG Findings - EKG Comments: EKG Findings:: EKG demonstrates sinus rhythm with a rate of 60. UT interval 126. QRS 110. QTC of 390. No acute ST segment elevations or depressions Medical Decision Making - Medical Decision Making Upon arrival patient is placed into room 5. A thorough history and physical exam was performed. Patient does have a blood pressure of 114/57 upon arrival with no acute distress. Laboratory studies are obtained and demonstrate a white count of 12.8. BUNs 68. Creatinine 6.2. AST 188, albumin 105, alk phos 426. Occult is negative. Chest x-ray demonstrates no acute process. CT of the abdomen pelvis demonstrates a dilated common bile duct measuring 8 mm with multiple hyperdensities at the inferior aspect of the common bile duct measuring 8 mm, likely representing common bile duct house fire thick sludge. I discussed the results with the patient's . Patient requires admission for GI consultation, dialysis. Recommended transfer to an outside facility with GI capabilities. I spoke with Dr. Michelle from [facility] who accepted transfer of the patient. Informed that the patient will need dialysis. Patient transferred to [place] in stable condition - Lab Data Result diagrams: 09/25/21 07:26 09/25/21 07:26 Lab Results 09/25/21 09/25/21 09/25/21 Range/Units 07:26 07:26 07:26 WBC 12.8 H (3.8-10.6) k/uL RBC 4.51 (4.30-5.90) m/uL Hgb 13.5 (13.0-17.5) gm/dL Hct 44.0 (39.0-53.0) % MCV 97.6 (80.0-100.0) fL MCH 30.1 (25.0-35.0) pg MCHC 30.8 L (31.0-37.0) g/dL RDW 15.7 H (11.5-15.5) % Plt Count 192 (150-450) k/uL MPV 7.7 Neutrophils % 85 % Lymphocytes % 4 % Monocytes % 7 % Eosinophils % 3 % Basophils % 0 % Neutrophils # 10.8 H (1.3-7.7) k/uL Lymphocytes # 0.5 L (1.0-4.8) k/uL Monocytes # 0.9 (0-1.0) k/uL Eosinophils # 0.4 (0-0.7) k/uL Basophils # 0.1 (0-0.2) k/uL PT 10.7 (9.0-12.0) sec INR 1.0 (<1.2) APTT 24.6 (22.0-30.0) sec Sodium 136 L (137-145) mmol/L Potassium 3.8 (3.5-5.1) mmol/L Chloride 100 (98-107) mmol/L Carbon Dioxide 21 L (22-30) mmol/L Anion Gap 15 mmol/L BUN 68 H (9-20) mg/dL Creatinine 6.29 H (0.66-1.25) mg/dL Est GFR (CKD-EPI)AfAm 10 (>60 ml/min/1.73 sqM) Est GFR (CKD-EPI)NonAf 8 (>60 ml/min/1.73 sqM) Glucose 184 H (74-99) mg/dL POC Glucose (mg/dL) (75-99) mg/dL POC Glu Marble Cutter Operator ID Plasma Lactic Acid Anthony (0.7-2.0) mmol/L Calcium 9.6 (8.4-10.2) mg/dL Phosphorus 4.9 H (2.5-4.5) mg/dL Magnesium 1.8 (1.6-2.3) mg/dL Total Bilirubin 0.9 (0.2-1.3) mg/dL AST 188 H (17-59) U/L ALT 105 H (4-49) U/L Alkaline Phosphatase 426 H (38-126) U/L Troponin I (0.000-0.034) ng/mL NT-Pro-B Natriuret Pep pg/mL Total Protein 6.8 (6.3-8.2) g/dL Albumin 3.9 (3.5-5.0) g/dL Stool Occult Blood (Negative) C. difficile (EIA) Intrp (Negative) 09/25/21 09/25/21 09/25/21 Range/Units 07:26 07:26 07:26 WBC (3.8-10.6) k/uL RBC (4.30-5.90) m/uL Hgb (13.0-17.5) gm/dL Hct (39.0-53.0) % MCV (80.0-100.0) fL MCH (25.0-35.0) pg MCHC (31.0-37.0) g/dL RDW (11.5-15.5) % Plt Count (150-450) k/uL MPV Neutrophils % % Lymphocytes % % Monocytes % % Eosinophils % % Basophils % % Neutrophils # (1.3-7.7) k/uL Lymphocytes # (1.0-4.8) k/uL Monocytes # (0-1.0) k/uL Eosinophils # (0-0.7) k/uL Basophils # (0-0.2) k/uL PT (9.0-12.0) sec INR (<1.2) APTT (22.0-30.0) sec Sodium (137-145) mmol/L Potassium (3.5-5.1) mmol/L Chloride (98-107) mmol/L Carbon Dioxide (22-30) mmol/L Anion Gap mmol/L BUN (9-20) mg/dL Creatinine (0.66-1.25) mg/dL Est GFR (CKD-EPI)AfAm (>60 ml/min/1.73 sqM) Est GFR (CKD-EPI)NonAf (>60 ml/min/1.73 sqM) Glucose (74-99) mg/dL POC Glucose (mg/dL) (75-99) mg/dL POC Glu Marble Cutter Operator ID Plasma Lactic Acid Anthony 1.1 (0.7-2.0) mmol/L Calcium (8.4-10.2) mg/dL Phosphorus (2.5-4.5) mg/dL Magnesium (1.6-2.3) mg/dL Total Bilirubin (0.2-1.3) mg/dL AST (17-59) U/L ALT (4-49) U/L Alkaline Phosphatase (38-126) U/L Troponin I 0.018 (0.000-0.034) ng/mL NT-Pro-B Natriuret Pep 2640 pg/mL Total Protein (6.3-8.2) g/dL Albumin (3.5-5.0) g/dL Stool Occult Blood (Negative) C. difficile (EIA) Intrp (Negative) 09/25/21 09/25/21 09/25/21 Range/Units 07:41 08:26 08:26 WBC (3.8-10.6) k/uL RBC (4.30-5.90) m/uL Hgb (13.0-17.5) gm/dL Hct (39.0-53.0) % MCV (80.0-100.0) fL MCH (25.0-35.0) pg MCHC (31.0-37.0) g/dL RDW (11.5-15.5) % Plt Count (150-450) k/uL MPV Neutrophils % % Lymphocytes % % Monocytes % % Eosinophils % % Basophils % % Neutrophils # (1.3-7.7) k/uL Lymphocytes # (1.0-4.8) k/uL Monocytes # (0-1.0) k/uL Eosinophils # (0-0.7) k/uL Basophils # (0-0.2) k/uL PT (9.0-12.0) sec INR (<1.2) APTT (22.0-30.0) sec Sodium (137-145) mmol/L Potassium (3.5-5.1) mmol/L Chloride (98-107) mmol/L Carbon Dioxide (22-30) mmol/L Anion Gap mmol/L BUN (9-20) mg/dL Creatinine (0.66-1.25) mg/dL Est GFR (CKD-EPI)AfAm (>60 ml/min/1.73 sqM) Est GFR (CKD-EPI)NonAf (>60 ml/min/1.73 sqM) Glucose (74-99) mg/dL POC Glucose (mg/dL) 191 H (75-99) mg/dL POC Glu Marble Cutter Operator ID Lisha Minaya Plasma Lactic Acid Anthony (0.7-2.0) mmol/L Calcium (8.4-10.2) mg/dL Phosphorus (2.5-4.5) mg/dL Magnesium (1.6-2.3) mg/dL Total Bilirubin (0.2-1.3) mg/dL AST (17-59) U/L ALT (4-49) U/L Alkaline Phosphatase (38-126) U/L Troponin I (0.000-0.034) ng/mL NT-Pro-B Natriuret Pep pg/mL Total Protein (6.3-8.2) g/dL Albumin (3.5-5.0) g/dL Stool Occult Blood Negative (Negative) C. difficile (EIA) Intrp Negative (Negative) Disposition Clinical Impression: Choledocholithiasis, Elevated liver enzymes, ESRD on dialysis, Leukocytosis Disposition: OTHER INSTITUTION NOT DEFINED Condition: Stable Is patient prescribed a controlled substance at d/c from ED?: No Referrals: Chance Flowers MD [Primary Care Provider] - 1-2 days - Out of Hospital Transfer - Req. Specs Out of Hospital Transfer - Requested Specifics: Other Emergency [facility] ([facility]
--- NOTE | 2021-09-25 09:34 | CT ---
EXAMINATION TYPE: CT abdomen pelvis wo con DATE OF EXAM: 09/25/2021 COMPARISON: CT dated 01/03/2021 HISTORY: Dialysis, hypotension, elevated liver enzymes CT DLP: 1173 mGycm Automated exposure control for dose reduction was used. TECHNIQUE: Helical acquisition of images was performed from the lung bases through the pelvis. FINDINGS: LUNG BASES: 3 mm nodule in the left lung base, not well appreciated previously. No follow-up is requi red if low risk patient. If high risk patient, optional follow-up CT scan in 12 months can be conside red. Cardiomegaly. Right gynecomastia. LIVER/GB: Previous cholecystectomy. No definite hepatic focal lesion identified by this nonenhanced C T scan. Dilated CBD measuring up to 8mm. Multiple hypodensities are seen at the inferior aspect of th e CBD measuring up to 8mm likely representing CBD calculi/thick sludge. PANCREAS: Atrophic. SPLEEN: No significant abnormality is seen. ADRENALS: 11 mm left adrenal nodule, stable. Unremarkable right adrenal. KIDNEYS: Suspected 2 mm calculus at the lower pole of the left kidney versus arterial calcification. Multiple variable sized bilateral renal cysts, suboptimally assessed by this nonenhanced CT scan. No hydroureter or hydronephrosis. FREE AIR: No free air is visualized RETROPERITONEAL ADENOPATHY: Prominent subcentimeter retroperitoneal lymph nodes, nonspecific. REPRODUCTIVE ORGANS: Slightly prominent prostate. Unremarkable seminal vesicles. URINARY BLADDER: Collapsed over of a Maria catheter with fatty infiltration of the urinary bladder w all which could be due to chronic cystitis. PELVIC ADENOPATHY: Prominent subcentimeter bilateral inguinal, external iliac and pelvic sidewall ly mph nodes, nonspecific. OSSEOUS STRUCTURES: Diffuse osteopenia. Bilateral L5 pars break with grade 1 anterolisthesis of L5 o tri S1. Degenerative changes of the lower thoracic, lumbar spine and sacroiliac joints. BOWEL: Unremarkable nondistended stomach, duodenum and small bowel. Dilated fluid-filled rectum with dependent hyperdensity within. Elongated redundant sigmoid colon demonstrating gaseous distention. F ecal loading of the remainder of the colon. OTHER: Extensive arterial atherosclerotic calcifications. No sizable ascites. Large fat-containing um bilical hernia. IMPRESSION: Previous cholecystectomy. Dilated CBD measuring up to 8mm with multiple hyperdensities at the inferio r aspect of the CBD measuring up to 8mm, likely representing CBD calculi or thick sludge. Recommend c orrelation with bilirubin level, liver function tests and further ERCP assessment. Other findings as described above.
[2021-09-25 09:53] VITALS: RESP 16
[2021-09-25] MEDS ORDERED: metroNIDAZOLE-NS PMX 500 MG in SALINE 1 100ML.BAG IVPB STA (10:37)
[2021-09-25] MEDS ORDERED: cefTRIAXone IN SWFI 1,000 MG/10 ML SYRINGE IVP STA (10:37)
[2021-09-25 11:22] VITALS: BP 124/52; PULSE 58
== END 2021-09-25 11:48 | disposition other institution (70) ==
LOC: EC 07:00
DX: K80.50 Calculus of bile duct without cholangitis or cholecystitis without obstruction (principal); D72.829 Elevated white blood cell count, unspecified; E11.22 Type 2 diabetes mellitus with diabetic chronic kidney disease; E11.40 Type 2 diabetes mellitus with diabetic neuropathy, unspecified; E11.622 Type 2 diabetes mellitus with other skin ulcer; L89.101 Pressure ulcer of unspecified part of back, stage 1; I13.2 Hypertensive heart and chronic kidney disease with heart failure and with stage 5 chronic kidney disease, or end stage renal disease; I50.9 Heart failure, unspecified; N18.6 End stage renal disease; J44.9 Chronic obstructive pulmonary disease, unspecified; E78.5 Hyperlipidemia, unspecified; M19.90 Unspecified osteoarthritis, unspecified site; Z79.4 Long term (current) use of insulin; Z79.82 Long term (current) use of aspirin; Z79.899 Other long term (current) drug therapy; Z99.2 Dependence on renal dialysis
CPT/HCPCS: 36415; 93005; 83880; 80053; 83605; 83735; 84100; 84484; 85025; 85610; 85730; 82272; 87040; 87324; 71046; 74176; 99285; 96374; J0696

== ENCOUNTER 2021-11-07 05:20 | Observation (INO) | payer MEDICARE, BC ==
[2021-11-07] MEDS ORDERED: SODIUM CHLORIDE 0.9% 1,000 ML IV STA (05:25)
--- NOTE | 2021-11-07 05:26 | ED ---
Chest Pain HPI - General Chief Complaint: Chest Pain Stated Complaint: Chest Pain Time Seen by Provider: 11/07/21 05:25 Source: patient, EMS, RN notes reviewed, old records reviewed Mode of arrival: EMS Limitations: no limitations - History of Present Illness Initial Comments: This is a 71-year-old male is a mildly poor story coming in for chest pain to day. Patient does have history of CAD with stent. Patient coming with persistent shortness of breath also not significantly feeling well. Patient feels weak with generalized body aches and pains. Patient has mild nausea no vomiting patient comes from [facility] care facility. Patient has had covert in the past. Has had prior [place]. Patient has chest pain today chest pain left-sided chest range all rating to back MD Complaint: chest pain -: hour(s) Pain Location: left chest Pain Radiation: back, jaw/teeth Severity: moderate Severity scale (1-10): 7 Quality: sharp Consistency: constant Improves With: nothing Worsens With: nothing Anginal Symptoms: dyspnea, sense of impending doom Other Symptoms: palpitations Treatments Prior to Arrival: none - Related Data Home Medications Medication Instructions Recorded Confirmed allopurinoL [Zyloprim] 100 mg PO DAILY@0800 04/22/15 09/25/21 Fish Oil/Dha/Epa [Fish Oil 1,200 1 cap PO DAILY@169909/06/15 09/25/21 mg Fish Oil] Ferrous Sulfate [Iron (65 MG 325 mg PO DAILY@169910/23/15 09/25/21 Elemental)] Atorvastatin [Lipitor] 20 mg PO HS 12/09/19 09/25/21 Aspirin EC [Ecotrin Low Dose] 81 mg PO DAILY@169908/08/20 09/25/21 Pantoprazole [Protonix] 40 mg PO DAILY@0600 08/08/20 09/25/21 Epoetin Avelino-Epbx [Retacrit] 20,000 unit SQ TU@169909/07/20 09/25/21 bisacodyL [Dulcolax] 10 mg RECTAL DAILY PRN 09/07/20 09/25/21 Ipratropium-Albuterol Nebulize 3 ml INHALATION RT-TID 11/06/20 09/25/21 [Duoneb 0.5 mg-3 mg/3 ml Soln] Cholecalciferol [Vitamin D3 (25 25 mcg PO DAILY@1700 11/13/20 09/25/21 Mcg = 1000 Iu)] Isosorbide Mononitrate ER [Imdur] 30 mg PO DAILY@0800 11/13/20 09/25/21 amLODIPine [Norvasc] 5 mg PO DAILY@0800 11/13/20 09/25/21 Acetaminophen Tab [Tylenol] 650 mg PO Q4H PRN 01/02/21 09/25/21 Fluticasone/Salmeterol [Advair 1 puff INHALATION RT-DAILY@0801/02/21 09/25/21 250-50 Diskus] Guaifenesin/Dextromethorphan 5 ml PO TID PRN 01/02/21 09/25/21 [guaiFENesin DM] ondansetron HCL [Zofran] 4 mg PO Q8H PRN 01/02/21 09/25/21 HYDROcodone/APAP 10-325MG [Mercer 1 tab PO Q8H PRN 07/10/21 09/25/21 10-325] Labetalol [Trandate] 200 mg PO TID@0800,1400,2100 07/10/21 09/25/21 Lactulose 10 gm PO BID PRN 07/10/21 09/25/21 Loperamide [Imodium] 2 mg PO QID PRN 07/10/21 09/25/21 Metoclopramide HCl [Reglan] 5 mg PO QID 07/10/21 09/25/21 Potassium Chloride ER [K-Dur 20] 20 meq PO BID@0800,1700 07/10/21 09/25/21 Promethazine Hcl Solution 25mg/Ml 25 mg IM Q8H PRN 07/10/21 09/25/21 Renal Vitamin Tablet 0.8mg 1 tab PO DAILY@0800 07/10/21 09/25/21 Sodium Bicarbonate Tab 650 mg PO DAILY@1700 07/10/21 09/25/21 Doxazosin [Cardura] 1 mg PO BID@0800,1700 09/25/21 09/25/21 Insulin Glargine [Lantus Vial] 18 unit SQ HS 09/25/21 09/25/21 Lidocaine 5% Patch [Lidoderm 5% 2 patch TRANSDERM DAILY@0800 09/25/21 09/25/21 Patch] Liquacel 30 ml PO BID@0800,1700 09/25/21 09/25/21 Magic Cup 1 dose PO W/LUNCH@1200 09/25/21 09/25/21 hydrALAZINE HCL [Apresoline] 50 mg PO TID@0800,1200,1700 09/25/21 09/25/21 Allergies Allergy/AdvReac Type Severity Reaction Status Date / Time aspirin [From Anacin] Allergy Rash/Hives Verified 09/25/21 08:33 (Dulce brand ok) Sulfa (Sulfonamide AdvReac Kidneys Verified 09/25/21 08:33 Antibiotics) sulfamethoxazole AdvReac affects Verified 09/25/21 08:33 [From Bactrim] kidneys trimethoprim [From Bactrim] AdvReac Kidneys Verified 09/25/21 08:33 Review of Systems ROS Statement: Those systems with pertinent positive or pertinent negative responses have been documented in the HPI. ROS Other: All systems not noted in ROS Statement are negative. EKG Findings - EKG Comments: EKG Findings:: EKG is sinus bradycardia 55 [place] 203 QRS 114 QTc 419 Past Medical History Past Medical History: Heart Failure, COPD, Diabetes Mellitus, Hyperlipidemia, Hypertension, Osteoarthritis (OA), Pneumonia, Renal Disease, Sleep Apnea/CPAP/BIPAP, Vascular Disorder Additional Past Medical History / Comment(s): IDDM type II, 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, chronic venous ulcer left anterior lower leg, sepsis from L leg wound, chronic anemia, hyperkalemia, CKD stage IV, UTIs, incontinence, DELVIN no longer using Cpap and is now on oxygen at 4l/nc atc, possible starting of dementia, confusion at times at night, bilateral lower leg varicosities, umbilical hernia, past duodenal ulcer with r epair, Hpylori, wheelchair bound, states pt may have skin issue on his buttocks. 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 Past Anesthesia/Blood Transfusion Reactions: No Reported Reaction, Motion Sickness Date of Last Stent Placement:: 10/2015 Past Psychological History: No Psychological Hx Reported Smoking Status: Never smoker Past Alcohol Use History: None Reported Past Drug Use History: None Reported - Past Family History Father Family Medical History: COPD Additional Family Medical History / Comment(s): AT AGE 64- EMPHYSEMA(SMOKER) Mother Family Medical History: Diabetes Mellitus, Hypertension Additional Family Medical History / Comment(s): LUPUS, LEG AMPUTATED. MOM IN HER 60'S General Exam Limitations: no limitations General appearance: alert, in no apparent distress Head exam: Present: atraumatic, normocephalic, normal inspection Eye exam: Present: normal appearance, PERRL, EOMI. Absent: scleral icterus, conjunctival injection, periorbital swelling ENT exam: Present: normal exam, mucous membranes moist Neck exam: Present: normal inspection. Absent: tenderness, meningismus, lymphadenopathy Respiratory exam: Present: normal lung sounds bilaterally. Absent: respiratory distress, wheezes, rales, rhonchi, stridor Cardiovascular Exam: Present: normal rhythm, bradycardia, normal heart sounds. Absent: systolic murmur, diastolic murmur, rubs, gallop, clicks GI/Abdominal exam: Present: soft, normal bowel sounds. Absent: distended, tenderness, guarding, rebound, rigid Extremities exam: Present: normal inspection, full ROM, normal capillary refill. Absent: tenderness, pedal edema, joint swelling, calf tenderness Back exam: Present: normal inspection Neurological exam: Present: alert, oriented X3, CN II-XII intact Psychiatric exam: Present: normal affect, normal mood Skin exam: Present: warm, dry, intact, normal color. Absent: rash Course Vital Signs 11/07/21 11/07/21 05:22 06:41 Temperature 98.2 F Pulse Rate 50 L 72 Respiratory 18 16 Rate Blood Pressure 131/66 93/46 O2 Sat by Pulse 100 100 Oximetry - Reevaluation(s) Reevaluation #1: 11/07/21 06:08 Medical record is reviewed Reevaluation #2: 11/07/21 06:08 Patient still with chest pain here in the ER despite pain management Reevaluation #3: 05/06/22 06:08 Patient informed results and questions answered - Consultations Consultation #1: Spoke with sound who agrees to admit this patient Chest Pain MDM - MDM 71 male with unstable angina chest pain, patient has history of prior [place] with stent. Patient will be admitted for cardiac observation Critical Care Time Critical Care Time: Yes Total Critical Care Time: 31 Disposition Clinical Impression: Weakness, Acute on chronic renal failure, Chest pain Disposition: ADMITTED IP TO THIS [facility] Condition: Fair Is patient prescribed a controlled substance at d/c from ED?: No Referrals: Chance Flowers MD [Primary Care Provider] - 1-2 days
[2021-11-07] MEDS ORDERED: HYDROmorphone 1 MG/ML 1 ML SYRINGE IVP STA (05:43)
[2021-11-07] MEDS ORDERED: ONDANSETRON 4 MG/2 ML VIAL IVP PRN (05:43)
[2021-11-07] MEDS ORDERED: ONDANSETRON 4 MG/2 ML VIAL IVP STA (05:43)
[2021-11-07] MEDS ORDERED: NITROGLYCERIN SL TABS 0.4 MG TAB SUBLINGUAL PRN (06:01)
[2021-11-07 06:19] LABS: INR 0.9 (<1.2); Partial Thromboplastin Time 23.8 sec (22.0-30.0); Prothrombin Time 10.2 sec (9.0-12.0)
[2021-11-07 06:22] LABS: Albumin 3.9 g/dL (3.5-5.0); Calcium 9.4 mg/dL (8.4-10.2); Magnesium 1.9 mg/dL (1.6-2.3); Phosphorus 3.8 mg/dL (2.5-4.5); Potassium 4.1 mmol/L (3.5-5.1); Total Bilirubin 0.9 mg/dL (0.2-1.3)
--- NOTE | 2021-11-07 06:25 | XR ---
EXAMINATION TYPE: XR chest 1V portable DATE OF EXAM: 11/07/2021 COMPARISON: 09/25/2021 HISTORY: Chest pain TECHNIQUE: FINDINGS: There is no heart failure nor confluent pneumonic infiltrate. Costophrenic angles are clear . There is right-sided central venous catheter with tip over the right atrium. No pleural effusion or pneumothorax. There are chest leads. IMPRESSION: No active cardiopulmonary disease. No change
[2021-11-07 06:30] LABS: Basophils % (A) 0 %; Eosinophils # (A) 0.5 k/uL (0-0.7); Eosinophils % (A) 3 %; HCT 36.6 % (39.0-53.0); HGB 12.6 gm/dL (13.0-17.5); Lymphocytes # (A) 1.9 k/uL (1.0-4.8); Lymphocytes % (A) 12 %; MCH 31.9 pg (25.0-35.0); MCHC 34.5 g/dL (31.0-37.0); Mean Platelet Volume 7.1; Monocytes # (A) 0.8 k/uL (0-1.0); Monocytes % (A) 5 %; Neutrophils # (A) 12.1 k/uL (1.3-7.7); Neutrophils % (A) 78 %; Platelet Count 260 k/uL (150-450); RBC 3.95 m/uL (4.30-5.90); RDW 15.3 % (11.5-15.5); WBC 15.6 k/uL (3.8-10.6)
[2021-11-07 06:32] LABS: MCV 92.5 fL (80.0-100.0)
[2021-11-07] MEDS ORDERED: METOCLOPRAMIDE 5 MG TAB PO PRN (08:40)
--- NOTE | 2021-11-07 08:40 | P.HPIM ---
History of Present Illness H&P Date: 11/07/21 History of Presenting Illness: Patient is a very pleasant 71-year-old male with a past medical history of CAD with stents, chronic diastolic heart failure, hypertension, hyperlipidemia, insulin-dependent diabetes mellitus, and end-stage renal disease on dialysis Tuesdays//Saturdays. He presented to the emergency department with a chief complaint of chest pain. Patient reports upon awakening this morning with pain to left anterior chest radiating into his back accompanied by shortness of breath, generalized fatigue/weakness, and mild nausea. Patient reports this pain has been persistent since awakening around 3 AM and did receive some relief with medications administered in the emergency department. Patient denies having any fevers, chills, headache, lightheadedness, dizziness, palpitations, abdominal pain, vomiting, or experiencing any pain/swelling/numbness/weakness in his extremities. Patient reports last undergoing dialysis session yesterday and completing full treatment. He reports having a chronic Maria catheter with minimal urine output. In the emergency department patient underwent full evaluation. An EKG was completed showing sinus bradycardia at 55 bpm with no noted T-wave or ST abnormalities, showing no signs of acute ischemia. Chest x- ray negative for acute cardiopulmonary process. CBC revealed leukocytosis with WBC count of 15.6, BMP revealing BUN 45, creatinine 3.75, and GFR of 15 consistent with ESRD patient due for dialysis tomorrow morning. Troponin 0.020 and d-dimer elevated at 3.39. Patient admitted under our services with consultation to cardiology and nephrology. Review of systems: Pertinent positives and negatives as discussed in HPI, a complete review of systems was performed and all other systems are negative. Physical exam: Vital signs reviewed and stable. General: Nontoxic, no distress and appears stated age. Derm: Skin warm and dry, normal coloration for ethnicity. Head: Atraumatic, normocephalic and symmetric. Eyes: EOMs intact, no lid lag, and anicteric sclera Mouth: no lip lesions, mucus membranes moist Cardiovascular: regular rate and rhythm with normal S1S2, systolic murmur, posi tive posterior tibial pulses bilaterally, and cap refill < 2 seconds. Dialysis access right anterior chest and AV fistula left upper extremity with bruit auscultated and thrill palpated. Lungs: Respirations even, regular, and unlabored on room air. Lungs CTA bilaterally, no rhonchi, no rales, no wheezing, and no accessory muscle usage. Abdominal: soft, nontender to palpation, no guarding, no appreciable organomegaly Ext: ROM intact. No gross muscle atrophy, no edema, no contractures Neuro: Speech clear, face symmetrical and CN II-XII grossly intact with no noted focal neuro deficits Psych: Alert and oriented to person, place, time, and situation. Appropriate and pleasant affect. Assessment and Plan of Care: Chest pain, rule out acute coronary event History of CAD with stents Chronic diastolic heart failure -Cardiology consult, appreciate further recommendations -Telemetry monitoring -Trend troponins -Heart healthy/renal diet -Continuation of daily medication regimen with Aspirin, Imdur and Norvasc -Echocardiogram Leukocytosis of unclear etiology -Urinalysis and culture, chronic Maria catheter to be changed out -Blood culture -Pro-calcitonin -Continued close monitoring for additional signs of infection/fevers, we will hold off on antibiotic administration at this time pending further results. ESRD -Nephrology consulted for continued dialysis Elevated d-dimer -After discussion with bead flipper, CT PE ordered as patient will undergo dialysis tomorrow morning. Hypertension -Monitor vital signs and continue daily medication regimen with Norvasc and Imdur. Hyperlipidemia -Continue daily medication regimen with atorvastatin 20 mg nightly. Insulin-dependent diabetes mellitus -Continue Levemir [address] patient on glycemic protocol with NovoLog sliding scale. The patient is admitted with an anticipated less than 2 midnight stay for evaluation of chest pain CODE STATUS: Full code DVT prophylaxis: Heparin Discussed with: Patient, patient's , and RN Anticipated discharge date: Likely tomorrow morning Anticipated discharge place: Return to SNF A total of 42 minutes was spent on the care of this complex patient more than 50% of the time was spent in counseling and care coordination. Past Medical History Past Medical History: Heart Failure, COPD, Diabetes Mellitus, Hyperlipidemia, Hypertension, Osteoarthritis (OA), Pneumonia, Renal Disease, Sleep Apnea/CPAP/BIPAP, Vascular Disorder Additional Past Medical History / Comment(s): IDDM type II, 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, chronic venous ulcer left anterior lower leg, sepsis from L leg wound, chronic anemia, hyperkalemia, CKD stage IV, UTIs, incontinence, DELVIN no longer using Cpap and is now on oxygen at 4l/nc atc, possible starting of dementia, confusion at times at night, bilateral lower leg varicosities, umbilical hernia, past duodenal ulcer with repair, Hpylori, wheelchair bound, states pt may have skin issue on his buttocks. 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 Past Anesthesia/Blood Transfusion Reactions: No Reported Reaction, Motion Sickness Date of Last Stent Placement:: 10/2015 Past Psychological History: No Psychological Hx Reported Smoking Status: Never smoker Past Alcohol Use History: None Reported Past Drug Use History: None Reported - Past Family History Father Family Medical History: COPD Additional Family Medical History / Comment(s): AT AGE 64- EMPHYSEMA(SMOKER ) Mother Family Medical History: Diabetes Mellitus, Hypertension Additional Family Medical History / Comment(s): LUPUS, LEG AMPUTATED. MOM IN HER 60'S Medications and Allergies Home Medications Medication Instructions Recorded Confirmed Type allopurinoL [Zyloprim] 100 mg PO DAILY@0800 04/22/15 11/07/21 History Atorvastatin [Lipitor] 20 mg PO HS 12/09/19 11/07/21 History bisacodyL [Dulcolax] 10 mg RECTAL DAILY PRN 09/07/20 11/07/21 History Ipratropium-Albuterol Nebulize 3 ml INHALATION RT-Q4H PRN 11/06/20 11/07/21 History [Duoneb 0.5 mg-3 mg/3 ml Soln] Isosorbide Mononitrate ER [Imdur] 30 mg PO DAILY@0800 11/13/20 11/07/21 History amLODIPine [Norvasc] 5 mg PO DAILY@0800 11/13/20 11/07/21 History Metoclopramide HCl [Reglan] 5 mg PO TID PRN 07/10/21 11/07/21 History Potassium Chloride ER [K-Dur 20] 20 meq PO BID@0800,1700 07/10/21 11/07/21 History Renal Vitamin Tablet 0.8mg 1 tab PO DAILY@0800 07/10/21 11/07/21 History Liquacel 30 ml PO BID@1200,1700 09/25/21 11/07/21 History Magic Cup 1 dose PO W/LUNCH@1200 09/25/21 11/07/21 History Fexofenadine/Pseudoephedrine 1 tab PO DAILY PRN 11/07/21 11/07/21 History [Genie-D 24 Hour Tablet] Insulin Glargine [Lantus Vial] 10 unit SQ HS 11/07/21 11/07/21 History Sevelamer [Renvela] 800 mg PO AC-TID 11/07/21 11/07/21 History Allergies Allergy/AdvReac Type Severity Reaction Status Date / Time aspirin [From Anacin] Allergy Rash/Hives Verified 11/07/21 07:19 (Dulce brand ok) Sulfa (Sulfonamide AdvReac Kidneys Verified 11/07/21 07:19 Antibiotics) sulfamethoxazole AdvReac affects Verified 11/07/21 07:19 [From Bactrim] kidneys trimethoprim [From Bactrim] AdvReac Kidneys Verified 11/07/21 07:19 Physical Exam Vitals: Vital Signs Temp Pulse Resp BP Pulse Ox 11/07/21 07:59 75 16 103/45 100 11/07/21 06:41 72 16 93/46 100 11/07/21 05:22 98.2 F 50 L 18 131/66 100 Intake and Output 11/06/21 11/07/21 11/07/21 22:59 06:59 14:59 Other: Weight 92.986 kg Results CBC & Chem 7: 11/07/21 05:42 11/07/21 05:42 Labs: Abnormal Lab Results - Last 24 Hours (Table) 11/07/21 11/07/21 11/07/21 Range/Units 05:42 05:42 05:42 WBC 15.6 H (3.8-10.6) k/uL RBC 3.95 L (4.30-5.90) m/uL Hgb 12.6 L (13.0-17.5) gm/dL Hct 36.6 L (39.0-53.0) % Neutrophils # 12.1 H (1.3-7.7) k/uL D-Dimer 3.39 H (<0.60) mg/L FEU Sodium 136 L (137-145) mmol/L BUN 45 H (9-20) mg/dL Creatinine 3.75 H (0.66-1.25) mg/dL Glucose 109 H (74-99) mg/dL
--- NOTE | 2021-11-07 09:54 | P.CRDCN ---
History of Present Illness Consult date: 11/07/21 History of present illness: HISTORY OF PRESENT ILLNESS: This is a 71-year-old male with a past medical history significant for coronary artery disease with previous stenting of the LAD, congestive heart failure, hypertension, hyperlipidemia, COPD, and chronic kidney disease. Patient follows in the office with Dr. Hewitt. We have been asked to see the patient in consultation for chest pain. Patient examined at the bedside. Patient states he woke up this morning around 3 AM with chest discomfort. He states the pain was in the middle of his chest and into his back. He states he has still having discomfort at the time of our examination. Patient states that the pain is worse with deep inspiration. He states he has been receiving pain medications in the emergency room which has helped his pain. He also reports having some discomfort near the epigastric region. * EKG reveals sinus mechanism with no signs of acute ischemia * Chest xray negative for acute process * Laboratory data: WBC 15.6. Hemoglobin 12.6. Platelet count 260. D-dimer 3.39. Sodium 136. Potassium 4.1. BUN 45. Creatinine 3.75. Troponin negative 2. ProBNP 3270. * Current home cardiac medications include Lipitor 20 mg at night, Imdur 30mg daily, Norvasc 5 mg daily * Most recent echocardiogram obtained in July 2021 revealed ejection fraction 50-55%, mild MR, mild TR * Cardiac catheterization history: October 2015 with stenting to the LAD REVIEW OF SYSTEMS: At the time of my exam: CONSTITUTIONAL: Denies fever or chills. HEENT: Denies blurred vision, vision changes, or eye pain. Denies hemoptysis CARDIOVASCULAR: Denies chest pain. Denies orthopnea. Denies PND. Denies palpitations RESPIRATORY: Denies shortness of breath. GASTROINTESTINAL: Denies abdominal pain. Denies nausea or vomiting. HEMATOLOGIC: Denies bleeding disorders. GENITOURINARY: Denies any blood in urine. SKIN: Denies pruitis. Denies rash. PHYSICAL EXAM: VITAL SIGNS: Reviewed. GENERAL: Well-developed in no acute distress. HEENT: Head is normocephalic. Pupils are equal, round. Sclerae anicteric. Mucous membranes of the mouth are moist. Neck supple. No JVD or thyromegaly LUNGS: Respirations even and unlabored. Lungs essentially clear to auscultation bilaterally. HEART: Regular rate and rhythm. S1 and S2 heard. ABDOMEN: Soft. Nondistended. Nontender. EXTREMITIES: Normal range of motion. No clubbing or cyanosis. Peripheral pulses intact. No lower extremity edema NEUROLOGIC: Awake and alert. Oriented x 3. ASSESSMENT: Chest pain, pleuritic in nature, troponin negative 2 Coronary artery disease with previous stenting of LAD Chronic congestive heart failure with preserved ejection fraction Hypertension Hyperlipidemia COPD Chronic kidney disease PLAN: Troponins are negative x 2. An acute coronary event has been ruled out Further evaluation of elevated d-dimer per primary medicine No indication for stress test or cardiac cath at this time Patient may be discharged home today from a cardiac standpoint We will sign off. Please reconsult if needed Nurse practitioner note has been reviewed by physician. Signing provider agrees with the documented findings, assessment, and plan of care. Past Medical History Past Medical History: Heart Failure, COPD, Diabetes Mellitus, Hyperlipidemia, Hypertension, Osteoarthritis (OA), Pneumonia, Renal Disease, Sleep Apnea/CPAP/BIPAP, Vascular Disorder Additional Past Medical History / Comment(s): IDDM type II, 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, chronic venous ulcer left anterior lower leg, sepsis from L leg wound, chronic anemia, hyperkalemia, CKD stage IV, UTIs, incontinence, DELVIN no longer using Cpap and is now on oxygen at 4l/nc atc, possible starting of dementia, confusion at times at night, bilateral lower leg varicosities, umbilical hernia, past duodenal ulcer with repair, Hpylori, wheelchair bound, states pt may have skin issue on his buttocks. 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 Past Anesthesia/Blood Transfusion Reactions: No Reported Reaction, Motion Sickness Date of Last Stent Placement:: 10/2015 Past Psychological History: No Psychological Hx Reported Smoking Status: Never smoker Past Alcohol Use History: None Reported Past Drug Use History: None Reported - Past Family History Father Family Medical History: COPD Additional Family Medical History / Comment(s): AT AGE 64- EMPHYSEMA(SMOKER) Mother Family Medical History: Diabetes Mellitus, Hypertension Additional Family Medical History / Comment(s): LUPUS, LEG AMPUTATED. MOM IN HER 60'S Medications and Allergies Home Medications Medication Instructions Recorded Confirmed Type allopurinoL [Zyloprim] 100 mg PO DAILY@0800 04/22/15 11/07/21 History Atorvastatin [Lipitor] 20 mg PO HS 12/09/19 11/07/21 History bisacodyL [Dulcolax] 10 mg RECTAL DAILY PRN 09/07/20 11/07/21 History Ipratropium-Albuterol Nebulize 3 ml INHALATION RT-Q4H PRN 11/06/20 11/07/21 History [Duoneb 0.5 mg-3 mg/3 ml Soln] Isosorbide Mononitrate ER [Imdur] 30 mg PO DAILY@0800 11/13/20 11/07/21 History amLODIPine [Norvasc] 5 mg PO DAILY@0800 11/13/20 11/07/21 History Metoclopramide HCl [Reglan] 5 mg PO TID PRN 07/10/21 11/07/21 History Potassium Chloride ER [K-Dur 20] 20 meq PO BID@0800,1700 07/10/21 11/07/21 History Renal Vitamin Tablet 0.8mg 1 tab PO DAILY@0800 07/10/21 11/07/21 History Liquacel 30 ml PO BID@1200,1700 09/25/21 11/07/21 History Magic Cup 1 dose PO W/LUNCH@1200 09/25/21 11/07/21 History Fexofenadine/Pseudoephedrine 1 tab PO DAILY PRN 11/07/21 11/07/21 History [Genie-D 24 Hour Tablet] Insulin Glargine [Lantus Vial] 10 unit SQ HS 11/07/21 11/07/21 History Sevelamer [Renvela] 800 mg PO AC-TID 11/07/21 11/07/21 History Allergies Allergy/AdvReac Type Severity Reaction Status Date / Time aspirin [From Anacin] Allergy Rash/Hives Verified 11/07/21 07:19 (Dulce brand ok) Sulfa (Sulfonamide AdvReac Kidneys Verified 11/07/21 07:19 Antibiotics) sulfamethoxazole AdvReac affects Verified 11/07/21 07:19 [From Bactrim] kidneys trimethoprim [From Bactrim] AdvReac Kidneys Verified 11/07/21 07:19 Physical Exam Vitals: Vital Signs Temp Pulse Resp BP Pulse Ox 11/07/21 07:59 75 16 103/45 100 11/07/21 06:41 72 16 93/46 100 11/07/21 05:22 98.2 F 50 L 18 131/66 100 Intake and Output 11/06/21 11/07/21 11/07/21 22:59 06:59 14:59 Other: Weight 92.986 kg Results 11/07/21 05:42 11/07/21 05:42 Cardiac Enzymes 11/07/21 11/07/21 11/07/21 Range/Units 05:42 05:42 08:26 AST 24 (17-59) U/L Troponin I 0.020 0.020 (0.000-0.034) ng/mL Coagulation 11/07/21 Range/Units 05:42 PT 10.2 (9.0-12.0) sec APTT 23.8 (22.0-30.0) sec CBC 11/07/21 Range/Units 05:42 WBC 15.6 H (3.8-10.6) k/uL RBC 3.95 L (4.30-5.90) m/uL Hgb 12.6 L (13.0-17.5) gm/dL Hct 36.6 L (39.0-53.0) % Plt Count 260 (150-450) k/uL Comprehensive Metabolic Panel 11/07/21 Range/Units 05:42 Sodium 136 L (137-145) mmol/L Potassium 4.1 (3.5-5.1) mmol/L Chloride 100 (98-107) mmol/L Carbon Dioxide 23 (22-30) mmol/L BUN 45 H (9-20) mg/dL Creatinine 3.75 H (0.66-1.25) mg/dL Glucose 109 H (74-99) mg/dL Calcium 9.4 (8.4-10.2) mg/dL AST 24 (17-59) U/L ALT 13 (4-49) U/L Alkaline Phosphatase 94 (38-126) U/L Total Protein 7.0 (6.3-8.2) g/dL Albumin 3.9 (3.5-5.0) g/dL Current Medications Generic Name Dose Route Start Last Admin Trade Name Freq PRN Reason Stop Dose Admin Allopurinol 100 mg 11/08/21 08:00 Allopurinol 100 Mg Tab PO DAILY@0800 [facility] Amlodipine Besylate 5 mg 11/07/21 09:15 Amlodipine 5 Mg Tab PO DAILY@0800 [facility] Atorvastatin Calcium 20 mg 11/07/21 21:00 Atorvastatin 20 Mg Tab PO HS [facility] Hydromorphone HCl 1 mg 11/07/21 05:43 Hydromorphone 1 Mg/Ml 1 Ml Syringe IVP Q4HR PRN Pain Insulin Aspart 0 unit 11/07/21 12:30 Insulin Aspart (Novolog) 100 Unit/Ml Vial SQ ACHS [facility] Protocol Insulin Detemir 10 unit 11/07/21 21:00 Insulin Detemir (Levemir) 100 Unit/Ml Syr SQ [facility] Isosorbide Mononitrate 30 mg 11/07/21 09:15 Isosorbide Mononitrate Er 30 Mg Tab.Er.24h PO DAILY@0800 [facility] Metoclopramide HCl 5 mg 11/07/21 08:40 Metoclopramide 5 Mg Tab PO TID PRN HICCUPS Multivit/Ca Carb/B Cmplx/FA/Prenat 1 each 11/08/21 08:00 Folic Acid-Vit B Complex-Vit C 1 Cap PO DAILY@0800 [facility] Nitroglycerin 0.4 mg 11/07/21 06:01 Nitroglycerin Sl Tabs 0.4 Mg Tab SUBLINGUAL Q5M PRN Chest Pain Ondansetron HCl 4 mg 11/07/21 05:43 Ondansetron 4 Mg/2 Ml Vial IVP Q8HR PRN Nausea And Vomiting Sevelamer Carbonate 800 mg 11/07/21 12:30 Sevelamer 800 Mg Tab PO AC-TID [facility] Intake and Output 11/06/21 11/07/21 11/07/21 22:59 06:59 14:59 Other: Weight 92.986 kg 11/07/21 05:42 11/07/21 05:42
[2021-11-07] MEDS: amLODIPine 5 MG TAB PO SCH (10:12)
[2021-11-07] MEDS: ISOSORBIDE MONONITRATE ER 30 MG TAB.ER.24H PO SCH (10:12)
--- NOTE | 2021-11-07 10:42 | CA ---
Transthoracic Echo Report Name: Fadi Meza Age: 71 Gender: M : 1950 Exam Date: 11/07/2021 07:50 Exam Location: [place] [facility] Ht (in): 71 Wt (lb): 205 Ordering Physician: Darwin Whaley DO Attending/Referring Phys: Camille Cruz MD [employer] Yolanda Kat RDCS Procedure CPT: Indications: CP Cardiac Hx: Technical Quality: Fair Contrast 1: Total Dose (mL): Contrast 2: Total Dose (mL): MEASUREMENTS (Male / Female) Normal Values 2D ECHO LV Diastolic Diameter PLAX 5.3 cm 4.2 - 5.9 / 3.9 - 5.3 cm LV Systolic Diameter PLAX 3.1 cm IVS Diastolic Thickness 1.1 cm 0.6 - 1.0 / 0.6 - 0.9 cm LVPW Diastolic Thickness 1.4 cm 0.6 - 1.0 / 0.6 - 0.9 cm LV Relative Wall Thickness 0.5 DOPPLER AV Peak Velocity 177.6 cm/s AV Peak Gradient 12.6 mmHg FINDINGS Left Ventricle Limited echo study, Normal Left ventricular size, wall thickness, systolic function with no obvious regional wall motion abnormalities. Normal Left ventricular diastolic filling pattern. Left ventricular ejection fraction is estimated at 55-60 %. Right Ventricle Right Atrium Left Atrium Mitral Valve No mitral stenosis, regurgitation or prolapse. Aortic Valve No aortic valve stenosis or regurgitation. Tricuspid Valve No tricuspid stenosis. Mild tricuspid regurgitation. Pulmonic Valve Pericardium No pericardial effusion. Aorta CONCLUSIONS Preserved LV size and systolic function Previewed by: Dr. Santiago Khanna MD (Electronically Signed) Final Date: 07 Nov 2021 10:41
--- NOTE | 2021-11-07 11:50 | P.NPCON ---
History of Present Illness - Reason for Consult end stage renal disease - History of Present Illness Reason for consultation: End-stage renal disease History of present illness: Patient is a 71-year-old male seen in renal consultation for end-stage renal disease. Patient was seen and examined in the emergency room. He is maintained on hemodialysis on Wednesday schedule via right chest permacath. He also has a mature left upper extremity AV fistula which is now also been used. He completed hemodialysis yesterday. Patient resides at [facility]. He presented to the hospital with chest pain with radiation to his back. Patient states the chest pain began last night. He denies taking any medications to alleviate the pain. Patient does have history of coronary artery disease for stenting of the LAD in the past. He has been evaluated by cardiology. No interventions are planned. Echocardiogram shows preserved ejection fraction. Patient states she is a chronic Maria catheter for about one year now due to immobility. No vomiting or diarrhea. No shortness of breath at this time. No fever or chills. Vital signs are stable. General: Awake and alert. No acute distress. HEENT: Head exam is unremarkable. LUNGS: Breath sounds decreased. HEART: Rate and Rhythm are regular. ABDOMEN: Soft, no distention. EXTREMITITES: No edema. Past Medical History Past Medical History: Heart Failure, COPD, Diabetes Mellitus, Hyperlipidemia, Hypertension, Osteoarthritis (OA), Pneumonia, Renal Disease, Sleep Apnea/CPAP/BIPAP, Vascular Disorder Additional Past Medical History / Comment(s): IDDM type II, 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, chronic venous ulcer left anterior lower leg, sepsis from L leg wound, chronic anemia, hyperkalemia, CKD stage IV, UTIs, incontinence, DELVIN no longer using Cpap and is now on oxygen at 4l/nc atc, possible starting of dementia, confusion at times at night, bilateral lower leg varicosities, umbilical hernia, past duodenal ulcer with repair, Hpylori, wheelchair bound, states pt may have skin issue on his buttocks. 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 Past Anesthesia/Blood Transfusion Reactions: No Reported Reaction, Motion Sickness Date of Last Stent Placement:: 10/2015 Past Psychological History: No Psychological Hx Reported Smoking Status: Never smoker Past Alcohol Use History: None Reported Past Drug Use History: None Reported - Past Family History Father Family Medical History: COPD Additional Family Medical History / Comment(s): AT AGE 64- EMPHYSEMA(SMOKER) Mother Family Medical History: Diabetes Mellitus, Hypertension Additional Family Medical History / Comment(s): LUPUS, LEG AMPUTATED. MOM IN HER 60'S Medications and Allergies Home Medications Medication Instructions Recorded Confirmed Type allopurinoL [Zyloprim] 100 mg PO DAILY@0800 04/22/15 11/07/21 History Atorvastatin [Lipitor] 20 mg PO HS 12/09/19 11/07/21 History bisacodyL [Dulcolax] 10 mg RECTAL DAILY PRN 09/07/20 11/07/21 History Ipratropium-Albuterol Nebulize 3 ml INHALATION RT-Q4H PRN 11/06/20 11/07/21 History [Duoneb 0.5 mg-3 mg/3 ml Soln] Isosorbide Mononitrate ER [Imdur] 30 mg PO DAILY@0800 11/13/20 11/07/21 History amLODIPine [Norvasc] 5 mg PO DAILY@0800 11/13/20 11/07/21 History Metoclopramide HCl [Reglan] 5 mg PO TID PRN 07/10/21 11/07/21 History Potassium Chloride ER [K-Dur 20] 20 meq PO BID@0800,1700 07/10/21 11/07/21 History Renal Vitamin Tablet 0.8mg 1 tab PO DAILY@0800 07/10/21 11/07/21 History Liquacel 30 ml PO BID@1200,1700 09/25/21 11/07/21 History Magic Cup 1 dose PO W/LUNCH@1200 09/25/21 11/07/21 History Fexofenadine/Pseudoephedrine 1 tab PO DAILY PRN 11/07/21 11/07/21 History [Genie-D 24 Hour Tablet] Insulin Glargine [Lantus Vial] 10 unit SQ HS 11/07/21 11/07/21 History Sevelamer [Renvela] 800 mg PO AC-TID 11/07/21 11/07/21 History Allergies Allergy/AdvReac Type Severity Reaction Status Date / Time aspirin [From Anacin] Allergy Rash/Hives Verified 11/07/21 07:19 (Dulce brand ok) Sulfa (Sulfonamide AdvReac Kidneys Verified 11/07/21 07:19 Antibiotics) sulfamethoxazole AdvReac affects Verified 11/07/21 07:19 [From Bactrim] kidneys trimethoprim [From Bactrim] AdvReac Kidneys Verified 11/07/21 07:19 Physical Exam Vitals: Vital Signs Temp Pulse Resp BP Pulse Ox 11/07/21 11:27 94 20 85/51 100 11/07/21 10:14 77 18 117/60 100 11/07/21 07:59 75 16 103/45 100 11/07/21 06:41 72 16 93/46 100 11/07/21 05:22 98.2 F 50 L 18 131/66 100 Intake and Output 11/06/21 11/07/21 11/07/21 22:59 06:59 14:59 Other: Weight 92.986 kg Results - Lab Results Most recent lab results Calcium 9.4 mg/dL (8.4-10.2) 11/07/21 05:42 Phosphorus 3.8 mg/dL (2.5-4.5) 11/07/21 05:42 Magnesium 1.9 mg/dL (1.6-2.3) 11/07/21 05:42 11/07/21 05:42 11/07/21 05:42 Assessment and Plan Plan: Assessment: 1. End-stage renal disease maintained on hemodialysis on Wednesday schedule. 2. Chest pain. Cardiology following. No evidence of acute coronary syndrome. 3. History of coronary disease status post LAD stenting. 4. Hypertension with chronic kidney disease. Blood pressure on the lower side. 5. Diabetes mellitus. 6. Chronic kidney disease mineral bone disease maintained on Renvela. Plan: Hemodialysis tomorrow. Hold amlodipine for systolic blood pressure less than 120. Discontinue Maria catheter. Recently started using his AV fistula outpatient. Will discontinue Pcath in the near future. Thank you for the consultation. I will continue to follow the patient with you during his hospital stay.
[2021-11-07 12:52] LABS: Glucose,Whole Blood 157 mg/dL (75-99)
[2021-11-07] MEDS: INSULIN ASPART (NovoLOG) 100 UNIT/ML VIAL SQ SCH ×3 (12:55→21:18)
[2021-11-07] MEDS: SEVELAMER 800 MG TAB PO SCH ×2 (12:59→21:23)
[2021-11-07 17:45] LABS: Glucose,Whole Blood 126 mg/dL (75-99)
[2021-11-07] MEDS: HYDROmorphone 1 MG/ML 1 ML SYRINGE IVP PRN ×2 (18:46→23:52)
--- NOTE | 2021-11-07 18:51 | CT ---
EXAMINATION TYPE: CT chest angio for PE CT DLP: 420.60 mGycm, Automated exposure control for dose reduction was used. DATE OF EXAM: 11/07/2021 6:13 PM COMPARISON: . Chest radiograph from same day. Multiple CTs of the chest with most recent on . CLINICAL INDICATION:Male, 71 years old with history of Elevated d-dimer,, chest pain; TECHNIQUE/CONTRAST: CTA scan of the thorax is performed with IV Contrast, patient injected with 100, wasted 51 mL of Isov ue 370, pulmonary embolism protocol. MIP images are created and reviewed. FINDINGS: Pulmonary Artery: There is no evidence for a filling defect within the pulmonary vasculature to sugge st acute pulmonary embolism. The pulmonary artery is of normal size. Lungs/Pleura: No evidence of focal consolidation, pleural effusion or pneumothorax. Airway: Large airways are patent. Heart: Heart is mildly enlarged for size with coronary artery atherosclerosis. Vasculature: No evidence of aortic aneurysm. Right catheter with tip terminating at the superior cavo atrial junction. Mediastinum: No gross evidence of adenopathy. Musculoskeletal: No acute osseous abnormalities. Multilevel disc degeneration changes of the spine wi th bridging anterior osteophytes along the anterior longitudinal ligament suggestive of diffuse idiop athic skeletal hyperostosis. Soft Tissues: Increased density posterior to the nipples bilaterally consistent with gynecomastia. Lower neck: Thyroid is mildly enlarged for size. Upper Abdomen: The gallbladder is surgically absent. IMPRESSION: 1. No evidence of pulmonary embolism. 2. Right central venous catheter with tip at the superior cavoatrial junction. 3. Moderate to severe coronary artery atherosclerosis. 4. cardiomegaly.
[2021-11-07] MEDS ORDERED: INSULIN DETEMIR (LEVEMIR) 100 UNIT/ML SYR SQ SCH (21:00)
[2021-11-07] MEDS ORDERED: ATORVASTATIN 20 MG TAB PO SCH (21:00)
[2021-11-07 21:19] LABS: Glucose,Whole Blood 157 mg/dL (75-99)
[2021-11-07] MEDS: HEPARIN SODIUM,PORCINE/PF 5,000 UNIT/0.5 ML SYRINGE SQ SCH (21:23)
[2021-11-08] MEDS: HYDROmorphone 1 MG/ML 1 ML SYRINGE IVP PRN ×2 (05:33→13:37)
[2021-11-08 06:51] LABS: HCT 37.7 % (39.0-53.0); HGB 11.5 gm/dL (13.0-17.5); MCH 29.1 pg (25.0-35.0); MCHC 30.7 g/dL (31.0-37.0); MCV 95.1 fL (80.0-100.0); Mean Platelet Volume 7.4; Platelet Count 191 k/uL (150-450); RBC 3.96 m/uL (4.30-5.90); RDW 14.8 % (11.5-15.5); WBC 10.8 k/uL (3.8-10.6)
[2021-11-08 07:01] LABS: ALT 11 U/L (4-49); AST 19 U/L (17-59); African American GFR (CKD) 11 (>60 ml/min/1.73 sqM); Albumin 3.6 g/dL (3.5-5.0); Albumin/Globulin Ratio 1.2; Alkaline Phosphatase 95 U/L (38-126); Anion Gap 14 mmol/L; Blood Urea Nitrogen 64 mg/dL (9-20); Calcium 9.3 mg/dL (8.4-10.2); Carbon Dioxide 24 mmol/L (22-30); Chloride 95 mmol/L (98-107); Globulin 3.1 g/dL; Glucose 77 mg/dL (74-99); Non-African American GFR(CKD) 9 (>60 ml/min/1.73 sqM); Potassium 3.8 mmol/L (3.5-5.1); Sodium 133 mmol/L (137-145); Total Bilirubin 0.6 mg/dL (0.2-1.3); Total Protein 6.7 g/dL (6.3-8.2)
[2021-11-08 07:16] LABS: Glucose,Whole Blood 82 mg/dL (75-99)
[2021-11-08] MEDS ORDERED: allopurinoL 100 MG TAB PO SCH (08:00)
[2021-11-08] MEDS ORDERED: FOLIC ACID-VIT B COMPLEX-VIT C 1 CAP PO SCH (08:00)
[2021-11-08 08:41] VITALS: RESP 18; TEMP 98.3
[2021-11-08] MEDS: INSULIN ASPART (NovoLOG) 100 UNIT/ML VIAL SQ SCH ×2 (09:00→12:21)
--- NOTE | 2021-11-08 09:28 | P.DS ---
Providers Date of admission: 11/07/21 06:01 Expected date of discharge: 11/08/21 Attending physician: Mayo Montesinos MD Consults: 11/07/21 16:21 Consult Physician Routine Consulting Provider: Afshin Mcintyre Consult Reason/Comments: dialysis Do you want consulting provider notified?: Already Contacted Primary care physician: [facility] Course: Patient is a very pleasant 71-year-old male with a past medical history of CAD with stents, chronic diastolic heart failure, hypertension, hyperlipidemia, insulin-dependent diabetes mellitus, and end-stage renal disease on dialysis Tuesdays//Saturdays. He presented to the emergency department with a chief complaint of chest pain. Patient reports upon awakening this morning with pain to left anterior chest radiating into his back accompanied by shortness of breath, generalized fatigue/weakness, and mild nausea. Patient reports this pain has been persistent since awakening around 3 AM and did receive some relief with medications administered in the emergency department. Patient denies having any fevers, chills, headache, lightheadedness, dizziness, palpitations, abdominal pain, vomiting, or experiencing any pain/swelling/numbness/weakness in his extremities. Patient reports last undergoing dialysis session yesterday and completing full treatment. He reports having a chronic Maria catheter with minimal urine output. In the emergency department patient underwent full evaluation. An EKG was completed showing sinus bradycardia at 55 bpm with no noted T-wave or ST abnormalities, showing no signs of acute ischemia. Chest x- ray negative for acute cardiopulmonary process. CBC revealed leukocytosis with WBC count of 15.6, BMP revealing BUN 45, creatinine 3.75, and GFR of 15 consistent with ESRD patient due for dialysis tomorrow morning. Troponin 0.020 and d-dimer elevated at 3.39. Patient admitted under our services with consultation to cardiology and nephrology. Troponins were trended 0.02, 0.02, 0.017. Acute coronary syndrome was ruled out. Cardiology was consulted and recommeded Echocardiogram. Echocardiogram showed EF 55-60% without regional wall motion abnormalities. Cardiology cleared the patient for discharge. CTA chest was performed on 11/07 which showed no PE, moderate to severe CAD. Nephrology was consulted and dialysis was performed on 11/08/21. Patient was seen and examined on 11/08. He continued to report chest pain with movement of his chest wall and deep inspiration. He was advised to follow up with PCP within 1-2 days of discharge. Follow up with Cardiology within 1 week of discharge. Advised to resume dialysis schedule on Wednesday, , Wednesday schedule. Case management was consulted to discharge patient back to [facility]. Patient verbalized understanding of the plan. This complex discharge took 45 minutes to complete. General: [non toxic], [no distress], [appears at stated age] Derm: [warm], [dry] Head: [atraumatic], [normocephalic], [symmetric] Eyes: [EOMI], [no lid lag], [anicteric sclera] Mouth: [no lip lesion], [mucus membranes moist] Cardiovascular: [S1S2 reg], [systolic murmur], [positive posterior tibial pulse bilateral] Lungs: [CTA bilateral], [no rhonchi, no rales] , [no accessory muscle use] Ext: [no gross muscle atrophy], [no edema], [no contractures], [R anterior chest dialysis access, AV fistula LUE with thrill] Neuro: [no focal neuro deficits] Psych: [Alert], [oriented], [appropriate affect] Discharge Diagnosis: Chest pain, rule out acute coronary event History of CAD with stents Chronic diastolic heart failure Leukocytosis of unclear etiology ESRD Elevated D-Dimer Hypertension Dyslipidemia Insulin dependent diabetes mellitus Pertinent Studies: Chest Xray EKG Echocardiogram Chest CTA Patient Condition at Discharge: Stable Plan - Discharge Summary Discharge Rx Participant: No New Discharge Prescriptions: Continue allopurinoL [Zyloprim] 100 mg PO DAILY@0800 Atorvastatin [Lipitor] 20 mg PO HS bisacodyL [Dulcolax] 10 mg RECTAL DAILY PRN PRN Reason: Constipation Renal Vitamin Tablet 0.8mg 1 tab PO DAILY@0800 Fexofenadine/Pseudoephedrine [Genie-D 24 Hour Tablet] 1 tab PO DAILY PRN PRN Reason: Allergy Symptoms Insulin Glargine [Lantus Vial] 10 unit SQ HS Ipratropium-Albuterol Nebulize [Duoneb 0.5 mg-3 mg/3 ml Soln] 3 ml INHALATION RT-Q4H PRN PRN Reason: Shortness Of Breath amLODIPine [Norvasc] 5 mg PO DAILY@0800 Isosorbide Mononitrate ER [Imdur] 30 mg PO DAILY@0800 Metoclopramide HCl [Reglan] 5 mg PO TID PRN PRN Reason: HICCUPS Potassium Chloride ER [K-Dur 20] 20 meq PO BID@0800,1700 Magic Cup 1 dose PO W/LUNCH@1200 Liquacel 30 ml PO BID@1200,1700 Sevelamer [Renvela] 800 mg PO AC-TID Discharge Medication List allopurinoL [Zyloprim] 100 mg PO DAILY@0800 04/22/15 [History] Atorvastatin [Lipitor] 20 mg PO HS 12/09/19 [History] bisacodyL [Dulcolax] 10 mg RECTAL DAILY PRN 09/07/20 [History] Ipratropium-Albuterol Nebulize [Duoneb 0.5 mg-3 mg/3 ml Soln] 3 ml INHALATION RT-Q4H PRN 11/06/20 [History] Isosorbide Mononitrate ER [Imdur] 30 mg PO DAILY@0800 11/13/20 [History] amLODIPine [Norvasc] 5 mg PO DAILY@0800 11/13/20 [History] Metoclopramide HCl [Reglan] 5 mg PO TID PRN 07/10/21 [History] Potassium Chloride ER [K-Dur 20] 20 meq PO BID@0800,1700 07/10/21 [History] Renal Vitamin Tablet 0.8mg 1 tab PO DAILY@0800 07/10/21 [History] Liquacel 30 ml PO BID@1200,1700 09/25/21 [History] Magic Cup 1 dose PO W/LUNCH@1200 09/25/21 [History] Fexofenadine/Pseudoephedrine [Genie-D 24 Hour Tablet] 1 tab PO DAILY PRN 11/07/21 [History] Insulin Glargine [Lantus Vial] 10 unit SQ HS 11/07/21 [History] Sevelamer [Renvela] 800 mg PO AC-TID 11/07/21 [History] Follow up Appointment(s)/Referral(s): Trino Yarbrough MD [STAFF PHYSICIAN] - 1 Week Chance Flowers MD [Primary Care Provider] - 1-2 days Mcintyre,Afshin, DO [STAFF PHYSICIAN] - 1 Week Activity/Diet/Wound Care/Special Instructions: Diet: Renal FU with your PCP within 1-2 days of discharge. FU with Cardiology within 1 week of discharge. FU with Nephrology within 1 week of discharge. Resume dialysis schedule Wednesday. Come back to the ED or call 911 for worsening chest pain, shortness of breath, palpitations, dizziness/lightheadedness. Discharge Disposition: TRANSFER TO SNF/ECF
[2021-11-08 12:08] LABS: Glucose,Whole Blood 105 mg/dL (75-99)
[2021-11-08] MEDS: SEVELAMER 800 MG TAB PO SCH ×2 (12:20→13:43)
[2021-11-08] MEDS: HEPARIN SODIUM,PORCINE/PF 5,000 UNIT/0.5 ML SYRINGE SQ SCH (12:21)
[2021-11-08] MEDS: amLODIPine 5 MG TAB PO SCH (12:21)
[2021-11-08] MEDS: ISOSORBIDE MONONITRATE ER 30 MG TAB.ER.24H PO SCH (13:43)
[2021-11-08 15:17] VITALS: BP 94/56; PULSE 91
[2021-11-08 16:23] LABS: LDL Cholesterol,Calculated 40.4 mg/dL (0.0-131.0); VLDL Calculation 16.24 mg/dL (5.00-40.00)
== END 2021-11-08 15:13 ==
LOC: EC 05:20 → 6NMEDSUR 06:01
PROVIDERS: ADMIT Internal Medicine; ATTEND Internal Medicine
DX: R07.89 Other chest pain (principal); I25.10 Atherosclerotic heart disease of native coronary artery without angina pectoris; I13.2 Hypertensive heart and chronic kidney disease with heart failure and with stage 5 chronic kidney disease, or end stage renal disease; E11.22 Type 2 diabetes mellitus with diabetic chronic kidney disease; N18.6 End stage renal disease; I50.32 Chronic diastolic (congestive) heart failure; J44.9 Chronic obstructive pulmonary disease, unspecified; E78.5 Hyperlipidemia, unspecified; R00.1 Bradycardia, unspecified; D72.829 Elevated white blood cell count, unspecified; R79.89 Other specified abnormal findings of blood chemistry; Z99.2 Dependence on renal dialysis; I25.2 Old myocardial infarction; G47.33 Obstructive sleep apnea (adult) (pediatric); M19.90 Unspecified osteoarthritis, unspecified site; D64.9 Anemia, unspecified; R32 Unspecified urinary incontinence; I83.93 Asymptomatic varicose veins of bilateral lower extremities; E11.42 Type 2 diabetes mellitus with diabetic polyneuropathy; M89.8X9 Other specified disorders of bone, unspecified site; Z79.82 Long term (current) use of aspirin; Z79.51 Long term (current) use of inhaled steroids; Z79.4 Long term (current) use of insulin; Z79.899 Other long term (current) drug therapy; Z88.1 Allergy status to other antibiotic agents; Z88.2 Allergy status to sulfonamides; Z88.6 Allergy status to analgesic agent; Z90.49 Acquired absence of other specified parts of digestive tract; Z95.5 Presence of coronary angioplasty implant and graft; Z96.0 Presence of urogenital implants; Z87.01 Personal history of pneumonia (recurrent); Z16.12 Extended spectrum beta lactamase (ESBL) resistance; Z16.21 Resistance to vancomycin; Z86.14 Personal history of Methicillin resistant Staphylococcus aureus infection; Z16.24 Resistance to multiple antibiotics; Z98.42 Cataract extraction status, left eye; Z98.41 Cataract extraction status, right eye; Z87.440 Personal history of urinary (tract) infections; Z99.3 Dependence on wheelchair; Z86.19 Personal history of other infectious and parasitic diseases; Z98.890 Other specified postprocedural states; Z82.5 Family history of asthma and other chronic lower respiratory diseases; Z81.2 Family history of tobacco abuse and dependence; Z83.3 Family history of diabetes mellitus; Z82.49 Family history of ischemic heart disease and other diseases of the circulatory system; Z84.89 Family history of other specified conditions
CPT/HCPCS: 96376 ×2; 96372; 96374; 96375; 99291; 36415; 93005; 93308; 85379; 83880; 80061; 80053 ×2; 83735 ×2; 84100; 84484; 85025; 85027; 85610; 85730; 87040; 84145; 71045; 71275; G0257; G0378 ×2; J2405; J1170 ×2; Q9967; J1644; 90935

== ENCOUNTER 2021-11-26 13:06 | Emergency (ER) | payer MEDICARE, BC ==
[2021-11-26 14:10] LABS: Basophils # (A) 0.1 k/uL (0-0.2); Basophils % (A) 1 %; Eosinophils # (A) 0.2 k/uL (0-0.7); Eosinophils % (A) 1 %; HCT 30.2 % (39.0-53.0); HGB 9.6 gm/dL (13.0-17.5); Lymphocytes # (A) 1.4 k/uL (1.0-4.8); Lymphocytes % (A) 11 %; MCH 30.3 pg (25.0-35.0); MCHC 31.8 g/dL (31.0-37.0); MCV 95.2 fL (80.0-100.0); Mean Platelet Volume 7.1; Monocytes # (A) 0.9 k/uL (0-1.0); Monocytes % (A) 7 %; Neutrophils # (A) 10.1 k/uL (1.3-7.7); Neutrophils % (A) 79 %; Platelet Count 431 k/uL (150-450); RBC 3.17 m/uL (4.30-5.90); RDW 15.5 % (11.5-15.5); WBC 12.8 k/uL (3.8-10.6)
--- NOTE | 2021-11-26 14:12 | XR ---
EXAMINATION TYPE: XR chest 2V DATE OF EXAM: 11/26/2021 COMPARISON: Chest x-ray and CT 11/07/2021 HISTORY: Globus sensation, sensation of food stuck in throat, choking on chicken right TECHNIQUE: Frontal and lateral views of the chest are obtained. FINDINGS: Right jugular central venous catheter for dialysis is again noted, distal tip in the right atrium. There is no evident pneumothorax or pleural effusion is noted on the frontal exam, questiona ble blunting of the costophrenic angle posteriorly may be due to superimposition of structures. Right hemidiaphragm is elevated. Arthropathy is noted in the shoulders. IMPRESSION: No radiopaque foreign body is evident.
[2021-11-26 14:13] LABS: Albumin 3.5 g/dL (3.5-5.0); Calcium 9.3 mg/dL (8.4-10.2); Potassium 4.3 mmol/L (3.5-5.1); Total Bilirubin 0.3 mg/dL (0.2-1.3); Total Protein 6.5 g/dL (6.3-8.2)
--- NOTE | 2021-11-26 14:17 | ED ---
ENT HPI - General Chief complaint: ENT Stated complaint: Choking Time Seen by Provider: 11/26/21 13:18 Source: patient, EMS Mode of arrival: EMS Limitations: no limitations - History of Present Illness Initial comments: Patient is a 71-year-old male who presents with concern for chicken stuck in his throat. Patient states he was eating lunch and believes he cut the chicken stuck in his throat. Patient denies chest pain and shortness of breath however states he does feel that the foreign body is deep. Denies throat pain or swelling. Patient states he has been able to swallow water since the incident. States it is more difficult to swallow secretions. Has history of EGD with duodenal ulcer repair a couple years ago but otherwise denies other throat issues or procedures. Of note, patient wears 3 L of supplemental oxygen nasal cannula at home. - Related Data Home Medications Medication Instructions Recorded Confirmed allopurinoL [Zyloprim] 100 mg PO DAILY@0800 04/22/15 11/07/21 Atorvastatin [Lipitor] 20 mg PO HS 12/09/19 11/07/21 bisacodyL [Dulcolax] 10 mg RECTAL DAILY PRN 09/07/20 11/07/21 Ipratropium-Albuterol Nebulize 3 ml INHALATION RT-Q4H PRN 11/06/20 11/07/21 [Duoneb 0.5 mg-3 mg/3 ml Soln] Isosorbide Mononitrate ER [Imdur] 30 mg PO DAILY@0800 11/13/20 11/07/21 amLODIPine [Norvasc] 5 mg PO DAILY@0800 11/13/20 11/07/21 Metoclopramide HCl [Reglan] 5 mg PO TID PRN 07/10/21 11/07/21 Potassium Chloride ER [K-Dur 20] 20 meq PO BID@0800,1700 07/10/21 11/07/21 Renal Vitamin Tablet 0.8mg 1 tab PO DAILY@0800 07/10/21 11/07/21 Liquacel 30 ml PO BID@1200,1700 09/25/21 11/07/21 Magic Cup 1 dose PO W/LUNCH@1200 09/25/21 11/07/21 Fexofenadine/Pseudoephedrine 1 tab PO DAILY PRN 11/07/21 11/07/21 [Genie-D 24 Hour Tablet] Insulin Glargine [Lantus Vial] 10 unit SQ HS 11/07/21 11/07/21 Sevelamer [Renvela] 800 mg PO AC-TID 11/07/21 11/07/21 Allergies Allergy/AdvReac Type Severity Reaction Status Date / Time aspirin [From Anacin] Allergy Rash/Hives Verified 11/07/21 07:19 (Dulce brand ok) Sulfa (Sulfonamide AdvReac Kidneys Verified 11/07/21 07:19 Antibiotics) sulfamethoxazole AdvReac affects Verified 11/07/21 07:19 [From Bactrim] kidneys trimethoprim [From Bactrim] AdvReac Kidneys Verified 11/07/21 07:19 Review of Systems ROS Statement: Those systems with pertinent positive or pertinent negative responses have been documented in the HPI. ROS Other: All systems not noted in ROS Statement are negative. Past Medical History Past Medical History: Heart Failure, COPD, Diabetes Mellitus, Hyperlipidemia, Hypertension, Osteoarthritis (OA), Pneumonia, Renal Disease, Sleep Apnea/CPAP /BIPAP, Vascular Disorder Additional Past Medical History / Comment(s): IDDM type II, 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, chronic venous ulcer left anterior lower leg, sepsis from L leg wound, chronic anemia, hyperkalemia, CKD stage IV, UTIs, incontinence, DELVIN no longer using Cpap and is now on oxygen at 4l/nc atc, possible starting of dementia, confusion at times at night, bilateral lower leg varicosities, umbilical hernia, past duodenal ulcer with repair, Hpylori, wheelchair bound, states pt may have skin issue on his buttocks. 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 Past Anesthesia/Blood Transfusion Reactions: No Reported Reaction, Motion Sickness Date of Last Stent Placement:: 10/2015 Past Psychological History: No Psychological Hx Reported Smoking Status: Never smoker Past Alcohol Use History: None Reported Past Drug Use History: None Reported - Past Family History Father Family Medical History: COPD Additional Family Medical History / Comment(s): AT AGE 64- EMPHYSEMA(SMOKER) Mother Family Medical History: Diabetes Mellitus, Hypertension Additional Family Medical History / Comment(s): LUPUS, LEG AMPUTATED. MOM IN HER 60'S General Exam Limitations: no limitations General appearance: alert, in no apparent distress Head exam: Present: atraumatic, normocephalic, normal inspection Eye exam: Present: normal appearance, PERRL, EOMI. Absent: scleral icterus, conjunctival injection, periorbital swelling ENT exam: Present: normal exam, normal oropharynx Neck exam: Present: normal inspection, full ROM. Absent: tenderness Respiratory exam: Present: normal lung sounds bilaterally. Absent: respiratory distress, wheezes, rales, rhonchi, stridor, chest wall tenderness, accessory muscle use, decreased breath sounds Cardiovascular Exam: Present: regular rate, normal rhythm, normal heart sounds. Absent: systolic murmur, diastolic murmur, rubs, gallop, clicks GI/Abdominal exam: Present: soft, normal bowel sounds. Absent: distended, tenderness, guarding, rebound, rigid Neurological exam: Present: alert, oriented X3, CN II-XII intact Psychiatric exam: Present: normal affect, normal mood Skin exam: Present: warm, dry, intact, normal color. Absent: rash Course Vital Signs 11/26/21 11/26/21 13:12 14:16 Temperature 98.6 F 98.0 F Pulse Rate 97 94 Respiratory 22 18 Rate Blood Pressure 117/56 106/57 O2 Sat by Pulse 100 100 Oximetry Medical Decision Making - Medical Decision Making This is a 71-year-old male with concern for foreign body in the throat. Thorough history and examination were performed. Patient feels like he has chicken stuck in his throat from lunch. Is able to swallow water and secretions. No shortness of breath. Lungs are clear to auscultation bilaterally. Chest x-ray was obtained which shows no acute process with no concern for aspiration. Patient given soda in the emergency department. I personally watched patient take numerous gulps over the soda. He had no trouble swallowing or keeping the soda down. He will be discharged back to his nursing facility. He is instructed to follow-up with his primary care provider. Return parameters discussed. Patient verbalizes understanding and is agreeable to this plan. Dr. Godinez is my attending. - Lab Data Result diagrams: 11/26/21 13:46 11/26/21 13:46 Lab Results 11/26/21 11/26/21 Range/Units 13:46 13:46 WBC 12.8 H (3.8-10.6) k/uL RBC 3.17 L (4.30-5.90) m/uL Hgb 9.6 L (13.0-17.5) gm/dL Hct 30.2 L (39.0-53.0) % MCV 95.2 (80.0-100.0) fL MCH 30.3 (25.0-35.0) pg MCHC 31.8 (31.0-37.0) g/dL RDW 15.5 (11.5-15.5) % Plt Count 431 (150-450) k/uL MPV 7.1 Neutrophils % 79 % Lymphocytes % 11 % Monocytes % 7 % Eosinophils % 1 % Basophils % 1 % Neutrophils # 10.1 H (1.3-7.7) k/uL Lymphocytes # 1.4 (1.0-4.8) k/uL Monocytes # 0.9 (0-1.0) k/uL Eosinophils # 0.2 (0-0.7) k/uL Basophils # 0.1 (0-0.2) k/uL Sodium 135 L (137-145) mmol/L Potassium 4.3 (3.5-5.1) mmol/L Chloride 96 L (98-107) mmol/L Carbon Dioxide 28 (22-30) mmol/L Anion Gap 11 mmol/L BUN 55 H (9-20) mg/dL Creatinine 4.81 H (0.66-1.25) mg/dL Est GFR (CKD-EPI)AfAm 13 (>60 ml/min/1.73 sqM) Est GFR (CKD-EPI)NonAf 11 (>60 ml/min/1.73 sqM) Glucose 161 H (74-99) mg/dL Calcium 9.3 (8.4-10.2) mg/dL Total Bilirubin 0.3 (0.2-1.3) mg/dL AST 19 (17-59) U/L ALT 13 (4-49) U/L Alkaline Phosphatase 96 (38-126) U/L Total Protein 6.5 (6.3-8.2) g/dL Albumin 3.5 (3.5-5.0) g/dL Disposition Clinical Impression: Throat discomfort Disposition: HOME SELF-CARE Condition: Good Instructions (If sedation given, give patient instructions): Dysphagia (ED) Additional Instructions: Follow-up with primary care provider in one to 2 days. Return to the emergency department if you experience new, concerning, or worsening symptoms. Is patient prescribed a controlled substance at d/c from ED?: No Referrals: Chance Flowers MD [Primary Care Provider] - 1-2 days Time of Disposition: 14:25
[2021-11-26 14:45] VITALS: BP 106/57; PULSE 94; RESP 18; TEMP 98
== END 2021-11-26 14:49 | disposition home or self-care (01) ==
LOC: EC 13:06
DX: R09.89 Other specified symptoms and signs involving the circulatory and respiratory systems (principal); E11.22 Type 2 diabetes mellitus with diabetic chronic kidney disease; I13.0 Hypertensive heart and chronic kidney disease with heart failure and stage 1 through stage 4 chronic kidney disease, or unspecified chronic kidney disease; I50.9 Heart failure, unspecified; N18.4 Chronic kidney disease, stage 4 (severe); E11.40 Type 2 diabetes mellitus with diabetic neuropathy, unspecified; J44.9 Chronic obstructive pulmonary disease, unspecified; M19.90 Unspecified osteoarthritis, unspecified site; E78.5 Hyperlipidemia, unspecified; Z79.4 Long term (current) use of insulin; Z79.899 Other long term (current) drug therapy
CPT/HCPCS: 36415; 71046; 80053; 85025; 99284

== ENCOUNTER → 2022-01-14 | Outpatient (CLI) | payer MEDICARE, BC ==
--- NOTE | 2022-01-14 09:11 | CT ---
EXAMINATION TYPE: CT brain wo con DATE OF EXAM: 01/14/2022 COMPARISON: 01/02/2021 HISTORY: MUSCLE WEAKNESS, INTRACTABLE HICCUPS. CT DLP: 1047.[address] of the brain was performed. The ventricles, basal cisterns and sulci overlying the cerebral convexities demonstrate mild enlargem ent. There is no evidence for intracranial hemorrhage or sulcal effacement. There is decreased attenuation about the periventricular white matter and deep white matter of both c erebral hemispheres, compatible with chronic small vessel ischemia. Differential diagnosis does inclu de demyelination. No mass effects are seen.No midline shift. Osseous calvarium is intact. If symptoms persist consider MRI. IMPRESSION: 1. Age related atrophic and chronic small vessel ischemic change without acute intracranial process s een at this time.
== END | disposition home or self-care (01) ==
LOC: RADCTMAIN 08:21
PROVIDERS: ATTEND Psychiatry & Neurology Neurology
DX: G31.9 Degenerative disease of nervous system, unspecified (principal); I67.82 Cerebral ischemia
CPT/HCPCS: 70450

== ENCOUNTER 2022-02-27 22:25 | Inpatient (IN) | payer MEDICARE, BC ==
[2022-02-27] MEDS ORDERED: ACETAMINOPHEN TAB 325 MG TAB PO STA (23:13)
--- NOTE | 2022-02-27 23:37 | ED ---
Fever HPI - General Chief Complaint: Fever Stated Complaint: infection Time Seen by Provider: 02/27/22 22:57 Source: EMS Mode of arrival: EMS - History of Present Illness Initial Comments: This patient is a 71-year-old man with history of end-stage renal disease on hemodialysis, who presents to have further evaluation and treatment for fever. The patient had been in usual state of health and then this evening had an episode of vomiting. He was checked and found to have fever to 103.4. The patient was given Tylenol. The fever did respond to that. They contacted the shelter physician who directed to have him sent to emergency department. When I interview the patient he denies symptoms of infection. No congestion or sore throat. He denies cough, but did have occasional cough during the exam. No chest pain or dyspnea. No change in bowel movements. MD Complaint: fever -: hour(s) Temperature Source: oral Associated Symptoms: chills, vomiting Treatments Prior to Arrival: Acetaminophen - Related Data Home Medications Medication Instructions Recorded Confirmed allopurinoL [Zyloprim] 100 mg PO DAILY@0800 04/22/15 02/27/22 Atorvastatin [Lipitor] 20 mg PO HS 12/09/19 02/27/22 bisacodyL [Dulcolax] 10 mg RECTAL DAILY PRN 09/07/20 02/27/22 Ipratropium-Albuterol Nebulize 3 ml INHALATION RT-Q4H PRN 11/06/20 02/27/22 [Duoneb 0.5 mg-3 mg/3 ml Soln] Isosorbide Mononitrate ER [Imdur] 30 mg PO DAILY@79911/13/20 02/27/22 Metoclopramide HCl [Reglan] 5 mg PO TID PRN 07/10/21 02/27/22 Potassium Chloride ER [K-Dur 20] 20 meq PO BID 07/10/21 02/27/22 Renal Vitamin Tablet 0.8mg 1 tab PO DAILY@0800 07/10/21 02/27/22 Fexofenadine/Pseudoephedrine 1 tab PO DAILY PRN 11/07/21 02/27/22 [Genie-D 24 Hour Tablet] Insulin Glargine [Lantus Vial] 10 unit SQ HS 11/07/21 02/27/22 Acetaminophen Tab [Tylenol] 650 mg PO Q4H PRN 02/27/22 02/27/22 Sevelamer Carbonate 1 packet PO DAILY 02/27/22 02/27/22 chlorproMAZINE HCL 25 mg PO DAILY PRN 02/27/22 02/27/22 Previous Rx's Medication Instructions Recorded amLODIPine [Norvasc] 5 mg PO BID 30 Days #60 tab 03/02/22 Allergies Allergy/AdvReac Type Severity Reaction Status Date / Time aspirin [From Anacin] Allergy Rash/Hives Verified 02/27/22 23:35 (Dulce brand ok) Sulfa (Sulfonamide AdvReac Kidneys Verified 02/27/22 23:35 Antibiotics) sulfamethoxazole AdvReac affects Verified 02/27/22 23:35 [From Bactrim] kidneys trimethoprim [From Bactrim] AdvReac Kidneys Verified 02/27/22 23:35 Review of Systems ROS Statement: Those systems with pertinent positive or pertinent negative responses have been documented in the HPI. ROS Other: All systems not noted in ROS Statement are negative. Constitutional: Reports: fever ENT: Denies: throat pain Respiratory: Denies: cough, dyspnea Cardiovascular: Reports: edema (Chronic). Denies: chest pain, palpitations Gastrointestinal: Denies: abdominal pain, vomiting, diarrhea Genitourinary: Reports: other (Anuric) Musculoskeletal: Denies: back pain Skin: Denies: rash Neurological: Denies: headache, weakness Past Medical History Past Medical History: Heart Failure, COPD, Diabetes Mellitus, Hyperlipidemia, Hypertension, Osteoarthritis (OA), Pneumonia, Renal Disease, Sleep Apnea/CPAP/BIPAP, Vascular Disorder Additional Past Medical History / Comment(s): IDDM type II, 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, chronic venous ulcer left anterior lower leg, sepsis from L leg wound, chronic anemia, hyperkalemia, CKD stage IV, UTIs, incontinence, DELVIN no longer using Cpap and is now on oxygen at 4l/nc atc, possible starting of dementia, confusion at times at night, bilateral lower leg varicosities, umbilical hernia, past duodenal ulcer with repair, Hpylori, wheelchair bound, states pt may have skin issue on his buttocks. 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 Past Anesthesia/Blood Transfusion Reactions: No Reported Reaction, Motion Sickness Date of Last Stent Placement:: 10/2015 Past Psychological History: No Psychological Hx Reported Smoking Status: Never smoker Past Alcohol Use History: None Reported Past Drug Use History: None Reported - Past Family History Father Family Medical History: COPD Additional Family Medical History / Comment(s): AT AGE 64- EMPHYSEMA(SMOKER) Mother Family Medical History: Diabetes Mellitus, Hypertension Additional Family Medical History / Comment(s): LUPUS, LEG AMPUTATED. MOM IN HER 60'S General Exam General appearance: alert, in no apparent distress Head exam: Present: atraumatic, normocephalic Eye exam: Present: normal appearance. Absent: scleral icterus, conjunctival injection ENT exam: Present: normal oropharynx Respiratory exam: Present: normal lung sounds bilaterally, other (Is a temporary dialysis catheter right chest wall which does not have any associated erythema or tenderness). Absent: respiratory distress, wheezes, rales, rhonchi, stridor Cardiovascular Exam: Present: regular rate, normal rhythm, normal heart sounds. Absent: systolic murmur, diastolic murmur, rubs, gallop GI/Abdominal exam: Present: soft. Absent: distended, tenderness, guarding, rebound, rigid Extremities exam: Present: normal inspection, normal capillary refill. Absent: calf tenderness Back exam: Present: normal inspection Neurological exam: Present: alert Skin exam: Present: warm, dry, intact, normal color. Absent: rash Course Vital Signs 02/27/22 02/28/22 22:36 02:30 Temperature 98.0 F 98.2 F Pulse Rate 77 70 Respiratory 15 18 Rate Blood Pressure 134/60 152/79 O2 Sat by Pulse 100 100 Oximetry Medical Decision Making - Medical Decision Making Patient is 71-year-old man sent from shelter to have evaluation of fever. We will admit pending cultures as there is no definite source for the fever. - Lab Data Result diagrams: 03/02/22 06:14 03/02/22 06:14 Lab Results 02/27/22 02/27/22 02/27/22 Range/Units 23:44 23:44 23:44 WBC 24.8 H (3.8-10.6) k/uL RBC 4.07 L (4.30-5.90) m/uL Hgb 12.4 L (13.0-17.5) gm/dL Hct 38.9 L (39.0-53.0) % MCV 95.5 (80.0-100.0) fL MCH 30.5 (25.0-35.0) pg MCHC 32.0 (31.0-37.0) g/dL RDW 15.3 (11.5-15.5) % Plt Count 255 (150-450) k/uL MPV 7.2 Neutrophils % 88 % Lymphocytes % 6 % Monocytes % 5 % Eosinophils % 1 % Basophils % 0 % Neutrophils # 21.8 H (1.3-7.7) k/uL Lymphocytes # 1.4 (1.0-4.8) k/uL Monocytes # 1.1 H (0-1.0) k/uL Eosinophils # 0.2 (0-0.7) k/uL Basophils # 0.1 (0-0.2) k/uL Sodium 134 L (137-145) mmol/L Potassium 3.9 (3.5-5.1) mmol/L Chloride 95 L (98-107) mmol/L Carbon Dioxide 22 (22-30) mmol/L Anion Gap 17 mmol/L BUN 66 H (9-20) mg/dL Creatinine 5.62 H (0.66-1.25) mg/dL Est GFR (CKD-EPI)AfAm 11 (>60 ml/min/1.73 sqM) Est GFR (CKD-EPI)NonAf 9 (>60 ml/min/1.73 sqM) Glucose 122 H (74-99) mg/dL Plasma Lactic Acid Anthony 1.1 (0.7-2.0) mmol/L Calcium 9.5 (8.4-10.2) mg/dL Total Bilirubin 0.3 (0.2-1.3) mg/dL AST 23 (17-59) U/L ALT 10 (4-49) U/L Alkaline Phosphatase 69 (38-126) U/L Total Protein 6.5 (6.3-8.2) g/dL Albumin 4.0 (3.5-5.0) g/dL Procalcitonin (0.02-0.09) ng/mL Coronavirus (PCR) (Not Detectd) 02/27/22 02/27/22 Range/Units 23:44 23:57 WBC (3.8-10.6) k/uL RBC (4.30-5.90) m/uL Hgb (13.0-17.5) gm/dL Hct (39.0-53.0) % MCV (80.0-100.0) fL MCH (25.0-35.0) pg MCHC (31.0-37.0) g/dL RDW (11.5-15.5) % Plt Count (150-450) k/uL MPV Neutrophils % % Lymphocytes % % Monocytes % % Eosinophils % % Basophils % % Neutrophils # (1.3-7.7) k/uL Lymphocytes # (1.0-4.8) k/uL Monocytes # (0-1.0) k/uL Eosinophils # (0-0.7) k/uL Basophils # (0-0.2) k/uL Sodium (137-145) mmol/L Potassium (3.5-5.1) mmol/L Chloride (98-107) mmol/L Carbon Dioxide (22-30) mmol/L Anion Gap mmol/L BUN (9-20) mg/dL Creatinine (0.66-1.25) mg/dL Est GFR (CKD-EPI)AfAm (>60 ml/min/1.73 sqM) Est GFR (CKD-EPI)NonAf (>60 ml/min/1.73 sqM) Glucose (74-99) mg/dL Plasma Lactic Acid Anthony (0.7-2.0) mmol/L Calcium (8.4-10.2) mg/dL Total Bilirubin (0.2-1.3) mg/dL AST (17-59) U/L ALT (4-49) U/L Alkaline Phosphatase (38-126) U/L Total Protein (6.3-8.2) g/dL Albumin (3.5-5.0) g/dL Procalcitonin 0.91 H (0.02-0.09) ng/mL Coronavirus (PCR) Not Detected (Not Detectd) Disposition Clinical Impression: Fever, End stage renal failure on dialysis Disposition: ADMITTED IP TO THIS HOSP Condition: Fair Is patient prescribed a controlled substance at d/c from ED?: No
[2022-02-27 23:59] LABS: Basophils # (A) 0.1 k/uL (0-0.2); Basophils % (A) 0 %; Eosinophils # (A) 0.2 k/uL (0-0.7); Eosinophils % (A) 1 %; HCT 38.9 % (39.0-53.0); HGB 12.4 gm/dL (13.0-17.5); Lymphocytes # (A) 1.4 k/uL (1.0-4.8); Lymphocytes % (A) 6 %; MCH 30.5 pg (25.0-35.0); MCV 95.5 fL (80.0-100.0); Mean Platelet Volume 7.2; Monocytes # (A) 1.1 k/uL (0-1.0); Monocytes % (A) 5 %; Neutrophils # (A) 21.8 k/uL (1.3-7.7); Neutrophils % (A) 88 %; Platelet Count 255 k/uL (150-450); RBC 4.07 m/uL (4.30-5.90); RDW 15.3 % (11.5-15.5); WBC 24.8 k/uL (3.8-10.6)
[2022-02-28 00:11] LABS: Calcium 9.5 mg/dL (8.4-10.2); Potassium 3.9 mmol/L (3.5-5.1); Total Bilirubin 0.3 mg/dL (0.2-1.3); Total Protein 6.5 g/dL (6.3-8.2)
[2022-02-28] MEDS ORDERED: HYDROcodone/APAP 7.5-325MG 1 EACH TAB PO ONE (02:14)
--- NOTE | 2022-02-28 02:23 | XR ---
EXAMINATION TYPE: XR chest 1V portable DATE OF EXAM: 02/28/2022 COMPARISON: 11/26/2021 HISTORY: Fever TECHNIQUE: Single view FINDINGS: There is no heart failure nor confluent pneumonic infiltrate. Costophrenic angles are clear . There is right-sided central venous catheter with tip in the superior vena cava. No pleural effusio n. There are no hilar masses. The bony thorax is intact. IMPRESSION: No active cardiopulmonary disease. No change.
[2022-02-28] MEDS ORDERED: VANCOMYCIN IV PER PHARMACY 1 EACH MISC MISCELLANE PRN (02:35)
[2022-02-28] MEDS ORDERED: ACETAMINOPHEN TAB 325 MG TAB PO PRN (02:37)
[2022-02-28] MEDS ORDERED: HYDROcodone/APAP 5-325MG 1 EACH TAB PO PRN (02:37)
[2022-02-28] MEDS ORDERED: NALOXONE 0.4 MG/ML 1 ML VIAL IV PRN (02:37)
[2022-02-28] MEDS ORDERED: VANCOMYCIN 1,500 MG in SODIUM CHLORIDE 0.9% 250 ML IVPB STA (02:39)
[2022-02-28] MEDS ORDERED: METOCLOPRAMIDE 5 MG TAB PO PRN (02:40)
[2022-02-28] MEDS ORDERED: IPRATROPIUM-ALBUTEROL 3 ML NEB INHALATION PRN (02:40)
[2022-02-28] MEDS ORDERED: bisacodyL 10 MG SUPP RECTAL PRN (02:40)
[2022-02-28] MEDS: FOLIC ACID-VIT B COMPLEX-VIT C 1 CAP PO SCH (08:38)
[2022-02-28] MEDS: SEVELAMER 800 MG TAB PO SCH (08:38)
[2022-02-28] MEDS: allopurinoL 100 MG TAB PO SCH (08:39)
[2022-02-28] MEDS: amLODIPine 5 MG TAB PO SCH (08:39)
[2022-02-28] MEDS: ISOSORBIDE MONONITRATE ER 30 MG TAB.ER.24H PO SCH (08:39)
[2022-02-28] MEDS ORDERED: chlorproMAZINE 25 MG TAB PO PRN (09:58)
--- NOTE | 2022-02-28 10:40 | P.NPCON ---
History of Present Illness - Reason for Consult end stage renal disease - History of Present Illness Reason for consultation: End-stage renal disease History of present illness: Patient is a 71-year-old male seen in consultation for end-stage renal disease. He is maintained on hemodialysis on Wednesday schedule via left upper extremity AV fistula. He also has a right chest permacath which has not been used recently. The fistula is being used without any issues. [facility] due to temperature of 103F. Patient denies any chest pain or shortness of breath. He denies cough. No diarrhea. He did vomit prior to admission. He is currently having breakfast and has no active complaints. Blood pressure is stable. He has been afebrile overnight and this morning. Cultures are pending. Vital signs are stable. General: Awake. No acute distress. HEENT: Head exam is unremarkable. On nasal cannula. LUNGS: Breath sounds decreased. HEART: Rate and Rhythm are regular. ABDOMEN: Soft, no distention. EXTREMITITES: No edema. Chronic changes noted. Past Medical History Past Medical History: Heart Failure, COPD, Diabetes Mellitus, Hyperlipidemia, Hypertension, Osteoarthritis (OA), Pneumonia, Renal Disease, Sleep Apnea/CPAP/BIPAP, Vascular Disorder Additional Past Medical History / Comment(s): IDDM type II, 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, chronic venous ulcer left anterior lower leg, sepsis from L leg wound, chronic anemia, hyperkalemia, CKD stage IV, UTIs, incontinence, DELVIN no longer using Cpap and is now on oxygen at 4l/nc atc, possible starting of dementia, confusion at times at night, bilateral lower leg varicosities, umbilical hernia, past duodenal ulcer with repair, Hpylori, wheelchair bound, states pt may have skin issue on his buttocks. 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 Past Anesthesia/Blood Transfusion Reactions: No Reported Reaction, Motion Sickness Date of Last Stent Placement:: 10/2015 Past Psychological History: No Psychological Hx Reported Additional Psychological History / Comment(s): Pt is a resident at [facility]. He is wheelchair bound. Smoking Status: Never smoker Past Alcohol Use History: None Reported Additional Past Alcohol Use History / Comment(s): Patient has been a lifelong nonsmoker. He denies any medical marijuana, marijuana, street drug use. He denies any alcohol abuse. Past Drug Use History: None Reported - Past Family History Father Family Medical History: COPD Additional Family Medical History / Comment(s): AT AGE 64- EMPHYSEMA(SMOKER) Mother Family Medical History: Diabetes Mellitus, Hypertension Additional Family Medical History / Comment(s): LUPUS, LEG AMPUTATED. MOM IN HER 60'S Medications and Allergies Home Medications Medication Instructions Recorded Confirmed Type allopurinoL [Zyloprim] 100 mg PO DAILY@0800 04/22/15 02/27/22 History Atorvastatin [Lipitor] 20 mg PO HS 12/09/19 02/27/22 History bisacodyL [Dulcolax] 10 mg RECTAL DAILY PRN 09/07/20 02/27/22 History Ipratropium-Albuterol Nebulize 3 ml INHALATION RT-Q4H PRN 11/06/20 02/27/22 History [Duoneb 0.5 mg-3 mg/3 ml Soln] Isosorbide Mononitrate ER [Imdur] 30 mg PO DAILY@0800 11/13/20 02/27/22 History amLODIPine [Norvasc] 5 mg PO DAILY@0800 11/13/20 02/27/22 History Metoclopramide HCl [Reglan] 5 mg PO TID PRN 07/10/21 02/27/22 History Potassium Chloride ER [K-Dur 20] 20 meq PO BID 07/10/21 02/27/22 History Renal Vitamin Tablet 0.8mg 1 tab PO DAILY@0800 07/10/21 02/27/22 History Fexofenadine/Pseudoephedrine 1 tab PO DAILY PRN 11/07/21 02/27/22 History [Genie-D 24 Hour Tablet] Insulin Glargine [Lantus Vial] 10 unit SQ HS 11/07/21 02/27/22 History Acetaminophen Tab [Tylenol] 650 mg PO Q4H PRN 02/27/22 02/27/22 History Sevelamer Carbonate 1 packet PO DAILY 02/27/22 02/27/22 History chlorproMAZINE HCL 25 mg PO DAILY PRN 02/27/22 02/27/22 History Allergies Allergy/AdvReac Type Severity Reaction Status Date / Time aspirin [From Anacin] Allergy Rash/Hives Verified 02/27/22 23:35 (Dulce brand ok) Sulfa (Sulfonamide AdvReac Kidneys Verified 02/27/22 23:35 Antibiotics) sulfamethoxazole AdvReac affects Verified 02/27/22 23:35 [From Bactrim] kidneys trimethoprim [From Bactrim] AdvReac Kidneys Verified 02/27/22 23:35 Physical Exam Vitals: Vital Signs Temp Pulse Pulse Resp BP BP Pulse Ox 02/28/22 07:00 97.8 F 63 18 137/56 100 02/28/22 03:37 98.2 F 61 17 120/57 100 02/28/22 02:30 98.2 F 70 18 152/79 100 02/27/22 22:36 98.0 F 77 15 134/60 100 Intake and Output 02/27/22 02/28/22 02/28/22 22:59 06:59 14:59 Other: # Voids 0 Weight 92.986 kg 92.986 kg Results - Lab Results Most recent lab results Calcium 9.5 mg/dL (8.4-10.2) 02/27/22 23:44 02/27/22 23:44 02/27/22 23:44 Assessment and Plan Plan: Assessment: 1. End-stage renal disease maintained on hemodialysis on Wednesday schedule via left upper extremity AV fistula. Also has a right chest permacath which has not been used last few treatments. 2. Fever. Unclear source. Possibly permacath infection. 3. Hypertension with chronic kidney disease. Controlled. 4. Diabetes mellitus. 5. Chronic kidney disease mineral bone disease maintained on Renvela. Plan: Hemodialysis today - will use AV fistula with small needles. Check cultures from the permacath and then remove the permacath. Vascular surgery consulted. Antibiotics per infectious disease. Follow-up cultures. Monitor vancomycin levels. Dose to be adjusted for renal function. Thank you for the consultation. I will continue to follow the patient with you during his hospital stay.
[2022-02-28] MEDS ORDERED: LIDOCAINE 1% INJ 10MG/ML (20 ML MDV) SQ ONE (10:51)
--- NOTE | 2022-02-28 10:54 | P.HPIM ---
History of Present Illness Patient was on 71-year-old male with the history of end-stage renal disease on hemodialysis Wednesday, , Wednesday with a left upper extremity AV fistula and also has a right chest permacath. Patient had this permacath for about a year. They recently started using his left upper extremity AV fistula. Patient had fever of 103, patient was subsequently sent in from hemodialysis unit. Patient denied any cough the doesn't have any other source of infection patient doesn't urinate much chest x-ray did not show any pneumonia. Blood cultures were ordered and are pending. Patient has leukocytosis with a white blood cell count of 24,800 REVIEW OF SYSTEMS: CONSTITUTIONAL: No fever, no malaise, no fatigue. HEENT: No recent visual problems or hearing problems. Denied any sore throat. CARDIOVASCULAR: No chest pain, orthopnea, PND, no palpitations, no syncope. PULMONARY: No shortness of breath, no cough, no hemoptysis. GASTROINTESTINAL: No diarrhea, no nausea, no vomiting, no abdominal pain. NEUROLOGICAL: No headaches, no weakness, no numbness. HEMATOLOGICAL: Denies any bleeding or petechiae. GENITOURINARY: Denies any burning micturition, frequency, or urgency. MUSCULOSKELETAL/RHEUMATOLOGICAL: Denies any joint pain, swelling, or any muscle pain. ENDOCRINE: Denies any polyuria or polydipsia. The rest of the 14-point review of systems is negative. PHYSICAL EXAMINATION: GENERAL: The patient is alert and oriented x3, not in any acute distress. Well developed, well nourished. HEENT: Pupils are round and equally reacting to light. EOMI. No scleral icterus. No conjunctival pallor. Normocephalic, atraumatic. No pharyngeal erythema. No thyromegaly. CARDIOVASCULAR: S1 and S2 present. No murmurs, rubs, or gallops. PULMONARY: Chest is clear to auscultation, no wheezing or crackles. ABDOMEN: Soft, nontender, nondistended, normoactive bowel sounds. No palpable organomegaly. MUSCULOSKELETAL: No joint swelling or deformity. EXTREMITIES: No cyanosis, clubbing, or pedal edema. NEUROLOGICAL: Gross neurological examination did not reveal any focal deficits. SKIN: No rashes. Assessment and plan -Sepsis: Possible source is infected permacath, possible surgery was consulted for removal of this permacath infectious disease evaluated the patient patient is on IV vancomycin. -End-stage renal disease hemodialysis dependent patient will undergo hemodialysis today nephrology evaluated the patient -Hypertension next and-COPD without any acute exacerbation -Hyperlipidemia -Sleep apnea, obesity uses CPAP machine at home which will be continued -Peripheral vascular disease next and-type 2 diabetes mellitus for which patient is on the Levemir which will be resumed with sliding scale For above-mentioned chronic medical problems patient will be resumed on home medications. DVT prophylaxis: Subcutaneous heparin Past Medical History Past Medical History: Heart Failure, COPD, Diabetes Mellitus, Hyperlipidemia, Hypertension, Osteoarthritis (OA), Pneumonia, Renal Disease, Sleep Apnea/CPAP/BIPAP, Vascular Disorder Additional Past Medical History / Comment(s): IDDM type II, 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, chronic venous ulcer left anterior lower leg, sepsis from L leg wound, chronic anemia, hyperkalemia, CKD stage IV, UTIs, incontinence, DELVIN no longer using Cpap and is now on oxygen at 4l/nc atc, possible starting of dementia, confusion at times at night, bilateral lower leg varicosities, umbilical hernia, past duodenal ulcer with repair, Hpylori, wheelchair bound, states pt may have skin issue on his buttocks. 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 Past Anesthesia/Blood Transfusion Reactions: No Reported Reaction, Motion Sickness Date of Last Stent Placement:: 10/2015 Past Psychological History: No Psychological Hx Reported Additional Psychological History / Comment(s): Pt is a resident at [facility]. He is wheelchair bound. Smoking Status: Never smoker Past Alcohol Use History: None Reported Additional Past Alcohol Use History / Comment(s): Patient has been a lifelong nonsmoker. He denies any medical marijuana, marijuana, street drug use. He den ies any alcohol abuse. Past Drug Use History: None Reported - Past Family History Father Family Medical History: COPD Additional Family Medical History / Comment(s): AT AGE 64- EMPHYSEMA(HIMANSHU CASAS) Mother Family Medical History: Diabetes Mellitus, Hypertension Additional Family Medical History / Comment(s): LUPUS, LEG AMPUTATED. MOM IN HER 60'S Medications and Allergies Home Medications Medication Instructions Recorded Confirmed Type allopurinoL [Zyloprim] 100 mg PO DAILY@0800 04/22/15 02/27/22 History Atorvastatin [Lipitor] 20 mg PO HS 12/09/19 02/27/22 History bisacodyL [Dulcolax] 10 mg RECTAL DAILY PRN 09/07/20 02/27/22 History Ipratropium-Albuterol Nebulize 3 ml INHALATION RT-Q4H PRN 11/06/20 02/27/22 History [Duoneb 0.5 mg-3 mg/3 ml Soln] Isosorbide Mononitrate ER [Imdur] 30 mg PO DAILY@0800 11/13/20 02/27/22 History amLODIPine [Norvasc] 5 mg PO DAILY@0800 11/13/20 02/27/22 History Metoclopramide HCl [Reglan] 5 mg PO TID PRN 07/10/21 02/27/22 History Potassium Chloride ER [K-Dur 20] 20 meq PO BID 07/10/21 02/27/22 History Renal Vitamin Tablet 0.8mg 1 tab PO DAILY@0800 07/10/21 02/27/22 History Fexofenadine/Pseudoephedrine 1 tab PO DAILY PRN 11/07/21 02/27/22 History [Genie-D 24 Hour Tablet] Insulin Glargine [Lantus Vial] 10 unit SQ HS 11/07/21 02/27/22 History Acetaminophen Tab [Tylenol] 650 mg PO Q4H PRN 02/27/22 02/27/22 History Sevelamer Carbonate 1 packet PO DAILY 02/27/22 02/27/22 History chlorproMAZINE HCL 25 mg PO DAILY PRN 02/27/22 02/27/22 History Allergies Allergy/AdvReac Type Severity Reaction Status Date / Time aspirin [From Anacin] Allergy Rash/Hives Verified 02/27/22 23:35 (Dulce brand ok) Sulfa (Sulfonamide AdvReac Kidneys Verified 02/27/22 23:35 Antibiotics) sulfamethoxazole AdvReac affects Verified 02/27/22 23:35 [From Bactrim] kidneys trimethoprim [From Bactrim] AdvReac Kidneys Verified 02/27/22 23:35 Physical Exam Vitals: Vital Signs Temp Pulse Pulse Resp BP BP Pulse Ox 02/28/22 07:00 97.8 F 63 18 137/56 100 02/28/22 03:37 98.2 F 61 17 120/57 100 02/28/22 02:30 98.2 F 70 18 152/79 100 02/27/22 22:36 98.0 F 77 15 134/60 100 Intake and Output 02/27/22 02/28/22 02/28/22 22:59 06:59 14:59 Other: # Voids 0 Weight 92.986 kg 92.986 kg Results CBC & Chem 7: 02/27/22 23:44 02/27/22 23:44 Labs: Abnormal Lab Results - Last 24 Hours (Table) 02/27/22 02/27/22 Range/Units 23:44 23:44 WBC 24.8 H (3.8-10.6) k/uL RBC 4.07 L (4.30-5.90) m/uL Hgb 12.4 L (13.0-17.5) gm/dL Hct 38.9 L (39.0-53.0) % Neutrophils # 21.8 H (1.3-7.7) k/uL Monocytes # 1.1 H (0-1.0) k/uL Sodium 134 L (137-145) mmol/L Chloride 95 L (98-107) mmol/L BUN 66 H (9-20) mg/dL Creatinine 5.62 H (0.66-1.25) mg/dL Glucose 122 H (74-99) mg/dL Thrombosis Risk Factor Assmnt - Choose All That Apply Each Factor Represents 1 point: Abnormal pulmonary function (COPD), Obesity (BMI >25) Each Risk Factor Represents 2 Points: Age 61-74 years Other congenital or acquired thrombophilia - If yes, enter type in comment: No Thrombosis Risk Factor Assessment Total Risk Factor Score: 4 Thrombosis Risk Factor Assessment Level: Moderate Risk
--- NOTE | 2022-02-28 11:42 | P.GSCN ---
History of Present Illness Consult date: 02/28/22 Reason for Consult: Infected dialysis catheter. History of present illness: She is a 71-year-old male who has a long history of renal failure which is dialysis dependent. Approximately 1 year ago he had a tunneled hemodialysis catheter placed. Subsequently he has had a fistula created in the left femoral region which is functional. He presented to the hospital with a complaint of chills and fevers. He was found to have a significant leukocytosis and concern is given for catheter infection. Request has been made for removal of catheter. Past Medical History Past Medical History: Heart Failure, COPD, Diabetes Mellitus, Hyperlipidemia, Hypertension, Osteoarthritis (OA), Pneumonia, Renal Disease, Sleep Apnea/CPAP/BIPAP, Vascular Disorder Additional Past Medical History / Comment(s): IDDM type II, 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, chronic venous ulcer left anterior lower leg, sepsis from L leg wound, chronic anemia, hyperkalemia, CKD stage IV, UTIs, incontinence, DELVIN no longer using Cpap and is now on oxygen at 4l/nc atc, possible starting of dementia, confusion at times at night, bilateral lower leg varicosities, umbilical hernia, past duodenal ulcer with repair, Hpylori, wheelchair bound, states pt may have skin issue on his buttocks. 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 Past Anesthesia/Blood Transfusion Reactions: No Reported Reaction, Motion Sickness Date of Last Stent Placement:: 10/2015 Past Psychological History: No Psychological Hx Reported Additional Psychological History / Comment(s): Pt is a resident at [facility]. He is wheelchair bound. Smoking Status: Never smoker Past Alcohol Use History: None Reported Additional Past Alcohol Use History / Comment(s): Patient has been a lifelong nonsmoker. He denies any medical marijuana, marijuana, street drug use. He denies any alcohol abuse. Past Drug Use History: None Reported - Past Family History Father Family Medical History: COPD Additional Family Medical History / Comment(s): AT AGE 64- EMPHYSEMA(SMOKER) Mother Family Medical History: Diabetes Mellitus, Hypertension Additional Family Medical History / Comment(s): LUPUS, LEG AMPUTATED. MOM IN HER 60'S Medications and Allergies Home Medications Medication Instructions Recorded Confirmed Type allopurinoL [Zyloprim] 100 mg PO DAILY@0800 04/22/15 02/27/22 History Atorvastatin [Lipitor] 20 mg PO HS 12/09/19 02/27/22 History bisacodyL [Dulcolax] 10 mg RECTAL DAILY PRN 09/07/20 02/27/22 History Ipratropium-Albuterol Nebulize 3 ml INHALATION RT-Q4H PRN 11/06/20 02/27/22 History [Duoneb 0.5 mg-3 mg/3 ml Soln] Isosorbide Mononitrate ER [Imdur] 30 mg PO DAILY@0800 11/13/20 02/27/22 History amLODIPine [Norvasc] 5 mg PO DAILY@0800 11/13/20 02/27/22 History Metoclopramide HCl [Reglan] 5 mg PO TID PRN 07/10/21 02/27/22 History Potassium Chloride ER [K-Dur 20] 20 meq PO BID 07/10/21 02/27/22 History Renal Vitamin Tablet 0.8mg 1 tab PO DAILY@0800 07/10/21 02/27/22 History Fexofenadine/Pseudoephedrine 1 tab PO DAILY PRN 11/07/21 02/27/22 History [Genie-D 24 Hour Tablet] Insulin Glargine [Lantus Vial] 10 unit SQ HS 11/07/21 02/27/22 History Acetaminophen Tab [Tylenol] 650 mg PO Q4H PRN 02/27/22 02/27/22 History Sevelamer Carbonate 1 packet PO DAILY 02/27/22 02/27/22 History chlorproMAZINE HCL 25 mg PO DAILY PRN 02/27/22 02/27/22 History Allergies Allergy/AdvReac Type Severity Reaction Status Date / Time aspirin [From Anacin] Allergy Rash/Hives Verified 02/27/22 23:35 (Dulce brand ok) Sulfa (Sulfonamide AdvReac Kidneys Verified 02/27/22 23:35 Antibiotics) sulfamethoxazole AdvReac affects Verified 02/27/22 23:35 [From Bactrim] kidneys trimethoprim [From Bactrim] AdvReac Kidneys Verified 02/27/22 23:35 Surgical - Exam Osteopathic Statement: *. No significant issues noted on an osteopathic structural exam other than those noted in the History and Physical/Consult. Vital Signs Temp Pulse Resp BP Pulse Ox 98.0 F 77 15 134/60 100 02/27/22 22:36 02/27/22 22:36 02/27/22 22:36 02/27/22 22:36 02/27/22 22:36 Results - Labs 02/27/22 23:44 02/27/22 23:44 Abnormal Lab Results - Last 24 Hours (Table) 02/27/22 02/27/22 Range/Units 23:44 23:44 WBC 24.8 H (3.8-10.6) k/uL RBC 4.07 L (4.30-5.90) m/uL Hgb 12.4 L (13.0-17.5) gm/dL Hct 38.9 L (39.0-53.0) % Neutrophils # 21.8 H (1.3-7.7) k/uL Monocytes # 1.1 H (0-1.0) k/uL Sodium 134 L (137-145) mmol/L Chloride 95 L (98-107) mmol/L BUN 66 H (9-20) mg/dL Creatinine 5.62 H (0.66-1.25) mg/dL Glucose 122 H (74-99) mg/dL Diabetes panel 02/27/22 Range/Units 23:44 Sodium 134 L (137-145) mmol/L Potassium 3.9 (3.5-5.1) mmol/L Chloride 95 L (98-107) mmol/L Carbon Dioxide 22 (22-30) mmol/L BUN 66 H (9-20) mg/dL Creatinine 5.62 H (0.66-1.25) mg/dL Glucose 122 H (74-99) mg/dL Calcium 9.5 (8.4-10.2) mg/dL AST 23 (17-59) U/L ALT 10 (4-49) U/L Alkaline Phosphatase 69 (38-126) U/L Total Protein 6.5 (6.3-8.2) g/dL Albumin 4.0 (3.5-5.0) g/dL Calcium panel 02/27/22 Range/Units 23:44 Calcium 9.5 (8.4-10.2) mg/dL Albumin 4.0 (3.5-5.0) g/dL Pituitary panel 02/27/22 Range/Units 23:44 Sodium 134 L (137-145) mmol/L Potassium 3.9 (3.5-5.1) mmol/L Chloride 95 L (98-107) mmol/L Carbon Dioxide 22 (22-30) mmol/L BUN 66 H (9-20) mg/dL Creatinine 5.62 H (0.66-1.25) mg/dL Glucose 122 H (74-99) mg/dL Calcium 9.5 (8.4-10.2) mg/dL Adrenal panel 02/27/22 Range/Units 23:44 Sodium 134 L (137-145) mmol/L Potassium 3.9 (3.5-5.1) mmol/L Chloride 95 L (98-107) mmol/L Carbon Dioxide 22 (22-30) mmol/L BUN 66 H (9-20) mg/dL Creatinine 5.62 H (0.66-1.25) mg/dL Glucose 122 H (74-99) mg/dL Calcium 9.5 (8.4-10.2) mg/dL Total Bilirubin 0.3 (0.2-1.3) mg/dL AST 23 (17-59) U/L ALT 10 (4-49) U/L Alkaline Phosphatase 69 (38-126) U/L Total Protein 6.5 (6.3-8.2) g/dL Albumin 4.0 (3.5-5.0) g/dL Assessment and Plan Assessment: Possibly infected tunneled hemodialysis catheter Plan: Removal of tunneled hemodialysis catheter. The procedure, risk and benefits were discussed with the patient. Patient wishes to proceed. Consent form signed. Time with Patient: Less than 30
--- NOTE | 2022-02-28 11:46 | P.OP ---
Date of Procedure: 02/28/22 Preoperative Diagnosis: Suspected infected hemodialysis catheter. Postoperative Diagnosis: Same. Procedure(s) Performed: Removal of tunneled hemodialysis catheter. Anesthesia: local Surgeon: Lonnie Lopez Estimated Blood Loss (ml): 5 Pathology: other (Culture of the catheter tip) Condition: stable Disposition: no change Indications for Procedure: Patient is a 71-year-old male who is suffering from dialysis dependent renal failure. He does have a tunneled hemodialysis catheter placed via the right internal jugular vein approach. The patient presented in a septic-like syndrome and it is suspected that catheter is the source of this infectious issue. Patient does have a functional AV fistula and request has been made for removal of dialysis catheter. Description of Procedure: Patient was placed supine in his bed. The right supraclavicular and anterior chest areas were sterilely prepped and draped in usual manner. 1% Xylocaine was utilized for local anesthesia tissues overlying the cuff portion of the catheter. Through this anesthetized area skin incision was made and carried down to the cuff. The catheter was transected. The soft tissue was dissected off the cuff and the catheter removed. The tip of the catheter was sent for culture. Pressure was held at the surgical site until all evidence of bleeding ceased. The wound was closed with 4-0 Monocryl placed in the intradermal layer. Proper dressings were applied. Patient tolerated the procedure well.
[2022-02-28] MEDS: HEPARIN SODIUM,PORCINE/PF 5,000 UNIT/0.5 ML SYRINGE SQ SCH (19:19)
[2022-02-28] MEDS: ATORVASTATIN 20 MG TAB PO SCH (19:19)
[2022-02-28 20:07] LABS: Glucose,Whole Blood 140 mg/dL (70-110)
[2022-02-28] MEDS: INSULIN DETEMIR (LEVEMIR) 100 UNIT/ML SYR SQ SCH (20:07)
--- NOTE | 2022-03-01 00:29 | P.CONS ---
History of Present Illness - Reason for Consult Consult date: 02/28/22 - History of Present Illness Patient is a 71-year old male with a past medical history significant for end-stage renal disease on hemodialysis through the right subclavian permacatheter with the patient has for more than a year patient also have a left arm AV fistula which is currently working and has been recently used however the right chest wall permacatheter was not discontinued patient is presenting to the ER last night for evaluation of a fever x1 day patient complaining of feeling weak no energy and did have an episode of fever with rigors and chills patient also mention an episode of vomiting however the patient denies having any abdominal pain denies having any diarrhea or any constipation patient does not make any urine and no urinary symptoms denies any chest pain or shortness of breath or cough on presentation to the hospital the patient was afebrile and no fever have been recorded subsequently he did have white count 24.8 with a left shift liver enzymes are normal Pro-Curtis's was mildly elevated winston PCR was negative, chest x-ray was negative for acute cardiopulmonary disease blood cu ltures has been obtained and which are currently pending patient was started on vancomycin has been admitted to the hospital infectious disease was consulted for further management of antibiotic therapy Past Medical History Past Medical History: Heart Failure, COPD, Diabetes Mellitus, Hyperlipidemia, Hypertension, Osteoarthritis (OA), Pneumonia, Renal Disease, Sleep Apnea/CPAP/BIPAP, Vascular Disorder Additional Past Medical History / Comment(s): IDDM type II, 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, chronic venous ulcer left anterior lower leg, sepsis from L leg wound, chronic anemia, hyperkalemia, CKD stage IV, UTIs, incontinence, DELVIN no longer using Cpap and is now on oxygen at 4l/nc atc, possible starting of dementia, confusion at times at night, bilateral lower leg varicosities, umbilical hernia, past duodenal ulcer with repair, Hpylori, wheelchair bound, states pt may have skin issue on his buttocks. 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 Past Anesthesia/Blood Transfusion Reactions: No Reported Reaction, Motion Sickness Date of Last Stent Placement:: 10/2015 Past Psychological History: No Psychological Hx Reported Additional Psychological History / Comment(s): Pt is a resident at [facility]. He is wheelchair bound. Smoking Status: Never smoker Past Alcohol Use History: None Reported Additional Past Alcohol Use History / Comment(s): Patient has been a lifelong nonsmoker. He denies any medical marijuana, marijuana, street drug use. He denies any alcohol abuse. Past Drug Use History: None Reported - Past Family History Father Family Medical History: COPD Additional Family Medical History / Comment(s): AT AGE 64- EMPHYSEMA(SMOKER) Mother Family Medical History: Diabetes Mellitus, Hypertension Additional Family Medical History / Comment(s): LUPUS, LEG AMPUTATED. MOM IN HER 60'S Medications and Allergies Home Medications Medication Instructions Recorded Confirmed Type allopurinoL [Zyloprim] 100 mg PO DAILY@0800 04/22/15 02/27/22 History Atorvastatin [Lipitor] 20 mg PO HS 12/09/19 02/27/22 History bisacodyL [Dulcolax] 10 mg RECTAL DAILY PRN 09/07/20 02/27/22 History Ipratropium-Albuterol Nebulize 3 ml INHALATION RT-Q4H PRN 11/06/20 02/27/22 History [Duoneb 0.5 mg-3 mg/3 ml Soln] Isosorbide Mononitrate ER [Imdur] 30 mg PO DAILY@0800 11/13/20 02/27/22 History amLODIPine [Norvasc] 5 mg PO DAILY@0800 11/13/20 02/27/22 History Metoclopramide HCl [Reglan] 5 mg PO TID PRN 07/10/21 02/27/22 History Potassium Chloride ER [K-Dur 20] 20 meq PO BID 07/10/21 02/27/22 History Renal Vitamin Tablet 0.8mg 1 tab PO DAILY@0800 07/10/21 02/27/22 History Fexofenadine/Pseudoephedrine 1 tab PO DAILY PRN 11/07/21 02/27/22 History [Genie-D 24 Hour Tablet] Insulin Glargine [Lantus Vial] 10 unit SQ HS 11/07/21 02/27/22 History Acetaminophen Tab [Tylenol] 650 mg PO Q4H PRN 02/27/22 02/27/22 History Sevelamer Carbonate 1 packet PO DAILY 02/27/22 02/27/22 History chlorproMAZINE HCL 25 mg PO DAILY PRN 02/27/22 02/27/22 History Allergies Allergy/AdvReac Type Severity Reaction Status Date / Time aspirin [From Anacin] Allergy Rash/Hives Verified 02/27/22 23:35 (Dulce brand ok) Sulfa (Sulfonamide AdvReac Kidneys Verified 02/27/22 23:35 Antibiotics) sulfamethoxazole AdvReac affects Verified 02/27/22 23:35 [From Bactrim] kidneys trimethoprim [From Bactrim] AdvReac Kidneys Verified 02/27/22 23:35 Physical Exam Vitals: Vital Signs Temp Pulse Pulse Resp BP BP Pulse Ox 02/28/22 07:00 97.8 F 63 18 137/56 100 02/28/22 03:37 98.2 F 61 17 120/57 100 02/28/22 02:30 98.2 F 70 18 152/79 100 02/27/22 22:36 98.0 F 77 15 134/60 100 Intake and Output 02/27/22 02/28/22 02/28/22 22:59 06:59 14:59 Other: # Voids 0 Weight 92.986 kg 92.986 kg Results CBC & Chem 7: 03/01/22 03:50 03/01/22 03:50 Labs: Abnormal Lab Results - Last 24 Hours (Table) 02/27/22 02/27/22 Range/Units 23:44 23:44 WBC 24.8 H (3.8-10.6) k/uL RBC 4.07 L (4.30-5.90) m/uL Hgb 12.4 L (13.0-17.5) gm/dL Hct 38.9 L (39.0-53.0) % Neutrophils # 21.8 H (1.3-7.7) k/uL Monocytes # 1.1 H (0-1.0) k/uL Sodium 134 L (137-145) mmol/L Chloride 95 L (98-107) mmol/L BUN 66 H (9-20) mg/dL Creatinine 5.62 H (0.66-1.25) mg/dL Glucose 122 H (74-99) mg/dL Assessment and Plan (1) Fever Current Visit: Yes Status: Acute Code(s): R50.9 - FEVER, UNSPECIFIED SNOMED Code(s): 997980411 Plan: 1Patient is a 71-year male with a past medical history significant for end-stage renal disease on hemodialysis through the right subclavian permacatheter with the patient has for more than a year patient also have a left arm AV fistula which is currently working presented to hospital with fever and concern for possible right subclavian dialysis catheter infection as the patient currently do not have any other obvious focus of infection chest x-ray was nega tive for abdominal was soft on clinical examination no evidence of any cellulitis or joint swelling 2was course of evaluation for removal of the dialysis catheter and the tip should be sent for the culture 3vancomycin pharmacy to dose to continue while waiting for the culture finalized We will follow on clinical condition and cultures to further adjust medication if needed Thank you for this consultation will follow this patient with you
[2022-03-01] MEDS ORDERED: VANCOMYCIN 1,500 MG in SODIUM CHLORIDE 0.9% 250 ML IVPB ONE (06:00)
[2022-03-01] MEDS: amLODIPine 5 MG TAB PO SCH ×2 (08:00→20:16)
[2022-03-01] MEDS: FOLIC ACID-VIT B COMPLEX-VIT C 1 CAP PO SCH (08:00)
[2022-03-01] MEDS: ISOSORBIDE MONONITRATE ER 30 MG TAB.ER.24H PO SCH (08:00)
[2022-03-01] MEDS: SEVELAMER 800 MG TAB PO SCH (08:00)
[2022-03-01] MEDS: allopurinoL 100 MG TAB PO SCH (08:00)
[2022-03-01] MEDS: HEPARIN SODIUM,PORCINE/PF 5,000 UNIT/0.5 ML SYRINGE SQ SCH ×2 (08:00→20:17)
[2022-03-01 09:36] LABS: HCT 32.8 % (39.6-50.0); HGB 10.5 g/dL (13.0-17.0); MCH 30.1 pg (27.0-32.0); Mean Platelet Volume 10.1 fL (9.5-12.2); NRBC Per 100 WBC 0 /100 WBCS (0.0-0.0); Platelet Count 209 X 10*3/uL (140-440); RBC 3.49 X 10*6/uL (4.40-5.60); RDW 15.2 % (11.5-14.5); WBC 9.67 X 10*3/uL (4.50-10.00)
[2022-03-01 09:44] LABS: African American GFR (CKD) 11.9 (60.0-200.0); Anion Gap 13.5 mmol/L (10.00-18.00); BUN/Creat Ratio 8.85 Ratio (12.00-20.00); Carbon Dioxide 24.5 mmol/L (20.0-27.5); Non-African American GFR(CKD) 10.3 (60.0-200.0); Potassium 3.4 mmol/L (3.5-5.5)
[2022-03-01 09:57] LABS: Hepatitis B Surface Antigen Nonreactive (Nonreactive)
[2022-03-01] MEDS ORDERED: POTASSIUM CHLORIDE ER 20 MEQ TAB.ER PO STA (10:43)
--- NOTE | 2022-03-01 10:45 | P.PN ---
Subjective Patient is seen in follow-up for end-stage renal disease. He is maintained on hemodialysis on Wednesday schedule. Permacath removed 02/28/2022. No problems with dialysis yesterday using the AV fistula. Tolerated 1.5 L ultrafiltration yesterday. No active complaints at this time. Cultures negative so far. Vital signs are stable. Blood pressure on the higher side. General: Awake. No acute distress. HEENT: Head exam is unremarkable. LUNGS: Breath sounds decreased. HEART: Rate and Rhythm are regular. ABDOMEN: Soft, no distention. EXTREMITITES: No edema. Chronic kidneys noted. Objective - Vital Signs Vital signs: Vital Signs Temp 98.2 F 03/01/22 07:00 Pulse 61 03/01/22 07:00 Resp 18 03/01/22 07:00 BP 173/57 03/01/22 07:00 Pulse Ox 100 03/01/22 07:00 FiO2 Intake & Output 02/28/22 03/01/22 03/01/22 18:59 06:59 18:59 Intake Total 218 120 Output Total 1500 Balance -1282 120 Intake: Oral 218 120 Output: Hemodialysis 1500 Other: # Voids 0 # Bowel Movements 1 - Labs CBC & Chem 7: 03/01/22 03:50 03/01/22 03:50 Labs: Abnormal Lab Results - Last 24 Hours (Table) 02/27/22 02/28/22 03/01/22 Range/Units 23:44 20:06 03:50 RBC 3.49 L (4.40-5.60) X 10*6/uL Hgb 10.5 L (13.0-17.0) g/dL Hct 32.8 L (39.6-50.0) % RDW 15.2 H (11.5-14.5) % Sodium (135-145) mmol/L Potassium (3.5-5.5) mmol/L Chloride (96-109) mmol/L BUN (9.0-27.0) mg/dL Creatinine (0.6-1.5) mg/dL Est GFR (CKD-EPI)AfAm (60.0-200.0) Est GFR (CKD-EPI)NonAf (60.0-200.0) BUN/Creatinine Ratio (12.00-20.00) Ratio Glucose (70-110) mg/dL POC Glucose (mg/dL) 140 H (70-110) mg/dL Procalcitonin 0.91 H (0.02-0.09) ng/mL 03/01/22 Range/Units 03:50 RBC (4.40-5.60) X 10*6/uL Hgb (13.0-17.0) g/dL Hct (39.6-50.0) % RDW (11.5-14.5) % Sodium 133 L (135-145) mmol/L Potassium 3.4 L (3.5-5.5) mmol/L Chloride 95 L (96-109) mmol/L BUN 46.0 H (9.0-27.0) mg/dL Creatinine 5.2 H (0.6-1.5) mg/dL Est GFR (CKD-EPI)AfAm 11.9 L (60.0-200.0) Est GFR (CKD-EPI)NonAf 10.3 L (60.0-200.0) BUN/Creatinine Ratio 8.85 L (12.00-20.00) Ratio Glucose 59 L (70-110) mg/dL POC Glucose (mg/dL) (70-110) mg/dL Procalcitonin (0.02-0.09) ng/mL Microbiology - Last 24 Hours (Table) 02/28/22 11:40 Catheter Tip Culture - Preliminary Catheter Tip 02/27/22 23:44 Blood Culture - Preliminary Blood No Growth after 24 hours Assessment and Plan Plan: Assessment: 1. End-stage renal disease maintained on hemodialysis on Wednesday schedule via left upper extremity AV fistula. 2. Fever. Unclear source. Possibly permacath infection. Permacath removed 02/28/2022. Cultures negative so far. On antibiotics per infectious disease. 3. Hypertension with chronic kidney disease. 4. Diabetes mellitus. 5. Chronic kidney disease mineral bone disease maintained on Renvela. Plan: Hemodialysis Wednesday. Antibiotics per infectious disease. Follow-up cultures. Monitor vancomycin levels. Dose to be adjusted for renal function. Increase dose of amlodipine to 5 mg twice daily. Hold for systolic blood pressure less than 125. Check orthostatic vital signs as well. Replace potassium.
--- NOTE | 2022-03-01 11:56 | P.PN ---
Subjective Patient was on 71-year-old male with the history of end-stage renal disease on hemodialysis Wednesday, , Wednesday with a left upper extremity AV fistula and also has a right chest permacath. Patient had this permacath for about a year. They recently started using his left upper extremity AV fistula. Patient had fever of 103, patient was subsequently sent in from hemodialysis unit. Patient denied any cough the doesn't have any other source of infection patient doesn't urinate much chest x-ray did not show any pneumonia. Blood cultures were ordered and are pending. Patient has leukocytosis with a white blood cell count of 24,800 03/01/2022 Patient is a clinically doing well white blood cell count has come down to 50,000 patient's dialysis catheter was removed. Awaiting catheter tip culture as per infectious disease recommendations. Presently on vancomycin which is being continued. Constitutional: Denied any fatigue denied any fever. Cardio vascular: denied any chest pain, palpitations Gastrointestinal denied any nausea vomiting Pulmonary: Denied any shortness of breath cough Neurologic denied any new focal deficits All inpatient medications were reviewed and appropriate changes in these medications as dictated in the interval history and assessment and plan. PHYSICAL EXAMINATION: GENERAL: The patient is alert and oriented x3, not in any acute distress. Well developed, well nourished. HEENT: Pupils are round and equally reacting to light. EOMI. No scleral icterus. No conjunctival pallor. Normocephalic, atraumatic. No pharyngeal erythema. No thyromegaly. CARDIOVASCULAR: S1 and S2 present. No murmurs, rubs, or gallops. PULMONARY: Chest is clear to auscultation, no wheezing or crackles. ABDOMEN: Soft, nontender, nondistended, normoactive bowel sounds. No palpable organomegaly. MUSCULOSKELETAL: No joint swelling or deformity. EXTREMITIES: No cyanosis, clubbing, or pedal edema. NEUROLOGICAL: Gross neurological examination did not reveal any focal deficits. SKIN: No rashes. Assessment and plan -Sepsis: Possible source is infected permacath, permacath was removed and the patient's vital blood cell count is improving awaiting catheter tip cultures and patient can use to be on IV vancomycin . patient is on IV vancomycin. -End-stage renal disease hemodialysis dependent nephrology evaluated the patient -Hypertension next and-COPD without any acute exacerbation -Hyperlipidemia -Sleep apnea, obesity uses CPAP machine at home which will be continued -Peripheral vascular disease next and-type 2 diabetes mellitus for which patient is on the Levemir which will be resumed with sliding scale For above-mentioned chronic medical problems patient will be resumed on home medications. DVT prophylaxis: Subcutaneous heparin Objective - Vital Signs Vital signs: Vital Signs Temp 98.2 F 03/01/22 07:00 Pulse 65 03/01/22 11:28 Resp 18 03/01/22 07:00 BP 141/68 03/01/22 11:28 Pulse Ox 100 03/01/22 07:00 FiO2 Intake & Output 02/28/22 03/01/22 03/01/22 18:59 06:59 18:59 Intake Total 218 120 Output Total 1500 Balance -1282 120 Intake: Oral 218 120 Output: Hemodialysis 1500 Other: # Voids 0 # Bowel Movements 1 - Labs CBC & Chem 7: 03/01/22 03:50 03/01/22 03:50 Labs: Abnormal Lab Results - Last 24 Hours (Table) 02/27/22 02/28/22 03/01/22 Range/Units 23:44 20:06 03:50 RBC 3.49 L (4.40-5.60) X 10*6/uL Hgb 10.5 L (13.0-17.0) g/dL Hct 32.8 L (39.6-50.0) % RDW 15.2 H (11.5-14.5) % Sodium (135-145) mmol/L Potassium (3.5-5.5) mmol/L Chloride (96-109) mmol/L BUN (9.0-27.0) mg/dL Creatinine (0.6-1.5) mg/dL Est GFR (CKD-EPI)AfAm (60.0-200.0) Est GFR (CKD-EPI)NonAf (60.0-200.0) BUN/Creatinine Ratio (12.00-20.00) Ratio Glucose (70-110) mg/dL POC Glucose (mg/dL) 140 H (70-110) mg/dL Procalcitonin 0.91 H (0.02-0.09) ng/mL 03/01/22 Range/Units 03:50 RBC (4.40-5.60) X 10*6/uL Hgb (13.0-17.0) g/dL Hct (39.6-50.0) % RDW (11.5-14.5) % Sodium 133 L (135-145) mmol/L Potassium 3.4 L (3.5-5.5) mmol/L Chloride 95 L (96-109) mmol/L BUN 46.0 H (9.0-27.0) mg/dL Creatinine 5.2 H (0.6-1.5) mg/dL Est GFR (CKD-EPI)AfAm 11.9 L (60.0-200.0) Est GFR (CKD-EPI)NonAf 10.3 L (60.0-200.0) BUN/Creatinine Ratio 8.85 L (12.00-20.00) Ratio Glucose 59 L (70-110) mg/dL POC Glucose (mg/dL) (70-110) mg/dL Procalcitonin (0.02-0.09) ng/mL Microbiology - Last 24 Hours (Table) 02/28/22 11:40 Catheter Tip Culture - Preliminary Catheter Tip 02/27/22 23:44 Blood Culture - Preliminary Blood No Growth after 24 hours
[2022-03-01 12:50] LABS: Hepatitis B Surface Antibody Reactive (Nonreactive)
--- NOTE | 2022-03-01 15:35 | P.PN ---
Subjective Progress Note Date: 03/01/22 Principal diagnosis: Fever and possible dialysis catheter infection Patient is a 71-year-old male with a past medical history significant for end-stage renal disease presented to hospital with fever and concern for possible right subclavian dialysis catheter infection this patient who do have a functioning graft to the left upper extremity status post removal of the d ialysis catheter on 02/28/2022 On today's evaluation that is 03/01/2022, the patient denies having any fever or edges, the patient denies any further nausea or vomiting no abdominal pain no diarrhea no chest pain shortness of breath or cough Objective - Vital Signs Vital signs: Vital Signs Temp 98.2 F 03/01/22 07:00 Pulse 65 03/01/22 11:28 Resp 18 03/01/22 07:00 BP 141/68 03/01/22 11:28 Pulse Ox 100 03/01/22 07:00 FiO2 Intake & Output 02/28/22 03/01/22 03/01/22 18:59 06:59 18:59 Intake Total 218 120 Output Total 1500 Balance -1282 120 Intake: Oral 218 120 Output: Hemodialysis 1500 Other: # Voids 0 0 # Bowel Movements 1 - Exam GENERAL DESCRIPTION: An elderly male lying in bed in no distress RESPIRATORY SYSTEM: Unlabored breathing , decreased breath sounds at bases HEART: S1 S2 regular rate and rhythm , ABDOMEN: Soft , no tenderness EXTREMITIES: No edema feet - Labs CBC & Chem 7: 03/01/22 03:50 03/01/22 03:50 Labs: Abnormal Lab Results - Last 24 Hours (Table) 02/27/22 02/28/22 03/01/22 Range/Units 23:44 20:06 03:50 RBC (4.40-5.60) X 10*6/uL Hgb (13.0-17.0) g/dL Hct (39.6-50.0) % RDW (11.5-14.5) % Sodium (135-145) mmol/L Potassium (3.5-5.5) mmol/L Chloride (96-109) mmol/L BUN (9.0-27.0) mg/dL Creatinine (0.6-1.5) mg/dL Est GFR (CKD-EPI)AfAm (60.0-200.0) Est GFR (CKD-EPI)NonAf (60.0-200.0) BUN/Creatinine Ratio (12.00-20.00) Ratio Glucose (70-110) mg/dL POC Glucose (mg/dL) 140 H (70-110) mg/dL Procalcitonin 0.91 H (0.02-0.09) ng/mL Hep Bs Antibody Reactive A (Nonreactive) 03/01/22 03/01/22 Range/Units 03:50 03:50 RBC 3.49 L (4.40-5.60) X 10*6/uL Hgb 10.5 L (13.0-17.0) g/dL Hct 32.8 L (39.6-50.0) % RDW 15.2 H (11.5-14.5) % Sodium 133 L (135-145) mmol/L Potassium 3.4 L (3.5-5.5) mmol/L Chloride 95 L (96-109) mmol/L BUN 46.0 H (9.0-27.0) mg/dL Creatinine 5.2 H (0.6-1.5) mg/dL Est GFR (CKD-EPI)AfAm 11.9 L (60.0-200.0) Est GFR (CKD-EPI)NonAf 10.3 L (60.0-200.0) BUN/Creatinine Ratio 8.85 L (12.00-20.00) Ratio Glucose 59 L (70-110) mg/dL POC Glucose (mg/dL) (70-110) mg/dL Procalcitonin (0.02-0.09) ng/mL Hep Bs Antibody (Nonreactive) Microbiology - Last 24 Hours (Table) 02/28/22 11:40 Catheter Tip Culture - Preliminary Catheter Tip 02/27/22 23:44 Blood Culture - Preliminary Blood No Growth after 24 hours Assessment and Plan (1) Fever Current Visit: Yes Status: Acute Code(s): R50.9 - FEVER, UNSPECIFIED SN OMED Code(s): 233088572 Plan: 1patient presented to the hospital with fever in this patient who do have history of end-stage disease on dialysis with concern for possible right subclavian dialysis catheter infection which has been discontinued cultures so f ar negative and the patient fever has resolved 2patient to continue the vancomycin while waiting for the cultures to finalize to determine his discharge antibiotics Time with Patient: Less than 30
[2022-03-01] MEDS: ATORVASTATIN 20 MG TAB PO SCH (20:16)
[2022-03-01] MEDS: INSULIN DETEMIR (LEVEMIR) 100 UNIT/ML SYR SQ SCH (20:23)
[2022-03-01 20:24] LABS: Glucose,Whole Blood 162 mg/dL (70-110)
[2022-03-02] MEDS: ISOSORBIDE MONONITRATE ER 30 MG TAB.ER.24H PO SCH (09:40)
[2022-03-02] MEDS: SEVELAMER 800 MG TAB PO SCH (09:40)
[2022-03-02] MEDS: amLODIPine 5 MG TAB PO SCH (09:40)
[2022-03-02] MEDS: FOLIC ACID-VIT B COMPLEX-VIT C 1 CAP PO SCH (09:40)
[2022-03-02] MEDS: HEPARIN SODIUM,PORCINE/PF 5,000 UNIT/0.5 ML SYRINGE SQ SCH (09:40)
[2022-03-02] MEDS: allopurinoL 100 MG TAB PO SCH (09:43)
[2022-03-02 10:08] LABS: Basophils % (A) 0 %; Eosinophils # (A) 0.3 k/uL (0-0.7); Eosinophils % (A) 3 %; HCT 34.6 % (39.0-53.0); HGB 11.3 gm/dL (13.0-17.5); Lymphocytes # (A) 1.5 k/uL (1.0-4.8); Lymphocytes % (A) 15 %; MCH 31.2 pg (25.0-35.0); MCHC 32.7 g/dL (31.0-37.0); MCV 95.3 fL (80.0-100.0); Mean Platelet Volume 8.1; Monocytes # (A) 0.7 k/uL (0-1.0); Monocytes % (A) 7 %; Neutrophils # (A) 7.1 k/uL (1.3-7.7); Neutrophils % (A) 73 %; Platelet Count 236 k/uL (150-450); RBC 3.63 m/uL (4.30-5.90); RDW 15.1 % (11.5-15.5); WBC 9.7 k/uL (3.8-10.6)
[2022-03-02 10:15] LABS: African American GFR (CKD) 9 (>60 ml/min/1.73 sqM); Anion Gap 16 mmol/L; Blood Urea Nitrogen 61 mg/dL (9-20); Calcium 8.7 mg/dL (8.4-10.2); Carbon Dioxide 20 mmol/L (22-30); Chloride 93 mmol/L (98-107); Glucose 59 mg/dL (74-99); Non-African American GFR(CKD) 8 (>60 ml/min/1.73 sqM); Potassium 3.5 mmol/L (3.5-5.1); Sodium 129 mmol/L (137-145)
[2022-03-02] MEDS ORDERED: POTASSIUM CHLORIDE ER 20 MEQ TAB.ER PO STA (10:42)
--- NOTE | 2022-03-02 10:43 | P.PN ---
Subjective Patient is seen in follow-up for end-stage renal disease. He is maintained on hemodialysis on Wednesday schedule. Permacath removed 02/28/2022. No problems with dialysis using the AV fistula. No active complaints at this time. Cultures negative so far. Vital signs are stable. Supine blood pressure 124/60. General: Awake. No acute distress. HEENT: Head exam is unremarkable. LUNGS: Breath sounds decreased. HEART: Rate and Rhythm are regular. ABDOMEN: Soft, no distention. EXTREMITITES: No edema. Chronic changes noted. Objective - Vital Signs Vital signs: Vital Signs Temp 98.6 F 03/02/22 07:00 Pulse 72 03/02/22 07:00 Resp 20 03/02/22 07:00 BP 180/65 03/02/22 07:00 Pulse Ox 98 03/02/22 07:33 FiO2 Intake & Output 03/01/22 03/02/22 03/02/22 18:59 06:59 18:59 Intake Total 120 Balance 120 Intake: Oral 120 Other: # Voids 0 0 # Bowel Movements 1 0 - Labs CBC & Chem 7: 03/02/22 06:14 03/02/22 06:14 Labs: Abnormal Lab Results - Last 24 Hours (Table) 03/01/22 03/01/22 03/02/22 Range/Units 03:50 20:22 06:14 RBC 3.63 L (4.30-5.90) m/uL Hgb 11.3 L (13.0-17.5) gm/dL Hct 34.6 L (39.0-53.0) % Sodium (137-145) mmol/L Chloride (98-107) mmol/L Carbon Dioxide (22-30) mmol/L BUN (9-20) mg/dL Creatinine (0.66-1.25) mg/dL Glucose (74-99) mg/dL POC Glucose (mg/dL) 162 H (70-110) mg/dL Hep Bs Antibody Reactive A (Nonreactive) 03/02/22 Range/Units 06:14 RBC (4.30-5.90) m/uL Hgb (13.0-17.5) gm/dL Hct (39.0-53.0) % Sodium 129 L (137-145) mmol/L Chloride 93 L (98-107) mmol/L Carbon Dioxide 20 L (22-30) mmol/L BUN 61 H (9-20) mg/dL Creatinine 6.46 H (0.66-1.25) mg/dL Glucose 59 L (74-99) mg/dL POC Glucose (mg/dL) (70-110) mg/dL Hep Bs Antibody (Nonreactive) Microbiology - Last 24 Hours (Table) 02/27/22 23:44 Blood Culture - Preliminary Blood No Growth after 48 hours 02/28/22 11:40 Catheter Tip Culture - Preliminary Catheter Tip Assessment and Plan Plan: Assessment: 1. End-stage renal disease maintained on hemodialysis on Wednesday schedule via left upper extremity AV fistula. 2. Fever. Unclear source. Possibly permacath infection. Permacath removed 02/28/2022. Cultures negative so far. On antibiotics per infectious disease. 3. Hypertension with chronic kidney disease. Supine blood pressure 124/60. Standing blood pressure not done as patient is mostly bedbound. 4. Diabetes mellitus. 5. Chronic kidney disease mineral bone disease maintained on Renvela. 6. Metabolic acidosis secondary to chronic kidney disease. Expect improvement postdialysis. 7. Hyponatremia secondary to chronic kidney disease. Expect improvement postdi alysis. Plan: Hemodialysis Wednesday. Antibiotics per infectious disease. Follow-up cultures. Monitor vancomycin levels. Dose to be adjusted for renal function. Target level near 15. Hold amlodipine for systolic blood pressure less than 125. Add 1500 mL fluid restriction.
[2022-03-02] MEDS ORDERED: VANCOMYCIN 1,500 MG in SODIUM CHLORIDE 0.9% 250 ML IVPB ONE (12:00)
[2022-03-02 12:53] LABS: Glucose,Whole Blood 183 mg/dL (70-110)
--- NOTE | 2022-03-02 13:54 | P.DS ---
Providers Date of admission: 02/28/22 02:37 Expected date of discharge: 03/02/22 Attending physician: Luke Woods Consults: 02/28/22 02:37 Consult Physician Routine Consulting Provider: Cristian Watson Consult Reason/Comments: Fever, unknown source Do you want consulting provider notified?: Yes Consult Physician Routine Consulting Provider: Camille Cruz Consult Reason/Comments: Dialysis patient Do you want consulting provider notified?: Yes 02/28/22 10:00 Consult Physician Routine Consulting Provider: Kirti Maria Consult Reason/Comments: Infected dialysis catheter Do you want consulting provider notified?: Yes Primary care physician: Chance Flowers Hospital Course: Final diagnosis -Sepsis, present on admission. Possible source is infected permacath -End-stage renal disease hemodialysis dependent on Wednesday//Wednesday -Hypertension -COPD without any acute exacerbation -Hyperlipidemia -Sleep apnea, obesity uses CPAP machine at home -Peripheral vascular disease -type 2 diabetes mellitus -DVT prophylaxis -Full code Discharge disposition Patient is being discharged in a stable condition with guarded prognosis to [facility] where he is a resident. Patient will follow-up with Dr. Flowers in the outpatient setting upon discharge. Patient is to continue with hemodialysis as scheduled on Wednesday//Wednesday and will continue with vancomycin dosing with hemodialysis per infectious disease recommendations. Total time taken is greater than 35 minutes. Hospital course This is a 71 year-old male who was recently admitted with fevers and sent in from the hemodialysis unit with questionable possible permacath infection. Patient was seen and evaluated by infectious disease and maintained on IV vancomycin along with vascular surgery and had the permacath removed. Patient does have a left upper extremity AV fistula that is functioning and will continue with hemodialysis Wednesday//Wednesday. Patient will continue vancomycin dosing during hemodialysis sessions per infectious disease recommendations. Currently no reports of chest pain, shortness of breath, or palpitations. Patient is afebrile. No reports of nausea or vomiting and patient is tolerating diet. Patient will be discharged home to [facility] today. Physical exam: Gen: This is a 71-year-old male awake, alert and oriented, well-developed, well-nourished. HEENT: Head is atraumatic, normocephalic. Pupils equal, round. Sclerae is anicteric. NECK: Supple. No JVD. No lymphadenopathy. No thyromegaly. LUNGS: Diminished breath sounds bilaterally with no wheezing or rhonchi noted. No intercostal retractions. HEART: Regular rate and rhythm. No murmur. ABDOMEN: Soft. Bowel sounds are present. No masses. No tenderness. EXTREMITIES: No pedal edema. No calf tenderness. NEUROLOGICAL: Patient is awake, alert and oriented x3. Cranial nerves 2 through 12 are grossly intact. Please refer to medication reconciliation sheet for a list of medications. The impression and plan of care has been dictated by Poonam Ramos, Nurse Practitioner as directed. Dr. Billy MD I have performed a history and examination and MDM of this patient, discussed the same with the dictator, and agree with the dictator's assessment and plan as written ,documented as a scribe. Based on total visit time, I have performed more than 50% of the visit. Patient Condition at Discharge: Fair Plan - Discharge Summary Discharge Rx Participant: No New Discharge Prescriptions: Continue allopurinoL [Zyloprim] 100 mg PO DAILY@0800 Atorvastatin [Lipitor] 20 mg PO HS bisacodyL [Dulcolax] 10 mg RECTAL DAILY PRN PRN Reason: Constipation Renal Vitamin Tablet 0.8mg 1 tab PO DAILY@0800 Fexofenadine/Pseudoephedrine [Genie-D 24 Hour Tablet] 1 tab PO DAILY PRN PRN Reason: Allergy Symptoms Insulin Glargine [Lantus Vial] 10 unit SQ HS Acetaminophen Tab [Tylenol] 650 mg PO Q4H PRN PRN Reason: Pain Or Fever > 100.5 chlorproMAZINE HCL 25 mg PO DAILY PRN PRN Reason: HICCUPS Sevelamer Carbonate 1 packet PO DAILY Ipratropium-Albuterol Nebulize [Duoneb 0.5 mg-3 mg/3 ml Soln] 3 ml INHALATION RT-Q4H PRN PRN Reason: Shortness Of Breath Isosorbide Mononitrate ER [Imdur] 30 mg PO DAILY@0800 Metoclopramide HCl [Reglan] 5 mg PO TID PRN PRN Reason: Nausea Potassium Chloride ER [K-Dur 20] 20 meq PO BID Changed amLODIPine [Norvasc] 5 mg PO BID 30 Days #60 tab Discharge Medication List allopurinoL [Zyloprim] 100 mg PO DAILY@0800 04/22/15 [History] Atorvastatin [Lipitor] 20 mg PO HS 12/09/19 [History] bisacodyL [Dulcolax] 10 mg RECTAL DAILY PRN 09/07/20 [History] Ipratropium-Albuterol Nebulize [Duoneb 0.5 mg-3 mg/3 ml Soln] 3 ml INHALATION RT-Q4H PRN 11/06/20 [History] Isosorbide Mononitrate ER [Imdur] 30 mg PO DAILY@0800 11/13/20 [History] Metoclopramide HCl [Reglan] 5 mg PO TID PRN 07/10/21 [History] Potassium Chloride ER [K-Dur 20] 20 meq PO BID 07/10/21 [History] Renal Vitamin Tablet 0.8mg 1 tab PO DAILY@0800 07/10/21 [History] Fexofenadine/Pseudoephedrine [Genie-D 24 Hour Tablet] 1 tab PO DAILY PRN 11/07/21 [History] Insulin Glargine [Lantus Vial] 10 unit SQ HS 11/07/21 [History] Acetaminophen Tab [Tylenol] 650 mg PO Q4H PRN 02/27/22 [History] Sevelamer Carbonate 1 packet PO DAILY 02/27/22 [History] chlorproMAZINE HCL 25 mg PO DAILY PRN 02/27/22 [History] amLODIPine [Norvasc] 5 mg PO BID 30 Days #60 tab 03/02/22 [Rx] Follow up Appointment(s)/Referral(s): Chance Flowers MD [Primary Care Provider] - 1-2 days [facility] [NON-STAFF] - As Needed Afshin Mcintyre DO [STAFF PHYSICIAN] - 1 Week Activity/Diet/Wound Care/Special Instructions: Patient is returning to [facility] Activity as tolerated Patient is to continue dialysis Wednesday//Wednesday Patient will continue with vancomycin with dialysis per infectious disease recommendations Follow-up with nephrology outpatient Recommend 1500 mL fluid restrictions Recommend holding amlodipine if systolic blood pressure is 125 or less Recommend continuing renal diet with low potassium, low phosphorus, low sodium Discharge Disposition: TRANSFER TO SNF/ECF
[2022-03-02 14:01] VITALS: BP 134/57; PULSE 56; RESP 18; TEMP 97.6
--- NOTE | 2022-03-04 11:37 | CDI ---
Documentation Clarification Form Date: 03/04/2022 11:14:48 AM From: Abbie Sanz CCS, CCDS Admit Date: 02/28/2022 02:37:00 AM Patient Name: Fadi Meza Visit Number: [id number] Discharge Date: 03/02/2022 05:50:00 PM ATTENTION: The Clinical Documentation Specialists (CDI) and [facility] Coding Staff appreciate your assistance in clarifying documentation. Please respond to the clarification below the line at the bottom and electronically sign. The CDI & [facility] Coding staff will review the response and follow-up if needed. Please note: Queries are made part of the Legal Health Record. If you have any questions, please contact the author of this message via ITS. Dr. Angelo Cervantes: Sepsis, Present on Admission. Possible source is infected Permacath is documented in the 02/28 History & Physical and in a subsequent 03/01 Progress Note and in the 03/02 Discharge Summary and may lack sufficient clinical evidence/support in the medical record. Additional clarification is requested. History/Risk Factors per the 02/28 H/P: ESRD on Hemodialysis with Left Upper Extremity AV Fistula and also has a Right Permacath. The patient has had the Permacath for about a year. Hypertension, COPD, Hyperlipidemia, Obstructive Sleep Apnea, Obesity, (BMI 29.4), PVD, IDDM II, Heart Failure, Osteoarthritis, Pneumonia, Severe Bilateral Feet and Hand Neuropathy, Chronic Venous Stasis, Previous Sepsis from Left Leg Wound, Chronic Anemia, CKD IV, UTIs, Incontinence, possible Dementia, Wheelchair Bound, ESBL & MRSA: Urine, VRE Leg. Clinical Indicators: Presented to the ED on 02/27 via EMS from a Longterm with Fever, Temp up to 103.4. General Exam: no apparent distress. Cultures drawn, no definite source for the fever. Admit with Fever, ESRD on Hemodialysis. 02/28 Procedure Preop/Postop Diagnosis: Suspected infected hemodialysis catheter Procedure: Removal of tunneled hemodialysis catheter 02/27 VS: T 98.0, P 77, R 15, 18; BP 134/60, 152/79; PO 100 2Lnc, BMI: 29.4 02/27 LAB: WBC 24.8, RBC 4.07, Hgb 12.4, Hct 38.9, Neutrophils 21.8, Turner 1.1; Na 134, Chl 95, BUN 66, Creatinine 5.62, Glucose 122, Procalcitonin 0.91 02/27 COVID: Negative. 02/27 Blood Culture x1 (Preliminary to date): No growth after 96 hours. 02/28 Catheter Tip Culture (Final): No growth after 48 hours. 02/28 CXR: No active cardiopulmonary disease. Treatment 02/27: Admit to Observation Status. Blood culture, IV Rocephin 50 mls @ 100 mls/hr x1 02/28: Admit to Inpatient Status. po [place] 7.5-325 x1, po Tylenol 650 mg q6H, po [place] 6-325 q5/prn, IV Vancomycin 250 mls @ 125 mls/hr x1, INH Duoneb 3 ml q4H/prn. 03/01: IV Vancomycin 250 mls @ 125 mls/hr x1, K-Dur 20 meq 03/02 IV Vancomycin 250 mls @ 125 mls/hr x1 Please clarify if Sepsis and/or if Sepsis due to possible infected Permacath is a valid diagnosis? [ ] Yes, Sepsis and/or Sepsis due to possible infected Permacath is a valid diagnosis and was present as evidence by (please specify clinical support): [ ] No, Sepsis and/or Sepsis due to possible infected Permacath is ruled out [ ] Other (please specify diagnosis) [ ] Unable to determine (Template Last Revised: September 2020) MTDD
--- NOTE | 2022-03-06 15:11 | CDI ---
Documentation Clarification Form Date: 03/04/2022 11:14:00 AM From: Abbie Sanz CCS, CCDS Admit Date: 02/28/2022 02:37:00 AM Patient Name: Fadi Meza Visit Number: [id number] Discharge Date: 03/02/2022 05:50:00 PM ATTENTION: The Clinical Documentation Specialists (CDI) and [facility] Coding Staff appreciate your assistance in clarifying documentation. Please respond to the clarification below the line at the bottom and electronically sign. The CDI & [facility] Coding staff will review the response and follow-up if needed. Please note: Queries are made part of the Legal Health Record. If you have any questions, please contact the author of this message via ITS. Dr. Angelo Cervantes: Sepsis, Present on Admission. Possible source is infected Permacath is documented in the 02/28 History & Physical and in a subsequent 03/01 Progress Note and in the 03/02 Discharge Summary and may lack sufficient clinical evidence/support in the medical record. Additional clarification is requested. History/Risk Factors per the 02/28 H/P: ESRD on Hemodialysis with Left Upper Extremity AV Fistula and also has a Right Permacath. The patient has had the Permacath for about a year. Hypertension, COPD, Hyperlipidemia, Obstructive Sleep Apnea, Obesity, (BMI 29.4), PVD, IDDM II, Heart Failure, Osteoarthritis, Pneumonia, Severe Bilateral Feet and Hand Neuropathy, Chronic Venous Stasis, Previous Sepsis from Left Leg Wound, Chronic Anemia, CKD IV, UTIs, Incontinence, possible Dementia, Wheelchair Bound, ESBL & MRSA: Urine, VRE Leg. Clinical Indicators: Presented to the ED on 02/27 via EMS from a Half-Way with Fever, Temp up to 103.4. General Exam: no apparent distress. Cultures drawn, no definite source for the fever. Admit with Fever, ESRD on Hemodialysis. 02/28 Procedure Preop/Postop Diagnosis: Suspected infected hemodialysis catheter Procedure: Removal of tunneled hemodialysis catheter 02/27 VS: T 98.0, P 77, R 15, 18; BP 134/60, 152/79; PO 100 2Lnc, BMI: 29.4 02/27 LAB: WBC 24.8, RBC 4.07, Hgb 12.4, Hct 38.9, Neutrophils 21.8, [place] 1.1; Na 134, Chl 95, BUN 66, Creatinine 5.62, Glucose 122, Procalcitonin 0.91 02/27 COVID: Negative. 02/27 Blood Culture x1 (Preliminary to date): No growth after 96 hours. 02/28 Catheter Tip Culture (Final): No growth after 48 hours. 02/28 CXR: No active cardiopulmonary disease. Treatment 02/27: Admit to Observation Status. Blood culture, IV Rocephin 50 mls @ 100 mls/hr x1 02/28: Admit to Inpatient Status. po [place] 7.5-325 x1, po Tylenol 650 mg q6H, po [place] 6-325 q5/prn, IV Vancomycin 250 mls @ 125 mls/hr x1, INH Duoneb 3 ml q4H/prn. 03/01: IV Vancomycin 250 mls @ 125 mls/hr x1, K-Dur 20 meq 03/02 IV Vancomycin 250 mls @ 125 mls/hr x1 Please clarify if Sepsis and/or if Sepsis due to possible infected Permacath is a valid diagnosis? [x ] Yes, Sepsis and/or Sepsis due to possible infected Permacath is a valid diagnosis and was present as evidence by (please specify clinical support): [ ] No, Sepsis and/or Sepsis due to possible infected Permacath is ruled out [ ] Other (please specify diagnosis) [ ] Unable to determine (Template Last Revised: September 2020) This query is not necessarily MTDD
== END 2022-03-02 17:50 | DRG 314 ==
LOC: EC 22:25 → 6NMEDSUR 02-28 02:37
PROVIDERS: ADMIT Hospitalist; ATTEND Hospitalist
PROC: 02PAX3Z Removal of Infusion Device from Heart, External Approach (ICD-10-PCS; principal; 2022-02-28)
PROC: 0JPT3XZ Removal of Tunneled Vascular Access Device from Trunk Subcutaneous Tissue and Fascia, Percutaneous Approach (ICD-10-PCS; principal; 2022-02-28)
PROC: 5A1D70Z Performance of Urinary Filtration, Intermittent, Less than 6 Hours Per Day (ICD-10-PCS; 2022-02-28)
DX: T80.211A Bloodstream infection due to central venous catheter, initial encounter (principal); A41.9 Sepsis, unspecified organism; N18.6 End stage renal disease; I13.2 Hypertensive heart and chronic kidney disease with heart failure and with stage 5 chronic kidney disease, or end stage renal disease; E87.2 Acidosis; E87.1 Hypo-osmolality and hyponatremia; E11.22 Type 2 diabetes mellitus with diabetic chronic kidney disease; E11.51 Type 2 diabetes mellitus with diabetic peripheral angiopathy without gangrene; E11.40 Type 2 diabetes mellitus with diabetic neuropathy, unspecified; F03.90 Unspecified dementia, unspecified severity, without behavioral disturbance, psychotic disturbance, mood disturbance, and anxiety; I50.9 Heart failure, unspecified; J44.9 Chronic obstructive pulmonary disease, unspecified; Z79.4 Long term (current) use of insulin; Z99.2 Dependence on renal dialysis; Z20.822 Contact with and (suspected) exposure to COVID-19; E83.9 Disorder of mineral metabolism, unspecified; E78.5 Hyperlipidemia, unspecified; G47.33 Obstructive sleep apnea (adult) (pediatric); I83.90 Asymptomatic varicose veins of unspecified lower extremity; R32 Unspecified urinary incontinence; M19.90 Unspecified osteoarthritis, unspecified site; E66.9 Obesity, unspecified; Z68.29 Body mass index [BMI] 29.0-29.9, adult; Z79.899 Other long term (current) drug therapy; Z95.5 Presence of coronary angioplasty implant and graft; Z90.49 Acquired absence of other specified parts of digestive tract; Y84.8 Other medical procedures as the cause of abnormal reaction of the patient, or of later complication, without mention of misadventure at the time of the procedure; Z99.3 Dependence on wheelchair; Z88.6 Allergy status to analgesic agent; Z88.1 Allergy status to other antibiotic agents; Z88.2 Allergy status to sulfonamides; Z83.3 Family history of diabetes mellitus
CPT/HCPCS: 36415; 71045; 80048; 80053; 80202; 82150; 83605; 83690; 84145; 85025; 85027; 86706; 87040; 87070; 87340; 87635; 90935; 94760; 96365; 96366; 96367; 99285

== ENCOUNTER 2023-07-06 11:48 | Inpatient (IN) | payer MEDICARE, BC ==
[2023-07-06] MEDS ORDERED: ACETAMINOPHEN TAB 500 MG TAB PO STA (12:31)
--- NOTE | 2023-07-06 12:35 | ED ---
General Adult HPI - General Chief complaint: Urogenital Stated complaint: Blood in Urine Time Seen by Provider: 07/06/23 12:00 Source: patient, RN notes reviewed, old records reviewed Mode of arrival: EMS Limitations: no limitations - History of Present Illness Initial comments: This is a 72-year-old male who presents to the emergency department stating that at the longterm there was some urine in the diaper and it had a little blood in it so they were concerned and sent him in to the emergency department. Patient denies any symptoms whatsoever. states he was a little confused yesterday and often that means he has a urinary tract infection or some other infection. Patient has no complete cough or difficulty breathing or chest pain. Patient denies abdominal pain patient denies nausea vomiting diarrhea. Patient denies any dysuria hematuria urinary frequency patient denies any CVA tenderness. Patient denies any other symptoms at this time. Patient states he does not make much urine. - Related Data Home Medications Medication Instructions Recorded Confirmed allopurinoL [Zyloprim] 100 mg PO DAILY@0804/22/15 02/27/22 Atorvastatin [Lipitor] 20 mg PO HS 12/09/19 02/27/22 bisacodyL [Dulcolax] 10 mg RECTAL DAILY PRN 09/07/20 02/27/22 Ipratropium-Albuterol Nebulize 3 ml INHALATION RT-Q4H PRN 11/06/20 02/27/22 [Duoneb 0.5 mg-3 mg/3 ml Soln] Isosorbide Mononitrate ER [Imdur] 30 mg PO DAILY@79911/13/20 02/27/22 Metoclopramide HCl [Reglan] 5 mg PO TID PRN 07/10/21 02/27/22 Potassium Chloride ER [K-Dur 20] 20 meq PO BID 07/10/21 02/27/22 Renal Vitamin Tablet 0.8mg 1 tab PO DAILY@0800 07/10/21 02/27/22 Fexofenadine/Pseudoephedrine 1 tab PO DAILY PRN 11/07/21 02/27/22 [Genie-D 24 Hour Tablet] Insulin Glargine [Lantus Vial] 10 unit SQ HS 11/07/21 02/27/22 Acetaminophen Tab [Tylenol] 650 mg PO Q4H PRN 02/27/22 02/27/22 Sevelamer Carbonate 1 packet PO DAILY 02/27/22 02/27/22 chlorproMAZINE HCL 25 mg PO DAILY PRN 02/27/22 02/27/22 Previous Rx's Medication Instructions Recorded amLODIPine [Norvasc] 5 mg PO BID 30 Days #60 tab 03/02/22 Allergies Allergy/AdvReac Type Severity Reaction Status Date / Time aspirin [From Anacin] Allergy Rash/Hives Verified 07/06/23 11:54 (Dulce brand ok) Sulfa (Sulfonamide AdvReac Kidneys Verified 07/06/23 11:54 Antibiotics) sulfamethoxazole AdvReac affects Verified 07/06/23 11:54 [From Bactrim] kidneys trimethoprim [From Bactrim] AdvReac Kidneys Verified 07/06/23 11:54 Review of Systems ROS Statement: Those systems with pertinent positive or pertinent negative responses have been documented in the HPI. ROS Other: All systems not noted in ROS Statement are negative. Past Medical History Past Medical History: Heart Failure, COPD, Diabetes Mellitus, Hyperlipidemia, Hypertension, Osteoarthritis (OA), Pneumonia, Renal Disease, Sleep Apnea/CPAP/BIPAP, Vascular Disorder Additional Past Medical History / Comment(s): IDDM type II, 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, chronic venous ulcer left anterior lower leg, sepsis from L leg wound, chronic anemia, hyperkalemia, CKD stage IV, UTIs, incontinence, DELVIN no longer using Cpap and is now on oxygen at 4l/nc atc, possible starting of dementia, confusion at times at night, bilateral lower leg varicosities, umbilical hernia, past duodenal ulcer with repair, Hpylori, wheelchair bound, states pt may have skin issue on his buttocks. 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 Past Anesthesia/Blood Transfusion Reactions: No Reported Reaction, Motion Sickness Date of Last Stent Placement:: 10/2015 Past Psychological History: No Psychological Hx Reported Smoking Status: Never smoker Past Alcohol Use History: None Reported Past Drug Use History: None Reported - Past Family History Father Family Medical History: COPD Additional Family Medical History / Comment(s): AT AGE 64- EMPHYSEMA(SMOKER) Mother Family Medical History: Diabetes Mellitus, Hypertension Additional Family Medical History / Comment(s): LUPUS, LEG AMPUTATED. MOM IN HER 60'S General Exam - General Exam Comments Initial Comments: GENERAL: Patient is well-developed and well-nourished. Patient is nontoxic and well-hydrated and is in no acute distress. ENT: Neck is soft and supple. No significant lymphadenopathy is noted. Oropharynx is clear. Moist mucous membranes. Neck has full range of motion without eliciting any pain. EYES: The sclera were anicteric and conjunctiva were pink and moist. Extraocular movements were intact and pupils were equal round and reactive to light. Eyelids were unremarkable. PULMONARY: Unlabored respirations. Good breath sounds bilaterally. No audible rales rhonchi or wheezing was noted. CARDIOVASCULAR: There is a regular rate and rhythm without any murmurs gallops or rubs. ABDOMEN: Soft and nontender with normal bowel sounds. SKIN: Skin is clear with no lesions or rashes and otherwise unremarkable. NEUROLOGIC: Patient is alert and oriented x3. Cranial nerves II through XII are grossly intact. Motor and sensory are also intact. Normal speech, volume and content. Symmetrical smile. MUSCULOSKELETAL: Normal extremities with adequate strength and full range of motion. LYMPHATICS: No significant lymphadenopathy is noted PSYCHIATRIC: Normal psychiatric evaluation. Limitations: no limitations Course Vital Signs 07/06/23 07/06/23 07/06/23 11:53 12:31 13:56 Temperature 99.6 F Pulse Rate 71 88 88 Respiratory 16 20 16 Rate Blood Pressure 95/52 134/84 134/54 O2 Sat by Pulse 94 L 98 98 Oximetry 07/06/23 07/06/23 14:00 15:00 Temperature Pulse Rate 78 82 Respiratory 20 16 Rate Blood Pressure 150/60 121/71 O2 Sat by Pulse 98 97 Oximetry Medical Decision Making - Medical Decision Making EKG is interpreted by myself. EKG shows sinus rhythm at 85 bpm CO interval is 195 QRSs 110 QT interval 377 QTC is 419. Patient's EKG shows no ST segment elevation or depression. Was pt. sent in by a medical professional or institution (YEISNO Schaeffer, LEARNING OPERATIONS SPECIALIST, urgent care, hospital, or longterm...) When possible be specific @ -Patient was sent in by the dialysis center Did you speak to anyone other than the patient for history (EMS, parent, family, police, friend...)? What history was obtained from this source @ - gives most of the history Did you review nursing and triage notes (agree or disagree)? Why? @ -I reviewed and agree with nursing and triage notes Were old charts reviewed (outside hosp., previous admission, EMS record, old EKG, old radiological studies, urgent care reports/EKG's, longterm records)? Report findings @ -I have reviewed prior charts from prior lab work on this patient Differential Diagnosis (chest pain, altered mental status, abdominal pain women, abdominal pain men, vaginal bleeding, weakness, fever, dyspnea, syncope, headache, dizziness, GI bleed, back pain, seizure, CVA, palpatations, mental health, musculoskeletal)? @ -Differential Altered Mental Status: Hypoglycemia, DKA, hypercapnia, ETOH, overdose, CO poisoning, trauma, myxedema coma, HTN encephalopathy, infection, encephalitis, psychosis, intercranial hemorrhage, hepatic encephalopathy, meningitis, CVA, this is not meant to be an all-inclusive list EKG interpreted by me (3pts min.). @ -As above X-rays interpreted by me (1pt min.). @ -None done CT interpreted by me (1pt min.). @ -None done U/S interpreted by me (1pt. min.). @ -None done What testing was considered but not performed or refused? (CT, X-rays, U/S, la bs)? Why? @ -None What meds were considered but not given or refused? Why? @ -None Did you discuss the management of the patient with other professionals (professionals i.e. YEISON Schaeffer, LEARNING OPERATIONS SPECIALIST, lab, RT, psych nurse, director social service, branch director, teacher, youth officer, caseworker)? Give summary @ -I spoke with sheet he agreed to admit the patient Was smoking cessation discussed for >3mins.? @ -No Was critical care preformed (if so, how long)? @ -No Were there social determinants of health that impacted care today? How? (Homelessness, low income, unemployed, alcoholism, drug addiction, transportation, low edu. Level, literacy, decrease access to med. care, penitentiary, rehab)? @ -No Was there de-escalation of care discussed even if they declined (Discuss DNR or withdrawal of care, Hospice)? DNR status @ -No What co-morbidities impacted this encounter? (DM, HTN, Smoking, COPD, CAD, Cancer, CVA, ARF, Chemo, Hep., AIDS, mental health diagnosis, sleep apnea, morbid obesity)? @ -None Was patient admitted / discharged? Hospital course, mention meds given and route, prescriptions, significant lab abnormalities, going to OR and other pertinent info. @ -Patient had hematuria and a high white count and states he is also altered mentally as well as had a low-grade fever twice and the patient has a urinary tract infection potentially and started the patient on Rocephin. I sp maddison with [facility] and they agreed to admit the patient. Undiagnosed new problem with uncertain prognosis? @ -No Drug Therapy requiring intensive monitoring for toxicity (Heparin, Nitro, Insulin, Cardizem)? @ -No Were any procedures done? @ -No Diagnosis/symptom? @ -Altered mental status Acute, or Chronic, or Acute on Chronic? @ -Acute Uncomplicated (without systemic symptoms) or Complicated (systemic symptoms)? @ -Complicated Side effects of treatment? @ -No Exacerbation, Progression, or Severe Exacerbation? @ -No Poses a threat to life or bodily function? How? (Chest pain, USA, ND, pneumonia, PE, COPD, DKA, ARF, appy, cholecystitis, CVA, Diverticulitis, Homicidal, Suicidal, threat to staff... and all critical care pts) @ -No Diagnosis/symptom? @ -Hematuria Acute, or Chronic, or Acute on Chronic? @ -Acute Uncomplicated (without systemic symptoms) or Complicated (systemic symptoms)? @ -Complicated Side effects of treatment? @ -none Exacerbation, Progression, or Severe Exacerbation] @ -no Poses a threat to life or bodily function? @ -No Diagnosis/symptom? @ -Urinary tract infection Acute, or Chronic, or Acute on Chronic? @ -Acute Uncomplicated (without systemic symptoms) or Complicated (systemic symptoms)? @ -Complicated Side effects of treatment? @ -none Exacerbation, Progression, or Severe Exacerbation] @ -no Poses a threat to life or bodily function? @ -Yes this could lead to sepsis and end organ dysfunction - Lab Data Result diagrams: 07/06/23 13:29 07/06/23 13:29 Lab Results 07/06/23 07/06/23 07/06/23 Range/Units 13:29 13:29 13:29 WBC 26.2 H (3.8-10.6) k/uL RBC 3.33 L (4.30-5.90) m/uL Hgb 11.2 L (13.0-17.5) gm/dL Hct 34.0 L (39.0-53.0) % MCV 102.2 H (80.0-100.0) fL MCH 33.8 (25.0-35.0) pg MCHC 33.0 (31.0-37.0) g/dL RDW 16.7 H (11.5-15.5) % Plt Count 239 (150-450) k/uL MPV 7.4 Neutrophils % (Manual) 88 % Band Neuts % (Manual) 2 % Lymphocytes % (Manual) 6 % Monocytes % (Manual) 5 % Eosinophils % (Manual) 1 % Metamyelocytes % 1 % Neutrophils # (Manual) 23.50 H (1.3-7.7) k/uL Lymphocytes # (Manual) 1.57 (1.0-4.8) k/uL Monocytes # (Manual) 1.31 H (0-1.0) k/uL Eosinophils # (Manual) 0.26 (0-0.7) k/uL Metamyelocytes # (Man) 0.26 H (0) k/uL Nucleated RBCs 0 (0-0) /100 WBC Manual Slide Review Performed Anisocytosis Slight Macrocytosis Moderate PT 10.4 (10.0-12.5) sec INR 0.9 (<1.2) APTT 26.0 (22.0-30.0) sec Sodium 139 (137-145) mmol/L Potassium 4.3 (3.5-5.1) mmol/L Chloride 96 L (98-107) mmol/L Carbon Dioxide 25 (22-30) mmol/L Anion Gap 18 mmol/L BUN 36 H (9-20) mg/dL Creatinine 4.06 H (0.66-1.25) mg/dL Est GFR (CKD-EPI)AfAm 16 (>60 ml/min/1.73 sqM) Est GFR (CKD-EPI)NonAf 14 (>60 ml/min/1.73 sqM) Glucose 117 H (74-99) mg/dL Lactic Ac Sepsis Rflx Plasma Lactic Acid Anthony (0.7-2.0) mmol/L Calcium 9.8 (8.4-10.2) mg/dL Total Bilirubin 0.7 (0.2-1.3) mg/dL AST 32 (17-59) U/L ALT 20 (4-49) U/L Alkaline Phosphatase 103 (38-126) U/L Total Protein 7.5 (6.3-8.2) g/dL Albumin 4.2 (3.5-5.0) g/dL 07/06/23 07/06/23 Range/Units 13:29 14:12 WBC (3.8-10.6) k/uL RBC (4.30-5.90) m/uL Hgb (13.0-17.5) gm/dL Hct (39.0-53.0) % MCV (80.0-100.0) fL MCH (25.0-35.0) pg MCHC (31.0-37.0) g/dL RDW (11.5-15.5) % Plt Count (150-450) k/uL MPV Neutrophils % (Manual) % Band Neuts % (Manual) % Lymphocytes % (Manual) % Monocytes % (Manual) % Eosinophils % (Manual) % Metamyelocytes % % Neutrophils # (Manual) (1.3-7.7) k/uL Lymphocytes # (Manual) (1.0-4.8) k/uL Monocytes # (Manual) (0-1.0) k/uL Eosinophils # (Manual) (0-0.7) k/uL Metamyelocytes # (Man) (0) k/uL Nucleated RBCs (0-0) /100 WBC Manual Slide Review Anisocytosis Macrocytosis PT (10.0-12.5) sec INR (<1.2) APTT (22.0-30.0) sec Sodium (137-145) mmol/L Potassium (3.5-5.1) mmol/L Chloride (98-107) mmol/L Carbon Dioxide (22-30) mmol/L Anion Gap mmol/L BUN (9-20) mg/dL Creatinine (0.66-1.25) mg/dL Est GFR (CKD-EPI)AfAm (>60 ml/min/1.73 sqM) Est GFR (CKD-EPI)NonAf (>60 ml/min/1.73 sqM) Glucose (74-99) mg/dL Lactic Ac Sepsis Rflx Y Plasma Lactic Acid Anthony 2.4 H* (0.7-2.0) mmol/L Calcium (8.4-10.2) mg/dL Total Bilirubin (0.2-1.3) mg/dL AST (17-59) U/L ALT (4-49) U/L Alkaline Phosphatase (38-126) U/L Total Protein (6.3-8.2) g/dL Albumin (3.5-5.0) g/dL Disposition Clinical Impression: UTI (urinary tract infection), Hematuria, Altered mental status Disposition: ADMITTED IP TO THIS [facility] Referrals: Chance Flowers MD [Primary Care Provider] - 1-2 days Time of Disposition: 16:27
[2023-07-06 13:35] LABS: Anisocytosis Slight; HGB 11.2 gm/dL (13.0-17.5); MCH 33.8 pg (25.0-35.0); MCV 102.2 fL (80.0-100.0); Macrocytosis Moderate; Mean Platelet Volume 7.4; Platelet Count 239 k/uL (150-450); RBC 3.33 m/uL (4.30-5.90); RDW 16.7 % (11.5-15.5); WBC 26.2 k/uL (3.8-10.6)
[2023-07-06 14:02] LABS: ALT 20 U/L (4-49); African American GFR (CKD) 16 (>60 ml/min/1.73 sqM); Albumin 4.2 g/dL (3.5-5.0); Anion Gap 18 mmol/L; Blood Urea Nitrogen 36 mg/dL (9-20); Carbon Dioxide 25 mmol/L (22-30); Chloride 96 mmol/L (98-107); Glucose 117 mg/dL (74-99); INR 0.9 (<1.2); Non-African American GFR(CKD) 14 (>60 ml/min/1.73 sqM); Prothrombin Time 10.4 sec (10.0-12.5); Sodium 139 mmol/L (137-145); Total Bilirubin 0.7 mg/dL (0.2-1.3); Total Protein 7.5 g/dL (6.3-8.2)
[2023-07-06 14:10] LABS: Calcium 9.8 mg/dL (8.4-10.2); Potassium 4.3 mmol/L (3.5-5.1)
[2023-07-06 14:11] LABS: AST 32 U/L (17-59); Alkaline Phosphatase 103 U/L (38-126)
[2023-07-06 14:53] LABS: Band Neutrophils % 2 %; Eosinophils # (M) 0.26 k/uL (0-0.7); Lymphocytes # (M) 1.57 k/uL (1.0-4.8); Metamyelocytes # (M) 0.26 k/uL (0); Metamyelocytes % 1 %; Monocytes # (M) 1.31 k/uL (0-1.0); Neutrophils % (M) 88 %; Nucleated Red Blood Cells 0 /100 WBC (0-0); Total Cells Counted 200
[2023-07-06] MEDS ORDERED: cefTRIAXone IN SWFI 1,000 MG/10 ML SYRINGE IVP STA (15:33)
--- NOTE | 2023-07-06 21:50 | P.CONS ---
History of Present Illness - Reason for Consult Consult date: 07/06/23 - History of Present Illness Patient is a 72-year-old male with a past medical history significant for COPD diabetes mellitus hypertension hyperlipidemia end-stage renal disease on dialysis through the left arm AV fistula patient is a snf resident patient was noticed to have some urine in the diaper and did have little bloody did so little concern for UTI patient mention he make small amount of urine h owever denies any significant burning with urination or suprapubic pain on presentation to the hospital patient did have low-grade fever of 99.6 degrees on hide patient was not tachycardic hypotensive or hypoxic he did have white count 26.2 with a left shift BUN/creatinine elevated lactic acid was elevated liver enzymes are normal blood and urine culture have been ordered patient was started on Rocephin admitted to hospital infectious disease was consulted for further management of antibiotic therapy,Patient has been complaining of some diarrhea before coming to the hospital however he was unable to quantify it any further for how many days he has at home at times going to the bathroom has been nauseated but no vomiting so far, but denies having any pain to the left arm AV fistula site denies any headache no URI symptoms no chest pain shortness of breath or cough Past Medical History Past Medical History: Heart Failure, COPD, Diabetes Mellitus, Hyperlipidemia, Hypertension, Osteoarthritis (OA), Pneumonia, Renal Disease, Sleep Apnea/CPAP/BIPAP, Vascular Disorder Additional Past Medical History / Comment(s): IDDM type II, 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, chronic venous ulcer left anterior lower leg, sepsis from L leg wound, chronic anemia, hyperkalemia, CKD stage IV, UTIs, incontinence, DELVIN no longer using Cpap and is now on oxygen at 4l/nc atc, possible starting of dementia, confusion at times at night, bilateral lower leg varicosities, umbilical hernia, past duodenal ulcer with repair, Hpylori, wheelchair bound, states pt may have skin issue on his buttocks. 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 Past Anesthesia/Blood Transfusion Reactions: No Reported Reaction, Motion Sickness Date of Last Stent Placement:: 10/2015 Past Psychological History: No Psychological Hx Reported Smoking Status: Never smoker Past Alcohol Use History: None Reported Past Drug Use History: None Reported - Past Family History Father Family Medical History: COPD Additional Family Medical History / Comment(s): AT AGE 64- EMPHYSEMA(SMOKER) Mother Family Medical History: Diabetes Mellitus, Hypertension Additional Family Medical History / Comment(s): LUPUS, LEG AMPUTATED. MOM IN HER 60'S Medications and Allergies Home Medications Medication Instructions Recorded Confirmed Type allopurinoL [Zyloprim] 100 mg PO DAILY@1200 04/22/15 07/06/23 History Atorvastatin [Lipitor] 20 mg PO HS 12/09/19 07/06/23 History bisacodyL [Dulcolax] 10 mg RECTAL DAILY PRN 09/07/20 07/06/23 History Ipratropium-Albuterol Nebulize 3 ml INHALATION RT-Q4H PRN 11/06/20 07/06/23 History [Duoneb 0.5 mg-3 mg/3 ml Soln] Isosorbide Mononitrate ER [Imdur] 30 mg PO DAILY 11/13/20 07/06/23 History Metoclopramide HCl [Reglan] 5 mg PO TID PRN 07/10/21 07/06/23 History Potassium Chloride ER [K-Dur 20] 20 meq PO BID@1400,2100 07/10/21 07/06/23 History Renal Vitamin Tablet 0.8mg 1 tab PO DAILY@1200 07/10/21 07/06/23 History Insulin Glargine [Lantus Vial] 10 unit SQ HS 11/07/21 07/06/23 History Acetaminophen Tab [Tylenol] 650 mg PO Q4H PRN 02/27/22 07/06/23 History Sevelamer Carbonate 1 packet PO BID@1400,2100 02/27/22 07/06/23 History chlorproMAZINE HCL 25 mg PO Q6H 02/27/22 07/06/23 History Liquacel 30 ml PO BID@1200,1700 07/06/23 07/06/23 History Loratadine [Claritin] 10 mg PO DAILY PRN 07/06/23 07/06/23 History Midodrine [ProAmatine] 5 mg PO DIRECTED PRN 07/06/23 07/06/23 History Saliva Stimulant Comb. No.3 1 spray MUCOUS MEM TID PRN 07/06/23 07/06/23 History [Biotene Moisturizing Mouth] Sevelamer Carbonate 1 packet PO SUMOWEFR@08,12,17 07/06/23 07/06/23 History Sevelamer Carbonate 1 packet PO TUTHSA@06,12,17 07/06/23 07/06/23 History amLODIPine [Norvasc] 5 mg PO BID@0800,1700 07/06/23 07/06/23 History guaiFENesin [guaiFENesin Oral 200 mg PO Q4H PRN 07/06/23 07/06/23 History Solution] Allergies Allergy/AdvReac Type Severity Reaction Status Date / Time aspirin [From Anacin] Allergy Rash/Hives Verified 07/06/23 18:55 (Dulce brand ok) Sulfa (Sulfonamide AdvReac Kidneys Verified 07/06/23 18:55 Antibiotics) sulfamethoxazole AdvReac affects Verified 07/06/23 18:55 [From Bactrim] kidneys trimethoprim [From Bactrim] AdvReac Kidneys Verified 07/06/23 18:55 Physical Exam Vitals: Vital Signs Temp Pulse Resp BP Pulse Ox 07/06/23 15:00 82 16 121/71 97 07/06/23 14:00 78 20 150/60 98 07/06/23 13:56 88 16 134/54 98 07/06/23 12:31 88 20 134/84 98 07/06/23 11:53 99.6 F 71 16 95/52 94 L Intake and Output 07/06/23 07/06/23 07/06/23 06:59 14:59 22:59 Other: Weight 117.934 kg Results CBC & Chem 7: 07/06/23 13:29 07/06/23 13:29 Labs: Abnormal Lab Results - Last 24 Hours (Table) 07/06/23 07/06/23 07/06/23 Range/Units 13:29 13:29 13:29 WBC 26.2 H (3.8-10.6) k/uL RBC 3.33 L (4.30-5.90) m/uL Hgb 11.2 L (13.0-17.5) gm/dL Hct 34.0 L (39.0-53.0) % MCV 102.2 H (80.0-100.0) fL RDW 16.7 H (11.5-15.5) % Neutrophils # (Manual) 23.50 H (1.3-7.7) k/uL Monocytes # (Manual) 1.31 H (0-1.0) k/uL Metamyelocytes # (Man) 0.26 H (0) k/uL Chloride 96 L (98-107) mmol/L BUN 36 H (9-20) mg/dL Creatinine 4.06 H (0.66-1.25) mg/dL Glucose 117 H (74-99) mg/dL Plasma Lactic Acid Anthony 2.4 H* (0.7-2.0) mmol/L Assessment and Plan Plan: 1 -patient with leukocytosis and this patient has been sent to the hospital where he was noticed to have some blood in urine in the diaper patient is a dialysis patient and hardly makes any urine no suprapubic discomfort has been noticed underlying UTI less likely but not entirely excluded 2-patient apparently was also complaining of some diarrhea and will need to rule out infectious etiology we will check a stool for C. difficile and stool culture 3-we will also check CT of abdominal pelvis with oral contrast to better define any intra-abdominal source responsible for this elevated white count We will follow on clinical condition and cultures to further adjust medication if needed Thank you for this consultation we will follow the patient along with you Dictation was produced using [employer] dictation software. please excuse any grammatical, word or spelling errors. Time with Patient: Greater than 30
[2023-07-06] MEDS ORDERED: ACETAMINOPHEN TAB 325 MG TAB PO PRN (22:50)
[2023-07-06] MEDS ORDERED: IPRATROPIUM-ALBUTEROL 3 ML NEB INHALATION PRN (22:50)
[2023-07-06] MEDS ORDERED: bisacodyL 10 MG SUPP RECTAL PRN (22:50)
[2023-07-06] MEDS ORDERED: DEXTROSE 50% SYRINGE 50 ML IVP PRN ×2 (22:51)
[2023-07-06] MEDS ORDERED: INSULIN DETEMIR (LEVEMIR) 100 UNIT/ML SYR SQ SCH (23:00)
--- NOTE | 2023-07-06 23:37 | P.HPIM ---
History of Present Illness H&P Date: 07/06/23 Chief Complaint: Blood in the urine Patient is a 73-year-old male with a past medical history of ESRD on hemodialysis TTS via left upper arm AV fistula, diabetes type 2, severe bilateral peripheral neuropathy, chronic venous stasis with left lower extremity ulcer, obstructive sleep apnea not currently using CPAP, chronic hypoxic respiratory failure on 4 L oxygen via nasal cannula, prior history of ESBL, VRE UTIs was sent from [facility] due to complaints of blood in the urine which was found in the diaper and concerned about possible infection. Patient was also having low-grade temperature. Apparently his patient has been little confused since yesterday which happens usually when there is infection in the urine. Otherwise patient denies any complaints of chest pain or shortness of breath. No nausea or vomiting. No complaints of abdominal pain. No suprapubic pain. Patient states that he did have episodes of diarrhea today. Mainly loose blood. Denies any hematemesis or melena. Denies any active bleeding currently. Patient did have a full run of hemodialysis today. Patient does make small amount of urine. EKG showed sinus rhythm with low QRS voltage in precordial leads. Laboratory data showed WBC 26.2 hemoglobin 11.2 and platelets 239. MCV 102.2 an d neutrophils 23.5 Sodium 139 potassium 4.3 chloride 96, BUN 36 and creatinine 4.06 Blood sugar is 117 lactic acid 2.4. Loading also not elevated. Albumin 4.2. Review of Systems Constitutional: Patient states that he has low-grade fever. No chills.,Generalized weakness. Abdomen: Patient denied any nausea or vomiting or abd. pain. Patient did have diarrhea with loose stools. Cardiovascular: Patient denies any chest pain or short of breath no palpitations. Respiratory: patient denied any cough . no sputum production. No shortness of breath Neurologic: Patient denied any numbness or tingling or headache. Musculoskeletal: Patient denies any complaints of joint swelling or deformity. Skin: Negative Psychiatric: Negative Endocrine: No heat or cold intolerance. No recent weight gain. Genitourinary: No dysuria or hematuria. All other 14 point ROS negative except the above Past Medical History Past Medical History: Heart Failure, COPD, Diabetes Mellitus, Hyperlipidemia, Hypertension, Osteoarthritis (OA), Pneumonia, Renal Disease, Sleep Apnea/CPAP/BIPAP, Vascular Disorder Additional Past Medical History / Comment(s): IDDM type II, 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, chronic venous ulcer left anterior lower leg, sepsis from L leg wound, chronic anemia, hyperkalemia, CKD stage IV, UTIs, incontinence, DELVIN no longer using Cpap and is now on oxygen at 4l/nc atc, possible starting of dementia, confusion at times at night, bilateral lower leg varicosities, umbilical hernia, past duodenal ulcer with repair, Hpylori, wheelchair bound, states pt may have skin issue on his buttocks. 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 Past Anesthesia/Blood Transfusion Reactions: No Reported Reaction, Motion Sickness Date of Last Stent Placement:: 10/2015 Past Psychological History: No Psychological Hx Reported Smoking Status: Never smoker Past Alcohol Use History: None Reported Past Drug Use History: None Reported - Past Family History Father Family Medical History: COPD Additional Family Medical History / Comment(s): AT AGE 64- EMPHYSEMA(SMOKER) Mother Family Medical History: Diabetes Mellitus, Hypertension Additional Family Medical History / Comment(s): LUPUS, LEG AMPUTATED. MOM IN HER 60'S Medications and Allergies Home Medications Medication Instructions Recorded Confirmed Type allopurinoL [Zyloprim] 100 mg PO DAILY@1200 04/22/15 07/06/23 History Atorvastatin [Lipitor] 20 mg PO HS 12/09/19 07/06/23 History bisacodyL [Dulcolax] 10 mg RECTAL DAILY PRN 09/07/20 07/06/23 History Ipratropium-Albuterol Nebulize 3 ml INHALATION RT-Q4H PRN 11/06/20 07/06/23 History [Duoneb 0.5 mg-3 mg/3 ml Soln] Isosorbide Mononitrate ER [Imdur] 30 mg PO DAILY 11/13/20 07/06/23 History Metoclopramide HCl [Reglan] 5 mg PO TID PRN 07/10/21 07/06/23 History Potassium Chloride ER [K-Dur 20] 20 meq PO BID@1400,2100 07/10/21 07/06/23 History Renal Vitamin Tablet 0.8mg 1 tab PO DAILY@1200 07/10/21 07/06/23 History Insulin Glargine [Lantus Vial] 10 unit SQ HS 11/07/21 07/06/23 History Acetaminophen Tab [Tylenol] 650 mg PO Q4H PRN 02/27/22 07/06/23 History Sevelamer Carbonate 1 packet PO BID@1400,2100 02/27/22 07/06/23 History chlorproMAZINE HCL 25 mg PO Q6H 02/27/22 07/06/23 History Liquacel 30 ml PO BID@1200,1700 07/06/23 07/06/23 History Loratadine [Claritin] 10 mg PO DAILY PRN 07/06/23 07/06/23 History Midodrine [ProAmatine] 5 mg PO DIRECTED PRN 07/06/23 07/06/23 History Saliva Stimulant Comb. No.3 1 spray MUCOUS MEM TID PRN 07/06/23 07/06/23 History [Biotene Moisturizing Mouth] Sevelamer Carbonate 1 packet PO SUMOWEFR@08,12,17 07/06/23 07/06/23 History Sevelamer Carbonate 1 packet PO TUTHSA@06,12,17 07/06/23 07/06/23 History amLODIPine [Norvasc] 5 mg PO BID@0800,1700 07/06/23 07/06/23 History guaiFENesin [guaiFENesin Oral 200 mg PO Q4H PRN 07/06/23 07/06/23 History Solution] Allergies Allergy/AdvReac Type Severity Reaction Status Date / Time aspirin [From Anacin] Allergy Rash/Hives Verified 07/06/23 18:55 (Dulce brand ok) Sulfa (Sulfonamide AdvReac Kidneys Verified 07/06/23 18:55 Antibiotics) sulfamethoxazole AdvReac affects Verified 07/06/23 18:55 [From Bactrim] kidneys trimethoprim [From Bactrim] AdvReac Kidneys Verified 07/06/23 18:55 Physical Exam Vitals: Vital Signs Temp Pulse Resp BP Pulse Ox 07/06/23 21:12 102 H 18 167/65 96 07/06/23 18:00 86 20 158/67 98 07/06/23 16:00 80 16 106/49 95 07/06/23 15:00 82 16 121/71 97 07/06/23 14:00 78 20 150/60 98 07/06/23 13:56 88 16 134/54 98 07/06/23 12:31 88 20 134/84 98 07/06/23 11:53 99.6 F 71 16 95/52 94 L Intake and Output 07/06/23 07/06/23 07/06/23 06:59 14:59 22:59 Other: Weight 117.934 kg PHYSICAL EXAMINATION: Patient is lying in the bed , no acute distress, awake alert and oriented.. HEENT: Normocephalic. Neck is supple. Pupils reactive. Nostrils clear. Oral cavity is moist. Neck reveals no JVD, carotid bruits, or thyromegaly. CHEST EXAMINATION: Trachea is central. Symmetrical expansion. Bibasilar dimin ished sounds. No wheezing or rhonchi. CARDIAC: Normal S1, S2 with no gallops. No murmurs ABDOMEN: Soft. Bowel sounds present. Nontender. No organomegaly. No abdominal bruits. Extremities: Bilateral lower extremity venous stasis with small ulcerations and trace edema. No clubbing or cyanosis Neurologically awake, alert, oriented x3. Patient is able to move all extremities. Skin: No rash or skin lesions. Psychiatric: Coperative. Nonsuicidal, Musculoskeletal: No joint swelling or deformity. Results CBC & Chem 7: 07/06/23 13:29 07/06/23 13:29 Labs: Abnormal Lab Results - Last 24 Hours (Table) 07/06/23 07/06/23 07/06/23 Range/Units 13:29 13:29 13:29 WBC 26.2 H (3.8-10.6) k/uL RBC 3.33 L (4.30-5.90) m/uL Hgb 11.2 L (13.0-17.5) gm/dL Hct 34.0 L (39.0-53.0) % MCV 102.2 H (80.0-100.0) fL RDW 16.7 H (11.5-15.5) % Neutrophils # (Manual) 23.50 H (1.3-7.7) k/uL Monocytes # (Manual) 1.31 H (0-1.0) k/uL Metamyelocytes # (Man) 0.26 H (0) k/uL Chloride 96 L (98-107) mmol/L BUN 36 H (9-20) mg/dL Creatinine 4.06 H (0.66-1.25) mg/dL Glucose 117 H (74-99) mg/dL Plasma Lactic Acid Anthony 2.4 H* (0.7-2.0) mmol/L Thrombosis Risk Factor Assmnt - DVT/VTE Prophylaxis DVT/VTE Prophylaxis: Pharmacologic Prophylaxis ordered Assessment and Plan Assessment: Hematuria noticed in the diaper. Hemodialysis patient makes scanty urine. No active bleeding currently. Possible urinary tract infection With low-grade fever and leukocytosis.. Patient does have prior ESBL, VRE UTIs Diarrhea rule out C. difficile infection Leukocytosis with WBC 26.2 ESRD on hemodialysis TTS left upper arm AV fistula Diabetes type 2. Insulin-dependent. Diabetic peripheral neuropathy Chronic bilateral lower extremity venous stasis and left lower extremity venous stasis ulcer. Chronic hypoxic respiratory failure on 4 L oxygen as needed Medical debility patient is bedbound and uses a wheelchair COPD Hypertension Obstructive sleep apnea not using CPAP currently Morbid obesity with BMI 36.3 GI and DVT prophylaxis with PPI and heparin subcu Plan: Patient will be continued on antibiotics ceftriaxone and follow-up urinalysis and urine culture. C. difficile toxin was ordered due to diarrhea and CT abdomen pelvis will be obtained as per ID recommendations to rule out intra-abdominal source. Continue with insulin sliding scale. Continue with home medications and nephrology consult for dialysis.. Continue to follow closely. Prognosis is guarded. Time with Patient: Greater than 30
[2023-07-06] MEDS: HEPARIN SODIUM,PORCINE 5,000 UNIT/ML 1 ML VIAL SQ SCH (23:39)
[2023-07-07 07:48] LABS: Glucose,Whole Blood 106 mg/dL (70-110)
[2023-07-07] MEDS: INSULIN ASPART (NovoLOG) 100 UNIT/ML VIAL SQ SCH ×4 (08:43→21:04)
[2023-07-07] MEDS: IOPAMIDOL CONTRAST (ORAL USE) VIAL PO PRN ×2 (08:56→10:01)
[2023-07-07] MEDS ORDERED: MIDODRINE 5 MG TAB PO PRN (09:00)
[2023-07-07] MEDS ORDERED: FUROSEMIDE 10 MG/ML 10 ML VIAL IV ONE (09:11)
--- NOTE | 2023-07-07 10:47 | P.NPCON ---
History of Present Illness - Reason for Consult end stage renal disease - History of Present Illness Reason for consultation: End-stage renal disease History of present illness: Patient is a 72-year-old male seen in renal consultation for end-stage renal disease. He is maintained on hemodialysis on Wednesday schedule via left upper extremity AV fistula. Patient did complete hemodialysis yesterday. Patient resides at rehab facility. Patient makes minimal urine however he was noted to have hematuria yesterday and was sent to the hospital for further eval. There is concern for UTI and is currently on IV antibiotics. Patient denies any abdominal discomfort. Patient has long-term history of diabetes. He also has history of coronary artery disease with cardiac stent. No vomiting or diarrhea. No fever or chills. White count noted to be elevated at 26.2. He is currently not on any steroids. Denies chest pain or shortness of breath. Vital signs are stable. General: No acute distress. HEENT: Head exam is unremarkable. LUNGS: No audible rhonchi or wheezes. HEART: Rate and Rhythm are regular. ABDOMEN: Nontender. EXTREMITITES: No edema. Chronic changes noted. Past Medical History Past Medical History: Heart Failure, COPD, Diabetes Mellitus, Hyperlipidemia, Hypertension, Osteoarthritis (OA), Pneumonia, Renal Disease, Sleep Apne a/CPAP/BIPAP, Vascular Disorder Additional Past Medical History / Comment(s): IDDM type II, 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, chronic venous ulcer left anterior lower leg, sepsis from L leg wound, chronic anemia, hyperkalemia, CKD stage IV, UTIs, incontinence, DELVIN no longer using Cpap and is now on oxygen at 4l/nc atc, possible starting of dementia, confusion at times at night, bilateral lower leg varicosities, umbilical hernia, past duodenal ulcer with repair, Hpylori, wheelchair bound, states pt may have skin issue on his buttocks. 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 Past Anesthesia/Blood Transfusion Reactions: No Reported Reaction, Motion Sickness Date of Last Stent Placement:: 10/2015 Past Psychological History: No Psychological Hx Reported Smoking Status: Never smoker Past Alcohol Use History: None Reported Past Drug Use History: None Reported - Past Family History Father Family Medical History: COPD Additional Family Medical History / Comment(s): AT AGE 64- EMPHYSEMA(SMOKER) Mother Family Medical History: Diabetes Mellitus, Hypertension Additional Family Medical History / Comment(s): LUPUS, LEG AMPUTATED. MOM IN HER 60'S Medications and Allergies Home Medications Medication Instructions Recorded Confirmed Type allopurinoL [Zyloprim] 100 mg PO DAILY@1200 04/22/15 07/06/23 History Atorvastatin [Lipitor] 20 mg PO HS 12/09/19 07/06/23 History bisacodyL [Dulcolax] 10 mg RECTAL DAILY PRN 09/07/20 07/06/23 History Ipratropium-Albuterol Nebulize 3 ml INHALATION RT-Q4H PRN 11/06/20 07/06/23 History [Duoneb 0.5 mg-3 mg/3 ml Soln] Isosorbide Mononitrate ER [Imdur] 30 mg PO DAILY 11/13/20 07/06/23 History Metoclopramide HCl [Reglan] 5 mg PO TID PRN 07/10/21 07/06/23 History Potassium Chloride ER [K-Dur 20] 20 meq PO BID@1400,2100 07/10/21 07/06/23 History Renal Vitamin Tablet 0.8mg 1 tab PO DAILY@1200 07/10/21 07/06/23 History Insulin Glargine [Lantus Vial] 10 unit SQ HS 11/07/21 07/06/23 History Acetaminophen Tab [Tylenol] 650 mg PO Q4H PRN 02/27/22 07/06/23 History Sevelamer Carbonate 1 packet PO BID@1400,2100 02/27/22 07/06/23 History chlorproMAZINE HCL 25 mg PO Q6H 02/27/22 07/06/23 History Liquacel 30 ml PO BID@1200,1700 07/06/23 07/06/23 History Loratadine [Claritin] 10 mg PO DAILY PRN 07/06/23 07/06/23 History Midodrine [ProAmatine] 5 mg PO DIRECTED PRN 07/06/23 07/06/23 History Saliva Stimulant Comb. No.3 1 spray MUCOUS MEM TID PRN 07/06/23 07/06/23 History [Biotene Moisturizing Mouth] Sevelamer Carbonate 1 packet PO SUMOWEFR@08,12,17 07/06/23 07/06/23 History Sevelamer Carbonate 1 packet PO TUTHSA@06,12,17 07/06/23 07/06/23 History amLODIPine [Norvasc] 5 mg PO BID@0800,1700 07/06/23 07/06/23 History guaiFENesin [guaiFENesin Oral 200 mg PO Q4H PRN 07/06/23 07/06/23 History Solution] Allergies Allergy/AdvReac Type Severity Reaction Status Date / Time aspirin [From Anacin] Allergy Rash/Hives Verified 07/06/23 18:55 (Dulce brand ok) Sulfa (Sulfonamide AdvReac Kidneys Verified 07/06/23 18:55 Antibiotics) sulfamethoxazole AdvReac affects Verified 07/06/23 18:55 [From Bactrim] kidneys trimethoprim [From Bactrim] AdvReac Kidneys Verified 07/06/23 18:55 Physical Exam Vitals: Vital Signs Temp Pulse Pulse Resp BP BP Pulse Ox 07/07/23 07:00 98.8 F 83 18 125/66 95 07/07/23 05:17 91 18 152/62 96 07/07/23 02:09 88 18 149/57 97 07/07/23 00:45 91 16 108/64 97 07/06/23 22:48 96 18 143/53 98 07/06/23 21:12 102 H 18 167/65 96 07/06/23 18:00 86 20 158/67 98 07/06/23 16:00 80 16 106/49 95 07/06/23 15:00 82 16 121/71 97 07/06/23 14:00 78 20 150/60 98 07/06/23 13:56 88 16 134/54 98 07/06/23 12:31 88 20 134/84 98 07/06/23 11:53 99.6 F 71 16 95/52 94 L Intake and Output 07/06/23 07/07/23 07/07/23 22:59 06:59 14:59 Other: # Voids 0 Results - Lab Results Most recent lab results Calcium 9.8 mg/dL (8.4-10.2) 07/06/23 13:29 07/06/23 13:29 07/06/23 13:29 Assessment and Plan Plan: Assessment: 1. End-stage renal disease maintained on hemodialysis on Wednesday schedule via left upper extremity AV fistula. 2. Gross hematuria concerning for UTI. On antibiotics. 3. Diabetes mellitus. 4. Coronary artery disease status post cardiac stent. Plan: Hemodialysis tomorrow. Check phosphorus level. Follow up cultures. Lasix 80 mg IV once today to try to obtain urine sample. Follow-up CAT scan results. Thank you for the consultation. I will continue to follow the patient with you during his hospital stay.
[2023-07-07 11:13] LABS: Basophils # (A) 0.06 X 10*3/uL (0.00-0.10); Basophils % (A) 0.3 %; Eosinophils # (A) 0.07 X 10*3/uL (0.04-0.35); Eosinophils % (A) 0.3 %; HCT 31.8 % (39.6-50.0); Lymphocytes # (A) 1.32 X 10*3/uL (0.90-5.00); Lymphocytes % (A) 5.8 %; MCHC 31.4 g/dL (32.0-37.0); Mean Platelet Volume 9.8 FL (9.5-12.2); Monocytes # (A) 1.35 X 10*3/uL (0.20-1.00); NRBC Per 100 WBC 0 X 10*3/uL (0.00-0.01); Neutrophils # (A) 19.59 X 10*3/uL (1.80-7.70); Neutrophils % (A) 86.5 %; Platelet Count 233 X 10*3/uL (140-440); RBC 3.03 X 10*6/uL (4.40-5.60); RDW 17.3 % (11.5-14.5); WBC 22.64 X 10*3/uL (4.50-10.00)
--- NOTE | 2023-07-07 11:16 | CT ---
EXAMINATION TYPE: CT abdomen pelvis wo con DATE OF EXAM: 07/07/2023 HISTORY: leukocytosis /vomiting CT DLP: 1676.40 mGycm. Automated Exposure Control for Dose Reduction was Utilized. TECHNIQUE: CT scan of the abdomen and pelvis is performed with oral but without IV contrast. COMPARISON: Prior CT abdomen and pelvis September 25, 2021 FINDINGS: Within the limitations of a non-contrast study, the following observations are made. LUNG BASES: Bilateral gynecomastia is noted. LIVER/GB: Cholecystectomy clips are redemonstrated. PANCREAS: No significant abnormality is seen. SPLEEN: No significant abnormality is seen. ADRENALS: No significant abnormality is seen. KIDNEYS: Marked cortical thinning and diminished size of both kidneys with interval progression from most recent prior CT. Findings consistent with end-stage chronic medical renal disease. Poorly disten ded bladder has internal fluid density greater than normal with Hounsfield units near 33. BOWEL: And oral contrast does not reach the level of the terminal ileum. No abnormal small or large b owel dilatation. Slightly gaseous prominent sigmoid colon extending to the anterior midabdomen level. Fluid in the sigmoid rectal colon which is slightly prominent GENITAL ORGANS: Prostate gland upper limits of normal in size. LYMPH NODES: No greater than 1cm abdominal or pelvic lymph nodes are appreciated. OSSEOUS STRUCTURES: Multilevel spurring and bridging osteophytes in the thoracolumbar spine redemonst rated. Bilateral pars defect L5 level with grade 1 anterolisthesis L5 on S1 is redemonstrated. And mu ltilevel facet arthropathy lower lumbar spine. OTHER: Narrow neck ventral wall probable umbilical hernia anterior midline of the pelvis redemonstrat ed containing fat and tiny mesenteric vessels is redemonstrated. Minimal calcified plaque of the abdo rosangela aorta and central iliac pelvic vessels. More severe calcified plaque of the smaller branch vess els in the visualized thighs. IMPRESSION: 1. No bowel obstruction. Fluid is seen in the slightly prominent sigmoid rectal colon consistent with mild complicated colitis and/or diarrhea. Prominent gas-filled sigmoid colon but no convincing CT ev idence for volvulus currently. 2. Interval marked progression of cortical thinning and diminished size to both kidneys consistent wi th end-stage chronic medical renal disease is noted.
[2023-07-07 11:30] LABS: ALT 13 U/L (10-49); AST 14 U/L (14-35); Albumin 4.1 g/dL (3.8-4.9); Albumin/Globulin Ratio 1.52 Ratio (1.60-3.17); Alkaline Phosphatase 109 U/L (41-126); BUN/Creat Ratio 8.02 Ratio (12.00-20.00); Blood Urea Nitrogen 48.1 mg/dL (9.0-27.0); Calcium 9.9 mg/dL (8.7-10.3); Carbon Dioxide 23.1 mmol/L (21.6-31.8); Chloride 96 mmol/L (96-109); Globulin 2.7 g/dL (1.6-3.3); Glucose 111 mg/dL (70-110); Potassium 3.8 mmol/L (3.5-5.5); Sodium 136 mmol/L (135-145); Total Bilirubin 0.3 mg/dL (0.3-1.2); Total Protein 6.8 g/dL (6.2-8.2)
[2023-07-07 11:31] LABS: Glucose,Whole Blood 185 mg/dL (70-110)
[2023-07-07] MEDS: HEPARIN SODIUM,PORCINE 5,000 UNIT/ML 1 ML VIAL SQ SCH ×3 (12:22→23:48)
[2023-07-07] MEDS: allopurinoL 100 MG TAB PO SCH (12:29)
[2023-07-07] MEDS: ISOSORBIDE MONONITRATE ER 30 MG TAB.ER.24H PO SCH (12:30)
[2023-07-07] MEDS: amLODIPine 5 MG TAB PO SCH ×2 (12:30→17:54)
[2023-07-07] MEDS ORDERED: ZINC OXIDE PASTE (Z-GUARD) 1 APPLIC TOPICAL PRN (13:21)
[2023-07-07] MEDS: SEVELAMER CARBONATE 0.8 GM PO SCH ×2 (13:23→20:25)
--- NOTE | 2023-07-07 14:45 | P.PN ---
Subjective Progress Note Date: 07/07/23 Patient is a 73-year-old male with a past medical history of ESRD on hemodialysis TTS via left upper arm AV fistula, diabetes type 2, severe bilateral peripheral neuropathy, chronic venous stasis with left lower extremity ulcer, obstructive sleep apnea not currently using CPAP, chronic hypoxic respiratory failure on 4 L oxygen via nasal cannula, prior history of ESBL, VRE UTIs was sent from [facility] due to complaints of blood in the urine which was found in the diaper and concerned about possible infection. Patient was also having low-grade temperature. Apparently his patient has been little confused since yesterday which happens usually when there is infection in the urine. Otherwise patient denies any complaints of chest pain or shortness of breath. No nausea or vomiting. No complaints of abdominal pain. No suprapubic pain. Patient states that he did have episodes of diarrhea today. Mainly loose blood. Denies any hematemesis or melena. Denies any active bleeding currently. Patient did have a full run of hemodialysis today. Patient does make small amount of urine. EKG showed sinus rhythm with low QRS voltage in precordial leads. Laboratory data showed WBC 26.2 hemoglobin 11.2 and platelets 239. MCV 102.2 and neutrophils 23.5 Sodium 139 potassium 4.3 chloride 96, BUN 36 and creatinine 4.06 Blood sugar is 117 lactic acid 2.4. Loading also not elevated. Albumin 4.2. 07/07/2023 Patient is seen and evaluated in follow-up today being followed by multiple medical consultations including nephrology and infectious disease has been consulted. Patient is continued on IV antibiotics in the form of ceftriaxone with concerns of acute urinary tract infection. Patient is end-stage renal disease hemodialysis dependent on Wednesday//Wednesday and does not usually make urine. Patient was noted to have hematuria and altered mentation at [facility] where he resides and sent here for further evaluation. Patient underwent CT abdomen pelvis per infectious disease recommendations today which shows no polyps obstruction with fluid seen in the slightly prominent sigmoid r ectal colon consistent with mild compensated colitis and/or diarrhea and prominent gas-filled sigmoid colon but no convincing CT evidence of volvulus currently with interval marked progression of cortical thinning and diminished size to both kidneys consistent with end-stage chronic medical renal disease noted. Patient at the bedside reports every time he is repositioned and moved he has multiple episodes of loose stool. Patient denies being most recently on antibiotics. Patient continues with elevated white count of 22.64, hemoglobin is stable at 10 platelet are 233, sodium is 136 with a potassium of 3.8, current BUN is 48.1 and creatinine is 6.0. Lactic acid has normalized and is 1.8. Patient did receive a dose of IV Lasix today and will be resumed on hemodialysis. Patient is currently afebrile and denies chest pain or shortness of breath. Review of systems: Constitutional: No reports of fatigue, fever, or chills Cardiovascular: No reports of chest pain or palpitations Respiratory: No reports of shortness of breath or cough GI: No reports of nausea, vomiting, reports of diarrhea : No reports of dysuria or retention reports does not make urine on hemodialysis Neurovascular: reports of generalized weakness and is mostly bedbound All medications have been reviewed PHYSICAL EXAMINATION: Patient is sitting up in the bed , no acute distress, awake alert and oriented.. Well-developed, elderly-appearing, obese HEENT: Normocephalic. Neck is supple. Pupils reactive. Nostrils clear. Oral cavity is moist. Neck reveals no JVD, carotid bruits, or thyromegaly. CHEST EXAMINATION: Trachea is central. Symmetrical expansion. Bibasilar diminished sounds. No wheezing or rhonchi. CARDIAC: Normal S1, S2 with no gallops. No murmurs ABDOMEN: Soft. Bowel sounds present. Nontender. No organomegaly. No abdominal bruits. Extremities: Bilateral lower extremity venous stasis with small ulcerations and trace edema. No clubbing or cyanosis Neurologically awake, alert, oriented x3. Patient is able to move all extremities. Skin: No rash or skin lesions. Psychiatric: Cooperative. Non-suicidal, Musculoskeletal: No joint swelling or deformity. Assessment: Hematuria noticed in the diaper. Hemodialysis patient, barely makes scanty urine. No active bleeding currently. Acute urinary tract infection, present on admission With low-grade fever and leukocytosis.. Patient does have prior ESBL, VRE UTIs Diarrhea rule out C. difficile infection Leukocytosis with WBC 26.2 ESRD on hemodialysis TTS left upper arm AV fistula Diabetes type 2. Insulin-dependent. Diabetic peripheral neuropathy Chronic bilateral lower extremity venous stasis and left lower extremity venous stasis ulcer. Chronic hypoxic respiratory failure on 4 L oxygen as needed Medical debility patient is bedbound and uses a wheelchair COPD Hypertension Obstructive sleep apnea not using CPAP currently Obesity with BMI 36.3 GI and DVT prophylaxis with PPI and heparin subcu Plan: Patient will be continued on antibiotics in the form of ceftriaxone and follow- up urinalysis and urine culture. Infectious disease following an CT abdomen ordered as mentioned previously C. difficile toxin was ordered due to diarrhea and was sent although pending at this time Await PT/OT therapy evaluation as patient resides at [facility] and will be returning there on discharge Patient to continue with hemodialysis with nephrology following Wednesday//Wednesday White blood count remains elevated although slightly improved down to 22 and patient remains afebrile. Home medications reviewed and resumed as appropriate The impression and plan of care has been dictated by Poonam Ramos, Nurse Practitioner as directed. Dr. Loy MD I have performed a history and examination and MDM of this patient, discussed the same with the dictator, and agree with the dictator's assessment and plan as written ,documented as a scribe. Based on total visit time, I have performed more than 50% of the visit. Objective - Vital Signs Vital signs: Vital Signs Temp 98.8 F 07/07/23 07:00 Pulse 83 07/07/23 07:00 Resp 18 07/07/23 07:00 BP 125/66 07/07/23 07:00 Pulse Ox 95 07/07/23 07:00 FiO2 Intake & Output 07/06/23 07/07/23 07/07/23 18:59 06:59 18:59 Weight 117.934 kg Other: # Voids 0 - Labs CBC & Chem 7: 07/07/23 08:25 07/07/23 08:25 Labs: Abnormal Lab Results - Last 24 Hours (Table) 07/06/23 07/06/23 07/06/23 Range/Units 13:29 13:29 13:29 WBC 26.2 H (3.8-10.6) k/uL RBC 3.33 L (4.30-5.90) m/uL Hgb 11.2 L (13.0-17.5) gm/dL Hct 34.0 L (39.0-53.0) % MCV 102.2 H (80.0-100.0) fL RDW 16.7 H (11.5-15.5) % Neutrophils # (Manual) 23.50 H (1.3-7.7) k/uL Monocytes # (Manual) 1.31 H (0-1.0) k/uL Metamyelocytes # (Man) 0.26 H (0) k/uL Chloride 96 L (98-107) mmol/L BUN 36 H (9-20) mg/dL Creatinine 4.06 H (0.66-1.25) mg/dL Glucose 117 H (74-99) mg/dL Plasma Lactic Acid Anthony 2.4 H* (0.7-2.0) mmol/L
[2023-07-07 17:48] LABS: Glucose,Whole Blood 143 mg/dL (70-110)
[2023-07-07 20:52] LABS: Glucose,Whole Blood 203 mg/dL (70-110)
[2023-07-07] MEDS: ATORVASTATIN 20 MG TAB PO SCH (21:04)
[2023-07-07] MEDS: INSULIN DETEMIR (LEVEMIR) 100 UNIT/ML SYR SQ SCH (21:04)
[2023-07-08] MEDS: INSULIN ASPART (NovoLOG) 100 UNIT/ML VIAL SQ SCH ×4 (06:26→21:22)
[2023-07-08 06:28] LABS: Glucose,Whole Blood 113 mg/dL (70-110)
[2023-07-08 06:59] LABS: Glucose,Whole Blood 111 mg/dL (70-110)
[2023-07-08 09:37] LABS: Anisocytosis Slight; Basophils % (A) 0 %; Eosinophils # (A) 0.2 k/uL (0-0.7); Eosinophils % (A) 1 %; HCT 31.5 % (39.0-53.0); HGB 10.6 gm/dL (13.0-17.5); Lymphocytes # (A) 0.8 k/uL (1.0-4.8); Lymphocytes % (A) 8 %; MCH 34.4 pg (25.0-35.0); MCHC 33.6 g/dL (31.0-37.0); MCV 102.5 fL (80.0-100.0); Macrocytosis Moderate; Mean Platelet Volume 7.9; Monocytes # (A) 0.5 k/uL (0-1.0); Monocytes % (A) 5 %; Neutrophils # (A) 9.2 k/uL (1.3-7.7); Neutrophils % (A) 85 %; Platelet Count 228 k/uL (150-450); RBC 3.07 m/uL (4.30-5.90); RDW 16.2 % (11.5-15.5); WBC 10.9 k/uL (3.8-10.6)
--- NOTE | 2023-07-08 12:11 | P.PN ---
Subjective Patient is seen in follow-up for end-stage renal disease. He is maintained on hemodialysis on Wednesday schedule. Tolerating dialysis well. Hemodynamically stable. On room air. No fever or chills. Vital signs are stable. General: No acute distress. HEENT: Head exam is unremarkable. LUNGS: Notable rhonchi or wheezes. HEART: Rate and Rhythm are regular. ABDOMEN: Nontender. EXTREMITITES: Chronic changes noted. Objective - Vital Signs Vital signs: Vital Signs Temp 97.7 F 07/08/23 06:55 Pulse 65 07/08/23 06:55 Resp 16 07/08/23 06:55 BP 143/66 07/08/23 06:55 Pulse Ox 98 07/08/23 06:55 FiO2 Intake & Output 07/07/23 07/08/23 07/08/23 18:59 06:59 18:59 Intake Total 360 118 Output Total 0 Balance 360 0 118 Weight 117.934 kg Intake: Oral 360 118 Output: Urine 0 Other: Voiding Method External Catheter External Catheter External Catheter # Voids 0 0 # Bowel Movements 1 1 - Labs CBC & Chem 7: 07/08/23 09:28 07/07/23 08:25 Labs: Abnormal Lab Results - Last 24 Hours (Table) 07/07/23 07/07/23 07/07/23 Range/Units 08:25 17:37 20:50 WBC (3.8-10.6) k/uL RBC (4.30-5.90) m/uL Hgb (13.0-17.5) gm/dL Hct (39.0-53.0) % MCV (80.0-100.0) fL RDW (11.5-15.5) % Neutrophils # (1.3-7.7) k/uL Lymphocytes # (1.0-4.8) k/uL POC Glucose (mg/dL) 143 H 203 H (70-110) mg/dL RBC Folate 975 H (280 - 791) ng/mL 07/08/23 07/08/23 07/08/23 Range/Units 06:24 06:58 09:28 WBC 10.9 H (3.8-10.6) k/uL RBC 3.07 L (4.30-5.90) m/uL Hgb 10.6 L (13.0-17.5) gm/dL Hct 31.5 L (39.0-53.0) % MCV 102.5 H (80.0-100.0) fL RDW 16.2 H (11.5-15.5) % Neutrophils # 9.2 H (1.3-7.7) k/uL Lymphocytes # 0.8 L (1.0-4.8) k/uL POC Glucose (mg/dL) 113 H 111 H (70-110) mg/dL RBC Folate (280 - 791) ng/mL Microbiology - Last 24 Hours (Table) 07/06/23 13:24 Blood Culture - Preliminary Blood 07/06/23 13:24 Blood Culture - Preliminary Blood Assessment and Plan Plan: Assessment: 1. End-stage renal disease maintained on hemodialysis on Wednesday schedule via left upper extremity AV fistula. 2. Gross hematuria concerning for UTI. On antibiotics. CAT scan suggestive of possible colitis. 3. Diabetes mellitus. 4. Coronary artery disease status post cardiac stent. Plan: Currently seen while undergoing hemodialysis. Next treatment on Wednesday. Phosphorus level 3.3 dated 07/07/2023. Follow up cultures.
[2023-07-08 12:19] LABS: Glucose,Whole Blood 117 mg/dL (70-110)
[2023-07-08] MEDS: HEPARIN SODIUM,PORCINE 5,000 UNIT/ML 1 ML VIAL SQ SCH ×3 (13:29→21:23)
[2023-07-08] MEDS: ISOSORBIDE MONONITRATE ER 30 MG TAB.ER.24H PO SCH (13:29)
[2023-07-08] MEDS: allopurinoL 100 MG TAB PO SCH (13:30)
[2023-07-08] MEDS: amLODIPine 5 MG TAB PO SCH ×2 (13:30→21:22)
[2023-07-08] MEDS: SEVELAMER CARBONATE 0.8 GM PO SCH (13:33)
[2023-07-08 14:26] LABS: Appearance,Urine Turbid (Clear); Bacteria,Urine Many /hpf; Bilirubin,Urine Negative (Negative); Blood,Urine Moderate (Negative); Glucose,Urine (UA) Negative (Negative); Ketones,Urine Negative (Negative); Leukocyte Esterase,Urine Large (Negative); Nitrite,Urine Negative (Negative); Protein,Urine 3+ (Negative); RBC,Urine >182 /hpf (0-5); Urobilinogen,Urine <2.0 mg/dL (<2.0); WBC,Urine >182 /hpf (0-5)
[2023-07-08 14:27] LABS: Specific Gravity,Urine 1.024 (1.001-1.035)
[2023-07-08 14:28] LABS: Color,Urine Light Yellow
[2023-07-08 17:11] LABS: Glucose,Whole Blood 175 mg/dL (70-110)
--- NOTE | 2023-07-08 17:47 | P.PN ---
Subjective Progress Note Date: 07/07/23 Principal diagnosis: Reason for follow-up is leukocytosis and possible colitis Patient is a 72-year-old male with a past medical history significant for COPD diabetes mellitus hypertension hyperlipidemia end-stage renal disease on dialysis through the left arm AV fistula patient is a [facility] resident patient was noticed to have some urine in the diaper and did have little bloody, with concern for UTI while the patient was sent to the hospital he was noticed to have elevated white count and did have episode of vomiting down in the ER. Patient also have chronic diarrhea stool for significant back negative On today's evaluation that is 07/07/2023 patient remains to be afebrile patient is breathing comfortably on room air denies any chest pain shortness of breath or cough no nausea or further vomiting no abdominal pain he did have some loose stools he did not urinate provide any urine sample. Patient white count is down to 22.6 creatinine 6.0 Objective - Vital Signs Vital signs: Vital Signs Temp 98.8 F 07/07/23 07:00 Pulse 83 07/07/23 07:00 Resp 18 07/07/23 07:00 BP 125/66 07/07/23 07:00 Pulse Ox 95 07/07/23 07:00 FiO2 Intake & Output 07/06/23 07/07/23 07/07/23 18:59 06:59 18:59 Weight 117.934 kg Other: # Voids 0 - Exam GENERAL DESCRIPTION: An elderly male lying in bed in no distress RESPIRATORY SYSTEM: Unlabored breathing , decreased breath sounds at bases HEART: S1 S2 regular rate and rhythm , ABDOMEN: Soft , no tenderness EXTREMITIES: No edema feet - Labs CBC & Chem 7: 07/08/23 09:28 07/07/23 08:25 Labs: Abnormal Lab Results - Last 24 Hours (Table) 07/06/23 07/06/23 07/06/23 Range/Units 13:29 13:29 13:29 WBC 26.2 H (3.8-10.6) k/uL RBC 3.33 L (4.30-5.90) m/uL Hgb 11.2 L (13.0-17.5) gm/dL Hct 34.0 L (39.0-53.0) % MCV 102.2 H (80.0-100.0) fL MCH (27.0-32.0) pg MCHC (32.0-37.0) g/dL RDW 16.7 H (11.5-15.5) % Immature Gran # (0.00-0.04) X 10*3/uL Neutrophils # (1.80-7.70) X 10*3/uL Neutrophils # (Manual) 23.50 H (1.3-7.7) k/uL Monocytes # (0.20-1.00) X 10*3/uL Monocytes # (Manual) 1.31 H (0-1.0) k/uL Metamyelocytes # (Man) 0.26 H (0) k/uL Chloride 96 L (98-107) mmol/L Anion Gap (4.00-12.00) mmol/L BUN 36 H (9-20) mg/dL Creatinine 4.06 H (0.66-1.25) mg/dL Est GFR (CKD-EPI) (>=60) BUN/Creatinine Ratio (12.00-20.00) Ratio Glucose 117 H (74-99) mg/dL POC Glucose (mg/dL) (70-110) mg/dL Hemoglobin A1c (<=6.0) % Plasma Lactic Acid Anthony 2.4 H* (0.7-2.0) mmol/L C-Reactive Protein (0.00-0.80) mg/dL Albumin/Globulin Ratio (1.60-3.17) Ratio 07/07/23 07/07/23 07/07/23 Range/Units 08:25 08:25 08:25 WBC 22.64 H (3.8-10.6) k/uL RBC 3.03 L (4.30-5.90) m/uL Hgb 10.0 L (13.0-17.5) gm/dL Hct 31.8 L (39.0-53.0) % MCV 105.0 H (80.0-100.0) fL MCH 33.0 H (27.0-32.0) pg MCHC 31.4 L (32.0-37.0) g/dL RDW 17.3 H (11.5-15.5) % Immature Gran # 0.25 H (0.00-0.04) X 10*3/uL Neutrophils # 19.59 H (1.80-7.70) X 10*3/uL Neutrophils # (Manual) (1.3-7.7) k/uL Monocytes # 1.35 H (0.20-1.00) X 10*3/uL Monocytes # (Manual) (0-1.0) k/uL Metamyelocytes # (Man) (0) k/uL Chloride (98-107) mmol/L Anion Gap 16.90 H (4.00-12.00) mmol/L BUN 48.1 H (9-20) mg/dL Creatinine 6.0 H (0.66-1.25) mg/dL Est GFR (CKD-EPI) 9 L (>=60) BUN/Creatinine Ratio 8.02 L (12.00-20.00) Ratio Glucose 111 H (74-99) mg/dL POC Glucose (mg/dL) (70-110) mg/dL Hemoglobin A1c 6.2 H (<=6.0) % Plasma Lactic Acid Anthony (0.7-2.0) mmol/L C-Reactive Protein 24.10 H (0.00-0.80) mg/dL Albumin/Globulin Ratio 1.52 L (1.60-3.17) Ratio 07/07/23 Range/Units 11:29 WBC (3.8-10.6) k/uL RBC (4.30-5.90) m/uL Hgb (13.0-17.5) gm/dL Hct (39.0-53.0) % MCV (80.0-100.0) fL MCH (27.0-32.0) pg MCHC (32.0-37.0) g/dL RDW (11.5-15.5) % Immature Gran # (0.00-0.04) X 10*3/uL Neutrophils # (1.80-7.70) X 10*3/uL Neutrophils # (Manual) (1.3-7.7) k/uL Monocytes # (0.20-1.00) X 10*3/uL Monocytes # (Manual) (0-1.0) k/uL Metamyelocytes # (Man) (0) k/uL Chloride (98-107) mmol/L Anion Gap (4.00-12.00) mmol/L BUN (9-20) mg/dL Creatinine (0.66-1.25) mg/dL Est GFR (CKD-EPI) (>=60) BUN/Creatinine Ratio (12.00-20.00) Ratio Glucose (74-99) mg/dL POC Glucose (mg/dL) 185 H (70-110) mg/dL Hemoglobin A1c (<=6.0) % Plasma Lactic Acid Anthony (0.7-2.0) mmol/L C-Reactive Protein (0.00-0.80) mg/dL Albumin/Globulin Ratio (1.60-3.17) Ratio Assessment and Plan (1) Leukocytosis Current Visit: Yes Status: Acute Code(s): D72.829 - ELEVATED WHITE BLOOD CELL COUNT, UNSPECIFIED SNOMED Code(s): 400505049 (2) Colitis Current Visit: Yes Status: Acute Code(s): K52.9 - NONINFECTIVE GASTROENTERITIS AND COLITIS, UNSPECIFIED SNOMED Code(s): 79326363 Plan: 1 -patient with leukocytosis and this patient has been sent to the hospital where he was noticed to have some blood in urine in the diaper patient is a dialysis patient and hardly makes any urine no suprapubic discomfort has been noticed underlying UTI less likely but not entirely excluded 2-patient apparently was also complaining of some diarrhea and will need to rule out infectious etiology , Stool for C. difficile negative. 3CT of abdominal pelvis concern for possible colitis. 4we will continue patient on Rocephin and Flagyl and monitor clinical course closely Dictation was produced using [employer] dictation software. please excuse any grammatical, word or spelling errors.
--- NOTE | 2023-07-08 17:49 | P.PN ---
Subjective Progress Note Date: 07/08/23 Principal diagnosis: Reason for follow-up is leukocytosis and possible colitis Patient is a 72-year-old male with a past medical history significant for COPD diabetes mellitus hypertension hyperlipidemia end-stage renal disease on dialysis through the left arm AV fistula patient is a [facility] resident patient was noticed to have some urine in the diaper and did have little bloody, with concern for UTI while the patient was sent to the hospital he was noticed to have elevated white count and did have episode of vomiting down in the ER. Patient also have chronic diarrhea stool for significant back negative On today's evaluation that is 07/08/2023, the patient remains to be afebrile, the patient is breathing comfortably on room air patient denies having any chest pain shortness of breath or cough no nausea vomiting, still has some diarrhea but denies any worsening Patient white count has normalized to 10.9, blood culture has been negative Objective - Vital Signs Vital signs: Vital Signs Temp 97.7 F 07/08/23 06:55 Pulse 65 07/08/23 06:55 Resp 16 07/08/23 06:55 BP 143/66 07/08/23 06:55 Pulse Ox 98 07/08/23 06:55 FiO2 Intake & Output 07/07/23 07/08/23 07/08/23 18:59 06:59 18:59 Intake Total 360 118 Output Total 0 Balance 360 0 118 Weight 117.934 kg Intake: Oral 360 118 Output: Urine 0 Other: Voiding Method External Catheter External Catheter External Catheter # Voids 0 0 # Bowel Movements 1 1 - Exam GENERAL DESCRIPTION: An elderly male lying in bed in no distress RESPIRATORY SYSTEM: Unlabored breathing , decreased breath sounds at bases HEART: S1 S2 regular rate and rhythm , ABDOMEN: Soft , no tenderness EXTREMITIES: No edema feet - Labs CBC & Chem 7: 07/08/23 09:28 07/07/23 08:25 Labs: Abnormal Lab Results - Last 24 Hours (Table) 07/07/23 07/07/23 07/07/23 Range/Units 08:25 08:25 08:25 WBC 22.64 H (4.50-10.00) X 10*3/uL RBC 3.03 L (4.40-5.60) X 10*6/uL Hgb 10.0 L (13.0-17.0) g/dL Hct 31.8 L (39.6-50.0) % MCV 105.0 H (80.0-97.0) FL MCH 33.0 H (27.0-32.0) pg MCHC 31.4 L (32.0-37.0) g/dL RDW 17.3 H (11.5-14.5) % Immature Gran # 0.25 H (0.00-0.04) X 10*3/uL Neutrophils # 19.59 H (1.80-7.70) X 10*3/uL Lymphocytes # (1.0-4.8) k/uL Monocytes # 1.35 H (0.20-1.00) X 10*3/uL Anion Gap 16.90 H (4.00-12.00) mmol/L BUN 48.1 H (9.0-27.0) mg/dL Creatinine 6.0 H (0.6-1.5) mg/dL Est GFR (CKD-EPI) 9 L (>=60) BUN/Creatinine Ratio 8.02 L (12.00-20.00) Ratio Glucose 111 H (70-110) mg/dL POC Glucose (mg/dL) (70-110) mg/dL Hemoglobin A1c 6.2 H (<=6.0) % C-Reactive Protein 24.10 H (0.00-0.80) mg/dL Albumin/Globulin Ratio 1.52 L (1.60-3.17) Ratio 07/07/23 07/07/23 07/07/23 Range/Units 11:29 17:37 20:50 WBC (4.50-10.00) X 10*3/uL RBC (4.40-5.60) X 10*6/uL Hgb (13.0-17.0) g/dL Hct (39.6-50.0) % MCV (80.0-97.0) FL MCH (27.0-32.0) pg MCHC (32.0-37.0) g/dL RDW (11.5-14.5) % Immature Gran # (0.00-0.04) X 10*3/uL Neutrophils # (1.80-7.70) X 10*3/uL Lymphocytes # (1.0-4.8) k/uL Monocytes # (0.20-1.00) X 10*3/uL Anion Gap (4.00-12.00) mmol/L BUN (9.0-27.0) mg/dL Creatinine (0.6-1.5) mg/dL Est GFR (CKD-EPI) (>=60) BUN/Creatinine Ratio (12.00-20.00) Ratio Glucose (70-110) mg/dL POC Glucose (mg/dL) 185 H 143 H 203 H (70-110) mg/dL Hemoglobin A1c (<=6.0) % C-Reactive Protein (0.00-0.80) mg/dL Albumin/Globulin Ratio (1.60-3.17) Ratio 07/08/23 07/08/23 07/08/23 Range/Units 06:24 06:58 09:28 WBC 10.9 H (4.50-10.00) X 10*3/uL RBC 3.07 L (4.40-5.60) X 10*6/uL Hgb 10.6 L (13.0-17.0) g/dL Hct 31.5 L (39.6-50.0) % MCV 102.5 H (80.0-97.0) FL MCH (27.0-32.0) pg MCHC (32.0-37.0) g/dL RDW 16.2 H (11.5-14.5) % Immature Gran # (0.00-0.04) X 10*3/uL Neutrophils # 9.2 H (1.80-7.70) X 10*3/uL Lymphocytes # 0.8 L (1.0-4.8) k/uL Monocytes # (0.20-1.00) X 10*3/uL Anion Gap (4.00-12.00) mmol/L BUN (9.0-27.0) mg/dL Creatinine (0.6-1.5) mg/dL Est GFR (CKD-EPI) (>=60) BUN/Creatinine Ratio (12.00-20.00) Ratio Glucose (70-110) mg/dL POC Glucose (mg/dL) 113 H 111 H (70-110) mg/dL Hemoglobin A1c (<=6.0) % C-Reactive Protein (0.00-0.80) mg/dL Albumin/Globulin Ratio (1.60-3.17) Ratio Microbiology - Last 24 Hours (Table) 07/06/23 13:24 Blood Culture - Preliminary Blood 07/06/23 13:24 Blood Culture - Preliminary Blood Assessment and Plan (1) Colitis Current Visit: Yes Status: Acute Code(s): K52.9 - NONINFECTIVE GASTROENTERITIS AND COLITIS, UNSPECIFIED SNOMED Code(s): 45259673 (2) Leukocytosis Current Visit: Yes Status: Acute Code(s): D72.829 - ELEVATED WHITE BLOOD CELL COUNT, UNSPECIFIED SNOMED Code(s): 738074587 (3) UTI (urinary tract infection) Current Visit: Yes Status: Acute Code(s): N39.0 - URINARY TRACT INFECTION, SITE NOT SPECIFIED SNOMED Code(s): 97297735 Plan: 1 -patient with leukocytosis and this patient has been sent to the hospital where he was noticed to have some blood in urine in the diaper patient is a dialysis patient and hardly makes any urine no suprapubic discomfort has been noticed underlying UTI less likely but not entirely excluded 2-patient apparently was also complaining of some diarrhea and will need to rule out infectious etiology , Stool for C. difficile negative. 3CT of abdominal pelvis concern for possible colitis. 4patient to continue with Rocephin and Flagyl if she will continue improvement finishing therapy short course of oral Ceftin and Flagyl discussed with the DIVISIONAL MERCHANDISING MANAGER for admitting team Dictation was produced using [employer] dictation software. please excuse any grammatical, word or spelling errors.
[2023-07-08] MEDS: metroNIDAZOLE 500 MG TAB PO SCH ×2 (18:33→21:23)
[2023-07-08 20:14] LABS: Glucose,Whole Blood 229 mg/dL (70-110)
[2023-07-08] MEDS: INSULIN DETEMIR (LEVEMIR) 100 UNIT/ML SYR SQ SCH (21:22)
[2023-07-08] MEDS: ATORVASTATIN 20 MG TAB PO SCH (21:22)
[2023-07-09] MEDS: SEVELAMER CARBONATE 0.8 GM PO SCH ×2 (00:24→15:17)
--- NOTE | 2023-07-09 06:30 | P.PN ---
Subjective Progress Note Date: 07/08/23 Patient is a 73-year-old male with a past medical history of ESRD on hemodialysis TTS via left upper arm AV fistula, diabetes type 2, severe bilateral peripheral neuropathy, chronic venous stasis with left lower extremity ulcer, obstructive sleep apnea not currently using CPAP, chronic hypoxic respiratory failure on 4 L oxygen via nasal cannula, prior history of ESBL, VRE UTIs was sent from [facility] due to complaints of blood in the urine which was found in the diaper and concerned about possible infection. Patient was also having low-grade temperature. Apparently his patient has been little confused since yesterday which happens usually when there is infection in the urine. Otherwise patient denies any complaints of chest pain or shortness of breath. No nausea or vomiting. No complaints of abdominal pain. No suprapubic pain. Patient states that he did have episodes of diarrhea today. Mainly loose blood. Denies any hematemesis or melena. Denies any active bleeding currently. Patient did have a full run of hemodialysis today. Patient does make small amount of urine. EKG showed sinus rhythm with low QRS voltage in precordial leads. Laboratory data showed WBC 26.2 hemoglobin 11.2 and platelets 239. MCV 102.2 and neutrophils 23.5 Sodium 139 potassium 4.3 chloride 96, BUN 36 and creatinine 4.06 Blood sugar is 117 lactic acid 2.4. Loading also not elevated. Albumin 4.2. 07/07/2023 Patient is seen and evaluated in follow-up today being followed by multiple medical consultations including nephrology and infectious disease has been consulted. Patient is continued on IV antibiotics in the form of ceftriaxone with concerns of acute urinary tract infection. Patient is end-stage renal disease hemodialysis dependent on Wednesday//Wednesday and does not usually make urine. Patient was noted to have hematuria and altered mentation at [facility] where he resides and sent here for further evaluation. Patient underwent CT abdomen pelvis per infectious disease recommendations today which shows no polyps obstruction with fluid seen in the slightly prominent sigmoid r ectal colon consistent with mild compensated colitis and/or diarrhea and prominent gas-filled sigmoid colon but no convincing CT evidence of volvulus currently with interval marked progression of cortical thinning and diminished size to both kidneys consistent with end-stage chronic medical renal disease noted. Patient at the bedside reports every time he is repositioned and moved he has multiple episodes of loose stool. Patient denies being most recently on antibiotics. Patient continues with elevated white count of 22.64, hemoglobin is stable at 10 platelet are 233, sodium is 136 with a potassium of 3.8, current BUN is 48.1 and creatinine is 6.0. Lactic acid has normalized and is 1.8. Patient did receive a dose of IV Lasix today and will be resumed on hemodialysis. Patient is currently afebrile and denies chest pain or shortness of breath. 07/08/2023 Patient is seen today currently receiving dialysis and maintained on antibiotics with ID following. CT more suggestive of colitis and will continue with IV abx for now and transition to oral on discharge. Cdiff was negative and patient reports continues loose stools. Patient denies any abdominal pain at this time and is tolerating diet. Plan is for return to [facility] on discharge. consider discharge planning in 24 hours. Mentation is improved. Review of systems: Constitutional: No reports of fatigue, fever, or chills Cardiovascular: No reports of chest pain or palpitations Respiratory: No reports of shortness of breath or cough GI: No reports of nausea, vomiting, reports of diarrhea : No reports of dysuria or retention reports does not make urine on hemodialysis Neurovascular: reports of generalized weakness and is mostly bedbound All medications have been reviewed PHYSICAL EXAMINATION: Patient is sitting up in the bed , no acute distress, awake alert and oriented.. Well-developed, elderly-appearing, obese HEENT: Normocephalic. Neck is supple. Pupils reactive. Nostrils clear. Oral cavity is moist. Neck reveals no JVD, carotid bruits, or thyromegaly. CHEST EXAMINATION: Trachea is central. Symmetrical expansion. Bibasilar diminished sounds. No wheezing or rhonchi. CARDIAC: Normal S1, S2 with no gallops. No murmurs ABDOMEN: Soft. Bowel sounds present. Nontender. No organomegaly. No abdominal bruits. Extremities: Bilateral lower extremity venous stasis with small ulcerations and trace edema. No clubbing or cyanosis Neurologically awake, alert, oriented x3. Patient is able to move all extremities. Skin: No rash or skin lesions. Psychiatric: Cooperative. Non-suicidal, Musculoskeletal: No joint swelling or deformity. Assessment: Hematuria noticed in the diaper. Hemodialysis patient, barely makes scanty urine. No active bleeding currently. Possible Acute urinary tract infection, present on admission With low-grade fever and leukocytosis.. Patient does have prior ESBL, VRE UTIs Colitis as noted on CT Diarrhea ruled out C. difficile infection Leukocytosis with WBC 26.2, improving ESRD on hemodialysis TTS left upper arm AV fistula Diabetes type 2. Insulin-dependent. Diabetic peripheral neuropathy Chronic bilateral lower extremity venous stasis and left lower extremity venous stasis ulcer. Chronic hypoxic respiratory failure on 4 L oxygen as needed Medical debility patient is bedbound and uses a wheelchair COPD Hypertension Obstructive sleep apnea not using CPAP currently Obesity with BMI 36.3 GI and DVT prophylaxis with PPI and heparin subcu Plan: Patient will be continued on antibiotics in the form of ceftriaxone and flagyl. Patient does not make urine. Infectious disease following an CT abdomen ordered as mentioned previously and more like features of colitis C. difficile toxin was negative and will add imodium PT/OT therapy evaluation as patient resides at [facility] and will be returning there on discharge Patient to continue with hemodialysis with nephrology following Wednesday//Wednesday, currently undergoing dialysis today White blood count significantly improved. Home medications reviewed and resumed as appropriate Possible discharge in the next 24 hours The impression and plan of care has been dictated by Poonam Ramos, Nurse Practitioner as directed. Dr. Loy MD I have performed a history and examination and MDM of this patient, discussed the same with the dictator, and agree with the dictator's assessment and plan as written ,documented as a scribe. Based on total visit time, I have performed more than 50% of the visit. Objective - Vital Signs Vital signs: Vital Signs Temp 97.7 F 07/08/23 06:55 Pulse 65 07/08/23 06:55 Resp 16 07/08/23 06:55 BP 143/66 07/08/23 06:55 Pulse Ox 98 07/08/23 06:55 FiO2 Intake & Output 07/07/23 07/08/23 07/08/23 18:59 06:59 18:59 Intake Total 360 Output Total 0 Balance 360 0 Weight 117.934 kg Intake: Oral 360 Output: Urine 0 Other: Voiding Method External Catheter External Catheter External Catheter # Voids 0 0 # Bowel Movements 1 1 - Labs CBC & Chem 7: 07/08/23 09:28 07/07/23 08:25 Labs: Abnormal Lab Results - Last 24 Hours (Table) 07/07/23 07/07/2307/07/24 Range/Units 08:25 08:25 08:25 WBC 22.64 H (4.50-10.00) X 10*3/uL RBC 3.03 L (4.40-5.60) X 10*6/uL Hgb 10.0 L (13.0-17.0) g/dL Hct 31.8 L (39.6-50.0) % MCV 105.0 H (80.0-97.0) FL MCH 33.0 H (27.0-32.0) pg MCHC 31.4 L (32.0-37.0) g/dL RDW 17.3 H (11.5-14.5) % Immature Gran # 0.25 H (0.00-0.04) X 10*3/uL Neutrophils # 19.59 H (1.80-7.70) X 10*3/uL Lymphocytes # (1.0-4.8) k/uL Monocytes # 1.35 H (0.20-1.00) X 10*3/uL Anion Gap 16.90 H (4.00-12.00) mmol/L BUN 48.1 H (9.0-27.0) mg/dL Creatinine 6.0 H (0.6-1.5) mg/dL Est GFR (CKD-EPI) 9 L (>=60) BUN/Creatinine Ratio 8.02 L (12.00-20.00) Ratio Glucose 111 H (70-110) mg/dL POC Glucose (mg/dL) (70-110) mg/dL Hemoglobin A1c 6.2 H (<=6.0) % C-Reactive Protein 24.10 H (0.00-0.80) mg/dL Albumin/Globulin Ratio 1.52 L (1.60-3.17) Ratio 07/07/23 07/07/23 07/07/23 Range/Units 11:29 17:37 20:50 WBC (4.50-10.00) X 10*3/uL RBC (4.40-5.60) X 10*6/uL Hgb (13.0-17.0) g/dL Hct (39.6-50.0) % MCV (80.0-97.0) FL MCH (27.0-32.0) pg MCHC (32.0-37.0) g/dL RDW (11.5-14.5) % Immature Gran # (0.00-0.04) X 10*3/uL Neutrophils # (1.80-7.70) X 10*3/uL Lymphocytes # (1.0-4.8) k/uL Monocytes # (0.20-1.00) X 10*3/uL Anion Gap (4.00-12.00) mmol/L BUN (9.0-27.0) mg/dL Creatinine (0.6-1.5) mg/dL Est GFR (CKD-EPI) (>=60) BUN/Creatinine Ratio (12.00-20.00) Ratio Glucose (70-110) mg/dL POC Glucose (mg/dL) 185 H 143 H 203 H (70-110) mg/dL Hemoglobin A1c (<=6.0) % C-Reactive Protein (0.00-0.80) mg/dL Albumin/Globulin Ratio (1.60-3.17) Ratio 07/08/23 07/08/23 07/08/23 Range/Units 06:24 06:58 09:28 WBC 10.9 H (4.50-10.00) X 10*3/uL RBC 3.07 L (4.40-5.60) X 10*6/uL Hgb 10.6 L (13.0-17.0) g/dL Hct 31.5 L (39.6-50.0) % MCV 102.5 H (80.0-97.0) FL MCH (27.0-32.0) pg MCHC (32.0-37.0) g/dL RDW 16.2 H (11.5-14.5) % Immature Gran # (0.00-0.04) X 10*3/uL Neutrophils # 9.2 H (1.80-7.70) X 10*3/uL Lymphocytes # 0.8 L (1.0-4.8) k/uL Monocytes # (0.20-1.00) X 10*3/uL Anion Gap (4.00-12.00) mmol/L BUN (9.0-27.0) mg/dL Creatinine (0.6-1.5) mg/dL Est GFR (CKD-EPI) (>=60) BUN/Creatinine Ratio (12.00-20.00) Ratio Glucose (70-110) mg/dL POC Glucose (mg/dL) 113 H 111 H (70-110) mg/dL Hemoglobin A1c (<=6.0) % C-Reactive Protein (0.00-0.80) mg/dL Albumin/Globulin Ratio (1.60-3.17) Ratio Microbiology - Last 24 Hours (Table) 07/06/23 13:24 Blood Culture - Preliminary Blood 07/06/23 13:24 Blood Culture - Preliminary Blood
[2023-07-09 06:31] LABS: Glucose,Whole Blood 118 mg/dL (70-110)
[2023-07-09] MEDS: INSULIN ASPART (NovoLOG) 100 UNIT/ML VIAL SQ SCH ×3 (06:33→17:39)
[2023-07-09] MEDS: amLODIPine 5 MG TAB PO SCH ×2 (08:41→17:50)
[2023-07-09] MEDS: metroNIDAZOLE 500 MG TAB PO SCH ×2 (08:41→17:49)
[2023-07-09] MEDS: HEPARIN SODIUM,PORCINE 5,000 UNIT/ML 1 ML VIAL SQ SCH ×2 (08:41→17:50)
[2023-07-09] MEDS: ISOSORBIDE MONONITRATE ER 30 MG TAB.ER.24H PO SCH (08:41)
--- NOTE | 2023-07-09 11:44 | P.PN ---
Subjective Patient is seen in follow-up for end-stage renal disease. He is maintained on hemodialysis on Wednesday schedule. Hemodynamically stable. On room air. No fever or chills. No problems with dialysis yesterday. Vital signs are stable. General: No acute distress. HEENT: Head exam is unremarkable. LUNGS: Notable rhonchi or wheezes. HEART: Rate and Rhythm are regular. ABDOMEN: Nontender. EXTREMITITES: Chronic changes noted. Objective - Vital Signs Vital signs: Vital Signs Temp 98.3 F 07/09/23 07:00 Pulse 63 07/09/23 07:00 Resp 16 07/09/23 07:00 BP 143/69 07/09/23 07:00 Pulse Ox 98 07/09/23 07:00 FiO2 Intake & Output 07/08/23 07/09/23 07/09/23 18:59 06:59 18:59 Intake Total 1208 118 236 Output Total 2500 Balance -1292 118 236 Intake: Oral 708 118 236 Hemodialysis 500 Output: Hemodialysis 2500 Other: Voiding Method External Catheter External Catheter External Catheter # Voids 1 1 - Labs CBC & Chem 7: 07/08/23 09:28 07/07/23 08:25 Labs: Abnormal Lab Results - Last 24 Hours (Table) 07/08/23 07/08/23 07/08/23 Range/Units 12:18 14:00 17:09 POC Glucose (mg/dL) 117 H 175 H (70-110) mg/dL Urine Protein 3+ H (Negative) Urine Blood Moderate H (Negative) Ur Leukocyte Esterase Large H (Negative) Urine RBC >182 H (0-5) /hpf Urine WBC >182 H (0-5) /hpf Urine WBC Clumps Many H (None) /hpf Urine Bacteria Many H (None) /hpf 07/08/23 07/09/23 Range/Units 20:13 06:28 POC Glucose (mg/dL) 229 H 118 H (70-110) mg/dL Urine Protein (Negative) Urine Blood (Negative) Ur Leukocyte Esterase (Negative) Urine RBC (0-5) /hpf Urine WBC (0-5) /hpf Urine WBC Clumps (None) /hpf Urine Bacteria (None) /hpf Microbiology - Last 24 Hours (Table) 07/06/23 13:24 Blood Culture - Preliminary Blood 07/06/23 13:24 Blood Culture - Preliminary Blood Assessment and Plan Plan: Assessment: 1. End-stage renal disease maintained on hemodialysis on Wednesday schedule via left upper extremity AV fistula. 2. Gross hematuria concerning for UTI. On antibiotics. CAT scan suggestive of possible colitis. ID following. 3. Diabetes mellitus. 4. Coronary artery disease status post cardiac stent. Plan: Hemodialysis tomorrow. Phosphorus level 3.3 dated 07/07/2023. Follow up cultures.
[2023-07-09 12:09] LABS: Glucose,Whole Blood 152 mg/dL (70-110)
[2023-07-09] MEDS: allopurinoL 100 MG TAB PO SCH (13:01)
--- NOTE | 2023-07-09 14:43 | P.DS ---
Providers Date of admission: 07/07/23 10:46 Expected date of discharge: 07/09/23 Attending physician: Clifton Connolly MD Consults: 07/06/23 16:14 Consult Physician Routine Consulting Provider: Cristian Watson Consult Reason/Comments: high wbc Do you want consulting provider notified?: Already Contacted 07/06/23 22:52 Consult Physician Routine Consulting Provider: Afshin Mcintyre Consult Reason/Comments: ESRD on HD TTS Do you want consulting provider notified?: Yes, Notify in am Primary care physician: Chance Flowers Hospital Course: Final diagnosis Hematuria noticed in the diaper. Hemodialysis patient, barely makes scanty urine. No active bleeding currently. Possible Acute urinary tract infection, present on admission With low-grade fever and leukocytosis.. Patient does have prior ESBL, VRE UTIs Colitis as noted on CT Diarrhea ruled out C. difficile infection Leukocytosis with WBC 26.2, improved ESRD on hemodialysis TTS left upper arm AV fistula Diabetes type 2. Insulin-dependent. Diabetic peripheral neuropathy Chronic bilateral lower extremity venous stasis and left lower extremity venous stasis ulcer. Chronic hypoxic respiratory failure on 4 L oxygen as needed Medical debility patient is bedbound and uses a wheelchair COPD Hypertension Obstructive sleep apnea not using CPAP currently Obesity with BMI 36.3 GI and DVT prophylaxis Discharge disposition Patient is being discharged in a stable condition with guarded prognosis to [facility]. Patient will follow-up with Dr. Flowers in the outpatient setting upon discharge. Patient is to continue with hemodialysis as scheduled and accession being on Wednesday as patient is maintained on Wednesday//Wednesday. Patient is to continue on oral Ceftin along with Flagyl for the next 10 days to complete a course Total time taken is greater than 35 minutes. Hospital course This is a 72-year-old male who was recently admitted with altered mentation with concerns of UTI and hematuria. Patient was sent from [facility] where he resides confused and was noted to have some scant amount of blood on his brief. Patient is a hemodialysis patient maintained on Wednesday//Wednesday and reports does not make urine. Patient over the last 3 days while hospitalized has made a few drops of urine at most. Patient being followed by infectious disease with concerns of colitis as noted on CT showing improvement on ceftriaxone and Flagyl and will continue on oral Ceftin and Flagyl for a 10 day course. Patient to follow-up outpatient with nephrology and primary care provider on discharge. Please refer to other consultation notes for further HPI. Patient has been cleared for discharge. Currently no reports of chest pain, shortness of breath, or palpitations. Patient is afebrile. No reports of nausea or vomiting and patient is tolerating diet. Patient will be going to [facility] today. Physical exam: Gen: This is a 72-year-old male who is awake, alert and oriented 3, well-developed, well-nourished, obese HEENT: Head is atraumatic, normocephalic. Pupils equal, round. Sclerae is anicteric. NECK: Supple. No JVD. No lymphadenopathy. No thyromegaly. LUNGS: Clear to auscultation. No wheezes or rhonchi. No intercostal retractions. HEART: Regular rate and rhythm. No murmur. ABDOMEN: Soft. Obese Bowel sounds are present. No masses. No tenderness. EXTREMITIES: No pedal edema. No calf tenderness. NEUROLOGICAL: Patient is awake, alert and oriented x3. Cranial nerves 2 through 12 are grossly intact. Diffusely weak Please refer to medication reconciliation sheet for a list of medications. The impression and plan of care has been dictated by Poonam Ramos, Nurse Practitioner as directed. Dr. Billy MD I have performed a history and examination and MDM of this patient, discussed the same with the dictator, and agree with the dictator's assessment and plan as written ,documented as a scribe. Based on total visit time, I have performed more than 50% of the visit. Patient Condition at Discharge: Fair Plan - Discharge Summary Discharge Rx Participant: No New Discharge Prescriptions: New Cefuroxime [Ceftin] 250 mg PO BID 10 Days #20 tab metroNIDAZOLE [Flagyl] 500 mg PO TID 10 Days #30 tab Heparin Sodium,Porcine (1 ml) [Heparin Sodium] 5,000 unit SQ Q8HR each INSULIN ASPART (NovoLOG) [NovoLOG (formulary)] 0 unit SQ ACHS each Continue allopurinoL [Zyloprim] 100 mg PO DAILY@1200 Atorvastatin [Lipitor] 20 mg PO HS bisacodyL [Dulcolax] 10 mg RECTAL DAILY PRN PRN Reason: Constipation Renal Vitamin Tablet 0.8mg 1 tab PO DAILY@1200 Insulin Glargine [Lantus Vial] 10 unit SQ HS Acetaminophen Tab [Tylenol] 650 mg PO Q4H PRN PRN Reason: Fever And/ Or Pain Sevelamer Carbonate 1 packet PO BID@1400,2100 Midodrine [ProAmatine] 5 mg PO DIRECTED PRN PRN Reason: Hypotension Sevelamer Carbonate 1 packet PO TUTHSA@,,17 amLODIPine [Norvasc] 5 mg PO BID@0800,1700 Ipratropium-Albuterol Nebulize [Duoneb 0.5 mg-3 mg/3 ml Soln] 3 ml INHALATION RT-Q4H PRN PRN Reason: Shortness Of Breath Isosorbide Mononitrate ER [Imdur] 30 mg PO DAILY Metoclopramide HCl [Reglan] 5 mg PO TID PRN PRN Reason: Nausea Potassium Chloride ER [K-Dur 20] 20 meq PO BID@1400,2100 guaiFENesin [guaiFENesin Oral Solution] 200 mg PO Q4H PRN PRN Reason: Cough Saliva Stimulant Comb. No.3 [Biotene Moisturizing Mouth] 1 spray MUCOUS MEM TID PRN PRN Reason: Dry Mouth Loratadine [Claritin] 10 mg PO DAILY PRN PRN Reason: Allergy Symptoms Sevelamer Carbonate 1 packet PO SUMOWEFR@,, Liquacel 30 ml PO BID@1200,1700 Discontinued chlorproMAZINE HCL 25 mg PO Q6H Discharge Medication List allopurinoL [Zyloprim] 100 mg PO DAILY@1200 04/22/15 [History] Atorvastatin [Lipitor] 20 mg PO HS 12/09/19 [History] bisacodyL [Dulcolax] 10 mg RECTAL DAILY PRN 09/07/20 [History] Ipratropium-Albuterol Nebulize [Duoneb 0.5 mg-3 mg/3 ml Soln] 3 ml INHALATION RT-Q4H PRN 11/06/20 [History] Isosorbide Mononitrate ER [Imdur] 30 mg PO DAILY 11/13/20 [History] Metoclopramide HCl [Reglan] 5 mg PO TID PRN 07/10/21 [History] Potassium Chloride ER [K-Dur 20] 20 meq PO BID@1400,2100 07/10/21 [History] Renal Vitamin Tablet 0.8mg 1 tab PO DAILY@1200 07/10/21 [History] Insulin Glargine [Lantus Vial] 10 unit SQ HS 11/07/21 [History] Acetaminophen Tab [Tylenol] 650 mg PO Q4H PRN 02/27/22 [History] Sevelamer Carbonate 1 packet PO BID@1400,2100 02/27/22 [History] Liquacel 30 ml PO BID@1200,1700 07/06/23 [History] Loratadine [Claritin] 10 mg PO DAILY PRN 07/06/23 [History] Midodrine [ProAmatine] 5 mg PO DIRECTED PRN 07/06/23 [History] Saliva Stimulant Comb. No.3 [Biotene Moisturizing Mouth] 1 spray MUCOUS MEM TID PRN 07/06/23 [History] Sevelamer Carbonate 1 packet PO SUMOWEFR@08,12,17 07/06/23 [History] Sevelamer Carbonate 1 packet PO TUTHSA@06,12,17 07/06/23 [History] amLODIPine [Norvasc] 5 mg PO BID@0800,1700 07/06/23 [History] guaiFENesin [guaiFENesin Oral Solution] 200 mg PO Q4H PRN 07/06/23 [History] Cefuroxime [Ceftin] 250 mg PO BID 10 Days #20 tab 07/09/23 [Rx] Heparin Sodium,Porcine (1 ml) [Heparin Sodium] 5,000 unit SQ Q8HR each 07/09/23 [Rx] INSULIN ASPART (NovoLOG) [NovoLOG (formulary)] 0 unit SQ ACHS each 07/09/23 [Rx] metroNIDAZOLE [Flagyl] 500 mg PO TID 10 Days #30 tab 07/09/23 [Rx] Follow up Appointment(s)/Referral(s): Chance Flowers MD [Primary Care Provider] - 1-2 days Activity/Diet/Wound Care/Special Instructions: Patient is returning to [facility] Activity as tolerated Continue hemodialysis with next session being on Wednesday for Wednesday//Wednesday schedule Continue antibiotics in the form of Ceftin twice daily and Flagyl 3 times daily for the next 10 days Continue monitoring Accu-Cheks before meals and at bedtime continue a sliding scale for now along with long-acting NovoLog sliding scale 0-150 equals 0 units 151-200 equals 2 units 201-250 equals 4 units 251-300 equals 6 units 301-350 equals 8 units 351-400 equals 10 units Please notify provider if blood sugar is 400 or above Continue following with nephrology outpatient Discharge Disposition: TRANSFER TO SNF/ECF
[2023-07-09 15:09] VITALS: BP 127/66; PULSE 78; RESP 17; TEMP 98.6
--- NOTE | 2023-07-09 16:20 | P.PN ---
Subjective Progress Note Date: 07/09/23 Principal diagnosis: Reason for follow-up is leukocytosis and possible colitis Patient is a 72-year-old male with a past medical history significant for COPD diabetes mellitus hypertension hyperlipidemia end-stage renal disease on dialysis through the left arm AV fistula patient is a jail resident patient was noticed to have some urine in the diaper and did have little bloody, with concern for UTI while the patient was sent to the hospital he was noticed to have elevated white count and did have episode of vomiting down in the ER. Patient also have chronic diarrhea stool for significant back negative On today's evaluation that is 07/09/2023, the patient continues to be afebrile the patient is breathing comfortably on room air, the patient denies any chest pain shortness of breath or cough no abdominal pain, patient mention to have an episode of vomiting however diarrhea has resolved No new labs has been obtained today, patient did have a positive UA obtained yesterday Objective - Vital Signs Vital signs: Vital Signs Temp 98.3 F 07/09/23 07:00 Pulse 63 07/09/23 07:00 Resp 16 07/09/23 07:00 BP 143/69 07/09/23 07:00 Pulse Ox 98 07/09/23 07:00 FiO2 Intake & Output 07/08/23 07/09/23 07/09/23 18:59 06:59 18:59 Intake Total 1208 118 236 Output Total 2500 Balance -1292 118 236 Intake: Oral 708 118 236 Hemodialysis 500 Output: Hemodialysis 2500 Other: Voiding Method External Catheter External Catheter External Catheter # Voids 1 1 - Exam GENERAL DESCRIPTION: An elderly male lying in bed in no distress RESPIRATORY SYSTEM: Unlabored breathing , decreased breath sounds at bases HEART: S1 S2 regular rate and rhythm , ABDOMEN: Soft , no tenderness EXTREMITIES: No edema feet - Labs CBC & Chem 7: 07/08/23 09:28 07/07/23 08:25 Labs: Abnormal Lab Results - Last 24 Hours (Table) 07/07/23 07/08/23 07/08/23 Range/Units 08:25 12:18 14:00 POC Glucose (mg/dL) 117 H (70-110) mg/dL RBC Folate 975 H (280 - 791) ng/mL Urine Protein 3+ H (Negative) Urine Blood Moderate H (Negative) Ur Leukocyte Esterase Large H (Negative) Urine RBC >182 H (0-5) /hpf Urine WBC >182 H (0-5) /hpf Urine WBC Clumps Many H (None) /hpf Urine Bacteria Many H (None) /hpf 07/08/23 07/08/23 07/09/23 Range/Units 17:09 20:13 06:28 POC Glucose (mg/dL) 175 H 229 H 118 H (70-110) mg/dL RBC Folate (280 - 791) ng/mL Urine Protein (Negative) Urine Blood (Negative) Ur Leukocyte Esterase (Negative) Urine RBC (0-5) /hpf Urine WBC (0-5) /hpf Urine WBC Clumps (None) /hpf Urine Bacteria (None) /hpf Microbiology - Last 24 Hours (Table) 07/06/23 13:24 Blood Culture - Preliminary Blood 07/06/23 13:24 Blood Culture - Preliminary Blood Assessment and Plan (1) Colitis Current Visit: Yes Status: Acute Code(s): K52.9 - NONINFECTIVE GASTROENTERITIS AND COLITIS, UNSPECIFIED SNOMED Code(s): 46826844 (2) Leukocytosis Current Visit: Yes Status: Acute Code(s): D72.829 - ELEVATED WHITE BLOOD CELL COUNT, UNSPECIFIED SNOMED Code(s): 945257251 (3) UTI (urinary tract infection) Current Visit: Yes Status: Acute Code(s): N39.0 - URINARY TRACT INFECTION, SITE NOT SPECIFIED SNOMED Code(s): 30320182 Plan: 1 -patient with leukocytosis and this patient has been sent to the hospital where he was noticed to have some blood in urine in the diaper patient is a dialysis patient and hardly makes any urine no suprapubic discomfort has been noticed underlying UTI less likely but not entirely excluded 2-patient apparently was also complaining of some diarrhea and will need to rule out infectious etiology , Stool for C. difficile negative. 3CT of abdominal pelvis concern for possible colitis. 4patient seem to have shown clinical improvement no fever and no CBC was done today culture has been negative so far finishing therapy with a oral Ceftin and Flagyl as per discussion with the CERTIFIED ORTHOTIC FITTER for admitting team Dictation was produced using [employer] dictation software. please excuse any grammatical, word or spelling errors. Time with Patient: Less than 30
[2023-07-09 17:37] LABS: Glucose,Whole Blood 138 mg/dL (70-110)
== END 2023-07-09 20:05 | DRG 391 ==
LOC: EC 11:48 → 6NMEDSUR 16:28 → OBSVTOIN 07-07 10:46
PROVIDERS: ADMIT Internal Medicine; ATTEND Internal Medicine
PROC: 5A1D70Z Performance of Urinary Filtration, Intermittent, Less than 6 Hours Per Day (ICD-10-PCS; principal; 2023-07-07)
DX: K52.9 Noninfective gastroenteritis and colitis, unspecified (principal); N18.6 End stage renal disease; N39.0 Urinary tract infection, site not specified; I13.2 Hypertensive heart and chronic kidney disease with heart failure and with stage 5 chronic kidney disease, or end stage renal disease; J96.11 Chronic respiratory failure with hypoxia; J44.9 Chronic obstructive pulmonary disease, unspecified; D64.9 Anemia, unspecified; I25.10 Atherosclerotic heart disease of native coronary artery without angina pectoris; E66.01 Morbid (severe) obesity due to excess calories; I50.9 Heart failure, unspecified; Z99.2 Dependence on renal dialysis; E11.22 Type 2 diabetes mellitus with diabetic chronic kidney disease; E11.42 Type 2 diabetes mellitus with diabetic polyneuropathy; E11.649 Type 2 diabetes mellitus with hypoglycemia without coma; E78.5 Hyperlipidemia, unspecified; R31.0 Gross hematuria; I83.029 Varicose veins of left lower extremity with ulcer of unspecified site; M19.90 Unspecified osteoarthritis, unspecified site; Z87.01 Personal history of pneumonia (recurrent); Z87.440 Personal history of urinary (tract) infections; I87.8 Other specified disorders of veins; Z68.36 Body mass index [BMI] 36.0-36.9, adult; Z87.19 Personal history of other diseases of the digestive system; Z79.899 Other long term (current) drug therapy; Z82.49 Family history of ischemic heart disease and other diseases of the circulatory system; Z82.5 Family history of asthma and other chronic lower respiratory diseases; Z86.19 Personal history of other infectious and parasitic diseases; Z87.11 Personal history of peptic ulcer disease; G47.33 Obstructive sleep apnea (adult) (pediatric); Z95.5 Presence of coronary angioplasty implant and graft; Z88.6 Allergy status to analgesic agent; Z88.2 Allergy status to sulfonamides; Z74.01 Bed confinement status; Z99.3 Dependence on wheelchair
CPT/HCPCS: 36415; 71045; 74176; 80053; 81001; 82747; 83036; 83605; 84100; 84443; 85025; 85610; 85730; 86140; 87040; 87045; 87046; 87324; 90935; 93005